=== PATIENT | male | born 1935 | race Caucasian/White ===

== ENCOUNTER 2018-03-12 06:34 | Emergency (ER) | payer MEDICARE, SELFPAY ==
[2018-03-12 06:37] VITALS: BP 157/100; PULSE 53; RESP 20; TEMP 36.6; O2SAT 97; BMI 35.6
--- NOTE | 2018-03-12 06:44 | XR_ITS ---
XR chest 2V HISTORY: ITS.REASON: anxiety ORDERING PHYSICIAN: Cortez Knight MD PATIENT AGE: 82 years COMPARISON: 12/27/2015 FINDINGS: Unremarkable cardiovascular structures. Right hemidiaphragm is slightly elevated. Lungs are clear of acute infiltrate. There is minimal nodularity along the left heart border inferiorly of questionable clinical significance. No acute bony anomalies. There are mild degenerative changes of the thoracic spine. Prior right shoulder replacement. IMPRESSION: No acute finding. Nodularity along left heart border inferiorly questioned clinical significance. Consider follow-up to confirm stability
[2018-03-12 07:00] LABS: Basophils % 0.3 % (0.1-2.0); Eosinophils # 0.1 K/mm3 (0.0-0.4); Eosinophils % 1.9 % (0.1-12.0); Hematocrit 41.2 % (42.0-52.0); Hemoglobin 13.4 g/dL (14.1-18.0); Lymphocytes # 2.1 K/mm3 (0.7-4.5); Lymphocytes % 27.4 K/mm3 (10-50); Mean Corpuscular HGB Conc 32.6 g/dL (31.8-35.4); Mean Corpuscular Volume 94.9 fl (80-94); Mean Platelet Volume 7.6 fl (7.4-10.4); Monocytes # 0.5 K/mm3 (0.1-1.0); Monocytes % 6.1 % (1.7-9.3); Neutrophils # 4.9 K/mm3 (1.8-7.8); Neutrophils % 64.3 % (37.0-80.0); Platelet Count 263 K/mm3 (142-424); Red Blood Count 4.34 M/mm3 (4.60-6.20); Red Cell Distribution Width 13.3 % (11.5-17.5); White Blood Count 7.6 K/mm3 (4.8-10.8)
[2018-03-12 07:11] LABS: Alanine Aminotransferase 23 U/L (12-78); Albumin Level 3.7 gm/dL (3.4-5.0); Alkaline Phosphatase 81 U/L (46-116); Anion Gap 14.6 mEq/L (5-15); Aspartate Amino Transferase 17 U/L (15-37); Bilirubin,Total 0.6 mg/dL (0.2-1.0); Blood Urea Nitrogen 15 mg/dL (7-18); Calcium 8.5 mg/dL (8.5-10.1); Carbon Dioxide 24 mmol/L (21.0-32.0); Chloride 105 mmol/L (98-107); Creatinine Clearance Estimated 108 mL/min (0-300); Creatinine,Serum 1.03 mg/dL (0.70-1.30); Estimated Glomerular Filt Rate 69 ml/min (>60); GFR (African American) 84 ML/MIN (>60); Globulin 3.6 gm/dl (1.3-3.2); Glucose 117 mg/dL (74-106); Potassium 3.6 mmoL/L (3.5-5.1); Sodium 140 mmol/L (136-145); Total Protein,Serum 7.3 gm/dL (6.4-8.2)
[2018-03-12 07:23] LABS: CKMB Relative Index 1.8 U/L (0-4.0); Creatine Kinase 124 U/L (39-308); Creatine Kinase MB 2.2 ng/ml (0.0-3.6); Troponin I < 0.02 ng/ml (0.00-0.06)
[2018-03-12 08:05] VITALS: BP 142/75; PULSE 55; RESP 18; O2SAT 95
--- NOTE | 2018-03-12 08:07 | HMH.EDDIZZ ---
ED Disposition Condition on Discharge: Good - Critical Care Critical Care Time: No <Cortez Knight - Last Filed: 03/12/18 08:20> Condition on Discharge: Fair - Critical Care Critical Care Time: No <Tila Michelle - Last Filed: 03/12/18 09:51> Clinical Impression: Dizziness, Bradycardia, Polypharmacy, Depression, Abdominal pain of unknown etiology, Ethmoid sinusitis, Gaseous distention of intestine determined by X-ray Disposition: Home, Self-Care Additional Instructions: 1- plenty of Gatorade. 2- follow up with Dr Paige. 3- outpatient GB US. 4- see [facility] 6th floor. 5- return for fever, vomiting, or if abdominal pain returns. 6-given copies of EKG x-ray reports and lab reports to review with Dr. paige on 1030 AM appointment today as scheduled. Prescriptions: Simethicone [Bicarsim] 80 mg PO Q6HP PRN #24 tab PRN Reason: Dyspnea Amoxicillin [Amoxicillin 500mg Cap] 500 mg PO TID #21 cap Referrals: Sulma Paige MD [Staff Physician] - Attestation: On 03/12/18, the high probability of a clinically significant, sudden or life threatening deterioration of the following system(s) required my full and direct attention, intervention and personal management. The time I documented below is in addition to time spent performing reported procedures but includes the following listed in this critical care notation. Medical Decision Making - Medical Records Medical records reviewed: Yes: I reviewed the patient's medical records. - Jose Antonio Inquiry Pt receiving controlled substance: No - Lab Data Lab results reviewed: Yes: I reviewed the patient's lab results. Result diagrams: 03/12/18 06:50 03/12/18 06:50 - Radiology Data #1 Image(s): Chest Image Reviewed: Yes I reviewed the patient's radiology image Preliminary Findings: Normal/NAD - ECG Data Tracing #1 Arrhythmias present: sinus renée Ischemic changes: non-specific ST-T wave changes <Cortez Knight - Last Filed: 03/12/18 08:20> - Jose Antonio Inquiry Pt receiving controlled substance: No Jose Antonio was queried for this patient: No - Lab Data Result diagrams: 03/12/18 06:50 03/12/18 06:50 - Radiology Data #1 Image(s): Chest, Abdomen Image Reviewed: Yes I have reviewed radiologist's interpretation Preliminary Findings: Abnormal - CT Data CT Scan: Head Time Received: 09:[address] Reviewed: Yes: I have viewed the radiologist's interpretation Preliminary Findings: Normal/NAD <Tila Michelle - Last Filed: 03/12/18 09:51> Vital Signs: 03/12/18 06:37 03/12/18 08:05 Temperature 97.8 F Temperature Source Oral Pulse Rate [Right Radial] 53 L 55 L Respiratory Rate 20 18 Blood Pressure [Right Arm] 157/100 142/75 Blood Pressure Mean [Right Arm] 119 97 Blood Pressure Source [Right Arm] Automatic Cuff Blood Pressure Position [Right Arm] Sitting 02 Sat by Pulse Oximetry 97 95 Oxygen Delivery Method Room Air - Lab Data Lab Results 03/12/18 06:50: WBC 7.6, RBC 4.34 L, Hgb 13.4 L, Hct 41.2 L, MCV 94.9 H, MCH 31.0, MCHC 32.6, RDW 13.3, Plt Count 263, MPV 7.6, Neut % (Auto) 64.3, Lymph % (Auto) 27.4, [place] % (Auto) 6.1, Eos % (Auto) 1.9, Baso % (Auto) 0.3, Neut # (Auto) 4.9, Lymph # (Auto) 2.1, [place] # (Auto) 0.5, Eos # (Auto) 0.1, Baso # (Auto) 0.0 03/12/18 06:50: Sodium 140, Potassium 3.6, Chloride 105, Carbon Dioxide 24, Anion Gap 14.6, BUN 15, Creatinine 1.03, Estimated Creat Clear 108, Estimated GFR 69, Est GFR ( Amer) 84, Glucose 117 H, Calcium 8.5, Total Bilirubin 0.6, AST 17, ALT 23, Alkaline Phosphatase 81, Total Protein 7.3, Albumin 3.7, Globulin 3.6 H, Albumin/Globulin Ratio 1.0 L 03/12/18 06:50: Total Creatine Kinase 124, CK-MB (CK-2) 2.2, CK-MB (CK-2) Rel Index 1.8, Troponin I < 0.02 03/12/18 07:56: POC Glucose 129 H 03/12/18 08:20: Urine Color Yellow, Urine Appearance Clear, Urine pH 6.5, Ur Specific [place] 1.010, Urine Protein Negative, Urine Glucose (UA) Negative, Urine Ketones Negative, Urine Bl
--- NOTE | 2018-03-12 08:11 | ED_ITS ---
ED Disposition Condition on Discharge: Good - Critical Care Critical Care Time: No <Cortez Knight - Last Filed: 03/12/18 08:20> Condition on Discharge: Fair - Critical Care Critical Care Time: No <Tila Michelle - Last Filed: 03/12/18 09:51> Clinical Impression: Dizziness, Bradycardia, Polypharmacy, Depression, Abdominal pain of unknown etiology, Ethmoid sinusitis, Gaseous distention of intestine determined by X-ray Disposition: Home, Self-Care Additional Instructions: 1- plenty of Gatorade. 2- follow up with Dr Paige. 3- outpatient GB US. 4- see [facility] 6th floor. 5- return for fever, vomiting, or if abdominal pain returns. 6-given copies of EKG x-ray reports and lab reports to review with Dr. paige on 1030 AM appointment today as scheduled. Prescriptions: Simethicone [Bicarsim] 80 mg PO Q6HP PRN #24 tab PRN Reason: Dyspnea Amoxicillin [Amoxicillin 500mg Cap] 500 mg PO TID #21 cap Referrals: Sulma Paige MD [Staff Physician] - Attestation: On 03/12/18, the high probability of a clinically significant, sudden or life threatening deterioration of the following system(s) required my full and direct attention, intervention and personal management. The time I documented below is in addition to time spent performing reported procedures but includes the following listed in this critical care notation. Medical Decision Making - Medical Records Medical records reviewed: Yes: I reviewed the patient's medical records. - Jose Antonio Inquiry Pt receiving controlled substance: No - Lab Data Lab results reviewed: Yes: I reviewed the patient's lab results. Result diagrams: 03/12/18 06:50 03/12/18 06:50 - Radiology Data #1 Image(s): Chest Image Reviewed: Yes I reviewed the patient's radiology image Preliminary Findings: Normal/NAD - ECG Data Tracing #1 Arrhythmias present: sinus renée Ischemic changes: non-specific ST-T wave changes <Cortez Knight - Last Filed: 03/12/18 08:20> - Jose Antonio Inquiry Pt receiving controlled substance: No Jose Antonio was queried for this patient: No - Lab Data Result diagrams: 03/12/18 06:50 03/12/18 06:50 - Radiology Data #1 Image(s): Chest, Abdomen Image Reviewed: Yes I have reviewed radiologist's interpretation Preliminary Findings: Abnormal - CT Data CT Scan: Head Time Received: 09:[address] Reviewed: Yes: I have viewed the radiologist's interpretation Preliminary Findings: Normal/NAD <Tila Michelle - Last Filed: 03/12/18 09:51> Vital Signs: 03/12/18 06:37 03/12/18 08:05 Temperature 97.8 F Temperature Source Oral Pulse Rate [Right Radial] 53 L 55 L Respiratory Rate 20 18 Blood Pressure [Right Arm] 157/100 142/75 Blood Pressure Mean [Right Arm] 119 97 Blood Pressure Source [Right Arm] Automatic Cuff Blood Pressure Position [Right Arm] Sitting 02 Sat by Pulse Oximetry 97 95 Oxygen Delivery Method Room Air - Lab Data Lab Results 03/12/18 06:50: WBC 7.6, RBC 4.34 L, Hgb 13.4 L, Hct 41.2 L, MCV 94.9 H, MCH 31.0, MCHC 32.6, RDW 13.3, Plt Count 263, MPV 7.6, Neut % (Auto) 64.3, Lymph % ( Auto) 27.4, Yell % (Auto) 6.1, Eos % (Auto) 1.9, Baso % (Auto) 0.3, Neut # (Auto ) 4.9, Lymph # (Auto) 2.1, Yell # (Auto) 0.5, Eos # (Auto) 0.1, Baso # (Auto) 0.0 03/12/18 06:50: Sodium 140, Potassium 3.6, Chloride 105, Carbon Dioxide 24, Anion Gap 14.6, BUN 15, Cr
[2018-03-12 08:15] LABS: POC Glucose,Bedside 129 (70-110)
[2018-03-12 08:28] LABS: Appearance,Urine CLEAR (Clear); Bilirubin,Urine Negative (Negative); Blood, Urine Negative (Negative); Color,Urine YELLOW (Yellow); Glucose,Urine (UA) Negative (Negative); Ketones,Urine Negative (Negative); Leukocyte Esterase,Urine Negative (Negative); Microscopic, Urine URINE MICROSCOPIC (MICROSCOPIC); Nitrate,Urine Negative (Negative); PH,Urine 6.5 (5.0-8.5); Protein,Urine Negative (Negative); Urobilinogen,Urine 0.2 EU/dl (0.2)
--- NOTE | 2018-03-12 08:44 | CT_ITS ---
CT head/brain wo con HISTORY: Dizziness ITS.REASON: dizziness ORDERING PHYSICIAN: Cortez Knight MD PATIENT AGE: 82 years COMPARISON: 01/07/2016 TECHNIQUE: Axial images obtained without contrast. Brain and bone windows reviewed. All CT scans at the facility use one or more dose reduction, viz: automated exposure control; ma/kV adjustment per patient size (including targeted exams where dose is matched to indication; i.e. head); or iterative reconstruction technique. FINDINGS: No midline shift, mass effect, intracranial hemorrhage, hydrocephalus, or extra-axial fluid collection is evident. There is generalized atrophy. The calvarium has an unremarkable appearance. No mastoid effusion. Mucosal thickening involves the ethmoid sinuses.. IMPRESSION: 1. No acute intracranial finding. 2. Ethmoid sinus disease
[2018-03-12 08:46] LABS: Bacteria,Urine Trace /lpf
--- NOTE | 2018-03-12 09:00 | XR_ITS ---
XR abdomen min 2V HISTORY: ITS.REASON: pain ORDERING PHYSICIAN: Cortez Knight MD PATIENT AGE: 82 years COMPARISON: None FINDINGS: Bowel gas pattern is nonspecific. There are gas-filled loops of small and large bowel. There is an air-fluid level of the small bowel in the mid abdominal region. Nonspecific. No free air evident. Postsurgical changes are present involving the lumbar spine. There are degenerative changes of the hips. IMPRESSION: Nonspecific bowel gas pattern with gas-filled loops of small and large bowel. The small bowel does not appear distended. There are a few air-fluid levels in the small bowel.
--- NOTE | 2018-03-12 09:11 | PC.NURSE ---
Pt to CT
[2018-03-12 09:49] LABS: Occult Blood,Stool Negative (Negative)
[2018-03-12 09:55] VITALS: BP 100/51; PULSE 64; RESP 20; TEMP 36.6; O2SAT 98
== END 2018-03-12 09:55 | disposition home or self-care (01) ==
PROVIDERS: Emergency Medicine; Emergency Provider Emergency Medicine; Family Provider Family Medicine
DX: J32.2 Chronic ethmoidal sinusitis (principal); K63.89 Other specified diseases of intestine; F32.9 Major depressive disorder, single episode, unspecified; I10 Essential (primary) hypertension; Z88.7 Allergy status to serum and vaccine; E11.9 Type 2 diabetes mellitus without complications; Z79.84 Long term (current) use of oral hypoglycemic drugs
CPT/HCPCS: 70450; 71046; 74019; 80053; 81001; 82272; 82550; 82553; 82962; 84484; 85025; 93005; 99284; G0328

== ENCOUNTER 2018-05-08 08:00 | Outpatient (RCR) | payer MEDICARE, SELFPAY | END 2018-05-08 11:34 | disposition home or self-care (01) | LOC: OT 08:00 | PROVIDERS: Family Provider Family Medicine; Visit Provider Orthopaedic Surgery | DX: Z97.11 Presence of artificial right arm (complete) (partial) (principal); M19.019 Primary osteoarthritis, unspecified shoulder; M19.011 Primary osteoarthritis, right shoulder; M75.101 Unspecified rotator cuff tear or rupture of right shoulder, not specified as traumatic | CPT/HCPCS: 97110; 97166 ==

== ENCOUNTER 2019-01-21 09:00 | Outpatient (RCR) | payer MEDICARE, SELFPAY | END 2019-01-21 16:00 | disposition home or self-care (01) | LOC: PT 09:00 | PROVIDERS: Visit Provider Family Medicine | DX: R26.89 Other abnormalities of gait and mobility (principal) | CPT/HCPCS: 97110; 97112; 97116; 97163 ==

== ENCOUNTER 2020-01-16 09:33 | Emergency (ER) | payer MEDICARE, SELFPAY ==
[2020-01-16 09:34] VITALS: BP 145/71; PULSE 67; RESP 19; TEMP 36.8; O2SAT 96; BMI 34.0
[2020-01-16 09:57] VITALS: BP 123/75; PULSE 70; O2SAT 95
--- NOTE | 2020-01-16 10:23 | HMH.EDWNDL ---
ED Disposition Clinical Impression: Finger laceration Qualifiers: Encounter type: initial encounter Finger: middle finger Damage to nail status: without damage Foreign body presence: without foreign body Laterality: left Qualified Code(s): S61.213A - Laceration without foreign body of left middle finger without damage to nail, initial encounter Disposition: Home, Self-Care Condition on Discharge: Good Instructions: DI for Laceration Repair Referrals: Natan Washington [Primary Care Provider] - 3 days - Critical Care Critical Care Time: No Attestation: On 01/16/20, the high probability of a clinically significant, sudden or life threatening deterioration of the following system(s) required my full and direct attention, intervention and personal management. The time I documented below is in addition to time spent performing reported procedures but includes the following listed in this critical care notation. Medical Decision Making - Medical Records Medical records reviewed: Yes: I reviewed the patient's medical records. - Jose Antonio Inquiry Pt receiving controlled substance: No Vital Signs: 01/16/20 09:34 01/16/20 09:57 Temperature 98.3 F Temperature Source Oral Pulse Rate [Radial] 67 70 Respiratory Rate 19 Blood Pressure [Right Arm] 145/71 H 123/75 Blood Pressure Mean [Right Arm] 95 91 Blood Pressure Source [Right Arm] Automatic Cuff Automatic Cuff Blood Pressure Position [Right Arm] Sitting Sitting 02 Sat by Pulse Oximetry 96 95 Oxygen Delivery Method Room Air Room Air Medical Decision Narrative: Laceration with no tendon involvement, no foreign body. Repaired as below. Discharged home to follow-up outpatient with primary care provider for wound check and suture removal. Wound/Laceration HPI - General Chief Complaint: Wound/Laceration Stated Complaint: [id number] lac to middle finger,left hand Time Seen by Provider: 01/16/20 10:03 Mode of Arrival: Ambulatory Source of Information: Patient Limitations: No Limitations Description of Symptoms (Recalled from ER Triage Doc. by RN): Cut left middl finger - History of Present Illness HPI narrative: This is an 84-year-old male ambidextrous who presents to the emergency department for evaluation of laceration on the palmar surface of the left long finger occurred just prior to arrival. He was using a tool at home and accidentally caught his finger in the tool. He has not had a recent tetanus update, but has this listed as an allergy. He does not complain of any decreased mobility that finger. - Related Data Home Medications Medication Instructions Recorded Confirmed furosemide 20 mg tablet 20 mg PO DAILY PRN 90 Days tab 01/31/18 10/17/19 Tamsulosin HCl [Flomax 0.4mg 0.4 mg PO HS 03/12/18 10/17/19 capsule] buspirone 5 mg tablet 5 mg PO DAILY 30 Days #90 04/08/18 10/17/19 Sitagliptin Phosphate [Januvia 100 mg PO DAILY 09/14/18 10/17/19 100mg tablet] atorvastatin 40 mg tablet 20 mg PO ONCE 90 Days #45 tab 12/12/18 10/17/19 gabapentin 800 mg tablet 800 mg PO BID 90 Days #180 tab 12/12/18 10/17/19 glipizide 5 mg tablet, extended 5 mg PO DAILY 90 Days #90 tab 12/12/18 10/17/19 release 24 hr potassium chloride 20 mEq 1 tab PO DAILY 90 Days #90 tab 12/12/18 10/17/19 tablet,extended release(part/cryst) Allergies Allergy/AdvReac Type Severity Reaction Status Date / Time tetanus and diphtheria Allergy Intermediate I-HIVES Verified 10/17/19 08:21 toxoids [TETANUS & DIPHTHERIA TOXOIDS] [facility] History - Hepatitis A Screen Drug use history?: No High risk sexual behaviors?: No History of sexually transmitted infection?: No Currently employed?: No Childcare worker?: No Do you have indoor plumbing?: Yes Do you have electricity?: Yes Attestation statement:: This patient has been screened for Hepatitis A risk factors. I have reviewed the patient's past medical history: Yes Medical History: Reports:: Anxiety, Depr
[2020-01-16 10:37] VITALS: BP 120/85; PULSE 85; RESP 20; TEMP 36.8; O2SAT 98
== END 2020-01-16 10:50 | disposition home or self-care (01) ==
PROVIDERS: Emergency Provider Emergency Medicine; PCP Family Medicine
DX: S61.213A Laceration without foreign body of left middle finger without damage to nail, initial encounter (principal); W26.9XXA Contact with unspecified sharp object(s), initial encounter; Y92.019 Unspecified place in single-family (private) house as the place of occurrence of the external cause; E11.9 Type 2 diabetes mellitus without complications; F41.8 Other specified anxiety disorders; E78.5 Hyperlipidemia, unspecified; I10 Essential (primary) hypertension; K21.9 Gastro-esophageal reflux disease without esophagitis; Z79.899 Other long term (current) drug therapy; Z88.7 Allergy status to serum and vaccine
CPT/HCPCS: 12001; 96372; 99282

== ENCOUNTER 2020-02-02 08:35 | Emergency (ER) | payer MEDICARE, SELFPAY ==
[2020-02-02 08:37] VITALS: BP 133/87; PULSE 87; RESP 18; TEMP 36.8; O2SAT 100; BMI 33.9
[2020-02-02 08:49] VITALS: BP 130/87; PULSE 80; RESP 20; TEMP 36.8; O2SAT 98
== END 2020-02-02 08:51 | disposition home or self-care (01) ==
PROVIDERS: Emergency Provider Family Medicine; PCP Family Medicine
DX: S61.213D Laceration without foreign body of left middle finger without damage to nail, subsequent encounter (principal)
CPT/HCPCS: 99281

== ENCOUNTER 2020-02-07 12:20 | Emergency (ER) | payer MEDICARE, SELFPAY ==
[2020-02-07 12:30] VITALS: BP 125/67; PULSE 66; RESP 18; TEMP 36.7; O2SAT 96; BMI 34.4
--- NOTE | 2020-02-07 12:42 | HMH.EDGENADL ---
ED Disposition Clinical Impression: Forehead laceration Qualifiers: Encounter type: initial encounter Qualified Code(s): S01.81XA - Laceration without foreign body of other part of head, initial encounter Disposition: Home, Self-Care Condition on Discharge: Good Instructions: DI for Laceration Repair, DI for Closed Head Injury Additional Instructions: Additional instructions for FACIAL LACERATION: Clean the wound daily with soap and water. You may shower. Apply a thin film of antibiotic ointment such as neosporin or triple antibiotic after showering. Avoid submerging the wound, no swimming. See your primary care physician or return to the [facility] in 5 days for suture removal. The [facility] is open 1 PM to 9 PM 7 days a week. Return if any signs of infection including increasing pain, pus drainage, swelling, redness, red streaks, or fever. Additional instructions for HEAD INJURY: See your physician as soon as possible for further evaluation. Return immediately if severe headache, vomiting, problems with vision or speech, numbness or weakness of the extremities, or severe neck pain. Referrals: Natan Washington [Primary Care Provider] - - Critical Care Critical Care Time: No Attestation: On 02/07/20, the high probability of a clinically significant, sudden or life threatening deterioration of the following system(s) required my full and direct attention, intervention and personal management. The time I documented below is in addition to time spent performing reported procedures but includes the following listed in this critical care notation. Medical Decision Making - Jose Antonio Inquiry Pt receiving controlled substance: No Vital Signs: 02/07/20 12:30 Temperature 98.1 F Temperature Source Oral Pulse Rate [Left Radial] 66 Respiratory Rate 18 Blood Pressure [Left Arm] 125/67 Blood Pressure Mean [Left Arm] 86 Blood Pressure Source [Left Arm] Automatic Cuff Blood Pressure Position [Left Arm] Sitting 02 Sat by Pulse Oximetry 96 Oxygen Delivery Method Room Air Orders (Tests/Meds): ED MEDICATIONS Discontinued Medications Generic Name Dose Route Start Last Admin Trade Name Freq PRN Reason Stop Dose Admin Lidocaine/Epinephrine 10 ml 02/07/20 12:52 02/07/20 13:02 Lidocaine 2% W/Epi 1:100,000 20ml Vial IJ 02/07/20 12:53 5 cc ONCE ONE Administration Neomycin/Polymyxin/Bacitracin 1 each 02/07/20 12:55 02/07/20 13:28 Neosporin Ointment 0.9gm Udp TP 02/07/20 12:56 1 each ONCE ONE Administration Tetanus/Diphtheria Toxoids 0.5 ml 02/07/20 13:31 02/07/20 13:44 Tenivac 0.5ml Syringe IM 02/07/20 13:32 0.5 ml .ONCE ONE Administration Medical Decision Narrative: Discussed tetanus immunization and prophylaxis with patient, son, and pharmacist Chirag. On further discussion, the patient says the last time he got a tetanus immunization, the doctor told him it was good for 10 years. His son thinks that this was 10 or more years ago. From this history, it sounds as if he has received tetanus toxoid without difficulty. His son would really like him to get tetanus immunization. The patient is agreeable to tetanus diphtheria immunization. I discussed this with Chirag who thinks this is appropriate. General Adult HPI - General Stated complaint: ao fell and cut head elbow and arm Time Seen by Provider: 02/07/20 12:42 Mode of Arrival: Ambulatory Limitations: No Limitations Description of Symptoms (Recalled from ER Triage Doc. by RN): Pt reports he was working on a mower was using pipe wrench lost his balance r/t the way he was pulling on the tool causing him to fall. Pt reports he hit his head on the work bench. Pt has an approx 1 inch laceration to R side of forehead, skin tear to R elbow and R forearm. Pt denies LOC. - History of Present Illness HPI narrative: The patient fell when his pipe wrench slipped and hit his head on a drill press and fell to the grou
--- NOTE | 2020-02-07 13:03 | PC.NURSE ---
at bedside suturing.
--- NOTE | 2020-02-07 13:30 | PC.NURSE ---
Dr Cooley speaking with Chirag in pharmacy at this time.
[2020-02-07 14:32] VITALS: BP 118/50; PULSE 66; RESP 16; TEMP 36.7; O2SAT 95
== END 2020-02-07 14:33 | disposition home or self-care (01) ==
PROVIDERS: Emergency Provider Emergency Medicine; PCP Family Medicine
DX: S01.81XA Laceration without foreign body of other part of head, initial encounter (principal); Z23 Encounter for immunization; W01.10XA Fall on same level from slipping, tripping and stumbling with subsequent striking against unspecified object, initial encounter; Y92.89 Other specified places as the place of occurrence of the external cause; S50.311A Abrasion of right elbow, initial encounter; S50.811A Abrasion of right forearm, initial encounter; F41.8 Other specified anxiety disorders; K21.9 Gastro-esophageal reflux disease without esophagitis; E11.9 Type 2 diabetes mellitus without complications; I10 Essential (primary) hypertension; E78.5 Hyperlipidemia, unspecified; Z87.442 Personal history of urinary calculi
CPT/HCPCS: 12013; 90471; 90714; 99281

== ENCOUNTER 2020-04-11 06:46 | Emergency (ER) | payer MEDICARE, SELFPAY ==
[2020-04-11] VITALS (8 sets, daily range): BP systolic 108–147; BP diastolic 59–93; PULSE 51–58; RESP 16–18; TEMP 36.6–36.8; O2SAT 93–98; BMI 34.0
--- NOTE | 2020-04-11 06:42 | ECG_ITS ---
APPROVED REPORT Exam: Resting ECG HR:52 bpm ECG Measurements Heart Rate 52 AXES WV 252 P 74 QRSd 132 QRS 7 QT 442 T 6 QTc 411 <Conclusion> Sinus bradycardia with 1st degree AV block Left bundle branch block Abnormal ECG Electronically signed by : Talon Ray, 04/12/2020 09:06:03
--- NOTE | 2020-04-11 06:57 | XR_ITS ---
PROCEDURE: XR CHEST 2V CLINICAL HISTORY: chest pain and pain down both arms COMPARISON: CXR1 CHEST-PORTABLE from 02/21/2013 CXR1 CHEST-PORTABLE from 12/27/2015 CXR2V XR chest 2V from 03/12/2018 CT ANGIO CHEST from 07/30/2019 FINDINGS: The cardiomediastinal silhouette and pulmonary vascularity are within normal limits. The lungs are clear without infiltrates, suspicious nodules, or pleural effusions. There are calcified hilar nodes bilaterally. No acute bony abnormalities. 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 IMPRESSION: No acute findings. Dictated by: Dr. Jens Benavides MD 04/11/2020 07:[address] Jens Benavides MD in [place] 04/11/2020 07:54
[2020-04-11 07:10] LABS: Basophils # 0.1 K/mm3 (0-0.2); Basophils % 0.6 % (0.1-2.0); Eosinophils # 0.2 K/mm3 (0.0-0.4); Eosinophils % 2.2 % (0.1-12.0); Hematocrit 39.2 % (42.0-52.0); Hemoglobin 13.8 g/dL (14.1-18.0); Mean Corpuscular HGB Conc 35.1 g/dL (31.8-35.4); Mean Corpuscular Hemoglobin 32.7 pg (27.0-31.2); Mean Corpuscular Volume 93.1 fl (80-94); Mean Platelet Volume 7.5 fl (7.4-10.4); Monocytes # 0.5 K/mm3 (0.1-1.0); Monocytes % 6.2 % (1.7-9.3); Neutrophils # 4.8 K/mm3 (1.8-7.8); Platelet Count 233 K/mm3 (142-424); Red Blood Count 4.22 M/mm3 (4.60-6.20); Red Cell Distribution Width 14.8 % (11.5-17.5); White Blood Count 8.6 K/mm3 (4.8-10.8)
--- NOTE | 2020-04-11 07:10 | PC.NURSE ---
pt to xray per wheelchair
[2020-04-11 07:15] LABS: Anion Gap 18.5 mEq/L (5-15); Blood Urea Nitrogen 36 mg/dl (9-20); Calcium 9.6 mg/dl (8.4-10.2); Carbon Dioxide 23 mmol/L (22.0-30.0); Chloride 102 mmol/L (98-107); Creatinine Clearance Estimated 79 mL/min (50-200); Estimated Glomerular Filt Rate 53 ml/min (>60); GFR (African American) 64 ML/MIN (>60); Glucose 133 mg/dl (74-100); Potassium 4.5 mmoL/L (3.5-5.1); Sodium 139 mmol/L (136-145)
--- NOTE | 2020-04-11 07:22 | PC.NURSE ---
family at bedside
--- NOTE | 2020-04-11 07:26 | HMH.EDCP ---
ED Disposition Clinical Impression: Atypical chest pain, Renal insufficiency Disposition: Home, Self-Care Condition on Discharge: Good Instructions: DI for Atypical Chest Pain Additional Instructions: see card in am for follow up Referrals: Natan Washington [Primary Care Provider] - - Critical Care Critical Care Time: No Attestation: On 04/11/20, the high probability of a clinically significant, sudden or life threatening deterioration of the following system(s) required my full and direct attention, intervention and personal management. The time I documented below is in addition to time spent performing reported procedures but includes the following listed in this critical care notation. Medical Decision Making - Medical Records Medical records reviewed: Yes: I reviewed the patient's medical records. - Jose Antonio Inquiry Pt receiving controlled substance: No Vital Signs: 04/11/20 06:48 04/11/20 06:57 04/11/20 07:03 Temperature 98.3 F Temperature Source Oral Pulse Rate [Left Radial] 51 L 52 L 58 L Respiratory Rate 16 Blood Pressure [Right Arm] 143/93 H 140/72 108/63 L Blood Pressure Mean [Right Arm] 109 94 78 Blood Pressure Source [Right Arm] Automatic Cuff Blood Pressure Position [Right Arm] Sitting Sitting Sitting 02 Sat by Pulse Oximetry 98 Oxygen Delivery Method Room Air 04/11/20 07:22 04/11/20 07:53 04/11/20 08:38 Temperature Temperature Source Pulse Rate [Left Radial] 52 L 53 L 51 L Respiratory Rate 18 Blood Pressure [Right Arm] 132/61 120/61 147/71 H Blood Pressure Mean [Right Arm] 84 80 96 Blood Pressure Source [Right Arm] Automatic Cuff Blood Pressure Position [Right Arm] Sitting Sitting Supine 02 Sat by Pulse Oximetry 96 96 97 Oxygen Delivery Method Room Air Room Air Room Air 04/11/20 09:09 Temperature Temperature Source Pulse Rate [Left Radial] 52 L Respiratory Rate 18 Blood Pressure [Right Arm] 117/59 L Blood Pressure Mean [Right Arm] 78 Blood Pressure Source [Right Arm] Automatic Cuff Blood Pressure Position [Right Arm] Supine 02 Sat by Pulse Oximetry 93 L Oxygen Delivery Method Room Air - Lab Data Lab results reviewed: Yes: I reviewed the patient's lab results. Lab Results 04/11/20 06:50: WBC 8.6, RBC 4.22 L, Hgb 13.8 L, Hct 39.2 L, MCV 93.1, MCH 32.7 H, MCHC 35.1, RDW 14.8, Plt Count 233, MPV 7.5, Neut % (Auto) 56.0, Lymph % (Auto) 35.0, [place] % (Auto) 6.2, Eos % (Auto) 2.2, Baso % (Auto) 0.6, Neut # (Auto) 4.8, Lymph # (Auto) 3.0, [place] # (Auto) 0.5, Eos # (Auto) 0.2, Baso # (Auto) 0.1 04/11/20 06:50: Sodium 139, Potassium 4.5, Chloride 102, Carbon Dioxide 23, Anion Gap 18.5 H, BUN 36 H, Creatinine 1.30 H, Estimated Creat Clear 79, Estimated GFR 53 L, Est GFR ( Amer) 64, Glucose 133 H, Calcium 9.6, Troponin I < 0.01 04/11/20 06:50: Amylase 41, Lipase 98 04/11/20 07:50: Urine Color Yellow, Urine Appearance Clear, Urine pH 6.5, Ur Specific [place] 1.015, Urine Protein Negative, Urine Glucose (UA) Negative, Urine Ketones Negative, Urine Blood Negative, Urine Nitrate Negative, Urine Bilirubin Negative, Urine Urobilinogen 0.2, Ur Leukocyte Esterase Negative, Urine RBC None, Urine WBC Occasional, Ur Squamous Epith Cells Occasional, Urine Bacteria None Result diagrams: 04/11/20 06:50 04/11/20 06:50 Orders (Tests/Meds): ED MEDICATIONS Generic Name Dose Route Start Last Admin Trade Name Freq PRN Reason Stop Dose Admin Sodium Chloride 8 ml 04/11/20 06:57 04/11/20 07:15 Sodium Chloride 0.9% 10ml Vial IV 05/11/20 06:56 8 ml NEEDED PRN Administration dilute pepcid Discontinued Medications Generic Name Dose Route Start Last Admin Trade Name Freq PRN Reason Stop Dose Admin Aspirin 324 mg 04/11/20 06:57 04/11/20 07:09 Aspirin 81mg Chewable Tablet PO 04/11/20 06:58 324 mg ONCE ONE Administration Famotidine 20 mg 04/11/20 06:57 04/11/20 07:15 Pepcid 20mg/2ml Vial IV 04/11/20 06:58 20 mg ONCE ONE Administrati
[2020-04-11 07:27] LABS: Troponin I < 0.01 ng/ml (0.00-0.034)
--- NOTE | 2020-04-11 07:28 | CT_ITS ---
PROCEDURE: CT ABDOMEN PELVIS WO CON CLINICAL INDICATION: epigastric pain for several hours COMPARISON: CT ANGIO ABDOMEN from 07/30/2019 TECHNIQUE: Axial images obtained with sagittal and coronal reformats. All CT scans at the facility use one or more dose reduction, viz: automated exposure control, ma/kV adjustment per patient size (including targeted exams where dose is matched to indication, i.e. head), or iterative reconstruction technique. FINDINGS: Lower thorax: There is minimal postinflammatory scarring in the lingula. There is no pleural fluid. ABDOMEN: Liver: No masses or biliary dilatation. Gallbladder: Nondistended. No radio opaque stones. Pancreas: No masses or peripancreatic fluid collections. Spleen: unremarkable Adrenals: unremarkable Kidneys/ureters: The kidneys are normal size. There is a stable benign-appearing cortical cyst upper pole right kidney measuring 5.0 both 4.2 by 4.4 cm with a slightly lobulated contour. ABDOMEN & PELVIS: Stomach bowel: The stomach duodenal sweep and small bowel appear normal. There is a moderate amount scattered stool and gas seen throughout the colon. Peritoneum: No abnormal fluid collections. No obvious inflammatory changes. No free air. Lymph nodes: No enlarged lymph nodes apparent. Vasculature: No evidence of abdominal aortic aneurysm. No retroperitoneal hemorrhage evident. Bones: There are pedicle screws and metallic brackets fusing L2 and L3. There are mild multilevel degenerate changes of the lower thoracic and upper lumbar spine. There are moderate degenerative changes in both hips. PELVIS: Reproductive: unremarkable Bladder: The urinary bladder is decompressed, the prostate is normal in size. Appendix: Post appendectomy IMPRESSION: No acute abdominal or pelvic pathology identified Dictated by: Dr. Jens Benavides MD 04/11/2020 08:[address] Jens Benavides MD in [facility] 04/11/2020 08:54
[2020-04-11 07:39] LABS: Amylase 41 U/L (30-110); Lipase 98 U/L (23-300)
--- NOTE | 2020-04-11 07:43 | PC.NURSE ---
pt to restroom
[2020-04-11 07:56] LABS: Microscopic, Urine URINE MICROSCOPIC (MICROSCOPIC)
[2020-04-11 07:57] LABS: Appearance,Urine CLEAR (Clear); Bilirubin,Urine Negative (Negative); Blood, Urine Negative (Negative); Color,Urine YELLOW (Yellow); Glucose,Urine (UA) Negative (Negative); Ketones,Urine Negative (Negative); Leukocyte Esterase,Urine Negative (Negative); Nitrate,Urine Negative (Negative); PH,Urine 6.5 (5.0-8.5); Protein,Urine Negative (Negative); Specific Gravity, Urine 1.015 (1.005-1.030); Urobilinogen,Urine 0.2 EU/dl (0.2)
[2020-04-11 08:00] LABS: Squamous Epithelial Cell,Urine Occasional #/hpf (0-5); WBC,Urine Occasional #/hpf (0-3)
--- NOTE | 2020-04-11 08:02 | PC.NURSE ---
pt going to rad
--- NOTE | 2020-04-11 08:17 | PC.NURSE ---
pt back from rad
--- NOTE | 2020-04-11 08:34 | PC.NURSE ---
pt to restroom
--- NOTE | 2020-04-11 09:00 | PC.NURSE ---
family at bedside updated on plan of care.
== END 2020-04-11 09:59 | disposition home or self-care (01) ==
PROVIDERS: Emergency Provider Emergency Medicine; PCP Family Medicine
DX: R07.89 Other chest pain (principal); N28.9 Disorder of kidney and ureter, unspecified; E11.65 Type 2 diabetes mellitus with hyperglycemia; F41.8 Other specified anxiety disorders; K21.9 Gastro-esophageal reflux disease without esophagitis; E78.5 Hyperlipidemia, unspecified; I10 Essential (primary) hypertension
CPT/HCPCS: 71046; 74176; 80048; 81001; 82150; 83690; 84484; 85025; 93005; 96365; 96375; 99284

== ENCOUNTER 2020-10-07 12:53 | Emergency (ER) | payer MEDICARE, SELFPAY ==
[2020-10-07 12:56] VITALS: BP 134/47; PULSE 59; RESP 20; TEMP 37.1; O2SAT 94; BMI 34.0
--- NOTE | 2020-10-07 13:10 | XR_ITS ---
PROCEDURE: XR CHEST PORTABLE CLINICAL HISTORY: SOB Shortness of breath and fever COMPARISON: CR CXR1 CHEST-PORTABLE from 12/27/2015 CR CXR2V XR chest 2V from 03/12/[address] ANGIO CHEST from 07/30/2019 CR XR CHEST 2V from 04/11/2020 FINDINGS: The cardiomediastinal silhouette and pulmonary vascularity are within normal limits. Along the left heart border there is an area of increased soft tissue density inferiorly unchanged possibly due to a fat pad. Right hemidiaphragm is elevated. No lobar consolidation or collapse. Total right shoulder prosthesis is noted. No acute bony abnormalities. IMPRESSION: As above, no acute finding Dictated by: Jeronimo Perez MD 10/07/2020 14:31 Jeronimo Perez MD in [facility] 10/07/2020 14:31
[2020-10-07 13:32] LABS: Basophils % 0.3 % (0.1-2.0); Eosinophils # 0.1 K/mm3 (0.0-0.4); Eosinophils % 0.6 % (0.1-12.0); Hematocrit 38.5 % (42.0-52.0); Hemoglobin 12.9 g/dL (14.1-18.0); Lymphocytes # 2.3 K/mm3 (0.7-4.5); Mean Corpuscular HGB Conc 33.6 g/dL (31.8-35.4); Mean Corpuscular Hemoglobin 33.4 pg (27.0-31.2); Mean Corpuscular Volume 99.3 fl (80-94); Mean Platelet Volume 8.3 fl (7.4-10.4); Monocytes # 0.5 K/mm3 (0.1-1.0); Monocytes % 4.3 % (1.7-9.3); Neutrophils # 7.9 K/mm3 (1.8-7.8); Neutrophils % 73.8 % (37.0-80.0); Platelet Count 387 K/mm3 (142-424); Red Blood Count 3.87 M/mm3 (4.60-6.20); Red Cell Distribution Width 14.1 % (11.5-17.5); White Blood Count 10.8 K/mm3 (4.8-10.8)
[2020-10-07 13:39] LABS: Adenovirus,PCR Not Detected (NotDetected); Bordetella Pertussis Not Detected (NotDetected); Chlamydophila Pneumoniae, PCR Not Detected (NotDetected); Chloride 99 mmol/L (98-107); Coronavirus 19, PCR Not Detected (NotDetected); Coronavirus 229E Not Detected (NotDetected); Coronavirus NL63 Not Detected (NotDetected); Coronavirus OC43 Not Detected (NotDetected); Coronovirus HKU1,PCR Not Detected (NotDetected); Human Metapneumovirus Not Detected (NotDetected); Influenza A, PCR Not Detected (NotDetected); Influenza AH1, 2009 Not Detected (NotDetected); Influenza AH1, PCR Not Detected (NotDetected); Influenza AH3,PCR Not Detected (NotDetected); Influenza B, PCR Not Detected (NotDetected); Mycoplasma Pneumoniae, PCR Not Detected (NotDetected); Parainfluenza 1, PCR Not Detected (NotDetected); Parainfluenza 2, PCR Not Detected (NotDetected); Parainfluenza 3, PCR Not Detected (NotDetected); Parainfluenza 4, PCR Not Detected (NotDetected); Potassium 4.1 mmoL/L (3.5-5.1); Respiratory Syncytial Virus Not Detected (NotDetected); Rhinovirus/Enterovirus Not Detected (NotDetected); Sodium 133 mmol/L (136-145)
[2020-10-07 13:41] LABS: Alanine Aminotransferase 14 U/L (12-78); Alkaline Phosphatase 113 U/L (38-126); Aspartate Amino Transferase 16 U/L (17-59); Bilirubin,Total 0.7 mg/dl (0.2-1.3); Blood Urea Nitrogen 24 mg/dl (9-20); Creatinine Clearance Estimated 102 mL/min (50-200); Estimated Glomerular Filt Rate 72 ml/min (>60); GFR (African American) 87 ML/MIN (>60); Lactic Acid 1.8 mmol/L (0.7-2.1)
[2020-10-07 13:42] LABS: Albumin Level 3.9 g/dl (3.5-5.0); Albumin/Globulin Ratio 1.1 (1.1-1.8); Anion Gap 10.1 mEq/L (5-15); Calcium 9.4 mg/dl (8.4-10.2); Carbon Dioxide 28 mmol/L (22.0-30.0); Globulin 3.5 g/dL (1.3-3.2); Total Protein,Serum 7.4 g/dl (6.3-8.2)
[2020-10-07 13:45] VITALS: BP 122/55; PULSE 61; O2SAT 96
[2020-10-07 13:47] LABS: Glucose 401 mg/dl (74-100)
--- NOTE | 2020-10-07 13:47 | PC.NURSE ---
DR DIAZ INFORMED OF CRITICAL GLUCOSE
[2020-10-07 13:57] LABS: Troponin I < 0.01 ng/ml (0.00-0.034)
[2020-10-07 14:02] LABS: Coronavirus 19 IgG Antibody Negative (Negative); Coronavirus 19 IgM Antibody Negative (Negative)
--- NOTE | 2020-10-07 14:03 | ECG_ITS ---
APPROVED REPORT Exam: Resting ECG HR:57 bpm ECG Measurements Heart Rate 57 AXES [place] 208 P 61 QRSd 136 QRS -37 QT 426 T 93 QTc 414 Conclusion Sinus bradycardia Left axis deviation Nonspecific intraventricular block Abnormal QRS-T angle, consider primary T wave abnormality Abnormal ECG Electronically signed by : Gianni Galeano, 10/08/2020 18:07:44
[2020-10-07 14:11] LABS: Microscopic, Urine URINE MICROSCOPIC (MICROSCOPIC)
[2020-10-07 14:12] LABS: Appearance,Urine CLEAR (Clear); Bilirubin,Urine Negative (Negative); Blood, Urine Negative (Negative); Color,Urine YELLOW (Yellow); Glucose,Urine (UA) 3+ (Negative); Ketones,Urine Negative (Negative); Leukocyte Esterase,Urine Negative (Negative); Nitrate,Urine Negative (Negative); Protein,Urine Negative (Negative); Specific Gravity, Urine 1.015 (1.005-1.030); Urobilinogen,Urine 0.2 EU/dl (0.2)
[2020-10-07 14:38] VITALS: BP 148/63; PULSE 56; O2SAT 96
[2020-10-07 15:01] VITALS: BP 142/55; PULSE 57; O2SAT 97
[2020-10-07 15:31] VITALS: BP 131/47; PULSE 59; O2SAT 97
--- NOTE | 2020-10-07 15:33 | HMH.EDGENADL ---
ED Disposition Clinical Impression: Cellulitis Qualifiers: Site of cellulitis: extremity Site of cellulitis of extremity: lower extremity Laterality: right Qualified Code(s): L03.115 - Cellulitis of right lower limb Diabetes Qualifiers: Diabetes mellitus type: type 2 Diabetes mellitus intermediate insulin use: without long wall shear operator use Diabetes mellitus complication status: without complication Qualified Code(s): E11.9 - Type 2 diabetes mellitus without complications Disposition: Home, Self-Care Condition on Discharge: Fair Instructions: Cellulitis, Type 2 Diabetes Additional Instructions: We have reviewed your vital signs and they showed no acute findings; blood pressure is 148/63; oxygen saturation 96%; temperature is 98.8; chest x-ray shows no acute findings; CBC shows no acute findings; CMP is essentially normal except for blood sugar of 401; urinalysis shows 3+ glucose; Covid test is negative; flu test is also negative. You do have cellulitis of right leg; plan is to send home with antibiotic for the cellulitis on right leg; also giving insulin 6 units at this time for the elvated blood sugar; Please follow-up with your family doctor as you need to be on an alternative medication to Metformin as blood sugar appears to be high with an A1c of also relatively high Prescriptions: clindamycin HCL [Clindamycin HCl] 300 mg PO TID 10 Days #30 cap Prescription Printed Referrals: Natan Washington [Primary Care Provider] - Time of Disposition: 15:48 - Critical Care Critical Care Time: No Attestation: On 10/07/20, the high probability of a clinically significant, sudden or life threatening deterioration of the following system(s) required my full and direct attention, intervention and personal management. The time I documented below is in addition to time spent performing reported procedures but includes the following listed in this critical care notation. Medical Decision Making - Medical Records Medical records reviewed: Yes: I reviewed the patient's medical records. MR Comment: 84-year-old male here with his son with a complaint that he was not feeling well and had a temperature and wanted to be evaluated he also mentioned that he has a cellulitic area on his right buttock; He has history of diabetes but according to his son his family doctor took him off of his diabetic medication, Metformin because it was giving him adverse symptoms; currently he is not on any medication for diabetes. We have reviewed patient's vital signs and they showed no acute findings blood pressure is 148/63 oxygen saturation 96% temperature is 98.8 chest x-ray shows no acute findings CBC shows no acute findings CMP is essentially normal except for blood sugar of 401 urinalysis shows 3+ glucose Covid test is negative flu test is also negative I have really given reassurance to patient and his son; plan is to send him home with antibiotic for the cellulitis on his right leg; also giving him insulin 6 units at this time; advised to follow-up with his family doctor as soon as possible because he needs to be on an alternative medication to Metformin as his blood sugar appears to be high - Jose Antonio Inquiry Pt receiving controlled substance: No Vital Signs: 10/07/20 12:56 10/07/20 13:45 10/07/20 14:38 Temperature 98.8 F Temperature Source Oral Pulse Rate [Radial] 59 L 61 56 L Respiratory Rate 20 Blood Pressure [Right Arm] 134/47 L 122/55 L 148/63 H Blood Pressure Mean [Right Arm] 76 77 91 Blood Pressure Source [Right Arm] Automatic Cuff Automatic Cuff Blood Pressure Position [Right Arm] Sitting Sitting Sitting 02 Sat by Pulse Oximetry 94 L 96 96 Oxygen Delivery Method Room Air Room Air Room Air - Lab Data Lab results reviewed: Yes: I reviewed the patient's lab results. Lab Results 10/07/20 13:15: WBC 10.8, RBC 3.87 L, Hgb 12.9 L, Hct 38.5 L, MCV 99.3 H, MCH 33.4 H, MCHC 33.6, RDW 14.1, Plt Count 387, MPV 8.3, Neut % (Auto) 73.8, Lymph % (Auto
[2020-10-07 16:38] VITALS: BP 154/60; BP 154/80; PULSE 64; PULSE 65; RESP 20; TEMP 37.1; O2SAT 96
== END 2020-10-07 16:40 | disposition home or self-care (01) ==
PROVIDERS: Emergency Provider Emergency Medicine; PCP Family Medicine
DX: L03.115 Cellulitis of right lower limb (principal); E11.65 Type 2 diabetes mellitus with hyperglycemia; I10 Essential (primary) hypertension; E78.5 Hyperlipidemia, unspecified; K21.9 Gastro-esophageal reflux disease without esophagitis; F41.8 Other specified anxiety disorders; Z01.84 Encounter for antibody response examination; Z88.7 Allergy status to serum and vaccine
CPT/HCPCS: 71045; 80053; 81001; 83605; 84484; 85025; 86328; 87040; 87581; 87633; 87798; 93005; 96367; 96374; 99283; U0003

== ENCOUNTER 2021-01-01 09:37 | Emergency (ER) | payer MEDICARE, SELFPAY ==
[2021-01-01] VITALS (7 sets, daily range): BP systolic 118–144; BP diastolic 62–90; PULSE 72–80; RESP 18; TEMP 37.4; O2SAT 92–95; BMI 33.8
--- NOTE | 2021-01-01 10:06 | PC.NURSE ---
Dr Corbin at bedside
--- NOTE | 2021-01-01 10:08 | XR_ITS ---
PROCEDURE: XR CHEST 2V CLINICAL HISTORY: palpitation COMPARISON: CR CXR2V XR chest 2V from 03/12/[address] ANGIO CHEST from 07/30/2019 CR XR CHEST 2V from 04/11/2020 CR XR CHEST PORTABLE from 10/07/2020 FINDINGS: The cardiomediastinal silhouette and pulmonary vascularity are within normal limits. The lungs are clear without infiltrates, suspicious nodules, or pleural effusions. Slightly elevated right hemidiaphragm not significantly changed. Prior right shoulder replacement. Mild degenerative changes thoracic IMPRESSION: No acute findings. Dictated by: Jeronimo Perez MD 01/01/2021 12:47 Jeronimo Perez MD in [facility] 01/01/2021 12:47
--- NOTE | 2021-01-01 10:09 | HMH.EDGENADL ---
ED Disposition Clinical Impression: Muscular aches, Sinus congestion Headache Qualifiers: Headache type: unspecified Headache chronicity pattern: unspecified pattern Intractability: not intractable Qualified Code(s): R51.9 - Headache, unspecified Disposition: Home, Self-Care Condition on Discharge: Good Instructions: Allergic Rhinitis, DI for Sinus Headache, DI for Headache Additional Instructions: You have been evaluated for muscle aches and headaches. Take anti-inflammatories like ibuprofen. Continue taking allergy medication. Return to the hospital for Dupixent injection on Sunday, as scheduled. Statin drugs can cause muscle aches and weakness, discuss this medication with your doctor. Follow-up with your primary care doctor in 1 to 2 days for symptom recheck. Return to the emergency department for any new or worsening symptoms, chest pain, headache, vision changes, numbness or weakness in your arms or legs. Referrals: Natan Washington [Primary Care Provider] - Time of Disposition: 12:54 - Critical Care Critical Care Time: No Attestation: On 01/01/21, the high probability of a clinically significant, sudden or life threatening deterioration of the following system(s) required my full and direct attention, intervention and personal management. The time I documented below is in addition to time spent performing reported procedures but includes the following listed in this critical care notation. Medical Decision Making - Medical Records Medical records reviewed: Yes: I reviewed the patient's medical records. - Jose Antonio Inquiry Pt receiving controlled substance: No Vital Signs: 01/01/21 09:37 01/01/21 11:04 01/01/21 11:07 Temperature 99.4 F Temperature Source Oral Pulse Rate 75 76 Pulse Rate [Radial] 80 Respiratory Rate 18 Blood Pressure 124/73 Blood Pressure [Right Arm] 125/62 Blood Pressure Mean Blood Pressure Mean [Right Arm] 83 Blood Pressure Source Automatic Cuff Blood Pressure Position Sitting Blood Pressure Position [Right Arm] Sitting 02 Sat by Pulse Oximetry 93 L 95 95 Oxygen Delivery Method Room Air Room Air 01/01/21 12:58 01/01/21 13:02 01/01/21 13:06 Temperature Temperature Source Pulse Rate 72 77 76 Pulse Rate [Radial] Respiratory Rate Blood Pressure 118/79 144/70 H 119/90 Blood Pressure [Right Arm] Blood Pressure Mean 83 94 99 Blood Pressure Mean [Right Arm] Blood Pressure Source Blood Pressure Position Blood Pressure Position [Right Arm] 02 Sat by Pulse Oximetry 95 92 L 95 Oxygen Delivery Method 01/01/21 13:21 Temperature 99.4 F Temperature Source Oral Pulse Rate 76 Pulse Rate [Radial] Respiratory Rate 18 Blood Pressure 119/90 Blood Pressure [Right Arm] Blood Pressure Mean Blood Pressure Mean [Right Arm] Blood Pressure Source Automatic Cuff Blood Pressure Position Sitting Blood Pressure Position [Right Arm] 02 Sat by Pulse Oximetry Oxygen Delivery Method Room Air - Lab Data Lab Results 01/01/21 10:35: WBC 10.2, RBC 3.96 L, Hgb 12.9 L, Hct 38.7 L, MCV 97.6 H, MCH 32.7 H, MCHC 33.4, RDW 14.4, Plt Count 211, MPV 9.0, Neut % (Auto) 69.4, Lymph % (Auto) 23.3, [place] % (Auto) 5.8, Eos % (Auto) 1.2, Baso % (Auto) 0.3, Neut # (Auto) 7.1, Lymph # (Auto) 2.4, [place] # (Auto) 0.6, Eos # (Auto) 0.1, Baso # (Auto) 0.0 01/01/21 10:35: Sodium 136, Potassium 3.8, Chloride 103, Carbon Dioxide 25, Anion Gap 11.8, BUN 23 H, Creatinine 0.90, Estimated Creat Clear 100, Estimated GFR 81, Est GFR ( Amer) 98, Glucose 174 H, Calcium 9.1, Total Bilirubin 0.5, AST 20, ALT 16, Alkaline Phosphatase 86, Total Creatine Kinase 45 L, Troponin I < 0.01, C-Reactive Protein 54.4 H, Total Protein 7.0, Albumin 4.0, Globulin 3.0, Albumin/Globulin Ratio 1.3 01/01/21 10:35: NT-Pro-B Natriuret Pep 260 01/01/21 11:23: Urine Color Yellow, Urine Appearance Clear, Urine pH 5.5, Ur Specific [place] 1.010, Urine Protein Negative, Urine Glucose (UA) Negat
--- NOTE | 2021-01-01 10:10 | CT_ITS ---
Procedure: CT ANGIO NECK CLINICAL HISTORY: neck pain, headache, left hand numb COMPARISON: CT HEADWO CT head/brain wo con from 03/24/[address] ANGIO HEAD from 01/01/2021 TECHNIQUE: IV Contrast: 100ml Isovue 370 Axial images obtained with sagittal and coronal reformats. All CT scans at the facility use one or more dose reduction, viz: automated exposure control, ma/kV adjustment per patient size (including targeted exams where dose is matched to indication, i.e. head), or iterative reconstruction technique. FINDINGS: CTA neck: Unremarkable appearing aortic arch and great vessels with no ulcerating plaque or stenosis. Carotids: The right common carotid and internal carotid artery have an unremarkable appearance with no stenosis, occlusion, or dissection. Left common carotid is unremarkable. There is a mild amount of soft plaque in the left carotid bulb with shallow ulceration laterally. No dissection. The internal carotid has an otherwise unremarkable appearance. Vertebrals: Unremarkable. No stenosis or occlusion. No evidence of dissection. CTA head: Calcific plaque is present in the cavernous portions of the ICAs on both sides with no significant stenosis. There is some minimal luminal irregularity of the middle cerebral and posterior cerebral arteries consistent with atheromatous changes. No major branch occlusive change evident. No obvious aneurysm. There is asymmetric fullness of the soft tissues at the floor the mouth on the right at the mid aspect of the tongue.. Correlation with direct visualization and palpation is suggested. No intracranial enhancing lesions or AVMs apparent. No evidence of sinus thrombosis. IMPRESSION: 1. No obstructing lesions dissections or aneurysm apparent. 2. Mild atheromatous changes of the left carotid bulb with shallow ulceration with less than 25 percent stenosis. 3. Mild luminal irregularity of the intracranial vessels suggesting atheromatous changes. 4. Possible soft tissue mass along the floor the mouth/mid aspect of the tongue on the right with asymmetric soft tissue density at this region. Suggest correlation with physical exam with palpation and direct visualization. Dictated by: Jeronimo Perez MD 01/01/2021 12:34 Jeronimo Perez MD in [facility] 01/01/2021 12:34
[2021-01-01 10:49] LABS: Basophils % 0.3 % (0.1-2.0); Eosinophils # 0.1 K/mm3 (0.0-0.4); Eosinophils % 1.2 % (0.1-12.0); Hematocrit 38.7 % (42.0-52.0); Hemoglobin 12.9 g/dL (14.1-18.0); Lymphocytes # 2.4 K/mm3 (0.7-4.5); Lymphocytes % 23.3 % (10-50); Mean Corpuscular HGB Conc 33.4 g/dL (31.8-35.4); Mean Corpuscular Hemoglobin 32.7 pg (27.0-31.2); Mean Corpuscular Volume 97.6 fl (80-94); Monocytes # 0.6 K/mm3 (0.1-1.0); Monocytes % 5.8 % (1.7-9.3); Neutrophils # 7.1 K/mm3 (1.8-7.8); Neutrophils % 69.4 % (37.0-80.0); Platelet Count 211 K/mm3 (142-424); Red Blood Count 3.96 M/mm3 (4.60-6.20); Red Cell Distribution Width 14.4 % (11.5-17.5); White Blood Count 10.2 K/mm3 (4.8-10.8)
[2021-01-01 10:57] LABS: Chloride 103 mmol/L (98-107); Potassium 3.8 mmoL/L (3.5-5.1); Sodium 136 mmol/L (136-145)
[2021-01-01 11:00] LABS: Alanine Aminotransferase 16 U/L (12-78); Albumin/Globulin Ratio 1.3 (1.1-1.8); Alkaline Phosphatase 86 U/L (38-126); Anion Gap 11.8 mEq/L (5-15); Aspartate Amino Transferase 20 U/L (17-59); Bilirubin,Total 0.5 mg/dl (0.2-1.3); Blood Urea Nitrogen 23 mg/dl (9-20); Calcium 9.1 mg/dl (8.4-10.2); Carbon Dioxide 25 mmol/L (22.0-30.0); Creatine Kinase 45 U/L (55-170); Creatinine Clearance Estimated 100 mL/min (50-200); Estimated Glomerular Filt Rate 81 ml/min (>60); GFR (African American) 98 ML/MIN (>60); Glucose 174 mg/dl (74-100)
[2021-01-01 11:06] LABS: C-Reactive Protein 54.4 mg/L (0-4)
--- NOTE | 2021-01-01 11:11 | ECG_ITS ---
APPROVED REPORT Exam: Resting ECG HR:71 bpm ECG Measurements Heart Rate 71 AXES [place] 232 P 55 QRSd 140 QRS -31 QT 408 T 61 QTc 443 Conclusion Sinus rhythm with 1st degree AV block with premature atrial complexes Left axis deviation Nonspecific intraventricular block Cannot rule out Septal infarct, age undetermined Abnormal ECG Electronically signed by : Gianni Galeano, 01/02/2021 07:25:23
[2021-01-01 11:12] LABS: NT Pro Brain Natriuretic Pep. 260 pg/mL (0-450)
--- NOTE | 2021-01-01 11:14 | CT_ITS ---
PROCEDURE: CT HEAD/BRAIN WO CON CLINICAL INDICATION: ramirez Severe frequent headache COMPARISON: CT HEADWO CT head/brain wo con from 03/24/2019 TECHNIQUE: Axial images obtained. All CT scans at the facility use one or more dose reduction, viz: automated exposure control, ma/kV adjustment per patient size (including targeted exams where dose is matched to indication, i.e. head), or iterative reconstruction technique. FINDINGS: No midline shift, mass effect, intracranial hemorrhage, hydrocephalus, or extra-axial fluid collection is evident. There is generalized atrophy. The calvarium has an unremarkable appearance. No mastoid effusion. No sinus air-fluid level. IMPRESSION: No acute intracranial finding Involutional changes of Dictated by: Jeronimo Perez MD 01/01/2021 12:06 Jeronimo Perez MD in [facility] 01/01/2021 12:06
[2021-01-01 11:17] LABS: Troponin I < 0.01 ng/ml (0.00-0.034)
[2021-01-01 11:29] LABS: Microscopic, Urine URINE MICROSCOPIC (MICROSCOPIC)
[2021-01-01 11:31] LABS: Appearance,Urine CLEAR (Clear); Bilirubin,Urine Negative (Negative); Blood, Urine Negative (Negative); Color,Urine YELLOW (Yellow); Glucose,Urine (UA) Negative (Negative); Ketones,Urine Negative (Negative); Leukocyte Esterase,Urine Negative (Negative); Nitrate,Urine Negative (Negative); PH,Urine 5.5 (5.0-8.5); Protein,Urine Negative (Negative); Urobilinogen,Urine 0.2 EU/dl (0.2)
[2021-01-01 11:34] LABS: Squamous Epithelial Cell,Urine Occasional #/hpf (0-5)
== END 2021-01-01 13:23 | disposition home or self-care (01) ==
PROVIDERS: Emergency Provider Emergency Medicine; PCP Family Medicine
DX: M79.10 Myalgia, unspecified site (principal); M54.2 Cervicalgia; Z20.822 Contact with and (suspected) exposure to COVID-19; F41.8 Other specified anxiety disorders; E11.9 Type 2 diabetes mellitus without complications; K21.9 Gastro-esophageal reflux disease without esophagitis; I10 Essential (primary) hypertension; Z87.442 Personal history of urinary calculi; Z79.899 Other long term (current) drug therapy; R06.00 Dyspnea, unspecified
CPT/HCPCS: 70450; 70496; 70498; 71046; 80053; 81001; 82550; 83880; 84484; 85025; 86140; 93005; 96374; 99283; Q9967; U0003

== ENCOUNTER 2021-04-16 14:13 | Emergency (ER) | payer MEDICARE, SELFPAY ==
[2021-04-16 14:15] VITALS: BP 112/68; PULSE 87; RESP 18; TEMP 36.8; O2SAT 96; BMI 35.2
--- NOTE | 2021-04-16 14:50 | XR_ITS ---
PROCEDURE INFORMATION: Exam: XR Right Foot Exam date and time: 04/16/2021 2:50 PM Age: 85 years old Clinical indication: Pain; Foot; Right TECHNIQUE: Imaging protocol: XR Right foot. Views: 3 or more views. COMPARISON: No relevant prior exams. FINDINGS: Bones/joints: Moderate-sized calcaneal spur. Generalized osteopenia. Otherwise, unremarkable. No fractures or dislocations. Soft tissues: Normal. No swelling or abnormal density. IMPRESSION: No fractures or dislocations.
[2021-04-16 14:51] VITALS: PULSE 84; RESP 22; O2SAT 95; BMI 35.2
--- NOTE | 2021-04-16 15:44 | HMH.EDUTC ---
[facility] Disposition Clinical Impression: Cellulitis of right lower extremity Disposition: Home, Self-Care Condition on Discharge: Good Instructions: Cellulitis Additional Instructions: Rest the extremity, Elevate the extremity as tolerated while you are resting. Continue to take the oral steroids that you are already on. Start the oral antibiotics that I prescribed. Watch yourself for fever/chills and any other symptom of worsening infection. Go to the er for any concerns. Follow up with your regular doctor. GO TO THE ER FOR ANY WORSENING SYMPTOMS Prescriptions: Sulfamethoxazole/Trimethoprim [Bactrim DS tablet] 1 each PO BID 10 Days #20 tab Transmission Status: Received by [employer] [facility] Referrals: Naila Rice PA [Primary Care Provider] - Time of Disposition: 16:17 Medical Decision Making - Medical Records Medical records reviewed: No: I reviewed the patient's medical records. - Jose Antonio Inquiry Pt receiving controlled substance: No Vital Signs: 04/16/21 14:15 04/16/21 14:51 04/16/21 16:10 Temperature 98.3 F 98 F Temperature Source Oral Pulse Rate 89 Pulse Rate [Left Radial] 87 84 Respiratory Rate 18 22 22 Blood Pressure 128/65 Blood Pressure [Left Arm] 112/68 Blood Pressure Mean [Left Arm] 82 Blood Pressure Source [Left Arm] Automatic Cuff Blood Pressure Position [Left Arm] Sitting 02 Sat by Pulse Oximetry 96 95 Oxygen Delivery Method Room Air Orders (Tests/Meds): ED MEDICATIONS Discontinued Medications Generic Name Dose Route Start Last Admin Trade Name Freq PRN Reason Stop Dose Admin Ceftriaxone Sodium 1 gm 04/16/21 15:56 04/16/21 15:59 Ceftriaxone 1gm Vial IM 04/16/21 15:57 1 gm ONCE ONE Administration Protocol Lidocaine HCl 0 ml 04/16/21 15:56 04/16/21 15:59 Lidocaine 1% 5ml Pf Vial IM 04/16/21 15:57 2.5 ml ONCE ONE Administration [facility] HPI - General Stated complaint: rt foot swelling pain Time Seen by Provider: 04/16/21 15:30 Mode of Arrival: Ambulatory Source of Information: Patient Limitations: No Limitations Description of Symptoms (Recalled from Triage Doc. by RN): pt c/o waking up tues. with his R foot throbbing and painful similar to a tooth ache. the top of the pts foot is red and very minimally swollen. no injury noted. HEENT Symptoms (Recalled from RN notes): No Resp Symptoms (Recalled from RN notes): No Skin Symptoms (Recalled from RN notes): No MS Symptoms (Recalled from RN notes): Yes (R foot pain described as throbbing and similar to a tooth ache) Functional Status (Recalled from RN notes): na - History of Present Illness Provider Complaint: He c/o right foot and ankle pain for the past 5 days. He denies any known injury. He was saw by his pcp 2 days ago. He was prescribed oral steroids but he did not get to start them until this morning. He denies any redness of the foot or lower leg. He denies any fever/chills/body aches. - Related Data Home Medications Medication Instructions Recorded Confirmed furosemide 20 mg tablet 20 mg PO DAILY PRN 90 Days tab 01/31/18 10/07/20 Tamsulosin HCl [Flomax 0.4mg 0.4 mg PO HS 03/12/18 10/07/20 capsule] buspirone 5 mg tablet 5 mg PO DAILY 30 Days #90 04/08/18 10/07/20 atorvastatin 40 mg tablet 20 mg PO ONCE 90 Days #45 tab 12/12/18 10/07/20 potassium chloride 20 mEq 1 tab PO DAILY 90 Days #90 tab 12/12/18 10/07/20 tablet,extended release(part/cryst) Donepezil HCl [Aricept 10mg 5 mg PO HS 10/07/20 10/07/20 tablet] Duloxetine HCl [Cymbalta 30mg 30 mg PO DAILY 10/07/20 10/07/20 capsule] Omeprazole [Omeprazole 20mg Tab] 40 mg PO DAILY 10/07/20 10/07/20 Ranolazine [Ranexa 500mg ER tablet] 500 mg PO BID 10/07/20 10/07/20 Previous Rx's Medication Instructions Recorded clindamycin HCL [Clindamycin HCl] 300 mg PO TID 10 Days #30 cap 10/07/20 Sulfamethoxazole/Trimethoprim 1 each PO BID 10 Days #20 tab 04/16/21 [Bactrim DS tablet]
[2021-04-16 16:10] VITALS: BP 128/65; PULSE 89; RESP 22; TEMP 36.6
== END 2021-04-16 16:24 | disposition home or self-care (01) ==
LOC: ER 14:30 → UTC 14:32
PROVIDERS: Emergency Provider Nurse Practitioner Family; PCP Nurse Practitioner Family
DX: L03.115 Cellulitis of right lower limb (principal); F41.8 Other specified anxiety disorders; K21.9 Gastro-esophageal reflux disease without esophagitis; I10 Essential (primary) hypertension; E78.5 Hyperlipidemia, unspecified
CPT/HCPCS: G0463; 73630; 96372; 99202

== ENCOUNTER 2021-06-22 19:57 | Emergency (ER) | payer MEDICARE, SELFPAY ==
--- NOTE | 2021-06-22 19:52 | ECG_ITS ---
APPROVED REPORT Exam: Resting ECG HR:80 bpm ECG Measurements Heart Rate 80 AXES [place] 216 P 83 QRSd 138 QRS -35 QT 380 T 90 QTc 438 Conclusion Sinus rhythm with 1st degree AV block with premature atrial complexes Left axis deviation Nonspecific intraventricular block Cannot rule out Septal infarct, age undetermined Abnormal ECG Electronically signed by : Gianni Galeano MD 06/23/2021 17:48:47
[2021-06-22 19:57] VITALS: BP 117/71; PULSE 83; RESP 16; TEMP 37.1; O2SAT 96; BMI 38.0
--- NOTE | 2021-06-22 20:01 | XR_ITS ---
PROCEDURE INFORMATION: Exam: XR Chest Exam date and time: 06/22/2021 8:01 PM Age: 85 years old Clinical indication: Pain; Chest pressure; Additional info: Cp TECHNIQUE: Imaging protocol: XR of the chest. Views: 2 views. COMPARISON: CR XR CHEST 2V 01/01/2021 11:14 AM FINDINGS: Lungs: Mild bibasilar atelectasis. No focal consolidation. Pleural spaces: Unremarkable. No pleural effusion. No pneumothorax. Heart/Mediastinum: Unremarkable. No cardiomegaly. Bones/joints: Unremarkable. IMPRESSION: No acute cardiopulmonary disease
--- NOTE | 2021-06-22 20:06 | CT_ITS ---
PROCEDURE INFORMATION: Exam: CT Abdomen And Pelvis With Contrast Exam date and time: 06/22/2021 8:06 PM Age: 85 years old Clinical indication: Abdominal pain; Additional info: Abd pain TECHNIQUE: Imaging protocol: Computed tomography of the abdomen and pelvis with contrast. Radiation optimization: All CT scans at this facility use at least one of these dose optimization techniques: automated exposure control; mA and/or kV adjustment per patient size (includes targeted exams where dose is matched to clinical indication); or iterative reconstruction. Contrast material: ISOVUE; Contrast volume: 75 ml; Contrast route: IV; COMPARISON: CT ABDOMEN PELVIS WO CON 04/11/2020 8:04 AM FINDINGS: Lungs: Mild bibasilar atelectasis. Some calcified pulmonary nodules are seen. Liver: Normal. No mass. Gallbladder and bile ducts: Normal. No calcified stones. No ductal dilation. Pancreas: Normal. No ductal dilation. Spleen: Splenic granulomata noted. Adrenal glands: Normal. No mass. Kidneys and ureters: Right renal hypoattenuating lesion is seen with some peripheral calcifications. No significant change. No hydronephrosis. Stomach and bowel: Unremarkable. No obstruction. No mucosal thickening. Appendix: No evidence of appendicitis. Intraperitoneal space: Unremarkable. No free air. No significant fluid collection. Vasculature: Coronary artery calcifications and aortic valvular calcifications are seen. Lymph nodes: Mildly prominence mediastinal lymph nodes are seen. Some are calcified. Urinary bladder: Unremarkable as visualized. Reproductive: Mild prostatic enlargement. Bones/joints: Unremarkable. No acute fracture. Soft tissues: Unremarkable. IMPRESSION: No acute intra-abdominal pathology COMMENTS: Consistent with the [employer]'s Incidental Findings Committee white paper (J Am Pura Radiol 2018): Any incidental renal lesion less than 1 cm or classified as too small to characterize, or any incidental cystic renal lesion characterized as simple-appearing, is likely benign. No follow-up imaging is recommended for these lesions per consensus recommendations based on imaging criteria.
[2021-06-22 20:11] LABS: Basophils # 0.1 K/mm3 (0-0.2); Basophils % 0.7 % (0.1-2.0); Eosinophils # 0.3 K/mm3 (0.0-0.4); Eosinophils % 3.3 % (0.1-12.0); Hematocrit 42.7 % (42.0-52.0); Hemoglobin 14.1 g/dL (14.1-18.0); Lymphocytes % 36.7 % (10-50); Mean Corpuscular HGB Conc 32.9 g/dL (31.8-35.4); Mean Corpuscular Hemoglobin 33.1 pg (27.0-31.2); Mean Corpuscular Volume 100.5 fl (80-94); Mean Platelet Volume 8.8 fl (7.4-10.4); Monocytes # 0.4 K/mm3 (0.1-1.0); Neutrophils # 4.5 K/mm3 (1.8-7.8); Neutrophils % 54.3 % (37.0-80.0); Platelet Count 247 K/mm3 (142-424); Red Blood Count 4.25 M/mm3 (4.60-6.20); Red Cell Distribution Width 13.9 % (11.5-17.5); White Blood Count 8.2 K/mm3 (4.8-10.8)
[2021-06-22 20:19] LABS: Alanine Aminotransferase 22 U/L (12-78); Albumin Level 4.1 g/dl (3.5-5.0); Albumin/Globulin Ratio 1.3 (1.1-1.8); Alkaline Phosphatase 103 U/L (38-126); Amylase 46 U/L (30-110); Anion Gap 11.7 mEq/L (5-15); Aspartate Amino Transferase 26 U/L (17-59); Bilirubin,Total 0.3 mg/dl (0.2-1.3); Blood Urea Nitrogen 24 mg/dl (9-20); Calcium 9.4 mg/dl (8.4-10.2); Carbon Dioxide 28 mmol/L (22.0-30.0); Chloride 103 mmol/L (98-107); Creatinine Clearance Estimated 101 mL/min (50-200); Estimated Glomerular Filt Rate 71 ml/min (>60); GFR (African American) 86 ML/MIN (>60); Globulin 3.1 g/dL (1.3-3.2); Glucose 221 mg/dl (74-100); Lipase 70 U/L (23-300); Potassium 4.7 mmoL/L (3.5-5.1); Sodium 138 mmol/L (136-145); Total Protein,Serum 7.2 g/dl (6.3-8.2)
[2021-06-22 20:24] LABS: C-Reactive Protein 2.4 mg/L (0-4)
[2021-06-22 20:38] LABS: Procalcitonin 0.044 ng/mL (0.0-2.0)
[2021-06-22 20:40] LABS: Troponin I < 0.01 ng/ml (0.00-0.034)
[2021-06-22 21:00] LABS: Erythrocyte Sedimentation Rate 20 mm/hr (0-20)
--- NOTE | 2021-06-22 21:30 | HMH.EDCP ---
ED Disposition Clinical Impression: Chest pain Qualifiers: Chest pain type: precordial pain Qualified Code(s): R07.2 - Precordial pain Disposition: Home, Self-Care Condition on Discharge: Good Instructions: DI for Chest Pain Additional Instructions: see pcp and card for follow up and recheck if any problems Referrals: Stephen Chen MD [Primary Care Provider] - Aki Higuera MD [Staff Physician] - - Critical Care Critical Care Time: No Attestation: On 06/22/21, the high probability of a clinically significant, sudden or life threatening deterioration of the following system(s) required my full and direct attention, intervention and personal management. The time I documented below is in addition to time spent performing reported procedures but includes the following listed in this critical care notation. Medical Decision Making - Medical Records Medical records reviewed: Yes: I reviewed the patient's medical records. - Jose Antonio Inquiry Pt receiving controlled substance: No Vital Signs: 06/22/21 19:57 Temperature 98.7 F Temperature Source Oral Pulse Rate [Right] 83 Respiratory Rate 16 Blood Pressure [Right Arm] 117/71 Blood Pressure Mean [Right Arm] 86 02 Sat by Pulse Oximetry 96 - Lab Data Lab results reviewed: Yes: I reviewed the patient's lab results. Lab Results 06/22/21 20:02: WBC 8.2, RBC 4.25 L, Hgb 14.1, Hct 42.7, MCV 100.5 H, MCH 33.1 H, MCHC 32.9, RDW 13.9, Plt Count 247, MPV 8.8, Neut % (Auto) 54.3, Lymph % (Auto) 36.7, [place] % (Auto) 5.0, Eos % (Auto) 3.3, Baso % (Auto) 0.7, Neut # (Auto) 4.5, Lymph # (Auto) 3.0, [place] # (Auto) 0.4, Eos # (Auto) 0.3, Baso # (Auto) 0.1, ESR 20 06/22/21 20:02: Sodium 138, Potassium 4.7, Chloride 103, Carbon Dioxide 28, Anion Gap 11.7, BUN 24 H, Creatinine 1.00, Estimated Creat Clear 101, Estimated GFR 71, Est GFR ( Amer) 86, Glucose 221 H, Calcium 9.4, Total Bilirubin 0.3, AST 26, ALT 22, Alkaline Phosphatase 103, Troponin I < 0.01, C-Reactive Protein 2.4, Total Protein 7.2, Albumin 4.1, Globulin 3.1, Albumin/Globulin Ratio 1.3, Amylase 46, Procalcitonin 0.044 06/22/21 20:02: Lipase 70 Result diagrams: 06/22/21 20:02 06/22/21 20:02 Orders (Tests/Meds): ED MEDICATIONS Generic Name Dose Route Start Last Admin Trade Name Fremaciel PRN Reason Stop Dose Admin Sodium Chloride 8 ml 06/22/21 20:03 Sodium Chloride 0.9% 10ml Vial IV 07/22/21 20:02 NEEDED PRN dilute pepcid Discontinued Medications Generic Name Dose Route Start Last Admin Trade Name Freq PRN Reason Stop Dose Admin Aspirin 324 mg 06/22/21 20:05 06/22/21 20:32 Aspirin 81mg Chewable Tablet PO 06/22/21 20:06 324 mg ONCE ONE Administration Famotidine 20 mg 06/22/21 20:03 06/22/21 21:17 Famotidine 20mg/2ml Vial IV 06/22/21 20:04 Not Given ONCE ONE Sodium Chloride 1,000 mls @ 999 mls/hr 06/22/21 20:15 06/22/21 20:27 Sod Chlor 0.9% 1000ml Bag IV 06/22/21 21:15 999 mls/hr .Q1H1M RACHEL Administration Iopamidol 75 ml 06/22/21 20:46 06/22/21 20:47 Iopamidol-370 (76%);100ml Bottle IV 06/22/21 20:47 75 ml ONCE ONE Administration Metoclopramide HCl 10 mg 06/22/21 20:03 06/22/21 21:17 Metoclopramide Hcl 10mg/2ml Vial IVP 06/22/21 20:04 Not Given ONCE ONE Nitroglycerin 0.4 mg 06/22/21 20:03 06/22/21 20:27 Nitroglycerin 0.4mg Sl Tablet SL 06/22/21 20:04 0.4 mg ONCE ONE Administration Sodium Chloride 10 ml 06/22/21 20:46 06/22/21 20:47 Sodium Chloride 0.9% 10ml Syr (Rad Only) IV 06/22/21 20:47 10 ml ONCE ONE Administration ORDERS Category Date Time Status Troponin I Q3H Lab 06/22/21 23:15 Ordered Troponin I Q3H Lab 06/23/21 02:15 Ordered UA [Urinalysis and Microscopic] Stat Lab 06/22/21 20:07 Ordered - Radiology Data #1 Image(s): Chest Image Reviewed: Yes I have reviewed radiologist's interpretation Preliminary Findings: Normal/NAD - CT Data CT Scan: Abdomen, Pelvi
[2021-06-22 22:19] VITALS: BP 120/78; PULSE 80; RESP 16; TEMP 37.1; O2SAT 96
== END 2021-06-22 22:21 | disposition home or self-care (01) ==
PROVIDERS: Emergency Provider Emergency Medicine; PCP Family Medicine
DX: R07.2 Precordial pain (principal); F41.8 Other specified anxiety disorders; K21.9 Gastro-esophageal reflux disease without esophagitis; I10 Essential (primary) hypertension; E78.5 Hyperlipidemia, unspecified
CPT/HCPCS: 71046; 74177; 80053; 82150; 83690; 84145; 84484; 85025; 85651; 86140; 93005; 96365; 99283; Q9967

== ENCOUNTER → 2021-07-05 06:55 | Outpatient (CLI) | payer MEDICARE, SELFPAY ==
--- NOTE | 2021-07-05 06:56 | CA_ITS ---
APPROVED REPORT EXAM: Comprehensive 2D, Doppler, and color-flow Echocardiogram Business Operations Consultant: Taryn Chandler RVT Ht: 6 ft 0 in Wt: 292lbs BSA: 2.50 BP: 117/54 mmHg Indications: CP,SOA,STENT,GERD,MURMUR,FATIGUE,PRE-OP,HTN,HLD 2D Dimensions LVOT 2.73 cm (M/F) 1.5-2.5 LA Volume 59.20 mL LA Volume Index 23.68 mL/m2 (M/F) 16-34 M-Mode Dimensions RVDd 3.97 cm (0.9-2.6) LA Diam 5.32 cm (1.9-4.0) LVDd 5.79 cm (3.5-5.7) Ao Diam 3.77 cm (2.0-3.7) LVDs 4.23 cm (3.5-5.7) IVSd 1.07 cm (0.6-1.1) PWd 1.11 cm (0.6-1.1) EF (Teich) 51.80% FS 26.90% EDV (Teich) 165.90 mL TAPSE 1.29 (<1.7) ESV (Teich) 79.90 mL LV Diastology E Decel Time 197.00 (160-240 msec) E/A Ratio 0.8 MED E' 5.00 (< 7 cm/sec) E'/MED E' Ratio 14.16 (>14) LAT E' 5.20 (<10 cm/sec) E/LAT E' Ratio 13.62 (>14) Aortic Valve LVOT Max 132.00 (70-110 cm/s) LVOT VTI 33.45 cm AoV Peak Chance. 188.00 (50-130 cm/s) AO Peak GR. 15.00 mmHg AO Mean GR. 9.20 (<5 mmHg) AO VTI 51.97 (18-25 cm) JACQUES (VTI) 3.77 (2.5-4.5 cm2) Mitral Valve MV E Max Chance. 71.00 (40-130 cm/s) MV A Velocity 90.00 (40-130 cm/s) E/A Ratio 0.78 MV Decel. Time 197.00 (160-240 ms) MV PHT 58.00 ms Pulmonary Valve PV Peak Velocity 66.00 (50-150 cm/s) Tricuspid Valve TR P. Velocity 185.00 cm/s RAP Estimate 10.00 mmHg RVSP 23.70 mmHg Left Ventricle Left atrium is mildly enlarged, left ventricle is normal size, mild concentric left ventricular hypertrophy, visually estimated ejection fraction 55% with no regional wall motion abnormality, grade 1 diastolic dysfunction seen with tissue Doppler evidence of raise left atrial pressure. Right Ventricle Right atrium and right ventricle are mildly enlarged with normal contractility. Aortic Valve Aortic valve is thickened and calcified without Doppler evidence of significant aortic stenosis or aortic insufficiency. Mitral Valve Mitral valve leaflets are minimally thickened, there is mild mitral regurgitation. Tricuspid Valve Tricuspid valve grossly normal, there is mild tricuspid regurgitation tricuspid regurgitation jet velocity is inadequate for calculation of the right ventricular systolic pressure. Pulmonic Valve Pulmonic valve is poorly visualized. Great Vessels Aortic root is normal size. Inferior vena cava is normal size with normal inspiratory collapse. Pericardium No significant pericardial effusion noted. Conclusion 1. Mildly enlarged left atrium, normal left ventricular size, mild concentric left ventricular hypertrophy, visually estimated ejection fraction 55% with no regional wall motion abnormality, grade 1 diastolic dysfunction seen with tissue Doppler evidence of raise left atrial pressure. 2. Thickened and calcified aortic valve without significant aortic stenosis or aortic insufficiency. 3. Mild mitral and tricuspid regurgitation. 4. No significant pericardial effusion noted. 5. Inferior vena cava is normal size with normal inspiratory collapse. Electronically signed by : Shady Sanders MD 07/05/2021 20:42:43
--- NOTE | 2021-07-05 06:56 | NM_ITS ---
APPROVED REPORT Exam: Nuclear Stress Test Indication: SOB, CAD, DM, High cholesterol, Family history Patient Location: Outpatient Stress Tech: Lydia Gongora [place] Tech:Carolee Erazo, ARRT, RT (R)(N) Ht: 6 ft 4 in Wt: 291 lbs HR: 59 bpm BP: 180/75 mmHg BSA: 2.60 m2 BMI: 35.4 History: SOB, CAD, DM, High cholesterol, Family history Procedure: Patient received a 0.4 mg of intravenous Lexiscan, resting heart rate 59 bpm, resting blood pressure 180/75 mmHg, with Lexiscan maximum heart rate achived was 71 bpm which is Less than 85 % of the maximum predicted heart rate and blood pressure was 150/82 mmHg. With Lexiscan, patient denied any complaint of chest pain. Electrocardiogram Resting electrocardiogram showed sinus rhythm, with Lexiscan there is less than 1.[address] segment depression noted from the baseline EKG. The EKG portion of the Lexiscan is nondiagnostic. Cardiac Stress and Resting SPECT Images: Cardiac Stress and Resting SPECT images were obtained using technetium 99m Myoview 30.4 mCi stress and 10.26 mCi at rest. Gated SPECT for analysis of segmental wall motion and calculation of the ejection fraction also done. Cardiac stress and resting SPECT images show reversible ischemia involving the apex inferolateral and posterolateral wall, there is transient ischemic dilatation of the left ventricle seen, computer derived ejection fraction is 41% with apical and posterolateral wall moderate hypokinesis, right ventricle is normal size and contractility. Conclusion: 1. The EKG portion of the Lexiscan Myoview is nondiagnostic. 2. Scintigraphic evidence of reversible ischemia involving the apex, inferolateral and posterolateral wall, there is transient ischemic dilatation of the left ventricle seen, computer derived ejection fraction is 41% with segmental wall motion abnormality described above, right ventricle is normal size and contractility. 3. Abnormal Lexiscan Myoview study. Electronically signed by : Shady Sanders MD 07/06/2021 06:47:33
--- NOTE | 2021-07-05 06:56 | CA_ITS ---
APPROVED REPORT Exam: Pharmacologic Technologist: Lydia Gongora, Ht: 6 ft 0 in Wt: 292 lbs BSA: 2.50 m2 HR: 59 bpm BP: 180/75 mmHg Rhythm: NSR, 1 DEGREE AVB, PACS, IVCD, SLOW R WAVE PROGRESSION Medical History Medical History: Hyperlipidemia Medications: Omeprazole,,,,, Atorvastatin,,,,, Buspirone,,,,, TAMSULOSIN,,,,, DulOXETINE,,,,, DONEPEZIL,,,,, AmiTRIPTYLINE,,,,, Potassium,,,,, Furosemide,,,,, Allergies: No known drug allergies Cardiac Risk Factors: Hyperlipidemia Stress Test Details Test: LEXISCAN HR Resting HR: 59 bpm Max Heart Rate (APMHR): 137.211622 bpm Max HR Achieved: 79 bpm Target HR (85% APMHR): 116.901700 bpm % of APMHR: 57.66 Recovery HR: 66 bpm BP Resting BP: 180/75 mmHg Max BP: 180/75 mmHg Recovery BP: 135.0/73.0 mmHg ECG Resting ECG: NSR, 1 DEGREE AVB, PACS, IVCD, SLOW R WAVE PROGRESSION Clinical Exercise duration: 04:51 min Highest Stage Achieved: Stress ECG Conclusion PT HAD MILD SOA, MILD LIGHT HEADEDNESS. NO CP. OCC PVC. NO SIGNIFICANT ST-T CHANGES. UNREMARKABLE LEXISCAN STRESS. MYOVIEW IMAGES REPORTED SEPARATELY. Electronically signed by : Shady Sanders MD 07/06/2021 06:27:39
--- NOTE | 2021-07-05 09:04 | HMH.ITSHM ---
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 []LIPITOR CETIRIZINE GLUCOTROL K-DUR FLOMAX ARICEPT CYMBALTA AMITRIPTYLINE
== END ==
PROVIDERS: PCP Family Medicine; Visit Provider Urology
DX: I25.10 Atherosclerotic heart disease of native coronary artery without angina pectoris (principal); N28.9 Disorder of kidney and ureter, unspecified; R06.00 Dyspnea, unspecified; R07.2 Precordial pain
CPT/HCPCS: 78452; 93017; 93306; A9502; J2785

== ENCOUNTER 2021-08-14 14:24 | Emergency (ER) | payer MEDICARE, SELFPAY ==
[2021-08-14] VITALS (11 sets, daily range): BP systolic 94–143; BP diastolic 7–81; PULSE 73–98; RESP 18; TEMP 36.6–36.8; O2SAT 92–97; BMI 34.9
--- NOTE | 2021-08-14 14:43 | PC.NURSE ---
pt given urinal to try and provide urine specimen
[2021-08-14 15:17] LABS: Basophils # 0.1 K/mm3 (0-0.2); Basophils % 0.9 % (0.1-2.0); Eosinophils # 0.3 K/mm3 (0.0-0.4); Eosinophils % 3.3 % (0.1-12.0); Hematocrit 44.2 % (42.0-52.0); Hemoglobin 15.2 g/dL (14.1-18.0); Lymphocytes # 2.2 K/mm3 (0.7-4.5); Lymphocytes % 26.4 % (10-50); Mean Corpuscular HGB Conc 34.3 g/dL (31.8-35.4); Mean Corpuscular Hemoglobin 33.8 pg (27.0-31.2); Mean Corpuscular Volume 98.3 fl (80-94); Mean Platelet Volume 8.2 fl (7.4-10.4); Monocytes # 0.5 K/mm3 (0.1-1.0); Monocytes % 5.5 % (1.7-9.3); Neutrophils # 5.4 K/mm3 (1.8-7.8); Neutrophils % 63.9 % (37.0-80.0); Platelet Count 300 K/mm3 (142-424); Red Blood Count 4.49 M/mm3 (4.60-6.20); Red Cell Distribution Width 13.5 % (11.5-17.5); White Blood Count 8.5 K/mm3 (4.8-10.8)
[2021-08-14 15:35] LABS: Chloride 103 mmol/L (98-107); Potassium 4.2 mmoL/L (3.5-5.1); Sodium 139 mmol/L (136-145)
[2021-08-14 15:38] LABS: Anion Gap 15.2 mEq/L (5-15); Blood Urea Nitrogen 31 mg/dl (9-20); Carbon Dioxide 25 mmol/L (22.0-30.0); Creatinine Clearance Estimated 72 mL/min (50-200); Estimated Glomerular Filt Rate 48 ml/min (>60); GFR (African American) 59 ML/MIN (>60)
[2021-08-14 15:39] LABS: Calcium 9.5 mg/dl (8.4-10.2); Glucose 210 mg/dl (74-100)
[2021-08-14 15:48] LABS: Microscopic, Urine URINE MICROSCOPIC (MICROSCOPIC)
[2021-08-14 15:51] LABS: Appearance,Urine CLOUDY (Clear); Bilirubin,Urine Negative (Negative); Blood, Urine 3+ (Negative); Color,Urine YELLOW (Yellow); Glucose,Urine (UA) Negative (Negative); Ketones,Urine Negative (Negative); Leukocyte Esterase,Urine 2+ (Negative); Nitrate,Urine Negative (Negative); PH,Urine 5.5 (5.0-8.5); Protein,Urine TRACE (Negative); Specific Gravity, Urine 1.025 (1.005-1.030); Urobilinogen,Urine 0.2 EU/dl (0.2)
[2021-08-14 16:06] LABS: Bacteria,Urine 3+ /lpf; RBC,Urine 20-50 #/hpf (0-3); Squamous Epithelial Cell,Urine Occasional #/hpf (0-5); WBC,Urine 50-100 #/hpf (0-3)
--- NOTE | 2021-08-14 16:30 | CT_ITS ---
PROCEDURE INFORMATION: Exam: CT Abdomen And Pelvis Without Contrast Exam date and time: 08/14/2021 4:30 PM Age: 85 years old Clinical indication: Abdominal pain; Flank; Right; Additional info: Dysuria TECHNIQUE: Imaging protocol: Computed tomography of the abdomen and pelvis without contrast. Radiation optimization: All CT scans at this facility use at least one of these dose optimization techniques: automated exposure control; mA and/or kV adjustment per patient size (includes targeted exams where dose is matched to clinical indication); or iterative reconstruction. COMPARISON: CT ABDOMEN PELVIS W CON 06/22/2021 8:26 PM FINDINGS: Lungs: Mild dependent atelectasis in the posterior lower lungs. No focal consolidation. Calcified right basilar pulmonary granuloma. Heart: Mild cardiomegaly. Coronary artery calcifications. Very small pericardial effusion. Liver: Calcified subdiaphragmatic hepatic granuloma. No hepatomegaly. Gallbladder and bile ducts: The gallbladder is unremarkable. No calcified stones or biliary dilatation. Pancreas: Severe fatty atrophic changes in the pancreas. Some scattered pancreatic calcifications which could be vascular calcification, or sequela of prior chronic pancreatitis. No ductal dilatation. Spleen: No splenomegaly. Calcified granulomas. Adrenal glands: The adrenal glands are normal. Kidneys and ureters: A complex right upper pole renal cortical cystic lesion of approximately 5.8 cm, with nodular mural calcification and some minimal thin septation. However, this has low HU density measurement of 5, and is not significantly changed compared with prior CT of 06/22/2021. This has shown very slow progressive enlargement compared with previous studies dating back to 08/22/2018. Tiny, punctate nonobstructing left renal calculi. No hydronephrosis, hydroureter, or obstructing calcified ureteral stones. Stomach and bowel: There is diverticulosis coli, without evidence of acute diverticulitis.There is no evidence of intestinal perforation or obstruction. The stomach is normal. Appendix: No findings of appendicitis. Intraperitoneal space: There is no significant free intraperitoneal fluid. There is no free intraperitoneal air. 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 Vasculature: There is no aortic aneurysm.The vasculature demonstrates scattered mild atherosclerotic calcification. No portal venous gas. Lymph nodes: Calcified right mediastinal and hilar lymph nodes. No significantly enlarged abdominal-pelvic lymph nodes by short axis criteria. Tiny mesenteric lymph nodes, likely reactive. Urinary bladder: The bladder is nearly empty and not well evaluated. Thickened appearance of the bladder wall may be due to hypo distension, versus bladder hypertrophy or history of cystitis. No calcified stones. Reproductive: Nonspecific prostate enlargement approximate 5.5 x 4.7 x 5.1 cm, with some prostate calcifications. Slightly nodular prostate contours indenting the bladder neck. Seminal vesicles are unremarkable. Bones/joints: Chronic lumbar degenerative and surgical changes, no acute findings compared with 06/22/2021. Prominent bilateral hip arthritis. Bilateral sacroiliitis. Soft tissues: There is a tiny fatty umbilical hernia; no herniated bowel loops.There are no soft tissue masses or fluid collections. IMPRESSION: 1. Punctate nonobstructing left renal calculi. 2. No hydronephrosis, hydroureter, or obstructing calcified ureteral stones. 3. A chronic complex right renal cortical cystic mass of approximately 5.8
--- NOTE | 2021-08-14 17:24 | PC.NURSE ---
pt to CT
--- NOTE | 2021-08-14 18:44 | HMH.EDGENADL ---
ED Disposition Clinical Impression: Hematuria Qualifiers: Hematuria type: unspecified type Qualified Code(s): R31.9 - Hematuria, unspecified Disposition: Home, Self-Care Condition on Discharge: Good Instructions: DI for Urinary Tract Infection (UTI), DI for Urinary Tract Infection in Children Additional Instructions: Follow-up with your urologist this week. Return to [facility] for fever. Referrals: Stephen Chen MD [Primary Care Provider] - 3 days Time of Disposition: 18:50 - Critical Care Critical Care Time: No Attestation: On 08/14/21, the high probability of a clinically significant, sudden or life threatening deterioration of the following system(s) required my full and direct attention, intervention and personal management. The time I documented below is in addition to time spent performing reported procedures but includes the following listed in this critical care notation. Medical Decision Making - Medical Records Medical records reviewed: Yes: I reviewed the patient's medical records. - Jose Antonio Inquiry Pt receiving controlled substance: No Vital Signs: 08/14/21 14:28 08/14/21 14:33 08/14/21 14:49 Temperature 98.2 F Temperature Source Oral Pulse Rate 98 H 92 H Pulse Rate [Right Radial] 91 H Respiratory Rate 18 18 Blood Pressure 143/79 H Blood Pressure [Right Arm] 143/79 H Blood Pressure Mean Blood Pressure Mean [Right Arm] 100 Blood Pressure Source Automatic Cuff Blood Pressure Source [Right Arm] Automatic Cuff Blood Pressure Position Supine Blood Pressure Position [Right Arm] Sitting 02 Sat by Pulse Oximetry 95 94 L 94 L Oxygen Delivery Method Room Air Room Air 08/14/21 15:00 08/14/21 15:15 08/14/21 15:30 Temperature Temperature Source Pulse Rate 93 H 83 73 Pulse Rate [Right Radial] Respiratory Rate Blood Pressure Blood Pressure [Right Arm] Blood Pressure Mean Blood Pressure Mean [Right Arm] Blood Pressure Source Blood Pressure Source [Right Arm] Blood Pressure Position Blood Pressure Position [Right Arm] 02 Sat by Pulse Oximetry 94 L 95 92 L Oxygen Delivery Method 08/14/21 15:32 08/14/21 15:45 08/14/21 16:01 Temperature Temperature Source Pulse Rate 90 87 80 Pulse Rate [Right Radial] Respiratory Rate Blood Pressure 94/81 L 94/49 L Blood Pressure [Right Arm] Blood Pressure Mean 85 64 Blood Pressure Mean [Right Arm] Blood Pressure Source Blood Pressure Source [Right Arm] Blood Pressure Position Blood Pressure Position [Right Arm] 02 Sat by Pulse Oximetry 94 L 94 L 94 L Oxygen Delivery Method 08/14/21 18:21 Temperature Temperature Source Pulse Rate 79 Pulse Rate [Right Radial] Respiratory Rate 18 Blood Pressure 113/69 Blood Pressure [Right Arm] Blood Pressure Mean Blood Pressure Mean [Right Arm] Blood Pressure Source Automatic Cuff Blood Pressure Source [Right Arm] Blood Pressure Position Sitting Blood Pressure Position [Right Arm] 02 Sat by Pulse Oximetry 96 Oxygen Delivery Method Room Air - Lab Data Lab results reviewed: Yes: I reviewed the patient's lab results. Lab Results 08/14/21 15:00: WBC 8.5, RBC 4.49 L, Hgb 15.2, Hct 44.2, MCV 98.3 H, MCH 33.8 H, MCHC 34.3, RDW 13.5, Plt Count 300, MPV 8.2, Neut % (Auto) 63.9, Lymph % (Auto) 26.4, [place] % (Auto) 5.5, Eos % (Auto) 3.3, Baso % (Auto) 0.9, Neut # (Auto) 5.4, Lymph # (Auto) 2.2, [place] # (Auto) 0.5, Eos # (Auto) 0.3, Baso # (Auto) 0.1 08/14/21 15:00: Sodium 139, Potassium 4.2, Chloride 103, Carbon Dioxide 25, Anion Gap 15.2 H, BUN 31 H, Creatinine 1.40 H, Estimated Creat Clear 72, Estimated GFR 48 L, Est GFR ( Amer) 59, Glucose 210 H, Calcium 9.5 08/14/21 15:30: Urine Color Yellow, Urine Appearance Cloudy, Urine pH 5.5, Ur Specific [place] 1.025, Urine Protein Trace, Urine Glucose (UA) Negative, Urine Ketones Negative, Urine Blood 3+, Urine Nitrate Negative, Urine Bilirubin Negative, Ur
== END 2021-08-14 19:34 | disposition home or self-care (01) ==
PROVIDERS: Emergency Provider Family Medicine; PCP Family Medicine
DX: R31.9 Hematuria, unspecified (principal); R35.0 Frequency of micturition; M54.50 Low back pain, unspecified; F41.8 Other specified anxiety disorders; K21.9 Gastro-esophageal reflux disease without esophagitis; E78.5 Hyperlipidemia, unspecified; I10 Essential (primary) hypertension; Z88.7 Allergy status to serum and vaccine
CPT/HCPCS: 74176; 80048; 81001; 85025; 87086; 87088; 87186; 96365; 99283

== ENCOUNTER → 2021-09-30 13:42 | Outpatient (CLI) | payer MEDICARE, SELFPAY ==
[2021-09-30 14:37] LABS: Basophils # 0.1 K/mm3 (0-0.2); Basophils % 1.1 % (0.1-2.0); Eosinophils # 0.2 K/mm3 (0.0-0.4); Eosinophils % 2.1 % (0.1-12.0); Hematocrit 43.2 % (42.0-52.0); Hemoglobin 14.1 g/dL (14.1-18.0); Lymphocytes # 2.7 K/mm3 (0.7-4.5); Lymphocytes % 38.4 % (10-50); Mean Corpuscular HGB Conc 32.5 g/dL (31.8-35.4); Mean Corpuscular Hemoglobin 32.2 pg (27.0-31.2); Monocytes # 0.4 K/mm3 (0.1-1.0); Monocytes % 5.9 % (1.7-9.3); Neutrophils # 3.7 K/mm3 (1.8-7.8); Neutrophils % 52.5 % (37.0-80.0); Platelet Count 237 K/mm3 (142-424); Red Blood Count 4.36 M/mm3 (4.60-6.20); Red Cell Distribution Width 13.8 % (11.5-17.5)
[2021-09-30 14:54] LABS: INR 0.94 (0.9-1.1); Prothrombin Time 10.7 seconds (10.1-12.5)
[2021-09-30 15:30] LABS: Anion Gap 12.1 mEq/L (5-15); Blood Urea Nitrogen 21 mg/dl (9-20); Calcium 9.2 mg/dl (8.4-10.2); Carbon Dioxide 26 mmol/L (22.0-30.0); Chloride 103 mmol/L (98-107); Estimated Glomerular Filt Rate 81 ml/min (>60); GFR (African American) 98 ML/MIN (>60); Glucose 151 mg/dl (74-100); Potassium 4.1 mmoL/L (3.5-5.1); Sodium 137 mmol/L (136-145)
== END ==
PROVIDERS: PCP Family Medicine; Visit Provider Family Medicine
DX: Z01.818 Encounter for other preprocedural examination (principal); Z51.81 Encounter for therapeutic drug level monitoring
CPT/HCPCS: 36415; 80048; 85025; 85610

== ENCOUNTER 2022-04-11 08:28 | Emergency (ER) | payer MEDICARE, SELFPAY ==
[2022-04-11 08:29] VITALS: BP 119/63; PULSE 77; RESP 18; TEMP 37; O2SAT 95; BMI 34.4
--- NOTE | 2022-04-11 08:36 | HMH.EDGENADL ---
ED Disposition Clinical Impression: COVID-19, Hyperglycemia due to diabetes mellitus Disposition: Home, Self-Care Condition on Discharge: Good Instructions: DI for COVID-19 (Suspected or Confirmed ), DI for Hyperglycemia -- Adult Additional Instructions: follow up PCP as needed, return here for worse Referrals: Stephen Chen MD [Primary Care Provider] - - Critical Care Critical Care Time: No Attestation: On , the high probability of a clinically significant, sudden or life threatening deterioration of the following system(s) required my full and direct attention, intervention and personal management. The time I documented below is in addition to time spent performing reported procedures but includes the following listed in this critical care notation. Medical Decision Making - Medical Records Medical records reviewed: Yes: I reviewed the patient's medical records. - Jose Antonio Inquiry Pt receiving controlled substance: No Vital Signs: 04/11/22 08:29 Temperature 98.6 F Temperature Source Oral Pulse Rate [Radial] 77 Respiratory Rate 18 Blood Pressure [Left Arm] 119/63 Blood Pressure Mean [Left Arm] 81 Blood Pressure Source [Left Arm] Automatic Cuff Blood Pressure Position [Left Arm] Sitting 02 Sat by Pulse Oximetry 95 Oxygen Delivery Method Room Air - Lab Data Lab Results 04/11/22 08:44: SARS-CoV-2 (PCR) Detected A, Influenza A Untype (PCR) Not detected, Influenza Type B (PCR) Not detected 04/11/22 08:48: POC Glucose 243 H Orders (Tests/Meds): ORDERS Category Date Time Status Chest XR -- portable [XR chest portable] Stat Exams 04/11/22 09:32 Taken bedside glucose [POC Glucose,Bedside] Stat Lab 04/11/22 08:45 Ordered Medical Decision Narrative: vss, viral symptoms, type 2 dm, cxr by ca neg acure, ok with plan to covid precautions and f/u pcp as needed General Adult HPI - General Stated complaint: SOB, bodyaches, diarrhea, fever Time Seen by Provider: 04/11/22 08:43 - History of Present Illness HPI narrative: flu like symptoms, fever this am, symptoms approx 1 week Onset (ago): hour(s) Severity: moderate Quality: aching Consistency: constant Relieving factors: none Exacerbating factors: none Associated symptoms: fever/chills - Related Data Home Medications Medication Instructions Recorded Confirmed furosemide 20 mg tablet 20 mg PO DAILY PRN 90 Days tab 01/31/18 07/06/21 Tamsulosin HCl [Flomax 0.4mg 0.4 mg PO HS 03/12/18 07/06/21 capsule] atorvastatin 40 mg tablet 20 mg PO ONCE 90 Days #45 tab 12/12/18 07/06/21 Donepezil HCl [Aricept 10mg 5 mg PO HS 10/07/20 07/06/21 tablet] Duloxetine HCl [Cymbalta 30mg 30 mg PO DAILY 10/07/20 07/06/21 capsule] amitriptyline 50 mg tablet 50 mg PO HS tab 06/27/21 07/06/21 buspirone 5 mg tablet 10 mg PO DAILY 30 Days #60 tab 06/27/21 07/06/21 omeprazole 20 mg tablet,delayed 40 mg PO DAILY PRN 06/27/21 07/06/21 release potassium chloride 20 mEq 20 meq PO DAILY 06/27/21 07/06/21 tablet,extended release(part/cryst) Allergies Allergy/AdvReac Type Severity Reaction Status Date / Time tetanus and diphtheria Allergy Intermediate I-HIVES Verified 07/06/21 08:37 toxoids [TETANUS & DIPHTHERIA TOXOIDS] [facility] History - Hepatitis A Screen Attestation statement:: This patient has been screened for Hepatitis A risk factors. Medical History: Reports:: Anxiety, Coronary Artery Disease, Depression, Diabetes Mellitus Type 2, Gastroesophageal Reflux Disease(GERD), Hyperlipidemia, Hypertension, Kidney Stones, MRSA Denies:: Cancer, Diabetes Mellitus Type 1, Internal Pacemaker, Seizures Other Medical History: Reports: Arthritis Laterality Cases: Right: Arthroscopy Shoulder, Bilateral: Arthroscopy Knee Other Surgeries: Yes: No Previous Surgery, Appendectomy, Cardiac Catheterization, Colonoscopy, Other. No: Pacemaker Amputation: No Fractures: No Comment: Kidney stone surgery - Social Histor
--- NOTE | 2022-04-11 08:39 | PC.NURSE ---
DR. POLANCO AT BEDSIDE FOR EVALUATION
[2022-04-11 08:40] VITALS: BMI 34.4
--- NOTE | 2022-04-11 08:49 | PC.NURSE ---
rounded on patient and francesid swabbed the patient, per the ER Doctors order.
[2022-04-11 08:55] LABS: Influenza A, PCR Not Detected (NotDetected); Influenza B, PCR Not Detected (NotDetected)
[2022-04-11 08:56] LABS: POC Glucose,Bedside 243 (70-110)
--- NOTE | 2022-04-11 09:10 | PC.NURSE ---
ROUNDED ON PT AT THIS TIME. PT REQUESTING WATER, OK'D PER MD. WATER PROVIDED AT THIS TIME. NO FURTHER NEEDS
[2022-04-11 09:19] LABS: Coronavirus 19, PCR Detected (NotDetected)
--- NOTE | 2022-04-11 09:28 | PC.NURSE ---
ED MD AT BEDSIDE TO DISCUSS POC WITH PT
--- NOTE | 2022-04-11 09:29 | PC.NURSE ---
ER MD at speaking with patient regarding update on POC
--- NOTE | 2022-04-11 09:32 | XR_ITS ---
FINAL REPORT CLINICAL HISTORY: fever FINDINGS: A portable view of the chest was obtained. Comparison is made to a prior exam dated March 03, 2022. Cardiac and mediastinal silhouettes are within normal limits. There are low lung volumes. There are bibasilar opacities that favor atelectasis. There is no pleural effusion or pneumothorax. IMPRESSION: Low lung volumes with bibasilar opacities, favor atelectasis. Reviewed, Interpreted and Dictated by Judy Estrella MD Transcribed by Yoli Pandya Authenticated and [facility]
--- NOTE | 2022-04-11 09:33 | PC.NURSE ---
RADIOLOGY NOTIFIED OF CXR
--- NOTE | 2022-04-11 09:39 | PC.NURSE ---
XR AT BEDSIDE
--- NOTE | 2022-04-11 09:47 | PC.NURSE ---
ED MD AT BEDSIDE TO UPDATE PT ON POC
[2022-04-11 09:49] VITALS: BP 115/63; PULSE 70; RESP 18; TEMP 37.2; O2SAT 95
== END 2022-04-11 09:57 | disposition home or self-care (01) ==
PROVIDERS: Emergency Provider Emergency Medicine; PCP Family Medicine
DX: U07.1 COVID-19 (principal); B34.9 Viral infection, unspecified; R19.7 Diarrhea, unspecified; I10 Essential (primary) hypertension; I25.10 Atherosclerotic heart disease of native coronary artery without angina pectoris; E78.5 Hyperlipidemia, unspecified; K21.9 Gastro-esophageal reflux disease without esophagitis; E11.65 Type 2 diabetes mellitus with hyperglycemia; M19.90 Unspecified osteoarthritis, unspecified site; F32.A Depression, unspecified; F41.9 Anxiety disorder, unspecified; Z88.7 Allergy status to serum and vaccine; Z86.14 Personal history of Methicillin resistant Staphylococcus aureus infection; Z87.442 Personal history of urinary calculi; Z82.49 Family history of ischemic heart disease and other diseases of the circulatory system; Z83.438 Family history of other disorder of lipoprotein metabolism and other lipidemia; Z83.3 Family history of diabetes mellitus
CPT/HCPCS: 71045; 82962; 99283; C9803; U0003; U0005

== ENCOUNTER 2022-04-24 10:52 | Emergency (ER) | payer MEDICARE, SELFPAY ==
[2022-04-24 10:57] VITALS: BP 141/71; PULSE 62; RESP 18; TEMP 36.7; O2SAT 96; BMI 34.0
[2022-04-24 10:59] VITALS: BP 141/71; PULSE 62; O2SAT 95
[2022-04-24 11:01] VITALS: BP 131/70; PULSE 69; O2SAT 96
--- NOTE | 2022-04-24 11:26 | PC.NURSE ---
collected blood and sent to lab
[2022-04-24 11:31] VITALS: BP 141/79; PULSE 57; O2SAT 95
[2022-04-24 11:33] LABS: Basophils # 0.1 K/mm3 (0-0.2); Basophils % 0.9 % (0.1-2.0); Eosinophils # 0.1 K/mm3 (0.0-0.4); Eosinophils % 1.7 % (0.1-12.0); Hematocrit 40.5 % (42.0-52.0); Hemoglobin 13.1 g/dL (14.1-18.0); Lymphocytes # 1.9 K/mm3 (0.7-4.5); Lymphocytes % 24.7 % (10-50); Mean Corpuscular HGB Conc 32.4 g/dL (31.8-35.4); Mean Corpuscular Hemoglobin 33.1 pg (27.0-31.2); Mean Corpuscular Volume 102.3 fl (80-94); Mean Platelet Volume 7.9 fl (7.4-10.4); Monocytes # 0.4 K/mm3 (0.1-1.0); Monocytes % 5.3 % (1.7-9.3); Neutrophils # 5.3 K/mm3 (1.8-7.8); Neutrophils % 67.4 % (37.0-80.0); Platelet Count 310 K/mm3 (142-424); Red Blood Count 3.96 M/mm3 (4.60-6.20); Red Cell Distribution Width 14.3 % (11.5-17.5); White Blood Count 7.8 K/mm3 (4.8-10.8)
[2022-04-24 11:42] LABS: Alanine Aminotransferase 25 U/L (12-78); Albumin Level 3.8 g/dl (3.5-5.0); Albumin/Globulin Ratio 1.4 (1.1-1.8); Alkaline Phosphatase 87 U/L (38-126); Anion Gap 12.8 mEq/L (5-15); Aspartate Amino Transferase 28 U/L (17-59); Bilirubin,Total 0.4 mg/dl (0.2-1.3); Blood Urea Nitrogen 15 mg/dl (9-20); Carbon Dioxide 22 mmol/L (22.0-30.0); Chloride 109 mmol/L (98-107); Creatinine Clearance Estimated 99 mL/min (50-200); Estimated Glomerular Filt Rate 107 ml/min (>60); GFR (African American) 130 ML/MIN (>60); Globulin 2.7 g/dL (1.3-3.2); Glucose 151 mg/dl (74-100); Potassium 3.8 mmoL/L (3.5-5.1); Sodium 140 mmol/L (136-145); Total Protein,Serum 6.5 g/dl (6.3-8.2)
--- NOTE | 2022-04-24 11:58 | HMH.EDGENADL ---
ED Disposition Clinical Impression: URI (upper respiratory infection) Qualifiers: URI type: unspecified viral URI Qualified Code(s): J06.9 - Acute upper respiratory infection, unspecified Disposition: Home, Self-Care Condition on Discharge: Good Instructions: DI for Viral Upper Respiratory Infection -- Adult Referrals: Stephen Chen MD [Primary Care Provider] - - Critical Care Critical Care Time: No Attestation: On 04/24/22, the high probability of a clinically significant, sudden or life threatening deterioration of the following system(s) required my full and direct attention, intervention and personal management. The time I documented below is in addition to time spent performing reported procedures but includes the following listed in this critical care notation. Medical Decision Making - Medical Records Medical records reviewed: Yes: I reviewed the patient's medical records. - Jose Antonio Inquiry Pt receiving controlled substance: No Vital Signs: 04/24/22 10:57 04/24/22 10:59 04/24/22 11:01 Temperature 98.1 F Temperature Source Oral Pulse Rate 62 69 Pulse Rate [Left Radial] 62 Respiratory Rate 18 Blood Pressure 141/71 H 131/70 Blood Pressure [Right Arm] 141/71 H Blood Pressure Mean 112 109 Blood Pressure Mean [Right Arm] 94 Blood Pressure Source [Right Arm] Automatic Cuff Blood Pressure Position [Right Arm] Sitting 02 Sat by Pulse Oximetry 96 95 96 Oxygen Delivery Method Room Air 04/24/22 11:31 Temperature Temperature Source Pulse Rate 57 L Pulse Rate [Left Radial] Respiratory Rate Blood Pressure 141/79 H Blood Pressure [Right Arm] Blood Pressure Mean 113 Blood Pressure Mean [Right Arm] Blood Pressure Source [Right Arm] Blood Pressure Position [Right Arm] 02 Sat by Pulse Oximetry 95 Oxygen Delivery Method - Lab Data Lab Results 04/24/22 11:25: WBC 7.8, RBC 3.96 L, Hgb 13.1 L, Hct 40.5 L, MCV 102.3 H, MCH 33.1 H, MCHC 32.4, RDW 14.3, Plt Count 310, MPV 7.9, Neut % (Auto) 67.4, Lymph % (Auto) 24.7, Morrison % (Auto) 5.3, Eos % (Auto) 1.7, Baso % (Auto) 0.9, Neut # (Auto) 5.3, Lymph # (Auto) 1.9, Morrison # (Auto) 0.4, Eos # (Auto) 0.1, Baso # (Auto) 0.1 04/24/22 11:25: Sodium 140, Potassium 3.8, Chloride 109 H, Carbon Dioxide 22, Anion Gap 12.8, BUN 15, Creatinine 0.70, Estimated Creat Clear 99, Estimated GFR 107, Est GFR ( Amer) 130, Glucose 151 H, Calcium 9.0, Total Bilirubin 0.4, AST 28, ALT 25, Alkaline Phosphatase 87, Total Protein 6.5, Albumin 3.8, Globulin 2.7, Albumin/Globulin Ratio 1.4 Result diagrams: 04/24/22 11:25 04/24/22 11:25 Orders (Tests/Meds): ED MEDICATIONS Discontinued Medications Generic Name Dose Route Start Last Admin Trade Name Freq PRN Reason Stop Dose Admin Acetaminophen 500 mg 04/24/22 11:07 04/24/22 11:19 Acetaminophen 500mg Tab PO 04/24/22 11:08 500 mg ONCE ONE Administration Diphenhydramine HCl 25 mg 04/24/22 11:07 04/24/22 11:19 Diphenhydramine 25mg Capsule PO 04/24/22 11:08 25 mg ONCE ONE Administration - Reevaluation(s) Time: 12:08 Reevaluation #1: On reevaluation, patient is feeling much better. Repeat exam is benign. Patient was instructed to use Tylenol and Benadryl as needed for congestion. Needs follow-up with PCP in 40 hours. Given strict return precautions. Verbalized understanding. Medical Decision Narrative: 86-year-old male presented to the emergency department with some congestion generalized weakness myalgias. Patient saw consistent with viral syndrome. He was recently diagnosed with COVID. He is nontoxic-appearing. Hemodynamically stable. Patient be treated symptomatically. Work-up initiated. General Adult HPI - General Chief complaint: Headache Stated complaint: Bodyaches, headache, ear pain Time Seen by Provider: 04/24/22 11:00 Mode of Arrival: Ambulatory Limitations: No Limitations Description of Symptoms (Recalled from ER Triage Doc. by
[2022-04-24 12:20] VITALS: BP 146/89; PULSE 60; RESP 20; TEMP 36.7; O2SAT 96
== END 2022-04-24 12:20 | disposition home or self-care (01) ==
PROVIDERS: Emergency Provider Emergency Medicine; PCP Family Medicine
DX: J06.9 Acute upper respiratory infection, unspecified (principal); H92.09 Otalgia, unspecified ear; R09.81 Nasal congestion; R53.1 Weakness; R51.9 Headache, unspecified; Z86.16 Personal history of COVID-19; I10 Essential (primary) hypertension; I25.10 Atherosclerotic heart disease of native coronary artery without angina pectoris; K21.9 Gastro-esophageal reflux disease without esophagitis; E78.5 Hyperlipidemia, unspecified; E11.9 Type 2 diabetes mellitus without complications; M79.10 Myalgia, unspecified site; M19.90 Unspecified osteoarthritis, unspecified site; F32.A Depression, unspecified; F41.9 Anxiety disorder, unspecified; Z79.899 Other long term (current) drug therapy; Z88.7 Allergy status to serum and vaccine; Z86.14 Personal history of Methicillin resistant Staphylococcus aureus infection; Z87.442 Personal history of urinary calculi; Z82.49 Family history of ischemic heart disease and other diseases of the circulatory system; Z83.3 Family history of diabetes mellitus; Z83.438 Family history of other disorder of lipoprotein metabolism and other lipidemia
CPT/HCPCS: 80053; 85025; 99283

== ENCOUNTER → 2022-12-26 09:37 | Outpatient (CLI) | payer MEDICARE, SELFPAY ==
[2022-12-26 11:09] LABS: Chloride 102 mmol/L (98-107)
[2022-12-26 11:10] LABS: Potassium 4.6 mmoL/L (3.5-5.1); Sodium 138 mmol/L (136-145)
[2022-12-26 11:12] LABS: Alanine Aminotransferase 14 U/L (12-78); Anion Gap 13.6 mEq/L (5-15); Aspartate Amino Transferase 19 U/L (17-59); Blood Urea Nitrogen 20 mg/dl (9-20); Carbon Dioxide 27 mmol/L (22.0-30.0); Estimated Glomerular Filt Rate 107 ml/min (>60); GFR (African American) 130 ML/MIN (>60)
[2022-12-26 11:13] LABS: Albumin Level 3.8 g/dl (3.5-5.0); Albumin/Globulin Ratio 1.4 (1.1-1.8); Alkaline Phosphatase 119 U/L (38-126); Bilirubin,Total 0.6 mg/dl (0.2-1.3); Calcium 8.7 mg/dl (8.4-10.2); Chol/HDL Ratio 3.5 (1-3.5); Cholesterol 126 mg/dl (140-200); Globulin 2.8 g/dL (1.3-3.2); Glucose 155 mg/dl (74-100); HDL Cholesterol 36 mg/dl (40-60); Total Protein,Serum 6.6 g/dl (6.3-8.2); Triglycerides 113 mg/dl (30-150); VLDL Cholesterol 23 mg/dL (0-40)
[2022-12-26 11:24] LABS: Direct LDL Cholesterol 75.77 mg/dL (100-129)
[2022-12-26 12:48] LABS: Hemoglobin A1C 10.9 % (4.0-6.0)
== END ==
PROVIDERS: PCP Family Medicine; Visit Provider Family Medicine
DX: E11.9 Type 2 diabetes mellitus without complications (principal); E78.5 Hyperlipidemia, unspecified
CPT/HCPCS: 36415; 80053; 80061; 82043; 83036

== ENCOUNTER → 2023-01-09 15:53 | Outpatient (CLI) | payer MEDICARE, SELFPAY ==
--- NOTE | 2023-01-09 16:19 | XR_ITS ---
PROCEDURE INFORMATION: Exam: XR Cervical Spine Exam date and time: 01/09/2023 4:24 PM Age: 87 years old Clinical indication: Neck pain; Additional info: 644.40 TECHNIQUE: Imaging protocol: Radiologic exam of the cervical spine. Views: 4 or 5 views. COMPARISON: CT ANGIO NECK 01/01/2021 11:37 AM FINDINGS: Bones/joints: Disc space narrowing C3-C4. Soft tissues: Unremarkable. IMPRESSION: Disc space narrowing C3-C4.
== END ==
PROVIDERS: PCP Family Medicine; Visit Provider Family Medicine
DX: G44.86 Cervicogenic headache (principal)
CPT/HCPCS: 72050

== ENCOUNTER → 2023-03-28 10:09 | Outpatient (POV) | payer MEDICARE, SELFPAY | PROVIDERS: Visit Provider Specialist/Technologist | DX: Z00.00 Encounter for general adult medical examination without abnormal findings (principal) ==

== ENCOUNTER → 2023-04-05 09:49 | Outpatient (POV) | payer MEDICARE, SELFPAY | PROVIDERS: Visit Provider Specialist/Technologist | DX: Z00.00 Encounter for general adult medical examination without abnormal findings (principal) ==

== ENCOUNTER 2023-04-15 17:18 | Emergency (ER) | payer MEDICARE, SELFPAY ==
[2023-04-15 17:21] VITALS: BP 139/78; PULSE 79; RESP 20; TEMP 36.7; O2SAT 98; BMI 32.8
--- NOTE | 2023-04-15 18:20 | HMH.EDGENADL ---
Discharge Plan Disposition Patient Disposition: Home, Self-Care Prescriptions Prescriptions: New sulfamethoxazole-trimethoprim [Bactrim DS] 800-160 mg tablet 1 tab PO BID 10 Days Qty: 20 0RF cephalexin 500 mg capsule 500 mg PO QID 10 Days Qty: 40 0RF No Action atorvastatin 40 mg tablet 20 mg PO ONCE 90 Days Qty: 45 Patient Comments: TAKE 1 TABLET BY MOUTH AT BEDTIME amitriptyline 50 mg tablet 50 mg PO HS potassium chloride 20 mEq tablet,ER particles/crystals 20 meq PO DAILY furosemide 20 mg tablet 20 mg PO DAILY PRN (Reason: Edema) 90 Days buspirone 5 mg tablet 10 mg PO DAILY 30 Days Qty: 60 donepezil 5 mg tablet 5 mg PO HS duloxetine 60 mg capsule,delayed release(DR/EC) 60 mg PO DAILY tamsulosin 0.4 MG capsule 0.4 mg PO HS omeprazole 20 mg tablet,delayed release (DR/EC) 40 mg PO DAILY PRN (Reason: GERD) Referrals Follow up/Referrals: Stephen Chen MD [Primary Care Provider] - See instructions Activity Restrictions/Add. Instructions Additional Instructions/Restrictions: You have a small area of cellulitis in your anterior abdominal wall that is consistent with a bacterial infection. This seems to originate from around her umbilicus. Clinically there does not seem to be evidence of a deep space infection or intra-abdominal abscess that is communicating externally. Return with worsening symptoms specifically fever spreading redness or lack of improvement in 48 to 72 hours. Clinical Impressions Clinical Impression: Abdominal wall cellulitis Instructions Patient Instructions: DI for Laceration Repair Discharge ED Provider: Marilyn Washington General Adult HPI General Chief complaint: Wound/Laceration Stated complaint: whole in stomach nabel and r heal Time Seen by Provider: 04/15/23 18:07 Mode of Arrival: Wheelchair Source of Information: Patient Limitations: No Limitations Description of Symptoms (Recalled from ER Triage Doc. by RN): oozing fluid and redness around belly button, no recent surgery or trauma, pt also states he thinks his right heel is infected, it appears to be a callous however he does have a generalized red rash on his extremetities that he is seeing [facility] for and taking dupixent and using special soap History of Present Illness HPI narrative: 87-year-old here with multiple complaints. 1 he complains of a dry area on the right side of his heel that appears to be dry and tender. Most concerning Juaquin though he has some erythema and a little pus coming from his umbilicus. This been going on for the last few days. No fevers or chills no significant abdominal pain no injuries to this area. Denies any other symptoms Related Data Home Medications Medication Instructions Recorded Confirmed furosemide 20 mg tablet 20 mg PO DAILY PRN Edema 90 days 01/31/18 03/28/23 tamsulosin 0.4 mg capsule 0.4 mg PO HS [facility] 03/12/18 03/28/23 atorvastatin 40 mg tablet 20 mg PO ONCE Cholesterol 90 days 12/12/18 03/28/23 #45 tabs amitriptyline 50 mg tablet 50 mg PO HS 06/27/21 03/28/23 buspirone 5 mg tablet 10 mg PO DAILY Depression 30 days 06/27/21 03/28/23 #60 tabs omeprazole 20 mg tablet,delayed 40 mg PO DAILY PRN GERD 06/27/21 03/28/23 release potassium chloride 20 mEq 20 meq PO DAILY 06/27/21 03/28/23 tablet,extended release(part/cryst) donepezil 5 mg tablet 5 mg PO HS 02/14/23 03/28/23 duloxetine 60 mg capsule,delayed 60 mg PO DAILY 02/14/23 03/28/23 release Previous Rx's Medication Instructions Recorded cephalexin 500 mg capsule 500 mg PO QID 10 days #40 caps 04/15/23 sulfamethoxazole 800 1 tab PO BID 10 days #20 tabs 04/15/23 mg-trimethoprim 160 mg tablet (Bactrim DS) Allergies Allergy/AdvReac Type Severity Reaction Status Date / Time tetanus and diphtheria Allergy Intermediate I-HIVES Verified 03/28/23 11:44 toxoids [TETANUS & DIPHTHERIA TOXOIDS] PFS PFS D
[2023-04-15 18:29] VITALS: BP 123/67; PULSE 77; RESP 20; TEMP 36.7; O2SAT 98
== END 2023-04-15 18:30 | disposition home or self-care (01) ==
PROVIDERS: Emergency Provider Student in an Organized Health Care Education/Training Program; PCP Family Medicine
DX: L03.311 Cellulitis of abdominal wall (principal)
CPT/HCPCS: 99283

== ENCOUNTER → 2023-04-18 14:28 | Outpatient (CLI) | payer MEDICARE, SELFPAY ==
[2023-04-18 15:23] LABS: Basophils % 0.4 % (0.1-2.0); Eosinophils # 0.1 K/mm3 (0.0-0.4); Eosinophils % 1.4 % (0.1-12.0); Hematocrit 45.3 % (42.0-52.0); Hemoglobin 13.8 g/dL (14.1-18.0); Lymphocytes # 1.9 K/mm3 (0.7-4.5); Lymphocytes % 26.4 % (10-50); Mean Corpuscular HGB Conc 30.6 g/dL (31.8-35.4); Mean Corpuscular Hemoglobin 29.9 pg (27.0-31.2); Mean Corpuscular Volume 97.9 fl (80-94); Mean Platelet Volume 7.9 fl (7.4-10.4); Monocytes # 0.4 K/mm3 (0.1-1.0); Monocytes % 5.4 % (1.7-9.3); Neutrophils # 4.8 K/mm3 (1.8-7.8); Neutrophils % 66.4 % (37.0-80.0); Platelet Count 319 K/mm3 (142-424); Red Blood Count 4.63 M/mm3 (4.60-6.20); Red Cell Distribution Width 14.4 % (11.5-17.5); White Blood Count 7.3 K/mm3 (4.8-10.8)
[2023-04-18 16:03] LABS: Erythrocyte Sedimentation Rate 31 mm/hr (0-20)
[2023-04-18 16:04] LABS: Alanine Aminotransferase 21 U/L (12-78); Albumin Level 4.3 g/dl (3.5-5.0); Albumin/Globulin Ratio 1.4 (1.1-1.8); Alkaline Phosphatase 114 U/L (38-126); Anion Gap 17.3 mEq/L (5-15); Aspartate Amino Transferase 22 U/L (17-59); Bilirubin,Total 0.3 mg/dl (0.2-1.3); Blood Urea Nitrogen 24 mg/dl (9-20); Calcium 9.7 mg/dl (8.4-10.2); Carbon Dioxide 24 mmol/L (22.0-30.0); Chloride 103 mmol/L (98-107); Estimated Glomerular Filt Rate 58 ml/min (>60); GFR (African American) 70 ML/MIN (>60); Globulin 3.1 g/dL (1.3-3.2); Glucose 153 mg/dl (74-100); Potassium 5.3 mmoL/L (3.5-5.1); Sodium 139 mmol/L (136-145); Total Protein,Serum 7.4 g/dl (6.3-8.2)
[2023-04-18 16:09] LABS: C-Reactive Protein 5.2 mg/L (0-4)
[2023-04-18 17:11] LABS: Vitamin B12 784 pg/mL (239-931)
== END ==
PROVIDERS: PCP Family Medicine; Visit Provider Specialist
DX: R42 Dizziness and giddiness (principal); M79.10 Myalgia, unspecified site; R51.9 Headache, unspecified; D75.89 Other specified diseases of blood and blood-forming organs; E11.9 Type 2 diabetes mellitus without complications; Z79.84 Long term (current) use of oral hypoglycemic drugs
CPT/HCPCS: 36415; 80053; 82607; 82746; 85025; 85651; 86140

== ENCOUNTER → 2023-04-25 09:23 | Outpatient (CLI) | payer MEDICARE, SELFPAY ==
--- NOTE | 2023-04-25 09:29 | MR_ITS ---
FINAL REPORT CLINICAL HISTORY: Daily headache X 2 YEARS RINGING IN EARS 25 ML PROHANCE GIVEN FINDINGS: Multiplanar MR imaging of the brain was performed without and with contrast. There is mild age-appropriate atrophy. Scattered foci of increased T2 signal are seen in the cerebral white matter that have a nonspecific appearance but likely represent mild chronic ischemic/gliotic changes. There is no evidence of intracranial hemorrhage or mass. No abnormal ventricular dilatation is identified. There is no evidence of shift of the midline structures. No abnormal extra-axial fluid collection is seen. No area of abnormal restricted diffusion is identified. The posterior fossa and brainstem have an unremarkable appearance. No abnormal contrast enhancement is seen. Normal major vessel vascular flow voids are seen. IMPRESSION: Mild atrophy and chronic ischemic/gliotic changes. No acute intracranial abnormality. Reviewed, Interpreted and Dictated by Ronnie Foreman III, MD Transcribed by Adeline Chatman Authenticated and . [facility]
== END ==
PROVIDERS: PCP Family Medicine; Visit Provider Specialist
DX: R51.9 Headache, unspecified (principal)
CPT/HCPCS: 70553; A9576

== ENCOUNTER → 2023-05-16 12:45 | Outpatient (CLI) | payer MEDICARE, SELFPAY ==
--- NOTE | 2023-05-16 12:52 | XR_ITS ---
FINAL REPORT CLINICAL HISTORY: Cervical spondylosis pain , shoulders neck , back of head residential down back which causes headaches COMPARISON: 01/09/2023 FINDINGS: Images of the cervical spine were obtained including flexion and extension views. There is no acute fracture or dislocation. Vertebrae are normal in height. There is no malalignment. There is moderate disc space narrowing at C3-4. There is mild to space narrowing at C4-5 and C5-6. There is no evidence of instability on flexion or extension views. IMPRESSION: Degenerative changes with no acute bony abnormality. No evidence of instability on flexion or extension. Reviewed, Interpreted and Dictated by Mao Philip MD Transcribed by Ludmila Feldman Authenticated and [facility]
== END ==
PROVIDERS: PCP Family Medicine; Visit Provider Specialist
DX: M54.2 Cervicalgia (principal)
CPT/HCPCS: 72052

== ENCOUNTER 2023-06-16 16:50 | Inpatient (IN) | payer MEDICARE, SELFPAY ==
[2023-06-16] VITALS (7 sets, daily range): BP systolic 120–133; BP diastolic 76–88; PULSE 85–97; RESP 12–24; TEMP 36.8–37.2; O2SAT 85–96; BMI 34.0; BMI 33.0
--- NOTE | 2023-06-16 16:50 | ECG_ITS ---
APPROVED REPORT Exam: Resting ECG HR:96 bpm ECG Measurements Heart Rate 96 AXES NV 232 P 89 QRSd 132 QRS -28 QT 358 T 104 QTc 412 Conclusion SINUS RHYTHM WITH FIRST DEGREE AV BLOCK WITH OCCASIONAL SUPRAVENTRICULAR PREMATURE COMPLEXES INTRAVENTRICULAR CONDUCTION DELAY [130+ ms QRS DURATION] SEPTAL MYOCARDIAL INFARCTION , OF INDETERMINATE AGE [40+ ms Q WAVE IN V1/V2] ABNORMAL ECG UNCONFIRMED REPORT Electronically signed by : Gianni Galeano MD 06/18/2023 17:13:18
--- NOTE | 2023-06-16 17:03 | XR_ITS ---
PROCEDURE INFORMATION: Exam: XR Chest Exam date and time: 06/16/2023 5:34 PM Age: 87 years old Clinical indication: Shortness of breath; Additional info: SOA TECHNIQUE: Imaging protocol: Radiologic exam of the chest. Views: 1 view. COMPARISON: CR XR CHEST PORTABLE 04/11/2022 9:48 AM FINDINGS: Lungs: Unremarkable. No consolidation. Pleural spaces: Unremarkable. No pleural effusion. No pneumothorax. Heart/Mediastinum: Unremarkable. No cardiomegaly. Bones/joints: Right shoulder prosthesis remains in place. Moderate degenerative changes noted throughout the spine. IMPRESSION: No acute disease
[2023-06-16 17:14] LABS: Basophils % 0.3 % (0.1-2.0); Eosinophils # 0.1 K/mm3 (0.0-0.4); Hematocrit 39.8 % (42.0-52.0); Hemoglobin 12.7 g/dL (14.1-18.0); Lymphocytes # 1.9 K/mm3 (0.7-4.5); Lymphocytes % 20.5 % (10-50); Mean Corpuscular HGB Conc 31.8 g/dL (31.8-35.4); Mean Corpuscular Volume 97.5 fl (80-94); Monocytes # 0.5 K/mm3 (0.1-1.0); Monocytes % 5.5 % (1.7-9.3); Neutrophils # 6.5 K/mm3 (1.8-7.8); Neutrophils % 72.6 % (37.0-80.0); Platelet Count 312 K/mm3 (142-424); Red Blood Count 4.09 M/mm3 (4.60-6.20); Red Cell Distribution Width 15.3 % (11.5-17.5)
[2023-06-16 17:21] LABS: VBG Base Excess -2.8 mmol/L (-2.4-2.3); VBG HCO3 21.7 mmol/L (23-30); VBG Oxygen Saturation 95.6 % (50-70); VBG PCO2 34.3 mmol/L (35-51); VBG PH 7.42 mmol/L (7.31-7.41); VBG PO2 80.6 mmol/L (28-40); VBG Total CO2 22.8 mmol/L (23-27)
[2023-06-16 17:21] LABS: Alanine Aminotransferase 28 U/L (12-78); Albumin/Globulin Ratio 1.1 (1.1-1.8); Alkaline Phosphatase 109 U/L (38-126); Anion Gap 14.4 mEq/L (5-15); Aspartate Amino Transferase 28 U/L (17-59); Bilirubin,Total 0.8 mg/dl (0.2-1.3); Blood Urea Nitrogen 16 mg/dl (9-20); Carbon Dioxide 25 mmol/L (22.0-30.0); Chloride 101 mmol/L (98-107); Creatinine Clearance Estimated 97 mL/min (50-200); Estimated Glomerular Filt Rate 107 ml/min (>60); GFR (African American) 130 ML/MIN (>60); Globulin 3.5 g/dL (1.3-3.2); Glucose 186 mg/dl (74-100); Lipase 28 U/L (23-300); Potassium 4.4 mmoL/L (3.5-5.1); Sodium 136 mmol/L (136-145); Total Protein,Serum 7.5 g/dl (6.3-8.2)
--- NOTE | 2023-06-16 17:28 | HMH.EDGENADL ---
Discharge Plan Disposition Patient Disposition: Admitted Chief Complaint: Shortness of Breath/Dyspnea Prescriptions Prescriptions: No Action atorvastatin 40 mg tablet 40 mg PO ONCE 90 Days Qty: 90 Patient Comments: TAKE 1 TABLET BY MOUTH AT BEDTIME duloxetine 60 mg capsule,delayed release(DR/EC) 60 mg PO DAILY donepezil [Aricept] 5 mg tablet 5 mg PO HS acetaminophen [Tylenol Extra Strength] 500 mg tablet 500 mg PO Q6H PRN cholecalciferol (vitamin D3) 125 mcg (5,000 unit) capsule 125 mcg PO DAILY ascorbic acid (vitamin C) 500 mg capsule See Rx Instructions PO .COMPLEX Rx Instructions: orally daily; metformin 500 mg tablet 1,000 mg PO DAILY Rx Instructions: 1000mg in the am and 500mg at hs Qulipta 60 mg tablet 60 mg PO DAILY B complex-vitamin C-folic acid 5 mg tablet 1 tab PO DAILY Qty: 30 6RF magnesium chloride 64 mg tablet,delayed release (DR/EC) 128 mg PO DAILY Qty: 60 6RF folic acid 1 mg tablet 1 mg PO DAILY glipizide 5 mg tablet 5 mg PO DAILY tamsulosin 0.4 MG capsule 0.4 mg PO HS Referrals Follow up/Referrals: Stephen Chen MD [Primary Care Provider] - See instructions Clinical Impressions Clinical Impression: CHF (congestive heart failure), Increasing shortness of breath Discharge ED Provider: Otilio Macario General Adult HPI General Chief complaint: Shortness of Breath/Dyspnea Stated complaint: SOA Time Seen by Provider: 06/16/23 16:50 Mode of Arrival: Wheelchair Source of Information: Patient Limitations: No Limitations Description of Symptoms (Recalled from ER Triage Doc. by RN): pt to ed c/o shortness of breath, chest discomfort and headache that started x2 days ago. pt denies cardiac hx. History of Present Illness HPI narrative: Patient with hypertension, hyperlipidemia presenting with shortness of breath. Patient states has been short of breath since yesterday, 06/15. Was sitting down when it started. Denies any overt chest pain. Shortness of breath is made worse with exertion and speaking, but not made worse with position. He states he has been peeing more often than usual as well. Denies any overt lower extremity swelling, diaphoresis, neurologic deficits, or any other concerns. Patient states that he used to be on Lasix, but has not taken it in a couple of years. Related Data Home Medications Medication Instructions Recorded Confirmed tamsulosin 0.4 mg capsule 0.4 mg PO HS [facility] 03/12/18 05/16/23 duloxetine 60 mg capsule,delayed 60 mg PO DAILY 02/14/23 05/16/23 release acetaminophen 500 mg tablet 500 mg PO Q6H PRN 04/16/23 05/16/23 (Tylenol Extra Strength) ascorbic acid (vitamin C) 500 mg See Rx Instructions PO .COMPLEX 04/16/23 05/16/23 capsule atorvastatin 40 mg tablet 40 mg PO ONCE Cholesterol 90 days 04/16/23 05/16/23 #90 tabs cholecalciferol (vitamin D3) 125 125 mcg PO DAILY 04/16/23 05/16/23 mcg (5,000 unit) capsule donepezil 5 mg tablet (Aricept) 5 mg PO HS 04/16/23 05/16/23 atogepant 60 mg tablet (Qulipta) 60 mg PO DAILY 05/16/23 05/16/23 metformin 500 mg tablet 1,000 mg PO DAILY 05/16/23 05/16/23 folic acid 1 mg tablet 1 mg PO DAILY 06/13/23 06/13/23 glipizide 5 mg tablet 5 mg PO DAILY 06/13/23 06/13/23 Previous Rx's Medication Instructions Recorded magnesium chloride 64 mg 128 mg PO DAILY #60 tabs 05/16/23 (magnesium chloride) tablet,delayed release vitamin B complex-vitamin C-folic 1 tab PO DAILY Macrocytosis #30 05/16/23 acid 5 mg tablet tabs Allergies Allergy/AdvReac Type Severity Reaction Status Date / Time tetanus and diphtheria Allergy Intermediate I-HIVES Verified 06/13/23 11:03 toxoids [TETANUS & DIPHTHERIA TOXOIDS] [facility] Disclaimer: The information contained in this section may have been updated after the patient was seen, as this information can be updated by other users. Medical H
[2023-06-16 17:30] LABS: NT Pro Brain Natriuretic Pep. 9480 pg/mL (0-450)
[2023-06-16 17:33] LABS: Troponin I 0.02 ng/ml (0.00-0.034)
--- NOTE | 2023-06-16 18:48 | PC.NURSE ---
emptied 550 cc out of urinal
--- NOTE | 2023-06-16 19:21 | PC.NURSE ---
1909 RECEIVED PHONE REPORT FROM SEAMUS RN/ED NURSE. 87 YO MALE ADMITTING FOR CHF/SOA. TO TRANSPORT VIA W/C TO ROOM 204.
--- NOTE | 2023-06-16 19:31 | PC.NURSE ---
1929 PATIENT ARRIVED TO THE FLOOR VIA W/C. ADMITTED TO ROOM 204. NEELA PAREKH WITH PATIENT.
--- NOTE | 2023-06-16 19:32 | PC.NURSE ---
Pt arrived to floor via wheelchair @ 193
--- NOTE | 2023-06-16 20:22 | PC.NURSE ---
98$ and wallet locked in administrative personal assistant pt room. verified by pt and Chelsey Ramos RN
[2023-06-16 20:25] LABS: Lactic Acid 1.8 mmol/L (0.7-2.1)
[2023-06-16 20:38] LABS: Troponin I 0.02 ng/ml (0.00-0.034)
--- NOTE | 2023-06-16 20:59 | INFXCTL.NOTE ---
2044 DR TREJO NOTIFIED RE PATIENT'S HS MEDS. ORDER RECEIVED TO GIVE LIPITOR, METFORMIN, DONEPEZIL, AND FLOMAX TONIGHT. DIET LO NA DIET. TELEMETRY AND CONT PULSE OX. FAMILY/PCP TO FOLLOW UP IN AM.
[2023-06-17] VITALS (10 sets, daily range): BP systolic 107–133; BP diastolic 51–85; PULSE 63–100; RESP 18–20; TEMP 36.5–37.7; O2SAT 93–96; BMI 32.9
[2023-06-17 00:04] LABS: Troponin I 0.02 ng/ml (0.00-0.034)
--- NOTE | 2023-06-17 04:38 | PC.NURSE ---
HAS RESTED WELL. NO C/O SOA/CP/DISCOMFORT. BED ALARM IN USE. TELE READING SINUS ARRHYTHMIA/1ST DEGREE AVB/BBB/PACs./PVCs. VSS/AFEBRILE. 02 AT 2LNC.
[2023-06-17 07:59] LABS: Chloride 102 mmol/L (98-107); Potassium 3.8 mmoL/L (3.5-5.1); Sodium 138 mmol/L (136-145)
[2023-06-17 08:01] LABS: Blood Urea Nitrogen 17 mg/dl (9-20); Creatinine Clearance Estimated 94 mL/min (50-200); Estimated Glomerular Filt Rate 92 ml/min (>60); GFR (African American) 111 ML/MIN (>60)
[2023-06-17 08:02] LABS: Anion Gap 9.8 mEq/L (5-15); Calcium 8.4 mg/dl (8.4-10.2); Carbon Dioxide 30 mmol/L (22.0-30.0); Glucose 177 mg/dl (74-100)
[2023-06-17 09:00] LABS: NT Pro Brain Natriuretic Pep. 7480 pg/mL (0-450)
--- NOTE | 2023-06-17 09:10 | HMH.PHAINT1 ---
Pharmacy Intervention Comments: MEDICATION RECONCILIATION COMPLETED ON PATIENT USING EXTERNAL FILL HISTORY FROM PHARMACY AND LIST FROM NEUOROLOGY. PER NOTE FROM NEUROLOGY, PATIENT NO LONGER TAKING LASIX. -JEN LANGLEY, SAMEERAD
--- NOTE | 2023-06-17 14:21 | EXP.HP ---
History of Present Illness *Admission Date: 06/16/23 *Reason for visit:: Dyspnea with exertion *History of present illness: 87-year-old white male with history of coronary atherosclerosis with single-vessel stent about a year and a half ago, who before that episode had an abnormal stress test with an EF of 41% but echo with normal EF, who has been in his normal state of health living by himself in [place] until a couple days ago began to have dyspnea with some pressure type chest pain. He reported to the ER. He was found of elevated BNP, increased pulmonary markings and was given Lasix. He diuresed about 600 mils in the ER and felt much better. Admitted to hospital to work-up probable worse/new diagnosis of CHF. [facility] Disclaimer: The information contained in this section may have been updated after the patient was seen, as this information can be updated by other users. Medical History Cervicogenic headache Hearing loss High anion gap metabolic acidosis Hypertension Tinnitus of both ears Surgical History History of knee replacement History of right hip replacement Social History (Updated 06/16/23 @ 19:55 by Marcela Walter RN) Smoking Status: Never smoker alcohol intake: never substance use type: denies use current occupational status: retired Travel in the last 8 weeks: Inside the [facility] housing: house lives independently: Yes marital status: current occupational exposures/hazards: No caffeine: Yes Meds Home Medications and Allergies Home Medications Medication Instructions Recorded Confirmed Type tamsulosin 0.4 mg capsule 0.4 mg PO HS Prostate 03/12/18 06/17/23 History duloxetine 60 mg capsule,delayed 60 mg PO DAILY Mood 02/14/23 06/16/23 History release acetaminophen 500 mg tablet 500 mg PO Q6HP PRN Mild Pain 04/16/23 06/17/23 History (Tylenol Extra Strength) (Scale Score 1-4) ascorbic acid (vitamin C) 500 mg 1,000 mg PO DAILY Supplement 04/16/23 06/16/23 History capsule atorvastatin 40 mg tablet 40 mg PO DAILY Cholesterol 90 days 04/16/23 06/17/23 History #90 tabs cholecalciferol (vitamin D3) 125 125 mcg PO DAILY Supplement 04/16/23 06/16/23 History mcg (5,000 unit) capsule donepezil 5 mg tablet (Aricept) 5 mg PO HS Memory 04/16/23 06/16/23 History atogepant 60 mg tablet (Qulipta) 60 mg PO DAILY migraines 05/16/23 06/16/23 History magnesium chloride 64 mg 128 mg PO DAILY #60 tabs 05/16/23 06/16/23 Rx (magnesium chloride) tablet,delayed release metformin 500 mg tablet 1,000 mg PO DAILY Diabetes 05/16/23 06/16/23 History vitamin B complex-vitamin C-folic 1 tab PO DAILY Macrocytosis #30 05/16/23 06/16/23 Rx acid 5 mg tablet tabs folic acid 1 mg tablet 1 mg PO DAILY Supplement 06/13/23 06/16/23 History glipizide 5 mg tablet 10 mg PO DAILY Diabetes 06/13/23 06/17/23 History metformin 500 mg tablet 500 mg PO HS Diabetes 06/16/23 06/16/23 History sitagliptin phosphate 50 mg tablet 50 mg PO DAILY Diabetes 06/17/23 06/17/23 History (Januvia) New Prescriptions to Start Prescriptions: Allergies Allergy/AdvReac Type Severity Reaction Status Date / Time tetanus and diphtheria Allergy Intermediate I-HIVES Verified 06/13/23 11:03 toxoids [TETANUS & DIPHTHERIA TOXOIDS] Exam Data for Last 24 hours Vital signs and Labs for Last 24 Hours: Temp Pulse Resp BP Pulse Ox O2 Del Method O2 Flow Rate 97.7 F 100 H 18 133/85 94 L Room Air 1 06/17/23 11:08 06/17/23 12:01 06/17/23 11:08 06/17/23 11:08 06/17/23 11:08 06/17/23 13:00 06/17/23 11:08 Laboratory Results - last 24 hr 06/16/23 17:05: WBC 9.0, RBC 4.09 L, Hgb 12.7 L, Hct 39.8 L, MCV 97.5 H, MCH 31.0, MCHC 31.8, RDW 15.3, Plt Count 312, MPV 9.0, Neut % (Auto) 72.6, Lymph % (Auto) 20.5, [place] % (Auto) 5.5, Eos % (Auto) 1.0, Baso % (Auto) 0.
[2023-06-17 20:21] LABS: POC Glucose,Bedside 225 (70-110)
[2023-06-18] VITALS: BP 107/50; PULSE 88; PULSE 90; RESP 18; TEMP 37.4; O2SAT 94
[2023-06-18 04:00] VITALS: BP 148/84; PULSE 80; PULSE 88; RESP 20; TEMP 37.1; O2SAT 96; BMI 32.6
--- NOTE | 2023-06-18 05:09 | PC.NURSE ---
Patient has had a decent night. RN did again have to put 2L NC when patient was asleep would drop to 85-88 O2. With 2L would stat 92-94 on pulse ox. Patient was restless and did not get much sleep.
[2023-06-18 06:07] LABS: POC Glucose,Bedside 149 (70-110)
--- NOTE | 2023-06-18 06:08 | CA_ITS ---
APPROVED REPORT EXAM: Comprehensive 2D, Doppler, and color-flow Echocardiogram Information Security Consultant: Liliya Gan CRT Ht: 6 ft 3 in Wt: 270lbs BSA: 2.49 BP: 133/85 mmHg Indications: Chest Pain, Shortness of Breath, Hyperlipidemia, Hypertension/HDD 2D Dimensions LVOT 1.90 cm (M/F) 1.5-2.5 LA Volume 36.80 mL LA Volume Index 14.72 mL/m2 (M/F) 16-34 M-Mode Dimensions RVDd 3.27 cm (0.9-2.6) LA Diam 4.56 cm (1.9-4.0) LVDd 6.04 cm (3.5-5.7) Ao Diam 4.72 cm (2.0-3.7) LVDs 4.87 cm (3.5-5.7) IVSd 1.18 cm (0.6-1.1) PWd 1.10 cm (0.6-1.1) EF (Teich) 39.20% FS 19.40% EDV (Teich) 182.80 mL TAPSE 2.51 (<1.7) ESV (Teich) 111.20 mL LV Diastology E Decel Time 217.00 (160-240 msec) E/A Ratio 1.1 MED E' 4.10 (< 7 cm/sec) MED A' 7.10 cm/s E'/MED E' Ratio 13.78 (>14) LAT E' 6.60 (<10 cm/sec) LAT A' 9.70 cm/s E/LAT E' Ratio 8.56 (>14) Aortic Valve LVOT Max 185.00 (70-110 cm/s) LVOT VTI 37.16 cm AoV Peak Chance. 227.00 (50-130 cm/s) AO Peak GR. 20.60 mmHg AO Mean GR. 11.30 (<5 mmHg) AO VTI 50.35 (18-25 cm) JACQUES (VTI) 1.20 (2.5-4.5 cm2) Mitral Valve MV E Max Chance. 57.00 (40-130 cm/s) MV A Velocity 52.00 (40-130 cm/s) E/A Ratio 1.09 MV Decel. Time 217.00 (160-240 ms) MV PHT 63.00 ms Pulmonary Valve PV Peak Velocity 143.00 (50-150 cm/s) Tricuspid Valve TR P. Velocity 160.00 cm/s RAP Estimate 10.00 mmHg RVSP 20.20 mmHg Left Ventricle Left ventricle is mildly dilated (LVEDVi=78 ml/m2). The left ventricular systolic function is normal. The left ventricular ejection fraction is within the normal range. There is increased LV wall thickness. Segmental wall motion is difficult to estimate due to poorly visualized endocardial rodriguez. Transmitral Doppler flow pattern suggests impaired LV relaxation. LVEF is 35-40%. Right Ventricle The right ventricle is normal size. The right ventricular systolic function is normal. Atria The left atrium size is normal. The right atrium size is normal. There is no Doppler evidence of interatrial shunt. Aortic Valve The aortic valve is moderately thickened. The AV leaflets appear to have restricted motion. Moderate aortic stenosis. JACQUES by 2D planimetry is 1.3 cm???. Doppler parameters show peak velocity is 2.4 m/s. Mean AV gradient is 11 mmHg, max AV gradient is 22 mmHg. SVi=43 ml/m2. DI=0.74 (LVOT diameter measured at 1.9 cm. Mild aortic regurgitation. Mitral Valve The mitral valve is mildly thickened. No evidence of mitral valve stenosis. Mild mitral regurgitation. Tricuspid Valve The tricuspid valve leaflets are thin and pliable. Trace tricuspid regurgitation. RVSP is normal. Pulmonic Valve The pulmonary valve is normal in structure. Trace pulmonic regurgitation. Great Vessels The aortic root is normal in size. The ascending aorta is normal in size. IVC is normal in size and collapses >50% with inspiration. Pericardium Small, circumferential pericardial effusion. No echo indications of tamponade. Other Information Study Quality: Technically Difficult Conclusion This was a technically difficult study due to poor acoustic windows. Mild LV dilation with moderate reduction in LV systolic function (LVEF 35-40%). Moderately thickened aortic valve with moderate aortic stenosis (JACQUES by 2D planimetry is 1.3 cm???. Doppler parameters show peak velocity is 2.4 m/s. Mean AV gradient is 11 mmHg, max AV gradient is 22 mmHg. SVi=43 ml/m2. DI=0.74 (LVOT diameter measured at 1.9 cm). Mild AI, mild MR. Small, circumferential pericardial effusion. No echo indications of tamponade.
[2023-06-18 06:28] LABS: Basophils % 0.4 % (0.1-2.0); Eosinophils # 0.1 K/mm3 (0.0-0.4); Hematocrit 42.1 % (42.0-52.0); Hemoglobin 13.3 g/dL (14.1-18.0); Lymphocytes # 1.8 K/mm3 (0.7-4.5); Lymphocytes % 27.6 % (10-50); Mean Corpuscular HGB Conc 31.5 g/dL (31.8-35.4); Mean Corpuscular Hemoglobin 31.1 pg (27.0-31.2); Mean Corpuscular Volume 98.8 fl (80-94); Mean Platelet Volume 7.9 fl (7.4-10.4); Monocytes # 0.7 K/mm3 (0.1-1.0); Neutrophils % 59.9 % (37.0-80.0); Platelet Count 286 K/mm3 (142-424); Red Blood Count 4.26 M/mm3 (4.60-6.20); Red Cell Distribution Width 15.2 % (11.5-17.5); White Blood Count 6.6 K/mm3 (4.8-10.8)
[2023-06-18 06:31] LABS: Chloride 102 mmol/L (98-107); Potassium 4.6 mmoL/L (3.5-5.1); Sodium 137 mmol/L (136-145)
[2023-06-18 06:34] LABS: Anion Gap 13.6 mEq/L (5-15); Blood Urea Nitrogen 22 mg/dl (9-20); Calcium 8.9 mg/dl (8.4-10.2); Carbon Dioxide 26 mmol/L (22.0-30.0); Creatinine Clearance Estimated 93 mL/min (50-200); Estimated Glomerular Filt Rate 92 ml/min (>60); GFR (African American) 111 ML/MIN (>60); Glucose 159 mg/dl (74-100)
--- NOTE | 2023-06-18 06:52 | ECG_ITS ---
APPROVED REPORT Exam: Resting ECG HR:76 bpm ECG Measurements Heart Rate 76 AXES IL 224 P 80 QRSd 142 QRS -23 QT 419 T 94 QTc 449 Conclusion LEFT BUNDLE BRANCH BLOCK [120+ ms QRS DURATION, 80+ ms Q/S IN V1/V2, 85+ ms R IN I/aVL/V5/V6] ABNORMAL ECG UNCONFIRMED REPORT Electronically signed by : Gianni Galeano MD 06/18/2023 17:07:36
[2023-06-18 07:36] VITALS: BP 100/50; PULSE 82; RESP 18; TEMP 37; O2SAT 94
[2023-06-18 08:00] VITALS: PULSE 80; O2SAT 93
--- NOTE | 2023-06-18 08:29 | EXP.DC.SUM ---
General Admission date:: 06/16/23 Discharge date: 06/18/23 HPI HPI HPI: 87-year-old white male with history of coronary atherosclerosis with single-vessel stent about a year and a half ago, who before that episode had an abnormal stress test with an EF of 41% but echo with normal EF, who has been in his normal state of health living by himself in [place] until a couple days ago began to have dyspnea with some pressure type chest pain. He reported to the ER. He was found of elevated BNP, increased pulmonary markings and was given Lasix. He diuresed about 600 mils in the ER and felt much better. Admitted to hospital to work-up probable worse/new diagnosis of CHF. Hospital Course Hospital Course Hospital Course: Patient was admitted. Diuresed with 40 mg of IV Lasix x2 doses over the first 24 hours. Had a diuresis of about 3 L. [place] much better. Kidney function and electrolytes remained stable. Echocardiogram was done this morning with preliminary results of an ejection fraction of 40 to 45%. Final report pending. Diagnosis of HFrEF was made. I think patient's probably had this for a while but I think has been lost to follow-up from his director emergency department. Given patient's brisk response to Lasix I think he will do well with heart failure therapy and my plan is to discharge him home with Entresto and Farxiga in addition to his meds as noted below. I do not think he will need daily Lasix at this point. I have asked him to stop his glipizide given the addition of Farxiga and stop Januvia given the addition of Farxiga along with his metformin. Patient has a problem list history of angioedema, but in discussing this with him he has never had swelling of his lips or face or medication. He does not know where this diagnosis came from. He does not recall being on an KIKE inhibitor in the past and cannot remember the names of any, and KIKE inhibitors and does not think he has ever had swelling because of the medication. He did have nocturnal hypoxia in the hospital with O2 saturations in the mid 80s, resolved with the application of 2 L nasal cannula at night, so we will prescribe this. He wishes to follow with his previous cardiology group, in [place] and we will make an appointment with this group for follow-up. He has an appointment with his primary family practitioner this week, Dr. Chen, and I have urged him to keep this appointment. Exam Data for Last 24 hours Vital signs and Labs for Last 24 Hours: Temp Pulse Resp BP Pulse Ox O2 Del Method O2 Flow Rate 98.6 F 82 18 100/50 L 94 L Nasal Cannula 3 06/18/23 07:36 06/18/23 07:36 06/18/23 07:36 06/18/23 07:36 06/18/23 07:36 06/18/23 07:36 06/18/23 07:36 Laboratory Results - last 24 hr 06/17/23 07:00: NT-Pro-B Natriuret Pep 7480 H 06/17/23 20:04: POC Glucose 225 H 06/18/23 06:00: WBC 6.6 D, RBC 4.26 L, Hgb 13.3 L, Hct 42.1, MCV 98.8 H, MCH 31.1, MCHC 31.5 L, RDW 15.2, Plt Count 286, MPV 7.9, Neut % (Auto) 59.9, Lymph % (Auto) 27.6, [place] % (Auto) 10.0 H, Eos % (Auto) 2.0, Baso % (Auto) 0.4, Neut # (Auto) 4.0, Lymph # (Auto) 1.8, [place] # (Auto) 0.7, Eos # (Auto) 0.1, Baso # (Auto) 0.0, Sodium 137, Potassium 4.6 D, Chloride 102, Carbon Dioxide 26, Anion Gap 13.6, BUN 22 H D, Creatinine 0.80, Estimated Creat Clear 93, Estimated GFR 92, Est GFR ( Amer) 111, Glucose 159 H, Calcium 8.9 06/18/23 06:01: POC Glucose 149 H I & O for Last 24 hours: Intake & Output 06/15/23 06/16/23 06/17/23 06/18/23 11:59 11:59 11:59 11:59 Intake Total 950 / 950 1080 / 1080 Output Total 3775 / 3775 1200 / 1200 Balance -2825 / -2825 -120 / -120 Weight 270 lb 3 oz 268 lb Constitutional Constitutional: no acute distress *Routine HEENT Exam Head: Present normocephalic Eye: Present EOMI and PERRL ENT: Present mucous membranes moist *Routine Neck Exam Neck: Present supple; Absent lymphadenopathy *Routine Respiratory Exam Respiratory: Present CTA bilaterally *Routine C
--- NOTE | 2023-06-18 09:14 | CARE MANAGER ---
Patient room air saturation is 85% at rest.
--- NOTE | 2023-06-19 12:39 | CARE MANAGER ---
Spoke with patient's son. He states patient is fine. They picked up medication and are aware of follow up appointments. Denies any questions or concerns. ELLEN Higuera
== END 2023-06-18 11:08 | disposition home or self-care (01) | DRG 291 ==
LOC: ER 18:19 → 2ND 18:44
PROVIDERS: Admitting Provider Internal Medicine Adolescent Medicine; Emergency Provider Emergency Medicine; PCP Family Medicine; Visit Provider Internal Medicine Adolescent Medicine
DX: I11.0 Hypertensive heart disease with heart failure (principal); I50.21 Acute systolic (congestive) heart failure; N40.1 Benign prostatic hyperplasia with lower urinary tract symptoms; R35.1 Nocturia; Z79.899 Other long term (current) drug therapy; Z96.659 Presence of unspecified artificial knee joint; Z96.641 Presence of right artificial hip joint; Z95.5 Presence of coronary angioplasty implant and graft
CPT/HCPCS: 36415; 71045; 80048; 80053; 82803; 82962; 83605; 83690; 83880; 84484; 85025; 93005; 93306; 99285; G0378

== ENCOUNTER 2023-07-17 14:00 | Outpatient (RCR) | payer MEDICARE, SELFPAY | END 2023-08-13 15:24 | disposition home or self-care (01) | LOC: PT 14:00 | PROVIDERS: PCP Family Medicine; Visit Provider Nurse Practitioner Family | DX: M54.2 Cervicalgia (principal) | CPT/HCPCS: 20560; 97010; 97012; 97035; 97110; 97140; 97163; 97164 ==

== ENCOUNTER 2023-08-13 11:29 | Emergency (ER) | payer MEDICARE, SELFPAY ==
[2023-08-13] VITALS (7 sets, daily range): BP systolic 113–135; BP diastolic 71–98; PULSE 67–83; RESP 14–25; TEMP 36.5–36.6; O2SAT 94–97; BMI 32.4
--- NOTE | 2023-08-13 11:31 | ECG_ITS ---
APPROVED REPORT Exam: Resting ECG HR:74 bpm ECG Measurements Heart Rate 74 AXES QRSd 141 QRS -21 QT 408 T 132 QTc 435 Conclusion ATRIAL FIBRILLATION WITH ABERRANT CONDUCTION OR VENTRICULAR PREMATURE COMPLEXES LEFT BUNDLE BRANCH BLOCK [120+ ms QRS DURATION, 80+ ms Q/S IN V1/V2, 85+ ms R IN I/aVL/V5/V6] ABNORMAL ECG UNCONFIRMED REPORT Electronically signed by : Gianni Galeano MD 08/15/2023 18:28:32
--- NOTE | 2023-08-13 11:31 | HMH.EDGENADL ---
Discharge Plan Disposition Chief Complaint: Shortness of Breath/Dyspnea Prescriptions Prescriptions: New hydrochlorothiazide 25 mg tablet 25 mg PO DAILY Qty: 14 0RF No Action atorvastatin 40 mg tablet 40 mg PO DAILY 90 Days Qty: 90 Patient Comments: TAKE 1 TABLET BY MOUTH AT BEDTIME metoprolol succinate 25 mg tablet extended release 24 hr 25 mg PO DAILY duloxetine 60 mg capsule,delayed release(DR/EC) 60 mg PO DAILY donepezil [Aricept] 5 mg tablet 5 mg PO HS acetaminophen [Tylenol Extra Strength] 500 mg tablet 500 mg PO Q6HP PRN (Reason: Mild Pain (Scale Score 1-4)) cholecalciferol (vitamin D3) 125 mcg (5,000 unit) capsule 125 mcg PO DAILY ascorbic acid (vitamin C) 500 mg capsule 1,000 mg PO DAILY metformin 500 mg tablet 1,000 mg PO DAILY Qulipta 60 mg tablet 60 mg PO DAILY B complex-vitamin C-folic acid 5 mg tablet 1 tab PO DAILY Qty: 30 6RF magnesium chloride 64 mg tablet,delayed release (DR/EC) 128 mg PO DAILY Qty: 60 6RF folic acid 1 mg tablet 1 mg PO DAILY tamsulosin 0.4 MG capsule 0.4 mg PO HS metformin 500 mg Tablet 500 mg PO HS Farxiga 10 mg tablet 10 mg PO DAILY Qty: 30 3RF Entresto 24-26 mg tablet 1 tab PO BID Qty: 60 1RF Referrals Follow up/Referrals: Aki Durand DO [Staff Physician] - See instructions Aki Higuera MD [Staff Physician] - See instructions Provider,MD Ngozi [Primary Care Provider] - See instructions Activity Restrictions/Add. Instructions Additional Instructions/Restrictions: Call your family doctor to establish care for this visit to the emergency department and schedule follow-up within 48 hours to ensure improvement. If you have any worsening of your condition or any other concerning signs or symptoms, return to the emergency department or your primary care doctor for further evaluation. Dr. Durand's information is here, you can call him to establish family medicine follow-up. Dr. Higuera is a balance screwhead polisher, call him to follow-up heart failure and A-fib. Take hydrochlorothiazide daily until follow-up. Discharge ED Provider: Johnnie Cai Adult [facility] General Chief complaint: Shortness of Breath/Dyspnea Stated complaint: soa Time Seen by Provider: 08/13/23 11:31 History of Present Illness HPI narrative: The patient presents with a chief complaint of facial swelling and a sensation of eye protrusion, accompanied by general malaise and occasional mild abdominal pain. These symptoms began approximately one week ago. The patient reports the onset of diarrhea one week ago, with no presence of blood in the stool. He denies experiencing fevers or chills. The patient denies recent exposure to sick individuals and lives alone. He reports occasional phlegm production and a persistently runny nose. The patient has not tried any medications for his current symptoms. He also describes associated intermittent shortness of breath, he denies known history of CHF but per chart review has recent diagnosis and is followed by cardiology. No exacerbating or relieving factors of patient's abdominal pain. Related Data Home Medications Medication Instructions Recorded Confirmed tamsulosin 0.4 mg capsule 0.4 mg PO HS Prostate 03/12/18 08/06/23 duloxetine 60 mg capsule,delayed 60 mg PO DAILY Mood 02/14/23 08/06/23 release acetaminophen 500 mg tablet 500 mg PO Q6HP PRN Mild Pain 04/16/23 08/06/23 (Tylenol Extra Strength) (Scale Score 1-4) ascorbic acid (vitamin C) 500 mg 1,000 mg PO DAILY Supplement 04/16/23 08/06/23 capsule atorvastatin 40 mg tablet 40 mg PO DAILY Cholesterol 90 days 04/16/23 08/06/23 #90 tabs cholecalciferol (vitamin D3) 125 125 mcg PO DAILY Supplement 04/16/23 08/06/23 mcg (5,000 unit) capsule donepezil 5 mg tablet (Aricept) 5 mg PO HS Memory 04/16/23 08/06/23 atogepant 60 mg tablet (Qulipta) 60 mg PO DAILY migraines 05/16/23 08/06/23 metform
--- NOTE | 2023-08-13 11:48 | XR_ITS ---
FINAL REPORT CLINICAL HISTORY: soa FINDINGS: CHEST, 2 views COMPARISON: 04-11-22 FINDINGS: The lungs are clear. There is no evidence of effusion or other pleural disease. The mediastinum has a normal appearance. The cardiac silhouette is unremarkable. IMPRESSION: Unremarkable chest exam. Authenticated and ERN
--- NOTE | 2023-08-13 12:00 | PC.NURSE ---
PT TO XR
[2023-08-13 12:06] LABS: Basophils % 0.4 % (0.1-2.0); Coronavirus 19, PCR Not Detected (NotDetected); Eosinophils # 0.1 K/mm3 (0.0-0.4); Eosinophils % 1.8 % (0.1-12.0); Hematocrit 40.4 % (42.0-52.0); Hemoglobin 13.2 g/dL (14.1-18.0); Influenza A, PCR Not Detected (NotDetected); Influenza B, PCR Not Detected (NotDetected); Lymphocytes # 1.8 K/mm3 (0.7-4.5); Lymphocytes % 22.8 % (10-50); Mean Corpuscular HGB Conc 32.8 g/dL (31.8-35.4); Mean Corpuscular Volume 100.5 fl (80-94); Mean Platelet Volume 8.4 fl (7.4-10.4); Monocytes # 0.4 K/mm3 (0.1-1.0); Monocytes % 5.4 % (1.7-9.3); Neutrophils # 5.6 K/mm3 (1.8-7.8); Neutrophils % 69.7 % (37.0-80.0); Platelet Count 243 K/mm3 (142-424); Red Blood Count 4.01 M/mm3 (4.60-6.20); Red Cell Distribution Width 14.6 % (11.5-17.5); White Blood Count 8.1 K/mm3 (4.8-10.8)
--- NOTE | 2023-08-13 12:13 | PC.NURSE ---
pt return from radiology, pt in restroom
[2023-08-13 12:14] LABS: Alanine Aminotransferase 24 U/L (12-78); Albumin Level 4.1 g/dl (3.5-5.0); Albumin/Globulin Ratio 1.3 (1.1-1.8); Alkaline Phosphatase 90 U/L (38-126); Anion Gap 12.9 mEq/L (5-15); Aspartate Amino Transferase 27 U/L (17-59); Bilirubin,Total 0.4 mg/dl (0.2-1.3); Blood Urea Nitrogen 15 mg/dl (9-20); Calcium 8.8 mg/dl (8.4-10.2); Carbon Dioxide 26 mmol/L (22.0-30.0); Chloride 102 mmol/L (98-107); Creatinine Clearance Estimated 94 mL/min (50-200); Estimated Glomerular Filt Rate 80 ml/min (>60); GFR (African American) 97 ML/MIN (>60); Globulin 3.2 g/dL (1.3-3.2); Glucose 128 mg/dl (74-100); Potassium 3.9 mmoL/L (3.5-5.1); Sodium 137 mmol/L (136-145); Total Protein,Serum 7.3 g/dl (6.3-8.2)
--- NOTE | 2023-08-13 12:21 | PC.NURSE ---
Pt assisted back to bed from bathroom. No other needs voiced at this time. Call light within reach.
[2023-08-13 12:24] LABS: NT Pro Brain Natriuretic Pep. 4880 pg/mL (0-450)
[2023-08-13 12:30] LABS: Troponin I < 0.01 ng/ml (0.00-0.034)
--- NOTE | 2023-08-13 14:38 | PC.NURSE ---
Pt asked for staff to call son and let him know that he is being seen in ER
[2023-08-13 15:05] LABS: Troponin I < 0.01 ng/ml (0.00-0.034)
--- NOTE | 2023-08-13 16:02 | PC.NURSE ---
DR COLLINS AT BEDSIDE TO UPDATE PT
== END 2023-08-13 17:05 | disposition home or self-care (01) ==
PROVIDERS: Emergency Provider Emergency Medicine
DX: R06.02 Shortness of breath; E87.70 Fluid overload, unspecified; R60.1 Generalized edema; R10.9 Unspecified abdominal pain; R53.81 Other malaise; I11.0 Hypertensive heart disease with heart failure; I50.9 Heart failure, unspecified; I48.91 Unspecified atrial fibrillation; E11.9 Type 2 diabetes mellitus without complications; Z79.84 Long term (current) use of oral hypoglycemic drugs
CPT/HCPCS: 71046; 80053; 83880; 84484; 85025; 87636; 93005; 99284

== ENCOUNTER → 2023-10-08 13:49 | Outpatient (POV) | payer MEDICARE, SELFPAY ==
--- NOTE | 2023-10-08 14:26 | A.OFFVIS_ITS ---
HPI Data of Consult Patient: new to practice Consult date: 10/08/23 Requesting Physician: Abbey Reynolds APRN Primary Care Provider: [facility] Consult Narrative Reason for consult: Neck pain, shoulder pain, headache History of present illness: Mr. King is a 87 year old male who presents today as a new patient. He is a referral from Dr. De La Rosa's office. Today he rates his pain a 9 out of 10. Patient states his pain is all in his neck with radiating symptoms to his shoulders and increased headaches. Patient states this has been going on for more than 3 to 5 years and describes it as a constant achy sensation with pressure. Patient states he has been to several specialists including an eye doctor due to the increased eye pressure and neurology. Patient states that he has had multiple imaging of his head with no acute findings. Patient does state the pain interferes with his ability perform activities of daily living such as cooking and cleaning. Patient states he has a longstanding history of pain in his spine. He states he has had 3 back surgeries and the third 1 was due to staph infection. Patient also states that he has had his bilateral knees replaced and his right hip replaced back in 2021. Patient states he ended up spending 33 days in recovery following this hip replacement and ended up again with a staph infection. Patient states he continues to have pain at the right hip due to this. He does state a lot of his symptoms initially started when he was on a job in [place] in 1977 where he started his neck issues and they increasingly worsened over time. Patient has tried [id number] Tylenol and ibuprofen along with heat and ice and topicals with no additional relief. Patient is interested in any help we may be able to provide. Patient does state that he has had a recent x-ray imaging of his cervical spine within the last year however has not had any additional imaging. His Jose Antonio has been reviewed and is appropriate. Patient is not on any current scheduled medications. His Jose Antonio has been reviewed and is appropriate CC: Abbey Reynolds APRN [facility] Disclaimer: The information contained in this section may have been updated after the patient was seen, as this information can be updated by other users. Medical History Cervicogenic headache Episodic migraine with prominent cervicogenic component. Resolved with trial with Qulipta but most likely after physical therapy, traction, dry needling. Recurrent headaches following 3 hospital admissions due to CHF. He has history of severe NIGHAT, nocturnal hypoxemia and likely contributing factor for CHF. Cannot exclude nocturnal hypoxemia secondary to underlying sleep disordered breathing currently not using CPAP. Hearing loss High anion gap metabolic acidosis Hypertension Tinnitus of both ears Surgical History History of knee replacement History of right hip replacement Social History Smoking Status: Never smoker alcohol intake: never substance use type: denies use current occupational status: retired Travel in the last 8 weeks: Inside the [employer] housing: house lives independently: Yes marital status: current occupational exposures/hazards: No caffeine: Yes Review of Systems Review of Systems Review of systems:: pertinent systems reviewed and negative unless documented below Review of systems (narrative): Review of Systems: General: No recent weight changes, no fever, no sleep disturbances Respiratory: No cough, no shortness of air, no recurring pulmonary infections Cardiovascular/peripheral vascular: No chest pain, no palpitations, no edema, no shortness of breath Gastrointestinal: No new onset incontinence, normal bowel movements reported Genitourinary: No new onset incontinence Musculoskeletal: Neck pain, shoulder pain, headache Psychiatric: [Normal mood/affect] Neurological: [Denies weakness in extremities], [denies balance issues] Meds Home Medications and Allergies Home Medications Medication Instructions Recorded Confirmed Type tamsulosin 0.4 mg capsule 0.4 mg PO HS Prostate 03/12/18 09/20/23 History duloxetine 60 mg capsule,delayed 60 mg PO DAILY Mood 02/14/23 09/20/23 History release acetaminophen 500 mg tablet 500 mg PO Q6HP PRN Mild Pain 04/16/23 09/20/23 History (Tylenol Extra Strength) (Scale Score 1-4) ascorbic acid (vitamin C) 500 mg 1,000 mg PO DAILY Supplement 04/16/23 09/20/23 History capsule atorvastatin 40 mg tablet 40 mg PO DAILY Cholesterol 90 days 04/16/23 09/20/23 History #90 tabs cholecalciferol (vitamin D3) 125 125 mcg PO DAILY Supplement 04/16/23 09/20/23 History mcg (5,000 unit) capsule donepezil 5 mg tablet (Aricept) 5 mg PO HS Memory 04/16/23 09/20/23 History atogepant 60 mg tablet (Qulipta) 60 mg PO DAILY migraines 05/16/23 09/20/23 History magnesium chloride 64 mg 128 mg PO DAILY #60 tabs 05/16/23 09/20/23 Rx (magnesium chloride) tablet,delayed release metformin 500 mg tablet 1,000 mg PO DAILY Diabetes 05/16/23 09/20/23 History vitamin B complex-vitamin C-folic 1 tab PO DAILY Macrocytosis #30 05/16/23 09/20/23 Rx acid 5 mg tablet tabs folic acid 1 mg tablet 1 mg PO DAILY Supplement 06/13/23 09/20/23 History metformin 500 mg tablet 500 mg PO HS Diabetes 06/16/23 09/20/23 History dapagliflozin propanediol 10 mg 10 mg PO DAILY #30 tabs 06/18/23 09/20/23 Rx tablet (Farxiga) sacubitril 24 mg-valsartan 26 mg 1 tab PO BID #60 tabs 06/18/23 09/20/23 Rx tablet (Entresto) metoprolol succinate 25 mg 25 mg PO DAILY 08/06/23 09/20/23 History tablet,extended release 24 hr hydrochlorothiazide 25 mg tablet 25 mg PO DAILY #14 tabs 08/13/23 09/20/23 Rx apixaban 2.5 mg tablet (Eliquis) 2.5 mg PO ONCE 09/20/23 09/20/23 History furosemide 20 mg tablet 20 mg PO PRN 09/20/23 09/20/23 History New Prescriptions to Start Prescriptions: Allergies Allergy/AdvReac Type Severity Reaction Status Date / Time tetanus and diphtheria Allergy Intermediate I-HIVES Verified 09/20/23 08:23 toxoids [TETANUS & DIPHTHERIA TOXOIDS] Objective Narrative: Physical Exam: General: Alert and oriented x3, no acute distress, pleasant and cooperative Lungs: Respirations even and unlabored, symmetrical chest expansion Eyes: PERRL Musculoskeletal: Flexion and extension of [] [spine] somewhat guarded secondary to pain, [antalgic gait noted] Neurological: Speech clear, no gross sensory deficit Additional findings Additional findings: PROCEDURE INFORMATION: Exam: XR Cervical Spine Exam date and time: 01/09/2023 4:24 PM Age: 87 years old Clinical indication: Neck pain; Additional info: 644.86 TECHNIQUE: Imaging protocol: Radiologic exam of the cervical spine. Views: 4 or 5 views. COMPARISON: CT ANGIO NECK 01/01/2021 11:37 AM FINDINGS: Bones/joints: Disc space narrowing C3-C4. Soft tissues: Unremarkable. IMPRESSION: Disc space narrowing C3-C4. Assessment and Plan *Assessment and plan (1) Bilateral shoulder pain: Status: Acute Qualifiers: Chronicity: chronic Qualified Code(s): M25.511 - Pain in right shoulder; M25.512 - Pain in left shoulder; G89.29 - Other chronic pain Category: Medical Code(s): M25.511 - Pain in right shoulder; M25.512 - Pain in left shoulder (2) Headache: Status: Resolved Qualifiers: Headache chronicity pattern: unspecified pattern Headache type: unspecified Intractability: not intractable Qualified Code(s): R51.9 - Heada courtney, unspecified Category: Medical Code(s): R51.9 - Headache, unspecified (3) Neck pain: Status: Resolved Category: Medical Code(s): M54.2 - Cervicalgia (4) Cervical radiculopathy: Status: Acute Category: Medical Code(s): M54.12 - Radiculopathy, cervical region Plan Patient is experiencing significant pain in his neck with radiating symptoms to his shoulders and increased headaches and eye pressure. I have discussed with the patient that I would like to order MRI without contrast of his cervical spine to determine possible spinal stenosis that is causing his worsening pain. Patient is agreeable to this plan of care. I will also order the patient a compounding cream. Patient will return to clinic in 1 month for reevaluation of symptoms and plan of care. Patient has been instructed to contact the clinic with any concerns before the next appointment. Dr. Jenkins has reviewed this note and agrees with this plan of care. This note was dictated using voice recognition software and make contain errors or omissions.
[2023-10-08 15:57] VITALS: BP 141/72; PULSE 64; RESP 18; O2SAT 100; BMI 32.8
== END ==
LOC: SC.PAIN 13:50
PROVIDERS: PCP Family Medicine; Visit Provider Nurse Practitioner Family
DX: M25.511 Pain in right shoulder (principal); M25.512 Pain in left shoulder; G89.29 Other chronic pain; R51.9 Headache, unspecified; M54.12 Radiculopathy, cervical region; M54.2 Cervicalgia
CPT/HCPCS: 99202; G0463

== ENCOUNTER 2023-10-16 12:59 | Outpatient (RCR) | payer MEDICARE, SELFPAY | END 2023-12-21 15:00 | disposition home or self-care (01) | LOC: PT 12:59 | PROVIDERS: Visit Provider Internal Medicine Cardiovascular Disease | DX: R07.9 Chest pain, unspecified (principal); I25.10 Atherosclerotic heart disease of native coronary artery without angina pectoris; Z95.5 Presence of coronary angioplasty implant and graft | CPT/HCPCS: 93798 ==

== ENCOUNTER 2023-11-19 12:43 | Emergency (ER) | payer MEDICARE, SELFPAY ==
[2023-11-19 12:53] VITALS: BP 114/61; PULSE 67; RESP 20; TEMP 36.6; O2SAT 93; BMI 34.0
--- NOTE | 2023-11-19 13:00 | XR_ITS ---
FINAL REPORT CLINICAL HISTORY: fall, right hip pain COMPARISON: None FINDINGS: RIGHT HIP Two views of the right hip demonstrate no acute fracture or dislocation. Right hip arthroplasty. Chronic calcifications adjacent to the greater trochanter may represent sequela from prior injury. There is moderate degenerative changes left hip and lower lumbar spine. The visualized bony structures are well aligned. No acute soft tissue abnormality is seen. Postoperative changes in the lower lumbar spine. IMPRESSION: No acute bony abnormality. Reviewed, Interpreted and Dictated by Ronnie Foreman III, MD Transcribed by Ludmila Feldman Authenticated and [facility]
--- NOTE | 2023-11-19 13:01 | XR_ITS ---
FINAL REPORT CLINICAL HISTORY: fall, right upper leg pain COMPARISON: None FINDINGS: Two views of the right femur were obtained. Prior right hip arthroplasty. There is no acute fracture or dislocation. The joint spaces are well preserved. There is no acute soft tissue abnormality. There are chronic calcifications of the right hip. There is right knee arthroplasty. IMPRESSION: No acute abnormality identified. Reviewed, Interpreted and Dictated by Ronnie Foreman III, MD Transcribed by Ludmila Feldman Authenticated and [facility]
--- NOTE | 2023-11-19 13:06 | PC.NURSE ---
pt going to radiology at this time.
[2023-11-19 14:00] VITALS: BP 160/83; PULSE 66; RESP 20; O2SAT 98
--- NOTE | 2023-11-19 14:10 | PC.NURSE ---
PT AMBULATED TO BR WITH WALKER WITHOUT DIFFICULTY
--- NOTE | 2023-11-19 14:19 | PC.NURSE ---
JON GARCIA AT BEDSIDE
--- NOTE | 2023-11-19 14:31 | ED_ITS ---
<Statement entered by Marilyn Washington MD - 12/23/23 22:45> I was consulted by the EJREMIAS, and we discussed the complexity of the problems being addressed. I approved the treatment and management plan for this patient's care in the emergency department, thus performing a substantive portion of the medical decision making. Marilyn Washington MD, YELITZA, FACEP Discharge Plan Disposition Patient Disposition: Home, Self-Care Condition: Good Prescriptions Prescriptions: New lidocaine 5 % adhesive patch,medicated 1 patch topical DAILY Qty: 30 0RF Rx Instructions: leave on most painful area for up to 12 hrs No Action atorvastatin 40 mg tablet 40 mg PO DAILY 90 Days Qty: 90 Patient Comments: TAKE 1 TABLET BY MOUTH AT BEDTIME metoprolol succinate 25 mg tablet extended release 24 hr 25 mg PO DAILY furosemide 20 mg tablet 20 mg PO PRN Eliquis 2.5 mg tablet 2.5 mg PO ONCE duloxetine 60 mg capsule,delayed release(DR/EC) 60 mg PO DAILY donepezil [Aricept] 5 mg tablet 5 mg PO HS acetaminophen [Tylenol Extra Strength] 500 mg tablet 500 mg PO Q6HP PRN (Reason: Mild Pain (Scale Score 1-4)) cholecalciferol (vitamin D3) 125 mcg (5,000 unit) capsule 125 mcg PO DAILY ascorbic acid (vitamin C) 500 mg capsule 1,000 mg PO DAILY metformin 500 mg tablet 1,000 mg PO DAILY Qulipta 60 mg tablet 60 mg PO DAILY B complex-vitamin C-folic acid 5 mg tablet 1 tab PO DAILY Qty: 30 6RF magnesium chloride 64 mg tablet,delayed release (DR/EC) 128 mg PO DAILY Qty: 60 6RF folic acid 1 mg tablet 1 mg PO DAILY tamsulosin 0.4 MG capsule 0.4 mg PO HS metformin 500 mg Tablet 500 mg PO HS Farxiga 10 mg tablet 10 mg PO DAILY Qty: 30 3RF Entresto 24-26 mg tablet 1 tab PO BID Qty: 60 1RF hydrochlorothiazide 25 mg tablet 25 mg PO DAILY Qty: 14 0RF Referrals Follow up/Referrals: Sid Reynolds DO [Staff Physician] - See instructions Stephen Chen MD [Primary Care Provider] - See instructions Activity Restrictions/Add. Instructions Additional Instructions/Restrictions: Please call make an appointment with Dr. Reynolds of orthopedics in the a.m. Follow-up with your PCP as needed please return to the emergency department if your symptoms worsen or change as needed. Please take 1000 mg of Tylenol every 8 hours as needed alternating with 600 mg of Motrin as needed. Clinical Impressions Clinical Impression: Chronic hip pain after total replacement of right hip joint Discharge ED Provider: Matthew Ghotra General Adult HPI General Chief complaint: Extremity Injury, Lower Stated complaint: AO Pain R Hip Time Seen by Provider: 11/19/23 14:15 Mode of Arrival: Ambulatory Source of Information: Patient Limitations: Physical Limitations Description of Symptoms (Recalled from ER Triage Doc. by RN): r hip pain. fell History of Present Illness HPI narrative: Patient presents for right hip pain going on now for 2 years. He is status post total hip arthroplasty in May 2022 had a complicated postoperative course. The patient tells me that he had to have a reoperation but not prosthetic replacement for a infection . Patient has reportedly never been pain-free according to him. He has not seen an the orthopedic surgeon that operated on him in more than 6 months. Patient states that his pain is usually every day however apparently aggravated his pain this week climbing into a truck. He did not fall nor did he suffer any trauma. He has been trying to do cardiac rehab and has had an increasing pain in his right hip and has had to cancel because it is too uncomfortable for him. Related Data Home Medications Medication Instructions Recorded Confirmed tamsulosin 0.4 mg capsule 0.4 mg PO HS Prostate 03/12/18 12/04/23 duloxetine 60 mg capsule,delayed 60 mg PO DAILY Mood 02/14/23 12/04/23 release acetaminophen 500 mg tablet 500 mg PO Q6HP PRN Mild Pain 04/16/23 12/04/23 (Tylenol Extra Strength) (Scale Score 1-4) ascorbic acid (vitamin C) 500 mg 1,000 mg PO DAILY Supplement 04/16/23 12/04/23 capsule atorvastatin 40 mg tablet 40 mg PO DAILY Cholesterol 90 days 04/16/23 12/04/23 #90 tabs cholecalciferol (vitamin D3) 125 125 mcg PO DAILY Supplement 04/16/23 12/04/23 mcg (5,000 unit) capsule donepezil 5 mg tablet (Aricept) 5 mg PO HS Memory 04/16/23 12/04/23 atogepant 60 mg tablet (Qulipta) 60 mg PO DAILY migraines 05/16/23 12/04/23 metformin 500 mg tablet 1,000 mg PO DAILY Diabetes 05/16/23 12/04/23 folic acid 1 mg tablet 1 mg PO DAILY Supplement 06/13/23 12/04/23 metformin 500 mg tablet 500 mg PO HS Diabetes 06/16/23 12/04/23 metoprolol succinate 25 mg 25 mg PO DAILY 08/06/23 12/04/23 tablet,extended release 24 hr apixaban 2.5 mg tablet (Eliquis) 2.5 mg PO ONCE 09/20/23 12/04/23 furosemide 20 mg tablet 20 mg PO PRN 09/20/23 12/04/23 Previous Rx's Medication Instructions Recorded magnesium chloride 64 mg 128 mg (2 x 64 mg) PO DAILY #60 05/16/23 (magnesium chloride) tabs tablet,delayed release vitamin B complex-vitamin C-folic 1 tab PO DAILY Macrocytosis #30 05/16/23 acid 5 mg tablet tabs dapagliflozin propanediol 10 mg 10 mg PO DAILY #30 tabs 06/18/23 tablet (Farxiga) sacubitril 24 mg-valsartan 26 mg 1 tab PO BID #60 tabs 06/18/23 tablet (Entresto) hydrochlorothiazide 25 mg tablet 25 mg PO DAILY #14 tabs 08/13/23 lidocaine 5 % topical patch 1 patch topical DAILY #30 ea 11/19/23 Allergies Allergy/AdvReac Type Severity Reaction Status Date / Time tetanus and diphtheria Allergy Intermediate I-HIVES Verified 12/04/23 09:45 toxoids [TETANUS & DIPHTHERIA TOXOIDS] [facility] Disclaimer: The information contained in this section may have been updated after the patient was seen, as this information can be updated by other users. Medical History Hypertension High anion gap metabolic acidosis Cervicogenic headache Episodic migraine with prominent cervicogenic component. Symptoms resolved with trial with Qulipta, physical therapy, traction, dry needling. Recurrent headaches following 3 hospital admissions due to CHF. Hearing loss Tinnitus of both ears Surgical History History of right hip replacement History of knee replacement Family History Other Unknown family medical history Social History Smoking Status: Never smoker alcohol intake: never substance use type: denies use current occupational status: retired Travel in the last 8 weeks: None housing: house lives independently: Yes marital status: current occupational exposures/hazards: No caffeine: Yes ROS Obtained: Yes Systems reviewed as appropriate & no additional complaints except as documented Physical Exam General General appearance: alert and in no apparent distress Head Head exam: atraumatic and normal inspection Eye Eye exam: Present normal appearance, PERRL and EOMI ENT ENT exam: Present normal exam and normal oropharynx Neck Neck exam: Present normal inspection and full ROM Chest Chest inspection: Present normal inspection and symmetric chest wall rise Respiratory Respiratory exam: Present normal lung sounds bilaterally Cardiovascular Cardiovascular exam: Present regular rate, normal rhythm, normal heart sounds, +S1 and +S2 Abdominal Exam Abdominal exam: Present soft; Absent tenderness Extremities Exam Extremities exam: Present normal inspection and full ROM Neurological Exam Neurological exam: Present alert and oriented X3 Psychiatric Psychiatric exam: Present normal affect and normal mood Skin Skin exam: Present warm, dry and normal color Other Other exam information: Patient has pain to palpation at the distal end of his surgical scar on his right hip. The scar appears to be well-healed without any evidence of fluctuance edema erythema. Patient does report that he feels a pain on palpation it feels like he is being stuck and patient feels like that there is a staple still stuck in his subcutaneous tissues. I do not feel any laxity deformities of the right hip. Patient is neurovascularly intact distally. Medical Decision Making Medical Records Medical records reviewed: Yes I reviewed the patient's medical records. Jose Antonio Inquiry Pt receiving controlled substance: No Vital Signs: 11/19/23 12:53 11/19/23 14:00 11/19/23 15:39 Temperature 97.9 F 97.9 F Temperature Source Oral Oral Pulse Rate 66 68 Pulse Rate [Right] 67 Respiratory Rate 20 20 18 Blood Pressure 160/83 H 139/74 Blood Pressure [Right Arm] 114/61 Blood Pressure Mean 108 Blood Pressure Mean [Right Arm] 78 Blood Pressure Source Automatic Cuff Blood Pressure Position Sitting 02 Sat by Pulse Oximetry 93 L 98 Oxygen Delivery Method Room Air Room Air Orders (Tests/Meds): ED MEDICATIONS Discontinued Medications Generic Name Dose Route Start Last Admin Trade Name Nixon PRN Reason Stop Dose Admin Acetaminophen 1,000 mg 11/19/23 14:31 11/19/23 14:49 Acetaminophen 500mg Tab PO 11/19/23 14:32 1,000 mg ONCE ONE Administration Dexamethasone Sodium Phosphate 10 mg 11/19/23 14:31 11/19/23 14:35 Dexamethasone 4mg/Ml 5ml Mdv IV 11/19/23 14:32 Not Given ONCE ONE Dexamethasone Sodium Phosphate 10 mg 11/19/23 14:37 11/19/23 14:52 Dexamethasone 4mg/Ml 1ml Vial IM 11/19/23 14:38 10 mg ONCE ONE Administration Ketorolac Tromethamine 15 mg 11/19/23 14:31 11/19/23 14:36 Ketorolac 30mg/Ml Vial IV 11/19/23 14:32 Not Given ONCE ONE Ketorolac Tromethamine 15 mg 11/19/23 14:38 11/19/23 14:50 Ketorolac 30mg/Ml Vial IM 11/19/23 14:39 15 mg ONCE ONE Administration ORDERS Category Date Time Status Femur XR right 2 views [XR femur RT 2V] Stat Exams 11/19/23 13:01 Completed Hip XR right minimum 2 views [XR hip RT 2-3V w/pelvis] Exams 11/19/23 13:00 Completed Stat Medical Decision Narrative: In summary patient is a 87-year-old male who presents to the emergency department for evaluation of acute on chronic right hip pain. Patient is hemodynamically stable upon arrival, afebrile. Physical exam reveals tenderness to palpation along the well-healed suture line but otherwise is unremarkable and nonfocal.. Differential diagnosis includes occult fracture, nonunion, loosening of joint prostatic, infection etc. Initial workup will be conducted with radiographic imaging. Initial interventions include Toradol and acetaminophen. Initial workup reviewed by me and my informal review of his plain film hip and femur x-rays shows what appears to be normal orthopedic hardware with no acute processes, radiologist read pending.. Upon repeat evaluation has had some interval reduction in his discomfort from his initial presentation. Given this patient is ambulatory upon discharge and will follow-up with orthopedics after make an appointment in the morning. Patient verbalized understanding and agreement. Critical Care Critical Care Time Critical Care Time: No
[2023-11-19] MEDS: ACETAMINOPHEN 500MG TAB 1000 MG PO (14:49)
[2023-11-19] MEDS: KETOROLAC 30MG/ML VIAL 15 MG IM (14:50)
[2023-11-19] MEDS: DEXAMETHASONE 4MG/ML 1ML VIAL 10 MG IM (14:52)
[2023-11-19 15:39] VITALS: BP 139/74; PULSE 68; RESP 18; TEMP 36.6; O2SAT 98
== END 2023-11-19 15:40 | disposition home or self-care (01) ==
PROVIDERS: Emergency Provider Student in an Organized Health Care Education/Training Program; PCP Family Medicine
DX: M25.551 Pain in right hip (principal); Z96.641 Presence of right artificial hip joint; I10 Essential (primary) hypertension; E11.9 Type 2 diabetes mellitus without complications; E78.5 Hyperlipidemia, unspecified; I20.9 Angina pectoris, unspecified; Z79.01 Long term (current) use of anticoagulants; Z79.84 Long term (current) use of oral hypoglycemic drugs; G89.29 Other chronic pain
CPT/HCPCS: 73502; 73552; 96372; 96374; 96375; 99284

== ENCOUNTER 2023-11-29 08:11 | Outpatient (CLI) | payer MEDICARE, SELFPAY ==
--- NOTE | 2023-11-29 08:12 | MR_ITS ---
FINAL REPORT CLINICAL HISTORY: Cervicogenic headache, cervical spondylosis COMPARISON: None FINDINGS: Multiplanar MR imaging of the cervical spine was performed without contrast. On the sagittal T2-weighted images, disc degeneration is seen throughout. There are endplate changes at multiple levels. There is mild retrolisthesis of C3 on C4, C4 on C5, and C5 on C6. There is mild anterolisthesis of C6 on C7. The cervical spinal cord has an unremarkable appearance without evidence of mass, edema or syrinx. The cervicomedullary junction is normal. C2-3: There is no significant canal stenosis or neural foraminal narrowing. C3-4: Disc osteophyte complex. Severe bilateral neuroforaminal narrowing. C4-5: Disc osteophyte complex. Moderate bilateral neuroforaminal narrowing. Right paracentral disc protrusion indents the thecal sac. Mild central canal stenosis with AP diameter of the thecal sac of 8 mm. C5-6: Disc osteophyte complex. Left paracentral disc protrusion. Moderate bilateral neuroforaminal narrowing. Mild central canal stenosis with AP diameter of the thecal sac of 9 mm. C6-7: Annular disc bulge. Central disc protrusion indents the thecal sac. Mild right and moderate left neuroforaminal narrowing. Mild central canal stenosis with AP diameter of the thecal sac of 9 mm. C7-T1: Annular disc bulge. Small central disc protrusion. Mild left neuroforaminal narrowing. IMPRESSION: Multilevel degenerative disc disease as above. Disc protrusions C4-5 through C7-T1 levels with mild central canal stenosis at C4-5 through C6-7. Reviewed, Interpreted and Dictated by Ronnie Foreman III, MD Transcribed by Ludmila Feldman Authenticated and [facility]
== END 2023-11-29 23:59 ==
LOC: RAD 08:12
PROVIDERS: PCP Specialist; Visit Provider Specialist
DX: G44.86 Cervicogenic headache (principal); M47.812 Spondylosis without myelopathy or radiculopathy, cervical region
CPT/HCPCS: 72141; 76376

== ENCOUNTER 2023-12-04 10:42 | Outpatient (CLI) | payer MEDICARE, SELFPAY ==
[2023-12-04 11:32] LABS: Basophils # 0.1 K/mm3 (0-0.2); Basophils % 0.7 % (0.1-2.0); Eosinophils # 0.2 K/mm3 (0.0-0.4); Eosinophils % 2.5 % (0.1-12.0); Hematocrit 39.6 % (42.0-52.0); Hemoglobin 12.9 g/dL (14.1-18.0); Lymphocytes # 2.3 K/mm3 (0.7-4.5); Mean Corpuscular HGB Conc 32.5 g/dL (31.8-35.4); Mean Corpuscular Hemoglobin 33.3 pg (27.0-31.2); Mean Corpuscular Volume 102.5 fl (80-94); Mean Platelet Volume 8.1 fl (7.4-10.4); Monocytes # 0.5 K/mm3 (0.1-1.0); Neutrophils # 5.9 K/mm3 (1.8-7.8); Neutrophils % 65.8 % (37.0-80.0); Platelet Count 327 K/mm3 (142-424); Red Blood Count 3.86 M/mm3 (4.60-6.20); Red Cell Distribution Width 14.6 % (11.5-17.5)
[2023-12-04 12:02] LABS: C-Reactive Protein 10.1 mg/L (0-4)
[2023-12-04 12:40] LABS: Erythrocyte Sedimentation Rate 122 mm/hr (0-20)
== END 2023-12-04 23:59 ==
PROVIDERS: PCP Family Medicine; Visit Provider Orthopaedic Surgery
DX: M25.551 Pain in right hip (principal); G89.29 Other chronic pain; Z96.641 Presence of right artificial hip joint
CPT/HCPCS: 36415; 85025; 85651; 86140

== ENCOUNTER 2024-01-09 07:02 | Outpatient (CLI) | payer MEDICARE, SELFPAY | END 2024-01-09 23:59 | disposition home or self-care (01) | LOC: RAD 07:03 | PROVIDERS: PCP Family Medicine; Visit Provider Orthopaedic Surgery | DX: M25.551 Pain in right hip (principal) ==

== ENCOUNTER 2024-01-14 10:14 | Outpatient (POV) | payer MEDICARE, SELFPAY ==
[2024-01-14 10:55] VITALS: BP 141/97; PULSE 67; RESP 18; O2SAT 97; BMI 32.7
--- NOTE | 2024-01-14 12:36 | A.OFFVIS_ITS ---
[facility] Pain Management SOAP Note Subjective:: Patient is a pleasant 88-year-old male who presents today for MRI follow-up of his cervical spine. Today he rates his pain a 5 out of 10. Patient denies any new changes or injuries from the last time we met with him. He does describe his pain is all in his neck with radiating symptoms to his shoulders and his hands. He describes this as an aching, throbbing sensation with numbness and tingling. Patient does state that he has weak charge account authorizer in his hands and often cannot feel any sensations within his fingers. Patient states this is something that has been going on for years and progressively worsened. He also states he has neuropathy in his feet. Patient does state the pain interferes with his ability perform activities of daily living such as cooking and cleaning. He also states that it is affecting his sleeping. Patient states that this is constant. He states he would like to see about trying some injections. Patient feels like it is affecting his overall function. Patient has tried and failed conservative therapy. He is on gabapentin from his primary care provider. His Jose Antonio has been reviewed and is appropriate. Review of Systems: General: No recent weight changes, no fever, no sleep disturbances Respiratory: No cough, no shortness of air, no recurring pulmonary infections Cardiovascular/peripheral vascular: No chest pain, no palpitations, no edema, no shortness of breath Gastrointestinal: No new onset incontinence, normal bowel movements reported Genitourinary: No new onset incontinence Musculoskeletal: Neck pain, bilateral shoulder pain, hand pain Psychiatric: [Normal mood/affect] Neurological: [Denies weakness in extremities], [denies balance issues] Objective:: Physical Exam: General: Alert and oriented x3, no acute distress, pleasant and cooperative Lungs: Respirations even and unlabored, symmetrical chest expansion Eyes: PERRL Musculoskeletal: Flexion and extension of cervical [spine] somewhat guarded secondary to pain, [antalgic gait noted] positive Spurling's test Neurological: Speech clear, no gross sensory deficit FINDINGS: Multiplanar MR imaging of the cervical spine was performed without contrast. On the sagittal T2-weighted images, disc degeneration is seen throughout. There are endplate changes at multiple levels. There is mild retrolisthesis of C3 on C4, C4 on C5, and C5 on C6. There is mild anterolisthesis of C6 on C7. The cervical spinal cord has an unremarkable appearance without evidence of mass, edema or syrinx. The cervicomedullary junction is normal. C2-3: There is no significant canal stenosis or neural foraminal narrowing. C3-4: Disc osteophyte complex. Severe bilateral neuroforaminal narrowing. C4-5: Disc osteophyte complex. Moderate bilateral neuroforaminal narrowing. Right paracentral disc protrusion indents the thecal sac. Mild central canal stenosis with AP diameter of the thecal sac of 8 mm. C5-6: Disc osteophyte complex. Left paracentral disc protrusion. Moderate bilateral neuroforaminal narrowing. Mild central canal stenosis with AP diameter of the thecal sac of 9 mm. C6-7: Annular disc bulge. Central disc protrusion indents the thecal sac. Mild right and moderate left neuroforaminal narrowing. Mild central canal stenosis with AP diameter of the thecal sac of 9 mm. C7-T1: Annular disc bulge. Small central disc protrusion. Mild left neuroforaminal narrowing. IMPRESSION: Multilevel degenerative disc disease as above. Disc protrusions C4-5 through C7-T1 levels with mild central canal stenosis at C4-5 through C6-7. Reviewed, Interpreted and Dictated by Ronnie Foreman III, MD Transcribed by Ludmila Feldman Authenticated and [facility] Assessment:: Degenerative disc disease of cervical spine with cervical radiculopathy symptoms, shoulder pain, headache Plan:: Patient did have his MRI findings gone over during today's visit. I have also discussed with patient due to he has limited range of motion of his cervical spine and the continued pain with numbness and tingling into his hands and I do believe he would benefit from a cervical epidural steroid injection. Risk and benefits were discussed with the patient and he would like to proceed forward with this plan of care. Patient has tried and failed conservative therapy. Patient states he does not think he is on a blood thinner however is unsure. Patient does have Plavix and Eliquis in his electric tolerating. We will reach back out to him and confirm if he is taking either of this medication as well as reach out to his primary care provider for secondary verification. Patient was counseled that he would have to stop the blood thinners in order to proceed forward with the injection. Patient agrees with this plan of care. We will schedule the patient for a KENROY C6-C7 under fluoroscopy. Patient also stated he had not heard on the compounded cream. I will reach out to the pharmacy and see whether or not if we can get an update regarding this. Patient has been instructed to contact the clinic with any concerns before the next appointment. Dr. Jenkins has reviewed this note and agrees with this plan of care. This note was dictated using voice recognition software and make contain errors or omissions. [facility] Disclaimer: The information contained in this section may have been updated after the patient was seen, as this information can be updated by other users. Medical History (Updated 01/08/24 @ 07:35 by Juana Ferreira) Shortness of breath Hypertension High anion gap metabolic acidosis Cervicogenic headache Hearing loss Tinnitus of both ears Surgical History History of right hip replacement History of knee replacement Family History Other Unknown family medical history Social History Smoking Status: Never smoker alcohol intake: never substance use type: denies use current occupational status: retired Travel in the last 8 weeks: None housing: house lives independently: Yes marital status: current occupational exposures/hazards: No caffeine: Yes
== END 2024-01-14 23:59 | disposition home or self-care (01) ==
LOC: SC.PAIN 10:14
PROVIDERS: PCP Family Medicine; Visit Provider Nurse Practitioner Family
DX: M50.123 Cervical disc disorder at C6-C7 level with radiculopathy (principal); M25.519 Pain in unspecified shoulder; R51.9 Headache, unspecified
CPT/HCPCS: 99212; G0463

== ENCOUNTER 2024-03-07 10:48 | Outpatient (CLI) | payer MEDICARE, SELFPAY ==
--- NOTE | 2024-03-07 10:49 | CA_ITS ---
APPROVED REPORT EXAM: Comprehensive 2D, Doppler, and color-flow Echocardiogram Retail Sales Specialist: Maegan Chakraborty RDCS Ht: 6 ft 4 in Wt: 285lbs BSA: 2.58 BP: 136/78 mmHg Indications: SOA,,HTN 2D Dimensions LA Volume 156.90 mL LA Volume Index 60.81 mL/m2 (M/F) 16-34 M-Mode Dimensions RVDd 1.90 cm (0.9-2.6) LA Diam 5.74 cm (1.9-4.0) LVDd 7.80 cm (3.5-5.7) LVDs 6.27 cm (3.5-5.7) IVSd 1.17 cm (0.6-1.1) PWd 1.14 cm (0.6-1.1) EF (Teich) 38.90% FS 19.60% EDV (Teich) 325.70 mL ESV (Teich) 199.00 mL LV Diastology E Decel Time 283 (160-240 msec) E/A Ratio 1.3 Aortic Valve JACQUES Index 0.65 cm2/m2 AoV Peak Chance. 245.0 (50-130 cm/s) AO Peak GR. 24.10 mmHg AO Mean GR. 11.90 (<5 mmHg) AO VTI 50.6 (18-25 cm) JACQUES (VTI) 1.71 (2.5-4.5 cm2) Mitral Valve MV E Max Chance. 88.0 (40-130 cm/s) MV A Velocity 66.0 (40-130 cm/s) E/A Ratio 1.34 MV PHT 83.0 ms Left Ventricle Left ventricle is moderately dilated (LVEDVi 95 ml/m2). Left ventricular systolic function is moderate to severely decreased. There is increased LV wall thickness. There is moderate to severe global hypokinesis present. Grade 2 diastolic dysfunction. LVEF is 30%. Right Ventricle Right ventricle is mildly dilated. The right ventricular systolic function is normal. Atria Left atrium is mildly dilated. Right atrium is mildly dilated. There is no Doppler evidence of interatrial shunt. Aortic Valve The aortic valve is moderately thickened. Moderate valvular aortic stenosis. This Mild aortic regurgitation. Mitral Valve The mitral valve leaflets are mildly thickened. No evidence of mitral valve stenosis. Mild mitral regurgitation. Tricuspid Valve The tricuspid valve leaflets are thin and pliable. Trace tricuspid regurgitation. There is insufficient TR jet to estimate RVSP. Pulmonic Valve The pulmonary valve is normal in structure. Trace pulmonic regurgitation. Great Vessels The aortic root is normal in size. IVC is normal in size and collapses >50% with inspiration. Pericardium There is no pericardial effusion. Other Information Study Quality: Technically Difficult Conclusion Technically difficult study due to poor acoustic windows. Moderate to severe reduction in LV systolic function (LVEF 30%) Mild RV dilation with normal RV function. Mild biatrial dilation. Moderate (JACQUES by 2D planimetry is 1.3 cm2. Peak velocity 2.7 m/s. Mean AV gradient 12 mmHg. Max AV gradient 24 mmHg. DI=0.38. SVi= 36 ml/m2). Mild MR. Compared to prior study from 06/2023, the severity of and transaortic parameters are overall unchanged. Serial TTE evaluations are recommended. Due to technically difficult study, future TTE evaluations are recommended with ultrasound enhancing agent to better delineate the LV endocardial borders. Electronically signed by : Haydee Hawkins MD 03/10/2024 21:48:59
== END 2024-03-07 23:59 | disposition home or self-care (01) ==
LOC: RT 10:49
PROVIDERS: PCP Family Medicine; Visit Provider Specialist
DX: R06.02 Shortness of breath (principal); G47.33 Obstructive sleep apnea (adult) (pediatric); I50.42 Chronic combined systolic (congestive) and diastolic (congestive) heart failure
CPT/HCPCS: 93306

== ENCOUNTER 2024-03-22 17:26 | Emergency (ER) | payer MEDICARE, SELFPAY ==
--- NOTE | 2024-03-22 | ECG_ITS ---
APPROVED REPORT Exam: Resting ECG HR:73 bpm ECG Measurements Heart Rate 73 AXES HI 242 P 70 QRSd 139 QRS 4 QT 386 T 124 QTc 412 Conclusion INTRAVENTRICULAR CONDUCTION DELAY [130+ ms QRS DURATION] SEPTAL MYOCARDIAL INFARCTION , OF INDETERMINATE AGE [40+ ms Q WAVE IN V1/V2] ABNORMAL ECG Sinus rhythm with first-degree AV block, incomplete left bundle branch block. Electronically signed by : TASH JUNG, 03/22/2024 23:19:59
[2024-03-22 17:34] VITALS: BP 161/89; PULSE 67; RESP 18; TEMP 36.6; O2SAT 97; BMI 34.7
--- NOTE | 2024-03-22 17:41 | ED_ITS ---
Discharge Plan Disposition Patient Disposition: Home, Self-Care Chief Complaint: Chest Pain Prescriptions Prescriptions: No Action atorvastatin 40 mg tablet 40 mg PO DAILY 90 Days Qty: 90 Patient Comments: TAKE 1 TABLET BY MOUTH AT BEDTIME metoprolol succinate 25 mg tablet extended release 24 hr 25 mg PO DAILY furosemide 20 mg tablet 20 mg PO DIRECTED PRN (Reason: Fluid) Eliquis 2.5 mg tablet 2.5 mg PO ONCE clopidogrel 75 mg tablet 75 mg PO DAILY glipizide 5 mg tablet 5 mg PO DAILY duloxetine 60 mg capsule,delayed release(DR/EC) 60 mg PO DAILY donepezil [Aricept] 5 mg tablet 5 mg PO HS acetaminophen [Tylenol Extra Strength] 500 mg tablet 500 mg PO Q6HP PRN (Reason: Mild Pain (Scale Score 1-4)) cholecalciferol (vitamin D3) 125 mcg (5,000 unit) capsule 125 mcg PO DAILY ascorbic acid (vitamin C) 500 mg capsule 1,000 mg PO DAILY metformin 500 mg tablet 1,000 mg PO DAILY B complex-vitamin C-folic acid 5 mg tablet 1 tab PO DAILY Qty: 30 6RF magnesium chloride 64 mg tablet,delayed release (DR/EC) 128 mg PO DAILY Qty: 60 6RF folic acid 1 mg tablet 1 mg PO DAILY tamsulosin 0.4 MG capsule 0.4 mg PO HS lidocaine 5 % adhesive patch,medicated 1 patch topical DAILY Qty: 30 0RF Rx Instructions: leave on most painful area for up to 12 hrs dapagliflozin propanediol [Farxiga] 10 mg tablet 10 mg PO DAILY Qty: 30 3RF Entresto 24-26 mg tablet 1 tab PO BID Qty: 60 1RF hydrochlorothiazide 25 mg tablet 25 mg PO DAILY Qty: 14 0RF Referrals Follow up/Referrals: Provider,Referral, MD [Primary Care Provider] - See instructions Activity Restrictions/Add. Instructions Additional Instructions/Restrictions: At this time it was felt you are safe to be discharged home. If new or worsening symptoms please do not hesitate to return the emergency department. 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 You also have larger than normal lymph nodes in your abdomen which will need to be followed by your family doctor. Please follow-up with them within 1 to 2 weeks as you are able. Clinical Impressions Clinical Impression: Chest pain, Lymphadenopathy, mesenteric Discharge ED Provider: Antwan Brian [facility] General Chief Complaint: Chest Pain Stated Complaint: cp Time Seen by Provider: 03/22/24 17:29 Mode of Arrival: Ambulatory Source of Information: Patient Limitations: No Limitations Description of Symptoms (Recalled from ER Triage Doc. by RN): chest discomfort for the last week, History of Present Illness HPI narrative: Patient is a 88-year-old male with past medical history of coronary disease status post stenting, CHF, chronic headaches who presents emergency department for evaluation of chest pain. Onset was acute, since Sunday, substernal radiating into his left chest and left upper quadrant of his abdomen. No shortness of breath or cough. Due to persistent symptoms he presents here for continued evaluation. No vomiting reported. No other acute complaints at this time. Related Data Home Medications Medication Instructions Recorded Confirmed tamsulosin 0.4 mg capsule 0.4 mg PO HS Prostate 03/12/18 02/28/24 duloxetine 60 mg capsule,delayed 60 mg PO DAILY Mood 02/14/23 02/28/24 release acetaminophen 500 mg tablet 500 mg PO Q6HP PRN Mild Pain 04/16/23 02/28/24 (Tylenol Extra Strength) (Scale Score 1-4) ascorbic acid (vitamin C) 500 mg 1,000 mg PO DAILY Supplement 04/16/23 02/28/24 capsule atorvastatin 40 mg tablet 40 mg PO DAILY Cholesterol 90 days 04/16/23 02/28/24 #90 tabs cholecalciferol (vitamin D3) 125 125 mcg PO DAILY Supplement 04/16/23 02/28/24 mcg (5,000 unit) capsule donepezil 5 mg tablet (Aricept) 5 mg PO HS Memory 04/16/23 02/28/24 metformin 500 mg tablet 1,000 mg PO DAILY Diabetes 05/16/23 02/28/24 folic acid 1 mg tablet 1 mg PO DAILY Supplement 06/13/23 02/28/24 metoprolol succinate 25 mg 25 mg PO DAILY 08/06/23 02/28/24 tablet,extended release 24 hr apixaban 2.5 mg tablet (Eliquis) 2.5 mg PO ONCE 09/20/23 02/28/24 furosemide 20 mg tablet 20 mg PO DIRECTED PRN Fluid 09/20/23 02/28/24 clopidogrel 75 mg tablet 75 mg PO DAILY 12/27/23 02/28/24 glipizide 5 mg tablet 5 mg PO DAILY 12/27/23 02/28/24 Previous Rx's Medication Instructions Recorded magnesium chloride 64 mg 128 mg (2 x 64 mg) PO DAILY #60 05/16/23 (magnesium chloride) tabs tablet,delayed release vitamin B complex-vitamin C-folic 1 tab PO DAILY Macrocytosis #30 05/16/23 acid 5 mg tablet tabs dapagliflozin propanediol 10 mg 10 mg PO DAILY #30 tabs 06/18/23 tablet (Farxiga) sacubitril 24 mg-valsartan 26 mg 1 tab PO BID #60 tabs 06/18/23 tablet (Entresto) hydrochlorothiazide 25 mg tablet 25 mg PO DAILY #14 tabs 08/13/23 lidocaine 5 % topical patch 1 patch topical DAILY #30 ea 11/19/23 Allergies Allergy/AdvReac Type Severity Reaction Status Date / Time tetanus and diphtheria Allergy Intermediate I-HIVES Verified 02/28/24 09:48 toxoids [TETANUS & DIPHTHERIA TOXOIDS] [facility] Disclaimer: The information contained in this section may have been updated after the patient was seen, as this information can be updated by other users. Medical History Shortness of breath Hypertension High anion gap metabolic acidosis Cervicogenic headache Hearing loss Tinnitus of both ears Surgical History History of right hip replacement History of knee replacement Family History Other Unknown family medical history Social History Smoking Status: Never smoker alcohol intake: never substance use type: denies use current occupational status: retired Travel in the last 8 weeks: None housing: house lives independently: Yes marital status: current occupational exposures/hazards: No caffeine: Yes ROS Obtained: Yes Systems reviewed as appropriate & no additional complaints except as documented Physical Exam General General appearance: alert and in no apparent distress Head Head exam: atraumatic and normocephalic Eye Eye exam: Present PERRL ENT ENT exam: Present mucous membranes moist Neck Neck exam: Present normal inspection Chest Chest inspection: Present normal inspection and symmetric chest wall rise Respiratory Respiratory exam: Present normal lung sounds bilaterally; Absent respiratory distress, wheezes or stridor Cardiovascular Cardiovascular exam: Present regular rate and normal rhythm Abdominal Exam Abdominal exam: Present soft and tenderness (Left upper quadrant); Absent guarding or rebound Extremities Exam Extremities exam: Present normal inspection Neurological Exam Neurological exam: Present alert Psychiatric Psychiatric exam: Present normal affect Skin Skin exam: Present warm and dry HEART Score HEART Score HEART Score assessment performed?: Yes History (anamnesis): Moderately suspicious ECG: Non-specific disturbance Age: >65 years Risk factors: Atherosclerosis history Troponin: </= normal limit HEART Score: 6 Critical Care Critical Care Time Critical Care Time: No Medical Decision Making Jose Antonio Inquiry Pt receiving controlled substance: No Vital Signs Vital Signs: 03/22/24 17:34 03/22/24 18:00 03/22/24 18:30 Temperature 97.8 F Temperature Source Oral Pulse Rate 62 59 L Pulse Rate [Right] 67 Respiratory Rate 18 Blood Pressure 155/86 H 157/84 H Blood Pressure [Right Arm] 161/89 H Blood Pressure Mean [Right Arm] 113 Blood Pressure Source Blood Pressure Position 02 Sat by Pulse Oximetry 97 97 93 L Oxygen Delivery Method Room Air Room Air Room Air 03/22/24 21:00 Temperature 98.3 F Temperature Source Oral Pulse Rate 64 Pulse Rate [Right] Respiratory Rate 16 Blood Pressure 150/75 H Blood Pressure [Right Arm] Blood Pressure Mean [Right Arm] Blood Pressure Source Automatic Cuff Blood Pressure Position Supine 02 Sat by Pulse Oximetry 94 L Oxygen Delivery Method Room Air Lab Data Labs: Lab Results 03/22/24 17:42: WBC 8.1, RBC 4.11 L, Hgb 13.3 L, Hct 40.1 L, MCV 97.6 H, MCH 32.3 H, MCHC 33.1, RDW 14.4, Plt Count 267, MPV 8.6, Neut % (Auto) 57.9, Lymph % (Auto) 31.0, Ritchie % (Auto) 6.8, Eos % (Auto) 3.6, Baso % (Auto) 0.7, Neut # (Auto) 4.7, Lymph # (Auto) 2.5, Ritchie # (Auto) 0.6, Eos # (Auto) 0.3, Baso # (Auto) 0.1, Sodium 137, Potassium 4.9, Chloride 105, Carbon Dioxide 25, Anion Gap 11.9, BUN 28 H, Creatinine 1.00, Estimated Creat Clear 97, Estimated GFR 71, Est GFR ( Amer) 86, Glucose 174 H, Calcium 9.6, Total Bilirubin 0.6, AST 32, ALT 21, Alkaline Phosphatase 107, Troponin I < 0.01, Total Protein 7.8, Albumin 4.2, Globulin 3.6 H, Albumin/Globulin Ratio 1.2, Lipase 55 03/22/24 17:42 03/22/24 17:42 Response Orders (Tests/Meds): ED MEDICATIONS Discontinued Medications Generic Name Dose Route Start Last Admin Trade Name Freq PRN Reason Stop Dose Admin Acetaminophen 1,000 mg 03/22/24 17:49 03/22/24 18:20 Acetaminophen 1,000mg/100ml Vial IV 03/22/24 17:50 1,000 mg ONCE ONE Administration Belladonna Alkaloids 60 ml 03/22/24 17:54 03/22/24 18:20 Belladonna Alkaloids 60 Ml Ml PO 03/22/24 17:55 60 ml ONCE ONE Administration Iopamidol 100 ml 03/22/24 19:02 03/22/24 19:05 Iopamidol-370 (76%);100ml Bottle IV 03/22/24 19:03 100 ml ONCE ONE Administration Morphine Sulfate 4 mg 03/22/24 17:49 03/22/24 18:20 Morphine 4mg/Ml Syringe IV 03/22/24 17:50 4 mg ONCE ONE Administration Ondansetron HCl 4 mg 03/22/24 17:51 03/22/24 18:20 Ondansetron 4mg/2ml Vial IV 03/22/24 17:52 4 mg ONCE ONE Administration Sodium Chloride 10 ml 03/22/24 19:02 03/22/24 19:05 Sodium Chloride 0.9% 10ml Syr (Rad Only) IV 03/22/24 19:03 10 ml ONCE ONE Administration Sodium Chloride 50 ml 03/22/24 19:02 03/22/24 19:04 0.9 % Sodium Chloride 50 Ml Vial IV 03/22/24 19:03 50 ml ONCE ONE Administration ORDERS Category Date Time Status CT angio abdomen pelvis Stat Cat Scan 03/22/24 17:[address] angio chest - dissection Stat Cat Scan 03/22/24 17:49 Completed CBC w/Auto Diff [Complete Blood Count Auto Diff] Stat Lab 03/22/24 17:42 Completed CMP [Comprehensive Metabolic Panel] Stat Lab 03/22/24 17:42 Completed Lipase Stat Lab 03/22/24 17:42 Completed Trop I [Troponin I] Stat Lab 03/22/24 17:42 Completed Troponin I Q3H Lab 03/22/24 21:00 Ordered Troponin I Q3H Lab 03/23/24 00:00 Ordered ECG Data Tracing #1: ECG Narrative: Independently interpreted by me rate of 73, rhythm is irregular, sinus arrhythmia with intermittent PVCs, incomplete left bundle branch block, Sgarbossa negative, no ST elevation in anatomical contiguous leads, QTc 412. MDM Narrative Medical Decision Narrative: In summary patient is 88-year-old male with past medical history described above who presents emergency department for evaluation of chest pain radiating to his abdomen. Patient is hemodynamically stable nontoxic-appearing upon arrival, afebrile, hypertensive 161/89. Differential diagnosis includes ACS, noncardiac chest pain, GERD, aortic dissection, among others. Workup will be conducted with hematologic labs, CTA chest, abdomen, pelvis. Initial inventions include morphine, Zofran, Tylenol, GI cocktail. Initial workup reviewed by me, hematologic labs are nonactionable, no significant leukocytosis, no anemia, no CHANTAL or critical electrolyte abnormality. Initial troponin undetectably low. Lipase normal. CTA chest shows no acute pathology. CTA abdomen pelvis shows interval development of moderate lymphadenopathy scattered throughout the mesentery which will require outpatient surveillance. Given that patient's pain has been persistent and longer than 6 hours single troponin is sensitive enough for ruling out ACS. Upon repeat evaluation patient had significant resolution of symptoms and was resting comfortably in bed. 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
--- NOTE | 2024-03-22 17:49 | CT_ITS ---
PROCEDURE INFORMATION: Exam: CTA Chest With Contrast Exam date and time: 03/22/2024 6:46 PM Age: 88 years old Clinical indication: Pain; Chest pressure; Additional info: Cp rad to abdomen TECHNIQUE: Imaging protocol: Computed tomographic angiography of the chest with contrast. Exam focused on the arteries. 3D rendering (Not supervised by radiologist): MIP and/or 3D reconstructed images were created by the technologist. Radiation optimization: All CT scans at this facility use at least one of these dose optimization techniques: automated exposure control; mA and/or kV adjustment per patient size (includes targeted exams where dose is matched to clinical indication); or iterative reconstruction. Contrast material: ISOVUE; Contrast volume: 100 ml; Contrast route: INTRAVENOUS (IV); COMPARISON: CT ANGIO CHEST 07/30/2019 12:39 PM FINDINGS: Tubes, catheters and devices: Right shoulder prosthesis in place. Pulmonary arteries: Normal. No pulmonary emboli. Aorta: Unremarkable. No aortic aneurysm. No aortic dissection. Lungs: Unremarkable. No consolidation. No masses. Pleural spaces: Unremarkable. No pneumothorax. No pleural effusion. Heart: Unremarkable. No cardiomegaly. No pericardial effusion. Lymph nodes: Unremarkable. No enlarged lymph nodes. Bones/joints: Moderate degenerative changes throughout the thoracic spine. No vertebral body compression or acute fracture. Soft tissues: Unremarkable. IMPRESSION: No evidence of pulmonary embolus, aortic pathology or other acute abnormality in the chest.
--- NOTE | 2024-03-22 17:49 | CT_ITS ---
PROCEDURE INFORMATION: Exam: CTA Abdomen and Pelvis With Contrast Exam date and time: 03/22/2024 6:46 PM Age: 88 years old Clinical indication: Other: Chest pain radiating to abdomen; Additional info: Cp rad to luq and abdomen TECHNIQUE: Imaging protocol: Computed tomographic angiography of the abdomen and pelvis with contrast. Exam focused on the arteries. 3D rendering (Not supervised by radiologist): MIP and/or 3D reconstructed images were created by the technologist. Radiation optimization: All CT scans at this facility use at least one of these dose optimization techniques: automated exposure control; mA and/or kV adjustment per patient size (includes targeted exams where dose is matched to clinical indication); or iterative reconstruction. Contrast material: ISOVUE; Contrast volume: 100 ml; Contrast route: INTRAVENOUS (IV); COMPARISON: CT ANGIO ABDOMEN 07/30/2019 12:39 PM FINDINGS: Aorta: No aortic aneurysm. No aortic dissection. Celiac trunk and mesenteric arteries: No occlusion or significant stenosis. Renal arteries: No occlusion or significant stenosis. Right iliac arteries: No occlusion or significant stenosis. Left iliac arteries: No occlusion or significant stenosis. Liver: No mass. Gallbladder and biliary ducts: Unremarkable. No calcified stones. No ductal dilation. Pancreas: Partial fatty replacement of the pancreas. Pancreas is otherwise unremarkable. Spleen: Unremarkable. No splenomegaly. Adrenal glands: Unremarkable. No mass. Kidneys and ureters: Stable bilateral renal cysts, including a minimally complex 6 cm Bosniak 2 cyst in the upper pole of the right kidney. No hydronephrosis. Suspected small calyceal stone in the mid left kidney. Stomach and bowel: Unremarkable. No obstruction. No mucosal thickening. Appendix: No evidence of appendicitis. Intraperitoneal space: Unremarkable. No free air. No significant fluid collection. Lymph nodes: Small calcified right hilar and mediastinal lymph nodes. No significant intrathoracic lymphadenopathy. Interval development of moderate lymphadenopathy throughout the upper abdomen, including oxana hepatis, portacaval, periaortic mesenteric lymph nodes. Largest lymph node is a 2.5 cm mesenteric noted in the left upper quadrant. Mild bilateral iliac lymphadenopathy. Urinary bladder: Unremarkable. No mass. Reproductive: Unremarkable as visualized. Bones/joints: Right hip prosthesis in place. Soft tissues: Unremarkable. IMPRESSION: Interval development of [id number] lymphadenopathy in the abdomen and pelvis as described, with the largest lymph nodes in the mesentery of the left upper quadrant. Differential diagnosis would include acute infectious/inflammatory process such as enteritis, systemic process such as connective tissue disorder or metastatic malignancy, depending on clinical presentation.
[2024-03-22 17:58] LABS: Basophils # 0.1 K/mm3 (0-0.2); Basophils % 0.7 % (0.1-2.0); Eosinophils # 0.3 K/mm3 (0.0-0.4); Eosinophils % 3.6 % (0.1-12.0); Hematocrit 40.1 % (42.0-52.0); Hemoglobin 13.3 g/dL (14.1-18.0); Lymphocytes # 2.5 K/mm3 (0.7-4.5); Mean Corpuscular HGB Conc 33.1 g/dL (31.8-35.4); Mean Corpuscular Hemoglobin 32.3 pg (27.0-31.2); Mean Corpuscular Volume 97.6 fl (80-94); Mean Platelet Volume 8.6 fl (7.4-10.4); Monocytes # 0.6 K/mm3 (0.1-1.0); Monocytes % 6.8 % (1.7-9.3); Neutrophils # 4.7 K/mm3 (1.8-7.8); Neutrophils % 57.9 % (37.0-80.0); Platelet Count 267 K/mm3 (142-424); Red Blood Count 4.11 M/mm3 (4.60-6.20); Red Cell Distribution Width 14.4 % (11.5-17.5); White Blood Count 8.1 K/mm3 (4.8-10.8)
[2024-03-22 18:00] VITALS: BP 155/86; PULSE 62; O2SAT 97
[2024-03-22 18:09] LABS: Chloride 105 mmol/L (98-107); Sodium 137 mmol/L (136-145)
[2024-03-22 18:10] LABS: Potassium 4.9 mmoL/L (3.5-5.1)
[2024-03-22 18:12] LABS: Alanine Aminotransferase 21 U/L (12-78); Albumin Level 4.2 g/dl (3.5-5.0); Albumin/Globulin Ratio 1.2 (1.1-1.8); Alkaline Phosphatase 107 U/L (38-126); Anion Gap 11.9 mEq/L (5-15); Aspartate Amino Transferase 32 U/L (17-59); Bilirubin,Total 0.6 mg/dl (0.2-1.3); Blood Urea Nitrogen 28 mg/dl (9-20); Calcium 9.6 mg/dl (8.4-10.2); Carbon Dioxide 25 mmol/L (22.0-30.0); Creatinine Clearance Estimated 97 mL/min (50-200); Estimated Glomerular Filt Rate 71 ml/min (>60); GFR (African American) 86 ML/MIN (>60); Globulin 3.6 g/dL (1.3-3.2); Glucose 174 mg/dl (74-100); Lipase 55 U/L (23-300); Total Protein,Serum 7.8 g/dl (6.3-8.2)
[2024-03-22] MEDS: BELLADONNA ALKALOIDS 60 ML ML PO (18:20)
[2024-03-22] MEDS: MORPHINE 4MG/ML SYRINGE 4 MG IV (18:20)
[2024-03-22] MEDS: ACETAMINOPHEN 1,000MG/100ML VIAL 1000 MG IV (18:20)
[2024-03-22] MEDS: ONDANSETRON 4MG/2ML VIAL 4 MG IV (18:20)
[2024-03-22 18:30] VITALS: BP 157/84; PULSE 59; O2SAT 93
[2024-03-22 18:41] LABS: Troponin I < 0.01 ng/ml (0.00-0.034)
[2024-03-22] MEDS: 0.9 % SODIUM CHLORIDE 50 ML VIAL IV (19:04)
[2024-03-22] MEDS: IOPAMIDOL-370 (76%);100ML BOTTLE 100 ML IV (19:05)
[2024-03-22] MEDS: SODIUM CHLORIDE 0.9% 10ML SYR (RAD ONLY) 10 ML IV (19:05)
[2024-03-22 21:00] VITALS: BP 150/75; PULSE 64; RESP 16; TEMP 36.8; O2SAT 94
[2024-03-22 21:17] VITALS: BP 150/75; PULSE 64; RESP 16; TEMP 36.8; O2SAT 94
== END 2024-03-22 21:22 | disposition home or self-care (01) ==
PROVIDERS: Emergency Provider Emergency Medicine
DX: R07.9 Chest pain, unspecified (principal); R59.0 Localized enlarged lymph nodes; I49.3 Ventricular premature depolarization; I11.0 Hypertensive heart disease with heart failure; I50.9 Heart failure, unspecified
CPT/HCPCS: 71275; 74174; 80053; 83690; 84484; 85025; 93005; 96374; 96375; 99285; J0131; J2270; J2405; Q9967

== ENCOUNTER 2024-04-17 06:43 | Emergency (ER) | payer MEDICARE, SELFPAY ==
[2024-04-17 06:44] VITALS: BP 154/84; PULSE 83; RESP 18; TEMP 36.5; O2SAT 95; BMI 33.7
[2024-04-17 07:00] VITALS: BP 154/84; PULSE 66; O2SAT 95
--- NOTE | 2024-04-17 07:15 | ED_ITS ---
Discharge Plan Disposition Patient Disposition: Home, Self-Care Prescriptions Prescriptions: New dexamethasone 6 mg tablet 6 mg PO DAILY Qty: 5 0RF All Day Allergy (cetirizine) 10 mg capsule 10 mg PO DAILY 14 Days Qty: 14 0RF No Action atorvastatin 40 mg tablet 40 mg PO DAILY 90 Days Qty: 90 Patient Comments: TAKE 1 TABLET BY MOUTH AT BEDTIME metoprolol succinate 25 mg tablet extended release 24 hr 25 mg PO DAILY furosemide 20 mg tablet 20 mg PO DIRECTED PRN (Reason: Fluid) Eliquis 2.5 mg tablet 2.5 mg PO ONCE clopidogrel 75 mg tablet 75 mg PO DAILY glipizide 5 mg tablet 5 mg PO DAILY duloxetine 60 mg capsule,delayed release(DR/EC) 60 mg PO DAILY donepezil [Aricept] 5 mg tablet 5 mg PO HS acetaminophen [Tylenol Extra Strength] 500 mg tablet 500 mg PO Q6HP PRN (Reason: Mild Pain (Scale Score 1-4)) cholecalciferol (vitamin D3) 125 mcg (5,000 unit) capsule 125 mcg PO DAILY ascorbic acid (vitamin C) 500 mg capsule 1,000 mg PO DAILY metformin 500 mg tablet 1,000 mg PO DAILY B complex-vitamin C-folic acid 5 mg tablet 1 tab PO DAILY Qty: 30 6RF magnesium chloride 64 mg tablet,delayed release (DR/EC) 128 mg PO DAILY Qty: 60 6RF folic acid 1 mg tablet 1 mg PO DAILY tamsulosin 0.4 MG capsule 0.4 mg PO HS lidocaine 5 % adhesive patch,medicated 1 patch topical DAILY Qty: 30 0RF Rx Instructions: leave on most painful area for up to 12 hrs dapagliflozin propanediol [Farxiga] 10 mg tablet 10 mg PO DAILY Qty: 30 3RF Entresto 24-26 mg tablet 1 tab PO BID Qty: 60 1RF hydrochlorothiazide 25 mg tablet 25 mg PO DAILY Qty: 14 0RF Referrals Follow up/Referrals: Stephen Chen MD [Primary Care Provider] - See instructions Activity Restrictions/Add. Instructions Additional Instructions/Restrictions: Steroid (Decadron) each morning for the next 5 days with plenty of food and water. Cetirizine each morning for the next 14 days. A-fib any other concerning signs or symptoms, return to your family doctor or the emergency department for further evaluation. Clinical Impressions Clinical Impression: Urticarial rash Instructions Patient Instructions: DI for Skin Abscess Print Language Print Language: Moh[place] Discharge ED Provider: Otilio Macario General Adult HPI General Chief complaint: Skin/Abscess/Foreign Body Stated complaint: itching Time Seen by Provider: 04/17/24 07:00 Mode of Arrival: Ambulatory Source of Information: Patient Limitations: No Limitations Description of Symptoms (Recalled from ER Triage Doc. by RN): Pt presents with increased hives and itching after starting on Protonix 2 weeks ago. History of Present Illness HPI narrative: Please note that above description of symptoms, in this electronic medical record under categorization of recalled from ER triage doctor by RN are reflective of an initial nursing assessment, however, is not reflective of my full history and physical exam that was personally taken and clarified. Consequentially, this preceding description of symptoms, which may include the patient's categorized chief complaint in the EMR, do not reflect my personal clinical impression, and the ultimate description of history of present illness and patient stated complaints should be deferred to this section of the note. Unless stated otherwise or congruent with this section of the note, additional signs, symptoms, or incongruence should be interpreted as inaccurate with my clinical impression. Related Data Home Medications ?Medication ?Instructions ?Recorded ?Confirmed tamsulosin 0.4 mg capsule 0.4 mg PO HS Prostate 03/12/18 02/28/24 duloxetine 60 mg capsule,delayed 60 mg PO DAILY Mood 02/14/23 02/28/24 release acetaminophen 500 mg tablet 500 mg PO Q6HP PRN Mild Pain 04/16/23 02/28/24 (Tylenol Extra Strength) (Scale Score 1-4) ascorbic acid (vitamin C) 500 mg 1,000 mg PO DAILY Supplement 04/16/23 02/28/24 capsule atorvastatin 40 mg tablet 40 mg PO DAILY Cholesterol 90 days 04/16/23 02/28/24 #90 tabs cholecalciferol (vitamin D3) 125 125 mcg PO DAILY Supplement 04/16/23 02/28/24 mcg (5,000 unit) capsule donepezil 5 mg tablet (Aricept) 5 mg PO HS Memory 04/16/23 02/28/24 metformin 500 mg tablet 1,000 mg PO DAILY Diabetes 05/16/23 02/28/24 folic acid 1 mg tablet 1 mg PO DAILY Supplement 06/13/23 02/28/24 metoprolol succinate 25 mg 25 mg PO DAILY 08/06/23 02/28/24 tablet,extended release 24 hr apixaban 2.5 mg tablet (Eliquis) 2.5 mg PO ONCE 09/20/23 02/28/24 furosemide 20 mg tablet 20 mg PO DIRECTED PRN Fluid 09/20/23 02/28/24 clopidogrel 75 mg tablet 75 mg PO DAILY 12/27/23 02/28/24 glipizide 5 mg tablet 5 mg PO DAILY 12/27/23 02/28/24 Previous Rx's ?Medication ?Instructions ?Recorded magnesium chloride 64 mg 128 mg (2 x 64 mg) PO DAILY #60 05/16/23 (magnesium chloride) tabs tablet,delayed release vitamin B complex-vitamin C-folic 1 tab PO DAILY Macrocytosis #30 05/16/23 acid 5 mg tablet tabs dapagliflozin propanediol 10 mg 10 mg PO DAILY #30 tabs 06/18/23 tablet (Farxiga) sacubitril 24 mg-valsartan 26 mg 1 tab PO BID #60 tabs 06/18/23 tablet (Entresto) hydrochlorothiazide 25 mg tablet 25 mg PO DAILY #14 tabs 08/13/23 lidocaine 5 % topical patch 1 patch topical DAILY #30 ea 11/19/23 cetirizine 10 mg capsule (All Day 10 mg PO DAILY allergy symptoms 14 04/17/24 Allergy (cetirizine)) days #14 caps dexamethasone 6 mg tablet 6 mg PO DAILY #5 tabs 04/17/24 Allergies Allergy/AdvReac Type Severity Reaction Status Date / Time tetanus and diphtheria Allergy Intermediate I-HIVES Verified 02/28/24 09:48 toxoids [TETANUS & DIPHTHERIA TOXOIDS] [facility] Disclaimer: The information contained in this section may have been updated after the patient was seen, as this information can be updated by other users. Medical History Shortness of breath Hypertension High anion gap metabolic acidosis Cervicogenic headache Hearing loss Tinnitus of both ears Surgical History History of right hip replacement History of knee replacement Family History Other Unknown family medical history Social History Smoking Status: Never smoker alcohol intake: never substance use type: denies use current occupational status: retired Travel in the last 8 weeks: None housing: house lives independently: Yes marital status: current occupational exposures/hazards: No caffeine: Yes ROS Obtained: Yes All systems reviewed & no additional complaints except as documented Physical Exam General General appearance: alert Head Head exam: atraumatic and normocephalic Eye Eye exam: Present normal appearance, PERRL and EOMI Neck Neck exam: Present normal inspection, full ROM and trachea midline Respiratory Respiratory exam: Absent respiratory distress, wheezes, stridor, accessory muscle use or prolonged expiratory phase Cardiovascular Cardiovascular exam: Present other (Pulses equal symmetric in upper and lower extremities) Abdominal Exam Abdominal exam: Present soft; Absent distention, tenderness or pulsatile mass Extremities Exam Extremities exam: Absent edema Neurological Exam Neurological exam: Present alert, oriented X3 and CN II-XII intact; Absent motor sensory deficit Skin Skin exam: Present warm, dry, rash (Scattered urticarial rash bilateral lower extremities) and erythema; Absent diaphoresis Medical Decision Making Medical Records Medical records reviewed: Yes I reviewed the patient's medical records. Jose Antonio Inquiry Pt receiving controlled substance: No Jose Antonio was queried for this patient: No Vital Signs: 04/17/24 06:44 Temperature 97.7 F Temperature Source Oral Pulse Rate [Left] 83 Respiratory Rate 18 Blood Pressure [Right Arm] 154/84 H Blood Pressure Mean [Right Arm] 107 Blood Pressure Source [Right Arm] Automatic Cuff Blood Pressure Position [Right Arm] Sitting 02 Sat by Pulse Oximetry 95 Oxygen Delivery Method Room Air Orders (Tests/Meds): ED MEDICATIONS Discontinued Medications Generic Name Dose Route Start Last Admin Trade Name Nixon PRN Reason Stop Dose Admin Dexamethasone 10 mg 04/17/24 07:12 04/17/24 07:53 Dexamethasone 4mg Tablet PO 04/17/24 07:13 10 mg ONCE ONE Administration Loratadine 10 mg 04/17/24 07:12 04/17/24 07:51 Loratadine 10mg Tablet PO 04/17/24 07:13 10 mg ONCE ONE Administration Medical Decision Narrative: 88-year-old male history of hypertension, hyperlipidemia, mild cognitive impairment, PUD, CHF presenting with rash. Patient states that he was started on Protonix about 2 weeks ago after having upper GI bleed and being diagnosed with peptic ulcer. Has not had any dark stools or any other bleeding symptoms since that time. States that for about a week he has had a rash on his lower extremities. It is itchy, nonpainful, no other symptoms. No difficulty breathing, chest pain, shortness of breath, lightheadedness, chest pain, nausea or vomiting, no easy bruising. He is also used new soaps, but no new close, travel exposures, or otherwise. History was obtained via conversation with patient. On arrival, patient hemodynamically stable, alert, oriented x4, appropriate, GCS 15, moving all extremities spontaneously, pupils equal and reactive to light. Full physical exam performed and significant for very pleasant, well-appearing male no acute distress. He has urticarial rash bilateral lower extremities which is partially convalescent. Excoriated. Differential includes histamine mediated reaction, drug reaction, contact reaction, among others. Patient placed on continuous cardiac monitoring and continuous pulse ox with initial blood pressure 154/84, heart rate 83, saturation 95% on room air. Because patient so well-appearing, obvious urticarial rash with no systemic signs or symptoms, no further workup including lab work or imaging was deemed necessary, although it was considered.On reevaluation, patient's rash is improving after loratadine and Decadron. Given patient presentation, workup, history, this most likely represents allergic urticarial rash. Because patient at baseline without signs or symptoms of clinical decompensation, deemed appropriate for discharge. Results were relayed to patient who voiced understanding and were agreeable to outpatient management and follow up. I discussed my clinical impression with patient and answered all questions. At this time, the evidence for any other entities in the differential is insufficient to warrant any further testing or ED observation. This was explained as well. Advisory was given that persistent or worsening symptoms r equire further evaluation. I confirmed the understanding of this discussion. [employer] disclaimer Much of this encounter note is an electronic water safety instructor spoken language to printed text. Electronic water safety instructor of the spoken language may permit errors. Although I have reviewed the note, some errors may still exist. Critical Care Critical Care Time Critical Care Time: No
[2024-04-17 07:31] VITALS: BP 138/68; PULSE 70; O2SAT 93
[2024-04-17] MEDS: LORATADINE 10MG TABLET 10 MG PO (07:51)
[2024-04-17] MEDS: DEXAMETHASONE 4MG TABLET 10 MG PO (07:53)
[2024-04-17 08:00] VITALS: BP 129/73; PULSE 60; O2SAT 95
--- NOTE | 2024-04-17 08:02 | PC.NURSE ---
dr keating at bedside to reevaluate pt
[2024-04-17 08:37] VITALS: BP 129/81; PULSE 68; RESP 18; TEMP 36.6; O2SAT 95
== END 2024-04-17 08:47 | disposition home or self-care (01) ==
PROVIDERS: Emergency Provider Emergency Medicine; PCP Family Medicine
DX: L50.9 Urticaria, unspecified (principal)
CPT/HCPCS: 99283; J8540

== ENCOUNTER 2024-05-13 12:30 | Emergency (ER) | payer MEDICARE, SELFPAY ==
[2024-05-13 12:31] VITALS: BP 144/69; PULSE 95; RESP 19; TEMP 36.7; O2SAT 100; BMI 34.4
--- NOTE | 2024-05-13 12:37 | ECG_ITS ---
APPROVED REPORT Exam: Resting ECG HR:105 bpm ECG Measurements Heart Rate 105 AXES QRSd 142 QRS -6 QT 359 T 93 QTc 420 Conclusion ATRIAL FIBRILLATION WITH RAPID VENTRICULAR RESPONSE LEFT BUNDLE BRANCH BLOCK [120+ ms QRS DURATION, 80+ ms Q/S IN V1/V2, 85+ ms R IN I/aVL/V5/V6] ABNORMAL ECG Electronically signed by : Steve Licea, 05/13/2024 16:10:05
--- NOTE | 2024-05-13 12:41 | HMH.EDGENADL ---
Discharge Plan Disposition Patient Disposition: Home, Self-Care Prescriptions Prescriptions: No Action atorvastatin 40 mg tablet 40 mg PO DAILY 90 Days Qty: 90 Patient Comments: TAKE 1 TABLET BY MOUTH AT BEDTIME metoprolol succinate 25 mg tablet extended release 24 hr 25 mg PO DAILY furosemide 20 mg tablet 20 mg PO DIRECTED PRN (Reason: Fluid) Eliquis 2.5 mg tablet 2.5 mg PO ONCE clopidogrel 75 mg tablet 75 mg PO DAILY glipizide 5 mg tablet 5 mg PO DAILY duloxetine 60 mg capsule,delayed release(DR/EC) 60 mg PO DAILY donepezil [Aricept] 5 mg tablet 5 mg PO HS acetaminophen [Tylenol Extra Strength] 500 mg tablet 500 mg PO Q6HP PRN (Reason: Mild Pain (Scale Score 1-4)) cholecalciferol (vitamin D3) 125 mcg (5,000 unit) capsule 125 mcg PO DAILY ascorbic acid (vitamin C) 500 mg capsule 1,000 mg PO DAILY metformin 500 mg tablet 1,000 mg PO DAILY B complex-vitamin C-folic acid 5 mg tablet 1 tab PO DAILY Qty: 30 6RF magnesium chloride 64 mg tablet,delayed release (DR/EC) 128 mg PO DAILY Qty: 60 6RF folic acid 1 mg tablet 1 mg PO DAILY tamsulosin 0.4 MG capsule 0.4 mg PO HS lidocaine 5 % adhesive patch,medicated 1 patch topical DAILY Qty: 30 0RF Rx Instructions: leave on most painful area for up to 12 hrs dexamethasone 6 mg tablet 6 mg PO DAILY Qty: 5 0RF All Day Allergy (cetirizine) 10 mg capsule 10 mg PO DAILY 14 Days Qty: 14 0RF dapagliflozin propanediol [Farxiga] 10 mg tablet 10 mg PO DAILY Qty: 30 3RF Entresto 24-26 mg tablet 1 tab PO BID Qty: 60 1RF hydrochlorothiazide 25 mg tablet 25 mg PO DAILY Qty: 14 0RF Referrals Follow up/Referrals: Provider,Referral, MD [Primary Care Provider] - See instructions Activity Restrictions/Add. Instructions Additional Instructions/Restrictions: Stop using the skin ointment if it is causing burning and follow up with your account information clerk or PCP regarding other remedies. In the meantime, you may apply Vaseline or Aquaphor to keep it moist. Take Tylenol 1000 mg every 6 hours (4 times daily) and ibuprofen 400 mg every 6 hours (4 times daily) as needed with food and water to prevent GI upset and kidney damage. Call your family doctor to establish care for this visit to the emergency department and schedule follow-up within 48 hours to ensure improvement. If you have any worsening of your condition or any other concerning signs or symptoms, return to the emergency department or your primary care doctor for further evaluation. Clinical Impressions Clinical Impression: Headache, Chest pain Print Language Print Language: [place]uneian Discharge ED Provider: Otilio Macario General Adult HPI <Steve Licea MD - Last Filed: 05/13/24 16:29> General Chief complaint: Headache Stated complaint: soa, headache Time Seen by Provider: 05/13/24 12:35 History of Present Illness HPI narrative: Patient is a 89-year-old male with history of chronic rash, CAD, A-fib on Eliquis and Plavix, diabetes, CHF. Patient resents today for several complaints. Primarily is a headache that is diffuse in nature, primarily in the left neck radiating to the posterior left side of the head. Also reports a more severe, up to 8 out of 10, throbbing like headache behind his bilateral eyes. No numbness weakness or tingling. Does endorse some vertigo-like symptoms. he reports no blurry vision or dark spots in his vision. No pain with extraocular movements. No nausea or vomiting. Tolerating good oral intake. His secondary complaint is shortness of breath that has been worsening over the last 3 weeks. He reports some intermittent anterior chest pressure with that. Not necessarily made worse by exertion, not necessarily experiencing orthopnea. No fevers, cough, congestion. Has been compliant with his medications. Furthermore, his tertiary complaint is his chronic rash (
--- NOTE | 2024-05-13 13:22 | CT_ITS ---
FINAL REPORT TECHNIQUE: NASCET technique utilized for stenosis evaluation. CLINICAL HISTORY: HEADACHE COMPARISON: 01/01/2021 FINDINGS: RIGHT CAROTID: No significant stenosis is seen of the cervical common or internal carotid artery. LEFT CAROTID: No significant stenosis seen of the cervical common or internal carotid artery. There is minimal calcified plaque in the left carotid bifurcation without evidence of significant stenosis. VERTEBRALS: The vertebral arteries are codominant. No significant stenosis is present. IMPRESSION: No significant arterial abnormality. Reviewed, Interpreted and Dictated by Mao Philip MD Transcribed by Faustina Tucker Authenticated and [facility]
--- NOTE | 2024-05-13 13:22 | CT_ITS ---
FINAL REPORT TECHNIQUE: Multiple axial CT sections were performed from the foramen magnum to the vertex. Coronal and sagittal reformatted images were also obtained. Precontrast and postcontrast injection images were obtained. This study was performed with technique to keep radiation doses as low as reasonably achievable, (ALARA). Individualized dose reduction techniques using automated exposure control or adjustment of mA and/or kV according to the patient size were employed. CLINICAL HISTORY: HEADACHE COMPARISON: 01/01/2021 FINDINGS: CT HEAD WITH AND WITHOUT CONTRAST: There is moderate global atrophy compatible with the patient's age. There is no evidence of hemorrhage. No masses are identified. No extra-axial fluid collection is seen. The sinuses are normal. No osseous abnormality is seen on the bone window images. Postcontrast images demonstrate no abnormal enhancement. IMPRESSION: Moderate global age-appropriate atrophy. No acute intracranial abnormality is identified. Reviewed, Interpreted and Dictated by Mao Philip MD Transcribed by Faustina Tucker Authenticated and [facility]
--- NOTE | 2024-05-13 13:22 | CT_ITS ---
FINAL REPORT TECHNIQUE: The patient was injected with IV contrast. Axial images were obtained through the chest in a PE protocol. 3-D reconstruction images were also performed. Individualized dose reduction techniques using automated exposure control or adjustment of the MA and/or KV according to patient's size were employed. CLINICAL HISTORY: HEADACHE COMPARISON: 03/22/2024 FINDINGS: Mediastinal vasculature is adequately opacified. There is slight streak artifact from a right shoulder prosthesis. No pulmonary artery filling defects are identified to suggest PE. There is no aortic dissection. There is no axillary adenopathy. There is no hilar or mediastinal adenopathy. The heart size is normal. Small bilateral pleural effusions are present. Limited images of the upper abdomen reveal fatty infiltration of the liver. No suspicious infiltrate or nodule is identified. IMPRESSION: No pulmonary embolus or dissection. Small bilateral effusions. Fatty infiltration of the liver. Reviewed, Interpreted and Dictated by Mao Philip MD Transcribed by Faustina Tucker Authenticated and . [facility]
--- NOTE | 2024-05-13 13:28 | CT_ITS ---
FINAL REPORT TECHNIQUE: thin section axial CT with and without IV contrast supplemented with multiplanar 3-D reconstruction of the head. This study was performed with techniques to keep radiation doses as low as reasonably achievable, (ALARA)individualized dose reduction techniques using automated exposure control or adjustment of mA and/or kV according to the patient's size were employed. CLINICAL HISTORY: Headache COMPARISON: 01/01/2021 FINDINGS: HEAD CT: Age-appropriate atrophy is present. There is no evidence of hemorrhage. No masses are identified. No extra-axial fluid is seen. The sinuses are normal. CTA: Note is made of an absent A1 segment of the right, with a large A1 segment on the left side, which supplies both of the anterior cerebral arteries. There is no significant stenosis, aneurysm or occlusion. IMPRESSION: No acute process. Reviewed, Interpreted and Dictated by Mao Philip MD Transcribed by Faustina Tucker Authenticated and [facility]
[2024-05-13 13:44] LABS: Alanine Aminotransferase 32 U/L (12-78); Albumin Level 3.6 g/dl (3.5-5.0); Albumin/Globulin Ratio 1.2 (1.1-1.8); Alkaline Phosphatase 97 U/L (38-126); Anion Gap 12.1 mEq/L (5-15); Aspartate Amino Transferase 31 U/L (17-59); Bilirubin,Total 0.6 mg/dl (0.2-1.3); Blood Urea Nitrogen 25 mg/dl (9-20); Calcium 8.9 mg/dl (8.4-10.2); Carbon Dioxide 22 mmol/L (22.0-30.0); Chloride 111 mmol/L (98-107); Creatinine Clearance Estimated 96 mL/min (50-200); Estimated Glomerular Filt Rate 80 ml/min (>60); GFR (African American) 97 ML/MIN (>60); Glucose 177 mg/dl (74-100); Potassium 4.1 mmoL/L (3.5-5.1); Sodium 141 mmol/L (136-145); Total Protein,Serum 6.6 g/dl (6.3-8.2)
[2024-05-13 14:01] LABS: Basophils % 0.3 % (0.1-2.0); Eosinophils # 0.1 K/mm3 (0.0-0.4); Eosinophils % 2.1 % (0.1-12.0); Hematocrit 39.8 % (42.0-52.0); Hemoglobin 12.6 g/dL (14.1-18.0); INR 0.99 (0.9-1.1); Lymphocytes # 1.4 K/mm3 (0.7-4.5); Lymphocytes % 27.5 % (10-50); Mean Corpuscular HGB Conc 31.7 g/dL (31.8-35.4); Mean Corpuscular Hemoglobin 32.1 pg (27.0-31.2); Mean Corpuscular Volume 101.4 fl (80-94); Mean Platelet Volume 8.9 fl (7.4-10.4); Monocytes # 0.4 K/mm3 (0.1-1.0); Neutrophils # 3.1 K/mm3 (1.8-7.8); Neutrophils % 62.2 % (37.0-80.0); Platelet Count 327 K/mm3 (142-424); Prothrombin Time 11.1 seconds (10.1-12.5); Red Blood Count 3.93 M/mm3 (4.60-6.20); Red Cell Distribution Width 14.9 % (11.5-17.5)
[2024-05-13 14:04] LABS: Troponin I < 0.01 ng/ml (0.00-0.034)
[2024-05-13 14:31] VITALS: BP 104/85; PULSE 99; RESP 17; O2SAT 94
[2024-05-13 15:00] VITALS: BP 115/74; RESP 19
[2024-05-13 15:06] LABS: Erythrocyte Sedimentation Rate 69 mm/hr (0-20)
[2024-05-13 15:32] VITALS: BP 163/109; PULSE 89; RESP 17; O2SAT 98
--- NOTE | 2024-05-13 15:44 | PC.NURSE ---
pt was given a warm blanket
[2024-05-13 16:03] VITALS: BP 148/101; RESP 20
[2024-05-13 16:57] VITALS: BP 140/89; PULSE 91; RESP 20; TEMP 36.7; O2SAT 95
== END 2024-05-13 16:58 | disposition home or self-care (01) ==
PROVIDERS: Emergency Medicine; Emergency Provider Emergency Medicine
DX: R51.9 Headache, unspecified (principal); R06.02 Shortness of breath; R07.9 Chest pain, unspecified; R21 Rash and other nonspecific skin eruption; I11.0 Hypertensive heart disease with heart failure; I50.9 Heart failure, unspecified; E11.9 Type 2 diabetes mellitus without complications; I48.0 Paroxysmal atrial fibrillation; Z79.01 Long term (current) use of anticoagulants; Z79.84 Long term (current) use of oral hypoglycemic drugs
CPT/HCPCS: 70450; 70496; 70498; 71275; 80053; 84484; 85025; 85610; 85651; 86140; 93005; 96374; 96375; 99285; J0131; J1885; Q9967

== ENCOUNTER → 2024-09-29 18:56 | Outpatient (CLI) | payer MEDICARE, SELFPAY | LOC: SL 19:02 | PROVIDERS: PCP Family Medicine; Visit Provider Specialist | DX: G47.33 Obstructive sleep apnea (adult) (pediatric) (principal); I50.9 Heart failure, unspecified | CPT/HCPCS: 95811 ==

== ENCOUNTER 2024-10-21 02:27 | Observation (INO) | payer MEDICARE, SELFPAY ==
[2024-10-21] VITALS (13 sets, daily range): BP systolic 88–123; BP diastolic 46–80; PULSE 58–98; RESP 16–20; TEMP 36.4–37.7; O2SAT 90–97; BMI 32.8; BMI 33.3
--- NOTE | 2024-10-21 02:33 | ED_ITS ---
Discharge Plan Disposition Patient Disposition: Admitted Clinical Impressions Clinical Impression: Pneumonia, Respiratory failure, Influenza A Discharge ED Provider: Cliff Tucker General Adult HPI General Chief complaint: Shortness of Breath/Dyspnea Stated complaint: Short of breath Time Seen by Provider: 10/21/24 02:33 History of Present Illness HPI narrative: 88-year-old male with history of diabetes, mild cognitive impairment, coronary artery disease, sleep apnea presents for cough congestion shortness of breath. He reports he has felt bad for the last couple of days. He reports productive cough with dark sputum. Not aware of any fever at home. Never a smoker. Related Data Home Medications ?Medication ?Instructions ?Recorded ?Confirmed tamsulosin 0.4 mg capsule 0.4 mg PO HS Prostate 03/12/18 10/21/24 duloxetine 60 mg capsule,delayed 60 mg PO DAILY Mood 02/14/23 10/21/24 release acetaminophen 500 mg tablet 500 mg PO Q6HP PRN Mild Pain 04/16/23 10/21/24 (Tylenol Extra Strength) (Scale Score 1-4) ascorbic acid (vitamin C) 500 mg 1,000 mg PO DAILY Supplement 04/16/23 10/21/24 capsule atorvastatin 40 mg tablet 40 mg PO DAILY Cholesterol 90 days 04/16/23 10/21/24 #90 tabs cholecalciferol (vitamin D3) 125 125 mcg PO DAILY Supplement 04/16/23 10/21/24 mcg (5,000 unit) capsule donepezil 5 mg tablet (Aricept) 5 mg PO HS Memory 04/16/23 10/21/24 metformin 500 mg tablet 1,000 mg PO DAILY Diabetes 05/16/23 10/21/24 folic acid 1 mg tablet 1 mg PO DAILY Supplement 06/13/23 10/21/24 metoprolol succinate 25 mg 25 mg PO DAILY 08/06/23 10/21/24 tablet,extended release 24 hr apixaban 2.5 mg tablet (Eliquis) 2.5 mg PO ONCE 09/20/23 10/21/24 furosemide 20 mg tablet 20 mg PO DIRECTED PRN Fluid 09/20/23 10/21/24 clopidogrel 75 mg tablet 75 mg PO DAILY 12/27/23 10/21/24 glipizide 5 mg tablet 5 mg PO DAILY 12/27/23 10/21/24 Previous Rx's ?Medication ?Instructions ?Recorded magnesium chloride 64 mg 128 mg (2 x 64 mg) PO DAILY #60 05/16/23 (magnesium chloride) tabs tablet,delayed release vitamin B complex-vitamin C-folic 1 tab PO DAILY Macrocytosis #30 05/16/23 acid 5 mg tablet tabs dapagliflozin propanediol 10 mg 10 mg PO DAILY #30 tabs 06/18/23 tablet (Farxiga) sacubitril 24 mg-valsartan 26 mg 1 tab PO BID #60 tabs 06/18/23 tablet (Entresto) hydrochlorothiazide 25 mg tablet 25 mg PO DAILY #14 tabs 08/13/23 lidocaine 5 % topical patch 1 patch topical DAILY #30 ea 11/19/23 cetirizine 10 mg capsule (All Day 10 mg PO DAILY allergy symptoms 14 04/17/24 Allergy (cetirizine)) days #14 caps dexamethasone 6 mg tablet 6 mg PO DAILY #5 tabs 04/17/24 Allergies Allergy/AdvReac Type Severity Reaction Status Date / Time tetanus and diphtheria Allergy Intermediate I-HIVES Verified 05/14/24 13:26 toxoids (TETANUS & DIPHTHERIA TOXOIDS) [facility] Disclaimer: The information contained in this section may have been updated after the patient was seen, as this information can be updated by other users. Medical History Shortness of breath Hypertension High anion gap metabolic acidosis Cervicogenic headache Hearing loss Tinnitus of both ears Surgical History History of right hip replacement History of knee replacement Family History Other Unknown family medical history Social History Smoking Status: Never smoker alcohol intake: never substance use type: denies use current occupational status: retired Travel in the last 8 weeks: None housing: house lives independently: Yes marital status: current occupational exposures/hazards: No caffeine: Yes Contact w/someone who lives/traveled outside [place] past 30 days?: No Exposure to someone with infectious disease in past 14 days?: No Do you have a fever (greater than 100.4 F or 38 C)?: No Have you tested positive for COVID-19: No Exposed to someone with COVID-19 in past 14 days?: No Do you have a sore throat?: No Do you have a cough?: Yes Are you experiencing any nausea/vomitting?: Yes Do you have any diarrhea?: No Are you experiencing any unusual bleeding?: No Do you have any muscle aches/pain?: Yes Do you have any abdominal pain?: No Are you experiencing loss of taste or smell?: No Other Medical History Have you received the Flu Vaccine for this season: Yes Have you received the Pneumonia Vaccine: Yes ROS Obtained: Yes All systems reviewed & no additional complaints except as documented Physical Exam General General appearance: alert and in no apparent distress Head Head exam: atraumatic and normocephalic Eye Eye exam: Present normal appearance, PERRL and EOMI ENT ENT exam: Present normal oropharynx and normal external ear exam Neck Neck exam: Present normal inspection and full ROM Chest Chest inspection: Present normal inspection and symmetric chest wall rise; Absent tenderness Respiratory Respiratory exam: Absent normal lung sounds bilaterally (Faint wheezes bilaterally, crackles on the right) or respiratory distress Cardiovascular Cardiovascular exam: Present regular rate and normal rhythm Abdominal Exam Abdominal exam: Present soft; Absent distention, tenderness or guarding Extremities Exam Extremities exam: Present normal inspection; Absent edema or joint swelling Back Exam Back exam: Present normal inspection; Absent tenderness Neurological Exam Neurological exam: Present alert and oriented X3; Absent motor sensory deficit Psychiatric Psychiatric exam: Present normal affect and normal mood Skin Skin exam: Present warm, dry and normal color Lymphatic Lymphatic Findings: no adenopathy Medical Decision Making Medical Records Medical records reviewed: Yes I reviewed the patient's medical records. Screening: Per USPSTF and CDC recommendations, given the prevalence of disease in our region, it is our hospital?s policy to screen for HIV and viral Hepatitis for all patients aged 18 and over and those with ongoing risk factors. Jose Antonio Inquiry Pt receiving controlled substance: No Jose Antonio was queried for this patient: No Vital Signs: 10/21/24 02:27 10/21/24 03:26 10/21/24 03:30 Temperature 99.9 F H Temperature Source Oral Pulse Rate 93 H 90 Pulse Rate [Left] 98 H Respiratory Rate 20 Blood Pressure 104/67 L 101/61 L Blood Pressure [Right Arm] 116/80 Blood Pressure Mean [Right Arm] 92 02 Sat by Pulse Oximetry 97 93 L 94 L Oxygen Delivery Method Nasal Cannula Room Air Room Air Oxygen Flow Rate (LPM) 2 10/21/24 03:44 10/21/24 04:00 Temperature Temperature Source Pulse Rate 90 Pulse Rate [Left] Respiratory Rate Blood Pressure 112/76 Blood Pressure [Right Arm] Blood Pressure Mean [Right Arm] 02 Sat by Pulse Oximetry 93 L Oxygen Delivery Method Nasal Cannula Nasal Cannula Oxygen Flow Rate (LPM) 2 2 Lab Data Lab results reviewed: Yes I reviewed the patient's lab results. Lab Results 10/21/24 02:36: Chlamy pneumoniae PCR Not detected, Adenovirus (PCR) Not detected, B. pertussis DNA (PCR) Not detected, Coronavirus OC43 (PCR) Not detected, Coronavirus HKU1 (PCR) Not detected, Coronavirus 229E (PCR) Not detected, SARS-CoV-2 (PCR) Not detected 10/21/24 02:36: SARS-CoV-2 (PCR) Not detected, Coronavirus NL63 (PCR) Not detected, Human Metapneumovir PCR Not detected, Influenza A (H1) PCR Not detected, Influ A (H1N1/09) PCR Detected A, Influenza A (H3) PCR Not detected, Influenza Type A (PCR) Not detected, Influenza A Untype (PCR) Detected A, Influenza Type B (PCR) Not detected 10/21/24 02:36: Influenza Type B (PCR) Not detected, M. pneumoniae (PCR) Not detected, Parainfluenza 1 (PCR) Not detected, Parainfluenza 2 (PCR) Not detected, Parainfluenza 3 (PCR) Not detected, Parainfluenza 4 (PCR) Not detected, RSV (PCR) Not detected, Entero/Rhino (PCR) Not detected 10/21/24 02:40: WBC 6.9, RBC 3.62 L, Hgb 11.6 L, Hct 35.9 L, MCV 99.2 H, MCH 32.0 H, MCHC 32.3, RDW 14.5, Plt Count 189, MPV 10.3, Neut % (Auto) 80.1 H, Lymph % (Auto) 10.8, Wolfe % (Auto) 7.8, Eos % (Auto) 0.6, Baso % (Auto) 0.4, Neut # (Auto) 5.5, Lymph # (Auto) 0.8, Wolfe # (Auto) 0.5, Eos # (Auto) 0.0, Baso # (Auto) 0.0, Sodium 137, Potassium 4.9, Chloride 100, Carbon Dioxide 25, Anion Gap 16.9 H, BUN 25 H, Creatinine 1.00, Estimated Creat Clear 92, Estimated GFR 71, Est GFR ( Amer) 86, Glucose 220 H, Calcium 8.8, Total Bilirubin 0.5, AST 63 H, ALT 38, Alkaline Phosphatase 134 H, NT-Pro-B Natriuret Pep 6660 H, Total Protein 7.2, Albumin 4.3, Globulin 2.9, Albumin/Globulin Ratio 1.5 10/21/24 02:51: VBG pH 7.36, VBG pCO2 39.8, VBG pO2 43.8 H, VBG HCO3 21.8 L, VBG Total CO2 23.1, VBG O2 Saturation 78.1 H, VBG Base Excess -3.7 L, VBG Lactic Acid 2.0 10/21/24 02:40 10/21/24 02:40 Orders (Tests/Meds): ED MEDICATIONS Generic Name Dose Route Start Last Admin Trade Name Freq PRN Reason Stop Dose Admin Acetaminophen 650 mg 10/21/24 04:12 Acetaminophen 325mg Tab PO 11/20/24 04:11 Q4HP PRN Fever or Mild Pain (1-3) Albuterol/Ipratropium 3 ml 10/21/24 04:16 Ipratropium/Albuterol 3 Ml [facility] 11/20/24 04:15 Q4HP PRN Shortness Of Breath Atorvastatin Calcium 40 mg 10/21/24 09:00 Atorvastatin 40mg Tablet PO 11/20/24 08:59 DAILY RACHEL Azithromycin 250 mg 10/21/24 09:00 Azithromycin 250mg Tablet PO 10/31/24 08:59 DAILY RACHEL Clopidogrel Bisulfate 75 mg 10/21/24 09:00 Clopidogrel 75mg Tab PO 11/20/24 08:59 DAILY RACHEL Furosemide 20 mg 10/21/24 05:15 Furosemide 20mg Tablet PO 11/20/24 05:14 DIRECTED RACHEL Furosemide 20 mg 10/21/24 05:03 10/21/24 05:11 Furosemide 20 Mg/2 Ml Vial IV 10/21/24 05:04 20 mg ONCE ONE Administration Ceftriaxone Sodium 1 gm/ 50 mls @ 100 mls/hr 10/21/24 09:00 Sodium Chloride IV 10/31/24 08:59 Q24H [facility] Insulin Human Lispro 0 unit 10/21/24 06:00 10/21/24 05:00 Humalog 100 Units/Ml 10ml Vial (Ssi) SUBCUT 11/20/24 05:59 2 unit ACHS [facility] Administration Protocol Loratadine 10 mg 10/21/24 09:00 Loratadine 10mg Tablet PO 11/20/24 08:59 DAILY [facility] Metoprolol Succinate 25 mg 10/21/24 09:00 Metoprolol Succinate Xl 25mg Tablet PO 11/20/24 08:59 DAILY [facility] Non-Formulary Medication 2.5 mg 10/21/24 04:30 Apixaban [Eliquis] PO 11/20/24 04:29 ONCE [facility] Non-Formulary Medication 60 mg 10/21/24 09:00 Duloxetine PO 11/20/24 08:59 DAILY [facility] Non-Formulary Medication 128 mg 10/21/24 09:00 Magnesium Chloride PO 11/20/24 08:59 DAILY [facility] Non-Formulary Medication 1,000 mg 10/21/24 09:00 Ascorbic Acid (Vitamin C) PO 11/20/24 08:59 DAILY [facility] Oseltamivir Phosphate 75 mg 10/21/24 03:54 10/21/24 04:51 Oseltamivir 75mg Capsule PO 10/21/24 03:55 75 mg ONCE ONE Administration Sacubitril/Valsartan 1 each 10/21/24 09:00 Sacubitril/Valsartan 24-26mg Tablet PO 11/20/24 08:59 BID [facility] Sodium Chloride 3 ml 10/21/24 02:57 Sodium Chloride 3% 15ml Neb IH 11/20/24 02:56 ONCE PRN INDUCE SPUTUM COLLECTION Tamsulosin HCl 0.4 mg 10/21/24 21:00 Tamsulosin 0.4mg Capsule PO 11/20/24 20:59 HS [facility] Discontinued Medications Generic Name Dose Route Start Last Admin Trade Name Freq PRN Reason Stop Dose Admin Acetaminophen 1,000 mg 10/21/24 02:34 10/21/24 02:47 Acetaminophen 500mg Tab PO 10/21/24 02:35 1,000 mg ONCE ONE Administration Furosemide 20 mg 10/21/24 04:16 Furosemide 20mg Tablet PO 11/20/24 04:15 DIRECTED PRN Fluid Ceftriaxone Sodium 1 gm/ 50 mls @ 100 mls/hr 10/21/24 02:55 10/21/24 03:31 Sodium Chloride IV 10/21/24 03:24 100 mls/hr ONCE ONE Administration Azithromycin 500 mg/ Sodium 250 mls @ 250 mls/hr 10/21/24 02:56 10/21/24 03:32 Chloride IV 10/21/24 02:57 250 mls/hr ONCE ONE Administration ORDERS Category Date Time Status CXR --portable [XR chest portable] Stat Exams 10/21/24 02:34 Taken BNP [NT Pro Brain Natriuretic Pep.] Stat Lab 10/21/24 02:40 Completed Basic Metabolic Panel [facility] Lab 10/21/24 06:00 Ordered Basic Metabolic Panel [facility] Lab 10/22/24 06:00 Ordered Basic Metabolic Panel [facility] Lab 10/23/24 06:00 Ordered Basic Metabolic Panel [facility] Lab 10/24/24 06:00 Ordered Basic Metabolic Panel [facility] Lab 10/25/24 06:00 Ordered CBC w/Auto Diff [Complete Blood Count Auto Diff] Stat Lab 10/21/24 02:40 Completed CMP [Comprehensive Metabolic Panel] Stat Lab 10/21/24 02:40 Completed Complete Blood Count Auto Diff [facility] Lab 10/21/24 06:00 Ordered Complete Blood Count Auto Diff [facility] Lab 10/22/24 06:00 Ordered Complete Blood Count Auto Diff [facility] Lab 10/23/24 06:00 Ordered Complete Blood Count Auto Diff [facility] Lab 10/24/24 06:00 Ordered Complete Blood Count Auto Diff [facility] Lab 10/25/24 06:00 Ordered Full Resp Panel w/COVID ([facility]) Routine Lab 10/21/24 02:36 Completed HIV Combo Routine Lab 10/21/24 02:40 Received Hepatitis C Ab Qual. W/ RFX Routine Lab 10/21/24 02:40 Received Lactate Venous Stat Lab 10/21/24 02:51 Ordered Magnesium [facility] Lab 10/21/24 06:00 Ordered Rapid PCR Covid and Flu A/B Stat Lab 10/21/24 02:36 Completed UA [Urinalysis and Microscopic] Stat Lab 10/21/24 02:34 Ordered Blood Culture Stat Micro 10/21/24 02:40 Received Sputum Culture & Gram Stain Stat Micro 10/21/24 04:20 Received VBG [Venous Blood Gas] Stat RT 10/21/24 02:51 Completed Tissue Perfus/Sepsis Re-Eval Sepsis Re-Evaluation Performed: Yes Date Performed: 10/21/24 Time Performed: 03:03 Medical Decision Narrative: 88-year-old male with history of CHF, diabetes, coronary artery disease presents for 2 days of worsening productive cough and shortness of breath. History was obtained via interactive discussion with EMS,. On arrival, patient is afebrile with temp 99.9, hemodynamically stable, satting low 90s on room air (was high 80s at home on room air prior to EMS arrival), moving all extremities spontaneously. Full physical exam performed and significant for trace wheezes bilaterally, crackles on the right Differential includes but is not limited to pneumonia, COVID flu, heart failure. Patient was given ceftriaxone and azithromycin for empiric treatment of pneumonia. Patient was not given any fluids at this time given concern for possible volume overload in the setting of CHF. Workup initiated including CBC CMP sputum culture blood culture EKG chest x-ray BNP COVID flu swab. On re-evaluation, patient [remains afebrile, HD stable.] Laboratory workup independently interpreted by me and significant for no significant leukocytosis, no elevation in lactate, no significant electrolyte derangement. Flu test positive. Imaging independently interpreted by me and significant for right perihilar opacity. See radiology read for full review of final results. EKG independently interpreted by me and significant for sinus rhythm with left bundle branch block and first-degree AV block no significant ST changes. Interpreted at 0 235. Given patient history, exam and workup, patient's presentation most likely represents acute hypoxic respiratory failure secondary to influenza and pneumonia. Patient was admitted to the hospital for further evaluation and management.. Procedures Risk/Benefits of Procedure(s) Were Explained: Yes Critical Care Critical Care Time Critical Care Time: No
--- NOTE | 2024-10-21 02:34 | ECG_ITS ---
APPROVED REPORT Exam: Resting ECG HR:95 bpm ECG Measurements Heart Rate 95 AXES AK 248 P 81 QRSd 148 QRS -27 QT 367 T 118 QTc 420 Conclusion SINUS RHYTHM WITH FIRST DEGREE AV BLOCK LEFT BUNDLE BRANCH BLOCK [120+ ms QRS DURATION, 80+ ms Q/S IN V1/V2, 85+ ms R IN I/aVL/V5/V6] ABNORMAL ECG UNCONFIRMED REPORT Electronically signed by : PRECIOUS FRANCO, 10/21/2024 06:47:51
--- NOTE | 2024-10-21 02:34 | XR_ITS ---
PROCEDURE INFORMATION: Exam: XR Chest Exam date and time: 10/21/2024 2:47 AM Age: 88 years old Clinical indication: Cough and shortness of breath; Additional info: Cough, bu shortness of breath TECHNIQUE: Imaging protocol: Radiologic exam of the chest. Views: 1 view. COMPARISON: CT ANGIO CHEST PE PROTOCOL 05/13/2024 2:05 PM FINDINGS: Lungs: Some patchy right lung base airspace disease, atelectasis versus infiltrate. Pleural spaces: Unremarkable. No pleural effusion. No pneumothorax. Heart/Mediastinum: Moderate cardiomegaly. Bones/joints: Unremarkable. IMPRESSION: Moderate cardiomegaly. Some patchy right lung base airspace disease, atelectasis versus infiltrate.
[2024-10-21] MEDS: ACETAMINOPHEN 500MG TAB 1000 MG PO (02:47)
[2024-10-21 02:59] LABS: VBG Base Excess -3.7 mmol/L (-2.4-2.3); VBG HCO3 21.8 mmol/L (23-30); VBG Oxygen Saturation 78.1 % (50-70); VBG PCO2 39.8 mmol/L (35-51); VBG PH 7.36 mmol/L (7.31-7.41); VBG PO2 43.8 mmol/L (28-40); VBG Total CO2 23.1 mmol/L (23-27)
[2024-10-21 03:00] LABS: Coronavirus 19, PCR Not Detected (NotDetected); Influenza B, PCR Not Detected (NotDetected)
[2024-10-21 03:06] LABS: Basophils % 0.4 % (0.1-2.0); Eosinophils % 0.6 % (0.1-12.0); Hematocrit 35.9 % (42.0-52.0); Hemoglobin 11.6 g/dL (14.1-18.0); Lymphocytes # 0.8 K/mm3 (0.7-4.5); Lymphocytes % 10.8 % (10-50); Mean Corpuscular HGB Conc 32.3 g/dL (31.8-35.4); Mean Corpuscular Volume 99.2 fl (80-94); Mean Platelet Volume 10.3 fl (7.4-10.4); Monocytes # 0.5 K/mm3 (0.1-1.0); Monocytes % 7.8 % (1.7-9.3); Neutrophils # 5.5 K/mm3 (1.8-7.8); Neutrophils % 80.1 % (37.0-80.0); Platelet Count 189 K/mm3 (142-424); Red Blood Count 3.62 M/mm3 (4.60-6.20); Red Cell Distribution Width 14.5 % (11.5-17.5); White Blood Count 6.9 K/mm3 (4.8-10.8)
[2024-10-21 03:10] LABS: Alanine Aminotransferase 38 U/L (12-78); Albumin Level 4.3 g/dl (3.5-5.0); Albumin/Globulin Ratio 1.5 (1.1-1.8); Alkaline Phosphatase 134 U/L (38-126); Anion Gap 16.9 mEq/L (5-15); Aspartate Amino Transferase 63 U/L (17-59); Bilirubin,Total 0.5 mg/dl (0.2-1.3); Blood Urea Nitrogen 25 mg/dl (9-20); Calcium 8.8 mg/dl (8.4-10.2); Carbon Dioxide 25 mmol/L (22.0-30.0); Chloride 100 mmol/L (98-107); Creatinine Clearance Estimated 92 mL/min (50-200); Estimated Glomerular Filt Rate 71 ml/min (>60); GFR (African American) 86 ML/MIN (>60); Globulin 2.9 g/dL (1.3-3.2); Glucose 220 mg/dl (74-100); Potassium 4.9 mmoL/L (3.5-5.1); Sodium 137 mmol/L (136-145); Total Protein,Serum 7.2 g/dl (6.3-8.2)
[2024-10-21] MEDS: CEFTRIAXONE 1 GM 1 GM in 0.9 % SODIUM CHLORIDE 50 ML IV ×2 (03:31→20:16)
[2024-10-21] MEDS: AZITHROMYCIN 500 MG in 0.9 % SODIUM CHLORIDE 250 ML 250 MG IV (03:32)
[2024-10-21 03:45] LABS: Adenovirus,PCR Not Detected (NotDetected); Bordetella Pertussis Not Detected (NotDetected); Chlamydophila Pneumoniae, PCR Not Detected (NotDetected); Coronavirus 19, PCR Not Detected (NotDetected); Coronavirus 229E Not Detected (NotDetected); Coronavirus NL63 Not Detected (NotDetected); Coronavirus OC43 Not Detected (NotDetected); Coronovirus HKU1,PCR Not Detected (NotDetected); Human Metapneumovirus Not Detected (NotDetected); Influenza A, PCR Not Detected (NotDetected); Influenza AH1, PCR Not Detected (NotDetected); Influenza AH3,PCR Not Detected (NotDetected); Influenza B, PCR Not Detected (NotDetected); Mycoplasma Pneumoniae, PCR Not Detected (NotDetected); Parainfluenza 1, PCR Not Detected (NotDetected); Parainfluenza 2, PCR Not Detected (NotDetected); Parainfluenza 3, PCR Not Detected (NotDetected); Parainfluenza 4, PCR Not Detected (NotDetected); Respiratory Syncytial Virus Not Detected (NotDetected); Rhinovirus/Enterovirus Not Detected (NotDetected)
[2024-10-21 03:46] LABS: NT Pro Brain Natriuretic Pep. 6660 pg/mL (0-450)
[2024-10-21 03:51] LABS: Influenza A, PCR Detected (NotDetected)
--- NOTE | 2024-10-21 04:01 | PC.NURSE ---
Report called to Snow August RN
--- NOTE | 2024-10-21 04:19 | P.HP_ITS ---
History of Present Illness *Admission Date: 10/21/24 *Reason for visit:: Shortness of breath *History of present illness: The patient is an 88-year-old male with a past medical history of congestive heart failure (CHF), diabetes mellitus, coronary artery disease, BPH, mild cognitive impairment mild cognitive impairment, and obstructive sleep apnea (NIGHAT) on BiPAP who presents with two days of worsening productive cough and shortness of breath. His symptoms were initially mild but progressed to the point where he was having increased work of breathing at home with oxygen saturations in the high 80s on room air. EMS was activated, and upon arrival, he was found to have continued dyspnea with a persistent cough producing yellow sputum. He denies hemoptysis, chest pain, orthopnea, paroxysmal nocturnal dyspnea, or lower extremity swelling. Upon arrival at the emergency department, the patient was afebrile with a temperature of 99.9?F, hemodynamically stable, and saturating in the low 90s on room air. He was alert, oriented, and moving all extremities spontaneously. Physical examination revealed bilateral trace wheezes and right-sided crackles, raising concern for pneumonia versus volume overload in the setting of CHF. Initial laboratory results showed a WBC of 6.9, mild anemia (Hgb 11.6), mild renal impairment (BUN 25), and an elevated NT-proBNP of 6660, suggestive of possible CHF exacerbation. His COVID-19 PCR was negative, but influenza A PCR was detected. A chest X-ray was performed and interpreted independently, revealing right-sided infiltrates without evidence of overt pulmonary edema or cardiomegaly. Given his clinical presentation, imaging findings, and positive influenza A PCR, empiric treatment was initiated with ceftriaxone and azithromycin for possible bacterial pneumonia and Tamiflu for influenza. Given his CHF history and risk for volume overload, no IV fluids were administered at this time. Additional diagnostic testing, including sputum and blood cultures, venous blood gas (VBG), and metabolic workup, were obtained. His oxygen requirements remain stable on 2 L nasal cannula but will require close monitoring for any signs of respiratory decompensation. [facility] Disclaimer: The information contained in this section may have been updated after the patient was seen, as this information can be updated by other users. Medical History Shortness of breath Hypertension High anion gap metabolic acidosis Cervicogenic headache Hearing loss Tinnitus of both ears Surgical History History of right hip replacement History of knee replacement Family History Other Unknown family medical history Social History Smoking Status: Never smoker alcohol intake: never substance use type: denies use current occupational status: retired Travel in the last 8 weeks: None housing: house lives independently: Yes marital status: current occupational exposures/hazards: No caffeine: Yes Contact w/someone who lives/traveled outside [place] past 30 days?: No Exposure to someone with infectious disease in past 14 days?: No Do you have a fever (greater than 100.4 F or 38 C)?: No Have you tested positive for COVID-19: No Exposed to someone with COVID-19 in past 14 days?: No Do you have a sore throat?: No Do you have a cough?: Yes Are you experiencing any nausea/vomitting?: Yes Do you have any diarrhea?: No Are you experiencing any unusual bleeding?: No Do you have any muscle aches/pain?: Yes Do you have any abdominal pain?: No Are you experiencing loss of taste or smell?: No Other Medical History Have you received the Flu Vaccine for this season: Yes Have you received the Pneumonia Vaccine: Yes Review of Systems Review of Systems Review of systems (narrative): 13 point review of systems negative outside HPI Meds Home Medications and Allergies Home Medications ?Medication ?Instructions ?Recorded ?Confirmed ?Type tamsulosin 0.4 mg capsule 0.4 mg PO HS 03/12/18 10/21/24 History duloxetine 60 mg capsule,delayed 60 mg PO DAILY 02/14/23 10/21/24 History release acetaminophen 500 mg tablet 500 mg PO Q6HP PRN Mild Pain 04/16/23 10/21/24 History (Tylenol Extra Strength) (Scale Score 1-4) ascorbic acid (vitamin C) 500 mg 1,000 mg PO DAILY 04/16/23 10/21/24 History capsule atorvastatin 40 mg tablet 40 mg PO DAILY 90 days #90 tabs 04/16/23 10/21/24 History cholecalciferol (vitamin D3) 125 125 mcg PO DAILY Supplement 04/16/23 10/21/24 History mcg (5,000 unit) capsule donepezil 5 mg tablet (Aricept) 5 mg PO HS 04/16/23 10/21/24 History amiodarone 200 mg tablet 200 mg PO DAILY 10/21/24 10/21/24 History apixaban 5 mg tablet (Eliquis) 5 mg PO BID 10/21/24 10/21/24 History bumetanide 0.5 mg tablet 0.5 mg PO DAILY 10/21/24 10/21/24 History metformin 1,000 mg tablet 500 mg PO BID 10/21/24 10/21/24 History midodrine 5 mg tablet 5 mg PO TID 10/21/24 10/21/24 History spironolactone 25 mg tablet 25 mg PO DAILY 10/21/24 10/21/24 History New Prescriptions to Start Prescriptions: Allergies Allergy/AdvReac Type Severity Reaction Status Date / Time tetanus and diphtheria Allergy Intermediate I-HIVES Verified 05/14/24 13:26 toxoids (TETANUS & DIPHTHERIA TOXOIDS) Exam Data for Last 24 hours Vital signs and Labs for Last 24 Hours: Temp Pulse Resp BP Pulse Ox O2 Del Method O2 Flow Rate 99.9 F H 90 20 112/76 93 L Nasal Cannula 2 10/21/24 02:27 10/21/24 04:00 10/21/24 02:27 10/21/24 04:00 10/21/24 04:00 10/21/24 04:00 10/21/24 04:00 Laboratory Results - last 24 hr 10/21/24 02:36: SARS-CoV-2 (PCR) Not detected, Influenza A Untype (PCR) Detected A, Influenza Type B (PCR) Not detected 10/21/24 02:40: WBC 6.9, RBC 3.62 L, Hgb 11.6 L, Hct 35.9 L, MCV 99.2 H, MCH 32.0 H, MCHC 32.3, RDW 14.5, Plt Count 189, MPV 10.3, Neut % (Auto) 80.1 H, Lymph % (Auto) 10.8, Teller % (Auto) 7.8, Eos % (Auto) 0.6, Baso % (Auto) 0.4, Neut # (Auto) 5.5, Lymph # (Auto) 0.8, Teller # (Auto) 0.5, Eos # (Auto) 0.0, Baso # (Auto) 0.0, Sodium 137, Potassium 4.9, Chloride 100, Carbon Dioxide 25, Anion Gap 16.9 H, BUN 25 H, Creatinine 1.00, Estimated Creat Clear 92, Estimated GFR 71, Est GFR ( Amer) 86, Glucose 220 H, Calcium 8.8, Total Bilirubin 0.5, AST 63 H, ALT 38, Alkaline Phosphatase 134 H, NT-Pro-B Natriuret Pep 6660 H, Total Protein 7.2, Albumin 4.3, Globulin 2.9, Albumin/Globulin Ratio 1.5 10/21/24 02:51: VBG pH 7.36, VBG pCO2 39.8, VBG pO2 43.8 H, VBG HCO3 21.8 L, VBG Total CO2 23.1, VBG O2 Saturation 78.1 H, VBG Base Excess -3.7 L, VBG Lactic Acid 2.0 I & O for Last 24 hours: Intake & Output 10/18/24 10/19/24 10/20/24 10/21/24 23:59 23:59 23:59 23:59 Weight 122.47 kg Constitutional Constitutional: no acute distress *Routine HEENT Exam Head: Present normocephalic Eye: Present EOMI and PERRL ENT: Present mucous membranes moist *Routine Neck Exam Neck: Present supple; Absent lymphadenopathy *Routine Respiratory Exam Respiratory: Present wheezes (Bilateral) and crackles (Coarse crackles in right lower lobe, fine crackles in left lower lobe) *Routine Cardiovascular Exam Cardiovascular: Present RRR *Routine Abdominal Exam Abdominal: Present soft and normoactive bowel sounds; Absent tenderness *Routine Rectal Exam Rectal:: deferred *Routine Genitalia Exam Genitalia:: deferred *Routine Extremities Exam Extremities: Absent cyanosis, clubbing or edema *Routine Skin Exam Skin: Present warm; Absent rash *Routine Neurological Exam Neurological: Present alert and oriented X3 Assessment and Plan *Assessment and plan (1) Pneumonia: Status: Acute Qualifiers: Pneumonia type: due to influenza A virus Qualified Code(s): J10.00 - Influenza due to other identified influenza virus with unspecified type of pneumonia Category: Medical Code(s): J18.9 - Pneumonia, unspecified organism (2) Shortness of breath: Status: Acute Category: Medical Code(s): R06.02 - Shortness of breath (3) Generalized weakness: Status: Acute Category: Medical Code(s): R53.1 - Weakness (4) NIGHAT (obstructive sleep apnea): Problem Comment: He has history of severe NIGHAT, nocturnal hypoxemia currently on ASV and O2 at night, ([facility]?sleep center, Dr. Stephani Delgado). Status: Chronic Category: Medical Code(s): G47.33 - Obstructive sleep apnea (adult) (pediatric) (5) Diabetes mellitus: Problem Comment: Poorly controlled, most recent A1CHb >10. 9 on 12/26/2022. Likely contributing factor for nocturia Status: Chronic Qualifiers: Diabetes mellitus complication status: without complication Diabetes mellitus skilled nursing insulin use: without adjunct faculty for medical terminology use Diabetes mellitus type: type 2 Qualified Code(s): E11.9 - Type 2 diabetes mellitus without complications Category: Medical Code(s): E11.9 - Type 2 diabetes mellitus without complications (6) BPH (benign prostatic hyperplasia): Problem Comment: On Tamsulosin 0.4 mg po qhs. Status: Chronic Qualifiers: Lower urinary tract symptom detail: nocturia Lower urinary tract symptom presence: symptoms present Qualified Code(s): N40.1 - Benign prostatic hyperplasia with lower urinary tract symptoms; R35.1 - Nocturia Category: Medical Code(s): N40.0 - Benign prostatic hyperplasia without lower urinary tract symptoms (7) BMI greater than 30: Status: Chronic Category: Medical (8) Influenza: Status: Acute Category: Medical Code(s): J11.1 - Influenza due to unidentified influenza virus with other respiratory manifestations (9) Cough: Status: Acute Qualifiers: Cough type: acute Qualified Code(s): R05.1 - Acute cough Category: Medical Code(s): R05.9 - Cough, unspecified Plan MEDICAL DECISION MAKING: This 88-year-old male presents with acute worsening of cough and shortness of breath in the setting of a positive influenza A infection and right-sided pulmonary infiltrates, raising suspicion for influenza pneumonia with possible secondary bacterial pneumonia versus CHF exacerbation. His NT-proBNP is significantly elevated, which may reflect volume overload, though clinical exam and imaging do not currently indicate overt pulmonary congestion. He has been started on antiviral therapy (Tamiflu) and empiric antibiotics (ceftriaxone and azithromycin) to cover for potential bacterial superinfection. Given his CHF history, no IV fluids were administered to prevent worsening pulmonary congestion. His oxygen saturation has improved from home baseline but will require continued respiratory monitoring. He remains hemodynamically stable with no signs of sepsis, though his mild metabolic acidosis and elevated lactate suggest some degree of hypoperfusion versus ongoing infectious/inflammatory response. Influenza A Pneumonia with Possible Secondary Bacterial Pneumonia * Tamiflu (oseltamivir) 75 mg PO BID initiated for confirmed influenza A. * Empiric ceftriaxone 1 g IV q24h + azithromycin 500 mg IV daily for possible bacterial pneumonia. * Sputum and blood cultures pending; antibiotics may be adjusted based on microbiology results. * Chest X-ray findings consistent with right-sided infiltrates; continue monitoring for progression. * Full respiratory panel pending Congestive Heart Failure (NT-proBNP 6660) * No IV fluids given due to concern for volume overload. * Daily weights and strict I/Os to assess fluid balance. * Coarse crackles detected in right lower lobe, will give moderate 20 mg IV Lasix and assess * Continue home cardiac diuretic regimen Hypoxia * Patient is currently saturating low 90s on room air; continue oxygen monitoring. * Avoid excessive oxygen therapy to prevent worsening hypercapnia given history of COPD. * Repeat VBG if respiratory status declines to monitor for CO2 retention. * Detectable wheezes, DuoNebs every 4 as needed Diabetes Mellitus (Glucose 220, No DKA or HHS) * Initiate sliding scale insulin as needed for glucose control. * Before meals and at bedtime Accu-Cheks * Monitor blood glucose closely as infection may contribute to transient hyperglycemia. Mild Metabolic Acidosis (VBG pH 7.36, HCO3 21.8, Lactate 2.0) * Likely due to underlying inflammatory response from infection. * Monitor lactate and bicarbonate trends; no immediate intervention required. Mild Anemia (Hgb 11.6, Likely Chronic) * No acute intervention needed; monitor for further decline. Admission & Monitoring * Admit for continued respiratory monitoring, IV antibiotics, and antiviral therapy. * Monitor for signs of worsening respiratory failure, sepsis, or CHF exacerbation. * Reassess diuresis needs based on clinical response and volume status. * Repeat imaging if respiratory status worsens to evaluate for pneumonia progression or CHF exacerbation. Rounded on patient after nurse practitioner. Personally examined and interviewed patient. Agree with exam findings and care plan as documented.
--- NOTE | 2024-10-21 04:23 | PC.NURSE ---
pt arrived on floor by wc from er
[2024-10-21] MEDS: OSELTAMIVIR 75MG CAPSULE 75 MG PO ×3 (04:51→20:16)
[2024-10-21] MEDS: humaLOG 100 UNITS/ML 10ML VIAL (SSI) SUBCUT ×3 (05:00→16:28)
[2024-10-21 05:05] LABS: POC Glucose,Bedside 188 (70-110)
[2024-10-21] MEDS: FUROSEMIDE 20 MG/2 ML VIAL IV (05:11)
[2024-10-21 05:24] LABS: Influenza AH1, 2009 Detected (NotDetected)
--- NOTE | 2024-10-21 07:30 | PC.NURSE ---
Attempted to wean patient to room air. Patient's o2 dropped to 87% on room air. Placed on 1L NC and stating 94%.
[2024-10-21 07:52] LABS: Basophils % 0.4 % (0.1-2.0); Eosinophils % 0.2 % (0.1-12.0); Hematocrit 33.5 % (42.0-52.0); Hemoglobin 10.9 g/dL (14.1-18.0); Lymphocytes # 0.9 K/mm3 (0.7-4.5); Lymphocytes % 16.9 % (10-50); Mean Corpuscular HGB Conc 32.5 g/dL (31.8-35.4); Mean Corpuscular Hemoglobin 32.2 pg (27.0-31.2); Mean Corpuscular Volume 99.1 fl (80-94); Mean Platelet Volume 10.3 fl (7.4-10.4); Monocytes # 0.5 K/mm3 (0.1-1.0); Monocytes % 9.3 % (1.7-9.3); Neutrophils # 3.9 K/mm3 (1.8-7.8); Neutrophils % 72.8 % (37.0-80.0); Platelet Count 173 K/mm3 (142-424); Red Blood Count 3.38 M/mm3 (4.60-6.20); Red Cell Distribution Width 14.5 % (11.5-17.5); White Blood Count 5.4 K/mm3 (4.8-10.8)
[2024-10-21 07:53] LABS: Chloride 101 mmol/L (98-107); Potassium 4.2 mmoL/L (3.5-5.1); Sodium 135 mmol/L (136-145)
[2024-10-21 07:56] LABS: Anion Gap 15.2 mEq/L (5-15); Blood Urea Nitrogen 22 mg/dl (9-20); Calcium 8.5 mg/dl (8.4-10.2); Carbon Dioxide 23 mmol/L (22.0-30.0); Creatinine Clearance Estimated 93 mL/min (50-200); Estimated Glomerular Filt Rate 92 ml/min (>60); GFR (African American) 111 ML/MIN (>60); Glucose 146 mg/dl (74-100)
[2024-10-21 07:57] LABS: Magnesium 1.9 mg/dl (1.6-2.3)
[2024-10-21 08:17] LABS: HIV Combo NEGATIVE (Negative)
--- NOTE | 2024-10-21 09:09 | HMH.PHAINT1 ---
Pharmacy Intervention Comments: MEDICATION RECONCILIATION COMPLETED ON PATIENT USING EXTERNAL FILL HISTORY FROM PHARMACY, LIST FROM PCP OFFICE, AND DOLORES REPORT. -SAMEERA HOUSTOND
[2024-10-21] MEDS: APIXABAN 5MG TABLET 5 MG PO ×2 (09:25→20:16)
[2024-10-21] MEDS: AZITHROMYCIN 250MG TABLET 250 MG PO (09:25)
[2024-10-21] MEDS: DULOXETINE 30MG CAPSULE.DR 60 MG PO (09:25)
[2024-10-21] MEDS: CLOPIDOGREL 75MG TAB 75 MG PO (09:25)
[2024-10-21] MEDS: LORATADINE 10MG TABLET 10 MG PO (09:25)
[2024-10-21] MEDS: ACETAMINOPHEN 325MG TAB 650 MG PO ×2 (09:25→14:46)
[2024-10-21] MEDS: METOPROLOL SUCCINATE XL 25MG TABLET 25 MG PO (09:25)
[2024-10-21] MEDS: ASCORBIC ACID 500MG TAB 500 MG PO ×2 (09:25→20:16)
[2024-10-21] MEDS: FUROSEMIDE 20MG TABLET 20 MG PO (09:25)
[2024-10-21] MEDS: SACUBITRIL/VALSARTAN 24-26MG TABLET 1 EACH PO (09:25)
[2024-10-21 09:38] LABS: Hepatitis C Ab Qual. W/ RFX NEGATIVE (Negative)
[2024-10-21] MEDS: IPRATROPIUM/ALBUTEROL 3 ML NEB IH ×3 (09:43→23:05)
[2024-10-21 11:34] LABS: POC Glucose,Bedside 190 (70-110)
--- NOTE | 2024-10-21 13:50 | HMH.OTEV ---
OT Inpatient Evaluation Rehab OT IP Evaluation Start: 10/21/24 10:47 Freq: ONCE Status: Active Protocol: Document 10/21/24 13:44 [facility] (Rec: 10/21/24 13:49 [facility] [id number]) Rehab OT IP Assessment Subjective History Pt oriented x 3 on arrival. Pt agreeable to engage in therapy evaluation. Pt admitted on 10/21/24 due to SOB. History and physical: The patient is an 88-year-old male with a past medical history of congestive heart failure (CHF), diabetes mellitus, coronary artery disease, BPH, mild cognitive impairment mild cognitive impairment, and obstructive sleep apnea (NIGHAT) on BiPAP who presents with two days of worsening productive cough and shortness of breath. His symptoms were initially mild but progressed to the point where he was having increased work of breathing at home with oxygen saturations in the high 80s on room air. EMS was activated, and upon arrival, he was found to have continued dyspnea with a persistent cough producing yellow sputum. He denies hemoptysis, chest pain, orthopnea, paroxysmal nocturnal dyspnea, or lower extremity swelling. Upon arrival at the emergency department, the patient was afebrile with a temperature of 99.9?F, hemodynamically stable, and saturating in the low 90s on room air. He was alert, oriented, and moving all extremities spontaneously. Physical examination revealed bilateral trace wheezes and right-sided crackles, raising concern for pneumonia versus volume overload in the setting of CHF. Initial laboratory results showed a WBC of 6.9, mild anemia (Hgb 11.6), mild renal impairment (BUN 25), and an elevated NT-proBNP of 6660 , suggestive of possible CHF exacerbation. His COVID-19 PCR was negative, but influenza A PCR was detected. A chest X-ray was performed and interpreted independently, revealing right-sided infiltrates without evidence of overt pulmonary edema or cardiomegaly. Given his clinical presentation, imaging findings, and positive influenza A PCR, empiric treatment was initiated with ceftriaxone and azithromycin for possible bacterial pneumonia and Tamiflu for influenza. Given his CHF history and risk for volume overload, no IV fluids were administered at this time. Additional diagnostic testing, including sputum and blood cultures, venous blood gas ( VBG), and metabolic workup, were obtained. His oxygen requirements remain stable on 2 L nasal cannula but will require close monitoring for any signs of respiratory decompensation. Subjective I did what I needed to. Pt reports prior to being in the hospital, pt lived at home alone. Pt claims he is normally independent with all ADLs and IADLs. Pt still drives. Pt also still does all of his grocery shopping. Pt does use a rolling walker during functional transfers intermittently. Pt wears o2 at night while sleeping. Objective Patient Orientation Person,Place,Birthday Right Upper Extremity Gross ROM WFL Left Upper Extremity Gross ROM WFL Transfer Training Sit/Stand Transfer Assist Level Contact Guard/Hand Hold Chair Transfer Ability Contact Guard/Hand Hold Chair Transfer Technique Sit to/from Ambulatory Chair Transfer Assistive Devices Rolling Walker Lower Body Dressing Ability Standby Assistance Performing Toilet Hygiene Ability Standby Assistance Overall Commode/Toilet Transfer Ability Contact Guard Commode/Toilet Transfer Technique Sit to/from Ambulatory Rehab OT IP prob,goals,plan Problems Date of Evaluation: 10/21/24 Rehab Potential Rehab Potential Innapropriate for Skilled Therapy Discharge Plan OT Discharge Plan Pt appears to be his baseline with functional transfers and ADL independence. Pt can return home once he is medically stable per physician . Therapist recommends OT evaluation for environmental safety upon returning home. Eval Complexity Eval Charge Codes 42711 - Low Complexity PHYSICIAN CERTIFICATION: I certify the specified therapy services for Steve King are required, authorized, and reviewed every 30 days.
--- NOTE | 2024-10-21 15:47 | SW/DCPLANNER ---
Addendum entered by Selina Cox 10/23/24 10:28: Patient continues to refuse home health services at this time. Original Note: Therapy recommended HH at discharge. I spoke with patient regarding this and he does not want any home health or outpatient therapy services at this time. ELLEN Higuera
[2024-10-21] MEDS: ACETAMINOPHEN 325MG TAB 325 MG PO (16:13)
[2024-10-21 16:23] LABS: POC Glucose,Bedside 151 (70-110)
[2024-10-21] MEDS: MAGNESIUM SULFATE IN WATER 2 GM/50 ML PIGGYBACK IV (16:41)
--- NOTE | 2024-10-21 16:44 | HMH.PTEV ---
Physical Therapy Evaluation Rehab PT IP Evaluation Start: 10/21/24 10:48 Freq: ONCE Status: Active Protocol: Document 10/21/24 16:40 [facility] (Rec: 10/21/24 16:43 [facility] [id number]) Subjective/History History History Per H&P: The patient is an 88 -year-old male with a past medical history of congestive heart failure (CHF), diabetes mellitus, coronary artery disease, BPH, mild cognitive impairment mild cognitive impairment, and obstructive sleep apnea (NIGHAT) on BiPAP who presents with two days of worsening productive cough and shortness of breath. His symptoms were initially mild but progressed to the point where he was having increased work of breathing at home with oxygen saturations in the high 80s on room air. EMS was activated, and upon arrival, he was found to have continued dyspnea with a persistent cough producing yellow sputum. He denies hemoptysis, chest pain, orthopnea, paroxysmal nocturnal dyspnea, or lower extremity swelling. Subjective Subjective Pt reports prior to being in the hospital, pt lived at home alone. Pt claims he is normally independent with all ADLs, mobility, and IADLs. Pt still drives. Pt does use a rolling walker during functional transfers intermittently. Pt wears O2 at night while sleeping. New diagnosis of cancer in past 12 No months? Rehab PT IP Eval Objective Appearance Patient Behavior Appropriate,Cooperative Patient Orientation Person,Birthday,Situation Difficulty following instructions none Speech Pattern Clear Ambulation Patient Able to Ambulate Yes Ambulation Observation IP General Gait Pattern Observation Wide Based Gait Ambulation Distance (feet) 30 Ambulation Assistive Device Rolling Walker Ambulation Ability Supervision/Stand by,Contact Guard/Hand Hold Balance Ability to Arise Able, uses arms to help Sitting Balance Steady, safe Standing Balance Steady, wide stance Dynamic Sitting Balance Ability Normal Dynamic Standing Balance Ability Good Transfers Bed Transfer Ability Supervision/Stand by Sit to Stand Bed Transfer Ability Supervision/Stand by Sit to Stand Chair Transfer Ability Supervision/Stand by Rehab PT IP prob,goals,plan Problems Date of Evaluation: 10/21/24 Rehab Potential Rehab Potential Innapropriate for Skilled Therapy Discharge Plan PT Discharge Plan Pt safe to d/c home when deemed medically necessary d/t current level of mobility, home set-up, and family support. Pt not appropriate for skilled acute care PT at this time d/t pt?s mobility being at baseline. PT recommending PT services to address general strength and endurance. Eval Complexity Eval Charge Codes 99733 - Moderate Complexity PHYSICIAN CERTIFICATION: I certify the specified therapy services for Steve King are required, authorized, and reviewed every 30 days.
[2024-10-21] MEDS: TAMSULOSIN 0.4MG CAPSULE 0.4 MG PO (20:17)
[2024-10-21] MEDS: ATORVASTATIN 40MG TABLET 40 MG PO (20:17)
[2024-10-21] MEDS: DONEPEZIL 5MG TAB 5 MG PO (20:17)
[2024-10-21 20:32] LABS: POC Glucose,Bedside 166 (70-110)
[2024-10-22] VITALS (9 sets, daily range): BP systolic 86–109; BP diastolic 50–67; PULSE 66–88; RESP 16–20; TEMP 36.4–37.3; O2SAT 90–96; BMI 32.8
[2024-10-22] MEDS: MIDODRINE HCL 5 MG TABLET PO ×4 (00:19→20:20)
--- NOTE | 2024-10-22 02:52 | PC.NURSE ---
PT IS RESTING IN BED. TOLERATED SITTING UP IN THE CHAIR FOR A FEW HOURS AT THE BEGINNING OF THE SHIFT. LUNG SOUNDS DIMINISHED WITH RIGHT SIDED CRACKLES. ABDOMEN SOFT/NON TENDER WITH ACTIVE BOWEL SOUNDS. RASH NOTED TO BACK, LEFT SIDE OF THE CHEST AND RLE. MIDODRINE WAS ORDERED FOR PT'S LOW BP THIS SHIFT. WILL CONTINUE TO MONITOR.
[2024-10-22 04:44] LABS: POC Glucose,Bedside 200 (70-110)
[2024-10-22] MEDS: humaLOG 100 UNITS/ML 10ML VIAL (SSI) SUBCUT ×4 (05:03→20:23)
[2024-10-22] MEDS: IPRATROPIUM/ALBUTEROL 3 ML NEB IH ×4 (06:15→23:59)
[2024-10-22 06:51] LABS: Basophils % 0.2 % (0.1-2.0); Eosinophils % 0.6 % (0.1-12.0); Hematocrit 34.2 % (42.0-52.0); Lymphocytes # 1.1 K/mm3 (0.7-4.5); Lymphocytes % 20.4 % (10-50); Mean Corpuscular HGB Conc 32.2 g/dL (31.8-35.4); Mean Corpuscular Hemoglobin 31.7 pg (27.0-31.2); Mean Corpuscular Volume 98.6 fl (80-94); Mean Platelet Volume 10.1 fl (7.4-10.4); Monocytes # 0.5 K/mm3 (0.1-1.0); Monocytes % 10.1 % (1.7-9.3); Neutrophils # 3.5 K/mm3 (1.8-7.8); Neutrophils % 68.3 % (37.0-80.0); Platelet Count 201 K/mm3 (142-424); Red Blood Count 3.47 M/mm3 (4.60-6.20); Red Cell Distribution Width 14.5 % (11.5-17.5); White Blood Count 5.1 K/mm3 (4.8-10.8)
[2024-10-22 06:56] LABS: Chloride 98 mmol/L (98-107); Potassium 4.8 mmoL/L (3.5-5.1); Sodium 133 mmol/L (136-145)
[2024-10-22 06:59] LABS: Anion Gap 11.8 mEq/L (5-15); Blood Urea Nitrogen 28 mg/dl (9-20); Calcium 8.1 mg/dl (8.4-10.2); Carbon Dioxide 28 mmol/L (22.0-30.0); Creatinine Clearance Estimated 92 mL/min (50-200); Estimated Glomerular Filt Rate 80 ml/min (>60); GFR (African American) 97 ML/MIN (>60); Glucose 159 mg/dl (74-100)
[2024-10-22] MEDS: APIXABAN 5MG TABLET 5 MG PO ×2 (08:10→20:22)
[2024-10-22] MEDS: OSELTAMIVIR 75MG CAPSULE 75 MG PO ×2 (08:10→20:20)
[2024-10-22] MEDS: AZITHROMYCIN 250MG TABLET 250 MG PO (08:10)
[2024-10-22] MEDS: ACETAMINOPHEN 500MG TAB 1000 MG PO ×2 (08:10→21:58)
[2024-10-22] MEDS: LORATADINE 10MG TABLET 10 MG PO (08:10)
[2024-10-22] MEDS: ASCORBIC ACID 500MG TAB 500 MG PO ×2 (08:11→20:20)
[2024-10-22] MEDS: AMIODARONE 200MG TABLET 200 MG PO (08:11)
[2024-10-22] MEDS: DULOXETINE 30MG CAPSULE.DR 60 MG PO (08:11)
[2024-10-22] MEDS: BUMETANIDE 1 MG TABLET PO (08:11)
[2024-10-22 11:12] LABS: POC Glucose,Bedside 185 (70-110)
--- NOTE | 2024-10-22 13:56 | EXP.ACUTE.PN ---
Subjective *Date: 10/22/24 *Time: 13:56 Interval history: Patient stable on 1 L this morning. Showing some improvement. Worked with therapy yesterday, stable to discharge home, at baseline function. Denies any chest pain. Having productive cough. Afebrile overnight. No nausea or vomiting. Tolerating p.o. intake. Medical Exam Vital signs and Labs for Last 24 Hours: Vital Signs Temp Pulse Pulse Resp BP Pulse Ox O2 Del Method 10/22/24 13:00 84 10/22/24 13:00 88 10/22/24 11:00 Nasal Cannula 10/22/24 10:55 98.1 F 68 20 91/58 L 94 L Nasal Cannula 10/22/24 09:00 Nasal Cannula 10/22/24 08:00 Nasal Cannula 10/22/24 08:00 98 F 68 20 109/59 L 94 L Nasal Cannula 10/22/24 06:51 Nasal Cannula 10/22/24 06:15 75 10/22/24 06:15 76 10/22/24 06:15 91 L Nasal Cannula 10/22/24 04:30 Nasal Cannula 10/22/24 04:00 99.2 F 77 17 93/55 L 90 L Nasal Cannula 10/22/24 02:44 Nasal Cannula 10/22/24 00:39 Nasal Cannula 10/22/24 00:00 98.2 F 77 17 86/50 L 94 L Nasal Cannula 10/21/24 23:05 72 10/21/24 23:05 76 10/21/24 23:05 90 L Nasal Cannula 10/21/24 22:51 Nasal Cannula 10/21/24 20:25 Nasal Cannula 10/21/24 20:00 Nasal Cannula 10/21/24 20:00 97.5 F L 59 L 17 88/46 L 95 Room Air 10/21/24 18:56 Nasal Cannula 10/21/24 18:20 92 L Nasal Cannula 10/21/24 18:20 58 L 10/21/24 18:20 62 10/21/24 17:00 Nasal Cannula 10/21/24 16:00 98.0 F 81 18 106/70 L 92 L Nasal Cannula 10/21/24 15:00 Nasal Cannula O2 Flow Rate 10/22/24 13:00 10/22/24 13:00 10/22/24 11:00 1 10/22/24 10:55 1 10/22/24 09:00 1 10/22/24 08:00 1 10/22/24 08:00 1 10/22/24 06:51 1 10/22/24 06:15 10/22/24 06:15 10/22/24 06:15 1 10/22/24 04:30 1 10/22/24 04:00 1 10/22/24 02:44 1 10/22/24 00:39 1 10/22/24 00:00 1 10/21/24 23:05 10/21/24 23:05 10/21/24 23:05 1 10/21/24 22:51 1 10/21/24 20:25 1 10/21/24 20:00 1 10/21/24 20:00 10/21/24 18:56 1 10/21/24 18:20 1 10/21/24 18:20 10/21/24 18:20 10/21/24 17:00 1 10/21/24 16:00 1 10/21/24 15:00 1 Intake and Output 10/21/24 10/22/24 10/22/24 23:59 07:59 15:59 Intake Total 290 / 1130 45 / 285 240 / 285 Output Total 0 / 1800 1000 / 2200 1200 / 2200 Balance 290 / -670 -955 / -1915 -960 / -1915 Intake: Intake, Oral Amount 240 / 1080 240 / 240 Intake, Total IV Amount 50 / 50 45 / 45 Ceftriaxone 1 gm 1 gm In 0.9 % 45 / 45 Sodium Chloride 50 ml @ 100 mls /hr IV Q24H [facility] Rx#:[id number] Magnesium Sulfate in Water 2 gm 50 / 50 In 50 ml @ 50 mls/hr IV ONCE ONE Rx#:[id number] Output: Output, Urine Amount 0 / 1800 1000 / 2200 1200 / 2200 Other: Number of Unmeasured Voids 2 0 Weight 122.515 kg Patient Weight 10/22/24 23:59 Weight 122.515 kg Laboratory Results - last 24 hr 10/21/24 16:12: POC Glucose 151 H 10/21/24 20:23: POC Glucose 166 H 10/22/24 04:37: POC Glucose 200 H 10/22/24 05:54: WBC 5.1, RBC 3.47 L, Hgb 11.0 L, Hct 34.2 L, MCV 98.6 H, MCH 31.7 H, MCHC 32.2, RDW 14.5, Plt Count 201, MPV 10.1, Neut % (Auto) 68.3, Lymph % (Auto) 20.4, [place] % (Auto) 10.1 H, Eos % (Auto) 0.6, Baso % (Auto) 0.2, Neut # (Auto) 3.5, Lymph # (Auto) 1.1, [place] # (Auto) 0.5, Eos # (Auto) 0.0, Baso # (Auto) 0.0, Sodium 133 L, Potassium 4.8, Chloride 98, Carbon Dioxide 28, Anion Gap 11.8, BUN 28 H D, Creatinine 0.90, Estimated Creat Clear 92, Estimated GFR 80, Est GFR ( Amer) 97, Glucose 159 H, Calcium 8.1 L 10/22/24 11:04: POC Glucose 185 H I & O for Labs for Last 24 Hours: Intake & Output 10/19/24 10/20/24 10/21/24 10/22/24 23:59 23:59 23:59 23:59 Intake Total 1130 / 1130 285 / 285 Output Total 1300 / 1800 2200 / 2200 Balance -170 / -670 -1915 / -1915 Weight 123.887 kg 122.515 kg Microbiology Reports for the Last 24 Hours: Microbiology 10/21/24 04:20 Sputum - Expectorated Sputum Gram Stain - Final 10/21/24 04:20 Sputum - Expectorated Sputum Sputum Culture - Final 10/21/24 02:40 Blood Blood Culture - Preliminary NO GROWTH AFTER 24 HOURS 10/21/24 02:40 Blood Blood Culture - Preliminary NO GROWTH AFTER 24 HOURS Constitutional: Present no acute distress, obese and cooperative Head: Present atraumatic and normocephalic ENT: Present normal exam Respiratory: Present rhonchi, crackles and normal respiratory effort; Absent accessory muscle use, respiratory distress or wheezes Cardiac: Present Reg Rate and Rhythm GI: Present soft and normal bowel sounds; Absent distention or tenderness Extremities: Present normal inspection and full ROM; Absent edema Skin: Present intact and rash (Dry rash lower back consistent with eczema/dermatitis); Absent erythema Neuro: Present Grossly Intact, alert, awake, oriented x 3 and moves all extremities Assessment and Plan *Assessment and plan (1) Pneumonia: Status: Acute Qualifiers: Pneumonia type: due to influenza A virus Qualified Code(s): J10.00 - Influenza due to other identified influenza virus with unspecified type of pneumonia Category: Medical Code(s): J18.9 - Pneumonia, unspecified organism (2) Influenza: Status: Acute Category: Medical Code(s): J11.1 - Influenza due to unidentified influenza virus with other respiratory manifestations (3) Shortness of breath: Status: Acute Category: Medical Code(s): R06.02 - Shortness of breath (4) Generalized weakness: Status: Acute Category: Medical Code(s): R53.1 - Weakness (5) NIGHAT (obstructive sleep apnea): Problem Comment: He has history of severe NIGHAT, nocturnal hypoxemia currently on ASV and O2 at night, ([facility]?sleep center, Dr. Stephani Delgado). Status: Chronic Category: Medical Code(s): G47.33 - Obstructive sleep apnea (adult) (pediatric) (6) Diabetes mellitus: Problem Comment: Poorly controlled, most recent A1CHb >10. 9 on 12/26/2022. Likely contributing factor for nocturia Status: Chronic Qualifiers: Diabetes mellitus complication status: without complication Diabetes mellitus [employer] oil [employer] insulin use: without jail use Diabetes mellitus type: type 2 Qualified Code(s): E11.9 - Type 2 diabetes mellitus without complications Category: Medical Code(s): E11.9 - Type 2 diabetes mellitus without complications (7) BPH (benign prostatic hyperplasia): Problem Comment: On Tamsulosin 0.4 mg po qhs. Status: Chronic Qualifiers: Lower urinary tract symptom presence: symptoms present Lower urinary tract symptom detail: nocturia Qualified Code(s): N40.1 - Benign prostatic hyperplasia with lower urinary tract symptoms; R35.1 - Nocturia Category: Medical Code(s): N40.0 - Benign prostatic hyperplasia without lower urinary tract symptoms (8) BMI greater than 30: Status: Chronic Category: Medical (9) Cough: Status: Acute Qualifiers: Cough type: acute Qualified Code(s): R05.1 - Acute cough Category: Medical Code(s): R05.9 - Cough, unspecified Plan This 88-year-old male presents with acute worsening of cough and shortness of breath in the setting of a positive influenza A infection and right-sided pulmonary infiltrates, raising suspicion for influenza pneumonia with possible secondary bacterial pneumonia versus CHF exacerbation. His NT-proBNP is significantly elevated, which may reflect volume overload, though clinical exam and imaging do not currently indicate overt pulmonary congestion. He has been started on antiviral therapy (Tamiflu) and empiric antibiotics (ceftriaxone and azithromycin) to cover for potential bacterial superinfection. Given his CHF history, no IV fluids were administered to prevent worsening pulmonary congestion. His oxygen saturation has improved from home baseline but will require continued respiratory monitoring. He remains hemodynamically stable with no signs of sepsis, though his mild metabolic acidosis and elevated lactate suggest some degree of hypoperfusion versus ongoing infectious/inflammatory response. Showing some improvement. Continues to require inpatient management tonight, anticipate discharge tomorrow. Working with therapy. Problems addressed as follows: Influenza A Pneumonia with Possible Secondary Bacterial Pneumonia Acute hypoxia -Wean oxygen as tolerated, goal sats greater 90%. Currently on 1 L. -Continue Tamiflu 75 mg twice daily for 5 days -Continue ceftriaxone 1 g daily and azithromycin 500 mg daily for 5 days -Sputum and blood culture still pending. -Full respiratory panel was positive for H1N1 flu -DuoNebs every 4 hours as needed Congestive Heart Failure (NT-proBNP 6660) -Continue diuresis. Responding well to diuretic. - Continue amiodarone 200 mg daily, Eliquis 5 mg twice daily, Lipitor 40 mg nightly, Bumex 1 mg daily, midodrine for hypotension 5 mg 3 times a day per home regimen. Continue tamsulosin 0.4 mg nightly for BPH Continue duloxetine 60 mg daily for mood Continue donepezil 5mg nightly for memory Diabetes Mellitus (Glucose 220, No DKA or HHS) -Continue sliding scale insulin and fingersticks ACHS. -Morning glucose 159 -A1c ordered and pending Mild Anemia (Hgb 11.6, Likely Chronic) -Hemoglobin stable this morning at 11. No active signs of bleeding. Transfusion threshold hemoglobin less than 7 Full code Cardiac diet Eliquis twice daily
[2024-10-22 16:23] LABS: POC Glucose,Bedside 200 (70-110)
--- NOTE | 2024-10-22 17:05 | PC.NURSE ---
pt resting supine in bed. pt has been up to the chair numerous times this shift. ambulates with standby assistance. purewick in place. pt requiring 1LNC to maintain sats >90%. tolerating diet well. fsbs 185 @ 1100 and 200 @ 1630. pt treated with ssi per nov. BP remains soft. pt asymptomatic. pt complained of headache with morning and was given tylenol per nov. no needs at this time. call light within reach.
[2024-10-22] MEDS: CEFTRIAXONE 1 GM 1 GM in 0.9 % SODIUM CHLORIDE 50 ML IV (20:19)
[2024-10-22] MEDS: ATORVASTATIN 40MG TABLET 40 MG PO (20:20)
[2024-10-22] MEDS: DONEPEZIL 5MG TAB 5 MG PO (20:20)
[2024-10-22] MEDS: TAMSULOSIN 0.4MG CAPSULE 0.4 MG PO (20:21)
[2024-10-22 20:35] LABS: POC Glucose,Bedside 208 (70-110)
[2024-10-23] VITALS (7 sets, daily range): BP systolic 109–152; BP diastolic 56–70; PULSE 60–93; RESP 18–20; TEMP 36.5–37.1; O2SAT 85–96; BMI 32.3
--- NOTE | 2024-10-23 03:24 | PC.NURSE ---
PT HAS RESTED WELL T/O THE SHIFT. ALERT AND ORIENTED X4. LUNG SOUNDS HAVE SCATTERED RHONCHI WITH FINE CRACKLES (RT BASE). ABDOMEN SOFT/NON TENDER WITH ACTIVE BOWEL SOUNDS. VSS. PURWICK IN PLACE. O2 SATURATION HAS MAINTAINED 92-95% ON 1 L NC. WILL CONTINUE TO MONITOR.
[2024-10-23 05:18] LABS: POC Glucose,Bedside 147 (70-110)
[2024-10-23 06:19] LABS: Basophils % 0.6 % (0.1-2.0); Eosinophils # 0.1 K/mm3 (0.0-0.4); Eosinophils % 2.8 % (0.1-12.0); Hematocrit 35.8 % (42.0-52.0); Hemoglobin 11.6 g/dL (14.1-18.0); Lymphocytes # 1.2 K/mm3 (0.7-4.5); Lymphocytes % 37.3 % (10-50); Mean Corpuscular HGB Conc 32.4 g/dL (31.8-35.4); Mean Corpuscular Hemoglobin 31.9 pg (27.0-31.2); Mean Corpuscular Volume 98.4 fl (80-94); Mean Platelet Volume 9.9 fl (7.4-10.4); Monocytes # 0.4 K/mm3 (0.1-1.0); Monocytes % 13.1 % (1.7-9.3); Neutrophils # 1.5 K/mm3 (1.8-7.8); Neutrophils % 45.9 % (37.0-80.0); Platelet Count 174 K/mm3 (142-424); Red Blood Count 3.64 M/mm3 (4.60-6.20); Red Cell Distribution Width 14.3 % (11.5-17.5); White Blood Count 3.3 K/mm3 (4.8-10.8)
[2024-10-23 06:22] LABS: Chloride 102 mmol/L (98-107); Sodium 137 mmol/L (136-145)
[2024-10-23 06:23] LABS: Potassium 4.1 mmoL/L (3.5-5.1)
[2024-10-23 06:25] LABS: Anion Gap 10.1 mEq/L (5-15); Blood Urea Nitrogen 32 mg/dl (9-20); Carbon Dioxide 29 mmol/L (22.0-30.0); Creatinine Clearance Estimated 90 mL/min (50-200); Estimated Glomerular Filt Rate 92 ml/min (>60); GFR (African American) 111 ML/MIN (>60)
[2024-10-23 06:26] LABS: Calcium 8.3 mg/dl (8.4-10.2); Glucose 156 mg/dl (74-100)
[2024-10-23] MEDS: IPRATROPIUM/ALBUTEROL 3 ML NEB IH ×2 (06:46→11:06)
[2024-10-23 07:49] LABS: Hemoglobin A1C 7.6 % (4.0-6.0)
[2024-10-23] MEDS: LORATADINE 10MG TABLET 10 MG PO (08:32)
[2024-10-23] MEDS: MIDODRINE HCL 5 MG TABLET PO ×2 (08:32→12:38)
[2024-10-23] MEDS: AZITHROMYCIN 250MG TABLET 250 MG PO (08:32)
[2024-10-23] MEDS: ASCORBIC ACID 500MG TAB 500 MG PO (08:32)
[2024-10-23] MEDS: DULOXETINE 30MG CAPSULE.DR 60 MG PO (08:32)
[2024-10-23] MEDS: OSELTAMIVIR 75MG CAPSULE 75 MG PO (08:32)
[2024-10-23] MEDS: AMIODARONE 200MG TABLET 200 MG PO (08:32)
[2024-10-23] MEDS: APIXABAN 5MG TABLET 5 MG PO (08:32)
[2024-10-23] MEDS: BUMETANIDE 1 MG TABLET PO (08:32)
--- NOTE | 2024-10-23 08:47 | EXP.DC.SUM ---
General Admission date:: 10/21/24 Discharge date: 10/23/24 HPI HPI HPI: The patient is an 88-year-old male with a past medical history of congestive heart failure (CHF), diabetes mellitus, coronary artery disease, BPH, mild cognitive impairment mild cognitive impairment, and obstructive sleep apnea (NIGHAT) on BiPAP who presents with two days of worsening productive cough and shortness of breath. His symptoms were initially mild but progressed to the point where he was having increased work of breathing at home with oxygen saturations in the high 80s on room air. EMS was activated, and upon arrival, he was found to have continued dyspnea with a persistent cough producing yellow sputum. He denies hemoptysis, chest pain, orthopnea, paroxysmal nocturnal dyspnea, or lower extremity swelling. Upon arrival at the emergency department, the patient was afebrile with a temperature of 99.9?F, hemodynamically stable, and saturating in the low 90s on room air. He was alert, oriented, and moving all extremities spontaneously. Physical examination revealed bilateral trace wheezes and right-sided crackles, raising concern for pneumonia versus volume overload in the setting of CHF. Initial laboratory results showed a WBC of 6.9, mild anemia (Hgb 11.6), mild renal impairment (BUN 25), and an elevated NT-proBNP of 6660, suggestive of possible CHF exacerbation. His COVID-19 PCR was negative, but influenza A PCR was detected. A chest X-ray was performed and interpreted independently, revealing right-sided infiltrates without evidence of overt pulmonary edema or cardiomegaly. Given his clinical presentation, imaging findings, and positive influenza A PCR, empiric treatment was initiated with ceftriaxone and azithromycin for possible bacterial pneumonia and Tamiflu for influenza. Given his CHF history and risk for volume overload, no IV fluids were administered at this time. Additional diagnostic testing, including sputum and blood cultures, venous blood gas (VBG), and metabolic workup, were obtained. His oxygen requirements remain stable on 2 L nasal cannula but will require close monitoring for any signs of respiratory decompensation. Hospital Course Hospital Course Hospital Course: This 88-year-old male presents with acute worsening of cough and shortness of breath in the setting of a positive influenza A infection and right-sided pulmonary infiltrates, raising suspicion for influenza pneumonia with possible secondary bacterial pneumonia versus CHF exacerbation. His NT-proBNP is significantly elevated, which may reflect volume overload, though clinical exam and imaging do not currently indicate overt pulmonary congestion. He has been started on antiviral therapy (Tamiflu) and empiric antibiotics (ceftriaxone and azithromycin) to cover for potential bacterial superinfection. Given his CHF history, no IV fluids were administered to prevent worsening pulmonary congestion. His oxygen saturation has improved from home baseline but will require continued respiratory monitoring. He remains hemodynamically stable with no signs of sepsis, though his mild metabolic acidosis and elevated lactate suggest some degree of hypoperfusion versus ongoing infectious/inflammatory response. Patient found to be flu positive. Initiated on antibiotics and Tamiflu. Showed good response. Weaned to 1 to 2 L on day of discharge. After much discussion, patient on oxygen at baseline at home that he wears intermittently. Given his clinical stability, transition to oral therapy, stable discharge home with continued management as an outpatient. Therapy evaluated, at baseline level of function. No need for home health or placement. Discharged in stable condition. Problems addressed as follows: Influenza A Pneumonia with Possible Secondary Bacterial Pneumonia Acute hypoxia -Patient with increased oxygen requirement on presentation of 2 L. Found to be flu positive. Chest imaging showing mild patchy airspace disease. Initiated on Tamiflu twice daily 75 mg. Will continue for total of 5 days. Initiated on ceftriaxone. Showing improvement with normalization of white count. Transition to cefdinir to complete 5 days of therapy. Oxygen requirement remained stable. Room air saturation of 85% at rest on day of discharge. Continue 2 L nasal cannula continuously. Tolerating p.o. intake. Afebrile. Overall given his improvement, stable to discharge home to complete therapy. Recommend close follow-up with PCP for further management Congestive Heart Failure (NT-proBNP 6660) - Responded well to diuretic. Continue Bumex 1 mg daily at discharge. Continue amiodarone 200 mg daily, Eliquis 5 mg twice daily, Lipitor 40 mg nightly, midodrine for hypotension 5 mg 3 times a day per home regimen. Continue tamsulosin 0.4 mg nightly for BPH Continue duloxetine 60 mg daily for mood Continue donepezil 5mg nightly for memory Diabetes Mellitus (Glucose 220, No DKA or HHS) -Continue sliding scale insulin and fingersticks ACHS during admission. A1c 7.6. Except for pain age and comorbid. Continue home regimen of 500 mg metformin twice daily. Morning glucoses around 150 during admission. Mild Anemia (Hgb 11.6, Likely Chronic) -Hemoglobin stable at 11 during admission. No signs of active bleeding. No need for transfusion during admission Room air saturation of 85% at rest on morning of discharge. Recommend continuous oxygen at 2 L via nasal cannula Total time spent on discharge 32 minutes in counseling, documentation, chart review, and direct care with patient. Exam Data for Last 24 hours Vital signs and Labs for Last 24 Hours: Temp Pulse Resp BP Pulse Ox O2 Del Method O2 Flow Rate 97.7 F 76 20 109/60 L 85 L Nasal Cannula 1 10/23/24 08:00 10/23/24 08:00 10/23/24 08:00 10/23/24 08:00 10/23/24 08:39 10/23/24 08:44 10/23/24 08:44 Laboratory Results - last 24 hr 10/22/24 11:04: POC Glucose 185 H 10/22/24 16:15: POC Glucose 200 H 10/22/24 20:23: POC Glucose 208 H 10/23/24 05:10: POC Glucose 147 H 10/23/24 05:45: WBC 3.3 L D, RBC 3.64 L, Hgb 11.6 L, Hct 35.8 L, MCV 98.4 H, MCH 31.9 H, MCHC 32.4, RDW 14.3, Plt Count 174, MPV 9.9, Neut % (Auto) 45.9, Lymph % (Auto) 37.3, Andrew % (Auto) 13.1 H, Eos % (Auto) 2.8, Baso % (Auto) 0.6, Neut # (Auto) 1.5 L, Lymph # (Auto) 1.2, Andrew # (Auto) 0.4, Eos # (Auto) 0.1, Baso # (Auto) 0.0, Sodium 137, Potassium 4.1, Chloride 102, Carbon Dioxide 29, Anion Gap 10.1, BUN 32 H, Creatinine 0.80, Estimated Creat Clear 90, Estimated GFR 92, Est GFR ( Amer) 111, Glucose 156 H, Hemoglobin A1c 7.6 H, Calcium 8.3 L I & O for Last 24 hours: Intake & Output 10/20/24 10/21/24 10/22/24 10/23/24 23:59 23:59 23:59 23:59 Intake Total 1130 / 1130 285 / 285 480 / 480 Output Total 1300 / 1800 2800 / 2800 1300 / 1300 Balance -170 / -670 -2515 / -2515 -820 / -820 Weight 123.887 kg 122.515 kg 120.338 kg Microbiology Reports for the Last 24 Hours: Microbiology 10/21/24 02:40 Blood Blood Culture - Preliminary NO GROWTH AFTER 48 HOURS 10/21/24 02:40 Blood Blood Culture - Preliminary NO GROWTH AFTER 48 HOURS 10/21/24 04:20 Sputum - Expectorated Sputum Gram Stain - Final 10/21/24 04:20 Sputum - Expectorated Sputum Sputum Culture - Final Constitutional Constitutional: no acute distress, obese, chronically ill appearing and cooperative *Routine HEENT Exam Head: Present normocephalic Eye: Present EOMI and PERRL ENT: Present mucous membranes moist *Routine Neck Exam Neck: Present supple; Absent lymphadenopathy *Routine Respiratory Exam Respiratory: Present prolonged expiratory phase, wheezes and normal respiratory effort; Absent rhonchi or crackles *Routine Cardiovascular Exam Cardiovascular: Present RRR *Routine Abdominal Exam Abdominal: Present soft and normoactive bowel sounds; Absent tenderness *Routine Rectal Exam Patient deferred: visual exam *Routine Exam Patient deferred: penile exam *Routine Extremities Exam Extremities: Present edema (trace); Absent cyanosis or clubbing *Routine Skin Exam Skin: Present intact and warm; Absent rash *Routine Neurological Exam Neurological: Present alert, oriented X3 and moving all extremities; Absent altered mental status Results Data Completed and Pending Labs on day of discharge: Labs from last 24 hours 10/23/24 10/23/24 10/22/24 05:45 05:10 20:23 WBC 3.3 L D RBC 3.64 L Hgb 11.6 L Hct 35.8 L MCV 98.4 H MCH 31.9 H MCHC 32.4 RDW 14.3 Plt Count 174 MPV 9.9 Neut % (Auto) 45.9 Lymph % (Auto) 37.3 Andrew % (Auto) 13.1 H Eos % (Auto) 2.8 Baso % (Auto) 0.6 Neut # (Auto) 1.5 L Lymph # (Auto) 1.2 Andrew # (Auto) 0.4 Eos # (Auto) 0.1 Baso # (Auto) 0.0 Sodium 137 Potassium 4.1 Chloride 102 Carbon Dioxide 29 Anion Gap 10.1 BUN 32 H Creatinine 0.80 Estimated Creat Clear 90 Estimated GFR 92 Est GFR ( Amer) 111 Glucose 156 H POC Glucose 147 H 208 H Hemoglobin A1c 7.6 H Calcium 8.3 L 10/22/24 10/22/24 16:15 11:04 WBC RBC Hgb Hct MCV MCH MCHC RDW Plt Count MPV Neut % (Auto) Lymph % (Auto) Andrew % (Auto) Eos % (Auto) Baso % (Auto) Neut # (Auto) Lymph # (Auto) Andrew # (Auto) Eos # (Auto) Baso # (Auto) Sodium Potassium Chloride Carbon Dioxide Anion Gap BUN Creatinine Estimated Creat Clear Estimated GFR Est GFR ( Amer) Glucose POC Glucose 200 H 185 H Hemoglobin A1c Calcium Preliminary micro results at discharge 10/21/24 02:40 Blood Culture - Preliminary Blood NO GROWTH AFTER 48 HOURS 10/21/24 02:40 Blood Culture - Preliminary Blood NO GROWTH AFTER 48 HOURS DS: Diagnosis Discharge Diagnosis (1) Pneumonia: Status: Acute Code(s): J18.9 - Pneumonia, unspecified organism Qualifiers: Pneumonia type: due to influenza A virus Qualified Code(s): J10.00 - Influenza due to other identified influenza virus with unspecified type of pneumonia (2) Influenza: Status: Acute Code(s): J11.1 - Influenza due to unidentified influenza virus with other respiratory manifestations (3) Shortness of breath: Status: Acute Code(s): R06.02 - Shortness of breath (4) Generalized weakness: Status: Acute Code(s): R53.1 - Weakness (5) NIGHAT (obstructive sleep apnea): Status: Chronic Code(s): G47.33 - Obstructive sleep apnea (adult) (pediatric) Problem details: He has history of severe NIGHAT, nocturnal hypoxemia currently on ASV and O2 at night, ([facility]?sleep center, Dr. Stephani Delgado). 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 9 on 12/26/2022. Likely contributing factor for nocturia (7) BPH (benign prostatic hyperplasia): Status: Chronic Code(s): N40.0 - Benign prostatic hyperplasia without lower urinary tract symptoms Qualifiers: Lower urinary tract symptom detail: nocturia Lower urinary tract symptom presence: symptoms present Qualified Code(s): N40.1 - Benign prostatic hyperplasia with lower urinary tract symptoms; R35.1 - Nocturia Problem details: On Tamsulosin 0.4 mg po qhs. (8) BMI greater than 30: Status: Chronic (9) Cough: Status: Acute Code(s): R05.9 - Cough, unspecified Qualifiers: Cough type: acute Qualified Code(s): R05.1 - Acute cough Meds Home Medications and Allergies Home Medications ?Medication ?Instructions ?Recorded ?Confirmed ?Type tamsulosin 0.4 mg capsule 0.4 mg PO HS 03/12/18 10/21/24 History duloxetine 60 mg capsule,delayed 60 mg PO DAILY 02/14/23 10/21/24 History release acetaminophen 500 mg tablet 500 mg PO Q6HP PRN Mild Pain 04/16/23 10/21/24 History (Tylenol Extra Strength) (Scale Score 1-4) ascorbic acid (vitamin C) 500 mg 1,000 mg PO DAILY 04/16/23 10/21/24 History capsule atorvastatin 40 mg tablet 40 mg PO DAILY 90 days #90 tabs 04/16/23 10/21/24 History cholecalciferol (vitamin D3) 125 125 mcg PO DAILY Supplement 04/16/23 10/21/24 History mcg (5,000 unit) capsule donepezil 5 mg tablet (Aricept) 5 mg PO HS 04/16/23 10/21/24 History amiodarone 200 mg tablet 200 mg PO DAILY 10/21/24 10/21/24 History apixaban 5 mg tablet (Eliquis) 5 mg PO BID 10/21/24 10/21/24 History metformin 1,000 mg tablet 500 mg PO BID 10/21/24 10/21/24 History midodrine 5 mg tablet 5 mg PO TID 10/21/24 10/21/24 History spironolactone 25 mg tablet 25 mg PO DAILY 10/21/24 10/21/24 History azithromycin 250 mg tablet 250 mg PO DAILY 2 days #2 tabs 10/23/24 Rx bumetanide 1 mg tablet 1 mg PO DAILY 30 days #30 tabs 10/23/24 Rx cefdinir 300 mg capsule 300 mg PO BID 3 days #6 caps 10/23/24 Rx oseltamivir 75 mg capsule (Tamiflu) 75 mg PO BID 3 days #5 caps 10/23/24 Rx New Prescriptions to Start Prescriptions: Eugenio Wright bumetanide Eugenio Omer cefdinir Eugenio Omer oseltamivir [Tamiflu] Eugenio Omer Allergies Allergy/AdvReac Type Severity Reaction Status Date / Time tetanus and diphtheria Allergy Intermediate I-HIVES Verified 05/14/24 13:26 toxoids (TETANUS & DIPHTHERIA TOXOIDS) Discharge Plan Disposition Patient Disposition: Home, Self-Care Condition: Fair Follow up Plan Follow up with: Stephen Chen MD [Primary Care Provider] - 10/28/24 4:30 pm Prescriptions/Medication Reconciliation: New azithromycin 250 mg Tablet 250 mg PO DAILY 2 Days Qty: 2 0RF oseltamivir [Tamiflu] 75 mg Capsule 75 mg PO BID 3 Days Qty: 5 0RF bumetanide 1 mg Tablet 1 mg PO DAILY 30 Days Qty: 30 0RF cefdinir 300 mg capsule 300 mg PO BID 3 Days Qty: 6 0RF Continued atorvastatin 40 mg tablet 40 mg PO DAILY 90 Days Qty: 90 Patient Comments: TAKE 1 TABLET BY MOUTH AT BEDTIME duloxetine 60 mg capsule,delayed release(DR/EC) 60 mg PO DAILY donepezil [Aricept] 5 mg tablet 5 mg PO HS acetaminophen [Tylenol Extra Strength] 500 mg tablet 500 mg PO Q6HP PRN (Reason: Mild Pain (Scale Score 1-4)) cholecalciferol (vitamin D3) 125 mcg (5,000 unit) capsule 125 mcg PO DAILY ascorbic acid (vitamin C) 500 mg capsule 1,000 mg PO DAILY tamsulosin 0.4 MG capsule 0.4 mg PO HS metformin 1,000 mg tablet 500 mg PO BID amiodarone 200 mg tablet 200 mg PO DAILY midodrine 5 mg tablet 5 mg PO TID spironolactone 25 mg tablet 25 mg PO DAILY Eliquis 5 mg tablet 5 mg PO BID Discontinued bumetanide 0.5 mg tablet 0.5 mg PO DAILY Other Ambulatory Orders: Home Medical Equipment (Routine) Location: None Selected Ordered By: Eugenio Omer Problem Reconciliation Problems Reviewed?: Yes Patient Discharge Instructions ACTIVITY: Continue current activity DIET: continue same diet Patient Instructions: Pneumonia--Adult, DI for Pneumonia -- Adult, DI for Influenza -- Adult, DI for Respiratory Failure Print Language: Stateless Providers Primary Care Provider: Stephen Chen Admit Provider: Eugenio Omer Attending Provider: Eugenio Omer
[2024-10-23 10:36] LABS: POC Glucose,Bedside 214 (70-110)
[2024-10-23] MEDS: humaLOG 100 UNITS/ML 10ML VIAL (SSI) SUBCUT (10:36)
[2024-10-23] MEDS: ACETAMINOPHEN 500MG TAB 1000 MG PO (10:52)
--- NOTE | 2024-10-23 15:14 | PC.NURSE ---
Called clinic pharmacy and son about patient's d/c. Left son a message.
== END 2024-10-23 16:56 | disposition home or self-care (01) ==
LOC: ER 02:44 → 2ND 03:51
PROVIDERS: Nurse Practitioner Family; Admitting Provider Internal Medicine Adolescent Medicine; Emergency Provider Emergency Medicine; PCP Family Medicine; Visit Provider Internal Medicine Adolescent Medicine
DX: J10.00 Influenza due to other identified influenza virus with unspecified type of pneumonia (principal); R09.02 Hypoxemia; I50.9 Heart failure, unspecified; E11.9 Type 2 diabetes mellitus without complications; N40.1 Benign prostatic hyperplasia with lower urinary tract symptoms; R35.1 Nocturia; I25.10 Atherosclerotic heart disease of native coronary artery without angina pectoris; G47.33 Obstructive sleep apnea (adult) (pediatric); D64.9 Anemia, unspecified; E87.21 Acute metabolic acidosis; E66.9 Obesity, unspecified; Z68.32 Body mass index [BMI] 32.0-32.9, adult; Z79.02 Long term (current) use of antithrombotics/antiplatelets; Z79.899 Other long term (current) drug therapy; Z79.84 Long term (current) use of oral hypoglycemic drugs
CPT/HCPCS: 36415; 71045; 80048; 80053; 82803; 82962; 83036; 83735; 83880; 85025; 86803; 87040; 87070; 87205; 87389; 87633; 87636; 93005; 94640; 94760; 94761; 97162; 97165; 99285; G0378; J0456; J0696; J3475; J7050; J7620

== ENCOUNTER 2024-11-17 12:40 | Emergency (ER) | payer MEDICARE, SELFPAY ==
[2024-11-17 12:45] VITALS: BP 156/89; PULSE 86; RESP 16; TEMP 36.7; O2SAT 97; BMI 32.8
--- NOTE | 2024-11-17 14:32 | ED_ITS ---
Discharge Plan Disposition Patient Disposition: Home, Self-Care Prescriptions Prescriptions: New acyclovir 800 mg tablet 800 mg PO 5XDAY Qty: 35 0RF No Action atorvastatin 40 mg tablet 40 mg PO DAILY 90 Days Qty: 90 Patient Comments: TAKE 1 TABLET BY MOUTH AT BEDTIME duloxetine 60 mg capsule,delayed release(DR/EC) 60 mg PO DAILY donepezil [Aricept] 5 mg tablet 5 mg PO HS acetaminophen [Tylenol Extra Strength] 500 mg tablet 500 mg PO Q6HP PRN (Reason: Mild Pain (Scale Score 1-4)) cholecalciferol (vitamin D3) 125 mcg (5,000 unit) capsule 125 mcg PO DAILY ascorbic acid (vitamin C) 500 mg capsule 1,000 mg PO DAILY tamsulosin 0.4 MG capsule 0.4 mg PO HS metformin 1,000 mg tablet 500 mg PO BID amiodarone 200 mg tablet 200 mg PO DAILY midodrine 5 mg tablet 5 mg PO TID spironolactone 25 mg tablet 25 mg PO DAILY Eliquis 5 mg tablet 5 mg PO BID azithromycin 250 mg Tablet 250 mg PO DAILY 2 Days Qty: 2 0RF oseltamivir [Tamiflu] 75 mg Capsule 75 mg PO BID 3 Days Qty: 5 0RF bumetanide 1 mg Tablet 1 mg PO DAILY 30 Days Qty: 30 0RF cefdinir 300 mg capsule 300 mg PO BID 3 Days Qty: 6 0RF Referrals Follow up/Referrals: Stephen Chen MD [Primary Care Provider] - See instructions Activity Restrictions/Add. Instructions Additional Instructions/Restrictions: At this time it was felt you are safe to be discharged home. If new or worsening symptoms please do not hesitate to return the emergency department. Please take your antivirals as prescribed. For pain please take Tylenol 1000 mg and ibuprofen 800 mg every 6 hours. Please follow-up with your family doctor later this week to ensure that your shingles is stable and possibly prescribing long-term gabapentin for nerve pain. Clinical Impressions Clinical Impression: Shingles Instructions Patient Instructions: DI for Skin Abscess Print Language Print Language: Pakistani Discharge ED Provider: Antwan Brian General Adult HPI General Chief complaint: Skin/Abscess/Foreign Body Stated complaint: itchy rash Time Seen by Provider: 11/17/24 14:01 Mode of Arrival: Ambulatory Source of Information: Patient Description of Symptoms (Recalled from ER Triage Doc. by RN): Reports possible shingles on right lower abdomen. Complaint of rash that hope. History of Present Illness HPI narrative: Patient is 88-year-old male who has never had shingles before presents emergency department for evaluation of rash on his abdomen. Onset was acute over the last few days. There is a burning sensation that wraps around his flank to his back. No exposures. No other acute complaints at this time. Please note that above description of symptoms, in this electronic medical record under categorization of recalled from ER triage doctor by RN are reflective of an initial nursing assessment, however, is not reflective of my full history and physical exam that was personally taken and clarified. Consequentially, this preceding description of symptoms, which may include the p atient's categorized chief complaint in the EMR, do not reflect my personal clinical impression, and the ultimate description of history of present illness and patient stated complaints should be deferred to this section of the note. Unless stated otherwise or congruent with this section of the note, additional signs, symptoms, or incongruence should be interpreted as inaccurate with my clinical impression. Related Data Home Medications ?Medication ?Instructions ?Recorded ?Confirmed tamsulosin 0.4 mg capsule 0.4 mg PO HS 03/12/18 10/21/24 duloxetine 60 mg capsule,delayed 60 mg PO DAILY 02/14/23 10/21/24 release acetaminophen 500 mg tablet 500 mg PO Q6HP PRN Mild Pain 04/16/23 10/21/24 (Tylenol Extra Strength) (Scale Score 1-4) ascorbic acid (vitamin C) 500 mg 1,000 mg PO DAILY 04/16/23 10/21/24 capsule atorvastatin 40 mg tablet 40 mg PO DAILY 90 days #90 tabs 04/16/23 10/21/24 cholecalciferol (vitamin D3) 125 125 mcg PO DAILY Supplement 04/16/23 10/21/24 mcg (5,000 unit) capsule donepezil 5 mg tablet (Aricept) 5 mg PO HS 04/16/23 10/21/24 amiodarone 200 mg tablet 200 mg PO DAILY 10/21/24 10/21/24 apixaban 5 mg tablet (Eliquis) 5 mg PO BID 10/21/24 10/21/24 metformin 1,000 mg tablet 500 mg PO BID 10/21/24 10/21/24 midodrine 5 mg tablet 5 mg PO TID 10/21/24 10/21/24 spironolactone 25 mg tablet 25 mg PO DAILY 10/21/24 10/21/24 Previous Rx's ?Medication ?Instructions ?Recorded azithromycin 250 mg tablet 250 mg PO DAILY 2 days #2 tabs 10/23/24 bumetanide 1 mg tablet 1 mg PO DAILY 30 days #30 tabs 10/23/24 cefdinir 300 mg capsule 300 mg PO BID 3 days #6 caps 10/23/24 oseltamivir 75 mg capsule (Tamiflu) 75 mg PO BID 3 days #5 caps 10/23/24 acyclovir 800 mg tablet 800 mg PO 5XDAY shingles #35 tabs 11/17/24 Allergies Allergy/AdvReac Type Severity Reaction Status Date / Time tetanus and diphtheria Allergy Intermediate I-HIVES Verified 05/14/24 13:26 toxoids (TETANUS & DIPHTHERIA TOXOIDS) [facility] Disclaimer: The information contained in this section may have been updated after the patient was seen, as this information can be updated by other users. Medical History Shortness of breath Hypertension High anion gap metabolic acidosis Cervicogenic headache Hearing loss Tinnitus of both ears Surgical History History of right hip replacement History of knee replacement Family History Other Unknown family medical history Social History Smoking Status: Never smoker alcohol intake: never substance use type: denies use current occupational status: retired Travel in the last 8 weeks: None housing: house lives independently: Yes marital status: current occupational exposures/hazards: No caffeine: Yes Have you lived/traveled outside [place] in past 30 days?: No Contact w/someone who lives/traveled outside [place] past 30 days?: No Exposure to someone with infectious disease in past 14 days?: No Do you have a fever (greater than 100.4 F or 38 C)?: No Have you tested positive for COVID-19: No Exposed to someone with COVID-19 in past 14 days?: No Do you have a sore throat?: No Do you have a cough?: No Do you have any weakness?: No Do you have any diarrhea?: No Are you experiencing any unusual bleeding?: No Do you have any muscle aches/pain?: No Do you have any abdominal pain?: No Are you experiencing loss of taste or smell?: No Other Medical History Have you received the Flu Vaccine for this season: No Have you received the Pneumonia Vaccine: No ROS Obtained: Yes Systems reviewed as appropriate & no additional complaints except as documented Physical Exam General General appearance: alert and in no apparent distress Head Head exam: atraumatic and normocephalic Eye Eye exam: Present PERRL ENT ENT exam: Present mucous membranes moist Neck Neck exam: Present normal inspection Chest Chest inspection: Present normal inspection and symmetric chest wall rise Respiratory Respiratory exam: Present normal lung sounds bilaterally; Absent respiratory distress Cardiovascular Cardiovascular exam: Present regular rate and normal rhythm Abdominal Exam Abdominal exam: Present soft and other (Clustered vesicular rash in various stages right of midline wrapping around to his back with surrounding areas of confluent erythema.); Absent tenderness Extremities Exam Extremities exam: Present normal inspection Neurological Exam Neurological exam: Present alert and oriented X3 Psychiatric Psychiatric exam: Present normal affect Skin Skin exam: Present warm and dry Medical Decision Making Medical Records Screening: Per USPSTF and CDC recommendations, given the prevalence of disease in our region, it is our hospital?s policy to screen for HIV and viral Hepatitis for a ll patients aged 18 and over and those with ongoing risk factors. Jose Antonio Inquiry Pt receiving controlled substance: No Vital Signs: 11/17/24 12:45 Temperature 98.0 F Temperature Source Oral Pulse Rate [Radial] 86 Respiratory Rate 16 Blood Pressure [Right Arm] 156/89 H Blood Pressure Mean [Right Arm] 111 Blood Pressure Source [Right Arm] Automatic Cuff Blood Pressure Position [Right Arm] Sitting 02 Sat by Pulse Oximetry 97 Oxygen Delivery Method Room Air Medical Decision Narrative: In summary patient is 88-year-old male past medical history described above who presents emergency department for evaluation of rash. Physical exam strongly consistent with shingles. Workup with labs and imaging was considered but will be deferred given how classic appearing it is. For this acyclovir will be administered and patient will be prescribed a full course of acyclovir. He has adequate kidney function so he can take Tylenol and ibuprofen for pain control. He will follow-up with family doctor later this week to ensure stability versus healing and need for prolonged gabapentin. Critical Care Critical Care Time Critical Care Time: No
[2024-11-17] MEDS: ACYCLOVIR 400MG TAB 800 MG PO (14:45)
[2024-11-17 15:21] VITALS: BP 136/78; PULSE 78; RESP 16; TEMP 36.7; O2SAT 99
== END 2024-11-17 15:21 | disposition home or self-care (01) ==
PROVIDERS: Emergency Provider Emergency Medicine; PCP Family Medicine
DX: B02.9 Zoster without complications (principal); R21 Rash and other nonspecific skin eruption
CPT/HCPCS: 99283

== ENCOUNTER 2025-01-11 06:53 | Observation (INO) | payer MEDICARE, SELFPAY ==
[2025-01-11] VITALS (9 sets, daily range): BP systolic 111–143; BP diastolic 54–102; PULSE 60–102; RESP 16–28; TEMP 36.5–37; O2SAT 94–99; BMI 32.0; BMI 33.8
--- NOTE | 2025-01-11 06:59 | ECG_ITS ---
APPROVED REPORT Exam: Resting ECG HR:92 bpm ECG Measurements Heart Rate 92 AXES WY 243 P 70 QRSd 150 QRS -31 QT 393 T 100 QTc 442 Conclusion SINUS RHYTHM WITH FIRST DEGREE AV BLOCK WITH OCCASIONAL VENTRICULAR PREMATURE COMPLEXES LEFT AXIS DEVIATION [QRS AXIS < -30] LEFT BUNDLE BRANCH BLOCK [120+ ms QRS DURATION, 80+ ms Q/S IN V1/V2, 85+ ms R IN I/aVL/V5/V6] ABNORMAL ECG UNCONFIRMED REPORT Electronically signed by : PRECIOUS FRANCO, 01/12/2025 03:48:01
--- NOTE | 2025-01-11 07:01 | XR_ITS ---
PROCEDURE INFORMATION: Exam: XR Chest Exam date and time: 01/11/2025 7:15 AM Age: 89 years old Clinical indication: Shortness of breath; Additional info: SOB x 14 days TECHNIQUE: Imaging protocol: Radiologic exam of the chest. Views: 1 view. COMPARISON: CR XR CHEST PORTABLE 10/21/2024 2:47 AM FINDINGS: Lungs: There is mild pulmonary vascular congestion/edema. Streaky airspace opacities in lower lobes could be attributed to atelectasis versus developing pneumonia/aspiration in the appropriate clinical context. Pleural spaces: Unremarkable. No pleural effusion. No pneumothorax. Heart/Mediastinum: Cardiomegaly noted. Bones/joints: Status post right shoulder arthroplasty. IMPRESSION: 1. There is mild pulmonary vascular congestion/edema. 2. Streaky airspace opacities in lower lobes could be attributed to atelectasis versus developing pneumonia/aspiration in the appropriate clinical context.
--- OUTSIDE RECORDS SUMMARY | 2025-01-11 07:04 | XMS_ITS | Data Portability ---
Author Organization SUJIT EMMETT [facility] Address [address] [place] [address] [address] [place] [address] Care Team Providers Care Commercial Real Estate Manager Name Role Phone LEE WASHINGTON Referring Provider [phone] Assessment No assessment recorded. Plan of Treatment Reminders Order Date Submit Date Provider Last Modified By Organization Details Last Modified Time Details Appointments None recorded. Lab None recorded. Referral None recorded. Procedures None recorded. Surgeries None recorded. Imaging None recorded. Medication Orders ipratropiu m bromide 42 mcg (0.06 %) nasal spray 2020 021 [facility], [address] [place] [address], [address], 17:06:13 Patient TargetsNo targets recorded. Patient Instructions Encounter Date Encounter Id Patient Instructions Last Modified By Organization Details Last Modified Time 01/07/2021 [id number] 1. Audiogram performed in office today - 2. RX: Ipratropium Prospect nasal spray; 2 sprays in each nostril up to 3 times a day. 3. Discontinue Flonase nasal spray. 4. Recommended auto-inflating his ears on a regular basis. 5. Hearing aid evaluation recommended; son reported he ordered some hearing aids online that has yet to come in. Recommended trying those. 6. Follow up as needed. [email or web address] Not available 01/07/2021 14:49:08 terrible baselin e hearing along with chronic rhinitis and ETD; hightly recommend hearing aids and son is working on that; will start atrovent up to three times per day and work on autoinsufflating ears; will contact us if further trouble [email or web address] Not available 01/07/2021 14:51:22 Reason for Referral None Reported. Results Created Date Observation Date Name Description Value Unit Range Abnormal Flag Note LastModifiedBy Organization Detail LastModifiedTime 05/05/20 20 05/05/2020 elect romyo gram + nerve condu ction study No observ ation record ed. [email or web address] Not Available 2019 09:12:14 01/11/20 21 01/07/2021 audio gram No observ ation record ed. BARCODE Not Available 2020 09:22:02 Result Notes None recorded. 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 Procedures Surgical History Date Name Laterality Status Provider Name and Address Organization Details Recorded Time 01/08/20 21 Tympanogram completed NILSA RUBALCAVA [address]UD [address] [place], [address], [facility] 01/07/2021 14:37:28 01/08/20 Audiogram completed NILSA RUBALCAVA AUD [address] [place], [address], [facility] 01/07/2021 14:37:26 05/05/20 20 Electromyography (EMG) with Nerve Conduction Study (NCV) completed Richa Dietz (Nicky) [facility] 05/05/2020 16:02:13 Knee arthroscopy/surgery completed Re Dai [facility] 01/07/2021 13:48:20 Appendectomy completed Re Dai [facility] 01/07/2021 13:48:32 Back Surgery completed Re [facility] 01/07/2021 13:48:38 procedure on kidney completed Hayley stoddard [facility] 01/07/2021 13:55:12 procedure on shoulder completed Re [facility] 01/07/2021 13:57:17 Imaging Results Imaging Date Name Status LastModified by Organization Details LastModified Time 05/05/2020 electromyogram + nerve conduction study [email or web address] Information not available 05/06/2020 09:12:14 01/07/2021 audiogram completed [facility] Information no t available 01/10/2021 09:22:02 Procedure Notes None recorded. Medical Equipment None Reported. Allergies Allergen ID Allergen Name Allergen Category Reaction Reaction Severity Criticality Documentation Date Start Date Code Code System Note Provider Name and Address Organization Details Recorded Time 175204 Tetanus Toxoid medicatio n Not available Not available Not available 08/11/20162013 02440 UNK Comme nt: Shane ed By: Vi salazar Date: 014 4:40: 19 PM; Re Dai [facility] 13:41:33 Medications Name Sig Start Date Stop Date Status Note LastModified by Organization Details LastModified Time Flomax 0.4 mg capsule Take 1 capsule every day by oral route. active Not Available Not Available No t Available buspirone 5 mg tablet active Not Available Not Available Not Available clindamyc in HCl 300 mg capsule 01/07 completed Not Available Not Available Not Available Lasix 40 mg tablet Daily 01/07 completed Duration : 30 days;Paresh quency: daily;Al t Frequenc y: as direct.; Medicati on Descript ion: furosemi de; Dosage:1 ; Route:or al; refills: 5; Quantity :30 tablet Not Available Not Available Not Available sertralin e 100 mg tablet active Not Available Not Available Not Available prednison e 5 mg tablet TAKE 3 TABS NOW, THEN TAKE 2 TABS EVERY AM FOR 6 DAYS, THEN 1 TABLET EVERY MORNING - TAKE WITH FOOD 01/07 completed Not Available Not Available Not Available glipizide ER 5 mg tablet, extended release 24 hr 01/07 completed Not Available Not Available Not Available Glucophag e 1,000 mg tablet Two times a day 01/07 completed Duration : 30 days;Paresh quency: bid;Medi cation Descript ion: metformi n; Dosage:1 ; Route:or al; refills: 0; Quantity :60 tablet Not Available Not Available Not Available sulfameth oxazole 800 mg-trimet hoprim 160 mg tablet TAKE 1 TABLET BY MOUTH TWICE A DAY FOR 10 DAYS active Not Available Not Available No t Available omeprazol e 40 mg capsule,d elayed release TAKE 1 CAPSULE BY MOUTH EVERY DAY FOR STOMACH 01/07 completed Not Available Not Available Not Available Mobic 15 mg tablet Daily 01/07 completed Frequenc y: daily;Me dication Descript ion: meloxica m; Dosage:1 ; Route:or al; refills: 5; Quantity :30 tablet Not Available Not Available Not Available Lipitor 40 mg tablet Take 1 tablet every day by oral route. active Not Available Not Available No t Available meclizine 25 mg tablet Three times a day 01/07 completed Duration : 30 days;Paresh quency: tid;Alt Frequenc y: prn;Medi cation Descript ion: meclizin e; Dosage:1 ; Route:or al; refills: 2; Quantity :90 tablet Not Available Not Available Not Available Lasix 20 mg tablet Take 1 tablet every day by oral route. active Not Available Not Available No t Available cephalexi n 500 mg capsule TAKE 1 TABLET BY MOUTH FOUR TIMES DAILY 01/07 completed Not Available Not Available Not Available ibuprofen 400 mg tablet TAKE 1 TABLET EVERY 8 HRS NEEDED PAIN , FOR POST OP PAIN 01/07 completed Not Available Not Available Not Available Aricept 5 mg tablet Take 1 tablet every day by oral route. active Not Available Not Available No t Available mupirocin 2 % topical ointment 01/07 completed Not Available Not Available Not Available methylpre dnisolone 4 mg tablets in a dose pack 01/07 completed Not Available Not Available Not Available ipratropi um bromide 42 mcg (0.06 %) nasal spray [place] 2 sprays 3 times a day by intranas al route. 2020 active Not Available Not Available Not Avai lable ipratropi um bromide 21 mcg (0.03 %) nasal spray 01/07 completed Not Available Not Available Not Available glipizide 5 mg tablet TAKE 1 TABLET EVERY MORNING AND TAKE 1/2 TABLET IN THE EVENING 01/07 completed Not Available Not Available Not Available K-Tab 10 mEq tablet,ex tended release Two times a day 01/07 completed Duration : 10 days;Paresh quency: bid;Medi cation Descript ion: potassiu m chloride ; Route:or al; refills: 0; Quantity :60 tablet, extended release Not Available Not Available Not Available Liz-Con M20 mEq tablet,ex tended release active Not Available Not Available Not Available duloxetin e 30 mg capsule,d elayed release 01/07 completed Not Available Not Available Not Available docusate sodium 01/07 completed Medicati on Descript ion: docusate ; refills: 0 Not Available Not Available Not Available potassium chloride Daily 01/07 completed Frequenc y: daily;Me dication Descript ion: potassiu m chloride ; Dosage:1 ; refills: 5; Quantity :30 Not Available Not Available Not Available Aleve Every eight hours 01/07 completed Duration : 1 day;Freq uency: q8h;Medi cation Descript ion: naproxen ; Route:or al; refills: 0; Quantity :3 Not Available Not Available Not Available Paxil 01/07 completed Medicati on Descript ion: paroxeti ne; Route:or al; refills: 0 Not Available Not Available Not Available Cephalexi n Monohydra te 01/07 completed Medicati on Descript ion: cephalex in; Route:or al; refills: 0 Not Available Not Available Not Available multivita min 01/07 completed Medicati on Descript ion: multivit marcus; refills: 0 Not Available Not Available Not Available Ranexa 500 mg tablet,ex tended release Take 1 tablet twice a day by oral route. active Not Available Not Available No t Available Januvia 100 mg tablet 01/07 completed Not Available Not Available Not Available levocetir izine 5 mg tablet 1 TABLET IN THE EVENING ONCE A DAY FOR HAYFEVER NEEDED active Not Available Not Available No t Available K-Tab 20 mEq tablet,ex tended release Take 1 tablet every day by oral route. active Not Available Not Available No t Available Dupixent 300 mg/2 mL subcutane ous pen injector Inject by subcutan eous route. active Not Available Not Available No t Available Vitals Date Recorded Body temperature Provider Name a nd Address Organization Details Last Updated DateTime 01/07/2021 97.1 [degF] Re Dai [facility] 01/07/2021 13:40:55 Social History Question Answer Notes LastModified by Organizat ion Details LastModified Time Tobacco Smoking Status Never Smoker Re Dai null, [facility] 01/07/2021 13:48:06 What Is Your Level Of Alcohol Consumption? None [email or web address] Information not available 01/07/2021 How Much Tobacco Do You Chew? None [email or web address] Information not available 01/07/2021 Sex: Unknown Functional Status None recorded. Mental Status None recorded. Family History Relationship Description Onset Age of this Age Resolved Age Notes LastModified by Organization Details LastModified Time Brother Hearing loss [email or web address] Not av ailable 01/07/2021 13:47:40 Brother Hypertensive disorder [email or web address] Not available 01/07 13:47:51 Brother Diabetes mellitus [email or web address] Not available 01/07 13:47:59 Mother Hypertensive disorder [email or web address] Not available 01/07 13:47:51 Mother Diabetes mellitus [email or web address] Not available 01/07 13:47:59 Medical History Condition Response Depression Y Anxiety Disorder Y Arthritis Y Acid Reflux (GERD) Y Cancer Y Ulcers Y Sleep Disorder Hypertension Y Past Encounters Encounter ID Performer Location Encounter Start Date Encounter Closed Date Diagnosis/Indication Diagnosis SNOMED-CT Code Diagnosis ICD10 Code Diagnosis Note [id number] [place] [address] 12/21/2016 05:45:28 12/21/2016 05:45:28 [id number] Chaudhry (Nicky) [place] [facility] [address] [place] [address] 05/05/2020 14:34:02 05/05/2020 16:08:04 Brachial plexopathy of right upper limb 1097430719 9667040 G54.0 Cervical radiculopathy 18393709 M54.12 Diabetic p eripheral neuropathy 374625597 E11.40 Bilateral carpal tunnel syndrome 2811745085 9221737 G56.03 Ulnar neur opathy of left arm 3373105898 09350 G56.22 [id number] MD SUJIT MARTELL [facility] [address] [place] [address] 01/07/2021 13:08:53 01/07/2021 14:57:07 Dysfunction of bilateral eustachian tubes 9690584958 304255 H69.93 Sensorineu ral hearing loss of bilateral ears 710889988 H90.3 - Moderate to profound SNHL, right > left with 36% WDS on the right and 60% WDS on the left - 01/07/2021 Exposed to noise 9655547 W42.9XXA - 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 - 01/07/2021 Posterior rhinorrhea 758 07017 R09.82 Deviated nasal septum 12 8637555 J34.2 Hypertroph y of nasal turbinates 61541430 J34.3 Vasomotor rhinitis 09089 03 J30.0 - Ipratropiu m Prospect nasal spray prescribed - 01/07/2021 [id number] NILSA RUBALCAVA, [facility] [place] [facility] [address] [place] [address] 01/07/2021 14:37:10 01/07/2021 14:38:57 Sensorineural hearing loss of bilateral ears 232788267 H90.3 Otalgia 54299500 H92.03 Health Concerns Section Related Observation LastModified by Organization Detai ls LastModified Time None Recorded Concern Status LastModified by Organization Details LastModified Time None Recorded Advance Directives Directive None Recorded Payers Encounter Date Sequence Insurance Name Policy Number Policy Whitaker Covered Member ID Whitaker Member ID Guarantor Name 05/05/2020 1 [facility] (MEDICARE REPLACEMENT/ ADVANTAGE - PPO) [id number] Steve King [id number] Steve King 01/07/2021 1 [facility] (MEDICARE REPLACEMENT/ ADVANTAGE - PPO) [id number] Steve King [id number] Steve King 01/07/2021 2 [employer] (MEDICARE SUPPLEMENT) Steve King [id number] Steve King 01/07/2021 1 [employer] (MEDICARE REPLACEMENT/ ADVANTAGE - PPO) [id number] Steve King [id number] Steve King 01/07/2021 2 [employer] (MEDICARE SUPPLEMENT) Steve King [id number] Steve Bell Fernando Notes Date Note Type Note Provider Name and Address Organization Details Recorded Time 01/07/2021 text/html Steve is an 85 year old who comes in today for consultation at the request of Dr. Lee Washington for an evaluation of ears. He's accompanied by his son today. He was sent to us by his PCP for having fluid in his ears and having persistent post nasal drainage. Son reports he complains of feeling like he has fluid in his ears when he moves his head from side to side. Last 2-3 times he was seen he was told he had fluid in his ears. His son reports he is very hard of hearing. He has tried hearing aids in the past but did not find it helpful so he does not use them. He has tried 2 different pairs in the past and spent a lot of money on them but reports they could not program it to work better. He no longer has these hearing aids. 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 VIC BUSTOS MD [facility] [place], [address], [facility] 01/07/2021 14:51:59
--- OUTSIDE RECORDS SUMMARY | 2025-01-11 07:04 | XMS_ITS | Continuity of Care Document ---
Author Organization [facility]. If a dditional information is needed, contact Health Information Management at [phone] Address [address] [place] [address] Phone Care Team Providers Care Field Aide Name Role Phone Unavailable Unavailable Unavailable Unavailable Unavailable Unavailable Problems Altered behavior Onset:12-Mar-2018 Ashwin Flynn Status:Acute Functional Status Functional finding 19-Mar-2018 Functional finding 17-Mar-2018 Functional finding 17-Mar-2018 Functional finding 17-Mar-2018 Allergies and Adverse Reactions Tetanus&Diphtheria Toxoid(Al lergy) Onset: 12-Mar-2018 Reaction:Rash-Hives Medications sertraline 50 MG Oral Tablet ;50 MG ORAL Daily Start:18-Mar-2018 Comments:50 mg PO DAILY Tolterodine Tartrate ER;4 MG ORAL Daily Start:18-Mar-2018 Comments:4 mg PO DAILY celecoxib;200 MG ORAL Daily Start:18-Mar-2018 Comments:200 mg PO DAILY sitagliptin 100 mg tablet;10 0 MG ORAL Daily Start:18-Mar-2018 Comments:100 mg PO DAILY furosemide 20 mg tablet;20 M G ORAL Daily Start:18-Mar-2018 Comments:20 mg PO DAILY glyBURIDE 5 MG Oral Tablet;5 MG ORAL Daily Start:18-Mar-2018 Comments:5 mg PO DAILY simethicone 80 MG Chewable T ablet;80 MG ORAL Daily Start:18-Mar-2018 Comments:80 mg PO DAILY Glucophage;500 MG ORAL Two T imes a Day Start:18-Mar-2018 Comments:500 mg PO BID gabapentin 400 MG Oral Capsu le [Neurontin];400 MG ORAL Two Times a Day Start:18-Mar-2018 Comments:400 mg PO BID buspirone 5 mg tablet;5 MG O RAL Three Times a Day Start:18-Mar-2018 Comments:5 mg PO TID tamsulosin hydrochloride 0.4 MG Oral Capsule [Flomax];1 TAB ORAL Daily Start:18-Mar-2018 Comments:1 tab PO DAILY potassium chloride 10 MEQ Ex tended Release Oral Tablet [K-Tab];20 MEQ ORAL Daily Start:18-Mar-2018 Comments:20 mEq PO DAILY celecoxib;200 MG ORAL Daily Start:12-Mar-2018 Status:Aborted Comments:200 mg PO DAILY sertraline 25 MG Oral Tablet ;25 MG ORAL Daily Start:12-Mar-2018 Status:Aborted Comments:25 mg PO DAILY Tolterodine Tartrate ER;4 MG ORAL Daily Start:12-Mar-2018 Status:Aborted Comments:4 mg PO DAILY sitagliptin 100 mg tablet;10 0 MG ORAL Daily Start:12-Mar-2018 Status:Aborted Comments:100 mg PO DAILY glyBURIDE 5 MG Oral Tablet;5 MG ORAL Daily Start:12-Mar-2018 Status:Aborted Comments:5 mg PO DAILY amoxicillin;500 MG ORAL Thre e Times a Day Start:12-Mar-2018 Status:Aborted Comments:500 mg PO TID Bicarsim;80 MG ORAL Four Dada es a Day Start:12-Mar-2018 Status:Aborted Comments:80 mg PO QID pravastatin sodium;80 MG ORA L Daily Start:06-Sep-2015 Status:Aborted Comments:80 mg PO DAILY meclizine 25 mg chewable tab let;25 MG ORAL Daily Start:06-Sep-2015 Status:Aborted Comments:25 mg PO DAILY cephalexin;500 MG ORAL Daily Start:06-Sep-2015 Status:Aborted Comments:500 mg PO DAILY Zestril;2.5 MG ORAL Daily Start:06-Sep-2015 Status:Aborted Comments:2.5 mg PO DAILY Glucophage;500 MG ORAL Two T imes a Day Start:06-Sep-2015 Status:Aborted Comments:500 mg PO BID furosemide 20 mg tablet;20 M G ORAL Daily Start:06-Sep-2015 Status:Aborted Comments:20 mg PO DAILY tamsulosin hydrochloride 0.4 MG Oral Capsule [Flomax];1 TAB ORAL Daily Start:06-Sep-2015 Status:Aborted Comments:1 tab PO DAILY potassium chloride 10 MEQ Ex tended Release Oral Tablet [K-Tab];10 MEQ ORAL Daily Start:06-Sep-2015 Status:Aborted Comments:10 mEq PO DAILY Social History Smoking Status Never smoked tobacco Recorded: 19-Mar-2018
--- OUTSIDE RECORDS SUMMARY | 2025-01-11 07:04 | XMS_ITS | Data Portability ---
Author Organization [facility] ADMIN Address [address] [place] [phone] Assessment No assessment recorded. Plan of Treatment Reminders Order Date Submit Date Provider Last Modified By Organization Details Last Modified Time Details Appointments OV EST 15 2024 10:45A Bhumi Bonner M.D Not available Not available Not available Lab urinalysi s, dipstick [address] [facility], [address] [place] [address], [phone], 01/17/2023 12:56:48 culture, urine [address] (Lab Registration) , [address] [place] [address], [address], 11/16/2022 07:13:46 urinalysi s, microscop ic [address] [facility], [address] [place] [address], [address], 11/16/2022 07:13:46 Referral None recorded. Procedures bladder scan (PROC) [address] [facility], [address] [place] [address], [address], 11/16/2022 07:13:46 Surgeries None recorded. Imaging None recorded. Medication Orders finasteri de 5 mg tablet [address] [facility], [address] [place], [address], 12/02/2022 12:11:27 Patient TargetsNo targets recorded. Patient InstructionsNo instructions recorded. Reason for Referral None Reported. Results Created Date Observation Date Name Description Value Unit Range Abnormal Flag Note LastModifiedBy Organization Detail LastModifiedTime 11/16/19 23 11/15/2022 CULTU RE URINE W PRESU MP ID results RKM 11-16 1307 No Signi fican t Growt h at 1 Day [facility] 11-17 [address] [place] te:1 70,00 0 Colon y Count Gram Negat mingo Rods [facility] 11-17 [address] [place] te:2 >100, 000 Colon y Count Enter ococc us Not Available [facility] (Pre[facility]Op [facility]) [address] [place] [address] [place], [address], 11/17/2022 07:16:35 11/16/1911/15/2022 CULTU RE URINE W PRESU MP ID note Unles s other snyder noted testi ng perfo rmed at: [facility] [address] [place] [address] Brijesh flores MD Not Available [facility] (Pre[facility]Op [facility]) [address] [place] [address] [place], [address], 11/17/2022 07:16:35 11/16/19 23 11/15/2022 CULTU RE URINE W PRESU MP ID culur ===== ===== ===== ===== ===== ===== ===== ===== ===== ===== ===== ===== ===== ===== ===== ===== ===== ===== ===== ===== ===== ===== ===== ===== CULTU RE NO.: [id number] Exam Statu s: Final Exam Type: CULTU RE URINE W PRESU ===== ===== ===== ===== ===== ===== ===== ===== ===== ===== ===== ===== ===== ===== ===== ===== ===== ===== ===== ===== ===== ===== ===== ===== Cultu re Repor t: Organ ism #01 Citro bacte r freun dii (CITF RE) Organ ism #02 Enter ococc us faeca lis (ENTC FAA) Antib iotic s CITFR E ENTCF AA Achie vable Achie vable () () Dosag e Serum Level Urine Level mcg/m l mcg/m l Amika danelle <=8 S 007A Ampic illin >16 R 2 S Ampic illin /Sulb actam >1 6/8 R 007A Cefaz shanika >16 R 007A Cefep axel <=1 S 007A Cefta zidim e >16 R 007A Ceftr iaxon e 32 R 007A Cipro floxa danelle 2 R 007A CARBR S 007A Dapto mycin <=1 S Ertap enem <=0.2 5 S 007A Genta micin >8 R 007A Genta micin -Syn >500 R Levof loxac in 2 R <=1 S Linez olid <=1 S Merop enem <=0.5 S 007A Nitro furan toin 32 S <=16 S Penic illin G 4 S Piper acill in/Ta zobac 32/4 I 007A Strep tomyc in-Sy n <=100 0 S Tetra cycli ne >8 R >8 R Tobra mycin 4 S 007A Trime thopr im/Crum lfame 10/05 S 007A Vanco mycin 1 S RKM 11-16 1307 No Signi fican t Growt h at 1 Day [facility] 11-17 714 [place] te:1 70,00 0 Colon y Count Gram Negat mingo Rods [facility] 11-17 715 [place] te:2 >100, 000 Colon y Count Enter ococc us Not Available [facility] ([facility]Op [facility]) [address] [place] [address] [place], [address], 11/18/2022 06:54:36 11/16/19 23 11/15/2022 CULTU RE URINE W PRESU MP ID note Unles s other snyder noted testi ng perfo rmed at: [facility] [address] [place] [address] Brijesh flores MD Not Available [facility] ([facility]Op [facility]) [address] [place] [address] [place], [address], 11/18/2022 06:54:36 11/16/19 23 11/15/2022 urina lysis , micro scopi c GLUCOSE negati ve Not Available [facility] [address] [place] [address], [address], 11/15/2022 15:33:11 11/16/19 23 11/15/2022 urina lysis , micro scopi c BILIRUBIN negati ve Not Available [facility] [address] [place] [address], [address], 11/15/2022 15:33:11 11/16/19 23 11/15/2022 urina lysis , micro scopi c KETONE negati ve Not Available [facility] [address] [place] [address], [address], 11/15/2022 15:33:11 11/16/19 23 11/15/2022 urina lysis , micro scopi c SPECIFIC GRAVITY 1.025 Not Available [facility] [address] [place] [address], [address], 11/15/2022 15:33:11 11/16/19 23 11/15/2022 urina lysis , micro scopi c BLOOD Negati ve Not Available [facility] [address] [place] [address], [address], 11/15/2022 15:33:11 11/16/19 23 11/15/2022 urina lysis , micro scopi c pH 6.5 Not Available [facility] [address] [place], [address], 11/15/2022 15:33:11 11/16/19 23 11/15/2022 urina lysis , micro scopi c PROTEIN Negati ve Not Available [facility] [address] [place], [address], 11/15/2022 15:33:11 11/16/19 23 11/15/2022 urina lysis , micro scopi c UROBILINOGEN 1 Not Available [facility] [address] [place] [address], [address], 11/15/2022 15:33:11 11/16/19 23 11/15/2022 urina lysis , micro scopi c NITRITE negati ve Not Available [facility] [address] [place] [address], [address], 11/15/2022 15:33:11 11/16/19 23 11/15/2022 urina lysis , micro scopi c LEUKOCYTES Negati ve Not Available [facility] [address] [place] [address], [address], 11/15/2022 15:33:11 11/16/19 23 11/15/2022 urina lysis , micro scopi c COLOR Yellow Not Available [facility] [address] [place] [address], [address], 11/15/2022 15:33:11 11/16/19 23 11/15/2022 urina lysis , micro scopi c CHARACTER negati ve Not Available [facility] [address] [place] [address], [address], 11/15/2022 15:33:11 0311/15/2022 urina lysis , micro scopi c WBC negati ve Not Available [facility] [address] [place] [address], [address], 11/15/2022 15:33:11 11/16/19 23 11/15/2022 urina lysis , micro scopi c RBC negati ve Not Available [facility] [address] [place] [address], [address], 11/15/2022 15:33:11 11/16/19 23 11/15/2022 urina lysis , micro scopi c EP CELL negati ve Not Available [address], [address], 11/15/2022 15:33:11 11/16/19 23 11/15/2022 urina lysis , micro scopi c BACTERIA negati ve Not Available [address], [address], 11/15/2022 15:33:11 11/16/19 23 11/15/2022 urina lysis , micro scopi c YEAST negati ve Not Available [address], [address], 11/15/2022 15:33:11 11/16/19 23 11/15/2022 urina lysis , micro scopi c MUCUS negati ve Not Available [address], [address], 11/15/2022 15:33:11 11/16/19 23 11/15/2022 bladd er scan (PROC ) Calculated Residual Urine: 17ml Not Available [facility] [address] [place] [address], [address], 11/15/2022 14:44:51 01/18/20 23 01/17/2023 urina lysis , dipst ick Leukocytes (reference range) negati ve Not Available [facility] [address] [place] [address], [address], 01/17/2023 12:50:49 01/18/20 23 01/17/2023 urina lysis , dipst ick Nitrite (reference range:) negati ve Not Available [address], [address], 01/17/2023 12:50:49 01/18/20 23 01/17/2023 urina lysis , dipst ick Urobilinogen (reference range) 0.2 Not Available [address], [address], 01/17/2023 12:50:49 01/18/20 23 01/17/2023 urina lysis , dipst ick Protein (reference range) negati ve Not Available [address], [address], 01/17/2023 12:50:49 01/18/20 23 01/17/2023 urina lysis , dipst ick pH (reference range 5-8.5) 6.0 Not Available [address], [address], 01/17/2023 12:50:49 01/18/20 23 01/17/2023 urina lysis , dipst ick Blood (reference range:) negati ve Not Available [facility] [address] [place] [address], [address], 01/17/2023 12:50:49 01/18/2001/17/2023 urina lysis , dipst ick Specific [place] (reference range) 1.020 Not Available [address], [address], 01/17/2023 12:50:49 0501/17/2023 urina lysis , dipst ick Ketone (reference range) negati ve Not Available [facility] [address] [place] [address], [address], 01/17/2023 12:50:49 01/18/2001/17/2023 urina lysis , dipst ick Bilirubin (reference range) negati ve Not Available [address], [address], 01/17/2023 12:50:49 01/18/2001/17/2023 urina lysis , dipst ick Glucose (reference range) 100 Not Available [address], [address], 01/17/2023 12:50:49 01/18/2001/17/2023 urina lysis , dipst ick Color (reference range: yellow-brown ) Yellow Not Available [address], [address], 01/17/2023 12:50:49 Result Notes None recorded. Problems Name Problem SNOMED Code Status Onset Date Resolution Date Notes Provider Name and Address Organization Details Recorded Time Prostate nodule 8640877385703 09 Active 2022 SUJIT Hughes [facility] [place] 14:42:57 Urinary incontinenc e 732260381 Active 2022 SUJIT Hughes [facility] [place] 14:43:41 Benign prostatic hyperplasia 059040234 Active 2022 SUJIT Hughes [facility] [place] 14:43:58 Problem Notes None recorded. Procedures Surgical History Date Name Laterality Status Provider Name and Address Organization Details Recorded Time Prostate Surgery completed Malena GRAY [facility] [place] 11/15/2022 14:44:37 Imaging Results None recorded. Procedure Notes None recorded. Medical Equipment None Reported. Allergies Allergen ID Allergen Name Allergen Category Reaction Reaction Severity Criticality Documentation Date Start Date Code Code System Note Provider Name and Address Organization Details Recorded Time 79813 tetanus immune globulin, human medicatio n Not available Not available Not available 11/15/2022 95401 RxNorm SUJIT Hughes [facility] & [place] 3 14:42:37 07085 lisinopri l medicatio n Not available Not available Not available 11/15/2022 03412 RxNorm SUJIT Hughes [facility] & [place] 3 14:42:43 Medications Name Sig Start Date Stop Date Status Note LastModified by Organization Details LastModified Time atorvastatin 40 mg tablet active Not Available Not Available Not Available metformin 500 mg tablet active Not Available Not Available No t Available donepezil 5 mg tablet active Not Available Not Available Not Available phenazopyridin e 200 mg tablet active Not Available Not Available Not Available valsartan 80 mg tablet active Not Available Not Available No t Available clopidogrel 75 mg tablet active Not Available Not Available No t Available ciprofloxacin 500 mg tablet Take 1 tablet every 12 hours by oral route as directed for 3 days. active Not Available Not Available No t Available sulfamethoxazo le 800 mg-trimethopri m 160 mg tablet Take 1 tablet every 12 hours by oral route for 7 days. active Not Available Not Available No t Available amitriptyline 50 mg tablet active Not Available Not Available Not Available oxycodone-acet aminophen 5 mg-325 mg tablet active Not Available Not Available Not Available tamsulosin 0.4 mg capsule TAKE 2 CAPSULE ONCE DAILY active Not Available Not Available No t Available cephalexin 500 mg capsule active Not Available Not Available N ot Available pantoprazole 40 mg tablet,delayed release active Not Available Not Available Not Available metformin 1,000 mg tablet active Not Available Not Available Not Available lidocaine 5 % topical patch active Not Available Not Availabl e Not Available folic acid 1 mg tablet active Not Available Not Available No t Available hydrochlorothi azide 25 mg tablet active Not Available Not Available Not Available furosemide 20 mg tablet active Not Available Not Available No t Available gabapentin 100 mg capsule active Not Available Not Available N ot Available metoprolol succinate ER 25 mg tablet,extende d release 24 hr active Not Available Not Available Not Available levofloxacin 500 mg tablet Take 1 tablet every 24 hours by oral route for 7 days. active Not Available Not Available No t Available colchicine 0.6 mg tablet active Not Available Not Available No t Available fluticasone propionate 50 mcg/actuation nasal spray,suspensi on active Not Available Not Available Not Available dicyclomine 10 mg capsule active Not Available Not Available N ot Available finasteride 5 mg tablet Take 1 tablet every day by oral route for 90 days. 2022 active Not Available Not Available Not Avai lable glipizide 5 mg tablet active Not Available Not Available Not Available oxycodone 5 mg tablet active Not Available Not Available Not Available duloxetine 30 mg capsule,delaye d release active Not Available Not Available No t Available duloxetine 60 mg capsule,delaye d release active Not Available Not Available No t Available Januvia 50 mg tablet active Not Available Not Available Not Available Eliquis 2.5 mg tablet active Not Available Not Available Not Available Farxiga 10 mg tablet active Not Available Not Available Not Available Entresto 24 mg-26 mg tablet active Not Available Not Available Not Available Vitals Date Recorded Body height Body mass index (BMI) Body weight Body temperature Provider Name and Address Organization Details Last Updated DateTime 11/15/2022 193.04 cm 34.3 kg/m2 300190.05 g 97 [degF] Malena Ruiz [facility] [place] 11/15/2022 14:42:20 Date Recorded Body height Body mass index (BMI) Body weight Body temperature Provider Name and Address Organization Details Last Updated DateTime 01/17/2023 193.04 cm 34.3 kg/m2 743762.05 g 98 [degF] Jaycee Hammonds [facility] [place] 01/17/2023 11:15:04 Social History None recorded. Functional Status None recorded. Mental Status None recorded. Family History Nothing Reported. Medical History No medical history recorded. Past Encounters Encounter ID Performer Location Encounter Start Date Encounter Closed Date Diagnosis/Indication Diagnosis SNOMED-CT Code Diagnosis ICD10 Code Diagnosis Note [id number] Constantino Bonner M.D [facility] [address] [place] [phone] 11/15/2022 14:35:21 11/15/2022 15:19:57 Lower urinary tract symptoms due to benign prostatic hypertrophy 0550683488 9101 N40.1 will increase to bid flomaxhe has several bottleswil l start finasterid e 5mg although we thought he was on itRTC 2mo - discuss turp if n o better [id number] Constantino Bonner M.D [facility] [address] [facility] [place] [phone] 01/17/2023 11:11:03 01/17/2023 12:56:17 Recurrent urinary tract infection 999573107 N39.0 pt is doing well and will repeat ucx in 6mo Health Concerns Section Related Observation LastModified by Organization Detai ls LastModified Time None Recorded Concern Status LastModified by Organization Details LastModified Time None Recorded Advance Directives Directive None Recorded Payers Encounter Date Sequence Insurance Name Policy Number Policy Whitaker Covered Member ID Whitaker Member ID Guarantor Name 11/15/2022 1 [facility] (MEDICARE REPLACEMENT/A DVANTAGE - PPO) [id number] Steve King [id number] Steve King 01/17/2023 1 [facility] (MEDICARE REPLACEMENT/A DVANTAGE - PPO) [id number] Steve King [id number] Steve King Notes Date Note Type Note Provider Name and Address Organization Details Recorded Time 11/15/2022 text/html pt is here for q 1 hr nocturia and daytime freq and lower abd tenderness . he also has low back painhe has a slow stream hesitation.PVR volume 64he is using finasteride daily and tamsulosin dailyHe denies any gross bloody urine. he has had a you for urinary tract infection intermittently Constantino Bonner M.D [address] [place] [address], [address], [place], [address], SUJIT - ISAAC [facility] [place] 12/02/2022 12:14:05 01/17/2023 text/html pt is here for follow up UTI-he has a decent stream and has improved over the past few monthshe has q 2 hr voidingpsa 0.86no blood in the urinepbx secondary to an abnormal prostate exam showed no evidence of cancer Constantino Bonner M.D [address] [facility], [address], [place], [address], SUJIT - ISAAC [facility] [place] 01/18/2023 10:23:42
--- NOTE | 2025-01-11 07:05 | PC.NURSE ---
ROUNDED ON PT, CALL LIGHT WITHIN REACH. NO NEEDS AT THIS TIME
--- NOTE | 2025-01-11 07:06 | HMH.EDGENADL ---
Discharge Plan Disposition Patient Disposition: Admitted Chief Complaint: Shortness of Breath/Dyspnea Prescriptions Prescriptions: No Action atorvastatin 40 mg tablet 40 mg PO DAILY 90 Days Qty: 90 Patient Comments: TAKE 1 TABLET BY MOUTH AT BEDTIME duloxetine 60 mg capsule,delayed release(DR/EC) 60 mg PO DAILY donepezil [Aricept] 5 mg tablet 5 mg PO HS acetaminophen [Tylenol Extra Strength] 500 mg tablet 500 mg PO Q6HP PRN (Reason: Mild Pain (Scale Score 1-4)) cholecalciferol (vitamin D3) 125 mcg (5,000 unit) capsule 125 mcg PO DAILY ascorbic acid (vitamin C) 500 mg capsule 1,000 mg PO DAILY tamsulosin 0.4 MG capsule 0.4 mg PO HS metformin 1,000 mg tablet 500 mg PO BID amiodarone 200 mg tablet 200 mg PO DAILY midodrine 5 mg tablet 5 mg PO TID spironolactone 25 mg tablet 25 mg PO DAILY Eliquis 5 mg tablet 5 mg PO BID azithromycin 250 mg Tablet 250 mg PO DAILY 2 Days Qty: 2 0RF oseltamivir [Tamiflu] 75 mg Capsule 75 mg PO BID 3 Days Qty: 5 0RF bumetanide 1 mg Tablet 1 mg PO DAILY 30 Days Qty: 30 0RF cefdinir 300 mg capsule 300 mg PO BID 3 Days Qty: 6 0RF acyclovir 800 mg tablet 800 mg PO 5XDAY Qty: 35 0RF Referrals Follow up/Referrals: Provider,Referral, MD [Primary Care Provider] - See instructions Clinical Impressions Clinical Impression: Acute exacerbation of CHF (congestive heart failure), Diabetes, Volume overload Print Language Print Language: Stateless Discharge ED Provider: Nicolas Cantrell General Adult HPI General Chief complaint: Shortness of Breath/Dyspnea Stated complaint: SOA Time Seen by Provider: 01/11/25 07:01 Mode of Arrival: EMS Source of Information: Patient and EMS Description of Symptoms (Recalled from ER Triage Doc. by RN): PT ARRIVED BY EMS W/ C/O SOA X14 DAYS PT REPORTS NOT USING HIS AT HOME O2. DENIES PAIN/FEVER. 3L NC APPLIED BY EMS. PT A&O, RESPS EVEN AND UNLABORED, DUONEB EN ROUTE History of Present Illness HPI narrative: This is an 89-year-old male with a past medical history of congestive heart failure (CHF), diabetes mellitus, coronary artery disease, BPH, mild cognitive impairment mild cognitive impairment, and obstructive sleep apnea who presents with worsening shortness of breath for the last 2 weeks. States that he began to have substernal chest pain and progressively worsening shortness of breath 14 days ago. States that he began to have a cough today. Denies fever. Denies any weight gain. Is unsure if he takes any blood thinners or diuretics. Called EMS due to worsening shortness of breath this morning who transported to ED. Administered [address] Du[address] with improvement in wheezing per report. States that he is prescribed home oxygen but never uses it at home. Related Data Home Medications ?Medication ?Instructions ?Recorded ?Confirmed tamsulosin 0.4 mg capsule 0.4 mg PO HS 03/12/18 10/21/24 duloxetine 60 mg capsule,delayed 60 mg PO DAILY 02/14/23 10/21/24 release acetaminophen 500 mg tablet 500 mg PO Q6HP PRN Mild Pain 04/16/23 10/21/24 (Tylenol Extra Strength) (Scale Score 1-4) ascorbic acid (vitamin C) 500 mg 1,000 mg PO DAILY 04/16/23 10/21/24 capsule atorvastatin 40 mg tablet 40 mg PO DAILY 90 days #90 tabs 04/16/23 10/21/24 cholecalciferol (vitamin D3) 125 125 mcg PO DAILY Supplement 04/16/23 10/21/24 mcg (5,000 unit) capsule donepezil 5 mg tablet (Aricept) 5 mg PO HS 04/16/23 10/21/24 amiodarone 200 mg tablet 200 mg PO DAILY 10/21/24 10/21/24 apixaban 5 mg tablet (Eliquis) 5 mg PO BID 10/21/24 10/21/24 metformin 1,000 mg tablet 500 mg PO BID 10/21/24 10/21/24 midodrine 5 mg tablet 5 mg PO TID 10/21/24 10/21/24 spironolactone 25 mg tablet 25 mg PO DAILY 10/21/24 10/21/24 Previous Rx's ?Medication ?Instructions ?Recorded azithromycin 250 mg tablet 250 mg PO DAILY 2 days #2 tabs 10/23/24 bumetanide 1 mg tablet 1 mg PO DAILY 30 days #30 tabs 10/23/24 cefdinir 300 mg capsule 300 mg PO BID 3 days #6 caps 10/23/24 oseltamivir 75 mg capsule (Tamiflu) 75 mg PO BID 3 days #5 caps 10/23/24 acyclovir 800 mg tablet 800 mg PO 5XDAY shingles #35 tabs 11/17/24 Allergies Allergy/AdvReac Type Severity Reaction Status Date / Time tetanus and diphtheria Allergy Intermediate I-HIVES Verified 12/11/24 08:06 toxoids (TETANUS & DIPHTHERIA TOXOIDS) [facility] Disclaimer: The information contained in this section may have been updated after the patient was seen, as this information can be updated by other users. Medical History Shortness of breath Hypertension High anion gap metabolic acidosis Cervicogenic headache Hearing loss Tinnitus of both ears Surgical History History of right hip replacement History of knee replacement Family History Other Unknown family medical history Social History Smoking Status: Never smoker alcohol intake: never substance use type: denies use current occupational status: retired Travel in the last 8 weeks: None housing: house lives independently: Yes marital status: current occupational exposures/hazards: No caffeine: Yes Have you lived/traveled outside [place] in past 30 days?: No Contact w/someone who lives/traveled outside [place] past 30 days?: No Exposure to someone with infectious disease in past 14 days?: No Do you have a fever (greater than 100.4 F or 38 C)?: No Have you tested positive for COVID-19: No Exposed to someone with COVID-19 in past 14 days?: No Do you have a sore throat?: No Do you have a cough?: No Do you have any weakness?: No Do you have any diarrhea?: No Are you experiencing any unusual bleeding?: No Do you have any muscle aches/pain?: No Do you have any abdominal pain?: No Are you experiencing loss of taste or smell?: No Other Medical History Have you received the Flu Vaccine for this season: No Have you received the Pneumonia Vaccine: No ROS Obtained: Yes All systems reviewed & no additional complaints except as documented Physical Exam General General appearance: alert and in no apparent distress Head Head exam: atraumatic Eye Eye exam: Present normal appearance, PERRL and EOMI Neck Neck exam: Present normal inspection and full ROM Chest Chest inspection: Present symmetric chest wall rise Respiratory Respiratory exam: Present normal lung sounds bilaterally; Absent respiratory distress or wheezes Cardiovascular Cardiovascular exam: Present regular rate and normal rhythm Abdominal Exam Abdominal exam: Present soft; Absent distention Extremities Exam Extremities exam: Present normal inspection and edema (Bilateral lower extremity, 2+ to the shins) Neurological Exam Neurological exam: Present alert and oriented X3 Psychiatric Psychiatric exam: Present normal affect and normal mood Skin Skin exam: Present warm and dry Medical Decision Making Medical Records Medical records reviewed: Yes I reviewed the patient's medical records. Screening: Per USPSTF and CDC recommendations, given the prevalence of disease in our region, it is our hospital?s policy to screen for HIV and viral Hepatitis for all patients aged 18 and over and those with ongoing risk factors. MR Comment: Hospital medicine discharge summary from 10/23/2024 notable for patient's past medical history as noted above. Admission in the setting of influenza A with pneumonia and possible secondary bacterial pneumonia. Acute hypoxic respiratory failure. Noted history of congestive heart failure with NT proBNP of 6660. Responded well to diuretics. Plan to continue Bumex 1 mg daily at discharge as well as amiodarone 200 mg daily, Eliquis 5 mg twice daily, Lipitor 40 mg nightly, midodrine for hypotension 5 mg 3 times a day per home regimen. Jose Antonio Inquiry Pt receiving controlled substance: No Vital Signs: 01/11/25 07:00 01/11/25 07:30 01/11/25 08:00 Temperature 98.6 F Temperature Source Oral Pulse Rate 86 85 Pulse Rate [Apical] 82 Respiratory Rate 24 28 H 24 Blood Pressure 143/102 H 140/98 H Blood Pressure [Right Arm] 119/64 Blood Pressure Mean [Right Arm] 82 02 Sat by Pulse Oximetry 99 99 98 Oxygen Delivery Method Nasal Cannula Nasal Cannula Nasal Cannula Oxygen Flow Rate (LPM) 3 3 3 Lab Data Lab Results 01/11/25 07:05: WBC 7.9, RBC 3.68 L, Hgb 11.6 L, Hct 36.6 L, MCV 99.5 H, MCH 31.5 H, MCHC 31.7 L, RDW 14.2, Plt Count 285, MPV 9.6, Neut % (Auto) 70.8, Lymph % (Auto) 18.1, [place] % (Auto) 9.3, Eos % (Auto) 1.0, Baso % (Auto) 0.4, Neut # (Auto) 5.6, Lymph # (Auto) 1.4, [place] # (Auto) 0.7, Eos # (Auto) 0.1, Baso # (Auto) 0.0, PT 11.4, INR 1.02, Sodium 139, Potassium 4.4, Chloride 106, Carbon Dioxide 25, Anion Gap 12.4, BUN 13, Creatinine 0.80, Estimated Creat Clear 90, Estimated GFR 91, Est GFR ( Amer) 111, Glucose 223 H, Calcium 8.7, Magnesium 1.6, Total Bilirubin 0.6, AST 38, ALT 27, Alkaline Phosphatase 115, Troponin I < 0.01, NT-Pro-B Natriuret Pep 95292 H, Total Protein 6.8, Albumin 3.7, Globulin 3.1, Albumin/Globulin Ratio 1.2 01/11/25 07:07: SARS-CoV-2 (PCR) Not detected, Influenza A Untype (PCR) Not detected, Influenza Type B (PCR) Not detected 01/11/25 07:10: VBG pH 7.41, VBG pCO2 36.3, VBG pO2 50.4 H, VBG HCO3 22.5 L, VBG Total CO2 23.6, VBG O2 Saturation 84.0 H, VBG Base Excess -2.1, VBG Lactic Acid 2.5 H 01/11/25 07:05 01/11/25 07:05 Orders (Tests/Meds): ED MEDICATIONS Generic Name Dose Route Start Last Admin Trade Name Freq PRN Reason Stop Dose Admin Acetaminophen 650 mg 01/11/25 07:59 Acetaminophen 325mg Tab PO 02/10/25 07:58 Q4HP PRN Fever or Mild Pain (1-3) Discontinued Medications Generic Name Dose Route Start Last Admin Trade Name Freq PRN Reason Stop Dose Admin Bumetanide 2 mg 01/11/25 07:39 Bumetanide 1mg/4ml Vial IV 01/11/25 07:40 ONCE ONE ORDERS Category Date Time Status Consult to Case Management [CONS] Routine Cons 01/11/25 07:59 Active Chest XR -- portable [XR chest portable] Stat Exams 01/11/25 07:01 Completed POCUS Point of Care (ER Only) Stat Exams 01/11/25 07:01 Ordered BNP [NT Pro Brain Natriuretic Pep.] Stat Lab 01/11/25 07:05 Completed Basic Metabolic Panel AMLAB Lab 01/12/25 06:00 Ordered CBC w/Auto Diff [Complete Blood Count Auto Diff] Stat Lab 01/11/25 07:05 Completed CMP [Comprehensive Metabolic Panel] Stat Lab 01/11/25 07:05 Completed Magnesium Stat Lab 01/11/25 07:05 Completed PT/INR [Prothrombin Time INR] Stat Lab 01/11/25 07:05 Completed Rapid PCR Covid and Flu A/B Stat Lab 01/11/25 07:07 Completed Troponin I Q3H Lab 01/11/25 10:15 Ordered Troponin I Q3H Lab 01/11/25 13:15 Ordered Troponin I Stat Lab 01/11/25 07:05 Completed VBG [Venous Blood Gas] Stat RT 01/11/25 07:10 Completed ECG Data Tracing #1: I reviewed this ECG and interpreted as documented below: Sinus rhythm at a rate of 92 with first-degree AV block, PVC, left axis deviation, QTc 442, left bundle branch block, no STEMI by Sgarbossa criteria Medical Decision Narrative: In summary, this 89-year-old male with a history of congestive heart failure (CHF), diabetes mellitus, coronary artery disease, BPH, mild cognitive impairment mild cognitive impairment, and obstructive sleep apnea presents to the emergency department today with acute hypoxic respiratory failure and progressively worsening dyspnea for the last 14 days. On initial evaluation patient is afebrile, hemodynamically stable, no significant respiratory distress requiring 3 L nasal cannula. Differential diagnosis includes but is not limited to ACS, pulmonary embolism, pneumonia, CHF, COPD/asthma exacerbation. Based on these concerns, I ordered CBC, CMP, troponin, BNP, EKG, chest x-ray, VBG, PT/INR. ECG personally interpreted as noted above. Labs personally reviewed demonstrate unremarkable CBC, CMP, VBG with the exception of lactate of 2.5, BNP of 12,000. XR personally interpreted demonstrates signs of pulmonary vascular congestion concerning for CHF. Performed [id number] ultrasound which demonstrated severe grossly diminished LVEF and global hypokinesis. Most recent echocardiogram was from 03/07/2024 which revealed LVEF of 30%. Based on gross visualization, it appears to be less than this now. Considered CT PE, however patient's clinical presentation seems to be most consistent with CHF exacerbation. Patient was administered 2 mg of IV Bumex. Patient had no understanding of his present illness and did not know any of his medications. He was prescribed Eliquis and Bumex however did not know he was prescribed any diuretics or water pills to make him pee off fluid or any blood thinners. He stated that his son lives 2 miles away however he did not see him very often and that he lives alone managing all of his medications by himself. He was reportedly prescribed home oxygen however never uses it. Given concern for patient's ability to care for himself at home as well as his apparent new oxygen requirement at 3 L nasal cannula with significant volume overload, it was felt that he was appropriate for admission at this time. Consulted family medicine who ultimately admitted the patient to the hospital. Procedures Miscellaneous Procedure Procedure Performed: Cardiac US Limited Cardiac Ultrasound Indication: Acute hypoxic respiratory failure Identified cardiac views: -Cardiac parasternal long axis -Cardiac parasternal short axis -Cardiac apical four-chamber -Cardiac subxiphoid Findings: -Cardiac activity present -Gross wall motion globally diminished -Pericardial effusion absent -Right heart strain absent Impression: - From above -grossly diminished LVEF, severe Images were saved/were not saved to permanent archive The study was technically adequate CPT: 75528 This study was performed by nj, and I personally interpreted all images/videos. Based on my clinical judgement, these images were adequate and did not necessitate further imaging. Lung ultrasound Limited lung ultrasound A focused ultrasound exam of the pleural spaces was performed to evaluate for pneumothorax, pulmonary edema, pleural effusion and/or consolidation. The ultrasound was performed with the following indications, as noted in the H&P: Acute hypoxic respiratory failure Identified structures: Bilateral thoracic cavities were examined. Findings: Lung sliding: - Present B-lines: - Present bilaterally, diffusely Pleural effusion: - Present on left Consolidation: None Impression: - Pleural effusion left present - B-lines bilateral present Images were saved to permanent archive The study was technically adequate CPT 51416-60 This study was performed by nj, and I personally interpreted all images/videos. Based on my clinical judgement, these images were adequate and did not necessitate further imaging. Critical Care Critical Care Time Critical Care Time: No
[2025-01-11 07:15] LABS: Coronavirus 19, PCR Not Detected (NotDetected); Influenza A, PCR Not Detected (NotDetected); Influenza B, PCR Not Detected (NotDetected)
[2025-01-11 07:16] LABS: Basophils % 0.4 % (0.1-2.0); Eosinophils # 0.1 Kmm3 (0.0-0.4); Hematocrit 36.6 % (42.0-52.0); Hemoglobin 11.6 g/dL (14.1-18.0); Lymphocytes # 1.4 K/mm3 (0.7-4.5); Lymphocytes % 18.1 % (10-50); Mean Corpuscular HGB Conc 31.7 g/dL (31.8-35.4); Mean Corpuscular Hemoglobin 31.5 pg (27.0-31.2); Mean Corpuscular Volume 99.5 fl (80-94); Mean Platelet Volume 9.6 fl (7.4-10.4); Monocytes # 0.7 K/mm3 (0.1-1.0); Monocytes % 9.3 % (1.7-9.3); Neutrophils # 5.6 K/mm3 (1.8-7.8); Neutrophils % 70.8 % (37.0-80.0); Nucleated Red Blood Cells # 0 10^3/uL; Nucleated Red Blood Cells % 0 %; Platelet Count 285 K/mm3 (142-424); Red Blood Count 3.68 M/mm3 (4.60-6.20); Red Cell Distribution Width 14.2 % (11.5-17.5); Red Cell Distribution Width-SD 51.9 fL; White Blood Count 7.9 K/mm3 (4.8-10.8)
--- NOTE | 2025-01-11 07:16 | PC.NURSE ---
XR AT BEDSIDE
[2025-01-11 07:17] LABS: VBG Base Excess -2.1 mmol/L (-2.4-2.3); VBG HCO3 22.5 mmol/L (23-30); VBG PCO2 36.3 mmol/L (35-51); VBG PH 7.41 mmol/L (7.31-7.41); VBG PO2 50.4 mmol/L (28-40); VBG Total CO2 23.6 mmol/L (23-27)
[2025-01-11 07:18] LABS: Lactate Venous 2.5 mmol/L (0.4-2.0)
[2025-01-11 07:21] LABS: Albumin Level 3.7 g/dl (3.5-5.0); Chloride 106 mmol/L (98-107); Potassium 4.4 mmoL/L (3.5-5.1); Sodium 139 mmol/L (136-145)
[2025-01-11 07:24] LABS: Alanine Aminotransferase 27 U/L (12-78); Albumin/Globulin Ratio 1.2 (1.1-1.8); Alkaline Phosphatase 115 U/L (38-126); Anion Gap 12.4 mEq/L (5-15); Aspartate Amino Transferase 38 U/L (17-59); Bilirubin,Total 0.6 mg/dl (0.2-1.3); Blood Urea Nitrogen 13 mg/dl (9-20); Calcium 8.7 mg/dl (8.4-10.2); Carbon Dioxide 25 mmol/L (22.0-30.0); Creatinine Clearance Estimated 90 mL/min (50-200); Estimated Glomerular Filt Rate 91 ml/min (>60); GFR (African American) 111 ML/MIN (>60); Globulin 3.1 g/dL (1.3-3.2); Glucose 223 mg/dl (74-100); Total Protein,Serum 6.8 g/dl (6.3-8.2)
[2025-01-11 07:26] LABS: INR 1.02 (0.9-1.1); Prothrombin Time 11.4 seconds (10.1-12.5)
[2025-01-11 07:27] LABS: Magnesium 1.6 mg/dl (1.6-2.3)
[2025-01-11 07:36] LABS: NT Pro Brain Natriuretic Pep. 12000 pg/mL (0-450)
[2025-01-11 07:45] LABS: Troponin I < 0.01 ng/ml (0.00-0.034)
--- NOTE | 2025-01-11 07:50 | PC.NURSE ---
O2 DECREASED AT THIS TIME 2.5/L PER NC BY DR CHRISTENSEN
--- NOTE | 2025-01-11 07:54 | PC.NURSE ---
DR NEIL MORLEY FOR DR FLORES
--- NOTE | 2025-01-11 07:56 | PC.NURSE ---
DR CHRISTENSEN SPEAKING WITH DR TREJO
--- NOTE | 2025-01-11 07:59 | PC.NURSE ---
priscilla brice spoke with [facility] for bed placement
[2025-01-11] MEDS: BUMETANIDE 1MG/4ML VIAL 2 MG IV (08:15)
--- NOTE | 2025-01-11 08:19 | PC.NURSE ---
REPORT CALLED TO MICHEAL RN
--- NOTE | 2025-01-11 08:20 | PC.NURSE ---
DR CHRISTENSEN MADE AWARE OF SEVERE SEPSIS CRITERIA, NO NEW ORDERS. SEE MD DOCUMENTATION
--- NOTE | 2025-01-11 08:42 | PC.NURSE ---
arrived from ED by w/c
--- NOTE | 2025-01-11 09:15 | P.HP_ITS ---
History of Present Illness *Admission Date: 01/11/25 *Reason for visit:: Shortness of breath *History of present illness: Mr. King is an 89 year old patient of [facility] who sees Dr. Chen for his primary care. He has a history of CAD, CHF (HFrEF) and atrial fibrillation. He called EMS and was brought to the ER at [facility] overnight with reports increasing shortness of breath for the past 2 weeks. He does report some associated substernal chest pain and minimal bilateral leg edema. Patient states he has had two similar episodes in the past and each time they were caused by CHF. He is unsure of the medications currently takes but thinks he has been taking his medications regularly. [facility] Disclaimer: The information contained in this section may have been updated after the patient was seen, as this information can be updated by other users. 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 Diabetic neuropathy Diabetes Acquired hammertoe of right foot Acquired hammertoe of left foot Pneumonia Shortness of breath Hypertension High anion gap metabolic acidosis Cervicogenic headache Hearing loss Tinnitus of both ears Surgical History (Updated 01/11/25 @ 09:26 by Jericho Garcia MD) History of coronary artery stent placement History of appendectomy History of right hip replacement History of knee replacement Family History Other Unknown family medical history Social History Smoking Status: Unknown if ever smoked alcohol intake: never substance use type: denies use current occupational status: retired Travel in the last 8 weeks: None housing: house lives independently: Yes marital status: current occupational exposures/hazards: No caffeine: Yes Have you lived/traveled outside [place] in past 30 days?: No Contact w/someone who lives/traveled outside US past 30 days?: No Exposure to someone with infectious disease in past 14 days?: No Do you have a fever (greater than 100.4 F or 38 C)?: No Have you tested positive for COVID-19: No Exposed to someone with COVID-19 in past 14 days?: No Do you have a sore throat?: No Do you have a cough?: No Do you have any weakness?: No Do you have any diarrhea?: No Are you experiencing any unusual bleeding?: No Do you have any muscle aches/pain?: No Do you have any abdominal pain?: No Are you experiencing loss of taste or smell?: No Other Medical History Have you received the Flu Vaccine for this season: No Have you received the Pneumonia Vaccine: No Review of Systems Constitutional Constitutional: Denies chills and Denies fever(s) ENT Ears, Nose, Mouth, and Throat: Denies dizziness *Cardiovascular Cardiovascular: Reports as per HPI, Reports chest pain and Reports dyspnea *Respiratory Respiratory: Reports as per HPI and Reports dyspnea *Gastrointestinal Gastrointestinal: Denies change in bowel habits *Genitourinary Genitourinary: Denies difficulty urinating *Musculoskeletal Musculoskeletal: Denies back pain *Neurologic Neurologic: Denies dizziness Meds Home Medications and Allergies Home Medications ?Medication ?Instructions ?Recorded ?Confirmed ?Type tamsulosin 0.4 mg capsule 0.4 mg PO HS 03/12/18 10/21/24 History duloxetine 60 mg capsule,delayed 60 mg PO DAILY 02/14/23 10/21/24 History release acetaminophen 500 mg tablet 500 mg PO Q6HP PRN Mild Pain 04/16/23 10/21/24 History (Tylenol Extra Strength) (Scale Score 1-4) ascorbic acid (vitamin C) 500 mg 1,000 mg PO DAILY 04/16/23 10/21/24 History capsule atorvastatin 40 mg tablet 40 mg PO DAILY 90 days #90 tabs 04/16/23 10/21/24 History cholecalciferol (vitamin D3) 125 125 mcg PO DAILY Supplement 04/16/23 10/21/24 History mcg (5,000 unit) capsule donepezil 5 mg tablet (Aricept) 5 mg PO HS 04/16/23 10/21/24 History amiodarone 200 mg tablet 200 mg PO DAILY 10/21/24 10/21/24 History apixaban 5 mg tablet (Eliquis) 5 mg PO BID 10/21/24 10/21/24 History metformin 1,000 mg tablet 500 mg PO BID 10/21/24 10/21/24 History midodrine 5 mg tablet 5 mg PO TID 10/21/24 10/21/24 History spironolactone 25 mg tablet 25 mg PO DAILY 10/21/24 10/21/24 History bumetanide 1 mg tablet 1 mg PO DAILY 30 days #30 tabs 10/23/24 Rx cefdinir 300 mg capsule 300 mg PO BID 3 days #6 caps 10/23/24 Rx New Prescriptions to Start Prescriptions: Allergies Allergy/AdvReac Type Severity Reaction Status Date / Time tetanus and diphtheria Allergy Intermediate I-HIVES Verified 12/11/24 08:06 toxoids (TETANUS & DIPHTHERIA TOXOIDS) Exam Data for Last 24 hours Vital signs and Labs for Last 24 Hours: Temp Pulse Resp BP Pulse Ox O2 Del Method O2 Flow Rate 97.9 F 102 H 22 121/78 94 L Nasal Cannula 3 01/11/25 09:00 01/11/25 09:00 01/11/25 09:00 01/11/25 09:00 01/11/25 09:00 01/11/25 09:00 01/11/25 09:00 Laboratory Results - last 24 hr 01/11/25 07:05: WBC 7.9, RBC 3.68 L, Hgb 11.6 L, Hct 36.6 L, MCV 99.5 H, MCH 31.5 H, MCHC 31.7 L, RDW 14.2, Plt Count 285, MPV 9.6, Neut % (Auto) 70.8, Lymph % (Auto) 18.1, Whitley % (Auto) 9.3, Eos % (Auto) 1.0, Baso % (Auto) 0.4, Neut # (Auto) 5.6, Lymph # (Auto) 1.4, Whitley # (Auto) 0.7, Eos # (Auto) 0.1, Baso # (Auto) 0.0, PT 11.4, INR 1.02, Sodium 139, Potassium 4.4, Chloride 106, Carbon Dioxide 25, Anion Gap 12.4, BUN 13, Creatinine 0.80, Estimated Creat Clear 90, Estimated GFR 91, Est GFR ( Amer) 111, Glucose 223 H, Calcium 8.7, Magnesium 1.6, Total Bilirubin 0.6, AST 38, ALT 27, Alkaline Phosphatase 115, Troponin I < 0.01, NT-Pro-B Natriuret Pep 75876 H, Total Protein 6.8, Albumin 3.7, Globulin 3.1, Albumin/Globulin Ratio 1.2 01/11/25 07:07: SARS-CoV-2 (PCR) Not detected, Influenza A Untype (PCR) Not detected, Influenza Type B (PCR) Not detected 01/11/25 07:10: VBG pH 7.41, VBG pCO2 36.3, VBG pO2 50.4 H, VBG HCO3 22.5 L, VBG Total CO2 23.6, VBG O2 Saturation 84.0 H, VBG Base Excess -2.1, VBG Lactic Acid 2.5 H I & O for Last 24 hours: Intake & Output 01/08/25 01/09/25 01/10/25 01/11/25 23:59 23:59 23:59 23:59 Output Total 850 / 850 Balance -850 / -850 Weight 278 lb 1 oz Constitutional Constitutional: no acute distress Comments: conversant *Routine HEENT Exam Head: Present normocephalic Eye: Present EOMI and PERRL ENT: Present mucous membranes moist *Routine Neck Exam Neck: Present supple; Absent lymphadenopathy *Routine Respiratory Exam Respiratory: Present decreased breath sounds (in bases) *Routine Cardiovascular Exam Cardiovascular: Present RRR and murmur (systolic) *Routine Abdominal Exam Abdominal: Present soft and normoactive bowel sounds; Absent tenderness *Routine Rectal Exam Rectal:: deferred *Routine Genitalia Exam Genitalia:: deferred *Routine Extremities Exam Extremities: Present edema (bilateral legs, 1+) *Routine Skin Exam Comments: chronic changes to both legs, right more than left. Dry scaling skin with a purple discoloration *Routine Neurological Exam Neurological: Present alert and oriented X3 Comments: decreased strength and mobility of right upper extremity Assessment and Plan *Assessment and plan (1) Volume overload: Status: Acute Qualifiers: Hypervolemia type: other Qualified Code(s): E87.79 - Other fluid overload Category: Medical Code(s): E87.70 - Fluid overload, unspecified (2) Acute exacerbation of CHF (congestive heart failure): Status: Acute Qualifiers: Heart failure type: systolic Qualified Code(s): I50.23 - Acute on chronic systolic (congestive) heart failure Category: Medical Code(s): I50.9 - Heart failure, unspecified (3) HFrEF (heart failure with reduced ejection fraction): Status: Acute Category: Medical Code(s): I50.20 - Unspecified systolic (congestive) heart failure (4) Elevated brain natriuretic peptide (BNP) level: Status: Acute Category: Medical Code(s): R79.89 - Other specified abnormal findings of blood chemistry (5) Edema of both lower extremities: Status: Acute Category: Medical Code(s): R60.0 - Localized edema (6) Shortness of breath: Status: Acute Category: Medical Code(s): R06.02 - Shortness of breath (7) Hypoxia: Status: Acute Category: Medical Code(s): R09.02 - Hypoxemia (8) Chest pain: Status: Acute Category: Medical Code(s): R07.9 - Chest pain, unspecified (9) Diabetes: Status: Acute Category: Medical Code(s): E11.9 - Type 2 diabetes mellitus without complications (10) BMI greater than 30: Status: Chronic Category: Medical (11) MCI (mild cognitive impairment) with memory loss: Status: Chronic Category: Medical Code(s): G31.84 - Mild cognitive impairment of uncertain or unknown etiology (12) NIGHAT on CPAP: Status: Chronic Category: Medical Code(s): G47.33 - Obstructive sleep apnea (adult) (pediatric) Plan Patient admitted for further evaluation and management of what appears to be a CHF exacerbation. He is more comfortable now after receiving Bumex, will order echo for tomorrow morning. See orders.
[2025-01-11] MEDS: DULOXETINE 30MG CAPSULE.DR 60 MG PO (10:01)
[2025-01-11] MEDS: ENOXAPARIN 40MG/0.4ML SYRINGE 40 MG SUBCUT (10:01)
[2025-01-11] MEDS: FAMOTIDINE 20MG TABLET 20 MG PO ×2 (10:01→20:53)
[2025-01-11] MEDS: AMIODARONE 200MG TABLET 200 MG PO (10:01)
[2025-01-11] MEDS: ACETAMINOPHEN 325MG TAB 650 MG PO ×2 (10:03→15:06)
--- NOTE | 2025-01-11 10:12 | HMH.PHAINT1 ---
Pharmacy Intervention Comments: MEDICATION RECONCILIATION COMPLETE USING RECENT HOSPITAL DISCHARGE NOTE.
[2025-01-11] MEDS: humaLOG 100 UNITS/ML 10ML VIAL (SSI) SUBCUT ×3 (11:04→20:53)
[2025-01-11 11:19] LABS: Reflex Lactic Add Lactic Reflex
[2025-01-11 11:22] LABS: POC Glucose,Bedside 199 (70-110)
[2025-01-11 11:27] LABS: Troponin I < 0.01 ng/ml (0.00-0.034)
[2025-01-11 11:48] LABS: Lactic Acid Follow Up (RFLX 1) 1.4 mmol/L (0.7-2.1)
[2025-01-11 13:41] LABS: Troponin I 0.02 ng/ml (0.00-0.034)
[2025-01-11] MEDS: BUMETANIDE 1MG/4ML VIAL 1 MG IV (15:01)
[2025-01-11 15:22] LABS: POC Glucose,Bedside 152 (70-110)
--- NOTE | 2025-01-11 17:25 | PC.NURSE ---
Pt has done well since this RN assumed pt care. He remains on 2.5L nasal cannula and is tolerating well. He has ambulated to the bathroom. Diuresing well with Bumex. 2+ edema to BLE. Has c/o a headache this shift and has been medicated per nov.
[2025-01-11 20:14] LABS: POC Glucose,Bedside 170 (70-110)
[2025-01-11] MEDS: MELATONIN 5MG TABLET 5 MG PO (20:53)
[2025-01-11] MEDS: ATORVASTATIN 40MG TABLET 40 MG PO (20:53)
[2025-01-12] VITALS (7 sets, daily range): BP systolic 103–136; BP diastolic 67–88; PULSE 65–88; RESP 16–22; TEMP 36.4–36.8; O2SAT 94–99; BMI 34.1
--- NOTE | 2025-01-12 05:37 | PC.NURSE ---
Pt A&OX4. He has remained on BiPap with 3L O2 throughout the night. Diuresing well. He has remained on continuous pulse oximetry as well as tele. No complaints at this time, call light within reach.
[2025-01-12] MEDS: humaLOG 100 UNITS/ML 10ML VIAL (SSI) SUBCUT ×3 (06:01→17:40)
[2025-01-12 06:18] LABS: POC Glucose,Bedside 194 (70-110)
[2025-01-12 06:28] LABS: Chloride 102 mmol/L (98-107); Potassium 3.9 mmoL/L (3.5-5.1); Sodium 137 mmol/L (136-145)
[2025-01-12 06:31] LABS: Anion Gap 9.9 mEq/L (5-15); Blood Urea Nitrogen 17 mg/dl (9-20); Calcium 8.5 mg/dl (8.4-10.2); Carbon Dioxide 29 mmol/L (22.0-30.0); Creatinine Clearance Estimated 94 mL/min (50-200); Estimated Glomerular Filt Rate 80 ml/min (>60); GFR (African American) 97 ML/MIN (>60); Glucose 166 mg/dl (74-100)
--- NOTE | 2025-01-12 07:00 | CA_ITS ---
APPROVED REPORT EXAM: Comprehensive 2D, Doppler, and color-flow Echocardiogram with contrast Tool And [employer] Engineer: Liliya Gan CRT Ht: 6 ft 4 in Wt: 278lbs BSA: 2.55 BP: 121/78 mmHg Indications: Congestive Heart Failure, Shortness of Breath, Atrial Fibrillation, Diabetes, Peripheral Edema, CAD, stents, NIGHAT EF 30%, mod , echo 03/10/24 Echo Enhancing Agent Indication: Endocardial border delineation Agent(s) / Amount(s) Used: Definity 2 cc Comments: Definity given 2D Dimensions LA Volume 166.10 mL LA Volume Index 63.60 mL/m2 (M/F) 16-34 M-Mode Dimensions RVDd 3.42 cm (0.9-2.6) LA Diam 5.46 cm (1.9-4.0) LVDd 6.42 cm (3.5-5.7) LVDs 6.09 cm (3.5-5.7) IVSd 1.61 cm (0.6-1.1) PWd 1.27 cm (0.6-1.1) EF (Teich) 11.30% FS 5.10% EDV (Teich) 210.00 mL TAPSE 1.63 (<1.7) ESV (Teich) 186.20 mL LV Diastology E Decel Time 150 (160-240 msec) E/A Ratio 3.53 MED A' 5.10 cm/s LAT A' 3.30 cm/s Aortic Valve JACQUES Index 0.52 cm2/m2 AoV Peak Chance. 269.0 (50-130 cm/s) AI PHT 273.00 ms AO Peak GR. 29.60 mmHg AO Mean GR. 17.10 (<5 mmHg) AO VTI 55.7 (18-25 cm) JACQUES (VTI) 1.36 (2.5-4.5 cm2) Mitral Valve MV E Max Chance. 95.0 (40-130 cm/s) MV A Velocity 27.0 (40-130 cm/s) E/A Ratio 3.53 MV PHT 44.0 ms Pulmonary Valve PV Peak Velocity 177.0 (50-150 cm/s) Tricuspid Valve TR P. Velocity 308.00 cm/s RAP Estimate 10.00 mmHg RVSP 47.80 mmHg Left Ventricle The left ventricle is normal size. The left ventricular systolic function is severely reduced. There is increased LV wall thickness. There is severe global hypokinesis present. Diastolic function is indeterminate. LVEF is 20%. Right Ventricle The right ventricle is normal size. The right ventricular systolic function is normal. Atria Left atrium is moderately dilated. Right atrium is mildly dilated. There is no Doppler evidence of interatrial shunt. Aortic Valve Aortic valve is moderately thickened. Moderate aortic stenosis is present. JACQUES by continuity equation is 1.1 cm???. Peak velocity 3.5 m/s. Mean AV gradient 25 mmHg. Max AV gradient 47 mmHg. Mild aortic regurgitation. Mitral Valve The mitral valve leaflets are mildly thickened. No evidence of mitral valve stenosis. Moderate mitral regurgitation. Tricuspid Valve Tricuspid valve is grossly normal in structure and function. Trace tricuspid regurgitation. There is insufficient TR jet to estimate RVSP. Pulmonic Valve The pulmonary valve is normal in structure. Mild pulmonic regurgitation. Great Vessels The aortic root is normal in size. IVC is normal in size and collapses >50% with inspiration. Pericardium There is no pericardial effusion. Other Information Study Quality: Fair Conclusion Severe reduction in LV systolic function (LVEF 20%). Biatrial dilation. Moderate (JACQUES by continuity equation is 1.1 cm???. Peak velocity 3.5 m/s. Mean AV gradient 25 mmHg. Max AV gradient 47 mmHg). Moderate MR. Mild AI, mild PI. Electronically signed by : Haydee Hawkins MD 01/13/2025 11:42:02
[2025-01-12] MEDS: DEFINITY US ECHO CONTRAST 2ML INJ 2 MG IV (07:49)
--- NOTE | 2025-01-12 07:49 | P.PN_ITS ---
Subjective *Date: 01/12/25 *Time: 08:47 Interval history: Patient on BiPAP but answers questions appropriately and readily. He states he did not sleep much last night. He denies any pain anyplace. He denies shortness of breath. He is voiding frequently after Bumex. He is not hungry fo r breakfast this morning. He did eat well yesterday as per notes. He has diuresed 5+ liters since admission. This morning a.m. labs show normal electrolytes with a BUN of 17 and creatinine of 0.9. Preliminary echocardiogram results indicate ejection fraction of 30%. Echo completed in 03/07/2024 also revealed left ventricular ejection fraction of 30%. Exam Data for Last 24 hours Vital signs and Labs for Last 24 Hours: Temp Pulse Resp BP Pulse Ox O2 Del Method O2 Flow Rate 98.1 F 76 18 126/88 94 L BiPAP 3 01/12/25 07:36 01/12/25 07:36 01/12/25 07:36 01/12/25 07:36 01/12/25 07:36 01/12/25 07:36 01/12/25 06:39 FiO2 28 01/11/25 22:00 Laboratory Results - last 24 hr 01/11/25 10:55: Troponin I < 0.01 01/11/25 11:00: POC Glucose 199 H 01/11/25 11:30: Lactate 1.4 01/11/25 13:13: Troponin I 0.02 01/11/25 15:03: POC Glucose 152 H 01/11/25 20:06: POC Glucose 170 H 01/12/25 05:28: Sodium 137, Potassium 3.9, Chloride 102, Carbon Dioxide 29, Anion Gap 9.9, BUN 17 D, Creatinine 0.90, Estimated Creat Clear 94, Estimated GFR 80, Est GFR ( Amer) 97, Glucose 166 H D, Calcium 8.5 01/12/25 06:00: POC Glucose 194 H I & O for Last 24 hours: Intake & Output 01/09/25 01/10/25 01/11/25 01/12/25 11:59 11:59 11:59 11:59 Intake Total 1430 / 1430 Output Total 1750 / 1750 3425 / 3425 Balance -1749 / -1749 -1994 / Weight 278 lb 1 oz 280 lb 4.449 oz Constitutional Constitutional: no acute distress Comments: Remains on BiPAP which he uses nightly at home. Lying almost flat in the bed and appears comfortable with easy respiratory effort. *Routine Respiratory Exam Respiratory: Present CTA bilaterally (Anteriorly and posteriorly) *Routine Cardiovascular Exam Cardiovascular: Present RRR (Monitor showing sinus rhythm with occasional to frequent PVCs) and murmur *Routine Abdominal Exam Abdominal: Present soft and normoactive bowel sounds; Absent tenderness or distended *Routine Extremities Exam Extremities: Absent edema or calf tenderness Comments: Stasis changes noted in bilateral lower legs. Scattered dry patches in lower legs. *Routine Neurological Exam Neurological: Present alert and oriented X3 Assessment and Plan *Assessment and plan (1) Volume overload: Status: Acute Qualifiers: Hypervolemia type: other Qualified Code(s): E87.79 - Other fluid overload Category: Medical Code(s): E87.70 - Fluid overload, unspecified (2) Acute exacerbation of CHF (congestive heart failure): Status: Acute Qualifiers: Heart failure type: systolic Qualified Code(s): I50.23 - Acute on chronic systolic (congestive) heart failure Category: Medical Code(s): I50.9 - Heart failure, unspecified (3) HFrEF (heart failure with reduced ejection fraction): Status: Acute Category: Medical Code(s): I50.20 - Unspecified systolic (congestive) heart failure (4) Elevated brain natriuretic peptide (BNP) level: Status: Acute Category: Medical Code(s): R79.89 - Other specified abnormal findings of blood chemistry (5) Edema of both lower extremities: Status: Acute Category: Medical Code(s): R60.0 - Localized edema (6) Shortness of breath: Status: Acute Category: Medical Code(s): R06.02 - Shortness of breath (7) Hypoxia: Status: Acute Category: Medical Code(s): R09.02 - Hypoxemia (8) Chest pain: Status: Acute Category: Medical Code(s): R07.9 - Chest pain, unspecified (9) Diabetes: Status: Acute Category: Medical Code(s): E11.9 - Type 2 diabetes mellitus without complications (10) BMI greater than 30: Status: Chronic Category: Medical (11) MCI (mild cognitive impairment) with memory loss: Status: Chronic Category: Medical Code(s): G31.84 - Mild cognitive impairment of uncertain or unknown etiology (12) NIGHAT on CPAP: Status: Chronic Category: Medical Code(s): G47.33 - Obstructive sleep apnea (adult) (pediatric) Plan Continue with diuresis. Some of home meds ordered and spironolactone and daily p.o. Bumex and Eliquis Dr. Garcia entry - Saw patient, agree with above note. He has improved. PT to see patient today, possible discharge later today.
[2025-01-12] MEDS: BUMETANIDE 1 MG TABLET PO (09:03)
[2025-01-12] MEDS: APIXABAN 5MG TABLET 5 MG PO (09:03)
[2025-01-12] MEDS: DULOXETINE 30MG CAPSULE.DR 60 MG PO (09:03)
[2025-01-12] MEDS: AMIODARONE 200MG TABLET 200 MG PO (09:03)
[2025-01-12] MEDS: SPIRONOLACTONE 25MG TABLET 25 MG PO (09:04)
[2025-01-12] MEDS: METFORMIN 500MG TABLET 500 MG PO ×2 (09:04→17:00)
[2025-01-12] MEDS: FAMOTIDINE 20MG TABLET 20 MG PO (09:04)
--- NOTE | 2025-01-12 09:50 | HMH.OTEV ---
OT Inpatient Evaluation Rehab OT IP Evaluation Start: 01/11/25 09:43 Freq: ONCE Status: Active Protocol: Document [place]/12/25 09:23 [email or web address] (Rec: 01/12/25 09:50 [facility] [id number]) Rehab OT IP Assessment Subjective History Pt oriented x 3 on arrival. Pt agreeable to engage in therapy evaluation. Nursing present during therapy evaluation. Pt admitted on due to SOB and CHF. History and Physical: Mr. King is an 89 year old patient of [facility] who sees Dr. Chen for his primary care. He has a history of CAD, CHF (HFrEF) and atrial fibrillation. He called EMS and was brought to the ER at [facility] overnight with reports increasing shortness of breath for the past 2 weeks. He does report some associated substernal chest pain and minimal bilateral leg edema. Patient states he has had two similar episodes in the past and each time they were caused by CHF. He is unsure of the medications currently takes but thinks he has been taking his medications regularly. Subjective Prior to being in the hospital , pt reports he lives at home alone. Pt claims normally he is independent with all ADLs and IADLs. Pt does use a rolling walker during functional transfers. Pt also still drove. Pt uses oxygen at night. Objective Patient Orientation Person,Place,Birthday Right Upper Extremity Gross ROM WFL Left Upper Extremity Gross ROM WFL Bed Mobility bed mobility-scooting,bed mobility - supine/sit Assist Level Contact Guard/Hand Hold Assist Level Contact Guard/Hand Hold Chair Transfer Ability Contact Guard/Hand Hold Chair Transfer Technique Sit to/from Ambulatory Chair Transfer Assistive Devices Rolling Walker Lower Body Dressing Ability Minimal Assistance Rehab OT IP prob,goals,plan Problems Date of Evaluation: 01/12/25 OT IP Problems Bed Mobility,Transfers,Balance ,Self care,Safety Rehab Potential Rehab Potential Good Equipment Needs Assistive Devices Rolling / Wheeled Walker Plan OT intervention Plan Bed Mobility,Transfers,Balance ,Self care,Safety,Therapeutic Exercise OT Plan Frequency Daily Duration LOS Discharge Goals Bed Mobility Ability Standby Assistance Chair Transfer Ability Supervision/Stand by Chair Transfer Technique Sit to/from Ambulatory Chair Transfer Assistive Devices Rolling Walker Feeding Ability Assist with Tray Set Up Lower Body Dressing Ability Standby Assistance Upper Body Dressing Ability Standby Assistance Bathing Ability Standby Assistance Performing Toilet Hygiene Ability Standby Assistance Overall Commode/Toilet Transfer Ability Standby Assistance Decrease in Endurance Yes Discharge Plan OT Discharge Plan Pt will continue to be seen for OT services while at [facility]. Pt can return home once he is medically stable per physician. Therapist recommends OT evaluation for continued skilled services upon returning home. Eval Complexity Eval Charge Codes 46634 - Moderate Complexity PHYSICIAN CERTIFICATION: I certify the specified therapy services for Steve King are required, authorized, and reviewed every 30 days.
--- NOTE | 2025-01-12 10:38 | HMH.PTEV ---
Physical Therapy Evaluation Rehab PT IP Evaluation Start: 01/11/25 09:43 Freq: .once Status: Active Protocol: Document 01/12/25 08:50 STIV[facility] (Rec: 01/12/25 10:38 [facility] [id number]) Subjective/History History History Mr. King is an 89 year old patient with a history of CAD, CHF (HFrEF) and atrial fibrillation. Patient admitted for further evaluation and management of what appears to be a CHF exacerbation. Pt currently lives at home and is independent with all ADLs and mobility at baseline. Pt uses a RW for ambulation. Subjective Subjective Pt presents sitting at EOB for breakfast this am. He is alert and talkative and is willing to participate with PT /OT and move to a bedside chair. Pt does not c/o pain at this time. Pt moved to bedside chair to finish breakfast with call light in reach. [facility] How much help from another person do you currently need... Turning from your back to your side None while in a flat bed without using bedrails? Moving from lying on back to sitting on None the side of a flat bed without using bedrails? Moving to and from a bed to a chair ( None including a wheelchair)? Standing up from a chair using your arms None ? (e.g., wheelchair, bedside chair) Walking in hospital room? A little Climbing 3-5 steps with a railing? None Mobility Score 23 Mobility Level [facility] Mobility Calculator Mobility 7 Walk 25 feet or more Rehab PT IP Eval Objective Appearance Patient Behavior Appropriate,Cooperative Patient Orientation Person,Place,Time Difficulty following instructions none Speech Pattern Clear,Appropriate Ambulation Patient Able to Ambulate Yes Ambulation Observation IP General Gait Pattern Observation Wide Based Gait Ambulation Distance (feet) 5 Ambulation Assistive Device Rolling Walker Ambulation Ability Contact Guard/Hand Hold Balance Ability to Arise Able, uses arms to help Sitting Balance Steady, safe Standing Balance Steady, wide stance Dynamic Sitting Balance Ability Normal Dynamic Standing Balance Ability Normal Transfers Chair Transfer Ability Contact Guard/Hand Hold Sit to Stand Bed Transfer Ability Contact Guard/Hand Hold Sit to Stand Chair Transfer Ability Contact Guard/Hand Hold Rehab PT IP prob,goals,plan Problems Date of Evaluation: 01/12/25 PT IP Problems Bed Mobility,Transfers,Gait, Balance,Safety Rehab Potential Rehab Potential Good Equipment Needs Assistive Devices Rolling / Wheeled Walker Plan PT Intervention Plan Bed Mobility,Transfers,Gait, Balance,Self care,Therapeutic Exercise PT Plan Frequency Daily Duration LOS Discharge Goals Bed Transfer Ability Independent Sit to Stand Chair Transfer Ability Independent Ambulation Assistive Device Rolling Walker Ambulation Distance (feet) 50 Discharge Plan PT Discharge Plan Patient is currently most appropriate to return home once medically stable for d/c. Pt is able to ambulate near stated baseline. Skilled acute therapy is currently indicated to improve LE strength and endurance to return to PLOF with all ADLs and ambulation ability. Home health is recommended to further improve aerobic endurance. Eval Complexity Eval Charge Codes 26203 - High Complexity PHYSICIAN CERTIFICATION: I certify the specified therapy services for Steve King are required, authorized, and reviewed every 30 days.
--- NOTE | 2025-01-12 10:50 | SW/DCPLANNER ---
Addendum entered by Lydia العراقي 01/12/25 14:36: [facility] has accepted patient. Gume Paulson Original Note: Spoke with patient once medically stable for discharge if he would be interested in home health services. Patient stated that he would like to have home health services and he has no preference. I faxed patient's information to [email or web address] and will update once i hear back if [facility] can accept patient or not. Gume Paulson
[2025-01-12 11:42] LABS: POC Glucose,Bedside 215 (70-110)
--- NOTE | 2025-01-12 14:02 | PC.NURSE ---
PATIENT RA SATURATION AT REST IS 95%.
[2025-01-12 17:26] LABS: POC Glucose,Bedside 182 (70-110)
--- NOTE | 2025-01-14 10:07 | SW/DCPLANNER ---
Phoned patient x2. Left patient with name and call back number. Gume Paulson
--- NOTE | 2025-01-16 14:45 | P.DS_ITS ---
General Admission date:: 01/11/25 Discharge date: 01/12/25 HPI HPI HPI: Mr. King is an 89 year old patient of [facility] who sees Dr. Chen for his primary care. He has a history of CAD, CHF (HFrEF) and atrial fibrillation. He called EMS and was brought to the ER at [facility] overnight with reports increasing shortness of breath for the past 2 weeks. He does report some associated substernal chest pain and minimal bilateral leg edema. Patient states he has had two similar episodes in the past and each time they were caused by CHF. He is unsure of the medications currently takes but thinks he has been taking his medications regularly. Hospital Course Hospital Course Hospital Course: The patient was admitted for further evaluation and treatment of what appeared to be a CHF exacerbation. He was much more comfortable after receiving Bumex. An echo was ordered. By 01/12/2025, he had been placed on BiPAP but was able to answer questions appropriately. He continued to diurese after receiving the Bumex. He diuresed approximately 5+ liters. His preliminary echo showed an ejection fraction of 30%. An echo completed on 03/07/2024 also revealed an EF of 30%. Some of his home medications were ordered and he was continued on Spironolactone, Bumex, and Eliquis. Physical therapy saw the patient and he was stable to be discharged home. Exam Data for Last 24 hours Vital signs and Labs for Last 24 Hours: Temp Pulse Resp BP Pulse Ox O2 Del Method O2 Flow Rate 98.3 F 80 16 103/67 L 98 Nasal Cannula 2.5 01/12/25 12:00 01/12/25 16:00 01/12/25 12:00 01/12/25 12:00 01/12/25 12:00 01/12/25 16:59 01/12/25 16:59 FiO2 28 01/11/25 22:00 Narrative: Constitutional Constitutional: no acute distress Comments: conversant *Routine HEENT Exam Head: Present normocephalic Eye: Present EOMI and PERRL ENT: Present mucous membranes moist *Routine Neck Exam Neck: Present supple; Absent lymphadenopathy *Routine Respiratory Exam Respiratory: Present decreased breath sounds (in bases) *Routine Cardiovascular Exam Cardiovascular: Present RRR and murmur (systolic) *Routine Abdominal Exam Abdominal: Present soft and normoactive bowel sounds; Absent tenderness *Routine Rectal Exam Rectal:: deferred *Routine Genitalia Exam Genitalia:: deferred *Routine Extremities Exam Extremities: Present edema (bilateral legs, 1+) *Routine Skin Exam Comments: chronic changes to both legs, right more than left. Dry scaling skin with a purple discoloration *Routine Neurological Exam Neurological: Present alert and oriented X3 Comments: decreased strength and mobility of right upper extremity DS: Diagnosis Discharge Diagnosis (1) Volume overload: Status: Acute Code(s): E87.70 - Fluid overload, unspecified Qualifiers: Hypervolemia type: other Qualified Code(s): E87.79 - Other fluid overload (2) Acute exacerbation of CHF (congestive heart failure): Status: Acute Code(s): I50.9 - Heart failure, unspecified Qualifiers: Heart failure type: systolic Qualified Code(s): I50.23 - Acute on chronic systolic (congestive) heart failure (3) HFrEF (heart failure with reduced ejection fraction): Status: Acute Code(s): I50.20 - Unspecified systolic (congestive) heart failure (4) Elevated brain natriuretic peptide (BNP) level: Status: Acute Code(s): R79.89 - Other specified abnormal findings of blood chemistry (5) Edema of both lower extremities: Status: Acute Code(s): R60.0 - Localized edema (6) Shortness of breath: Status: Acute Code(s): R06.02 - Shortness of breath (7) Hypoxia: Status: Acute Code(s): R09.02 - Hypoxemia (8) Chest pain: Status: Acute Code(s): R07.9 - Chest pain, unspecified (9) Diabetes: Status: Acute Code(s): E11.9 - Type 2 diabetes mellitus without complications (10) BMI greater than 30: Status: Chronic (11) MCI (mild cognitive impairment) with memory loss: Status: Chronic Code(s): G31.84 - Mild cognitive impairment of uncertain or unknown etiology (12) NIGHAT on CPAP: Status: Chronic Code(s): G47.33 - Obstructive sleep apnea (adult) (pediatric) Meds Home Medications and Allergies Home Medications ?Medication ?Instructions ?Recorded ?Confirmed ?Type tamsulosin 0.4 mg capsule 0.4 mg PO HS 03/12/18 01/11/25 History duloxetine 60 mg capsule,delayed 60 mg PO DAILY 02/14/23 01/11/25 History release acetaminophen 500 mg tablet 500 mg PO Q6HP PRN Mild Pain 04/16/23 01/11/25 History (Tylenol Extra Strength) (Scale Score 1-4) ascorbic acid (vitamin C) 500 mg 1,000 mg PO DAILY 04/16/23 01/11/25 History capsule atorvastatin 40 mg tablet 40 mg PO DAILY 90 days #90 tabs 04/16/23 01/11/25 History cholecalciferol (vitamin D3) 125 125 mcg PO DAILY 04/16/23 01/11/25 History mcg (5,000 unit) capsule donepezil 5 mg tablet (Aricept) 5 mg PO HS 04/16/23 01/11/25 History amiodarone 200 mg tablet 200 mg PO DAILY 10/21/24 01/11/25 History apixaban 5 mg tablet (Eliquis) 5 mg PO BID 10/21/24 01/11/25 History metformin 1,000 mg tablet 500 mg PO BIDWMEAL 10/21/24 01/11/25 History midodrine 5 mg tablet 5 mg PO TID 10/21/24 01/11/25 History spironolactone 25 mg tablet 25 mg PO DAILY 10/21/24 01/11/25 History bumetanide 1 mg tablet 1 mg PO DAILY 30 days #30 tabs 10/23/24 01/11/25 Rx New Prescriptions to Start Prescriptions: Allergies Allergy/AdvReac Type Severity Reaction Status Date / Time tetanus and diphtheria Allergy Intermediate I-HIVES Verified 12/11/24 08:06 toxoids (TETANUS & DIPHTHERIA TOXOIDS) Discharge Plan Disposition Patient Disposition: Home Health Service Condition: Fair Discharge Order Discharge Orders: Discharge Order (Routine); Ordered 01/12/25 Ordered By: Jericho Garcia Follow up Plan Follow up with: Stephen Chen MD [Primary Care Provider] - 01/20/25 11:45 am Prescriptions/Medication Reconciliation: Continued atorvastatin 40 mg tablet 40 mg PO DAILY 90 Days Qty: 90 Patient Comments: TAKE 1 TABLET BY MOUTH AT BEDTIME duloxetine 60 mg capsule,delayed release(DR/EC) 60 mg PO DAILY donepezil [Aricept] 5 mg tablet 5 mg PO HS acetaminophen [Tylenol Extra Strength] 500 mg tablet 500 mg PO Q6HP PRN (Reason: Mild Pain (Scale Score 1-4)) cholecalciferol (vitamin D3) 125 mcg (5,000 unit) capsule 125 mcg PO DAILY ascorbic acid (vitamin C) 500 mg capsule 1,000 mg PO DAILY tamsulosin 0.4 MG capsule 0.4 mg PO HS metformin 1,000 mg tablet 500 mg PO BIDWMEAL amiodarone 200 mg tablet 200 mg PO DAILY midodrine 5 mg tablet 5 mg PO TID spironolactone 25 mg tablet 25 mg PO DAILY Eliquis 5 mg tablet 5 mg PO BID bumetanide 1 mg Tablet 1 mg PO DAILY 30 Days Qty: 30 0RF Problem Reconciliation Problems Reviewed?: Yes Patient Discharge Instructions ACTIVITY: Continue current activity DIET: diabetic diet, low fat, low cholesterol and low salt diet Patient Instructions: Congestive Heart Failure (Alternative Therapy), Heart Failure, Lifestyle Habits May Lower Lifetime Risk of Heart Failure in Men, Stop Light Heart Failure Print Language: Portuguese Providers Primary Care Provider: Stephen Chen Admit Provider: Jericho Garcia Attending Provider: Jericho Garcia
== END 2025-01-12 17:53 | disposition home health service (06) ==
LOC: ER 08:11 → 2ND 08:15
PROVIDERS: Admitting Provider Family Medicine; Emergency Provider Student in an Organized Health Care Education/Training Program; PCP Family Medicine; Visit Provider Family Medicine
DX: I11.0 Hypertensive heart disease with heart failure (principal); I50.23 Acute on chronic systolic (congestive) heart failure; E87.79 Other fluid overload; R79.89 Other specified abnormal findings of blood chemistry; R60.0 Localized edema; R07.9 Chest pain, unspecified; E11.9 Type 2 diabetes mellitus without complications; I25.10 Atherosclerotic heart disease of native coronary artery without angina pectoris; E11.40 Type 2 diabetes mellitus with diabetic neuropathy, unspecified; I48.91 Unspecified atrial fibrillation; E66.9 Obesity, unspecified; J96.01 Acute respiratory failure with hypoxia; N40.0 Benign prostatic hyperplasia without lower urinary tract symptoms; G31.84 Mild cognitive impairment of uncertain or unknown etiology; J90 Pleural effusion, not elsewhere classified; G47.33 Obstructive sleep apnea (adult) (pediatric); Z95.5 Presence of coronary angioplasty implant and graft; Z79.899 Other long term (current) drug therapy; Z79.84 Long term (current) use of oral hypoglycemic drugs; Z79.01 Long term (current) use of anticoagulants; Z88.7 Allergy status to serum and vaccine; Z87.442 Personal history of urinary calculi; Z68.34 Body mass index [BMI] 34.0-34.9, adult; Z60.2 Problems related to living alone
CPT/HCPCS: 36415; 71045; 80048; 80053; 82803; 82962; 83605; 83735; 83880; 84484; 85025; 85610; 87636; 93005; 93306; 94660; 97116; 97163; 97166; 97530; 99285; G0378; J1650; J1939; Q9957

== ENCOUNTER 2025-01-22 15:19 | Emergency (ER) | payer MEDICARE, SELFPAY ==
[2025-01-22] VITALS (10 sets, daily range): BP systolic 94–138; BP diastolic 64–88; PULSE 84–96; RESP 14–27; TEMP 36.6–36.9; O2SAT 94–97; BMI 32.8
--- NOTE | 2025-01-22 15:23 | ECG_ITS ---
APPROVED REPORT Exam: Resting ECG HR:89 bpm ECG Measurements Heart Rate 89 AXES FL 262 P 64 QRSd 147 QRS -20 QT 390 T 100 QTc 436 Conclusion SINUS RHYTHM WITH FIRST DEGREE AV BLOCK WITH OCCASIONAL SUPRAVENTRICULAR PREMATURE COMPLEXES LEFT BUNDLE BRANCH BLOCK [120+ ms QRS DURATION, 80+ ms Q/S IN V1/V2, 85+ ms R IN I/aVL/V5/V6] ABNORMAL ECG UNCONFIRMED REPORT Electronically signed by : PRECIOUS FRANCO, 01/25/2025 23:45:40
--- NOTE | 2025-01-22 15:24 | PC.NURSE ---
Patients FSBS is 209.
--- NOTE | 2025-01-22 15:31 | XR_ITS ---
FINAL REPORT CLINICAL HISTORY: pulm edema vs infection, new O2 requirement COMPARISON: 08/13/2023 FINDINGS: PA and lateral views of the chest were obtained. The cardiac and mediastinal silhouettes are within normal limits. New bilateral lower lobe opacities, [id number], with small pleural effusions are favored to represent pneumonia but pulmonary edema is not excluded. There is no pneumothorax. No acute osseous abnormality is identified. IMPRESSION: New bilateral opacities with small pleural effusions favor pneumonia; pulmonary edema not excluded. Reviewed, Interpreted and Dictated by Judy Estrella MD Transcribed by Ludmila Feldman Authenticated and [facility]
--- NOTE | 2025-01-22 15:32 | HMH.EDCP ---
Discharge Plan Disposition Patient Disposition: Home, Self-Care Condition: Good Prescriptions Prescriptions: No Action atorvastatin 40 mg tablet 40 mg PO DAILY 90 Days Qty: 90 Patient Comments: TAKE 1 TABLET BY MOUTH AT BEDTIME duloxetine 60 mg capsule,delayed release(DR/EC) 60 mg PO DAILY donepezil [Aricept] 5 mg tablet 5 mg PO HS acetaminophen [Tylenol Extra Strength] 500 mg tablet 500 mg PO Q6HP PRN (Reason: Mild Pain (Scale Score 1-4)) cholecalciferol (vitamin D3) 125 mcg (5,000 unit) capsule 125 mcg PO DAILY ascorbic acid (vitamin C) 500 mg capsule 1,000 mg PO DAILY tamsulosin 0.4 MG capsule 0.4 mg PO HS metformin 1,000 mg tablet 500 mg PO BIDWMEAL amiodarone 200 mg tablet 200 mg PO DAILY midodrine 5 mg tablet 5 mg PO TID spironolactone 25 mg tablet 25 mg PO DAILY Eliquis 5 mg tablet 5 mg PO BID bumetanide 1 mg Tablet 1 mg PO DAILY 30 Days Qty: 30 0RF Referrals Follow up/Referrals: Provider,Referral, MD [Referring] - See instructions Activity Restrictions/Add. Instructions Additional Instructions/Restrictions: Continue taking all of your cardiac medications to include, Bumex, spironolactone and Eliquis. Your symptoms are likely related to fluid overload as demonstrated by the swelling in your legs and fluid on the lungs and your chest x-ray. You were treated with IV Bumex today. If you require increased amount of oxygen, have significant chest pain or concerned, please return for reevaluation. Clinical Impressions Clinical Impression: Acute exacerbation of CHF (congestive heart failure) Instructions Patient Instructions: Heart Failure Print Language Print Language: Salvadorean Discharge ED Provider: Amelia Gonzalez HPI General Chief Complaint: Shortness of Breath/Dyspnea Stated Complaint: chest pain Time Seen by Provider: 01/22/25 15:21 History of Present Illness HPI narrative: Steve King is an 89 y/o male presenting with shortness of breath. Pt reports shortness of breath starting at approximately 0930 this morning. 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 He denies prior oxygen requirement. He is unable to provide reason for oxygen initiation. Pt reports having CHF and does not take diuretics. Pt denies fevers, chills, increased cough or sputum, nausea, vomiting, bowel or bladder dysfunction. Related Data Home Medications ?Medication ?Instructions ?Recorded ?Confirmed tamsulosin 0.4 mg capsule 0.4 mg PO HS 03/12/18 01/11/25 duloxetine 60 mg capsule,delayed 60 mg PO DAILY 02/14/23 01/11/25 release acetaminophen 500 mg tablet 500 mg PO Q6HP PRN Mild Pain 04/16/23 01/11/25 (Tylenol Extra Strength) (Scale Score 1-4) ascorbic acid (vitamin C) 500 mg 1,000 mg PO DAILY 04/16/23 01/11/25 capsule atorvastatin 40 mg tablet 40 mg PO DAILY 90 days #90 tabs 04/16/23 01/11/25 cholecalciferol (vitamin D3) 125 125 mcg PO DAILY 04/16/23 01/11/25 mcg (5,000 unit) capsule donepezil 5 mg tablet (Aricept) 5 mg PO HS 04/16/23 01/11/25 amiodarone 200 mg tablet 200 mg PO DAILY 10/21/24 01/11/25 apixaban 5 mg tablet (Eliquis) 5 mg PO BID 10/21/24 01/11/25 metformin 1,000 mg tablet 500 mg PO BIDWMEAL 10/21/24 01/11/25 midodrine 5 mg tablet 5 mg PO TID 10/21/24 01/11/25 spironolactone 25 mg tablet 25 mg PO DAILY 10/21/24 01/11/25 Previous Rx's ?Medication ?Instructions ?Recorded bumetanide 1 mg tablet 1 mg PO DAILY 30 days #30 tabs 10/23/24 Allergies Allergy/AdvReac Type Severity Reaction Status Date / Time tetanus and diphtheria Allergy Intermediate I-HIVES Verified 12/11/24 08:06 toxoids (TETANUS & DIPHTHERIA TOXOIDS) [facility] Disclaimer: The information contained in this section may have been updated after the patient was seen, as this information can be updated by other users. 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 Diabetic neuropathy Diabetes Acquired hammertoe of right foot Acquired hammertoe of left foot Pneumonia Shortness of breath Hypertension High anion gap metabolic acidosis Cervicogenic headache Hearing loss Tinnitus of both ears Surgical History (Updated 01/11/25 @ 09:26 by Jericho Garcia MD) History of coronary artery stent placement History of appendectomy History of right hip replacement History of knee replacement Family History Other Unknown family medical history Social History Smoking Status: Never smoker alcohol intake: never substance use type: denies use current occupational status: retired Travel in the last 8 weeks?: None housing: house lives independently: Yes marital status: current occupational exposures/hazards: No caffeine: Yes Have you lived/traveled outside [place] in past 30 days?: No Contact w/someone who lives/traveled outside [place] past 30 days?: No Exposure to someone with infectious disease in past 14 days?: No Do you have a fever (greater than 100.4 F or 38 C)?: No Have you tested positive for COVID-19?: No Exposed to someone with COVID-19 in past 14 days?: No Do you have a sore throat?: No Do you have a cough?: No Do you have any weakness?: No Do you have any diarrhea?: No Are you experiencing any unusual bleeding?: No Do you have any muscle aches/pain?: No Do you have any abdominal pain?: No Are you experiencing loss of taste or smell?: No Other Medical History Have you received the Flu Vaccine for this season: No Have you received the Pneumonia Vaccine: No ROS Obtained: Yes All systems reviewed & no additional complaints except as documented Physical Exam General General appearance: alert and in no apparent distress Head Head exam: atraumatic Eye Eye exam: Present EOMI; Absent scleral icterus ENT ENT exam: Present normal exam Neck Neck exam: Present full ROM Expanded Neck Exam Neck exam focused ED: Absent JVD Chest Chest inspection: Present normal inspection Respiratory Respiratory exam: Present normal lung sounds bilaterally and other (2L NC); Absent respiratory distress, wheezes or accessory muscle use Cardiovascular Cardiovascular exam: Present regular rate and normal rhythm Abdominal Exam Abdominal exam: Present soft; Absent distention or tenderness exam: Present deferred Extremities Exam Extremities exam: Present full ROM and edema (R>L); Absent tenderness Back Exam Back exam: Present full ROM Neurological Exam Neurological exam: Present alert and oriented X3 Psychiatric Psychiatric exam: Present normal mood Skin Skin exam: Present warm and dry HEART Score HEART Score HEART Score assessment performed?: Yes HEART Score: 4 Critical Care Critical Care Time Critical Care Time: No Medical Decision Making Medical Records Medical records reviewed: Yes I reviewed the patient's medical records. Jose Antonio Inquiry Pt receiving controlled substance: No Vital Signs Vital Signs: 01/22/25 15:30 01/22/25 15:32 01/22/25 16:28 Temperature 98 F Temperature Source Oral Pulse Rate 84 91 H Pulse Rate [Right Radial] 87 Respiratory Rate 27 H 19 23 Blood Pressure 114/82 96/69 L Blood Pressure [Right Arm] 118/88 Blood Pressure Mean Blood Pressure Mean [Right Arm] 98 Blood Pressure Source Blood Pressure Source [Right Arm] Automatic Cuff Blood Pressure Position Blood Pressure Position [Right Arm] Supine 02 Sat by Pulse Oximetry 96 97 96 Oxygen Delivery Method Room Air Oxygen Flow Rate (LPM) 01/22/25 16:30 01/22/25 16:47 01/22/25 17:00 Temperature Temperature Source Pulse Rate 90 84 87 Pulse Rate [Right Radial] Respiratory Rate 26 H 22 14 Blood Pressure 94/64 L 102/69 L 113/75 Blood Pressure [Right Arm] Blood Pressure Mean 79 84 Blood Pressure Mean [Right Arm] Blood Pressure Source Blood Pressure Source [Right Arm] Blood Pressure Position Blood Pressure Position [Right Arm] 02 Sat by Pulse Oximetry 96 Oxygen Delivery Method Oxygen Flow Rate (LPM) 01/22/25 17:31 01/22/25 18:01 01/22/25 18:31 Temperature Temperature Source Pulse Rate 86 90 94 H Pulse Rate [Right Radial] Respiratory Rate 22 26 H 24 Blood Pressure 138/87 120/80 123/88 Blood Pressure [Right Arm] Blood Pressure Mean 102 Blood Pressure Mean [Right Arm] Blood Pressure Source Blood Pressure Source [Right Arm] Blood Pressure Position Blood Pressure Position [Right Arm] 02 Sat by Pulse Oximetry 97 96 Oxygen Delivery Method Oxygen Flow Rate (LPM) 01/22/25 18:58 Temperature 98.4 F Temperature Source Oral Pulse Rate 96 H Pulse Rate [Right Radial] Respiratory Rate 16 Blood Pressure 120/85 Blood Pressure [Right Arm] Blood Pressure Mean Blood Pressure Mean [Right Arm] Blood Pressure Source Automatic Cuff Blood Pressure Source [Right Arm] Blood Pressure Position Supine Blood Pressure Position [Right Arm] 02 Sat by Pulse Oximetry Oxygen Delivery Method Nasal Cannula Oxygen Flow Rate (LPM) 2 Lab Data Lab results reviewed: Yes I reviewed the patient's lab results. Labs: Lab Results 01/22/25 15:31: VBG pH 7.41, VBG pCO2 40.3, VBG pO2 38.4, VBG HCO3 24.7, VBG Total CO2 26.0, VBG O2 Saturation 69.8, VBG Base Excess 0.0, VBG Lactic Acid 1.6 01/22/25 15:50: WBC 6.9, RBC 3.65 L, Hgb 11.6 L, Hct 36.1 L, MCV 98.9 H, MCH 31.8 H, MCHC 32.1, RDW 14.3, Plt Count 287, MPV 9.8, Neut % (Auto) 69.4, Lymph % (Auto) 19.0, [place] % (Auto) 10.0 H, Eos % (Auto) 0.9, Baso % (Auto) 0.4, Neut # (Auto) 4.8, Lymph # (Auto) 1.3, [place] # (Auto) 0.7, Eos # (Auto) 0.1, Baso # (Auto) 0.0, D-Dimer 0.81 H, Sodium 134 L, Potassium 4.5, Chloride 102, Carbon Dioxide 29, Anion Gap 7.5, BUN 24 H, Creatinine 0.90, Estimated Creat Clear 90, Estimated GFR 80, Est GFR ( Amer) 97, Glucose 188 H, Calcium 8.9, Total Bilirubin 0.6, AST 16 L, ALT 14, Alkaline Phosphatase 96, Troponin I < 0.01, Total Protein 6.8, Albumin 3.9, Globulin 2.9, Albumin/Globulin Ratio 1.3 01/22/25 15:50 01/22/25 15:50 Response Orders (Tests/Meds): ED MEDICATIONS Discontinued Medications Generic Name Dose Route Start Last Admin Trade Name Freq PRN Reason Stop Dose Admin Bumetanide 1 mg 01/22/25 16:24 01/22/25 16:33 Bumetanide 1mg/4ml Vial IV 05/08/25 16:25 1 mg ONCE ONE Administration ORDERS Category Date Time Status CXR 2 view (NOT portable) [XR chest 2V] Stat Exams 01/22/25 15:31 Completed CBC w/Auto Diff [Complete Blood Count Auto Diff] Stat Lab 01/22/25 15:50 Completed CMP [Comprehensive Metabolic Panel] Stat Lab 01/22/25 15:50 Completed D-Dimer Stat Lab 01/22/25 15:50 Completed Trop I [Troponin I] Stat Lab 01/22/25 15:50 Completed VBG [Venous Blood Gas] Stat RT 01/22/25 15:31 Completed ECG Data Tracing #1: Attestation: I reviewed this ECG and interpreted as documented below: ECG Narrative: Sinus rhythm with rate of 89. Left bundle without modified sgarbossa criteria. No QTC prolongation. No evidence of acute ischemia. MDM Narrative Medical Decision Narrative: In summary, pt is an 89 y/o male presenting with shortness of breath. Differential diagnosis includes but not limited to, CHF exacerbation, ACS, PNA, PE, viral URI, among others. Pt reports new oxygen supplementation after recent CHF exacerbation. Pt is poor historian with regards to his home medications. Per my review of the patient's chart, he is to be on Bumex, Spironolactone, Eliquis for his CHF and afib. Today, pt has sensation of shortness of breath as well as mild lower extremity pitting edema R>L. Pt is saturating appropriately on 2L NC and has no evidence of distress. Most recent echo reported EF 30% which is unchanged from approximately a year ago. Pt evaluated with labs and CXR. CXR reviewed by me and significant for increased pulmonary congestion bilaterally, no acute consolidation or large pleural effusions. Labs reviewed and VBG had no significant findings. Slightly hyponatremic at 134. Patient ultimately treated with IV Bumex as he is likely not compliant at home due to managing his medications alone and not knowing that he is on a diuretic. Patient has no new oxygen requirement above the baseline he was started on recently. Patient ultimately discharged home with advice to continue his home medications that included spironolactone, Bumex and Eliquis for his chronic medical problems and CHF. Amelia Gonzalez MD
--- OUTSIDE RECORDS SUMMARY | 2025-01-22 16:00 | XMS_ITS | Data Portability ---
Author Organization [facility] ADMIN Address [address] [place] [phone] Assessment No assessment recorded. Plan of Treatment Reminders Order Date Submit Date Provider Last Modified By Organization Details Last Modified Time Details Appointments OV EST 15 2024 10:45A Bhumi Bonner M.D Not available Not available Not available Lab urinalysi s, dipstick [address] [facility], [address] [place] [address], [phone], 01/17/2023 12:56:48 culture, urine [address] (Lab Registration) , [address] [place] [address], [address], 11/16/2022 07:13:46 urinalysi s, microscop ic [address] [facility], [address] [place] [address], [phone], 11/16/2022 07:13:46 Referral None recorded. Procedures bladder scan (PROC) [address] [facility], [address] [place] [address], [phone], 11/16/2022 07:13:46 Surgeries None recorded. Imaging None recorded. Medication Orders finasteri de 5 mg tablet [address] [facility], [address] [place], [address], 12/02/2022 12:11:27 Patient TargetsNo targets recorded. Patient InstructionsNo instructions recorded. Reason for Referral None Reported. Results Created Date Observation Date Name Description Value Unit Range Abnormal Flag Note LastModifiedBy Organization Detail LastModifiedTime 11/16/19 23 11/15/2022 CULTU RE URINE W PRESU MP ID results RKM 11-16 1307 No Signi fican t Growt h at 1 Day [facility] 11-17 [address]14 [place] te:1 70,00 0 Colon y Count Gram Negat mingo Rods [facility] 11-17 715 [place] te:2 >100, 000 Colon y Count Enter ococc us Not Available [facility] (Pre-Op Clinic) [address] [place] [address] [place], [address], 11/17/2022 07:16:35 11/16/1911/15/2022 CULTU RE URINE W PRESU MP ID note Unles s other snyder noted testi ng perfo rmed at: [facility] [address] [place] [address] Brijesh flores MD Not Available [facility] (Pre-Op Clinic) [address] [place] [address] [place], [address], 11/17/2022 07:16:35 11/16/19 23 11/15/2022 CULTU RE URINE W PRESU MP ID culur ===== ===== ===== ===== ===== ===== ===== ===== ===== ===== ===== ===== ===== ===== ===== ===== ===== ===== ===== ===== ===== ===== ===== ===== CULTU RE NO.: [id number] Exam Statu s: Final Exam Type: [...] fican t Growt h at 1 Day [facility] 11-17 714 [place] te:1 70,00 0 Colon y Count Gram Negat mingo Rods [facility] 11-17 715 [place] te:2 >100, 000 Colon y Count Enter ococc us Not Available [facility] (Pre[facility]Op [facility]) [address] [place] [address] [place], [address], 11/18/2022 06:54:36 11/16/19 23 11/15/2022 CULTU RE URINE W PRESU MP ID note Unles s other snyder noted testi ng perfo rmed at: [facility] [address] [place] [address] Brijesh flores MD Not Available [facility] (Pre[facility]Op [facility]) [address] [place] [address] [place], [address], 11/18/2022 06:54:36 11/16/19 23 11/15/2022 urina lysis , micro scopi c GLUCOSE negati ve Not Available [facility] [address] [place] [address], [phone], 11/15/2022 15:33:11 11/16/19 23 11/15/2022 urina lysis , micro scopi c BILIRUBIN negati ve Not Available [facility] [address] [place] [address], [phone], 11/15/2022 15:33:11 11/16/19 23 11/15/2022 urina lysis , micro scopi c KETONE negati ve Not Available [facility] [address] [place] [address], [address], 11/15/2022 15:33:11 11/16/19 23 11/15/2022 urina lysis , micro scopi c SPECIFIC GRAVITY 1.025 Not Available [facility] [address] [place] [address], [phone], 11/15/2022 15:33:11 11/16/19 23 11/15/2022 urina lysis , micro scopi c BLOOD Negati ve Not Available [facility] [address] [place] [address], [phone], 11/15/2022 15:33:11 11/16/19 23 11/15/2022 urina lysis , micro scopi c pH 6.5 Not Available [facility] [address] [place], [address], 11/15/2022 15:33:11 11/16/19 23 11/15/2022 urina lysis , micro scopi c PROTEIN Negati ve Not Available [facility] [address] [place], [address], 11/15/2022 15:33:11 11/16/19 23 11/15/2022 urina lysis , micro scopi c UROBILINOGEN 1 Not Available [facility] [address] [place] [address], [phone], 11/15/2022 15:33:11 11/16/19 23 11/15/2022 urina lysis , micro scopi c NITRITE negati ve Not Available [facility] [address] [place] [address], [phone], 11/15/2022 15:33:11 11/16/19 23 11/15/2022 urina lysis , micro scopi c LEUKOCYTES Negati ve Not Available [facility] [address] [place] [address], [address], 11/15/2022 15:33:11 11/16/19 23 11/15/2022 urina lysis , micro scopi c COLOR Yellow Not Available [facility] [address] [place] [address], [address], 11/15/2022 15:33:11 11/16/19 23 11/15/2022 urina lysis , micro scopi c CHARACTER negati ve Not Available [facility] [address] [place] [address], [address], 11/15/2022 15:33:11 0311/15/2022 urina lysis , micro scopi c WBC negati ve Not Available [facility] [address] [place] [address], [address], 11/15/2022 15:33:11 11/16/19 23 11/15/2022 urina lysis , micro scopi c RBC negati ve Not Available [facility] [address] [place] [address], [address], 11/15/2022 15:33:11 11/16/19 23 11/15/2022 urina lysis , micro scopi c EP CELL negati ve Not Available [address], [address], 11/15/2022 15:33:11 11/16/19 23 11/15/2022 urina lysis , micro scopi c BACTERIA negati ve Not Available [address], [address], 11/15/2022 15:33:11 11/16/19 23 11/15/2022 urina lysis , micro scopi c YEAST negati ve Not Available [address], [address], 11/15/2022 15:33:11 11/16/19 23 11/15/2022 urina lysis , micro scopi c MUCUS negati ve Not Available [address], [address], 11/15/2022 15:33:11 11/16/19 23 11/15/2022 bladd er scan (PROC ) Calculated Residual Urine: 17ml Not Available [facility] [address] [place] [address], [address], 11/15/2022 14:44:51 01/18/20 23 01/17/2023 urina lysis , dipst ick Leukocytes (reference range) negati ve Not Available [facility] [address] [place] [address], [address], 01/17/2023 12:50:49 01/18/20 23 01/17/2023 urina lysis , dipst ick Nitrite (reference range:) negati ve Not Available [address], [address], 01/17/2023 12:50:49 01/18/20 23 01/17/2023 urina lysis , dipst ick Urobilinogen (reference range) 0.2 Not Available [address], [address], 01/17/2023 12:50:49 01/18/20 23 01/17/2023 urina lysis , dipst ick Protein (reference range) negati ve Not Available [address], [address], 01/17/2023 12:50:49 01/18/20 23 01/17/2023 urina lysis , dipst ick pH (reference range 5-8.5) 6.[address], [address], 01/17/2023 12:50:49 01/18/20 23 01/17/2023 urina lysis , dipst ick Blood (reference range:) negati ve Not Available [facility] [address] [place] [address], [address], 01/17/2023 12:50:49 01/18/2001/17/2023 urina lysis , dipst ick Specific [place] (reference range) 1.020 Not Available [address], [address], 01/17/2023 12:50:49 0501/17/2023 urina lysis , dipst ick Ketone (reference range) negati ve Not Available [facility] [address] [place] [address], [address], 01/17/2023 12:50:49 01/18/2001/17/2023 urina lysis , dipst ick Bilirubin (reference range) negati ve Not Available [address], [address], 01/17/2023 12:50:49 01/18/2001/17/2023 urina lysis , dipst ick Glucose (reference range) 100 Not Available [address], [address], 01/17/2023 12:50:49 01/18/2001/17/2023 urina lysis , dipst ick Color (reference range: yellow-brown ) Yellow Not Available [address], [address], 01/17/2023 12:50:49 Result Notes None recorded. Problems Name Problem SNOMED Code Status Onset Date Resolution Date Notes Provider Name and Address Organization Details Recorded Time Prostate nodule 7203397126078 09 Active 2022 SUJIT Hughes [facility] & [place] 14:42:57 Urinary incontinenc e 420459271 Active 2022 SUJIT Hughes [facility] & [place] 14:43:41 Benign prostatic hyperplasia 223645234 Active 2022 SUJIT Hughes [facility] & [place] 14:43:58 Problem Notes None recorded. Procedures Surgical History Date Name Laterality Status Provider Name and Address Organization Details Recorded Time Prostate Surgery completed Malena GRAY [facility] & [place] 11/15/2022 14:44:37 Imaging Results None recorded. Procedure Notes None recorded. Medical Equipment None Reported. Allergies Allergen ID Allergen Name Allergen Category Reaction Reaction Severity Criticality Documentation Date Start Date Code Code System Note Provider Name and Address Organization Details Recorded Time 66576 tetanus immune globulin, human medicatio n Not available Not available Not available 11/15/2022 00091 RxNorm SUJIT Hughes [facility] & [place] 3 14:42:37 57603 lisinopri l medicatio n Not available Not available Not available 11/15/2022 19680 RxNorm SUJIT Hughes [facility] & [place] 3 14:42:43 Medications Name Sig Start Date [...] Updated DateTime 11/15/2022 193.04 cm 34.3 kg/m2 242094.05 g 97 [degF] Malena Ruiz [facility] & [place] 11/15/2022 14:42:20 Date Recorded Body height Body mass index (BMI) Body weight Body temperature Provider Name and Address Organization Details Last Updated DateTime 01/17/2023 193.04 cm 34.3 kg/m2 462083.05 g 98 [degF] Jaycee Hammonds [facility] & [place] 01/17/2023 11:15:04 Social History None recorded. Functional Status None recorded. Mental Status None recorded. Family History Nothing Reported. Medical History No medical history recorded. Past Encounters Encounter ID Performer Location Encounter Start Date Encounter Closed Date Diagnosis/Indication Diagnosis SNOMED-CT Code Diagnosis ICD10 Code Diagnosis Note [id number] Constantino Bonner M.D [facility] [address] [place] [address] 11/15/2022 14:35:21 11/15/2022 15:19:57 Lower urinary tract symptoms due to benign prostatic hypertrophy 1315397254 9101 N40.1 will increase to bid flomaxhe has several bottleswil l start finasterid e 5mg although we thought he was on itRTC 2mo - discuss turp if n o better [id number] Constantino Bonner M.D [facility] [address] [place] [address] 01/17/2023 11:11:03 01/17/2023 12:56:17 Recurrent urinary tract infection 567558112 N39.0 pt is doing well and will repeat ucx in 6mo Health Concerns Section Related Observation LastModified by Organization Detai ls LastModified Time None Recorded Concern Status LastModified by Organization Details LastModified Time None Recorded Advance Directives Directive None Recorded Payers Insurance Date Sequence Insurance Name Policy Number Policy Whitaker Covered Member ID Whitaker Member ID Guarantor Name 11/15/2022 1 [facility] OPT[facility] (MEDICARE SUPPLEMENT) Steve King [id number] Steve King 11/15/[address] [facility] [id number] Steve King [id number] Steve King 11/15/2022 1 [place] Steve King [id number] Steve King 05/22/2024 2 [facility] OPT[facility] (MEDICARE SUPPLEMENT) Steve King [id number] Steve King 05/22/[address] [facility] (MEDICARE REPLACEMENT/A DVANTAGE - PPO) [id number] Steve King [id number] Steve King Notes Date Note Type Note [...] urinary tract infection intermittently Constantino Bonner M.D [address] [place] [address], [address], [place], [address], [facility] - [place] & [place] 12/02/2022 12:14:05 01/17/2023 text/html pt is here for follow up UTI-he has a decent stream and has improved over the past few monthshe has q 2 hr voidingpsa 0.86no blood in the urinepbx secondary to an abnormal prostate exam showed no evidence of cancer Constantino Bonner M.D [address] [place] [address], [address], [place], [address], [facility] [place] & [place] 01/18/2023 10:23:42
--- OUTSIDE RECORDS SUMMARY | 2025-01-22 16:00 | XMS_ITS | Data Portability ---
Author Organization SUJIT EMMETT [facility] Address [address] [place] [address] [address] [place] [address] Care Team Providers Care [employer] Name Role Phone LEE WASHINGTON Referring Provider Assessment No assessment recorded. Plan of Treatment Reminders Order Date Submit Date Provider Last Modified By Organization Details Last Modified Time Details Appointments None recorded. Lab None recorded. Referral None recorded. Procedures None recorded. Surgeries None recorded. Imaging None recorded. Medication Orders ipratropiu m bromide 42 mcg (0.06 %) nasal spray 2020 021 [employer] [facility], [address] [place] [address], [address], 17:06:13 Patient TargetsNo targets recorded. Patient Instructions Encounter Date Encounter Id Patient Instructions Last Modified By Organization Details Last Modified Time 01/07/2021 [id number] 1. Audiogram performed in office today - 2. RX: Ipratropium Ray nasal spray; 2 sprays in each nostril up to 3 times a day. 3. Discontinue Flonase nasal spray. 4. Recommended auto-inflating his ears on a regular basis. 5. Hearing aid evaluation recommended; son reported he ordered some hearing aids online that has yet to come in. Recommended trying those. 6. Follow up as needed. [email or web address] Not available 01/07/2021 14:49:08 terrible baselin e [...] Address Organization Details Recorded Time Large prostate 238749353 Active 2014 From [employer]ated [employer];Provi adia: Ha, Constantino;St atus: Active Not Available [facility] 6 09:06:29 Problem Notes None recorded. Procedures Surgical History Date Name Laterality Status Provider Name and Address Organization Details Recorded Time 01/08/20 21 Tympanogram completed NILSA RUBALCAVA AUD [address] [place], [address], [facility] 01/07/2021 14:37:28 01/08/20 Audiogram completed NILSA RUBALCAVA AUD [address] [place], [address], [facility] 01/07/2021 14:37:26 05/05/20 20 Electromyography (EMG) with Nerve Conduction Study (NCV) completed Richa Dietz (Nicky) [facility] 05/05/2020 16:02:13 Knee arthroscopy/surgery completed Re Dai [facility] 01/07/2021 13:48:20 Appendectomy completed Re Dai [facility] 01/07/2021 13:48:32 Back Surgery completed Re [facility] 01/07/2021 13:48:38 procedure on kidney completed Hayley stoddard [facility] 01/07/2021 13:55:12 procedure on shoulder completed Re [facility] 01/07/2021 13:57:17 Imaging Results Imaging Date Name Status LastModified by Organization Details LastModified Time 05/05/2020 electromyogram + nerve conduction study [id number] Information not available 05/06/2020 09:12:14 01/07/2021 audiogram completed [facility] Information no t available 01/10/2021 09:22:02 Procedure Notes None recorded. Medical Equipment None Reported. Allergies Allergen ID Allergen Name Allergen Category Reaction Reaction Severity Criticality Documentation Date Start Date Code Code System Note Provider Name and Address Organization Details Recorded Time 090225 Tetanus Toxoid medicatio n Not available Not available Not available 08/11/20162013 52604 UNK Comme nt: Shane ed By: Vi salazar Date: 014 4:40: 19 PM; Re Dai [facility] 13:41:33 Medications Name Sig Start Date Stop [...] bromide 42 mcg (0.06 %) nasal spray Singer 2 sprays 3 times a day by [...] Updated DateTime 01/07/2021 97.1 [degF] Re Dai [facility] 01/07/2021 13:40:55 Social History Question Answer Notes LastModified by Organizat ion Details LastModified Time Tobacco Smoking Status Never Smoker Re Dai null, [place] [facility] 01/07/2021 13:48:06 What Is Your Level Of Alcohol Consumption? None [email or web address] Information not available 01/07/2021 How Much Tobacco Do You Chew? None [email or web address] Information not available 01/07/2021 Sex: Unknown Functional Status None recorded. Mental Status None recorded. Family History Relationship Description Onset Age of this Age Resolved Age Notes LastModified by Organization Details LastModified Time Brother Hearing loss [email or web address] Not av ailable 01/07/2021 13:47:40 Brother Hypertensive disorder [email or web address] Not available 01/07 13:47:51 Brother Diabetes mellitus [email or web address] Not available 01/07 13:47:59 Mother Hypertensive disorder [email or web address] Not available 01/07 13:47:51 Mother Diabetes mellitus [email or web address] Not available 01/07 13:47:59 Medical History Condition Response Depression Y Anxiety Disorder Y Arthritis Y Acid Reflux (GERD) Y Cancer Y Ulcers Y Sleep Disorder Hypertension Y Past Encounters Encounter ID Performer Location Encounter Start Date Encounter Closed Date Diagnosis/Indication Diagnosis SNOMED-CT Code Diagnosis ICD10 Code Diagnosis Note [id number] [facility] [address] 12/21/2016 05:45:28 12/21/2016 05:45:28 [id number] KASSY RENDON MD NEUROLOGY [facility] [address] [facility] [place] [address] 05/05/2020 14:34:02 05/05/2020 16:08:04 Brachial plexopathy of right upper limb 8041304491 8679617 G54.0 Cervical radiculopathy 32403268 M54.12 Diabetic p eripheral neuropathy 032749950 E11.40 Bilateral carpal tunnel syndrome 0706128732 3595286 G56.03 Ulnar neur opathy of left arm 8446720862 37497 G56.22 [id number] MD SUJIT MARTE[facility] [address] [place] [address] 01/07/2021 13:08:53 01/07/2021 14:57:07 Dysfunction of bilateral eustachian tubes 1056819091 392509 H69.93 Sensorineu ral hearing loss of bilateral ears 429742125 H90.3 - Moderate to profound SNHL, right > left with 36% WDS on the right and 60% WDS on the left - 01/07/2021 Exposed to noise 0722791 W42.9XXA - 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 - 01/07/2021 Posterior rhinorrhea 758 33974 R09.82 Deviated nasal septum 12 3281503 J34.2 Hypertroph y of nasal turbinates 52272134 J34.3 Vasomotor rhinitis 97471 03 J30.0 - Ipratropiu m Ray nasal spray prescribed - 01/07/2021 [id number] NILSA RUBALCAVA, [facility] [place] [facility] [address] [place] [address] 01/07/2021 14:37:10 01/07/2021 14:38:57 Sensorineural hearing loss of bilateral ears 728118541 H90.3 Otalgia 37819712 H92.03 Health Concerns Section Related Observation LastModified by Organization Detai ls LastModified Time None Recorded Concern Status LastModified by Organization Details LastModified Time None Recorded Advance Directives Directive None Recorded Payers Insurance Date Sequence Insurance Name Policy Number Policy Whitaker Covered Member ID Whitaker Member ID Guarantor Name 04/17/2022 2 [facility]ALTHC[facility] OPTIONS (MEDICARE SUPPLEMENT) Steve Bell Fernando [id number] Steve King 01/11/2021 1 [facility] (MEDICARE REPLACEMENT/ ADVANTAGE - PPO) [id number] Steve Bell Fernando [id number] Steve Bell Fernando Notes Date Note Type [...] work for many years. VIC BUSTOS MD [address] [place] [address], [address], [facility] 01/07/2021 14:51:59
--- OUTSIDE RECORDS SUMMARY | 2025-01-22 16:00 | XMS_ITS | Continuity of Care Document ---
Author Organization [facility]. If a dditional information is needed, contact Health Information Management at [phone] Address [address] [place] [address] Phone Care Team Providers Care Assistant Import Manager Name Role Phone Unavailable Unavailable Unavailable Unavailable Unavailable Unavailable Problems Altered behavior Onset:12-Mar-2018 [place] Rina Status:Acute Functional Status Functional finding 19-Mar-2018 Functional finding 17-Mar-2018 Functional finding 17-Mar-2018 Functional finding 17-Mar-2018 Allergies and Adverse Reactions Tetanus&Diphtheria Toxoid(Al lergy) Onset: 12-Mar-2018 Reaction:Rash-Hives Medications furosemide 20 mg tablet;20 M G ORAL Daily Start:18-Mar-2018 Comments:20 mg PO DAILY potassium chloride 10 MEQ Ex tended Release Oral Tablet [K-Tab];20 MEQ ORAL Daily Start:18-Mar-2018 Comments:20 mEq PO DAILY buspirone 5 mg tablet;5 MG O RAL Three Times a Day Start:18-Mar-2018 Comments:5 mg PO TID gabapentin 400 MG Oral Capsu le [Neurontin];400 MG ORAL Two Times a Day Start:18-Mar-2018 Comments:400 mg PO BID celecoxib;200 MG ORAL Daily Start:18-Mar-2018 Comments:200 mg PO DAILY sitagliptin 100 mg tablet;10 0 MG ORAL Daily Start:18-Mar-2018 Comments:100 mg PO DAILY Glucophage;500 MG ORAL Two T imes a Day Start:18-Mar-2018 Comments:500 mg PO BID tamsulosin hydrochloride 0.4 MG Oral Capsule [Flomax];1 TAB ORAL Daily Start:18-Mar-2018 Comments:1 tab PO DAILY glyBURIDE 5 MG Oral Tablet;5 MG ORAL Daily Start:18-Mar-2018 Comments:5 mg PO DAILY simethicone 80 MG Chewable T ablet;80 MG ORAL Daily Start:18-Mar-2018 Comments:80 mg PO DAILY sertraline 50 MG Oral Tablet ;50 MG ORAL Daily Start:18-Mar-2018 Comments:50 mg PO DAILY Tolterodine Tartrate ER;4 MG ORAL Daily Start:18-Mar-2018 Comments:4 mg PO DAILY sitagliptin 100 mg tablet;10 0 MG ORAL Daily Start:12-Mar-2018 Status:Aborted Comments:100 mg PO DAILY glyBURIDE 5 MG Oral Tablet;5 MG ORAL Daily Start:12-Mar-2018 Status:Aborted Comments:5 mg PO DAILY amoxicillin;500 MG ORAL Thre e Times a Day Start:12-Mar-2018 Status:Aborted Comments:500 mg PO TID Bicarsim;80 MG ORAL Four Dada es a Day Start:12-Mar-2018 Status:Aborted Comments:80 mg PO QID celecoxib;200 MG ORAL Daily Start:12-Mar-2018 Status:Aborted Comments:200 mg PO DAILY sertraline 25 MG Oral Tablet ;25 MG ORAL Daily Start:12-Mar-2018 Status:Aborted Comments:25 mg PO DAILY Tolterodine Tartrate ER;4 MG ORAL Daily Start:12-Mar-2018 Status:Aborted Comments:4 mg PO DAILY pravastatin sodium;80 MG ORA L Daily Start:06-Sep-2015 Status:Aborted Comments:80 mg PO DAILY meclizine 25 mg chewable tab let;25 MG ORAL Daily Start:06-Sep-2015 Status:Aborted Comments:25 mg PO DAILY cephalexin;500 MG ORAL Daily Start:06-Sep-2015 Status:Aborted Comments:500 mg PO DAILY potassium chloride 10 MEQ Ex tended Release Oral Tablet [K-Tab];10 MEQ ORAL Daily Start:06-Sep-2015 Status:Aborted Comments:10 mEq PO DAILY Glucophage;500 MG ORAL Two T imes a Day Start:06-Sep-2015 Status:Aborted Comments:500 mg PO BID Zestril;2.5 MG ORAL Daily Start:06-Sep-2015 Status:Aborted Comments:2.5 mg PO DAILY furosemide 20 mg tablet;20 M G ORAL Daily Start:06-Sep-2015 Status:Aborted Comments:20 mg PO DAILY tamsulosin hydrochloride 0.4 MG Oral Capsule [Flomax];1 TAB ORAL Daily Start:06-Sep-2015 Status:Aborted Comments:1 tab PO DAILY Social History Smoking Status Never smoked tobacco Recorded: 19-Mar-2018
[2025-01-22 16:02] LABS: Lactate Venous 1.6 mmol/L (0.4-2.0); VBG HCO3 24.7 mmol/L (23-30); VBG Oxygen Saturation 69.8 % (50-70); VBG PCO2 40.3 mmol/L (35-51); VBG PH 7.41 mmol/L (7.31-7.41); VBG PO2 38.4 mmol/L (28-40)
[2025-01-22 16:04] LABS: Basophils % 0.4 % (0.1-2.0); Eosinophils # 0.1 Kmm3 (0.0-0.4); Eosinophils % 0.9 % (0.1-12.0); Hematocrit 36.1 % (42.0-52.0); Hemoglobin 11.6 g/dL (14.1-18.0); Immature Granulocytes # 0.02 10^3uL; Immature Granulocytes % 0.3 %; Lymphocytes # 1.3 K/mm3 (0.7-4.5); Mean Corpuscular HGB Conc 32.1 g/dL (31.8-35.4); Mean Corpuscular Hemoglobin 31.8 pg (27.0-31.2); Mean Corpuscular Volume 98.9 fl (80-94); Mean Platelet Volume 9.8 fl (7.4-10.4); Monocytes # 0.7 K/mm3 (0.1-1.0); Neutrophils # 4.8 K/mm3 (1.8-7.8); Neutrophils % 69.4 % (37.0-80.0); Nucleated Red Blood Cells # 0 10^3/uL; Nucleated Red Blood Cells % 0 %; Platelet Count 287 K/mm3 (142-424); Red Blood Count 3.65 M/mm3 (4.60-6.20); Red Cell Distribution Width 14.3 % (11.5-17.5); Red Cell Distribution Width-SD 51.6 fL; White Blood Count 6.9 K/mm3 (4.8-10.8)
[2025-01-22 16:10] LABS: Alanine Aminotransferase 14 U/L (12-78); Albumin Level 3.9 g/dl (3.5-5.0); Albumin/Globulin Ratio 1.3 (1.1-1.8); Alkaline Phosphatase 96 U/L (38-126); Anion Gap 7.5 mEq/L (5-15); Aspartate Amino Transferase 16 U/L (17-59); Bilirubin,Total 0.6 mg/dl (0.2-1.3); Blood Urea Nitrogen 24 mg/dl (9-20); Calcium 8.9 mg/dl (8.4-10.2); Carbon Dioxide 29 mmol/L (22.0-30.0); Chloride 102 mmol/L (98-107); Creatinine Clearance Estimated 90 mL/min (50-200); Estimated Glomerular Filt Rate 80 ml/min (>60); GFR (African American) 97 ML/MIN (>60); Globulin 2.9 g/dL (1.3-3.2); Glucose 188 mg/dl (74-100); Potassium 4.5 mmoL/L (3.5-5.1); Sodium 134 mmol/L (136-145); Total Protein,Serum 6.8 g/dl (6.3-8.2)
[2025-01-22 16:15] LABS: D-Dimer 0.81 ug/mL (0.0-0.5)
[2025-01-22 16:27] LABS: Troponin I < 0.01 ng/ml (0.00-0.034)
[2025-01-22] MEDS: BUMETANIDE 1MG/4ML VIAL 1 MG IV (16:33)
--- NOTE | 2025-01-22 17:33 | PC.NURSE ---
rounded on patient, no needs voiced at this time.
--- NOTE | 2025-01-22 17:38 | PC.NURSE ---
Called Patients son to come pick him up and he alex that he would head this way.
--- NOTE | 2025-01-22 18:02 | PC.NURSE ---
pt rounded on empty 1000 ml of urine, no other needs at this time.
== END 2025-01-22 18:59 | disposition home or self-care (01) ==
PROVIDERS: Emergency Provider Student in an Organized Health Care Education/Training Program; PCP Family Medicine
DX: R06.02 Shortness of breath (principal); I50.9 Heart failure, unspecified; I11.0 Hypertensive heart disease with heart failure; Z79.01 Long term (current) use of anticoagulants; Z99.81 Dependence on supplemental oxygen
CPT/HCPCS: 71046; 80053; 82803; 84484; 85025; 85378; 93005; 96374; 99284; J1939

== ENCOUNTER 2025-02-14 16:58 | Observation (INO) | payer MEDICARE, SELFPAY ==
[2025-02-14 17:07] VITALS: BP 85/53; PULSE 62; RESP 18; TEMP 36.7; O2SAT 95; BMI 30.5
[2025-02-14 17:17] VITALS: BP 128/110; PULSE 69
--- NOTE | 2025-02-14 17:19 | HMH.EDGENADL ---
Discharge Plan Disposition Patient Disposition: Admitted Prescriptions Prescriptions: No Action atorvastatin 40 mg tablet 40 mg PO DAILY 90 Days Qty: 90 Patient Comments: TAKE 1 TABLET BY MOUTH AT BEDTIME cyproheptadine 4 mg tablet 4 mg PO HS Qty: 90 1RF duloxetine 60 mg capsule,delayed release(DR/EC) 60 mg PO DAILY donepezil [Aricept] 5 mg tablet 5 mg PO HS acetaminophen [Tylenol Extra Strength] 500 mg tablet 500 mg PO Q6HP PRN (Reason: Mild Pain (Scale Score 1-4)) cholecalciferol (vitamin D3) 125 mcg (5,000 unit) capsule 125 mcg PO DAILY ascorbic acid (vitamin C) 500 mg capsule 1,000 mg PO DAILY tamsulosin 0.4 MG capsule 0.4 mg PO HS metformin 1,000 mg tablet 500 mg PO BIDWMEAL amiodarone 200 mg tablet 200 mg PO DAILY midodrine 5 mg tablet 5 mg PO TID spironolactone 25 mg tablet 25 mg PO DAILY Eliquis 5 mg tablet 5 mg PO BID bumetanide 1 mg Tablet 1 mg PO DAILY 30 Days Qty: 30 0RF Referrals Follow up/Referrals: Stephen Chen MD [Primary Care Provider, Medical] - See instructions Clinical Impressions Clinical Impression: Acute pain of right hip, Effusion of right hip Print Language Print Language: Italian Discharge ED Provider: Marilyn Washington General Adult HPI <Marilyn Washington MD - Last Filed: 02/14/25 23:35> General Chief complaint: PAIN Stated complaint: right hip pain Time Seen by Provider: 02/14/25 18:29 History of Present Illness HPI narrative: Patient is a 89-year-old male history is obtained from him and his son. He is somewhat of a poor historian. States that he had a hip replaced in [address] Shad Sommer had postoperative complication and had prolonged IV antibiotics. States he never got better at that time. States he is here today with increased pain and swelling and redness over the lateral aspect of his right hip. Denies any fevers or chills or any systemic signs or symptoms of illness. Related Data Home Medications ?Medication ?Instructions ?Recorded ?Confirmed tamsulosin 0.4 mg capsule 0.4 mg PO HS 03/12/18 02/14/25 duloxetine 60 mg capsule,delayed 60 mg PO DAILY 02/14/23 02/14/25 release acetaminophen 500 mg tablet 500 mg PO Q6HP PRN Mild Pain 04/16/23 02/14/25 (Tylenol Extra Strength) (Scale Score 1-4) ascorbic acid (vitamin C) 500 mg 1,000 mg PO DAILY 04/16/23 02/14/25 capsule atorvastatin 40 mg tablet 40 mg PO DAILY 90 days #90 tabs 04/16/23 02/14/25 cholecalciferol (vitamin D3) 125 125 mcg PO DAILY 04/16/23 02/14/25 mcg (5,000 unit) capsule donepezil 5 mg tablet (Aricept) 5 mg PO HS 04/16/23 02/14/25 amiodarone 200 mg tablet 200 mg PO DAILY 10/21/24 02/04/25 apixaban 5 mg tablet (Eliquis) 5 mg PO BID 10/21/24 02/14/25 metformin 1,000 mg tablet 500 mg PO BIDWMEAL 10/21/24 02/14/25 midodrine 5 mg tablet 5 mg PO TID 10/21/24 02/14/25 spironolactone 25 mg tablet 25 mg PO DAILY 10/21/24 02/04/25 Previous Rx's ?Medication ?Instructions ?Recorded bumetanide 1 mg tablet 1 mg PO DAILY 30 days #30 tabs 10/23/24 cyproheptadine 4 mg tablet 4 mg PO HS headache #90 tabs 02/04/25 Allergies Allergy/AdvReac Type Severity Reaction Status Date / Time tetanus and diphtheria Allergy Intermediate I-HIVES Verified 02/04/25 11:48 toxoids (TETANUS & DIPHTHERIA TOXOIDS) <DES Castañeda - Last Filed: > General Mode of Arrival: Wheelchair Source of Information: Patient Description of Symptoms (Recalled from ER Triage Doc. by RN): Patient to ED in wheelchair with complaints of right him pain. Patient states that he has a knot on right him that is becoming larger and now causing increased pain radiating down his right leg. Patient states that he is ambulatory at home but today he is unable to ambulate. Patient denies fall, pain 06/26 [facility] <Marilyn Washington MD - Last Filed: 02/14/25 23:35> [facility] Medical History History of cardioversion Shingles Kidney stones Atrial fibrillation Allergic rhinitis HFrEF (heart failure with reduced ejection fraction) BMI greater than 30 BPH (benign prostatic hyperplasia) Enlarged prostate Depression CHF (congestive heart failure) Episodic migraine Initial good response to Qulipta but recurrent cervicogenic headaches. Continue Qulipta for now for episodic migraine but need further evaluation of cervicogenic component. NIGHAT (obstructive sleep apnea) He has history of severe NIGHAT, nocturnal hypoxemia currently on ASV and O2 at night, ([facility]?sleep center, Dr. Stephani Delgado). 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 (mild cognitive impairment) with memory loss Diabetic neuropathy Diabetes Acquired hammertoe of right foot Acquired hammertoe of left foot Pneumonia Shortness of breath Hypertension High anion gap metabolic acidosis Cervicogenic headache Hearing loss Tinnitus of both ears Surgical History History of coronary artery stent placement History of appendectomy History of right hip replacement History of knee replacement Family History Other Unknown family medical history Social History Smoking Status: Never smoker alcohol intake: never substance use type: denies use current occupational status: retired Travel in the last 8 weeks?: None housing: house lives independently: Yes marital status: current occupational exposures/hazards: No caffeine: Yes Have you lived/traveled outside [place] in past 30 days?: No Contact w/someone who lives/traveled outside US past 30 days?: No Exposure to someone with infectious disease in past 14 days?: No Do you have a fever (greater than 100.4 F or 38 C)?: No Have you tested positive for COVID-19?: No Exposed to someone with COVID-19 in past 14 days?: No Do you have a sore throat?: No Do you have a cough?: No Do you have any weakness?: No Do you have any diarrhea?: No Are you experiencing any unusual bleeding?: No Do you have any muscle aches/pain?: No Do you have any abdominal pain?: No Are you experiencing loss of taste or smell?: No <DES Castañeda Last Filed: > [facility] Disclaimer: The information contained in this section may have been updated after the patient was seen, as this information can be updated by other users. Other Medical History Have you received the Flu Vaccine for this season: No Have you received the Pneumonia Vaccine: Yes <Marilyn Washington MD - Last Filed: 02/14/25 23:35> ROS Obtained: Yes All systems reviewed & no additional complaints except as documented Physical Exam <Marilyn Washington MD - Last Filed: 02/14/25 23:35> General General appearance: alert Respiratory Respiratory exam: Present normal lung sounds bilaterally Cardiovascular Cardiovascular exam: Present regular rate Expanded Lower Extremity Exam Right: Leg image:  1. Large right fluctuant and erythematous mass noted overlying chronically erythematous and hypertrophic incision from old hip replacement surgery. No significant tenderness in this area Neurological Exam Neurological exam: Present alert and oriented X3 Medical Decision Making <Mariyln Washington MD - Last Filed: 02/14/25 23:35> Jose Antonio Inquiry Pt receiving controlled substance: No Vital Signs: 02/14/25 17:07 02/14/25 17:17 Temperature 98.1 F Temperature Source Oral Pulse Rate 69 Pulse Rate [Right] 62 Respiratory Rate 18 Blood Pressure 128/110 H Blood Pressure [Right Arm] 85/53 L Blood Pressure Mean [Right Arm] 63 Blood Pressure Source Automatic Cuff Blood Pressure Source [Right Arm] Automatic Cuff Blood Pressure Position [Right Arm] Sitting 02 Sat by Pulse Oximetry 95 Oxygen Delivery Method Room Air Lab Data Lab results reviewed: Yes I reviewed the patient's lab results. Lab Results 02/14/25 20:07: WBC 9.8, RBC 4.31 L, Hgb 13.6 L, Hct 40.9 L, MCV 94.9 H, MCH 31.6 H, MCHC 33.3, RDW 13.6, Plt Count 317, MPV 9.5, Neut % (Auto) 63.9, Lymph % (Auto) 25.0, [place] % (Auto) 8.9, Eos % (Auto) 1.5, Baso % (Auto) 0.5, Neut # (Auto) 6.3, Lymph # (Auto) 2.5, [place] # (Auto) 0.9, Eos # (Auto) 0.2, Baso # (Auto) 0.1, ESR 25 H, Sodium 137, Potassium 5.4 H, Chloride 94 L, Carbon Dioxide 36 H, Anion Gap 12.4, BUN 69 H, Creatinine 1.50 H, Estimated Creat Clear 56, Estimated GFR 44 L, Est GFR ( Amer) 54 L, Glucose 174 H, Lactate 1.4, Calcium 9.9, Total Bilirubin 0.4, AST 19, ALT 14, Alkaline Phosphatase 110, C-Reactive Protein 35.1 H, Total Protein 8.2, Albumin 4.3, Globulin 3.9 H, Albumin/Globulin Ratio 1.1 02/14/25 20:07 02/14/25 20:07 Orders (Tests/Meds): ED MEDICATIONS Generic Name Dose Route Start Last Admin Trade Name Freq PRN Reason Stop Dose Admin Sodium Chloride 10 ml 02/14/25 21:19 02/14/25 21:20 Sodium Chloride 0.9% 10ml Syr (Rad Only) IV 03/16/25 21:18 10 ml NEEDED PRN Administration Maintain IV Site Discontinued Medications Generic Name Dose Route Start Last Admin Trade Name Freq PRN Reason Stop Dose Admin Iopamidol 75 ml 02/14/25 21:19 02/14/25 21:20 Iopamidol-370 (76%);100ml Bottle IV 02/14/25 21:20 75 ml ONCE ONE Administration ORDERS Category Date Time Status CT pelvis w con Stat Cat Scan 02/14/25 19:02 Completed POCUS Point of Care (ER Only) Stat Exams 02/14/25 18:53 Completed CBC w/Auto Diff [Complete Blood Count Auto Diff] Stat Lab 02/14/25 20:07 Completed CMP [Comprehensive Metabolic Panel] Stat Lab 02/14/25 20:07 Completed CRP [C-Reactive Protein] Stat Lab 02/14/25 20:07 Completed ESR [Erythrocyte Sedimentation Rate] Stat Lab 02/14/25 20:07 Completed Lactic Acid Stat Lab 02/14/25 20:07 Completed Blood Culture Stat Micro 02/14/25 20:20 Received Medical Decision Narrative: 89-year-old with above history and physical who demonstrates a large and acute right-sided hip swelling that appears to be largely fluctuant. Bedside ultrasound was performed see procedure note this shows a large anechoic fluid collection with homogenous debris within it. Differential includes seroma, hematoma, abscess etc. Will get a contrasted CT scan inflammatory markers blood cultures and reassess. 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 Reassessment 956 patient remained stable no evidence of sepsis labs reviewed which show mild inflammatory marker elevations which are nonspecific. CT scan was performed I personally interpreted which shows a large nonspecific fluid collection that is surrounding the proximal aspect of the femoral prosthesis measurements are 12 x 10 x 8 cm on my assessment there is some mild rim-enhancing fluid collection differential still remains very broad and does still include possible infection in particular prosthesis infection and septic joint itself. I discussed the case with our orthopedic surgeon he does not do revisions of total hips and suggest speak with Dr. Shad Sommer and the patient the patient's family refused to be evaluated further by that physician because they do not like them. Therefore we will discuss the case with [facility] and see if they are willing to evaluate this patient further. I ultimately discussed the case with [facility] and [facility] of all of whom are on divert. Patient was unwilling to go to Dr. Shad [facility]. Ultimately I spoke to multiple providers at [facility] and they were able to put the patient on a waiting list and the patient was then admitted to hospital medicine here they believe they will be able to get the patient to [facility] tomorrow. Patient family and hospital medicine are all agreeable to this plan. <DES Castañeda - Last Filed: > Medical Records Screening: Per USPSTF and CDC recommendations, given the prevalence of disease in our region, it is our hospital?s policy to screen for HIV and viral Hepatitis for all patients aged 18 and over and those with ongoing risk factors. Vital Signs: 02/14/25 17:07 02/14/25 17:17 Temperature 98.1 F Temperature Source Oral Pulse Rate 69 Pulse Rate [Right] 62 Respiratory Rate 18 Blood Pressure 128/110 H Blood Pressure [Right Arm] 85/53 L Blood Pressure Mean [Right Arm] 63 Blood Pressure Source Automatic Cuff Blood Pressure Source [Right Arm] Automatic Cuff Blood Pressure Position [Right Arm] Sitting 02 Sat by Pulse Oximetry 95 Oxygen Delivery Method Room Air Lab Data Lab Results 02/14/25 20:07: WBC 9.8, RBC 4.31 L, Hgb 13.6 L, Hct 40.9 L, MCV 94.9 H, MCH 31.6 H, MCHC 33.3, RDW 13.6, Plt Count 317, MPV 9.5, Neut % (Auto) 63.9, Lymph % (Auto) 25.0, [place] % (Auto) 8.9, Eos % (Auto) 1.5, Baso % (Auto) 0.5, Neut # (Auto) 6.3, Lymph # (Auto) 2.5, [place] # (Auto) 0.9, Eos # (Auto) 0.2, Baso # (Auto) 0.1, ESR 25 H, Sodium 137, Potassium 5.4 H, Chloride 94 L, Carbon Dioxide 36 H, Anion Gap 12.4, BUN 69 H, Creatinine 1.50 H, Estimated Creat Clear 56, Estimated GFR 44 L, Est GFR ( Amer) 54 L, Glucose 174 H, Lactate 1.4, Calcium 9.9, Total Bilirubin 0.4, AST 19, ALT 14, Alkaline Phosphatase 110, C-Reactive Protein 35.1 H, Total Protein 8.2, Albumin 4.3, Globulin 3.9 H, Albumin/Globulin Ratio 1.1 Orders (Tests/Meds): ED MEDICATIONS Generic Name Dose Route Start Last Admin Trade Name Freq PRN Reason Stop Dose Admin Sodium Chloride 10 ml 02/14/25 21:19 02/14/25 21:20 Sodium Chloride 0.9% 10ml Syr (Rad Only) IV 03/16/25 21:18 10 ml NEEDED PRN Administration Maintain IV Site Discontinued Medications Generic Name Dose Route Start Last Admin Trade Name Freq PRN Reason Stop Dose Admin Iopamidol 75 ml 02/14/25 21:19 02/14/25 21:20 Iopamidol-370 (76%);100ml Bottle IV 02/14/25 21:20 75 ml ONCE ONE Administration ORDERS Category Date Time Status CT pelvis w con Stat Cat Scan 02/14/25 19:02 Completed POCUS Point of Care (ER Only) Stat Exams 02/14/25 18:53 Completed CBC w/Auto Diff [Complete Blood Count Auto Diff] Stat Lab 02/14/25 20:07 Completed CMP [Comprehensive Metabolic Panel] Stat Lab 02/14/25 20:07 Completed CRP [C-Reactive Protein] Stat Lab 02/14/25 20:07 Completed ESR [Erythrocyte Sedimentation Rate] Stat Lab 02/14/25 20:07 Completed Lactic Acid Stat Lab 02/14/25 20:07 Completed Blood Culture Stat Micro 02/14/25 20:20 Received Procedures <Marilyn Washington MD - Last Filed: 02/14/25 23:35> Miscellaneous Procedure Procedure Performed: Limited soft tissue ultrasound Indication: Soft tissue swelling and pain Identified structures: Location: Over the right greater trochanter region Findings: There is a large anechoic and homogenous debris fluid collection with surrounding cobblestoning measurements are greater than 10 cm x 5 cm on cursory exam Impression: Large nonspecific fluid collection overlying the right hip Images were saved to permanent archive The study was technically adequate Soft Tissue CPT Codes: CPT Neck: 99695-92 CPT Upper extremity: 32245-26 CPT Axilla: 55453-82 CPT Chest wall: 87561-46 CPT Breast: 95442-64-HB/LT (complete), 48841-23-EN/LT (limited), CPT Upper Back: 40156-51 CPT Lower Back: 07196-09 CPT Abdominal Wall: 09283-47 CPT Pelvic Wall: 19677-05 CPT Lower Extremity: 61303-20 CPT Other Soft Tissue: 66898-55 This study was performed by me, and I personally interpreted all images/videos. Based on my clinical judgement, these images were adequate and did not necessitate further imaging. Critical Care <Marilyn Washington MD - Last Filed: 02/14/25 23:35> Critical Care Time Critical Care Time: Yes Attestation: On 02/14/25, the high probability of a clinically significant, sudden or life threatening deterioration of the following system(s) required my full and direct attention, intervention and personal management. The time I documented below is in addition to time spent performing reported procedures but includes the following listed in this critical care notation. Total Time Total Critical Care Time: 35
--- NOTE | 2025-02-14 19:02 | CT_ITS ---
PROCEDURE INFORMATION: Exam: CT Pelvis With Contrast Exam date and time: 02/14/2025 9:20 PM Age: 89 years old Clinical indication: Other: Right hip large fluid collection; Additional info: Right hip large fluid collection, 24 hrs, h/o MRSA TECHNIQUE: Imaging protocol: Computed tomography of the pelvis with contrast. Radiation optimization: All CT scans at this facility use at least one of these dose optimization techniques: automated exposure control; mA and/or kV adjustment per patient size (includes targeted exams where dose is matched to clinical indication); or iterative reconstruction. Contrast material: ISOVUE; Contrast volume: 75 ml; Contrast route: IV; COMPARISON: CT ANGIO ABDOMEN PELVIS 03/22/2024 6:46 PM FINDINGS: Intestine: Visualized small and large intestine are unremarkable. Appendix: No evidence of appendicitis. Intraperitoneal space: Unremarkable. No free air. No significant fluid collection. Lymph nodes: Unremarkable. No enlarged lymph nodes. Reproductive: The prostate gland is enlarged. Urinary bladder: Normal. No mass. Bones/joints: A right total hip prosthesis is noted in anatomic alignment. There is no acute osseous finding. Moderate to severe degenerative changes of the left hip are noted. There are severe degenerative changes of the L4-L5 and L5-S1 levels. Soft tissues: There is a complex fluid collection surrounding the right hip extending cranially between the gluteus medius and minimus muscles and caudally anterior to the gluteus erlin muscle. The component posterolateral to the trochanteric region has axial dimensions of approximately 4.0 x 12.0 cm. The component between the gluteus medius and minimus muscles has axial dimensions of approximately 3.7 x 7.4 cm. There is a thickened capsule present. Subcutaneous edematous changes are noted laterally along the right hip and proximal thigh. IMPRESSION: Prominent complex fluid collection surrounding the right total hip prosthesis. Findings suggest a synovial cyst although an infectious process is not excluded and the exact etiology is undetermined. No high density material is present to suggest metal debris. No foci of air are evident. Further evaluation with aspiration is recommended.
[2025-02-14 20:19] LABS: Basophils # 0.1 K/mm3 (0-0.2); Basophils % 0.5 % (0.1-2.0); Eosinophils # 0.2 Kmm3 (0.0-0.4); Eosinophils % 1.5 % (0.1-12.0); Hematocrit 40.9 % (42.0-52.0); Hemoglobin 13.6 g/dL (14.1-18.0); Immature Granulocytes # 0.02 10^3uL; Immature Granulocytes % 0.2 %; Lymphocytes # 2.5 K/mm3 (0.7-4.5); Mean Corpuscular HGB Conc 33.3 g/dL (31.8-35.4); Mean Corpuscular Hemoglobin 31.6 pg (27.0-31.2); Mean Corpuscular Volume 94.9 fl (80-94); Mean Platelet Volume 9.5 fl (7.4-10.4); Monocytes # 0.9 K/mm3 (0.1-1.0); Monocytes % 8.9 % (1.7-9.3); Neutrophils # 6.3 K/mm3 (1.8-7.8); Neutrophils % 63.9 % (37.0-80.0); Nucleated Red Blood Cells # 0 10^3/uL; Nucleated Red Blood Cells % 0 %; Platelet Count 317 K/mm3 (142-424); Red Blood Count 4.31 M/mm3 (4.60-6.20); Red Cell Distribution Width 13.6 % (11.5-17.5); Red Cell Distribution Width-SD 47.9 fL; White Blood Count 9.8 K/mm3 (4.8-10.8)
[2025-02-14 20:25] LABS: Albumin Level 4.3 g/dl (3.5-5.0); Chloride 94 mmol/L (98-107); Sodium 137 mmol/L (136-145)
[2025-02-14 20:26] LABS: Potassium 5.4 mmoL/L (3.5-5.1)
[2025-02-14 20:28] LABS: Alanine Aminotransferase 14 U/L (12-78); Albumin/Globulin Ratio 1.1 (1.1-1.8); Alkaline Phosphatase 110 U/L (38-126); Anion Gap 12.4 mEq/L (5-15); Aspartate Amino Transferase 19 U/L (17-59); Bilirubin,Total 0.4 mg/dl (0.2-1.3); Blood Urea Nitrogen 69 mg/dl (9-20); Carbon Dioxide 36 mmol/L (22.0-30.0); Creatinine Clearance Estimated 56 mL/min (50-200); Estimated Glomerular Filt Rate 44 ml/min (>60); GFR (African American) 54 ML/MIN (>60); Globulin 3.9 g/dL (1.3-3.2); Lactic Acid 1.4 mmol/L (0.7-2.1); Total Protein,Serum 8.2 g/dl (6.3-8.2)
[2025-02-14 20:29] LABS: Calcium 9.9 mg/dl (8.4-10.2); Glucose 174 mg/dl (74-100)
[2025-02-14 20:34] LABS: C-Reactive Protein 35.1 mg/L (0-4)
[2025-02-14 21:17] LABS: Erythrocyte Sedimentation Rate 25 mm/hr (0-20)
[2025-02-14] MEDS: SODIUM CHLORIDE 0.9% 10ML SYR (RAD ONLY) 10 ML IV (21:20)
[2025-02-14] MEDS: IOPAMIDOL-370 (76%);100ML BOTTLE 75 ML IV (21:20)
--- NOTE | 2025-02-14 22:14 | PC.NURSE ---
Contacted [facility] over transfer, they stated they have a waitlist. Patient is waitlisted
--- NOTE | 2025-02-14 22:23 | PC.NURSE ---
Spoke with [facility] for transfer. they have no beds at this time.
[2025-02-15] VITALS (7 sets, daily range): BP systolic 103–121; BP diastolic 65–77; PULSE 70–88; RESP 14–20; TEMP 36.4–37; O2SAT 91–96; BMI 30.7
--- NOTE | 2025-02-15 00:25 | P.HP_ITS ---
<Statement entered by Eugenio Omer MD - 02/15/25 13:19> Rounded on patient after nurse practitioner. Personally examined and interviewed patient. Agree with exam findings and care plan as documented. Rounded on patient the morning. Appears stable. Mild right hip pain. No warmth or redness. Awaiting transfer to higher level of care for further management. Ordered CBC, CMP, magnesium, ESR and CRP for the morning in case patient does not transfer to monitor inflammation and white count. Holding on antibiotics at this time. Does not appear systemically ill History of Present Illness *Admission Date: 02/15/25 *Reason for visit:: Fluid accumulation around right hip prosthesis *History of present illness: Mr. German an 89-year-old who had his hip replaced approximately 2 years ago in [place]. Patient has developed a fluid-filled pocket to the right hip which is now enlarging.. Patient states that fluid pocket has been there but much smaller for the past 2 years. 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 Patient states his original physician Dr. Hayes that he refused to go back to be seen by him. The ER provider talked with him about that this would be the simplest thing to do but since he did not want to go and told his family that he was not going to go back to them the ER doctor has tried to have him transferred to a different point. Orthopedics was consulted here but they do not deal with hip revisions., ER provider tried [facility] and [facility] in [place] and all of them are totally on divert. The ER doctor was able to find [facility] in [facility], that is willing to accept him. The ER physician talked with the orthopedic they are on- call a [facility], that is willing to accept him once a bed is ready. The ER doctor and myself spoke with the young lady by the name of Saba, who is the automated logistics specialist.. Her phone #[phone], I personally spoke with her and she did asked that we do send a facesheet and fax to [phone]. That the soonest they had a bed after discharge is tomorrow that they would have a place for him. .Talking with the patient about any other changes he is in no pain he has not run a fever. Just that the fact that the fluid pocket is enlarging immensel the only problem he noted to me is that sometimes he goes 3's to 5 days without having a bowel movement and has been taking Duca locks and feels that it is getting ready to work. He also wears a depends he had been on 2 diuretics in the past now only on 1 and has better control of his urine. Besides that he had no other complaints Plan at this time to keep the patient comfortable monitor him for any changes and to hopefully be able to transfer him to the [facility] so that this fluid accumulation can be looked at. Please refer to CT scan results [facility] Disclaimer: The information contained in this section may have been updated after the patient was seen, as this information can be updated by other users. 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 Diabetic neuropathy Diabetes Acquired hammertoe of right foot Acquired hammertoe of left foot Pneumonia Shortness of breath Hypertension High anion gap metabolic acidosis Cervicogenic headache Hearing loss Tinnitus of both ears Surgical History History of coronary artery stent placement History of appendectomy History of right hip replacement History of knee replacement Family History Other Unknown family medical history Social History (Updated 02/15/25 @ 03:35 by Sharmin Calix RN) Smoking Status: Never smoker alcohol intake: never substance use type: denies use current occupational status: retired Travel in the last 8 weeks?: None housing: house lives independently: Yes marital status: current occupational exposures/hazards: No caffeine: Yes Have you lived/traveled outside US in past 30 days?: No Contact w/someone who lives/traveled outside US past 30 days?: No Exposure to someone with infectious disease in past 14 days?: No Do you have a fever (greater than 100.4 F or 38 C)?: No Have you tested positive for COVID-19?: No Exposed to someone with COVID-19 in past 14 days?: No Do you have a sore throat?: No Do you have a cough?: No Do you have any weakness?: No Are you experiencing any nausea/vomitting?: No Do you have any diarrhea?: No Are you experiencing any unusual bleeding?: No Do you have any muscle aches/pain?: No Do you have any abdominal pain?: No Are you experiencing loss of taste or smell?: No Other Medical History Have you received the Flu Vaccine for this season: No Have you received the Pneumonia Vaccine: Yes Review of Systems Review of Systems Review of systems:: pertinent systems reviewed and negative unless documented below Constitutional Constitutional: Reports as per HPI Eyes Eyes: Reports as per HPI ENT Ears, Nose, Mouth, and Throat: Reports as per HPI *Cardiovascular Cardiovascular: Reports as per HPI *Respiratory Respiratory: Reports as per HPI *Gastrointestinal Gastrointestinal: Reports as per HPI *Genitourinary Genitourinary: Reports as per HPI *Musculoskeletal Musculoskeletal: Reports as per HPI Comments: Right hip fluid accumulation becoming much more noticeable over the last 48 hours *Neurologic Neurologic: Reports as per HPI Psychiatric Psychiatric: Reports as per HPI Comments: Patient just refuses to go back to original surgery site where he had the hip replaced as he does not trust the provider Endocrine Endocrine: Reports as per HPI Allergic/Immunologic Allergic/Immunologic: Reports as per HPI Meds Home Medications and Allergies Home Medications ?Medication ?Instructions ?Recorded ?Confirmed ?Type tamsulosin 0.4 mg capsule 0.4 mg PO HS 03/12/18 History duloxetine 60 mg capsule,delayed 60 mg PO DAILY 02/14/25 History release acetaminophen 500 mg tablet 500 mg PO Q6HP PRN Mild Pa in 04/16/23 02/14/25 History (Tylenol Extra Strength) (Scale Score 1-4) ascorbic acid (vitamin C) 500 mg 1,000 mg PO DAILY 02/14/25 History capsule atorvastatin 40 mg tablet 40 mg PO DAILY 90 days #90 t abs 04/16/23 02/14/25 History cholecalciferol (vitamin D3) 125 125 mcg PO DAILY 03/1902/14/25 History mcg (5,000 unit) capsule donepezil 5 mg tablet (Aricept) 5 mg PO HS 04/16/23 History amiodarone 200 mg tablet 200 mg PO DAILY 10/21/2410/11 History apixaban 5 mg tablet (Eliquis) 5 mg PO BID 10/21/24 History metformin 1,000 mg tablet 500 mg PO BIDWMEAL 10/21/24 02/14/25 History midodrine 5 mg tablet 5 mg PO TID 10/21/24 5 History spironolactone 25 mg tablet 25 mg PO DAILY 10/21/24 History bumetanide 1 mg tablet 1 mg PO DAILY 30 days #30 ta bs 10/23/24 02/14/25 Rx cyproheptadine 4 mg tablet 4 mg PO HS 02/15/25 5 History New Prescriptions to Start Prescriptions: Allergies Allergy/AdvReac Type Severity Reaction Status Date / Time tetanus and diphtheria Allergy Intermediate I-HIVES Verified 02/04/25 11:48 toxoids (TETANUS & DIPHTHERIA TOXOIDS) Exam Data for Last 24 hours Vital signs and Labs for Last 24 Hours: Temp Pulse Resp BP Pulse Ox O2 Del Method 98.1 F 69 18 128/110 H 95 Room Air 02/14/25 17:07 02/14/25 17:17 02/14/25 17:07 02/14/25 17:17 02/14/25 17:07 02/14/25 17:07 Laboratory Results - last 24 hr 02/14/25 20:07: WBC 9.8, RBC 4.31 L, Hgb 13.6 L, Hct 40.9 L, MCV 94.9 H, MCH 31.6 H, MCHC 33.3, RDW 13.6, Plt Count 317, MPV 9.5, Neut % (Auto) 63.9, Lymph % (Auto) 25.0, [place] % (Auto) 8.9, Eos % (Auto) 1.5, Baso % (Auto) 0.5, Neut # (Auto) 6.3, Lymph # (Auto) 2.5, [place] # (Auto) 0.9, Eos # (Auto) 0.2, Baso # (Auto) 0.1, ESR 25 H, Sodium 137, Potassium 5.4 H, Chloride 94 L, Carbon Dioxide 36 H, Anion Gap 12.4, BUN 69 H, Creatinine 1.50 H, Estimated Creat Clear 56, Estimated GFR 44 L, Est GFR ( Amer) 54 L, Glucose 174 H, Lactate 1.4, Calcium 9.9, Total Bilirubin 0.4, AST 19, ALT 14, Alkaline Phosphatase 110, C- Reactive Protein 35.1 H, Total Protein 8.2, Albumin 4.3, Globulin 3.9 H, Albumin/Globulin Ratio 1.1 I & O for Last 24 hours: Intake & Output 02/12/25 02/13/25 02/14/25 02/15/25 05:59 05:59 05:59 05:59 Weight 251 lb Radiology Reports for the Last 24 Hours: Prominent complex fluid collection surrounding the right total hip prosthesis. Findings suggest a synovial cyst although an infectious process is not excluded and the exact etiology is undetermined. No high density material is present to suggest metal debris. No foci of air are evident. Further evaluation with aspiration is recommended Constitutional Constitutional: no acute distress Comments: Patient is not in pain he is alert and oriented his son is in the room. He is a very good historian very good talker just little hard of hearing *Routine HEENT Exam Head: Present normocephalic and atraumatic Eye: Present EOMI and PERRL ENT: Present mucous membranes moist *Routine Neck Exam Neck: Present supple *Routine Respiratory Exam Respiratory: Present CTA bilaterally, distant breath sounds, normal respiratory effort, able to speak in complete sentences and symmetric chest movement Comments: No signs of respiratory distress on room air *Routine Cardiovascular Exam Cardiovascular: Present RRR, Normal S1 and Normal S2 Comments: Distant heart tones but no signs of edema to peripheral extremities. Showing no significant signs of CHF but has a history of being on diuretics related to above with ejection fraction of 20% on last cardiac echo done a few months *Routine Abdominal Exam Abdominal: Present soft and normoactive bowel sounds Comments: No tenderness found on exam of the abdomen *Routine Rectal Exam Rectal:: deferred Comments:: Patient wears depends *Routine Genitalia Exam Genitalia:: deferred *Routine Extremities Exam Comments: No edema moves all extremities well *Routine Skin Exam Skin: Present intact, dry and warm Comments: No signs of abnormal bruising or lesions., Noting to the right hip that there is some skin color changes that appear to be chronic at the top of the greater trochanter area.. Patient is able to turn and move and move the hip without signs of pain the obvious fluid collection is present both visually and when palpating the area the skin is not warm the fluid moves freely as if quite fluid and not gel., *Routine Neurological Exam Neurological: Present alert, oriented X3, CN II-XII intact, normal reflexes, vision grossly intact, hearing grossly intact and normal speech Comments: Patient is hard of hearing but when facing him talking directly to him he hears everything well and conversational levels Routine Psychiatric Exam Psychiatric: Present normal affect, cooperative, good insight and good judgment Comments: Patient really shows no psychological deficits but he just refuses to go back to the original place of the hip replacement with the surgeon he had before H&P: Result Impressions 1. Chronic fluid accumulation around the right hip prosthesis that has suddenly increased in volume over the past few days 2. Chronic history of CHF with low ejection fraction on diuretic 3. Testing from before showing some mesenteric lymphadenopathy on a CT scan. Imaging and Cardiology CT scan - pelvis: Status: image reviewed by me Additional comments: Prominent complex fluid collection surrounding the right total hip prosthesis. Findings suggest a synovial cyst although an infectious process is not excluded and the exact etiology is undetermined. No high density material is present to suggest metal debris. No foci of air are evident. Further evaluation with aspiration is recommended Assessment and Plan *Assessment and plan (1) Effusion of right hip: Status: Acute Category: Medical Code(s): M25.451 - Effusion, right hip (2) Acute pain of right hip: Status: Acute Category: Medical Code(s): M25.551 - Pain in right hip Plan 1. With all nearby hospitals having being on divert, patient refusing transfer back to original surgery in [place] was able to get a hold of the [facility] which will accept him as soon as they have an open bed. Talking with the transport people phone [phone] with a fax number of [phone], Saba who is on the transfer center logistics told me that they would call as soon as a bed was available tomorrow. 2. Would have consider secondary plan if bed does not become available, at this time from lab work and examination the hip do not see any type of acute infection so will not start any antibiotics tonight 3. Noting the patient is on metformin with slightly elevated blood sugars will place on a diabetic diet and do AC and at bedtime fingersticks. Will have daytime provider look at home medications to see what needs to be started if patient has an extended stay here.
--- NOTE | 2025-02-15 01:07 | PC.NURSE ---
Report called to [facility] for hospital admission
[2025-02-15] MEDS: ALPRAZolam 0.25MG TABLET 0.25 MG PO (03:21)
--- NOTE | 2025-02-15 03:39 | PC.NURSE ---
Pt AOx4, pleasant. QUECHAN. 20 LAC. C/o not being able to sleep, so hospitalist ordered a low dose of xanax. Pt denies pain or any additional needs at this time. Bed is low, locked, and call light is in reach.
[2025-02-15 06:26] LABS: POC Glucose,Bedside 239 (70-110)
[2025-02-15] MEDS: SPIRONOLACTONE 25MG TABLET 25 MG PO (08:53)
[2025-02-15] MEDS: BUMETANIDE 1 MG TABLET PO (08:53)
[2025-02-15] MEDS: AMIODARONE 200MG TABLET 200 MG PO (08:53)
[2025-02-15] MEDS: DULOXETINE 30MG CAPSULE.DR 60 MG PO (09:12)
[2025-02-15 09:13] LABS: Basophils % 0.5 % (0.1-2.0); Eosinophils # 0.2 Kmm3 (0.0-0.4); Eosinophils % 1.8 % (0.1-12.0); Hematocrit 38.1 % (42.0-52.0); Hemoglobin 12.4 g/dL (14.1-18.0); Immature Granulocytes # 0.02 10^3uL; Immature Granulocytes % 0.2 %; Lymphocytes % 24.3 % (10-50); Mean Corpuscular HGB Conc 32.5 g/dL (31.8-35.4); Mean Corpuscular Hemoglobin 31.1 pg (27.0-31.2); Mean Corpuscular Volume 95.5 fl (80-94); Monocytes # 0.7 K/mm3 (0.1-1.0); Monocytes % 8.9 % (1.7-9.3); Neutrophils # 5.3 K/mm3 (1.8-7.8); Neutrophils % 64.3 % (37.0-80.0); Nucleated Red Blood Cells # 0 10^3/uL; Nucleated Red Blood Cells % 0 %; Platelet Count 310 K/mm3 (142-424); Red Blood Count 3.99 M/mm3 (4.60-6.20); Red Cell Distribution Width 13.8 % (11.5-17.5); Red Cell Distribution Width-SD 48.5 fL; White Blood Count 8.3 K/mm3 (4.8-10.8)
[2025-02-15 09:15] LABS: Chloride 98 mmol/L (98-107); Sodium 136 mmol/L (136-145)
[2025-02-15 09:16] LABS: Potassium 4.9 mmoL/L (3.5-5.1)
[2025-02-15 09:18] LABS: Blood Urea Nitrogen 56 mg/dl (9-20); Creatinine Clearance Estimated 65 mL/min (50-200); Estimated Glomerular Filt Rate 52 ml/min (>60); GFR (African American) 63 ML/MIN (>60)
[2025-02-15 09:19] LABS: Anion Gap 12.9 mEq/L (5-15); Calcium 9.3 mg/dl (8.4-10.2); Carbon Dioxide 30 mmol/L (22.0-30.0); Glucose 293 mg/dl (74-100)
[2025-02-15 09:38] LABS: Magnesium 2.5 mg/dl (1.6-2.3)
[2025-02-15 11:02] LABS: POC Glucose,Bedside 330 (70-110)
[2025-02-15] MEDS: humaLOG 100 UNITS/ML 10ML VIAL (SSI) SUBCUT ×2 (11:34→20:20)
[2025-02-15] MEDS: ACETAMINOPHEN 325MG TAB 650 MG PO ×2 (12:10→20:20)
--- NOTE | 2025-02-15 13:19 | EXP.DC.SUM ---
General Admission date:: 02/15/25 Discharge date: 02/15/25 HPI HPI HPI: Mr. German an 89-year-old who had his hip replaced approximately 2 years ago in [place]. Patient has developed a fluid-filled pocket to the right hip which is now enlarging.. Patient states that fluid pocket has been there but much smaller for the past 2 years. 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 Patient states his original physician Dr. Hayes that he refused to go back to be seen by him. The ER provider talked with him about that this would be the simplest thing to do but since he did not want to go and told his family that he was not going to go back to them the ER doctor has tried to have him transferred to a different point. Orthopedics was consulted here but they do not deal with hip revisions., ER provider tried [facility] and [facility] in [place] and all of them are totally on divert. The ER doctor was able to find [facility] in [facility], that is willing to accept him. The ER physician talked with the orthopedic they are on-call a [facility], that is willing to accept him once a bed is ready. The ER doctor and myself spoke with the young lady by the name of Saba, who is the manager residential.. Her phone #[phone], I personally spoke with her and she did asked that we do send a facesheet and fax to [phone]. That the soonest they had a bed after discharge is tomorrow that they would have a place for him. .Talking with the patient about any other changes he is in no pain he has not run a fever. Just that the fact that the fluid pocket is enlarging immensel the only problem he noted to me is that sometimes he goes 3's to 5 days without having a bowel movement and has been taking Duca locks and feels that it is getting ready to work. He also wears a depends he had been on 2 diuretics in the past now only on 1 and has better control of his urine. Besides that he had no other complaints Plan at this time to keep the patient comfortable monitor him for any changes and to hopefully be able to transfer him to the [facility] facility so that this fluid accumulation can be looked at. Please refer to CT scan results y Exam Data for Last 24 hours Vital signs and Labs for Last 24 Hours: Temp Pulse Resp BP Pulse Ox O2 Del Method 97.6 F 73 20 103/65 L 96 Room Air 02/15/25 08:00 02/15/25 08:00 02/15/25 08:00 02/15/25 08:00 02/15/25 08:00 02/15/25 12:18 Laboratory Results - last 24 hr 02/14/25 20:07: WBC 9.8, RBC 4.31 L, Hgb 13.6 L, Hct 40.9 L, MCV 94.9 H, MCH 31.6 H, MCHC 33.3, RDW 13.6, Plt Count 317, MPV 9.5, Neut % (Auto) 63.9, Lymph % (Auto) 25.0, [place] % (Auto) 8.9, Eos % (Auto) 1.5, Baso % (Auto) 0.5, Neut # (Auto) 6.3, Lymph # (Auto) 2.5, [place] # (Auto) 0.9, Eos # (Auto) 0.2, Baso # (Auto) 0.1, ESR 25 H, Sodium 137, Potassium 5.4 H, Chloride 94 L, Carbon Dioxide 36 H, Anion Gap 12.4, BUN 69 H, Creatinine 1.50 H, Estimated Creat Clear 56, Estimated GFR 44 L, Est GFR ( Amer) 54 L, Glucose 174 H, Lactate 1.4, Calcium 9.9, Total Bilirubin 0.4, AST 19, ALT 14, Alkaline Phosphatase 110, C-Reactive Protein 35.1 H, Total Protein 8.2, Albumin 4.3, Globulin 3.9 H, Albumin/Globulin Ratio 1.1 02/15/25 06:19: POC Glucose 239 H 02/15/25 08:40: WBC 8.3, RBC 3.99 L, Hgb 12.4 L, Hct 38.1 L, MCV 95.5 H, MCH 31.1, MCHC 32.5, RDW 13.8, Plt Count 310, MPV 10.0, Neut % (Auto) 64.3, Lymph % (Auto) 24.3, [place] % (Auto) 8.9, Eos % (Auto) 1.8, Baso % (Auto) 0.5, Neut # (Auto) 5.3, Lymph # (Auto) 2.0, [place] # (Auto) 0.7, Eos # (Auto) 0.2, Baso # (Auto) 0.0, Sodium 136, Potassium 4.9, Chloride 98, Carbon Dioxide 30, Anion Gap 12.9, BUN 56 H, Creatinine 1.30 H, Estimated Creat Clear 65, Estimated GFR 52 L, Est GFR ( Amer) 63, Glucose 293 H D, Calcium 9.3, Magnesium 2.5 H 02/15/25 10:40: POC Glucose 330 H* I & O for Last 24 hours: Intake & Output 02/12/25 02/13/25 02/14/25 02/15/25 23:59 23:59 23:59 23:59 Intake Total 480 / 480 Output Total 850 / 850 Balance -370 / -370 Weight 113.852 kg 114.215 kg Results Data Completed and Pending Labs on day of discharge: Labs from last 24 hours 02/15/25 02/15/25 02/15/25 10:40 08:40 06:19 WBC 8.3 RBC 3.99 L Hgb 12.4 L Hct 38.1 L MCV 95.5 H MCH 31.1 MCHC 32.5 RDW 13.8 Plt Count 310 MPV 10.0 Neut % (Auto) 64.3 Lymph % (Auto) 24.3 [place] % (Auto) 8.9 Eos % (Auto) 1.8 Baso % (Auto) 0.5 Neut # (Auto) 5.3 Lymph # (Auto) 2.0 [place] # (Auto) 0.7 Eos # (Auto) 0.2 Baso # (Auto) 0.0 ESR Sodium 136 Potassium 4.9 Chloride 98 Carbon Dioxide 30 Anion Gap 12.9 BUN 56 H Creatinine 1.30 H Estimated Creat Clear 65 Estimated GFR 52 L Est GFR ( Amer) 63 Glucose 293 H D POC Glucose 330 H* 239 H Lactate Calcium 9.3 Magnesium 2.5 H Total Bilirubin AST ALT Alkaline Phosphatase C-Reactive Protein Total Protein Albumin Globulin Albumin/Globulin Ratio 02/14/25 20:07 WBC 9.8 RBC 4.31 L Hgb 13.6 L Hct 40.9 L MCV 94.9 H MCH 31.6 H MCHC 33.3 RDW 13.6 Plt Count 317 MPV 9.5 Neut % (Auto) 63.9 Lymph % (Auto) 25.0 [place] % (Auto) 8.9 Eos % (Auto) 1.5 Baso % (Auto) 0.5 Neut # (Auto) 6.3 Lymph # (Auto) 2.5 [place] # (Auto) 0.9 Eos # (Auto) 0.2 Baso # (Auto) 0.1 ESR 25 H Sodium 137 Potassium 5.4 H Chloride 94 L Carbon Dioxide 36 H Anion Gap 12.4 BUN 69 H Creatinine 1.50 H Estimated Creat Clear 56 Estimated GFR 44 L Est GFR ( Amer) 54 L Glucose 174 H POC Glucose Lactate 1.4 Calcium 9.9 Magnesium Total Bilirubin 0.4 AST 19 ALT 14 Alkaline Phosphatase 110 C-Reactive Protein 35.1 H Total Protein 8.2 Albumin 4.3 Globulin 3.9 H Albumin/Globulin Ratio 1.1 DS: Diagnosis Discharge Diagnosis (1) Effusion of right hip: Status: Acute Code(s): M25.451 - Effusion, right hip (2) Acute pain of right hip: Status: Acute Code(s): M25.551 - Pain in right hip (3) HFrEF (heart failure with reduced ejection fraction): Status: Acute Code(s): I50.20 - Unspecified systolic (congestive) heart failure (4) Diabetes: Status: Acute Code(s): E11.9 - Type 2 diabetes mellitus without complications (5) Depression: Status: Acute Code(s): F32.A - Depression, unspecified (6) BPH (benign prostatic hyperplasia): Status: Chronic Code(s): N40.0 - Benign prostatic hyperplasia without lower urinary tract symptoms Qualifiers: Lower urinary tract symptom presence: symptoms present Lower urinary tract symptom detail: nocturia Qualified Code(s): N40.1 - Benign prostatic hyperplasia with lower urinary tract symptoms; R35.1 - Nocturia (7) MCI (mild cognitive impairment) with memory loss: Status: Chronic Code(s): G31.84 - Mild cognitive impairment of uncertain or unknown etiology (8) CHANTAL (acute kidney injury): Status: Acute Code(s): N17.9 - Acute kidney failure, unspecified Meds Home Medications and Allergies Home Medications ?Medication ?Instructions ?Recorded ?Confirmed ?Type tamsulosin 0.4 mg capsule 0.4 mg PO HS 03/12/18 02/14/25 History duloxetine 60 mg capsule,delayed 60 mg PO DAILY 02/14/23 02/14/25 History release acetaminophen 500 mg tablet 500 mg PO Q6HP PRN Mild Pain 04/16/23 02/14/25 History (Tylenol Extra Strength) (Scale Score 1-4) ascorbic acid (vitamin C) 500 mg 1,000 mg PO DAILY 04/16/23 02/14/25 History capsule atorvastatin 40 mg tablet 40 mg PO DAILY 90 days #90 tabs 04/16/23 02/14/25 History cholecalciferol (vitamin D3) 125 125 mcg PO DAILY 04/16/23 02/14/25 History mcg (5,000 unit) capsule donepezil 5 mg tablet (Aricept) 5 mg PO HS 04/16/23 02/14/25 History amiodarone 200 mg tablet 200 mg PO DAILY 10/21/24 02/15/25 History apixaban 5 mg tablet (Eliquis) 5 mg PO BID 10/21/24 02/14/25 History metformin 1,000 mg tablet 500 mg PO BIDWMEAL 10/21/24 02/14/25 History midodrine 5 mg tablet 5 mg PO TID 10/21/24 02/14/25 History spironolactone 25 mg tablet 25 mg PO DAILY 10/21/24 02/15/25 History bumetanide 1 mg tablet 1 mg PO DAILY 30 days #30 tabs 10/23/24 02/14/25 Rx cyproheptadine 4 mg tablet 4 mg PO HS 02/15/25 02/15/25 History New Prescriptions to Start Prescriptions: Allergies Allergy/AdvReac Type Severity Reaction Status Date / Time tetanus and diphtheria Allergy Intermediate I-HIVES Verified 02/04/25 11:48 toxoids (TETANUS & DIPHTHERIA TOXOIDS) Discharge Plan Disposition Patient Disposition: Xfer Short-Term Hosp Condition: Fair Follow up Plan Prescriptions/Medication Reconciliation: No Action atorvastatin 40 mg tablet 40 mg PO DAILY 90 Days Qty: 90 Patient Comments: TAKE 1 TABLET BY MOUTH AT BEDTIME duloxetine 60 mg capsule,delayed release(DR/EC) 60 mg PO DAILY donepezil [Aricept] 5 mg tablet 5 mg PO HS acetaminophen [Tylenol Extra Strength] 500 mg tablet 500 mg PO Q6HP PRN (Reason: Mild Pain (Scale Score 1-4)) cholecalciferol (vitamin D3) 125 mcg (5,000 unit) capsule 125 mcg PO DAILY ascorbic acid (vitamin C) 500 mg capsule 1,000 mg PO DAILY tamsulosin 0.4 MG capsule 0.4 mg PO HS metformin 1,000 mg tablet 500 mg PO BIDWMEAL amiodarone 200 mg tablet 200 mg PO DAILY midodrine 5 mg tablet 5 mg PO TID spironolactone 25 mg tablet 25 mg PO DAILY Eliquis 5 mg tablet 5 mg PO BID bumetanide 1 mg Tablet 1 mg PO DAILY 30 Days Qty: 30 0RF cyproheptadine 4 mg Tablet 4 mg PO HS Rx Instructions: ONE HOUR BEFORE BEDTIME Patient Discharge Instructions Print Language: Portuguese Providers Primary Care Provider: Stephen Chen Admit Provider: Eugenio Omer Attending Provider: Eugenio Omer
--- NOTE | 2025-02-15 14:59 | PC.NURSE ---
Aox 4, AUGUSTINE, up with assistance times one with walker, using urinal, bed alarm active, fsbg, 20g L AC SL, diabetic diet.
[2025-02-15 15:21] LABS: POC Glucose,Bedside 117 (70-110)
--- NOTE | 2025-02-15 19:46 | EXP.DC.SUM ---
General Admission date:: 02/14/25 Discharge date: 02/15/25 HPI HPI HPI: Mr. German an 89-year-old who had his hip replaced approximately 2 years ago in [place]. Patient has developed a fluid-filled pocket to the right hip which is now enlarging.. Patient states that fluid pocket has been there but much smaller for the past 2 years. 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 Patient states his original physician Dr. Hayes that he refused to go back to be seen by him. The ER provider talked with him about that this would be the simplest thing to do but since he did not want to go and told his family that he was not going to go back to them the ER doctor has tried to have him transferred to a different point. Orthopedics was consulted here but they do not deal with hip revisions., ER provider tried [facility] and [facility] in [place] and all of them are totally on divert. The ER doctor was able to find [facility], that is willing to accept him. The ER physician talked with the orthopedic they are on-call a [facility], that is willing to accept him once a bed is ready. The ER doctor and myself spoke with the young lady by the name of Saba, who is the logistics intern.. Her phone #[phone], I personally spoke with her and she did asked that we do send a facesheet and fax to [phone]. That the soonest they had a bed after discharge is tomorrow that they would have a place for him. .Talking with the patient about any other changes he is in no pain he has not run a fever. Just that the fact that the fluid pocket is enlarging immensel the only problem he noted to me is that sometimes he goes 3's to 5 days without having a bowel movement and has been taking Duca locks and feels that it is getting ready to work. He also wears a depends he had been on 2 diuretics in the past now only on 1 and has better control of his urine. Besides that he had no other complaints Plan at this time to keep the patient comfortable monitor him for any changes and to hopefully be able to transfer him to the [facility] so that this fluid accumulation can be looked at. Please refer to CT scan results . Patient has remained unchanged while here at the hospital. Have received phone call from [facility] accepting nurse practitioner. She is contacted logistics to be able to call back with the floor and room number Hospital Course Hospital Course Hospital Course: Patient admitted through the ER after having a sudden increase in amount of fluid to the right hip. No fever no pain labs remained stable. Patient did not want to go back to the original hospital where he had the hip surgery done did not want to see that surgical group. All hospitals in [place] were on divert [facility] was contacted and was kind enough that they were able to make the agreement to accept the patient when a bed was ready. Have just received a phone call coming in the evening that a logistics will be contacted and that they will call us back with a floor and in room number shortly I have gone and told the patient he is very happy about this and is awaiting the transfer Exam Data for Last 24 hours Vital signs and Labs for Last 24 Hours: Temp Pulse Resp BP Pulse Ox O2 Del Method 97.8 F 88 20 116/69 96 Room Air 02/15/25 16:00 02/15/25 16:00 02/15/25 16:00 02/15/25 16:00 02/15/25 16:00 02/15/25 17:55 Laboratory Results - last 24 hr 02/14/25 20:07: WBC 9.8, RBC 4.31 L, Hgb 13.6 L, Hct 40.9 L, MCV 94.9 H, MCH 31.6 H, MCHC 33.3, RDW 13.6, Plt Count 317, MPV 9.5, Neut % (Auto) 63.9, Lymph % (Auto) 25.0, [place] % (Auto) 8.9, Eos % (Auto) 1.5, Baso % (Auto) 0.5, Neut # (Auto) 6.3, Lymph # (Auto) 2.5, [place] # (Auto) 0.9, Eos # (Auto) 0.2, Baso # (Auto) 0.1, ESR 25 H, Sodium 137, Potassium 5.4 H, Chloride 94 L, Carbon Dioxide 36 H, Anion Gap 12.4, BUN 69 H, Creatinine 1.50 H, Estimated Creat Clear 56, Estimated GFR 44 L, Est GFR ( Amer) 54 L, Glucose 174 H, Lactate 1.4, Calcium 9.9, Total Bilirubin 0.4, AST 19, ALT 14, Alkaline Phosphatase 110, C-Reactive Protein 35.1 H, Total Protein 8.2, Albumin 4.3, Globulin 3.9 H, Albumin/Globulin Ratio 1.1 02/15/25 06:19: POC Glucose 239 H 02/15/25 08:40: WBC 8.3, RBC 3.99 L, Hgb 12.4 L, Hct 38.1 L, MCV 95.5 H, MCH 31.1, MCHC 32.5, RDW 13.8, Plt Count 310, MPV 10.0, Neut % (Auto) 64.3, Lymph % (Auto) 24.3, Berks % (Auto) 8.9, Eos % (Auto) 1.8, Baso % (Auto) 0.5, Neut # (Auto) 5.3, Lymph # (Auto) 2.0, Berks # (Auto) 0.7, Eos # (Auto) 0.2, Baso # (Auto) 0.0, Sodium 136, Potassium 4.9, Chloride 98, Carbon Dioxide 30, Anion Gap 12.9, BUN 56 H, Creatinine 1.30 H, Estimated Creat Clear 65, Estimated GFR 52 L, Est GFR ( Amer) 63, Glucose 293 H D, Calcium 9.3, Magnesium 2.5 H 02/15/25 10:40: POC Glucose 330 H* 02/15/25 15:11: POC Glucose 117 H I & O for Last 24 hours: Intake & Output 02/13/25 02/14/25 02/15/25 02/16/25 05:59 05:59 05:59 05:59 Intake Total 1200 / 1200 Output Total 0 / 0 1000 / 1000 Balance 0 / 0 200 / 200 Weight 251 lb 12.8 oz Constitutional Constitutional: no acute distress Comments: Alert oriented talking well very pleased that the transfer will take the *Routine Respiratory Exam Respiratory: Present normal respiratory effort, able to speak in complete sentences and symmetric chest movement *Routine Cardiovascular Exam Cardiovascular: Present RRR, Normal S1 and Normal S2 *Routine Abdominal Exam Comments: No tenderness *Routine Extremities Exam Comments: Right hip is unchanged approximately same amount of fluid into the right hip patient is able to move his leg well with no discomfort. *Routine Neurological Exam Comments: No changes from baseline patient can hear but has hearing difficulty Results Data Completed and Pending Labs on day of discharge: Labs from last 24 hours 02/15/25 02/15/25 02/15/25 15:11 10:40 08:40 WBC 8.3 RBC 3.99 L Hgb 12.4 L Hct 38.1 L MCV 95.5 H MCH 31.1 MCHC 32.5 RDW 13.8 Plt Count 310 MPV 10.0 Neut % (Auto) 64.3 Lymph % (Auto) 24.3 Berks % (Auto) 8.9 Eos % (Auto) 1.8 Baso % (Auto) 0.5 Neut # (Auto) 5.3 Lymph # (Auto) 2.0 Berks # (Auto) 0.7 Eos # (Auto) 0.2 Baso # (Auto) 0.0 ESR Sodium 136 Potassium 4.9 Chloride 98 Carbon Dioxide 30 Anion Gap 12.9 BUN 56 H Creatinine 1.30 H Estimated Creat Clear 65 Estimated GFR 52 L Est GFR ( Amer) 63 Glucose 293 H D POC Glucose 117 H 330 H* Lactate Calcium 9.3 Magnesium 2.5 H Total Bilirubin AST ALT Alkaline Phosphatase C-Reactive Protein Total Protein Albumin Globulin Albumin/Globulin Ratio 02/15/25 02/14/25 06:19 20:07 WBC 9.8 RBC 4.31 L Hgb 13.6 L Hct 40.9 L MCV 94.9 H MCH 31.6 H MCHC 33.3 RDW 13.6 Plt Count 317 MPV 9.5 Neut % (Auto) 63.9 Lymph % (Auto) 25.0 Berks % (Auto) 8.9 Eos % (Auto) 1.5 Baso % (Auto) 0.5 Neut # (Auto) 6.3 Lymph # (Auto) 2.5 Berks # (Auto) 0.9 Eos # (Auto) 0.2 Baso # (Auto) 0.1 ESR 25 H Sodium 137 Potassium 5.4 H Chloride 94 L Carbon Dioxide 36 H Anion Gap 12.4 BUN 69 H Creatinine 1.50 H Estimated Creat Clear 56 Estimated GFR 44 L Est GFR ( Amer) 54 L Glucose 174 H POC Glucose 239 H Lactate 1.4 Calcium 9.9 Magnesium Total Bilirubin 0.4 AST 19 ALT 14 Alkaline Phosphatase 110 C-Reactive Protein 35.1 H Total Protein 8.2 Albumin 4.3 Globulin 3.9 H Albumin/Globulin Ratio 1.1 Additional Comments Additional comments: There are no signs of obvious neoplasm and/or infection to the hip at this time DS: Diagnosis Discharge Diagnosis (1) Effusion of right hip: Start date: 02/15/25 Status: Acute Code(s): M25.451 - Effusion, right hip Problem details: Right hip replacement approximately 2 to 3 years ago had a significant MRSA infection taking 45 days in the hospital before release. Patient noted a small amount of fluid has always been around the appliance since then. But over the last couple weeks especially over the last 72 hours a much increase in the fluid to the point that you could feel it bulging on the right side of the hip without any significant pain no signs of warmness, Scanning shows probable synovial cyst question greater trochanter bursitis with fluid draining into open space due to, would place neoplasm or infectious process at the very low end of probability (2) Diabetes: Status: Acute Code(s): E11.9 - Type 2 diabetes mellitus without complications Qualifiers: Diabetes mellitus type: type 2 Diabetes mellitus supervisor intermediates insulin use: unspecified skilled nursing insulin use status Diabetes mellitus complication status: with other specified complication Qualified Code(s): E11.69 - Type 2 diabetes mellitus with other specified complication Problem details: Elevated blood sugar on sliding scale during this admission (3) CHANTAL (acute kidney injury): Start date: 02/15/25 Status: Acute Code(s): N17.9 - Acute kidney failure, unspecified Problem details: Moderately increased BUN and creatinine that is chronic Meds Home Medications and Allergies Home Medications ?Medication ?Instructions ?Recorded ?Confirmed ?Type tamsulosin 0.4 mg capsule 0.4 mg PO HS 03/12/18 02/14/25 History duloxetine 60 mg capsule,delayed 60 mg PO DAILY 02/14/23 02/14/25 History release acetaminophen 500 mg tablet 500 mg PO Q6HP PRN Mild Pain 04/16/23 02/14/25 History (Tylenol Extra Strength) (Scale Score 1-4) ascorbic acid (vitamin C) 500 mg 1,000 mg PO DAILY 04/16/23 02/14/25 History capsule atorvastatin 40 mg tablet 40 mg PO DAILY 90 days #90 tabs 04/16/23 02/14/25 History cholecalciferol (vitamin D3) 125 125 mcg PO DAILY 04/16/23 02/14/25 History mcg (5,000 unit) capsule donepezil 5 mg tablet (Aricept) 5 mg PO HS 04/16/23 02/14/25 History amiodarone 200 mg tablet 200 mg PO DAILY 10/21/24 02/15/25 History apixaban 5 mg tablet (Eliquis) 5 mg PO BID 10/21/24 02/14/25 History metformin 1,000 mg tablet 500 mg PO BIDWMEAL 10/21/24 02/14/25 History midodrine 5 mg tablet 5 mg PO TID 10/21/24 02/14/25 History spironolactone 25 mg tablet 25 mg PO DAILY 10/21/24 02/15/25 History bumetanide 1 mg tablet 1 mg PO DAILY 30 days #30 tabs 10/23/24 02/14/25 Rx cyproheptadine 4 mg tablet 4 mg PO HS 02/15/25 02/15/25 History New Prescriptions to Start Prescriptions: Allergies Allergy/AdvReac Type Severity Reaction Status Date / Time tetanus and diphtheria Allergy Intermediate I-HIVES Verified 02/04/25 11:48 toxoids (TETANUS & DIPHTHERIA TOXOIDS) Discharge Plan Disposition Patient Disposition: Xfer Short-Term Hosp Condition: Fair Discharge Order Discharge Orders: Discharge Order (Routine); Ordered 02/15/25 Ordered By: Jmael Decker Follow up Plan Prescriptions/Medication Reconciliation: No Action atorvastatin 40 mg tablet 40 mg PO DAILY 90 Days Qty: 90 Patient Comments: TAKE 1 TABLET BY MOUTH AT BEDTIME duloxetine 60 mg capsule,delayed release(DR/EC) 60 mg PO DAILY donepezil [Aricept] 5 mg tablet 5 mg PO HS acetaminophen [Tylenol Extra Strength] 500 mg tablet 500 mg PO Q6HP PRN (Reason: Mild Pain (Scale Score 1-4)) cholecalciferol (vitamin D3) 125 mcg (5,000 unit) capsule 125 mcg PO DAILY ascorbic acid (vitamin C) 500 mg capsule 1,000 mg PO DAILY tamsulosin 0.4 MG capsule 0.4 mg PO HS metformin 1,000 mg tablet 500 mg PO BIDWMEAL amiodarone 200 mg tablet 200 mg PO DAILY midodrine 5 mg tablet 5 mg PO TID spironolactone 25 mg tablet 25 mg PO DAILY Eliquis 5 mg tablet 5 mg PO BID bumetanide 1 mg Tablet 1 mg PO DAILY 30 Days Qty: 30 0RF cyproheptadine 4 mg Tablet 4 mg PO HS Rx Instructions: ONE HOUR BEFORE BEDTIME Problem Reconciliation Problems Reviewed?: Yes Patient Discharge Instructions ACTIVITY: Continue current activity DIET: continue same diet Stand Alone Forms: Transfer Record Print Language: Thai Providers Primary Care Provider: Stephen Chen Admit Provider: Eugenio Omer Attending Provider: Eugenio Omer
[2025-02-15 20:17] LABS: POC Glucose,Bedside 302 (70-110)
[2025-02-15] MEDS: DONEPEZIL 5MG TAB 5 MG PO (20:20)
[2025-02-15] MEDS: PANTOPRAZOLE 40MG TABLET 40 MG PO (20:20)
[2025-02-15] MEDS: TAMSULOSIN 0.4MG CAPSULE 0.4 MG PO (20:20)
== END 2025-02-15 23:20 | disposition short-term general hospital (02) ==
LOC: ER 23:35 → 2ND 02-15 00:59
PROVIDERS: Admitting Provider Internal Medicine Adolescent Medicine; Emergency Provider Student in an Organized Health Care Education/Training Program; PCP Family Medicine; Visit Provider Internal Medicine Adolescent Medicine
DX: M25.451 Effusion, right hip (principal); M25.551 Pain in right hip; N17.9 Acute kidney failure, unspecified; N40.0 Benign prostatic hyperplasia without lower urinary tract symptoms; I11.0 Hypertensive heart disease with heart failure; I50.20 Unspecified systolic (congestive) heart failure; E78.5 Hyperlipidemia, unspecified; G31.84 Mild cognitive impairment of uncertain or unknown etiology; I48.91 Unspecified atrial fibrillation; F32.A Depression, unspecified; E11.40 Type 2 diabetes mellitus with diabetic neuropathy, unspecified; E66.9 Obesity, unspecified; G89.29 Other chronic pain; I25.10 Atherosclerotic heart disease of native coronary artery without angina pectoris; H91.90 Unspecified hearing loss, unspecified ear; Z96.641 Presence of right artificial hip joint; Z79.899 Other long term (current) drug therapy; Z79.84 Long term (current) use of oral hypoglycemic drugs; Z79.01 Long term (current) use of anticoagulants; Z88.7 Allergy status to serum and vaccine; Z86.14 Personal history of Methicillin resistant Staphylococcus aureus infection; Z68.30 Body mass index [BMI] 30.0-30.9, adult; Z95.5 Presence of coronary angioplasty implant and graft; Z96.659 Presence of unspecified artificial knee joint
CPT/HCPCS: 36415; 72193; 80048; 80053; 82962; 83605; 83735; 85025; 85651; 86140; 87040; G0378; Q9967

== ENCOUNTER 2025-04-13 12:07 | Emergency (ER) | payer MEDICARE, SELFPAY ==
--- OUTSIDE RECORDS SUMMARY | 2025-02-16 00:49 | XMS_ITS | Encounter Summary ---
Author Organization [place] [address] Care Team Providers Care Analytical Technician Name Role Phone No Pcp, Per Patient Primary Care Provider Robyn arshad Reason for Visit * Auth/Cert/Inpt Specialty Diagnoses / Procedures Referred By Rebecca t Referred To Contact Diagnoses Right hip pain right hip pain Referral ID Status Reason Start Date Expiration Date Visits Re quested Visits Authorized [id number] 1 1 Encounter Details Date Type Department Care Team (Late st Contact Info) Description 02/16/2025 12:49 AM EDT - 03/08/2025 2:14 PM EDT Hospital Encounter [facility] [address] [place] [address] Sameer Ortega MD [address] [place] [address] Berenice Dallas, [address] [place] [address] Ozzie Fernandez MD [address] [place], [place] [id number] Stephen Covarrubias MD [address] [place] [address] Benign prostatic hyperplasia, unspecified whether lower urinary tract symptoms present (Primary Dx); Paroxysmal A-fib (HCC); 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); Dysphagia, unspecified type; Rash; Hyperkalemia; Environmental allergies; Type 2 diabetes mellitus with diabetic polyneuropathy, without long-term current use of insulin (HCC); Mood disorder; Major neurocognitive disorder (HCC); Dyslipidemia; NIGHAT (obstructive sleep apnea); Right hip pain; Right hip joint effusion Discharge Disposition: Long Term Facility Social History Tobacco Use Types Packs/Day Years Used Date Smoking Tobacco: Never Assessed [facility] Utilities Answer Date Recorded In the past 12 months has th e electric, gas, oil, or water company threatened to shut off services in your home? No 02/16/2025 Overall Financial Resource Strain (CARDIA) Answe r Date Recorded How hard is it for you to pa y for the very basics like food, housing, medical care, and heating? Not very hard 02/16/2025 PHQ-2 Answer Date Recorded PHQ-2 Total Score 0 02/16/2025 [employer] [employer] [facility] - Occupational Stress Questionnaire Answer Date Recorded Do you feel stress - tense, restless, nervous, or anxious, or unable to sleep at night because your mind is troubled all the time - these days? Only a little 02/16/2025 Exercise Vital Sign Answer Date Recorde d On average, how many days pe r week do you engage in moderate to strenuous exercise (like a brisk walk)? 0 days 02/16/2025 On average, how many minutes do you engage in exercise at this level? 0 min 02/16/2025 Hunger Vital Sign Answer Date Recorded Within the past 12 months, y ou worried that your food would run out before you got the money to buy more. Never true 02/17/20 25 Within the past 12 months, t he food you bought just didn't last and you didn't have money to get more. Never true 02/16/2025 [facility] IP Transportation Answer D ate Recorded In the past 12 months, has l ack of reliable transportation kept you from medical appointments, meetings, work or from getting things needed for daily living? No 02/16/2025 Sex and Gender Information Value Date Recorded Sex Assigned at Not on file Legal Sex Male 7:36 PM EDT Gender Identity Not on file Sexual Orientation Not on file documented as of this encounter Last Filed Vital Signs Vital Sign Reading Time Taken Comments Blood Pressure 112/72 03/08/2025 11:39 AM EDT Pulse 69 03/08/2025 11:39 AM EDT Temperature 36.6 C (97.8 F) 03/08/2025 11:39 AM EDT Respiratory Rate 18 03/08/2025 11:3 9 AM EDT Oxygen Saturation 95% 03/08/2025 11: 39 AM EDT Inhaled Oxygen Concentration - - Weight 124.6 kg (274 lb 11.1 oz) 03/07/2025 5:42 AM EDT Height 193 cm (6' 4 ) 02/16/2025 1:00 AM EDT Body Mass Index 33.44 02/16/2025 1:00 AM EDT documented in this encounter Functional Status * Alcohol Screening Score Answer Date of Assessment Author 0 02/16/2025 1:00 AM EDT Yovana Flores RN * Drug Screening Score Answer Date of Assessment Author 0 02/16/2025 1:00 AM EDT Yovana Flores RN * Question Answer Date of Assessment Author How often do you have a drin k containing alcohol? 0 02/16/2025 1:00 AM EDT Cameron Flores RN How many drinks containing a lcohol do you have on a typical day when you are drinking? 0 02/16/2025 1:00 AM EDT Cameron Flores RN How often do you have six or more drinks on one occasion? 0 02/16/2025 1:00 AM EDT Sadi Flores RN AUDIT-C to Determine Rows 4-10 0 02/16/2025 1:00 AM EDT Cameron Flores RN * Question Answer Date of Assessment Author Little interest or pleasure in doing things 0 02/16/2025 12:03 PM EDT Blanca Low R N Feeling down, depressed, or hopeless 0 10/2024 12:03 PM EDT Blanca Low RN PHQ-2 Total Score 0 02/16/2025 12:03 PM EDT Blanca Low RN * PHQ-9 Total Score Answer Date of Assessment Author 0 02/16/2025 12:03 PM EDT Me wolf Low RN * Suicide Severity Rating Answer Date of Assessment Author No Risk 02/16/2025 1:00 AM EDT Yovana Flores RN * [place] Suicide Severity Rating Scale (Q shift for moderate and high) Question Answer Date of Assessment Author 1. In the past month, have y ou wished you were or wished you could go to sleep and not wake up? 0 02/16/2025 1:00 AM EDT Cameron Kumar RN 2. In the past month, have y ou actually had any thoughts of killing yourself? (If no, skip to question 6) 0 02/16/2025 1:00 AM EDT Cameron Flores RN 6. Have you ever done anythi ng, started to do anything, or prepared to do anything to end your life? 0 02/16/2025 1:00 AM EDT Cameron Aguilar RN documented as of this encounter Discharge Summaries * Stephen Covarrubias MD - 03/08/2025 11:12 AM EDT Images from the original note were not included. [facility] Hospitalist Discharge Summary Patient Name: Steve King : 1935 Admit Date: 02/16/2025 Discharge Date: 03/08/2025 Admitting Physician: Sameer Ortega MD Discharging Physician: Stephen Covarrubias MD Reason for Hospitalization: Active Hospital Problems Bilateral pleural effusion Severe aortic stenosis Severe mitral regurgitation Acute pulmonary embolism without acute cor pulmonale (HCC) Chest pain, precordial Dilated cardiomyopathy (HCC) Hypotension Other chest pain Abdominal pain Troponin level elevated MSSA (methicillin susceptible Staphylococcus aureus) infection Conjunctival hyperemia of right eye *Right hip pain NIGHAT (obstructive sleep apnea) Dyslipidemia Major neurocognitive disorder (HCC) Mood disorder Type 2 diabetes mellitus with diabetic polyneuropathy, without long-term current use of insulin (HCC) Environmental allergies Hyperkalemia Rash Dysphagia 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 Medically stable but physically debilitated. Will need long-term IV antibiotics per ID. Follow-up with ID as outpatient. Labs and imaging follow-up needed: none Pending Labs Order Current Status Collection Date and Time ACID FAST BACILLI CULTURE AND SMEAR (STAIN INCLUDED) Preliminary result 02/19/2025 12:43 PM ACID FAST BACILLI CULTURE AND SMEAR (STAIN INCLUDED) Preliminary result 02/19/2025 12:43 PM ECG AND WAVEFORMS - TELEMETRY Preliminary result 03/01/2025 1:02 PM ECG AND WAVEFORMS - TELEMETRY Preliminary result 03/04/2025 7:00 AM ECG AND WAVEFORMS - TELEMETRY Preliminary result 03/07/2025 8:37 PM ECG AND WAVEFORMS - TELEMETRY Preliminary result 03/08/2025 7:39 AM FUNGUS CULTURE (NO STAIN) Preliminary result 02/22/2025 9:03 AM FUNGUS CULTURE (NO STAIN) Preliminary result 02/22/2025 9:05 AM FUNGUS CULTURE (NO STAIN) Preliminary result 02/22/2025 9:05 AM Consultants: Treatment Team: Consulting Physician: Orestes Dunbar MD Consulting Physician: Nick Elkins MD Discharge Exam: Vitals: 03/08/25 1053 BP: Pulse: 77 Resp: Temp: SpO2: Afebrile. General appearance: alert, appears stated age and cooperative ENT/MOUTH: moist mucous membranes, non tender to palpation. Neck: no stifness, no swelling Respiratory: Good air entry bilateral auscultation Cardiovascular: Regular S1-S2 Gastroentestinal: Nondistended and nontender MSK: decreased ROM in all 4 extremities Psyhiatric: alert, awake. Struggling with dementia. Correct Full Discharge Med List: Medication List START taking these medications aspirin 81 mg Tbec Dose: 81 mg Qty: 60 Tablet Refills: 0 Start: March 09, 2025 81 mg, Oral, DAILY ceFAZolin in dextrose 2 gram/100 mL Pgbk Dose: 2 g Refills: 0 Commonly known as: ANCEF 2 g, Intravenous, EVERY 8 HOURS SCHEDULED ketorolac 0.5 % Drop Dose: 1 Drop Qty: 5 mL Refills: 0 Commonly known as: ACULAR 1 Drop, Right Eye, 4 TIMES DAILY pantoprazole 40 mg Tbec Dose: 40 mg Qty: 30 Tablet Refills: 0 Start: March 09, 2025 Commonly known as: PROTONIX 40 mg, Oral, DAILY polyethylene glycol 17 gram Pwpk Dose: 17 g Qty: 30 Packet Refills: 0 Commonly known as: GLYCOLAX, MIRALAX 17 g, Oral, DAILY PRN traMADoL 50 mg Tab Dose: 50 mg Qty: 20 Tablet Refills: 0 Commonly known as: ULTRAM 50 mg, Oral, EVERY 6 HOURS PRN CHANGE how you take these medications * apixaban 5 mg Tab Dose: 2.5 mg Qty: 14 Tablet Refills: 0 Commonly known as: ELIQUIS 2.5 mg, Oral, 2 TIMES DAILY What changed: how much to take * apixaban 5 mg Tab Dose: 5 mg Qty: 60 Tablet Refills: 2 Commonly known as: ELIQUIS 5 mg, Oral, 2 TIMES DAILY What changed: You were already taking a medication with the same name, and this prescription was added. Make sure you understand how and when to take each. * This list has 2 medication(s) that are the same as other medications prescribed for you. Read thedirections carefully, and ask your doctor or other care provider to review them with you. CONTINUE taking these medications atorvastatin 40 mg Tab Dose: 40 mg Refills: 0 Commonly known as: LIPITOR calcium carbonate-vitamin D3 250 mg-3.125 mcg (125 unit) Tab Dose: 1 Tablet Refills: 0 donepeziL 5 mg Tab Dose: 5 mg Refills: 0 Commonly known as: ARICEPT DULoxetine 60 mg Cpdr Dose: 60 mg Refills: 0 Commonly known as: CYMBALTA fluticasone propionate 50 mcg/actuation Spsn Dose: 2 [place] Refills: 0 Commonly known as: FLONASE Lasix 20 mg Tab Dose: 20 mg Refills: 0 Generic drug: fUROsemide metFORMIN 500 mg Tab Dose: 500 mg Refills: 0 Commonly known as: GLUCOPHAGE polyvinyl alcohol 1.4 % Drop Dose: 1 Drop Refills: 0 Commonly known as: LIQUIFILM TEARS tamsulosin 0.4 mg Cap Dose: 0.8 mg Refills: 0 Commonly known as: FLOMAX Where to Get Your Medications These medications were sent to [facility] [place] [address] - [address] [facility] - [phone] [address] [facility] [address] apixaban 5 mg Tab aspirin 81 mg Tbec ketorolac 0.5 % Drop pantoprazole 40 mg Tbec polyethylene glycol 17 gram Pwpk traMADoL 50 mg Tab These medications were sent to [id number] [place] [address] - [address]- [phone] [facility] [place] [address] Hours: 24-hours apixaban 5 mg Tab Information about where to get these medications is not yet available Ask your nurse or doctor about these medications ceFAZolin in dextrose 2 gram/100 mL Pgbk Condition at Discharge: stable Disposition: SNF Follow-up: Jocelyne Bosch MD [address] [place] [id number] Follow up in 1 week(s) [facility]/[address] [address] Total time spent coordinating his discharge: 32 minutes. Stephen Covarrubias MD 03/08/2025 documented in this encounter Medications at Time of Discharge apixaban (ELIQUIS) 5 mg Oral Tablet Take 1 Tablet by mouth 2 times daily. 60 Tablet 2 03/08/2025 aspirin 81 mg Oral Tablet, Delayed Release (E.C.) Take 1 Tablet by mouth daily. 60 Tablet 03/09/2025 atorvastatin (LIPITOR) 40 mg Oral Tablet Take 40 mg by mouth daily. calcium carbonate-vitamin D3 250 mg-3.125 mcg (125 unit) Oral Tablet Take 1 Tablet by mouth daily. donepeziL (ARICEPT) 5 mg Oral Tablet Take 5 mg by mouth nightly. DULoxetine (CYMBALTA) 60 mg Oral Capsule, Delayed Release(E.C.) Take 60 mg by mouth daily. fluticasone propionate (FLONASE) 50 mcg/actuation Nasl [place], Suspension 2 Sprays by Nasal route 2 times daily as needed for Allergies. fUROsemide (LASIX) 20 mg Oral Tablet Take 20 mg by mouth daily. ketorolac (ACULAR) 0.5 % Opht Drops Place 1 Drop into the right eye 4 times daily. 5 mL 03/08/2025 metFORMIN (GLUCOPHAGE) 500 mg Oral Tablet Take 500 mg by mouth 2 times daily. pantoprazole (PROTONIX) 40 mg Oral Tablet, Delayed Release (E.C.) Take 1 Tablet by mouth daily. 30 Tablet 03/09/2025 polyethylene glycol (GLYCOLAX, MIRALAX) 17 gram Oral Powder in Packet Take 17 g by mouth daily as needed for Constipation. 30 Packet 03/08/2025 polyvinyl alcohol (LIQUIFILM TEARS) 1.4 % Opht Drops Place 1 Drop into both eyes as needed for Dry Eyes. tamsulosin (FLOMAX) 0.4 mg Oral Capsule Take 0.8 mg by mouth daily. traMADoL (ULTRAM) 50 mg Oral Tablet Take 1 Tablet by mouth every 6 hours as needed for Pain. 20 Tablet 03/08/2025 ceFAZolin in dextrose (ANCEF) 2 gram/100 mL IV Piggyback Inject 100 mL into the vein every 8 hours for 113 doses. 02/27/2025 04/06/2025 apixaban (ELIQUIS) 5 mg Oral Tablet Take 0.5 Tablets by mouth 2 times daily for 14 days. 14 Tablet 02/23/2025 03/09/2025 documented as of this encounter Ordered Prescriptions Prescription Sig Dispense Quantity Refills Last Filled Start Date End Date traMADoL (ULTRAM) 50 mg Oral Tablet Take 1 Tablet by mouth every 6 hours as needed for Pain. 20 Tablet 03/08/2025 apixaban (ELIQUIS) 5 mg Oral Tablet Take 1 Tablet by mouth 2 times daily. 60 Tablet 2 03/08/2025 aspirin 81 mg Oral Tablet, Delayed Release (E.C.) Take 1 Tablet by mouth daily. 60 Tablet 03/09/2025 pantoprazole (PROTONIX) 40 mg Oral Tablet, Delayed Release (E.C.) Take 1 Tablet by mouth daily. 30 Tablet 03/09/2025 polyethylene glycol (GLYCOLAX, MIRALAX) 17 gram Oral Powder in Packet Take 17 g by mouth daily as needed for Constipation. 30 Packet 03/08/2025 ketorolac (ACULAR) 0.5 % Opht Drops Place 1 Drop into the right eye 4 times daily. 5 mL 03/08/2025 ceFAZolin in dextrose (ANCEF) 2 gram/100 mL IV Piggyback Inject 100 mL into the vein every 8 hours for 113 doses. 02/27/2025 apixaban (ELIQUIS) 5 mg Oral Tablet Take 0.5 Tablets by mouth 2 times daily for 14 days. 14 Tablet 02/23/2025 5 documented in this encounter Discharge Disposition Disposition Code Departure Means Destination Comment s Long Term Facility Ambulance [facility] documented in this encounter Progress Notes * Ghada Heredia RN - 03/08/2025 12:22 PM EDT 03/08/25 1217 Ongoing Discharge Planning Evaluation Discharge to SNF Actual Discharge Plan -03/08/25 CC Final Note: Fabricio with [facility] reports they are now able to accept patient today (03/08) and can accommodate the patient's IV antibiotics. Per MD, patient is medically ready for discharge. CC met with patient at the bedside and spoke to patient's son over telephone. Patient and son remain in agreement with [facility] at discharge. Post acute placement consent completed, faxed to HIM, and placed in chart. Last documented BM on 03/07/25. Preferred Pharmacy: [facility] [place], [place]. Ambulance transportation set up with [facility] at 1330. Voicemail left for Fabricio with [facility] to notify of picker/puller time. Nurse and Charge Nurse updated. CC to sign off, but remain available should further discharge needs arise. Final Note Referral to SEP Care Management (SEP patients only) No Discharge Round Completed Yes Post Acute Facility [facility] Post Acute Form Completed Yes DME at Discharge None Transportation at Discharge Ambulance Date Expected 03/08/25 Time Expected 1330 Confirmed Discharge Transportation Plan? Yes [facility]AR Completed Not Applicable Patient Aware and Agrees with DC Plan Yes Primary Caregiver/Legal Decision Maker aware and agree with Discharge Plan Yes Name of Family member notified son Family Member Notified Relationship to Patient Legal Next of Kin Does family and/or caregiver verbalize readiness, willingness, and ability to provide or support patient's self-management activities as appropriate? Not applicable. Patient not returning home at discharge MD Aware of Plan Yes RN Notified of Plan Yes * Rigoberto Restrepo PTA - 03/08/2025 11:51 AM EDT 03/08/25 1150 PT Subjective Note Type Follow Up Treatment Attempt Patient Room/Unit 435 PT Subjective Comments #1 Patient reporting just getting up to chair with CHIEF SUPPLY CHAIN OFFICER and wants to rest. Possible discharge today. Discussed concern regarding wound VAC with RN and charge account identification clerk. Others Present/Assisting CHIEF SUPPLY CHAIN OFFICER Therapy delay reason Patient/family request therapist return at later time;Other (comment) * Ghada Heredia RN - 03/08/2025 9:57 AM EDT 03/08/25 0936 Ongoing Discharge Planning Evaluation Actual Discharge Plan -03/08/25 CC Update: Per ID's note, patient will need IV cefazolin 2g q8h through 04/05/25. Patient already has a PICC. In addition, patient has a Prevena wound vac that was placed in surgery. CC spoke to Fabricio with [facility] who reports precert was approved; however they arenot able to accommodate patient's doses of IV antibiotics today (03/08). Casinity Chat sent to MD to notify. MD to send discharge prescriptions to [facility] preferred pharmacy of [place], [place] today in anticipation of discharge tomorrow (03/09). Last documented BM on 03/07/25. Post acute placement consent needs to be completed--- will be assigned to CC Discharge Tech. Patient will likely need ambulance transportation at discharge. CC to follow. ADDENDUM: Fabricio with [facility] is now reporting that they can accept patient today and that they are able to accommodate the patient's IV antibiotics. Casinity Chat sent to MD, Charge Nurse, and Nurse to notify. * Rigoberto Restrepo PTA - 03/07/2025 2:32 PM EDT 03/07/25 1429 PT Subjective Note Type Treatment/Progress Patient Room/Unit 435 PT Subjective Comments #1 Patient pleasant and agreeable to therapy. Reports he needs to use the bathroom. Discharge Information This progress note will serve as the discharge summary if no further therapy is provided prior to the patient being discharged from the hospital. Admitting Diagnosis Right hip pain s/p Right hip I&D with head liner exchange/ wound vac 02/22 WBAT/ posterior approach. Code Chest pain 03/02, found to have PE Pain Screening PT/OT Patient Currently in Pain Yes Pain Rating 5 Pain Location Hip Pain Orientation Right Pain Intervention(s) Repositioned;Rest;Ambulation/Increased activity Cognition Orientation Intact Arousal Normal Safety Awareness Impaired Safety Awareness Impairment Minimal Impairments: Needs up to 25% input/direction from therapist in order to identify safety issues and maintain safety. Affect/Ability to cope Normal Command Following Normal Memory Intact Communication Impaired Hearing EMMONAK Vision vision deficits in right eye Precautions Therapy Precautions Yes Total Hip Replacement Posterior hip precautions Weight Bearing Status Right lower extremity;Weight bearing as tolerated Precaution Info Given Weight bearing;To use call light to request assistance with all mobility Other precautions Fall risk Observation Presentation Patient seated in chair Observation IV;Telemetry;Oxygen - nasal cannula;External urinary catheter;Wound vac Additional Comments Wound VAC battery ; concern for wound. Notified RN and MD. Bed Mobility Additional Comments Sitting in chair. Left in chair. Transfers Sit to Stand Minimal assistance;With verbal cues Stand to Sit Minimal assistance;With verbal cues Additional Comments Sit to stand x3 trials. To/from chair. Cueing for hand placement and technique. Gait Gait Minimal assistance;With verbal cues Gait Distance (Feet) 65 Feet Assistive Device 2 Wheel walker Pattern Antalgic;Slow rick;Flexed posture;Wide base of support Weight Bearing Status Weight bearing as tolerated Additional Comments Requiring numerous standing rest breaks. Cueing for proximity to , safety andtechnique. Functional Status Score (FSS-ICU) Is the patient currently in ICU? No PT/OT Mobility Documentation PT/OT Mobility Score 6 AM PAC: How much help from another person does the patient currently need... turning from your back to your side while in a flat bed without using bedrails? 3 moving from lying on your back to sitting on the side of a flat bed without using bedrails? 3 moving to and from a bed to a chair? 3 standing up from a chair using your arms (e.g. wheelchair, or bedside chair)? 3 need to walk in hospital room? 3 climbing 3-5 steps with a railing? 1 AM PAC: BASIC MOBILITY SCORING AM PAC Moblity Raw Score 16 AM PAC Mobility CMS 0-100% Functional Percentage 47.12 AM PAC Mobility CMS G Code Modifier CK Balance Sitting Balance 4+/5 moves/returns trunkal midpoint 1-2 inches in multiple planes Standing Balance 2/5 indep, requires both UE support Education Education To use call light to request assistance with all mobility;Patient/Family Education;Role of Therapy;Safety with mobility;Cues for proper technique;Discharge planning;Up with assistance only;Safe and proper technique with transfers;Safe and proper technique with gait pattern;Educated on benefits of mobility, upright positioning, and getting out of bed;Precautions Patient Safety Patient Safety Patient left in chair with needs in reach;Chair/personal alarm activated Assessment Assessment Decreased gait;Decreased functional mobility;Decreased balance;Decreased ADL status;Decreased activity tolerance ;Decreased endurance;Decreased self-care transfers;Decreased high-level ADLs;Decreased coordination;Decreased Right Lower Extremity ROM;Decreased RightLower Extremity strength Prognosis Good;With continued PT s/p acute discharge Progress Progressing toward goals Rationale for Skilled Therapy Fall Risk;Balance Deficits;Not safe with independent transfers;Not safe ambulating independently;Requires multi- disciplinary team;Able to make measurable improvements;Decreased endurance and tolerance to activity;Needs intensive therapy;Requires physical assistance with ADLs Plan Treatment/Interventions Continue with current plan of care PT Frequency Daily Recommendation PT Recommendation Moderate frequency, moderate intensity five days a week therapy recommended. Time In / Time Out [id number] IP PT Treatment Minutes 25 The total time spent caring for this patient included but was not limited to medical record review;hands-on treatment;communication and education with patient and/or family/caregiver;communication with nursing and/or care coordination/social work regarding patient status and discharge planning * Stephen Covarrubias MD - 03/07/2025 2:31 PM EDT [facility] Progress Note Name: Steve King ADDRESS: [address] [place] [id number] : 1935 AGE: 89 y.o. HPI: 89 y.o., male patient admitted for Right hip pain [M25.551] SUBJECTIVE: Patient seen Sitting up in his chair Reports that the no ketorolac drops are helping better than the artificial tears RN and physical therapist brought to my attention that his wound VAC battery might have OBJECTIVE: I personally reviewed this patient???s laboratories results: CBC: Lab Results Component Value Date WBC 6.2 03/06/2025 RBC 2.95 (L) 03/06/2025 HGB 8.9 (L) 03/06/2025 HCT 28.3 (L) 03/06/2025 MCV 95.9 03/06/2025 MCHC 31.4 03/06/2025 RDW 14.4 03/06/2025 MPV 9.1 03/06/2025 BMP: Lab Results Component Value Date NA 134 (L) 03/02/2025 K 4.2 03/02/2025 CL 101 03/02/2025 CO2 23 03/02/2025 BUN 15 03/02/2025 CREATININE 0.86 03/02/2025 CALCIUM 8.0 (L) 03/02/2025 GLU 78 03/02/2025 RADIOGRAPHIC DATA REVIEWED BY ME: No results found. Results for orders placed during the hospital encounter of 02/16/25 EK EKG [address] [facility] Test Date: 2025-03-01 Pat Name: STEVE KING Department: DEPID Room: [facility] Gender: Male Nitrating Acid Mixer: : 1935 Requested By: STACIA Parson Order Number: [id number] Reading MD: David Mar Measurements Intervals Davin Rate: 75 P: 70 WI: 263 QRS: -29 QRSD: 138 T: 128 QT: 440 QTc: 491 Interpretive Statements SINUS RHYTHM WITH FIRST DEGREE AV BLOCK WITH OCCASIONAL SUPRAVENTRICULAR PREMATURE COMPLEXES BORDERLINE LEFT AXIS DEVIATION LBBB Electronically Signed On 03-01-2025 10:17:38 EDT by David Mar PHYSICAL EXAM: BP 106/57 (BP Location: Left arm, Patient Position: Sitting) Pulse 71 Temp 97.7 ??F (36.5 ??C) (Oral) Resp 16 Ht 6' 4 (1.93 m) Wt 274 lb 11.1 oz (124.6 kg) SpO2 97% BMI 33.44 kg/m?? GENERAL APPEARANCE: not in any distress, appears comfortable. PSYCHIATRIC: Awake. Cooperative. HEENT: No redness of the right eye. No purulent discharge right eye NECK: supple, no lymph node palpated LUNGS: Good entry bilateral auscultation HEART: Regular sinus ABDOMEN: Nondistended EXTREMITIES: Surgical scar on right thigh with some mild redness surrounding the dressing, pulses present and equal bilaterally SKIN: Wound VAC dressing on the right hip, IV site is clean w/o signs of infection NEURO: no tremors ASSESSMENT/PLAN: Active Hospital Problems Diagnosis *Right hip pain Bilateral pleural effusion Severe aortic stenosis Severe mitral regurgitation Acute pulmonary embolism without acute cor pulmonale ([facility]) Chest pain, precordial Dilated cardiomyopathy ([facility]) Hypotension Other chest pain Abdominal pain Troponin level elevated MSSA (methicillin susceptible Staphylococcus aureus) infection Conjunctival hyperemia of right eye NIGHAT (obstructive sleep apnea) Dyslipidemia Major neurocognitive disorder ([facility]) Mood disorder Type 2 diabetes mellitus with diabetic polyneuropathy, without long-term current use of insulin ([facility]) Environmental allergies Hyperkalemia Rash Dysphagia 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 Ketorolac ophthalmic drop to continue Acute PE Continue Eliquis H&H has been stable Continue to monitor for bleeding Bilateral pleural effusion Monitor respiratory status incentive spirometry Out of bed to chair Acute on chronic combined systolic and diastolic CHF EF at 20% Not a candidate for BB or KIKE inhibitor due to hypotension Continue midodrine Chronic hypotension Seems chronic The patient's blood pressure cannot tolerate BB or KIKE inhibitor Continue midodrine Monitor BP closely Pulmonary hypertension No dyspnea Monitor respiratory status Incentive spirometry Right hip infection with MSSA IV antibiotics for 6 weeks End of IV antibiotic course is set for 04/05/2025 Continue IV antibiotics Needs long-term IV antibiotics per ID Atherosclerotic heart disease Continue aspirin Continue statin Paroxysmal atrial fibrillation Not a candidate for beta-cedric or rate control agent due to hypotension Continue Eliquis Morbid obesity Obstructive sleep apnea CPAP at night recommended Physical deconditioning Fall precautions Continue physical therapy Out of bed to chair DVT prophylaxis D/C planning: When stable This note was completed using voice recognition technology. Despite this securities underwriter's best efforts, it may still contain unintended errors. Please contact us if any questions. Stephen Covarrubias MD03/07/2025 2:31 PM * Ghada Heredia RN - 03/07/2025 2:02 PM EDT 03/07/25 1400 Ongoing Discharge Planning Evaluation Actual Discharge Plan -03/07/25 CC Update: Per previous CC note, precert is pending for [facility]. Voicemail left for Fabricio with [facility]. CC awaiting call back. Post acute placement to be completed once precert determination has been made. Transportation pending level of mobility at [facility] emergency department. CC to follow. * Stephen Covarrubias MD - 03/06/2025 4:54 PM EDT [facility] Progress Note Name: Steve King ADDRESS: [address] [place] [address] : 1935 AGE: 89 y.o. HPI: 89 y.o., male patient admitted for Right hip pain [M25.551] SUBJECTIVE: Patient seen Complains of eye pain No drainage from his eyes No chest pain No fever OBJECTIVE: I personally reviewed this patient???s laboratories results: CBC: Lab Results Component Value Date WBC 6.2 03/06/2025 RBC 2.95 (L) 03/06/2025 HGB 8.9 (L) 03/06/2025 HCT 28.3 (L) 03/06/2025 MCV 95.9 03/06/2025 MCHC 31.4 03/06/2025 RDW 14.4 03/06/2025 MPV 9.1 03/06/2025 BMP: Lab Results Component Value Date NA 134 (L) 03/02/2025 K 4.2 03/02/2025 CL 101 03/02/2025 CO2 23 03/02/2025 BUN 15 03/02/2025 CREATININE 0.86 03/02/2025 CALCIUM 8.0 (L) 03/02/2025 GLU 78 03/02/2025 RADIOGRAPHIC DATA REVIEWED BY ME: No results found. Results for orders placed during the hospital encounter of 02/16/25 EK EKG [address] [facility] Test Date: 2025-03-01 Pat Name: STEVE KING Department: DEPID Room: W37 Gender: Male Nitrating Acid Mixer: : 1935 Requested By: STACIA Parson Order Number: [id number] Reading MD: David Mar Measurements Intervals Davin Rate: 75 P: 70 WI: 263 QRS: -29 QRSD: 138 T: 128 QT: 440 QTc: 491 Interpretive Statements SINUS RHYTHM WITH FIRST DEGREE AV BLOCK WITH OCCASIONAL SUPRAVENTRICULAR PREMATURE COMPLEXES BORDERLINE LEFT AXIS DEVIATION LBBB Electronically Signed On 03-01-2025 10:17:38 EDT by David Mar PHYSICAL EXAM: BP 111/65 (BP Location: Right arm, Patient Position: Sitting) Pulse 84 Temp 97.5 ??F (36.4 ??C)(Oral) Resp 18 Ht 6' 4 (1.93 m) Wt 274 lb 14.6 oz (124.7 kg) SpO2 100% BMI 33.46 kg/m?? GENERAL APPEARANCE: not in any distress, appears comfortable. PSYCHIATRIC: Alert, awake HEENT: head atraumatic, normocephalic NECK: supple, no lymph node palpated LUNGS: Good air entry bilateral HEART: Regular S1-S2 ABDOMEN: Nondistended and nontender EXTREMITIES: Wound VAC on right hip area, pulses present and equal bilaterally SKIN: Some redness around the wound VAC dressing, IV site is clean w/o signs of infection NEURO: no tremors ASSESSMENT/PLAN: Active Hospital Problems Diagnosis *Right hip pain Bilateral pleural effusion Severe aortic stenosis Severe mitral regurgitation Acute pulmonary embolism without acute cor pulmonale (HCC) Chest pain, precordial Dilated cardiomyopathy (HCC) Hypotension Other chest pain Abdominal pain Troponin level elevated MSSA (methicillin susceptible Staphylococcus aureus) infection Conjunctival hyperemia of right eye NIGHAT (obstructive sleep apnea) Dyslipidemia Major neurocognitive disorder (HCC) Mood disorder Type 2 diabetes mellitus with diabetic polyneuropathy, without long-term current use of insulin (HCC) Environmental allergies Hyperkalemia Rash Dysphagia 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 Physical exam is unremarkable No redness No purulent discharge Will try ketorolac drops The artificial tears did not help Discontinue artificial tears Acute PE Continue Eliquis H&H stable with a hemoglobin at 8.9 Bilateral pleural effusion Monitor respiratory status Incentive spirometry Currently out of bed Acute on chronic combined systolic and diastolic CHF EF at 20% Not a candidate for BB or KIKE inhibitor due to hypotension Midodrine to continue today Seems compensated Chronic hypotension Continue midodrine The patient's blood pressure cannot tolerate BB or KIKE inhibitor Pulmonary hypertension Out of bed to chair Mental respiratory status Right hip infection with MSSA IV antibiotics for 6 weeks End of IV antibiotic course is set for 04/05/2025 IV antibiotics to continue Discussed with ID Atherosclerotic heart disease Continue medical management Aspirin Statin Paroxysmal atrial fibrillation Not a candidate for beta-cedric or rate control agent due to hypotension Eliquis to continue today Morbid obesity Obstructive sleep apnea CPAP at night Physical deconditioning Out of bed to chair Physical therapy DVT prophylaxis D/C planning: awaiting placement This note was completed using voice recognition technology. Despite this securities underwriter's best efforts, it may still contain unintended errors. Please contact us if any questions. Stephen Covarrubias MD03/06/2025 4:54 PM * Blanca Low RN - 03/06/2025 3:20 PM EDT 03/06/25 1517 Ongoing Discharge Planning Evaluation Actual Discharge Plan 03-06-2025 Discharge update: CC spoke with Fabricio [phone] from [facility]-he is still waiting on insurance precert. Fabricio hopes to have authorization later this afternoon. Ifprecert comes in, they will have a bed available on Sunday, March 07 after 3:00pm. MATTHEW/DANIA to contact Fabricio [phone] Sunday morning. MATTHEW continues to follow. * Tawny Bal PTA - 03/06/2025 2:14 PM EDT 03/06/25 1410 PT Subjective Note Type Treatment/Progress Patient Room/Unit 435 PT Subjective Comments #1 Pt pleasant and agreeable to therapy (Upon further observation pt kellen was improperly fit, not catching any urine. Pt sitting in hisown urine and required nela care upon standing.) Discharge Information This progress note will serve as the discharge summary if no further therapy is provided prior to the patient being discharged from the hospital. Pain Screening PT/OT Patient Currently in Pain Yes Pain Rating Patient unable to rate pain Pain Location Hip Pain Orientation Right Pain Intervention(s) Ambulation/Increased activity;Repositioned Cognition Orientation Intact Arousal Normal Safety Awareness Normal Affect/Ability to cope Normal Command Following Normal Memory Intact Communication Impaired Hearing EMMONAK Vision R eye continues to give him pain Precautions Therapy Precautions Yes Total Hip Replacement Posterior hip precautions Weight Bearing Status Right lower extremity;Weight bearing as tolerated Precaution Info Given Yes;Weight bearing;To use call light to request assistance with all mobility Observation Presentation Patient resting in bed Observation IV;Telemetry;Oxygen - nasal cannula;External urinary catheter;Wound vac Vitals VSS Bed Mobility Rolling Stand by assist Supine to Sit Stand by assist Transfers Sit to Stand Minimal assistance;With verbal cues Stand to Sit Stand by assistance;With verbal cues Ventilator Mobility Patient mobilized on ventilator No Gait Gait Contact guard assist Gait Distance (Feet) 60 Feet Assistive Device 2 Wheel walker Pattern Antalgic;Slow rick;Flexed posture;Wide base of support Weight Bearing Status Weight bearing as tolerated Functional Status Score (FSS-ICU) Is the patient currently in ICU? No PT/OT Mobility Documentation PT/OT Mobility Score 6 AM PAC: How much help from another person does the patient currently need... turning from your back to your side while in a flat bed without using bedrails? 3 moving from lying on your back to sitting on the side of a flat bed without using bedrails? 3 moving to and from a bed to a chair? 3 standing up from a chair using your arms (e.g. wheelchair, or bedside chair)? 3 need to walk in hospital room? 3 climbing 3-5 steps with a railing? 2 AM PAC: BASIC MOBILITY SCORING AM PAC Moblity Raw Score 17 AM PAC Mobility CMS 0-100% Functional Percentage 43.83 AM PAC Mobility CMS G Code Modifier CK Balance Sitting Balance 4+/5 moves/returns trunkal midpoint 1-2 inches in multiple planes Standing Balance 2/5 indep, requires both UE support Exercise Exercise No Education Education To use call light to request assistance with all mobility;Patient/Family Education;Role of Therapy;Safety with mobility;Cues for proper technique;Discharge planning;Up with assistance only;Safe and proper technique with transfers;Safe and proper technique with gait pattern;Educated on benefits of mobility, upright positioning, and getting out of bed;Precautions Patient Safety Patient Safety Patient left in chair with needs in reach;Chair/personal alarm activated Continuous Passive Motion CPM No Assessment Assessment Decreased gait;Decreased functional mobility;Decreased balance;Decreased ADL status;Decreased activity tolerance ;Decreased endurance;Decreased self-care transfers;Decreased high-level ADLs;Decreased coordination Prognosis Good;With continued PT s/p acute discharge Progress Slow progress toward goals Rationale for Skilled Therapy Fall Risk;Balance Deficits;Not safe with independent transfers;Not safe ambulating independently;Requires multi- disciplinary team;Able to make measurable improvements;Decreased endurance and tolerance to activity Plan Treatment/Interventions Continue with current plan of care PT Frequency Daily Recommendation PT Recommendation Moderate frequency, moderate intensity five days a week therapy recommended. Time In / Time Out 1240/1303 IP PT Treatment Minutes 23 The total time spent caring for this patient included but was not limited to medical record review;hands-on treatment;communication and education with patient and/or family/caregiver;assessment of the patient's progress since the last session;clinical judgement necessary for treatment planning for next session * Nick Elkins MD - 03/06/2025 10:31 AM EDT [facility] Infectious Diseases Progress Note Date of Admission: 02/16/2025 Primary Care Physician: No Pcp, Per Patient Antibiotics: Current Antibiotics - IV Cefazolin Subjective: Afebrile, on 2L NC. Sitting up to chair. C/o eye ongoing eye pain, no vision changes. Tolerating abx well. Allergies Allergen Reactions Tetanus Vaccines And Toxoid Swelling Pt also states blisters with swelling Patient Vitals for the past 24 hrs: BP Temp Temp src Pulse Resp SpO2 Weight 03/06/25 0728 92/77 97.5 ??F (36.4 ??C) Oral 85 18 95 % -- 03/06/25 0610 96/57 97.3 ??F (36.3 ??C) Oral 73 18 95 % -- 03/06/25 0509 -- -- -- 71 -- -- -- 03/06/25 0459 -- -- -- -- -- -- 274 lb 14.6 oz (124.7 kg) 03/06/25 0304 -- -- -- 68 -- -- -- 03/05/25 2353 109/57 97.6 ??F (36.4 ??C) Oral 74 18 96 % -- 03/05/25 2311 -- -- -- 65 -- -- -- 03/05/25 2116 97/61 97.7 ??F (36.5 ??C) Oral 76 18 98 % -- 03/05/25 1711 -- -- -- 66 -- -- -- 03/05/25 1631 117/71 97.4 ??F (36.3 ??C) Oral 98 18 100 % -- 03/05/25 1307 -- -- -- 71 -- -- -- 03/05/25 1148 111/61 97.4 ??F (36.3 ??C) Oral 71 18 94 % -- 03/05/25 1121 -- -- -- 71 -- -- -- Weight: 274 lb 14.6 oz (124.7 kg) Physical Exam: General Appearance: Alert, cooperative, no distress Head: Normocephalic Eyes: conjunctiva/corneas clear Nose: Nares normal, septum midline, mucosa normal, no drainage Mouth: mucosa moist Lungs: Good AE B/L, respirations unlabored Heart: Regular rate and rhythm, S1 and S2 normal, +murmur Abdomen: Soft, non-tender, bowel sounds active Extremities: surgical incision to right hip with Prevena vac in place, no edema Skin: no rashes or lesions Neurologic: Grossly normal Line: +PIV Active LDAs PICC Line Duration PICC Single Lumen 02/26/25 Right Basilic 8 days Drain Duration External Urinary Catheter Male Purewick -- days Wound Duration Incision/Wound Closed Surgical Thigh Proximal;Right 12 days Incision/Wound MASD Gluteal cleft Bilateral;Mid extending to bilateral inner buttock 4 days Medications Prior to Admission Medication Sig Dispense Refill Last Dose/Taking [DISCONTINUED] apixaban (ELIQUIS) 5 mg Oral Tablet Take 5 mg by mouth 2 times daily. Taking atorvastatin (LIPITOR) 40 mg Oral Tablet Take 40 mg by mouth daily. Taking calcium carbonate-vitamin D3 250 mg-3.125 mcg (125 unit) Oral Tablet Take 1 Tablet by mouth daily. Taking donepeziL (ARICEPT) 5 mg Oral Tablet Take 5 mg by mouth nightly. Taking DULoxetine (CYMBALTA) 60 mg Oral Capsule, Delayed Release(E.C.) Take 60 mg by mouth daily. Taking fluticasone propionate (FLONASE) 50 mcg/actuation Nasl [place], Suspension 2 Sprays by Nasal route 2 times daily as needed for Allergies. Taking fUROsemide (LASIX) 20 mg Oral Tablet Take 20 mg by mouth daily. Taking metFORMIN (GLUCOPHAGE) 500 mg Oral Tablet Take 500 mg by mouth 2 times daily. Taking polyvinyl alcohol (LIQUIFILM TEARS) 1.4 % Opht Drops Place 1 Drop into both eyes as needed for Dry Eyes. Taking tamsulosin (FLOMAX) 0.4 mg Oral Capsule Take 0.8 mg by mouth daily. Taking Current Facility-Administered Medications Medication Dose Route Frequency Provider Last Rate Last Admin acetaminophen (TYLENOL) tablet 650 mg 650 mg Oral Q4H PRN Berenice Dallas, DO 650 mg at 03/01/25 0806 alteplase (ACTIVASE) injection 1 mg 1 mg Intercatheter PRN Katie Viera APRN aluminum & magnesium hydroxide-simethicone 200-200-20 mg/5 mL suspension 30 mL 30 mL Oral Q4H PRN Mason Jacome DO 30 mL at 03/01/25 0908 apixaban (ELIQUIS) tablet 10 mg 10 mg Oral BID Ida Henson MD 10 mg at 03/06/25 0934 Followed by [START ON 03/09/2025] apixaban (ELIQUIS) tablet 5 mg 5 mg Oral BID Ida Henson MD aspirin EC tablet 81 mg 81 mg Oral Daily Ricarda Velasquez APRN 81 mg at 03/06/25 0934 atorvastatin (LIPITOR) tablet 40 mg 40 mg Oral Daily Litzy Sepulveda APRN 40 mg at 03/06/25 0935 bisacodyL (DULCOLAX) EC tablet 10 mg 10 mg Oral BID Mason Jacome DO 10 mg at 03/04/254 Or bisacodyL (DULCOLAX) suppository 10 mg 10 mg Rectal BID Mason Jacome DO 10 mg at 03/04/25 1710 calcium carbonate-vitamin D 500 mg-5 mcg (200 unit) per tablet 1 Tablet 1 Tablet Oral Daily Litzy Sepulveda APRN 1 Tablet at 03/06/25 0934 ceFAZolin (ANCEF) IVPB 2 g 2 g Intravenous 3 times per day Nick Elkins MD Stopped at03/06/25 0653 dextrose 50 % solution 25 mL 25 mL Intravenous PRN Berenice Dallas DO 25 mL at 03/02/25 1239 docusate sodium (COLACE) capsule 100 mg 100 mg Oral BID Mason Jacome DO 100 mg at 03/06/25 0934 donepeziL (ARICEPT) tablet 5 mg 5 mg Oral Nightly Litzy Sepulveda APRN 5 mg at 03/05/252128 DULoxetine (CYMBALTA) capsule 60 mg 60 mg Oral Daily Litzy Sepulveda APRN 60 mg at 03/06/25 0934 fluticasone propionate (FLONASE) 50 mcg/actuation nasal spray 2 [place] 2 [place] Nasal BID PRN Litzy Sepulveda APRN glucagon (GLUCAGEN) injection 1 mg 1 mg Intramuscular PRN Berenice Dallas DO And sterile water injection 1 mL 1 mL Injection PRN Berenice Dallas DO insulin aspart U-100 (NovoLOG) injection 1-15 Units 1-15 Units Subcutaneous QID Berenice Dallas DO 3 Units at 03/05/252128 insulin glargine U-100 (LANTUS) injection 8 Units 8 Units Subcutaneous BID (Insulin) Ozzie Fernandez MD 8 Units at 03/06/25 0628 magnesium hydroxide (MILK OF MAGNESIA) 400 mg/5 mL suspension 30 mL 30 mL Oral Daily Mason Jacome DO 30 mL at 03/04/25 0906 melatonin tablet 5-10 mg 5-10 mg Oral Nightly PRN Taryn Camilo APRN 5 mg at 03/05/252127 miconazole (MICATIN) 2 % powder Topical BID Ozzie Fernandez MD Given at 03/06/25 0900 midodrine (PROAMATINE) tablet 7.5 mg 7.5 mg Oral TID WM Ozzie Fernandez MD 7.5 mg at 03/06/25 0934 oxyCODONE (ROXICODONE) immediate release tablet 5-10 mg 5-10 mg Oral Q3H PRN Mason Jacome DO 10mg at 03/05/252127 pantoprazole (PROTONIX) tablet 40 mg 40 mg Oral Daily Ozzie Fernandez MD 40 mg at 03/06/25 0934 polyethylene glycol (GLYCOLAX, MIRALAX) packet 17 g 17 g Oral Daily Sameer Ortega MD 17 g at 03/05/25 0938 polyvinyl alcohol (LIQUIFILM TEARS) 1.4 % ophthalmic solution 1 Drop 1 Drop Both Eyes Q6H PRN Stephen Covarrubias MD 1 Drop at 03/06/25 0619 senna (SENOKOT) tablet 17.2 mg 17.2 mg Oral BID Sameer Ortega MD 17.2 mg at 03/04/25 2114 sodium chloride 0.9 % 250 mL IV bolus Intravenous PRN Ozzie Fernandez MD Stopped at 03/02/25 1731 sodium chloride 0.9% IV line flush 20-50 mL 20-50 mL Intravenous PRN Katie Viera APRN Stopped at 03/02/25 0757 sodium chloride 0.9% IV line flush 20-50 mL 20-50 mL Intravenous PRN Sameer Ortega MD Stopped at 02/25/25 1453 sodium chloride 0.9% syringe 10 mL 10 mL Intravenous 3 times per day Katie Viera APRN 10 mLat 03/06/25 0618 sodium chloride 0.9% syringe Intravenous 2 times per day David Mar MD 10 mL at 03/06/25 0934 sodium chloride 0.9% syringe Intravenous PRN David Mar MD sodium chloride 0.9% syringe Intravenous PRN Katie Viera EVS MANAGER 10 mL at 03/06/25 0619 tamsulosin (FLOMAX) capsule 0.4 mg 0.4 mg Oral Daily Ozzie Fernandez MD 0.4 mg at 03/06/25 0900 Immunization History Administered Date(s) Administered Influenza Vaccine Trivalent Adjuvanted PF 08/06/2020 Moderna SARS-CoV-2 Vaccine 12+ Yrs (Light blue border) 11/18/2020, 06/09/2021 Moderna SARS-CoV-2 Vaccine 12+ Yrs Spikevax 08/24/2023 Quadrivalent Influenza High Dose 06/24/2021 Labs: Lab Results Component Value Date WBC 6.2 03/06/2025 HGB 8.9 (L) 03/06/2025 HCT 28.3 (L) 03/06/2025 MCV 95.9 03/06/2025 PLT 373 (H) 03/06/2025 Lab Results Component Value Date GLU 78 03/02/2025 NA 134 (L) 03/02/2025 K 4.2 03/02/2025 CO2 23 03/02/2025 CL 101 03/02/2025 BUN 15 03/02/2025 CREATININE 0.86 03/02/2025 Results for orders placed or performed during the hospital encounter of 02/16/25 (from the past 2 weeks) ANAEROBIC CULTURE (NO STAIN) Collection Time: 02/22/25 9:03 AM Specimen: Hip, Right; Tissue Result Value Ref Range Culture No anaerobic growth at 5 days. WOUND CULTURE (STAIN INCLUDED) Collection Time: 02/22/25 9:03 AM Specimen: Hip, Right; Tissue Result Value Ref Range Culture No growth at 94 hours. Stain Moderate RBCs Stain Rare WBCs Stain No organisms seen FUNGUS CULTURE (NO STAIN) Collection Time: 02/22/25 9:03 AM Specimen: Hip, Right; Tissue Result Value Ref Range Culture No growth of fungus at 5 days. ANAEROBIC CULTURE (NO STAIN) Collection Time: 02/22/25 9:05 AM Specimen: Hip, Right; Tissue Result Value Ref Range Culture No anaerobic growth at 5 days. WOUND CULTURE (STAIN INCLUDED) Collection Time: 02/22/25 9:05 AM Specimen: Hip, Right; Tissue Result Value Ref Range Culture No growth at 94 hours. Stain Few RBCs Stain No WBCs seen Stain No organisms seen FUNGUS CULTURE (NO STAIN) Collection Time: 02/22/25 9:05 AM Specimen: Hip, Right; Tissue Result Value Ref Range Culture No growth of fungus at 5 days. ANAEROBIC CULTURE (NO STAIN) Collection Time: 02/22/25 9:05 AM Specimen: Hip, Right; Tissue Result Value Ref Range Culture No anaerobic growth at 5 days. WOUND CULTURE (STAIN INCLUDED) Collection Time: 02/22/25 9:05 AM Specimen: Hip, Right; Tissue Result Value Ref Range Culture No growth at 94 hours. Stain Few RBCs Stain No WBCs seen Stain No organisms seen FUNGUS CULTURE (NO STAIN) Collection Time: 02/22/25 9:05 AM Specimen: Hip, Right; Tissue Result Value Ref Range Culture No growth of fungus at 5 days. BLOOD CULTURE (NO STAIN) Collection Time: 02/23/25 2:55 PM Specimen: Blood, Venous Result Value Ref Range Culture Result No Growth at 120 hours. BLOOD CULTURE (NO STAIN) Collection Time: 02/23/25 4:06 PM Specimen: Blood, Venous Result Value Ref Range Culture Result No Growth at 120 hours. BLOOD CULTURE (NO STAIN) Collection Time: 03/01/25 9:59 AM Specimen: Blood, Venous Result Value Ref Range Culture Result No Growth at 96 hours. BLOOD CULTURE (NO STAIN) Collection Time: 03/01/25 10:09 AM Specimen: Blood, Venous Result Value Ref Range Culture Result No Growth at 96 hours. STAPHYLOCOCCUS AUREUS SCREEN Collection Time: 03/01/25 10:29 AM Specimen: Nares; Swab Result Value Ref Range Staph aureus PCR Detected (A) Not Detected MRSA PCR Not Detected Not Detected Lab Results Component Value Date SEDRATE 50 (H) 02/23/2025 Lab Results Component Value Date CRP 44.49 (H) 03/01/2025 Assessment # Right hip prosthetic joint infection Important to note he had a right total hip replacement on May 2022 at an outside hospital. Per review of medical records he had a staph auris infection and he was treated with 6 weeks of IV cefazolin and oral rifampin until August 2022. Unclear if he had oral suppressive therapy after completing this course. Was not able to find any evidence of this in the records. Patient has been complaining of uncomfortable sensation around his right hip. On 02/18 he had an right hip MRI which showed findings concerning for a right hip abscess. On 02/19/2025 had a hip aspirationwith 294 RBC 56,000 TNC (84% segmented cells). Culture grew MSSA. So on 02/22/2025 he underwent for right hip arthrotomy with extensive debridement head and liner exchange for infection. IntraOp cultures were obtained. 02/19 Synovasure was positive as expected # Episode of Rapid Response on 03/01/25: seems to be related to PE as below. Procal negative, not consistent with a new pneumonia. # Eye Pain // Blurry Vision: unclear reason. # New Diagnosed PE in LLL # Bilateral Pleural Effusions with adjacent compressive atelectasis: as mentioned does not seem to be due to pneumonia. # Prior history of MRSA versus MSSA infection # PAF # T2DM # NIGHAT # Heart failure Plan - Continue IV Cefazolin x 6 weeks from 02/22 - 04/05/25. May need to consider suppressive dose after. - Avoided rifampin due to apixaban - Remove PICC once IV ABX completed - Discussed with Hospitalist would recommend inpatient/outpatient optho eval - Monitor CBC, CMP, ESR and CRP Infectious Disease Disposition Perspective - Medically Ready for Discharge: Yes to rehab Timeframe for follow-up: 3-4 weeks To be arranged: By my office at discharge Medication recommendations: IV antibiotic treatment No pending issues from Infectious Disease standpoint. Please call with any questions.ID will sign off. Note done with contribution of Katie Viera NP who assisted as a scribe. I personally saw and examined the patient. Findings on this note were reviewed, edited and modifiedby myself as pertinent. Laboratory and Imaging Findings were reviewed by myself. Nick Mandujano MD * Kalyn Cortez, OT - 03/05/2025 2:53 PM EDT 03/05/25 1443 OT Subjective Note Type Treatment/Progress Patient Room/Unit 435 OT Subjective Comments #1 I have been sitting here for 45 minutes waiting to have help going to the bathroom. Discharge Information This progress note will serve as the discharge summary if no further therapy is provided prior to the patient being discharged from the hospital. Admitting Diagnosis Right hip pain s/p Right hip I&D with head liner exchange/ wound vac 02/22 WBAT/ posterior approach. Code Chest pain 03/02, found to have PE Precautions Therapy Precautions Yes Total Hip Replacement Posterior hip precautions Weight Bearing Status Right lower extremity;Weight bearing as tolerated Precaution Info Given Yes;Weight bearing;To use call light to request assistance with all mobility Cognition Orientation Intact Arousal Normal Safety Awareness Normal Affect/Ability to cope Normal Command Following Normal Memory Intact Communication Impaired Hearing EMMONAK Vision reports having scratched R eye Pain Screening PT/OT Patient Currently in Pain Yes Pain Rating Patient unable to rate pain Pain Location Hip Pain Orientation Right Pain Intervention(s) Ambulation/Increased activity;Repositioned Observation Presentation Patient seated in chair Observation IV;Telemetry;Oxygen - nasal cannula;External urinary catheter;Wound vac Vitals no signs of vital distress ADL Interventions Where Assessed Sitting on toilet/bedside commode Toileting External catheter;Total;Posterior nela care (ext cath removed for mobility; required total A for posterior hygiene) Bed Mobility Additional Comments UIC Transfers Sit to Stand Minimal assistance;With verbal cues;Walker Stand to Sit Contact guard assistance Ventilator Mobility Patient mobilized on ventilator No Functional Transfers Toilet Transfers Contact guard assist Additional Comments to/from 3:1 BSc placed over commode. Pt would benefit from harsh BSC d/t hips rubbing and wound vac in place. OT Gait Gait Contact guard assist Assistive Device 2 Wheel walker Weight Bearing Status Weight bearing as tolerated Balance Sitting Balance 4+/5 moves/returns trunkal midpoint 1-2 inches in multiple planes Standing Balance 2/5 indep, requires both UE support PT/OT Mobility Documentation PT/OT Mobility Score 6 Exercise Exercise No Functional Status Score (FSS-ICU) Is the patient currently in ICU? No AM PAC: How much help from another person does the patient currently need... putting on and taking off regular lower body clothing? 2 bathing (including washing, rinsing, drying)? 2 toileting, which includes using toilet, bedpan or urinal? 1 putting on and taking off regular upper body clothing? 3 taking care of personal grooming such as brushing teeth? 3 eating meals? 3 AM PAC DAILY ACTIVITY SCORING Daily Activity Raw Score 14 AM PAC Daily Activity CMS 0-100% Functional Percentage 59.67 AM PAC Daily Activity CMS G Code Modifier CK Education Education To use call light to request assistance with all mobility;Patient/Family Education;Role of Therapy;Safety with mobility;Cues for proper technique;Discharge planning;Up with assistance only;Safe and proper technique with transfers;Safe and proper technique with gait pattern;Educated on benefits of mobility, upright positioning, and getting out of bed;Precautions Patient Safety Patient left in chair with needs in reach;Chair/personal alarm activated Assessment Assessment Decreased ADL status;Decreased UE strength;Decreased Safe judgement during ADL;Decreasedself-care transfers;Decreased high-level ADLs Progress Progressing toward goals Rationale for Skilled Therapy Fall Risk;Balance Deficits;Not safe with independent transfers;Not safe ambulating independently;Requires physical assistance with ADLs;Needs intensive therapy;Requires multi-disciplinary team;Able to make measurable improvements Additional Goals Additional Goals ADLs: CGA UB, Mod a LB with AE to adhere to hip precautions (not addressed this session) Additionals Goals 2 ADL/functional transfers: SBA (not met; continue goal) Additional Goals 3 Met/ new goal: Bed mobility: Mod I (not addressed d/t pt UIC) Plan Treatment Interventions ADL retraining;Functional transfer training;UE strengthening/ROM;Patient/Family training;Equipment eval/education;Continued evaluation Recommendation OT Recommendation Moderate frequency, moderate intensity five days a week therapy recommended. Time In / Time Out [id number] IP OT Individual Treatment Minutes 26 The total time spent caring for this patient included but was not limited to medical record review;hands-on treatment;communication and education with patient and/or family/caregiver;clinical judgement necessary for treatment planning for next session * Tawny Bal PTA - 03/05/2025 12:02 PM EDT 03/05/25 1156 PT Subjective Note Type Treatment/Progress Patient Room/Unit 435 PT Subjective Comments #1 Pt pleasant and agreeable to therapy Discharge Information This progress note will serve as the discharge summary if no further therapy is provided prior to the patient being discharged from the hospital. Admitting Diagnosis Right hip pain s/p Right hip I&D with head liner exchange/ wound vac 02/22 WBAT/ posterior approach. Code Chest pain 03/02, found to have PE Pain Screening PT/OT Patient Currently in Pain Yes Pain Rating Patient unable to rate pain Pain Location Hip Pain Orientation Right Pain Intervention(s) Repositioned;Rest;Emotional support Cognition Orientation Intact Arousal Normal Safety Awareness Normal Affect/Ability to cope Normal Command Following Normal Memory Intact Communication Impaired Hearing EMMONAK Vision vision deficits in right eye, feeling better Precautions Therapy Precautions Yes Total Hip Replacement Posterior hip precautions Weight Bearing Status Right lower extremity;Weight bearing as tolerated Precaution Info Given Yes;Weight bearing;To use call light to request assistance with all mobility Observation Presentation Patient resting in bed Observation IV;Telemetry;Oxygen - nasal cannula;External urinary catheter Vitals SpO2 98% on 2L O2, desat to 89% with getting to chair Bed Mobility Rolling Stand by assist Supine to Sit Stand by assist Additional Comments Pt did not have ABD donned upon arrival into room Transfers Sit to Stand Minimal assistance;With verbal cues Stand to Sit Contact guard assistance;Stand by assistance;With verbal cues Bed to/from chair Contact guard assist;Stand by assist;With verbal cues Gait Gait Contact guard assist Gait Distance (Feet) 6 Feet Assistive Device 2 Wheel walker Pattern Antalgic;Slow rick Functional Status Score (FSS-ICU) Is the patient currently in ICU? No PT/OT Mobility Documentation PT/OT Mobility Score 6 AM PAC: How much help from another person does the patient currently need... turning from your back to your side while in a flat bed without using bedrails? 3 moving from lying on your back to sitting on the side of a flat bed without using bedrails? 3 moving to and from a bed to a chair? 3 standing up from a chair using your arms (e.g. wheelchair, or bedside chair)? 3 need to walk in hospital room? 3 climbing 3-5 steps with a railing? 2 AM PAC: BASIC MOBILITY SCORING AM PAC Moblity Raw Score 17 AM PAC Mobility CMS 0-100% Functional Percentage 43.83 AM [facility] Mobility CMS G Code Modifier CK Balance Sitting Balance 4+/5 moves/returns trunkal midpoint 1-2 inches in multiple planes Standing Balance 2/5 indep, requires both UE support Exercise Exercise No Education Education To use call light to request assistance with all mobility;Patient/Family Education;Role of Therapy;Safety with mobility;Cues for proper technique;Discharge planning;Up with assistance only;Safe and proper technique with transfers;Safe and proper technique with gait pattern;Educated on benefits of mobility, upright positioning, and getting out of bed Patient Safety Patient Safety Patient left in chair with needs in reach;Chair/personal alarm activated;Nursing notified of status Continuous Passive Motion CPM No Assessment Assessment Decreased gait;Decreased functional mobility;Decreased balance;Decreased ADL status;Decreased activity tolerance ;Decreased endurance;Decreased self-care transfers;Decreased high-level ADLs;Decreased coordination Prognosis Good;With continued PT s/p acute discharge Progress Slow progress toward goals Rationale for Skilled Therapy Fall Risk;Balance Deficits;Not safe with independent transfers;Not safe ambulating independently;Requires multi- disciplinary team;Able to make measurable improvements;Decreased endurance and tolerance to activity Plan Treatment/Interventions Continue with current plan of care PT Frequency Daily Recommendation PT Recommendation Moderate frequency, moderate intensity five days a week therapy recommended. Time In / Time Out 1132/1155 IP PT Treatment Minutes 23 The total time spent caring for this patient included but was not limited to medical record review;hands-on treatment;communication and education with patient and/or family/caregiver;assessment of the patient's progress since the last session;clinical judgement necessary for treatment planning for next session Updated PT note needed in next 24hrs? Request addressed by PT * Stephen Covarrubias MD - 03/05/2025 9:24 AM EDT [facility] Progress Note Name: Steve King ADDRESS: [address] [place] [id number] : 1935 AGE: 89 y.o. HPI: 89 y.o., male patient admitted for Right hip pain [M25.551] SUBJECTIVE: Patient seen examined at bedside Complaining of dry eyes No chest pain Afebrile OBJECTIVE: I personally reviewed this patient???s laboratories results: CBC: Lab Results Component Value Date WBC 6.3 03/04/2025 RBC 2.92 (L) 03/04/2025 HGB 9.1 (L) 03/04/2025 HCT 28.5 (L) 03/04/2025 MCV 97.6 03/04/2025 MCHC 31.9 03/04/2025 RDW 14.4 03/04/2025 MPV 9.0 03/04/2025 BMP: Lab Results Component Value Date NA 134 (L) 03/02/2025 K 4.2 03/02/2025 CL 101 03/02/2025 CO2 23 03/02/2025 BUN 15 03/02/2025 CREATININE 0.86 03/02/2025 CALCIUM 8.0 (L) 03/02/2025 GLU 78 03/02/2025 RADIOGRAPHIC DATA REVIEWED BY ME: No results found. Results for orders placed during the hospital encounter of 02/16/25 EK EKG [address] [facility] Test Date: 2025-03-01 Pat Name: STEVE KING Department: DEPID Room: [facility] Gender: Male Nitrating Acid Mixer: : 1935 Requested By: STACIA Parson Order Number: [id number] Reading MD: David Mar Measurements Intervals Davin Rate: 75 P: 70 WI: 263 QRS: -29 QRSD: 138 T: 128 QT: 440 QTc: 491 Interpretive Statements SINUS RHYTHM WITH FIRST DEGREE AV BLOCK WITH OCCASIONAL SUPRAVENTRICULAR PREMATURE COMPLEXES BORDERLINE LEFT AXIS DEVIATION LBBB Electronically Signed On 03-01-2025 10:17:38 EDT by David Mar PHYSICAL EXAM: BP 109/68 (BP Location: Right arm, Patient Position: Semi Fowlers) Pulse 69 Temp 97.4 ??F (36.3??C) (Oral) Resp 18 Ht 6' 4 (1.93 m) Wt 275 lb 5.7 oz (124.9 kg) SpO2 95% BMI 33.52 kg/m?? GENERAL APPEARANCE: not in any distress, appears comfortable. PSYCHIATRIC: Alert and awake. Pleasant HEENT: head atraumatic, normocephalic NECK: supple, no lymph node palpated LUNGS: Good air entry bilateral auscultation HEART: Rate is controlled ABDOMEN: Morbidly obese EXTREMITIES: no gross deformities, no edema, pulses present and equal bilaterally SKIN: Chronic skin changes NEURO: no tremors ASSESSMENT/PLAN : Active Hospital Problems Diagnosis *Right hip pain Bilateral pleural effusion Severe aortic stenosis Severe mitral regurgitation Acute pulmonary embolism without acute cor pulmonale (HCC) Chest pain, precordial Dilated cardiomyopathy (HCC) Hypotension Other chest pain Abdominal pain Troponin level elevated MSSA (methicillin susceptible Staphylococcus aureus) infection Conjunctival hyperemia of right eye NIGHAT (obstructive sleep apnea) Dyslipidemia Major neurocognitive disorder (HCC) Mood disorder Type 2 diabetes mellitus with diabetic polyneuropathy, without long-term current use of insulin (HCC) Environmental allergies Hyperkalemia Rash Dysphagia 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) Paroxysmal A-fib (HCC) BPH (benign prostatic hyperplasia) Xerophthalmia Artificial tears See orders Acute PE Eliquis to continue today H&H reviewed today shows stable hemoglobin at 9.1 Bilateral pleural effusion Monitor respiratory status Incentive spirometry Currently out of bed Acute on chronic combined systolic and diastolic CHF EF at 20% Not a candidate for BB or KIKE inhibitor due to hypotension Midodrine to continue today Seems compensated Chronic hypotension Midodrine to continue today The patient's blood pressure cannot tolerate BB or KIKE inhibitor Pulmonary hypertension Continue out of bed to chair Continue to monitor respiratory status Right hip infection with MSSA IV antibiotics for 6 weeks End of IV antibiotic course is set for 04/05/2025 Continue IV antibiotics Atherosclerotic heart disease Medical management Continue statin Continue aspirin Paroxysmal atrial fibrillation Not a candidate for beta-cedric or rate control agent due to hypotension Continue Eliquis Rate is currently controlled Morbid obesity Obstructive sleep apnea CPAP at night? Continue to monitor closely Physical deconditioning Physical therapy as tolerated Out of bed to chair DVT prophylaxis: Eliquis D/C planning: Awaiting placement This note was completed using voice recognition technology. Despite this securities underwriter's best efforts, it may still contain unintended errors. Please contact us if any questions. Stephen Covarrubias MD03/05/2025 9:24 AM * Blanca Low RN - 03/04/2025 3:16 PM EDT 03/04/25 1514 Ongoing Discharge Planning Evaluation Actual Discharge Plan 03-04-2025 [place] update: CC sent updated clincials to [facility] [email or web address] states that they will not have a bed available until Sunday, March 07. CC notified MD and continues to follow. * Stephen Covarrubias MD - 03/04/2025 3:11 PM EDT [facility] Progress Note Name: Steve King ADDRESS: [address] [place] [address] [facility] [place] [id number] [facility] 1935 AGE: 89 y.o. HPI: 89 y.o., male patient admitted for Right hip pain [M25.551] SUBJECTIVE: Patient seen examined at bedside Afebrile Sitting up in his chair Currently having lunch OBJECTIVE: I personally reviewed this patient???s laboratories results: CBC: Lab Results Component Value Date WBC 6.3 03/04/2025 RBC 2.92 (L) 03/04/2025 HGB 9.1 (L) 03/04/2025 HCT 28.5 (L) 03/04/2025 MCV 97.6 03/04/2025 MCHC 31.9 03/04/2025 RDW 14.4 03/04/2025 MPV 9.0 03/04/2025 BMP: Lab Results Component Value Date NA 134 (L) 03/02/2025 K 4.2 03/02/2025 CL 101 03/02/2025 CO2 23 03/02/2025 BUN 15 03/02/2025 CREATININE 0.86 03/02/2025 CALCIUM 8.0 (L) 03/02/2025 GLU 78 03/02/2025 RADIOGRAPHIC DATA REVIEWED BY ME: No results found. Results for orders placed during the hospital encounter of 02/16/25 EK EKG 12 LEAD Impression [facility] Test Date: 2025-03-01 Pat Name: STEVE KING Department: DEPID Room: W370 Gender: Male Nitrating Acid Mixer: : 1935 Requested By: STACIA Parson Order Number: [id number] Reading MD: David Mar Measurements Intervals Davin Rate: 75 P: 70 WI: 263 QRS: -29 QRSD: 138 T: 128 QT: 440 QTc: 491 Interpretive Statements SINUS RHYTHM WITH FIRST DEGREE AV BLOCK WITH OCCASIONAL SUPRAVENTRICULAR PREMATURE COMPLEXES BORDERLINE LEFT AXIS DEVIATION LBBB Electronically Signed On 03-01-2025 10:17:38 EDT by David Mar PHYSICAL EXAM: BP 114/54 (BP Location: Right arm) Pulse 74 Temp 97.4 ??F (36.3 ??C) (Oral) Resp 16 Ht 6' 4 (1.93 m) Wt 274 lb 7.6 oz (124.5 kg) SpO2 100% BMI 33.41 kg/m?? GENERAL APPEARANCE: not in any distress, appears comfortable. PSYCHIATRIC: Alert and awake. Pleasant HEENT: head atraumatic, normocephalic NECK: supple, no lymph node palpated LUNGS: No rales or crackles HEART: Rate is controlled ABDOMEN: No tenderness EXTREMITIES: No pitting edema of his lower extremities, pulses present and equal bilaterally SKIN: no rash, no redness, IV site is clean w/o signs of infection NEURO: no tremors ASSESSMENT/PLAN : Active Hospital Problems Diagnosis *Right hip pain Bilateral pleural effusion Severe aortic stenosis Severe mitral regurgitation Acute pulmonary embolism without acute cor pulmonale ([facility]) Chest pain, precordial Dilated cardiomyopathy ([facility]) Hypotension Other chest pain Abdominal pain Troponin level elevated MSSA (methicillin susceptible Staphylococcus aureus) infection Conjunctival hyperemia of right eye NIGHAT (obstructive sleep apnea) Dyslipidemia Major neurocognitive disorder ([facility]) Mood disorder Type 2 diabetes mellitus with diabetic polyneuropathy, without long-term current use of insulin ([facility]) Environmental allergies Hyperkalemia Rash Dysphagia 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) ([facility]) Paroxysmal A-fib ([facility]) BPH (benign prostatic hyperplasia) Acute PE Continue Eliquis Labs reviewed today shows a stable hemoglobin at 9.1 Continue to monitor for bleeding Bilateral pleural effusion Continue to monitor respiratory status Incentive spirometry Out of bed to chair Acute on chronic combined systolic and diastolic CHF EF at 20% Not a candidate for BB or KIKE inhibitor due to hypotension Continue midodrine No signs of acute decompensation at this time Chronic hypotension Continue midodrine The patient's blood pressure cannot tolerate BB or KIKE inhibitor Pulmonary hypertension Monitor respiratory status Out of bed to chair when possible Incentive spirometry Right hip infection with MSSA IV antibiotics for 6 weeks End of IV antibiotic course is set for 04/05/2025 Atherosclerotic heart disease Medical management Continue statin Continue aspirin Paroxysmal atrial fibrillation Not a candidate for beta-cedric or rate control agent due to hypotension Rate is controlled Continue Eliquis Continue daily Morbid obesity Obstructive sleep apnea Continue to monitor respiratory status Physical deconditioning Continue follow-up with precautions Awaiting placement Out of bed to chair D/C planning: Awaiting placement This note was completed using voice recognition technology. Despite this securities underwriter's best efforts, it may still contain unintended errors. Please contact us if any questions. Stephen Covarrubias MD03/04/2025 3:11 PM * Ida Henson MD - 03/04/2025 2:07 PM EDT Images from the original note were not included. PULMONARY MEDICINE PROGRESS NOTE Length of stay: LOS: 12 days Subjective/Interval history: pt feels well, OOB to chair , no cough , talking , and no chest pain awaiting bed placement Infusions MV Settings: MECHANICAL VENTILATION (last filed) SUPPLEMENTAL O2 & NIV (last filed) O2 Device: Nasal cannula O2 Flow Rate (L/min): 2 lpm Active LDAs PICC Line Duration PICC Single Lumen 02/26/25 Right Basilic 6 days Drain Duration External Urinary Catheter Male Purewick -- days Wound Duration Incision/Wound Closed Surgical Thigh Proximal;Right Incision/Wound MASD Gluteal cleft Bilateral;Mid extending to bilateral inner buttock 10 days 2 days Current Meds apixaban 10 mg Oral BID Followed by [START ON 03/09/2025] apixaban 5 mg Oral BID aspirin 81 mg Oral Daily atorvastatin 40 mg Oral Daily bisacodyL 10 mg Oral BID Or bisacodyL 10 mg Rectal BID calcium carbonate-vitamin D 1 Tablet Oral Daily WM ceFAZolin 1 g Intravenous 3 times per day docusate sodium 100 mg Oral BID donepeziL 5 mg Oral Nightly DULoxetine 60 mg Oral Daily insulin aspart U-100 1-15 Units Subcutaneous QID WM insulin glargine 8 Units Subcutaneous BID (Insulin) magnesium hydroxide 30 mL Oral Daily miconazole Topical BID midodrine 7.5 mg Oral TID WM pantoprazole 40 mg Oral Daily polyethylene glycol 17 g Oral Daily senna 17.2 mg Oral BID sodium chloride 0.9% 10 mL Intravenous 3 times per day sodium chloride 0.9% Intravenous 2 times per day tamsulosin 0.4 mg Oral Daily PRN Meds acetaminophen, alteplase, aluminum & magnesium hydroxide-simethicone, dextrose, fluticasone propionate, glucagon AND sterile water, melatonin, oxyCODONE, polyvinyl alcohol, sodium chloride 0.9 % 250 mL IV bolus, sodium chloride 0.9%, sodium chloride 0.9%, sodium chloride 0.9%, sodium chloride 0.9% Past Medical, Family and Social histories were reviewed and are unchanged . Exam: Vitals: 03/04/25 1301 BP: Pulse: 74 Resp: Temp: SpO2: Temp (24hrs), Av.3 ??F (36.3 ??C), Min:97.1 ??F (36.2 ??C), Max:97.7 ??F (36.5 ??C) & BP Min: 100/67 Max: 114/54 Intake/Output Summary (Last 24 hours) at 03/04/2025 1407 Last data filed at 03/04/2025 0607 Gross per 24 hour Intake -- Output 1300 ml Net -1300 ml Wt Readings from Last 2 Encounters: 03/04/25 274 lb 7.6 oz (124.5 kg) Admit weight: Weight: 251 lb 12.3 oz (114.2 kg) General appearance: Chronically ill-appearing, Obese in no acute distress, while on O2 supplementation. Head: normocephalic and atraumatic Eyes: pupils equal round and reactive to light and sclera anicteric ENT: mucous membranes moist, oral hygiene is good Neck/Lymphatic: supple, no adenopathy, and no thyromegaly Respiratory System: decrease BS bases Cardiovascular: irregular , + murmer Gastrointestinal: soft, nontender, nondistended, no mass, and no rigidity or gross organomegaly Musculoskeletal: no cyanosis or edema Neurological: neuro : focal limitations of movement of right upper ext . Dermatological: Incision/Wound Closed Surgical Thigh Proximal;Right Incision/Wound MASD Gluteal cleft Bilateral;Mid extending to bilateral inner buttock per nursing Medications: Scheduled Meds: apixaban 10 mg Oral BID Followed by [START ON 03/09/2025] apixaban 5 mg Oral BID aspirin 81 mg Oral Daily atorvastatin 40 mg Oral Daily bisacodyL 10 mg Oral BID Or bisacodyL 10 mg Rectal BID calcium carbonate-vitamin D 1 Tablet Oral Daily WM ceFAZolin 1 g Intravenous 3 times per day docusate sodium 100 mg Oral BID donepeziL 5 mg Oral Nightly DULoxetine 60 mg Oral Daily insulin aspart U-100 1-15 Units Subcutaneous QID WM insulin glargine 8 Units Subcutaneous BID (Insulin) magnesium hydroxide 30 mL Oral Daily miconazole Topical BID midodrine 7.5 mg Oral TID WM pantoprazole 40 mg Oral Daily polyethylene glycol 17 g Oral Daily senna 17.2 mg Oral BID sodium chloride 0.9% 10 mL Intravenous 3 times per day sodium chloride 0.9% Intravenous 2 times per day tamsulosin 0.4 mg Oral Daily Labs: ABGs: No results for input(s): PH , PCO2 , PO2 , HCO3 , O2SAT in the last 72 hours. CBC: Recent Labs 03/02/25 0618 03/04/25 0609 WBC 9.5 6.3 HGB 9.3* 9.1* HCT 29.0* 28.5* MCV 97.3 97.6 PLT 280 322 BMP: Recent Labs 03/02/2518 NA 134* K 4.2 CL 101 CO2 23 BUN 15 CREATININE 0.86 LIVER PROFILE: No results for input(s): AST , ALT , LIPASE , AMYLASE , BILIDIR , BILITOT , ALKPHOS in the last 72 hours. Invalid input(s): ALB PT/INR: No results for input(s): PROTIME , INR in the last 72 hours. APTT: No results for input(s): APTT in the last 72 hours. UA:No results for input(s): NITRITE , COLORU , PHUR , LABCAST , WBCUA , RBCUA , MUCUS , TRICHOMONAS , YEAST , BACTERIA , CLARITYU , SPECGRAV , LEUKOCYTESUR , UROBILINOGEN , BILIRUBINUR , BLOODU , GLUCOSEU , KETONESU , AMORPHOUS in the last 72 hours. ECHO: No results found for this or any previous visit. Most recent Imaging: [facility] LOWER EXTREMITY VENOUS BILATERAL Conclusions * No evidence of deep vein thrombosis identified in the bilateral lower extremities. * No evidence of superficial thrombosis identified in the bilateral lower extremities. Assessment: Right hip pain [M25.551] Active Hospital Problems Diagnosis *Right hip pain Bilateral pleural effusion Severe aortic stenosis Severe mitral regurgitation Acute pulmonary embolism without acute cor pulmonale (HCC) Chest pain, precordial Dilated cardiomyopathy (HCC) Hypotension Other chest pain Abdominal pain Troponin level elevated MSSA (methicillin susceptible Staphylococcus aureus) infection Conjunctival hyperemia of right eye NIGHAT (obstructive sleep apnea) Dyslipidemia Major neurocognitive disorder (HCC) Mood disorder Type 2 diabetes mellitus with diabetic polyneuropathy, without long-term current use of insulin (HCC) Environmental allergies Hyperkalemia Rash Dysphagia 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 Shortness of breath is multifactorial secondary to 1. New left lower pulmonary artery subsegmental pulmonary emboli No DVT in lower extremities low oxygen : sat > 90% , comfortable : stable 2. Bilateral pleural effusions 3. Severe congestive mixed systolic/diastolic heart failure I do believe that the patient's EF 20% is overestimated 4. Severe valvular heart disease with severe aortic stenosis and severe MR 5. Pulmonary hypertension most likely in my opinion related to group 2 rather to group 4 also group III nighat Right hip infection with MSSA. Code Status: DNR Plan: Patient was seen and evaluated during rounds were led by me. Pt's condition and multiple complex problems and diagnoses were discussed. plan was formulated as mentioned above and further emphasized below. also I discussed my plan with pt eliquis : 10 mg p.o. x 7 days and then 5 mg p.o. twice daily this is for DVT prophylaxis not only for atrial fibrillation... Note that the patient was on Eliquis for atrial fibrillation at 2.5 twice daily and despite that he had clot thus I will continue the dose of 5 mg bid recommend optimization of cardiac fx pulm [id number] will be signing off please call if needed thanks kandi Discussed with RN, RT. Care team Ida Henson MD Pulmonary and Critical Care Medicine level 2 Disclaimer- This note was completed using voice recognition software. Despite my review, it may still contain unintended errors, typos etc. Please do not hesitate to contact me through hospital paging service with questions. * Sabine Aj, OT - 03/04/2025 1:47 PM EDT 03/04/25 1342 OT Subjective Note Type Chart Review;Treatment/Progress Patient Room/Unit 435 OT Subjective Comments #1 Patient in bed, agreeable, pleasant Discharge Information This progress note will serve as the discharge summary if no further therapy is provided prior to the patient being discharged from the hospital. Admitting Diagnosis Right hip pain s/p Right hip I&D with head liner exchange/ wound vac 02/22 WBAT/ posterior approach. Code Chest pain 03/02, found to have PE Precautions Therapy Precautions Yes Total Hip Replacement Posterior hip precautions Weight Bearing Status Right lower extremity;Weight bearing as tolerated Precaution Info Given Yes;Weight bearing;To use call light to request assistance with all mobility Cognition Orientation Intact Arousal Normal Safety Awareness Normal Affect/Ability to cope Normal Command Following Normal Memory Intact Communication Impaired Hearing EMMONAK Vision vision deficits in right eye, feeling better Pain Screening PT/OT Patient Currently in Pain Yes Pain Rating Patient unable to rate pain Pain Location Hip Pain Orientation Right Pain Intervention(s) Repositioned;Rest Observation Presentation Patient resting in bed Posture tall endomorphic elderly male Observation IV;Telemetry;Bed alarm;Oxygen - nasal cannula;External urinary catheter Vitals SpO2 98% on 2L O2, desat to 89% with getting to chair Bed Mobility Rolling Contact guard assist Supine to Sit Contact guard assist Additional Comments removed hip abd pillow Transfers Sit to Stand Minimal assistance;With raised bed height;Walker Stand to Sit Minimal assistance Bed to/from chair Minimal assistance;Contact guard assist;Walker Additional Comments elevated bed height to adhere to posterior precautions, STS x4 Gait Gait Minimal assistance Gait Distance (Feet) 4 Feet Assistive Device 2 Wheel walker Pattern Antalgic;Slow rick Balance Sitting Balance 4+/5 moves/returns trunkal midpoint 1-2 inches in multiple planes Standing Balance 2/5 indep, requires both UE support PT/OT Mobility Documentation PT/OT Mobility Score 6 ADL Interventions Where Assessed Edge of bed;Chair Feeding Assistance Set up;Drink from cup/straw LE Dressing Assistance Total Toileting External catheter AM PAC: How much help from another person does the patient currently need... putting on and taking off regular lower body clothing? 2 bathing (including washing, rinsing, drying)? 2 toileting, which includes using toilet, bedpan or urinal? 1 putting on and taking off regular upper body clothing? 3 taking care of personal grooming such as brushing teeth? 3 eating meals? 3 AM PAC DAILY ACTIVITY SCORING Daily Activity Raw Score 14 AM PAC Daily Activity CMS 0-100% Functional Percentage 59.67 AM PAC Daily Activity CMS G Code Modifier CK Education Education To use call light to request assistance with all mobility;Patient/Family Education;Role of Therapy;Safety with mobility;Cues for proper technique;Discharge planning;Up with assistance only;Precautions;Safe and proper posture/positioning;Safe and proper technique with transfers;Safe and proper technique with gait pattern;Educated on benefits of mobility, upright positioning, and getting out of bed Patient Safety Patient left in chair with needs in reach;Chair/personal alarm activated Assessment Assessment Decreased ADL status;Decreased UE strength;Decreased Safe judgement during ADL;Decreasedself-care transfers;Decreased high-level ADLs Rationale for Skilled Therapy Fall Risk;Balance Deficits;Not safe with independent transfers;Not safe ambulating independently;Requires physical assistance with ADLs;Needs intensive therapy;Requires multi-disciplinary team;Able to make measurable improvements Additional Goals Additional Goals ADLs: CGA UB, Mod a LB with AE to adhere to hip precautions Additionals Goals 2 ADL/functional transfers: SBA Additional Goals 3 Met/ new goal: Bed mobility: Mod I Recommendation OT Recommendation Moderate frequency, moderate intensity five days a week therapy recommended. Time In / Time Out [phone] IP OT Individual Treatment Minutes 25 The total time spent caring for this patient included but was not limited to medical record review;hands-on treatment;communication and education with patient and/or family/caregiver;assessment of the patient's progress since the last session;clinical judgement necessary for treatment planning for next session;communication with nursing and/or care coordination/social work regarding patient status and discharge planning * Ida Henson MD - 03/03/2025 1:56 PM EDT Images from the original note were not included. PULMONARY MEDICINE PROGRESS NOTE Length of stay: LOS: 11 days Subjective/Interval history: Temperature is 97.7, recent blood pressure 117/63, saturation 98% on 2 L/min nasal cannula Initiated on apixaban. Infusions MV Settings: MECHANICAL VENTILATION (last filed) SUPPLEMENTAL O2 & NIV (last filed) O2 Device: Nasal cannula O2 Flow Rate (L/min): 2 lpm Active LDAs PICC Line Duration PICC Single Lumen 02/26/25 Right Basilic 5 days Drain Duration External Urinary Catheter Male Purewick -- days Wound Duration Incision/Wound Closed Surgical Thigh Proximal;Right 9 days Incision/Wound MASD Gluteal cleft Bilateral;Mid extending to bilateral inner buttock 1 day Current Meds apixaban 10 mg Oral BID Followed by [START ON 03/09/2025] apixaban 5 mg Oral BID aspirin 81 mg Oral Daily atorvastatin 40 mg Oral Daily bisacodyL 10 mg Oral BID Or bisacodyL 10 mg Rectal BID calcium carbonate-vitamin D 1 Tablet Oral Daily WM ceFAZolin 1 g Intravenous 3 times per day docusate sodium 100 mg Oral BID donepeziL 5 mg Oral Nightly DULoxetine 60 mg Oral Daily insulin aspart U-100 1-15 Units Subcutaneous QID WM insulin glargine 8 Units Subcutaneous BID (Insulin) magnesium hydroxide 30 mL Oral Daily miconazole Topical BID midodrine 7.5 mg Oral TID WM pantoprazole 40 mg Oral Daily polyethylene glycol 17 g Oral Daily senna 17.2 mg Oral BID sodium chloride 0.9% 10 mL Intravenous 3 times per day sodium chloride 0.9% Intravenous 2 times per day tamsulosin 0.4 mg Oral Daily tobramycin-dexamethasone Right Eye TID PRN Meds acetaminophen, alteplase, aluminum & magnesium hydroxide-simethicone, dextrose, fluticasone propionate, glucagon AND sterile water, melatonin, oxyCODONE, polyvinyl alcohol, sodium chloride 0.9 % 250 mL IV bolus, sodium chloride 0.9%, sodium chloride 0.9%, sodium chloride 0.9%, sodium chloride 0.9% Past Medical, Family and Social histories were reviewed and are unchanged . Exam: Vitals: 03/03/25 1251 BP: Pulse: 83 Resp: Temp: SpO2: Temp (24hrs), Av.7 ??F (36.5 ??C), Min:97.2 ??F (36.2 ??C), Max:98 ??F (36.7 ??C) & BP Min: 70/46 Max: 117/63 Intake/Output Summary (Last 24 hours) at 03/03/2025 1356 Last data filed at 03/03/2025 0838 Gross per 24 hour Intake 1320.24 ml Output 1450 ml Net -129.76 ml Wt Readings from Last 2 Encounters: 03/03/25 273 lb 2.4 oz (123.9 kg) Admit weight: Weight: 251 lb 12.3 oz (114.2 kg) General appearance: Chronically ill-appearing, Overweight in no acute distress while on O2 supplementation. Head: normocephalic and atraumatic Eyes: pupils equal round and reactive to light and sclera anicteric ENT: mucous membranes moist, oral hygiene is good Neck/Lymphatic: supple, no adenopathy, and no thyromegaly Respiratory System: decreased breath sounds in the bases few rhonchi's noted no wheezing, Cardiovascular: Irregular with positive systolic murmur at the apex and also diastolic murmur at the right sternal border Gastrointestinal: soft, nontender, nondistended, no mass, and no rigidity or gross organomegaly Musculoskeletal: +1 edema Neurological: Alert, non-focal and following simple commands Dermatological: Normal Medications: Scheduled Meds: apixaban 10 mg Oral BID Followed by [START ON 03/09/2025] apixaban 5 mg Oral BID aspirin 81 mg Oral Daily atorvastatin 40 mg Oral Daily bisacodyL 10 mg Oral BID Or bisacodyL 10 mg Rectal BID calcium carbonate-vitamin D 1 Tablet Oral Daily WM ceFAZolin 1 g Intravenous 3 times per day docusate sodium 100 mg Oral BID donepeziL 5 mg Oral Nightly DULoxetine 60 mg Oral Daily insulin aspart U-100 1-15 Units Subcutaneous QID WM insulin glargine 8 Units Subcutaneous BID (Insulin) magnesium hydroxide 30 mL Oral Daily miconazole Topical BID midodrine 7.5 mg Oral TID WM pantoprazole 40 mg Oral Daily polyethylene glycol 17 g Oral Daily senna 17.2 mg Oral BID sodium chloride 0.9% 10 mL Intravenous 3 times per day sodium chloride 0.9% Intravenous 2 times per day tamsulosin 0.4 mg Oral Daily tobramycin-dexamethasone Right Eye TID Labs: ABGs: No results for input(s): PH , PCO2 , PO2 , HCO3 , O2SAT in the last 72 hours. CBC: Recent Labs 02/28/25 1700 03/01/25 0931 03/02/25 0618 WBC -- 7.7 9.5 HGB 9.7* 11.6* 9.3* HCT 30.5* 35.5* 29.0* MCV -- 95.9 97.3 PLT -- 252 280 BMP: Recent Labs 03/01/25 0931 03/02/25 0618 NA 136 134* K 4.2 4.2 CL 102 101 CO2 23 23 PHOS 2.5 -- BUN 15 15 CREATININE 0.84 0.86 LIVER PROFILE: Recent Labs 03/01/25 0931 AST 15 ALT <5 BILIDIR <0.2 ALKPHOS 99 PT/INR: Recent Labs 03/01/25 0931 INR 1.33* APTT: No results for input(s): APTT in the last 72 hours. UA:No results for input(s): NITRITE , COLORU , PHUR , LABCAST , WBCUA , RBCUA , MUCUS , TRICHOMONAS , YEAST , BACTERIA , CLARITYU , SPECGRAV , LEUKOCYTESUR , UROBILINOGEN , BILIRUBINUR , BLOODU , GLUCOSEU , KETONESU , AMORPHOUS in the last 72 hours. ECHO: No results found for this or any previous visit. Most recent Imaging: [facility] LOWER EXTREMITY VENOUS BILATERAL Conclusions * No evidence of deep vein thrombosis identified in the bilateral lower extremities. * No evidence of superficial thrombosis identified in the bilateral lower extremities. CT scan of the chest was reviewed Ultrasound lower extremities no DVT Assessment: Right hip pain [M25.551] Active Hospital Problems Diagnosis *Right hip pain Bilateral pleural effusion Severe aortic stenosis Severe mitral regurgitation Acute pulmonary embolism without acute cor pulmonale (HCC) Chest pain, precordial Dilated cardiomyopathy (HCC) Hypotension Other chest pain Abdominal pain Troponin level elevated MSSA (methicillin susceptible Staphylococcus aureus) infection Conjunctival hyperemia of right eye NIGHAT (obstructive sleep apnea) Dyslipidemia Major neurocognitive disorder (HCC) Mood disorder Type 2 diabetes mellitus with diabetic polyneuropathy, without long-term current use of insulin (HCC) Environmental allergies Hyperkalemia Rash Dysphagia 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 Shortness of breath is multifactorial secondary to 1. New left lower pulmonary artery subsegmental pulmonary emboli No DVT in lower extremities 2. Bilateral pleural effusions 3. Severe congestive mixed systolic/diastolic heart failure I do believe that the patient's EF 20% is overestimated 4. Severe valvular heart disease with severe aortic stenosis and severe MR 5. Pulmonary hypertension most likely in my opinion related to group 2 rather to group 4 also group III nighat Right hip infection with MSSA. Code Status: DNR Plan: Continue Eliquis at this time patient is on 10 mg p.o. x 7 days and then 5 mg p.o. twice daily thisis for DVT prophylaxis not only for atrial fibrillation... Note that the patient was on Eliquis foratrial fibrillation at 2.5 twice daily and despite that he had clot thus I will continue the dose of 5 mg Maximize management for valvular heart disease defer to cardiology I do believe that the patient's heart failure is a pressing issue no need for thoracentesis at thistime Management of current infection MSSA per infectious disease and primary team Disposition Perspective - Medically Ready for Discharge: Appropriate from pulmonary standpoint withcontinuation of Eliquis anticipate 0-1 days Ready when / if?: Condition improved Defer to primary team about disposition and appropriate placement Discussed with RN, RT. Care team Ida Henson MD Pulmonary and Critical Care Medicine Level 3 Disclaimer- This note was completed using voice recognition software. Despite my review, it may still contain unintended errors, typos etc. Please do not hesitate to contact me through hospital paging service with questions. * Kathe Trevizo, PT - 03/03/2025 1:21 PM EDT 03/03/25 1314 PT Subjective Note Type Treatment/Progress Patient Room/Unit 435 PT Subjective Comments #1 Pt is agreeable to PT. Wants to walk. Others Present/Assisting brother and son are present visiting. Discharge Information This progress note will serve as the discharge summary if no further therapy is provided prior to the patient being discharged from the hospital. Pain Screening PT/OT Patient Currently in Pain Yes Additional Comments right hip Cognition Orientation Intact Arousal Normal Safety Awareness Normal Affect/Ability to cope Normal Command Following Normal Memory Intact Communication Intact Hearing EMMONAK Vision vision deficits in right eye--States they think it may be scratched Precautions Total Hip Replacement Posterior hip precautions Weight Bearing Status Weight bearing as tolerated Observation Presentation Patient resting in bed Posture tall stature, flexed posture. relies heavily on RW for postural support. Observation Bed alarm;Oxygen - nasal cannula;External urinary catheter;Wound vac Vitals Spo2 98% on 2LPM. removed NC during bed exercises to see if it would be needed for exertion.Pt maintained Spo2 >92% throughout ther ex. Does demonstrate SOB with min exertion. Bed Mobility Rolling Stand by assist Supine to Sit Stand by assist;Head of bed elevated;With bed rails Transfers Sit to Stand Minimal assistance;With verbal cues Stand to Sit Minimal assistance;With verbal cues Gait Gait Minimal assistance Gait Distance (Feet) 30 Feet Assistive Device 2 Wheel walker Pattern Antalgic;Slow rick;Decreased stance time R;Step to Weight Bearing Status Weight bearing as tolerated Additional Comments VCs for walker proximity, posture. Fatigues very quickly. Vitals Spo2 94% on RA after gait, but appears winded. replaced canula to aid with recovery. PT/OT Mobility Documentation PT/OT Mobility Score 6 AM PAC: How much help from another person does the patient currently need... turning from your back to your side while in a flat bed without using bedrails? 3 moving from lying on your back to sitting on the side of a flat bed without using bedrails? 3 moving to and from a bed to a chair? 3 standing up from a chair using your arms (e.g. wheelchair, or bedside chair)? 3 need to walk in hospital room? 3 climbing 3-5 steps with a railing? 2 AM PAC: BASIC MOBILITY SCORING AM PAC Moblity Raw Score 17 AM PAC Mobility CMS 0-100% Functional Percentage 43.83 AM PAC Mobility CMS G Code Modifier CK Balance Sitting Balance 4+/5 moves/returns trunkal midpoint 1-2 inches in multiple planes Standing Balance 2/5 indep, requires both UE support Exercise Exercise Yes Additional Comments ther ex performed bilat for premobility muscle activation and ROM. Supine Supine Ankle Pumps 10 Supine Quad Sets 10 Supine Hip Abduction 10 Education Education Role of Therapy;Safety with mobility;Cues for proper technique;Discharge planning;Up withassistance only Patient Safety Patient Safety Patient left in chair with needs in reach;Chair/personal alarm activated;Nursing notified of status Assessment Progress Slow progress toward goals Additional Comments recent PE caused slight setback with activity tolerance. Very motivated. Plan Treatment/Interventions Continue with current plan of care PT Frequency Daily Recommendation PT Recommendation Moderate frequency, moderate intensity five days a week therapy recommended. Time In / Time Out [id number] IP PT Treatment Minutes 34 (15 TE, 18 FA) The total time spent caring for this patient included but was not limited to medical record review;hands-on treatment;communication and education with patient and/or family/caregiver;communication with nursing and/or care coordination/social work regarding patient status and discharge planning;asses sment of the patient's progress since the last session * Stephen Covarrubias MD - 03/03/2025 9:16 AM EDT [facility] Progress Note Name: Steve King ADDRESS: [address] [place] [id number] : 1935 AGE: 89 y.o. HPI: 89 y.o., male patient admitted for Right hip pain [M25.551] SUBJECTIVE: Patient seen examined at bedside Was sleeping when I entered his room Easily arousable No acute complaints Denies any chest pain No palpitations No cough No SOB No abdominal pain No nausea No vomiting OBJECTIVE: I personally reviewed this patient???s laboratories results: CBC: Lab Results Component Value Date WBC 9.5 03/02/2025 RBC 2.98 (L) 03/02/2025 HGB 9.3 (L) 03/02/2025 HCT 29.0 (L) 03/02/2025 MCV 97.3 03/02/2025 MCHC 32.1 03/02/2025 RDW 14.6 03/02/2025 MPV 8.5 (L) 03/02/2025 BMP: Lab Results Component Value Date NA 134 (L) 03/02/2025 K 4.2 03/02/2025 CL 101 03/02/2025 CO2 23 03/02/2025 BUN 15 03/02/2025 CREATININE 0.86 03/02/2025 CALCIUM 8.0 (L) 03/02/2025 GLU 78 03/02/2025 RADIOGRAPHIC DATA REVIEWED BY ME: [facility] US LOWER EXTREMITY VENOUS BILATERAL Result Date: 03/02/2025 Conclusions * No evidence of deep vein thrombosis identified in the bilateral lower extremities. * No evidence of superficial thrombosis identified in the bilateral lower extremities. Results for orders placed during the hospital encounter of 02/16/25 EK EKG [address] 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 GENERAL APPEARANCE: not in any distress, appears comfortable. Morbidly obese PSYCHIATRIC: alert and oriented x 4 (time, place, person and situation), normal affect, stable mood. HEENT: head atraumatic, normocephalic NECK: supple, no lymph node palpated LUNGS: clear breath sounds bilaterally, no rales, no wheezes HEART: Regular S1-S2 ABDOMEN: Morbidly obese but nontender. No organomegaly palpated, no rebound, no guarding : Not examined EXTREMITIES: No pitting edema of the lower extremities, pulses present and equal bilaterally SKIN: No new rash, IV site is clean w/o signs of infection NEURO: No tremors ASSESSMENT/PLAN: Active Hospital Problems Diagnosis *Right hip pain Bilateral pleural effusion Severe aortic stenosis Severe mitral regurgitation Acute pulmonary embolism without acute cor pulmonale ([facility]) Chest pain, precordial Dilated cardiomyopathy ([facility]) Hypotension Other chest pain Abdominal pain Troponin level elevated MSSA (methicillin susceptible Staphylococcus aureus) infection Conjunctival hyperemia of right eye NIGHAT (obstructive sleep apnea) Dyslipidemia Major neurocognitive disorder ([facility]) Mood disorder Type 2 diabetes mellitus with diabetic polyneuropathy, without long-term current use of insulin ([facility]) Environmental allergies Hyperkalemia Rash Dysphagia 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) Paroxysmal A-fib (HCC) BPH (benign prostatic hyperplasia) Acute PE Eliquis Monitor for bleeding Bilateral pleural effusion Currently not in any respiratory distress No respiratory symptoms Acute on chronic combined systolic and diastolic CHF EF at 20% Followed by cardiology BP is low Therefore cannot tolerate beta-cedric or KIKE inhibitor On midodrine for hypotension Chronic hypotension Stable on midodrine Continue midodrine Cannot tolerate BB or KIKE inhibitor Pulmonary hypertension Monitor respiratory status Right hip infection with MSSA IV antibiotic Case discussed with ID Atherosclerotic heart disease Medical management Aspirin Statin Paroxysmal atrial fibrillation Not a candidate for beta-cedric or rate control agent due to hypotension Continue Eliquis Rate is controlled Morbid obesity Obstructive sleep apnea Monitor respiratory status Physical deconditioning Fall precautions Needs placement D/C planning: Needs placement This note was completed using voice recognition technology. Despite this securities underwriter's best efforts, it may still contain unintended errors. Please contact us if any questions. Stephen Covarrubias MD03/03/2025 9:16 AM * Quinten Perez MD - 03/03/2025 9:15 AM EDT Heart & Vascular Progress Note PATIENT: Steve Villarreal Cardiology following for: chest pain Subjective: Still with abd pain No chest pain or dyspnea Objective: Vitals: 03/03/25 0838 BP: 112/67 Pulse: 74 Resp: 18 Temp: 97.2 ??F (36.2 ??C) SpO2: 100% I/O 24 hours: Intake/Output Summary (Last 24 hours) at 03/03/2025 0915 Last data filed at 03/03/2025 0618 Gross per 24 hour Intake 1620.24 ml Output 850 ml Net 770.24 ml Physical Exam: Pt in no distress. Neck supple Heart - S1, S2 reg rate/rhythm, no M/R/G. Lungs - clear Chest wall - nontender Abd - soft, NT Extremities- + cady LE edema Neuro - Alert and oriented Mood and affect appropriate Medication: apixaban 10 mg Oral BID Followed by [START ON 03/09/2025] apixaban 5 mg Oral BID aspirin 81 mg Oral Daily atorvastatin 40 mg Oral Daily bisacodyL 10 mg Oral BID Or bisacodyL 10 mg Rectal BID calcium carbonate-vitamin D 1 Tablet Oral Daily WM ceFAZolin 1 g Intravenous 3 times per day docusate sodium 100 mg Oral BID donepeziL 5 mg Oral Nightly DULoxetine 60 mg Oral Daily insulin aspart U-100 1-15 Units Subcutaneous QID WM insulin glargine 8 Units Subcutaneous BID (Insulin) magnesium hydroxide 30 mL Oral Daily miconazole Topical BID midodrine 7.5 mg Oral TID WM pantoprazole 40 mg Oral Daily polyethylene glycol 17 g Oral Daily senna 17.2 mg Oral BID sodium chloride 0.9% 10 mL Intravenous 3 times per day sodium chloride 0.9% Intravenous 2 times per day tamsulosin 0.4 mg Oral Daily tobramycin-dexamethasone Right Eye TID Labs & Studies: All pertinent labs & radiologic studies for the past 24 hours have been reviewed Telemetry: SR Assessment/Plan: Prothestic hip joint infection - s/p OR 02/22 - ortho S/O - per ID/primary Hypotension - on midodrine started 03/01/25 Acute PE - diagnosed 03/01 - now on eliquis ASHD - s/p remote stent + Sep 2023 ANN to LAD - code chest pain called 03/01, pain is actually LLQ of abd - trop 36-37, flat/not c/w ACS - ECG unchanged - GDMT: statin, ASA - no plans for ischemic eval at this time HFrEF VHD - 03/01/25 EF 20%, grade III DD, low flow, low gradient severe , mod MR, PASP 40 - per notes at [facility] Sep 2024, was considering valve surgery, per son- was told he is not a good candidate - No GDMT d/t hypotension- on midodrine now PAF s/p DCCV Jun 2024 - PIG1RM1-SYGc score is 5 with 6.7% annual stroke risk due to Chronic heart failure (1), Vascular Disease (1), DM (1), and Age, >75 (2). - was changed from low dose eliquis to hep gtt 03/01- now on PE dose eliquis - remains SR on tele Chronic LBBB DM - A1c 9.21 February 2025 NIGHAT intolerant to PAP rx Anemia - HGB 11.6-9.3 (baseline appears to be in 9s) Dementia - per primary DVT Prophylaxis: AC Further input from Dr. Chris Velasquez APRN, Heart and Vascular 03/03/2025 Disposition Perspective - Medically Ready for Discharge: Yes Timeframe for F/U: 1 week Cardiology Follow-up Provider Name: Dr. Bosch To be arranged: Patient to call office Medication Recommendation: as is Medication recommendation(s) as of date?: 03/03/25 Pt was seen in conjunction with a mid-level provider. Pt has no chest pain, not sob. Head atraumatic. Neck supple, no JVD CVS-s1,s2 rrr. RS- no rales or rhonchi. Abd soft Ext no edema. Alert and oriented. Plan: S/p hip surgery and infection ABx Per ID Hypotension Bp stable PE AC ASHD Med Rx. Med Rx, sees [facility] PAF SR I personally performed medical decision making in its entirety. Quinten Perez MD, [facility] * Sabine Aj OT - 03/02/2025 1:54 PM EDT 03/02/25 1354 OT Subjective Note Type Follow Up Treatment Attempt Patient Room/Unit 370 OT Subjective Comments #1 @ [facility]. Transferred to TCU for code chest pain; PE found. Heparin started 03/01 Therapy delay reason Unavailable due to tests/procedures * Aki Torre, PharmD - 03/02/2025 1:53 PM EDT Pharmacy Note - Vancomycin Vancomycin has been discontinued per ID team. Pharmacy will sign off. Aki Erazo, PharmD * Nick Elkins MD - 03/02/2025 1:27 PM EDT Images from the original note were not included. [facility] Infectious Diseases Progress Note Date of Admission: 02/16/2025 Primary Care Physician: No Pcp, Per Patient Antibiotics: Current Antibiotics - IV Cefepime - IV Vancomycin - IV Metronidazole Prior Antibiotics - IV Cefazolin Assessment # Right hip prosthetic joint infection Important to note he had a right total hip replacement on May 2022 at an outside hospital. Per review of medical records he had a staph auris infection and he was treated with 6 weeks of IV cefazolin and oral rifampin until August 2022. Unclear if he had oral suppressive therapy after completing this course. Was not able to find any evidence of this in the records. Patient has been complaining of uncomfortable sensation around his right hip. On 02/18 he had an right hip MRI which showed findings concerning for a right hip abscess. On 02/19/2025 had a hip aspirationwith 294 RBC 56,000 TNC (84% segmented cells). Culture grew MSSA. So on 02/22/2025 he underwent for right hip arthrotomy with extensive debridement head and liner exchange for infection. IntraOp cultures were obtained. # Episode of Rapid Response on 03/01/25: seems to be related to PE as below. Procal negative, not consistent with a new pneumonia. # New Diagnosed PE in LLL # Bilateral Pleural Effusions with adjacent compressive atelectasis: as mentioned does not seem to be due to pneumonia. 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 May need to consider suppressive dose after. - Avoided rifampin due to apixaban - Follow-up Synovasure from 02/19 - Remove PICC once IV ABX completed - Cardiology and IR consulted. Follow up on their recommendations - Monitor CBC, CMP, ESR and CRP - ID will continue to follow peripherally while admitted Subjective: We had already signed off on this patient on 02/27/2025. However we were called to reevaluate the patient since he had a rapid response episode on 03/01/2025 in which he was having left upper quadrant pain, systolic blood pressure was in the 80s. There was concern for possible sepsis. Antibiotics were broadened. Chest x- ray was done which showed increased pulmonary vascularity and possible infiltrat e or atelectasis in left lower lung. CTA pulm was done which found left lower lobe pulmonary emboliand bilateral pleural effusions. There was also atelectasis versus infection. Physical Exam General Appearance: Alert, cooperative, no distress Head: Normocephalic, without obvious abnormality, atraumatic Eyes: conjunctiva/corneas clear Nose: Nares normal, septum midline, mucosa normal, no drainage Mouth: mucosa moist Lungs: Good AE B/L, respirations unlabored Heart: Regular rate and rhythm, S1 and S2 normal Abdomen: Soft, non-tender, bowel sounds active Extremities: surgical incision to right hip with Prevena vac in place, no edema Skin: no rashes or lesions Neurologic: Grossly normal Line: +PIV Active LDAs PICC Line Duration PICC Single Lumen 02/26/25 Right Basilic 4 days PIV Line Duration Peripheral IV 03/02/25 0218 Left Upper arm <1 day Drain Duration External Urinary Catheter Male Purewick -- days Wound Duration Incision/Wound Closed Surgical Thigh Proximal;Right 8 days Incision/Wound MASD Gluteal cleft Bilateral;Mid extending to bilateral inner buttock <1 day Vitals Patient Vitals for the past 24 hrs: BP Temp Temp src Pulse Resp SpO2 Weight 03/02/25 1137 117/62 97.7 ??F (36.5 ??C) Oral 78 17 94 % -- 03/02/25 0747 (!) 89/63 98.4 ??F (36.9 ??C) Oral 80 17 97 % -- 03/02/25 0618 -- -- -- -- -- -- 285 lb 3.2 oz (129.4 kg) 03/02/25 0547 -- -- -- 73 -- -- -- 03/02/25 0504 96/50 97.6 ??F (36.4 ??C) Oral 80 16 97 % -- 03/02/25 0335 -- -- -- 79 -- -- -- 03/02/25 0129 -- -- -- 80 -- -- -- 03/01/25 2347 106/65 97 ??F (36.1 ??C) Oral 87 16 -- -- 03/01/25 2340 -- -- -- 85 -- -- -- 03/01/252057 99/65 97.9 ??F (36.6 ??C) Oral 79 16 100 % -- 03/01/25 1707 93/78 97.5 ??F (36.4 ??C) Oral 80 16 100 % -- 03/01/25 1542 93/60 -- -- -- -- -- -- Oxygenation Oxygen Therapy Flowsheet Row Most Recent Value Oxygen Therapy SpO2 94 % Pulse Oximeter Location Left hand Reason for titration Wean Patient Position/Status Resting Awake O2 Device Nasal cannula O2 Flow Rate (L/min) 2 lpm FiO2 (%) -- [RA] Mask Type Full mask Mask Size Medium Assistive Devices Flowsheet Row Most Recent Value Assistive Devices Assistive Devices Eyeglasses Rx DME At Home Flowsheet Row Most Recent Value DME Used at Home Walker, Rollator, Oxygen Weight Weight: 285 lb 3.2 oz (129.4 kg) Intake/Output past 24 hours Intake/Output Summary (Last 24 hours) at 03/02/2025 1327 Last data filed at 03/02/2025 1054 Gross per 24 hour Intake 300 ml Output 1600 ml Net -1300 ml Intake/Output throughout Admission Net IO Since Admission: 2,389.6 mL [03/02/25 1327] Allergies Allergies Allergen Reactions Tetanus Vaccines And Toxoid Swelling Pt also states blisters with swelling Current Outpatient Medications Medication Instructions apixaban (ELIQUIS) 2.5 mg, Oral, 2 TIMES DAILY atorvastatin (LIPITOR) 40 mg, DAILY calcium carbonate-vitamin D3 250 mg-3.125 mcg (125 unit) Oral Tablet 1 Tablet, DAILY ceFAZolin in dextrose (ANCEF) 2 gram/100 mL IV Piggyback 2 g, Intravenous, EVERY 8 HOURS SCHEDULED donepeziL (ARICEPT) 5 mg, NIGHTLY DULoxetine (CYMBALTA) 60 mg, DAILY fluticasone propionate (FLONASE) 50 mcg/actuation Nasl [place], Suspension 2 Sprays, 2 TIMES DAILY PRN fUROsemide (LASIX) 20 mg, DAILY metFORMIN (GLUCOPHAGE) 500 mg, 2 TIMES DAILY polyvinyl alcohol (LIQUIFILM TEARS) 1.4 % Opht Drops 1 Drop, PRN tamsulosin (FLOMAX) 0.8 mg, DAILY Current Facility-Administered Medications Medication Dose Route Frequency Provider Last Rate Last Admin acetaminophen (TYLENOL) tablet 650 mg 650 mg Oral Q4H PRN Berenice Dallas DO 650 mg at 03/01/25 0806 alteplase (ACTIVASE) injection 1 mg 1 mg Intercatheter PRN Katie Viera, EVS MANAGER aluminum & magnesium hydroxide-simethicone 200-200-20 mg/5 mL suspension 30 mL 30 mL Oral Q4H PRN Mason Jacome DO 30 mL at 03/01/25 0908 apixaban (ELIQUIS) tablet 10 mg 10 mg Oral BID Ida Henson MD 10 mg at 03/02/25 1301 Followed by [START ON 03/09/2025] apixaban (ELIQUIS) tablet 5 mg 5 mg Oral BID Ida Henson MD aspirin EC tablet 81 mg 81 mg Oral Daily Ricarda Velasquez APRN 81 mg at 03/02/25 1235 atorvastatin (LIPITOR) tablet 40 mg 40 mg Oral Daily Litzy Sepulveda APRN 40 mg at 03/02/25 0846 bisacodyL (DULCOLAX) EC tablet 10 mg 10 mg Oral BID Mason Jacome DO 10 mg at 03/01/252101 Or bisacodyL (DULCOLAX) suppository 10 mg 10 mg Rectal BID Mason Jacoem DO 10 mg at 02/24/252034 calcium carbonate-vitamin D 500 mg-5 mcg (200 unit) per tablet 1 Tablet 1 Tablet Oral Daily Litzy Sepulveda APRN 1 Tablet at 03/02/25 0846 ceFEPIme (MAXIPIME) 1 g/50 mL IVPB 1 g Intravenous 3 times per day Stacia Shrestha MD Stopped at 03/02/25 1301 dextrose 50 % solution 25 mL 25 mL Intravenous PRN Berenice Dallas, DO 25 mL at 03/02/25 1239 docusate sodium (COLACE) capsule 100 mg 100 mg Oral BID Mason Jacome DO 100 mg at 03/02/25 0846 donepeziL (ARICEPT) tablet 5 mg 5 mg Oral Nightly Litzy Sepulveda APRN 5 mg at 03/01/25 2345 DULoxetine (CYMBALTA) capsule 60 mg 60 mg Oral Daily Litzy Sepulveda APRN 60 mg at 03/02/25 0845 fluticasone propionate (FLONASE) 50 mcg/actuation nasal spray 2 Rising [place] 2 [place] Nasal BID PRN Litzy Sepulveda APRN glucagon (GLUCAGEN) injection 1 mg 1 mg Intramuscular PRN Berenice Dallas, DO And sterile water injection 1 mL 1 mL Injection PRN Berenice Dallas, DO insulin aspart U-100 (NovoLOG) injection 1-15 Units 1-15 Units Subcutaneous QID Berenice Dallas DO 2 Units at 02/28/25 2122 insulin glargine U-100 (LANTUS) injection 8 Units 8 Units Subcutaneous BID (Insulin) Ozzie Fernandez MD magnesium hydroxide (MILK OF MAGNESIA) 400 mg/5 mL suspension 30 mL 30 mL Oral Daily Mason Jacome DO 30 mL at 02/24/25 0826 melatonin tablet 5-10 mg 5-10 mg Oral Nightly PRN Taryn Camilo APRN 10 mg at 03/01/25 0254 metroNIDAZOLE (FLAGYL) IVPB 500 mg 500 mg Intravenous 3 times per day Stacia Shrestha MD Stopped at 03/02/25 1337 miconazole (MICATIN) 2 % powder Topical BID Ozzie Fernandez MD Given at 03/02/25 0851 midodrine (PROAMATINE) tablet 7.5 mg 7.5 mg Oral TID Ozzie Fernandez MD 7.5 mg at 03/02/25 1235 mupirocin (BACTROBAN) 2 % ointment Nasal BID Katie Viera APRN Given at 03/02/25 0846 oxyCODONE (ROXICODONE) immediate release tablet 5-10 mg 5-10 mg Oral Q3H PRN Mason Jacome DO 10mg at 03/02/25 0655 pantoprazole (PROTONIX) tablet 40 mg 40 mg Oral Daily Ozzie Fernandez MD 40 mg at 03/02/25 0848 polyethylene glycol (GLYCOLAX, MIRALAX) packet 17 g 17 g Oral Daily Sameer Ortega MD 17 g at 03/02/25 0844 polyvinyl alcohol (LIQUIFILM TEARS) 1.4 % ophthalmic solution 1 Drop 1 Drop Both Eyes PRN Litzy Sepulveda APRN 1 Drop at 02/23/25 2122 senna (SENOKOT) tablet 17.2 mg 17.2 mg Oral BID Sameer Ortega MD 17.2 mg at 03/02/25 0846 sodium chloride 0.9% IV line flush 20-50 mL 20-50 mL Intravenous PRN Katie Viera APRN 150 mL/hr at 03/02/25 0504 20 mL at 03/02/25 0504 sodium chloride 0.9% IV line flush 20-50 mL 20-50 mL Intravenous PRN Sameer Ortega MD Stopped at 02/25/25 1453 sodium chloride 0.9% syringe 10 mL 10 mL Intravenous 3 times per day Katie Viera APRN 10 mLat 03/02/25 1235 sodium chloride 0.9% syringe Intravenous 2 times per day David Mar MD 10 mL at 03/02/25 0848 sodium chloride 0.9% syringe Intravenous PRN David Mar MD sodium chloride 0.9% syringe Intravenous PRN Katie Viera APRN tamsulosin (FLOMAX) capsule 0.4 mg 0.4 mg Oral Daily Ozzie Fernandez MD 0.4 mg at 03/02/25 0846 tobramycin-dexamethasone (TOBRADEX) ophthalmic ointment Right Eye TID Ozzie Fernandez MD Given at 03/02/25 1239 vancomycin in sodium chloride 0.9% premix IVPB 1,750 mg 1,750 mg Intravenous Q18H Stacia Shrestha MD Stopped at 03/02/25 0746 Immunization History Administered Date(s) Administered Influenza Vaccine Trivalent Adjuvanted PF 08/06/2020 Moderna SARS-CoV-2 Vaccine 12+ Yrs (Light blue border) 11/18/2020, 06/09/2021 Moderna SARS-CoV-2 Vaccine 12+ Yrs Spikevax 08/24/2023 Quadrivalent Influenza High Dose 06/24/2021 Labs: Lab Results Component Value Date WBC 9.5 03/02/2025 HGB 9.3 (L) 03/02/2025 HCT 29.0 (L) 03/02/2025 MCV 97.3 03/02/2025 PLT 280 03/02/2025 Lab Results Component Value Date GLU 78 03/02/2025 NA 134 (L) 03/02/2025 K 4.2 03/02/2025 CO2 23 03/02/2025 CL 101 03/02/2025 BUN 15 03/02/2025 CREATININE 0.86 03/02/2025 Results for orders placed or performed during the hospital encounter of 02/16/25 (from the past 2 weeks) WOUND CULTURE (STAIN INCLUDED) Collection Time: 02/19/25 12:43 PM Specimen: Hip, Right; Aspirate Result Value Ref Range Culture Positive Growth (A) Culture Moderate growth of Staphylococcus aureus PBP2a test Negative Stain Moderate WBCs Stain No organisms seen Susceptibility Staphylococcus aureus - SUSCEPTIBILITY RESULT* Ampicillin Cefazolin Ceftaroline Ceftriaxone Chloramphenicol <=8 Susceptible ug/mL Ciprofloxacin >2 Resistant ug/mL Clindamycin <=0.25 Susceptible ug/mL Daptomycin Erythromycin <=0.25 Susceptible ug/mL Gentamicin 4 Susceptible ug/mL Gentamicin synergy Levofloxacin >4 Resistant ug/mL Linezolid Moxifloxacin 2 Resistant ug/mL Nitrofurantoin Oxacillin <=0.25 Susceptible ug/mL Penicillin Rifampin <=1 Susceptible ug/mL Streptomycin synergy Synercid Tetracycline <=2 Susceptible ug/mL Tigecycline Trimethoprim/Sulfamethoxazole <=0.5/9.5 Susceptible ug/mL Vancomycin 1 Susceptible ug/mL * Rifampin and Gentamicin should not be used alone for antimicrobial therapy. For methicillin resistant staphylococci, ciprofloxacin should also not be used alone. ANAEROBIC CULTURE (NO STAIN) Collection Time: 02/19/25 12:43 PM Specimen: Hip, Right; Aspirate Result Value Ref Range Culture No anaerobic growth at 5 days. FUNGUS STAIN (STAIN ONLY) Collection Time: 02/19/25 12:43 PM Specimen: Hip, Right; Aspirate Result Value Ref Range Fungal Stain No yeast or fungal elements seen. No yeast or fungal elements seen. ACID FAST BACILLI CULTURE AND SMEAR (STAIN INCLUDED) Collection Time: 02/19/25 12:43 PM Specimen: Hip, Right; Aspirate Result Value Ref Range AFB Stain SEE NOTE AFB Culture SEE NOTE ANAEROBIC CULTURE (NO STAIN) Collection Time: 02/22/25 9:03 AM Specimen: Hip, Right; Tissue Result Value Ref Range Culture No anaerobic growth at 5 days. WOUND CULTURE (STAIN INCLUDED) Collection Time: 02/22/25 9:03 AM Specimen: Hip, Right; Tissue Result Value Ref Range Culture No growth at 94 hours. Stain Moderate RBCs Stain Rare WBCs Stain No organisms seen FUNGUS CULTURE (NO STAIN) Collection Time: 02/22/25 9:03 AM Specimen: Hip, Right; Tissue Result Value Ref Range Culture No growth of fungus at 5 days. ANAEROBIC CULTURE (NO STAIN) Collection Time: 02/22/25 9:05 AM Specimen: Hip, Right; Tissue Result Value Ref Range Culture No anaerobic growth at 5 days. WOUND CULTURE (STAIN INCLUDED) Collection Time: 02/22/25 9:05 AM Specimen: Hip, Right; Tissue Result Value Ref Range Culture No growth at 94 hours. Stain Few RBCs Stain No WBCs seen Stain No organisms seen FUNGUS CULTURE (NO STAIN) Collection Time: 02/22/25 9:05 AM Specimen: Hip, Right; Tissue Result Value Ref Range Culture No growth of fungus at 5 days. ANAEROBIC CULTURE (NO STAIN) Collection Time: 02/22/25 9:05 AM Specimen: Hip, Right; Tissue Result Value Ref Range Culture No anaerobic growth at 5 days. WOUND CULTURE (STAIN INCLUDED) Collection Time: 02/22/25 9:05 AM Specimen: Hip, Right; Tissue Result Value Ref Range Culture No growth at 94 hours. Stain Few RBCs Stain No WBCs seen Stain No organisms seen FUNGUS CULTURE (NO STAIN) Collection Time: 02/22/25 9:05 AM Specimen: Hip, Right; Tissue Result Value Ref Range Culture No growth of fungus at 5 days. BLOOD CULTURE (NO STAIN) Collection Time: 02/23/25 2:55 PM Specimen: Blood, Venous Result Value Ref Range Culture Result No Growth at 120 hours. BLOOD CULTURE (NO STAIN) Collection Time: 02/23/25 4:06 PM Specimen: Blood, Venous Result Value Ref Range Culture Result No Growth at 120 hours. BLOOD CULTURE (NO STAIN) Collection Time: 03/01/25 9:59 AM Specimen: Blood, Venous Result Value Ref Range Culture Result No Growth at 24 hours. BLOOD CULTURE (NO STAIN) Collection Time: 03/01/25 10:09 AM Specimen: Blood, Venous Result Value Ref Range Culture Result No Growth at 24 hours. STAPHYLOCOCCUS AUREUS SCREEN Collection Time: 03/01/25 10:29 AM Specimen: Nares; Swab Result Value Ref Range Staph aureus PCR Detected (A) Not Detected MRSA PCR Not Detected Not Detected Lab Results Component Value Date SEDRATE 50 (H) 02/23/2025 Lab Results Component Value Date CRP 44.49 (H) 03/01/2025 EC ECHOCARDIOGRAM LIMITED W CONTRAST Result Date: 03/01/2025 Conclusions * Left ventricular chamber dimension is enlarged. * Left ventricular function is severely reduced with an estimated ejection fraction of 20%. * Left ventricular segmental wall motion is abnormal with paradoxical septal motion and regional variation. * The left ventricular diastolic function is consistent with grade III diastolic dysfunction / restrictive physiology (elevated left atrial pressure). * There is low flow, low gradient severe aortic valve stenosis present with a stroke volume index of 19.50 ml/m2, a peak aortic valve velocity of 307 cm/s, a mean gradient of 27 mmHg, and an aortic valve area of 0.66 cm2. Dimensionless Index 0.17. * There is moderate mitral valve regurgitation. * Right ventricular systolic function is normal. * Estimated pulmonary artery systolic pressure is [address] ANGIOGRAM PULMONARY W CONTRAST Result Date: 03/01/2025 CT PULMONARY ANGIOGRAM, 03/01/2025 4:36 PM CLINICAL HISTORY: -Chest PAin r/o PE. COMPARISON: None. TECHNIQUE: PE protocol CT angiogram of the chest using Isovue 370 IV contrast as recorded in [employer]. 2-D multiplanar reconstructions and 3-D MIP reconstructions reviewed. Dose 1 : CT DLP Total : 2203.78 mGycm DLP Spiral Max : 1641.65 mGycm Maximum CTDI Vol : 27.91 mGy FINDINGS: Adequate visualization of the pulmonary arteries to the segmental/subsegmental level. Filling defects within segmental and subsegmental pulmonary arteries left lower lobe as well as the distal left lobar pulmonary artery. Noradiologic findings to suggest heart strain. No aortic arch aneurysm. Moderate left and small rightpleural effusions. Mildly enlarged mediastinal and right hilar lymph nodes measuring up to 1.1 cm in short axis. No pneumothorax. Mild opacities posterior lower lobes and posterior right upper lobe. Coronary artery calcification: Moderate. Positive for pulmonary emboli in the left lower lobe. Bilateral pleural effusions. Atelectasis versus infection as above. Mild adenopathy which may be reactive. Direct communication to care team using [employer]. Notification included: OZZIE FERNANDEZ Approximate date and time: 03/01/2025 6:07 PMNote: Radiology results need to be interpreted within a comprehensive clinical context. If you havequestions about the radiology report, please contact the office of the ordering clinician. CT ABDOMEN PELVIS W CONTRAST Result Date: 03/01/2025 CT ABDOMEN AND PELVIS WITH CONTRAST, 03/01/2025 4:37 PM CLINICAL HISTORY: - abdominal Pain. COMPARISON: None. PROCEDURE COMMENTS: Multi-detector CT of the abdomen and pelvis with multiplanar reformatting. Isovue 370 IV contrast given as recorded in [employer], along with radiodense GI contrast. Dose 1 : CTDLP Total : 2203.78 mGycm DLP Spiral Max : 1641.65 mGycm Maximum CTDI Vol : 27.91 mGy FINDINGS: Lower chest: Bilateral pleural effusions and adjacent compressive atelectasis Liver: Normal. Gallbladder: Normal. Biliary tract: Normal for age. Pancreas: Normal. Spleen: Normal. Adrenals: Normal. Kidneys: Bilateral renal cysts. Atrophic right renal upper pole moiety Gastrointestinal tract: No acute small bowel findings.Grossly unremarkable stomach.Partially stool filled colon may reflect constipation. No CT findings to suggest acute appendicitis. Peritoneum: No pneumoperitoneum or pathologic free fluid. Mesentery and retroperitoneum: No adenopathy or aneurysm. Pelvic organs: No acute findings as visualized. Abdominal wall and diaphragm: Intact. Musculoskeletal: Multilevel lumbar postsurgical sequelae. Right hip arthroplasty with metal streak artifact limiting evaluation of adjacent structures. Right collection lateral to the right hip. Heterotopic ossification with possible fracture involving posterior aspect of the right greater trochanter. Moderate to severe left hip degenerative jointdisease. Bilateral sacroiliac degenerative joint disease. 1. Possible constipation. 2. Bilateral pleural effusions and adjacent compressive atelectasis. 3. Right hip arthroplasty with heterotopic ossification and possible fracture involving the posterior aspect of the right greater trochanter. - Note: Radiology results need to be interpreted within a compr ehensive clinical context. If you have questions about the radiology report, please contact the office of the ordering clinician. Pertinent laboratory and imaging results personally reviewed. Patient seen and examined. Nick Mandujano MD * Caroline John [facility] - 03/02/2025 12:45 PM EDT Pharmacy Consult: Heparin Sign Off Heparin discontinued. Therapy to continue with treatment dose of apixaban. Pharmacy will sign off. Please let us know if we can be of additional assistance. Thanks! Caroline John PharmD, BCPS * Ana Horton [facility] - 03/02/2025 11:37 AM EDT Pharmacy Consult- Vancomycin S: Steve King is a(n) 89 y.o. 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 Allergies: Tetanus vaccines and toxoid Day 2 of pharmacy managed vancomycin therapy. Other antimicrobials include: Cefepime (03/01-present) Metronidazole (03/01-present) ---- Cefazolin (02/23-03/01) Zosyn (02/19-02/23) Vanc (02/19-02/23) O: Most Recent Labs: Temp Min: 97 ??F (36.1 ??C) Max: 98.4 ??F (36.9 ??C) Recent Labs 02/27/25 0902 03/01/25 0931 03/02/25 0618 WBC 7.5 7.7 9.5 BUN 22 15 CREATININE 0.90 0.84 0.86 Estimated Creatinine Clearance: 74.3 mL/min (by C-G formula based on SCr of 0.86 mg/dL). Recent Labs 02/26/25 1630 03/01/25 0931 PROCLCTNIN 0.08 0.05 Recent Labs 02/26/25 1630 03/01/25 0931 LACTA 1.5 1.4 Recent Labs 02/26/25 1630 02/28/25 0516 03/01/25 0931 CRP 71.36* 42.59* 44.49* I/O last 3 completed shifts: In: 83 [P.O.:83] Out: 1600 [Urine:1600] I/O this shift: In: 300 [P.O.:300] Out: - Height: 6' 4 (193 cm) Weight: 285 lb 3.2 oz (129.4 kg) Culture & Sensitivities: Results for orders placed or performed during the hospital encounter of 02/16/25 (from the past 2 weeks) WOUND CULTURE (STAIN INCLUDED) Collection Time: 02/19/25 12:43 PM Specimen: Hip, Right; Aspirate Result Value Ref Range Culture Positive Growth (A) Culture Moderate growth of Staphylococcus aureus PBP2a test Negative Stain Moderate WBCs Stain No organisms seen Susceptibility Staphylococcus aureus - SUSCEPTIBILITY RESULT* Ampicillin Cefazolin Ceftaroline Ceftriaxone Chloramphenicol <=8 Susceptible ug/mL Ciprofloxacin >2 Resistant ug/mL Clindamycin <=0.25 Susceptible ug/mL Daptomycin Erythromycin <=0.25 Susceptible ug/mL Gentamicin 4 Susceptible ug/mL Gentamicin synergy Levofloxacin >4 Resistant ug/mL Linezolid Moxifloxacin 2 Resistant ug/mL Nitrofurantoin Oxacillin <=0.25 Susceptible ug/mL Penicillin Rifampin <=1 Susceptible ug/mL Streptomycin synergy Synercid Tetracycline <=2 Susceptible ug/mL Tigecycline Trimethoprim/Sulfamethoxazole <=0.5/9.5 Susceptible ug/mL Vancomycin 1 Susceptible ug/mL * Rifampin and Gentamicin should not be used alone for antimicrobial therapy. For methicillin resistant staphylococci, ciprofloxacin should also not be used alone. ANAEROBIC CULTURE (NO STAIN) Collection Time: 02/19/25 12:43 PM Specimen: Hip, Right; Aspirate Result Value Ref Range Culture No anaerobic growth at 5 days. FUNGUS STAIN (STAIN ONLY) Collection Time: 02/19/25 12:43 PM Specimen: Hip, Right; Aspirate Result Value Ref Range Fungal Stain No yeast or fungal elements seen. No yeast or fungal elements seen. ACID FAST BACILLI CULTURE AND SMEAR (STAIN INCLUDED) Collection Time: 02/19/25 12:43 PM Specimen: Hip, Right; Aspirate Result Value Ref Range AFB Stain SEE NOTE AFB Culture SEE NOTE ANAEROBIC CULTURE (NO STAIN) Collection Time: 02/22/25 9:03 AM Specimen: Hip, Right; Tissue Result Value Ref Range Culture No anaerobic growth at 5 days. WOUND CULTURE (STAIN INCLUDED) Collection Time: 02/22/25 9:03 AM Specimen: Hip, Right; Tissue Result Value Ref Range Culture No growth at 94 hours. Stain Moderate RBCs Stain Rare WBCs Stain No organisms seen FUNGUS CULTURE (NO STAIN) Collection Time: 02/22/25 9:03 AM Specimen: Hip, Right; Tissue Result Value Ref Range Culture No growth of fungus at 5 days. ANAEROBIC CULTURE (NO STAIN) Collection Time: 02/22/25 9:05 AM Specimen: Hip, Right; Tissue Result Value Ref Range Culture No anaerobic growth at 5 days. WOUND CULTURE (STAIN INCLUDED) Collection Time: 02/22/25 9:05 AM Specimen: Hip, Right; Tissue Result Value Ref Range Culture No growth at 94 hours. Stain Few RBCs Stain No WBCs seen Stain No organisms seen FUNGUS CULTURE (NO STAIN) Collection Time: 02/22/25 9:05 AM Specimen: Hip, Right; Tissue Result Value Ref Range Culture No growth of fungus at 5 days. ANAEROBIC CULTURE (NO STAIN) Collection Time: 02/22/25 9:05 AM Specimen: Hip, Right; Tissue Result Value Ref Range Culture No anaerobic growth at 5 days. WOUND CULTURE (STAIN INCLUDED) Collection Time: 02/22/25 9:05 AM Specimen: Hip, Right; Tissue Result Value Ref Range Culture No growth at 94 hours. Stain Few RBCs Stain No WBCs seen Stain No organisms seen FUNGUS CULTURE (NO STAIN) Collection Time: 02/22/25 9:05 AM Specimen: Hip, Right; Tissue Result Value Ref Range Culture No growth of fungus at 5 days. BLOOD CULTURE (NO STAIN) Collection Time: 02/23/25 2:55 PM Specimen: Blood, Venous Result Value Ref Range Culture Result No Growth at 120 hours. BLOOD CULTURE (NO STAIN) Collection Time: 02/23/25 4:06 PM Specimen: Blood, Venous Result Value Ref Range Culture Result No Growth at 120 hours. BLOOD CULTURE (NO STAIN) Collection Time: 03/01/25 9:59 AM Specimen: Blood, Venous Result Value Ref Range Culture Result Blood culture received for processing in the laboratory. Positives will be reported immediately. BLOOD CULTURE (NO STAIN) Collection Time: 03/01/25 10:09 AM Specimen: Blood, Venous Result Value Ref Range Culture Result Blood culture received for processing in the laboratory. Positives will be reported immediately. STAPHYLOCOCCUS AUREUS SCREEN Collection Time: 03/01/25 10:29 AM Specimen: Nares; Swab Result Value Ref Range Staph aureus PCR Detected (A) Not Detected MRSA PCR Not Detected Not Detected Patient's initial estimated kinetic parameters based on AUC kinetics: - CrCl = 80 mL/min - Based on AdjBw as BMI >30 - Ke = 0.0708 hr^-1 - Half-life = 9.79 h A/P: Physician orders and progress notes reviewed. Renal function is stable. Vancomycin therapy initiated with a 2000 mg (~18 mg/kg) loading dose, followed by a maintenance dose of 1750 mg (~ 15 mg/kg) every 18 hours. Dosing is based off of previous history from 02/21/2025 where the patient was SUBtherapeutic ([id number] mg*hr/L) on 1,500 mg q18h, and therapy was modified to 1,750 mg q18h. This dosing regimen is estimated to result in a predicted AUCss of 412 mg??hr/L; Goal AUC is 400-600. Will evaluate levels for AUC dosing on 03/03 between the 3rd and 4th dose. Pharmacy will continue to follow patient for changes in renal function, efficacy, and signs of toxicity. Thanks! Ana Horton, ErlinD * Blanca Low RN - 03/02/2025 10:45 AM EDT 03/02/25 1042 Ongoing Discharge Planning Evaluation Actual Discharge Plan 03-02-2025 Discharge update: CC sent updated clinicals to Fabricio at [place] via [employer]. CC advised Fabricio that patient will likely be ready for discharge on 03-05-2025. CC continues to follow. * Shannon Coulter RN - 03/02/2025 9:30 AM EDT Images from the original note were not included. WOUND CARE: Consulted for: alma delia, primary RN requested I assess BLE Please see LDA(s) for complete documentation and assessment. Pt admitted for: right hip pain on 02/16/2025 Hx includes: none on file Upon assessment, pt with the following: Gluteal cleft extending to bilateral inner buttock (Irritant contact dermatitis d/t incontinence)- initially area presented with extensive wet, maceration and peeling skin. After thorough exfoliationarea presents as red, pink, moist, blanchable and fragile. Recommend the use of zinc ointment (orange top) as a moisture barrier to allow for autolysis. Apply Q12H and PRN and leave open to air. Bilateral lower legs- intact, areas of pink scarring noted. Abduction pillow in place. Encourage continuation of preventative interventions such as frequent repositioning/ scheduled turns, as well as offloading bilateral heels. Patient is on a low air loss sleep surface to manage the microclimate of the skin (ensure function is on). Orders updated in [facility]. Primary nurse, Will updated. Will continue to follow along and offer support. Thanks! * Rigoberto Restrepo PTA - 03/02/2025 8:23 AM EDT 03/02/25 0823 PT Subjective Note Type Follow Up Treatment Attempt Patient Room/Unit 435 PT Subjective Comments #1 Transferred to TCU for code chest pain; PE found. Heparin started 03/01. Hypotensive this AM; awaiting meds/midodrine and will reassess this date if able. Therapy delay reason Medically not stable * Ozzie Fernandez MD - 03/02/2025 7:52 AM EDT Images from the original note were not included. [facility] Hospital Medicine Service Progress Note: [facility] Hospital Medicine Service Steve King LOS: 10 days Problems List Active Hospital Problems Diagnosis Right hip pain Hypotension Other chest pain Abdominal pain Elevated d-dimer MSSA (methicillin susceptible Staphylococcus aureus) infection Conjunctival hyperemia of right eye NIGHAT (obstructive sleep apnea) Dyslipidemia Major neurocognitive disorder ([facility]) Mood disorder Type 2 diabetes mellitus with diabetic polyneuropathy, without long-term current use of insulin ([facility]) Environmental allergies Hyperkalemia Rash Dysphagia 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) Paroxysmal A-fib (HCC) BPH (benign prostatic hyperplasia) Resolved Hospital Problems No resolved problems to display. Assessment and Plan Reason for Adm: Steve King is a(n)89 y.o. male admitted for work-up and treatment for Right hip pain [M25.551]. Handoff Completed:Yes/No: No Disposition Perspective - Medically ready for discharge: No Anticipated ready for discharge timeframe?: 2 to 3 days pending evaluation considering the patient develop pulmonary embolism Estimated Date of Discharge: 03/05/2025 Admitted on 02/16/2025: with: Right hip pain. Found to have right hip effusion. History of MEKA. Orthoand IR consulted for aspiration. MRI showing possible abscess. IR aspiration cultures positive for Staph aureus MSSA. Patient underwent washout yesterday. Currently working with PT. Antibiotics managed per ID.02/26 IR placed PICC line ID recommended IV cefazolin x 6 weeks from 02/22 - 04/05/25., Avoided rifampin due to apixaban, follow ID, patient continued to be hypotensive with drop mainly after given Lasix, started midodrine increased. Cardiology opinion requested discussed with infectious disease considering house physician suspected sepsis and adjusted IV antibiotic and his chest x-ray showed possible pneumonia to reevaluate pending culture and workup, CT c/w PE started on Heparin, dc Eliquis. pulm, cardiology following, IR consulted for possible thrombosis, patient was made DNR per son's his next of kin making decision for it. pulmonary emboli in the left lower lobe. 03/01 Code chest/abdominal pain pain called Troponin elevated 36-37 not trending D-dimer elevated will obtain CT angiogram rule in PE, venous Doppler US inprocess BNP elevated Patient on Eliquis Chest x-ray showed left lower lobe infiltrate and worsening vascularity will follow At 6.42 , CT c/w PE and Bilateral pleural effusions and adjacent compressive atelectasis.Positive for pulmonary emboli in the left lower lobe. Bilateral pleural effusions. Atelectasis versus infection as above. Mild adenopathy which may be reactive. Echo did not show restain of RV , But showed Evated Pulm BP -started on Heparin dc Eliquis 2 d ordered, Venous US of LE r/o DVT in process D/w pulm Dr Henson, debating if need Throbolysis, considering Hypotensive side and elvated Pulm HTN, will consult IR for evaluation pation in modrate to high risk Hypotensive 74/56 >>>96/50 Check CRP and procalcitonin lactic acid, no sign of sepsis Holding his Lasix for blood pressure less than 100, will change to as needed Slightly dehydrated BUN slightly elevated 24>>>22>>15 Blood loss anemia Hg on Adm 12.7>>>>9.9>> hemoglobin 9.1 ---9.8possible delusional completing IV fluid in 3 hours Stool occult blood no specimen sent, will monitor H&H, \no sign of bleed possible delusional Complete IV fluid normal saline will monitor respiratory status Add midodrine, the patient was chronic hypotension, in addition to pain current medication, Hoding Lasix, monitor, respiratory status and blood pressure, Will add hold parameter for Flomax is a dose to 0.4 Follows cardiology Right hip prosthetic joint infection Presented with right hip pain Orthopedic consulted ID consulted infected MEKA? PRN pain control; IR consulted for aspration MRI R hip showed findings concerning for a right hip abscess Was Started on antibiotics IV vancomycin and Zosyn. Ortho recommend outpatient follow-up post aspiration 02/19 patient underwent IR US guided aspiration; Culture grew MSSA. MRSA screening negative 02/23 blood culture no growth 48HR, PICC per ID discussed with ID on 02/22/2025 he underwent for right hip arthrotomy with extensive debridement head and liner exchange for infection. IR placed PICC line ID recommended IV cefazolin x 6 weeks from 02/22 - 04/05/25., Avoided rifampin due to apixaban, follow ID+ 03/01 patient became again hypotensive IVABx change by House doc with suspicion of sepsis workup in process culture was repeated switched to vancomycin and cefepime and Flagyl Discussed with ID , low suspicion of sepsis, will follow culture will de- escalate antibiotic per IDrecommendation most likely is a presentation due to the pulmonary embolism, follow culture 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) [facility] lasix will hold patient hypertensive Will obtain 2D echo to evaluate X-ray showed vascular decongestion low suspicion of pulmonary edema patient recommended right side no rales Patient became hypotensive after the Lasix-tolerance New PE on CTA of the chest, reporte in the evening 2 d Echo Ef 20 with seer ASand diastolic Dysfunction, Elvated Puln BP no restrain repoorted Cardiology opinion is appreciated Paroxysmal A-fib (HCC) HR 69 Rate controlled [employer] [employer] meds Eliquis transition on heparin after developed PE yesterday Hemoglobin 9.9>>9.3 will monitor NIGHAT (obstructive sleep apnea) CPAP at night RT Dyslipidemia [facility] Lipitor Major neurocognitive disorder (HCC) Seems at baseline 02/23 AAO, ?dementia; ?able to joint care of self? [facility] [employer] Donepazil Mood disorder [facility] Cymbalta Type 2 diabetes mellitus Uncontrolled BS 127>>>165--180 within the target BG in goal 140-180 and target continue Metformin on hold after the dye for 48 hours Lantus increased to 8 twice daily SSI, . Monitor blood sugar for hypoglycemia Environmental allergies Continue Flonase Hyperkalemia K 3.9--4.2 Resolved Dysphagia Speech eval, recs reviewed BPH (benign prostatic hyperplasia) [employer] [employer] flomax decreased from 0.8-0.4 add hold parameter Conjunctival hyperemia of right eye Patient had scratched his right eye Started ophthalmic ointment 02/27 added TobraDex for 5 days applied to the right eye considering the photophobia Advised to use eye patch complaining of photophobia, slight improvement Palliative care, discussed the CODE STATUS with the patient and his son who is the POA. I did explain to them that patient is critically ill with high morbidity and mortality ., They agreed to changehis CODE STATUS to DO NOT RESUSCITATE status, keep him DNI avoid intubation, with aggressive medical management. CODE STATUS changed to DNR on 03/02 GI Prophylaxis: proton pump inhibitor per orders VTE Prophylaxis: Qualifying Pharmacologic Prophylaxis heparin 25,000 units in 250 mL 0.45% NaCl CONTINUOUS apixaban (ELIQUIS) 5 mg Oral Tablet 2 TIMES DAILY -Disposition: Keep in TCU and less plan for thrombolysis repeated transferred to the unit, Subjective: . The patient feels much better no chest pain. No shortness of breath. Pain is controlled. Denied fever or chills. His son in the room, was updated, discussed the CODE STATUS with the patient and hisson who is the POA. I did explain to them that patient is critically ill with high morbidity and mortality ., They agreed to change his CODE STATUS to DO NOT RESUSCITATE status, keep him DNI avoid intubation, with aggressive medical management. Discussed with staff--bedside rounds with RN, care conference with charge nurse, care coordination/social service and/or pharmacist. ROS: As previously noted. Otherwise no changes except as stated above. Medications reviewed: atorvastatin 40 mg Oral Daily bisacodyL 10 mg Oral BID Or bisacodyL 10 mg Rectal BID calcium carbonate-vitamin D 1 Tablet Oral Daily WM ceFEPIme (MAXIPIME) IVPB 1 g Intravenous 3 times per day docusate sodium 100 mg Oral BID donepeziL 5 mg Oral Nightly DULoxetine 60 mg Oral Daily insulin aspart U-100 1-15 Units Subcutaneous QID WM insulin glargine 8 Units Subcutaneous BID (Insulin) magnesium hydroxide 30 mL Oral Daily metroNIDAZOLE 500 mg Intravenous 3 times per day miconazole Topical BID midodrine 7.5 mg Oral TID WM mupirocin Nasal BID pantoprazole 40 mg Oral Daily polyethylene glycol 17 g Oral Daily senna 17.2 mg Oral BID sodium chloride 0.9% 10 mL Intravenous 3 times per day sodium chloride 0.9% Intravenous 2 times per day tamsulosin 0.4 mg Oral Daily tobramycin-dexamethasone Right Eye TID vancomycin (VANCOCIN) IVPB (Orderable) 1,750 mg Intravenous Q18H heparin (porcine) acetaminophen, alteplase, aluminum & magnesium hydroxide-simethicone, dextrose, fluticasone propionate, glucagon AND sterile water, melatonin, oxyCODONE, polyvinyl alcohol, sodium chloride 0.9%, sodium chloride 0.9%, sodium chloride 0.9%, sodium chloride 0.9% Objective: Vitals: 03/02/25 0335 03/02/25 0504 03/02/25 0547 03/02/25 0618 BP: 96/50 BP Location: Right arm Patient Position: Semi Fowlers Pulse: 79 80 73 Resp: 16 Temp: 97.6 ??F (36.4 ??C) TempSrc: Oral SpO2: 97% Weight: 285 lb 3.2 oz (129.4 kg) Height: Weight: 285 lb 3.2 oz (129.4 kg) Intake/Output Summary (Last 24 hours) at 03/02/2025 0752 Last data filed at 03/02/2025 0357 Gross per 24 hour Intake 83 ml Output 1600 ml Net -1517 ml Physical Exam: Appropriate PPE was donned during this visit right conjunctiva no more congestion no discharge Constitutional: Alert and oriented to person, place, and time. No distress. Obese Cardiovascular: Normal rate and regular rhythm. Exam reveals no friction rub. No murmur heard. Pulmonary/Chest: Effort normal and breath sounds normal. No respiratory distress. There are no wheezes. Abdominal: Soft. Bowel sounds are normal. No distension. There is no tenderness. There is no rebound and no guarding. Musculoskeletal: + edema trace more on the right. PICC line in place right upper extremity Neurological: Grossly weak Skin: Skin is warm and dry. No erythema. Data reviewed: I reviewed all labs, imaging studies and current inpatient medications as of this date Labs: Laboratory data and diagnostic testing reviewed. Recent Labs 02/23/25 1455 02/23/25 1606 02/27/25 0902 02/27/25 1721 02/28/25 1700 03/01/25 0931 03/01/25 1945 03/02/25 0600 03/02/25 0618 WBC -- < > 7.5 -- -- 7.7 -- -- 9.5 HGB -- < > 9.9* < > 9.7* 11.6* -- -- 9.3* HCT -- < > 30.3* < > 30.5* 35.5* -- -- 29.0* MCV -- < > 95.6 -- -- 95.9 -- -- 97.3 PLT -- < > 266 -- -- 252 -- -- 280 NA -- < > 137 -- -- 136 -- -- 134* K -- < > 3.9 -- -- 4.2 -- -- 4.2 CL -- < > 100 -- -- 102 -- -- 101 CO2 -- < > 26 -- -- 23 -- -- 23 BUN -- < > 22 -- -- 15 -- -- 15 MG -- -- -- -- -- 2.0 -- -- -- PROT 5.8* -- -- -- -- 5.8* -- -- -- ALT 14 -- -- -- -- <5 -- -- -- AST 14 -- -- -- -- 15 -- -- -- ALKPHOS 99 -- -- -- -- 99 -- -- -- LABBILI <0.2* -- -- -- -- 0.3 -- -- -- BILIDIR <0.2 -- -- -- -- <0.2 -- -- -- INR -- -- -- -- -- 1.33* -- -- -- PTT -- -- -- -- -- 41.4* 38.8* 48.1* -- < > = values in this interval not displayed. EC ECHOCARDIOGRAM LIMITED W CONTRAST Result Date: 03/01/2025 Conclusions * Left ventricular chamber dimension is enlarged. * Left ventricular function is severely reduced with an estimated ejection fraction of 20%. * Left ventricular segmental wall motion is abnormal with paradoxical septal motion and regional variation. * The left ventricular diastolic function is consistent with grade III diastolic dysfunction / restrictive physiology (elevated left atrial pressure). * There is low flow, low gradient severe aortic valve stenosis present with a stroke volume index of 19.50 ml/m2, a peak aortic valve velocity of 307 cm/s, a mean gradient of 27 mmHg, and an aortic valve area of 0.66 cm2. Dimensionless Index 0.17. * There is moderate mitral valve regurgitation. * Right ventricular systolic function is normal. * Estimated pulmonary artery systolic pressure is [address] ANGIOGRAM PULMONARY W CONTRAST Result Date: 03/01/2025 CT PULMONARY ANGIOGRAM, 03/01/2025 4:36 PM CLINICAL HISTORY: -Chest PAin r/o PE. COMPARISON: None. TECHNIQUE: PE protocol CT angiogram of the chest using Isovue 370 IV contrast as recorded in [employer] [facility]. 2-D multiplanar reconstructions and 3-D MIP reconstructions reviewed. Dose 1 : CT DLP Total : 2203.78 mGycm DLP Spiral Max : 1641.65 mGycm Maximum CTDI Vol : 27.91 mGy FINDINGS: Adequate visualization of the pulmonary arteries to the segmental/subsegmental level. Filling defects within segmental and subsegmental pulmonary arteries left lower lobe as well as the distal left lobar pulmonary artery. Noradiologic findings to suggest heart strain. No aortic arch aneurysm. Moderate left and small rightpleural effusions. Mildly enlarged mediastinal and right hilar lymph nodes measuring up to 1.1 cm in short axis. No pneumothorax. Mild opacities posterior lower lobes and posterior right upper lobe. Coronary artery calcification: Moderate. Positive for pulmonary emboli in the left lower lobe. Bilateral pleural effusions. Atelectasis versus infection as above. Mild adenopathy which may be reactive. Direct communication to care team using [employer]. Notification included: OZZIE FERNANDEZ Approximate date and time: 03/01/2025 6:07 PMNote: Radiology results need to be interpreted within a comprehensive clinical context. If you havequestions about the radiology report, please contact the office of the ordering clinician. CT ABDOMEN PELVIS W CONTRAST Result Date: 03/01/2025 CT ABDOMEN AND PELVIS WITH CONTRAST, 03/01/2025 4:37 PM CLINICAL HISTORY: - abdominal Pain. COMPARISON: None. PROCEDURE COMMENTS: Multi-detector CT of the abdomen and pelvis with multiplanar reformatting. Isovue 370 IV contrast given as recorded in [employer] [facility], along with radiodense GI contrast. Dose 1 : CTDLP Total : 2203.78 mGycm DLP Spiral Max : 1641.65 mGycm Maximum CTDI Vol : 27.91 mGy FINDINGS: Lower chest: Bilateral pleural effusions and adjacent compressive atelectasis Liver: Normal. Gallbladder: Normal. Biliary tract: Normal for age. Pancreas: Normal. Spleen: Normal. Adrenals: Normal. Kidneys: Bilateral renal cysts. Atrophic right renal upper pole moiety Gastrointestinal tract: No acute small bowel findings.Grossly unremarkable stomach.Partially stool filled colon may reflect constipation. No CT findings to suggest acute appendicitis. Peritoneum: No pneumoperitoneum or pathologic free fluid. Mesentery and retroperitoneum: No adenopathy or aneurysm. Pelvic organs: No acute findings as visualized. Abdominal wall and diaphragm: Intact. Musculoskeletal: Multilevel lumbar postsurgical sequelae. Right hip arthroplasty with metal streak artifact limiting evaluation of adjacent structures. Right collection lateral to the right hip. Heterotopic ossification with possible fracture involving posterior aspect of the right greater trochanter. Moderate to severe left hip degenerative jointdisease. Bilateral sacroiliac degenerative joint disease. 1. Possible constipation. 2. Bilateral pleural effusions and adjacent compressive atelectasis. 3. Right hip arthroplasty with heterotopic ossification and possible fracture involving the posterior aspect of the right greater trochanter. - Note: Radiology results need to be interpreted within a compr ehensive clinical context. If you have questions about the radiology report, please contact the office of the ordering clinician. EK EKG [address] [facility] Test Date: 2025-03-01 Pat Name: STEVE KING Department: [facility] Room: W370 Gender: Male Nitrating Acid Mixer: : [id number] Requested By: STACIA Parson Order Number:[id number] Reading MD: David Mar Measurements Intervals Davin Rate: 75 P: 70 WI: 263 QRS: -29 QRSD: 138 T: 128 QT: 440 QTc: 491 Interpretive Statements SINUS RHYTHM WITH FIRST DEGREE AV BLOCK WITHOCCASIONAL SUPRAVENTRICULAR PREMATURE COMPLEXES BORDERLINE LEFT AXIS DEVIATION LBBB Electronically Signed On 03-01-2025 10:17:38 EDT by David Mar XR CHEST AP PORTABLE Result Date: 03/01/2025 XR CHEST AP PORTABLE, 03/01/2025 9:20 AM CLINICAL HISTORY: -chest pain COMPARISON: 02/26/2025 PROCEDURE COMMENTS: AP portable technique. FINDINGS: Support devices: Right PICC is well-positioned. Stableheart size with increased pulmonary vascularity/edema.. Suspected developing infiltrate or atelectasis in the left lower lung. Possible trace pleural fluid on the left.. No visible pneumothorax. Increased pulmonary vascularity/edema. Suspected developing infiltrate or atelectasis in the left lower lung. Possible trace left pleural fluid. - Note: Radiology results need to be interpreted within a comprehensive clinical context. If you have questions about the radiology report, please contactthe office of the ordering clinician. Glucose Lvl Date Value Ref Range Status 03/02/2025 78 70 - 99 mg/dL Final FSBS:No data found. This note was completed using voice recognition technology. Despite the securities underwriter's best efforts to proof read, it may still contain unintended errors. Please call with questions. * Aki Torre, PharmD - 03/02/2025 7:30 AM EDT Pharmacy Consult - Heparin S: Steve King is a(n) 89 y.o. male with diagnosis of acute PE in the left lower lobe. Allergies: Tetanus vaccines and toxoid. Pharmacy managing heparin therapy. Bleeding signs/symptoms noted: none. O: Anticoagulation therapy received prior to consult: apixaban 2.5 mg twice daily (Last dose 03/01 @0806) Was on Apixaban 5 mg bid IMAGERY INTELLIGENCE but dose was changed on 02/23 per ORTHO for half dose for 14 days and resume home dose afterwards. Most Recent Labs: Recent Labs 02/27/25 0902 02/27/25 1721 02/28/25 1700 03/01/25 0931 03/02/25 0618 WBC 7.5 -- -- 7.7 9.5 HGB 9.9* < > 9.7* 11.6* 9.3* HCT 30.3* < > 30.5* 35.5* 29.0* PLT 266 -- -- 252 280 < > = values in this interval not displayed. Recent Labs 03/01/25 0931 03/01/25 1945 03/02/25 0600 INR 1.33* -- -- HEPARINLEVEL -- 0.47 0.57 PTT 41.4* 38.8* 48.1* Recent Labs 02/27/25 0902 03/01/25 0931 03/01/25 1124 03/02/25 0618 HSCTNT -- 36* 37* -- DDIMER -- 1,096* -- -- BUN 22 15 -- 15 CREATININE 0.90 0.84 -- 0.86 Weight: 285 lb 3.2 oz (129.4 kg) Platelets are being monitored at least every 48 hours while the patient is receiving unfractionatedheparin therapy. A/P: Physician orders and progress notes reviewed. Hgb/Hct are low but stable. PTT is subtherapeutic at 48.1 seconds and anti-Xa is therapeutic at 0.57 units/mL on a rate of 1,370 units/hr. Anti-Xa remains elevated due to recent apixaban therapy, therefore, will continue to dose based on PTT until apixaban is cleared and the anti-Xa and PTT correlate. Will increase to 1,600 units/hour. Will follow pertinent lab parameters in 6 hours and adjust for goal (anti-Xa 0.3 - 0.7 unit/mL, aPTT 53 - 94 seconds). Thank you, Aki Torre, ErlinD * Bindu Sepulveda S, [facility] - 03/01/2025 7:17 PM EDT Pharmacy Consult - Heparin S: Steve King is a(n) 89 y.o. male with diagnosis of PE. Allergies: Tetanus vaccines and toxoid. PMH significant for atrial fibrillation. Pharmacy consulted for management of apixaban pharmacotherapy. Bleeding signs/symptoms noted: none. O: Anticoagulation therapy received prior to consult: apixaban 2.5 mg twice daily (Last dose 03/01 @0806) Was on Apixaban 5 mg bid IMAGERY INTELLIGENCE but dose was changed on 02/23 per ORTHO for half dose for 14 days and resume home dose afterwards. Most Recent Labs: Recent Labs 02/26/25 0745 02/27/25 0902 02/27/25 1721 02/28/25 0516 02/28/25 1700 03/01/25 0931 WBC 6.3 7.5 -- -- -- 7.7 HGB 10.4* 9.9* < > 9.1* 9.7* 11.6* HCT 31.7* 30.3* < > 27.9* 30.5* 35.5* PLT 313 266 -- -- -- 252 < > = values in this interval not displayed. Recent Labs 03/01/25 0931 INR 1.33* PTT 41.4* Recent Labs 02/26/25 0745 02/27/25 0902 03/01/25 0931 03/01/25 1124 HSCTNT -- -- 36* 37* DDIMER -- -- 1,096* -- BUN 24* 22 15 -- CREATININE 0.93 0.90 0.84 -- Weight: 251 lb 12.3 oz (114.2 kg) Recent Labs 03/01/25 0931 03/01/25 1124 HSCTNT 36* 37* A/P: Physician orders and progress notes reviewed. Will initiate therapy per low dose protocol, adjusted for age. Will obtain baseline labs as patient has received factor Xa inhibitors within last 72 hours Will hold bolus and initiate infusion at 1370 units/hour (~ 12 units/kg/hr). Pharmacy will follow pertinent lab parameters in 6 hours and adjust for goal (anti-Xa 0.3 - 0.7 unit/mL, aPTT 53 - 94 seconds). Bindu Sepulveda RPH * Antoinette Narayanan RN - 03/01/2025 12:05 PM EDT Attempted to call son Herve to get consent on CT scan with contrast and update him on father status. Left VM. Waiting harmonica maker back. * Ney Govea - 03/01/2025 11:54 AM EDT Images from the original note were not included. 03/01/25 1100 Reason for Visit Date of visit 03/01/25 Visited With Patient Visited By Gas Station Operator Referral Source Clinical Academic Affairs Specialist Reason for Visit Spiritual, emotional or social support;Pre-op visit Patient Assessment Patient Appears Calm;Pleasant;Anxious Spiritual Strengths and Coping Resources Meaning, isabella, support in sikh practices Patient Spiritual Wellbeing Appears to be coping adequately Interventions with Patient Pentecostal Interventions Prayer with patient or family Outcomes Expressed Outcomes Appreciative of visit;Appreciative of prayer/ritual Care Plan Plan for Follow-Up Gas Station Operator(s) will attempt follow-up visit(s) Ney Govea Gas Station Operator, Pastoral and Spiritual Care For non-urgent requests, please place a Pastoral Care consult in [facility]. For all urgent matters, please send an urgent [facility] Secure Chat to the Pastoral Care group at your location. Between 11pm and 7am, please use On-Call Finder to send an [facility] Secure Chat to the on-call data base design analyst. Pastoral Care office phone numbers: EDG/COV/GRT [phone], LUIS [phone], FTT [phone], DBN [phone] * Rebecca Ngo, Hand Tier - 03/01/2025 9:53 AM EDT Pharmacy PK Consult - Vancomycin AUC Dosing S: Steve King is a(n) 89 y.o. 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 Rapid response called on patient 03/01 AM for epigastric pain. Escalating ABX from cefazolin -> vancomycin/cefepime/metronidazole Patient had hip replacement ~2 years ago. He had MRSA following surgery and was treated for [address] with complex cyst surrounding the hip prosthesis. Allergies: Tetanus vaccines and toxoid Pharmacy re-consulted to manage vancomycin therapy. Pharmacy originally consulted 02/19-02/23 (d/c in the setting of negative PBP2a assay) Other antimicrobials include: IV cefepime - ordered 03/01 IV metronidazole - ordered 03/01 IV cefazolin (02/23 - 03/01) IV piperacillin-tazobactam (02/19 - 02/23) IV vancomycin (02/19 - 02/23) O: Most Recent Labs: Temp Min: 97.7 ??F (36.5 ??C) Max: 98.2 ??F (36.8 ??C) Recent Labs 02/23/25 1606 02/24/25 0513 02/25/25 0604 02/26/25 0745 02/27/25 0902 WBC 9.2 -- -- 6.3 7.5 BUN -- < > 21 24* 22 CREATININE -- < > 0.92 0.93 0.90 < > = values in this interval not displayed. Recent Labs 02/23/25 1046 VANCOAUC1 49.0 Recent Labs 02/26/25 1630 PROCLCTNIN 0.08 Recent Labs 02/26/25 1630 LACTA 1.5 Recent Labs 02/26/25 0745 02/26/25 1630 02/28/25 0516 CRP 75.55* 71.36* 42.59* I/O last 3 completed shifts: In: 2783.3 [P.O.:960; I.V.:1431.4; IV Piggyback:391.9] Out: 2150 [Urine:2150] I/O this shift: In: 83 [P.O.:83] Out: - Height: 6' 4 (193 cm) Weight: 251 lb 12.3 oz (114.2 kg) Culture & Sensitivities: (03/01) Blood culture, venous x 2: In process (02/23) Blood culture, venous x 2: NG @ 120 hours (02/22) Fungus culture, right hip x 3: NG @ 5 days (02/22) Wound culture, right hip x 3: NG @ 94 hours (02/22) Anaerobic culture, right hip x 3: NG @ 5 days (02/19) AFB Culture & smear, right hip: In process (02/19) Fungus stain, right hip: No yeast or fungal elements seen (02/19) Anaerobic culture, right hip: NG @ 5 days (02/19) Wound culture, right hip: Moderate growth of Staphylococcus aureus - PBP2a test negative Imaging & Radiology: (02/18) MRI Hip Right W WO Contrast: 1. 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 There is a large periarticular fluid collection closely associated with the posterior aspect of the joint capsule, extending into the trochanteric bursal region with extension towards the skin surface over the lateral trochanteric level. This collection demonstrates peripheral enhancement, worrisome forabscess. 2. No MRI evidence of periprosthetic osteolysis, marrow edema, or fracture. (03/01) XR Chest AP Portable: Increased pulmonary vascularity/edema. Suspected developing infiltrate or atelectasis in the left lower lung. Possible trace left pleural fluid. Patient's initial estimated kinetic parameters based on AUC kinetics: - CrCl = 80 mL/min - Based on AdjBw as BMI >30 - Ke = 0.0708 hr^-1 - Half-life = 9.79 hr ASSESSMENT AND PLAN: Physician orders and progress notes reviewed. Patient???s renal function is stable. (02/27) SCr = 0.90 mg/dL - Comparable to baseline CrCl (based on AdjBW as BMI >30) = 80.0 mL/min Will initiate vancomycin therapy with a 2,000 mg (~17.5 mg/kg) loading dose, followed by a maintenance dose of 1,750 mg (~15.3 mg/kg) every 18 hours. Dosing is based off of previous history from 02/21/2025 where the patient was SUBtherapeutic ([id number] mg*hr/L) on 1,500 mg q18h, and therapy was modified to 1,750 mg q18h. This dosing regimen is estimated to result in a predicted AUCss of 412 mg??hr/L; Goal AUC is 400-600. Will check levels on 03/03 between the 3rd and 4th dose. Pharmacy will follow patient for changes in renal function, efficacy, and signs of toxicity. Other labs: BMP ordered for the AM. Thanks, Rebecca Ngo, Hand Tier Cosigned by Feng Robin PharmTi at 03/01/2025 10:13 AM EDT Associated attestation - Feng Robin PharmD - 03/01/2025 10:13 AM EDT I have reviewed this patient and I agree with the assessment and plan as outlined below by the pharmacy services representative. Thanks, Jens Robin, Michelle PGY1 Tree And Shrub Technician * Stacia Shrestha MD - 03/01/2025 9:24 AM EDT RAPID RESPONSE NOTE Responded to code chest pain called for this patient. 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 RN reports pt complained of epigastric pain this AM. He was given Maalox for suspected gi etiology. Pt states he has pain in LUQ area. He appears comfortable, breathing on 2L, slow to respond but no grossly focal deficit. BP was noted low with SBP in 80s this AM (has been soft since last night). Afebrile. RN reports no bloody stool or significant output from Wd overnight. Labs and imaging reviewed. Wc cx + MSSA. Blcx NGTD Ecg showed sinus rhythm, no STT changes from last ecg 5DA Fsg stable CXR on my read shows possible LLL infiltrate Assessment/Outcome: Chest pain, atypical Pain is mostly in LUQ area. Ecg unchanged Obtain trops x2 creative intern Dresher labs Hypotension Suspected sepsis Already on cefazolin> escalate to vanc + cefepime + flagyl Blcx x2 VBG, LA, CRP and PCT Hold off lasix. Ok for flomax for now C/w eliquis for pAF. Hold if significant drop in h/h 1L NS bolus Monitor IO Dispo: keep in unit, but if BP remains low following IVB, transfer to ICU for pressor ### Critical care was administered to the patient for 45 minutes including review of prior charts, interpretation of labs and imaging results, and coordination of care with nurses and consultants. This time excludes procedure time. Stacia Shrestha MD * Rigoberto Restrepo PTA - 03/01/2025 9:19 AM EDT 03/01/25 0918 PT Subjective Note Type Follow Up Treatment Attempt Patient Room/Unit 370 PT Subjective Comments #1 Code chest pain ongoing. Will hold at this time. Therapy delay reason Medically not stable * Ozzie Fernandez MD - 03/01/2025 8:19 AM EDT Images from the original note were not included. [facility] Hospital Medicine Service Progress Note: [facility] Hospital Medicine Service Steve King LOS: 9 days Problems List Active Hospital Problems Diagnosis Right hip pain MSSA (methicillin susceptible Staphylococcus aureus) infection Conjunctival hyperemia of right eye NIGHAT (obstructive sleep apnea) Dyslipidemia Major neurocognitive disorder (HCC) Mood disorder Type 2 diabetes mellitus with diabetic polyneuropathy, without long-term current use of insulin (HCC) Environmental allergies Hyperkalemia Rash Dysphagia 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) Paroxysmal A-fib (HCC) BPH (benign prostatic hyperplasia) Resolved Hospital Problems No resolved problems to display. Assessment and Plan Reason for Adm: Steve King is a(n)89 y.o. male admitted for work-up and treatment for Right hip pain [M25.551]. Admitted on 02/16/2025: with: Right hip pain. Found to have right hip effusion. History of MEKA. Ortho and IR consulted for aspiration. MRI showing possible abscess. IR aspiration cultures positive for Staph aureus MSSA. Patient underwent washout yesterday. Currently working with PT. Antibiotics managed per ID.02/26 IR placed PICC line ID recommended IV cefazolin x 6 weeks from 02/22 - 04/05/25., Avoided rifampin due to apixaban, follow ID, patient continued to be hypotensive with drop mainly after given Lasix, started midodrine increased. Cardiology opinion requested discussed with infectious disease considering house physician suspected sepsis and adjusted IV antibiotic and his chest x-ray showed possible pneumonia to reevaluate pending culture and workup, CT c/w PE started on Heparin dc Eliquis 2 d ordered, consult pulm Code chest/abdominal pain pain called Troponin elevated 36-37 not trending D-dimer elevated will obtain CT angiogram rule out PE if possible rule out venous Doppler BNP elevated Patient on Eliquis Chest x-ray showed left lower lobe infiltrate and worsening vascularity will follow CT Okay to give bolus of 250 normal saline to support blood pressure patient continued hypotensive andCT consistent with pulmonary edema will transfer to ICU Unremarkable liver function test abdominal pain will check CT of the abdomen Will monitor closely -----At 6.42 pm , his CT c/w PE and Bilateral pleural effusions and adjacent compressive atelectasis.Positive for pulmonary emboli in the left lower lobe. Bilateral pleural effusions. Atelectasis versus infection as above. Mild adenopathy which may be reactive. Echo did not show restain of RV , But showed Evated Pulm BP -started on Heparin, dc Eliquis , 2 d Echo ordered, consult pulm for opinion Hypotensive 74/56 after Lasix Blood pressure in the 81/67>>>94/45---100/62>>>86/52---132/93 Check CRP and procalcitonin lactic acid, no sign of sepsis Holding his Lasix for blood pressure less than 100, will change to as needed Slightly dehydrated BUN slightly elevated 24>>>22>>15 Blood loss anemia Hg on Adm 12.7>>>>9.9>> hemoglobin 9.1 ---9.8possible delusional completing IV fluid in 3 hours Stool occult blood no specimen sent, will monitor H&H, \no sign of bleed possible delusional Complete IV fluid normal saline will monitor respiratory status Add midodrine, the patient was chronic hypotension, in addition to pain current medication, held Lasix monitor Will add hold parameter for Flomax Right hip prosthetic joint infection Presented with right hip pain Orthopedic consulted ID consulted infected MEKA? PRN pain control; IR consulted for aspration MRI R hip showed findings concerning for a right hip abscess Was Started on antibiotics IV vancomycin and Zosyn. Ortho recommend outpatient follow-up post aspiration 02/19 patient underwent IR US guided aspiration; Culture grew MSSA. MRSA screening negative 02/23 blood culture no growth 48HR, PICC per ID discussed with ID on 02/22/2025 he underwent for right hip arthrotomy with extensive debridement head and liner exchange for infection. IR placed PICC line ID recommended IV cefazolin x 6 weeks from 02/22 - 04/05/25., Avoided rifampin due to apixaban, follow ID+ 03/01 patient became again hypotensive IVABx change by House doc with suspicion of sepsis workup in process culture was repeated switched to vancomycin and cefepime and Flagyl Discussed with ID they will follow tomorrow 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) IMAGERY INTELLIGENCE lasix will hold patient hypertensive Will obtain 2D echo to evaluate X-ray showed vascular decongestion low suspicion of pulmonary edema patient recommended right side no rales Patient became hypotensive after the Lasix-tolerance New PE on CTA of the chest, reporte in the evening 2 d Echo Ef 20 with seer ASand diastolic Dysfunction, Elvated Puln BP no restrain repoorted Cardiology consulted Paroxysmal A-fib (HCC) HR 69 Rate controlled IMAGERY INTELLIGENCE meds On Eliquis per ortho decreased to 2.5 Hemoglobin 9.9 NIGHAT (obstructive sleep apnea) CPAP at night RT Dyslipidemia IMAGERY INTELLIGENCE Lipitor Major neurocognitive disorder (HCC) Seems at baseline 02/23 AAO, ?dementia; ?able to joint care of self? IMAGERY INTELLIGENCE Donepazil Mood disorder IMAGERY INTELLIGENCE Cymbalta Type 2 diabetes mellitus Uncontrolled BS 127>>>165--180 within the target BG in goal 140-180 and target continue 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 will resume for better control Start insulin basal bolus Lantus increased to 10 twice daily, HD SSI, POCT BG ACHS Environmental allergies Continue Flonase Hyperkalemia K 3.9--4.2 Resolved Rash monitor for now Dysphagia Speech eval, recs reviewed BPH (benign prostatic hyperplasia) IMAGERY INTELLIGENCE flomax decreased from 0.8-0.4 add hold parameter Conjunctival hyperemia of right eye Patient had scratched his right eye Started ophthalmic ointment 02/27 added TobraDex for 5 days applied to the right eye considering the photophobia Advised to use eye patch complaining of photophobia, slight improvement PT recom SNF DC planning in process, per ID recommendation GI Prophylaxis: proton pump inhibitor per orders VTE Prophylaxis: Qualifying Pharmacologic Prophylaxis apixaban (ELIQUIS) tablet 2.5 mg 2 TIMES DAILY apixaban (ELIQUIS) 5 mg Oral Tablet 2 TIMES DAILY Medically ready for discharge?: No In 1 to 2 days pending evaluation and improvement patient transferred to TCU after become hypotensive and having chest pain workup in process Subjective: Patient denied chest pain on my evaluation he stated have sudden abdominal pain resolved completelydenies shortness of breath. Denied fever or chills. Patient lightheaded considering the low blood pressure. He have his Lasix in the morning. Discussed with staff--bedside rounds with RN, care conference with charge nurse, care coordination/social service and/or pharmacist. ROS: As previously noted. Otherwise no changes except as stated above. Medications reviewed: apixaban 2.5 mg Oral BID atorvastatin 40 mg Oral Daily [COMPLETED] bacitracin-polymyxin b Right Eye TID bisacodyL 10 mg Oral BID Or bisacodyL 10 mg Rectal BID calcium carbonate-vitamin D 1 Tablet Oral Daily WM ceFAZolin 2 g Intravenous 3 times per day docusate sodium 100 mg Oral BID donepeziL 5 mg Oral Nightly DULoxetine 60 mg Oral Daily fUROsemide 20 mg Oral Daily insulin aspart U-100 1-15 Units Subcutaneous QID WM insulin glargine 10 Units Subcutaneous BID (Insulin) magnesium hydroxide 30 mL Oral Daily metFORMIN 500 mg Oral BID midodrine 2.5 mg Oral TID WM mupirocin Nasal BID pantoprazole 40 mg Oral Daily polyethylene glycol 17 g Oral Daily senna 17.2 mg Oral BID sodium chloride 0.9% 10 mL Intravenous 3 times per day tamsulosin 0.8 mg Oral Daily tobramycin-dexamethasone Right Eye TID sodium chloride 0.9 % 75 mL/hr at 03/01/25 0303 acetaminophen, alteplase, aluminum & magnesium hydroxide-simethicone, dextrose, fluticasone propionate, glucagon AND sterile water, melatonin, oxyCODONE, polyvinyl alcohol, sodium chloride 0.9%, sodium chloride 0.9%, sodium chloride 0.9% Objective: Vitals: 02/28/25 1500 02/28/25 2104 03/01/25 0252 03/01/25 0804 BP: (!) 86/52 96/63 106/57 (!) 132/93 BP Location: Left arm Left arm Left arm Left arm Patient Position: Sitting Semi Fowlers Semi Fowlers Pulse: 74 69 82 Resp: 14 18 Temp: 97.9 ??F (36.6 ??C) 97.9 ??F (36.6 ??C) 97.7 ??F (36.5 ??C) 98.2 ??F (36.8 ??C) TempSrc: Oral Oral Oral Oral SpO2: 93% 94% 94% 96% Weight: Height: Weight: 251 lb 12.3 oz (114.2 kg) Intake/Output Summary (Last 24 hours) at 03/01/2025 0819 Last data filed at 03/01/2025 0528 Gross per 24 hour Intake 2783.34 ml Output 2150 ml Net 633.34 ml Physical Exam: Appropriate PPE was donned during this visit Constitutional: Alert and oriented to person, place, and time. No distress. Cardiovascular: Normal rate and regular rhythm. Exam reveals no friction rub. No murmur heard. Pulmonary/Chest: Effort normal and breath sounds normal. No respiratory distress. There are no wheezes. Abdominal: Soft. Bowel sounds are normal. No distension. There is no tenderness. There is no rebound and no guarding. Musculoskeletal: Trace swelling edema. PICC line in the right upper extremity Neurological: Grossly weak Skin: Skin is warm and dry. No erythema. Data reviewed: I reviewed all labs, imaging studies and current inpatient medications as of this date Labs: Laboratory data and diagnostic testing reviewed. Recent Labs 02/23/25 1455 02/23/25 1606 02/24/25 0513 02/25/25 0604 02/26/25 0745 02/27/25 0902 02/27/25 1721 02/28/25 0516 02/28/25 1700 WBC -- 9.2 -- -- 6.3 7.5 -- -- -- HGB -- 9.9* < > 9.8* 10.4* 9.9* 9.7* 9.1* 9.7* HCT -- 30.3* < > 29.8* 31.7* 30.3* 29.3* 27.9* 30.5* MCV -- 96.2 -- -- 96.1 95.6 -- -- -- PLT -- 241 -- -- 313 266 -- -- -- NA -- -- < > 133* 138 137 -- -- -- K -- -- < > 4.5 4.3 3.9 -- -- -- CL -- -- < > 98 99 100 -- -- -- CO2 -- -- < > 25 26 26 -- -- -- BUN -- -- < > 21 24* 22 -- -- -- PROT 5.8* -- -- -- -- -- -- -- -- ALT 14 -- -- -- -- -- -- -- -- AST 14 -- -- -- -- -- -- -- -- ALKPHOS 99 -- -- -- -- -- -- -- -- LABBILI <0.2* -- -- -- -- -- -- -- -- BILIDIR <0.2 -- -- -- -- -- -- -- -- < > = values in this interval not displayed. No results found. Glucose [facility] Date Value Ref Range Status 02/27/2025 145 (H) 70 - 99 mg/dL Final FSBS:No data found. I spent 38 patientTotal critical care time caring for this patient with life threatening, unstable organ failure, including direct patient contact, management of life support systems, review of data including imaging and labs, discussions with other team members at least 38 Minutes so far today, excluding procedures. This note was completed using voice recognition technology. Despite the securities underwriter's best efforts to proof read, it may still contain unintended errors. Please call with questions. * Rigoberto Restrepo, IMAGERY INTELLIGENCE - 02/28/2025 1:32 PM EDT 02/28/25 1317 PT Subjective Note Type Treatment/Progress Patient Room/Unit 370 PT Subjective Comments #1 Patient pleasant and agreeable. Others Present/Assisting RN initially. Discharge Information This progress note will serve as the discharge summary if no further therapy is provided prior to the patient being discharged from the hospital. Admitting Diagnosis Right hip pain s/p Right hip I&D with head liner exchange/ wound vac 02/22 WBAT/ posterior approach Pain Screening PT/OT Patient Currently in Pain Yes Pain Rating 5 Pain Location Hip Pain Orientation Right Pain Intervention(s) Repositioned;Rest;Ambulation/Increased activity;Medication (see eMar) Cognition Orientation Intact Arousal Normal Safety Awareness Normal Affect/Ability to cope Normal Command Following Normal Memory Intact Communication Intact Precautions Therapy Precautions Yes Total Hip Replacement Posterior hip precautions Weight Bearing Status Weight bearing as tolerated;Right lower extremity Precaution Info Given Weight bearing;To use call light to request assistance with all mobility Other precautions Fall risk Additional Comments Reviewed precautions Observation Presentation Patient resting in bed Observation Bed alarm;IV;External urinary catheter Bed Mobility Rolling Stand by assist;Head of bed elevated;With bed rails Supine to Sit Stand by assist;Head of bed elevated;With bed rails Additional Comments Left sitting in chair. Transfers Sit to Stand Minimal assistance;With verbal cues;With raised bed height Stand to Sit Minimal assistance;With verbal cues;With raised bed height Additional Comments Sit to stand x3 trials. To/from elevated bed and chair. Cueing for hand placement and technique. Gait Gait Contact guard assist;With verbal cues Gait Distance (Feet) 65 Feet Assistive Device 2 Wheel walker Pattern Antalgic;Slow rick;Step to;Decreased stance time R;Decreased step length L;Decreased step length R Weight Bearing Status Weight bearing as tolerated Additional Comments Decreased gait speed with slight flexed posture. Decreased stance time RLE 2/2 weakness/pain. Functional Status Score (FSS-ICU) Is the patient currently in ICU? No PT/OT Mobility Documentation PT/OT Mobility Score 6 AM PAC: How much help from another person does the patient currently need... turning from your back to your side while in a flat bed without using bedrails? 3 moving from lying on your back to sitting on the side of a flat bed without using bedrails? 3 moving to and from a bed to a chair? 3 standing up from a chair using your arms (e.g. wheelchair, or bedside chair)? 3 need to walk in hospital room? 3 climbing 3-5 steps with a railing? 2 AM PAC: BASIC MOBILITY SCORING AM PAC Moblity Raw Score 17 AM PAC Mobility CMS 0-100% Functional Percentage 43.83 AM PAC Mobility CMS G Code Modifier CK Balance Sitting Balance 4+/5 moves/returns trunkal midpoint 1-2 inches in multiple planes Standing Balance 2/5 indep, requires both UE support Education Education To use call light to request assistance with all mobility;Patient/Family Education;Role of Therapy;Safety with mobility;Cues for proper technique;Discharge planning;Up with assistance only;Safe and proper technique with transfers;Safe and proper technique with gait pattern;Educated on benefits of mobility, upright positioning, and getting out of bed;Precautions;Safe and proper posture/positioning Patient Safety Patient Safety Patient left in chair with needs in reach;Chair/personal alarm activated;Nursing notified of status Assessment Assessment Decreased gait;Decreased functional mobility;Decreased balance;Decreased ADL status;Decreased activity tolerance ;Decreased endurance;Decreased self-care transfers;Decreased high-level ADLs;Decreased coordination Prognosis Good;With continued PT s/p acute discharge Progress Progressing toward goals Rationale for Skilled Therapy Fall Risk;Balance Deficits;Not safe with independent transfers;Not safe ambulating independently;Requires multi- disciplinary team;Able to make measurable improvements;Decreased endurance and tolerance to activity Plan Treatment/Interventions Continue with current plan of care PT Frequency Daily Recommendation PT Recommendation Moderate frequency, moderate intensity five days a week therapy recommended. Time In / Time Out 2819-1036 IP PT Treatment Minutes 19 The total time spent caring for this patient included but was not limited to medical record review;hands-on treatment;communication and education with patient and/or family/caregiver;communication with nursing and/or care coordination/social work regarding patient status and discharge planning * Ozzie Fernandez MD - 02/28/2025 8:55 AM EDT Images from the original note were not included. [facility] Hospital Medicine Service Progress Note: [facility] Hospital Medicine Service Steve King LOS: 8 days Problems List Active Hospital Problems Diagnosis Right hip pain MSSA (methicillin susceptible Staphylococcus aureus) infection Conjunctival hyperemia of right eye NIGHAT (obstructive sleep apnea) Dyslipidemia Major neurocognitive disorder ([facility]) Mood disorder Type 2 diabetes mellitus with diabetic polyneuropathy, without long-term current use of insulin (HCC) Environmental allergies Hyperkalemia Rash Dysphagia 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) ([facility]) Paroxysmal A-fib ([facility]) BPH (benign prostatic hyperplasia) Resolved Hospital Problems No resolved problems to display. Assessment and Plan Reason for Adm: Steve King is a(n)89 y.o. male admitted for work-up and treatment for Right hip pain [M25.551]. Admitted on 02/16/2025: with: Right hip pain. Found to have right hip effusion. History of MEKA. Ortho and IR consulted for aspiration. MRI showing possible abscess. IR aspiration cultures positive for Staph aureus MSSA. Patient underwent washout yesterday. Currently working with PT. Antibiotics managed per ID.02/26 IR placed PICC line ID recommended IV cefazolin x 6 weeks from 02/22 - 04/05/25., Avoided rifampin due to apixaban, follow ID hypotensive Blood pressure in the 81/67>>>94/45---100/62>>>86/52 Check CRP and procalcitonin lactic acid, no sign of sepsis Holding his Lasix for blood pressure less than 100, will change to as needed Slightly dehydrated BUN slightly elevated 24>>>22 Blood loss anemia Hg on Adm 12.7>>>>9.9>> hemoglobin 9.1 possible delusional completing IV fluid in 3 hours Stool occult blood no specimen sent, will monitor H&H, \no sign of bleed possible delusional Complete IV fluid normal saline will monitor respiratory status Add midodrine, the patient was chronic hypotension, in addition to pain current medication, held Lasix today monitor Right hip prosthetic joint infection Presented with right hip pain Orthopedic consulted ID consulted infected MEKA? PRN pain control; IR consulted for aspration MRI R hip showed findings concerning for a right hip abscess Was Started on antibiotics IV vancomycin and Zosyn. Ortho recommend outpatient follow-up post aspiration 02/19 patient underwent IR US guided aspiration; Culture grew MSSA. 02/23 blood culture no growth 48HR, PICC per ID discussed with ID on 02/22/2025 he underwent for right hip arthrotomy with extensive debridement head and liner exchange for infection. IR placed PICC line ID recommended IV cefazolin x 6 weeks from 02/22 - 04/05/25., Avoided rifampin due to apixaban, follow ID Paroxysmal A-fib (HCC) Rate controlled HR 71 02/28 [facility] meds On Eliquis per ortho decreased to 2.5 Hemoglobin 9.9 NIGHAT (obstructive sleep apnea) CPAP at night RT Dyslipidemia [facility] Lipitor Major neurocognitive disorder (HCC) Seems at baseline 02/23 AAO, ?dementia; ?able to joint care of self? 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 Start insulin basal bolus Lantus increased to 10 twice daily, HD SSI, POCT BG ACHS Environmental allergies Continue Flonase Hyperkalemia K 3.9 Resolved Rash monitor for now Dysphagia Speech eval, recs reviewed 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) compensated [facility] lasix BPH (benign prostatic hyperplasia) [facility] flomax Conjunctival hyperemia of right eye Patient had scratched his right eye Started ophthalmic ointment 02/27 added TobraDex for 5 days applied to the right eye considering the photophobia Advised to use eye patch complaining of photophobia, slight improvement PT recom SNF DC planning in process, per ID recommendation GI Prophylaxis: proton pump inhibitor per orders VTE Prophylaxis: Qualifying Pharmacologic Prophylaxis apixaban (ELIQUIS) tablet 2.5 mg 2 TIMES DAILY apixaban (ELIQUIS) 5 mg Oral Tablet 2 TIMES DAILY Medically ready for discharge?: No Anticipated ready for discharge timeframe?: Patient hypotensive with a drop of hemoglobin will monitor PT recommended custodial pending placement PICC line in place Subjective: \Patient sitting in the chair he feels much better. Some photosensitivity to the light. But improved. No fever or chills. Denies shortness of breath or chest pain or cough. Discussed with nurse Discussed with staff--bedside rounds with RN, care conference with charge nurse, care coordination/social service and/or pharmacist. ROS: As previously noted. Otherwise no changes except as stated above. Medications reviewed: apixaban 2.5 mg Oral BID atorvastatin 40 mg Oral Daily bacitracin-polymyxin b Right Eye TID bisacodyL 10 mg Oral BID Or bisacodyL 10 mg Rectal BID calcium carbonate-vitamin D 1 Tablet Oral Daily WM ceFAZolin 2 g Intravenous 3 times per day docusate sodium 100 mg Oral BID donepeziL 5 mg Oral Nightly DULoxetine 60 mg Oral Daily fUROsemide 20 mg Oral Daily insulin aspart U-100 1-15 Units Subcutaneous QID WM insulin glargine 10 Units Subcutaneous BID (Insulin) magnesium hydroxide 30 mL Oral Daily metFORMIN 500 mg Oral BID mupirocin Nasal BID polyethylene glycol 17 g Oral Daily senna 17.2 mg Oral BID sodium chloride 0.9% 10 mL Intravenous 3 times per day tamsulosin 0.8 mg Oral Daily tobramycin-dexamethasone Right Eye TID sodium chloride 0.9 % 75 mL/hr at 02/27/25 1724 acetaminophen, alteplase, aluminum & magnesium hydroxide-simethicone, dextrose, fluticasone propionate, glucagon AND sterile water, melatonin, oxyCODONE, polyvinyl alcohol, sodium chloride 0.9%, sodium chloride 0.9%, sodium chloride 0.9% Objective: Vitals: 02/27/25 0733 02/27/25 1402 02/27/25 1945 02/28/25 0227 BP: 95/64 94/45 100/67 100/62 BP Location: Left arm Left arm Left arm Left arm Patient Position: Semi Fowlers Sitting Semi Fowlers Semi Fowlers Pulse: 70 71 82 85 Resp: 18 18 18 18 Temp: 97.9 ??F (36.6 ??C) 97.9 ??F (36.6 ??C) 98 ??F (36.7 ??C) TempSrc: Oral Oral Oral SpO2: 100% 96% 98% 96% Weight: Height: Weight: 251 lb 12.3 oz (114.2 kg) Intake/Output Summary (Last 24 hours) at 02/28/2025 0855 Last data filed at 02/28/2025 0636 Gross per 24 hour Intake 840 ml Output 800 ml Net 40 ml Physical Exam: Appropriate PPE was donned during this visit Constitutional: Alert and oriented to person, place, and time. No distress. Cardiovascular: Normal rate and regular rhythm. Exam reveals no friction rub. No murmur heard. Pulmonary/Chest: Effort normal and breath sounds normal. No respiratory distress. There are no wheezes. Abdominal: Soft. Bowel sounds are normal. No distension. There is no tenderness. There is no rebound and no guarding. Musculoskeletal:+ edema. Neurological: Grossly weak Skin: Skin is warm and dry. No erythema. Data reviewed: I reviewed all labs, imaging studies and current inpatient medications as of this date Labs: Laboratory data and diagnostic testing reviewed. Recent Labs 02/23/25 1455 02/23/25 1606 02/24/25 0513 02/25/25 0604 02/26/25 0745 02/27/25 0902 02/27/25 1721 02/28/25 0516 WBC -- 9.2 -- -- 6.3 7.5 -- -- HGB -- 9.9* < > 9.8* 10.4* 9.9* 9.7* 9.1* HCT -- 30.3* < > 29.8* 31.7* 30.3* 29.3* 27.9* MCV -- 96.2 -- -- 96.1 95.6 -- -- PLT -- 241 -- -- 313 266 -- -- NA -- -- < > 133* 138 137 -- -- K -- -- < > 4.5 4.3 3.9 -- -- CL -- -- < > 98 99 100 -- -- CO2 -- -- < > 25 26 26 -- -- BUN -- -- < > 21 24* 22 -- -- PROT 5.8* -- -- -- -- -- -- -- ALT 14 -- -- -- -- -- -- -- AST 14 -- -- -- -- -- -- -- ALKPHOS 99 -- -- -- -- -- -- -- LABBILI <0.2* -- -- -- -- -- -- -- BILIDIR <0.2 -- -- -- -- -- -- -- < > = values in this interval not displayed. No results found. Glucose Lvl Date Value Ref Range Status 02/27/2025 145 (H) 70 - 99 mg/dL Final FSBS:No data found. This note was completed using voice recognition technology. Despite the securities underwriter's best efforts to proof read, it may still contain unintended errors. Please call with questions. * Iesha Grant BSW - 02/27/2025 3:22 PM EDT 02/27/25 1515 Ongoing Discharge Planning Evaluation Actual Discharge Plan 02/27 SW: Met with pt in room and explained multiple times that [facility] had declined him. [facility] has reviewed his clinicals and will not accept him and will not reconsider him. Pt states that he does not want to go to [facility], but that it is his second choice. Explained can look into other facility and does not have to go to [facility], but that he cannot goto [facility]. Pt continues that [facility] will only accept him for 10 days, because that is what happened in the past. Again explained each SNF stay through insurance is different and he likelydid not meet criteria for a longer stay in the past. Pt states that if he does not stay longer than10 days then it will be SW fault. Explained his insurance determines the length of stay that they will cover at a facility. Pt states he will go to [facility], but wants [facility]. * Tawny Bal PTA - 02/27/2025 2:41 PM EDT 02/27/25 1436 PT Subjective Note Type Treatment/Progress Patient Room/Unit 370 PT Subjective Comments #1 Pt agreeable to therapy Discharge Information This progress note will serve as the discharge summary if no further therapy is provided prior to the patient being discharged from the hospital. Pain Screening PT/OT Patient Currently in Pain Yes Pain Rating Patient unable to rate pain Pain Location Hip Pain Orientation Right Pain Intervention(s) Ambulation/Increased activity Cognition Orientation Intact Arousal Normal Safety Awareness Normal Affect/Ability to cope Normal Command Following Normal Memory Intact Communication Intact Precautions Therapy Precautions Yes Total Hip Replacement Posterior hip precautions Weight Bearing Status Weight bearing as tolerated Precaution Info Given Yes;Weight bearing;To use call light to request assistance with all mobility Other precautions abduction pillow Observation Presentation Patient seated in chair Observation IV;External urinary catheter;Bed alarm Vitals VSS Bed Mobility Additional Comments UIC Transfers Sit to Stand Minimal assistance Stand to Sit Contact guard assistance Bed to/from chair Contact guard assist;With verbal cues Gait Gait Contact guard assist Gait Distance (Feet) 50 Feet Assistive Device 2 Wheel walker Functional Status Score (FSS-ICU) Is the patient currently in ICU? No PT/OT Mobility Documentation PT/OT Mobility Score 6 AM PAC: How much help from another person does the patient currently need... turning from your back to your side while in a flat bed without using bedrails? 3 moving from lying on your back to sitting on the side of a flat bed without using bedrails? 3 moving to and from a bed to a chair? 3 standing up from a chair using your arms (e.g. wheelchair, or bedside chair)? 3 need to walk in hospital room? 3 climbing 3-5 steps with a railing? 2 AM PAC: BASIC MOBILITY SCORING AM PAC Moblity Raw Score 17 AM PAC Mobility CMS 0-100% Functional Percentage 43.83 AM PAC Mobility [facility] G Code Modifier CK Balance Sitting Balance 4/5 moves/returns trunkal midpoint 1-2 inches in multiple planes Standing Balance 2/5 indep, requires both UE support Exercise Exercise No Education Education To use call light to request assistance with all mobility;Patient/Family Education;Role of Therapy;Safety with mobility;Cues for proper technique;Discharge planning;Up with assistance only;Safe and proper technique with transfers;Safe and proper technique with gait pattern;Educated on benefits of mobility, upright positioning, and getting out of bed Patient Safety Patient Safety Patient left in chair with needs in reach;Chair/personal alarm activated Continuous Passive Motion CPM No Assessment Assessment Decreased gait;Decreased functional mobility;Decreased balance;Decreased ADL status;Decreased activity tolerance ;Decreased endurance;Decreased self-care transfers;Decreased high-level ADLs;Decreased coordination Prognosis Good;With continued PT s/p acute discharge Progress Progressing toward goals Rationale for Skilled Therapy Fall Risk;Balance Deficits;Not safe with independent transfers;Not safe ambulating independently;Requires multi- disciplinary team;Able to make measurable improvements;Decreased endurance and tolerance to activity Plan Treatment/Interventions Continue with current plan of care PT Frequency Daily Recommendation PT Recommendation Moderate frequency, moderate intensity five days a week therapy recommended. Time In / Time Out 1320/1340 IP PT Treatment Minutes 23 (Time added for AM chart review) The total time spent caring for this patient included but was not limited to medical record review;hands-on treatment;communication and education with patient and/or family/caregiver;assessment of the patient's progress since the last session;clinical judgement necessary for treatment planning for next session * Iesha Grant BSW - 02/27/2025 12:29 PM EDT 02/27/25 1220 Ongoing Discharge Planning Evaluation Actual Discharge Plan 02/27 SW: Met with pt in room to discuss discharge plans. Pt states that he ONLY has insurance coverage at [facility] and cannot go to another facility. Pt states that in the past his insurance only let him stay at [facility] for 10 days. Attempted to explain that pt may not have met skilled level of care at that time, but likely insurance would have covered the same amount of days at any innetwork SNF. [facility] has confirmed pt innetwork. Pt insists that the only facility he can go to is [facility]. DANIA spoke with Yoli [phone] ( ) with [facility] and they will review referral to see if able to consider. Pt will will need insurance [employer] for SNF. IV abx script received from ID and DANIA placed into pt's chart. SW continue to follow. * Katie Viera APRN - 02/27/2025 8:33 AM EDT SEP Infectious Diseases Progress Note Date of Admission: 02/16/2025 Primary Care Physician: No Pcp, Per Patient Antibiotics: IV Cefazolin Subjective: Afebrile, on RA. O/n events reviewed. Doing OK on current abx. Planning to d/c to rehab. Allergies Allergen Reactions Tetanus Vaccines And Toxoid Swelling Pt also states blisters with swelling Patient Vitals for the past 24 hrs: BP Temp Temp src Pulse Resp SpO2 02/27/25 0733 95/64 97.9 ??F (36.6 ??C) Oral 70 18 100 % 02/27/25 0603 109/67 97.8 ??F (36.6 ??C) Oral 79 18 97 % 02/26/25 1926 99/58 98.2 ??F (36.8 ??C) Oral 68 18 96 % 02/26/25 1809 95/61 -- -- -- -- -- 02/26/25 1629 (!) 85/53 -- -- -- -- -- 02/26/25 1531 (!) 81/67 97.9 ??F (36.6 ??C) Oral 71 17 96 % 02/26/25 0907 91/60 97.5 ??F (36.4 ??C) Oral 72 18 93 % Weight: 251 lb 12.3 oz (114.2 kg) Physical Exam: General Appearance: Alert, cooperative, no distress Head: Normocephalic, without obvious abnormality, atraumatic Eyes: PERRL, conjunctiva/corneas clear Nose: Nares normal, septum midline, mucosa normal, no drainage Mouth: mucosa moist Lungs: Good AE B/L, respirations unlabored Heart: Regular rate and rhythm, S1 and S2 normal Abdomen: Soft, non-tender, bowel sounds active Extremities: surgical incision to right hip with Prevena vac in place, no edema Skin: no rashes or lesions Neurologic: Grossly normal Line: +PIV Active LDAs PICC Line Duration PICC Single Lumen 02/26/25 Right Basilic <1 day Drain Duration External Urinary Catheter Male Purewick -- days Wound Duration Incision/Wound Closed Surgical Thigh Proximal;Right 4 days Medications Prior to Admission Medication Sig Dispense Refill Last Dose/Taking [DISCONTINUED] apixaban (ELIQUIS) 5 mg Oral Tablet Take 5 mg by mouth 2 times daily. Taking atorvastatin (LIPITOR) 40 mg Oral Tablet Take 40 mg by mouth daily. Taking calcium carbonate-vitamin D3 250 mg-3.125 mcg (125 unit) Oral Tablet Take 1 Tablet by mouth daily. Taking donepeziL (ARICEPT) 5 mg Oral Tablet Take 5 mg by mouth nightly. Taking DULoxetine (CYMBALTA) 60 mg Oral Capsule, Delayed Release(E.C.) Take 60 mg by mouth daily. Taking fluticasone propionate (FLONASE) 50 mcg/actuation Nasl [place], Suspension 2 Sprays by Nasal route 2 times daily as needed for Allergies. Taking fUROsemide (LASIX) 20 mg Oral Tablet Take 20 mg by mouth daily. Taking metFORMIN (GLUCOPHAGE) 500 mg Oral Tablet Take 500 mg by mouth 2 times daily. Taking polyvinyl alcohol (LIQUIFILM TEARS) 1.4 % Opht Drops Place 1 Drop into both eyes as needed for Dry Eyes. Taking tamsulosin (FLOMAX) 0.4 mg Oral Capsule Take 0.8 mg by mouth daily. Taking Current Facility-Administered Medications Medication Dose Route Frequency Provider Last Rate Last Admin 0.9 % NaCl infusion Intravenous Continuous Ozzie Fernandez MD 50 mL/hr at 02/27/25 0758 Rate Verify at 02/27/25 0758 acetaminophen (TYLENOL) tablet 650 mg 650 mg Oral Q4H PRN Berenice Dallas DO 650 mg at 02/27/25 0559 alteplase (ACTIVASE) injection 1 mg 1 mg Intercatheter PRN Katie Viera APRN aluminum & magnesium hydroxide-simethicone 200-200-20 mg/5 mL suspension 30 mL 30 mL Oral Q4H PRN Mason Jacome DO apixaban (ELIQUIS) tablet 2.5 mg 2.5 mg Oral BID Mason Jacome DO 2.5 mg at 02/27/25 0748 atorvastatin (LIPITOR) tablet 40 mg 40 mg Oral Daily Litzy Sepulveda APRN 40 mg at 02/27/25 0748 bacitracin-polymyxin b (POLYSPORIN) ophthalmic ointment Right Eye TID Ozzie Fernandez MD Given at 02/27/25 0749 bisacodyL (DULCOLAX) EC tablet 10 mg 10 mg Oral BID Mason Jacome DO 10 mg at 02/24/25 0826 Or bisacodyL (DULCOLAX) suppository 10 mg 10 mg Rectal BID Mason Jacome DO 10 mg at 02/24/252034 calcium carbonate-vitamin D 500 mg-5 mcg (200 unit) per tablet 1 Tablet 1 Tablet Oral Daily Litzy Sepulveda APRN 1 Tablet at 02/27/25 0748 ceFAZolin (ANCEF) IVPB 2 g 2 g Intravenous 3 times per day Katie Viera APRN Stopped at 02/27/25 0631 dextrose 50 % solution 25 mL 25 mL Intravenous PRN Berenice Dallas DO docusate sodium (COLACE) capsule 100 mg 100 mg Oral BID Mason Jacome DO 100 mg at 02/27/25 0748 donepeziL (ARICEPT) tablet 5 mg 5 mg Oral Nightly Litzy Sepulveda APRN 5 mg at 02/26/252053 DULoxetine (CYMBALTA) capsule 60 mg 60 mg Oral Daily Litzy Sepulveda APRN 60 mg at 02/27/25 0748 fluticasone propionate (FLONASE) 50 mcg/actuation nasal spray 2 [place] 2 [place] Nasal BID PRN Litzy Sepulveda APRN fUROsemide (LASix) tablet 20 mg 20 mg Oral Daily Ozzie eFrnandez MD 20 mg at 02/26/25 0909 glucagon (GLUCAGEN) injection 1 mg 1 mg Intramuscular PRN Berenice Dallas DO And sterile water injection 1 mL 1 mL Injection PRN Berenice Dallas DO insulin aspart U-100 (NovoLOG) injection 1-15 Units 1-15 Units Subcutaneous QID Berenice Dallas DO 3 Units at 02/27/25 0747 insulin glargine U-100 (LANTUS) injection 10 Units 10 Units Subcutaneous BID (Insulin) Berenice Dallas DO 10 Units at 02/27/25 0625 magnesium hydroxide (MILK OF MAGNESIA) 400 mg/5 mL suspension 30 mL 30 mL Oral Daily Mason Jacome DO 30 mL at 02/24/25 0826 melatonin tablet 5-10 mg 5-10 mg Oral Nightly PRN Taryn Camilo APRN 10 mg at 02/26/25 0109 metFORMIN (GLUCOPHAGE) tablet 500 mg 500 mg Oral BID Ozzie Fernandez MD 500 mg at 02/27/25 0748 mupirocin (BACTROBAN) 2 % ointment Nasal BID Katie Viera APRN Given at 02/27/25 0748 oxyCODONE (ROXICODONE) immediate release tablet 5-10 mg 5-10 mg Oral Q3H PRN Mason Jacome DO 10mg at 02/24/25 0827 polyethylene glycol (GLYCOLAX, MIRALAX) packet 17 g 17 g Oral Daily Sameer Ortega MD 17 g at 02/27/25 0747 polyvinyl alcohol (LIQUIFILM TEARS) 1.4 % ophthalmic solution 1 Drop 1 Drop Both Eyes PRN Litzy Sepulveda APRN 1 Drop at 02/23/25 2122 senna (SENOKOT) tablet 17.2 mg 17.2 mg Oral BID Sameer Ortega MD 17.2 mg at 02/27/25 0748 sodium chloride 0.9% IV line flush 20-50 mL 20-50 mL Intravenous PRN Katie Viera APRN sodium chloride 0.9% IV line flush 20-50 mL 20-50 mL Intravenous PRN Sameer Ortega MD Stopped at 02/25/25 1453 sodium chloride 0.9% syringe 10 mL 10 mL Intravenous 3 times per day Katie Viera APRN 10 mLat 02/26/25 1300 sodium chloride 0.9% syringe Intravenous PRN Katie Viera APRN tamsulosin (FLOMAX) capsule 0.8 mg 0.8 mg Oral Daily Litzy Sepulveda APRN 0.8 mg at 02/27/25 0748 Immunization History Administered Date(s) Administered Influenza Vaccine Trivalent Adjuvanted PF 08/06/2020 Moderna SARS-CoV-2 Vaccine 12+ Yrs (Light blue border) 11/18/2020, 06/09/2021 Moderna SARS-CoV-2 Vaccine 12+ Yrs Spikevax 08/24/2023 Quadrivalent Influenza High Dose 06/24/2021 Labs: Lab Results Component Value Date WBC 6.3 02/26/2025 HGB 10.4 (L) 02/26/2025 HCT 31.7 (L) 02/26/2025 MCV 96.1 02/26/2025 PLT 313 02/26/2025 Lab Results Component Value Date GLU 127 (H) 02/26/2025 NA 138 02/26/2025 K 4.3 02/26/2025 CO2 26 02/26/2025 CL 99 02/26/2025 BUN 24 (H) 02/26/2025 CREATININE 0.93 02/26/2025 Results for orders placed or performed during the hospital encounter of 02/16/25 (from the past 2 weeks) WOUND CULTURE (STAIN INCLUDED) Collection Time: 02/19/25 12:43 PM Specimen: Hip, Right; Aspirate Result Value Ref Range Culture Positive Growth (A) Culture Moderate growth of Staphylococcus aureus PBP2a test Negative Stain Moderate WBCs Stain No organisms seen Susceptibility Staphylococcus aureus - SUSCEPTIBILITY RESULT* Ampicillin Cefazolin Ceftaroline Ceftriaxone Chloramphenicol <=8 Susceptible ug/mL Ciprofloxacin >2 Resistant ug/mL Clindamycin <=0.25 Susceptible ug/mL Daptomycin Erythromycin <=0.25 Susceptible ug/mL Gentamicin 4 Susceptible ug/mL Gentamicin synergy Levofloxacin >4 Resistant ug/mL Linezolid Moxifloxacin 2 Resistant ug/mL Nitrofurantoin Oxacillin <=0.25 Susceptible ug/mL Penicillin Rifampin <=1 Susceptible ug/mL Streptomycin synergy Synercid Tetracycline <=2 Susceptible ug/mL Tigecycline Trimethoprim/Sulfamethoxazole <=0.5/9.5 Susceptible ug/mL Vancomycin 1 Susceptible ug/mL * Rifampin and Gentamicin should not be used alone for antimicrobial therapy. For methicillin resistant staphylococci, ciprofloxacin should also not be used alone. ANAEROBIC CULTURE (NO STAIN) Collection Time: 02/19/25 12:43 PM Specimen: Hip, Right; Aspirate Result Value Ref Range Culture No anaerobic growth at 5 days. FUNGUS STAIN (STAIN ONLY) Collection Time: 02/19/25 12:43 PM Specimen: Hip, Right; Aspirate Result Value Ref Range Fungal Stain No yeast or fungal elements seen. No yeast or fungal elements seen. ACID FAST BACILLI CULTURE AND SMEAR (STAIN INCLUDED) Collection Time: 02/19/25 12:43 PM Specimen: Hip, Right; Aspirate Result Value Ref Range AFB Stain SEE NOTE AFB Culture SEE NOTE ANAEROBIC CULTURE (NO STAIN) Collection Time: 02/22/25 9:03 AM Specimen: Hip, Right; Tissue Result Value Ref Range Culture No anaerobic growth to date. WOUND CULTURE (STAIN INCLUDED) Collection Time: 02/22/25 9:03 AM Specimen: Hip, Right; Tissue Result Value Ref Range Culture No growth at 94 hours. Stain Moderate RBCs Stain Rare WBCs Stain No organisms seen ANAEROBIC CULTURE (NO STAIN) Collection Time: 02/22/25 9:05 AM Specimen: Hip, Right; Tissue Result Value Ref Range Culture No anaerobic growth to date. WOUND CULTURE (STAIN INCLUDED) Collection Time: 02/22/25 9:05 AM Specimen: Hip, Right; Tissue Result Value Ref Range Culture No growth at 94 hours. Stain Few RBCs Stain No WBCs seen Stain No organisms seen ANAEROBIC CULTURE (NO STAIN) Collection Time: 02/22/25 9:05 AM Specimen: Hip, Right; Tissue Result Value Ref Range Culture No anaerobic growth to date. WOUND CULTURE (STAIN INCLUDED) Collection Time: 02/22/25 9:05 AM Specimen: Hip, Right; Tissue Result Value Ref Range Culture No growth at 94 hours. Stain Few RBCs Stain No WBCs seen Stain No organisms seen BLOOD CULTURE (NO STAIN) Collection Time: 02/23/25 2:55 PM Specimen: Blood, Venous Result Value Ref Range Culture Result No Growth at 72 hours. BLOOD CULTURE (NO STAIN) Collection Time: 02/23/25 4:06 PM Specimen: Blood, Venous Result Value Ref Range Culture Result No Growth at 72 hours. 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 C/b Staph aureus infection and was treated with 6 weeks of IV cefazolin and rifampin until August 2022. 02/18 Right hip MRI showed a large periarticular fluid collection closely associated with the posterior aspect of the joint capsule, extending into the trochanteric bursal region with extension towardsthe skin surface over the lateral trochanteric level, this collection demonstrates peripheral enhancement, worrisome for abscess. 02/19/25 S/p right hip aspiration. Cell count showing 294 RBC, 56K TNC (84% segs). Cultures +growth of MSSA AFB Cx pending Synovasure pending 02/22 S/p OR for right hip arthrotomy with extensive debridement and head and liner exchange for infection Operative cultures NGTD Hx of MRSA infection in back? - per patient report PAF On Eliquis T2DM NIGHAT Heart failure Plan: Continue IV Cefazolin to complete 6 weeks from date of surgery (02/22- 04/05/25). Would avoid Rifmapindue to drug-drug interactions. Scripts provided. Abx med rec completed. Obtain weekly CBC w/ diff, CMP, ESR, and CRP while on antibiotics Routine PICC care D/c PICC when antibiotics complete Monitor fever/BP curve, I/O's, serum electrolytes, WBC & platelet trend, Liver and renal function Discussed with patient. Case reviewed, patient seen with Dr. Rodriguez Infectious Disease Disposition Perspective - Medically Ready for Discharge: Yes, to rehab when set up Timeframe for follow-up: 3-4 weeks To be arranged: By my office at discharge Medication recommendations: IV antibiotic treatment No pending issues from Infectious Disease standpoint. Please call with any questions. ID will sign off. Katie Viera APRN Cosigned by Nick Elkins MD at 02/27/2025 12:09 PM EDT Associated attestation - Nick Elkins MD - 02/27/2025 12:09 PM EDT Physical Exam: General Appearance: Alert, cooperative, no distress Head: Normocephalic, without obvious abnormality, atraumatic Eyes: conjunctiva/corneas clear Nose: Nares normal, septum midline, mucosa normal, no drainage Mouth: mucosa moist Lungs: Good AE B/L, respirations unlabored Heart: Regular rate and rhythm, S1 and S2 normal Abdomen: Soft, non-tender, bowel sounds active Extremities: surgical incision to right hip with Prevena vac in place, no edema Skin: no rashes or lesions Neurologic: Grossly normal Line: +PIV Assessment # Right hip prosthetic joint infection Important to note he had a right total hip replacement on May 2022 at an outside hospital. Per review of medical records he had a staph auris infection and he was treated with 6 weeks of IV cefazolin and oral rifampin until August 2022. Unclear if he had oral suppressive therapy after completing this course. Was not able to find any evidence of this in the records. Patient has been complaining of uncomfortable sensation around his right hip. On 02/18 he had an right hip MRI which showed findings concerning for a right hip abscess. On 02/19/2025 had a hip aspirationwith 294 RBC 56,000 TNC (84% segmented cells). Culture grew MSSA. So on 02/22/2025 he underwent for right hip arthrotomy with extensive debridement head and liner exchange for infection. IntraOp cultures were obtained. # Prior history of MRSA versus MSSA infection # PAF # T2DM # NIGHAT # Heart failure Plan - Continue IV cefazolin x 6 weeks from 02/22 - 04/05/25. May need to consider suppressive dose after. - Avoided rifampin due to apixaban - Follow-up Synovasure from 02/19 - Remove PICC once IV ABX completed - Monitor CBC, CMP, ESR and CRP - ID will continue to follow in office - ID will sign off. If any new events please call us back. Pertinent laboratory and imaging results personally reviewed. Patient seen and examined with Katie Viera APRN. Reviewed documentation per EVS MANAGER. Nick Mandujano MD * Ozzie Fernandez MD - 02/27/2025 8:25 AM EDT Images from the original note were not included. [facility] Hospital Medicine Service Progress Note: [facility] Hospital Medicine Service Steve King LOS: 7 days Problems List Active Hospital Problems Diagnosis Right hip pain MSSA (methicillin susceptible Staphylococcus aureus) infection Conjunctival hyperemia of right eye NIGHAT (obstructive sleep apnea) Dyslipidemia Major neurocognitive disorder (HCC) Mood disorder Type 2 diabetes mellitus with diabetic polyneuropathy, without long-term current use of insulin (HCC) Environmental allergies Hyperkalemia Rash Dysphagia 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) ([facility]) Paroxysmal A-fib ([facility]) BPH (benign prostatic hyperplasia) Resolved Hospital Problems No resolved problems to display. Assessment and Plan Reason for Adm: Steve King is a(n)89 y.o. male admitted for work-up and treatment for Right hip pain [M25.551]. Admitted on 02/16/2025: with: Right hip pain. Found to have right hip effusion. History of MEKA. Ortho and IR consulted for aspiration. MRI showing possible abscess. IR aspiration cultures positive for Staph aureus MSSA. Patient underwent washout yesterday. Currently working with PT. Antibiotics managed per ID. PICC line was order considering culture to 48 hours negative, Hypotensive Blood pressure in the 81/67>>>94/45 Check CRP and procalcitonin lactic acid, no sign of sepsis Holding his Lasix for blood pressure less than 100, will change to as needed Slightly dehydrated BUN slightly elevated 24>>>22 Blood loss anemia Hg on Adm 12.7>>>>9.9 Will check stool occult blood, will monitor H&H, on IV fluid normal saline will monitor respiratory status Right hip prosthetic joint infection Presented with right hip pain Orthopedic consulted ID consulted infected MEKA? PRN pain control; IR consulted for aspration MRI R hip showed findings concerning for a right hip abscess Was Started on antibiotics IV vancomycin and Zosyn. Ortho recommend outpatient follow-up post aspiration 02/19 patient underwent IR US guided aspiration; Culture grew MSSA. 02/23 blood culture no growth 48HR, PICC per ID discussed with ID on 02/22/2025 he underwent for right hip arthrotomy with extensive debridement head and liner exchange for infection. 12 IR placed PICC line ID recommended IV cefazolin x 6 weeks from 02/22 - 04/05/25., Avoided rifampin due to apixaban, follow ID Paroxysmal A-fib (HCC) Rate controlled HR 71 02/27 [facility] meds On Eliquis per ortho decreased to 2.5 Hemoglobin 9.9 NIGHAT (obstructive sleep apnea) CPAP at night RT Dyslipidemia [facility] Lipitor Major neurocognitive disorder (HCC) Seems at baseline 02/23 AAO, ?dementia; ?able to joint care of self? 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 Start insulin basal bolus Lantus increased to 10 twice daily, HD SSI, POCT BG ACHS Environmental allergies Continue Flonase Hyperkalemia K 3.9 Resolved Rash monitor for now Dysphagia Speech tae gray reviewed 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) compensated [facility] lasix BPH (benign prostatic hyperplasia) [facility] flomax Conjunctival hyperemia of right eye Patient had scratched his right eye Started ophthalmic ointment 02/27 added TobraDex for 5 days applied to the right eye considering the photophobia Advised to use eye patch complaining of photophobia, slight improvement PT recom SNF DC planning in process, per ID recommendation VTE Prophylaxis: Qualifying Pharmacologic Prophylaxis apixaban (ELIQUIS) tablet 2.5 mg 2 TIMES DAILY apixaban (ELIQUIS) 5 mg Oral Tablet 2 TIMES DAILY Medically ready for discharge?: No Anticipated ready for discharge timeframe?: Patient blood pressure is low will continue IV fluid hold on Lasix, plus PT recommended SNF DC planning in process possible Sunday Subjective: Patient complaining again of photophobia in the right eye, being lightheaded when he stands up. Blood pressure on the low side, will start IV fluid again. Patient is specific about the facility like to go to discussed with pillowcase sewer DC planning in process Discussed with staff--bedside rounds with RN, care conference with charge nurse, care coordination/social service and/or pharmacist. ROS: As previously noted. Otherwise no changes except as stated above. Medications reviewed: apixaban 2.5 mg Oral BID atorvastatin 40 mg Oral Daily bacitracin-polymyxin b Right Eye TID bisacodyL 10 mg Oral BID Or bisacodyL 10 mg Rectal BID calcium carbonate-vitamin D 1 Tablet Oral Daily WM ceFAZolin 2 g Intravenous 3 times per day docusate sodium 100 mg Oral BID donepeziL 5 mg Oral Nightly DULoxetine 60 mg Oral Daily fUROsemide 20 mg Oral Daily insulin aspart U-100 1-15 Units Subcutaneous QID WM insulin glargine 10 Units Subcutaneous BID (Insulin) magnesium hydroxide 30 mL Oral Daily metFORMIN 500 mg Oral BID mupirocin Nasal BID polyethylene glycol 17 g Oral Daily senna 17.2 mg Oral BID sodium chloride 0.9% 10 mL Intravenous 3 times per day tamsulosin 0.8 mg Oral Daily sodium chloride 0.9 % 50 mL/hr at 02/27/25 0758 acetaminophen, alteplase, aluminum & magnesium hydroxide-simethicone, dextrose, fluticasone propionate, glucagon AND sterile water, melatonin, oxyCODONE, polyvinyl alcohol, sodium chloride 0.9%, sodium chloride 0.9%, sodium chloride 0.9% Objective: Vitals: 02/26/25 1809 02/26/25 1926 02/27/25 0603 02/27/25 0733 BP: 95/61 99/58 109/67 95/64 BP Location: Left arm Left arm Left arm Patient Position: Semi Fowlers Semi Fowlers Semi Fowlers Pulse: 68 79 70 Resp: 18 18 18 Temp: 98.2 ??F (36.8 ??C) 97.8 ??F (36.6 ??C) 97.9 ??F (36.6 ??C) TempSrc: Oral Oral Oral SpO2: 96% 97% 100% Weight: Height: Weight: 251 lb 12.3 oz (114.2 kg) Intake/Output Summary (Last 24 hours) at 02/27/2025 0825 Last data filed at 02/27/2025 0758 Gross per 24 hour Intake 1784.91 ml Output 1500 ml Net 284.91 ml Physical Exam: Appropriate PPE was donned during this visit Constitutional: Alert and oriented to person, place, and time. No distress. Obese Cardiovascular: Normal rate and regular rhythm. Exam reveals no friction rub. No murmur heard. Patient still have some congestion in his right conjunctiva but been stable compared to yesterday was photosensitivity no sign of corneal abrasion or scarring. Pulmonary/Chest: Effort normal and breath sounds normal. No respiratory distress. There are no wheezes. Abdominal: Soft. Bowel sounds are normal. No distension. There is no tenderness. There is no rebound and no guarding. Musculoskeletal: No edema. Wound VAC right hip. In place Neurological: Grossly weak Skin: Skin is warm and dry. No erythema. Data reviewed: I reviewed all labs, imaging studies and current inpatient medications as of this date Labs: Laboratory data and diagnostic testing reviewed. Recent Labs 02/21/25 0602 02/23/25 0540 02/23/25 1455 02/23/25 1606 02/24/25 0513 02/25/25 0604 02/26/25 0745 WBC 5.6 -- -- 9.2 -- -- 6.3 HGB 11.1* < > -- 9.9* 9.6* 9.8* 10.4* HCT 33.8* < > -- 30.3* 29.7* 29.8* 31.7* MCV 94.7 -- -- 96.2 -- -- 96.1 PLT 209 -- -- 241 -- -- 313 NA 134* < > -- -- 134* 133* 138 K 4.2 < > -- -- 4.2 4.5 4.3 CL 100 < > -- -- 100 98 99 CO2 23 < > -- -- 23 25 26 BUN 25* < > -- -- 24* 21 24* PROT -- -- 5.8* -- -- -- -- ALT -- -- 14 -- -- -- -- AST -- -- 14 -- -- -- -- ALKPHOS -- -- 99 -- -- -- -- LABBILI -- -- <0.2* -- -- -- -- BILIDIR -- -- <0.2 -- -- -- -- < > = values in this interval not displayed. XR CHEST AP PORTABLE Result Date: 02/26/2025 XR CHEST AP PORTABLE, 02/26/2025 11:22 AM CLINICAL HISTORY: -PICC line placement and location COMPARISON: None. PROCEDURE COMMENTS: AP portable technique. FINDINGS: Support devices: Right-sided PICC line is present, projecting to the proximal SVC. No pneumothorax. Mild atelectasis at the right base.Cardiomegaly is present. Uncomplicated appearing right-sided PICC line. - Note: Radiology results need to be interpreted within a comprehensive clinical context. If you have questions about the radiology report, please contact the office of the ordering clinician. Glucose l Date Value Ref Range Status 02/26/2025 127 (H) 70 - 99 mg/dL Final FSBS:No data found. This note was completed using voice recognition technology. Despite the securities underwriter's best efforts to proof read, it may still contain unintended errors. Please call with questions. * Diego Kalyn, OT - 02/26/2025 1:26 PM EDT 02/26/25 1322 OT Subjective Note Type Treatment/Progress Patient Room/Unit 370 OT Subjective Comments #1 Pt agreed to exiting bed Discharge Information This progress note will serve as the discharge summary if no further therapy is provided prior to the patient being discharged from the hospital. Admitting Diagnosis Right hip pain s/p Right hip I&D with head liner exchange/ wound vac 02/22 WBAT/ posterior approach Precautions Therapy Precautions Yes Total Hip Replacement Posterior hip precautions Weight Bearing Status Weight bearing as tolerated Precaution Info Given Yes;Weight bearing;To use call light to request assistance with all mobility Other precautions abduction pillow Cognition Orientation Intact Arousal Normal Safety Awareness Normal Affect/Ability to cope Normal Command Following Normal Memory Intact Communication Intact Pain Screening PT/OT Patient Currently in Pain Yes Pain Rating Patient unable to rate pain Pain Location Hip Pain Orientation Right Pain Intervention(s) Ambulation/Increased activity;Repositioned Observation Presentation Patient resting in bed Observation IV;External urinary catheter;Bed alarm Vitals no signs of vital distress ADL Interventions Where Assessed Edge of bed LE Dressing Assistance Total;Don/doff L sock;Don/doff R sock Toileting External catheter Bed Mobility Rolling Supervision;Head of bed elevated;With bed rails Supine to Sit Supervision;Head of bed elevated;With bed rails Transfers Sit to Stand Contact guard assist;With verbal cues;Walker Stand to Sit Contact guard assistance;Walker Bed to/from chair Contact guard assist;Walker OT Gait Gait Contact guard assist Gait Distance (Feet) 5 Feet Assistive Device 2 Wheel walker Balance Sitting Balance 4/5 moves/returns trunkal midpoint 1-2 inches in multiple planes Standing Balance 2/5 indep, requires both UE support PT/OT Mobility Documentation PT/OT Mobility Score 6 Exercise Exercise No Functional Status Score (FSS-ICU) Is the patient currently in ICU? No AM PAC: How much help from another person does the patient currently need... putting on and taking off regular lower body clothing? 2 bathing (including washing, rinsing, drying)? 2 toileting, which includes using toilet, bedpan or urinal? 2 putting on and taking off regular upper body clothing? 3 taking care of personal grooming such as brushing teeth? 3 eating meals? 3 AM PAC DAILY ACTIVITY SCORING Daily Activity Raw Score 15 AM PAC Daily Activity CMS 0-100% Functional Percentage 56.46 AM PAC Daily Activity CMS G Code Modifier CK Education Education To use call light to request assistance with all mobility;Patient/Family Education;Role of Therapy;Safety with mobility;Cues for proper technique;Discharge planning;Up with assistance only;Safe and proper technique with transfers;Safe and proper technique with gait pattern;Educated on benefits of mobility, upright positioning, and getting out of bed Patient Safety Patient left in chair with needs in reach;Chair/personal alarm activated Assessment Assessment Decreased ADL status;Decreased UE strength;Decreased Safe judgement during ADL;Decreasedself-care transfers;Decreased high-level ADLs Rationale for Skilled Therapy Fall Risk;Balance Deficits;Not safe with independent transfers;Not safe ambulating independently;Requires multi- disciplinary team;Able to make measurable improvements;Decreased endurance and tolerance to activity Additional Goals Additional Goals ADLs: CGA UB, Mod a LB with AE to adhere to hip precautions (not met) Additionals Goals 2 ADL/functional transfers: SBA (not met) Additional Goals 3 Bed mobility: SPV (met but continue for carryover) Plan Treatment Interventions ADL retraining;Functional transfer training;UE strengthening/ROM;Patient/Family training;Equipment eval/education;Continued evaluation Recommendation OT Recommendation Moderate frequency, moderate intensity five days a week therapy recommended. Time In / Time Out [id number] IP OT Individual Treatment Minutes 17 The total time spent caring for this patient included but was not limited to medical record review;hands-on treatment;communication and education with patient and/or family/caregiver;assessment of the patient's progress since the last session;clinical judgement necessary for treatment planning for next session * Tawny Bal PTA - 02/26/2025 12:33 PM EDT 02/26/25 1225 PT Subjective Note Type Treatment/Progress Patient Room/Unit 370 PT Subjective Comments #1 Pt pleasant and agreeable to therap Discharge Information This progress note will serve as the discharge summary if no further therapy is provided prior to the patient being discharged from the hospital. Pain Screening PT/OT Patient Currently in Pain Yes Pain Rating Patient unable to rate pain Pain Location Hip Pain Orientation Right Pain Intervention(s) Repositioned;Ambulation/Increased activity;Emotional support Cognition Orientation Intact Arousal Normal Safety Awareness Normal Affect/Ability to cope Normal Command Following Normal Memory Intact Communication Intact Vision Pt with R eye infection, wearing a nighttime sleep mask over eye due to sensitivity Precautions Therapy Precautions Yes Total Hip Replacement Posterior hip precautions Weight Bearing Status Weight bearing as tolerated Precaution Info Given Yes;Weight bearing;To use call light to request assistance with all mobility Other precautions abduction pillow Bed Mobility Rolling Stand by assist Supine to Sit Stand by assist Transfers Sit to Stand Minimal assistance;Contact guard assist Stand to Sit Contact guard assistance Bed to/from chair Contact guard assist Gait Gait Contact guard assist Gait Distance (Feet) 50 Feet Assistive Device 2 Wheel walker Pattern Antalgic;Slow rick;Step to;Shuffle Weight Bearing Status Weight bearing as tolerated Vitals VSS Functional Status Score (FSS-ICU) Is the patient currently in ICU? No PT/OT Mobility Documentation PT/OT Mobility Score 6 AM PAC: How much help from another person does the patient currently need... turning from your back to your side while in a flat bed without using bedrails? 3 moving from lying on your back to sitting on the side of a flat bed without using bedrails? 3 moving to and from a bed to a chair? 3 standing up from a chair using your arms (e.g. wheelchair, or bedside chair)? 3 need to walk in hospital room? 3 climbing 3-5 steps with a railing? 2 AM PAC: BASIC MOBILITY SCORING AM PAC Moblity Raw Score 17 AM PAC Mobility CMS 0-100% Functional Percentage 43.83 AM PAC Mobility [facility] G Code Modifier CK Balance Sitting Balance 4/5 moves/returns trunkal midpoint 1-2 inches in multiple planes Standing Balance 2/5 indep, requires both UE support Exercise Exercise No Education Education To use call light to request assistance with all mobility;Patient/Family Education;Role of Therapy;Safety with mobility;Cues for proper technique;Discharge planning;Up with assistance only;Safe and proper technique with transfers;Safe and proper technique with gait pattern;Educated on benefits of mobility, upright positioning, and getting out of bed Patient Safety Patient Safety Patient left in chair with needs in reach;Chair/personal alarm activated Continuous Passive Motion CPM No Assessment Assessment Decreased gait;Decreased functional mobility;Decreased balance;Decreased ADL status;Decreased activity tolerance ;Decreased endurance;Decreased self-care transfers;Decreased high-level ADLs;Decreased coordination Prognosis Good;With continued PT s/p acute discharge Progress Progressing toward goals Rationale for Skilled Therapy Fall Risk;Balance Deficits;Not safe with independent transfers;Not safe ambulating independently;Requires multi- disciplinary team;Able to make measurable improvements;Decreased endurance and tolerance to activity Plan Treatment/Interventions Continue with current plan of care PT Frequency Daily Recommendation PT Recommendation Moderate frequency, moderate intensity five days a week therapy recommended. Time In / Time Out [id number] IP PT Treatment Minutes 38 The total time spent caring for this patient included but was not limited to medical record review;hands-on treatment;communication and education with patient and/or family/caregiver;assessment of the patient's progress since the last session;clinical judgement necessary for treatment planning for next session * Iesha Grant BSW - 02/26/2025 11:20 AM EDT This note was not released electronically to the patient for the following reason(s): the note contains a sensitive social service issue 02/26/25 1114 Ongoing Discharge Planning Evaluation Actual Discharge Plan 02/26 SW: Pt requesting 1. [facility], 2. [facility]. SW also spoke with son and he reports that he wants pt to go to [facility] in case pt needs buttermaker helper care, but does not want pt to know that he wants [facility]. Son wants to do whatever pt wants. Referral sent to [facility] and await response. Next choice of [facility] requesting updated clinicals faxed to [phone] and SW will send. * Ozzie Fernandez MD - 02/26/2025 8:34 AM EDT Images from the original note were not included. [facility] Progress Note: [facility] Steve King LOS: 6 days Problems List Active Hospital Problems Diagnosis Right hip pain MSSA (methicillin susceptible Staphylococcus aureus) infection Conjunctival hyperemia of right eye NIGHAT (obstructive sleep apnea) Dyslipidemia Major neurocognitive disorder (HCC) Mood disorder Type 2 diabetes mellitus with diabetic polyneuropathy, without long-term current use of insulin (HCC) Environmental allergies Hyperkalemia Rash Dysphagia 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) Paroxysmal A-fib (HCC) BPH (benign prostatic hyperplasia) Resolved Hospital Problems No resolved problems to display. Assessment and Plan Reason for Adm: Steve King is a(n)89 y.o. male admitted for work-up and treatment for Right hip pain [M25.551]. Admitted on 02/16/2025: with: Right hip pain. Found to have right hip effusion. History of MEKA. Ortho and IR consulted for aspiration. MRI showing possible abscess. IR aspiration cultures positive for Staph aureus MSSA. Patient underwent washout yesterday. Currently working with PT. Antibiotics managed per ID. PICC line was order considering culture to 48 hours negative, Hypotensive Blood pressure in the 81/67 Check CRP and procalcitonin lactic acid, no sign of sepsis Held his Lasix for blood pressure less than 100 Slightly dehydrated BUN slightly elevated 24 Will start on IV fluid normal saline 1 L Right hip prosthetic joint infection Presented with right hip pain Orthopedic consulted ID consulted infected MEKA? PRN pain control; IR consulted for aspration MRI R hip showed findings concerning for a right hip abscess Was Started on antibiotics IV vancomycin and Zosyn. Ortho recommend outpatient follow-up post aspiration 02/19 patient underwent IR US guided aspiration; Culture grew MSSA. 02/23 blood culture no growth 48HR, PICC per ID discussed with ID on 02/22/2025 he underwent for right hip arthrotomy with extensive debridement head and liner exchange for infection. Broad antibiotic switched to cefazolin per ID Paroxysmal A-fib (HCC) Rate controlled 02/23 [facility] meds On Eliquis per ortho decreased to 2.5 NIGHAT (obstructive sleep apnea) CPAP at night RT Dyslipidemia [facility] Lipitor Major neurocognitive disorder (HCC) Seems at baseline 02/23 AAO, ?dementia; ?able to joint care of self? 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 Start insulin basal bolus Lantus increased to 10 twice daily, HD SSI, POCT BG ACHS Environmental allergies Continue Flonase Hyperkalemia Resolved Rash monitor for now Dysphagia Speech eval, recs reviewed 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) compensated [facility] lasix BPH (benign prostatic hyperplasia) [facility] flomax Conjunctival hyperemia of right eye Patient had scratched his right eye Started ophthalmic ointment Advised to use eye patch complaining of photophobia, slight improvement PT recom SNF DC planning in process, per ID recommendation GI Prophylaxis: proton pump inhibitor per orders VTE Prophylaxis: Qualifying Pharmacologic Prophylaxis apixaban (ELIQUIS) tablet 2.5 mg 2 TIMES DAILY apixaban (ELIQUIS) 5 mg Oral Tablet 2 TIMES DAILY Medically ready for discharge?: No Anticipated ready for discharge timeframe?: In 1 to 2 days pending PICC line placement and custodial placement for physical therapy and to complete IV antibiotic and wound care Subjective: Patient sitting in the chair look comfortable. His right eye feels much better and less photosensitivity or pain. Less pain in his right hip. Wound VAC in place, plan for PICC line Discussed with staff--bedside rounds with RN, care conference with charge nurse, care coordination/social service and/or pharmacist. ROS: As previously noted. Otherwise no changes except as stated above. Medications reviewed: apixaban 2.5 mg Oral BID atorvastatin 40 mg Oral Daily bacitracin-polymyxin b Right Eye TID bisacodyL 10 mg Oral BID Or bisacodyL 10 mg Rectal BID calcium carbonate-vitamin D 1 Tablet Oral Daily WM ceFAZolin 2 g Intravenous 3 times per day docusate sodium 100 mg Oral BID donepeziL 5 mg Oral Nightly DULoxetine 60 mg Oral Daily fUROsemide 20 mg Oral Daily insulin aspart U-100 1-15 Units Subcutaneous QID WM insulin glargine 10 Units Subcutaneous BID (Insulin) magnesium hydroxide 30 mL Oral Daily metFORMIN 500 mg Oral BID mupirocin Nasal 2 times per day polyethylene glycol 17 g Oral Daily senna 17.2 mg Oral BID tamsulosin 0.8 mg Oral Daily acetaminophen, aluminum & magnesium hydroxide-simethicone, dextrose, fluticasone propionate, glucagon AND sterile water, melatonin, oxyCODONE, polyvinyl alcohol, sodium chloride 0.9% Objective: Vitals: 02/25/25 0810 02/25/25 1456 02/25/25 2136 02/26/25 0616 BP: 100/56 106/65 96/60 95/65 BP Location: Left arm Right arm Left arm Left arm Patient Position: Sitting Sitting Semi Fowlers Pulse: 76 81 76 Resp: 16 18 18 Temp: 98.8 ??F (37.1 ??C) 98.4 ??F (36.9 ??C) 98.2 ??F (36.8 ??C) TempSrc: Oral Oral Oral SpO2: 92% 95% 96% Weight: Height: Weight: 251 lb 12.3 oz (114.2 kg) Intake/Output Summary (Last 24 hours) at 02/26/2025 0834 Last data filed at 02/26/2025 0557 Gross per 24 hour Intake -- Output 3950 ml Net -3950 ml Physical Exam: Appropriate PPE was donned during this visit Constitutional: Alert and oriented to person, place, and time. No distress. Much less congestion ofhis right conjunctiva obese Cardiovascular: Normal rate and regular rhythm. Exam reveals no friction rub. No murmur heard. Pulmonary/Chest: Effort normal and breath sounds normal. No respiratory distress. There are no wheezes. Abdominal: Soft. Bowel sounds are normal. No distension. There is no tenderness. There is no rebound and no guarding. Musculoskeletal: No edema. Wound VAC right hip area Neurological: Grossly weak Skin: Skin is warm and dry. No erythema. Data reviewed: I reviewed all labs, imaging studies and current inpatient medications as of this date Labs: Laboratory data and diagnostic testing reviewed. Recent Labs 02/19/25 0901 02/20/25 0624 02/20/25 0624 02/21/25 0602 02/23/25 0540 02/23/25 1455 02/23/25 1606 02/24/25 0513 02/25/25 0604 WBC -- 8.5 -- 5.6 -- -- 9.2 -- -- HGB -- 11.0* < > 11.1* 10.0* -- 9.9* 9.6* 9.8* HCT -- 33.2* < > 33.8* 31.0* -- 30.3* 29.7* 29.8* MCV -- 94.3 -- 94.7 -- -- 96.2 -- -- PLT -- 217 -- 209 -- -- 241 -- -- NA -- 133* < > 134* 133* -- -- 134* 133* K -- 4.2 < > 4.2 4.8 -- -- 4.2 4.5 CL -- 99 < > 100 99 -- -- 100 98 CO2 -- 24 < > 23 24 -- -- 23 25 BUN -- 29* < > 25* 20 -- -- 24* 21 PROT -- -- -- -- -- 5.8* -- -- -- ALT -- -- -- -- -- 14 -- -- -- AST -- -- -- -- -- 14 -- -- -- ALKPHOS -- -- -- -- -- 99 -- -- -- LABBILI -- -- -- -- -- <0.2* -- -- -- BILIDIR -- -- -- -- -- <0.2 -- -- -- INR 1.14 -- -- -- -- -- -- -- -- < > = values in this interval not displayed. No results found. Glucose Lvl Date Value Ref Range Status 02/25/2025 191 (H) 70 - 99 mg/dL Final FSBS:No data found. This note was completed using voice recognition technology. Despite the securities underwriter's best efforts to proof read, it may still contain unintended errors. Please call with questions. * Tawny Bal PTA - 02/25/2025 2:57 PM EDT 02/25/25 1451 PT Subjective Note Type Treatment/Progress Patient Room/Unit 370 PT Subjective Comments #1 Pt agreeable to therapy, states that his R eye has been hurting him. Uponassessment of R eye it presented as inflammed and irritated. Nurisng present and aware Discharge Information This progress note will serve as the discharge summary if no further therapy is provided prior to the patient being discharged from the hospital. Pain Screening PT/OT Patient Currently in Pain Yes Pain Rating Patient unable to rate pain Pain Location Hip Pain Orientation Right Pain Intervention(s) Repositioned;Ambulation/Increased activity;Emotional support Cognition Orientation Intact Arousal Normal Safety Awareness Impaired Safety Awareness Impairment Minimal Impairments: Needs up to 25% input/direction from therapist in order to identify safety issues and maintain safety. Affect/Ability to cope Normal Command Following Impaired Command following impairment Minimal Impairments: Needs up to 25% input/direction from therapist inorder to follow single step commands. Memory Impaired Memory impairment Decreased recall of prior level of function Communication Impaired Hearing EMMONAK, Left ear best/ Right ear deaf Vision R eye infection Additional comments EMMONAK; limited exam due to hyperfixation on BM at this time Precautions Therapy Precautions Yes Total Hip Replacement Posterior hip precautions Weight Bearing Status Weight bearing as tolerated Precaution Info Given To use call light to request assistance with all mobility Other precautions abduction Observation Presentation Patient seated in chair Observation Bed alarm;IV;External urinary catheter Vitals VSS Bed Mobility Additional Comments UIC Transfers Sit to Stand Minimal assistance Stand to Sit Contact guard assistance Bed to/from chair Contact guard assist Gait Gait Contact guard assist Gait Distance (Feet) 30 Feet Assistive Device 2 Wheel walker Pattern Antalgic;Slow rick;Step to;Shuffle;Flexed posture Weight Bearing Status Weight bearing as tolerated Vitals VSS Functional Status Score (FSS-ICU) Is the patient currently in ICU? No PT/OT Mobility Documentation PT/OT Mobility Score 6 AM PAC: How much help from another person does the patient currently need... turning from your back to your side while in a flat bed without using bedrails? 3 moving from lying on your back to sitting on the side of a flat bed without using bedrails? 3 moving to and from a bed to a chair? 3 standing up from a chair using your arms (e.g. wheelchair, or bedside chair)? 3 need to walk in hospital room? 3 climbing 3-5 steps with a railing? 2 AM PAC: BASIC MOBILITY SCORING AM PAC Moblity Raw Score 17 AM PAC Mobility CMS 0-100% Functional Percentage 43.83 AM PAC Mobility CMS G Code Modifier CK Balance Sitting Balance 4/5 moves/returns trunkal midpoint 1-2 inches in multiple planes Standing Balance 2/5 indep, requires both UE support Exercise Exercise No Education Education To use call light to request assistance with all mobility;Patient/Family Education;Role of Therapy;Safety with mobility;Cues for proper technique;Discharge planning;Up with assistance only;Safe and proper technique with transfers;Safe and proper technique with gait pattern;Educated on benefits of mobility, upright positioning, and getting out of bed Patient Safety Patient Safety Patient left in chair with needs in reach;Chair/personal alarm activated Continuous Passive Motion CPM No Assessment Assessment Decreased gait;Decreased functional mobility;Decreased balance;Decreased ADL status;Decreased activity tolerance ;Decreased endurance;Decreased self-care transfers;Decreased high-level ADLs;Decreased coordination Prognosis Good;With continued PT s/p acute discharge Progress Progressing toward goals Rationale for Skilled Therapy Fall Risk;Balance Deficits;Not safe with independent transfers;Not safe ambulating independently;Requires multi- disciplinary team;Able to make measurable improvements;Decreased endurance and tolerance to activity Plan Treatment/Interventions Continue with current plan of care PT Frequency Daily Recommendation PT Recommendation Moderate frequency, moderate intensity five days a week therapy recommended. Time In / Time Out 1403/1420 IP PT Treatment Minutes 23 (Time added for AM chart review) The total time spent caring for this patient included but was not limited to medical record review;hands-on treatment;communication and education with patient and/or family/caregiver;assessment of the patient's progress since the last session;clinical judgement necessary for treatment planning for next session * Iesha Grant BSW - 02/25/2025 1:57 PM EDT 02/25/25 5296 Ongoing Discharge Planning Evaluation Actual Discharge Plan 02/25 SW: Spoke with Fabricio [phone] with [facility] level of care to advise of expected discharge date. Also faxed clinicals. Fabricio lemos bed availability. Will need insurance [employer]. SW continue to follow. * Ozzie Fernandez MD - 02/25/2025 8:13 AM EDT Images from the original note were not included. [facility] Progress Note: [facility] Steve King LOS: 5 days Problems List Active Hospital Problems Diagnosis Right hip pain MSSA (methicillin susceptible Staphylococcus aureus) infection Conjunctival hyperemia of right eye NIGHAT (obstructive sleep apnea) Dyslipidemia Major neurocognitive disorder (HCC) Mood disorder Type 2 diabetes mellitus with diabetic polyneuropathy, without long-term current use of insulin (HCC) Environmental allergies Hyperkalemia Rash Dysphagia 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) Paroxysmal A-fib (HCC) BPH (benign prostatic hyperplasia) Resolved Hospital Problems No resolved problems to display. Assessment and Plan Reason for Adm: Steve King is a(n)89 y.o. male admitted for work-up and treatment for Right hip pain [M25.551]. . Admitted on 02/16/2025: with: Right hip pain. Found to have right hip effusion. History of MEKA. Ortho and IR consulted for aspiration. MRI showing possible abscess. IR aspiration cultures positive for Staph aureus MSSA. Patient underwent washout yesterday. Currently working with PT. Antibiotics managed per ID. Right hip prosthetic joint infection Presented with right hip pain Orthopedic consulted ID consulted infected MEKA? PRN pain control; IR consulted for aspration MRI R hip showed findings concerning for a right hip abscess Was Started on antibiotics IV vancomycin and Zosyn. Ortho recommend outpatient follow-up post aspiration 02/19 patient underwent IR US guided aspiration; Culture grew MSSA. 02/23 blood culture no growth 24 HR on 02/22/2025 he underwent for right hip arthrotomy with extensive debridement head and liner exchange for infection. Broad antibiotic switched to cefazolin per ID Paroxysmal A-fib (HCC) Rate controlled 02/23 [facility] meds On Eliquis per ortho decreased to 2.5 NIGHAT (obstructive sleep apnea) CPAP at night RT Dyslipidemia [facility] Lipitor Major neurocognitive disorder (HCC) Seems at baseline 02/23 AAO, ?dementia; ?able to joint care of self? 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 Start insulin basal bolus Lantus increased to 10 twice daily, HD SSI, POCT BG ACHS Environmental allergies Continue Flonase Hyperkalemia Resolved Rash monitor for now Dysphagia Speech eval, recs reviewed 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) compensated [facility]ERY [facility]TELL[facility] lasix BPH (benign prostatic hyperplasia) [facility]TELL[facility] flomax Conjunctival hyperemia of right eye Patient had scratched his right eye Started ophthalmic ointment Advised to use eye patch complaining of photophobia, slight improvement PT recom SNF DC planning in process, per ID recommendation GI Prophylaxis: none needed VTE Prophylaxis: Qualifying Pharmacologic Prophylaxis apixaban (ELIQUIS) tablet 2.5 mg 2 TIMES DAILY apixaban (ELIQUIS) 5 mg Oral Tablet 2 TIMES DAILY Medically ready for discharge?: No Anticipated ready for discharge timeframe?: 3 days pending planning Ready for discharge when / if?: In 1 to 2 days pending IV antibiotic planning and DC planning for rehab Subjective: Patient stated that he is still having some hot flashes, denied fever he feel his right eye improved but still complaining of photophobia. Explained to the patient need to use his eye patch to avoid this photosensitivity Discussed with staff--bedside rounds with RN, care conference with charge nurse, care coordination/social service and/or pharmacist. ROS: As previously noted. Otherwise no changes except as stated above. Medications reviewed: apixaban 2.5 mg Oral BID atorvastatin 40 mg Oral Daily bacitracin-polymyxin b Right Eye TID bisacodyL 10 mg Oral BID Or bisacodyL 10 mg Rectal BID calcium carbonate-vitamin D 1 Tablet Oral Daily WM ceFAZolin 2 g Intravenous 3 times per day docusate sodium 100 mg Oral BID donepeziL 5 mg Oral Nightly DULoxetine 60 mg Oral Daily fUROsemide 20 mg Oral Daily insulin aspart U-100 1-15 Units Subcutaneous QID WM insulin glargine 10 Units Subcutaneous BID (Insulin) magnesium hydroxide 30 mL Oral Daily mupirocin Nasal 2 times per day polyethylene glycol 17 g Oral Daily senna 17.2 mg Oral BID tamsulosin 0.8 mg Oral Daily acetaminophen, aluminum & magnesium hydroxide-simethicone, dextrose, fluticasone propionate, glucagon AND sterile water, oxyCODONE, polyvinyl alcohol, sodium chloride 0.9% Objective: Vitals: 02/24/255 02/25/25 0540 02/25/25 0729 02/25/25 0810 BP: 97/63 90/42 (!) 78/52 100/56 BP Location: Left arm Left arm Left arm Left arm Patient Position: Semi Fowlers Semi Fowlers Semi Fowlers Pulse: 82 84 75 Resp: 16 18 16 Temp: 98.1 ??F (36.7 ??C) 98.5 ??F (36.9 ??C) 98.8 ??F (37.1 ??C) TempSrc: Oral Oral Oral SpO2: 98% 91% 90% Weight: Height: Weight: 251 lb 12.3 oz (114.2 kg) Intake/Output Summary (Last 24 hours) at 02/25/2025 0813 Last data filed at 02/24/2025 1940 Gross per 24 hour Intake 140.57 ml Output 200 ml Net -59.43 ml Physical Exam: Appropriate PPE was donned during this visit Constitutional: Alert and oriented to person, place, and time. No distress. Obese, right conjunctiva redness decreased compared to yesterday Cardiovascular: Normal rate and regular rhythm. Exam reveals no friction rub. No murmur heard. Pulmonary/Chest: Effort normal and breath sounds normal. No respiratory distress. There are no wheezes. Abdominal: Soft. Bowel sounds are normal. No distension. There is no tenderness. There is no rebound and no guarding. Musculoskeletal: No edema. Neurological: Grossly weak Skin: Skin is warm and dry. No erythema. Data reviewed: I reviewed all labs, imaging studies and current inpatient medications as of this date Labs: Laboratory data and diagnostic testing reviewed. Recent Labs 02/19/25 0901 02/20/25 0624 02/21/25 0602 02/23/25 0540 02/23/25 1455 02/23/25 1606 02/24/25 0513 02/25/25 0604 WBC -- 8.5 5.6 -- -- 9.2 -- -- HGB -- 11.0* 11.1* 10.0* -- 9.9* 9.6* 9.8* HCT -- 33.2* 33.8* 31.0* -- 30.3* 29.7* 29.8* MCV -- 94.3 94.7 -- -- 96.2 -- -- PLT -- 217 209 -- -- 241 -- -- NA -- 133* 134* 133* -- -- 134* 133* K -- 4.2 4.2 4.8 -- -- 4.2 4.5 CL -- 99 100 99 -- -- 100 98 CO2 -- 24 23 24 -- -- 23 25 BUN -- 29* 25* 20 -- -- 24* 21 PROT -- -- -- -- 5.8* -- -- -- ALT -- -- -- -- 14 -- -- -- AST -- -- -- -- 14 -- -- -- ALKPHOS -- -- -- -- 99 -- -- -- LABBILI -- -- -- -- <0.2* -- -- -- BILIDIR -- -- -- -- <0.2 -- -- -- INR 1.14 -- -- -- -- -- -- -- No results found. Glucose Lvl Date Value Ref Range Status 02/25/2025 191 (H) 70 - 99 mg/dL Final FSBS:No data found. This note was completed using voice recognition technology. Despite the securities underwriter's best efforts to proof read, it may still contain unintended errors. Please call with questions. * Marcela Reyes, PT - 02/24/2025 2:34 PM EDT 02/24/25 1426 PT Subjective Note Type Reassessment/Re-Evaluation;Treatment/Progress Patient Room/Unit 370 PT Subjective Comments #1 Pleasant, agreeable to therapy. Discharge Information This progress note will serve as the discharge summary if no further therapy is provided prior to the patient being discharged from the hospital. Clinical Course 02/22: Right hip Incision & Drainage with head/liner exchange (Naa) Pain Screening PT/OT Patient Currently in Pain Yes Pain Rating Patient unable to rate pain Pain Intervention(s) Repositioned;Emotional support Additional Comments Says he is thrilled with how great his hip is feeling. Says his headache and R eye pain are the worst, although R eye is improving. Left pt in dark room with eye patch per his request Cognition Orientation Intact Arousal Normal Safety Awareness Impaired Safety Awareness Impairment Minimal Impairments: Needs up to 25% input/direction from therapist in order to identify safety issues and maintain safety. Affect/Ability to cope Normal Command Following Impaired Command following impairment Minimal Impairments: Needs up to 25% input/direction from therapist inorder to follow single step commands.;Minimal Impairments: Needs up to 25% input/direction from therapist in order to follow multi-step commands. Memory Impaired Memory impairment Decreased recall of precautions Communication Impaired Hearing EMMONAK, Left ear best/ Right ear deaf Vision Right eye with eye infection which is painful but improving per patient Precautions Therapy Precautions Yes Total Hip Replacement Posterior hip precautions (strict) Weight Bearing Status Weight bearing as tolerated;Right lower extremity Precaution Info Given To use call light to request assistance with all mobility;Weight bearing Other precautions abduction pillow Coord/Sensation Assessed Grossly Intact/Normal Perception Perception Grossly intact/normal Observation Presentation Patient resting in bed Observation Bed alarm;IV Vitals no evidence of vital distress Bed Mobility Supine to Sit Stand by assist Transfers Sit to Stand Contact guard assist;With raised bed height Stand to Sit Contact guard assistance Additional Comments cues for transfers in B directions for keeping RLE extended at knee/more anteriorly placed in order to abide by posterior hip precautions. Significant emphasis on posterior hip precautions with all mobility. Gait Gait Contact guard assist Gait Distance (Feet) 5 Feet Assistive Device 2 Wheel walker Pattern Slow rick;Decreased stance time R Weight Bearing Status Weight bearing as tolerated Additional Comments Max tolerance at this time, resting comfortably in chair upon PT exit Vitals no evidence of vital distress Functional Status Score (FSS-ICU) Is the patient currently in ICU? No PT/OT Mobility Documentation PT/OT Mobility Score 6 AM PAC: How much help from another person does the patient currently need... turning from your back to your side while in a flat bed without using bedrails? 3 moving from lying on your back to sitting on the side of a flat bed without using bedrails? 3 moving to and from a bed to a chair? 3 standing up from a chair using your arms (e.g. wheelchair, or bedside chair)? 3 need to walk in hospital room? 3 climbing 3-5 steps with a railing? 2 AM PAC: BASIC MOBILITY SCORING AM PAC Moblity Raw Score 17 AM PAC Mobility CMS 0-100% Functional Percentage 43.83 AM PAC Mobility CMS G Code Modifier CK Balance Sitting Balance 4/5 moves/returns trunkal midpoint 1-2 inches in multiple planes Standing Balance 2/5 indep, requires both UE support Exercise Exercise Yes Additional Comments unable to tolerate seated therex this date, but likely able to advance to next session Supine Supine Ankle Pumps x10 reps BLE Supine Quad Sets x10 reps BLE Education Education To use call light to request assistance with all mobility;Patient/Family Education;Role of Therapy;Safety with mobility;Cues for proper technique;Discharge planning;Up with assistance only;Precautions;Safe and proper posture/positioning;Safe and proper technique with transfers;Safe and proper technique with gait pattern;Educated on benefits of mobility, upright positioning, and getting out of bed;Proper use of ice;Elevation of extremity Patient Safety Patient Safety Patient left in chair with needs in reach;Nursing notified of status;Chair/personal alarm activated (abduction pillow placed in bed) Assessment Assessment Decreased gait;Decreased balance;Decreased functional mobility;Decreased ADL status;Decreased RightLower Extremity strength;Decreased Left Lower Extremity strength;Decreased activity tolerance ;Decreased endurance Prognosis Good;With continued PT s/p acute discharge Progress Progressing toward goals Rationale for Skilled Therapy Fall Risk;Balance Deficits;Not safe with independent transfers;Not safe ambulating independently Goals Patient and/or Family Goal to get better PT GOALS (Yes/No) Yes Add Goals Will Perform Supine To Sit Independently;To improve functional mobility Will Perform Sit to Stand With least restrictive assistive device;Modified independent;To improve functional mobility;Not met Will Ambulate With least restrictive assistive device;101-150 feet;With 2 wheel walker;With stand by assist;To improve functional mobility;Not met Other Goal Patient will be able to independently state posterior hip precautions in order to improve adherence/safety post-op. Goal Formulation With patient Time for Goal Achievement/Duration of Treatment 14 more days Plan Treatment/Interventions Neuromuscular re-education;Gait training;Bed mobility;ADL retraining;Balance training;Functional transfer training;LE strengthening/ROM;Increase activity tolerance ;Patient/Family training;Endurance training PT Frequency Daily Recommendation PT Recommendation Moderate frequency, moderate intensity five days a week therapy recommended. Time In / Time Out 1347/1404 IP PT Treatment Minutes 17 * Ozzie Fernandez MD - 02/24/2025 7:27 AM EDT Images from the original note were not included. [facility] Progress Note: [facility] Steve King LOS: 4 days Problems List Active Hospital Problems Diagnosis Right hip pain MSSA (methicillin susceptible Staphylococcus aureus) infection Conjunctival hyperemia of right eye NIGHAT (obstructive sleep apnea) Dyslipidemia Major neurocognitive disorder (HCC) Mood disorder Type 2 diabetes mellitus with diabetic polyneuropathy, without long-term current use of insulin (HCC) Environmental allergies Hyperkalemia Rash Dysphagia 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) Paroxysmal A-fib (HCC) BPH (benign prostatic hyperplasia) Resolved Hospital Problems No resolved problems to display. Assessment and Plan Reason for Adm: Steve King is a(n)89 y.o. male admitted for work-up and treatment for Right hip pain [M25.551]. Admitted on 02/16/2025: with: Right hip pain. Found to have right hip effusion. History of MEKA. Ortho and IR consulted for aspiration. MRI showing possible abscess. IR aspiration cultures positive for Staph aureus MSSA. Patient underwent washout yesterday. Currently working with PT. Antibiotics managed per ID. Right hip prosthetic joint infection Presented with right hip pain Orthopedic consulted ID consulted Broad antibiotic switched to cefazolin per ID ?infected MEKA? PRN pain control; IR consulted for aspration MRI R hip showed findings concerning for a right hip abscess Was Started on antibiotics IV vancomycin and Zosyn. Ortho recommend outpatient follow-up post aspiration 02/19 patient underwent IR US guided aspiration; Culture grew MSSA. 02/21 continue antibiotics. Noted plan per Ortho for possible washout on 02/22/2025 he underwent for right hip arthrotomy with extensive debridement head and liner exchange for infection. I to cefazolin Paroxysmal A-fib (HCC) Rate controlled 02/23 [facility] meds On Eliquis per ortho NIGHAT (obstructive sleep apnea) CPAP at night RT Dyslipidemia [facility] Lipitor Major neurocognitive disorder (HCC) Seems at baseline 02/23 AAO, ?dementia; ?able to joint care of self? 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 Start insulin basal bolus Lantus increased to 10 twice daily, HD SSI, POCT BG ACHS Environmental allergies Continue Flonase Hyperkalemia Resolved Rash monitor for now Dysphagia Speech eval, recs reviewed 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) ([facility]) compensated [facility] lasix BPH (benign prostatic hyperplasia) [facility] flomax Conjunctival hyperemia of right eye Patient had scratched his right eye Started ophthalmic ointment GI Prophylaxis: none needed VTE Prophylaxis: Qualifying Pharmacologic Prophylaxis apixaban (ELIQUIS) tablet 2.5 mg 2 TIMES DAILY apixaban (ELIQUIS) 5 mg Oral Tablet 2 TIMES DAILY Medically ready for discharge?: No Anticipated ready for discharge timeframe?: Into 3 days pending plan Per infectious disease continue IV antibiotic Subjective: Patient complaining of rt eye redness not improving. Pain started eye ointment. Patient have no fever or chills. Feeling weak and tired. Complaining of right hip pain. Discussed with staff--bedside rounds with RN, care conference with charge nurse, care coordination/social service and/or pharmacist. ROS: As previously noted. Otherwise no changes except as stated above. Medications reviewed: apixaban 2.5 mg Oral BID atorvastatin 40 mg Oral Daily bacitracin-polymyxin b Right Eye BID bisacodyL 10 mg Oral BID Or bisacodyL 10 mg Rectal BID calcium carbonate-vitamin D 1 Tablet Oral Daily WM ceFAZolin 2 g Intravenous 3 times per day docusate sodium 100 mg Oral BID donepeziL 5 mg Oral Nightly DULoxetine 60 mg Oral Daily fUROsemide 20 mg Oral Daily insulin aspart U-100 1-15 Units Subcutaneous QID WM insulin glargine 10 Units Subcutaneous BID (Insulin) magnesium hydroxide 30 mL Oral Daily mupirocin Nasal 2 times per day polyethylene glycol 17 g Oral Daily senna 17.2 mg Oral BID senna 2 Tablet Oral Nightly tamsulosin 0.8 mg Oral Daily acetaminophen, aluminum & magnesium hydroxide-simethicone, dextrose, fluticasone propionate, glucagon AND sterile water, oxyCODONE, polyvinyl alcohol, sodium chloride 0.9% Objective: Vitals: 02/23/25 0805 02/23/25 1423 02/23/25 2105 02/24/25 0146 BP: 102/68 93/59 105/70 98/68 BP Location: Left arm Left arm Left arm Left arm Patient Position: Semi Fowlers Sitting Semi Fowlers Semi Fowlers Pulse: 66 68 82 85 Resp: 16 16 14 16 Temp: 97.9 ??F (36.6 ??C) 97.9 ??F (36.6 ??C) 97.7 ??F (36.5 ??C) 97.9 ??F (36.6 ??C) TempSrc: Oral Oral Oral Oral SpO2: 94% 94% 95% 93% Weight: Height: Weight: 251 lb 12.3 oz (114.2 kg) Intake/Output Summary (Last 24 hours) at 02/24/2025 07 Last data filed at 02/24/2025 0655 Gross per 24 hour Intake 684.8 ml Output 1000 ml Net -315.2 ml Physical Exam: Appropriate PPE was donned during this visit Constitutional: Alert and oriented to person, place, and time. No distress. Cardiovascular: Normal rate and regular rhythm. Exam reveals no friction rub. No murmur heard. Pulmonary/Chest: Effort normal and breath sounds normal. No respiratory distress. There are no wheezes. Abdominal: Soft. Bowel sounds are normal. No distension. There is no tenderness. There is no rebound and no guarding. Musculoskeletal: No edema. Rt Hip dressing in place, wearing the support Neurological: Grossly weak, Skin: Skin is warm and dry. No erythema. Data reviewed: I reviewed all labs, imaging studies and current inpatient medications as of this date Labs: Laboratory data and diagnostic testing reviewed. Recent Labs 02/19/25 0901 02/20/25 0624 02/21/25 0602 02/23/25 0540 02/23/25 1455 02/23/25 1606 02/24/25 0513 WBC -- 8.5 5.6 -- -- 9.2 -- HGB -- 11.0* 11.1* 10.0* -- 9.9* 9.6* HCT -- 33.2* 33.8* 31.0* -- 30.3* 29.7* MCV -- 94.3 94.7 -- -- 96.2 -- PLT -- 217 209 -- -- 241 -- NA -- 133* 134* 133* -- -- 134* K -- 4.2 4.2 4.8 -- -- 4.2 CL -- 99 100 99 -- -- 100 CO2 -- 24 23 24 -- -- 23 BUN -- 29* 25* 20 -- -- 24* PROT -- -- -- -- 5.8* -- -- ALT -- -- -- -- 14 -- -- AST -- -- -- -- 14 -- -- ALKPHOS -- -- -- -- 99 -- -- LABBILI -- -- -- -- <0.2* -- -- BILIDIR -- -- -- -- <0.2 -- -- INR 1.14 -- -- -- -- -- -- No results found. Glucose Lvl Date Value Ref Range Status 02/24/2025 222 (H) 70 - 99 mg/dL Final FSBS:No data found. This note was completed using voice recognition technology. Despite the securities underwriter's best efforts to proof read, it may still contain unintended errors. Please call with questions. * Berenice Dallas DO - 02/23/2025 8:28 PM EDTAssociated Problem(s): 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 PRN pain control; Hold eliquis until aspiration hold Abx until aspiration to be resumed tomorrow a.m. 02/20 Ortho consult; discussed with Dr. Jacome IR consulted for aspration Mri R hip ordered : Noted readings 1. 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 There is a large periarticular fluid collection closely associated with the posterior aspect of the joint capsule, extending into the trochanteric bursal region with extension towards the skin surface over the lateral trochanteric level. This collection demonstrates peripheral enhancement, worrisome for abscess. Started on antibiotics IV vancomycin and Zosyn. Monitor renal function, stable 02/21 Monitor Vanco trough. Vancomycin to be dosed by pharmacy Ortho recommend outpatient follow-up post aspiration 02/19 patient underwent IR US guided aspiration; labs sent for cultures 02/20 Difficult iv access. 02/21 continue antibiotics. Noted plan per Ortho for possible washout 02/22 R hip washout today 02/23 cultures from aspiration 02/19 positive for Staph aureus. ID consulted. Antibiotics switched to cefazolin * Berenice Dallas DO - 02/23/2025 8:28 PM EDTAssociated Problem(s): Paroxysmal A-fib (HCC) Rate controlled 02/23 [facility] meds Hold Eliquis until ortho interventions * Berenice Dallas DO - 02/23/2025 8:28 PM EDTAssociated Problem(s): Major neurocognitive disorder (HCC) Seems at baseline 02/23 AAO, ?dementia; ?able to take care of self? [facility]TELLIGENCE Donepazil * Berenice Dallas DO - 02/23/2025 8:28 PM EDTAssociated Problem(s): Type 2 diabetes mellitus with diabetic polyneuropathy, without long-term curr ent use of insulin (HCC) Uncontrolled BG in goal 140-180 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 held Start insulin basal bolus Lantus increased to 10 twice daily, HD SSI, POCT BG ACHS * Berenice Dallas DO - 02/23/2025 8:28 PM EDTAssociated Problem(s): MSSA (methicillin susceptible Staphylococcus aureus) infection ID consult Broad antibiotic switched to cefazolin per ID * Berenice Dallas DO - 02/23/2025 8:28 PM EDTAssociated Problem(s): Conjunctival hyperemia of right eye Patient had scratched his right eye Started ophthalmic ointment * Iesha Grant BSW - 02/23/2025 2:57 PM EDT 02/23/25 1456 Ongoing Discharge Planning Evaluation Actual Discharge Plan 02/23 SW: Spoke with Fabricio [phone] with [facility] level of care and sent updated clinicals. Will need to advise facility when pt nearing discharge so PRECERT can be started. SW continue to follow. * Reji Huynh PharmD - 02/23/2025 2:03 PM EDT Pharmacy Consult: Vancomycin Vancomycin has been discontinued. Pharmacy will sign off at this time and follow peripherally. Please consult pharmacy if this agent is restarted and/or additional services are needed. Thanks, Mesfin Huynh, ErlinD, BCPS * Marcela Reyes, PT - 02/23/2025 1:07 PM EDT 02/23/25 1221 PT Subjective Note Type Follow Up Treatment Attempt Patient Room/Unit 370 PT Subjective Comments #1 Patient up in chair eating Therapy delay reason Patient eating * Sabine Aj OT - 02/23/2025 12:15 PM EDT 02/23/25 1204 OT Subjective Note Type Chart Review;Evaluation Patient Room/Unit 370 OT Subjective Comments #1 Patient in bed, agreeable Discharge Information Evaluation to serve as discharge summary if no further treatment provided before the facility discharge Admitting Diagnosis Right hip pain s/p Right hip I&D with head liner exchange/ wound vac 02/22 WBAT/ posterior approach Past Med Hx none on file Precautions Therapy Precautions Yes Total Hip Replacement Posterior hip precautions (abd pillow) Weight Bearing Status Right lower extremity;Weight bearing as tolerated Precaution Info Given Yes;Weight bearing;To use call light to request assistance with all mobility Home Living/Prior Function Type of Home House Home Layout One level;Ramped entrance Home Equipment 2 wheeled walker;4 wheeled walker Level of Assistance Independent with ADLs ;Independent with functional transfers;Independent with homemaking;Ambulatory in home Lives With Alone Fall History No falls in the last three months ADL Assistance Independent Homemaking Assistance Independent Cognition Orientation Intact Arousal Normal Safety Awareness Impaired Safety Awareness Impairment Minimal Impairments: Needs up to 25% input/direction from therapist in order to identify safety issues and maintain safety. Affect/Ability to cope Normal Command Following Impaired Command following impairment Minimal Impairments: Needs up to 25% input/direction from therapist inorder to follow single step commands. Memory Impaired Memory impairment Decreased recall of precautions (continue to educate) Communication Impaired Hearing EMMONAK, Left ear best/ Right ear deaf Vision Right eye with eye infection Pain Screening PT/OT Patient Currently in Pain Yes Pain Rating 4 Pain Location Hip Pain Orientation Right Pain Intervention(s) Repositioned Observation Presentation Patient resting in bed Posture tall, elderly male Observation IV;Bed alarm Vitals no s/s of vital distress UE Assessment LUE Assessment WFL RUE Assessment WFL Hand Function Gross Grasp Functional Coordination Functional Coal Washer Tender Strength WFL Coord/Sensation Assessed Grossly Intact/Normal Perception Perception Grossly intact/normal ADL Interventions Where Assessed Edge of bed;Chair Feeding Assistance Set up Toileting Setup;Independent (uses urinal) Bed Mobility Rolling Stand by assist Supine to Sit Stand by assist Transfers Sit to Stand Stand by assist Stand to Sit Stand by assistance Bed to/from chair Contact guard assist;Minimal assistance;Walker Additional Comments Bed elevated to adhere to hip precautions as patient is 6'4 OT Gait Gait Contact guard assist Gait Distance (Feet) 5 Feet Assistive Device 2 Wheel walker Pattern Slow rick Weight Bearing Status Weight bearing as tolerated Balance Sitting Balance 4/5 moves/returns trunkal midpoint 1-2 inches in multiple planes Standing Balance 2/5 indep, requires both UE support PT/OT Mobility Documentation PT/OT Mobility Score 6 Vision OT Vision Comment denied deficits AM PAC: How much help from another person does the patient currently need... putting on and taking off regular lower body clothing? 2 bathing (including washing, rinsing, drying)? 2 toileting, which includes using toilet, bedpan or urinal? 2 putting on and taking off regular upper body clothing? 3 taking care of personal grooming such as brushing teeth? 3 eating meals? 3 AM PAC DAILY ACTIVITY SCORING Daily Activity Raw Score 15 AM PAC Daily Activity CMS 0-100% Functional Percentage 56.46 AM PAC Daily Activity CMS G Code Modifier CK Education Education To use call light to request assistance with all mobility;Patient/Family Education;Role of Therapy;Safety with mobility;Cues for proper technique;Discharge planning;Up with assistance only;Precautions;Safe and proper posture/positioning;Safe and proper technique with transfers;Safe and proper technique with gait pattern;Educated on benefits of mobility, upright positioning, and getting out of bed Patient Safety Patient left in chair with needs in reach;Chair/personal alarm activated Assessment Assessment Decreased ADL status;Decreased UE strength;Decreased Safe judgement during ADL;Decreasedself-care transfers;Decreased high-level ADLs Prognosis Fair;With continued OT s/p acute discharge;24 hour supervision recommended Rationale for Skilled Therapy Fall Risk;Balance Deficits;Not safe with independent transfers;Not safe ambulating independently;Requires physical assistance with ADLs Goals Patient and/or Family Goal go to SNF Goals Yes Goal Formulation With Patient Time for Goal Achievement/Duration of Treatment 3-5 sessions Additional Goals Additional Goals ADLs: CGA UB, Mod a LB with AE to adhere to hip precautions Additionals Goals 2 ADL/functional transfers: SBA Additional Goals 3 Bed mobility: SPV Plan Treatment Interventions ADL retraining;Functional transfer training;UE strengthening/ROM;Patient/Family training;Equipment eval/education;Continued evaluation OT Frequency 2-5x/wk Recommendation OT Recommendation Moderate frequency, moderate intensity five days a week therapy recommended. Time In / Time Out [id number] IP OT Evaluation Minutes 7 IP OT Individual Treatment Minutes 23 The total time spent caring for this patient included but was not limited to medical record review;hands-on treatment;communication and education with patient and/or family/caregiver;clinical judgement necessary for treatment planning for next session;communication with nursing and/or care coordinat ion/social work regarding patient status and discharge planning * Berenice Dallas DO - 02/23/2025 11:03 AM EDTAssociated Problem(s): NIGHAT (obstructive sleep apnea) CPAP at night RT * Berenice Dallas DO - 02/23/2025 11:03 AM EDTAssociated Problem(s): Dyslipidemia [facility] Lipitor * Berenice Dallas DO - 02/23/2025 11:03 AM EDTAssociated Problem(s): Mood disorder [facility] Cymbalta * Berenice Dallas DO - 02/23/2025 11:03 AM EDTAssociated Problem(s): Environmental allergies Continue Flonase * Berenice Dallas DO - 02/23/2025 11:03 AM EDTAssociated Problem(s): Hyperkalemia Resolved * Berenice Dallas DO - 02/23/2025 11:03 AM EDTAssociated Problem(s): Rash monitor for now * Berenice Dallas DO - 02/23/2025 11:03 AM EDTAssociated Problem(s): Dysphagia Speech eval, recs reviewed * Berenice Dallas DO - 02/23/2025 11:03 AM EDTAssociated Problem(s): 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) compensated [facility]LL[facility] lasix * Berenice Dallas DO - 02/23/2025 11:03 AM EDTAssociated Problem(s): BPH (benign prostatic hyperplasia) [facility] flomax * Berenice Dallas DO - 02/23/2025 8:02 AM EDT Images from the original note were not included. PROGRESS NOTE Handoff Completed: Yes Disposition Perspective - Medically ready for discharge: No Anticipated ready for discharge timeframe?: 3 days Ready for discharge when / if?: Clinical improvement and placement Admitted on 02/16/2025: with: Right hip pain. Found to have right hip effusion. History of MEKA. Orthoand IR consulted for aspiration. MRI showing possible abscess. IR aspiration cultures positive for Staph aureus MSSA. Patient underwent washout yesterday. Currently working with PT. Antibiotics managed per ID. Estimated Date of Discharge: 02/26/2025 Assessment/Plan: Assessment & Plan 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 PRN pain control; Hold eliquis until aspiration hold Abx until aspiration to be resumed tomorrow a.m. 02/20 Ortho consult; discussed with Dr. Jacome IR consulted for aspration Mri R hip ordered : Noted readings 1. 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 There is a large periarticular fluid collection closely associated with the posterior aspect of the joint capsule, extending into the trochanteric bursal region with extension towards the skin surface over the lateral trochanteric level. This collection demonstrates peripheral enhancement, worrisome for abscess. Started on antibiotics IV vancomycin and Zosyn. Monitor renal function, stable 02/21 Monitor Vanco trough. Vancomycin to be dosed by pharmacy Ortho recommend outpatient follow-up post aspiration 02/19 patient underwent IR US guided aspiration; labs sent for cultures 02/20 Difficult iv access. 02/21 continue antibiotics. Noted plan per Ortho for possible washout 02/22 R hip washout today 02/23 cultures from aspiration 02/19 positive for Staph aureus. ID consulted. Antibiotics switched to cefazolin Paroxysmal A-fib (HCC) Rate controlled 02/23 [facility]LL[facility] meds Hold Eliquis until ortho interventions NIGHAT (obstructive sleep apnea) CPAP at night RT Dyslipidemia [facility] Lipitor Major neurocognitive disorder (HCC) Seems at baseline 02/23 AAO, ?dementia; ?able to take care of self? [facility]TELLIGENCE Donepazil Mood disorder [facility] Cymbalta Type 2 diabetes mellitus with diabetic polyneuropathy, without long-term current use of insulin (HCC) Uncontrolled BG in goal 140-180 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 held Start insulin basal bolus Lantus increased to 10 twice daily, HD SSI, POCT BG ACHS Environmental allergies Continue Flonase Hyperkalemia Resolved Rash monitor for now Dysphagia Speech eval, recs reviewed 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) compensated [facility]AGERY [facility]TELLIGENCE lasix BPH (benign prostatic hyperplasia) [facility]TE[facility] flomax MSSA (methicillin susceptible Staphylococcus aureus) infection ID consult Broad antibiotic switched to cefazolin per ID Conjunctival hyperemia of right eye Patient had scratched his right eye Started ophthalmic ointment Dispo: Continue current care Most recent EKG, telemetry tracings, Imaging, and labs independently reviewed and interpreted by bruno 02/23/2025 VTE Prophylaxis: Qualifying Pharmacologic Prophylaxis apixaban (ELIQUIS) tablet 2.5 mg 2 TIMES DAILY apixaban (ELIQUIS) 5 mg Oral Tablet 2 TIMES DAILY Active Hospital Problems Diagnosis *Right hip pain MSSA (methicillin susceptible Staphylococcus aureus) infection Conjunctival hyperemia of right eye NIGHAT (obstructive sleep apnea) Dyslipidemia Major neurocognitive disorder (HCC) Mood disorder Type 2 diabetes mellitus with diabetic polyneuropathy, without long-term current use of insulin (HCC) Environmental allergies Hyperkalemia Rash Dysphagia 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) Paroxysmal A-fib (HCC) BPH (benign prostatic hyperplasia) Subjective: Seen and examined in am. Denies fever, chills, SOB, CP, NVDC. Resting in bed, working with PT. Ambulating well reports pain well-controlled Objective: BP 93/59 (BP Location: Left arm, Patient Position: Sitting) Pulse 68 Temp 97.9 ??F (36.6 ??C) (Oral) Resp 16 Ht 6' 4 (1.93 m) Wt 251 lb 12.3 oz (114.2 kg) SpO2 94% BMI 30.65 kg/m?? I/O last 3 completed shifts: In: 1398.4 [P.O.:840; I.V.:50.5; IV Piggyback:507.9] Out: 850 [Urine:850] Weight: 251 lb 12.3 oz (114.2 kg) Constitutional: AAOx3, NAD, resting in bed Cardiovascular: RRR Pulmonary/Chest: CTAB Abdominal: Soft. NT ND Musculoskeletal: No edema. Right hip dressing CDI Neurological: Grossly normal. Skin: Skin is warm and dry. Labs: Laboratory data and diagnostic testing reviewed 02/23/25. Part of this note was dictated using voice recognition technology and may include unintended spelling errors. Berenice Dallas DO 02/23/2025 8:26 PM * Mason Jacome DO - 02/23/2025 7:43 AM EDT Images from the original note were not included. PATIENT NAME: Steve King DATE OF (age): 89 y.o. PHYSICIAN: Kwesi Jacome DO Date of Visit: 02/23/2025 S: Steve King is stable post-op There were no acute events. His pain is controlled He is tolerating PO He is voiding without issues He denies fevers, chills, nausea, vomiting, chest pain or shortness of breath, or any new complaints. O: BP 102/64 (Patient Position: Semi Fowlers) Pulse 74 Temp 98.1 ??F (36.7 ??C) (Oral) Resp 16 Ht 6' 4 (1.93 m) Wt 251 lb 12.3 oz (114.2 kg) SpO2 94% BMI 30.65 kg/m?? NAD wound vac in place Resp nonlabored Dressings with minimal saturation SILT over foot 2+ DP pulse Fires GS/TA/EHL Neg Micaela's I have reviewed all lab results. Pertinent labs as noted Hb: 10 A/P: 89 y.o. male s/p R hip I&D with modular component exchange POD# 1 Strict posterior hip precautions. High toilet seat. Abduction Pillow when in bed. WBAT RLE ID consult, appreciate recs, follow up intra op cultures, will need chronic suppression after IV course pain control tight postop glucose control/med management eliquis 2.5 BID x 14 days prior to home dose. Mason Jacome DO * Berenice Dallas DO - 02/22/2025 1:34 PM EDTAssociated Problem(s): 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 PRN pain control; Hold eliquis until aspiration hold Abx until aspiration to be resumed tomorrow a.m. 02/20 Ortho consult; discussed with Dr. Jacome IR consulted for aspration Mri R hip ordered : Noted readings 1. 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 There is a large periarticular fluid collection closely associated with the posterior aspect of the joint capsule, extending into the trochanteric bursal region with extension towards the skin surface over the lateral trochanteric level. This collection demonstrates peripheral enhancement, worrisome for abscess. Started on antibiotics IV vancomycin and Zosyn. Monitor renal function, stable 02/21 Monitor Vanco trough. Vancomycin to be dosed by pharmacy Ortho recommend outpatient follow-up post aspiration 02/19 patient underwent IR US guided aspiration; labs sent for cultures 02/20 Difficult iv access. 02/21 continue antibiotics. Noted plan per Ortho for possible washout 02/22 R hip washout today * Berenice Dallas DO - 02/22/2025 1:34 PM EDTAssociated Problem(s): Paroxysmal A-fib (HCC) Rate controlled 02/22 [facility] meds Hold Eliquis until ortho interventions * Berenice Dallas DO - 02/22/2025 1:34 PM EDTAssociated Problem(s): Major neurocognitive disorder (HCC) Seems at baseline 02/22 AAO, ?dementia; ?able to take care of self? [facility] Donepazil * Berenice Dallas DO - 02/22/2025 7:50 AM EDTAssociated Problem(s): NIGHAT (obstructive sleep apnea) CPAP at night RT * Berenice Dallas, DO - 02/22/2025 7:50 AM EDTAssociated Problem(s): Dyslipidemia [facility] Lipitor * Berenice Dallas, DO - 02/22/2025 7:50 AM EDTAssociated Problem(s): Mood disorder [facility] Cymbalta * Berenice Dallas, DO - 02/22/2025 7:50 AM EDTAssociated Problem(s): Type 2 diabetes mellitus with diabetic polyneuropathy, without long-term curr ent use of insulin (HCC) BG in goal 140-180 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 * Berenice Dallas, DO - 02/22/2025 7:50 AM EDTAssociated Problem(s): Environmental allergies Continue Flonase * Berenice Dallas, DO - 02/22/2025 7:50 AM EDTAssociated Problem(s): Hyperkalemia Resolved * Berenice Dallas, DO - 02/22/2025 7:50 AM EDTAssociated Problem(s): Rash monitor for now * Berenice Dallas DO - 02/22/2025 7:50 AM EDTAssociated Problem(s): Dysphagia Speech eval, recs reviewed * Berenice Dallas DO - 02/22/2025 7:50 AM EDTAssociated Problem(s): 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) compensated [facility] lasix * Berenice Dallas DO - 02/22/2025 7:50 AM EDTAssociated Problem(s): BPH (benign prostatic hyperplasia) [facility] flomax * Berenice Dallas DO - 02/22/2025 7:50 AM EDT Images from the original note were not included. 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 PRN pain control; Hold eliquis until aspiration hold Abx until aspiration to be resumed tomorrow a.m. 02/20 Ortho consult; discussed with Dr. Jacome IR consulted for aspration Mri R hip ordered : Noted readings 1. 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 There is a large periarticular fluid collection closely associated with the posterior aspect of the joint capsule, extending into the trochanteric bursal region with extension towards the skin surface over the lateral trochanteric level. This collection demonstrates peripheral enhancement, worrisome for abscess. Started on antibiotics IV vancomycin and Zosyn. Monitor renal function, stable 6/7 Monitor Vanco trough. Vancomycin to be dosed by pharmacy Ortho recommend outpatient follow-up post aspiration 02/19 patient underwent IR US guided aspiration; labs sent for cultures 02/20 Difficult iv access. 02/21 continue antibiotics. Noted plan per Ortho for possible washout 02/22 R hip washout today Paroxysmal A-fib (HCC) Rate controlled 02/22 [facility] meds Hold Eliquis until ortho interventions NIGHAT (obstructive sleep apnea) CPAP at night RT Dyslipidemia [facility] Lipitor Major neurocognitive disorder (HCC) Seems at baseline 02/22 AAO, ?dementia; ?able to take care of self? 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 Environmental allergies Continue Flonase Hyperkalemia Resolved Rash monitor for now Dysphagia Speech evshefali recmark reviewed 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) compensated [facility] lasix BPH (benign prostatic hyperplasia) [facility] flomax Dispo: Continue current care Most recent EKG, telemetry tracings, Imaging, and labs independently reviewed and interpreted by bruno 02/22/2025 VTE Prophylaxis: Active Hospital Problems Diagnosis *Right hip pain NIGHAT (obstructive sleep apnea) Dyslipidemia Major neurocognitive disorder (HCC) Mood disorder Type 2 diabetes mellitus with diabetic polyneuropathy, without long-term current use of insulin (HCC) Environmental allergies Hyperkalemia Rash Dysphagia 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) Paroxysmal A-fib (HCC) BPH (benign prostatic hyperplasia) Subjective: Seen and examined in am. Denies fever, chills, SOB, CP, NVDC. Resting in bed. Awaiting OR this am Objective: BP 119/77 (Patient Position: Semi Fowlers) Pulse 78 Temp 97.5 ??F (36.4 ??C) (Oral) Resp 18 Ht 6' 4 (1.93 m) Wt 251 lb 12.3 oz (114.2 kg) SpO2 99% BMI 30.65 kg/m?? I/O last 3 completed shifts: In: 1427.4 [P.O.:960; I.V.:67; IV Piggyback:400.5] Out: - Weight: 251 lb 12.3 oz (114.2 kg) Constitutional: AAOx3, nad, appears stated age Cardiovascular: RRR Pulmonary/Chest: CTAB Abdominal: Soft. NT ND Musculoskeletal: No edema. Neurological: Grossly normal. Skin: Skin is warm and dry. Labs: Laboratory data and diagnostic testing reviewed 02/22/25. Part of this note was dictated using voice recognition technology and may include unintended spelling errors. Berenice Dallas DO 02/22/2025 7:50 AM * Mason Jacome DO - 02/22/2025 7:47 AM EDT Progress note Name: Steve King PCP: No Pcp, Per Patient Chief Complaint: R hip pain s/p MEKA ([place] May 2022) HPI: No interval changes cultures growing staph Antibiotics: zosyn/ vanco Past Medical History No past medical history on file. Surgical History No past surgical history on file. Social History family history is not on file. Prior to Admission medications Medication Sig Start Date End Date Last Dose Authorizing Provider apixaban (ELIQUIS) 5 mg Oral Tablet Take 5 mg by mouth 2 times daily. Taking Provider, Historical atorvastatin (LIPITOR) 40 mg Oral Tablet Take 40 mg by mouth daily. Taking Provider, Historical calcium carbonate-vitamin D3 250 mg-3.125 mcg (125 unit) Oral Tablet Take 1 Tablet by mouth daily. Taking Provider, Historical donepeziL (ARICEPT) 5 mg Oral Tablet Take 5 mg by mouth nightly. Taking Provider, Historical DULoxetine (CYMBALTA) 60 mg Oral Capsule, Delayed Release(E.C.) Take 60 mg by mouth daily. Taking Provider, Historical fluticasone propionate (FLONASE) 50 mcg/actuation Nasl [place], Suspension 2 Sprays by Nasal route 2 times daily as needed for Allergies. Taking Provider, Historical fUROsemide (LASIX) 20 mg Oral Tablet Take 20 mg by mouth daily. Taking Provider, Historical metFORMIN (GLUCOPHAGE) 500 mg Oral Tablet Take 500 mg by mouth 2 times daily. Taking Provider, Historical polyvinyl alcohol (LIQUIFILM TEARS) 1.4 % Opht Drops Place 1 Drop into both eyes as needed for Dry Eyes. Taking Provider, Historical tamsulosin (FLOMAX) 0.4 mg Oral Capsule Take 0.8 mg by mouth daily. Taking Provider, Historical Allergies Allergies Allergen Reactions Tetanus Vaccines And Toxoid Swelling Pt also states blisters with swelling ROS Physical Examination: Vitals: 02/22/25 0501 BP: 119/77 Pulse: 78 Resp: 18 Temp: 97.5 ??F (36.4 ??C) SpO2: 99% Physical Exam Posterolateral incision with sinus tract or dehiscence/ drainage some erythema over the incision decent hip flexion strength. Able to SLR NVI in R foot with palpable pulses Imaging: X ray images of the R hip were reviewed and interpreted by me today and are significant for: XR HIP RIGHT AP LATERAL W AP PELVIS, 02/16/2025 2:13 PM CLINICAL HISTORY: -hip pain s/p MEKA COMPARISON: None. PROCEDURE COMMENTS: AP view of the pelvis with AP and frog-leg views of the hip. FINDINGS: Patient status post a total right hip replacement. Prosthetic component intact. Mild degenerative changes left hip. No definite pelvic fractures identified. Joint spaces overall well-maintained for age. No periostitis. IMPRESSION: No acute abnormality of the hip or pelvis. MRI R hip: IMPRESSION: 1. 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 There is a large periarticular fluid collection closely associated with the posterior aspect of the joint capsule, extending into the trochanteric bursal region with extension towards the skin surface over the lateral trochanteric level. This collection demonstrates peripheral enhancement, worrisome for abscess. 2. No MRI evidence of periprosthetic osteolysis, marrow edema, or fracture. Labs: elevated inflammatory markers elevated synovial WBC and PMN % MDM: Imaging reviewed Labs reviewed - esr 67 - crp 30 -metal ions WNL -hip aspiration - cx ngtd, cc 57k, 84% segs, synovasure pending, MSIS > 6 likely infected Nonsurgical vs surgical discussion Assessment: 89 year old male s/p R MEKA May 2022 with concerns for PJI. Plan: NPO IVF Plan for extensive debridement and modular component exchange with abx suppression today cell count pmn % concerning, labs elevated, MRI shows fluid collection in joint. Implants: depuy. 60 cup. 10 HO stem +1.5 head. neutral liner Given his age, low demand, I am concerned he would not tolerate a 2 stage procedure, or explant well. Plan would be likely extensive debridement with modular component exchange. OK for DVT prophylaxis today 02/20 - may consider OR Sunday AM for R hip I&D with head liner exchange. * Aki Torre, PharmD - 02/22/2025 7:36 AM EDT Pharmacy Consult - Vancomycin S: Steve King is a(n) 89 y.o. 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 Scheduled for total hip arthroplasty with revision this morning. Patient had hip replacement ~2 years ago. He had MRSA following surgery and was treated for [address] with complex cyst surrounding the hip prosthesis. Allergies: Tetanus vaccines and toxoid Day 4 of pharmacy managed vancomycin therapy. Other antimicrobials include: Piperacillin/tazobactam (02/19- ) O: Most Recent Labs: Temp Min: 97.5 ??F (36.4 ??C) Max: 97.8 ??F (36.6 ??C) Recent Labs 02/19/25 0701 02/20/25 0624 02/21/25 0602 WBC 11.6* 8.5 5.6 BUN 31* 29* 25* CREATININE 0.98 0.92 0.86 Estimated Creatinine Clearance: 74.3 mL/min (by C-G formula based on SCr of 0.86 mg/dL). Recent Labs 02/21/25 0602 02/21/25 1212 VANCOAUC1 23.9 -- VANCOAUC2 -- 15.5 Recent Labs 02/16/25 1049 CRP 30.18* I/O last 3 completed shifts: In: 1427.4 [P.O.:960; I.V.:67; IV Piggyback:400.5] Out: - No intake/output data recorded. Height: 6' 4 (193 cm) Weight: 251 lb 12.3 oz (114.2 kg) Culture & Sensitivities: Results for orders placed or performed during the hospital encounter of 02/16/25 (from the past 2 weeks) WOUND CULTURE (STAIN INCLUDED) Collection Time: 02/19/25 12:43 PM Specimen: Hip, Right; Aspirate Result Value Ref Range Culture Positive Growth (A) Culture Moderate growth of Staphylococcus aureus PBP2a test Negative Stain Moderate WBCs Stain No organisms seen ANAEROBIC CULTURE (NO STAIN) Collection Time: 02/19/25 12:43 PM Specimen: Hip, Right; Aspirate Result Value Ref Range Culture Culture in progress. FUNGUS STAIN (STAIN ONLY) Collection Time: 02/19/25 12:43 PM Specimen: Hip, Right; Aspirate Result Value Ref Range Fungal Stain No yeast or fungal elements seen. No yeast or fungal elements seen. ACID FAST BACILLI CULTURE AND SMEAR (STAIN INCLUDED) Collection Time: 02/19/25 12:43 PM Specimen: Hip, Right; Aspirate Result Value Ref Range AFB Stain SEE NOTE AFB Culture SEE NOTE A/P: Physician orders and progress notes reviewed. Patient's renal function is stable. See previous pharmacy consult notes for complete vancomycin dosing history. Patient is currently receiving vancomycin 1,750 mg every 18 hours. This dosing regimen is expected to result in the following kinetic parameters: - Peakss = 30.73 mcg/mL - Troughss = 9.99 mcg/mL - AUCss = 448 mg??hr/L; goal AUC 400-600 Will continue vancomycin 1,750 mg every 18 hours and plan to assess AUC concentrations tomorrow. Based on culture growing Staph aureus with a negative PBP2a assay could consider deescalating antibiotics to cefazolin if not concerned for other sources of infection. Pharmacy will continue to follow patient for changes in renal function, efficacy, and signs of toxicity. Other labs: BMP daily Thank you, Aki Torre PharmD * Aki Trore, PharmD - 02/21/2025 1:13 PM EDT Pharmacy Consult - Vancomycin S: Steve King is a(n) 89 y.o. male with diagnosis of possible hip infection. Patient had hip replacement ~2 years ago. He had MRSA following surgery and was treated for 6 weeks with IV antibiotics. CT with complex cyst surrounding the hip prosthesis. Allergies: Tetanus vaccines and toxoid Day 3 of pharmacy managed vancomycin therapy. Other antimicrobials include: Piperacillin/tazobactam (6/5- ) O: Most Recent Labs: Temp Min: 97.4 ??F (36.3 ??C) Max: 97.8 ??F (36.6 ??C) Recent Labs 02/19/25 0701 02/20/25 0624 02/21/25 06 WBC 11.6* 8.5 5.6 BUN 31* 29* 25* CREATININE 0.98 0.92 0.86 Estimated Creatinine Clearance: 74.3 mL/min (by C-G formula based on SCr of 0.86 mg/dL). Recent Labs 02/21/25 0602 02/21/25 1212 VANCOAUC1 23.9 -- VANCOAUC2 -- 15.5 Recent Labs 02/16/25 1049 CRP 30.18* I/O last 3 completed shifts: In: 2044 [P.O.:1195; IV Piggyback:849] Out: - I/O this shift: In: 360 [P.O.:360] Out: - Height: 6' 4 (193 cm) Weight: 251 lb 12.3 oz (114.2 kg) Culture & Sensitivities: Results for orders placed or performed during the hospital encounter of 02/16/25 (from the past 2 weeks) WOUND CULTURE (STAIN INCLUDED) Collection Time: 02/19/25 12:43 PM Specimen: Hip, Right; Aspirate Result Value Ref Range Culture Positive Growth (A) Culture Moderate growth of Staphylococcus aureus Stain Moderate WBCs Stain No organisms seen ANAEROBIC CULTURE (NO STAIN) Collection Time: 02/19/25 12:43 PM Specimen: Hip, Right; Aspirate Result Value Ref Range Culture Culture in progress. FUNGUS STAIN (STAIN ONLY) Collection Time: 02/19/25 12:43 PM Specimen: Hip, Right; Aspirate Result Value Ref Range Fungal Stain No yeast or fungal elements seen. No yeast or fungal elements seen. A/P: Physician orders and progress notes reviewed. Patient's renal function is stable. Initiated vancomycin therapy with a loading dose of 2,000 mg (~18 mg/kg), followed by a maintenancedose of 1,500 mg (~13 mg/kg) every 18 hours. Patient's measured first concentration collected prior to the 4th dose resulted as 23.9 mcg/mL (02/21 602). Patient's measured second concentration collected prior to the 4th dose resulted as 15.5 mcg/mL (02/21 1212). Prior dose was administered on 02/21 at 02:39. Patient's calculated kinetic parameters based off these concentrations at approximately steady state: - Ke = 0.0702 hr^-1 - Half-life = 9.9 hr - Cmax = 26.34 mcg/mL - Cmin = 8.56 mcg/mL - AUCss = 384 mg??hr/L Will modify patient's vancomycin therapy to 1,750 mg (~15 mg/kg) every 18 hours. This new dosing regimen is estimated to result in: - Peakss = 30.73 mcg/mL - Troughss = 9.99 mcg/mL - AUCss = 448 mg??hr/L; goal AUC 400-600 Will evaluate levels for AUC dosing on 02/23 between the 3rd and 4th dose of this new regimen. Pharmacy will continue to follow patient for changes in renal function, efficacy, and signs of toxicity. Other labs: as ordered. Thank you, Aki Torre, PharmD * Berenice Dallas DO - 02/21/2025 12:27 PM EDTAssociated Problem(s): 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 PRN pain control; Hold eliquis until aspiration hold Abx until aspiration to be resumed tomorrow a.m. 02/20 Ortho consult; discussed with Dr. Jacome IR consulted for aspration Mri R hip ordered : Noted readings 1. 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 There is a large periarticular fluid collection closely associated with the posterior aspect of the joint capsule, extending into the trochanteric bursal region with extension towards the skin surface over the lateral trochanteric level. This collection demonstrates peripheral enhancement, worrisome for abscess. Started on antibiotics IV vancomycin and Zosyn. Monitor renal function, stable 02/21 Monitor Vanco trough. Vancomycin to be dosed by pharmacy Ortho recommend outpatient follow-up post aspiration 02/19 patient underwent IR US guided aspiration; labs sent for cultures 02/20 Difficult iv access. 02/21 continue antibiotics. Noted plan per Ortho for possible washout * Berenice Dallas, DO - 02/21/2025 12:27 PM EDTAssociated Problem(s): Paroxysmal A-fib (HCC) Rate controlled 6/ [facility] meds Hold Eliquis until ortho interventions * Berenice Dallas DO - 02/21/2025 12:27 PM EDTAssociated Problem(s): NIGHAT (obstructive sleep apnea) CPAP at night RT * Berenice Dallas DO - 02/21/2025 12:27 PM EDTAssociated Problem(s): Dyslipidemia [facility] Lipitor * Berenice Dallas DO - 02/21/2025 12:27 PM EDTAssociated Problem(s): Major neurocognitive disorder (HCC) Seems at baseline 02/21 AAO, ?dementia; ?able to take care of self? 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 * Berenice Dallas DO - 02/21/2025 12:27 PM EDTAssociated Problem(s): Environmental allergies Continue Flonase * Berenice Dallas DO - 02/21/2025 12:27 PM EDTAssociated Problem(s): Hyperkalemia Resolved * Berenice Dallas DO - 02/21/2025 12:27 PM EDTAssociated Problem(s): Rash monitor for now * Berenice Dallas DO - 02/21/2025 12:27 PM EDTAssociated Problem(s): Dysphagia Speech eval, recs reviewed * Berenice Dallas DO - 02/21/2025 12:27 PM EDTAssociated Problem(s): 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) compensated [facility] lasix * Berenice Dallas DO - 02/21/2025 12:27 PM EDTAssociated Problem(s): BPH (benign prostatic hyperplasia) [facility] flomax * Berenice Dallas DO - 02/21/2025 8:25 AM EDT Images from the original note were not included. 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 PRN pain control; Hold eliquis until aspiration hold Abx until aspiration to be resumed tomorrow a.m. 02/20 Ortho consult; discussed with Dr. Jacome IR consulted for aspration Mri R hip ordered : Noted readings 1. 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 There is a large periarticular fluid collection closely associated with the posterior aspect of the joint capsule, extending into the trochanteric bursal region with extension towards the skin surface over the lateral trochanteric level. This collection demonstrates peripheral enhancement, worrisome for abscess. Started on antibiotics IV vancomycin and Zosyn. Monitor renal function, stable 02/21 Monitor Vanco trough. Vancomycin to be dosed by pharmacy Ortho recommend outpatient follow-up post aspiration 02/19 patient underwent IR US guided aspiration; labs sent for cultures 02/20 Difficult iv access. 02/21 continue antibiotics. Noted plan per Ortho for possible washout Paroxysmal A-fib (HCC) Rate controlled 02/21 [facility] meds Hold Eliquis until ortho interventions NIGHAT (obstructive sleep apnea) CPAP at night RT Dyslipidemia [facility] Lipitor Major neurocognitive disorder (HCC) Seems at baseline 02/21 AAO, ?dementia; ?able to take care of self? 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 Environmental allergies Continue Flonase Hyperkalemia Resolved Rash monitor for now Dysphagia Speech eval, recs reviewed 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) compensated [facility] lasix BPH (benign prostatic hyperplasia) [facility] flomax Dispo: Continue current care Most recent EKG, telemetry tracings, Imaging, and labs independently reviewed and interpreted by bruno 02/21/2025 VTE Prophylaxis: Qualifying Pharmacologic Prophylaxis apixaban (ELIQUIS) tablet 5 mg 2 TIMES DAILY Active Hospital Problems Diagnosis *Right hip pain NIGHAT (obstructive sleep apnea) Dyslipidemia Major neurocognitive disorder (HCC) Mood disorder Type 2 diabetes mellitus with diabetic polyneuropathy, without long-term current use of insulin (HCC) Environmental allergies Hyperkalemia Rash Dysphagia 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) ([facility]) Paroxysmal A-fib (HCC) BPH (benign prostatic hyperplasia) Subjective: Seen and examined in am. Denies fever, chills, SOB, CP, NVDC. Discussed antibiotics and Ortho plan for washout. Objective: BP 96/68 (BP Location: Left arm, Patient Position: Supine) Pulse 76 Temp 97.5 ??F (36.4 ??C) (Oral) Resp 18 Ht 6' 4 (1.93 m) Wt 251 lb 12.3 oz (114.2 kg) SpO2 96% BMI 30.65 kg/m?? I/O last 3 completed shifts: In: 2043 [P.O.:1195; IV Piggyback:849] Out: - Weight: 251 lb 12.3 oz (114.2 kg) Constitutional: AAOx3, NAD, resting in bed Cardiovascular: RRR Pulmonary/Chest: CTAB Abdominal: Soft. NT ND Musculoskeletal: No edema. Hip aspiration site CDI Neurological: Grossly normal. Skin: Skin is warm and dry. Labs: Laboratory data and diagnostic testing reviewed 02/21/25. Part of this note was dictated using voice recognition technology and may include unintended spelling errors. Berenice Dallas DO 02/21/2025 12:25 PM * Berenice Dallas DO - 02/20/2025 10:12 PM EDTAssociated Problem(s): 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 PRN pain control; Hold eliquis until aspiration hold Abx until aspiration to be resumed tomorrow a.m. 02/20 Ortho consult; discussed with Dr. Jacome IR consulted for aspration Mri R hip ordered : Noted readings 1. 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 There is a large periarticular fluid collection closely associated with the posterior aspect of the joint capsule, extending into the trochanteric bursal region with extension towards the skin surface over the lateral trochanteric level. This collection demonstrates peripheral enhancement, worrisome for abscess. Started on antibiotics IV vancomycin and Zosyn. Monitor renal function, Vanco trough. Vancomycin cristopher dosed by pharmacy Ortho recommend outpatient follow-up post aspiration 02/19 patient underwent IR US guided aspiration; labs sent for sultures 02/20 Difficult iv access. * Berenice Dallas DO - 02/20/2025 10:12 PM EDTAssociated Problem(s): Major neurocognitive disorder (HCC) Seems at baseline 02/20 AAO, ?dementia; ?able to take care of self? 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 * Berenice Dallas, DO - 02/20/2025 10:12 PM EDTAssociated Problem(s): Paroxysmal A-fib (HCC) Rate controlled 02/20 [facility] meds Hold Eliquis until ortho interventions * Berenice Dallas, DO - 02/20/2025 2:03 PM EDTAssociated Problem(s): BPH (benign prostatic hyperplasia) [facility] flomax * Berenice Dallas DO - 02/20/2025 2:03 PM EDTAssociated Problem(s): NIGHAT (obstructive sleep apnea) CPAP at night RT * Berenice Dallas DO - 02/20/2025 2:03 PM EDTAssociated Problem(s): Dyslipidemia [facility] Lipitor * Berenice Dallas DO - 02/20/2025 2:03 PM EDTAssociated Problem(s): Mood disorder [facility] Cymbalta * Berenice Dallas DO - 02/20/2025 2:03 PM EDTAssociated Problem(s): Environmental allergies Continue Flonase * Berenice Dallas DO - 02/20/2025 2:03 PM EDTAssociated Problem(s): Hyperkalemia Resolved * Berenice Dallas DO - 02/20/2025 2:03 PM EDTAssociated Problem(s): Rash monitor for now * Berenice Dallas DO - 02/20/2025 2:03 PM EDTAssociated Problem(s): Dysphagia Speech eval, recs reviewed * Berenice Dallas DO - 02/20/2025 2:03 PM EDTAssociated Problem(s): 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) compensated [facility] lasix * Shelley Floyd, IMAGERY INTELLIGENCE - 02/20/2025 1:47 PM EDT 02/20/25 1215 PT Subjective Note Type Treatment/Progress Patient Room/Unit TCU;4N PT Subjective Comments #1 pt eating lunch at this time. agreeable to therapy when finished. Returned at 111pm pt reports has taken a walk like last time with aide while therapy gone and is happy to take another. pt hoping to build strength walking multiple times this weekend with nsg/aide staff. Others Present/Assisting pt states Sx going back in Sun/Sunday.on hip Discharge Information This progress note will serve as the discharge summary if no further therapy is provided prior to the patient being discharged from the hospital. Clinical Course spoke with nsg previous to mobility. Pain Screening PT/OT Patient Currently in Pain No Cognition Orientation Intact Additional comments L Ear best. R ear deaf per pt Observation Posture tall elderly male Observation Telemetry;Bed alarm Additional Comments eye infection per nsg. new and being treated. Bed Mobility Rolling Stand by assist Supine to Sit Stand by assist;Head of bed elevated Additional Comments increased time and effort. Transfers Sit to Stand Stand by assist;Contact guard assist;With raised bed height Stand to Sit Stand by assistance;Contact guard assistance Gait Gait Contact guard assist Gait Distance (Feet) 140 Feet Assistive Device 2 Wheel walker Pattern Slow rick;Flexed posture Additional Comments mild instability. Gait=15min AM PAC: How much help from another person does the patient currently need... turning from your back to your side while in a flat bed without using bedrails? 3 moving from lying on your back to sitting on the side of a flat bed without using bedrails? 3 moving to and from a bed to a chair? 3 standing up from a chair using your arms (e.g. wheelchair, or bedside chair)? 3 need to walk in hospital room? 3 climbing 3-5 steps with a railing? 2 AM PAC: BASIC MOBILITY SCORING AM [facility] Moblity Raw Score 17 AM [facility] Mobility [facility] 0-100% Functional Percentage 43.83 AM [facility] Mobility [facility] G Code Modifier CK Balance Sitting Balance 4/5 moves/returns trunkal midpoint 1-2 inches in multiple planes Standing Balance 2/5 indep, requires both UE support Exercise Exercise Yes Additional Comments supine BLe ther ex x 10 reps AP,Knee flex/ext, ABD/ADD, SLR Ther ex=15min Education Education Patient/Family Education;To use call light to request assistance with all mobility;Role of Therapy;Safety with mobility;Discharge planning;Cues for proper technique;Up with assistance only;Precautions Patient Safety Patient Safety Patient left in chair with needs in reach;Chair/personal alarm activated;Nursing notified of status Assessment Assessment Decreased gait;Decreased functional mobility;Decreased balance;Decreased ADL status;Decreased activity tolerance ;Decreased self-care transfers;Decreased high-level ADLs Prognosis Fair;Good;With continued PT s/p acute discharge Progress Progressing toward goals Plan Treatment/Interventions Gait training;Bed mobility;Balance training;ADL retraining;Functional transfer training;LE strengthening/ROM;Increase activity tolerance Recommendation PT Recommendation Moderate frequency, moderate intensity five days a week therapy recommended. (not safe to amb alone. states was indep prev to Sx) Time In / Time Out 111/141 IP PT Treatment Minutes 30 The total time spent caring for this patient included but was not limited to medical record review;hands-on treatment;communication and education with patient and/or family/caregiver;clinical judgement necessary for treatment planning for next session;communication with nursing and/or care coordinat ion/social work regarding patient status and discharge planning * Sandoval Steiner RP - 02/20/2025 12:14 PM EDT S: Steve King is a(n) 89 y.o. male with diagnosis of possible hip infection. Patient had Hip replacement about 2 years ago. He had MRSA following surgery and was treated for 6 weeks with IV Abx. CT with complex cyst surrounding the hip prosthesis. Allergies: Tetanus vaccines and toxoid Day 2 of pharmacy managed vancomycin therapy. Other antimicrobials include piperacillin/tazobactam. O: Most Recent Labs: Temp Min: 97.4 ??F (36.3 ??C) Max: 99.7 ??F (37.6 ??C) Recent Labs 02/16/25 0358 02/19/25 0701 02/20/25 0624 WBC 7.5 11.6* 8.5 BUN 52* 31* 29* CREATININE 1.08 0.98 0.92 Estimated Creatinine Clearance: 69.5 mL/min (by C-G formula based on SCr of 0.92 mg/dL). Recent Labs 02/16/25 1049 CRP 30.18* No intake/output data recorded. No intake/output data recorded. Height: 6' 4 (193 cm) Weight: 251 lb 12.3 oz (114.2 kg) Culture & Sensitivities: Results for orders placed or performed during the hospital encounter of 02/16/25 (from the past 2 weeks) WOUND CULTURE (STAIN INCLUDED) Collection Time: 02/19/25 12:43 PM Specimen: Hip, Right; Aspirate Result Value Ref Range Stain Moderate WBCs Stain No organisms seen A/P: Physician orders and progress notes reviewed. Patient's renal function is slightly improving. Initiated vancomycin therapy with a 2000 mg loading dose then 1500 mg every 18 hours. This dosing regimen is estimated to result in a predicted AUCss of 429 mg??hr/L; Goal AUC is 400-600. Will check levels on 02/21 between the 3rd and 4th dose. Pharmacy will follow patient for changes in renal function, efficacy, and signs of toxicity. Other labs: BMP on 02/21. Sandoval Erazo, PharmTi * Blanca Low RN - 02/20/2025 11:06 AM EDT 02/20/25 1059 Ongoing Discharge Planning Evaluation Actual Discharge Plan 02-20-2025 Discharge update: CC spoke with Fabricio [phone] from [place]- they continue to follow for medical stability. [facility] clinical[facility] and will arrange transport at discharge. * Berenice Dallas DO - 02/20/2025 8:13 AM EDT Images from the original note were not included. 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 PRN pain control; Hold eliquis until aspiration hold Abx until aspiration to be resumed tomorrow a.m. 02/20 Ortho consult; discussed with Dr. Jacome IR consulted for aspration Mri R hip ordered : Noted readings 1. 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 There is a large periarticular fluid collection closely associated with the posterior aspect of the joint capsule, extending into the trochanteric bursal region with extension towards the skin surface over the lateral trochanteric level. This collection demonstrates peripheral enhancement, worrisome for abscess. Started on antibiotics IV vancomycin and Zosyn. Monitor renal function, Vanco trough. Vancomycin cristopher dosed by pharmacy Ortho recommend outpatient follow-up post aspiration 02/19 patient underwent IR US guided aspiration; labs sent for sultures 02/20 Difficult iv access. Paroxysmal A-fib (HCC) Rate controlled 02/20 [facility] meds Hold Eliquis until ortho interventions NIGHAT (obstructive sleep apnea) CPAP at night RT Dyslipidemia [facility] Lipitor Major neurocognitive disorder (HCC) Seems at baseline 02/20 AAO, ?dementia; ?able to take care of self? 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 Environmental allergies Continue Flonase Hyperkalemia Resolved Rash monitor for now Dysphagia Speech isaac recmark reviewed 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) compensated [facility] lasix BPH (benign prostatic hyperplasia) [facility] flomax Dispo: Continue current care Most recent EKG, telemetry tracings, Imaging, and labs independently reviewed and interpreted by bruno 02/20/2025 VTE Prophylaxis: Qualifying Pharmacologic Prophylaxis apixaban (ELIQUIS) tablet 5 mg 2 TIMES DAILY Active Hospital Problems Diagnosis *Right hip pain NIGHAT (obstructive sleep apnea) Dyslipidemia Major neurocognitive disorder (HCC) Mood disorder Type 2 diabetes mellitus with diabetic polyneuropathy, without long-term current use of insulin (HCC) Environmental allergies Hyperkalemia Rash Dysphagia 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) Paroxysmal A-fib (HCC) BPH (benign prostatic hyperplasia) Subjective: Seen and examined in am. Denies fever, chills, SOB, CP, NVDC. discussed Abx and placement Objective: BP 93/69 (BP Location: Right arm, Patient Position: Semi Fowlers) Pulse 72 Temp 97.6 ??F (36.4 ??C) (Oral) Resp 18 Ht 6' 4 (1.93 m) Wt 251 lb 12.3 oz (114.2 kg) SpO2 98% BMI 30.65 kg/m?? I/O last 3 completed shifts: In: 955 [P.O.:955] Out: - Weight: 251 lb 12.3 oz (114.2 kg) Constitutional: AAOx2, nad, resting in bed Cardiovascular: RRR Pulmonary/Chest: CTAB Abdominal: Soft. NT ND Musculoskeletal: No edema. Neurological: Grossly normal. Skin: Skin is warm and dry. Labs: Laboratory data and diagnostic testing reviewed 02/20/25. Part of this note was dictated using voice recognition technology and may include unintended spelling errors. Berenice Dallas DO 02/20/2025 10:10 PM * Berenice Dallas DO - 02/19/2025 7:26 PM EDTAssociated Problem(s): 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 PRN pain control; Hold eliquis until aspiration hold Abx until aspiration to be resumed tomorrow a.m. 02/20 Ortho consult; discussed with Dr. Jacome IR consulted for aspration Mri R hip ordered : Noted readings 1. 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 There is a large periarticular fluid collection closely associated with the posterior aspect of the joint capsule, extending into the trochanteric bursal region with extension towards the skin surface over the lateral trochanteric level. This collection demonstrates peripheral enhancement, worrisome for abscess. Started on antibiotics IV vancomycin and Zosyn. Monitor renal function, Vanco trough. Vancomycin cristopher dosed by pharmacy Ortho recommend outpatient follow-up post aspiration 02/19 patient underwent IR US guided aspiration * Berenice Dallas DO - 02/19/2025 7:26 PM EDTAssociated Problem(s): Major neurocognitive disorder (HCC) Seems at baseline AAO, ?dementia; ?able to take care of self? [facility] Donepazil * Berenice Dallas DO - 02/19/2025 7:26 PM EDTAssociated Problem(s): Paroxysmal A-fib (HCC) Rate controlled [facility] meds Hold Eliquis until ortho interventions * Ayad Fitzgerald RN - 02/19/2025 5:07 PM EDT Redness and hardness noticed on LAC PIV site. Pt denied pain. PIV removed, dressing applied. Small Ice pack placed on site. * Sandoval Steiner [facility] - 02/19/2025 2:31 PM EDT S: Steve King is a(n) 89 y.o. male with diagnosis of possible hip infection. Patient had Hip replacement about 2 years ago. He had MRSA following surgery and was treated for 6 weeks with IV Abx. CT with complex cyst surrounding the hip prosthesis. Allergies: Tetanus vaccines and toxoid Pharmacy consulted to manage vancomycin therapy. Other antimicrobials include piperacillin/tazobactam. O: Most Recent Labs: Temp Min: 97.4 ??F (36.3 ??C) Max: 98.1 ??F (36.7 ??C) Recent Labs 02/16/25 0358 02/19/25 0701 WBC 7.5 11.6* BUN 52* 31* CREATININE 1.08 0.98 Recent Labs 02/16/25 1049 CRP 30.18* I/O last 3 completed shifts: In: 840 [P.O.:840] Out: - No intake/output data recorded. Height: 6' 4 (193 cm) Weight: 251 lb 12.3 oz (114.2 kg) Culture & Sensitivities: No results found for this visit on 02/16/25 (from the past 2 weeks). Patient's initial estimated kinetic parameters based on AUC kinetics: - CrCl = 65.2 mL/min - Ke = 0.0585 hr^-1 - Half-life = 11.85 hr A/P: Physician orders and progress notes reviewed. S/p right hip bursa aspiration today. Patient???s renal function is stable. Will initiate vancomycin therapy with a 2000 mg loading dose then 1500 mg every 18 hours. This dosing regimen is estimated to result in a predicted AUCss of 429 mg??hr/L; Goal AUC is 400-600. Will check levels on 02/21 between the 3rd and 4th dose. Pharmacy will follow patient for changes in renal function, efficacy, and signs of toxicity. Other labs: BMP on 02/20. Sandoval Erazo, Michelle * Amanda Jones PA-C - 02/19/2025 9:12 AM EDT Images from the original note were not included. Reviewed patient's MRI imaging with Dr. Jericho Marrufo: 1. 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 There is a large periarticular fluid collection closely associated with the posterior aspect of the joint capsule, extending into the trochanteric bursal region with extension towards the skin surface over the lateral trochanteric level. This collection demonstrates peripheral enhancement, worrisome for abscess. 2. No MRI evidence of periprosthetic osteolysis, marrow edema, or fracture. Per Dr. Marrufo, can attempt US guided aspiration today around 1130. INR ordered. Plts: 237 On Home Eliquis. Has not had since admission. Orders per Dr. Jacome for: aerobic anaerobic culture, afb fungal culture cell count gram stain Synovlesvia Jones PA-C * Berenice Dallas DO - 02/19/2025 8:32 AM EDTAssociated Problem(s): NIGHAT (obstructive sleep apnea) CPAP at night RT * Berenice Dallas, DO - 02/19/2025 8:32 AM EDTAssociated Problem(s): Dyslipidemia [facility] Lipitor * Berenice Dallas DO - 02/19/2025 8:32 AM EDTAssociated Problem(s): Mood disorder [facility] Cymbalta * Berenice Dallas, DO - 02/19/2025 8:32 AM EDTAssociated Problem(s): Type 2 diabetes mellitus with diabetic polyneuropathy, without long-term curr ent use of insulin (HCC) Check A1C in am. 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 * Berenice Dallas, DO - 02/19/2025 8:32 AM EDTAssociated Problem(s): Environmental allergies Continue Flonase * Berenice Dallas DO - 02/19/2025 8:32 AM EDTAssociated Problem(s): Hyperkalemia Resolved * Berenice Dallas, DO - 02/19/2025 8:32 AM EDTAssociated Problem(s): Rash monitor for now * Berenice Dallas DO - 02/19/2025 8:32 AM EDTAssociated Problem(s): Dysphagia Speech eval, recs reviewed * Berenice Dallas DO - 02/19/2025 8:32 AM EDTAssociated Problem(s): 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) compensated [facility] lasix * Berenice Dallas DO - 02/19/2025 8:32 AM EDTAssociated Problem(s): BPH (benign prostatic hyperplasia) [facility] flomax * Berenice Dallas DO - 02/19/2025 8:31 AM EDT Images from the original note were not included. 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 PRN pain control; Hold eliquis until aspiration hold Abx until aspiration to be resumed tomorrow a.m. 02/20 Ortho consult; discussed with Dr. Jacome IR consulted for aspration Mri R hip ordered : Noted readings 1. 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 There is a large periarticular fluid collection closely associated with the posterior aspect of the joint capsule, extending into the trochanteric bursal region with extension towards the skin surface over the lateral trochanteric level. This collection demonstrates peripheral enhancement, worrisome for abscess. Started on antibiotics IV vancomycin and Zosyn. Monitor renal function, Vanco trough. Vancomycin cristopher dosed by pharmacy Ortho recommend outpatient follow-up post aspiration 02/19 patient underwent IR US guided aspiration NIGHAT (obstructive sleep apnea) CPAP at night RT Dyslipidemia [facility] Lipitor Major neurocognitive disorder (HCC) Seems at baseline AAO, ?dementia; ?able to take care of self? [facility] Donepazil Mood disorder [facility] Cymbalta Type 2 diabetes mellitus with diabetic polyneuropathy, without long-term current use of insulin (HCC) Check A1C in am. 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 Environmental allergies Continue Flonase Hyperkalemia Resolved Rash monitor for now Dysphagia Speech eval, recs reviewed 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) compensated [facility] lasix Paroxysmal A-fib (HCC) Rate controlled [facility] meds Hold Eliquis until ortho interventions BPH (benign prostatic hyperplasia) [facility] flomax Dispo: Continue current care Most recent EKG, telemetry tracings, Imaging, and labs independently reviewed and interpreted by bruno 02/19/2025 VTE Prophylaxis: Active Hospital Problems Diagnosis *Right hip pain NIGHAT (obstructive sleep apnea) Dyslipidemia Major neurocognitive disorder (HCC) Mood disorder Type 2 diabetes mellitus with diabetic polyneuropathy, without long-term current use of insulin (HCC) Environmental allergies Hyperkalemia Rash Dysphagia 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) Paroxysmal A-fib (HCC) BPH (benign prostatic hyperplasia) Subjective: Seen and examined in am. Denies fever, chills, SOB, CP, NVDC. Discussed IR aspiration planned for today. Discussed placement. Objective: BP 90/59 (BP Location: Right arm, Patient Position: Sitting) Pulse 71 Temp 98.1 ??F (36.7 ??C) (Oral) Resp 20 Ht 6' 4 (1.93 m) Wt 251 lb 12.3 oz (114.2 kg) SpO2 95% BMI 30.65 kg/m?? I/O last 3 completed shifts: In: 840 [P.O.:840] Out: - Weight: 251 lb 12.3 oz (114.2 kg) Constitutional: AAOx3, NAD, resting in chair, mild confusion Cardiovascular: RRR Pulmonary/Chest: CTAB Abdominal: Soft. NT ND Musculoskeletal: No edema. Right hip edema Neurological: Grossly normal. Skin: Skin is warm and dry. Labs: Laboratory data and diagnostic testing reviewed 02/19/25. Part of this note was dictated using voice recognition technology and may include unintended spelling errors. 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 PRN pain control; Hold eliquis until aspiration hold Abx until aspiration Ortho consult; discussed with Dr. Jacome IR consulted for aspration Mri R hip ordered * Shelley Floyd PTA - 02/18/2025 2:07 PM EDT 02/18/25 1254 PT Subjective Note Type Treatment/Progress Patient Room/Unit TCU;4N PT Subjective Comments #1 pt agreeable requests toilet. Discharge Information This progress note will serve as the discharge summary if no further therapy is provided prior to the patient being discharged from the hospital. Clinical Course spoke with jamee previous to arrival Pain Screening PT/OT Patient Currently in Pain No Cognition Orientation Intact Additional comments EMMONAK; had lg BM during therapy and states feels significantly better Observation Presentation Patient seated in chair Posture tall slexed elderly male Observation Telemetry;Bed alarm Bed Mobility Additional Comments in BSREcliner upon arrival Transfers Sit to Stand Stand by assist;Contact guard assist Stand to Sit Stand by assistance;Contact guard assistance Additional Comments indep with pericare.pt states needs to get BUE in proper positioning due to chronic issues. Gait Gait Contact guard assist;Stand by assist Gait Distance (Feet) 140 Feet (and 10 ft to bathroom initially sitting on reg toilet.) Assistive Device 2 Wheel walker Pattern Slow rick;Flexed posture Additional Comments significant improvement in mobility. AM PAC: How much help from another person does the patient currently need... turning from your back to your side while in a flat bed without using bedrails? 3 moving from lying on your back to sitting on the side of a flat bed without using bedrails? 3 moving to and from a bed to a chair? 3 standing up from a chair using your arms (e.g. wheelchair, or bedside chair)? 3 need to walk in hospital room? 3 climbing 3-5 steps with a railing? 2 AM PAC: BASIC MOBILITY SCORING AM PAC Moblity Raw Score 17 AM PAC Mobility CMS 0-100% Functional Percentage 43.83 AM PAC Mobility CMS G Code Modifier CK Balance Sitting Balance 4+/5 moves/returns trunkal midpoint 1-2 inches in multiple planes Standing Balance 2/5 indep, requires both UE support Exercise Exercise Yes Additional Comments seated BLe ther ex x 10 reps long sit position. AP,ABD/ADD, SLR,LAQ Education Education Patient/Family Education;To use call light to request assistance with all mobility;Role of Therapy;Safety with mobility;Discharge planning;Cues for proper technique;Up with assistance only;Precautions Patient Safety Patient Safety Patient left in chair with needs in reach;Chair/personal alarm activated;Nursing notified of status (nsg in room addressing pt needs.) Assessment Assessment Decreased gait;Decreased functional mobility;Decreased balance;Decreased ADL status;Decreased activity tolerance ;Decreased self-care transfers;Decreased high-level ADLs Prognosis Fair;Good;With continued PT s/p acute discharge Progress Progressing toward goals Rationale for Skilled Therapy Fall Risk;Balance Deficits;Not safe with independent transfers;Not safe ambulating independently Plan Treatment/Interventions Gait training;Bed mobility;Balance training;ADL retraining;Functional transfer training;LE strengthening/ROM;Increase activity tolerance Recommendation PT Recommendation Moderate frequency, moderate intensity five days a week therapy recommended. (relayed mobility progression to CC) Time In / Time Out 1254/112 IP PT Treatment Minutes 18 The total time spent caring for this patient included but was not limited to medical record review;hands-on treatment;communication and education with patient and/or family/caregiver;clinical judgement necessary for treatment planning for next session;communication with nursing and/or care coordinat ion/social work regarding patient status and discharge planning * Blanca Low RN - 02/18/2025 11:28 AM EDT 02/18/25 1127 Ongoing Discharge Planning Evaluation Actual Discharge Plan 02-18-2025 Discharge update: pt's son is requesting SNF at [place]. CC sentreferral via [employer], awaiting response. CC continues to follow. * Berenice Dallas DO - 02/18/2025 11:09 AM EDTAssociated Problem(s): NIGHAT (obstructive sleep apnea) CPAP at night RT * Berenice Dallas DO - 02/18/2025 11:09 AM EDTAssociated Problem(s): Dyslipidemia CEDRICK Lipitor * Berenice Dallas DO - 02/18/2025 11:09 AM EDTAssociated Problem(s): Major neurocognitive disorder (HCC) AAO, ?dementia; ?able to take care of self? [facility] Donepazil * Berenice Dallas DO - 02/18/2025 11:09 AM EDTAssociated Problem(s): Mood disorder [facility] Cymbalta * Berenice Dallas DO - 02/18/2025 11:09 AM EDTAssociated Problem(s): Type 2 diabetes mellitus with diabetic polyneuropathy, without long-term curr ent use of insulin (HCC) Check A1C in am. 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 * Berenice Dallas DO - 02/18/2025 11:09 AM EDTAssociated Problem(s): Environmental allergies Continue Flonase * Berenice Dallas DO - 02/18/2025 11:09 AM EDTAssociated Problem(s): Hyperkalemia Resolved * Berenice Dallas DO - 02/18/2025 11:09 AM EDTAssociated Problem(s): Rash monitor for now * Berenice Dallas DO - 02/18/2025 11:09 AM EDTAssociated Problem(s): Dysphagia Speech eval, recs reviewed * Berenice Dallas DO - 02/18/2025 11:09 AM EDTAssociated Problem(s): 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) compensated [facility] lasix * Berenice Dallas DO - 02/18/2025 11:09 AM EDTAssociated Problem(s): Paroxysmal A-fib (HCC) [facility] meds Hold Eliquis until ortho interventions * Berenice Dallas DO - 02/18/2025 11:09 AM EDTAssociated Problem(s): BPH (benign prostatic hyperplasia) [facility] flomax * Berenice Dallas DO - 02/18/2025 11:09 AM EDT PROGRESS NOTE Handoff Completed: Yes Disposition Perspective - Medically ready for discharge: No Anticipated ready for discharge timeframe?: 2-3 days Ready for discharge when / if?: aspiration, placement Admitted on 02/16/2025: with: Estimated Date of Discharge: 02/20/2025 Assessment/Plan: Assessment & Plan 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 PRN pain control; Hold eliquis until aspiration hold Abx until aspiration Ortho consult; discussed with Dr. Jacome IR consulted for aspration Mri R hip ordered NIGHAT (obstructive sleep apnea) CPAP at night RT Dyslipidemia [facility] Lipitor Major neurocognitive disorder (HCC) AAO, ?dementia; ?able to take care of self? [facility] Donepazil Mood disorder [facility] Cymbalta Type 2 diabetes mellitus with diabetic polyneuropathy, without long-term current use of insulin (HCC) Check A1C in am. 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 Environmental allergies Continue Flonase Hyperkalemia Resolved Rash monitor for now Dysphagia Speech isaac, recs reviewed 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) compensated IMAGERY INTELLIGENCE lasix Paroxysmal A-fib (HCC) IMAGERY INTELLIGENCE meds Hold Eliquis until ortho interventions BPH (benign prostatic hyperplasia) IMAGERY INTELLIGENCE flomax Dispo: Continue current care Most recent EKG, telemetry tracings, Imaging, and labs independently reviewed and interpreted by bruno 02/18/2025 VTE Prophylaxis: Active Hospital Problems Diagnosis *Right hip pain NIGHAT (obstructive sleep apnea) Dyslipidemia Major neurocognitive disorder (HCC) Mood disorder Type 2 diabetes mellitus with diabetic polyneuropathy, without long-term current use of insulin (HCC) Environmental allergies Hyperkalemia Rash Dysphagia 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) Paroxysmal A-fib (HCC) BPH (benign prostatic hyperplasia) Subjective: Seen and examined in am. Denies fever, chills, SOB, CP, NVDC. Discussed aspiration, MRI, placement.patient prefers home. Objective: BP 90/66 (BP Location: Right arm, Patient Position: Semi Fowlers) Pulse 77 Temp 97.4 ??F (36.3 ??C) (Oral) Resp 18 Ht 6' 4 (1.93 m) Wt 251 lb 12.3 oz (114.2 kg) SpO2 97% BMI 30.65 kg/m?? I/O last 3 completed shifts: In: 1080 [P.O.:1080] Out: - Weight: 251 lb 12.3 oz (114.2 kg) Constitutional: AAOx3, nad, mild cognitive deficit? Cardiovascular: RRR Pulmonary/Chest: CTAB Abdominal: Soft. NT ND Musculoskeletal: No edema. R hip effusion seems superficial Neurological: Grossly normal. Skin: Skin is warm and dry. Labs: Laboratory data and diagnostic testing reviewed 02/18/25. Part of this note was dictated using voice recognition technology and may include unintended spelling errors. 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 PRN pain control; hold Abx until aspiration Ortho consult; discussed * Berenice Dallas DO - 02/17/2025 7:05 PM EDTAssociated Problem(s): NIGHAT (obstructive sleep apnea) CPAP at night RT * Berenice Dallas DO - 02/17/2025 7:05 PM EDTAssociated Problem(s): Dyslipidemia IMAGERY INTELLIGENCE Lipitor * Berenice Dallas DO - 02/17/2025 7:05 PM EDTAssociated Problem(s): Major neurocognitive disorder (HCC) AAO, ?dementia; ?able to take care of self? IMAGERY INTELLIGENCE Donepazil * Berenice Dallas DO - 02/17/2025 7:05 PM EDTAssociated Problem(s): Mood disorder IMAGERY INTELLIGENCE Cymbalta * Berenice Dallas DO - 02/17/2025 7:05 PM EDTAssociated Problem(s): Type 2 diabetes mellitus with diabetic polyneuropathy, without long-term curr ent use of insulin (HCC) Check A1C in am. 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 * Berenice Dallas DO - 02/17/2025 7:05 PM EDTAssociated Problem(s): Hyperkalemia Resolved * Berenice Dallas DO - 02/17/2025 7:05 PM EDTAssociated Problem(s): Rash monitor for now * Berenice Dallas DO - 02/17/2025 7:05 PM EDTAssociated Problem(s): Dysphagia Speech eval, recs reviewed * Berenice Dallas DO - 02/17/2025 7:05 PM EDTAssociated Problem(s): 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) compensated IMAGERY INTELLIGENCE lasix * Berenice Dallas DO - 02/17/2025 7:05 PM EDTAssociated Problem(s): Paroxysmal A-fib (HCC) IMAGERY INTELLIGENCE meds Hold Eliquis until ortho interventions * Berenice Dallas DO - 02/17/2025 7:05 PM EDTAssociated Problem(s): BPH (benign prostatic hyperplasia) IMAGERY INTELLIGENCE flomax * Tita Marmolejo, Clerical Staff - 02/17/2025 3:05 PM EDT 02/17/2025: Discharge retail planning manager met with Patient to provide a Repisodic list for Long Term Facility at the direction of the Front Desk Lead. Patient plan to review list and contact their CC with their choices. Contact information provided to patient/family on how to reach team if they have any questions. Patient also wanted me to send the list to his son. List sent electronically. Will follow for facility selection. * Tita Marmolejo, Clerical Staff - 02/17/2025 2:45 PM EDT Followed up with patient on their request for additional information on Advance Directives. SHARON * Kayla Phillips, PT - 02/17/2025 12:22 PM EDT 02/17/25 1213 PT Subjective Note Type Evaluation Patient Room/Unit 459 PT Subjective Comments #1 pt hyperfixated on attempting to have a BM; nurse present to assist pt into the shower as he has been digitally removing his stool from his rectum. Discharge Information Evaluation to serve as discharge summary if no further treatment provided before the facility discharge Admitting Diagnosis R hip pain Past Med Hx PMH reviewed Pain Screening Additional Comments trying to have a BM Cognition Orientation Intact Arousal Normal Safety Awareness Impaired Safety Awareness Impairment Severe Impairments: Needs >75% input/direction from therapist in order to identify and maintain safety issues and maintain overall safety. Affect/Ability to cope Impaired Communication Impaired Additional comments EMMONAK; limited exam due to hyperfixation on BM at this time Precautions Therapy Precautions Yes Precaution Info Given Yes;To use call light to request assistance with all mobility Home Living/Prior Function Additional Comments pt lives alone; limited history at this time Coord/Sensation Assessed Grossly Intact/Normal Perception Perception Grossly intact/normal Observation Presentation Patient seated edge of bed Posture tall endomorphic elderly male Observation Telemetry;Bed alarm Vitals no signs of vital distress Bed Mobility Additional Comments seated EOB Transfers Sit to Stand Contact guard assist Stand to Sit Contact guard assistance Gait Gait Contact guard assist Gait Distance (Feet) 10 Feet Assistive Device 2 Wheel walker Pattern WFL Additional Comments just to commode in bathroom to have a BM; pt having trouble with constipation and manually attempting to remove; nurse present to get pt into the shower after using commode as he has stool on his hands and body Vitals no signs of vital distress Functional Status Score (FSS-ICU) Is the patient currently in ICU? No PT/OT Mobility Documentation PT/OT Mobility Score 6 AM PAC: How much help from another person does the patient currently need... turning from your back to your side while in a flat bed without using bedrails? 3 moving from lying on your back to sitting on the side of a flat bed without using bedrails? 3 moving to and from a bed to a chair? 3 standing up from a chair using your arms (e.g. wheelchair, or bedside chair)? 3 need to walk in hospital room? 3 climbing 3-5 steps with a railing? 2 AM PAC: BASIC MOBILITY SCORING AM PAC Moblity Raw Score 17 AM PAC Mobility CMS 0-100% Functional Percentage 43.83 AM PAC Mobility CMS G Code Modifier CK Balance Sitting Balance 5/5 moves/returns trunkal midpoint in all planes > 2 inches Standing Balance 2/5 indep, requires both UE support Education Education Patient/Family Education;To use call light to request assistance with all mobility;Role of Therapy;Safety with mobility;Discharge planning;Cues for proper technique;Up with assistance only;Precautions Patient Safety Patient Safety Other (comment);Nursing notified of status (left with nurse in bathroom to finish up issues with constipation and getting a shower) Assessment Assessment Decreased gait;Decreased functional mobility;Decreased balance;Decreased ADL status;Decreased activity tolerance ;Decreased self-care transfers;Decreased high-level ADLs Prognosis Fair Rationale for Skilled Therapy Fall Risk;Balance Deficits;Not safe with independent transfers;Not safe ambulating independently Goals Patient and/or Family Goal to have a BM PT GOALS (Yes/No) Yes Add Goals Will Perform Sit to Stand Modified independent Will Ambulate With least restrictive assistive device;101-150 feet;With stand by assist;To improve functional mobility Goal Formulation With patient Time for Goal Achievement/Duration of Treatment 14 days Plan Treatment/Interventions Gait training;Bed mobility;Balance training;ADL retraining;Functional transfer training;LE strengthening/ROM;Increase activity tolerance PT Frequency 3-5x/week Recommendation PT Recommendation Moderate frequency, moderate intensity five days a week therapy recommended. Additional PT discharge information based on limited assessment at this time due to having a BM, rec SNF. May do better when pt is not attempting to digitally remove stool from rectum. Time In / Time Out 1155/1211 IP PT Evaluation Minutes 8 IP PT Treatment Minutes 8 The total time spent caring for this patient included but was not limited to medical record review;hands-on treatment;communication and education with patient and/or family/caregiver;clinical judgement necessary for treatment planning for next session;communication with nursing and/or care coordinat ion/social work regarding patient status and discharge planning * Berenice Dallas DO - 02/17/2025 8:50 AM EDTAssociated Problem(s): Environmental allergies Continue Flonase * Berenice Dallas DO - 02/17/2025 8:50 AM EDT PROGRESS NOTE Handoff Completed: Yes Disposition Perspective - Medically ready for discharge: No Anticipated ready for discharge timeframe?: 1-2 days Ready for discharge when / if?: clinical improvement, placement Admitted on 02/16/2025: with: Estimated Date of Discharge: 02/18/2025 Assessment/Plan: Assessment & Plan 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 PRN pain control; hold Abx until aspiration Ortho consult; discussed NIGHAT (obstructive sleep apnea) CPAP at night RT Dyslipidemia IMAGERY INTELLIGENCE Lipitor Major neurocognitive disorder (HCC) AAO, ?dementia; ?able to take care of self? IMAGERY INTELLIGENCE Donepazil Mood disorder IMAGERY INTELLIGENCE Cymbalta Type 2 diabetes mellitus with diabetic polyneuropathy, without long-term current use of insulin (HCC) Check A1C in am. 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 Environmental allergies Continue Flonase Hyperkalemia Resolved Rash monitor for now Dysphagia Speech eval, recs reviewed 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) compensated IMAGERY INTELLIGENCE lasix Paroxysmal A-fib (HCC) IMAGERY INTELLIGENCE meds Hold Eliquis until ortho interventions BPH (benign prostatic hyperplasia) IMAGERY INTELLIGENCE flomax Dispo: Continue current care Most recent EKG, telemetry tracings, Imaging, and labs independently reviewed and interpreted by bruno 02/17/2025 VTE Prophylaxis: Active Hospital Problems Diagnosis *Right hip pain NIGHAT (obstructive sleep apnea) Dyslipidemia Major neurocognitive disorder (HCC) Mood disorder Type 2 diabetes mellitus with diabetic polyneuropathy, without long-term current use of insulin (HCC) Environmental allergies Hyperkalemia Rash Dysphagia 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) Paroxysmal A-fib (HCC) BPH (benign prostatic hyperplasia) Subjective: Seen and examined in am. Denies fever, chills, SOB, CP, NVDC. Discussed ortho plan for R hip aspiration. Objective: BP 112/82 (BP Location: Right arm, Patient Position: Semi Fowlers) Pulse 87 Temp 97.6 ??F (36.4??C) (Oral) Resp 17 Ht 6' 4 (1.93 m) Wt 251 lb 12.3 oz (114.2 kg) SpO2 95% BMI 30.65 kg/m?? I/O last 3 completed shifts: In: 720 [P.O.:720] Out: 1 [Urine:1] Weight: 251 lb 12.3 oz (114.2 kg) Constitutional: AAOx3, appears stated age, resting in bed Cardiovascular: RRR Pulmonary/Chest: CTAB Abdominal: Soft. NT ND Musculoskeletal: No edema. R hip ttp Neurological: Grossly normal. Skin: Skin is warm and dry. Labs: Laboratory data and diagnostic testing reviewed 02/17/25. Part of this note was dictated using voice recognition technology and may include unintended spelling errors. Berenice Dallas DO 02/17/2025 8:50 AM * Blanca Low RN - 02/16/2025 12:28 PM EDT 02/16/25 1211 Discharge Planning Evaluation Completed by CC/SW Yes Referral Source Chart review Does patient meet high risk triggers? Age over 80;Change in baseline mobility;Active with services prior to admission IP Mental Health Referral Pending No Who you interviewed In person interview with patient Mental Status Alert and oriented Decision Maker Patient Who does pt identify as their caregiver/support person who will be their active partner in the dc planning process Pt identified caregiver/support person for dc planning process Caregiver Name son: Herve King Caregiver Does patient need data modeling architect? No Activities of Daily Living Prior to Admission Independent with ADLS;Independent with Homemaking;Needs assistance with mobility DME Used at Home Walker;Rollator;Oxygen Walker type 2 wheel;4 wheel Is portable tank at hospital? No (Oxygen only used at night) Patient's Living Arrangments Prior to Admission? Private Residence Alone Support Systems Children;Family Members Is PCP listed on facesheet correct? No Who does patient report as PCP? Dr Choi Quality of Support System Adequate Follow Up Assigned To: Referral not needed concern identified and addressed by Front Desk Lead APS/CPS Report Made No Anticipated post-acute care needs Home with OP Follow Up Discussed discharge plans with Patient/Family/Caregiver/Support Person Yes, Discussed with patient Discussed discharge plans with Care Team at [facility] Yes, with nurse in attendance;Yes, with doctor in attendance Patient's goals for recovery Return to Prior Level of Functioning Actual Discharge Plan 02-16-2025 Initial screen complete: CC met with patient to discuss discharge plan. Patient states that he lives alone and his plan is to return home at discharge. Patient has a walker, rollator and oxygen at night. Pt's PCP is Dr Choi and he utilizes [facility] CC awaiting ortho consult and PT eval to further assist with discharge planning. * Evonne Marrufo CCC-POLITICAL CONSULTANT - 02/16/2025 11:35 AM EDT 02/16/25 1135 Clinical Swallow Evaluation (CSE) Patient Seen Today? Attempted Note Type Evaluation Attempt Therapy delay reason Unavailable due to tests/procedures (NPO d/t ortho consult) * Mason Killian, PT - 02/16/2025 11:25 AM EDT 02/16/25 1124 PT Subjective Note Type Chart Review Patient Room/Unit 459 PT Subjective Comments #1 patient at this time is awaiting ortho consult for unknown R hip pain,. please consult PT when more information is available and we know what weight bearing status * Sameer Ortega MD - 02/16/2025 9:49 AM EDTAssociated Problem(s): Right hip pain Source of pain is unclear. Has had poor result since original surgery. He has had some workup done with imaging and fluid aspiration in the past but I don't have any records on any of that at this time. Will try to get old records. Ask Ortho to see. Check ESR and CRP. Will need aspiration * Sameer Ortega MD - 02/16/2025 9:49 AM EDTAssociated Problem(s): NIGHAT (obstructive sleep apnea) CPAP at hs * Sameer Ortega MD - 02/16/2025 9:49 AM EDTAssociated Problem(s): Dyslipidemia statin * Sameer Ortega MD - 02/16/2025 9:49 AM EDTAssociated Problem(s): Major neurocognitive disorder (HCC) pt oriented but has no idea about his meds or medical issues. He lives alone but he tells me his family would prefer he be in an ECF * Sameer Ortega MD - 02/16/2025 9:49 AM EDTAssociated Problem(s): Mood disorder Continue SNRI * Sameer Ortega MD - 02/16/2025 9:49 AM EDTAssociated Problem(s): Type 2 diabetes mellitus with diabetic polyneuropathy, without long-term current use of insulin (HCC) Check A1C in am. Hold metformin * Sameer Ortega MD - 02/16/2025 9:49 AM EDTAssociated Problem(s): Environmental allergies Continue Flonase * Sameer Ortega MD - 02/16/2025 9:49 AM EDTAssociated Problem(s): Hyperkalemia Mild recheck in am tomorrow. Hold metformin for now * Sameer Ortega MD - 02/16/2025 9:49 AM EDTAssociated Problem(s): Rash Offer topical steroids * Sameer Ortega MD - 02/16/2025 9:49 AM EDTAssociated Problem(s): Dysphagia Ask POLITICAL CONSULTANT to see. This was mentioned to the RN after I had lef the room. He has some trouble swallowing about once a day. * Sameer Ortega MD - 02/16/2025 9:49 AM EDTAssociated Problem(s): 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) Appears compensated. No plans to address specifically * Sameer Ortega MD - 02/16/2025 9:49 AM EDTAssociated Problem(s): Paroxysmal A- fib (HCC) Bal[facility]ir [facility]> has been on amio in the past but not clear he is taking that now. On tele and presentlyin sinus rhythm * Sameer Ortega MD - 02/16/2025 9:49 AM EDTAssociated Problem(s): BPH (benign prostatic hyperplasia) Continue Flomax documented in this encounter H&P Notes * Sameer Ortega MD - 02/16/2025 8:37 AM EDT Images from the original note were not included. [facility] History and Physical Name: Steve King ADDRESS: : 1935 AGE: 89 y.o. Admitting Physician: Sameer Ortega MD PCP:No primary care provider on file. Date of Admit: 02/16/2025 SUBJECTIVE Chief Complaint: right hip pain History of Present Illness:back in in May he had a hip operation. He has had nothing but trouble since then. About 6 mos after the surgery he got a knot there. It was about 2cm in thickness and 15-20 cm in length. It wasn't painful at first but became painful int he ;last 6-8 mos. Int he last couple days it got worse and he was not able to walk. He is walking with a walker. He got his sone to take him to the ED. The area has been red for 3 years - no color change since th eoperation. He has been taking apap for a while. He has been favoring his left leg for mobility. Opn Sat his right hgip gave out. He caught himself with the walker but strained the left hip so it had been hiurting butis better today. Has aspiration of his hip about a year ago No past medical history on file. No past surgical history on file. Medications Prior to Admission Medication Sig Dispense Refill Last Dose/Taking apixaban (ELIQUIS) 5 mg Oral Tablet Take 5 mg by mouth 2 times daily. Taking atorvastatin (LIPITOR) 40 mg Oral Tablet Take 40 mg by mouth daily. Taking calcium carbonate-vitamin D3 250 mg-3.125 mcg (125 unit) Oral Tablet Take 1 Tablet by mouth daily. Taking donepeziL (ARICEPT) 5 mg Oral Tablet Take 5 mg by mouth nightly. Taking DULoxetine (CYMBALTA) 60 mg Oral Capsule, Delayed Release(E.C.) Take 60 mg by mouth daily. Taking fluticasone propionate (FLONASE) 50 mcg/actuation Nasl [place], Suspension 2 Sprays by Nasal route 2 times daily as needed for Allergies. Taking fUROsemide (LASIX) 20 mg Oral Tablet Take 20 mg by mouth daily. Taking metFORMIN (GLUCOPHAGE) 500 mg Oral Tablet Take 500 mg by mouth 2 times daily. Taking polyvinyl alcohol (LIQUIFILM TEARS) 1.4 % Opht Drops Place 1 Drop into both eyes as needed for Dry Eyes. Taking tamsulosin (FLOMAX) 0.4 mg Oral Capsule Take 0.8 mg by mouth daily. Taking Allergies Allergen Reactions Tetanus Vaccines And Toxoid Swelling Pt also states blisters with swelling Travel Screening No screening recorded since 02/15/25 0049 Travel History Travel since 01/16/25 No documented travel since 01/16/25 Social History Socioeconomic History Marital status: Unknown No Tob or EtOH Fam Hx: Mom at 92 from natural causes Dad from cerebral hemorrhage at 55 Review of Systems: Review of Systems Constitutional: Negative for chills and fever. HENT: Negative for congestion and sore throat. Eyes: Negative for blurred vision and double vision. Respiratory: Negative for cough and shortness of breath. Cardiovascular: Negative for chest pain and palpitations. Gastrointestinal: Negative for diarrhea and vomiting. Genitourinary: Negative for dysuria and hematuria. Musculoskeletal: Negative for joint pain and myalgias. Except as noted in hpi Skin: Negative for itching and rash. Neurological: Positive for headaches (cervicogenic). Negative for tingling, sensory change and focal weakness. Endo/Heme/Allergies: Positive for environmental allergies (uses Flonase). Does not bruise/bleed easily. OBJECTIVE: Physical Exam: Patient Vitals for the past 24 hrs: BP Temp Temp src Pulse Resp SpO2 Height Weight 02/16/25 0518 -- -- -- 73 -- -- -- -- 02/16/25 0344 -- -- -- 73 -- -- -- -- 02/16/25 0306 98/56 98.1 ??F (36.7 ??C) Oral 72 18 98 % -- -- 02/16/25 0300 -- -- -- 70 -- -- -- -- 02/16/25 0100 102/63 98.3 ??F (36.8 ??C) Oral 74 18 100 % 6' 4 (1.93 m) 251 lb 12.3 oz (114.2 kg) Weight: 251 lb 12.3 oz (114.2 kg) Physical Exam Constitutional: General: He is not in acute distress. Appearance: Normal appearance. He is not ill-appearing or toxic-appearing. HENT: Head: Normocephalic and atraumatic. Right Ear: External ear normal. Left Ear: External ear normal. Mouth/Throat: Mouth: Mucous membranes are moist. Pharynx: Oropharynx is clear. Eyes: Extraocular Movements: Extraocular movements intact. Conjunctiva/sclera: Conjunctivae normal. Pupils: Pupils are equal, round, and reactive to light. Cardiovascular: Rate and Rhythm: Normal rate and regular rhythm. Pulses: Normal pulses. Heart sounds: Normal heart sounds. No murmur heard. Pulmonary: Effort: Pulmonary effort is normal. Breath sounds: Normal breath sounds. Abdominal: General: Abdomen is flat. Bowel sounds are normal. There is no distension. Palpations: Abdomen is soft. There is no mass. Tenderness: There is no abdominal tenderness. Musculoskeletal: General: Swelling (right hip with large fluctuant nodule overlyuing the lateral hip under the old incision. there are point of tenderness) present. Cervical back: Normal range of motion. Right lower leg: No edema. Left lower leg: No edema. Skin: General: Skin is warm and dry. Findings: Rash (erythematous, scaly, fairly well defined polymorphic rash on the RLE) present. No erythema. Neurological: General: No focal deficit present. Mental Status: He is alert and oriented to person, place, and time. Psychiatric: Mood and Affect: Mood normal. Judgment: Judgment normal. Labs: CBC: Lab Results Component Value Date WBC 7.5 02/16/2025 RBC 4.04 (L) 02/16/2025 HGB 12.7 (L) 02/16/2025 HCT 39.4 (L) 02/16/2025 MCV 97.5 02/16/2025 MCHC 32.2 02/16/2025 RDW 13.8 02/16/2025 MPV 9.6 02/16/2025 BMP: Lab Results Component Value Date NA 133 (L) 02/16/2025 K 5.1 (H) 02/16/2025 CL 96 (L) 02/16/2025 CO2 22 02/16/2025 BUN 52 (H) 02/16/2025 CREATININE 1.08 02/16/2025 CALCIUM 9.2 02/16/2025 GLU 211 (H) 02/16/2025 Hepatic: No results found for: ALKPHOS , ALT , AST , PROT , LABBILI , BILIDIR , IBILI , LABALBU No results found for: AMYLASE , LIPASE U/A:No results found for: SPECGRAV , UAPROTEIN , BLOODU , NITRITE , LEUKOCYTESUR , WBCUA , RBCUA Coagulation: No results found for: PT , INR , APTT Cardiac markers: No results found for: CKMB , MYOGLOBIN ABGs:No results found for: PH , PCO2 , PO2 , HCO3 , TCO2 , BASEEXCESS , O2SAT , INSPIREDO2 , SPECIMENTYPE Radiology: No results found. No results found for this or any previous visit. Assessment: Assessment & Plan Right hip pain Source of pain is unclear. Has had poor result since original surgery. He has had some workup done with imaging and fluid aspiration in the past but I don't have any records on any of that at this time. Will try to get old records. Ask Ortho to see. Check ESR and CRP. Will need aspiration NIGHAT (obstructive sleep apnea) CPAP at hs Dyslipidemia statin Major neurocognitive disorder (HCC) pt oriented but has no idea about his meds or medical issues. He lives alone but he tells me his family would prefer he be in an ECF Mood disorder Continue SNRI Type 2 diabetes mellitus with diabetic polyneuropathy, without long-term current use of insulin (HCC) Check A1C in am. Hold metformin Environmental allergies Continue Flonase Hyperkalemia Mild recheck in am tomorrow. Hold metformin for now Rash Offer topical steroids Dysphagia Ask POLITICAL CONSULTANT to see. This was mentioned to the RN after I had lef the room. He has some trouble swallowing about once a day. 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) Appears compensated. No plans to address specifically Paroxysmal A-fib (HCC) [facility]> has been on amio in the past but not clear he is taking that now. On tele and presentlyin sinus rhythm BPH (benign prostatic hyperplasia) Continue Flomax Sameer Ortega MD 02/16/2025 8:37 AM Addn: records obtained from [facility]. Patient had Hip replacement about 2 years ago. He had MRSA following surgery; it sounds like he was treated for 6 weeks with IV Abx. CT with complex cyst surrounding the hip prosthesis Has h/o HFmrEF, afib, BPH and other issues. Note addended above D/w Ortho this am as well documented in this encounter Procedure Notes * Jocelynn Hodges RN - 02/26/2025 10:49 AM EDTAssociated Order(s): BEDSIDE PICC INSERTION (PICC TEAM RN) Procedure(s): BEDSIDE PICC INSERTION (PICC TEAM RN) Procedure was performed by Sulma Andrew RN VAT. Patient was informed of risks and benefit of procedure and verbal consent was given. Ultrasound interrogation performed of the right basilic vein. It is shown to be patent and compressible. This was documented with a permanent image. The catheter was placed using all elements of maximal sterile barrier technique as well as all elements of sterile ultrasound technique. Following sterile skin preparation and local anesthesia under ultrasound guidance the vein was punctured. This allowed guide wire and introducer sheath insertion.Guidewire was removed and verified by second individual. Through the introducer sheath a PICC was inserted. Unable to get tip confirmation with sammie due to patient history of afib. CXR ordered for tip confirmation prior to releasing line. Catheter was cut to _43___ cm with internal measurement at _43__ cm. Catheter aspirated and flushed freely. The catheter was secured to the skin surface. Sterile CHG dressing was applied. Patient tolerated the procedure well. * Mason Jacome DO - 02/22/2025 10:08 AM EDT Images from the original note were not included. Hip DAIR PREOPERATIVE DIAGNOSIS: right hip prosthetic joint infection. POSTOPERATIVE DIAGNOSIS: Same PROCEDURES PERFORMED: right hip arthrotomy with extensive debridement and head and liner exchange for infection (CPT 77001 - 22 modifier for increased complexity) right hip surgical scar revision right hip placement of negative pressure wound dressing ANESTHESIA: General anesthesia ANTIBIOTIC: On scheduled antibiotics, DOSING PER NURSING CHART SURGEON: Mason Jacome DO Landscape Photographer: leon lamb. Needed for reduction, limb manipulation, tissue retraction, and wound closure as indicated. IMPLANTS: Implant Name Model No. Serial No. Lot No. Director Of Rooms LRB No. Used Action ALTRX +4 10D [id number] Right 1 Implanted HEAD FEMORAL CERAMIC TS DELTA 08/30 40MM +1.5 - [id number] J&J:DEPUY:DEPUY ORTHOPAEDICS Right 1 Implanted SPECIMENS: Deep hip#1,#2,#3 COMPLICATIONS: None POSTOPERATIVE CONDITION: Stable to PACU. ESTIMATED BLOOD LOSS: 200 cc * No blood loss amount entered * HISTORY OF PRESENT ILLNESS: The patient is a 89 y.o. male who developed right hip prosthetic joint infection. He is 89 years old, we did discuss both 2 stage exchange as well as debridement with implant retention and modular component exchange with postop chronic suppression. I think given his age there is severe morbidity and risk for bony destruction with 2 stage exchange so we did elect for implant retention and chronic suppression. The patient was consented for the above-noted procedure andagreed to proceed. All questions were answered. The patient was seen in the pre-operative holding area, the operative extremity was marked. Appropriate pre-operative antibiotics were given. RISKS OF SURGERY: I had an extensive conversation with the patient and/or family regarding the risks, benefits, potential complication and reasonable expectations of the planned procedure. Informed verbal consent was given under no distress. We had ample opportunities for questions regarding the usual outcomes. Risks specifically discussed, but not limited to the following, include possible: bleeding, blood clots,anesthesia complications, nerve and blood vessel injury, chronic infection additional procedures oramputation, instability, limb length discrepancy, hardware breakage or failure (if used), need for additional surgery, and post-operative stiffness. In addition, in rare cases the patient may have loss of a limb or even . No guarantee of any particular results were given. The patient understands that in some cases surgery can make them worse. The patient and family desired that we proceed atthe soonest possible time with the operation and expressed clear understanding. DETAILS OF PROCEDURE: The patient was taken back to operating room, anesthetic was induced and the patient was positioned . All bony prominences were appropriately padded. The extremity was sterilelyprepped and double-draped as described by [facility] division. A formal time-out was performed before the start of the case, verifying the appropriate surgical site, procedure, antibiotic administration. I first made a small rent and introduced the suction device to evacuate much of the infected tissue. I sharply incised the prior incision down to the IT band. At this time I revised the scar in the following way: I made two parallel incisions around the scar, developed a deep tissue plane sharply, and excised the previous scar. I then used the freshened edges of the tissue to revise the scar at the end of the case. We then split the IT band and gluteus max fibers proximally to expose the bursa deep. The inflamed/infected trochanteric bursa was excised. The scarred external rotators were released with Bovie electrocautery and an L-shaped capsulotomy was made along the superior neck along the trunion and released off the back of the femur. The corner of the capsulotomy was tagged for later repair. The hip wasgently dislocated. A Chamorro elevator was used to break the Gallagher taper and remove the femoral head. Retractors were placed to expose the socket. Intracapsular scar tissue was debrided circumferentially. Osteotomes was placed at the interface between the polyethylene liner and acetabular cup to help lo osen it. Small curved osteotomes were used to remove the liner its entirety. The acetabular cup and femoral stem were checked and no signs of loosening. I then sharply debridedskin, subcutaneous tissue, muscle, fascia that appeared devitalized or infected. Several deep samples were sent for culture and pathology. We then soaked the wound with dilute Betadine for 3 minutes.This was then irrigated out with a Pulsavac stone grader. We then irrigated with 1 L of biasurge solution through the wound. Finally we irrigated 3 L of normal saline through the wound. Drapes and gloves were then changed. A new acetabular liner was placed and impacted in place. Given the revision surgery we did elect for a +4 10 degree liner which I dialed posterior inferior. A new femoral head size 40 mm +1.5 was then impacted into place. The hip was gently reduced. It was stable throughout range of motion. The limb lengths were grossly equal. I then repaired the capsule with #5 fiber wire. The IT band was repaired with 1 Vicryl. Subcutaneous tissue was closed with 2-0 PDS. Skin was closed with roger. A Prevena negative pressure wound dressing was applied to good suction. The patient was returned to PACU in stable condition with good perfusion of the operative extremity. There were no identified interoperative complications. At the end of the case the instrument count was correct. A modifier 22 code was justified for this case as there was increased complexity and risk associated with this case compared to a standard hip arthrotomy procedure. In addition to the hip arthrotomy I spent approximately 45 minutes debriding soft tissue to eradicate infection. In addition I also remove the head and liner replacing it with new components. Revising this hardware carries additional risk with the procedure and adds to the operative time thus justifying an increased complexity modifier. Strict posterior hip precautions WBAT RLE Hip abduction pillow in bed Resume half dose eliquis POD1 until POD14 ID consult, appreciate recs, will plan for penitentiary oral suppression Mason [facility] DO [facility] Office: [phone], [phone] * Amanda Jones PA-C - 02/19/2025 1:00 PM EDT Images from the original note were not included. Dr. Marrufo performed right hip bursa aspiration. 150 cc bloody/meza joint fluid removed. Full dictation under imaging- chart review. Patient tolerated procedure well. Nothing more per IR at this time. Plan per Dr. Naa carlos et al. Amanda Jones PA-C documented in this encounter Consult Notes * Ida Henson MD - 03/02/2025 4:55 PM EDTAssociated Order(s): IP CONSULT TO PULMONOLOGY Images from the original note were not included. INITIAL CONSULT 03/02/2025 Ida Henson MD HISTORY OF PRESENT ILLNESS Chief Complaint: Right hip pain Reason for consult: PE, discussed with IR and DR Fernandez Present Illness 89 y.o. male with multiple medical problems including but not limited to right hip pain admitted on02/16 and found to have a right hip effusion with a history of MEKA, MRI showed possible abscess IR aspirated culture was positive for MSSA, antibiotic management per ID. With a goal of cefazolin x 6 weeks. Obviously patient had worsening shortness of breath a CT scan of the chest showed pulmonary emboli in the left lower lobe subsegmental with elevated BNP slightly elevated troponin, paradoxical movement of the septum (in presence of bundle branch block) with the patient's EF of 20% and elevated pulmonary artery pressure (previously 25% with no pulmonary artery pressure) In addition to shortness of breath pulmonary were consulted for our opinion as well as management in addition for patient was pulmonary emboli and pleural effusion At present patient is on 2 L nasal cannula saturation 95% afebrile temperature is 97.7 with a creatinine of 0.86 and hemoglobin of 9.3 and white blood cells of 9.5 No nausea vomiting diarrhea, pending studies for lower extremity duplex By evaluating patient Family pulmonary history: Non-contributory History reviewed. No pertinent past medical history. Past Surgical History: Procedure Laterality Date BEDSIDE PICC INSERTION (PICC TEAM RN) 02/26/2025 TOTAL HIP ARTHROPLASTY Right 02/22/2025 Right hip Incision & Drainage with head/liner exchange; Surgeon: Mason Jacome DO; Location:[facility] MAIN OR; Service: Orthopedics Allergies Allergen Reactions Tetanus Vaccines And Toxoid Swelling Pt also states blisters with swelling Current Meds apixaban 10 mg Oral BID Followed by [START ON 03/09/2025] apixaban 5 mg Oral BID aspirin 81 mg Oral Daily atorvastatin 40 mg Oral Daily bisacodyL 10 mg Oral BID Or bisacodyL 10 mg Rectal BID calcium carbonate-vitamin D 1 Tablet Oral Daily WM ceFAZolin 1 g Intravenous 3 times per day docusate sodium 100 mg Oral BID donepeziL 5 mg Oral Nightly DULoxetine 60 mg Oral Daily insulin aspart U-100 1-15 Units Subcutaneous QID WM insulin glargine 8 Units Subcutaneous BID (Insulin) magnesium hydroxide 30 mL Oral Daily miconazole Topical BID midodrine 7.5 mg Oral TID WM mupirocin Nasal BID pantoprazole 40 mg Oral Daily polyethylene glycol 17 g Oral Daily senna 17.2 mg Oral BID sodium chloride 0.9% 10 mL Intravenous 3 times per day sodium chloride 0.9% Intravenous 2 times per day tamsulosin 0.4 mg Oral Daily tobramycin-dexamethasone Right Eye TID PRN Meds acetaminophen, alteplase, aluminum & magnesium hydroxide-simethicone, dextrose, fluticasone propionate, glucagon AND sterile water, melatonin, oxyCODONE, polyvinyl alcohol, sodium chloride 0.9 % 250 mL IV bolus, sodium chloride 0.9%, sodium chloride 0.9%, sodium chloride 0.9%, sodium chloride 0.9% Infusions Family history No family history on file. Social History Steve Review of Systems Review of systems including general/constitutional, visual, auditory, cardiovascular, respiratory, endocrine, hematologic, GI, , neurological, musculoskeletal and psychiatric was negative with the exception of the positives mentioned in the HPI EXAMINATION VS BP: 90/53 Temp: 97.7 ??F (36.5 ??C) SpO2: 95 % HR: 78 Resp: 17 O2 Device: Nasal cannula O2 Flow Rate (L/min): 2 lpm Weight at Admission: 02/16/2025 251 lb 12.3 oz (114.2 kg) Wt Readings from Last 2 Encounters: 03/02/25 285 lb 3.2 oz (129.4 kg) I/Os Intake/Output Summary (Last 24 hours) at 03/02/2025 1655 Last data filed at 03/02/2025 1537 Gross per 24 hour Intake 600 ml Output 2100 ml Net -1500 ml General appearance: Chronically ill-appearing, Overweight in no acute distress, while on O2 supplementation. Head: normocephalic and atraumatic Eyes: pupils equal round and reactive to light and sclera anicteric ENT: mucous membranes moist, oral hygiene is good Neck/Lymphatic: supple, no adenopathy, and no thyromegaly Respiratory System: Decreased breath sounds in the bases few rhonchi from the bases Cardiovascular: Irregular positive systolic murmur at the apex as well as at the right border sternal Gastrointestinal: soft, nontender, nondistended, no mass, and no rigidity or gross organomegaly Musculoskeletal: +1/2 edema Neurological: Alert, non-focal and following simple commands Dermatological: Normal DATA REVIEWED I have personally reviewed the following data: Lab Results Component Value Date/Time GLU 78 03/02/2025 06:18 AM BUN 15 03/02/2025 06:18 AM CREATININE 0.86 03/02/2025 06:18 AM NA 134 (L) 03/02/2025 06:18 AM K 4.2 03/02/2025 06:18 AM CL 101 03/02/2025 06:18 AM CO2 23 03/02/2025 06:18 AM CALCIUM 8.0 (L) 03/02/2025 06:18 AM MG 2.0 03/01/2025 09:31 AM PHOS 2.5 03/01/2025 09:31 AM Recent Labs 02/27/25 0902 02/27/25 1721 02/28/25 1700 03/01/25 0931 03/02/25 0618 WBC 7.5 -- -- 7.7 9.5 HGB 9.9* < > 9.7* 11.6* 9.3* HCT 30.3* < > 30.5* 35.5* 29.0* PLT 266 -- -- 252 280 < > = values in this interval not displayed. Results for orders placed or performed during the hospital encounter of 02/16/25 (from the past 2 weeks) WOUND CULTURE (STAIN INCLUDED) Collection Time: 02/19/25 12:43 PM Specimen: Hip, Right; Aspirate Result Value Ref Range Culture Positive Growth (A) Culture Moderate growth of Staphylococcus aureus PBP2a test Negative Stain Moderate WBCs Stain No organisms seen Susceptibility Staphylococcus aureus - SUSCEPTIBILITY RESULT* Ampicillin Cefazolin Ceftaroline Ceftriaxone Chloramphenicol <=8 Susceptible ug/mL Ciprofloxacin >2 Resistant ug/mL Clindamycin <=0.25 Susceptible ug/mL Daptomycin Erythromycin <=0.25 Susceptible ug/mL Gentamicin 4 Susceptible ug/mL Gentamicin synergy Levofloxacin >4 Resistant ug/mL Linezolid Moxifloxacin 2 Resistant ug/mL Nitrofurantoin Oxacillin <=0.25 Susceptible ug/mL Penicillin Rifampin <=1 Susceptible ug/mL Streptomycin synergy Synercid Tetracycline <=2 Susceptible ug/mL Tigecycline Trimethoprim/Sulfamethoxazole <=0.5/9.5 Susceptible ug/mL Vancomycin 1 Susceptible ug/mL * Rifampin and Gentamicin should not be used alone for antimicrobial therapy. For methicillin resistant staphylococci, ciprofloxacin should also not be used alone. ANAEROBIC CULTURE (NO STAIN) Collection Time: 02/19/25 12:43 PM Specimen: Hip, Right; Aspirate Result Value Ref Range Culture No anaerobic growth at 5 days. FUNGUS STAIN (STAIN ONLY) Collection Time: 02/19/25 12:43 PM Specimen: Hip, Right; Aspirate Result Value Ref Range Fungal Stain No yeast or fungal elements seen. No yeast or fungal elements seen. ACID FAST BACILLI CULTURE AND SMEAR (STAIN INCLUDED) Collection Time: 02/19/25 12:43 PM Specimen: Hip, Right; Aspirate Result Value Ref Range AFB Stain SEE NOTE AFB Culture SEE NOTE ANAEROBIC CULTURE (NO STAIN) Collection Time: 02/22/25 9:03 AM Specimen: Hip, Right; Tissue Result Value Ref Range Culture No anaerobic growth at 5 days. WOUND CULTURE (STAIN INCLUDED) Collection Time: 02/22/25 9:03 AM Specimen: Hip, Right; Tissue Result Value Ref Range Culture No growth at 94 hours. Stain Moderate RBCs Stain Rare WBCs Stain No organisms seen FUNGUS CULTURE (NO STAIN) Collection Time: 02/22/25 9:03 AM Specimen: Hip, Right; Tissue Result Value Ref Range Culture No growth of fungus at 5 days. ANAEROBIC CULTURE (NO STAIN) Collection Time: 02/22/25 9:05 AM Specimen: Hip, Right; Tissue Result Value Ref Range Culture No anaerobic growth at 5 days. WOUND CULTURE (STAIN INCLUDED) Collection Time: 02/22/25 9:05 AM Specimen: Hip, Right; Tissue Result Value Ref Range Culture No growth at 94 hours. Stain Few RBCs Stain No WBCs seen Stain No organisms seen FUNGUS CULTURE (NO STAIN) Collection Time: 02/22/25 9:05 AM Specimen: Hip, Right; Tissue Result Value Ref Range Culture No growth of fungus at 5 days. ANAEROBIC CULTURE (NO STAIN) Collection Time: 02/22/25 9:05 AM Specimen: Hip, Right; Tissue Result Value Ref Range Culture No anaerobic growth at 5 days. WOUND CULTURE (STAIN INCLUDED) Collection Time: 02/22/25 9:05 AM Specimen: Hip, Right; Tissue Result Value Ref Range Culture No growth at 94 hours. Stain Few RBCs Stain No WBCs seen Stain No organisms seen FUNGUS CULTURE (NO STAIN) Collection Time: 02/22/25 9:05 AM Specimen: Hip, Right; Tissue Result Value Ref Range Culture No growth of fungus at 5 days. BLOOD CULTURE (NO STAIN) Collection Time: 02/23/25 2:55 PM Specimen: Blood, Venous Result Value Ref Range Culture Result No Growth at 120 hours. BLOOD CULTURE (NO STAIN) Collection Time: 02/23/25 4:06 PM Specimen: Blood, Venous Result Value Ref Range Culture Result No Growth at 120 hours. BLOOD CULTURE (NO STAIN) Collection Time: 03/01/25 9:59 AM Specimen: Blood, Venous Result Value Ref Range Culture Result No Growth at 24 hours. BLOOD CULTURE (NO STAIN) Collection Time: 03/01/25 10:09 AM Specimen: Blood, Venous Result Value Ref Range Culture Result No Growth at 24 hours. STAPHYLOCOCCUS AUREUS SCREEN Collection Time: 03/01/25 10:29 AM Specimen: Nares; Swab Result Value Ref Range Staph aureus PCR Detected (A) Not Detected MRSA PCR Not Detected Not Detected Pulmonary Studies: No PFT/PSG/6MWT done recently ECHO: No results found for this or any previous visit. Imaging studies: Most recent Imaging: [facility] US LOWER EXTREMITY VENOUS BILATERAL Conclusions * No evidence of deep vein thrombosis identified in the bilateral lower extremities. * No evidence of superficial thrombosis identified in the bilateral lower extremities. [place] US LOWER EXTREMITY VENOUS BILATERAL Result Date: 03/02/2025 Conclusions * No evidence of deep vein thrombosis identified in the bilateral lower extremities. * No evidence of superficial thrombosis identified in the bilateral lower extremities. CT chest: 03/01/2025 CT PULMONARY ANGIOGRAM, 03/01/2025 4:36 PM CLINICAL HISTORY: -Chest PAin r/o PE. COMPARISON: None. FINDINGS: Adequate visualization of the pulmonary arteries to the segmental/subsegmental level. Filling defects within segmental and subsegmental pulmonary arteries left lower lobe as well as the distal left lobar pulmonary artery. No radiologic findings to suggest heart strain. No aortic arch aneurysm. Moderate left and small right pleural effusions. Mildly enlarged mediastinal and right hilar lymph nodes measuring up to 1.1 cm in short axis. No pneumothorax. Mild opacities posterior lower lobes and posterior right upper lobe. Coronary artery calcification: Moderate. IMPRESSION: Positive for pulmonary emboli in the left lower lobe. Bilateral pleural effusions. Atelectasis versus infection as above. Mild adenopathy which may be reactive. Direct communication to care team using [employer] Secure Chat. Notification included: OZZIE FERNANDEZ Approximate date and time: 03/01/2025 6:07 PM Note: Radiology results need to be interpreted within a comprehensive clinical context. If you have questions about the radiology report, please contact the office of the ordering clinician. MEDICAL DECISION MAKING Assessment: Right hip pain [M25.551] Active Hospital Problems Diagnosis *Right hip pain Hypotension Other chest pain Abdominal pain Elevated d-dimer MSSA (methicillin susceptible Staphylococcus aureus) infection Conjunctival hyperemia of right eye NIGHAT (obstructive sleep apnea) Dyslipidemia Major neurocognitive disorder (HCC) Mood disorder Type 2 diabetes mellitus with diabetic polyneuropathy, without long-term current use of insulin (HCC) Environmental allergies Hyperkalemia Rash Dysphagia 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) ([facility]) Paroxysmal A-fib (HCC) BPH (benign prostatic hyperplasia) Shortness of breath is multifactorial secondary to 1. New left lower pulmonary artery subsegmental pulmonary emboli No DVT in lower extremities 2. Bilateral pleural effusions 3. Severe congestive mixed systolic/diastolic heart failure I do believe that the patient's EF 20% is overestimated 4. Severe valvular heart disease with severe aortic stenosis and severe MR 5. Pulmonary hypertension most likely in my opinion related to group 2 rather to group 4 also group III nighat Right hip infection with MSSA. Code Status: DNR I highly recommend DO NOT RESUSCITATE DO NOT INTUBATE Plan: By evaluating patient and reviewing the data I do believe that the patient has low intermediate risk PE, consulted with IR for either continuation of anticoagulation versus proceeding with a catheterdirected thrombolytic therapy I am in favor of continuation of anticoagulation as I do believe thatthe elevation of troponin and the BNP as well as the pulmonary pressure is because patient has heart failure, severe aortic stenosis, history of severe moderate mitral regurgitation..... And these are subsegmental Pes IR agrees with the plan of anticoagulation, he was on atrial fibrillation Eliquis dosing that was changed to a loading dose/pulmonary emboli dosing Patient's will need maximization of his heart failure I do not see a need for thoracentesis at thistime I do believe the patient's will need diuresis patient will need to be evaluated by cardiology/valvular structural for maximization of management and I do believe this is the main issue with patient's condition other than current infection Discussed thoroughly with the patient as well as his son Discussed with RN, RT. Care team Thank you for the opportunity to participate in the care of your patient. Ida Henson MD Pulmonary and Critical Care Medicine 255 Disclaimer- This note was completed using voice recognition software. Despite my review, it may still contain unintended errors, typos etc. Please do not hesitate to contact me through hospital paging service with questions. * Merry Fuentes PA - 03/02/2025 12:42 PM EDTAssociated Order(s): IP CONSULT TO INTERVENTIONAL RADIOLOGY Images from the original note were not included. INTERVENTIONAL RADIOLOGY PE CONSULT HPI: Patient is a 89 y/o male s/p right hip arthrotomy with extensive debridement and head and liner exchange for infection. Per chart, patient complaining of chest pain 03/01/25. CTPA ordered and with evidence of PE of left lower lobe without RV strain. PMHx significant for DM2, Afib, CHF Dyslipidemia, and s/p Total Right Hip replacement in 2021. Spoke with Dr. Henson directly via phone regarding consult for PE. Patient hemodynamically stable at this time, and on Heparin gtt. PMH: History reviewed. No pertinent past medical history. Surg Hx: Past Surgical History: Procedure Laterality Date BEDSIDE PICC INSERTION (PICC TEAM RN) 02/26/2025 TOTAL HIP ARTHROPLASTY Right 02/22/2025 Right hip Incision & Drainage with head/liner exchange; Surgeon: Mason Jacome DO; Location:[facility] MAIN OR; Service: Orthopedics Meds: Prior to Admission medications Medication Sig Start Date End Date Last Dose Authorizing Provider apixaban (ELIQUIS) 5 mg Oral Tablet Take 0.5 Tablets by mouth 2 times daily for 14 days. 02/23/25 03/09/25 Mason Jacome DO atorvastatin (LIPITOR) 40 mg Oral Tablet Take 40 mg by mouth daily. Taking Provider, Historical calcium carbonate-vitamin D3 250 mg-3.125 mcg (125 unit) Oral Tablet Take 1 Tablet by mouth daily. Taking Provider, Historical ceFAZolin in dextrose (ANCEF) 2 gram/100 mL IV Piggyback Inject 100 mL into the vein every 8 hours for 113 doses. 02/27/25 04/06/25 Katie Viera APRN donepeziL (ARICEPT) 5 mg Oral Tablet Take 5 mg by mouth nightly. Taking Provider, Historical DULoxetine (CYMBALTA) 60 mg Oral Capsule, Delayed Release(E.C.) Take 60 mg by mouth daily. Taking Provider, Historical fluticasone propionate (FLONASE) 50 mcg/actuation Nasl [place], Suspension 2 Sprays by Nasal route 2 times daily as needed for Allergies. Taking Provider, Historical fUROsemide (LASIX) 20 mg Oral Tablet Take 20 mg by mouth daily. Taking Provider, Historical metFORMIN (GLUCOPHAGE) 500 mg Oral Tablet Take 500 mg by mouth 2 times daily. Taking Provider, Historical polyvinyl alcohol (LIQUIFILM TEARS) 1.4 % Opht Drops Place 1 Drop into both eyes as needed for Dry Eyes. Taking Provider, Historical tamsulosin (FLOMAX) 0.4 mg Oral Capsule Take 0.8 mg by mouth daily. Taking Provider, Historical Vitals: Vitals: 03/02/25 1137 BP: 117/62 Pulse: 78 Resp: 17 Temp: 97.7 ??F (36.5 ??C) SpO2: 94% CTPA: CT PULMONARY ANGIOGRAM, 03/01/2025 4:36 PM PESI (or sPESI): Class V, Very High Risk: 10.0-24.5% 30-day mortality in this group. Trop: 36 -> 37 NT pro-BNP: 4,590 Lactic acid: 1.4 RV dysfunction: No RV dysfunction per CTPA, RV systolic function normal on ECHO Echo: performed 03/01/25 IMPRESSION Conclusions * Left ventricular chamber dimension is enlarged. * Left ventricular function is severely reduced with an estimated ejection fraction of 20%. * Left ventricular segmental wall motion is abnormal with paradoxical septal motion and regional variation. * The left ventricular diastolic function is consistent with grade III diastolic dysfunction / restrictive physiology (elevated left atrial pressure). * There is low flow, low gradient severe aortic valve stenosis present with a stroke volume index of 19.50 ml/m2, a peak aortic valve velocity of 307 cm/s, a mean gradient of 27 mmHg, and an aortic valve area of 0.66 cm2. Dimensionless Index 0.17. * There is moderate mitral valve regurgitation. * Right ventricular systolic function is normal. * Estimated pulmonary artery systolic pressure is 40 mmHg. LE Doppler: Ordered per chart - not yet done Contraindication to TPA: ESC classification: Intermediate-Low Risk Assessment: 89 y.o. male with ESC Intermediate-Low Risk PE. Recommend conservative management with anticoagulation alone. Plan: Patient case and imaging reviewed with Dr. Antonio. Clot appears to be subsegmental and without evidence of RH strain on CTPA or ECHO. Hemodynamically stable per chart. IR recommending conservative treatment with anticoagulation. No plans for IR procedural intervention at this time. Should patient become hemodynamically unstable or unable to tolerate anticoagulation, please re-consult IR as needed for further evaluation. Please contact IR department with questions or concerns. Signature: Merry Fuentes PA-C 03/02/25 1:51 PM * Quinten Perez MD - 03/02/2025 8:30 AM EDTAssociated Order(s): IP CONSULT TO CARDIOLOGY Heart & Vascular Consult Note PATIENT: Steve King 12 PCP: No Pcp, Per Patient Primary Associate Professor Of Library Science: Dr. Bosch at [facility] I would like to thank Ozzie Fernandez MD for requesting me to see Steve King for cardiac consultation for chest pain. History provided by: EMR, patient HPI: Steve King is a 89 y.o. male with PMHx HFrEF, ASHD s/p remote stent + Sep 2023 ANN to LAD, NIGHAT intolerant to PAP rx, PAF s/p DCCV Jun 2024, Mod , Mod to severe MR, LBBB who presented to the hospital 02/16/25 with right hip pain. 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 Yesterday a code chest pain was called, so our team is consulted. He points to his left upper abdomen when asked where he has pains. He states it is a constant pain that he has had for a couple years. It is not reproducible or pleuritic. Pain medications help. Otherwise he denies chest pain/dyspnea, dizziness, falls or syncope. CTA Chest found PE in LLL 03/01/25 Echocardiogram: 03/01/25 EF 20%, grade III DD, low flow, low gradient severe , mod MR, PASP 40 09/2024 EF 26-30%, LVH, mod , mod to severe MR, RVSP normal Coronary angiography: 09/2023 Angiographically, the patient has severe single coronary artery atherosclerosis. There is elevated filling pressure with < 20 mmHg gradient across the aortic valve suggestive of non-significant aortic stenosis. Percutaneous intervention to the left anterior descending artery was performed for dyspnea equivalent angina. EKG SR 1st degree AVB, LBBB Family History- No family history on file. Social History- Social History Tobacco Use Smoking status: Not on file Smokeless tobacco: Not on file Substance Use Topics Alcohol use: Not on file ROS: Denies: Constitutional: fever, chills, weight loss ENT: headaches, LOC, runny nose Cardiovascular: chest pain, edema, palpitations, orthopnea, dyspnea, or syncope Per HPI Past Medical History History reviewed. No pertinent past medical history. IMAGERY INTELLIGENCE Medications: Prior to Admission medications Medication Sig Start Date End Date Last Dose Authorizing Provider apixaban (ELIQUIS) 5 mg Oral Tablet Take 0.5 Tablets by mouth 2 times daily for 14 days. 02/23/25 03/09/25 Mason Jacome DO atorvastatin (LIPITOR) 40 mg Oral Tablet Take 40 mg by mouth daily. Taking Provider, Historical calcium carbonate-vitamin D3 250 mg-3.125 mcg (125 unit) Oral Tablet Take 1 Tablet by mouth daily. Taking Provider, Historical ceFAZolin in dextrose (ANCEF) 2 gram/100 mL IV Piggyback Inject 100 mL into the vein every 8 hours for 113 doses. 02/27/25 04/06/25 Katie Viera APRN donepeziL (ARICEPT) 5 mg Oral Tablet Take 5 mg by mouth nightly. Taking Provider, Historical DULoxetine (CYMBALTA) 60 mg Oral Capsule, Delayed Release(E.C.) Take 60 mg by mouth daily. Taking Provider, Historical fluticasone propionate (FLONASE) 50 mcg/actuation Nasl [place], Suspension 2 Sprays by Nasal route 2 times daily as needed for Allergies. Taking Provider, Historical fUROsemide (LASIX) 20 mg Oral Tablet Take 20 mg by mouth daily. Taking Provider, Historical metFORMIN (GLUCOPHAGE) 500 mg Oral Tablet Take 500 mg by mouth 2 times daily. Taking Provider, Historical polyvinyl alcohol (LIQUIFILM TEARS) 1.4 % Opht Drops Place 1 Drop into both eyes as needed for Dry Eyes. Taking Provider, Historical tamsulosin (FLOMAX) 0.4 mg Oral Capsule Take 0.8 mg by mouth daily. Taking Provider, Historical Inpatient Medications: atorvastatin 40 mg Oral Daily bisacodyL 10 mg Oral BID Or bisacodyL 10 mg Rectal BID calcium carbonate-vitamin D 1 Tablet Oral Daily WM ceFEPIme (MAXIPIME) IVPB 1 g Intravenous 3 times per day docusate sodium 100 mg Oral BID donepeziL 5 mg Oral Nightly DULoxetine 60 mg Oral Daily insulin aspart U-100 1-15 Units Subcutaneous QID WM insulin glargine 8 Units Subcutaneous BID (Insulin) magnesium hydroxide 30 mL Oral Daily metroNIDAZOLE 500 mg Intravenous 3 times per day miconazole Topical BID midodrine 7.5 mg Oral TID WM mupirocin Nasal BID pantoprazole 40 mg Oral Daily polyethylene glycol 17 g Oral Daily senna 17.2 mg Oral BID sodium chloride 0.9% 10 mL Intravenous 3 times per day sodium chloride 0.9% Intravenous 2 times per day tamsulosin 0.4 mg Oral Daily tobramycin-dexamethasone Right Eye TID vancomycin (VANCOCIN) IVPB (Orderable) 1,750 mg Intravenous Q18H heparin (porcine) 1,600 Units/hr (03/02/25 0801) Past Surgical History Past Surgical History: Procedure Laterality Date BEDSIDE PICC INSERTION (PICC TEAM RN) 02/26/2025 TOTAL HIP ARTHROPLASTY Right 02/22/2025 Right hip Incision & Drainage with head/liner exchange; Surgeon: Mason Jacome DO; Location:[facility] MAIN OR; Service: Orthopedics Allergy Allergies Allergen Reactions Tetanus Vaccines And Toxoid Swelling Pt also states blisters with swelling Patient Active Problem List Diagnosis Right hip pain NIGHAT (obstructive sleep apnea) Dyslipidemia Major neurocognitive disorder (HCC) Mood disorder Type 2 diabetes mellitus with diabetic polyneuropathy, without long-term current use of insulin (HCC) Environmental allergies Hyperkalemia Rash Dysphagia 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) Paroxysmal A-fib (HCC) BPH (benign prostatic hyperplasia) Right hip joint effusion MSSA (methicillin susceptible Staphylococcus aureus) infection Conjunctival hyperemia of right eye Hypotension Other chest pain Abdominal pain Elevated d-dimer BP (!) 89/63 (BP Location: Right arm, Patient Position: Semi Fowlers) Pulse 80 Temp 98.4 ??F (36.9 ??C) (Oral) Resp 17 Ht 6' 4 (1.93 m) Wt 285 lb 3.2 oz (129.4 kg) SpO2 97% BMI 34.72 kg/m?? I/O 24 hours: Intake/Output Summary (Last 24 hours) at 03/02/2025 0830 Last data filed at 03/02/2025 0357 Gross per 24 hour Intake 83 ml Output 1600 ml Net -1517 ml Diagnostic tests The most recent cardiovascular imaging studies available in [facility] EMR were reviewed at time of consultation Heart Failure Documentation NYHA Functional Class: III ACC/AHA Stage: C Is the patient prescribed an KIKE/ARB/ARNi?: No If no: Contraindication Is the patient presribed a beta cedric?: No If no: Contraindication Is the patient prescribed an aldosterone antagonist?: No If no: Contraindication Is the patient prescribed a SGLT2 inhibitor?: No If no: Contraindication Does the patient have an ICD for primary prevention of SCD if EF < 35%?: No If no: GDMT still being optimized Does the patient have ONCOLOGY TRANSPLANT NETWORK MANAGER?: No If no: GDMT still being optimized Has the patient completed Cardiac Rehab for Heart Failure?: No If no: Not a Candidate If not a candidate: Other Are there Advanced Care Planning (ACP) documents on file?: No If no, was ACP discussed with the patient?: No Will continue to optimize GDMT and device-based therapies for HFrEF.: Last Reviewed/Updated: 03/02/25 Last Reviewed/Updated By: Eva December M, Exam: Pt lying in bed in no distress. Head: Atraumatic, normocephalic. Neck: supple Heart: S1, S2 reg rate/rhythm , + SM Lung: clear Abd: soft, nontender, +BS Ext: no edema Neuro: Alert and oriented x 3 Mood and affect: appropriate Skin: warm and dry Telemetry: SR Assessment/Plan: Prothestic hip joint infection - s/p OR 02/22 - ortho S/O - per ID/primary Hypotension - on midodrine started 03/01/25 Acute PE - diagnosed 03/01 - hep gtt ASHD - s/p remote stent + Sep 2023 ANN to LAD - code chest pain called 03/01, pain is actually LLQ of abd - trop 36-37, flat/not c/w ACS - ECG unchanged - GDMT: statin, hep gtt, start ASA HFrEF VHD - 03/01/25 EF 20%, grade III DD, low flow, low gradient severe , mod MR, PASP 40 - per notes at [facility] Sep 2024, was considering valve surgery, per son- was told he is not a good candidate - No GDMT d/t hypotension- on midodrine now PAF s/p DCCV Jun 2024 - [id number] score is 5 with 6.7% annual stroke risk due to Chronic heart failure (1), Vascular Disease (1), DM (1), and Age, >75 (2). - was changed from low dose eliquis to hep gtt 03/01 - remains SR on tele Chronic LBBB DM - A1c 9.21 February 2025 NIGHAT intolerant to PAP rx Anemia - HGB 11.6-9.3 (baseline appears to be in 9s) Dementia - per primary DVT Prophylaxis: heparin gtt Further input from Dr. Chris Velasquez APRN Heart and Vascular 03/02/2025 Disposition Perspective - Medically Ready for Discharge: No Anticipated Discharge: > 3 days Discharge when / if: pending improvement Pt was seen in conjunction with a mid-level provider. I obtained the history from the patient. I personally examined this patient. I discussed the plan with pt I placed orders in chart. Pt with above history. Rt hip pain, s/p surgery. Then cp yesterday, code called, he tells me that he had a pulled muscle in rt abd going to chest, yesterday, has had this pain off and on for 3 years. Lasted for an hour. No pain now. On exam VSS Neck no JVD CVS s1, s2 irr RS no rales or rhonchi Abd soft + BS Ext no edema EKG by my interpretation: SR, first degree AV block, IVCD Labs noted Plan. Chest and abd pain Reproducible Atypical Troponin elevation, not indicative of ACS ASHD S/p PCI Med Rx. ASA On IV heparin Acute PE on CT IV heparin Hypotension Midodrine Hip surgery. Infection Abx ID consulted. Afib CVR Severe CM Not overtly decompensated. LBBB DM Pt weak and frail Elevated risk. I personally performed medical decision making in its entirety. Quinten Perez MD, [facility] * Katie Viera APRN - 02/23/2025 9:59 AM EDTAssociated Order(s): IP CONSULT TO INFECTIOUS DISEASES SEP Infectious Diseases Consult Note Date of Admission: 02/16/2025 Date of Consultation: 02/23/2025 Consulting Physician: Katie Viera APRN Referring Physician: Sameer Ortega MD Primary Care Physician: No Pcp, Per Patient Reason for Consult: + culture HPI: Steve King is a 89 y.o. male with history of CHF, T2DM, aortic stenosis, atrial fibrillation, who was admitted on 02/15/25 for concerns of a right hip PJI. He had a right total hip replacement initially back in May 2022. He says he has had issues since then. Per care everywhere chart review,he was admitted at in July 2022 for right prosthetic hip infection. He had a washout and I&D and he had Staph aureus on cultures at that time. He was treated with 6 weeks of IV cefazolin and rifampin until August 2022.He says he noticed a knot on his right hip a few weeks ago. He was transferred here from [facility] due to concerns of fluid collection at hip site. Right hip MRI showed a large periarticular fluid collection closely associated with the posterior aspect of the joint capsule, extending into the trochanteric bursal region with extension towards the skin surface over the lateral trochanteric level, this collection demonstrates peripheral enhancement, worrisome for abscess. Labs on arrival include mild leukocytosis, inflammatory markers were elevated. On 02/19 he had a right hip aspiration which showed 294 RBC, 56K TNC (84% segs), fluid cultures +MSSA. He was taken to OR on 02/22 for right hip arthrotomy with extensive debridement and head and liner exchange for infection, operative cultures are pending. ID was consulted for antibiotic management of right hip PJI. Patient currently on IV Vancomycin and IV Zosyn. He denies fever or chills. History reviewed. No pertinent past medical history. Allergies Allergen Reactions Tetanus Vaccines And Toxoid Swelling Pt also states blisters with swelling No family history on file. Social History Socioeconomic History Marital status: Unknown Spouse name: Not on file Number of children: Not on file Years of education: Not on file Highest education level: Not on file Occupational History Not on file Tobacco Use Smoking status: Not on file Smokeless tobacco: Not on file Substance and Sexual Activity Alcohol use: Not on file Drug use: Not on file Sexual activity: Not on file Other Topics Concern Not on file Social History Narrative Not on file Social Drivers of Health Financial Resource Strain: Low Risk (02/16/2025) Overall Financial Resource Strain (CARDIA) Difficulty of Paying Living Expenses: Not very hard Food Insecurity: No Food Insecurity (02/16/2025) Hunger Vital Sign Worried About Running Out of Food in the Last Year: Never true Ran Out of Food in the Last Year: Never true Transportation Needs: No Transportation Needs (02/16/2025) [facility] IP Transportation In the past 12 months, has lack of reliable transportation kept you from medical appointments, meetings, work or from getting things needed for daily living?: No Physical Activity: Inactive (02/16/2025) Exercise Vital Sign Days of Exercise per Week: 0 days Minutes of Exercise per Session: 0 min Stress: No Stress Concern Present (02/16/2025) [employer] - Occupational Stress Questionnaire Feeling of Stress : Only a little Social Connections: Not At Risk (07/08/2024) Received from [facility] Family and Community Support If for any reason you need help with day-to-day activities such as bathing, preparing meals, shopping, managing finances, etc., do you get the help you need?: I don't need any help How often do you feel lonely or isolated from those around you?: Never Intimate Partner Violence: Not At Risk (07/08/2024) Received from [facility] Abuse Screen Feels Unsafe at Home or Work/School: no Feels Threatened by Someone: no Does Anyone Try to Keep You From Having Contact with Others or Doing Things Outside Your Home?: no Physical Signs of Abuse Present: no Housing Stability: Not At Risk (07/08/2024) Received from [facility] Housing Stability Current Living Arrangements: home Potentially Unsafe Housing Conditions: none Medications Prior to Admission Medication Sig Dispense Refill Last Dose/Taking [DISCONTINUED] apixaban (ELIQUIS) 5 mg Oral Tablet Take 5 mg by mouth 2 times daily. Taking atorvastatin (LIPITOR) 40 mg Oral Tablet Take 40 mg by mouth daily. Taking calcium carbonate-vitamin D3 250 mg-3.125 mcg (125 unit) Oral Tablet Take 1 Tablet by mouth daily. Taking donepeziL (ARICEPT) 5 mg Oral Tablet Take 5 mg by mouth nightly. Taking DULoxetine (CYMBALTA) 60 mg Oral Capsule, Delayed Release(E.C.) Take 60 mg by mouth daily. Taking fluticasone propionate (FLONASE) 50 mcg/actuation Nasl [place], Suspension 2 Sprays by Nasal route 2 times daily as needed for Allergies. Taking fUROsemide (LASIX) 20 mg Oral Tablet Take 20 mg by mouth daily. Taking metFORMIN (GLUCOPHAGE) 500 mg Oral Tablet Take 500 mg by mouth 2 times daily. Taking polyvinyl alcohol (LIQUIFILM TEARS) 1.4 % Opht Drops Place 1 Drop into both eyes as needed for Dry Eyes. Taking tamsulosin (FLOMAX) 0.4 mg Oral Capsule Take 0.8 mg by mouth daily. Taking Current Facility-Administered Medications Medication Dose Route Frequency Provider Last Rate Last Admin acetaminophen (TYLENOL) tablet 650 mg 650 mg Oral Q4H PRN Berenice Dallas DO 650 mg at 02/23/25 0822 aluminum & magnesium hydroxide-simethicone 200-200-20 mg/5 mL suspension 30 mL 30 mL Oral Q4H PRN Mason Jacome DO apixaban (ELIQUIS) tablet 2.5 mg 2.5 mg Oral BID Mason Jacome DO 2.5 mg at 02/23/25 0823 atorvastatin (LIPITOR) tablet 40 mg 40 mg Oral Daily Litzy Sepulveda APRN 40 mg at 02/23/25 0824 bacitracin-polymyxin b (POLYSPORIN) ophthalmic ointment Left Eye BID Berenice Dallas DO Given at 02/23/25 0839 [START ON 02/24/2025] bisacodyL (DULCOLAX) EC tablet 10 mg 10 mg Oral BID Mason Jacome DO Or [START ON 02/24/2025] bisacodyL (DULCOLAX) suppository 10 mg 10 mg Rectal BID Mason Jacome DO calcium carbonate-vitamin D 500 mg-5 mcg (200 unit) per tablet 1 Tablet 1 Tablet Oral Daily WM Litzy Sepulveda APRN 1 Tablet at 02/23/25 0824 dextrose 50 % solution 25 mL 25 mL Intravenous PRN Berenice Dallas DO docusate sodium (COLACE) capsule 100 mg 100 mg Oral BID Mason Jacome DO 100 mg at 02/23/25 0824 donepeziL (ARICEPT) tablet 5 mg 5 mg Oral Nightly Litzy Sepulveda APRN 5 mg at 02/22/25 214 DULoxetine (CYMBALTA) capsule 60 mg 60 mg Oral Daily Litzy Sepulveda APRN 60 mg at 02/23/25 0824 fluticasone propionate (FLONASE) 50 mcg/actuation nasal spray 2 Rising [place] 2 [place] Nasal BID PRN Litzy Sepulveda APRN fUROsemide (LASix) tablet 20 mg 20 mg Oral Daily Litzy Sepulveda APRN 20 mg at 02/23/25 0824 glucagon (GLUCAGEN) injection 1 mg 1 mg Intramuscular PRN Berenice Dallas DO And sterile water injection 1 mL 1 mL Injection PRN Berenice Dallas DO insulin aspart U-100 (NovoLOG) injection 1-15 Units 1-15 Units Subcutaneous QID WM Berenice Dallas DO 9 Units at 02/23/25 0822 insulin glargine U-100 (LANTUS) injection 10 Units 10 Units Subcutaneous QPM (Insulin) Berenice Dallas DO 10 Units at 02/22/25 2147 magnesium hydroxide (MILK OF MAGNESIA) 400 mg/5 mL suspension 30 mL 30 mL Oral Daily Mason Jacome DO mupirocin (BACTROBAN) 2 % ointment Nasal 2 times per day Mason Jacome DO Given at 02/23/25 0822 oxyCODONE (ROXICODONE) immediate release tablet 5-10 mg 5-10 mg Oral Q3H PRN Mason Jacome DO 10mg at 02/23/25 0556 piperacillin-tazobactam in dextrose (ZOSYN) IVPB 3.375 g 3.375 g Intravenous 3 times per day Berenice Dallas DO Stopped at 02/23/25 0357 polyethylene glycol (GLYCOLAX, MIRALAX) packet 17 g 17 g Oral Daily Sameer Ortega MD 17 g at 02/21/25 0909 polyvinyl alcohol (LIQUIFILM TEARS) 1.4 % ophthalmic solution 1 Drop 1 Drop Both Eyes PRN Litzy Sepulveda APRN 1 Drop at 02/22/25 2145 senna (SENOKOT) tablet 17.2 mg 17.2 mg Oral BID Sameer Ortega MD 17.2 mg at 02/23/25 0823 senna (SENOKOT) tablet 2 Tablet 2 Tablet Oral Nightly Mason Jacome DO 2 Tablet at 02/22/25 2142 sodium chloride 0.9% IV line flush 20-50 mL 20-50 mL Intravenous PRN Sameer Ortega MD 150 mL/hr at 02/23/25 0838 50 mL at 02/23/25 0838 tamsulosin (FLOMAX) capsule 0.8 mg 0.8 mg Oral Daily Litzy Sepulveda APRN 0.8 mg at 02/23/25 0823 vancomycin in sodium chloride 0.9% premix IVPB 1,750 mg 1,750 mg Intravenous Q18H Berenice Dallas DO 125 mL/hr at 02/23/25 0839 1,750 mg at 02/23/25 0839 Review of Systems: Constitutional: negative for fever, chills and night sweats, feels ill, fatigued, generally weak, +hard of hearing [employer]: Negative for headache, focal weakness, speech problems, loss of consciousness, confusion, memory loss ENT: no rhinorrhea Eyes: No drainage Resp: negative for cough, shortness of breath CVS: negative for palpitations, chest pain GI: negative for abdominal pain, nausea, vomiting, diarrhea Urinary: no dysuria, trouble voiding MSK: +R hip pain Skin: negative for bruising, jaundice, lacerations Patient Vitals for the past 24 hrs: BP Temp Temp src Pulse Resp SpO2 02/23/25 0805 102/68 97.9 ??F (36.6 ??C) Oral 66 16 94 % 02/23/25 0553 102/64 -- -- 74 16 94 % 02/23/25 0048 92/70 98.1 ??F (36.7 ??C) Oral 88 16 94 % 02/22/25 2133 112/74 98.2 ??F (36.8 ??C) Oral 72 16 95 % 02/22/25 1647 109/71 -- -- 61 16 92 % 02/22/25 1628 103/66 97.1 ??F (36.2 ??C) Forehead 62 14 91 % 02/22/25 1419 106/65 95.3 ??F (35.2 ??C) Forehead 66 12 98 % 02/22/25 1353 104/63 95.8 ??F (35.4 ??C) Forehead 65 10 98 % 02/22/25 1333 -- 96.2 ??F (35.7 ??C) Forehead 62 10 98 % 02/22/25 1328 102/68 94.5 ??F (34.7 ??C) Axillary 60 12 97 % 02/22/25 1245 115/68 96.6 ??F (35.9 ??C) Forehead 63 11 98 % 02/22/25 1230 112/69 -- -- 64 12 97 % 02/22/25 1215 105/68 -- -- 62 13 98 % 02/22/25 1200 116/64 97.2 ??F (36.2 ??C) Forehead 66 16 99 % 02/22/25 1145 104/74 -- -- 66 8 98 % 02/22/25 1130 116/68 -- -- 65 10 96 % 02/22/25 1123 -- -- -- 62 9 93 % 02/22/25 1121 -- -- -- 63 21 (!) 89 % 02/22/25 1118 -- -- -- 66 21 90 % 02/22/25 1115 107/77 -- -- 73 21 (!) 87 % 02/22/25 1110 -- -- -- 67 15 90 % 02/22/25 1100 111/79 96.8 ??F (36 ??C) Forehead 68 14 95 % 02/22/25 1055 104/87 -- -- 66 19 98 % 02/22/25 1045 91/71 96.8 ??F (36 ??C) Forehead 74 17 99 % Weight: 251 lb 12.3 oz (114.2 kg) Immunization History Administered Date(s) Administered Influenza Vaccine Trivalent Adjuvanted PF 08/06/2020 Moderna SARS-CoV-2 Vaccine 12+ Yrs (Light blue border) 11/18/2020, 06/09/2021 Moderna SARS-CoV-2 Vaccine 12+ Yrs Spikevax 08/24/2023 Quadrivalent Influenza High Dose 06/24/2021 Physical Exam: General Appearance: Alert, cooperative, no distress Head: Normocephalic, without obvious abnormality, atraumatic Eyes: PERRL, conjunctiva/corneas clear Nose: Nares normal, septum midline, mucosa normal, no drainage Mouth: mucosa moist Lungs: Good AE B/L, respirations unlabored Heart: Regular rate and rhythm, S1 and S2 normal Abdomen: Soft, non-tender, bowel sounds active Extremities: surgical incision to right hip with Prevena vac in place, no edema Skin: no rashes or lesions Neurologic: Grossly normal Line: +PIV Active LDAs PIV Line Duration Peripheral IV 02/20/25 1130 Left Forearm Ultrasound guided 3 days Peripheral IV 02/22/25 0818 Right Hand 1 day Wound Duration Incision/Wound Closed Surgical Thigh Proximal;Right 1 day Labs: Lab Results Component Value Date WBC 5.6 02/21/2025 HGB 10.0 (L) 02/23/2025 HCT 31.0 (L) 02/23/2025 MCV 94.7 02/21/2025 PLT 209 02/21/2025 Lab Results Component Value Date GLU 281 (H) 02/23/2025 NA 133 (L) 02/23/2025 K 4.8 02/23/2025 CO2 24 02/23/2025 CL 99 02/23/2025 BUN 20 02/23/2025 CREATININE 0.86 02/23/2025 Results for orders placed or performed during the hospital encounter of 02/16/25 (from the past 2 weeks) WOUND CULTURE (STAIN INCLUDED) Collection Time: 02/19/25 12:43 PM Specimen: Hip, Right; Aspirate Result Value Ref Range Culture Positive Growth (A) Culture Moderate growth of Staphylococcus aureus PBP2a test Negative Stain Moderate WBCs Stain No organisms seen Susceptibility Staphylococcus aureus - SUSCEPTIBILITY RESULT* Ampicillin Cefazolin Ceftaroline Ceftriaxone Chloramphenicol <=8 Susceptible ug/mL Ciprofloxacin >2 Resistant ug/mL Clindamycin <=0.25 Susceptible ug/mL Daptomycin Erythromycin <=0.25 Susceptible ug/mL Gentamicin 4 Susceptible ug/mL Gentamicin synergy Levofloxacin >4 Resistant ug/mL Linezolid Moxifloxacin 2 Resistant ug/mL Nitrofurantoin Oxacillin <=0.25 Susceptible ug/mL Penicillin Rifampin <=1 Susceptible ug/mL Streptomycin synergy Synercid Tetracycline <=2 Susceptible ug/mL Tigecycline Trimethoprim/Sulfamethoxazole <=0.5/9.5 Susceptible ug/mL Vancomycin 1 Susceptible ug/mL * Rifampin and Gentamicin should not be used alone for antimicrobial therapy. For methicillin resistant staphylococci, ciprofloxacin should also not be used alone. ANAEROBIC CULTURE (NO STAIN) Collection Time: 02/19/25 12:43 PM Specimen: Hip, Right; Aspirate Result Value Ref Range Culture No anaerobic growth to date. FUNGUS STAIN (STAIN ONLY) Collection Time: 02/19/25 12:43 PM Specimen: Hip, Right; Aspirate Result Value Ref Range Fungal Stain No yeast or fungal elements seen. No yeast or fungal elements seen. ACID FAST BACILLI CULTURE AND SMEAR (STAIN INCLUDED) Collection Time: 02/19/25 12:43 PM Specimen: Hip, Right; Aspirate Result Value Ref Range AFB Stain SEE NOTE AFB Culture SEE NOTE WOUND CULTURE (STAIN INCLUDED) Collection Time: 02/22/25 9:03 AM Specimen: Hip, Right; Tissue Result Value Ref Range Stain Moderate RBCs Stain Rare WBCs Stain No organisms seen WOUND CULTURE (STAIN INCLUDED) Collection Time: 02/22/25 9:05 AM Specimen: Hip, Right; Tissue Result Value Ref Range Stain Few RBCs Stain No WBCs seen Stain No organisms seen WOUND CULTURE (STAIN INCLUDED) Collection Time: 02/22/25 9:05 AM Specimen: Hip, Right; Tissue Result Value Ref Range Stain Few RBCs Stain No WBCs seen Stain No organisms seen Lab Results Component Value Date SEDRATE 67 (H) 02/16/2025 Lab Results Component Value Date CRP 30.18 (H) 02/16/2025 Assessment: Right hip prosthetic joint infection. He had a right total hip replacement initially back in May 2022 at OSH. C/b Staph aureus infection and was treated with 6 weeks of IV cefazolin and rifampin until August 2022. 02/18 Right hip MRI showed a large periarticular fluid collection closely associated with the posterior aspect of the joint capsule, extending into the trochanteric bursal region with extension towardsthe skin surface over the lateral trochanteric level, this collection demonstrates peripheral enhancement, worrisome for abscess. 02/19/25 S/p right hip aspiration. Cell count showing 294 RBC, 56K TNC (84% segs). Cultures +growth of MSSA AFB Cx pending Synovasure pending 02/22 S/p OR for right hip arthrotomy with extensive debridement and head and liner exchange for infection Operative cultures are pending Hx of MRSA infection in back? - per patient report PAF On Eliquis T2DM NIGHAT Heart failure Plan: Stop IV Vancomycin and IV Zosyn. Start IV Cefazolin. Would avoid Rifmapin at this time due to drug-drug interactions. Follow 02/19 and 02/22 aspiration and operative cultures Obtain routine blood cultures, trend ESR/CRP Do not insert permanent lines until surveillance blood cx negative for 48-72 hours. Monitor fever/BP curve, I/O's, serum electrolytes, WBC & platelet trend, Liver and renal function Thanks for consulting. Discussed with patient. ID will continue to follow Case reviewed, patient seen with Dr. Michael Viera APRN Cosigned by Nick Elkins MD at 02/23/2025 2:01 PM EDT Associated attestation - Nick Elkins MD - 02/23/2025 2:01 PM EDT Physical Exam: General Appearance: Alert, cooperative, no distress Head: Normocephalic, without obvious abnormality, atraumatic Eyes: conjunctiva/corneas clear Nose: Nares normal, septum midline, mucosa normal, no drainage Mouth: mucosa moist Lungs: Good AE B/L, respirations unlabored Heart: Regular rate and rhythm, S1 and S2 normal Abdomen: Soft, non-tender, bowel sounds active Extremities: surgical incision to right hip with Prevena vac in place, no edema Skin: no rashes or lesions Neurologic: Grossly normal Line: +PIV Assessment # Right hip prosthetic joint infection Important to note he had a right total hip replacement on May 2022 at an outside hospital. Per review of medical records he had a staph auris infection and he was treated with 6 weeks of IV cefazolin and oral rifampin until August 2022. Unclear if he had oral suppressive therapy after completing this course. Was not able to find any evidence of this in the records. Patient has been complaining of uncomfortable sensation around his right hip. On 02/18 he had an right hip MRI which showed findings concerning for a right hip abscess. On 02/19/2025 had a hip aspirationwith 294 RBC 56,000 TNC (84% segmented cells). Culture grew MSSA. So on 02/22/2025 he underwent for right hip arthrotomy with extensive debridement head and liner exchange for infection. IntraOp cultures were obtained. 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 Start IV cefazolin - Follow-up cultures from 02/19 and IntraOp cultures from 02/22 - Follow-up Synovasure from 02/19 - ID will continue to follow Pertinent laboratory and imaging results personally reviewed. Patient seen and examined with Katie Viera APRN. Reviewed documentation per EVS MANAGER. Nick Mandujano MD * Mason Jacome, - 02/20/2025 6:59 AM EDTAssociated Order(s): IP CONSULT TO ORTHOPEDIC SURGERY Images from the original note were not included. Consult Note Name: Steve King PCP: No Pcp, Per Patient Chief Complaint: R hip pain s/p MEKA (Hiro May 2022) HPI: 89 y.o. male who presents on trasnfer from [facility]. [place]. His index MEKA was yearsago by Dr. Bosch. He has never liked his hip. He only had 1 procedure on his him. He has noted swelling and pain on and off for over a year. He notes there is some redness over the incisional area. He has never had any drainage. he denies fevers or chills. He usually takes Eliquis. He has been on [facility] spectrum abx since being inpatient.. Since being in hospital he has been on antibiotics. No past medical history on file. No past surgical history on file. family history is not on file. Prior to Admission medications Medication Sig Start Date End Date Last Dose Authorizing Provider apixaban (ELIQUIS) 5 mg Oral Tablet Take 5 mg by mouth 2 times daily. Taking Provider, Historical atorvastatin (LIPITOR) 40 mg Oral Tablet Take 40 mg by mouth daily. Taking Provider, Historical calcium carbonate-vitamin D3 250 mg-3.125 mcg (125 unit) Oral Tablet Take 1 Tablet by mouth daily. Taking Provider, Historical donepeziL (ARICEPT) 5 mg Oral Tablet Take 5 mg by mouth nightly. Taking Provider, Historical DULoxetine (CYMBALTA) 60 mg Oral Capsule, Delayed Release(E.C.) Take 60 mg by mouth daily. Taking Provider, Historical fluticasone propionate (FLONASE) 50 mcg/actuation Nasl [place], Suspension 2 Sprays by Nasal route 2 times daily as needed for Allergies. Taking Provider, Historical fUROsemide (LASIX) 20 mg Oral Tablet Take 20 mg by mouth daily. Taking Provider, Historical metFORMIN (GLUCOPHAGE) 500 mg Oral Tablet Take 500 mg by mouth 2 times daily. Taking Provider, Historical polyvinyl alcohol (LIQUIFILM TEARS) 1.4 % Opht Drops Place 1 Drop into both eyes as needed for Dry Eyes. Taking Provider, Historical tamsulosin (FLOMAX) 0.4 mg Oral Capsule Take 0.8 mg by mouth daily. Taking Provider, Historical Allergies Allergen Reactions Tetanus Vaccines And Toxoid Swelling Pt also states blisters with swelling ROS Physical Examination: BP 92/66 (BP Location: Right arm, Patient Position: Sitting) Pulse 104 Temp 97.4 ??F (36.3 ??C)(Oral) Resp 20 Ht 6' 4 (1.93 m) Wt 251 lb 12.3 oz (114.2 kg) SpO2 98% BMI 30.65 kg/m?? Physical Exam Posterolateral incision with sinus tract or dehiscence/ drainage some erythema over the incision decent hip flexion strength. Able to SLR NVI in R foot with palpable pulses Imaging: X ray images of the R hip were reviewed and interpreted by me today and are significant for: XR HIP RIGHT AP LATERAL W AP PELVIS, 02/16/2025 2:13 PM CLINICAL HISTORY: -hip pain s/p MEKA COMPARISON: None. PROCEDURE COMMENTS: AP view of the pelvis with AP and frog-leg views of the hip. FINDINGS: Patient status post a total right hip replacement. Prosthetic component intact. Mild degenerative changes left hip. No definite pelvic fractures identified. Joint spaces overall well-maintained for age. No periostitis. IMPRESSION: No acute abnormality of the hip or pelvis. MRI R hip: IMPRESSION: 1. 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 There is a large periarticular fluid collection closely associated with the posterior aspect of the joint capsule, extending into the trochanteric bursal region with extension towards the skin surface over the lateral trochanteric level. This collection demonstrates peripheral enhancement, worrisome for abscess. 2. No MRI evidence of periprosthetic osteolysis, marrow edema, or fracture. Labs: elevated inflammatory markers elevated synovial WBC and PMN % MDM: Imaging reviewed Labs reviewed - esr 67 - crp 30 -metal ions WNL -hip aspiration - cx ngtd, cc 57k, 84% segs, synovasure pending, MSIS > 6 likely infected Nonsurgical vs surgical discussion Assessment: 89 year old male s/p R MEKA May 2022 Plan: Cultures likely influenced by Abx -may be false negative cell count pmn % concerning, labs elevated, MRI shows fluid collection in joint. Will wait for a-defensin and final cultures. He will likely need surgical intervention (washout) next week, pending final fluid analysis results. Need implant records / record request from OSH Given his age, low demand, I am concerned he would not tolerate a 2 stage procedure, or explant well. Plan would be likely extensive debridement with modular component exchange. OK for DVT prophylaxis today 02/20 - may consider OR Sunday AM for R hip I&D with head liner exchange. WBAT RLE with walker * Merry Fuentes PA - 02/18/2025 3:21 PM EDTAssociated Order(s): IP CONSULT TO INTERVENTIONAL RADIOLOGY Images from the original note were not included. INTERVENTIONAL RADIOLOGY CONSULT - Right Hip Aspiration Date: 02/18/2025 Time: 3:37 PM Name:Steve King :1935 Age:89 y.o. M/F: male Attending Provider: Berenice Dallas * Primary Care Physician: No Pcp, Per Patient HPI: 89 y.o. year old male with PMHx significant for DM2, Afib, Dyslipidemia, and s/p Total Right Hip replacement in 2021. Per chart - patient with chronic issues following replacement including knot overlying incision site that became painful in last 6-8mos. Patient noted to have fallen on sunday after right hip gave out. Patient noted to have large fluctuant, tender nodule over lateral hip under old incision and overlying erythematous rash. Ortho recommending R. hip aspiration per chart. Imaging including XR right hip performed. IR consulted for possible right hip aspiration. PMH: No past medical history on file. PSxHx: No past surgical history on file. Allergies: Allergies as of 02/15/2025 (Not on File) Meds: Current Facility-Administered Medications: acetaminophen (TYLENOL) tablet 650 mg, 650 mg, Oral, Q4H PRN, Berenice Dallas S, DO, 650 mgat 02/18/25 131 atorvastatin (LIPITOR) tablet 40 mg, 40 mg, Oral, Daily, Melissa Sepulvedae, EVS MANAGER, 40 mg at 02/18/25802 calcium carbonate-vitamin D 500 mg-5 mcg (200 unit) per tablet 1 Tablet, 1 Tablet, Oral, Daily WM, Litzy Sepulveda, EVS MANAGER, 1 Tablet at 02/18/25802 donepeziL (ARICEPT) tablet 5 mg, 5 mg, Oral, Nightly, Melissa Sepulvedae, EVS MANAGER, 5 mg at 02/17/252022 DULoxetine (CYMBALTA) capsule 60 mg, 60 mg, Oral, Daily, Derick, Litzy, EVS MANAGER, 60 mg at 02/18/25 08 fluticasone propionate (FLONASE) 50 mcg/actuation nasal spray 2 [place], 2 [place], Nasal, BID PRN, Melissa Sepulvedae, EVS MANAGER fUROsemide (LASix) tablet 20 mg, 20 mg, Oral, Daily, Derick Litzy, EVS MANAGER, 20 mg at 02/18/25 08 melatonin tablet 5 mg, 5 mg, Oral, Nightly PRN, Mleissa Sepulvedae, EVS MANAGER, 5 mg at 02/17/252023 oxyCODONE (ROXICODONE) immediate release tablet 5 mg, 5 mg, Oral, Q4H PRN, Berenice Dallas S, DO polyethylene glycol (GLYCOLAX, MIRALAX) packet 17 g, 17 g, Oral, Daily, Sameer Ortega MD, 17 g at 02/18/25 08 polyvinyl alcohol (LIQUIFILM TEARS) 1.4 % ophthalmic solution 1 Drop, 1 Drop, Both Eyes, PRN, Litzy Sepulveda APRN senna (SENOKOT) tablet 17.2 mg, 17.2 mg, Oral, BID, Sameer Ortega MD, 17.2 mg at 02/18/25 08 tamsulosin (FLOMAX) capsule 0.8 mg, 0.8 mg, Oral, Daily, Litzy Sepulveda APRN, 0.8 mg at 02/18/25 08 Vitals: 02/18/25 0800 BP: 100/66 Pulse: 93 Resp: 17 Temp: 97.6 ??F (36.4 ??C) SpO2: 97% Labs: Lab Results Component Value Date CREATININE 1.08 02/16/2025 BUN 52 (H) 02/16/2025 NA 133 (L) 02/16/2025 K 5.1 (H) 02/16/2025 CL 96 (L) 02/16/2025 CO2 22 02/16/2025 Lab Results Component Value Date WBC 7.5 02/16/2025 HGB 12.7 (L) 02/16/2025 HCT 39.4 (L) 02/16/2025 MCV 97.5 02/16/2025 PLT 261 02/16/2025 Imaging: XR HIP RIGHT AP LATERAL W AP PELVIS, 02/16/2025 2:13 PM FINDINGS: Patient status post a total right hip replacement. Prosthetic component intact. Mild degenerative changes left hip. No definite pelvic fractures identified. Joint spaces overall well-maintained for age. No periostitis. IMPRESSION: No acute abnormality of the hip or pelvis. Assessment/Plan: Active Hospital Problems Diagnosis *Right hip pain NIGHAT (obstructive sleep apnea) Dyslipidemia Major neurocognitive disorder ([facility]) Mood disorder Type 2 diabetes mellitus with diabetic polyneuropathy, without long-term current use of insulin ([facility]) Environmental allergies Hyperkalemia Rash Dysphagia 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) ([facility]) Paroxysmal A-fib ([facility]) BPH (benign prostatic hyperplasia) 1) Right hip pain - WBC 7.5, afebrile, VSS - XR right hip performed without evidence of fluid. No further advanced imaging available. - Per chart, fluid collection is palpable on exam and superficial in nature with overlying erythematous rash. - Reviewed with Dr. Carcamo. IR recommending US of right hip to further evaluate and if collection is confirmed to be superficial, could consider for US Guided Aspiration of fluid collection. Would not recommend right hip aspiration until fluid collection further evaluated, due to potential for introducing infection into joint space - Above recommendation relayed to Hospitalist via secure chat Please contact IR with questions or concerns. Signature: Merry Fuentes PA-C 02/18/25 3:37 PM documented in this encounter Miscellaneous Notes * [facility] - Postop Outreach - Sita Delgado PT - 03/08/2025 2:14 PM EDT Ortho/Neuro - Postop Outreach Discharge Date: 03/08/2025 Procedure Date: 02/22/2025 Spoke With: Pt was discharged to a SNF or IRF * Utilization Review Notes - Opal Lebron LPN - 03/02/2025 11:22 AM EDT Continued Stay Review TELEMETRY Admitted Observation 02/17/25 changed to Inpatient 02/20/25 Inpatient order on chart Admission for Chest Pain Atypical, Abdominal Pain, Hypotension, Right Hip Prosthetic Joint Infection, CHF, Paroxysmal Afib, 03/02/25 0747 98.4 ??F (36.9 ??C) -- 80 17 89/63 Abnormal 67 -- -- 97 % -- 2 lpm Nasal cannula -- -- -- -- HB 03/02/25 0618 -- -- -- -- -- -- -- -- -- -- -- -- -- -- -- 285 lb 3.2 oz (129.4 kg) CJ 03/02/25 0547 -- -- 73 -- -- -- -- -- -- -- -- -- -- -- -- -- QJ 03/02/25 05:04:32 97.6 ??F (36.4 ??C) -- 80 16 96/50 61 -- -- 97 % -- 2 lpm Nasal cannula -- -- -- -- JENS 03/02/25 0335 -- -- 79 -- -- -- -- -- -- -- -- -- -- -- -- -- 03/02/25 0129 -- -- 80 -- -- -- -- -- -- -- -- -- -- -- -- -- 03/01/252346 97 ??F (36.1 ??C) -- 87 16 106/65 75 -- -- -- -- -- -- -- -- -- -- JENS 03/01/252339 -- -- 85 -- -- -- -- -- -- -- -- -- -- -- -- -- 03/01/252057 97.9 ??F (36.6 ??C) -- 79 16 99/ 72 -- -- 100 % -- 2 lpm Nasal cannula -- -- -- -- 03/01/251706 97.5 ??F (36.4 ??C) -- 80 16 93/78 81 -- -- 100 % -- 2 lpm Nasal cannula -- -- -- -- 03/01/25 1542 -- -- -- -- /60 70 -- -- -- -- -- -- -- -- -- -- 03/01/25 1307 -- -- 69 -- -- -- -- -- -- -- -- -- -- -- -- -- 03/01/25 1253 -- -- -- -- -- -- -- -- -- -- 2 lpm Nasal cannula -- -- -- -- 03/01/25 1234 97.5 ??F (36.4 ??C) -- 71 18 74/56 Abnormal 62 -- -- 97 % -- -- -- -- -- -- -- 03/01/25 1234 -- -- -- -- -- -- -- -- -- -- 2 lpm Nasal cannula -- -- -- -- WM 03/01/25 1126 -- -- 77 -- -- -- -- -- -- -- -- -- -- -- -- -- MG 03/01/25 1017 -- -- -- 16 92/76 83 -- -- -- -- -- -- -- -- -- -- CG 03/01/25 09:20:27 -- -- 69 -- 93/65 74 -- -- 97 % -- 2 lpm Nasal cannula -- -- -- -- MM 03/01/25 09:08:50 -- -- -- 18 87/57 Abnormal 68 -- -- 95 % -- -- -- -- -- -- -- MM 03/01/25 0804 98.2 ??F (36.8 ??C) -- 82 18 132/93 Abnormal 113 -- -- 96 % -- -- Room Air -- -- -- -- CG 03/01/25 0252 97.7 ??F (36.5 ??C) -- 69 16 106/57 72 -- -- 94 % -- -- Room Air -- -- -- -- CT PULMONARY ANGIOGRAM, 03/01/2025 4:36 PM IMPRESSION: Positive for pulmonary emboli in the left lower lobe. Bilateral pleural effusions. Atelectasis versus infection as above. Mild adenopathy which may be reactive. NS IV 75hr stopped 03/01/25, ASA 81mg Daily, Lipitor 40mg Daily, Dulcolax 10mg BID, Calcium Carbonate Vit D Daily, Ancef IV TID stopped 03/01/25, Maxipime 1g IV TID started 03/01/25, D50 IV x1 03/02/25, Colace 100mg BID, Aricept 5mg Nightly, Cymbalta 60mg Daily, Lasix 20mg Daily stopped 03/01/25, Heparin GTT started 03/01/25 stopped 03/02/25, SSI, Accucheck QID, Lantus 10 Units SQ BID decreased to 8 Units SQ BID 03/02/25,Glucophage 500mg BID stopped 03/01/25, Flagyl IV 500mg IV TID 03/01/25, Proamatine 2.5mg TID increased to 5mg BID 03/01/25 increased to 7.5mg TID 03/01/25, Roxicodone 10mg po x1, Protonix 40mg Daily, Miralax Daily, Senokot BID, Flomax 0.8mg decreased to 0.4mg Daily 03/02/25, Vanc IV 1750mg IV q 18hrs, Cardiac Monitoring, Daily Weights, Aboots, 75 Gram Carb Diet, Consult Pulmonology, VA US Lower Extremity Venous Bilateral Ordered, PT & OT PT Recommendation -- Moderate frequency, moderate intensity five days a week therapy recommended. -EL OT Recommendation -- Moderate frequency, moderate intensity five days a week therapy recommended. -BK Additional OT discharge information -- -- Discharge Planning Support Systems Children, Family Members Patient's Living Arrangments Prior to Admission? Private Residence Alone * Plan of Care - Mason Jacome DO - 02/28/2025 8:13 AM EDT patient is pending transfer to institution closer to home stable from ortho standpoint ambulating > 50 feet ID plan: rifampin avoided 2/2 eliquis. On IV ancef x 6 weeks followed by indefinite oral suppression Posterior hip precautions/wbat with PT synovasure still pending he should follow up with his index surgeon, if able from a logistics standpoint. Mason Jacome DO [facility] Office: [phone], [phone] * Utilization Review Notes - Mitali Szymanski RN - 02/27/2025 11:06 AM EDT Admit as ip 02/20/25. Ip order in epic. Cont stay review. Sp 02/22/25 Right hip Incision & Drainagewith head/liner exchange Iv 50ml/hr, eliquis po bid, ance fiv tid Right hip prosthetic joint infection Presented with right hip pain Orthopedic consulted ID consulted infected MEKA? PRN pain control; IR consulted for aspration MRI R hip showed findings concerning for a right hip abscess Was Started on antibiotics IV vancomycin and Zosyn. Ortho recommend outpatient follow-up post aspiration 02/19 patient underwent IR US guided aspiration; Culture grew MSSA. 02/23 blood culture no growth 48HR, PICC per ID discussed with ID on 02/22/2025 he underwent for right hip arthrotomy with extensive debridement head and liner exchange for infection. Broad antibiotic switched to cefazolin per ID Dcplan- referral to [facility] * Utilization Review Notes - Mitali Szymanski RN - 02/24/2025 10:42 AM EDT Admit as ip 02/20/25. Ip order in [facility]. Cont stay review. Sp 02/22/25 Right hip Incision & Drainagewith head/liner exchange Eliquis po bid ,ancef iv tid ,oxycodone po x3 zosyn iv Wound cx rt hip Positive Growth Abnormal Moderate growth of Staphylococcus aureus Plan - Stop IV vancomycin and IV Zosyn. Start IV cefazolin - Follow-up cultures from 02/19 and IntraOp cultures from 02/22 - Follow-up Synovasure from 02/19 - ID will continue to follow Dcplan- referral sent to [facility] * Utilization Review Notes - Mercy Preciado RN - 02/20/2025 10:46 AM EDT CONT STAY REVIEW ADMITTED INPT 02/16 , CHANGED TO OBS ON 02/17, changed to inpt 02/20 Inpt ORDER ON CHART, ADMITTED TO MED/SURG FLOOR 02/20 PER ORTHO Imaging reviewed Labs reviewed - esr 67 - crp 30 -metal ions WNL -hip aspiration - cx ngtd, cc 57k, 84% segs, synovasure pending, MSIS > 6 likely infected Nonsurgical vs surgical discussion Assessment: 89 year old male s/p R MEKA May 2022 Plan: Cultures likely influenced by Abx -may be false negative cell count pmn % concerning, labs elevated, MRI shows fluid collection in joint. Will wait for a-defensin and final cultures. He will likely need surgical intervention (washout) next week, pending final fluid analysis results. Need implant records / record request from OSH Given his age, low demand, I am concerned he would not tolerate a 2 stage procedure, or explant well. Plan would be likely extensive debridement with modular component exchange. OK for DVT prophylaxis today 02/20 - may consider OR Sunday AM for R hip I&D with head liner exchange. WBAT RLE with walker Joint fluid Latest Reference Range & Units 02/19/25 12:43 Color JF Yellow, Straw [place] ! Appear JF Clear, Slightly Hazy, Hazy Turbid ! RBC JF /mcL 294 Segs JF <25 % 84 (H) Lymphs JF % 6 Macrophages JF % 10 Glucose JF 74 - 100 mg/dL 216 (H) Protein JF 6.4 - 8.3 gm/dL 5.0 (L) Crystal JF None Seen None Seen Total Nucleated Cells JF <=150 /mcL 56,894 (H) ZOSYN IV, , VANCO IV Wound cx MRI HIP 1. 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 There is a large periarticular fluid collection closely associated with the posterior aspect of the joint capsule, extending into the trochanteric bursal region with extension towards the skin surface over the lateral trochanteric level. This collection demonstrates peripheral enhancement, worrisome for abscess. 2. No MRI evidence of periprosthetic osteolysis, marrow edema, or fracture. PT Recommendation Moderate frequency, moderate intensity five days a week therapy recommended. 02-18-2025 Discharge update: pt's son is requesting SNF at [place]. CC sent referral via [employer], awaiting response. CC continues to follow * Utilization Review Notes - Mercy Preciado RN - 02/19/2025 2:43 PM EDT Images from the original note were not included. CONT STAY REVIEW ADMITTED INPT 02/16 , CHANGED TO OBS ON 02/17 OBSERVATION ORDER ON CHART, ADMITTED TO MED/SURG FLOOR 6/3 PER ORTHO Ortho plan 02/17: rec R hip aspiration No surgical plans as of now 02/18 PER MD 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 PRN pain control; Hold eliquis until aspiration hold Abx until aspiration Ortho consult; discussed with Dr. Jacome IR consulted for aspration Mri R hip ordered 02/[address] Marrufo performed right hip bursa aspiration. 150 cc bloody/meza joint fluid removed. Full dictation under imaging- chart review. Patient tolerated procedure well. Nothing more per IR at this time. Plan per Dr. Naa carlos et al. ZOSYN IV, , VANCO IV Wound cx MRI HIP 1. 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 There is a large periarticular fluid collection closely associated with the posterior aspect of the joint capsule, extending into the trochanteric bursal region with extension towards the skin surface over the lateral trochanteric level. This collection demonstrates peripheral enhancement, worrisome for abscess. 2. No MRI evidence of periprosthetic osteolysis, marrow edema, or fracture. PT Recommendation Moderate frequency, moderate intensity five days a week therapy recommended. 02-18-2025 Discharge update: pt's son is requesting SNF at [place]. CC sent referral via [employer], awaiting response. CC continues to follow * Utilization Review Notes - Mercy Preciado RN - 02/19/2025 9:50 AM EDT Images from the original note were not included. CONT STAY REVIEW ADMITTED INPT 02/16 , CHANGED TO OBS ON 02/17 OBSERVATION ORDER ON CHART, ADMITTED TO MED/SURG FLOOR 02/17 PER ORTHO Ortho plan 02/17: rec R hip aspiration No surgical plans as of now 02/18 PER MD 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 PRN pain control; Hold eliquis until aspiration hold Abx until aspiration Ortho consult; discussed with Dr. Jacome IR consulted for aspration Mri R hip ordered 02/19 PER IR 1. 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 There is a large periarticular fluid collection closely associated with the posterior aspect of the joint capsule, extending into the trochanteric bursal region with extension towards the skin surface over the lateral trochanteric level. This collection demonstrates peripheral enhancement, worrisome for abscess. 2. No MRI evidence of periprosthetic osteolysis, marrow edema, or fracture. Per Dr. Marrufo, can attempt US guided aspiration today around 1130. ZOSYN IV, , VANCO IV MRI HIP 1. 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 There is a large periarticular fluid collection closely associated with the posterior aspect of the joint capsule, extending into the trochanteric bursal region with extension towards the skin surface over the lateral trochanteric level. This collection demonstrates peripheral enhancement, worrisome for abscess. 2. No MRI evidence of periprosthetic osteolysis, marrow edema, or fracture. PT Recommendation Moderate frequency, moderate intensity five days a week therapy recommended. 02-18-2025 Discharge update: pt's son is requesting SNF at [place]. CC sent referral via [employer], awaiting response. CC continues to follow * Utilization Review Notes - Mercy Preciado RN - 02/18/2025 1:54 PM EDT Images from the original note were not included. CONT STAY REVIEW ADMITTED INPT 02/16 , CHANGED TO OBS ON 02/17 OBSERVATION ORDER ON CHART, ADMITTED TO MED/SURG FLOOR 02/17 PER ORTHO Ortho plan 02/17: rec R hip aspiration No surgical plans as of now 02/17 PER MD 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 PRN pain control; hold Abx until aspiration Ortho consult; discussed PT Recommendation Moderate frequency, moderate intensity five days a week therapy recommended. 02-18-2025 Discharge update: pt's son is requesting SNF at [place]. CC sent referral via [employer], awaiting response. CC continues to follow * Utilization Review Notes - Mercy Preciado RN - 02/18/2025 8:39 AM EDT Images from the original note were not included. ADMITTED INPT 02/16 , CHANGED TO OBS ON 02/17 OBSERVATION ORDER ON CHART, ADMITTED TO MED/SURG FLOOR 02/17 PER ORTHO Ortho plan 02/17: rec R hip aspiration No surgical plans as of now 02/17 PER MD 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 PRN pain control; hold Abx until aspiration Ortho consult; discussed PT Recommendation Moderate frequency, moderate intensity five days a week therapy recommended. 02/17/2025: Discharge retail planning manager met with Patient to provide a Repisodic list for Long Term Facility at the direction of the Front Desk Lead. Patient plan to review list and contact their CC with their choices. Contact information provided to patient/family on how to reach team if they have any questions. Patient also wanted me to send the list to his son. List sent electronically. Will follow for facility selection * Utilization Review Notes - Opal Lebron LPN - 02/17/2025 12:[address] Dia Park physician advisor/ committe member, was consulted per process. The decision wasto make the patient [observation or outpatient in bed]. Dr. Berenice Dallas attending physician is in agreement. The order was noted and Condition Code 44 was assigned. Patient and Billing office notified. * Utilization Review Notes - Opal Lebron LPN - 02/17/2025 12:09 PM EDT Admission from ER to MED SURG Admitted Inpatient 02/16/25 changed to [facility] 02/17/25 Observaton order on chart. Admission for Right Hip Pain Lipitor 40mg Daily, Calcium Carbonate Vit D Daily, Aricept 5mg Nightly, Cymbalta 60mg Daily, Lasix 20mg Daily, Melatonin 5mg po x1, Flomax 0.8mg Daily, NPO, Aboots, Consult Orthopedic Surgery, Consult PT & OT Discharge Planning Support Systems Family Members Patient's Living Arrangments Prior to Admission? Private Residence With Other(s) * Plan of Care - Sugar العراقي, ALYSSA-POLITICAL CONSULTANT - 02/17/2025 10:14 AM EDT Clinical Swallow Evaluation (CSE) Speech Pathology Clinical Swallow Evaluation completed. Pt reported to MD that he has trouble swallowing about once a day. Pt has hx recent stomach ulcers, given pantoprazole sodium for 30 days starting 12/23/24 Impression: Patient denied difficulty swallowing liquids or pills. He described sensation of choking on solidfoods occasionally resulting in cough which is productive of sputum and sometimes food. This is also associated with stomach pain. He denied acid reflux symptoms or globus sensation when swallowing. Pt found reclined in bed while eating his morning meal. Assisted him with sitting upright in bed (he did not require physical assistance, just adjustment of the bed to allow him to reposition himself). Pt demonstrated oropharyngeal swallow that was clinically functional. Noted Left facial asymmetry at rest, but symmetrical facial movement. Cranial nerve exam otherwise unremarkable. He was missing some teeth, though mastication was bilateral and efficient with complete oral clearance post swallow.He coordinated successive swallows of thin liquid by cup and straw. He self-fed at a reasonable rate. Observed post swallow belching. No aspiration symptoms or oropharyngeal dysphagia symptoms were identified. Recommendations: Regular Solids, Thin Liquids Medication administration: With thin liquids Assistance/Supervision: Independent Upright positioning 90 degrees Referrals: consider GI for frequent belching, gas, ?regurgitation of food ST POC: Complete, POLITICAL CONSULTANT will sign off This note is to serve as discharge summary if no further Speech services are provided before being discharged from the hospital. 02/17/25925 Clinical Swallow Evaluation (CSE) Patient Seen Today? Yes Note Type Evaluation Time In 925 Time Out 50 Admitting Diagnosis right hip pain Speech Therapy Related Diagnosis R13.10 Dysphagia unspecified Date of onset 02/16/25 Pertinent and Past Medical History mild cognitive impairment, DM, CHF Recent Imaging Chest none this admission Recent Imaging Head none this admission Speech Therapy Personal Protective Equipment Gloves Others Present/Assisting none Pain Scale 0-10 (Lower abdominal pain) Assistive Devices Glasses Behavior/Alertness Awake/Alert;Cooperative;Follows commands Prior level of function Independent with ADLs;Lives alone Speech/Language No impairment noted/Appears WFL Patient Positioning Upright in bed Dentition Missing teeth Pertinent allergies (tetanus vaccines and toxoid) Current Diet Regular;Thin Liquids Diet prior to admit Regular;Thin Liquids Preferred Mode of Liquid Presentation Cup & Straw Previous MBS none in EPIC Previous FEES none Baseline Vocal Quality Normal Volitional Cough Strong Secretion Managment WFL Oral And Cranial Nerve Assessment Oral Mucosa Moist, healthy CN V Trigeminal Intact facial sensation;Intact mandibular strength/ROM CN VII Facial Intact facial symmetry CN IX/X Glossopharyngeal/Vagus Intact velar elevation;Vocal quality WNL CN XII Hypoglossal Tongue protrudes midline Respiratory Respiratory status Yes Room air Appears WFL History of Intubation w/ this admit No Consistencies Assessed Consistencies Assessed Yes Ice Chips Presentation Assisted feeding;Spoon Oral WFL Pharyngeal WFL;No overt s/s of aspiration Thin Presentation Self fed;Cup;Straw;Single swallow;Sequential swallows Oral WFL Pharyngeal WFL;No overt s/s of aspiration Pureed PU4 Presentation Self Fed Oral WFL Pharyngeal WFL;No overt s/s of aspiration Regular Solid Presentation Self Fed Oral WFL Pharyngeal WFL;No overt s/s of aspiration Results/Recommendations Clincial Swallow Impression No overt s/s of aspiration noted at bedside;Swallow appears WNL/WFL Diet Recommendations Regular Solids;Thin Liquids Liquid Presentation Cup;Straw Strategies/Maneuvers Upright positioning 90 degrees Assistance/Supervision Independent Medication administration With thin liquids Results discussed with Patient;Nursing Patient and/or Family Goal none voiced Patient/Family Education Completed Yes POLITICAL CONSULTANT Recommendation No post discharge therapy recommended Frequency/Follow up Complete * Plan of Care - Mason Jacome DO - 02/17/2025 8:50 AM EDT Images from the original note were not included. Ortho plan 02/17: rec R hip aspiration No surgical plans as of now Mason Jacome DO 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 did not appear to be septicjoint. fluid can be manipulated on palpitation. not warm or red, ortho aware of admission documented in this encounter Plan of Treatment Upcoming Encounters Date Type Department Care Team (Late st Contact Info) Description 04/28/2025 3:45 PM EDT Office Visit SEP Infectious Disease EDG [address] [facility] [address] [place] [phone] Nick Elkins MD [address] [place] [address] Pending Results Name Type Priority Associated Diagnoses Date /Time ACID FAST BACILLI CULTURE AND SMEAR (STAIN INCLUDED) Microbiology Routine Benign prostatic hyperplasia, unspecified whether lower urinary tract symptoms present Paroxysmal A-fib (HCC) 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) Dysphagia, unspecified type Rash Hyperkalemia Environmental allergies Type 2 diabetes mellitus with diabetic polyneuropathy, without long-term current use of insulin (HCC) Mood disorder Major neurocognitive disorder (HCC) Dyslipidemia NIGHAT (obstructive sleep apnea) Right hip pain 02/19/2025 12:43 PM EDT ACID FAST BACILLI CULTURE AND SMEAR (STAIN INCLUDED) Microbiology Routine Benign prostatic hyperplasia, unspecified whether lower urinary tract symptoms present Paroxysmal A-fib (HCC) 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) Dysphagia, unspecified type Rash Hyperkalemia Environmental allergies Type 2 diabetes mellitus with diabetic polyneuropathy, without long-term current use of insulin (HCC) Mood disorder Major neurocognitive disorder (HCC) Dyslipidemia NIGHAT (obstructive sleep apnea) Right hip pain 02/19/2025 12:43 PM EDT ECG AND WAVEFORMS - TELEMETRY Point of Care Testing Routine 03/01/2025 1:02 PM EDT ECG AND WAVEFORMS - TELEMETRY Point of Care Testing Routine 03/04/2025 7:00 AM EDT ECG AND WAVEFORMS - TELEMETRY Point of Care Testing Routine 03/07/2025 8:37 PM EDT Scheduled Orders Name Type Priority Associated Diagnoses Orde r Schedule ACID FAST BACILLI CULTURE AND SMEAR (STAIN INCLUDED) Microbiology Routine Benign prostatic hyperplasia, unspecified whether lower urinary tract symptoms present Paroxysmal A-fib (HCC) 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) Dysphagia, unspecified type Rash Hyperkalemia Environmental allergies Type 2 diabetes mellitus with diabetic polyneuropathy, without long-term current use of insulin (HCC) Mood disorder Major neurocognitive disorder (HCC) Dyslipidemia NIGHAT (obstructive sleep apnea) Right hip pain Routine - Once for 1 Occurrences starting 02/19/2025 until 02/19/2025 documented as of this encounter Procedures Procedure Name Priority Date/Time Associated Diagnosis Comments GLUCOSE METER POC Routine 03/08/2025 8:46 AM EDT ECG AND WAVEFORMS - TELEMETRY Routine 03/08/2025 7:39 AM EDT CBC Timed 03/08/2025 6:54 AM EDT ECG AND WAVEFORMS - TELEMETRY Routine 03/07/2025 8:37 PM EDT GLUCOSE METER POC Routine 03/07/2025 8:18 PM EDT ECG AND WAVEFORMS - TELEMETRY Routine 03/07/2025 7:00 PM EDT GLUCOSE METER POC Routine 03/07/2025 5:41 PM EDT GLUCOSE METER POC Routine 03/07/2025 11:23 AM EDT GLUCOSE METER POC Routine 03/07/2025 8:15 AM EDT ECG AND WAVEFORMS - TELEMETRY Routine 03/07/2025 7:18 AM EDT GLUCOSE METER POC Routine 03/06/2025 8:48 PM EDT ECG AND WAVEFORMS - TELEMETRY Routine 03/06/2025 8:11 PM EDT GLUCOSE METER POC Routine 03/06/2025 4:26 PM EDT GLUCOSE METER POC Routine 03/06/2025 11:37 AM EDT GLUCOSE METER POC Routine 03/06/2025 7:30 AM EDT ECG AND WAVEFORMS - TELEMETRY Routine 03/06/2025 7:28 AM EDT CBC Timed 03/06/2025 6:19 AM EDT ECG AND WAVEFORMS - TELEMETRY Routine 03/06/2025 1:27 AM EDT ECG AND WAVEFORMS - TELEMETRY Routine 03/05/2025 9:42 PM EDT GLUCOSE METER POC Routine 03/05/2025 8:50 PM EDT GLUCOSE METER POC Routine 03/05/2025 4:34 PM EDT GLUCOSE METER POC Routine 03/05/2025 11:51 AM EDT GLUCOSE METER POC Routine 03/05/2025 8:45 AM EDT ECG AND WAVEFORMS - TELEMETRY Routine 03/05/2025 7:03 AM EDT GLUCOSE METER POC Routine 03/04/2025 8:35 PM EDT ECG AND WAVEFORMS - TELEMETRY Routine 03/04/2025 7:41 PM EDT GLUCOSE METER POC Routine 03/04/2025 5:11 PM EDT GLUCOSE METER POC Routine 03/04/2025 11:57 AM EDT GLUCOSE METER POC Routine 03/04/2025 8:19 AM EDT ECG AND WAVEFORMS - TELEMETRY Routine 03/04/2025 7:00 AM EDT CBC Timed 03/04/2025 6:09 AM EDT GLUCOSE METER POC Routine 03/03/2025 8:08 PM EDT ECG AND WAVEFORMS - TELEMETRY Routine 03/03/2025 7:00 PM EDT GLUCOSE METER POC Routine 03/03/2025 4:16 PM EDT GLUCOSE METER POC Routine 03/03/2025 12:22 PM EDT GLUCOSE METER POC Routine 03/03/2025 8:39 AM EDT ECG AND WAVEFORMS - TELEMETRY Routine 03/03/2025 7:21 AM EDT GLUCOSE METER POC Routine 03/02/2025 8:17 PM EDT ECG AND WAVEFORMS - TELEMETRY Routine 03/02/2025 7:14 PM EDT GLUCOSE METER POC Routine 03/02/2025 4:40 PM EDT VA US LOWER EXTREMITY VENOUS BILATERAL Routine 03/02/2025 2:12 PM EDT GLUCOSE METER POC Routine 03/02/2025 12:10 PM EDT IP CONSULT TO INTERVENTIONAL RADIOLOGY Routine 03/02/2025 12:08 PM EDT Procedure Note - Merry Fuentes PA - 03/02/2025 12:42 PM EDTThis note is in progress. Images from the original note were not included. INTERVENTIONAL RADIOLOGY PE CONSULT HPI: Patient is a 89 y/o male s/p right hip arthrotomy with extensivedebridement and head and liner exchange for infection. Per chart, patientcomplaining of chest pain 03/01/25. CTPA ordered and with evidence of PE ofleft lower lobe without RV strain. PMHx significant for DM2, Afib, CHF Dyslipidemia, and s/p Total Right Hipreplacement in 2021. Spoke with Dr. Henson directly via phone regarding consult for PE. Patienthemodynamically stable at this time, and on Heparin gtt. PMH: History reviewed. No pertinent past medical history. Surg Hx: Past Surgical History: Procedure Laterality Date BEDSIDE PICC INSERTION (PICC TEAM RN) 02/26/2025 TOTAL HIP ARTHROPLASTY Right 02/22/2025 Right hip Incision & Drainage with head/liner exchange; Surgeon: Mason Jacome DO; Location: [facility] OR; Service: Orthopedics Meds: Prior to Admission medications Medication Sig Start Date End Date Last Dose Authorizing Provider apixaban (ELIQUIS) 5 mg Oral Tablet Take 0.5 Tablets by mouth 2 timesdaily for 14 days. 02/23/25 03/09/25 Mason Jacome DO atorvastatin (LIPITOR) 40 mg Oral Tablet Take 40 mg by mouth daily.Taking Provider, Historical calcium carbonate-vitamin D3 250 mg-3.125 mcg (125 unit) Oral Tablet Take1 Tablet by mouth daily. Taking Provider, Historical ceFAZolin in dextrose (ANCEF) 2 gram/100 mL IV Piggyback Inject 100 mLinto the vein every 8 hours for 113 doses. 02/27/25 04/06/25 Katie Viera APRN donepeziL (ARICEPT) 5 mg Oral Tablet Take 5 mg by mouth nightly. TakingProvider, Historical DULoxetine (CYMBALTA) 60 mg Oral Capsule, Delayed Release(E.C.) Take 60 mgby mouth daily. Taking Provider, Historical fluticasone propionate (FLONASE) 50 mcg/actuation Nasl [place], Suspension 2Sprays by Nasal route 2 times daily as needed for Allergies. TakingProvider, Historical fUROsemide (LASIX) 20 mg Oral Tablet Take 20 mg by mouth daily. TakingProvider, Historical metFORMIN (GLUCOPHAGE) 500 mg Oral Tablet Take 500 mg by mouth 2 timesdaily. Taking Provider, Historical polyvinyl alcohol (LIQUIFILM TEARS) 1.4 % Opht Drops Place 1 Drop intoboth eyes as needed for Dry Eyes. Taking Provider, Historical tamsulosin (FLOMAX) 0.4 mg Oral Capsule Take 0.8 mg by mouth daily.Taking Provider, Historical Vitals: Vitals: 03/02/25 1137 BP: 117/62 Pulse: 78 Resp: 17 Temp: 97.7 F (36.5 C) SpO2: 94% CTPA: CT PULMONARY ANGIOGRAM, 03/01/2025 4:36 PM PESI (or sPESI): Class V, Very High Risk: 10.0-24.5% 30-day mortality inthis group. Trop: 36 -> 37 NT pro-BNP: 4,590 Lactic acid: 1.4 RV dysfunction: No RV dysfunction per CTPA, RV systolic function normal onECHO Echo: performed 03/01/25 IMPRESSION Conclusions * Left ventricular chamber dimension is enlarged. * Left ventricular function is severely reduced with an estimatedejection fraction of 20%. * Left ventricular segmental wall motion is abnormal with paradoxicalseptal motion and regional variation. * The left ventricular diastolic function is consistent with grade III diastolic dysfunction / restrictive physiology (elevated left atrial pressure). * There is low flow, low gradient severe aortic valve stenosis presentwith a stroke volume index of 19.50 ml/m2, a peak aortic valve velocity of307 cm/s, a mean gradient of 27 mmHg, and an aortic valve area of 0.66 cm2. Dimensionless Index 0.17. * There is moderate mitral valve regurgitation. * Right ventricular systolic function is normal. * Estimated pulmonary artery systolic pressure is 40 mmHg. LE Doppler: Ordered per chart - not yet done Contraindication to TPA: ESC classification: Intermediate-Low Risk Assessment: 89 y.o. male with ESC Intermediate-Low Risk PE. Recommend conservative management with anticoagulation alone. Plan: Patient case and imaging reviewed with Dr. Antonio. Clot appears to besubsegmental and without evidence of RH strain on CTPA or ECHO.Hemodynamically stable per chart. IR recommending conservative treatmentwith anticoagulation. No plans for IR procedural intervention at this time. Should patient become hemodynamically unstable or unable to tolerateanticoagulation, please re-consult IR as needed for further evaluation. Please contact IR department with questions or concerns. Signature: Merry Fuentes PA-C 03/02/25 1:51 PM GLUCOSE METER POC Routine 03/02/2025 7:51 AM EDT ECG AND WAVEFORMS - TELEMETRY Routine 03/02/2025 7:32 AM EDT CBC WITH DIFF Routine 03/02/2025 6:18 AM EDT BASIC METABOLIC PANEL Routine 03/02/2025 6:18 AM EDT HEPARIN ANTI-XA, UNF Early AM 03/02/2025 6:00 AM EDT EXTRA TUBES PANEL Routine 03/02/2025 6:00 AM EDT EXTRA MINT GREEN LI Routine 03/02/2025 6:00 AM EDT EXTRA LAVENDER Routine 03/02/2025 6:00 AM EDT PARTIAL THROMBOPLASTIN TIME Early AM 03/02/2025 6:00 AM EDT GLUCOSE METER POC Routine 03/01/2025 9:27 PM EDT HEPARIN ANTI-XA, UNF STAT 03/01/2025 7:45 PM EDT PARTIAL THROMBOPLASTIN TIME STAT 03/01/2025 7:45 PM EDT ECG AND WAVEFORMS - TELEMETRY Routine 03/01/2025 7:00 PM EDT IP CONSULT TO PULMONOLOGY Routine 03/01/2025 6:46 PM EDT Procedure Note - Ida Henson MD - 03/02/2025 4:55 PM EDTThis note is in progress. Images from the original note were not included. INITIAL CONSULT 03/02/2025 dIa Henson MD HISTORY OF PRESENT ILLNESS Chief Complaint: Right hip pain Reason for consult: PE, discussed with IR and DR Fernandez Present Illness 89 y.o. male with multiple medical problems including but not limited toright hip pain admitted on 02/16 and found to have a right hip effusion witha history of MEKA, MRI showed possible abscess IR aspirated culture waspositive for MSSA, antibiotic management per ID. With a goal of cefazolinx 6 weeks. Obviously patient had worsening shortness of breath a CT scan of the chestshowed pulmonary emboli in the left lower lobe subsegmental with elevatedBNP slightly elevated troponin, paradoxical movement of the septum (inpresence of bundle branch block) with the patient's EF of 20% and elevatedpulmonary artery pressure (previously 25% with no pulmonary arterypressure) In addition to shortness of breath pulmonary were consulted for ouropinion as well as management in addition for patient was pulmonary emboliand pleural effusion At present patient is on 2 L nasal cannula saturation 95% afebriletemperature is 97.7 with a creatinine of 0.86 and hemoglobin of 9.3 andwhite blood cells of 9.5 No nausea vomiting diarrhea, pending studies for lower extremity duplex By evaluating patient Family pulmonary history: Non-contributory History reviewed. No pertinent past medical history. Past Surgical History: Procedure Laterality Date BEDSIDE PICC INSERTION (PICC TEAM RN) 02/26/2025 TOTAL HIP ARTHROPLASTY Right 02/22/2025 Right hip Incision & Drainage with head/liner exchange; Surgeon: Mason Jacome DO; Location: [facility] OR; Service: Orthopedics Allergies Allergen Reactions Tetanus Vaccines And Toxoid Swelling Pt also states blisters with swelling Current Meds apixaban 10 mg Oral BID Followed by [START ON 03/09/2025] apixaban 5 mg Oral BID aspirin 81 mg Oral Daily atorvastatin 40 mg Oral Daily bisacodyL 10 mg Oral BID Or bisacodyL 10 mg Rectal BID calcium carbonate-vitamin D 1 Tablet Oral Daily WM ceFAZolin 1 g Intravenous 3 times per day docusate sodium 100 mg Oral BID donepeziL 5 mg Oral Nightly DULoxetine 60 mg Oral Daily insulin aspart U-100 1-15 Units Subcutaneous QID WM insulin glargine 8 Units Subcutaneous BID (Insulin) magnesium hydroxide 30 mL Oral Daily miconazole Topical BID midodrine 7.5 mg Oral TID WM mupirocin Nasal BID pantoprazole 40 mg Oral Daily polyethylene glycol 17 g Oral Daily senna 17.2 mg Oral BID sodium chloride 0.9% 10 mL Intravenous 3 times per day sodium chloride 0.9% Intravenous 2 times per day tamsulosin 0.4 mg Oral Daily tobramycin-dexamethasone Right Eye TID PRN Meds acetaminophen, alteplase, aluminum & magnesiumhydroxide-simethicone, dextrose, fluticasone propionate, glucagon ANDsterile water, melatonin, oxyCODONE, polyvinyl alcohol, sodium chloride0.9 % 250 mL IV bolus, sodium chloride 0.9%, sodium chloride 0.9%, sodiumchloride 0.9%, sodium chloride 0.9% Infusions Family history No family history on file. Social History Steve Review of Systems Review of systems including general/constitutional, visual, auditory,cardiovascular, respiratory, endocrine, hematologic, GI, , neurological,musculoskeletal and psychiatric was negative with the exception of thepositives mentioned in the HPI EXAMINATION VS BP: 90/53 Temp: 97.7 F (36.5 C) SpO2: 95 % HR: 78 Resp: 17 O2 Device: Nasal cannula O2 Flow Rate (L/min): 2 lpm Weight at Admission: 02/16/2025 251 lb 12.3 oz (114.2 kg) Wt Readings from Last 2 Encounters: 03/02/25 285 lb 3.2 oz (129.4 kg) I/Os Intake/Output Summary (Last 24 hours) at 03/02/2025 1655 Last data filed at 03/02/2025 1537 Gross per 24 hour Intake 600 ml Output 2100 ml Net -1500 ml General appearance: Chronically ill-appearing, Overweight in no acutedistress, while on O2 supplementation. Head: normocephalic and atraumatic Eyes: pupils equal round and reactive to light and sclera anicteric ENT: mucous membranes moist, oral hygiene is good Neck/Lymphatic: supple, no adenopathy, and no thyromegaly Respiratory System: Decreased breath sounds in the bases few rhonchi fromthe bases Cardiovascular: Irregular positive systolic murmur at the apex as well asat the right border sternal Gastrointestinal: soft, nontender, nondistended, no mass, and no rigidityor gross organomegaly Musculoskeletal: +1/2 edema Neurological: Alert, non-focal and following simple commands Dermatological: Normal DATA REVIEWED I have personally reviewed the following data: Lab Results Component Value Date/Time GLU 78 03/02/2025 06:18 AM BUN 15 03/02/2025 06:18 AM CREATININE 0.86 03/02/2025 06:18 AM NA 134 (L) 03/02/2025 06:18 AM K 4.2 03/02/2025 06:18 AM CL 101 03/02/2025 06:18 AM CO2 23 03/02/2025 06:18 AM CALCIUM 8.0 (L) 03/02/2025 06:18 AM MG 2.0 03/01/2025 09:31 AM PHOS 2.5 03/01/2025 09:31 AM Recent Labs 02/27/25 0902 02/27/25 1721 02/28/25 1700 03/01/25 0931 03/02/25 0618 WBC 7.5 -- -- 7.7 9.5 HGB 9.9* < > 9.7* 11.6* 9.3* HCT 30.3* < > 30.5* 35.5* 29.0* PLT 266 -- -- 252 280 < > = values in this interval not displayed. Results for orders placed or performed during the hospital encounter of02/16/25 (from the past 2 weeks) WOUND CULTURE (STAIN INCLUDED) Collection Time: 02/19/25 12:43 PM Specimen: Hip, Right; Aspirate Result Value Ref Range Culture Positive Growth (A) Culture Moderate growth of Staphylococcus aureus PBP2a test Negative Stain Moderate WBCs Stain No organisms seen Susceptibility Staphylococcus aureus - SUSCEPTIBILITY RESULT* Ampicillin Cefazolin Ceftaroline Ceftriaxone Chloramphenicol <=8 Susceptible ug/mL Ciprofloxacin >2 Resistant ug/mL Clindamycin <=0.25 Susceptible ug/mL Daptomycin Erythromycin <=0.25 Susceptible ug/mL Gentamicin 4 Susceptible ug/mL Gentamicin synergy Levofloxacin >4 Resistant ug/mL Linezolid Moxifloxacin 2 Resistant ug/mL Nitrofurantoin Oxacillin <=0.25 Susceptible ug/mL Penicillin Rifampin <=1 Susceptible ug/mL Streptomycin synergy Synercid Tetracycline <=2 Susceptible ug/mL Tigecycline Trimethoprim/Sulfamethoxazole <=0.5/9.5 Susceptible ug/mL Vancomycin 1 Susceptible ug/mL * Rifampin and Gentamicin should not be used alone for antimicrobialtherapy. For methicillin resistant staphylococci, ciprofloxacin shouldalso not be used alone. ANAEROBIC CULTURE (NO STAIN) Collection Time: 02/19/25 12:43 PM Specimen: Hip, Right; Aspirate Result Value Ref Range Culture No anaerobic growth at 5 days. FUNGUS STAIN (STAIN ONLY) Collection Time: 02/19/25 12:43 PM Specimen: Hip, Right; Aspirate Result Value Ref Range Fungal Stain No yeast or fungal elements seen. No yeast or fungalelements seen. ACID FAST BACILLI CULTURE AND SMEAR (STAIN INCLUDED) Collection Time: 02/19/25 12:43 PM Specimen: Hip, Right; Aspirate Result Value Ref Range AFB Stain SEE NOTE AFB Culture SEE NOTE ANAEROBIC CULTURE (NO STAIN) Collection Time: 02/22/25 9:03 AM Specimen: Hip, Right; Tissue Result Value Ref Range Culture No anaerobic growth at 5 days. WOUND CULTURE (STAIN INCLUDED) Collection Time: 02/22/25 9:03 AM Specimen: Hip, Right; Tissue Result Value Ref Range Culture No growth at 94 hours. Stain Moderate RBCs Stain Rare WBCs Stain No organisms seen FUNGUS CULTURE (NO STAIN) Collection Time: 02/22/25 9:03 AM Specimen: Hip, Right; Tissue Result Value Ref Range Culture No growth of fungus at 5 days. ANAEROBIC CULTURE (NO STAIN) Collection Time: 02/22/25 9:05 AM Specimen: Hip, Right; Tissue Result Value Ref Range Culture No anaerobic growth at 5 days. WOUND CULTURE (STAIN INCLUDED) Collection Time: 02/22/25 9:05 AM Specimen: Hip, Right; Tissue Result Value Ref Range Culture No growth at 94 hours. Stain Few RBCs Stain No WBCs seen Stain No organisms seen FUNGUS CULTURE (NO STAIN) Collection Time: 02/22/25 9:05 AM Specimen: Hip, Right; Tissue Result Value Ref Range Culture No growth of fungus at 5 days. ANAEROBIC CULTURE (NO STAIN) Collection Time: 02/22/25 9:05 AM Specimen: Hip, Right; Tissue Result Value Ref Range Culture No anaerobic growth at 5 days. WOUND CULTURE (STAIN INCLUDED) Collection Time: 02/22/25 9:05 AM Specimen: Hip, Right; Tissue Result Value Ref Range Culture No growth at 94 hours. Stain Few RBCs Stain No WBCs seen Stain No organisms seen FUNGUS CULTURE (NO STAIN) Collection Time: 02/22/25 9:05 AM Specimen: Hip, Right; Tissue Result Value Ref Range Culture No growth of fungus at 5 days. BLOOD CULTURE (NO STAIN) Collection Time: 02/23/25 2:55 PM Specimen: Blood, Venous Result Value Ref Range Culture Result No Growth at 120 hours. BLOOD CULTURE (NO STAIN) Collection Time: 02/23/25 4:06 PM Specimen: Blood, Venous Result Value Ref Range Culture Result No Growth at 120 hours. BLOOD CULTURE (NO STAIN) Collection Time: 03/01/25 9:59 AM Specimen: Blood, Venous Result Value Ref Range Culture Result No Growth at 24 hours. BLOOD CULTURE (NO STAIN) Collection Time: 03/01/25 10:09 AM Specimen: Blood, Venous Result Value Ref Range Culture Result No Growth at 24 hours. STAPHYLOCOCCUS AUREUS SCREEN Collection Time: 03/01/25 10:29 AM Specimen: Nares; Swab Result Value Ref Range Staph aureus PCR Detected (A) Not Detected MRSA PCR Not Detected Not Detected Pulmonary Studies: No PFT/PSG/6MWT done recently ECHO: No results found for this or any previous visit. Imaging studies: Most recent Imaging: [facility] LOWER EXTREMITY VENOUS BILATERAL Conclusions * No evidence of deep vein thrombosis identified in the bilaterallower extremities. * No evidence of superficial thrombosis identified in the bilaterallower extremities. [facility] LOWER EXTREMITY VENOUS BILATERAL Result Date: 03/02/2025 Conclusions * No evidence of deep vein thrombosis identified in thebilateral lower extremities. * No evidence of superficial thrombosisidentified in the bilateral lower extremities. CT chest: 03/01/2025 CT PULMONARY ANGIOGRAM, 03/01/2025 4:36 PM CLINICAL HISTORY: -Chest PAin r/o PE. COMPARISON: None. FINDINGS: Adequate visualization of the pulmonary arteries to the segmental/subsegmental level. Filling defects within segmental and subsegmental pulmonary arteries leftlower lobe as well as the distal left lobar pulmonary artery. No radiologicfindings to suggest heart strain. No aortic arch aneurysm. Moderate left and small right pleural effusions. Mildly enlargedmediastinal and right hilar lymph nodes measuring up to 1.1 cm in short axis. No pneumothorax. Mild opacities posterior lower lobes and posterior rightupper lobe. Coronary artery calcification: Moderate. IMPRESSION: Positive for pulmonary emboli in the left lower lobe. Bilateral pleural effusions. Atelectasis versus infection as above. Mild adenopathy which may be reactive. Direct communication to care team using [employer] Secure Chat. Notification included: OZZIE FERNANDEZ Approximate date and time: 03/01/2025 6:07 PM Note: Radiology results need to be interpreted within a comprehensiveclinical context. If you have questions about the radiology report, please contactthe office of the ordering clinician. MEDICAL DECISION MAKING Assessment: Right hip pain [M25.551] Active Hospital Problems Diagnosis *Right hip pain Hypotension Other chest pain Abdominal pain Elevated d-dimer MSSA (methicillin susceptible Staphylococcus aureus) infection Conjunctival hyperemia of right eye NIGHAT (obstructive sleep apnea) Dyslipidemia Major neurocognitive disorder (HCC) Mood disorder Type 2 diabetes mellitus with diabetic polyneuropathy, without long-termcurrent use of insulin (HCC) Environmental allergies Hyperkalemia Rash Dysphagia 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) Paroxysmal A-fib (HCC) BPH (benign prostatic hyperplasia) Shortness of breath is multifactorial secondary to 1. New left lower pulmonary artery subsegmental pulmonary emboli No DVT in lower extremities 2. Bilateral pleural effusions 3. Severe congestive mixed systolic/diastolic heart failure I do believethat the patient's EF 20% is overestimated 4. Severe valvular heart disease with severe aortic stenosis and severeMR 5. Pulmonary hypertension most likely in my opinion related to group 2rather to group 4 also group III nighat Right hip infection with MSSA. Code Status: DNR I highly recommend DO NOT RESUSCITATE DO NOT INTUBATE Plan: By evaluating patient and reviewing the data I do believe that the patienthas low intermediate risk PE, consulted with IR for either continuation ofanticoagulation versus proceeding with a catheter directed thrombolytictherapy I am in favor of continuation of anticoagulation as I do believethat the elevation of troponin and the BNP as well as the pulmonarypressure is because patient has heart failure, severe aortic stenosis,history of severe moderate mitral regurgitation..... And these aresubsegmental Pes IR agrees with the plan of anticoagulation, he was on atrial fibrillationEliquis dosing that was changed to a loading dose/pulmonary embolidosing Patient's will need maximization of his heart failure I do not see a needfor thoracentesis at this time I do believe the patient's will needdiuresis patient will need to be evaluated by cardiology/valvularstructural for maximization of management and I do believe this is themain issue with patient's condition other than current infection Discussed thoroughly with the patient as well as his son Discussed with RN, RT. Care team Thank you for the opportunity to participate in the care of yourpatient. Ida Henson MD Pulmonary and Critical Care Medicine 615 Disclaimer- This note was completed using voice recognition software.Despite my review, it may still contain unintended errors, typos etc.Please do not hesitate to contact me through hospital EZ-Appsing service withquestions. IP CONSULT TO PHARMACY Routine 03/01/2025 6:38 PM EDT GLUCOSE METER POC Routine 03/01/2025 5:[address] ABDOMEN PELVIS W CONTRAST LM 03/01/2025 4:[address] ANGIOGRAM PULMONARY W CONTRAST LM 03/01/2025 4:36 PM EDT IP CONSULT TO WOUND CARE Routine 03/01/2025 3:56 PM EDT EC ECHOCARDIOGRAM LIMITED W CONTRAST Routine 03/01/2025 3:20 PM EDT GLUCOSE METER POC Routine 03/01/2025 1:49 PM EDT ECG AND WAVEFORMS - TELEMETRY Routine 03/01/2025 1:02 PM EDT TROPONIN-T HIGH SENSITIVITY 2HR Timed 03/01/2025 11:24 AM EDT IP CONSULT TO CARDIOLOGY Routine 03/01/2025 10:35 AM EDT Procedure Note - Quinten Perez MD - 03/02/2025 8:30 AM EDTThis note is in progress. Heart & Vascular Consult Note PATIENT: Steve King 12 PCP: No Pcp, Per Patient Primary Associate Professor Of Library Science: Dr. Bosch at [facility] I would like to thank Ozzie Fernandez MD for requesting me to see Lisa for cardiac consultation for chest pain. History provided by: EMR, patient HPI: Steve King is a 89 y.o. male with PMHx HFrEF, ASHD s/p remote stent +Sep 2023 ANN to LAD, NIGHAT intolerant to PAP rx, PAF s/p DCCV Jun 2024, ModAS, Mod to severe MR, LBBB who presented to the hospital 02/16/25 with righthip pain. 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 Yesterday a code chest pain was called, so our team is consulted. Hepoints to his left upper abdomen when asked where he has pains. He statesit is a constant pain that he has had for a couple years. It is notreproducible or pleuritic. Pain medications help. Otherwise he denieschest pain/dyspnea, dizziness, falls or syncope. CTA Chest found PE in LLL 03/01/25 Echocardiogram: 03/01/25 EF 20%, grade III DD, low flow, low gradientsevere , mod MR, PASP 40 09/2024 EF 26-30%, LVH, mod , mod to severe MR, RVSP normal Coronary angiography: 09/2023 Angiographically, the patient has severesingle coronary artery atherosclerosis. There is elevated filling pressure with < 20 mmHg gradient across the aortic valvesuggestive of non-significant aortic stenosis. Percutaneous interventionto the left anterior descending artery was performed for dyspneaequivalent angina. EKG SR 1st degree AVB, LBBB Family History- No family history on file. Social History- Social History Tobacco Use Smoking status: Not on file Smokeless tobacco: Not on file Substance Use Topics Alcohol use: Not on file ROS: Denies: Constitutional: fever, chills, weight loss ENT: headaches, LOC, runny nose Cardiovascular: chest pain, edema, palpitations, orthopnea, dyspnea, orsyncope Per HPI Past Medical History History reviewed. No pertinent past medical history. IMAGERY INTELLIGENCE Medications: Prior to Admission medications Medication Sig Start Date End Date Last Dose Authorizing Provider apixaban (ELIQUIS) 5 mg Oral Tablet Take 0.5 Tablets by mouth 2 timesdaily for 14 days. 02/23/25 03/09/25 Mason Jacome DO atorvastatin (LIPITOR) 40 mg Oral Tablet Take 40 mg by mouth daily.Taking Provider, Historical calcium carbonate-vitamin D3 250 mg-3.125 mcg (125 unit) Oral Tablet Take1 Tablet by mouth daily. Taking Provider, Historical ceFAZolin in dextrose (ANCEF) 2 gram/100 mL IV Piggyback Inject 100 mLinto the vein every 8 hours for 113 doses. 02/27/25 04/06/25 Katie Viera APRN donepeziL (ARICEPT) 5 mg Oral Tablet Take 5 mg by mouth nightly. TakingProvider, Historical DULoxetine (CYMBALTA) 60 mg Oral Capsule, Delayed Release(E.C.) Take 60 mgby mouth daily. Taking Provider, Historical fluticasone propionate (FLONASE) 50 mcg/actuation Nasl [place], Suspension 2Sprays by Nasal route 2 times daily as needed for Allergies. TakingProvider, Historical fUROsemide (LASIX) 20 mg Oral Tablet Take 20 mg by mouth daily. TakingProvider, Historical metFORMIN (GLUCOPHAGE) 500 mg Oral Tablet Take 500 mg by mouth 2 timesdaily. Taking Provider, Historical polyvinyl alcohol (LIQUIFILM TEARS) 1.4 % Opht Drops Place 1 Drop intoboth eyes as needed for Dry Eyes. Taking Provider, Historical tamsulosin (FLOMAX) 0.4 mg Oral Capsule Take 0.8 mg by mouth daily.Taking Provider, Historical Inpatient Medications: atorvastatin 40 mg Oral Daily bisacodyL 10 mg Oral BID Or bisacodyL 10 mg Rectal BID calcium carbonate-vitamin D 1 Tablet Oral Daily WM ceFEPIme (MAXIPIME) IVPB 1 g Intravenous 3 times per day docusate sodium 100 mg Oral BID donepeziL 5 mg Oral Nightly DULoxetine 60 mg Oral Daily insulin aspart U-100 1-15 Units Subcutaneous QID WM insulin glargine 8 Units Subcutaneous BID (Insulin) magnesium hydroxide 30 mL Oral Daily metroNIDAZOLE 500 mg Intravenous 3 times per day miconazole Topical BID midodrine 7.5 mg Oral TID WM mupirocin Nasal BID pantoprazole 40 mg Oral Daily polyethylene glycol 17 g Oral Daily senna 17.2 mg Oral BID sodium chloride 0.9% 10 mL Intravenous 3 times per day sodium chloride 0.9% Intravenous 2 times per day tamsulosin 0.4 mg Oral Daily tobramycin-dexamethasone Right Eye TID vancomycin (VANCOCIN) IVPB (Orderable) 1,750 mg Intravenous Q18H heparin (porcine) 1,600 Units/hr (03/02/25 0801) Past Surgical History Past Surgical History: Procedure Laterality Date BEDSIDE PICC INSERTION (PICC TEAM RN) 02/26/2025 TOTAL HIP ARTHROPLASTY Right 02/22/2025 Right hip Incision & Drainage with head/liner exchange; Surgeon: Mason Jacome DO; Location: [facility] MAIN OR; Service: Orthopedics Allergy Allergies Allergen Reactions Tetanus Vaccines And Toxoid Swelling Pt also states blisters with swelling Patient Active Problem List Diagnosis Right hip pain NIGHAT (obstructive sleep apnea) Dyslipidemia Major neurocognitive disorder (HCC) Mood disorder Type 2 diabetes mellitus with diabetic polyneuropathy, without long-termcurrent use of insulin (HCC) Environmental allergies Hyperkalemia Rash Dysphagia 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) Paroxysmal A-fib (HCC) BPH (benign prostatic hyperplasia) Right hip joint effusion MSSA (methicillin susceptible Staphylococcus aureus) infection Conjunctival hyperemia of right eye Hypotension Other chest pain Abdominal pain Elevated d-dimer BP (!) 89/63 (BP Location: Right arm, Patient Position: Semi Fowlers) Pulse 80 Temp 98.4 F (36.9 C) (Oral) Resp 17 Ht 6' 4 (1.93 m) Wt 285 lb 3.2 oz (129.4 kg) SpO2 97% BMI 34.72 kg/m I/O 24 hours: Intake/Output Summary (Last 24 hours) at 03/02/2025 0830 Last data filed at 03/02/2025 0357 Gross per 24 hour Intake 83 ml Output 1600 ml Net -1517 ml Diagnostic tests The most recent cardiovascular imaging studies available in [facility] EMR werereviewed at time of consultation Heart Failure Documentation NYHA Functional Class: III ACC/AHA Stage: C Is the patient prescribed an KIKE/ARB/ARNi?: No If no: Contraindication Is the patient presribed a beta cedric?: No If no: Contraindication Is the patient prescribed an aldosterone antagonist?: No If no: Contraindication Is the patient prescribed a SGLT2 inhibitor?: No If no: Contraindication Does the patient have an ICD for primary prevention of SCD if EF < 35%?:No If no: GDMT still being optimized Does the patient have ONCOLOGY TRANSPLANT NETWORK MANAGER?: No If no: GDMT still being optimized Has the patient completed Cardiac Rehab for Heart Failure?: No If no: Not a Candidate If not a candidate: Other Are there Advanced Care Planning (ACP) documents on file?: No If no, was ACP discussed with the patient?: No Will continue to optimize GDMT and device-based therapies for HFrEF.: Last Reviewed/Updated: 03/02/25 Last Reviewed/Updated By: Ricarda Velasquez,EVS MANAGER Exam: Pt lying in bed in no distress. Head: Atraumatic, normocephalic. Neck: supple Heart: S1, S2 reg rate/rhythm , + SM Lung: clear Abd: soft, nontender, +BS Ext: no edema Neuro: Alert and oriented x 3 Mood and affect: appropriate Skin: warm and dry Telemetry: SR Assessment/Plan: Prothestic hip joint infection - s/p OR 02/22 - ortho S/O - per ID/primary Hypotension - on midodrine started 03/01/25 Acute PE - diagnosed 03/01 - hep gtt ASHD - s/p remote stent + Sep 2023 ANN to LAD - code chest pain called 03/01, pain is actually LLQ of abd - trop 36-37, flat/not c/w ACS - ECG unchanged - GDMT: statin, hep gtt, start ASA HFrEF VHD - 03/01/25 EF 20%, grade III DD, low flow, low gradient severe , mod MR,PASP 40 - per notes at [facility] Sep 2024, was considering valve surgery, person- was told he is not a good candidate - No GDMT d/t hypotension- on midodrine now PAF s/p DCCV Jun 2024 - [id number] score is 5 with 6.7% annual stroke risk due to Chronicheart failure (1), Vascular Disease (1), DM (1), and Age, >75 (2). - was changed from low dose eliquis to hep gtt 03/01 - remains SR on tele Chronic LBBB DM - A1c 9.21 February 2025 NIGHAT intolerant to PAP rx Anemia - HGB 11.6-9.3 (baseline appears to be in 9s) Dementia - per primary DVT Prophylaxis: heparin gtt Further input from Dr. Chris Velasquez, EVS MANAGER Heart and Vascular 03/02/2025 Disposition Perspective - Medically Ready for Discharge: No Anticipated Discharge: > 3 days Discharge when / if: pending improvement Pt was seen in conjunction with a mid-level provider. I obtained the history from the patient. I personally examined this patient. I discussed the plan with pt I placed orders in chart. Pt with above history. Rt hip pain, s/p surgery. Then cp yesterday, code called, he tells me thathe had a pulled muscle in rt abd going to lf chest, yesterday, has hadthis pain off and on for 3 years. Lasted for an hour. No pain now. On exam VSS Neck no JVD CVS s1, s2 irr RS no rales or rhonchi Abd soft + BS Ext no edema EKG by my interpretation: SR, first degree AV block, IVCD Labs noted Plan. Chest and abd pain Reproducible Atypical Troponin elevation, not indicative of ACS ASHD S/p PCI Med Rx. ASA On IV heparin Acute PE on CT IV heparin Hypotension Midodrine Hip surgery. Infection Abx ID consulted. Afib CVR Severe CM Not overtly decompensated. LBBB DM Pt weak and frail Elevated risk. I personally performed medical decision making in its entirety. Quinten Perez MD, [facility] ECG AND WAVEFORMS - TELEMETRY Routine 03/01/2025 10:33 AM EDT STAPHYLOCOCCUS AUREUS SCREEN Routine 03/01/2025 10:29 AM EDT BLOOD CULTURE (NO STAIN) Routine 03/01/2025 10:09 AM EDT BLOOD CULTURE (NO STAIN) Routine 03/01/2025 9:59 AM EDT BLOOD GAS, VENOUS Routine 03/01/2025 9:38 AM EDT TROPONIN-T HIGH SENSITIVITY BASELINE W/ REFLEX STAT 03/01/2025 9:31 AM EDT EXTRA TUBES PANEL Routine 03/01/2025 9:31 AM EDT EXTRA LAVENDER Routine 03/01/2025 9:31 AM EDT CBC STAT 03/01/2025 9:31 AM EDT PROCALCITONIN STAT 03/01/2025 9:31 AM EDT PARTIAL THROMBOPLASTIN TIME STAT 03/01/2025 9:31 AM EDT PT / INR STAT 03/01/2025 9:31 AM EDT D-DIMER Routine 03/01/2025 9:31 AM EDT C-REACTIVE PROTEIN STAT 03/01/2025 9:31 AM EDT PHOSPHORUS LEVEL STAT 03/01/2025 9:31 AM EDT NT PROBNP STAT 03/01/2025 9:31 AM EDT MAGNESIUM LEVEL STAT 03/01/2025 9:31 AM EDT LACTIC ACID STAT 03/01/2025 9:31 AM EDT HEPATIC FUNCTION PANEL Add-On 03/01/2025 9:31 AM EDT BASIC METABOLIC PANEL STAT 03/01/2025 9:31 AM EDT IP CONSULT TO PHARMACY STAT 03/01/2025 9:22 AM EDT GLUCOSE METER POC Routine 03/01/2025 9:21 AM EDT XR CHEST AP PORTABLE STAT 03/01/2025 9:20 AM EDT EK EKG 12 LEAD STAT 03/01/2025 9:16 AM EDT GLUCOSE METER POC Routine 03/01/2025 8:20 AM EDT GLUCOSE METER POC Routine 02/28/2025 9:12 PM EDT GLUCOSE METER POC Routine 02/28/2025 6:07 PM EDT HEMOGLOBIN AND HEMATOCRIT Timed 02/28/2025 5:00 PM EDT GLUCOSE METER POC Routine 02/28/2025 1:08 PM EDT GLUCOSE METER POC Routine 02/28/2025 10:47 AM EDT HEMOGLOBIN AND HEMATOCRIT Timed 02/28/2025 5:16 AM EDT C-REACTIVE PROTEIN Routine 02/28/2025 5:16 AM EDT GLUCOSE METER POC Routine 02/27/2025 9:12 PM EDT HEMOGLOBIN AND HEMATOCRIT Timed 02/27/2025 5:21 PM EDT GLUCOSE METER POC Routine 02/27/2025 4:52 PM EDT GLUCOSE METER POC Routine 02/27/2025 11:27 AM EDT CBC WITH DIFF Routine 02/27/2025 9:02 AM EDT BASIC METABOLIC PANEL Routine 02/27/2025 9:02 AM EDT GLUCOSE METER POC Routine 02/27/2025 7:32 AM EDT GLUCOSE METER POC Routine 02/26/2025 9:30 PM EDT GLUCOSE METER POC Routine 02/26/2025 4:37 PM EDT PROCALCITONIN Routine 02/26/2025 4:30 PM EDT C-REACTIVE PROTEIN Routine 02/26/2025 4:30 PM EDT LACTIC ACID Routine 02/26/2025 4:30 PM EDT GLUCOSE METER POC Routine 02/26/2025 12:16 PM EDT XR CHEST AP PORTABLE STAT 02/26/2025 11:22 AM EDT BEDSIDE PICC INSERTION (PICC TEAM RN) Routine 02/26/2025 10:49 AM EDT GLUCOSE METER POC Routine 02/26/2025 8:49 AM EDT EXTRA TUBES PANEL Routine 02/26/2025 7:45 AM EDT EXTRA LAVENDER Routine 02/26/2025 7:45 AM EDT CBC WITH DIFF Add-On 02/26/2025 7:45 AM EDT C-REACTIVE PROTEIN Routine 02/26/2025 7:45 AM EDT BASIC METABOLIC PANEL Add-On 02/26/2025 7:45 AM EDT GLUCOSE METER POC Routine 02/25/2025 9:24 PM EDT GLUCOSE METER POC Routine 02/25/2025 5:45 PM EDT GLUCOSE METER POC Routine 02/25/2025 12:06 PM EDT GLUCOSE METER POC Routine 02/25/2025 11:55 AM EDT GLUCOSE METER POC Routine 02/25/2025 7:28 AM EDT HEMOGLOBIN AND HEMATOCRIT Early AM 02/25/2025 6:04 AM EDT BASIC METABOLIC PANEL Early AM 02/25/2025 6:04 AM EDT GLUCOSE METER POC Routine 02/24/2025 10:11 PM EDT GLUCOSE METER POC Routine 02/24/2025 5:27 PM EDT GLUCOSE METER POC Routine 02/24/2025 12:35 PM EDT GLUCOSE METER POC Routine 02/24/2025 8:14 AM EDT HEMOGLOBIN AND HEMATOCRIT Early AM 02/24/2025 5:13 AM EDT BASIC METABOLIC PANEL Early AM 02/24/2025 5:13 AM EDT GLUCOSE METER POC Routine 02/23/2025 9:29 PM EDT GLUCOSE METER POC Routine 02/23/2025 8:17 PM EDT GLUCOSE METER POC Routine 02/23/2025 5:00 PM EDT EXTRA TUBES PANEL Routine 02/23/2025 4:06 PM EDT EXTRA MINT GREEN LI Routine 02/23/2025 4:06 PM EDT BLOOD CULTURE (NO STAIN) Routine 02/23/2025 4:06 PM EDT SEDIMENTATION RATE AUTOMATED Routine 02/23/2025 4:06 PM EDT CBC WITH DIFF Routine 02/23/2025 4:06 PM EDT BLOOD CULTURE (NO STAIN) Routine 02/23/2025 2:55 PM EDT C-REACTIVE PROTEIN Routine 02/23/2025 2:55 PM EDT HEPATIC FUNCTION PANEL Routine 02/23/2025 2:55 PM EDT GLUCOSE METER POC Routine 02/23/2025 11:37 AM EDT VANCOMYCIN LEVEL AUC1 Timed 02/23/2025 10:46 AM EDT GLUCOSE METER POC Routine 02/23/2025 8:03 AM EDT HEMOGLOBIN AND HEMATOCRIT Early AM 02/23/2025 5:40 AM EDT BASIC METABOLIC PANEL Early AM 02/23/2025 5:40 AM EDT GLUCOSE METER POC Routine 02/22/2025 9:02 PM EDT GLUCOSE METER POC Routine 02/22/2025 5:04 PM EDT GLUCOSE METER POC Routine 02/22/2025 1:38 PM EDT IP CONSULT TO CARE COORDINATION Routine 02/22/2025 1:27 PM EDT IP CONSULT TO SOCIAL WORK Routine 02/22/2025 1:27 PM EDT HEMOGLOBIN A1C Routine 02/22/2025 12:05 PM EDT XR PELVIS STAT 02/22/2025 11:20 AM EDT GLUCOSE METER POC Routine 02/22/2025 10:48 AM EDT IP CONSULT TO INFECTIOUS DISEASES Routine 02/22/2025 10:15 AM EDT Procedure Note - Katie Viera APRN - 02/23/2025 9:59 AM EDTThis note is in progress. [facility] Infectious Diseases Consult Note Date of Admission: 02/16/2025 Date of Consultation: 02/23/2025 Consulting Physician: Katie Viera APRN Referring Physician: Sameer Ortega MD Primary Care Physician: No Pcp, Per Patient Reason for Consult: + culture HPI: Steve King is a 89 y.o. male with history of CHF, T2DM, aorticstenosis, atrial fibrillation, who was admitted on 02/15/25 for concerns ofa right hip PJI. He had a right total hip replacement initially back inSeptember 2021. He says he has had issues since then. Per care everywherechart review, he was admitted at in July 2022 for right prosthetichip infection. He had a washout and I&D and he had Staph aureus oncultures at that time. He was treated with 6 weeks of IV cefazolin andrifampin until August 2022.He says he noticed a knot on his right hip afew weeks ago. He was transferred here from [facility] to concerns of fluid collection at hip site. Right hip MRI showed alarge periarticular fluid collection closely associated with the posterioraspect of the joint capsule, extending into the trochanteric bursal regionwith extension towards the skin surface over the lateral trochantericlevel, this collection demonstrates peripheral enhancement, worrisome forabscess. Labs on arrival include mild leukocytosis, inflammatory markers wereelevated. On 02/19 he had a right hip aspiration which showed 294 RBC, 56KTNC (84% segs), fluid cultures +MSSA. He was taken to OR on 02/22 for righthip arthrotomy with extensive debridement and head and liner exchange forinfection, operative cultures are pending. ID was consulted for antibioticmanagement of right hip PJI. Patient currently on IV Vancomycin and IVZosyn. He denies fever or chills. History reviewed. No pertinent past medical history. Allergies Allergen Reactions Tetanus Vaccines And Toxoid Swelling Pt also states blisters with swelling No family history on file. Social History Socioeconomic History Marital status: Unknown Spouse name: Not on file Number of children: Not on file Years of education: Not on file Highest education level: Not on file Occupational History Not on file Tobacco Use Smoking status: Not on file Smokeless tobacco: Not on file Substance and Sexual Activity Alcohol use: Not on file Drug use: Not on file Sexual activity: Not on file Other Topics Concern Not on file Social History Narrative Not on file Social Drivers of Health Financial Resource Strain: Low Risk (02/16/2025) Overall Financial Resource Strain (CARDIA) Difficulty of Paying Living Expenses: Not very hard Food Insecurity: No Food Insecurity (02/16/2025) Hunger Vital Sign Worried About Running Out of Food in the Last Year: Never true Ran Out of Food in the Last Year: Never true Transportation Needs: No Transportation Needs (02/16/2025) [facility] IP Transportation In the past 12 months, has lack of reliable transportation kept you frommedical appointments, meetings, work or from getting things needed fordaily living?: No Physical Activity: Inactive (02/16/2025) Exercise Vital Sign Days of Exercise per Week: 0 days Minutes of Exercise per Session: 0 min Stress: No Stress Concern Present (02/16/2025) [employer] - Occupational StressQuestionnaire Feeling of Stress : Only a little Social Connections: Not At Risk (07/08/2024) Received from [facility] Family and Community Support If for any reason you need help with day-to-day activities such asbathing, preparing meals, shopping, managing finances, etc., do you getthe help you need?: I don't need any help How often do you feel lonely or isolated from those around you?: Never Intimate Partner Violence: Not At Risk (07/08/2024) Received from [facility] Abuse Screen Feels Unsafe at Home or Work/School: no Feels Threatened by Someone: no Does Anyone Try to Keep You From Having Contact with Others or DoingThings Outside Your Home?: no Physical Signs of Abuse Present: no Housing Stability: Not At Risk (07/08/2024) Received from [facility] Housing Stability Current Living Arrangements: home Potentially Unsafe Housing Conditions: none Medications Prior to Admission Medication Sig Dispense Refill Last Dose/Taking [DISCONTINUED] apixaban (ELIQUIS) 5 mg Oral Tablet Take 5 mg by mouth 2times daily. Taking atorvastatin (LIPITOR) 40 mg Oral Tablet Take 40 mg by mouth daily.Taking calcium carbonate-vitamin D3 250 mg-3.125 mcg (125 unit) Oral Tablet Take1 Tablet by mouth daily. Taking donepeziL (ARICEPT) 5 mg Oral Tablet Take 5 mg by mouth nightly. Taking DULoxetine (CYMBALTA) 60 mg Oral Capsule, Delayed Release(E.C.) Take 60mg by mouth daily. Taking fluticasone propionate (FLONASE) 50 mcg/actuation Nasl [place], Suspension2 Sprays by Nasal route 2 times daily as needed for Allergies. Taking fUROsemide (LASIX) 20 mg Oral Tablet Take 20 mg by mouth daily. Taking metFORMIN (GLUCOPHAGE) 500 mg Oral Tablet Take 500 mg by mouth 2 timesdaily. Taking polyvinyl alcohol (LIQUIFILM TEARS) 1.4 % Opht Drops Place 1 Drop intoboth eyes as needed for Dry Eyes. Taking tamsulosin (FLOMAX) 0.4 mg Oral Capsule Take 0.8 mg by mouth daily.Taking Current Facility-Administered Medications Medication Dose Route Frequency Provider Last Rate Last Admin acetaminophen (TYLENOL) tablet 650 mg 650 mg Oral Q4H PRN Berenice Dallas DO 650 mg at 02/23/25 0822 aluminum & magnesium hydroxide-simethicone 200-200-20 mg/5 mL [id number] mL 30 mL Oral Q4H PRN Mason Jacome DO apixaban (ELIQUIS) tablet 2.5 mg 2.5 mg Oral BID Mason Jacome DO2.5 mg at 02/23/25 0823 atorvastatin (LIPITOR) tablet 40 mg 40 mg Oral Daily Litzy Sepulveda APRN 40 mg at 02/23/25 0824 bacitracin-polymyxin b (POLYSPORIN) ophthalmic ointment Left Eye BIDBoyalBerenice levy DO Given at 02/23/25 0839 [START ON 02/24/2025] bisacodyL (DULCOLAX) EC tablet 10 mg 10 mg Oral BIDMason Jacome DO Or [START ON 02/24/2025] bisacodyL (DULCOLAX) suppository 10 mg 10 mg RectalBID Mason Jacome DO calcium carbonate-vitamin D 500 mg-5 mcg (200 unit) per tablet 1 Tablet1 Tablet Oral Daily Litzy Sepulveda APRN 1 Tablet at 02/23/25 0824 dextrose 50 % solution 25 mL 25 mL Intravenous PRN Berenice Dallas DO docusate sodium (COLACE) capsule 100 mg 100 mg Oral BID Mason Jacome DO 100 mg at 02/23/25 0824 donepeziL (ARICEPT) tablet 5 mg 5 mg Oral Nightly Litzy Sepulveda APRN5 mg at 02/22/252142 DULoxetine (CYMBALTA) capsule 60 mg 60 mg Oral Daily Litzy Sepulveda APRN 60 mg at 02/23/25 0824 fluticasone propionate (FLONASE) 50 mcg/actuation nasal spray 2 [place] 2Spray Nasal BID PRN Litzy Sepulveda APRN fUROsemide (LASix) tablet 20 mg 20 mg Oral Daily Litzy Sepulveda APRN20 mg at 02/23/25 0824 glucagon (GLUCAGEN) injection 1 mg 1 mg Intramuscular PRN Berenice Dallas DO And sterile water injection 1 mL 1 mL Injection PRN Leonard Dallas DO insulin aspart U-100 (NovoLOG) injection 1-15 Units 1-15 UnitsSubcutaneous QID Berenice Dallas DO 9 Units at 822 insulin glargine U-100 (LANTUS) injection 10 Units 10 Units SubcutaneousQPM (Insulin) Berenice Dallas DO 10 Units at 02/22/252146 magnesium hydroxide (MILK OF MAGNESIA) 400 mg/5 mL suspension 30 mL 30mL Oral Daily Mason Jacome DO mupirocin (BACTROBAN) 2 % ointment Nasal 2 times per day Mason Jacome DO Given at 02/23/25 0822 oxyCODONE (ROXICODONE) immediate release tablet 5-10 mg 5-10 mg Oral Q3HPRN Mason Jacome DO 10 mg at 02/23/25 0556 piperacillin-tazobactam in dextrose (ZOSYN) IVPB 3.375 g 3.375 gIntravenous 3 times per day Berenice Dallas DO Stopped at02/23/25 0357 polyethylene glycol (GLYCOLAX, MIRALAX) packet 17 g 17 g Oral DailySameer Ortega MD 17 g at 02/21/25 0909 polyvinyl alcohol (LIQUIFILM TEARS) 1.4 % ophthalmic solution 1 Drop 1Drop Both Eyes PRN Litzy Sepulveda APRN 1 Drop at 02/22/25 2145 senna (SENOKOT) tablet 17.2 mg 17.2 mg Oral BID Sameer Ortega MD 17.2mg at 02/23/25 0823 senna (SENOKOT) tablet 2 Tablet 2 Tablet Oral Nightly Mason Jacome DO 2 Tablet at 02/22/25 2142 sodium chloride 0.9% IV line flush 20-50 mL 20-50 mL Intravenous PRNBSameer gale MD 150 mL/hr at 02/23/25 0838 50 mL at 02/23/25 0838 tamsulosin (FLOMAX) capsule 0.8 mg 0.8 mg Oral Daily Litzy Sepulveda APRN 0.8 mg at 02/23/25 0823 vancomycin in sodium chloride 0.9% premix IVPB 1,750 mg 1,750 mgIntravenous Q18H Berenice Dallas DO 125 mL/hr at 02/23/25 60238,750 mg at 02/23/25 0839 Review of Systems: Constitutional: negative for fever, chills and night sweats, feels ill,fatigued, generally weak, +hard of hearing [employer] WORK[employer]: Negative for headache, focal weakness, speech problems, loss ofconsciousness, confusion, memory loss ENT: no rhinorrhea Eyes: No drainage Resp: negative for cough, shortness of breath CVS: negative for palpitations, chest pain GI: negative for abdominal pain, nausea, vomiting, diarrhea Urinary: no dysuria, trouble voiding MSK: +R hip pain Skin: negative for bruising, jaundice, lacerations Patient Vitals for the past 24 hrs: BP Temp Temp src Pulse Resp SpO2 02/23/25 0805 102/68 97.9 F (36.6 C) Oral 66 16 94 % 02/23/25 0553 102/64 -- -- 74 16 94 % 02/23/25 0048 92/70 98.1 F (36.7 C) Oral 88 16 94 % 02/22/25 2133 112/74 98.2 F (36.8 C) Oral 72 16 95 % 02/22/25 1647 109/71 -- -- 61 16 92 % 02/22/25 1628 103/66 97.1 F (36.2 C) Forehead 62 14 91 % 02/22/25 1419 106/65 95.3 F (35.2 C) Forehead 66 12 98 % 02/22/25 1353 104/63 95.8 F (35.4 C) Forehead 65 10 98 % 02/22/25 1333 -- 96.2 F (35.7 C) Forehead 62 10 98 % 02/22/25 1328 102/68 94.5 F (34.7 C) Axillary 60 12 97 % 02/22/25 1245 115/68 96.6 F (35.9 C) Forehead 63 11 98 % 02/22/25 1230 112/69 -- -- 64 12 97 % 02/22/25 1215 105/68 -- -- 62 13 98 % 02/22/25 1200 116/64 97.2 F (36.2 C) Forehead 66 16 99 % 02/22/25 1145 104/74 -- -- 66 8 98 % 02/22/25 1130 116/68 -- -- 65 10 96 % 02/22/25 1123 -- -- -- 62 9 93 % 02/22/25 1121 -- -- -- 63 21 (!) 89 % 02/22/25 1118 -- -- -- 66 21 90 % 02/22/25 1115 107/77 -- -- 73 21 (!) 87 % 02/22/25 1110 -- -- -- 67 15 90 % 02/22/25 1100 111/79 96.8 F (36 C) Forehead 68 14 95 % 02/22/25 1055 104/87 -- -- 66 19 98 % 02/22/25 1045 91/71 96.8 F (36 C) Forehead 74 17 99 % Weight: 251 lb 12.3 oz (114.2 kg) Immunization History Administered Date(s) Administered Influenza Vaccine Trivalent Adjuvanted PF 08/06/2020 Moderna SARS-CoV-2 Vaccine 12+ Yrs (Light blue border) 11/18/2020,06/09/2021 Moderna SARS-CoV-2 Vaccine 12+ Yrs Spikevax 08/24/2023 Quadrivalent Influenza High Dose 06/24/2021 Physical Exam: General Appearance: Alert, cooperative, no distress Head: Normocephalic, without obvious abnormality, atraumatic Eyes: PERRL, conjunctiva/corneas clear Nose: Nares normal, septum midline, mucosa normal, no drainage Mouth: mucosa moist Lungs: Good AE B/L, respirations unlabored Heart: Regular rate and rhythm, S1 and S2 normal Abdomen: Soft, non-tender, bowel sounds active Extremities: surgical incision to right hip with Prevena vac in place, noedema Skin: no rashes or lesions Neurologic: Grossly normal Line: +PIV Active LDAs PIV Line Duration Peripheral IV 02/20/25 1130 Left Forearm Ultrasound guided 3 days Peripheral IV 02/22/25 0818 Right Hand 1 day Wound Duration Incision/Wound Closed Surgical Thigh Proximal;Right 1 day Labs: Lab Results Component Value Date WBC 5.6 02/21/2025 HGB 10.0 (L) 02/23/2025 HCT 31.0 (L) 02/23/2025 MCV 94.7 02/21/2025 PLT 209 02/21/2025 Lab Results Component Value Date GLU 281 (H) 02/23/2025 NA 133 (L) 02/23/2025 K 4.8 02/23/2025 CO2 24 02/23/2025 CL 99 02/23/2025 BUN 20 02/23/2025 CREATININE 0.86 02/23/2025 Results for orders placed or performed during the hospital encounter of02/16/25 (from the past 2 weeks) WOUND CULTURE (STAIN INCLUDED) Collection Time: 02/19/25 12:43 PM Specimen: Hip, Right; Aspirate Result Value Ref Range Culture Positive Growth (A) Culture Moderate growth of Staphylococcus aureus PBP2a test Negative Stain Moderate WBCs Stain No organisms seen Susceptibility Staphylococcus aureus - SUSCEPTIBILITY RESULT* Ampicillin Cefazolin Ceftaroline Ceftriaxone Chloramphenicol <=8 Susceptible ug/mL Ciprofloxacin >2 Resistant ug/mL Clindamycin <=0.25 Susceptible ug/mL Daptomycin Erythromycin <=0.25 Susceptible ug/mL Gentamicin 4 Susceptible ug/mL Gentamicin synergy Levofloxacin >4 Resistant ug/mL Linezolid Moxifloxacin 2 Resistant ug/mL Nitrofurantoin Oxacillin <=0.25 Susceptible ug/mL Penicillin Rifampin <=1 Susceptible ug/mL Streptomycin synergy Synercid Tetracycline <=2 Susceptible ug/mL Tigecycline Trimethoprim/Sulfamethoxazole <=0.5/9.5 Susceptible ug/mL Vancomycin 1 Susceptible ug/mL * Rifampin and Gentamicin should not be used alone for antimicrobialtherapy. For methicillin resistant staphylococci, ciprofloxacin shouldalso not be used alone. ANAEROBIC CULTURE (NO STAIN) Collection Time: 02/19/25 12:43 PM Specimen: Hip, Right; Aspirate Result Value Ref Range Culture No anaerobic growth to date. FUNGUS STAIN (STAIN ONLY) Collection Time: 02/19/25 12:43 PM Specimen: Hip, Right; Aspirate Result Value Ref Range Fungal Stain No yeast or fungal elements seen. No yeast or fungalelements seen. ACID FAST BACILLI CULTURE AND SMEAR (STAIN INCLUDED) Collection Time: 02/19/25 12:43 PM Specimen: Hip, Right; Aspirate Result Value Ref Range AFB Stain SEE NOTE AFB Culture SEE NOTE WOUND CULTURE (STAIN INCLUDED) Collection Time: 02/22/25 9:03 AM Specimen: Hip, Right; Tissue Result Value Ref Range Stain Moderate RBCs Stain Rare WBCs Stain No organisms seen WOUND CULTURE (STAIN INCLUDED) Collection Time: 02/22/25 9:05 AM Specimen: Hip, Right; Tissue Result Value Ref Range Stain Few RBCs Stain No WBCs seen Stain No organisms seen WOUND CULTURE (STAIN INCLUDED) Collection Time: 02/22/25 9:05 AM Specimen: Hip, Right; Tissue Result Value Ref Range Stain Few RBCs Stain No WBCs seen Stain No organisms seen Lab Results Component Value Date SEDRATE 67 (H) 02/16/2025 Lab Results Component Value Date CRP 30.18 (H) 02/16/2025 Assessment: Right hip prosthetic joint infection. [facility] C/b Staph aureus infection and was treated with 6 weeks of IVcefazolin and rifampin until August 2022. 02/18 Right hip MRI showed a large periarticular fluid collection closelyassociated with the posterior aspect of the joint capsule, extending intothe trochanteric bursal region with extension towards the skin surfaceover the lateral trochanteric level, this collection demonstratesperipheral enhancement, worrisome for abscess. 02/19/25 S/p right hip aspiration. Cell count showing 294 RBC, 56K TNC (84%segs). Cultures +growth of MSSA AFB Cx pending Synovasure pending 02/22 S/p OR for right hip arthrotomy with extensive debridement and headand liner exchange for infection Operative cultures are pending Hx of MRSA infection in back? - per patient report PAF On Eliquis T2DM NIGHAT Heart failure Plan: Stop IV Vancomycin and IV Zosyn. Start IV Cefazolin. Would avoid Rifmapinat this time due to drug-drug interactions. Follow 02/19 and 02/22 aspiration and operative cultures Obtain routine blood cultures, trend ESR/CRP Do not insert permanent lines until surveillance blood cx negative [id number] hours. Monitor fever/BP curve, I/O's, serum electrolytes, WBC & platelet trend,Liver and renal function Thanks for consulting. Discussed with patient. ID will continue to follow Case reviewed, patient seen with Dr. Michael Viera, LEESA FUNGUS CULTURE (NO STAIN) Routine 02/22/2025 9:05 AM EDT Right hip joint effusion FUNGUS CULTURE (NO STAIN) Routine 02/22/2025 9:05 AM EDT Right hip joint effusion WOUND CULTURE (STAIN INCLUDED) Routine 02/22/2025 9:05 AM EDT Right hip joint effusion WOUND CULTURE (STAIN INCLUDED) Routine 02/22/2025 9:05 AM EDT Right hip joint effusion ANAEROBIC CULTURE (NO STAIN) Routine 02/22/2025 9:05 AM EDT Right hip joint effusion ANAEROBIC CULTURE (NO STAIN) Routine 02/22/2025 9:05 AM EDT Right hip joint effusion FUNGUS CULTURE (NO STAIN) Routine 02/22/2025 9:03 AM EDT Right hip joint effusion WOUND CULTURE (STAIN INCLUDED) Routine 02/22/2025 9:03 AM EDT Right hip joint effusion ANAEROBIC CULTURE (NO STAIN) Routine 02/22/2025 9:03 AM EDT Right hip joint effusion WI I&D PELVIS/HIP JT AREA DEEP ABSCESS/HEMATOMA 02/22/2025 8:23 AM EDT Right hip joint effusion Special Needs posterior, regular table, lat, anterior specials tray, long femoral elevator retractor, osteotomes to remove old poly, 9 liters NACL, antiseptic irrigation (bactisure or similar) GLUCOSE METER POC Routine 02/22/2025 7:58 AM EDT EK EKG 12 LEAD STAT 02/22/2025 7:55 AM EDT BB HISTORY CHECK Timed 02/22/2025 6:19 AM EDT EXTRA TUBES PANEL Routine 02/22/2025 6:19 AM EDT EXTRA MINT GREEN LI Routine 02/22/2025 6:19 AM EDT EXTRA LAVENDER Routine 02/22/2025 6:19 AM EDT ABORH Timed 02/22/2025 6:19 AM EDT ANTIBODY SCREEN IGG Timed 02/22/2025 6:19 AM EDT TYPE AND SCREEN Timed 02/22/2025 6:19 AM EDT VANCOMYCIN LEVEL AUC2 Timed 02/21/2025 12:12 PM EDT VANCOMYCIN LEVEL AUC1 Timed 02/21/2025 6:02 AM EDT CBC Early AM 02/21/2025 6:02 AM EDT BASIC METABOLIC PANEL Early AM 02/21/2025 6:02 AM EDT GLUCOSE METER POC Routine 02/20/2025 12:14 PM EDT ADMIT Routine 02/20/2025 11:03 AM EDT CBC Early AM 02/20/2025 6:24 AM EDT BASIC METABOLIC PANEL Early AM 02/20/2025 6:24 AM EDT US GUIDED NEEDLE PLACEMENT-FNA LM 02/19/2025 1:21 PM EDT PJI DETECTION (SYNOVASURE)-REF LAB Routine 02/19/2025 12:43 PM EDT FUNGUS STAIN (STAIN ONLY) Routine 02/19/2025 12:43 PM EDT JOINT FLUID DIFFERENTIAL Routine 02/19/2025 12:43 PM EDT PROTEIN JOINT FLUID Routine 02/19/2025 12:43 PM EDT GLUCOSE JOINT FLUID Routine 02/19/2025 12:43 PM EDT GLUCOSE JOINT FLUID Routine 02/19/2025 12:43 PM EDT ACID FAST BACILLI CULTURE AND SMEAR (STAIN INCLUDED) Routine 02/19/2025 12:43 PM EDT Benign prostatic hyperplasia, unspecified whether lower urinary tract symptoms present Paroxysmal A-fib (HCC) 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) Dysphagia, unspecified type Rash Hyperkalemia Environmental allergies Type 2 diabetes mellitus with diabetic polyneuropathy, without long-term current use of insulin (HCC) Mood disorder Major neurocognitive disorder (HCC) Dyslipidemia NIGHAT (obstructive sleep apnea) Right hip pain WOUND CULTURE (STAIN INCLUDED) Routine 02/19/2025 12:43 PM EDT ANAEROBIC CULTURE (NO STAIN) Routine 02/19/2025 12:43 PM EDT JOINT FLUID CRYSTALS Routine 02/19/2025 12:43 PM EDT JOINT FLUID CELL COUNT Routine 02/19/2025 12:43 PM EDT IP CONSULT TO PHARMACY Routine 02/19/2025 9:32 AM EDT PT / INR STAT 02/19/2025 9:01 AM EDT CBC Early AM 02/19/2025 7:01 AM EDT BASIC METABOLIC PANEL Early AM 02/19/2025 7:01 AM EDT MRI HIP RIGHT W WO CONTRAST LM 02/18/2025 6:37 PM EDT XR EYE BILATERAL FOREIGN BODY LM 02/18/2025 5:50 PM EDT IP CONSULT TO INTERVENTIONAL RADIOLOGY Routine 02/18/2025 3:08 PM EDT Procedure Note - Merry Fuentes PA - 02/18/2025 3:21 PM EDTThis note is in progress. Images from the original note were not included. INTERVENTIONAL RADIOLOGY CONSULT - Right Hip Aspiration Date: 02/18/2025 Time: 3:37 PM Name:Steve King :1935 Age:89 y.o. M/F: male Attending Provider: Berenice Dallas * Primary Care Physician: No Pcp, Per Patient HPI: 89 y.o. year old male with PMHx significant for DM2, Afib,Dyslipidemia, and s/p Total Right Hip replacement in 2021. Per chart -patient with chronic issues following replacement including knot overlying incision site that became painful in last 6-8mos. Patient notedto have fallen on sunday after right hip gave out. Patient noted to havelarge fluctuant, tender nodule over lateral hip under old incision andoverlying erythematous rash. Ortho recommending R. hip aspiration perchart. Imaging including XR right hip performed. IR consulted for possibleright hip aspiration. PMH: No past medical history on file. PSxHx: No past surgical history on file. Allergies: Allergies as of 02/15/2025 (Not on File) Meds: Current Facility-Administered Medications: acetaminophen (TYLENOL) tablet 650 mg, 650 mg, Oral, Q4H PRN,Berenice Dallas S, DO, 650 mg at 02/18/25 1312 atorvastatin (LIPITOR) tablet 40 mg, 40 mg, Oral, Daily, Derick, Litzy,EVS MANAGER, 40 mg at 02/18/25 08 calcium carbonate-vitamin D 500 mg-5 mcg (200 unit) per tablet 1 Tablet,1 Tablet, Oral, Daily WM, Derick, Litzy, EVS MANAGER, 1 Tablet at 803 donepeziL (ARICEPT) tablet 5 mg, 5 mg, Oral, Nightly, Derick, Litzy,EVS MANAGER, 5 mg at 02/17/252022 DULoxetine (CYMBALTA) capsule 60 mg, 60 mg, Oral, Daily, Sepulveda, Litzy,EVS MANAGER, 60 mg at 02/18/25 08 fluticasone propionate (FLONASE) 50 mcg/actuation nasal spray 2 [place], 2Spray, Nasal, BID PRN, Ana Sepulvedaodie, EVS MANAGER fUROsemide (LASix) tablet 20 mg, 20 mg, Oral, Daily, Sepulveda, Litzy,EVS MANAGER, 20 mg at 02/18/25 08 melatonin tablet 5 mg, 5 mg, Oral, Nightly PRN, Derick, Litzy, EVS MANAGER, 5mg at 02/17/252023 oxyCODONE (ROXICODONE) immediate release tablet 5 mg, 5 mg, Oral, Q4HPRN, Berenice Dallas S, DO polyethylene glycol (GLYCOLAX, MIRALAX) packet 17 g, 17 g, Oral, Daily,Sameer Ortega MD, 17 g at 02/18/25 08 polyvinyl alcohol (LIQUIFILM TEARS) 1.4 % ophthalmic solution 1 Drop, 1Drop, Both Eyes, PRN, Litzy Sepulveda APRN senna (SENOKOT) tablet 17.2 mg, 17.2 mg, Oral, BID, Sameer Ortega MD,17.2 mg at 02/18/25 08 tamsulosin (FLOMAX) capsule 0.8 mg, 0.8 mg, Oral, Daily, Litzy Sepulveda APRN, 0.8 mg at 02/18/25 08 Vitals: 02/18/25 0800 BP: 100/66 Pulse: 93 Resp: 17 Temp: 97.6 F (36.4 C) SpO2: 97% Labs: Lab Results Component Value Date CREATININE 1.08 02/16/2025 BUN 52 (H) 02/16/2025 NA 133 (L) 02/16/2025 K 5.1 (H) 02/16/2025 CL 96 (L) 02/16/2025 CO2 22 02/16/2025 Lab Results Component Value Date WBC 7.5 02/16/2025 HGB 12.7 (L) 02/16/2025 HCT 39.4 (L) 02/16/2025 MCV 97.5 02/16/2025 PLT 261 02/16/2025 Imaging: XR HIP RIGHT AP LATERAL W AP PELVIS, 02/16/2025 2:13 PM FINDINGS: Patient status post a total right hip replacement. Prosthetic componentintact. Mild degenerative changes left hip. No definite pelvic fracturesidentified. Joint spaces overall well-maintained for age. No periostitis. IMPRESSION: No acute abnormality of the hip or pelvis. Assessment/Plan: Active Hospital Problems Diagnosis *Right hip pain NIGHAT (obstructive sleep apnea) Dyslipidemia Major neurocognitive disorder ([facility]) Mood disorder Type 2 diabetes mellitus with diabetic polyneuropathy, without long-termcurrent use of insulin ([facility]) Environmental allergies Hyperkalemia Rash Dysphagia 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) ([facility]) Paroxysmal A-fib ([facility]) BPH (benign prostatic hyperplasia) 1) Right hip pain - WBC 7.5, afebrile, VSS - XR right hip performed without evidence of fluid. No further advancedimaging available. - Per chart, fluid collection is palpable on exam and superficial innature with overlying erythematous rash. - Reviewed with Dr. Carcamo. IR recommending US of right hip to furtherevaluate and if collection is confirmed to be superficial, could considerfor US Guided Aspiration of fluid collection. Would not recommend righthip aspiration until fluid collection further evaluated, due to potentialfor introducing infection into joint space - Above recommendation relayed to Hospitalist via secure chat Please contact IR with questions or concerns. Signature: Merry Fuentes PA-C 02/18/25 3:37 PM ADMIT Routine 02/17/2025 12:16 PM EDT ADMIT Routine 02/17/2025 12:07 PM EDT XR FEMUR RIGHT AP AND LATERAL STAT 02/16/2025 2:13 PM EDT XR HIP RIGHT AP LATERAL W AP PELVIS STAT 02/16/2025 2:13 PM EDT CHROMIUM - REF LAB Routine 02/16/2025 10:49 AM EDT COBALT - REF LAB Routine 02/16/2025 10:49 AM EDT SEDIMENTATION RATE AUTOMATED Routine 02/16/2025 10:49 AM EDT C-REACTIVE PROTEIN Routine 02/16/2025 10:49 AM EDT THYROID STIMULATING HORMONE Routine 02/16/2025 10:49 AM EDT ECG AND WAVEFORMS - TELEMETRY Routine 02/16/2025 7:55 AM EDT CBC Routine 02/16/2025 3:58 AM EDT BASIC METABOLIC PANEL Routine 02/16/2025 3:58 AM EDT IP CONSULT TO ORTHOPEDIC SURGERY Routine 02/16/2025 2:13 AM EDT Procedure Note - Mason Jacome DO - 02/20/2025 6:59 AM EDTThis note is in progress. Images from the original note were not included. Consult Note Name: Steve King PCP: No Pcp, Per Patient Chief Complaint: R hip pain s/p MEKA (Hiro May 2022) HPI: 89 y.o. male who presents on trasnfer from [facility]. [place]. His index MEKA was years ago by Dr. Bosch. He has never liked hiship. He only had 1 procedure on his him. He has noted swelling and pain onand off for over a year. He notes there is some redness over theincisional area. He has never had any drainage. he denies fevers orchills. He usually takes Eliquis. He has been on broad spectrum abx sincebeing inpatient.. Since being in hospital he has been on antibiotics. No past medical history on file. No past surgical history on file. family history is not on file. Prior to Admission medications Medication Sig Start Date End Date Last Dose Authorizing Provider apixaban (ELIQUIS) 5 mg Oral Tablet Take 5 mg by mouth 2 times daily.Taking Provider, Historical atorvastatin (LIPITOR) 40 mg Oral Tablet Take 40 mg by mouth daily.Taking Provider, Historical calcium carbonate-vitamin D3 250 mg-3.125 mcg (125 unit) Oral Tablet Take1 Tablet by mouth daily. Taking Provider, Historical donepeziL (ARICEPT) 5 mg Oral Tablet Take 5 mg by mouth nightly. TakingProvider, Historical DULoxetine (CYMBALTA) 60 mg Oral Capsule, Delayed Release(E.C.) Take 60 mgby mouth daily. Taking Provider, Historical fluticasone propionate (FLONASE) 50 mcg/actuation Nasl [place], Suspension 2Sprays by Nasal route 2 times daily as needed for Allergies. TakingProvider, Historical fUROsemide (LASIX) 20 mg Oral Tablet Take 20 mg by mouth daily. TakingProvider, Historical metFORMIN (GLUCOPHAGE) 500 mg Oral Tablet Take 500 mg by mouth 2 timesdaily. Taking Provider, Historical polyvinyl alcohol (LIQUIFILM TEARS) 1.4 % Opht Drops Place 1 Drop intoboth eyes as needed for Dry Eyes. Taking Provider, Historical tamsulosin (FLOMAX) 0.4 mg Oral Capsule Take 0.8 mg by mouth daily.Taking Provider, Historical Allergies Allergen Reactions Tetanus Vaccines And Toxoid Swelling Pt also states blisters with swelling ROS Physical Examination: BP 92/66 (BP Location: Right arm, Patient Position: Sitting) Pulse 104 Temp 97.4 F (36.3 C) (Oral) Resp 20 Ht 6' 4 (1.93 m) Wt 251lb 12.3 oz (114.2 kg) SpO2 98% BMI 30.65 kg/m Physical Exam Posterolateral incision with sinus tract or dehiscence/ drainage some erythema over the incision decent hip flexion strength. Able to SLR NVI in R foot with palpable pulses Imaging: X ray images of the R hip were reviewed and interpreted by me today andare significant for: XR HIP RIGHT AP LATERAL W AP PELVIS, 02/16/2025 2:13 PM CLINICAL HISTORY: -hip pain s/p MEKA COMPARISON: None. PROCEDURE COMMENTS: AP view of the pelvis with AP and frog-leg views ofthe hip. FINDINGS: Patient status post a total right hip replacement. Prosthetic componentintact. Mild degenerative changes left hip. No definite pelvic fracturesidentified. Joint spaces overall well-maintained for age. No periostitis. IMPRESSION: No acute abnormality of the hip or pelvis. MRI R hip: IMPRESSION: 1. 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 There is alarge periarticular fluid collection closely associated with the posterioraspect of the joint capsule, extending into the trochanteric bursal region withextension towards the skin surface over the lateral trochanteric level. Thiscollection demonstrates peripheral enhancement, worrisome for abscess. 2. No MRI evidence of periprosthetic osteolysis, marrow edema, orfracture. Labs: elevated inflammatory markers elevated synovial WBC and PMN % MDM: Imaging reviewed Labs reviewed - esr 67 - crp 30 -metal ions WNL -hip aspiration - cx ngtd, cc 57k, 84% segs, synovasure pending, MSIS > 6likely infected Nonsurgical vs surgical discussion Assessment: 89 year old male s/p R MEKA May 2022 Plan: Cultures likely influenced by Abx -may be false negative cell count pmn % concerning, labs elevated, MRI shows fluid collection injoint. Will wait for a-defensin and final cultures. He will likely need surgical intervention (washout) next week, pendingfinal fluid analysis results. Need implant records / record request from OSH Given his age, low demand, I am concerned he would not tolerate a 2 stageprocedure, or explant well. Plan would be likely extensive debridement with modular componentexchange. OK for DVT prophylaxis today 02/20 - may consider OR Sunday AM for R hip I&Dwith head liner exchange. WBAT RLE with walker ADMIT Routine 02/16/2025 2:12 AM EDT ECG AND WAVEFORMS - TELEMETRY Routine 02/16/2025 1:00 AM EDT documented in this encounter Results * (ABNORMAL) GLUCOSE METER POC (03/08/2025 8:46 AM EDT) [facility] Glucose Meter POC 163(H) 70 - 100 mg/dL 03/08/2025 8:48 AM EDT [facility] Sample Type Capillary 03/08/2025 8:48 AM EDT [facility] Patient Status Non-Critical Patient 03/08/2025 8:48 AM EDT [facility] Blood BLOOD SPECIMEN / Unknown 03/08/2025 8:46 AM EDT 03/08/2025 8:48 AM EDT us Stephen Covarrubias MD POINT OF CARE TEST ORDERABLE S Final Result Performing Organization Address City/[facility]/ZIP Co de Phone Number [facility] [address] [phone] * ECG AND WAVEFORMS - TELEMETRY (03/08/2025 7:39 AM EDT) [facility] ECG INTERPRET Sinus Rhythm w/ First Degree AVB [facility] 03/08/2025 7:39 AM EDT Narrative [facility] - 03/08/2025 7:42 AM EDT 1ST DEGREE HB//ROUTINE//AC WI 0.25 QRS 0.13 RR 0.74 QT 0.48 QTc 0.56 See Clinical Report link for waveform capture us Unknown Provider POINT OF CARE CARDIOLOGY Final Result Performing Organization Address City/[facility]/ZIP Co de Phone Number [facility] [address] [place] [address] * (ABNORMAL) CBC (03/08/2025 6:54 AM EDT) WBC 7.0 3.7 - 10.3 x10(3)/mcL 03/08/2025 7:02 AM EDT [facility] RBC 2.95(L) 4.60 - 6.10 x10(6)/mcL 03/08/2025 7:02 AM EDT [facility] Hgb 9.1(L) 13.7 - 17.5 g/dL 03/08/2025 7:02 AM EDT [facility] Hct 28.9(L) 40.0 - 51.0 % 03/08/2025 7:02 AM EDT [facility] MCV 98.0 80.0 - 100.0 fL 03/08/2025 7:02 AM EDT [facility] MCH 30.8 26.0 - 34.0 pg 03/08/2025 7:02 AM EDT [facility] MCHC 31.5 30.7 - 35.5 g/dL 03/08/2025 7:02 AM EDT [facility] RDW 14.7 <=14.9 % 03/08/2025 7:02 AM EDT [facility] Platelet 365 155 - 369 x10(3)/mcL 03/08/2025 7:02 AM EDT [facility] MPV 8.8 8.8 - 12.5 fL 03/08/2025 7:02 AM EDT [facility] Blood VENOUS STRUCTURE / Unknown Collection / Unknown 03/08/2025 6:54 AM EDT 03/08/2025 7:00 AM EDT us Ozzie Fernandez MD HEMATOLOGY ORDERABLES Final Resu lt [facility] [address] [place] [address] * (ABNORMAL) GLUCOSE METER POC (03/07/2025 8:18 PM EDT) Glucose Meter POC 212(H) 70 - 100 mg/dL 03/07/2025 8:20 PM EDT [facility] Sample Type Capillary 03/07/2025 8:20 PM EDT [facility] Patient Status Non-Critical Patient 03/07/2025 8:20 PM EDT [facility] Blood BLOOD SPECIMEN / Unknown 03/07/2025 8:18 PM EDT 03/07/2025 8:20 PM EDT us Stephen Covarrubias MD POINT OF CARE TEST ORDERABLE S Final Result Performing Organization Address City/[facility]/ZIP Co de Phone Number [facility] [address] [place] [address] * ECG AND WAVEFORMS - TELEMETRY (03/07/2025 7:00 PM EDT) ECG INTERPRET NSR [facility] 03/07/2025 7:00 PM EDT Narrative [facility] - 03/07/2025 9:09 PM EDT Routine 1900/1st AVB/IVCD/qj WI 0.26 QRS 0.12 RR 0.76 QT 0.41 QTc 0.47 See Clinical Report link for waveform capture us Unknown Provider POINT OF CARE CARDIOLOGY Final Result Performing Organization Address [facility] Co de Phone Number [facility] [address] [place] [phone] * (ABNORMAL) GLUCOSE METER POC (03/07/2025 5:41 PM EDT) Glucose Meter POC 169(H) 70 - 100 mg/dL 03/07/2025 5:43 PM EDT [facility] Sample Type Capillary 03/07/2025 5:43 PM EDT [facility] Patient Status Non-Critical Patient 03/07/2025 5:43 PM EDT [facility] Blood BLOOD SPECIMEN / Unknown 03/07/2025 5:41 PM EDT 03/07/2025 5:43 PM EDT us Stephen Covarrubias MD POINT OF CARE TEST ORDERABLE S Final Result Performing Organization Address City/[facility]/ZIP Co de Phone Number [facility] [address] [place] [address] * (ABNORMAL) GLUCOSE METER POC (03/07/2025 11:23 AM EDT) Glucose Meter POC 146(H) 70 - 100 mg/dL 03/07/2025 11:25 AM EDT [facility] Sample Type Capillary 03/07/2025 11:25 AM EDT [facility] Patient Status Non-Critical Patient 03/07/2025 11:25 AM EDT [facility] Blood BLOOD SPECIMEN / Unknown 03/07/2025 11:23 AM EDT 03/07/2025 11:25 AM EDT Stephen Covarrubias MD POINT OF CARE TEST ORDERABLE S Final Result Performing Organization Address [facility] de Phone Number [facility] [address] [place] [address] * (ABNORMAL) GLUCOSE METER POC (03/07/2025 8:15 AM EDT) Glucose Meter POC 127(H) 70 - 100 mg/dL 03/07/2025 8:16 AM EDT [facility] Sample Type Capillary 03/07/2025 8:16 AM EDT [facility] Patient Status Non-Critical Patient 03/07/2025 8:16 AM EDT [facility] Blood BLOOD SPECIMEN / Unknown 03/07/2025 8:15 AM EDT 03/07/2025 8:16 AM EDT us Stephen Covarrubias MD POINT OF CARE TEST ORDERABLE S Final Result Performing Organization Address [facility] Co de Phone Number [facility] [address] [place] [address] * ECG AND WAVEFORMS - TELEMETRY (03/07/2025 7:18 AM EDT) ECG INTERPRET First Degree Sinus Rhythm [facility] Comment:First degree AV w/ P VCs 03/07/2025 7:18 AM EDT Narrative [facility] - 03/07/2025 7:22 AM EDT 1ST DEGREE AV//PVC//ROUTINE//AC WI 0.28 QRS 0.15 RR 0.79 QT 0.45 QTc 0.50 See Clinical Report link for waveform capture us Unknown Provider POINT OF CARE CARDIOLOGY Final Result Performing Organization Address City/[facility]/ZIP Co de Phone Number [facility] [address] [place] [address] * (ABNORMAL) GLUCOSE METER POC (03/06/2025 8:48 PM EDT) Glucose Meter POC 216(H) 70 - 100 mg/dL 03/06/2025 8:49 PM EDT [facility] Sample Type Capillary 03/06/2025 8:49 PM EDT [facility] Patient Status Non-Critical Patient 03/06/2025 8:49 PM EDT [facility] Blood BLOOD SPECIMEN / Unknown 03/06/2025 8:48 PM EDT 03/06/2025 8:49 PM EDT us Stephen Covarrubias MD POINT OF CARE TEST ORDERABLE S Final Result Performing Organization Address City/[facility] Co de Phone Number [facility] [address] [place] [address] * ECG AND WAVEFORMS - TELEMETRY (03/06/2025 8:11 PM EDT) ECG INTERPRET NSR [facility] 03/06/2025 8:11 PM EDT Narrative [facility] - 03/06/2025 8:20 PM EDT HC/ROUTINE/FIRST DEGREE/IVCD WI 0.28 QRS 0.13 QT 0.41 See Clinical Report link for waveform capture us Unknown Provider POINT OF CARE CARDIOLOGY Final Result Performing Organization Address City/[facility]/ZIP Co de Phone Number [facility] [address] [place] [address] * (ABNORMAL) GLUCOSE METER POC (03/06/2025 4:26 PM EDT) Glucose Meter POC 171(H) 70 - 100 mg/dL 03/06/2025 4:27 PM EDT [facility] Sample Type Capillary 03/06/2025 4:27 PM EDT [facility] Patient Status Non-Critical Patient 03/06/2025 4:27 PM EDT [facility] Blood BLOOD SPECIMEN / Unknown 03/06/2025 4:26 PM EDT 03/06/2025 4:27 PM EDT Stephen Covarrubias MD POINT OF CARE TEST ORDERABLE S Final Result Performing Organization Address [facility] Co de Phone Number [facility] [address] [place], [place] [phone] * (ABNORMAL) GLUCOSE METER POC (03/06/2025 11:37 AM EDT) Glucose Meter POC 177(H) 70 - 100 mg/dL 03/06/2025 11:38 AM EDT [facility] Sample Type Venous 03/06/2025 11:38 AM EDT [facility] Patient Status Non-Critica l Patient 03/06/2025 11:38 AM EDT [facility] Blood BLOOD SPECIMEN / Unknown 03/06/2025 11:37 AM EDT 03/06/2025 11:38 AM EDT Stephen Covarrubias MD POINT OF CARE TEST ORDERABLE S Final Result Performing Organization Address City/[facility]/ZIP Co de Phone Number [facility] [address] [place] [address] * GLUCOSE METER POC (03/06/2025 7:30 AM EDT) Glucose Meter POC 96 70 - 100 mg/dL 03/06/2025 7:32 AM EDT [facility] Sample Type Capillary 03/06/2025 7:32 AM EDT [facility] Patient Status Non-Critical Patient 03/06/2025 7:32 AM EDT [facility] Blood BLOOD SPECIMEN / Unknown 03/06/2025 7:30 AM EDT 03/06/2025 7:32 AM EDT Stephen Covarrubias MD POINT OF CARE TEST ORDERABLE S Final Result Performing Organization Address [facility]/ZIP Co de Phone Number [facility] [address] [place] [address] * ECG AND WAVEFORMS - TELEMETRY (03/06/2025 7:28 AM EDT) Pathologist [facility] ECG INTERPRET NSR [facility] 03/06/2025 7:28 AM EDT Narrative [facility] - 03/06/2025 7:35 AM EDT 1ST DEGREE AV//ROUTINE//AC WI 0.25 QRS 0.16 RR 0.87 QT 0.46 QTc 0.49 See Clinical Report link for waveform capture us Unknown Provider POINT OF CARE CARDIOLOGY Final Result Performing Organization Address City/[facility]/ZIP Co de Phone Number [facility] [address] [place] [phone] * (ABNORMAL) CBC (03/06/2025 6:19 AM EDT) Pathologist [facility] WBC 6.2 3.7 - 10.3 x10(3)/mcL 03/06/2025 6:39 AM EDT [facility] RBC 2.95(L) 4.60 - 6.10 x10(6)/mcL 03/06/2025 6:39 AM EDT [facility] Hgb 8.9(L) 13.7 - 17.5 g/dL 03/06/2025 6:39 AM EDT [facility] Hct 28.3(L) 40.0 - 51.0 % 03/06/2025 6:39 AM EDT [facility] MCV 95.9 80.0 - 100.0 fL 03/06/2025 6:39 AM EDT [facility] MCH 30.2 26.0 - 34.0 pg 03/06/2025 6:39 AM EDT [facility] MCHC 31.4 30.7 - 35.5 g/dL 03/06/2025 6:39 AM EDT [facility] RDW 14.4 <=14.9 % 03/06/2025 6:39 AM EDT [facility] Platelet 373(H) 155 - 369 x10(3)/mcL 03/06/2025 6:39 AM EDT [facility] MPV 9.1 8.8 - 12.5 fL 03/06/2025 6:39 AM EDT [facility] Blood VENOUS STRUCTURE / Unknown Venipuncture / Unknown 03/06/2025 6:19 AM EDT 03/06/2025 6:33 AM EDT us Ozzie Fernandez MD HEMATOLOGY ORDERABLES Final Resu lt [facility] [address] [place] [address] * ECG AND WAVEFORMS - TELEMETRY (03/06/2025 1:27 AM EDT) ECG INTERPRET Error [facility] 03/06/2025 1:27 AM EDT Narrative [facility] - 03/06/2025 1:29 AM EDT VTACH See Clinical Report link for waveform capture us Unknown Provider POINT OF CARE CARDIOLOGY Final Result Performing Organization Address City/[facility]/ZIP Co de Phone Number [facility] [address] [place] [phone] * ECG AND WAVEFORMS - TELEMETRY (03/05/2025 9:42 PM EDT) ECG INTERPRET First Degree Sinus Rhythm [facility] 03/05/2025 9:42 PM EDT Narrative [facility] - 03/05/2025 9:46 PM EDT HC/ROUTINE/FIRST DEGREE/IVCD/PAC'S WI 0.29 QRS 0.16 QT 0.42 See Clinical Report link for waveform capture us Unknown Provider POINT OF CARE CARDIOLOGY Final Result Performing Organization Address City/[facility]/ZIP Co de Phone Number [facility] [address] [place] [phone] * (ABNORMAL) GLUCOSE METER POC (03/05/2025 8:50 PM EDT) Glucose Meter POC 218(H) 70 - 100 mg/dL 03/05/2025 8:51 PM EDT [facility] Sample Type Capillary 03/05/2025 8:51 PM EDT [facility] Patient Status Non-Critical Patient 03/05/2025 8:51 PM EDT [facility] Blood BLOOD SPECIMEN / Unknown 03/05/2025 8:50 PM EDT 03/05/2025 8:51 PM EDT us Stephen Covarrubias MD POINT OF CARE TEST ORDERABLE S Final Result Performing Organization Address [facility] Co de Phone Number [facility] [address] [place] [address] * (ABNORMAL) GLUCOSE METER POC (03/05/2025 4:34 PM EDT) Glucose Meter POC 163(H) 70 - 100 mg/dL 03/05/2025 4:35 PM EDT [facility] Sample Type Capillary 03/05/2025 4:35 PM EDT [facility] Patient Status Non-Critical Patient 03/05/2025 4:35 PM EDT [facility] Blood BLOOD SPECIMEN / Unknown 03/05/2025 4:34 PM EDT 03/05/2025 4:35 PM EDT Stephen Covarrubias MD POINT OF CARE TEST ORDERABLE S Final Result Performing Organization Address City/[facility] Co de Phone Number [facility] [address] [place] [address] * (ABNORMAL) GLUCOSE METER POC (03/05/2025 11:51 AM EDT) Glucose Meter POC 153(H) 70 - 100 mg/dL 03/05/2025 11:53 AM EDT [facility] Sample Type Capillary 03/05/2025 11:53 AM EDT [facility] Patient Status Non-Critical Patient 03/05/2025 11:53 AM EDT [facility] Blood BLOOD SPECIMEN / Unknown 03/05/2025 11:51 AM EDT 03/05/2025 11:53 AM EDT Stephen Covarrubias MD POINT OF CARE TEST ORDERABLE S Final Result Performing Organization Address [facility]/ZIP Co de Phone Number [facility] [address] [place] [address] * (ABNORMAL) GLUCOSE METER POC (03/05/2025 8:45 AM EDT) Glucose Meter POC 108(H) 70 - 100 mg/dL 03/05/2025 8:47 AM EDT [facility] Sample Type Capillary 03/05/2025 8:47 AM EDT [facility] Patient Status Non-Critical Patient 03/05/2025 8:47 AM EDT [facility] Blood BLOOD SPECIMEN / Unknown 03/05/2025 8:45 AM EDT 03/05/2025 8:47 AM EDT Stephen Covarrubias MD POINT OF CARE TEST ORDERABLE S Final Result Performing Organization Address [facility] Co de Phone Number [facility] [address] [place] [address] * ECG AND WAVEFORMS - TELEMETRY (03/05/2025 7:03 AM EDT) ECG INTERPRET First degree Sinus with IVCD [facility] 03/05/2025 7:03 AM EDT Narrative [facility] - 03/05/2025 8:18 AM EDT AM ROUTINE/SR/PVC/IVCD WI 0.26 QRS 0.19 RR 0.92 QT 0.49 QTc 0.51 See Clinical Report link for waveform capture us Unknown Provider POINT OF CARE CARDIOLOGY Final Result Performing Organization Address City/[facility]/ZIP Co de Phone Number [facility] [address] [place] [address] * (ABNORMAL) GLUCOSE METER POC (03/04/2025 8:35 PM EDT) Glucose Meter POC 164(H) 70 - 100 mg/dL 03/04/2025 8:37 PM EDT [facility] Sample Type Capillary 03/04/2025 8:37 PM EDT [facility] Patient Status Non-Critical Patient 03/04/2025 8:37 PM EDT [facility] Blood BLOOD SPECIMEN / Unknown 03/04/2025 8:35 PM EDT 03/04/2025 8:37 PM EDT us Stephen Covarrubias MD POINT OF CARE TEST ORDERABLE S Final Result Performing Organization Address City/[facility]/ZIP Co de Phone Number [facility] [address] [place] [address] * ECG AND WAVEFORMS - TELEMETRY (03/04/2025 7:41 PM EDT) [facility] ECG INTERPRET First Degree Sinus Rhythm [facility] 03/04/2025 7:41 PM EDT Narrative [facility] - 03/04/2025 7:52 PM EDT WANDERING 1ST D AVB, IVCD, PVCs WI 0.24 QRS 0.14 QT 0.39 See Clinical Report link for waveform capture us Unknown Provider POINT OF CARE CARDIOLOGY Final Result Performing Organization Address City/[facility]/ZIP Co de Phone Number [facility] [address] [place] [address] * (ABNORMAL) GLUCOSE METER POC (03/04/2025 5:11 PM EDT) Glucose Meter POC 136(H) 70 - 100 mg/dL 03/04/2025 5:12 PM EDT [facility] Sample Type Capillary 03/04/2025 5:12 PM EDT [facility] Patient Status Non-Critical Patient 03/04/2025 5:12 PM EDT [facility] Blood BLOOD SPECIMEN / Unknown 03/04/2025 5:11 PM EDT 03/04/2025 5:12 PM EDT Stephen Covarrubias MD POINT OF CARE TEST ORDERABLE S Final Result Performing Organization Address [facility] Co de Phone Number [facility] [address] [place] [address] * (ABNORMAL) GLUCOSE METER POC (03/04/2025 11:57 AM EDT) Glucose Meter POC 167(H) 70 - 100 mg/dL 03/04/2025 11:59 AM EDT [facility] Sample Type Capillary 03/04/2025 11:59 AM EDT [facility] Patient Status Non-Critical Patient 03/04/2025 11:59 AM EDT [facility] Blood BLOOD SPECIMEN / Unknown 03/04/2025 11:57 AM EDT 03/04/2025 11:59 AM EDT Stephen Covarrubias MD POINT OF CARE TEST ORDERABLE S Final Result Performing Organization Address [facility] de Phone Number [facility] [address] [place] [address] * (ABNORMAL) GLUCOSE METER POC (03/04/2025 8:19 AM EDT) Glucose Meter POC 116(H) 70 - 100 mg/dL 03/04/2025 8:21 AM EDT [facility] Sample Type Capillary 03/04/2025 8:21 AM EDT [facility] Patient Status Non-Critical Patient 03/04/2025 8:21 AM EDT [facility] Blood BLOOD SPECIMEN / Unknown 03/04/2025 8:19 AM EDT 03/04/2025 8:21 AM EDT us Stephen Covarrubias MD POINT OF CARE TEST ORDERABLE S Final Result [facility] [address] [place] [address] * (ABNORMAL) CBC (03/04/2025 6:09 AM EDT) WBC 6.3 3.7 - 10.3 x10(3)/mcL 03/04/2025 6:22 AM EDT [facility] RBC 2.92(L) 4.60 - 6.10 x10(6)/mcL 03/04/2025 6:22 AM EDT [facility] Hgb 9.1(L) 13.7 - 17.5 g/dL 03/04/2025 6:22 AM EDT [facility] Hct 28.5(L) 40.0 - 51.0 % 03/04/2025 6:22 AM EDT [facility] MCV 97.6 80.0 - 100.0 fL 03/04/2025 6:22 AM EDT [facility] MCH 31.2 26.0 - 34.0 pg 03/04/2025 6:22 AM EDT [facility] MCHC 31.9 30.7 - 35.5 g/dL 03/04/2025 6:22 AM EDT [facility] RDW 14.4 <=14.9 % 03/04/2025 6:22 AM EDT [facility] Platelet 322 155 - 369 x10(3)/mcL 03/04/2025 6:22 AM EDT [facility] MPV 9.0 8.8 - 12.5 fL 03/04/2025 6:22 AM EDT [facility] Blood VENOUS BLOOD / Unknown Venipuncture / Unknown 03/04/2025 6:09 AM EDT 03/04/2025 6:20 AM EDT us Ozzie Fernandez MD HEMATOLOGY ORDERABLES Final Resu lt [facility] [address] [place] [address] * (ABNORMAL) GLUCOSE METER POC (03/03/2025 8:08 PM EDT) Glucose Meter POC 198(H) 70 - 100 mg/dL 03/03/2025 8:09 PM EDT [facility] Sample Type Capillary 03/03/2025 8:09 PM EDT [facility] Patient Status Non-Critical Patient 03/03/2025 8:09 PM EDT [facility] Blood BLOOD SPECIMEN / Unknown 03/03/2025 8:08 PM EDT 03/03/2025 8:09 PM EDT us Ozzie Fernandez MD POINT OF CARE TEST ORDERABLES Fi nal Result Performing Organization Address City/[facility]/ZIP Co de Phone Number [facility] [address] [place] [address] * ECG AND WAVEFORMS - TELEMETRY (03/03/2025 7:00 PM EDT) [facility] ECG INTERPRET First degree Sinus with IVCD [facility] 03/03/2025 7:00 PM EDT Narrative [facility] - 03/03/2025 7:34 PM EDT ROUTINE W/ PVC, PAC, IVCD (LZ) WI 0.24 QRS 0.16 RR 0.77 QT 0.41 QTc 0.46 See Clinical Report link for waveform capture us Unknown Provider POINT OF CARE CARDIOLOGY Final Result [facility] [address] [place] [address] * (ABNORMAL) GLUCOSE METER POC (03/03/2025 4:16 PM EDT) Glucose Meter POC 125(H) 70 - 100 mg/dL 03/03/2025 4:18 PM EDT [facility] Sample Type Capillary 03/03/2025 4:18 PM EDT [facility] Patient Status Non-Critical Patient 03/03/2025 4:18 PM EDT [facility] Blood BLOOD SPECIMEN / Unknown 03/03/2025 4:16 PM EDT 03/03/2025 4:18 PM EDT us Ozzie Fernandez MD POINT OF CARE TEST ORDERABLES Fi nal Result Performing Organization Address City/[facility]/ZIP Co de Phone Number [facility] [address] [place] [address] * (ABNORMAL) GLUCOSE METER POC (03/03/2025 12:22 PM EDT) Glucose Meter POC 132(H) 70 - 100 mg/dL 03/03/2025 12:29 PM EDT [facility] Sample Type Capillary 03/03/2025 12:29 PM EDT [facility] Patient Status Non-Critical Patient 03/03/2025 12:29 PM EDT [facility] Blood BLOOD SPECIMEN / Unknown 03/03/2025 12:22 PM EDT 03/03/2025 12:29 PM EDT us Ozzie Fernandez MD POINT OF CARE TEST ORDERABLES Fi nal Result Performing Organization Address [facility] de Phone Number [facility] [address] [place] [address] * GLUCOSE METER POC (03/03/2025 8:39 AM EDT) Glucose Meter POC 94 70 - 100 mg/dL 03/03/2025 8:41 AM EDT [facility] Sample Type Capillary 03/03/2025 8:41 AM EDT [facility] Patient Status Non-Critical Patient 03/03/2025 8:41 AM EDT [facility] Blood BLOOD SPECIMEN / Unknown 03/03/2025 8:39 AM EDT 03/03/2025 8:41 AM EDT us Ozzie Fernandez MD POINT OF CARE TEST ORDERABLES Fi nal Result Performing Organization Address City/[facility]/ZIP Co de Phone Number [facility] [address] [place] [address] * ECG AND WAVEFORMS - TELEMETRY (03/03/2025 7:21 AM EDT) ECG INTERPRET Sinus Rhythm w/ First Degree AVB [facility] 03/03/2025 7:21 AM EDT Narrative [facility] - 03/03/2025 7:30 AM EDT 1STD EGREE/IVCD/ROUTINE/AK WI 0.26 QRS 0.14 RR 0.79 QT 0.43 QTc 0.48 See Clinical Report link for waveform capture us Unknown Provider POINT OF CARE CARDIOLOGY Final Result Performing Organization Address City/[facility]/ZIP Co de Phone Number [facility] [address] [place] [id number] * (ABNORMAL) GLUCOSE METER POC (03/02/2025 8:17 PM EDT) [facility] Glucose Meter POC 171(H) 70 - 100 mg/dL 03/02/2025 8:19 PM EDT [facility] Sample Type Capillary 03/02/2025 8:19 PM EDT [facility] Patient Status Non-Critical Patient 03/02/2025 8:19 PM EDT [facility] Blood BLOOD SPECIMEN / Unknown 03/02/2025 8:17 PM EDT 03/02/2025 8:19 PM EDT us Ozzie Fernandez MD POINT OF CARE TEST ORDERABLES Fi nal Result [facility] [address] [place] [address] * ECG AND WAVEFORMS - TELEMETRY (03/02/2025 7:14 PM EDT) ECG INTERPRET Sinus Rhythm w/ First Degree AVB [facility] 03/02/2025 7:14 PM EDT Narrative [facility] - 03/02/2025 7:54 PM EDT SA/ROUTINE/AM WI 0.25 QRS 0.11 QT 0.42 See Clinical Report link for waveform capture us Unknown Provider POINT OF CARE CARDIOLOGY Final Result Performing Organization Address City/[facility]/ZIP Co de Phone Number [facility] [address] [place] [address] * (ABNORMAL) GLUCOSE METER POC (03/02/2025 4:40 PM EDT) Glucose Meter POC 135(H) 70 - 100 mg/dL 03/02/2025 4:41 PM EDT [facility] Sample Type Capillary 03/02/2025 4:41 PM EDT [facility] Patient Status Non-Critical Patient 03/02/2025 4:41 PM EDT [facility] Blood BLOOD SPECIMEN / Unknown 03/02/2025 4:40 PM EDT 03/02/2025 4:41 PM EDT Ozzie Fernandez MD POINT OF CARE TEST ORDERABLES Fi nal Result Performing Organization Address City/[facility]/ZIP Co de Phone Number [facility] [address] [place] [address] * [place] US LOWER EXTREMITY VENOUS BILATERAL (03/02/2025 2:12 PM EDT) Anatomical Region Laterality Modality Vascular, Leg Vascular Imaging 03/02/2025 1:42 PM EDT Impressions 03/02/2025 2:33 PM EDT Conclusions * No evidence of deep vein thrombosis identified in the bilateral lower extremities. * No evidence of superficial thrombosis identified in the bilateral lower extremities. Narrative Procedure Note Moiz Carcamo MD - 03/02/2025 IMPRESSION Conclusions * No evidence of deep vein thrombosis identified in the bilaterallower extremities. * No evidence of superficial thrombosis identified in the bilaterallower extremities. Ozzie Fernandez MD IMG VASCULAR ORDERABLES Final Re sult * GLUCOSE METER POC (03/02/2025 12:10 PM EDT) Glucose Meter POC 76 70 - 100 mg/dL 03/02/2025 12:11 PM EDT [facility] Sample Type Capillary 03/02/2025 12:11 PM EDT [facility] Patient Status Non-Critical Patient 03/02/2025 12:11 PM EDT [facility] Blood BLOOD SPECIMEN / Unknown 03/02/2025 12:10 PM EDT 03/02/2025 12:11 PM EDT Ozzie Fernandez MD POINT OF CARE TEST ORDERABLES Fi nal Result Performing Organization Address [facility] Co de Phone Number [facility] [address] [place] [address] * GLUCOSE METER POC (03/02/2025 7:51 AM EDT) Glucose Meter POC 71 70 - 100 mg/dL 03/02/2025 7:52 AM EDT [facility] Sample Type Capillary 03/02/2025 7:52 AM EDT [facility] Patient Status Non-Critical Patient 03/02/2025 7:52 AM EDT [facility] Blood BLOOD SPECIMEN / Unknown 03/02/2025 7:51 AM EDT 03/02/2025 7:52 AM EDT Ozzie Fernandez MD POINT OF CARE TEST ORDERABLES Fi nal Result Performing Organization Address [facility] Co de Phone Number [facility] [address] [place] [address] * ECG AND WAVEFORMS - TELEMETRY (03/02/2025 7:32 AM EDT) ECG INTERPRET Sinus Arrythmia [facility] 03/02/2025 7:32 AM EDT Narrative [facility] - 03/02/2025 7:39 AM EDT EH - ROUTINE; IVCD, 1st DEG WI 0.27 QRS 0.14 RR 0.76 QT 0.42 QTc 0.48 See Clinical Report link for waveform capture Unknown Provider POINT OF CARE CARDIOLOGY Final Result [facility] [address] [place] [id number] * (ABNORMAL) CBC WITH DIFF (03/02/2025 6:18 AM EDT) WBC 9.5 3.7 - 10.3 x10(3)/mcL 03/02/2025 7:02 AM EDT [facility] RBC 2.98(L) 4.60 - 6.10 x10(6)/mcL 03/02/2025 7:02 AM EDT [facility] Hgb 9.3(L) 13.7 - 17.5 g/dL 03/02/2025 7:02 AM EDT [facility] Hct 29.0(L) 40.0 - 51.0 % 03/02/2025 7:02 AM EDT [facility] MCV 97.3 80.0 - 100.0 fL 03/02/2025 7:02 AM EDT [facility] MCH 31.2 26.0 - 34.0 pg 03/02/2025 7:02 AM EDT [facility] MCHC 32.1 30.7 - 35.5 g/dL 03/02/2025 7:02 AM EDT [facility] RDW 14.6 <=14.9 % 03/02/2025 7:02 AM EDT [facility] Platelet 280 155 - 369 x10(3)/mcL 03/02/2025 7:02 AM EDT [facility] MPV 8.5(L) 8.8 - 12.5 fL 03/02/2025 7:02 AM EDT [facility] Neut Percent 81.4 % 03/02/2025 7:02 AM EDT [facility] Comment:Neutrophils equals s egs plus bands Imm Gran% 0.4 % 03/02/2025 7:02 AM EDT [facility] Comment:Automated count of m etamyelocytes, myelocytes and promyelocytes. Lymph Percent 9.8 % 03/02/2025 7:02 AM EDT [facility] [place] Percent 6.1 % 03/02/2025 7:02 AM EDT [facility] Eos Percent 2.1 % 03/02/2025 7:02 AM EDT [facility] Baso Percent 0.2 % 03/02/2025 7:02 AM EDT [facility] Neut # 7.8(H) 1.6 - 6.1 x10(3)/[facility] 03/02/2025 7:02 AM EDT [facility] Comment:Neutrophils equals s egs plus bands IMMGRAN# 0.0 0.0 - 0.1 x10(3)/[facility] 03/02/2025 7:02 AM EDT [facility] Comment:Automated count of m etamyelocytes, myelocytes and promyelocytes. An absolute IG <0.1 is reported as 0.0. Lymph # 0.9(L) 1.2 - 3.9 x10(3)/[facility] 03/02/2025 7:02 AM EDT [facility] [place] # 0.6 0.3 - 0.9 x10(3)/[facility] 03/02/2025 7:02 AM EDT [facility] Eos# 0.2 0.0 - 0.5 x10(3)/[facility] 03/02/2025 7:02 AM EDT [facility] Baso # 0.0 0.0 - 0.1 x10(3)/[facility] 03/02/2025 7:02 AM EDT [facility] Blood VENOUS BLOOD / Unknown Venipuncture / Unknown 03/02/2025 6:18 AM EDT 03/02/2025 6:25 AM EDT us Ozzie Fernandez MD HEMATOLOGY ORDERABLES Final Resu lt [facility] [address] [place] [address] * (ABNORMAL) BASIC METABOLIC PANEL (03/02/2025 6:18 AM EDT) Sodium 134(L) 136 - 145 mmol/L 03/02/2025 6:52 AM EDT [facility] Potassium 4.2 3.5 - 5.0 mmol/L 03/02/2025 6:52 AM EDT [facility] Chloride 101 98 - 107 mmol/L 03/02/2025 6:52 AM EDT [facility] Total CO2 23 22 - 29 mmol/L 03/02/2025 6:52 AM EDT [facility] Anion Gap 10 7 - 16 mmol/L 03/02/2025 6:52 AM EDT [facility] Calcium 8.0(L) 8.8 - 10.4 mg/dL 03/02/2025 6:52 AM EDT [facility] Glucose Lvl 78 70 - 99 mg/dL 03/02/2025 6:52 AM EDT [facility] BUN 15 8 - 23 mg/dL 03/02/2025 6:52 AM EDT [facility] Creatinine 0.86 0.67 - 1.30 mg/dL 03/02/2025 6:52 AM EDT [facility] eGFR (CKD-EPIcr 2020) 84 >=60 mL/min/1.7 3 m2 03/02/2025 6:52 AM EDT [facility] Comment:Estimated GFR was ca lculated using the CKD-EPIcr (2020) equation refit without race. The equation is recommended by the [employer] - [place] [employer] Task Force. Blood VENOUS BLOOD / Unknown Venipuncture / Unknown 03/02/2025 6:18 AM EDT 03/02/2025 6:25 AM EDT Ozzie Fernandez MD CHEMISTRY ORDERABLES Final Resul t Performing Organization Address City/[facility] de Phone Number [facility] [address] [place] [address] * EXTRA MINT CHARLES HURTADO (03/02/2025 6:00 AM EDT) Blood VENOUS BLOOD / Unknown Venipuncture / Unknown 03/02/2025 6:00 AM EDT 03/02/2025 6:40 AM EDT Ozzie Fernandez MD CHEMISTRY ORDERABLES Final Resul t Performing Organization Address [facility]/ZIP Co de Phone Number [facility] [address] [place] [address] * EXTRA LAVENDER (03/02/2025 6:00 AM EDT) Blood VENOUS BLOOD / Unknown Venipuncture / Unknown 03/02/2025 6:00 AM EDT 03/02/2025 6:40 AM EDT Ozzie Fernandez MD HEMATOLOGY ORDERABLES Final Resu lt Performing Organization Address [facility] Co de Phone Number [facility] [address] [place] [address] * (ABNORMAL) PARTIAL THROMBOPLASTIN TIME (03/02/2025 6:00 AM EDT) PTT 48.1(H) 25.7 - 36.8 second(s) 03/02/2025 6:45 AM EDT [facility] Comment: Therapeutic range for unfractionated heparin: 50.1 - 98.7 seconds Therapeutic range for direct thrombin inhibitors: Argatroban is 1.5 to 3 times the aPTT baseline. Lepirudin is 1.5 to 2 times the aPTT baseline. The aPTT should not exceed 100 seconds. The dosage of Argatroban should be decreased in patients with hepatic impairment. The dosage of Lepirudin should be decreased in renal insufficiency. Blood VENOUS BLOOD / Unknown Venipuncture / Unknown 03/02/2025 6:00 AM EDT 03/02/2025 6:31 AM EDT Ozzie Fernandez MD HEMATOLOGY ORDERABLES Final Resu lt Performing Organization Address City/[facility]/ZIP Co de Phone Number [facility] [address] [place] [address] * HEPARIN ANTI-XA, UNF (03/02/2025 6:00 AM EDT) Heparin Level UNF 0.57 0.30 - 0.70 IU/mL 03/02/2025 6:45 AM EDT [facility] Comment:The therapeutic rang e for heparinized patients monitored by the Heparin Lvl UF is 0.30-0.70 IU/mL. Blood VENOUS BLOOD / Unknown Venipuncture / Unknown 03/02/2025 6:00 AM EDT 03/02/2025 6:31 AM EDT us Ozzie Fernandez MD HEMATOLOGY ORDERABLES Final Resu lt Performing Organization Address [facility] de Phone Number [facility] [address] [place] [address] * GLUCOSE METER POC (03/01/2025 9:27 PM EDT) Glucose Meter POC 89 70 - 100 mg/dL 03/01/2025 9:28 PM EDT [facility] Sample Type Capillary 03/01/2025 9:28 PM EDT [facility] Patient Status Non-Critical Patient 03/01/2025 9:28 PM EDT [facility] Blood BLOOD SPECIMEN / Unknown 03/01/2025 9:27 PM EDT 03/01/2025 9:28 PM EDT Ozzie Fernandez MD POINT OF CARE TEST ORDERABLES Fi nal Result Performing Organization Address [facility] de Phone Number [facility] [address] [place] [address] * (ABNORMAL) PARTIAL THROMBOPLASTIN TIME (03/01/2025 7:45 PM EDT) PTT 38.8(H) 25.7 - 36.8 second(s) 03/01/2025 8:29 PM EDT [facility] Comment: Therapeutic range for unfractionated heparin: 50.1 - 98.7 seconds Therapeutic range for direct thrombin inhibitors: Argatroban is 1.5 to 3 times the aPTT baseline. Lepirudin is 1.5 to 2 times the aPTT baseline. The aPTT should not exceed 100 seconds. The dosage of Argatroban should be decreased in patients with hepatic impairment. The dosage of Lepirudin should be decreased in renal insufficiency. Blood VENOUS BLOOD / Unknown Venipuncture / Unknown 03/01/2025 7:45 PM EDT 03/01/2025 7:51 PM EDT Ozzie Fernandez MD HEMATOLOGY ORDERABLES Final Resu lt Performing Organization Address City/[facility]/ZIP Co de Phone Number [facility] [address] [place] [address] * HEPARIN ANTI-XA, UNF (03/01/2025 7:45 PM EDT) [facility] Heparin Level UNF 0.47 0.30 - 0.70 IU/mL 03/01/2025 8:29 PM EDT [facility] Comment:The therapeutic rang e for heparinized patients monitored by the Heparin Lvl UF is 0.30-0.70 IU/mL. Blood VENOUS BLOOD / Unknown Venipuncture / Unknown 03/01/2025 7:45 PM EDT 03/01/2025 7:51 PM EDT Result [facility] Ozzie Fernandez MD HEMATOLOGY ORDERABLES Final Resu lt Performing Organization Address City/[facility]/ZIP Co de Phone Number [facility] [address] [place] [address] * ECG AND WAVEFORMS - TELEMETRY (03/01/2025 7:00 PM EDT) [facility] ECG INTERPRET NSR [facility] 03/01/2025 7:00 PM EDT Narrative [facility] - 03/01/2025 8:58 PM EDT Routine 1900/1st AVB/IVCD/PAC/PVC//qj WI 0.27 QRS 0.17 RR 0.79 QT 0.46 QTc 0.51 See Clinical Report link for waveform capture Unknown Provider POINT OF CARE CARDIOLOGY Final Result Performing Organization Address City/[facility]/ZIP Co de Phone Number [facility] [address] [place] [address] * GLUCOSE METER POC (03/01/2025 5:10 PM EDT) Glucose Meter POC 100 70 - 100 mg/dL 03/01/2025 5:12 PM EDT [facility] Sample Type Capillary 03/01/2025 5:12 PM EDT [facility] Patient Status Non-Critical Patient 03/01/2025 5:12 PM EDT [facility] Blood BLOOD SPECIMEN / Unknown 03/01/2025 5:10 PM EDT 03/01/2025 5:12 PM EDT us Ozzie Fernandez MD POINT OF CARE TEST ORDERABLES Fi nal Result [facility] [address] [place] [address] * CT ABDOMEN PELVIS W CONTRAST (03/01/2025 4:37 PM EDT) Anatomical Region Laterality Modality Abdomen, Chest, Pelvis, Hip Comp uted Tomography 03/01/2025 4:37 PM EDT Impressions 03/01/2025 5:42 PM EDT 1. Possible constipation. 2. Bilateral pleural effusions and adjacent compressive atelectasis. 3. Right hip arthroplasty with heterotopic ossification and possible fracture involving the posterior aspect of the right greater trochanter. - Note: Radiology results need to be interpreted within a comprehensive clinical context. If you have questions about the radiology report, please contact the office of the ordering clinician. Narrative 03/01/2025 5:[address] ABDOMEN AND PELVIS WITH CONTRAST, 03/01/2025 4:37 PM CLINICAL HISTORY: -abdominal Pain. COMPARISON: None. PROCEDURE COMMENTS: Multi-detector CT of the abdomen and pelvis with multiplanar reformatting. Isovue 370 IV contrast given as recorded in EPIC, along with radiodense GI contrast. Dose 1 : CT DLP Total : 2203.78 mGycm DLP Spiral Max : 1641.65 mGycm Maximum CTDI Vol : 27.91 mGy FINDINGS: Lower chest: Bilateral pleural effusions and adjacent compressive atelectasis Liver: Normal. Gallbladder: Normal. Biliary tract: Normal for age. Pancreas: Normal. Spleen: Normal. Adrenals: Normal. Kidneys: Bilateral renal cysts. Atrophic right renal upper pole moiety Gastrointestinal tract: No acute small bowel findings.Grossly unremarkable stomach.Partially stool filled colon may reflect constipation. No CT findings to suggest acute appendicitis. Peritoneum: No pneumoperitoneum or pathologic free fluid. Mesentery and retroperitoneum: No adenopathy or aneurysm. Pelvic organs: No acute findings as visualized. Abdominal wall and diaphragm: Intact. Musculoskeletal: Multilevel lumbar postsurgical sequelae. Right hip arthroplasty with metal streak artifact limiting evaluation of adjacent structures. Right collection lateral to the right hip. Heterotopic ossification with possible fracture involving posterior aspect of the right greater trochanter. 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 Procedure Note Noe Asencio MD - 03/01/2025 CT ABDOMEN AND PELVIS WITH CONTRAST, 03/01/2025 4:37 PM CLINICAL HISTORY: -abdominal Pain. COMPARISON: None. PROCEDURE COMMENTS: Multi-detector CT of the abdomen and pelvis with multiplanar reformatting. Isovue 370 IV contrast given as recorded inEPIC, along with radiodense GI contrast. Dose 1 : CT DLP Total : 2203.78 mGycm DLP Spiral Max : 1641.65 mGycm Maximum CTDI Vol : 27.91 mGy FINDINGS: Lower chest: Bilateral pleural effusions and adjacent compressiveatelectasis Liver: Normal. Gallbladder: Normal. Biliary tract: Normal for age. Pancreas: Normal. Spleen: Normal. Adrenals: Normal. Kidneys: Bilateral renal cysts. Atrophic right renal upper pole moiety Gastrointestinal tract: No acute small bowel findings.Grosslyunremarkable stomach.Partially stool filled colon may reflect constipation. No CT findings to suggest acute appendicitis. Peritoneum: No pneumoperitoneum or pathologic free fluid. Mesentery and retroperitoneum: No adenopathy or aneurysm. Pelvic organs: No acute findings as visualized. Abdominal wall and diaphragm: Intact. Musculoskeletal: Multilevel lumbar postsurgical sequelae. Right hiparthroplasty with metal streak artifact limiting evaluation of adjacent structures.Right collection lateral to the right hip. 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 Bilateral sacroiliacdegenerative joint disease. IMPRESSION: 1. Possible constipation. 2. Bilateral pleural effusions and adjacent compressive atelectasis. 3. Right hip arthroplasty with heterotopic ossification and possiblefracture involving the posterior aspect of the right greater trochanter. - Note: Radiology results need to be interpreted within a comprehensiveclinical context. If you have questions about the radiology report, please contactthe office of the ordering clinician. us Ozzie Fernandez MD [facility] ORDERABLES Final Result * CT ANGIOGRAM PULMONARY W CONTRAST (03/01/2025 4:36 PM EDT) Anatomical Region Laterality Modality Chest Computed Tomogra phy 03/01/2025 4:36 PM EDT Impressions 03/01/2025 6:07 PM EDT Positive for pulmonary emboli in the left lower lobe. Bilateral pleural effusions. Atelectasis versus infection as above. Mild adenopathy which may be reactive. Direct communication to care team using [employer]. Notification included: OZZIE FERNANDEZ Approximate date and time: 03/01/2025 6:07 PM Note: Radiology results need to be interpreted within a comprehensive clinical context. If you have questions about the radiology report, please contact the office of the ordering clinician. Narrative 03/01/2025 6:[address] PULMONARY ANGIOGRAM, 03/01/2025 4:36 PM CLINICAL HISTORY: -Chest PAin r/o PE. COMPARISON: None. TECHNIQUE: PE protocol CT angiogram of the chest using Isovue 370 IV contrast as recorded in [employer]. 2-D multiplanar reconstructions and 3-D MIP reconstructions reviewed. Dose 1 : CT DLP Total : 2203.78 mGycm DLP Spiral Max : 1641.65 mGycm Maximum CTDI Vol : 27.91 mGy FINDINGS: Adequate visualization of the pulmonary arteries to the segmental/subsegmental level. Filling defects within segmental and subsegmental pulmonary arteries left lower lobe as well as the distal left lobar pulmonary artery. No radiologic findings to suggest heart strain. No aortic arch aneurysm. Moderate left and small right pleural effusions. Mildly enlarged mediastinal and right hilar lymph nodes measuring up to 1.1 cm in short axis. No pneumothorax. Mild opacities posterior lower lobes and posterior right upper lobe. Coronary artery calcification: Moderate. Procedure Note Polly Luevano MD - 03/01/2025 CT PULMONARY ANGIOGRAM, 03/01/2025 4:36 PM CLINICAL HISTORY: -Chest PAin r/o PE. COMPARISON: None. TECHNIQUE: PE protocol CT angiogram of the chest using Isovue 370 IVcontrast as recorded in EPIC. 2-D multiplanar reconstructions and 3-D MIP reconstructions reviewed. Dose 1 : CT DLP Total : 2203.78 mGycm DLP Spiral Max : 1641.65 mGycm Maximum CTDI Vol : 27.91 mGy FINDINGS: Adequate visualization of the pulmonary arteries to the segmental/subsegmental level. Filling defects within segmental and subsegmental pulmonary arteries leftlower lobe as well as the distal left lobar pulmonary artery. No radiologicfindings to suggest heart strain. No aortic arch aneurysm. Moderate left and small right pleural effusions. Mildly enlargedmediastinal and right hilar lymph nodes measuring up to 1.1 cm in short axis. No pneumothorax. Mild opacities posterior lower lobes and posterior rightupper lobe. Coronary artery calcification: Moderate. IMPRESSION: Positive for pulmonary emboli in the left lower lobe. Bilateral pleural effusions. Atelectasis versus infection as above. Mild adenopathy which may be reactive. Direct communication to care team using [employer]. Notification included: OZZIE FERNANDEZ Approximate date and time: 03/01/2025 6:07 PM Note: Radiology results need to be interpreted within a comprehensiveclinical context. If you have questions about the radiology report, please contactthe office of the ordering clinician. us Ozzie Fernandez MD IMG CT ORDERABLES Final Result * EC ECHOCARDIOGRAM LIMITED W CONTRAST (03/01/2025 3:20 PM EDT) AORTIC STENOSIS moderate PYRAMIS MITRAL REGURGITATION moderate PYRAMIS Ejection Fraction 20% PYRAMIS LV DIASTOLIC PLAX 6.53 cm PYRAMIS Anatomical Region Laterality Modality Electrocardiogra phy 03/01/2025 2:27 PM EDT Impressions 03/01/2025 6:12 PM EDT Conclusions * Left ventricular chamber dimension is enlarged. * Left ventricular function is severely reduced with an estimated ejection fraction of 20%. * Left ventricular segmental wall motion is abnormal with paradoxical septal motion and regional variation. * The left ventricular diastolic function is consistent with grade III diastolic dysfunction / restrictive physiology (elevated left atrial pressure). * There is low flow, low gradient severe aortic valve stenosis present with a stroke volume index of 19.50 ml/m2, a peak aortic valve velocity of 307 cm/s, a mean gradient of 27 mmHg, and an aortic valve area of 0.66 cm2. Dimensionless Index 0.17. * There is moderate mitral valve regurgitation. * Right ventricular systolic function is normal. * Estimated pulmonary artery systolic pressure is 40 mmHg. Narrative Procedure Note David Mar MD - 03/01/2025 IMPRESSION Conclusions * Left ventricular chamber dimension is enlarged. * Left ventricular function is severely reduced with an estimatedejection fraction of 20%. * Left ventricular segmental wall motion is abnormal with paradoxicalseptal motion and regional variation. * The left ventricular diastolic function is consistent with grade III diastolic dysfunction / restrictive physiology (elevated left atrial pressure). * There is low flow, low gradient severe aortic valve stenosis presentwith a stroke volume index of 19.50 ml/m2, a peak aortic valve velocity of307 cm/s, a mean gradient of 27 mmHg, and an aortic valve area of 0.66 cm2. Dimensionless Index 0.17. * There is moderate mitral valve regurgitation. * Right ventricular systolic function is normal. * Estimated pulmonary artery systolic pressure is 40 mmHg. Stacia Shrestha MD IMG ECHO ORDERABLES Final Result * GLUCOSE METER POC (03/01/2025 1:49 PM EDT) [facility] Glucose Meter POC 72 70 - 100 mg/dL 03/01/2025 1:51 PM EDT [facility] Sample Type Capillary 03/01/2025 1:51 PM EDT [facility] Patient Status Non-Critical Patient 03/01/2025 1:51 PM EDT [facility] Blood BLOOD SPECIMEN / Unknown 03/01/2025 1:49 PM EDT 03/01/2025 1:51 PM EDT Sameer Ortega MD POINT OF CARE TEST ORDERABLES Fi nal Result [facility] [address] [place] [address] * (ABNORMAL) TROPONIN-T HIGH SENSITIVITY 2HR (03/01/2025 11:24 AM EDT) [facility] ch-dUktjtpho-H 2HR 37(H) <22 ng/L 03/01/2025 11:44 AM EDT [facility] hs-cTnT 2Hr Delta from Baseline 1 <4 ng/L 03/01/2025 11:44 AM EDT [facility] Blood VENOUS BLOOD / Unknown Venipuncture / Unknown 03/01/2025 11:24 AM EDT 03/01/2025 11:26 AM EDT Narrative [facility] - 03/01/2025 11:44 AM EDT Ingestion of johny doses of biotin (>5 mg/day) taken within 8 hours of drawing blood sample can interfere with this immunoassay test. us Stacia Shrestha MD CHEMISTRY ORDERABLES Final Resul t [facility] [address] [place] [address] * ECG AND WAVEFORMS - TELEMETRY (03/01/2025 10:33 AM EDT) [facility] ECG INTERPRET NSR with PVCs [facility] 03/01/2025 10:3 3 AM EDT Narrative [facility] - 03/01/2025 11:25 AM EDT MG/ROUTINE/1 DG HB, IVCD, PACS, PVCS WI 0.27 QRS 0.14 RR 0.76 QT 0.44 QTc 0.50 See Clinical Report link for waveform capture us Unknown Provider POINT OF CARE CARDIOLOGY Final Result [facility] [address] [place] [address] * (ABNORMAL) STAPHYLOCOCCUS AUREUS SCREEN (03/01/2025 10:29 AM EDT) [facility] Staph aureus PCR Detected(A) Not Detected 03/01/2025 1:56 PM EDT [facility] [employer], [facility] MRSA PCR Not Detected Not Detected 03/01/2025 1:56 PM EDT [facility] [employer], [facility] Swab BOTH ANTERIOR NARES / Unknown 03/01/2025 10:29 AM EDT 03/01/2025 10:33 AM EDT Narrative [facility] [employer], [facility] - 03/01/2025 1:56 PM EDT MRSA target DNA sequences are not detected. SA target DNA sequence is detected. This qualitative assay is intended for the detection of Staphylococcus aureus proprietary sequences for the staphylococcal protein A (spa) gene, the gene for methicillin resistance (mecA), and the staphylococcal cassette chromosome mec (SCCmec) inserted into the SA chromosomal attB site. This assay utilizes real time PCR on the [employer] GeneXpert Infinity, and its performance has been verified by the [facility]. A negative result does not rule out the presence of the Staphylococcus aureus or Methicillin resistant Staphylococcus aureus in concentrations below the limit of detection for the assay. This assay is FDA cleared to test on nares swabs collected on patients >21 years of age. Testing on patients < 21 years of age and on umbilicus sources is not FDA approved by this methodology, but has been developed and validated by the [facility] laboratory. Detailed methodology is available upon request. us Stacia Shrestha MD MICROBIOLOGY - GENERAL ORDERABLE S Final Result Performing Organization Address City/[facility] Co de Phone Number [facility] [employer] , [address] [place], [place] [id number] * BLOOD CULTURE (NO STAIN) (03/01/2025 10:09 AM EDT) Culture Result No Growth at 120 hours. BLOOD CULTURE (NO STAIN) 03/06/2025 12:01 PM EDT [facility] [employer], [facility] Blood VENOUS BLOOD / Unknown Venipuncture / Unknown 03/01/2025 10:09 AM EDT 03/01/2025 10:13 AM EDT us Stacia Shrestha MD MICROBIOLOGY - GENERAL ORDERABLE S Final Result Performing Organization Address City/[facility] Co de Phone Number [facility] [employer] , [place] [address] * BLOOD CULTURE (NO STAIN) (03/01/2025 9:59 AM EDT) Culture Result No Growth at 120 hours. BLOOD CULTURE (NO STAIN) 03/06/2025 12:01 PM EDT [facility] [employer] Blood VENOUS BLOOD / Unknown Venipuncture / Unknown 03/01/2025 9:59 AM EDT 03/01/2025 10:13 AM EDT us Stacia Shrestha MD MICROBIOLOGY - GENERAL ORDERABLE S Final Result [facility] [place] [address] [facility] , [place] [address] * (ABNORMAL) BLOOD GAS, VENOUS (03/01/2025 9:38 AM EDT) pH Venous 7.39 7.32 - 7.42 pH 03/01/2025 10:05 AM EDT [facility] pCO2 Venous 47 41 - 51 mmHg 03/01/2025 10:05 AM EDT [facility] pO2 Venous 43(H) 25 - 40 mmHg 03/01/2025 10:05 AM EDT [facility] Comment:Interpret with cauti on. Not recommended to evaluate patient's oxygenation status. Base Excess Olaf 3.1 mmol/L 10:05 AM EDT [facility] Hco3 Venous 28.5(H) 24.0 - 28.0 mmol/L 03/01/2025 10:05 AM EDT [facility] CO2 Total Olaf 27 25 - 29 mmol/L 03/01/2025 10:05 AM EDT [facility] O2 Sat. Venous 76.2(H) 40.0 - 70.0 % 03/01/2025 10:05 AM EDT [facility] Inspired O2 2L 03/01/2025 10:05 AM EDT [facility] Blood VENOUS BLOOD / Unknown Venipuncture / Unknown 03/01/2025 9:38 AM EDT 03/01/2025 9:59 AM EDT us Stacia Shrestha MD CHEMISTRY ORDERABLES Final Resul t Performing Organization Address [facility] de Phone Number [facility] [address] [place] [address] * (ABNORMAL) HEPATIC FUNCTION PANEL (03/01/2025 9:31 AM EDT) Total Protein 5.8(L) 6.4 - 8.3 gm/dL 03/01/2025 11:12 AM EDT [facility] Albumin 2.8(L) 3.2 - 4.6 gm/dL 03/01/2025 11:12 AM EDT [facility] Bili Direct <0.2 0.0 - 0.3 mg/dL 03/01/2025 11:12 AM EDT [facility] Bili Total 0.3 0.2 - 1.4 mg/dL 03/01/2025 11:12 AM EDT [facility] AST 15 <=40 U/L 03/01/2025 11:12 AM EDT [facility] ALT <5 <=41 U/L 03/01/2025 11:12 AM EDT [facility] Alk Phos 99 40 - 129 U/L 03/01/2025 11:12 AM EDT [facility] Blood VENOUS BLOOD / Unknown Venipuncture / Unknown 03/01/2025 9:31 AM EDT 03/01/2025 9:44 AM EDT us Ozzie Fernandez MD CHEMISTRY ORDERABLES Final Resul t Performing Organization Address [facility] Co de Phone Number [facility] [address] [place] [address] * (ABNORMAL) D-DIMER (03/01/2025 9:31 AM EDT) D-Dimer 1,096(H) <=500 ng/mL FEU 03/01/2025 10:53 AM EDT [facility] Comment:This is an automated latex enhanced immunoassay for the quantitative determination of D-Dimer that may be used, in conjunction with a clinical pretest probability assessment, to exclude venous thromboembolism in patients suspected of deep venous thrombosis (DVT) and pulmonary embolism (PE). The cutoff for exclusion of DVT and PE is 500 ng/mL Fibrinogen Equivalent Units (FEU). Elevated D-Dimer levels may be associated with PE, DVT, disseminated intravascular coagulation, recent surgery, recent bleeding, , malignancy, and inflammation. Blood VENOUS BLOOD / Unknown Venipuncture / Unknown 03/01/2025 9:31 AM EDT 03/01/2025 10:44 AM EDT us Ozzie Fernandez MD HEMATOLOGY ORDERABLES Final Resu lt [facility] [address] [place] [address] * EXTRA LAVENDER (03/01/2025 9:31 AM EDT) Blood VENOUS BLOOD / Unknown Venipuncture / Unknown 03/01/2025 9:31 AM EDT 03/01/2025 9:46 AM EDT us Sameer Ortega MD HEMATOLOGY ORDERABLES Final Resu lt [facility] [address] [place] [address] * PROCALCITONIN (03/01/2025 9:31 AM EDT) Procalcitonin 0.05 <=0.49 ng/mL 03/01/2025 10:22 AM EDT [facility] Blood VENOUS BLOOD / Unknown Venipuncture / Unknown 03/01/2025 9:31 AM EDT 03/01/2025 10:01 AM EDT Narrative [facility] - 03/01/2025 10:22 AM EDT Procalcitonin <0.50 ng/mL: Procalcitonin levels below 0.50 ng/mL on the first day of ICU admission represent a low risk for progression to severe sepsis and/or septic shock Procalcitonin >=0.50 ng/mL and <=2.00 ng/mL: If the procalcitonin measurement is performed shortly after the systemic infection process has started (usually less than 6 hours), this value may still be low. As various non-infectious conditions are known to induce procalcitonin as well, procalcitonin levels between 0.50 ng/mL and 2.00 ng/mL should be reviewed carefully to take into account the specific clinical background and condition(s) of the patient. Procalcitonin >2.00 ng/mL: Procalcitonin levels above 2.00 ng/mL on the first day of ICU admission represent a high risk for progression to severe sepsis and/or septic shock. us Stacia Shrestha MD CHEMISTRY ORDERABLES Final Resul t Performing Organization Address City/[facility] Co de Phone Number [facility] [address] [place] [id number] * (ABNORMAL) C-REACTIVE PROTEIN (03/01/2025 9:31 AM EDT) CRP 44.49(H) <=5.00 mg/L 03/01/2025 2:05 PM EDT [facility] Blood VENOUS BLOOD / Unknown Venipuncture / Unknown 03/01/2025 9:31 AM EDT 03/01/2025 10:37 AM EDT us Stacia Shrestha MD CHEMISTRY ORDERABLES Final Resul t Performing Organization Address City/[facility] Co de Phone Number [facility] [address] [place] [address] , [address] [place], [place] [id number] * LACTIC ACID (03/01/2025 9:31 AM EDT) Lactic Acid 1.4 0.5 - 1.9 mmol/L 03/01/2025 10:05 AM EDT [facility] Blood VENOUS BLOOD / Unknown Venipuncture / Unknown 03/01/2025 9:31 AM EDT 03/01/2025 9:45 AM EDT us Stacia Shrestha MD CHEMISTRY ORDERABLES Final Resul t Performing Organization Address [facility] de Phone Number [facility] [address] [place] [address] * (ABNORMAL) PARTIAL THROMBOPLASTIN TIME (03/01/2025 9:31 AM EDT) PTT 41.4(H) 25.7 - 36.8 second(s) 03/01/2025 9:59 AM EDT [facility] Comment: Therapeutic range for unfractionated heparin: 50.1 - 98.7 seconds Therapeutic range for direct thrombin inhibitors: Argatroban is 1.5 to 3 times the aPTT baseline. Lepirudin is 1.5 to 2 times the aPTT baseline. The aPTT should not exceed 100 seconds. The dosage of Argatroban should be decreased in patients with hepatic impairment. The dosage of Lepirudin should be decreased in renal insufficiency. Blood VENOUS BLOOD / Unknown Venipuncture / Unknown 03/01/2025 9:31 AM EDT 03/01/2025 9:44 AM EDT Stacia Shrestha MD HEMATOLOGY ORDERABLES Final Resu lt Performing Organization Address [facility] de Phone Number [facility] [address] [place] [address] * (ABNORMAL) PT / INR (03/01/2025 9:31 AM EDT) PT 15.4(H) 10.5 - 13.6 second(s) 03/01/2025 9:59 AM EDT [facility] INR 1.33(H) 0.91 - 1.18 (ratio) 03/01/2025 9:59 AM EDT [facility] Comment: Level of Therapy Indications Target INR Range Standard Dose Treatment and prophylaxis of venous 2.0 - 3.0 thrombosis, pulmonary embolism High Dose High risk patients with mechanical 2.5 - 3.5 heart valves Blood VENOUS BLOOD / Unknown Venipuncture / Unknown 03/01/2025 9:31 AM EDT 03/01/2025 9:44 AM EDT us Stacia Shrestha MD HEMATOLOGY ORDERABLES Final Resu lt Performing Organization Address [facility] Co de Phone Number [facility] [address] [place], [place] [id number] * (ABNORMAL) TROPONIN-T HIGH SENSITIVITY BASELINE W/ REFLEX (03/01/2025 9:31 AM EDT) gy-dHddtknrj-G 36(H) <22 ng/L 03/01/2025 10:18 AM EDT [facility] Blood VENOUS BLOOD / Unknown Venipuncture / Unknown 03/01/2025 9:31 AM EDT 03/01/2025 9:44 AM EDT Narrative [facility] - 03/01/2025 10:18 AM EDT Ingestion of johny doses of biotin (>5 mg/day) taken within 8 hours of drawing blood sample can interfere with this immunoassay test. us Stacia Shrestha MD CHEMISTRY ORDERABLES Final Resul t Performing Organization Address [facility] de Phone Number [facility] [address] [place] [address] * PHOSPHORUS LEVEL (03/01/2025 9:31 AM EDT) Phosphorus 2.5 2.5 - 4.5 mg/dL 03/01/2025 10:18 AM EDT [facility] Blood VENOUS BLOOD / Unknown Venipuncture / Unknown 03/01/2025 9:31 AM EDT 03/01/2025 9:44 AM EDT us Stacia Shrestha MD CHEMISTRY ORDERABLES Final Resul t Performing Organization Address [facility] de Phone Number [facility] [address] [place] [address] * MAGNESIUM LEVEL (03/01/2025 9:31 AM EDT) Magnesium 2.0 1.6 - 2.4 mg/dL 03/01/2025 10:18 AM EDT [facility] Blood VENOUS BLOOD / Unknown Venipuncture / Unknown 03/01/2025 9:31 AM EDT 03/01/2025 9:44 AM EDT Stacia Shrestha MD CHEMISTRY ORDERABLES Final Resul t Performing Organization Address [facility] de Phone Number [facility] [address] [place] [address] * (ABNORMAL) NT PROBNP (03/01/2025 9:31 AM EDT) NT Pro-BNP 4,590(H) <=852 pg/mL 03/01/2025 10:18 AM EDT [facility] Blood VENOUS BLOOD / Unknown Venipuncture / Unknown 03/01/2025 9:31 AM EDT 03/01/2025 9:44 AM EDT Narrative [facility] - 03/01/2025 10:18 AM EDT An NT pro-BNP level less than 300 pg/mL in any patient, regardless of age, effectively rules out acute CHF with a 99% negative predictive value. Ingestion of johny doses of biotin (>5 mg/day) taken within 8 hours of drawing blood sample can interfere with this immunoassay test. Stacia Shrestha MD CHEMISTRY ORDERABLES Final Resul t Performing Organization Address [facility] de Phone Number [facility] [address] [place] [address] * (ABNORMAL) BASIC METABOLIC PANEL (03/01/2025 9:31 AM EDT) Sodium 136 136 - 145 mmol/L 03/01/2025 10:18 AM EDT [facility] Potassium 4.2 3.5 - 5.0 mmol/L 03/01/2025 10:18 AM EDT [facility] Chloride 102 98 - 107 mmol/L 03/01/2025 10:18 AM EDT [facility] Total CO2 23 22 - 29 mmol/L 03/01/2025 10:18 AM EDT [facility] Anion Gap 11 7 - 16 mmol/L 03/01/2025 10:18 AM EDT [facility] Calcium 8.1(L) 8.8 - 10.4 mg/dL 03/01/2025 10:18 AM EDT [facility] Glucose Lvl 81 70 - 99 mg/dL 03/01/2025 10:18 AM EDT [facility] BUN 15 8 - 23 mg/dL 03/01/2025 10:18 AM EDT [facility] Creatinine 0.84 0.67 - 1.30 mg/dL 03/01/2025 10:18 AM EDT [facility] eGFR (CKD-EPIcr 2020) 84 >=60 mL/min/1.7 3 m2 03/01/2025 10:18 AM EDT [facility] Comment:Estimated GFR was ca lculated using the CKD-EPIcr (2020) equation refit without race. The equation is recommended by the [employer] - [place] [employer] Task Force. Blood VENOUS BLOOD / Unknown Venipuncture / Unknown 03/01/2025 9:31 AM EDT 03/01/2025 9:44 AM EDT us Stacia Shrestha MD CHEMISTRY ORDERABLES Final Resul t [facility] [address] [place] [address] * (ABNORMAL) CBC (03/01/2025 9:31 AM EDT) WBC 7.7 3.7 - 10.3 x10(3)/mcL 03/01/2025 9:50 AM EDT [facility] RBC 3.70(L) 4.60 - 6.10 x10(6)/mcL 03/01/2025 9:50 AM EDT [facility] Hgb 11.6(L) 13.7 - 17.5 g/dL 03/01/2025 9:50 AM EDT [facility] Hct 35.5(L) 40.0 - 51.0 % 03/01/2025 9:50 AM EDT [facility] MCV 95.9 80.0 - 100.0 fL 03/01/2025 9:50 AM EDT [facility] MCH 31.4 26.0 - 34.0 pg 03/01/2025 9:50 AM EDT [facility] MCHC 32.7 30.7 - 35.5 g/dL 03/01/2025 9:50 AM EDT [facility] RDW 14.6 <=14.9 % 03/01/2025 9:50 AM EDT [facility] Platelet 252 155 - 369 x10(3)/mcL 03/01/2025 9:50 AM EDT [facility] MPV 9.0 8.8 - 12.5 fL 03/01/2025 9:50 AM EDT [facility] Blood VENOUS BLOOD / Unknown Venipuncture / Unknown 03/01/2025 9:31 AM EDT 03/01/2025 9:44 AM EDT Stacia Shrestha MD HEMATOLOGY ORDERABLES Final Resu lt Performing Organization Address City/[facility]/ZIP Co de Phone Number [facility] [address] [place] [address] * GLUCOSE METER POC (03/01/2025 9:21 AM EDT) [facility] Glucose Meter POC 83 70 - 100 mg/dL 03/01/2025 9:22 AM EDT [facility] Sample Type Capillary 03/01/2025 9:22 AM EDT [facility] Patient Status Non-Critical Patient 03/01/2025 9:22 AM EDT [facility] Blood BLOOD SPECIMEN / Unknown 03/01/2025 9:21 AM EDT 03/01/2025 9:22 AM EDT Sameer Ortega MD POINT OF CARE TEST ORDERABLES Fi nal Result Performing Organization Address City/[facility]/ZIP Co de Phone Number [facility] [address] [place] [address] * XR CHEST AP PORTABLE (03/01/2025 9:20 AM EDT) Anatomical Region Laterality Modality Chest Radiographic Юлия ging 03/01/2025 9:20 AM EDT Impressions 03/01/2025 9:37 AM EDT Increased pulmonary vascularity/edema. Suspected developing infiltrate or atelectasis in the left lower lung. Possible trace left pleural fluid. - Note: Radiology results need to be interpreted within a comprehensive clinical context. If you have questions about the radiology report, please contact the office of the ordering clinician. Narrative 03/01/2025 9:37 AM EDT XR CHEST AP PORTABLE, 03/01/2025 9:20 AM CLINICAL HISTORY: -chest pain COMPARISON: 02/26/2025 PROCEDURE COMMENTS: AP portable technique. FINDINGS: Support devices: Right PICC is well-positioned. Stable heart size with increased pulmonary vascularity/edema.. Suspected developing infiltrate or atelectasis in the left lower lung. Possible trace pleural fluid on the left.. No visible pneumothorax. Procedure Note Aris Hickey MD - 03/01/2025 XR CHEST AP PORTABLE, 03/01/2025 9:20 AM CLINICAL HISTORY: -chest pain COMPARISON: 02/26/2025 PROCEDURE COMMENTS: AP portable technique. FINDINGS: Support devices: Right PICC is well-positioned. Stable heart size with increased pulmonary vascularity/edema.. Suspected developing infiltrate or atelectasis in the left lower lung. Possibletrace pleural fluid on the left.. No visible pneumothorax. IMPRESSION: Increased pulmonary vascularity/edema. Suspected developing infiltrateor atelectasis in the left lower lung. Possible trace left pleural fluid. - Note: Radiology results need to be interpreted within a comprehensiveclinical context. If you have questions about the radiology report, please contactthe office of the ordering clinician. us Stacia Shrestha MD IMG DIAGNOSTIC IMAGING ORDERABLE S Final Result * EK EKG 12 LEAD (03/01/2025 9:16 AM EDT) Anatomical Region Laterality Modality Electrocardiogra phy 03/01/2025 9:10 AM EDT Impressions 03/01/2025 10:17 AM EDT [facility] Test Date: 2025-03-01 Pat Name: STEVE KING Department: DEPID Room: W370 Gender: Male Nitrating Acid Mixer: : 1935 Requested By: STACIA Parson Order Number: [id number] Reading : David Mar Measurements Intervals Davin Rate: 75 P: 70 WI: 263 QRS: -29 QRSD: 138 T: 128 QT: 440 QTc: 491 Interpretive Statements SINUS RHYTHM WITH FIRST DEGREE AV BLOCK WITH OCCASIONAL SUPRAVENTRICULAR PREMATURE COMPLEXES BORDERLINE LEFT AXIS DEVIATION LBBB Electronically Signed On 03-01-2025 10:17:38 EDT by David Mar Narrative Procedure Note David Mar MD - 03/01/[address] [facility] Test Date: 2025-03-01 Pat Name: STEVE KING Department: DEPID Room: [facility] Gender: Male Nitrating Acid Mixer: : 1935 Requested By: STACIA Parson Order Number: [id number] Reading MD: David Mar Measurements Intervals Davin Rate: 75 P: 70 WI: 263 QRS: -29 QRSD: 138 T: 128 QT: 440 QTc: 491 Interpretive Statements SINUS RHYTHM WITH FIRST DEGREE AV BLOCK WITH OCCASIONAL SUPRAVENTRICULAR PREMATURE COMPLEXES BORDERLINE LEFT AXIS DEVIATION LBBB Electronically Signed On 03-01-2025 10:17:38 EDT by David Mar us Stacia Shrestha MD IMG ECG ORDERABLES Final Result * GLUCOSE METER POC (03/01/2025 8:20 AM EDT) [facility] Glucose Meter POC 85 70 - 100 mg/dL 03/01/2025 8:21 AM EDT [facility] Sample Type Capillary 03/01/2025 8:21 AM EDT [facility] Patient Status Non-Critical Patient 03/01/2025 8:21 AM EDT [facility] Blood BLOOD SPECIMEN / Unknown 03/01/2025 8:20 AM EDT 03/01/2025 8:21 AM EDT Sameer Ortega MD POINT OF CARE TEST ORDERABLES Fi nal Result Performing Organization Address City/[facility] Co de Phone Number [facility] [address] [place] [address] * (ABNORMAL) GLUCOSE METER POC (02/28/2025 9:12 PM EDT) Glucose Meter POC 180(H) 70 - 100 mg/dL 02/28/2025 9:26 PM EDT [facility] Sample Type Capillary 02/28/2025 9:26 PM EDT [facility] Patient Status Non-Critical Patient 02/28/2025 9:26 PM EDT [facility] Blood BLOOD SPECIMEN / Unknown 02/28/2025 9:12 PM EDT 02/28/2025 9:26 PM EDT us Sameer Ortega MD POINT OF CARE TEST ORDERABLES Fi nal Result Performing Organization Address [facility] Co de Phone Number [facility] [address] [place] [address] * (ABNORMAL) GLUCOSE METER POC (02/28/2025 6:07 PM EDT) Glucose Meter POC 185(H) 70 - 100 mg/dL 02/28/2025 6:09 PM EDT [facility] Sample Type Capillary 02/28/2025 6:09 PM EDT [facility] Patient Status Non-Critical Patient 02/28/2025 6:09 PM EDT [facility] Blood BLOOD SPECIMEN / Unknown 02/28/2025 6:07 PM EDT 02/28/2025 6:09 PM EDT us Sameer Ortega MD POINT OF CARE TEST ORDERABLES Fi nal Result Performing Organization Address [facility] Co de Phone Number [facility] [address] [place] [address] * (ABNORMAL) HEMOGLOBIN AND HEMATOCRIT (02/28/2025 5:00 PM EDT) Hgb 9.7(L) 13.7 - 17.5 g/dL 02/28/2025 5:08 PM EDT [facility] Hct 30.5(L) 40.0 - 51.0 % 02/28/2025 5:08 PM EDT [facility] Blood VENOUS BLOOD / Unknown Venipuncture / Unknown 02/28/2025 5:00 PM EDT 02/28/2025 5:06 PM EDT us Ozzie Fernandez MD HEMATOLOGY ORDERABLES Final Resu lt Performing Organization Address City/[facility]/ZIP Co de Phone Number [facility] [address] [place] [address] * (ABNORMAL) GLUCOSE METER POC (02/28/2025 1:08 PM EDT) Glucose Meter POC 109(H) 70 - 100 mg/dL 02/28/2025 1:10 PM EDT [facility] Sample Type Capillary 02/28/2025 1:10 PM EDT [facility] Patient Status Non-Critical Patient 02/28/2025 1:10 PM EDT [facility] Blood BLOOD SPECIMEN / Unknown 02/28/2025 1:08 PM EDT 02/28/2025 1:10 PM EDT us Sameer Ortega MD POINT OF CARE TEST ORDERABLES Fi nal Result Performing Organization Address [facility] Co de Phone Number [facility] [address] [place] [address] * GLUCOSE METER POC (02/28/2025 10:47 AM EDT) Glucose Meter POC 99 70 - 100 mg/dL 02/28/2025 10:49 AM EDT [facility] Sample Type Capillary 02/28/2025 10:49 AM EDT [facility] Patient Status Non-Critical Patient 02/28/2025 10:49 AM EDT [facility] Blood BLOOD SPECIMEN / Unknown 02/28/2025 10:47 AM EDT 02/28/2025 10:49 AM EDT Sameer Ortega MD POINT OF CARE TEST ORDERABLES Fi nal Result Performing Organization Address [facility] de Phone Number [facility] [address] [place], [place] [id number] * (ABNORMAL) HEMOGLOBIN AND HEMATOCRIT (02/28/2025 5:16 AM EDT) Hgb 9.1(L) 13.7 - 17.5 g/dL 02/28/2025 5:29 AM EDT [facility] Hct 27.9(L) 40.0 - 51.0 % 02/28/2025 5:29 AM EDT [facility] Blood VENOUS STRUCTURE / Unknown Venipuncture / Unknown 02/28/2025 5:16 AM EDT 02/28/2025 5:27 AM EDT Ozzie Fernandez MD HEMATOLOGY ORDERABLES Final Resu lt Performing Organization Address [facility] de Phone Number [facility] [address] [place] [address] * (ABNORMAL) C-REACTIVE PROTEIN (02/28/2025 5:16 AM EDT) [facility] CRP 42.59(H) <=5.00 mg/L 02/28/2025 9:31 AM EDT [facility] Blood VENOUS STRUCTURE / Unknown Venipuncture / Unknown 02/28/2025 5:16 AM EDT 02/28/2025 5:27 AM EDT Mason Jacome DO CHEMISTRY ORDERABLES Final Res ult Performing Organization Address [facility] de Phone Number [facility] [address] [place] [address] , [place] [address] * (ABNORMAL) GLUCOSE METER POC (02/27/2025 9:12 PM EDT) [facility] Glucose Meter POC 196(H) 70 - 100 mg/dL 02/27/2025 9:14 PM EDT [facility] Sample Type Capillary 02/27/2025 9:14 PM EDT [facility] Patient Status Non-Critical Patient 02/27/2025 9:14 PM EDT [facility] Blood BLOOD SPECIMEN / Unknown 02/27/2025 9:12 PM EDT 02/27/2025 9:14 PM EDT Sameer Ortega MD POINT OF CARE TEST ORDERABLES Fi nal Result Performing Organization Address [facility] de Phone Number [facility] [address] [place] [address] * (ABNORMAL) HEMOGLOBIN AND HEMATOCRIT (02/27/2025 5:21 PM EDT) Hgb 9.7(L) 13.7 - 17.5 g/dL 02/27/2025 5:30 PM EDT [facility] Hct 29.3(L) 40.0 - 51.0 % 02/27/2025 5:30 PM EDT [facility] Blood VENOUS BLOOD / Unknown Venipuncture / Unknown 02/27/2025 5:21 PM EDT 02/27/2025 5:28 PM EDT Ozzie Fernandez MD HEMATOLOGY ORDERABLES Final Resu lt Performing Organization Address [facility] de Phone Number [facility] [address] [place] [address] * (ABNORMAL) GLUCOSE METER POC (02/27/2025 4:52 PM EDT) Glucose Meter POC 165(H) 70 - 100 mg/dL 02/27/2025 4:53 PM EDT [facility] Sample Type Capillary 02/27/2025 4:53 PM EDT [facility] Patient Status Non-Critical Patient 02/27/2025 4:53 PM EDT [facility] Blood BLOOD SPECIMEN / Unknown 02/27/2025 4:52 PM EDT 02/27/2025 4:53 PM EDT us Sameer Ortega MD POINT OF CARE TEST ORDERABLES Fi nal Result Performing Organization Address [facility] de Phone Number [facility] [address] [place] [address] * (ABNORMAL) GLUCOSE METER POC (02/27/2025 11:27 AM EDT) [facility] Glucose Meter POC 130(H) 70 - 100 mg/dL 02/27/2025 11:28 AM EDT [facility] Sample Type Capillary 02/27/2025 11:28 AM EDT [facility] Patient Status Non-Critical Patient 02/27/2025 11:28 AM EDT [facility] Blood BLOOD SPECIMEN / Unknown 02/27/2025 11:27 AM EDT 02/27/2025 11:28 AM EDT us Sameer Ortega MD POINT OF CARE TEST ORDERABLES Fi nal Result Performing Organization Address [facility] de Phone Number [facility] [address] [place] [address] * (ABNORMAL) CBC WITH DIFF (02/27/2025 9:02 AM EDT) [facility] WBC 7.5 3.7 - 10.3 x10(3)/mcL 02/27/2025 9:07 AM EDT [facility] RBC 3.17(L) 4.60 - 6.10 x10(6)/mcL 02/27/2025 9:07 AM EDT [facility] Hgb 9.9(L) 13.7 - 17.5 g/dL 02/27/2025 9:07 AM EDT [facility] Hct 30.3(L) 40.0 - 51.0 % 02/27/2025 9:07 AM EDT [facility] MCV 95.6 80.0 - 100.0 fL 02/27/2025 9:07 AM EDT [facility] MCH 31.2 26.0 - 34.0 pg 02/27/2025 9:07 AM EDT [facility] MCHC 32.7 30.7 - 35.5 g/dL 02/27/2025 9:07 AM EDT [facility] RDW 14.6 <=14.9 % 02/27/2025 9:07 AM EDT [facility] Platelet 266 155 - 369 x10(3)/[facility] 02/27/2025 9:07 AM EDT [facility] MPV 8.5(L) 8.8 - 12.5 fL 02/27/2025 9:07 AM EDT [facility] Neut Percent 67.8 % 02/27/2025 9:07 AM EDT [facility] Comment:Neutrophils equals s egs plus bands Imm Gran% 0.5 % 02/27/2025 9:07 AM EDT [facility] Comment:Automated count of m etamyelocytes, myelocytes and promyelocytes. Lymph Percent 19.5 % 02/27/2025 9:07 AM EDT [facility] [place] Percent 8.3 % 02/27/2025 9:07 AM EDT [facility] Eos Percent 3.6 % 02/27/2025 9:07 AM EDT [facility] Baso Percent 0.3 % 02/27/2025 9:07 AM EDT [facility] Neut # 5.1 1.6 - 6.1 x10(3)/[facility] 02/27/2025 9:07 AM EDT [facility] Comment:Neutrophils equals s egs plus bands IMMGRAN# 0.0 0.0 - 0.1 x10(3)/[facility] 02/27/2025 9:07 AM EDT [facility] Comment:Automated count of m etamyelocytes, myelocytes and promyelocytes. An absolute IG <0.1 is reported as 0.0. Lymph # 1.5 1.2 - 3.9 x10(3)/mcL 02/27/2025 9:07 AM EDT [facility] [place] # 0.6 0.3 - 0.9 x10(3)/[facility] 02/27/2025 9:07 AM EDT [facility] Eos# 0.3 0.0 - 0.5 x10(3)/[facility] 02/27/2025 9:07 AM EDT [facility] Baso # 0.0 0.0 - 0.1 x10(3)/mcL 02/27/2025 9:07 AM EDT [facility] Blood VENOUS BLOOD / Unknown Venipuncture / Unknown 02/27/2025 9:02 AM EDT 02/27/2025 9:04 AM EDT us Ozzie Fernandez MD HEMATOLOGY ORDERABLES Final Resu lt [facility] [address] [place] [address] * (ABNORMAL) BASIC METABOLIC PANEL (02/27/2025 9:02 AM EDT) Sodium 137 136 - 145 mmol/L 02/27/2025 9:24 AM EDT [facility] Potassium 3.9 3.5 - 5.0 mmol/L 02/27/2025 9:24 AM EDT [facility] Chloride 100 98 - 107 mmol/L 02/27/2025 9:24 AM EDT [facility] Total CO2 26 22 - 29 mmol/L 02/27/2025 9:24 AM EDT [facility] Anion Gap 11 7 - 16 mmol/L 02/27/2025 9:24 AM EDT [facility] Calcium 8.6(L) 8.8 - 10.4 mg/dL 02/27/2025 9:24 AM EDT [facility] Glucose Lvl 145(H) 70 - 99 mg/dL 02/27/2025 9:24 AM EDT [facility] BUN 22 8 - 23 mg/dL 02/27/2025 9:24 AM EDT [facility] Creatinine 0.90 0.67 - 1.30 mg/dL 02/27/2025 9:24 AM EDT [facility] eGFR (CKD-EPIcr 2020) 83 >=60 mL/min/1.7 3 m2 02/27/2025 9:24 AM EDT [facility] Comment:Estimated GFR was ca lculated using the CKD-EPIcr (2020) equation refit without race. The equation is recommended by the [employer] - [employer] [employer] Task Force. Blood VENOUS BLOOD / Unknown Venipuncture / Unknown 02/27/2025 9:02 AM EDT 02/27/2025 9:04 AM EDT Ozzie Fernandez MD CHEMISTRY ORDERABLES Final Resul t Performing Organization Address [facility] de Phone Number [facility] [address] [place] [address] * (ABNORMAL) GLUCOSE METER POC (02/27/2025 7:32 AM EDT) Glucose Meter POC 168(H) 70 - 100 mg/dL 02/27/2025 7:34 AM EDT [facility] Sample Type Capillary 02/27/2025 7:34 AM EDT [facility] Patient Status Non-Critical Patient 02/27/2025 7:34 AM EDT [facility] Blood BLOOD SPECIMEN / Unknown 02/27/2025 7:32 AM EDT 02/27/2025 7:34 AM EDT Sameer Ortega MD POINT OF CARE TEST ORDERABLES Fi nal Result Performing Organization Address [facility] de Phone Number [facility] [address] [place] [address] * (ABNORMAL) GLUCOSE METER POC (02/26/2025 9:30 PM EDT) Glucose Meter POC 169(H) 70 - 100 mg/dL 02/26/2025 9:31 PM EDT [facility] Sample Type Capillary 02/26/2025 9:31 PM EDT [facility] Patient Status Non-Critical Patient 02/26/2025 9:31 PM EDT [facility] Blood BLOOD SPECIMEN / Unknown 02/26/2025 9:30 PM EDT 02/26/2025 9:31 PM EDT Sameer Ortega MD POINT OF CARE TEST ORDERABLES Fi nal Result Performing Organization Address [facility] Co de Phone Number [facility] [address] [place] [address] * (ABNORMAL) GLUCOSE METER POC (02/26/2025 4:37 PM EDT) Glucose Meter POC 158(H) 70 - 100 mg/dL 02/26/2025 4:39 PM EDT [facility] Sample Type Capillary 02/26/2025 4:39 PM EDT [facility] Patient Status Non-Critical Patient 02/26/2025 4:39 PM EDT [facility] Blood BLOOD SPECIMEN / Unknown 02/26/2025 4:37 PM EDT 02/26/2025 4:39 PM EDT Sameer Ortega MD POINT OF CARE TEST ORDERABLES Fi nal Result Performing Organization Address [facility] de Phone Number [facility] [address] [place] [address] * LACTIC ACID (02/26/2025 4:30 PM EDT) [facility] Lactic Acid 1.5 0.5 - 1.9 mmol/L 02/26/2025 5:00 PM EDT [facility] Blood VENOUS BLOOD / Unknown Venipuncture / Unknown 02/26/2025 4:30 PM EDT 02/26/2025 4:40 PM EDT Ozzie Fernandez MD CHEMISTRY ORDERABLES Final Resul t Performing Organization Address [facility] Co de Phone Number [facility] [address] [place] [address] * (ABNORMAL) C-REACTIVE PROTEIN (02/26/2025 4:30 PM EDT) CRP 71.36(H) <=5.00 mg/L 02/26/2025 7:37 PM EDT [facility] Blood VENOUS BLOOD / Unknown Venipuncture / Unknown 02/26/2025 4:30 PM EDT 02/26/2025 4:40 PM EDT Ozzie Fernandez MD CHEMISTRY ORDERABLES Final Resul t Performing Organization Address City/[facility]/ZIP Co de Phone Number [facility] [employer] [facility] [address] [facility], [place] [address] * PROCALCITONIN (02/26/2025 4:30 PM EDT) Pathologist [facility] Procalcitonin 0.08 <=0.49 ng/mL 02/26/2025 5:08 PM EDT [facility] Blood VENOUS BLOOD / Unknown Venipuncture / Unknown 02/26/2025 4:30 PM EDT 02/26/2025 4:40 PM EDT Narrative [facility] - 02/26/2025 5:08 PM EDT Procalcitonin <0.50 ng/mL: Procalcitonin levels below 0.50 ng/mL on the first day of ICU admission represent a low risk for progression to severe sepsis and/or septic shock Procalcitonin >=0.50 ng/mL and <=2.00 ng/mL: If the procalcitonin measurement is performed shortly after the systemic infection process has started (usually less than 6 hours), this value may still be low. As various non-infectious conditions are known to induce procalcitonin as well, procalcitonin levels between 0.50 ng/mL and 2.00 ng/mL should be reviewed carefully to take into account the specific clinical background and condition(s) of the patient. Procalcitonin >2.00 ng/mL: Procalcitonin levels above 2.00 ng/mL on the first day of ICU admission represent a high risk for progression to severe sepsis and/or septic shock. Ozzie Fernandez MD CHEMISTRY ORDERABLES Final Resul t Performing Organization Address [facility] Co de Phone Number [facility] [address] [place] [address] * (ABNORMAL) GLUCOSE METER POC (02/26/2025 12:16 PM EDT) Glucose Meter POC 136(H) 70 - 100 mg/dL 02/26/2025 12:17 PM EDT [facility] Sample Type Capillary 02/26/2025 12:17 PM EDT [facility] Patient Status Non-Critical Patient 02/26/2025 12:17 PM EDT [facility] Blood BLOOD SPECIMEN / Unknown 02/26/2025 12:16 PM EDT 02/26/2025 12:17 PM EDT Sameer Ortega MD POINT OF CARE TEST ORDERABLES Fi nal Result [facility] [address] [place] [address] * XR CHEST AP PORTABLE (02/26/2025 11:22 AM EDT) Anatomical Region Laterality Modality Chest Radiographic Юлия ging 02/26/2025 11:2 2 AM EDT Impressions 02/26/2025 11:24 AM EDT Uncomplicated appearing right-sided PICC line. - Note: Radiology results need to be interpreted within a comprehensive clinical context. If you have questions about the radiology report, please contact the office of the ordering clinician. Narrative 02/26/2025 11:24 AM EDT XR CHEST AP PORTABLE, 02/26/2025 11:22 AM CLINICAL HISTORY: -PICC line placement and location COMPARISON: None. PROCEDURE COMMENTS: AP portable technique. FINDINGS: Support devices: Right-sided PICC line is present, projecting to the proximal SVC. No pneumothorax. Mild atelectasis at the right base. Cardiomegaly is present. Procedure Note Rigoberto Zuñiga MD - 02/26/2025 XR CHEST AP PORTABLE, 02/26/2025 11:22 AM CLINICAL HISTORY: -PICC line placement and location COMPARISON: None. PROCEDURE COMMENTS: AP portable technique. FINDINGS: Support devices: Right-sided PICC line is present, projecting to theproximal SVC. No pneumothorax. Mild atelectasis at the right base. Cardiomegaly ispresent. IMPRESSION: Uncomplicated appearing right-sided PICC line. - Note: Radiology results need to be interpreted within a comprehensiveclinical context. If you have questions about the radiology report, please contactthe office of the ordering clinician. Sameer Ortega MD IMG DIAGNOSTIC IMAGING ORDERABLE S Final Result * BEDSIDE PICC INSERTION (PICC TEAM RN) (02/26/2025 10:49 AM EDT) Narrative [facility] - 02/26/2025 10:49 AM EDT Jocelynn Hodges RN 02/26/2025 11:08 AM Procedure was performed by Sulma Andrew RN VAT. Patient was informed of risks and benefit of procedure and verbal consent was given. Ultrasound interrogation performed of the right basilic vein. It is shown to be patent and compressible. This was documented with a permanent image. The catheter was placed using all elements of maximal sterile barrier technique as well as all elements of sterile ultrasound technique. Following sterile skin preparation and local anesthesia under ultrasound guidance the vein was punctured. This allowed guide wire and introducer sheath insertion. Guidewire was removed and verified by second individual. Through the introducer sheath a PICC was inserted. Unable to get tip confirmation with sammie due to patient history of afib. CXR ordered for tip confirmation prior to releasing line. Catheter was cut to _43___ cm with internal measurement at _43__ cm. Catheter aspirated and flushed freely. The catheter was secured to the skin surface. Sterile CHG dressing was applied. Patient tolerated the procedure well. Katie Viera APRN PROCEDURE/MINOR SURGICAL ORDERABLES Final Result [facility] [address] [place] [address] * (ABNORMAL) GLUCOSE METER POC (02/26/2025 8:49 AM EDT) [facility] Glucose Meter POC 121(H) 70 - 100 mg/dL 02/26/2025 8:51 AM EDT [facility] Sample Type Capillary 02/26/2025 8:51 AM EDT [facility] Patient Status Non-Critical Patient 02/26/2025 8:51 AM EDT [facility] Blood BLOOD SPECIMEN / Unknown 02/26/2025 8:49 AM EDT 02/26/2025 8:51 AM EDT us Sameer Ortega MD POINT OF CARE TEST ORDERABLES Fi nal Result [facility] [address] [place] [address] * (ABNORMAL) CBC WITH DIFF (02/26/2025 7:45 AM EDT) WBC 6.3 3.7 - 10.3 x10(3)/mcL 02/26/2025 9:13 AM EDT [facility] RBC 3.30(L) 4.60 - 6.10 x10(6)/mcL 02/26/2025 9:13 AM EDT [facility] Hgb 10.4(L) 13.7 - 17.5 g/dL 02/26/2025 9:13 AM EDT [facility] Hct 31.7(L) 40.0 - 51.0 % 02/26/2025 9:13 AM EDT [facility] MCV 96.1 80.0 - 100.0 fL 02/26/2025 9:13 AM EDT [facility] MCH 31.5 26.0 - 34.0 pg 02/26/2025 9:13 AM EDT [facility] MCHC 32.8 30.7 - 35.5 g/dL 02/26/2025 9:13 AM EDT [facility] RDW 14.5 <=14.9 % 02/26/2025 9:13 AM EDT [facility] Platelet 313 155 - 369 x10(3)/mcL 02/26/2025 9:13 AM EDT [facility] MPV 10.1 8.8 - 12.5 fL 02/26/2025 9:13 AM EDT [facility] Neut Percent 63.9 % 02/26/2025 9:13 AM EDT [facility] Comment:Neutrophils equals s egs plus bands Imm Gran% 0.6 % 02/26/2025 9:13 AM EDT [facility] Comment:Automated count of m etamyelocytes, myelocytes and promyelocytes. Lymph Percent 21.1 % 02/26/2025 9:13 AM EDT [facility] [place] Percent 10.1 % 02/26/2025 9:13 AM EDT [facility] Eos Percent 3.8 % 02/26/2025 9:13 AM EDT [facility] Baso Percent 0.5 % 02/26/2025 9:13 AM EDT [facility] Neut # 4.0 1.6 - 6.1 x10(3)/[facility] 02/26/2025 9:13 AM EDT [facility] Comment:Neutrophils equals s egs plus bands IMMGRAN# 0.0 0.0 - 0.1 x10(3)/[facility] 02/26/2025 9:13 AM EDT [facility] Comment:Automated count of m etamyelocytes, myelocytes and promyelocytes. An absolute IG <0.1 is reported as 0.0. Lymph # 1.3 1.2 - 3.9 x10(3)/[facility] 02/26/2025 9:13 AM EDT [facility] [place] # 0.6 0.3 - 0.9 x10(3)/[facility] 02/26/2025 9:13 AM EDT [facility] Eos# 0.2 0.0 - 0.5 x10(3)/[facility] 02/26/2025 9:13 AM EDT [facility] Baso # 0.0 0.0 - 0.1 x10(3)/[facility] 02/26/2025 9:13 AM EDT [facility] Blood VENOUS BLOOD / Unknown Venipuncture / Unknown 02/26/2025 7:45 AM EDT 02/26/2025 7:57 AM EDT us Ozzie Fernandez MD HEMATOLOGY ORDERABLES Final Resu lt [facility] [address] [place] [address] * (ABNORMAL) BASIC METABOLIC PANEL (02/26/2025 7:45 AM EDT) [facility] Sodium 138 136 - 145 mmol/L 02/26/2025 2:25 PM EDT [facility] Potassium 4.3 3.5 - 5.0 mmol/L 02/26/2025 2:25 PM EDT [facility] Chloride 99 98 - 107 mmol/L 02/26/2025 2:25 PM EDT [facility] Total CO2 26 22 - 29 mmol/L 02/26/2025 2:25 PM EDT [facility] Anion Gap 13 7 - 16 mmol/L 02/26/2025 2:25 PM EDT [facility] Calcium 8.9 8.8 - 10.4 mg/dL 02/26/2025 2:25 PM EDT [facility] Glucose Lvl 127(H) 70 - 99 mg/dL 02/26/2025 2:25 PM EDT [facility] BUN 24(H) 8 - 23 mg/dL 02/26/2025 2:25 PM EDT [facility] Creatinine 0.93 0.67 - 1.30 mg/dL 02/26/2025 2:25 PM EDT [facility] eGFR (CKD-EPIcr 2020) 79 >=60 mL/min/1.7 3 m2 02/26/2025 2:25 PM EDT [facility] Comment:Estimated GFR was ca lculated using the CKD-EPIcr (2020) equation refit without race. The equation is recommended by the [employer] - [place] [employer] Task Force. Blood VENOUS BLOOD / Unknown Venipuncture / Unknown 02/26/2025 7:45 AM EDT 02/26/2025 7:56 AM EDT us Ozzie Fernandez MD CHEMISTRY ORDERABLES Final Resul t [facility] [facility] , [address] [place] [id number] * EXTRA LAVENDER (02/26/2025 7:45 AM EDT) Blood VENOUS BLOOD / Unknown Venipuncture / Unknown 02/26/2025 7:45 AM EDT 02/26/2025 7:57 AM EDT Sameer Ortega MD HEMATOLOGY ORDERABLES Final Resu lt [facility] [address] [place] [address] * (ABNORMAL) C-REACTIVE PROTEIN (02/26/2025 7:45 AM EDT) CRP 75.55(H) <=5.00 mg/L 02/26/2025 9:59 AM EDT [facility] Blood VENOUS BLOOD / Unknown Venipuncture / Unknown 02/26/2025 7:45 AM EDT 02/26/2025 7:56 AM EDT Mason Jacome DO CHEMISTRY ORDERABLES Final Res ult Performing Organization Address City/[facility]/ZIP Co de Phone Number [facility] [address] [place] [address], [place] [address] * (ABNORMAL) GLUCOSE METER POC (02/25/2025 9:24 PM EDT) Glucose Meter POC 236(H) 70 - 100 mg/dL 02/25/2025 9:26 PM EDT [facility] Sample Type Capillary 02/25/2025 9:26 PM EDT [facility] Patient Status Non-Critical Patient 02/25/2025 9:26 PM EDT [facility] Blood BLOOD SPECIMEN / Unknown 02/25/2025 9:24 PM EDT 02/25/2025 9:26 PM EDT Sameer Ortega MD POINT OF CARE TEST ORDERABLES Fi nal Result [facility] [address] [place] [address] * (ABNORMAL) GLUCOSE METER POC (02/25/2025 5:45 PM EDT) Glucose Meter POC 142(H) 70 - 100 mg/dL 02/25/2025 5:46 PM EDT [facility] Sample Type Capillary 02/25/2025 5:46 PM EDT [facility] Patient Status Non-Critical Patient 02/25/2025 5:46 PM EDT [facility] Blood BLOOD SPECIMEN / Unknown 02/25/2025 5:45 PM EDT 02/25/2025 5:46 PM EDT us Sameer Ortega MD POINT OF CARE TEST ORDERABLES Fi nal Result Performing Organization Address [facility] Co de Phone Number [facility] [address] [place] [address] * GLUCOSE METER POC (02/25/2025 12:06 PM EDT) Glucose Meter POC 97 70 - 100 mg/dL 02/25/2025 12:07 PM EDT [facility] Sample Type Capillary 02/25/2025 12:07 PM EDT [facility] Patient Status Non-Critical Patient 02/25/2025 12:07 PM EDT [facility] Blood BLOOD SPECIMEN / Unknown 02/25/2025 12:06 PM EDT 02/25/2025 12:07 PM EDT us Sameer Ortega MD POINT OF CARE TEST ORDERABLES Fi nal Result Performing Organization Address [facility] de Phone Number [facility] [address] [place] [address] * (ABNORMAL) GLUCOSE METER POC (02/25/2025 11:55 AM EDT) Glucose Meter POC 101(H) 70 - 100 mg/dL 02/25/2025 11:56 AM EDT [facility] Sample Type Capillary 02/25/2025 11:56 AM EDT [facility] Patient Status Non-Critical Patient 02/25/2025 11:56 AM EDT [facility] Blood BLOOD SPECIMEN / Unknown 02/25/2025 11:55 AM EDT 02/25/2025 11:56 AM EDT us Sameer Ortega MD POINT OF CARE TEST ORDERABLES Fi nal Result Performing Organization Address [facility] de Phone Number [facility] [address] [place] [address] * (ABNORMAL) GLUCOSE METER POC (02/25/2025 7:28 AM EDT) Glucose Meter POC 165(H) 70 - 100 mg/dL 02/25/2025 7:30 AM EDT [facility] Sample Type Capillary 02/25/2025 7:30 AM EDT [facility] Patient Status Non-Critical Patient 02/25/2025 7:30 AM EDT [facility] Blood BLOOD SPECIMEN / Unknown 02/25/2025 7:28 AM EDT 02/25/2025 7:30 AM EDT Sameer Ortega MD POINT OF CARE TEST ORDERABLES Fi nal Result Performing Organization Address [facility] de Phone Number [facility] [address] [place] [address] * (ABNORMAL) HEMOGLOBIN AND HEMATOCRIT (02/25/2025 6:04 AM EDT) Hgb 9.8(L) 13.7 - 17.5 g/dL 02/25/2025 6:58 AM EDT [facility] Hct 29.8(L) 40.0 - 51.0 % 02/25/2025 6:58 AM EDT [facility] Blood VENOUS BLOOD / Unknown Venipuncture / Unknown 02/25/2025 6:04 AM EDT 02/25/2025 6:54 AM EDT Mason Jacome DO HEMATOLOGY ORDERABLES Final Re sult Performing Organization Address [facility] Co de Phone Number [facility] [address] [place] [address] * (ABNORMAL) BASIC METABOLIC PANEL (02/25/2025 6:04 AM EDT) Sodium 133(L) 136 - 145 mmol/L 02/25/2025 7:15 AM EDT [facility] Potassium 4.5 3.5 - 5.0 mmol/L 02/25/2025 7:15 AM EDT [facility] Chloride 98 98 - 107 mmol/L 02/25/2025 7:15 AM EDT [facility] Total CO2 25 22 - 29 mmol/L 02/25/2025 7:15 AM EDT [facility] Anion Gap 10 7 - 16 mmol/L 02/25/2025 7:15 AM EDT [facility] Calcium 8.6(L) 8.8 - 10.4 mg/dL 02/25/2025 7:15 AM EDT [facility] Glucose Lvl 191(H) 70 - 99 mg/dL 02/25/2025 7:15 AM EDT [facility] BUN 21 8 - 23 mg/dL 02/25/2025 7:15 AM EDT [facility] Creatinine 0.92 0.67 - 1.30 mg/dL 02/25/2025 7:15 AM EDT [facility] eGFR (CKD-EPIcr 2020) 81 >=60 mL/min/1.7 3 m2 02/25/2025 7:15 AM EDT [facility] Comment:Estimated GFR was ca lculated using the CKD-EPIcr (2020) equation refit without race. The equation is recommended by the [employer] - [place] [employer] Neph[employer] Task Force. Blood VENOUS BLOOD / Unknown Venipuncture / Unknown 02/25/2025 6:04 AM EDT 02/25/2025 6:54 AM EDT us Berenice Dallas DO CHEMISTRY ORDERABLES Final Result [facility] [address] [place] [address] * (ABNORMAL) GLUCOSE METER POC (02/24/2025 10:11 PM EDT) [facility] Glucose Meter POC 225(H) 70 - 100 mg/dL 02/24/2025 10:12 PM EDT [facility] Sample Type Capillary 02/24/2025 10:12 PM EDT [facility] Patient Status Non-Critical Patient 02/24/2025 10:12 PM EDT [facility] Blood BLOOD SPECIMEN / Unknown 02/24/2025 10:11 PM EDT 02/24/2025 10:12 PM EDT Sameer Ortega MD POINT OF CARE TEST ORDERABLES Fi nal Result Performing Organization Address [facility] de Phone Number [facility] [address] [place] [address] * (ABNORMAL) GLUCOSE METER POC (02/24/2025 5:27 PM EDT) Glucose Meter POC 144(H) 70 - 100 mg/dL 02/24/2025 5:28 PM EDT [facility] Sample Type Capillary 02/24/2025 5:28 PM EDT [facility] Patient Status Non-Critical Patient 02/24/2025 5:28 PM EDT [facility] Blood BLOOD SPECIMEN / Unknown 02/24/2025 5:27 PM EDT 02/24/2025 5:28 PM EDT us Sameer Ortega MD POINT OF CARE TEST ORDERABLES Fi nal Result Performing Organization Address [facility] de Phone Number [facility] [address] [place] [address] * (ABNORMAL) GLUCOSE METER POC (02/24/2025 12:35 PM EDT) Glucose Meter POC 148(H) 70 - 100 mg/dL 02/24/2025 12:36 PM EDT [facility] Sample Type Capillary 02/24/2025 12:36 PM EDT [facility] Patient Status Non-Critical Patient 02/24/2025 12:36 PM EDT [facility] Blood BLOOD SPECIMEN / Unknown 02/24/2025 12:35 PM EDT 02/24/2025 12:36 PM EDT Sameer Ortega MD POINT OF CARE TEST ORDERABLES Fi nal Result Performing Organization Address [facility] de Phone Number [facility] [address] [place] [address] * (ABNORMAL) GLUCOSE METER POC (02/24/2025 8:14 AM EDT) Glucose Meter POC 173(H) 70 - 100 mg/dL 02/24/2025 8:16 AM EDT [facility] Sample Type Capillary 02/24/2025 8:16 AM EDT [facility] Patient Status Non-Critical Patient 02/24/2025 8:16 AM EDT [facility] Blood BLOOD SPECIMEN / Unknown 02/24/2025 8:14 AM EDT 02/24/2025 8:16 AM EDT Sameer Ortega MD POINT OF CARE TEST ORDERABLES Fi nal Result Performing Organization Address [facility] de Phone Number [facility] [address] [place] [address] * (ABNORMAL) HEMOGLOBIN AND HEMATOCRIT (02/24/2025 5:13 AM EDT) Hgb 9.6(L) 13.7 - 17.5 g/dL 02/24/2025 5:43 AM EDT [facility] Hct 29.7(L) 40.0 - 51.0 % 02/24/2025 5:43 AM EDT [facility] Blood VENOUS BLOOD / Unknown Venipuncture / Unknown 02/24/2025 5:13 AM EDT 02/24/2025 5:41 AM EDT Mason Jacome DO HEMATOLOGY ORDERABLES Final Re sult Performing Organization Address [facility] Co de Phone Number [facility] [address] [place] [address] * (ABNORMAL) BASIC METABOLIC PANEL (02/24/2025 5:13 AM EDT) Sodium 134(L) 136 - 145 mmol/L 02/24/2025 6:02 AM EDT [facility] Potassium 4.2 3.5 - 5.0 mmol/L 02/24/2025 6:02 AM EDT [facility] Chloride 100 98 - 107 mmol/L 02/24/2025 6:02 AM EDT [facility] Total CO2 23 22 - 29 mmol/L 02/24/2025 6:02 AM EDT [facility] Anion Gap 11 7 - 16 mmol/L 02/24/2025 6:02 AM EDT [facility] Calcium 8.5(L) 8.8 - 10.4 mg/dL 02/24/2025 6:02 AM EDT [facility] Glucose Lvl 222(H) 70 - 99 mg/dL 02/24/2025 6:02 AM EDT [facility] BUN 24(H) 8 - 23 mg/dL 02/24/2025 6:02 AM EDT [facility] Creatinine 1.09 0.67 - 1.30 mg/dL 02/24/2025 6:02 AM EDT [facility] eGFR (CKD-EPIcr 2020) 66 >=60 mL/min/1.7 3 m2 02/24/2025 6:02 AM EDT [facility] Comment:Estimated GFR was ca lculated using the CKD-EPIcr (2020) equation refit without race. The equation is recommended by the [employer] Kid[employer] - [place] [employer] Neph[employer] Task Force. Blood VENOUS BLOOD / Unknown Venipuncture / Unknown 02/24/2025 5:13 AM EDT 02/24/2025 5:41 AM EDT us Berenice Dallas DO CHEMISTRY ORDERABLES Final Result [facility] [address] [place] [address] * (ABNORMAL) GLUCOSE METER POC (02/23/2025 9:29 PM EDT) Glucose Meter POC 256(H) 70 - 100 mg/dL 02/23/2025 9:31 PM EDT [facility] Sample Type Capillary 02/23/2025 9:31 PM EDT [facility] Patient Status Non-Critical Patient 02/23/2025 9:31 PM EDT [facility] Blood BLOOD SPECIMEN / Unknown 02/23/2025 9:29 PM EDT 02/23/2025 9:31 PM EDT us Sameer Ortega MD POINT OF CARE TEST ORDERABLES Fi nal Result Performing Organization Address [facility] de Phone Number [facility] [address] [place] [address] * (ABNORMAL) GLUCOSE METER POC (02/23/2025 8:17 PM EDT) Glucose Meter POC 224(H) 70 - 100 mg/dL 02/23/2025 8:18 PM EDT [facility] Sample Type Capillary 02/23/2025 8:18 PM EDT [facility] Patient Status Non-Critical Patient 02/23/2025 8:18 PM EDT [facility] Blood BLOOD SPECIMEN / Unknown 02/23/2025 8:17 PM EDT 02/23/2025 8:18 PM EDT us Sameer Ortega MD POINT OF CARE TEST ORDERABLES Fi nal Result Performing Organization Address [facility] de Phone Number [facility] [address] [place] [address] * (ABNORMAL) GLUCOSE METER POC (02/23/2025 5:00 PM EDT) Glucose Meter POC 175(H) 70 - 100 mg/dL 02/23/2025 5:02 PM EDT [facility] Sample Type Capillary 02/23/2025 5:02 PM EDT [facility] Patient Status Non-Critical Patient 02/23/2025 5:02 PM EDT [facility] Blood BLOOD SPECIMEN / Unknown 02/23/2025 5:00 PM EDT 02/23/2025 5:02 PM EDT Sameer Ortega MD POINT OF CARE TEST ORDERABLES Fi nal Result Performing Organization Address [facility] de Phone Number [facility] [address] [place] [address] * EXTRA MINT CHARLES HURTADO (02/23/2025 4:06 PM EDT) Blood VENOUS BLOOD / Unknown Venipuncture / Unknown 02/23/2025 4:06 PM EDT 02/23/2025 4:13 PM EDT Sameer Ortega MD CHEMISTRY ORDERABLES Final Resul t Performing Organization Address [facility] Phone Number [facility] [address] [place] [address] * (ABNORMAL) SEDIMENTATION RATE AUTOMATED (02/23/2025 4:06 PM EDT) Sed Rate 50(H) 0 - 20 mm/hr 02/23/2025 4:20 PM EDT [facility] Blood VENOUS BLOOD / Unknown Venipuncture / Unknown 02/23/2025 4:06 PM EDT 02/23/2025 4:12 PM EDT Katie Viera APRN HEMATOLOGY ORDERABLES Fin al Result Performing Organization Address [facility] de Phone Number [facility] [address] [place] [address] * (ABNORMAL) CBC WITH DIFF (02/23/2025 4:06 PM EDT) WBC 9.2 3.7 - 10.3 x10(3)/mcL 02/23/2025 4:20 PM EDT [facility] RBC 3.15(L) 4.60 - 6.10 x10(6)/mcL 02/23/2025 4:20 PM EDT [facility] Hgb 9.9(L) 13.7 - 17.5 g/dL 02/23/2025 4:20 PM EDT [facility] Hct 30.3(L) 40.0 - 51.0 % 02/23/2025 4:20 PM EDT [facility] MCV 96.2 80.0 - 100.0 fL 02/23/2025 4:20 PM EDT [facility] MCH 31.4 26.0 - 34.0 pg 02/23/2025 4:20 PM EDT [facility] MCHC 32.7 30.7 - 35.5 g/dL 02/23/2025 4:20 PM EDT [facility] RDW 14.1 <=14.9 % 02/23/2025 4:20 PM EDT [facility] Platelet 241 155 - 369 x10(3)/mcL 02/23/2025 4:20 PM EDT [facility] MPV 9.0 8.8 - 12.5 fL 02/23/2025 4:20 PM EDT [facility] Neut Percent 70.8 % 02/23/2025 4:20 PM EDT [facility] Comment:Neutrophils equals s egs plus bands Imm Gran% 0.8 % 02/23/2025 4:20 PM EDT [facility] Comment:Automated count of m etamyelocytes, myelocytes and promyelocytes. Lymph Percent 17.3 % 02/23/2025 4:20 PM EDT [facility] [place] Percent 7.5 % 02/23/2025 4:20 PM EDT [facility] Eos Percent 3.3 % 02/23/2025 4:20 PM EDT [facility] Baso Percent 0.3 % 02/23/2025 4:20 PM EDT [facility] Neut # 6.5(H) 1.6 - 6.1 x10(3)/mcL 02/23/2025 4:20 PM EDT [facility] Comment:Neutrophils equals s egs plus bands IMMGRAN# 0.1 0.0 - 0.1 x10(3)/mcL 02/23/2025 4:20 PM EDT [facility] Comment:Automated count of m etamyelocytes, myelocytes and promyelocytes. An absolute IG <0.1 is reported as 0.0. Lymph # 1.6 1.2 - 3.9 x10(3)/mcL 02/23/2025 4:20 PM EDT [facility] [place] # 0.7 0.3 - 0.9 x10(3)/mcL 02/23/2025 4:20 PM EDT [facility] Eos# 0.3 0.0 - 0.5 x10(3)/mcL 02/23/2025 4:20 PM EDT [facility] Baso # 0.0 0.0 - 0.1 x10(3)/mcL 02/23/2025 4:20 PM EDT [facility] Blood VENOUS BLOOD / Unknown Venipuncture / Unknown 02/23/2025 4:06 PM EDT 02/23/2025 4:12 PM EDT us Katie Viera EVS MANAGER HEMATOLOGY ORDERABLES Fin al Result Performing Organization Address City/[facility]/ZIP Co de Phone Number [facility] [address] [place] [address] * BLOOD CULTURE (NO STAIN) (02/23/2025 4:06 PM EDT) Culture Result No Growth at 120 hours. BLOOD CULTURE (NO STAIN) 02/28/2025 9:00 PM EDT [facility] Blood VENOUS BLOOD / Unknown Venipuncture / Unknown 02/23/2025 4:06 PM EDT 02/23/2025 4:14 PM EDT Katie Viera APRN MICROBIOLOGY - GENERAL OR DERABLES Final Result [facility] [address] [place] [address] , [facility] [place] [address] * (ABNORMAL) HEPATIC FUNCTION PANEL (02/23/2025 2:55 PM EDT) Total Protein 5.8(L) 6.4 - 8.3 gm/dL 02/23/2025 3:27 PM EDT [facility] Albumin 3.2 3.2 - 4.6 gm/dL 02/23/2025 3:27 PM EDT [facility] Bili Direct <0.2 0.0 - 0.3 mg/dL 02/23/2025 3:27 PM EDT [facility] Bili Total <0.2(L) 0.2 - 1.4 mg/dL 02/23/2025 3:27 PM EDT [facility] AST 14 <=40 U/L 02/23/2025 3:27 PM EDT [facility] ALT 14 <=41 U/L 02/23/2025 3:27 PM EDT [facility] Alk Phos 99 40 - 129 U/L 02/23/2025 3:27 PM EDT [facility] Blood VENOUS BLOOD / Unknown Venipuncture / Unknown 02/23/2025 2:55 PM EDT 02/23/2025 3:03 PM EDT Katie Viera EVS MANAGER CHEMISTRY ORDERABLES Marixa l Result Performing Organization Address City/[facility]/ZIP Co de Phone Number [facility] [address] [place] [address] * (ABNORMAL) C-REACTIVE PROTEIN (02/23/2025 2:55 PM EDT) [facility] CRP 38.10(H) <=5.00 mg/L 02/23/2025 6:40 PM EDT [facility] Blood VENOUS BLOOD / Unknown Venipuncture / Unknown 02/23/2025 2:55 PM EDT 02/23/2025 3:02 PM EDT Katie Yoselin Viera EVS MANAGER CHEMISTRY ORDERABLES Marixa l Result [facility] [address] [facility] , [place] [address] * BLOOD CULTURE (NO STAIN) (02/23/2025 2:55 PM EDT) Pathologist [facility] Culture Result No Growth at 120 hours. BLOOD CULTURE (NO STAIN) 02/28/2025 9:00 PM EDT [facility] Blood VENOUS BLOOD / Unknown Venipuncture / Unknown 02/23/2025 2:55 PM EDT 02/23/2025 3:03 PM EDT Katie Viera EVS MANAGER MICROBIOLOGY - GENERAL OR DERABLES Final Result Performing Organization Address City/[facility]/ZIP Co de Phone Number [facility] [address] [facility] , [address] [place] [id number] * (ABNORMAL) GLUCOSE METER POC (02/23/2025 11:37 AM EDT) Glucose Meter POC 257(H) 70 - 100 mg/dL 02/23/2025 11:39 AM EDT [facility] Sample Type Capillary 02/23/2025 11:39 AM EDT [facility] Patient Status Non-Critical Patient 02/23/2025 11:39 AM EDT [facility] Blood BLOOD SPECIMEN / Unknown 02/23/2025 11:37 AM EDT 02/23/2025 11:39 AM EDT Sameer Ortega MD POINT OF CARE TEST ORDERABLES Fi nal Result Performing Organization Address [facility] Co de Phone Number [facility] [address] [place] [address] * VANCOMYCIN LEVEL AUC1 (02/23/2025 10:46 AM EDT) [facility] Vancomycin AUC1 49.0 mcg/mL 11:22 AM EDT [facility] Blood VENOUS BLOOD / Unknown Venipuncture / Unknown 02/23/2025 10:46 AM EDT 02/23/2025 11:02 AM EDT Berenice Dallas DO CHEMISTRY ORDERABLES Final Result Performing Organization Address City/[facility] Co de Phone Number [facility] [address] [place] [address] * (ABNORMAL) GLUCOSE METER POC (02/23/2025 8:03 AM EDT) Glucose Meter POC 257(H) 70 - 100 mg/dL 02/23/2025 8:05 AM EDT [facility] Sample Type Capillary 02/23/2025 8:05 AM EDT [facility] Patient Status Non-Critical Patient 02/23/2025 8:05 AM EDT [facility] Blood BLOOD SPECIMEN / Unknown 02/23/2025 8:03 AM EDT 02/23/2025 8:05 AM EDT Sameer Ortega MD POINT OF CARE TEST ORDERABLES Fi nal Result Performing Organization Address [facility]/ZIP Co de Phone Number [facility] [address] [place] [address] * (ABNORMAL) HEMOGLOBIN AND HEMATOCRIT (02/23/2025 5:40 AM EDT) Pathologist [facility] Hgb 10.0(L) 13.7 - 17.5 g/dL 02/23/2025 6:05 AM EDT [facility] Hct 31.0(L) 40.0 - 51.0 % 02/23/2025 6:05 AM EDT [facility] Blood VENOUS BLOOD / Unknown Venipuncture / Unknown 02/23/2025 5:40 AM EDT 02/23/2025 6:00 AM EDT Mason Jacome DO HEMATOLOGY ORDERABLES Final Re sult Performing Organization Address City/[facility]/ZIP Co de Phone Number [facility] [address] [place] [address] * (ABNORMAL) BASIC METABOLIC PANEL (02/23/2025 5:40 AM EDT) Sodium 133(L) 136 - 145 mmol/L 02/23/2025 6:24 AM EDT [facility] Potassium 4.8 3.5 - 5.0 mmol/L 02/23/2025 6:24 AM EDT [facility] Chloride 99 98 - 107 mmol/L 02/23/2025 6:24 AM EDT [facility] Total CO2 24 22 - 29 mmol/L 02/23/2025 6:24 AM EDT [facility] Anion Gap 10 7 - 16 mmol/L 02/23/2025 6:24 AM EDT [facility] Calcium 8.4(L) 8.8 - 10.4 mg/dL 02/23/2025 6:24 AM EDT [facility] Glucose Lvl 281(H) 70 - 99 mg/dL 02/23/2025 6:24 AM EDT [facility] BUN 20 8 - 23 mg/dL 02/23/2025 6:24 AM EDT [facility] Creatinine 0.86 0.67 - 1.30 mg/dL 02/23/2025 6:24 AM EDT [facility] eGFR (CKD-EPIcr 2020) 84 >=60 mL/min/1.7 3 m2 02/23/2025 6:24 AM EDT [facility] Comment:Estimated GFR was ca lculated using the CKD-EPIcr (2020) equation refit without race. The equation is recommended by the [employer] - [employer] [employer] Task Force. Blood VENOUS BLOOD / Unknown Venipuncture / Unknown 02/23/2025 5:40 AM EDT 02/23/2025 6:00 AM EDT Berenice Dallas DO CHEMISTRY ORDERABLES Final Result [facility] [address] [place], [place] [id number] * (ABNORMAL) GLUCOSE METER POC (02/22/2025 9:02 PM EDT) [facility] Glucose Meter POC 334(H) 70 - 100 mg/dL 02/22/2025 9:03 PM EDT [facility] Sample Type Capillary 02/22/2025 9:03 PM EDT [facility] Patient Status Non-Critical Patient 02/22/2025 9:03 PM EDT [facility] Blood BLOOD SPECIMEN / Unknown 02/22/2025 9:02 PM EDT 02/22/2025 9:03 PM EDT us Sameer Ortega MD POINT OF CARE TEST ORDERABLES Fi nal Result [facility] [address] [place] [address] * (ABNORMAL) GLUCOSE METER POC (02/22/2025 5:04 PM EDT) Glucose Meter POC 228(H) 70 - 100 mg/dL 02/22/2025 5:05 PM EDT [facility] Sample Type Capillary 02/22/2025 5:05 PM EDT [facility] Patient Status Non-Critical Patient 02/22/2025 5:05 PM EDT [facility] Blood BLOOD SPECIMEN / Unknown 02/22/2025 5:04 PM EDT 02/22/2025 5:05 PM EDT us Sameer Ortega MD POINT OF CARE TEST ORDERABLES Fi nal Result Performing Organization Address City/[facility]/ZIP Co de Phone Number [facility] [address] [place] [address] * (ABNORMAL) GLUCOSE METER POC (02/22/2025 1:38 PM EDT) Glucose Meter POC 327(H) 70 - 100 mg/dL 02/22/2025 1:40 PM EDT [facility] Sample Type Capillary 02/22/2025 1:40 PM EDT [facility] Patient Status Non-Critical Patient 02/22/2025 1:40 PM EDT [facility] Blood BLOOD SPECIMEN / Unknown 02/22/2025 1:38 PM EDT 02/22/2025 1:40 PM EDT us Sameer Ortega MD POINT OF CARE TEST ORDERABLES Fi nal Result [facility] [address] [place] [address] * (ABNORMAL) HEMOGLOBIN A1C (02/22/2025 12:05 PM EDT) Hgb A1C 9.7(H) 4.2 - 5.6 % 02/22/2025 1:41 PM EDT [facility] [place]. Avg Glucose 232 mg/dL 02/22/2025 1:41 PM EDT [facility] Blood VENOUS BLOOD / Unknown Venipuncture / Unknown 02/22/2025 12:05 PM EDT 02/22/2025 12:09 PM EDT Narrative [facility] [place] - 02/22/2025 1:41 PM EDT REFERENCE RANGE: Normal: 4.0-5.6% Pre-diabetes: 5.7-6.4% Provisional diagnosis of diabetes: >6.4% Hgb F>10% and anything which shortens red cell survival, such as hemolytic anemia, or unstable hemoglobin variants such as HbSS, HbSC, or HbCC, will lower the HbA1c value associated with a given level of glycemic control. us Serafin Morejon MD CHEMISTRY ORDERABLES Marixa camara Result [facility] [place] [address] [place] [address] , [place] [address] * XR PELVIS (02/22/2025 11:20 AM EDT) Anatomical Region Laterality Modality Pelvis Radiographic Юлия ging 02/22/2025 11:2 0 AM EDT Impressions 02/22/2025 11:42 AM EDT Postsurgical changes of right hip arthroplasty. - Note: Radiology results need to be interpreted within a comprehensive clinical context. If you have questions about the radiology report, please contact the office of the ordering clinician. Narrative 02/22/2025 11:42 AM EDT XR PELVIS 02/22/2025 11:20 AM CLINICAL HISTORY: -post op hip surgery COMPARISON: 02/16/2025 PROCEDURE COMMENTS: AP view of the pelvis. FINDINGS: Postsurgical changes of right hip arthroplasty. Moderate to advanced left hip osteoarthritis partially visualized. No evidence of periprosthetic fracture or hardware complication to the extent visualized. Procedure Note Brandon Huynh MD - 02/22/2025 XR PELVIS 02/22/2025 11:20 AM CLINICAL HISTORY: -post op hip surgery COMPARISON: 02/16/2025 PROCEDURE COMMENTS: AP view of the pelvis. FINDINGS: Postsurgical changes of right hip arthroplasty. Moderate toadvanced left hip osteoarthritis partially visualized. No evidence ofperiprosthetic fracture or hardware complication to the extent visualized. IMPRESSION: Postsurgical changes of right hip arthroplasty. - Note: Radiology results need to be interpreted within a comprehensiveclinical context. If you have questions about the radiology report, please contactthe office of the ordering clinician. us Mason Jacome DO [facility] ORDERAB LES Final Result * (ABNORMAL) GLUCOSE METER POC (02/22/2025 10:48 AM EDT) Glucose Meter POC 342(H) 70 - 100 mg/dL 02/22/2025 10:51 AM EDT [facility] Sample Type Capillary 02/22/2025 10:51 AM EDT [facility] Patient Status Non-Critical Patient 02/22/2025 10:51 AM EDT [facility] Blood BLOOD SPECIMEN / Unknown 02/22/2025 10:48 AM EDT 02/22/2025 10:51 AM EDT us Sameer Ortega MD POINT OF CARE TEST ORDERABLES Fi nal Result [facility] [address] [place] [address] * FUNGUS CULTURE (NO STAIN) (02/22/2025 9:05 AM EDT) Culture No growth of fungus at 4 weeks. 03/23/2025 10:21 AM EDT [facility] [employer], [facility] Tissue RIGHT HIP REGION STRUCTURE / Unknown 02/22/2025 9:05 AM EDT 02/22/2025 9:26 AM EDT us Mason Jacome DO MICROBIOLOGY - GENERAL ORDERAB LES Final Result Performing Organization Address City/[facility]/ZIP Co de Phone Number [facility] [employer] [address] [facility] , [place] [address] * WOUND CULTURE (STAIN INCLUDED) (02/22/2025 9:05 AM EDT) Culture No growth at 94 hours. 02/26/2025 4:03 PM EDT [facility] Stain Few RBCs 02/26/2025 4:03 PM EDT [facility] Stain No WBCs seen 02/26/2025 4:03 PM EDT [facility] Stain No organisms seen 02/26/2025 4:03 PM EDT [facility] [employer] Tissue RIGHT HIP REGION STRUCTURE / Unknown 02/22/2025 9:05 AM EDT 02/22/2025 9:26 AM EDT [facility] MICROBIOLOGY - GENERAL ORDERAB LES Final Result Performing Organization Address [facility] Co de Phone Number [facility], [facility] [address] , [place] [address] * ANAEROBIC CULTURE (NO STAIN) (02/22/2025 9:05 AM EDT) Culture No anaerobic growth at 5 days. 02/27/2025 10:53 AM EDT [facility] [employer] Tissue RIGHT HIP REGION STRUCTURE / Unknown 02/22/2025 9:05 AM EDT 02/22/2025 9:26 AM EDT [facility] MICROBIOLOGY - GENERAL ORDERAB LES Final Result Performing Organization Address City/[facility]/ZIP Co de Phone Number [facility], [facility] [address] [facility] , [place] [address] * FUNGUS CULTURE (NO STAIN) (02/22/2025 9:05 AM EDT) Culture No growth of fungus at 4 weeks. 03/23/2025 10:21 AM EDT [facility] [employer] Tissue RIGHT HIP REGION STRUCTURE / Unknown 02/22/2025 9:05 AM EDT 02/22/2025 9:27 AM EDT Mason Jacome DO MICROBIOLOGY - GENERAL ORDERAB LES Final Result Performing Organization Address [facility] Co de Phone Number [facility], [facility] [address] [facility] , [place] [address] * WOUND CULTURE (STAIN INCLUDED) (02/22/2025 9:05 AM EDT) Culture No growth at 94 hours. 02/26/2025 1:55 PM EDT [facility] Stain Few RBCs 02/26/2025 1:55 PM EDT [facility] Stain No WBCs seen 02/26/2025 1:55 PM EDT [facility] Stain No organisms seen 02/26/2025 1:55 PM EDT [facility] Tissue RIGHT HIP REGION STRUCTURE / Unknown 02/22/2025 9:05 AM EDT 02/22/2025 9:26 AM EDT Mason Jacome DO MICROBIOLOGY - GENERAL ORDERAB LES Final Result Performing Organization Address [facility] de Phone Number [facility], [facility] [address] [place] [place] [address] * ANAEROBIC CULTURE (NO STAIN) (02/22/2025 9:05 AM EDT) Culture No anaerobic growth at 5 days. 02/27/2025 10:53 AM EDT [facility] [employer] Tissue RIGHT HIP REGION STRUCTURE / Unknown 02/22/2025 9:05 AM EDT 02/22/2025 9:26 AM EDT Maosn Jacome DO MICROBIOLOGY - GENERAL ORDERAB LES Final Result Performing Organization Address [facility] Co de Phone Number [facility], [facility] [address] [facility] , [place] [address] * FUNGUS CULTURE (NO STAIN) (02/22/2025 9:03 AM EDT) Culture No growth of fungus at 4 weeks. 03/23/2025 10:21 AM EDT [facility] Tissue RIGHT HIP REGION STRUCTURE / Unknown 02/22/2025 9:03 AM EDT 02/22/2025 9:26 AM EDT Maosn Jacome DO MICROBIOLOGY - GENERAL ORDERAB LES Final Result Performing Organization Address City/[facility]/ZIP Co de Phone Number [facility], [employer] [address] [facility] , [place] [address] * WOUND CULTURE (STAIN INCLUDED) (02/22/2025 9:03 AM EDT) Culture No growth at 94 hours. 02/26/2025 4:03 PM EDT [facility] Stain Moderate RBCs 02/26/2025 4:03 PM EDT [facility] Stain Rare WBCs 02/26/2025 4:03 PM EDT [facility] Stain No organisms seen 02/26/2025 4:03 PM EDT [facility] Tissue RIGHT HIP REGION STRUCTURE / Unknown 02/22/2025 9:03 AM EDT 02/22/2025 9:26 AM EDT Mason Jacome DO MICROBIOLOGY - GENERAL ORDERAB LES Final Result Performing Organization Address City/[facility]/ZIP Co de Phone Number [facility], [facility] [address] [facility] , [place] [address] * ANAEROBIC CULTURE (NO STAIN) (02/22/2025 9:03 AM EDT) Culture No anaerobic growth at 5 days. 02/27/2025 10:53 AM EDT [facility] [employer] Tissue RIGHT HIP REGION STRUCTURE / Unknown 02/22/2025 9:03 AM EDT 02/22/2025 9:26 AM EDT Mason Jacome DO MICROBIOLOGY - GENERAL ORDERAB LES Final Result [facility], [facility] [address] [facility], [address] [place], [place] [id number] * (ABNORMAL) GLUCOSE METER POC (02/22/2025 7:58 AM EDT) [facility] Glucose Meter POC 300(H) 70 - 100 mg/dL 02/22/2025 8:00 AM EDT [facility] Sample Type Capillary 02/22/2025 8:00 AM EDT [facility] Patient Status Non-Critical Patient 02/22/2025 8:00 AM EDT [facility] Blood BLOOD SPECIMEN / Unknown 02/22/2025 7:58 AM EDT 02/22/2025 8:00 AM EDT Sameer Ortega MD POINT OF CARE TEST ORDERABLES Fi nal Result Performing Organization Address City/[facility]/ZIP Co de Phone Number [facility] [address] [place] [id number] * EK EKG 12 LEAD (02/22/2025 7:55 AM EDT) Anatomical Region Laterality Modality Electrocardiogra phy 02/22/2025 8:09 AM EDT Impressions 02/22/2025 3:[address] [facility] Test Date: 2025-02-22 Pat Name: STEVE KING Department: DEPID Room: [facility] Gender: Male Nitrating Acid Mixer: Tacos : 1935 Requested By: SERAFIN STRAUSS Order Number: [id number] Reading MD: Danny Yi Measurements Intervals Davin Rate: 77 P: 71 WI: 275 QRS: -32 QRSD: 155 T: 121 QT: 435 QTc: 492 Interpretive Statements SINUS RHYTHM WITH FIRST DEGREE AV BLOCK AND PREMATURE VENTRICULAR COMPLEXES LEFT AXIS DEVIATION LEFT BUNDLE BRANCH BLOCK Electronically Signed On 02-22-2025 15:21:34 EDT by Danny Yi Narrative Procedure Note Danny Yi MD - 02/22/[address] [facility] Test Date: 2025-02-22 Pat Name: STEVE KING Department: DEPID Room: W370 Gender: Male Nitrating Acid Mixer: Tacos : 1935 Requested By: SERAFIN STRAUSS Order Number: [id number] Reading MD: Danny Yi Measurements Intervals Davin Rate: 77 P: 71 WI: 275 QRS: -32 QRSD: 155 T: 121 QT: 435 QTc: 492 Interpretive Statements SINUS RHYTHM WITH FIRST DEGREE AV BLOCK AND PREMATURE VENTRICULARCOMPLEXES LEFT AXIS DEVIATION LEFT BUNDLE BRANCH BLOCK Electronically Signed On 02-22-2025 15:21:34 EDT by Danny Yi us Serafin Morejon MD IMG ECG ORDERABLES Final Result * EXTRA MINT GREEN LI (02/22/2025 6:19 AM EDT) Blood VENOUS BLOOD / Unknown Venipuncture / Unknown 02/22/2025 6:19 AM EDT 02/22/2025 6:57 AM EDT Sameer Ortega MD CHEMISTRY ORDERABLES Final Resul t Performing Organization Address [facility] Co de Phone Number [facility] [address] [place] [address] * EXTRA LAVENDER (02/22/2025 6:19 AM EDT) Blood VENOUS BLOOD / Unknown Venipuncture / Unknown 02/22/2025 6:19 AM EDT 02/22/2025 6:56 AM EDT Sameer Ortega MD HEMATOLOGY ORDERABLES Final Resu lt Performing Organization Address City/[facility]/ZIP Co de Phone Number [facility] [address] [place] [address] * BB HISTORY CHECK (02/22/2025 6:19 AM EDT) BB HISTORY CHECK (1) No Previous History 02/22/2025 7:10 AM EDT [facility] Blood VENOUS BLOOD / Unknown Venipuncture / Unknown 02/22/2025 6:19 AM EDT 02/22/2025 6:55 AM EDT [facility] Final Re sult Performing Organization Address [facility] Co de Phone Number [facility] [address] [place] [address] * ANTIBODY SCREEN IGG (02/22/2025 6:19 AM EDT) ABSC IgG Int Negative 02/22/2025 8:01 AM EDT [facility] Blood VENOUS BLOOD / Unknown Venipuncture / Unknown 02/22/2025 6:19 AM EDT 02/22/2025 6:55 AM EDT [facility] ORDERABLES Final Re sult Performing Organization Address [facility] de Phone Number [facility] [address] [place] [address] * ABORH (02/22/2025 6:19 AM EDT) ABORH Int O POS 02/22/2025 8:0 1 AM EDT [facility] Blood VENOUS BLOOD / Unknown Venipuncture / Unknown 02/22/2025 6:19 AM EDT 02/22/2025 6:55 AM EDT [facility] BLOOD BANK ORDERABLES Final Re sult Performing Organization Address City/[facility] Co de Phone Number [facility] [address] [place] [address] * VANCOMYCIN LEVEL AUC2 (02/21/2025 12:12 PM EDT) Vancomycin AUC2 15.5 mcg/mL 12:44 PM EDT [facility] Blood VENOUS BLOOD / Unknown Venipuncture / Unknown 02/21/2025 12:12 PM EDT 02/21/2025 12:21 PM EDT Berenice Dallas DO CHEMISTRY ORDERABLES Final Result Performing Organization Address [facility] Co de Phone Number [facility] [address] [place] [address] * VANCOMYCIN LEVEL AUC1 (02/21/2025 6:02 AM EDT) Pathologist [facility] Vancomycin AUC1 23.9 mcg/mL 6:28 AM EDT [facility] Blood VENOUS BLOOD / Unknown Venipuncture / Unknown 02/21/2025 6:02 AM EDT 02/21/2025 6:04 AM EDT Berenice Mark Burt CHEMISTRY ORDERABLES Final Result Performing Organization Address [facility] de Phone Number [facility] [address] [place] [address] * (ABNORMAL) BASIC METABOLIC PANEL (02/21/2025 6:02 AM EDT) Pathologist [facility] Sodium 134(L) 136 - 145 mmol/L 02/21/2025 6:28 AM EDT [facility] Potassium 4.2 3.5 - 5.0 mmol/L 02/21/2025 6:28 AM EDT [facility] Chloride 100 98 - 107 mmol/L 02/21/2025 6:28 AM EDT [facility] Total CO2 23 22 - 29 mmol/L 02/21/2025 6:28 AM EDT [facility] Anion Gap 11 7 - 16 mmol/L 02/21/2025 6:28 AM EDT [facility] Calcium 8.6(L) 8.8 - 10.4 mg/dL 02/21/2025 6:28 AM EDT [facility] Glucose Lvl 317(H) 70 - 99 mg/dL 02/21/2025 6:28 AM EDT [facility] BUN 25(H) 8 - 23 mg/dL 02/21/2025 6:28 AM EDT [facility] Creatinine 0.86 0.67 - 1.30 mg/dL 02/21/2025 6:28 AM EDT [facility] eGFR (CKD-EPIcr 2020) 84 >=60 mL/min/1.7 3 m2 02/21/2025 6:28 AM EDT [facility] Comment:Estimated GFR was ca lculated using the CKD-EPIcr (2020) equation refit without race. The equation is recommended by the National Kid[employer] - [place] [employer] Neph[employer] Task Force. Blood VENOUS BLOOD / Unknown Venipuncture / Unknown 02/21/2025 6:02 AM EDT 02/21/2025 6:04 AM EDT Berenice Dallas DO CHEMISTRY ORDERABLES Final Result [facility] [address] [place] [address] * (ABNORMAL) CBC (02/21/2025 6:02 AM EDT) WBC 5.6 3.7 - 10.3 x10(3)/mcL 02/21/2025 6:09 AM EDT [facility] RBC 3.57(L) 4.60 - 6.10 x10(6)/mcL 02/21/2025 6:09 AM EDT [facility] Hgb 11.1(L) 13.7 - 17.5 g/dL 02/21/2025 6:09 AM EDT [facility] Hct 33.8(L) 40.0 - 51.0 % 02/21/2025 6:09 AM EDT [facility] MCV 94.7 80.0 - 100.0 fL 02/21/2025 6:09 AM EDT [facility] MCH 31.1 26.0 - 34.0 pg 02/21/2025 6:09 AM EDT [facility] MCHC 32.8 30.7 - 35.5 g/dL 02/21/2025 6:09 AM EDT [facility] RDW 13.7 <=14.9 % 02/21/2025 6:09 AM EDT [facility] Platelet 209 155 - 369 x10(3)/mcL 02/21/2025 6:09 AM EDT [facility] MPV 10.0 8.8 - 12.5 fL 02/21/2025 6:09 AM EDT [facility] Blood VENOUS BLOOD / Unknown Venipuncture / Unknown 02/21/2025 6:02 AM EDT 02/21/2025 6:04 AM EDT Berenice Dallas DO HEMATOLOGY ORDERABLE S Final Result Performing Organization Address [facility] Co de Phone Number [facility] [address] [place] [address] * (ABNORMAL) GLUCOSE METER POC (02/20/2025 12:14 PM EDT) Glucose Meter POC 303(H) 70 - 100 mg/dL 02/20/2025 12:16 PM EDT [facility] Sample Type Capillary 02/20/2025 12:16 PM EDT [facility] Patient Status Non-Critical Patient 02/20/2025 12:16 PM EDT [facility] Blood BLOOD SPECIMEN / Unknown 02/20/2025 12:14 PM EDT 02/20/2025 12:16 PM EDT Sameer Ortega MD POINT OF CARE TEST ORDERABLES Fi nal Result Performing Organization Address City/[facility]/ZIP Co de Phone Number [facility] [address] [place] [address] * (ABNORMAL) BASIC METABOLIC PANEL (02/20/2025 6:24 AM EDT) Sodium 133(L) 136 - 145 mmol/L 02/20/2025 7:17 AM EDT [facility] Potassium 4.2 3.5 - 5.0 mmol/L 02/20/2025 7:17 AM EDT [facility] Chloride 99 98 - 107 mmol/L 02/20/2025 7:17 AM EDT [facility] Total CO2 24 22 - 29 mmol/L 02/20/2025 7:17 AM EDT [facility] Anion Gap 10 7 - 16 mmol/L 02/20/2025 7:17 AM EDT [facility] Calcium 8.6(L) 8.8 - 10.4 mg/dL 02/20/2025 7:17 AM EDT [facility] Glucose Lvl 290(H) 70 - 99 mg/dL 02/20/2025 7:17 AM EDT [facility] BUN 29(H) 8 - 23 mg/dL 02/20/2025 7:17 AM EDT [facility] Creatinine 0.92 0.67 - 1.30 mg/dL 02/20/2025 7:17 AM EDT [facility] eGFR (CKD-EPIcr 2020) 81 >=60 mL/min/1.7 3 m2 02/20/2025 7:17 AM EDT [facility] Comment:Estimated GFR was ca lculated using the CKD-EPIcr (2020) equation refit without race. The equation is recommended by the [employer] Kid[employer] - [place] [employer] Neph[employer] Task Force. Blood VENOUS BLOOD / Unknown Venipuncture / Unknown 02/20/2025 6:24 AM EDT 02/20/2025 6:53 AM EDT Berenice Dallas DO CHEMISTRY ORDERABLES Final Result [facility] [address] [id number] * (ABNORMAL) CBC (02/20/2025 6:24 AM EDT) WBC 8.5 3.7 - 10.3 x10(3)/mcL 02/20/2025 6:58 AM EDT [facility] RBC 3.52(L) 4.60 - 6.10 x10(6)/mcL 02/20/2025 6:58 AM EDT [facility] Hgb 11.0(L) 13.7 - 17.5 g/dL 02/20/2025 6:58 AM EDT [facility] Hct 33.2(L) 40.0 - 51.0 % 02/20/2025 6:58 AM EDT [facility] MCV 94.3 80.0 - 100.0 fL 02/20/2025 6:58 AM EDT [facility] MCH 31.3 26.0 - 34.0 pg 02/20/2025 6:58 AM EDT [facility] MCHC 33.1 30.7 - 35.5 g/dL 02/20/2025 6:58 AM EDT [facility] RDW 14.2 <=14.9 % 02/20/2025 6:58 AM EDT [facility] Platelet 217 155 - 369 x10(3)/mcL 02/20/2025 6:58 AM EDT [facility] MPV 10.0 8.8 - 12.5 fL 02/20/2025 6:58 AM EDT [facility] Blood VENOUS BLOOD / Unknown Venipuncture / Unknown 02/20/2025 6:24 AM EDT 02/20/2025 6:53 AM EDT us Berenice Dallas DO HEMATOLOGY ORDERABLE S Final Result Performing Organization Address City/State/[facility] Co de Phone Number [facility] [address] [place] [address] * US GUIDED NEEDLE PLACEMENT-FNA (02/19/2025 1:21 PM EDT) Anatomical Region Laterality Modality Ultrasound 02/19/2025 1:21 PM EDT Impressions 02/19/2025 2:36 PM EDT Ultrasound-guided aspiration right hip joint/bursal effusion. Narrative 02/19/2025 2:36 PM EDT US GUIDED NEEDLE PLACEMENT-FNA 02/19/2025 1:21 PM HISTORY: -right hip bursa collection- requested aspiration. COMPARISON: MRI right hip with and without contrast 02/18/2025. PROCEDURE: Written informed consent obtained. Procedure performed by Jericho Marrufo M.D. Conscious sedation not utilized. Ultrasound imaging demonstrates irregular crescentic fluid collection posterior lateral to right hip joint corresponding to abnormality on recent MRI. Overlying skin prepped and draped usual sterile manner. Local anesthesia 1% lidocaine. 18-gauge Chiba needle introduced to the collection under direct ultrasound visualization. 150 mL of turbid meza viscous fluid returned, sample sent in sterile syringe and red top tube for requested labs. Follow-up ultrasound imaging demonstrates near complete resolution of collection. Procedure Note Jericho Marrufo MD - 02/19/2025 US GUIDED NEEDLE PLACEMENT-FNA 02/19/2025 1:21 PM HISTORY: -right hip bursa collection- requested aspiration. COMPARISON: MRI right hip with and without contrast 02/18/2025. PROCEDURE: Written informed consent obtained. Procedure performed by Jericho Cruz Conscious sedation not utilized. Ultrasound imaging demonstratesirregular crescentic fluid collection posterior lateral to right hip jointcorresponding to abnormality on recent MRI. Overlying skin prepped and draped usualsterile manner. Local anesthesia 1% lidocaine. 18-gauge Chiba needle introduced tothe collection under direct ultrasound visualization. 150 mL of turbid tanviscous fluid returned, sample sent in sterile syringe and red top tube forrequested labs. Follow-up ultrasound imaging demonstrates near complete resolutionof collection. IMPRESSION: Ultrasound-guided aspiration right hip joint/bursal effusion. Amanda Jones PA-C IMG US ORDERABLES Final R esult * (ABNORMAL) JOINT FLUID DIFFERENTIAL (02/19/2025 12:43 PM EDT) Segs JF 84(H) <25 % 02/19/2025 4:46 PM EDT [facility] Lymphs JF 6 % 02/19/2025 4:46 PM EDT [facility] Macrophages JF 10 % 02/19/2025 4:46 PM EDT [facility] Body Fluid RIGHT HIP REGION STRUCTURE / Unknown 02/19/2025 12:43 PM EDT 02/19/2025 3:21 PM EDT Mason Jacome DO BODY FLUIDS AND STOOLS ORDERAB LES Final Result [facility] [address] [place] [address] * JOINT FLUID CRYSTALS (02/19/2025 12:43 PM EDT) Crystal JF None Seen None Seen 02/19/2025 4:37 PM EDT [facility] [employer] Body Fluid RIGHT HIP REGION STRUCTURE / Unknown 02/19/2025 12:43 PM EDT 02/19/2025 3:21 PM EDT [facility] BODY FLUIDS AND STOOLS ORDERAB LES Final Result Performing Organization Address [facility] de Phone Number [facility] [place] [address] [place] [address] , [place] [address] * (ABNORMAL) PROTEIN JOINT FLUID (02/19/2025 12:43 PM EDT) [facility] Protein JF 5.0(L) 6.4 - 8.3 gm/dL 02/19/2025 4:35 PM EDT [facility] [employer] Body Fluid RIGHT HIP REGION STRUCTURE / Unknown 02/19/2025 12:43 PM EDT 02/19/2025 3:21 PM EDT Narrative [facility] [place] - 02/19/2025 4:35 PM EDT A reference interval for this test has not been established for body fluid specimens. The reference range listed reflects normal concentration of this analyte in blood. [facility] BODY FLUIDS AND STOOLS ORDERAB LES Final Result Performing Organization Address [facility] Co de Phone Number [facility] [place] [address] [place] [address] , [place] [address] * (ABNORMAL) GLUCOSE JOINT FLUID (02/19/2025 12:43 PM EDT) Glucose JF 216(H) 74 - 100 mg/dL 02/19/2025 4:39 PM EDT PREFERRED LAB [facility] Body Fluid RIGHT HIP REGION STRUCTURE / Unknown 02/19/2025 12:43 PM EDT 02/19/2025 3:21 PM EDT Narrative PREFERRED LAB [facility] - 02/19/2025 4:39 PM EDT A reference interval for this test has not been established for body fluid specimens. The reference range listed reflects normal concentration of this analyte in blood. Mason Jacome DO BODY FLUIDS AND STOOLS ORDERAB LES Final Result Performing Organization Address [facility]/ZIP Co de Phone Number [facility] [address] [facility], [place] [address] * PJI DETECTION (SYNOVASURE)-REF LAB (02/19/2025 12:43 PM EDT) [facility] See Scanned Image 03/05/2025 8:56 AM EDT [facility] Body Fluid SYNOVIAL MEMBRANE / Unknown 02/19/2025 12:43 PM EDT 02/19/2025 3:21 PM EDT Narrative EXTERNAL LAB - 03/05/2025 8:56 AM EDT [phone] [id number] us Mason Jacome DO IMMUNOLOGY ORDERABLES Final Re sult Performing Organization Address [facility] Co de Phone Number EXTERNAL LAB See Scanned Report [facility] [address] [place] [address] * (ABNORMAL) JOINT FLUID CELL COUNT (02/19/2025 12:43 PM EDT) Pathologist [facility] Color JF Abbey(A) Yellow, Straw 02/19/2025 4:43 PM EDT [facility] Appear JF Turbid(A) Clear, Slightly Hazy, Hazy 02/19/2025 4:43 PM EDT [facility] RBC JF 294 /mcL 02/19/2025 4:43 PM EDT [facility] Total Nucleated Cells JF 56,894(H) <=150 /mcL 02/19/2025 4:43 PM EDT [facility] Body Fluid RIGHT HIP REGION STRUCTURE / Unknown 02/19/2025 12:43 PM EDT 02/19/2025 3:21 PM EDT [facility] BODY FLUIDS AND STOOLS ORDERAB LES Final Result Performing Organization Address [facility] de Phone Number [facility] [employer] [address] [facility] , [place] [address] * FUNGUS STAIN (STAIN ONLY) (02/19/2025 12:43 PM EDT) Fungal Stain No yeast or fungal elements seen. No yeast or fungal elements seen. 02/20/2025 3:41 PM EDT [facility] [employer] Aspirate RIGHT HIP REGION STRUCTURE / Unknown 02/19/2025 12:43 PM EDT 02/19/2025 1:01 PM EDT [facility] MICROBIOLOGY - GENERAL ORDERAB LES Final Result Performing Organization Address [facility] de Phone Number [facility] [employer] [employer] [address] [facility] , [place] [address] * ANAEROBIC CULTURE (NO STAIN) (02/19/2025 12:43 PM EDT) Culture No anaerobic growth at 5 days. 02/24/2025 7:41 AM EDT [facility] [employer] Aspirate RIGHT HIP REGION STRUCTURE / Unknown 02/19/2025 12:43 PM EDT 02/19/2025 1:01 PM EDT [facility] MICROBIOLOGY - GENERAL ORDERAB LES Final Result Performing Organization Address [facility] de Phone Number [facility] [employer] [address] [facility] , [place] [address] * (ABNORMAL) WOUND CULTURE (STAIN INCLUDED) (02/19/2025 12:43 PM EDT) Culture Positive Growth(A) 02/23/2025 2:53 PM EDT [facility] [employer], [employer] Culture Moderate growth of Staphylococcus aureus SUSCEPTIB ILITY RESULT 02/23/2025 2:53 PM EDT [facility] [employer], [facility] Comment:PBP2a: a rapid assay that aids in identifying MRSA by detecting the protein that confers resistance to methicillin. A negative result does not exclude methicillin resistance due to other mechanisms. PBP2a test Negative 02/23/2025 2:53 PM EDT [facility] [employer], [facility] Stain Moderate WBCs 02/23/2025 2:53 PM EDT [facility] [employer], [facility] Stain No organisms seen 025 2:53 PM EDT [facility] [employer], [facility] Aspirate RIGHT HIP REGION STRUCTURE / Unknown 02/19/2025 12:43 PM EDT 02/19/2025 1:01 PM EDT Narrative Organism Antibiotic Method Susceptibility Staphylococcus aureus Ampicillin SUSCEPTIBILITY RESU LT Staphylococcus aureus Cefazolin SUSCEPTIBILITY RESU LT Staphylococcus aureus Ceftaroline SUSCEPTIBILITY RESU LT Staphylococcus aureus Ceftriaxone SUSCEPTIBILITY RESU LT Staphylococcus aureus Chloramphenicol SUSCEPTIBILITY R ESULT <=8 ug/mL: Susceptible Staphylococcus aureus Ciprofloxacin SUSCEPTIBILITY RES ULT >2 ug/mL: Resistant Staphylococcus aureus Clindamycin SUSCEPTIBILITY RESU LT <=0.25 ug/mL: Susceptible Staphylococcus aureus Daptomycin SUSCEPTIBILITY RESU LT Staphylococcus aureus Erythromycin SUSCEPTIBILITY RESU LT <=0.25 ug/mL: Susceptible Staphylococcus aureus Gentamicin SUSCEPTIBILITY RESU LT 4 ug/mL: Susceptible Staphylococcus aureus Gentamicin synergy SUSCEPTIBILIT Y RESULT Staphylococcus aureus Levofloxacin SUSCEPTIBILITY RESU LT >4 ug/mL: Resistant Staphylococcus aureus Linezolid SUSCEPTIBILITY RESU LT Staphylococcus aureus Moxifloxacin SUSCEPTIBILITY RESU LT 2 ug/mL: Resistant Staphylococcus aureus Nitrofurantoin SUSCEPTIBILITY RE SULT Staphylococcus aureus Oxacillin SUSCEPTIBILITY RESU LT <=0.25 ug/mL: Susceptible Staphylococcus aureus Penicillin SUSCEPTIBILITY RESU LT Staphylococcus aureus Rifampin SUSCEPTIBILITY RESU LT <=1 ug/mL: Susceptible Staphylococcus aureus Streptomycin synergy SUSCEPTIBIL ITY RESULT Staphylococcus aureus Synercid SUSCEPTIBILITY RESU LT Staphylococcus aureus Tetracycline SUSCEPTIBILITY RESU LT <=2 ug/mL: Susceptible Staphylococcus aureus Tigecycline SUSCEPTIBILITY RESU LT Staphylococcus aureus Trimethoprim/Sulfa meth oxazole SUSCEPTIBILITY RESULT <=0.5/9.5 ug/mL: Susceptible Staphylococcus aureus Vancomycin SUSCEPTIBILITY RESU LT 1 ug/mL: Susceptible Comment:Rifampin and Gentami danelle should not be used alone for antimicrobial therapy. For methicillin resistant staphylococci, ciprofloxacin should also not be used alone. Mason Jacome DO MICROBIOLOGY - GENERAL ORDERAB LES Final Result Performing Organization Address City/[facility]/ZIP Co de Phone Number [facility] [address] [facility] , [address] [place] [phone] * PT / INR (02/19/2025 9:01 AM EDT) PT 13.2 10.5 - 13.6 second(s) 02/19/2025 9:15 AM EDT [facility] INR 1.14 0.91 - 1.18 (ratio) 02/19/2025 9:15 AM EDT [facility] Comment: Level of Therapy Indications Target INR Range Standard Dose Treatment and prophylaxis of venous 2.0 - 3.0 thrombosis, pulmonary embolism High Dose High risk patients with mechanical 2.5 - 3.5 heart valves Blood VENOUS BLOOD / Unknown Venipuncture / Unknown 02/19/2025 9:01 AM EDT 02/19/2025 9:05 AM EDT Amanda Jones PA-C HEMATOLOGY ORDERABLES Fin al Result Performing Organization Address City/[facility] Co de Phone Number [facility] [address] [place] [phone] * (ABNORMAL) BASIC METABOLIC PANEL (02/19/2025 7:01 AM EDT) Sodium 133(L) 136 - 145 mmol/L 02/19/2025 7:58 AM EDT [facility] Potassium 4.6 3.5 - 5.0 mmol/L 02/19/2025 7:58 AM EDT [facility] Chloride 97(L) 98 - 107 mmol/L 02/19/2025 7:58 AM EDT [facility] Total CO2 23 22 - 29 mmol/L 02/19/2025 7:58 AM EDT [facility] Anion Gap 13 7 - 16 mmol/L 02/19/2025 7:58 AM EDT [facility] Calcium 8.9 8.8 - 10.4 mg/dL 02/19/2025 7:58 AM EDT [facility] Glucose Lvl 273(H) 70 - 99 mg/dL 02/19/2025 7:58 AM EDT [facility] BUN 31(H) 8 - 23 mg/dL 02/19/2025 7:58 AM EDT [facility] Creatinine 0.98 0.67 - 1.30 mg/dL 02/19/2025 7:58 AM EDT [facility] eGFR (CKD-EPIcr 2020) 75 >=60 mL/min/1.7 3 m2 02/19/2025 7:58 AM EDT [facility] Comment:Estimated GFR was ca lculated using the CKD-EPIcr (2020) equation refit without race. The equation is recommended by the National Kidney Foundation - [place] [employer]ph[employer] Task Force. Blood VENOUS BLOOD / Unknown Venipuncture / Unknown 02/19/2025 7:01 AM EDT 02/19/2025 7:37 AM EDT Berenice Dallas DO CHEMISTRY ORDERABLES Final Result [facility] [address] [place], [place] [phone] * (ABNORMAL) CBC (02/19/2025 7:01 AM EDT) WBC 11.6(H) 3.7 - 10.3 x10(3)/mcL 02/19/2025 7:40 AM EDT [facility] RBC 3.97(L) 4.60 - 6.10 x10(6)/mcL 02/19/2025 7:40 AM EDT [facility] Hgb 12.4(L) 13.7 - 17.5 g/dL 02/19/2025 7:40 AM EDT [facility] Hct 37.9(L) 40.0 - 51.0 % 02/19/2025 7:40 AM EDT [facility] MCV 95.5 80.0 - 100.0 fL 02/19/2025 7:40 AM EDT [facility] MCH 31.2 26.0 - 34.0 pg 02/19/2025 7:40 AM EDT [facility] MCHC 32.7 30.7 - 35.5 g/dL 02/19/2025 7:40 AM EDT [facility] RDW 14.1 <=14.9 % 02/19/2025 7:40 AM EDT [facility] Platelet 237 155 - 369 x10(3)/mcL 02/19/2025 7:40 AM EDT [facility] MPV 9.9 8.8 - 12.5 fL 02/19/2025 7:40 AM EDT [facility] Blood VENOUS BLOOD / Unknown Venipuncture / Unknown 02/19/2025 7:01 AM EDT 02/19/2025 7:37 AM EDT Berenice Dallas DO HEMATOLOGY ORDERABLE S Final Result Performing Organization Address City/State/[facility] Co de Phone Number [facility] [address] [place], [place] [phone] * MRI HIP RIGHT W WO CONTRAST (02/18/2025 6:37 PM EDT) Anatomical Region Laterality Modality Hip, Acetabulum, Hip Joint Magne tic Resonance 02/18/2025 6:37 PM EDT Impressions 02/18/2025 7:25 PM EDT 1. 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 There is a large periarticular fluid collection closely associated with the posterior aspect of the joint capsule, extending into the trochanteric bursal region with extension towards the skin surface over the lateral trochanteric level. This collection demonstrates peripheral enhancement, worrisome for abscess. 2. No MRI evidence of periprosthetic osteolysis, marrow edema, or fracture. - Note: Radiology results need to be interpreted within a comprehensive clinical context. If you have questions about the radiology report, please contact the office of the ordering clinician. . Narrative 02/18/2025 7:25 PM EDT MRI HIP RIGHT W WO CONTRAST, 02/18/2025 6:37 PM CLINICAL HISTORY: -MEKA, effusion. COMPARISON: X-ray February 16, 2025 PROCEDURE COMMENTS: Multiplanar, multiecho MR performed per protocol. Gadolinium contrast administered as recorded in EPIC. FINDINGS: RIGHT HIP: There are postsurgical changes of a total right hip arthroplasty. There is a large periarticular fluid collection closely associated with the posterior aspect of the joint capsule, extending into the trochanteric bursal region with extension towards the skin surface over the lateral trochanteric level. This collection demonstrates peripheral enhancement, worrisome for abscess. The dominant collection posterior and lateral to the trochanteric femur measures 13 x 6 x 10 cm (transverse by AP by craniocaudal). There is no significant distention of the anterior capsule. There is no MRI evidence of periprosthetic osteolysis, marrow edema, or fracture. OSSEOUS STRUCTURES AND OTHER ARTICULATIONS: Moderate left hip osteoarthritic changes. Moderate pubic symphysis in [id number] bilateral sacroiliac osteoarthritis. No pelvic fracture. No marrow replacing process. OTHER SOFT TISSUES: Gluteal tendons, hamstring tendons, and hip flexors, adductors are intact. No soft tissue mass lesion. Procedure Note Elia Lechuga MD - 02/18/2025 MRI HIP RIGHT W WO CONTRAST, 02/18/2025 6:37 PM CLINICAL HISTORY: -MEKA, effusion. COMPARISON: X-ray February 16, 2025 PROCEDURE COMMENTS: Multiplanar, multiecho MR performed per protocol.Gadolinium contrast administered as recorded in EPIC. FINDINGS: RIGHT HIP: There are postsurgical changes of a total right hiparthroplasty. There is a large periarticular fluid collection closely associated withthe posterior aspect of the joint capsule, extending into the trochantericbursal region with extension towards the skin surface over the lateraltrochanteric level. This collection demonstrates peripheral enhancement, worrisomefor abscess. The dominant collection posterior and lateral to the trochantericfemur measures 13 x 6 x 10 cm (transverse by AP by craniocaudal). There is no significant distention of the anterior capsule. There is no MRI evidenceof periprosthetic osteolysis, marrow edema, or fracture. OSSEOUS STRUCTURES AND OTHER ARTICULATIONS: Moderate left hiposteoarthritic changes. Moderate pubic symphysis in ltru-fs-[id number] bilateralsacroiliac osteoarthritis. No pelvic fracture. No marrow replacing process. OTHER SOFT TISSUES: Gluteal tendons, hamstring tendons, and hip flexors, adductors are intact. No soft tissue mass lesion. IMPRESSION: 1. 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 There is alarge periarticular fluid collection closely associated with the posterioraspect of the joint capsule, extending into the trochanteric bursal region withextension towards the skin surface over the lateral trochanteric level. Thiscollection demonstrates peripheral enhancement, worrisome for abscess. 2. No MRI evidence of periprosthetic osteolysis, marrow edema, orfracture. - Note: Radiology results need to be interpreted within a comprehensiveclinical context. If you have questions about the radiology report, please contactthe office of the ordering clinician. . us Berenice Dallas DO IMG MRI ORDERABLES F inal Result * XR EYE BILATERAL FOREIGN BODY (02/18/2025 5:50 PM EDT) Anatomical Region Laterality Modality Radiographic Юлия ging 02/18/2025 5:50 PM EDT Impressions 02/18/2025 5:53 PM EDT No radiopaque orbital foreign body. - Note: Radiology results need to be interpreted within a comprehensive clinical context. If you have questions about the radiology report, please contact the office of the ordering clinician. Narrative 02/18/2025 5:53 PM EDT BILATERAL ORBITS FOR FOREIGN BODY, 02/18/2025 5:50 PM CLINICAL HISTORY: -MRI ordered. Prior orbital foreign body exposure. COMPARISON: None. PROCEDURE COMMENTS: Minimum of 2 views of the orbits to evaluate for foreign body. FINDINGS: No orbital foreign body. Sinuses and mastoids are clear. Orbital structures unremarkable. Procedure Note Elia Lechuga MD - 02/18/2025 BILATERAL ORBITS FOR FOREIGN BODY, 02/18/2025 5:50 PM CLINICAL HISTORY: -MRI ordered. Prior orbital foreign body exposure. COMPARISON: None. PROCEDURE COMMENTS: Minimum of 2 views of the orbits to evaluate forforeign body. FINDINGS: No orbital foreign body. Sinuses and mastoids are clear.Orbital structures unremarkable. IMPRESSION: No radiopaque orbital foreign body. - Note: Radiology results need to be interpreted within a comprehensiveclinical context. If you have questions about the radiology report, please contactthe office of the ordering clinician. us Berenice Dallas DO IMG DIAGNOSTIC IMAGI NG ORDERABLES Final Result * XR FEMUR RIGHT AP AND LATERAL (02/16/2025 2:13 PM EDT) Anatomical Region Laterality Modality Thigh Radiographic Юлия ging 02/16/2025 2:13 PM EDT Impressions 02/16/2025 2:16 PM EDT No acute bony abnormality. - Note: Radiology results need to be interpreted within a comprehensive clinical context. If you have questions about the radiology report, please contact the office of the ordering clinician. Narrative 02/16/2025 2:16 PM EDT XR FEMUR RIGHT AP AND LATERAL, 02/16/2025 2:13 PM CLINICAL HISTORY: -pain s/p MEKA COMPARISON: 02/16/2025 PROCEDURE COMMENTS: XR FEMUR RIGHT AP AND LATERAL FINDINGS: Right hip and knee arthroplasties. No acute fracture, dislocation, embedded foreign body, or significant soft tissue abnormality. Procedure Note Noe Asencio MD - 02/16/2025 XR FEMUR RIGHT AP AND LATERAL, 02/16/2025 2:13 PM CLINICAL HISTORY: -pain s/p MEKA COMPARISON: 02/16/2025 PROCEDURE COMMENTS: XR FEMUR RIGHT AP AND LATERAL FINDINGS: Right hip and knee arthroplasties. No acute fracture, dislocation, embedded foreign body, or significantsoft tissue abnormality. IMPRESSION: No acute bony abnormality. - Note: Radiology results need to be interpreted within a comprehensiveclinical context. If you have questions about the radiology report, please contactthe office of the ordering clinician. Mason Jacome DO IMG DIAGNOSTIC IMAGING ORDERAB LES Final Result * XR HIP RIGHT AP LATERAL W AP PELVIS (02/16/2025 2:13 PM EDT) Anatomical Region Laterality Modality Hip Radiographic Юлия ging 02/16/2025 2:13 PM EDT Impressions 02/16/2025 2:24 PM EDT No acute abnormality of the hip or pelvis. - Note: Radiology results need to be interpreted within a comprehensive clinical context. If you have questions about the radiology report, please contact the office of the ordering clinician. Narrative 02/16/2025 2:24 PM EDT XR HIP RIGHT AP LATERAL W AP PELVIS, 02/16/2025 2:13 PM CLINICAL HISTORY: -hip pain s/p MEKA COMPARISON: None. PROCEDURE COMMENTS: AP view of the pelvis with AP and frog-leg views of the hip. FINDINGS: Patient status post a total right hip replacement. Prosthetic component intact. Mild degenerative changes left hip. No definite pelvic fractures identified. Joint spaces overall well-maintained for age. No periostitis. Procedure Note Antwan Gusman III, MD - 02/16/2025 XR HIP RIGHT AP LATERAL W AP PELVIS, 02/16/2025 2:13 PM CLINICAL HISTORY: -hip pain s/p MEKA COMPARISON: None. PROCEDURE COMMENTS: AP view of the pelvis with AP and frog-leg views ofthe hip. FINDINGS: Patient status post a total right hip replacement. Prosthetic componentintact. Mild degenerative changes left hip. No definite pelvic fracturesidentified. Joint spaces overall well-maintained for age. No periostitis. IMPRESSION: No acute abnormality of the hip or pelvis. - Note: Radiology results need to be interpreted within a comprehensiveclinical context. If you have questions about the radiology report, please contactthe office of the ordering clinician. Mason Jacome DO [facility] DIAGNOSTIC IMAGING ORDERAB LES Final Result * CHROMIUM - REF LAB (02/16/2025 10:49 AM EDT) Chromium <1.0 <=5.0 ug/L 02/17/2025 7:34 PM EDT [facility] Comment: INTERPRETIVE INFORMATION: Chromium, Serum Elevated results may be due to skin or collection-related contamination, including the use of a noncertified metal-free collection/transport tube. If contamination concerns exist due to elevated levels of serum chromium, confirmation with a second specimen collected in a certified metal-free tube is recommended. Serum chromium levels can be significantly higher in patients with idwev-ka-enhnv total hip replacement implants than in control patients without metal implants. Serum chromium levels may be increased in asymptomatic patients with iumdj-qt-ecqhd prosthetics and should be considered in the context of the overall clinical scenario. Whole blood is the specimen type recommended by the U.S. Food and Drug Administration for assessing the risks of qiljp-wq-xpaey hip implants in symptomatic patients. Symptoms associated with chromium toxicity vary based on route of exposure and dose, and may include dermatitis, impairment of pulmonary function, gastroenteritis, hepatic necrosis, bleeding, and acute tubular necrosis. This test was developed and its performance characteristics determined by [facility]. It has not been cleared or approved by the [place] Food and Drug Administration. This test was performed in a CLIA certified laboratory and is intended for clinical purposes. Performed By: [facility] [address] [place] [address] Vertical Lathe Operator: Orestes Felipe MD, PhD CLIA Number: [id number] Blood VENOUS BLOOD / Unknown Venipuncture / Unknown 02/16/2025 10:49 AM EDT 02/16/2025 11:09 AM EDT [facility] Jacome CHEMISTRY ORDERABLES Final Res ult [facility] [address] [place] [address] * COBALT - REF LAB (02/16/2025 10:49 AM EDT) Stanton <1.0 <=1.0 ug/L 02/17/2025 7:34 PM EDT [facility] Comment: INTERPRETIVE INFORMATION: Stanton, Serum or Plasma Elevated results may be due to skin or collection-related contamination, including the use of a noncertified metal-free collection/transport tube. If contamination concerns exist due to elevated levels of serum/plasma cobalt, confirmation with a second specimen collected in a certified metal-free tube is recommended. Serum cobalt levels can be used in the assessment of occupational exposure or toxic ingestion. Symptoms associated with cobalt toxicity vary based on route of exposure, and may include cardiomyopathy, allergic dermatitis, pulmonary fibrosis, cough, and dyspnea. Serum cobalt levels can be significantly higher in patients with wylto-sb-likio total hip replacement implants than in control patients without metal implants. Serum cobalt levels may be increased in asymptomatic patients with mhwir-fb-frzsi prosthetics and should be considered in the context of the overall clinical scenario. Whole blood is the specimen type recommended by the U.S. Food and Drug Administration for assessing the risks of vqybg-xp-llked hip implants in symptomatic patients. This test was developed and its performance characteristics determined by [facility]. It has not been cleared or approved by the US Food and Drug Administration. This test was performed in a CLIA certified laboratory and is intended for clinical purposes. Performed By: [facility] [address] [place] [address] Vertical Lathe Operator: Orestes Felipe MD, PhD CLIA Number: [id number] Blood VENOUS BLOOD / Unknown Venipuncture / Unknown 02/16/2025 10:49 AM EDT 02/16/2025 11:09 AM EDT Mason Jacome DO CHEMISTRY ORDERABLES Final Res ult Performing Organization Address [facility]/ZIP Co de Phone Number [employer] [facility] [address] [place] [address] * THYROID STIMULATING HORMONE (02/16/2025 10:49 AM EDT) TSH 1.940 0.270 - 4.200 mcIU/mL 02/16/2025 5:39 PM EDT [facility] [place] Blood VENOUS BLOOD / Unknown Venipuncture / Unknown 02/16/2025 10:49 AM EDT 02/16/2025 11:09 AM EDT Narrative [facility] - 02/16/2025 5:39 PM EDT Ingestion of johny doses of biotin (>5 mg/day) taken within 8 hours of drawing blood sample can interfere with this immunoassay test. Sameer Ortega MD CHEMISTRY ORDERABLES Final Resul t [facility] [address] [facility] , [place] [address] * (ABNORMAL) C-REACTIVE PROTEIN (02/16/2025 10:49 AM EDT) CRP 30.18(H) <=5.00 mg/L 02/16/2025 5:39 PM EDT [facility] Blood VENOUS BLOOD / Unknown Venipuncture / Unknown 02/16/2025 10:49 AM EDT 02/16/2025 11:09 AM EDT Sameer Ortega MD CHEMISTRY ORDERABLES Final Resul t Performing Organization Address [facility] Co de Phone Number [facility] [address] [facility], [place] [address] * (ABNORMAL) SEDIMENTATION RATE AUTOMATED (02/16/2025 10:49 AM EDT) Pathologist [facility] Sed Rate 67(H) 0 - 20 mm/hr 02/16/2025 11:15 AM EDT [facility] Blood VENOUS BLOOD / Unknown Venipuncture / Unknown 02/16/2025 10:49 AM EDT 02/16/2025 11:09 AM EDT Sameer Ortega MD HEMATOLOGY ORDERABLES Final Resu lt Performing Organization Address [facility] de Phone Number [facility] [address] [place], [place] [phone] * ECG AND WAVEFORMS - TELEMETRY (02/16/2025 7:55 AM EDT) [facility] ECG INTERPRET First Degree Sinus Rhythm [facility] 02/16/2025 7:55 AM EDT Narrative [facility] - 02/16/2025 9:04 AM EDT [facility] [id number] [place] 0.27 QRS 0.16 QT 0.46 See Clinical Report link for waveform capture us Unknown Provider POINT OF CARE CARDIOLOGY Final Result Performing Organization Address [facility] Co de Phone Number [facility] [address] [place] [address] * (ABNORMAL) BASIC METABOLIC PANEL (02/16/2025 3:58 AM EDT) Pathologist [facility] Sodium 133(L) 136 - 145 mmol/L 02/16/2025 4:49 AM EDT [facility] Potassium 5.1(H) 3.5 - 5.0 mmol/L 02/16/2025 4:49 AM EDT [facility] Comment:Hemolysis detected b y analyzer. Hemolysis at this level may increase the potassium concentration > 0.1 mmol/L. Recommend recollection if clinically indicated. Chloride 96(L) 98 - 107 mmol/L 02/16/2025 4:49 AM EDT [facility] Total CO2 22 22 - 29 mmol/L 02/16/2025 4:49 AM EDT [facility] Anion Gap 15 7 - 16 mmol/L 02/16/2025 4:49 AM EDT [facility] Calcium 9.2 8.8 - 10.4 mg/dL 02/16/2025 4:49 AM EDT [facility] Glucose Lvl 211(H) 70 - 99 mg/dL 02/16/2025 4:49 AM EDT [facility] BUN 52(H) 8 - 23 mg/dL 02/16/2025 4:49 AM EDT [facility] Creatinine 1.08 0.67 - 1.30 mg/dL 02/16/2025 4:49 AM EDT [facility] eGFR (CKD-EPIcr 2020) 66 >=60 mL/min/1. 73 m2 02/16/2025 4:49 AM EDT [facility] Comment:Estimated GFR was ca lculated using the CKD-EPIcr (2020) equation refit without race. The equation is recommended by the [employer] - [place] [employer]ph[employer] Task Force. Blood VENOUS BLOOD / Unknown Venipuncture / Unknown 02/16/2025 3:58 AM EDT 02/16/2025 4:27 AM EDT us Litzy Sepulveda EVS MANAGER CHEMISTRY ORDERABLES Final Re sult [facility] [address] [place] [address] * (ABNORMAL) CBC (02/16/2025 3:58 AM EDT) WBC 7.5 3.7 - 10.3 x10(3)/mcL 02/16/2025 4:31 AM EDT [facility] RBC 4.04(L) 4.60 - 6.10 x10(6)/mcL 02/16/2025 4:31 AM EDT [facility] Hgb 12.7(L) 13.7 - 17.5 g/dL 02/16/2025 4:31 AM EDT [facility] Hct 39.4(L) 40.0 - 51.0 % 02/16/2025 4:31 AM EDT [facility] MCV 97.5 80.0 - 100.0 fL 02/16/2025 4:31 AM EDT [facility] MCH 31.4 26.0 - 34.0 pg 02/16/2025 4:31 AM EDT [facility] MCHC 32.2 30.7 - 35.5 g/dL 02/16/2025 4:31 AM EDT [facility] RDW 13.8 <=14.9 % 02/16/2025 4:31 AM EDT [facility] Platelet 261 155 - 369 x10(3)/mcL 02/16/2025 4:31 AM EDT [facility] MPV 9.6 8.8 - 12.5 fL 02/16/2025 4:31 AM EDT [facility] Blood VENOUS BLOOD / Unknown Venipuncture / Unknown 02/16/2025 3:58 AM EDT 02/16/2025 4:26 AM EDT us Litzy Sepulveda EVS MANAGER HEMATOLOGY ORDERABLES Final R esult [facility] [address] [place], [place] [id number] * ECG AND WAVEFORMS - TELEMETRY (02/16/2025 1:00 AM EDT) ECG INTERPRET First Degree Sinus Rhythm [facility] 02/16/2025 1:00 AM EDT Narrative [facility] - 02/16/2025 3:44 AM EDT Admission/1st AVB/IVCD/PVC/qj [place] 0.27 QRS 0.15 RR 0.86 QT 0.45 QTc 0.48 See Clinical Report link for waveform capture us Unknown Provider POINT OF CARE CARDIOLOGY Final Result Performing Organization Address City/State/[facility] Co de Phone Number [facility] [address] [place] [address] documented in this encounter Visit Diagnoses Diagnosis Right hip pain- Primary Pain in joint, pelvic region and thigh Benign prostatic hyperplasia, unspecified whether lower urinary tract symptoms present Paroxysmal A-fib (HCC) Atrial fibrillation 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) Dysphagia, unspecified type Rash Rash and other nonspecific skin eruption Hyperkalemia Hyperpotassemia Environmental allergies Allergic rhinitis, cause unspecified Type 2 diabetes mellitus with diabetic polyneuropathy, without long-term current use of insulin (HCC) Mood disorder Unspecified episodic mood disorder Major neurocognitive disorder (HCC) Dyslipidemia Other and unspecified hyperlipidemia NIGHAT (obstructive sleep apnea) Obstructive sleep apnea (adult) (pediatric) Right hip pain Pain in joint, pelvic region and thigh Right hip joint effusion Effusion of pelvic joint NIGHAT (obstructive sleep apnea) Obstructive sleep apnea (adult) (pediatric) Dyslipidemia Other and unspecified hyperlipidemia Major neurocognitive disorder (HCC) Mood disorder Unspecified episodic mood disorder Type 2 diabetes mellitus with diabetic polyneuropathy, without long-term current use of insulin (HCC) Environmental allergies Allergic rhinitis, cause unspecified Hyperkalemia Hyperpotassemia Rash Rash and other nonspecific skin eruption Dysphagia Dysphagia, unspecified 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) Paroxysmal A-fib (HCC) Atrial fibrillation BPH (benign prostatic hyperplasia) Unspecified hyperplasia of prostate without urinary obstruction and other lower urinary tract symptoms (LUTS) MSSA (methicillin susceptible Staphylococcus aureus) infection Methicillin susceptible Staphylococcus aureus in conditions classified elsewhere and of unspecified site Conjunctival hyperemia of right eye Hyperemia of conjunctiva Hypotension Hypotension, unspecified Other chest pain Abdominal pain Abdominal pain, unspecified site Troponin level elevated Other abnormal blood chemistry Bilateral pleural effusion Unspecified pleural effusion Severe aortic stenosis Aortic valve disorders Severe mitral regurgitation Mitral valve disorders Acute pulmonary embolism without acute cor pulmonale (HCC) Chest pain, precordial Precordial pain Dilated cardiomyopathy (HCC) Other primary cardiomyopathies documented in this encounter Admitting Diagnoses Diagnosis Right hip pain Pain in joint, pelvic region and thigh documented in this encounter Administered Medications Inactive Administered Medications - up to 1 most recent administrations Medication Order MAR Action Action Date Dose Rate Site 0.9 % NaCl infusion Intravenous, at 50 mL/hr, CONTINUOUS, Starting on Vianey 02/26/25 at 1715, Until Sun02/27/25 at 1314 Rate/Dose Verify 02/27/2025 7:58 AM EDT 50 mL/hr 0.9 % NaCl infusion Intravenous, at 75 mL/hr, CONTINUOUS, Starting on Sun02/27/25 at 1830, Until Sun03/01/25 at 1428 New Bag 03/01/2025 3:03 AM EDT 75 mL/hr acetaminophen (TYLENOL) tablet 650 mg 650 mg, Oral, EVERY 4 HOURS PRN, Starting on Sun02/18/25 at 1241, Until Sun03/08/25 at 1814, Pain, Fever, Headaches, Maximum adult dose of acetaminophen is 4000 mg from all sources in 24 hours. Given 03/01/2025 8:06 AM EDT 650 mg alteplase (ACTIVASE) injection 1 mg 1 mg, Intercatheter, PRN, Starting on Vianey 02/26/25 at 1125, Until Sun03/08/25 at 1814, Clotted line, For catheter occlusion. Instill alteplase into occluded catheter and allow to dwell for 30 minutes. If catheter function not restored, continue to dwell for an additional 90 minutes (120 minutes total). May repeat x 1 for a total of 2 mg. Contact pharmacy for dose. aluminum & magnesium hydroxide-simethicone 200-200-20 mg/5 mL suspension 30 mL 30 mL, Oral, EVERY 4 HOURS PRN, Starting on Sun02/22/25 at 1327, Until Sun03/08/25 at 1814, Indigestion, Shake well., Post-op Given 03/01/2025 9:08 AM EDT 30 mL apixaban (ELIQUIS) tablet 10 mg 10 mg, Oral, 2 TIMES DAILY, 14 doses, First dose on Sun03/02/25 at 1245, Last dose on Sun03/08/25 at 2100, Please turn off heparin gtt when first dose of apixaban is given. Given 03/08/2025 10:02 AM EDT 10 mg apixaban (ELIQUIS) tablet 2.5 mg 2.5 mg, Oral, 2 TIMES DAILY, First dose on Sun02/23/25 at 0900, Until Discontinued, Resume half dose eliquis POD1 until POD14, Post-op Given 03/01/2025 8:06 AM EDT 2.5 mg apixaban (ELIQUIS) tablet 5 mg 5 mg, Oral, 2 TIMES DAILY, First dose on Sun02/19/25 at 2100, Until Discontinued Given 02/21/2025 9:09 AM EDT 5 mg apixaban (ELIQUIS) tablet 5 mg 5 mg, Oral, 2 TIMES DAILY, First dose on Sun03/09/25 at 0900, Until Discontinued aspirin EC tablet 81 mg 81 mg, Oral, DAILY, First dose on Sun03/02/25 at 1230, Until Discontinued, Do not crush or chew. Given 03/08/2025 10:02 AM EDT 81 mg atorvastatin (LIPITOR) tablet 40 mg 40 mg, Oral, DAILY, First dose on Sun02/16/25 at 0900, Until Discontinued Given 03/08/2025 10:02 AM EDT 40 mg bacitracin-polymyxin b (POLYSPORIN) ophthalmic ointment Left Eye, 2 TIMES DAILY, 14 doses, First dose on Sun02/20/25 at 1245, Last dose on Sun02/26/25 at 2100 Given 02/23/2025 8:39 AM EDT Left Eye bacitracin-polymyxin b (POLYSPORIN) ophthalmic ointment Right Eye, 2 TIMES DAILY, 7 doses, First dose (after last modification) on Sun02/23/25 at 2300, Last dose on Sun02/26/25 at 2100 Given 02/24/2025 8:27 AM EDT Right Eye bacitracin-polymyxin b (POLYSPORIN) ophthalmic ointment Right Eye, 3 TIMES DAILY, 15 doses, First dose (after last modification) on Sun02/24/25 at 1400, Last dose on Sun03/01/25 at 0900 Given 03/01/2025 9:00 AM EDT Right Eye bisacodyL (DULCOLAX) EC tablet 10 mg 10 mg, Oral, 2 TIMES DAILY, First dose on Sun02/24/25 at 0900, Until Discontinued, Start 48 hours post-op. Hold if patient has had bowel movement. Nurse may select tablet or suppository., Post-op Given During Downtime 03/04/2025 9:14 PM EDT 10 mg bisacodyL (DULCOLAX) suppository 10 mg 10 mg, Rectal, 2 TIMES DAILY, First dose on Sun02/24/25 at 0900, Until Discontinued, Start 48 hours post-op. Hold if patient has had bowel movement. Nurse may select tablet or suppository., Post-op Given 03/04/2025 5:10 PM EDT 10 mg calcium carbonate-vitamin D 500 mg-5 mcg (200 unit) per tablet 1 Tablet 1 Tablet, Oral, DAILY WITH MEAL, First dose on Sun02/16/25 at 0800, Until Discontinued, Therapeutic interchange for calcium carbonate 250 mg + D (Os-socorro 250 +D) oral Given 03/08/2025 10:02 AM EDT 1 Tablet ceFAZolin (ANCEF) IVPB 1 g 1 g, Intravenous, EVERY 8 HOURS SCHEDULED (3 times per day), 105 doses, First dose on Sun03/02/25 at 1515, Last dose on Sun04/06/25 at 0600, Administer over 30 Minutes, Reason for Therapy: Infection Documented, Indication: Bacteremia IV Started 03/05/2025 5:59 AM EDT 1 g 100 mL/hr ceFAZolin (ANCEF) IVPB 2 g 2 g, Intravenous, EVERY 8 HOURS SCHEDULED (3 times per day), 125 doses, First dose on Sun02/23/25 at 1545, Last dose on Sun04/05/25 at 2200, Administer over 30 Minutes, Reason for Therapy: Infection Documented, Indication: Skin/soft tissue IV Started 03/01/2025 6:03 AM EDT 2 g 200 mL/hr ceFAZolin (ANCEF) IVPB 2 g 2 g, Intravenous, EVERY 8 HOURS SCHEDULED (3 times per day), 96 doses, First dose (after last modification) on Sun03/05/25 at 1400, Last dose on Sun04/06/25 at 0600, Administer over 30 Minutes, Reason for Therapy: Infection Documented, Indication: Bacteremia IV Started 03/08/2025 1:22 PM EDT 2 g 200 mL/hr ceFEPIme (MAXIPIME) 1 g/50 mL IVPB 1 g, Intravenous, EVERY 8 HOURS SCHEDULED (3 times per day), 21 doses, First dose on Sun03/01/25 at 1100, Last dose on Sun03/08/25 at 1000, Administer over 4 Hours, Reason(s) for using ceFEPime in this patient (if none met, consider using cefTRIAXone, instead): Risk factors for pseudomonal infection (IV antibiotic use within previous 90 days, recent pseudomonal infection, diabetic foot infection), Reason for Therapy: Infection Suspected, Indication: Pneumonia IV Restarted 03/02/2025 11:19 AM EDT 12.5 mL/hr dextrose 50 % solution 25 mL 25 mL, Intravenous, PRN, Starting on Sun02/22/25 at 1214, Until Sun03/08/25 at 1814, Low blood sugar, If FSBS less than 70 mg/dl and patient cannot take orally, Check FSBS every 15 minutes and repeat 25 mL of D50 IV push and notify physician if FSBS less than 70 mg/dL VESICANT Given 03/02/2025 12:39 PM EDT 25 mL diphenhydrAMINE (BENADRYL) tablet 25 mg 25 mg, Oral, ONCE PRN, 1 dose, Starting on Sun02/20/25 at 2040, Until Sun02/20/25 at 2250, Sleep Given 02/20/2025 10:50 PM EDT 25 mg docusate sodium (COLACE) capsule 100 mg 100 mg, Oral, 2 TIMES DAILY, First dose on Sun02/22/25 at 2100, Until Discontinued, Do not crush or chew., Post-op Given 03/08/2025 10:02 AM EDT 100 mg donepeziL (ARICEPT) tablet 5 mg 5 mg, Oral, NIGHTLY, First dose on Sun02/16/25 at 0230, Until Discontinued Given 03/07/2025 9:54 PM EDT 5 mg DULoxetine (CYMBALTA) capsule 60 mg 60 mg, Oral, DAILY, First dose on Sun02/16/25 at 0900, Until Discontinued Given 03/08/2025 10:02 AM EDT 60 mg fentaNYL (SUBLIMAZE) injection 50 mcg 50 mcg, Intravenous, EVERY 5 MIN PRN, Starting on Sun02/22/25 at 1006, Until Sun02/22/25 at 1304, Pain, For initial pain. Maximum dose not to exceed 100 mcg., PACU Given 02/22/2025 11:10 AM EDT 50 mcg fUROsemide (LASix) tablet 20 mg 20 mg, Oral, DAILY, First dose on Sun02/16/25 at 0900, Until Discontinued, Hold for SBP less than 100 Given 03/01/2025 8:06 AM EDT 20 mg gadoterate meglumine (DOTAREM) solution 20 mL 20 mL, Intravenous, ONCE PRN, 1 dose, Starting on Sun02/18/25 at 1835, Until Sun02/18/25 at 1836, Radiology Procedure, VESICANT , MRI (Contrasts) Given 02/18/2025 6:36 PM EDT 20 mL glucagon (GLUCAGEN) injection 1 mg 1 mg, Intramuscular, PRN, Starting on Sun02/22/25 at 1214, Until Sun03/08/25 at 1814, Low blood sugar, If FSBS less than 70 mg/dl, patient cannot take orally and without IV access, If patient is without IV access, give Glucagon 1 mg Intramuscularly, insert IV and call physician. heparin 25,000 units in 250 mL 0.45% NaCl 12 Units/kg/hr 114.2 kg (13.704 mL/hr, rounded to 13.7 mL/hr), Intravenous, CONTINUOUS, Starting on Sun03/01/25 at 2100, Until Sun03/02/25 at 0725 Rate/Dose Verify 03/01/2025 11:47 PM EDT 12 Units/kg/hr 13.7 mL/hr heparin 25,000 units in 250 mL 0.45% NaCl 1,600 Units/hr (16 mL/hr), Intravenous, CONTINUOUS, Starting on Sun03/02/25 at 0730, Until Sun03/02/25 at 1244 IV Restarted 03/02/2025 11:48 AM EDT 1,600 Units/hr 16 mL/hr insulin aspart U-100 (NovoLOG) injection 1-10 Units 1-10 Units, Subcutaneous, PREPROCEDURE, 1 dose, Starting on Sun02/22/25 at 0757, Until Sun02/22/25 at 0817, Other, Pre-op Hyperglycemia Correction, 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: FSBS Correction 121-149 1 unit 150-199 2 units 200-250 4 units 251-300 6 units 301-350 8 units 351-400 10 units Greater than 400___notify anesthesiologist Waste Sort Code = ANTELMO MEREDITH 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 Do not use NPO dosing If patient receiving TPN or tube feeds. Correction insulin doses must be by at least 3 hours. Waste Sort Code = ANTELMO MEREDITH Hazardous Waste [employer] Given 03/08/2025 8:00 AM EDT 3 Units Abdominal Tissue insulin glargine U-100 (LANTUS) injection 10 Units 10 Units, Subcutaneous, EVERY EVENING (INSULIN), First dose on 02/22/25 at 1900, Until Discontinued, A blood sugar is not required prior to administering the Lantus dose. Assess the trend of blood sugars within the last 24 hours. If 2 out of 3 blood sugars are less than (<) 120, contact pharmacy to decrease the total Lantus dose by 20%. Waste Sort Code = BKC Given 02/23/2025 6:58 PM EDT 10 Units Abdominal Tissue insulin glargine U-100 (LANTUS) injection 10 Units 10 Units, Subcutaneous, 2 TIMES DAILY (INSULIN), First dose (after last modification) on Sun02/24/25 at 0700, Until Discontinued, A blood sugar is not required prior to administering the Lantus dose. Assess the trend of blood sugars within the last 24 hours. If 2 out of 3 blood sugars are less than (<) 120, contact pharmacy to decrease the total Lantus dose by 20%. Waste Sort Code = BKC Given 03/01/2025 6:02 AM EDT 10 Units Abdominal Tissue insulin glargine U-100 (LANTUS) injection 5 Units 5 Units, Subcutaneous, ONCE, 1 dose, On Sun02/23/25 at 2300, A blood sugar is not required prior to administering the Lantus dose. Assess the trend of blood sugars within the last 24 hours. If 2 out of 3 blood sugars are less than (<) 120, contact pharmacy to decrease the total Lantus dose by 20%. Waste Sort Code = BKC Given 02/23/2025 10:50 PM EDT 5 Units Right Arm insulin glargine U-100 (LANTUS) injection 8 Units 8 Units, Subcutaneous, 2 TIMES DAILY (INSULIN), First dose (after last modification) on Sun03/02/25 at 0900, Until Discontinued, A blood sugar is not required prior to administering the Lantus dose. Assess the trend of blood sugars within the last 24 hours. If 2 out of 3 blood sugars are less than (<) 120, contact pharmacy to decrease the total Lantus dose by 20%. Waste Sort Code = BKC Given 03/08/2025 6:52 AM EDT 8 Units Abdominal Tissue iopamidol (ISOVUE-300) oral contrast 30 mL 30 mL, Oral, ONCE, 1 dose, On Sun03/01/25 at 1500, Dilute 30 mL Isovue 300 in 32 ounces (950 mL) of water prior to administration. For oral administration only. DO NOT GIVE IV! Given 03/01/2025 3:09 PM EDT 30 mL iopamidoL (ISOVUE-370) 370 mg iodine /mL (76 %) injection (LOW) 100 mL 100 mL, Intravenous, ONCE PRN, 1 dose, Starting on Sun03/01/25 at 1619, Until Sun03/01/25 at 1636, Radiography/Imaging, Radiology Procedure, VESICANT , CT (Contrasts) Given 03/01/2025 4:36 PM EDT 100 mL ketorolac (ACULAR) 0.5 % ophthalmic solution 1 Drop 1 Drop, Right Eye, 4 TIMES DAILY, First dose on Sun03/06/25 at 1830, Until Discontinued Given 03/08/2025 9:00 AM EDT 1 Drop Right Eye lidocaine 10 mg/mL (1 %) injection (PF) 10 mg 10 mg (1 mL), Subcutaneous, ONCE, 1 dose, On Sun02/26/25 at 1300, Use 1% Lidocaine 1 mL intradermally and subcutaneously at insertion site for local anesthetic. Given 02/26/2025 11:26 AM EDT 10 mg Right Arm magnesium citrate solution 296 mL 296 mL, Oral, ONCE, 1 dose, On Sun03/03/25 at 1100 Started 03/03/2025 12:00 PM EDT 296 mL magnesium hydroxide (MILK OF MAGNESIA) 400 mg/5 mL suspension 30 mL 30 mL, Oral, DAILY, First dose on Sun02/23/25 at 0900, Until Discontinued, Start POD #1. Hold if patient has had bowel movement., Post-op Given 03/04/2025 9:06 AM EDT 30 mL melatonin tablet 5 mg 5 mg, Oral, NIGHTLY PRN, Starting on Sun02/16/25 at 0214, Until Sun02/20/25 at 2041, Sleep Given 02/20/2025 12:29 AM EDT 5 mg melatonin tablet 5-10 mg 5-10 mg, Oral, NIGHTLY PRN, Starting on Sun02/26/25 at 0102, Until Sun03/08/25 at 1814, Sleep Given 03/07/2025 9:55 PM EDT 5 mg metFORMIN (GLUCOPHAGE) tablet 500 mg 500 mg, Oral, 2 TIMES DAILY, First dose on Sun02/25/25 at 2100, Until Discontinued, For procedures using IV iodinated contrast: hold metformin at the time of or prior to the procedure, and for 48 hours after. Inform MD Take with food. Given 03/01/2025 8:06 AM EDT 500 mg metroNIDAZOLE (FLAGYL) IVPB 500 mg 500 mg, Intravenous, EVERY 8 HOURS SCHEDULED (3 times per day), 21 doses, First dose on Sun03/01/25 at 1400, Last dose on Sun03/08/25 at 0600, Administer over 30 Minutes, VESICANT , Reason for Therapy: Infection Suspected, Indication: Pneumonia IV Started 03/02/2025 1:07 PM EDT 500 mg 200 mL/hr miconazole (MICATIN) 2 % powder Topical, 2 TIMES DAILY, 84 doses, First dose on 03/01/25 at 2100, Last dose on 04/12/25 at 0900, Application site: Nela area Given 03/08/2025 9:00 AM EDT midodrine (PROAMATINE) tablet 2.5 mg 2.5 mg, Oral, 3 TIMES DAILY WITH MEALS, First dose on 02/28/25 at 1800, Until Discontinued Given 03/01/2025 8:06 AM EDT 2.5 mg midodrine (PROAMATINE) tablet 5 mg 5 mg, Oral, 3 TIMES DAILY WITH MEALS, First dose (after last modification) on 03/01/25 at 1200, Until Discontinued Given 03/01/2025 2:11 PM EDT 5 mg midodrine (PROAMATINE) tablet 7.5 mg 7.5 mg, Oral, 3 TIMES DAILY WITH MEALS, First dose (after last modification) on 03/01/25 at 1800, Until Discontinued Given 03/08/2025 10:02 AM EDT 7.5 mg mupirocin (BACTROBAN) 2 % ointment Nasal, EVERY 12 HOURS SCHEDULED (2 times per day), 10 doses, First dose on 02/22/25 at 2100, Last dose on Sun02/27/25 at 0900, Post-op Given 02/26/2025 9:00 AM EDT Both Nares mupirocin (BACTROBAN) 2 % ointment Nasal, 2 TIMES DAILY, 10 doses, First dose on Vianey 02/26/25 at 1300, Last dose on 03/02/25 at 2100 Given 03/02/2025 8:46 AM EDT Both Nares oxyCODONE (ROXICODONE) immediate release tablet 5 mg 5 mg, Oral, EVERY 4 HOURS PRN, Starting on Sun02/18/25 at 1241, Until 02/22/25 at 1348, Pain Unrelieved by Oral Non-Opioid Therapy Given 02/21/2025 9:26 PM EDT 5 mg oxyCODONE (ROXICODONE) immediate release tablet 5 mg 5 mg, Oral, EVERY 30 MIN PRN, 2 doses, Starting on 02/22/25 at 1006, Until 02/22/25 at 1304, Pain, When tolerating oral intake. Maximum dose not to exceed 10 mg unless otherwise directed by the Anesthesia Coordinator., PACU Given 02/22/2025 11:10 AM EDT 5 mg oxyCODONE (ROXICODONE) immediate release tablet 5-10 mg 5-10 mg, Oral, EVERY 3 HOURS PRN, Starting on 02/22/25 at 1327, Until 03/08/25 at 1814, Pain, Begin with lowest dose unless otherwise directed. Reassess pain in one hour. If pain unrelieved, remainder of dose may be given to patient., Post-op Given 03/07/2025 9:55 PM EDT 10 mg pantoprazole (PROTONIX) tablet 40 mg 40 mg, Oral, DAILY, First dose on 02/28/25 at 1700, Until Discontinued, Do not crush or chew Given 03/08/2025 9:00 AM EDT 40 mg perflutren lipid microspheres (DEFINITY) 1.3 mL in sodium chloride 0.9% 10 mL injection 10 mL, Injection, ONCE, 1 dose, On 03/01/25 at 1630, Bring vial to room temperature. Shake for 45 seconds using Vialmix apparatus. FIRST withdraw 8.7 mL of 0.9% NaCl into a 10-mL syringe. SECOND, vent the activated vial using an 18- or 20-gauge needle tip. THIRD, attach second 18- or 20-gauge needle to 10-ml syringe and insert in vial. Invert vial, and slowly withdraw 1.3 ml activated product. Do NOT inject air into vial. Gently hand agitate then administer ordered dose. VESICANT , Echo Meds Given 03/01/2025 3:08 PM EDT 2 mL piperacillin-tazobacta m in dextrose (ZOSYN) IVPB 3.375 g 3.375 g, Intravenous, EVERY 8 HOURS SCHEDULED (3 times per day), 21 doses, First dose on Vianey 02/19/25 at 1115, Last dose on Vianey 02/26/25 at 0800, Administer over 4 Hours, piperacillin-tazobacta m EXTENDED INFUSION - Administer over 4 hours VESICANT , Reason for Therapy: Infection Suspected, Indication: Skin/soft tissue Rate/Dose Verify 02/23/2025 1:58 PM EDT 12.5 mL/hr polyethylene glycol (GLYCOLAX, MIRALAX) packet 17 g 17 g, Oral, DAILY, First dose on Sun02/16/25 at 1215, Until Discontinued, Mix in 8 oz of water Given 03/07/2025 8:45 AM EDT 17 g polyvinyl alcohol (LIQUIFILM TEARS) 1.4 % ophthalmic solution 1 Drop 1 Drop, Both Eyes, PRN, Starting on Sun02/16/25 at 0214, Until Vianey 03/05/25 at 1624, Dry Eyes Given 02/23/2025 9:22 PM EDT 1 Drop Both Eyes polyvinyl alcohol (LIQUIFILM TEARS) 1.4 % ophthalmic solution 1 Drop 1 Drop, Both Eyes, EVERY 6 HOURS PRN, Starting on Sun03/05/25 at 1624, Until Sun03/06/25 at 1653, Dry Eyes Given 03/06/2025 6:19 AM EDT 1 Drop Both Eyes senna (SENOKOT) tablet 17.2 mg 17.2 mg, Oral, 2 TIMES DAILY, First dose on Sun02/16/25 at 1215, Until Discontinued Given During Downtime 03/04/2025 9:14 PM EDT 17.2 mg senna (SENOKOT) tablet 2 Tablet 2 Tablet, Oral, NIGHTLY, 2 doses, First dose on Sun02/22/25 at 2100, Last dose on Sun02/23/25 at 2100, Post-op Given 02/22/2025 9:42 PM EDT 2 Tablets sodium chloride 0.9 % 1,000 mL IV bolus Intravenous, ONCE, 1 dose, On Sun03/01/25 at 1100, at 1,935.5 mL/hr IV Started 03/01/2025 9:25 AM EDT 1935.5 mL/hr sodium chloride 0.9 % 250 mL IV bolus Intravenous, PRN, Starting on Sun03/02/25 at 1645, Until Sun03/08/25 at 1814, at 245.9 mL/hr IV Started 03/02/2025 4:30 PM EDT 245.9 mL/hr sodium chloride 0.9% IV line flush 20-50 mL 20-50 mL, Intravenous, at 150-600 mL/hr, PRN, Starting on 02/21/25 at 0237, Until Sun03/08/25 at 1814, Line Care, Flush with a minimum of 20 mL after IVPB to insure complete administration of the dose. May use the saline infusion to back flush IVPB tubing as needed. IV Restarted 02/25/2025 2:47 PM EDT 150 mL/hr sodium chloride 0.9% IV line flush 20-50 mL 20-50 mL, Intravenous, at 150-600 mL/hr, PRN, Starting on [place] 02/26/25 at 1125, Until 03/08/25 at 1814, Line Care, Flush with a minimum of 20 mL after IVPB to insure complete administration of the dose. May use the saline infusion to back flush IVPB tubing as needed. IV Restarted 03/02/2025 7:50 AM EDT 10 mL/hr sodium chloride 0.9% syringe 10 mL 10 mL, Intravenous, EVERY 8 HOURS SCHEDULED (3 times per day), First dose on [place] 02/26/25 at 1400, Until Discontinued, Saline locked lumens on central lines should be checked for blood return and flushed every 8 hours. Lumens with running IVF/drips should be checked for blood return and flushed whenever tubing is changed, a minimum of every 7 days. Given 03/08/2025 2:00 PM EDT 10 mL sodium chloride 0.9% syringe Intravenous, ONCE PRN, 1 dose, Starting on Sun02/18/25 at 1835, Until Sun02/18/25 at 1836, Line Care, Flush peripheral lines every 12 hours, central lines every 8 hours, and after IV medication, MRI (Contrasts) Given 02/18/2025 6:36 PM EDT 10 mL sodium chloride 0.9% syringe Intravenous, PRN, Starting on [place] 02/26/25 at 1125, Until 03/08/25 at 1814, Line Care, Flush with 5-10 mL saline pre/post IVP, 10 mL prior to IVPB or blood product administration, and 20 mL post blood draws for CENTRAL lines. Given 03/06/2025 6:19 AM EDT 10 mL sodium chloride 0.9% syringe Intravenous, EVERY 12 HOURS SCHEDULED (2 times per day), First dose on Sun03/01/25 at 2100, Until Discontinued, Flush with 3-5 mL saline for PERIPHERAL saline lock maintenance. Given 03/08/2025 9:00 AM EDT sodium chloride 0.9% syringe Intravenous, PRN, Starting on Sun03/01/25 at 1447, Until Sun03/08/25 at 1814, Line Care, Flush with 5-10 mL saline pre/post IVP, and 5 mL prior to IVPB or blood product administration. sodium chloride 0.9% syringe Intravenous, ONCE PRN, 1 dose, Starting on Sun03/01/25 at 1619, Until Sun03/01/25 at 1637, Line Care, Flush peripheral lines every 12 hours, central lines every 8 hours, and after IV medication, CT (Contrasts) Given 03/01/2025 4:37 PM EDT 10 mL sterile water injection 1 mL 1 mL, Injection, PRN, Starting on Sun02/22/25 at 1214, Until Sun03/08/25 at 1814, Use for drug dilution, Use to dilute and administer glucagon injection tamsulosin (FLOMAX) capsule 0.4 mg 0.4 mg, Oral, DAILY, First dose (after last modification) on Sun03/02/25 at 0900, Until Discontinued, Hold for SBP less than 100 Capsule should be swallowed whole, do not open Given 03/08/2025 10:02 AM EDT 0.4 mg tamsulosin (FLOMAX) capsule 0.8 mg 0.8 mg, Oral, DAILY, First dose on Sun02/16/25 at 0900, Until Discontinued, Capsule should be swallowed whole, do not open Given 03/01/2025 8:06 AM EDT 0.8 mg tobramycin-dexamethaso ne (TOBRADEX) ophthalmic ointment Right Eye, 3 TIMES DAILY, 15 doses, First dose on Sun02/27/25 at 1400, Last dose on Sun03/04/25 at 0900 Given 03/04/2025 9:07 AM EDT Right Eye vancomycin (VANCOCIN) 2,000 mg in sodium chloride 0.9 % 550 mL IVPB 2,000 mg, Intravenous, ONCE, 1 dose, On Sun02/19/25 at 1100, Administer over 120 Minutes, VESICANT , Reason for Therapy: Infection Suspected, Indication: Skin/soft tissue IV Restarted 02/19/2025 5:03 PM EDT 275 mL/hr vancomycin (VANCOCIN) 2,000 mg in sodium chloride 0.9 % 550 mL IVPB 2,000 mg, Intravenous, ONCE, 1 dose, On Sun03/01/25 at 1100, Administer over 120 Minutes, VESICANT , Reason for Therapy: Infection Suspected, Indication: Sepsis IV Started 03/01/2025 3:23 PM EDT 2,000 mg 275 mL/hr vancomycin in dextrose 5% (VANCOCIN) premix IVPB 1,500 mg 1,500 mg, Intravenous, EVERY 18 HOURS, 10 doses, First dose on Sun02/20/25 at 0800, Last dose on Sun02/27/25 at 0200, Administer over 120 Minutes, VESICANT , Reason for Therapy: Infection Suspected, Indication: Skin/soft tissue IV Started 02/21/2025 2:39 AM EDT 1,500 mg 150 mL/hr vancomycin in sodium chloride 0.9% premix IVPB 1,750 mg 1,750 mg, Intravenous, EVERY 18 HOURS, 8 doses, First dose (after last modification) on Sun02/21/25 at 2000, Last dose on Sun02/27/25 at 0200, Administer over 120 Minutes, VESICANT , Reason for Therapy: Infection Suspected, Indication: Skin/soft tissue IV Started 02/23/2025 8:39 AM EDT 1,750 mg 125 mL/hr vancomycin in sodium chloride 0.9% premix IVPB 1,750 mg 1,750 mg, Intravenous, EVERY 18 HOURS, 7 doses, First dose on Sun03/02/25 at 0500, Last dose on Sun03/06/25 at 1700, Administer over 120 Minutes, VESICANT , Reason for Therapy: Infection Suspected, Indication: Pneumonia IV Restarted 03/02/2025 6:22 AM EDT 125 mL/hr documented in this encounter Discontinued Medications Medication Sig Discontinue Reason Start Date End Da te apixaban (ELIQUIS) 5 mg Oral Tablet Take 5 mg by mouth 2 times daily. 02/22/2025 documented as of this encounter Historical Medications * This list may reflect changes made after this encounter. calcium carbonate-vitamin D3 250 mg-3.125 mcg (125 unit) Oral Tablet Take 1 Tablet by mouth daily. polyvinyl alcohol (LIQUIFILM TEARS) 1.4 % Opht Drops Place 1 Drop into both eyes as needed for Dry Eyes. fluticasone propionate (FLONASE) 50 mcg/actuation Nasl [place], Suspension 2 Sprays by Nasal route 2 times daily as needed for Allergies. donepeziL (ARICEPT) 5 mg Oral Tablet Take 5 mg by mouth nightly. tamsulosin (FLOMAX) 0.4 mg Oral Capsule Take 0.8 mg by mouth daily. metFORMIN (GLUCOPHAGE) 500 mg Oral Tablet Take 500 mg by mouth 2 times daily. DULoxetine (CYMBALTA) 60 mg Oral Capsule, Delayed Release(E.C.) Take 60 mg by mouth daily. atorvastatin (LIPITOR) 40 mg Oral Tablet Take 40 mg by mouth daily. fUROsemide (LASIX) 20 mg Oral Tablet Take 20 mg by mouth daily. apixaban (ELIQUIS) 5 mg Oral Tablet Take 5 mg by mouth 2 times daily. 02/22/2025 added in this encounter Active and Recently Administered Medications Times are shown in EDT. Scheduled Medication Order 03/06/2025 03/07/2025 03/08/2025 apixaban (ELIQUIS) tablet 10 mg(Linked Group 1) 10 mg, Oral, 2 TIMES DAILY, 14 doses, First dose on Sun03/02/25 at 1245, Last dose on Sun03/08/25 at 2100, Please turn off heparin gtt when first dose of apixaban is given. 0934 (Given - Provider: Tita Rhodes RN)2111 (Given - Provider: Marisol Machado RN) 0849 (Given - Provider: Blanca Powell RN)2154 (Given - Provider: Marisol Machado, ELLEN) 1002 (Given - Provider: Tita Rhodes RN) apixaban (ELIQUIS) tablet 5 mg(Linked Group 1) 5 mg, Oral, 2 TIMES DAILY, First dose on Sun03/09/25 at 0900, Until Discontinued aspirin EC tablet 81 mg 81 mg, Oral, DAILY, First dose on Sun03/02/25 at 1230, Until Discontinued, Do not crush or chew. 0934 (Given - Provider: Tita Rhodes RN) 0846 (Given - Provider: Blanca Powell RN) 1002 (Given - Provider: Tita Rhodes RN) atorvastatin (LIPITOR) tablet 40 mg 40 mg, Oral, DAILY, First dose on Sun02/16/25 at 0900, Until Discontinued 0935 (Given - Provider: Tita Rhodes RN) 0846 (Given - Provider: Blanca Powell, RN) 1002 (Given - Provider: Tita Rhodes RN) bisacodyL (DULCOLAX) EC tablet 10 mg(Linked Group 2) 10 mg, Oral, 2 TIMES DAILY, First dose on Sun02/24/25 at 0900, Until Discontinued, Start 48 hours post-op. Hold if patient has had bowel movement. Nurse may select tablet or suppository., Post-op 899 (Not Given - Provider: Tita Rhodes RN - Reason: Patient Declined - Comment: only asking for colace)2111 (Not Given - Provider: Marisol Machado RN - Reason: Patient Declined) 845 (Not Given - Provider: Blanca Powell RN - Reason: Patient Declined - Comment: patient last BM 03/06/25)2156 (Not Given - Provider: Marisol Machado RN - Reason: Patient Declined) 09 (Not Given - Provider: Ludmila Escudero RN - Reason: Patient Declined) bisacodyL (DULCOLAX) suppository 10 mg(Linked Group 2) 10 mg, Rectal, 2 TIMES DAILY, First dose on Sun02/24/25 at 0900, Until Discontinued, Start 48 hours post-op. Hold if patient has had bowel movement. Nurse may select tablet or suppository., Post-op 899 (See Alternative - Provider: Tita Rhodes RN)2111 (See Alternative - Provider: Marisol Machado RN) 845 (See Alternative - Provider: Blanca Powell RN)2156 (See Alternative - Provider: Marisol Machado RN) 0900 (See Alternative - Provider: Ludmila Escudero RN) calcium carbonate-vitamin D 500 mg-5 mcg (200 unit) per tablet 1 Tablet 1 Tablet, Oral, DAILY WITH MEAL, First dose on Sun02/16/25 at 0800, Until Discontinued, Therapeutic interchange for calcium carbonate 250 mg + D (Os-socorro 250 +D) oral 0934 (Given - Provider: Tita Rhodes RN) 0847 (Given - Provider: Blanca Powell RN) 1002 (Given - Provider: Tita Rhodes RN) ceFAZolin (ANCEF) IVPB 2 g 2 g, Intravenous, EVERY 8 HOURS SCHEDULED (3 times per day), 96 doses, First dose (after last modification) on [place] 03/05/25 at 1400, Last dose on Sun04/06/25 at 0600, Administer over 30 Minutes, Reason for Therapy: Infection Documented, Indication: Bacteremia 0623 (IV Started - Provider: Dolly Gibson RN)0653 (Stopped - Provider: Tita Rhodes RN)1528 (IV Started - Provider: Yolanda Castillo RN)1558 (Stopped - Provider: Tita Rhodes RN)2123 (IV Started - Provider: Marisol Machado, ELLEN)2124 (Rate/Dose Verify - Provider: Blanca Powell RN)2153 (Stopped - Provider: Marisol Machado RN) 0500 (IV Started - Provider: Marisol Machado, ELLEN)0530 (Stopped - Provider: Marisol Machado, RN)1455 (IV Started - Provider: Blanca Powell RN)1525 (Stopped - Provider: Blanca Powell RN)2203 (IV Started - Provider: Marisol Machado, ELLEN)2233 (Stopped - Provider: Marsiol Machado, ELLEN) 0653 (IV Started - Provider: Marisol Machado, ELLEN)0723 (IV Stopped by Other - Provider: Ludmila Escudero RN)1322 (IV Started - Provider: Tita Rhodes, ELLEN)1352 (Due: Stopped - Provider: Tita Rhodes RN)1814 (Due: Stopped) docusate sodium (COLACE) capsule 100 mg 100 mg, Oral, 2 TIMES DAILY, First dose on Sun02/22/25 at 2100, Until Discontinued, Do not crush or chew., Post-op 0934 (Given - Provider: Tita Rhodes RN)2113 (Not Given - Provider: Marisol Machado RN - Reason: Patient Declined) 0846 (Not Given - Provider: Blanca Powell RN - Reason: Patient Declined - Comment: patient last BM 03/06/25)2155 (Not Given - Provider: Marisol Machado RN - Reason: Patient Declined) 1002 (Given - Provider: Tita Rhodes RN) donepeziL (ARICEPT) tablet 5 mg 5 mg, Oral, NIGHTLY, First dose on Sun02/16/25 at 0230, Until Discontinued 2112 (Given - Provider: Marisol Machado, ELLEN) 2153 (Given - Provider: Marisol Machado, ELLEN) DULoxetine (CYMBALTA) capsule 60 mg 60 mg, Oral, DAILY, First dose on Sun02/16/25 at 0900, Until Discontinued 09 (Given - Provider: Tita Rhodes RN) 0847 (Given - Provider: Blanca Powell, RN) 1002 (Given - Provider: Tita Rhodes RN) insulin aspart U-100 (NovoLOG) injection 1-15 Units 1-15 Units, Subcutaneous, 4 TIMES DAILY WITH MEALS, First dose on Sun02/22/25 at 1215, Until Discontinued, High dose algorithm: FSBS Correction NPO/Bedtime 121-149 2 units 1 units 150-199 3 units 2 units 200-250 6 units 3 units 251-300 9 units 4 units 301-350 12 units 6 units Greater than 350__15 units call MD _8 units call MD Notify physician if FSBS less than 50 or greater than 350. Do not use NPO dosing If patient receiving TPN or tube feeds. Correction insulin doses must be by at least 3 hours. Waste Sort Code = BLACK [employer] Hazardous Waste Container 0800 (Not Given - Provider: Tita Rhodes RN - Reason: Order parameters not met)1234 (Given - Provider: Tita Rhodes RN)1800 (Given - Provider: Tita Rhodes RN)211 (Given - Provider: Marisol Machado RN) 0845 (Given - Provider: Blanca Powell RN)1207 (Given - Provider: Blanca Powell RN)182 (Given - Provider: Blanca Powell RN)2153 (Given - Provider: Marisol Machado RN) 08 (Given - Provider: Tita Rhodes RN)1300 (Due - Provider: Tita Rhodes RN) insulin glargine U-100 (LANTUS) injection 8 Units 8 Units, Subcutaneous, 2 TIMES DAILY (INSULIN), First dose (after last modification) on Sun03/02/25 at 0900, Until Discontinued, A blood sugar is not required prior to administering the Lantus dose. Assess the trend of blood sugars within the last 24 hours. If 2 out of 3 blood sugars are less than (<) 120, contact pharmacy to decrease the total Lantus dose by 20%. Waste Sort Code = BK 0628 (Given - Provider: Dolly Gibson RN)2005 (Given - Provider: Tita Rhodes RN) 06 (Given - Provider: Marisol Machado RN)1820 (Given - Provider: Blanca Powell RN) 0652 (Given - Provider: Marisol Machado RN) ketorolac (ACULAR) 0.5 % ophthalmic solution 1 Drop 1 Drop, Right Eye, 4 TIMES DAILY, First dose on Sun03/06/25 at 1830, Until Discontinued 1829 (Given - Provider: Tita Rhodes RN)2005 (Given - Provider: Tita Rhodes RN) 09 (Given - Provider: Blanca Powell RN)1210 (Given - Provider: Blanca Powell RN)171 (Given - Provider: Blanca Powell RN)2156 (Given - Provider: Marisol Machado RN) 0900 (Given - Provider: Tita Rhodes RN)1300 (Due) miconazole (MICATIN) 2 % powder Topical, 2 TIMES DAILY, 84 doses, First dose on 03/01/25 at 2100, Last dose on 04/12/25 at 0900, Application site: [place] area 899 (Given - Provider: Tita Rhodes RN)2112 (Given - Provider: Marisol Machado RN) 09 (Given - Provider: Blanca Powell RN)2155 (Given - Provider: Marisol Machado RN) 0900 (Given - Provider: Tita Rhodes RN) midodrine (PROAMATINE) tablet 7.5 mg 7.5 mg, Oral, 3 TIMES DAILY WITH MEALS, First dose (after last modification) on 03/01/25 at 1800, Until Discontinued 0934 (Given - Provider: Tita Rhodes RN)1200 (Given - Provider: Tita Rhodes RN)1800 (Not Given - Provider: Tita Rhodes RN - Reason: Order parameters not met) 0847 (Given - Provider: Blanca Powell RN)1209 (Given - Provider: Blanca Powell RN)1716 (Given - Provider: Blanca Powell RN) 1002 (Given - Provider: Tita Rhodes RN)1300 (Not Given - Provider: Tita Rhodes RN - Reason: Order parameters not met) pantoprazole (PROTONIX) tablet 40 mg 40 mg, Oral, DAILY, First dose on 02/28/25 at 1700, Until Discontinued, Do not crush or chew 0934 (Given - Provider: Tita Rhodes RN) 0849 (Given - Provider: Blanca Powell RN) 0900 (Given - Provider: Tita Rhodes RN) polyethylene glycol (GLYCOLAX, MIRALAX) packet 17 g 17 g, Oral, DAILY, First dose on 02/16/25 at 1215, Until Discontinued, Mix in 8 oz of water 0900 (Not Given - Provider: Tita Rhodes RN - Reason: Patient Declined - Comment: only asking for colace) 0845 (Given - Provider: Blanca Powell RN) 0900 (Not Given - Provider: Tita Rhodes RN - Reason: Patient Declined) senna (SENOKOT) tablet 17.2 mg 17.2 mg, Oral, 2 TIMES DAILY, First dose on 02/16/25 at 1215, Until Discontinued 0900 (Not Given - Provider: Tita Rhodes RN - Reason: Patient Declined - Comment: only asking for colace)2114 (Not Given - Provider: Marisol Machado RN - Reason: Patient Declined) 0845 (Not Given - Provider: Blanca Powell RN - Reason: Patient Declined - Comment: patient last BM 03/06/25)2155 (Not Given - Provider: Marisol Machado RN - Reason: Patient Declined) 0900 (Not Given - Provider: Tita Rhodes RN - Reason: Patient Declined) sodium chloride 0.9% syringe 10 mL 10 mL, Intravenous, EVERY 8 HOURS SCHEDULED (3 times per day), First dose on [place] 02/26/25 at 1400, Until Discontinued, Saline locked lumens on central lines should be checked for blood return and flushed every 8 hours. Lumens with running IVF/drips should be checked for blood return and flushed whenever tubing is changed, a minimum of every 7 days. 0618 (Given - Provider: Dolly Gisbon RN)1400 (Given - Provider: Tita Rhodes RN)2114 (Given - Provider: Marisol Machado RN) 0559 (Given - Provider: Marisol Machado, RN)1453 (Given - Provider: Blanca Powell RN)2200 (Not Given - Provider: Marisol Machado RN - Reason: Other - Comment: duplicate) 0652 (Given - Provider: Marisol Machado, ELLEN)1400 (Given - Provider: Tita Rhodes RN) sodium chloride 0.9% syringe Intravenous, EVERY 12 HOURS SCHEDULED (2 times per day), First dose on [place] 03/01/25 at 2100, Until Discontinued, Flush with 3-5 mL saline for PERIPHERAL saline lock maintenance. 0934 (Given - Provider: Tita Rhodes RN)2114 (Given - Provider: Marisol Machado RN) 0904 (Given - Provider: Blanca Powell, ELLEN)2200 (Given - Provider: Marisol Machado, RN) 0900 (Given - Provider: Tita Rhodes RN) tamsulosin (FLOMAX) capsule 0.4 mg 0.4 mg, Oral, DAILY, First dose (after last modification) on Sun03/02/25 at 0900, Until Discontinued, Hold for SBP less than 100 Capsule should be swallowed whole, do not open 0900 (Given - Provider: Tita Rhodes RN) 0849 (Not Given - Provider: Blanca Powell RN - Reason: Order parameters not met - Comment: SBP 94) 1002 (Given - Provider: Tita Rhodes RN) PRN Medication Order 03/06/2025 03/07/2025 03/08/2025 acetaminophen (TYLENOL) tablet 650 mg 650 mg, Oral, EVERY 4 HOURS PRN, Starting on Sun02/18/25 at 1241, Until 03/08/25 at 1814, Pain, Fever, Headaches, Maximum adult dose of acetaminophen is 4000 mg from all sources in 24 hours. alteplase (ACTIVASE) injection 1 mg 1 mg, Intercatheter, PRN, Starting on [place] 02/26/25 at 1125, Until 03/08/25 at 1814, Clotted line, For catheter occlusion. Instill alteplase into occluded catheter and allow to dwell for 30 minutes. If catheter function not restored, continue to dwell for an additional 90 minutes (120 minutes total). May repeat x 1 for a total of 2 mg. Contact pharmacy for dose. aluminum & magnesium hydroxide-simethicone 200-200-20 mg/5 mL suspension 30 mL 30 mL, Oral, EVERY 4 HOURS PRN, Starting on 02/22/25 at 1327, Until 03/08/25 at 1814, Indigestion, Shake well., Post-op dextrose 50 % solution 25 mL 25 mL, Intravenous, PRN, Starting on 02/22/25 at 1214, Until 03/08/25 at 1814, Low blood sugar, If FSBS less than 70 mg/dl and patient cannot take orally, Check FSBS every 15 minutes and repeat 25 mL of D50 IV push and notify physician if FSBS less than 70 mg/dL VESICANT fluticasone propionate (FLONASE) 50 mcg/actuation nasal spray 2 [place] 2 [place], Nasal, 2 TIMES DAILY PRN, Starting on 02/16/25 at 0214, Until 03/08/25 at 1814, Allergies glucagon (GLUCAGEN) injection 1 mg(Linked Group 3) 1 mg, Intramuscular, PRN, Starting on 02/22/25 at 1214, Until 03/08/25 at 1814, Low blood sugar, If FSBS less than 70 mg/dl, patient cannot take orally and without IV access, If patient is without IV access, give Glucagon 1 mg Intramuscularly, insert IV and call physician. melatonin tablet 5-10 mg 5-10 mg, Oral, NIGHTLY PRN, Starting on [place] 02/26/25 at 0102, Until 03/08/25 at 1814, Sleep 2118 (Given - Provider: Marisol Machado RN) 2154 (Given - Provider: Marisol Machado RN) oxyCODONE (ROXICODONE) immediate release tablet 5-10 mg 5-10 mg, Oral, EVERY 3 HOURS PRN, Starting on 02/22/25 at 1327, Until 03/08/25 at 1814, Pain, Begin with lowest dose unless otherwise directed. Reassess pain in one hour. If pain unrelieved, remainder of dose may be given to patient., Post-op 2118 (Given - Provider: Marisol Machado RN) 2154 (Given - Provider: Marisol Machado RN) polyvinyl alcohol (LIQUIFILM TEARS) 1.4 % ophthalmic solution 1 Drop (CANCELED) 1 Drop, Both Eyes, EVERY 6 HOURS PRN, Starting on [place] 03/05/25 at 1624, Until Sun03/06/25 at 1653, Dry Eyes 0619 (Given - Provider: Dolly Gibson RN) sodium chloride 0.9 % 250 mL IV bolus Intravenous, PRN, Starting on 03/02/25 at 1645, Until 03/08/25 at 1814, at 245.9 mL/hr sodium chloride 0.9% IV line flush 20-50 mL 20-50 mL, Intravenous, at 150-600 mL/hr, PRN, Starting on 02/21/25 at 0237, Until 03/08/25 at 1814, Line Care, Flush with a minimum of 20 mL after IVPB to insure complete administration of the dose. May use the saline infusion to back flush IVPB tubing as needed. sodium chloride 0.9% IV line flush 20-50 mL 20-50 mL, Intravenous, at 150-600 mL/hr, PRN, Starting on [place] 02/26/25 at 1125, Until 03/08/25 at 1814, Line Care, Flush with a minimum of 20 mL after IVPB to insure complete administration of the dose. May use the saline infusion to back flush IVPB tubing as needed. sodium chloride 0.9% syringe Intravenous, PRN, Starting on [place] 02/26/25 at 1125, Until 03/08/25 at 1814, Line Care, Flush with 5-10 mL saline pre/post IVP, 10 mL prior to IVPB or blood product administration, and 20 mL post blood draws for CENTRAL lines. 0618 (Given - Provider: Dolly Gibson, RN)06 (Given - Provider: Dolly Gibson, RN) sodium chloride 0.9% syringe Intravenous, PRN, Starting on Sun03/01/25 at 1447, Until 03/08/25 at 1814, Line Care, Flush with 5-10 mL saline pre/post IVP, and 5 mL prior to IVPB or blood product administration. sterile water injection 1 mL(Linked Group 3) 1 mL, Injection, PRN, Starting on Sun02/22/25 at 1214, Until Sun03/08/25 at 1814, Use for drug dilution, Use to dilute and administer glucagon injection Linked Groups Order Group 1: apixaban (ELIQUIS) tablet 10 mgJump to med 10 mg, Oral, 2 TIMES DAILY, 14 doses, First dose on Sun03/02/25 at 1245, Last dose on Sun03/08/25 at 2100, Please turn off heparin gtt when first dose of apixaban is given. Followed by apixaban (ELIQUIS) tablet 5 mgJump to med 5 mg, Oral, 2 TIMES DAILY, First dose on Sun03/09/25 at 0900, Until Discontinued Group 2: bisacodyL (DULCOLAX) EC tablet 10 mgJump to med 10 mg, Oral, 2 TIMES DAILY, First dose on Sun02/24/25 at 0900, Until Discontinued, Start 48 hours post-op. Hold if patient has had bowel movement. Nurse may select tablet or suppository., Post-op Or bisacodyL (DULCOLAX) suppository 10 mgJump to med 10 mg, Rectal, 2 TIMES DAILY, First dose on Sun02/24/25 at 0900, Until Discontinued, Start 48 hours post-op. Hold if patient has had bowel movement. Nurse may select tablet or suppository., Post-op Group 3: glucagon (GLUCAGEN) injection 1 mgJump to med 1 mg, Intramuscular, PRN, Starting on Sun02/22/25 at 1214, Until Sun03/08/25 at 1814, Low blood sugar, If FSBS less than 70 mg/dl, patient cannot take orally and without IV access, If patient is without IV access, give Glucagon 1 mg Intramuscularly, insert IV and call physician. And sterile water injection 1 mLJump to med 1 mL, Injection, PRN, Starting on 02/22/25 at 1214, Until 03/08/25 at 1814, Use for drug dilution, Use to dilute and administer glucagon injection documented in this encounter Orders Medications Ordered That Néstor ht Not Have Been Administered Count Last Ordered Date First Ordered Date apixaban (ELIQUIS) tablet 5 mg 1 03/02/2025 iopamidol (ISOVUE-300) oral contrast 30 mL 1 03/01/2025 sodium chloride 0.9% syringe 1 03/01/2025 alteplase (ACTIVASE) injection 1 mg 1 02/26 ceFAZolin (ANCEF) IVPB 2 g 1 02/22/2025 dimenhyDRINATE (DRAMAMINE) 1 2.5-50 mg in sodium chloride 0.9% injection 1 02/22/2025 droPERidol (INAPSINE) injection 0.625 mg 1 02/22/2025 glucagon (GLUCAGEN) injection 1 mg 1 2024 HYDROmorphone (DILAUDID) injection 0.25 mg 1 02/22/2025 lactated ringers infusion 1 02/22/2025 ondansetron (ZOFRAN) injection 4 mg 1 02/22 ondansetron (ZOFRAN-ODT) dis integrating tablet 8 mg 1 02/22/2025 ortho canal block 1 02/22/2025 promethazine (PHENERGAN) 12. 5 mg in sodium chloride 0.9% 10 mL injection 1 02/22/2025 promethazine (PHENERGAN) 6.2 5 mg in sodium chloride 0.9% 10 mL injection 1 02/22/2025 sterile water injection 1 mL 1 02/22/2025 tobramycin (NEBCIN) injection 1 02/22/2025 vancomycin (VANCOCIN) recons tituted injection 1 02/22/2025 LORazepam (ATIVAN) injection 1 mg 1 025 fluticasone propionate (FLON ASE) 50 mcg/actuation nasal spray 2 [place] 1 02/16/2025 Nursing Count Last Ordered Date First Orde red Date RUIZ CATHETER - DISCONTINUE 1 02/22/2025 PHARM VTE PROPH NON-CANDIDATE 1 02/22/2025 Consult Count Last Ordered Date First Orde red Date IP CONSULT TO INTERVENTIONAL RADIOLOGY 2 02/18/2025 IP CONSULT TO CARDIOLOGY 1 03/01/2025 IP CONSULT TO PHARMACY 3 03/01/202502/19 IP CONSULT TO PULMONOLOGY 1 03/01/2025 IP CONSULT TO WOUND CARE 1 03/01/2025 IP CONSULT TO CARE COORDINATION 1 IP CONSULT TO INFECTIOUS DISEASES 1 025 IP CONSULT TO SOCIAL WORK 1 02/22/2025 IP CONSULT TO ORTHOPEDIC SURGERY 1 02/17/20 25 OT Count Last Ordered Date First Orde red Date IP CONSULT TO OCCUPATIONAL THERAPY 1 2024 PT Count Last Ordered Date First Orde red Date IP CONSULT TO PHYSICAL THERAPY 3 02/22/2025 02/16/2025 PT PLAN OF CARE CERTIFICATION 1 02/17/2025 ONGOING PHYSICAL THERAPY PER PLAN OF CARE 1 02/16/2025 POLITICAL CONSULTANT Count Last Ordered Date First Orde red Date IP CONSULT TO SPEECH THERAPY 1 02/16/2025 ONGOING SPEECH THERAPY PER PLAN OF CARE 1 0 02/16/2025 Admission Count Last Ordered Date First Orde red Date ADMIT 4 02/20/2025 02/16/2025 Transfer Count Last Ordered Date First Orde red Date TRANSFER PATIENT 2 03/01/2025 02/16/2025 Discharge Count Last Ordered Date First Orde red Date DISCHARGE PATIENT 1 03/08/2025 documented in this encounter Care Teams Analytical Technician Relationship Specialty Start Date End Date No Pcp, Per Patient PCP - General 02/16/25 documented as of this encounter
--- OUTSIDE RECORDS SUMMARY | 2025-02-22 08:00 | XMS_ITS | Encounter Summary ---
Author Organization [place] [address] Care Team Providers Care Family Support Specialist Name Role Phone No Pcp, Per Patient Primary Care Provider Robyn arshad Reason for Visit * Auth/Cert/Inpt Specialty Diagnoses / Procedures Referred By Rebecca t Referred To Contact Diagnoses Right hip pain right hip pain Referral ID Status Reason Start Date Expiration Date Visits Re quested Visits Authorized [id number] 1 1 Encounter Details Date Type Department Care Team (Late st Contact Info) Description 02/22/2025 8:00 AM EDT - 02/22/2025 11:00 AM EDT Surgery [facility] [address] [place] [address] Mason Jacome DO [address] [place] [address] TOTAL HIP OR LEWIS ARTHROPLASTY REVISION -POSTERIOR LATERAL/ POSITION Surgery Details Date/Time Status Location OR Service Patient Class Case Class Case Type Trauma Case? 02/22/2025 8:00 AM Posted [facility] MAIN OR [facility] OR 12 Orthopedics Inpatient Semi-Urg ent - 2 Wks Panel 1 Procedure LRB Anes Op Region Wound Class Comments TOTAL HIP OR LEWIS ARTHROPLASTY REVISION -POSTERIOR LATERAL/ POSITION Right General Hip Dirty or Infected Right hip Incision & Drainage with head/liner exchange Surgeon Surgeon Role Service Panel Mason Jacome DO Primary Orthopedics 1 Special Needs posterior, regular table, lat, anterior specials tray, long femoral elevator retractor, osteotomes to remove old poly, 9 liters NACL, antiseptic irrigation (bactisure or similar) documented in this encounter Social History Tobacco Use Types Packs/Day Years Used Date Smoking Tobacco: Never Assessed [facility] Utilities Answer Date Recorded In the past 12 months has [employer], gas, oil, or water [employer] threatened to shut off services in your home? No 02/16/2025 Overall Financial Resource Strain (CARDIA) Answe r Date Recorded How hard is it for you to pa y for the very basics like food, housing, medical care, and heating? Not very hard 02/16/2025 PHQ-2 Answer Date Recorded PHQ-2 Total Score 0 02/16/2025 [facility] - Occupational Stress [...] money to get more. Never true 02/16/2025 [facility] IP Transportation Answer D ate Recorded In [...] Sign Reading Time Taken Comments Blood Pressure 111/79 02/22/2025 11:00 AM EDT Pulse 68 02/22/2025 11:00 AM EDT Temperature 36 C (96.8 F) 02/22/2025 11:00 AM EDT Respiratory Rate 14 02/22/2025 11:0 0 AM EDT Oxygen Saturation 95% 02/22/2025 11: 00 AM EDT Inhaled Oxygen Concentration - - Weight 114.2 kg (251 lb 12.3 oz) 02/16/2025 1:00 AM EDT Height 193 cm (6' 4 [...] or hopeless 0 10/2024 12:03 PM EDT Blanac Low RN PHQ-2 Total Score 0 02/16/2025 12:03 PM EDT Blanca Low RN * PHQ-9 Total Score Answer Date of Assessment Author 0 02/16/2025 12:03 PM EDT Me wolf Low RN * Suicide Severity Rating Answer Date of Assessment Author No Risk 02/16/2025 1:00 AM EDT Yovana Flores RN * [place] Suicide Severity Rating Scale (Q shift for [...] 6) 0 02/16/2025 1:00 AM EDT Cameron Flores, ELLEN 6. Have you ever done anythi ng, started to do anything, or prepared to do anything to end your life? 0 02/16/2025 1:00 AM EDT Cameron Aguilar, ELLEN documented as of this encounter Discharge Summaries * Stephen Covarrubias MD - 03/08/2025 11:12 AM EDT Images from the original note were not included. [facility] Summary Patient Name: Steve King [...] fluticasone propionate 50 mcg/actuation Spsn Dose: 2 [place] Refills: 0 Commonly known as: FLONASE Lasix [...] Your Medications These medications were sent to [facility] [place] [address] [address] [facility] [phone] [place] [address] apixaban 5 mg Tab aspirin 81 mg Tbec ketorolac 0.5 % Drop pantoprazole 40 mg Tbec polyethylene glycol 17 gram Pwpk traMADoL 50 mg Tab These medications were sent to [id number] [place] [address] [address] [facility]- [phone] [place] [phone] Hours: 24-hours apixaban 5 mg Tab Information about where to get these medications is not yet available Ask your nurse or doctor about these medications ceFAZolin in dextrose 2 gram/100 mL Pgbk Condition at Discharge: stable Disposition: SNF Follow-up: Jocelyne Bosch MD [address] [place] [address] Follow up in 1 week(s) [facility] [address] [place] [address] [address] [id number] Total time spent coordinating his discharge: 32 [...] daily. fluticasone propionate (FLONASE) 50 mcg/actuation Nasl [place], Suspension 2 Sprays by Nasal route 2 [...] daily for 14 days. 14 Tablet 02/23/2025 documented in this encounter Discharge Disposition Disposition Code Departure Means Destination Comment s [facility] documented in this encounter Progress Notes * Warning, Ghada Alberto RN - 03/08/2025 12:22 PM EDT 03/08/25 [...] Last documented BM on 03/07/25. Preferred Pharmacy: [facility] [place], [place]. Ambulance transportation set up with [facility] at 1330. Voicemail left for Fabricio with [facility] to notify of picking tech time. Nurse and Charge Nurse updated. CC to sign off, but remain available should further discharge needs arise. Final Note Referral to SEP Care Management (SEP patients only) No Discharge Round Completed Yes Post Acute Facility [facility] Post Acute Form Completed Yes DME at [...] reporting just getting up to chair with BLOCK INSPECTOR and wants to rest. Possible discharge today. Discussed concern regarding wound VAC with RN and chargemaster specialist. Others Present/Assisting BLOCK INSPECTOR Therapy delay reason Patient/family request therapist return [...] in surgery. CC spoke to Fabricio with [facility] who reports precert was approved; however they arenot able to accommodate patient's doses of IV antibiotics today (03/08). [employer] Secure Chat sent to MD to notify. MD to send discharge prescriptions to [facility] preferred pharmacy of [place], [place] today in anticipation of discharge tomorrow [...] able to accommodate the patient's IV antibiotics. [employer] Secure Chat sent to MD, Charge Nurse, and [...] Following Normal Memory Intact Communication Impaired Hearing [place] Vision vision deficits in right eye Precautions [...] standing rest breaks. Cueing for proximity to RW, safety andtechnique. Functional Status Score (FSS-ICU) Is [...] therapy recommended. Time In / Time Out [id number] IP PT Treatment Minutes 25 The total time spent caring for this patient included but was not limited to medical record review;hands-on treatment;communication and education with patient and/or family/caregiver;communication with nursing and/or care coordination/social work regarding patient status and discharge planning * Stephen Covarrubias MD - 03/07/2025 2:31 PM EDT [facility] Progress Note Name: Steve King ADDRESS: [address] [place] [id number] : 1935 AGE: 89 y.o. HPI: 87 [...] Name: STEVE KING Department: DEPID Room: 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: 1935 Requested By: STACIA Parson Order Number: [id number] Reading MD: David Mar Measurements Intervals [place] Rate: 75 P: 70 [place]: 263 QRS: -29 QRSD: 138 T: 128 [...] pulmonary embolism without acute cor pulmonale ([facility]) Chest pain, precordial Dilated cardiomyopathy ([facility]) Hypotension Other chest pain Abdominal pain Troponin level elevated MSSA (methicillin susceptible Staphylococcus aureus) infection Conjunctival hyperemia of right eye NIGHAT (obstructive sleep apnea) Dyslipidemia Major neurocognitive disorder ([facility]) Mood disorder Type 2 diabetes mellitus with diabetic polyneuropathy, without long-term current use of insulin ([facility]) Environmental allergies Hyperkalemia Rash Dysphagia 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) ([facility]) Paroxysmal A-fib ([facility]) BPH (benign prostatic hyperplasia) Right hip wound [...] completed using voice recognition technology. Despite this technical publications writer's best efforts, it may still contain unintended errors. Please contact us if any questions. Stephen Covarrubias MD03/07/2025 2:31 PM * Warning, Ghada Alberto RN - 03/07/2025 2:02 PM EDT 03/07/25 1400 Ongoing Discharge Planning Evaluation Actual Discharge Plan -03/07/25 CC Update: Per previous CC note, precert is pending for [facility]. Voicemail left for Fabricio with [facility]. CC awaiting call back. Post acute placement to be completed once precert determination has been made. Transportation pending level of mobility at dischar . CC to follow. * Stephen Covarrubias MD - 03/06/2025 4:54 PM EDT [facility] Progress Note Name: Steve King ADDRESS: [address] [place] [id number] : 1935 AGE: 89 y.o. HPI: 89 [...] of 02/16/25 EK EKG 12 LEAD Impression [facility] Test Date: 2025-03-01 Pat Name: STEVE KING Department: DEPID Room: 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: 1935 Requested By: STACIA Parson Order Number: [id number] Reading MD: David Mar Measurements Intervals [place] Rate: 75 P: 70 [place]: 263 QRS: -29 QRSD: 138 T: 128 [...] pulmonale (HCC) Chest pain, precordial Dilated cardiomyopathy ([facility]) Hypotension Other chest pain Abdominal pain Troponin level elevated MSSA (methicillin susceptible Staphylococcus aureus) infection Conjunctival hyperemia of right eye NIGHAT (obstructive sleep apnea) Dyslipidemia Major neurocognitive disorder ([facility]) Mood disorder Type 2 diabetes mellitus with diabetic polyneuropathy, without long-term current use of insulin ([facility]) Environmental allergies Hyperkalemia Rash Dysphagia 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) ([facility]) Paroxysmal A-fib ([facility]) BPH (benign prostatic hyperplasia) Right eye pain [...] completed using voice recognition technology. Despite this technical publications writer's best efforts, it may still contain unintended errors. Please contact us if any questions. Stephen Covarrubias MD03/06/2025 4:54 PM * Blanca Low RN - 03/06/2025 3:20 PM EDT 03/06/25 1517 Ongoing Discharge Planning Evaluation Actual Discharge Plan 03-06-2025 Discharge update: CC spoke with Fabricio [phone] from [facility]-he is still waiting on insurance precert. Fabricio hopes to have authorization later this afternoon. Ifprecert comes in, they will have a bed available on March 07 after 3:00pm. CC/SW to contact Fabricio [phone] Sunday morning. CC continues to follow. * Tawny Bal PTA [...] Following Normal Memory Intact Communication Impaired Hearing [place] Vision R eye continues to give him [...] Taking fluticasone propionate (FLONASE) 50 mcg/actuation Nasl [place], Suspension 2 Sprays by Nasal route 2 [...] mg 1 mg Intercatheter PRN Katie Viera, AIR QUALITY TECHNICIAN aluminum & magnesium hydroxide-simethicone 200-200-20 mg/5 mL [...] Mason Jacome DO 10 mg at 03/04/25 2114 Or bisacodyL (DULCOLAX) suppository 10 mg 10 mg Rectal BID aMson Jacome DO 10 mg at 03/04/25 1710 [...] propionate (FLONASE) 50 mcg/actuation nasal spray 2 [place] 2 [place] Nasal BID PRN Litzy Sepulveda APRN glucagon [...] Q3H PRN Mason Jacome DO 10mg at 03/05/25 2128 pantoprazole (PROTONIX) tablet 40 mg 40 mg [...] 0.9% syringe Intravenous PRN Katie Viera APRN 10 mL at 03/06/25 0619 tamsulosin (FLOMAX) [...] Following Normal Memory Intact Communication Impaired Hearing [place] Vision reports having scratched R eye Pain [...] placed over commode. Pt would benefit from [facility]SC d/t hips rubbing and wound vac [...] therapy recommended. Time In / Time Out [id number] IP OT Individual Treatment Minutes 26 The [...] Following Normal Memory Intact Communication Impaired Hearing [place] Vision vision deficits in right eye, feeling [...] Covarrubias MD - 03/05/2025 9:24 AM EDT [facility] Progress Note Name: Steve King ADDRESS: [address] [place] [phone] : 1935 AGE: 89 y.o. HPI: 87 [...] KING Department: DEPID Room: W370 Gender: Male Bore Mill Operator: : 1935 Requested By: STACIA Parson Order Number: [id number] Reading MD: David Mar Measurements Intervals [place] Rate: 75 P: 70 [place]: 263 QRS: -29 QRSD: 138 T: 128 [...] completed using voice recognition technology. Despite this technical publications writer's best efforts, it may still contain unintended errors. Please contact us if any questions. Stephen Covarrubias MD03/05/2025 9:24 AM * Blanca Low RN - 03/04/2025 3:16 PM EDT 03/04/25 1514 Ongoing Discharge Planning Evaluation Actual Discharge Plan 03-04-2025 Dishcarge update: sent updated clincials to [facility] at [facility] states that they will not have a bed available until Sunday, March 07. notified MD and continues to follow. * Stephen Covarrubias MD - 03/04/2025 3:11 PM EDT [facility] Progress Note Name: Steve iKng ADDRESS: [address] [place] [id number] : 1935 AGE: 89 y.o. HPI: 89 [...] KING Department: DEPID Room: W370 Gender: Male Bore Mill Operator: : 1935 Requested By: STACIA Parson Order Number: [id number] Reading MD: David Mar Measurements Intervals [place] Rate: 75 P: 70 [place]: 263 QRS: -29 QRSD: 138 T: 128 [...] pulmonary embolism without acute cor pulmonale ([facility]) Chest pain, precordial Dilated cardiomyopathy ([facility]) Hypotension Other chest pain Abdominal pain Troponin level elevated MSSA (methicillin susceptible Staphylococcus aureus) infection Conjunctival hyperemia of right eye NIGHAT (obstructive sleep apnea) Dyslipidemia Major neurocognitive disorder ([facility]) Mood disorder Type 2 diabetes mellitus with diabetic polyneuropathy, without long-term current use of insulin ([facility]) Environmental allergies Hyperkalemia Rash Dysphagia 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) ([facility]) Paroxysmal A-fib ([facility]) BPH (benign prostatic hyperplasia) Acute PE Continue [...] completed using voice recognition technology. Despite this technical publications writer's best efforts, it may still contain unintended [...] 97.6 PLT 280 322 BMP: Recent Labs 03/02/25 0618 NA 134* K 4.2 CL 101 CO2 [...] Following Normal Memory Intact Communication Impaired Hearing [place] Vision vision deficits in right eye, feeling [...] pulmonale (HCC) Chest pain, precordial Dilated cardiomyopathy ([facility]) Hypotension Other chest pain Abdominal pain Troponin level elevated MSSA (methicillin susceptible Staphylococcus aureus) infection Conjunctival hyperemia of right eye NIGHAT (obstructive sleep apnea) Dyslipidemia Major neurocognitive disorder ([facility]) Mood disorder Type 2 diabetes mellitus with diabetic polyneuropathy, without long-term current use of insulin (HCC) Environmental allergies Hyperkalemia Rash Dysphagia 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) ([facility]) Paroxysmal A-fib ([facility]) BPH (benign prostatic hyperplasia) No change in [...] Following Normal Memory Intact Communication Intact Hearing [place] Vision vision deficits in right eye--States they [...] therapy recommended. Time In / Time Out [id number] IP PT Treatment Minutes 34 (15 TE, 18 FA) The total time spent caring for this patient included but was not limited to medical record review;hands-on treatment;communication and education with patient and/or family/caregiver;communication with nursing and/or care coordination/social work regarding patient status and discharge planning;asses sment of the patient's progress since the last session * Stephen Covarrubias MD - 03/03/2025 9:16 AM EDT [facility] Progress Note Name: Steve King ADDRESS: [facility]note 3[facility] [place] [address] : 1935 AGE: 89 y.o. HPI: 87 [...] of 02/16/25 EK EKG 12 LEAD Impression [facility] Test Date: 2025-03-01 Pat Name: STEVE KING Department: DEPID Room: 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: 1935 Requested By: STACIA Parson Order Number: [id number] Tiffany MD: David Mar Measurements Intervals [place] Rate: 75 P: 70 [place]: 263 QRS: -29 QRSD: 138 T: 128 [...] pulmonary embolism without acute cor pulmonale ([facility]) Chest pain, precordial Dilated cardiomyopathy ([facility]) Hypotension Other chest pain Abdominal pain Troponin level elevated MSSA (methicillin susceptible Staphylococcus aureus) infection Conjunctival hyperemia of right eye NIGHAT (obstructive sleep apnea) Dyslipidemia Major neurocognitive disorder ([facility]) Mood disorder Type 2 diabetes mellitus with diabetic polyneuropathy, without long-term current use of insulin ([facility]) Environmental allergies Hyperkalemia Rash Dysphagia 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) ([facility]) Paroxysmal A-fib ([facility]) BPH (benign prostatic hyperplasia) Acute PE Eliquis [...] completed using voice recognition technology. Despite this technical publications writer's best efforts, it may still contain unintended [...] MR, PASP 40 - per notes at [facility] Sep 2024, was considering valve surgery, per son- was told he is not a good candidate - No GDMT d/t hypotension- on midodrine now PAF s/p DCCV Jun 2024 - [id number] score is 5 with 6.7% annual stroke [...] Prophylaxis: AC Further input from Dr. Chris Velasquez, [facility], Heart and Vascular 03/03/2025 Disposition Perspective - [...] AC ASHD Med Rx. Med Rx, sees [facility] SR I personally performed medical decision making in its entirety. Quinten Perez MD, [facility] * Sabine Aj OT - 03/02/2025 1:54 PM EDT 03/02/25 1354 OT Subjective Note Type Follow Up Treatment Attempt Patient Room/Unit 370 OT Subjective Comments #1 @ [facility]. Transferred to TCU for code chest pain; PE found. Heparin started 03/01 Therapy delay reason Unavailable due to tests/procedures * Aki Torre PharmD - 03/02/2025 1:53 PM EDT Pharmacy [...] -- -- -- 80 -- -- -- 03/01/252346 106/65 97 ??F (36.1 ??C) Oral 87 [...] DAILY fluticasone propionate (FLONASE) 50 mcg/actuation Nasl [place], Suspension 2 Sprays, 2 TIMES DAILY PRN fUROsemide (LASIX) 20 mg, DAILY metFORMIN (GLUCOPHAGE) 500 mg, 2 TIMES DAILY polyvinyl alcohol (LIQUIFILM TEARS) 1.4 % Opht Drops 1 Drop, PRN tamsulosin (FLOMAX) 0.8 mg, DAILY Current Facility-Administered Medications Medication Dose Route Frequency Provider Last Rate Last Admin acetaminophen (TYLENOL) tablet 650 mg 650 mg Oral Q4H PRN Berenice Dallas S, DO 650 mg at 03/01/25 0806 alteplase (ACTIVASE) injection 1 mg 1 mg Intercatheter PRN Katie Viera, AIR QUALITY TECHNICIAN aluminum & magnesium hydroxide-simethicone 200-200-20 mg/5 mL [...] WM Litzy Sepulveda APRN 1 Tablet at 03/02/25 [...] propionate (FLONASE) 50 mcg/actuation nasal spray 2 [place] 2 [place] Nasal BID PRN Sepulveda, Litzy, AIR QUALITY TECHNICIAN glucagon (GLUCAGEN) injection 1 mg 1 mg Intramuscular PRN Berenice Dallas S, DO And sterile water injection 1 mL 1 mL Injection PRN Berenice Dallas, DO insulin aspart U-100 (NovoLOG) injection 1-15 Units 1-15 Units Subcutaneous QID Berenice Dallas DO 2 Units at 02/28/252121 insulin glargine U-100 (LANTUS) injection 8 Units [...] Isovue 370 IV contrast as recorded in Instant AV. 2-D multiplanar reconstructions and 3-D MIP reconstructions [...] reactive. Direct communication to care team using [employer] Secure Chat. Notification included: OZZIE FERNANDEZ Approximate [...] examined. Nick Mandujano MD * Caroline John [facility] - 03/02/2025 12:45 PM EDT Pharmacy Consult: Heparin Sign Off Heparin discontinued. Therapy to continue with treatment dose of apixaban. Pharmacy will sign off. Please let us know if we can be of additional assistance. Thanks! Caroline John, PharmD, BCPS Electronically signed by Caroline John [facility] at 03/02/2025 12:45 PM EDT * Ana Horton [facility] - 03/02/2025 11:37 AM EDT Pharmacy Consult- [...] WBC 7.5 7.7 9.5 BUN 22 15 15 CREATININE 0.90 0.84 0.86 Estimated Creatinine [...] from 02/21/2025 where the patient was SUBtherapeutic ([id number] mg*hr/L) on 1,500 mg q18h, and therapy [...] and signs of toxicity. Thanks! Ana Horton, PharmD * Blanca Low RN - 03/02/2025 10:45 AM EDT 03/02/25 1042 Ongoing Discharge Planning Evaluation Actual Discharge Plan 03-02-2025 Discharge update: CC sent updated clinicals to Fabricio at [facility] via [facility]. CC advised Fabricio that patient will likely [...] (ensure function is on). Orders updated in [facility]. Primary nurse, Will updated. Will continue [...] from the original note were not included. [facility] Medicine Service Progress Note: [facility] Medicine Service Steve King LOS: 10 [...] mid-range ejection fraction (HFmEF) (HCC) Paroxysmal A-fib ([facility]) BPH (benign prostatic hyperplasia) Resolved Hospital Problems [...] failure with mid-range ejection fraction (HFmEF) (HCC) DRY CLEANING CHECKER lasix will hold patient hypertensive Will obtain [...] Paroxysmal A-fib (HCC) HR 69 Rate controlled DRY CLEANING CHECKER meds Eliquis transition on heparin after developed PE yesterday Hemoglobin 9.9>>9.3 will monitor NIGHAT (obstructive sleep apnea) CPAP at night RT Dyslipidemia DRY CLEANING CHECKER Lipitor Major neurocognitive disorder (HCC) Seems at baseline 02/23 AAO, ?dementia; ?able to joint care of self? DRY CLEANING CHECKER Donepazil Mood disorder DRY CLEANING CHECKER Cymbalta Type 2 diabetes mellitus Uncontrolled BS 127>>>165--180 within the target BG in goal 140-180 and target continue Metformin on hold after the dye for 48 hours Lantus increased to 8 twice daily SSI, . Monitor blood sugar for hypoglycemia Environmental allergies Continue Flonase Hyperkalemia K 3.9--4.2 Resolved Dysphagia Speech eval, recs reviewed BPH (benign prostatic hyperplasia) DRY CLEANING CHECKER flomax decreased from 0.8-0.4 add hold parameter [...] Isovue 370 IV contrast as recorded in Instant AV. 2-D multiplanar reconstructions and 3-D MIP reconstructions [...] reactive. Direct communication to care team using [employer] Secure Chat. 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 Despite the technical publications writer's best efforts to proof read, it may [...] @0806) Was on Apixaban 5 mg bid DRY CLEANING CHECKER but dose was changed on 02/23 per [...] - 94 seconds). Thank you, Aki Torre, PharmD * Bindu Sepulveda, [facility] - 03/01/2025 7:17 PM EDT Pharmacy Consult [...] @0806) Was on Apixaban 5 mg bid DRY CLEANING CHECKER but dose was changed on 02/23 per [...] him on father status. Left VM. Waiting emissions repair technician back. * Ney Govea - 03/01/2025 11:54 AM EDT Images from the original note were not included. 03/01/25 1100 Reason for Visit Date of visit 03/01/25 Visited With Patient Visited By Manager Provider Relations Referral Source Clinical Shellfish Bed Worker Reason for Visit Spiritual, emotional or social support;Pre-op visit Patient Assessment Patient Appears Calm;Pleasant;Anxious Spiritual Strengths and Coping Resources Meaning, isabella, support in latter day practices Patient Spiritual Wellbeing Appears to be coping adequately Interventions with Patient Jew Interventions Prayer with patient or family Outcomes Expressed Outcomes Appreciative of visit;Appreciative of prayer/ritual Care Plan Plan for Follow-Up Manager Provider Relations(s) will attempt follow-up visit(s) Ney Govea Manager Provider Relations, Pastoral and Spiritual Care For non-urgent requests, please place a Pastoral Care consult in [facility]. For all urgent matters, please send an urgent [facility] Secure Chat to the Pastoral Care group at your location. Between 11pm and 7am, please use On-Call Finder to send an [facility] Secure Chat to the on-call slat basket maker helper. Pastoral Care office phone numbers: EDG/COV/GRT [phone], LUIS [phone], FTT [phone], DBN [phone] * Rebecca Ngo, Ethylene Oxide Panelboard Operator - 03/01/2025 9:53 AM EDT Pharmacy PK [...] from 02/21/2025 where the patient was SUBtherapeutic (EEFlg186 mg*hr/L) on 1,500 mg q18h, and therapy was modified to 1,750 mg q18h. This dosing regimen is estimated to result in a predicted AUCss of 412 mg??hr/L; Goal AUC is 400-600. Will check levels on 03/03 between the 3rd and 4th dose. Pharmacy will follow patient for changes in renal function, efficacy, and signs of toxicity. Other labs: BMP ordered for the AM. Rebecca Erazo, Ethylene Oxide Panelboard Operator Cosigned by Feng Robin, ErlinD at 03/01/2025 10:13 AM EDT Associated attestation - Feng Robin PharmD - 03/01/2025 10:13 AM EDT I have reviewed this patient and I agree with the assessment and plan as outlined below by the pharmacy data analyst. Thanks, Jens Robin, PharmD PGY1 Paper [employer]eter * Stacia Shrestha MD - 03/01/2025 9:24 [...] LUQ area. Ecg unchanged Obtain trops x2 cafeteria monitor [place] labs Hypotension Suspected sepsis Already on cefazolin> [...] from the original note were not included. [facility] Hospital Medicine Service Progress Note: [facility] Hospital Medicine Service Steve King LOS: 9 days Problems List Active Hospital Problems Diagnosis Right hip pain MSSA (methicillin susceptible Staphylococcus aureus) infection Conjunctival hyperemia of right eye NIGHAT (obstructive sleep apnea) Dyslipidemia Major neurocognitive disorder ([facility]) Mood disorder Type 2 diabetes mellitus with diabetic polyneuropathy, without long-term current use of insulin ([facility]) Environmental allergies Hyperkalemia Rash Dysphagia 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) ([facility]) Paroxysmal A-fib ([facility]) BPH (benign prostatic hyperplasia) Resolved Hospital Problems [...] failure with mid-range ejection fraction (HFmEF) (HCC) DRY CLEANING CHECKER lasix will hold patient hypertensive Will obtain [...] Paroxysmal A-fib (HCC) HR 69 Rate controlled DRY CLEANING CHECKER meds On Eliquis per ortho decreased to 2.5 Hemoglobin 9.9 NIGHAT (obstructive sleep apnea) CPAP at night RT Dyslipidemia DRY CLEANING CHECKER Lipitor Major neurocognitive disorder (HCC) Seems at baseline 02/23 AAO, ?dementia; ?able to joint care of self? 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 Despite the technical publications writer's best efforts to proof read, it may still contain unintended errors. Please call with questions. * Rigoberto Restrepo, DRY CLEANING CHECKER - 02/28/2025 1:32 PM EDT 02/28/25 1317 [...] therapy recommended. Time In / Time Out 8510-1202 IP PT Treatment Minutes 19 The total time spent caring for this patient included but was not limited to medical record review;hands-on treatment;communication and education with patient and/or family/caregiver;communication with nursing and/or care coordination/social work regarding patient status and discharge planning * Ozzie Fernandez MD - 02/28/2025 8:55 AM EDT Images from the original note were not included. [facility] Hospital Medicine Service Progress Note: [facility] Medicine Service Steve King LOS: 8 [...] mid-range ejection fraction (HFmEF) (HCC) Paroxysmal A-fib ([facility]) BPH (benign prostatic hyperplasia) Resolved Hospital Problems [...] A-fib (HCC) Rate controlled HR 71 02/28 DRY CLEANING CHECKER meds On Eliquis per ortho decreased to 2.5 Hemoglobin 9.9 NIGHAT (obstructive sleep apnea) CPAP at night RT Dyslipidemia DRY CLEANING CHECKER Lipitor Major neurocognitive disorder (HCC) Seems at baseline 02/23 AAO, ?dementia; ?able to joint care of self? 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 Start insulin basal bolus Lantus increased to 10 twice daily, HD SSI, POCT BG ACHS Environmental allergies Continue Flonase Hyperkalemia K 3.9 Resolved Rash monitor for now Dysphagia Speech eval, recs reviewed 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) ([facility]) compensated DRY CLEANING CHECKER lasix BPH (benign prostatic hyperplasia) DRY CLEANING CHECKER flomax Conjunctival hyperemia of right eye Patient [...] drop of hemoglobin will monitor PT recommended retirement pending placement PICC line in place Subjective: [...] completed using voice recognition technology. Despite the technical publications writer's best efforts to proof read, it may [...] he does not want to go to [facility], but that it is his second choice. Explained can look into other facility and does not have to go to [facility], but that he cannot goto [facility]. Pt continues that [facility] will only accept him for 10 days, [...] facility. Pt states he will go to [facility], but wants [facility]. * Tawny Bal [...] that he ONLY has insurance coverage at [facility] and cannot go to another facility. Pt states that in the past his insurance only let him stay at [facility] for 10 days. Attempted to explain that pt may not have met skilled level of care at that time, but likely insurance would have covered the same amount of days at any innetwork SNF. [facility] has confirmed pt innetwork. Pt insists that the only facility he can go to is [facility]. DANIA spoke with Yoli [phone] ( ) with [facility] and they will review referral to see [...] Taking fluticasone propionate (FLONASE) 50 mcg/actuation Nasl [place], Suspension 2 Sprays by Nasal route 2 [...] TID Ozzie Fernandez MD Given at 02/27/25 0723 bisacodyL (DULCOLAX) EC tablet 10 mg 10 [...] mL 25 mL Intravenous PRN Berenice Dallas S, DO docusate sodium (COLACE) capsule 100 mg 100 mg Oral BID Mason Jacome DO 100 mg at 02/27/25 0748 donepeziL (ARICEPT) tablet 5 mg 5 mg Oral Nightly Litzy Sepulveda APRN 5 mg at 02/26/252053 DULoxetine (CYMBALTA) capsule 60 mg 60 mg Oral Daily Litzy Sepulveda APRN 60 mg at 02/27/25 0748 fluticasone propionate (FLONASE) 50 mcg/actuation nasal spray 2 [place] 2 [place] Nasal BID PRN Litzy Sepulveda APRN fUROsemide (LASix) tablet 20 mg 20 mg Oral Daily Ozzie Fernandez MD 20 mg at 02/26/25 0909 glucagon (GLUCAGEN) injection 1 mg 1 mg Intramuscular PRN Berenice Dallas, DO And sterile water injection 1 mL 1 mL Injection PRN Berenice Dallas, DO insulin aspart U-100 (NovoLOG) injection 1-15 Units 1-15 Units Subcutaneous QID Berenice Dallas DO 3 Units at 02/27/25 0747 insulin glargine U-100 (LANTUS) injection 10 Units 10 Units Subcutaneous BID (Insulin) Berenice Dallas, DO 10 Units at 02/27/25 0625 magnesium [...] with Katie Viera APRN. Reviewed documentation per LEESA. Nick Mandujano MD * Ozzie Fernandez MD - 02/27/2025 8:25 AM EDT Images from the original note were not included. [facility] Hospital Medicine Service Progress Note: [facility] Hospital Medicine Service Steve King LOS: 7 days Problems List Active Hospital Problems Diagnosis Right hip pain MSSA (methicillin susceptible Staphylococcus aureus) infection Conjunctival hyperemia of right eye NIGHAT (obstructive sleep apnea) Dyslipidemia Major neurocognitive disorder (HCC) Mood disorder Type 2 diabetes mellitus with diabetic polyneuropathy, without long-term current use of insulin ([facility]) Environmental allergies Hyperkalemia Rash Dysphagia 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) ([facility]) Paroxysmal A-fib ([facility]) BPH (benign prostatic hyperplasia) Resolved Hospital Problems [...] A-fib (HCC) Rate controlled HR 71 02/27 DRY CLEANING CHECKER meds On Eliquis per ortho decreased to 2.5 Hemoglobin 9.9 NIGHAT (obstructive sleep apnea) CPAP at night RT Dyslipidemia DRY CLEANING CHECKER Lipitor Major neurocognitive disorder (HCC) Seems at baseline 02/23 AAO, ?dementia; ?able to joint care of self? 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 Glucose Lvl Date Value Ref Range Status 02/26/2025 127 (H) 70 - 99 mg/dL Final FSBS:No data found. This note was completed using voice recognition technology. Despite the technical publications writer's best efforts to proof read, it may still contain unintended errors. Please call with questions. * Kalyn Cortez, OT - 02/26/2025 1:26 PM EDT 02/26/25 [...] therapy recommended. Time In / Time Out 9563-1529 IP OT Individual Treatment Minutes 17 The [...] SW: Pt requesting 1. [facility], 2. [facility]. SW also spoke with son and he reports that he wants pt to go to [facility] in case pt needs retirement care, but does not want pt to know that he wants [facility]. Son wants to do whatever pt wants. Referral sent to [facility] and await response. Next choice of [facility] requesting updated clinicals faxed to [phone] and SW will send. * Ozzie Fernandez MD - 02/26/2025 8:34 AM EDT Images from the original note were not included. [facility] Hospital Medicine Service Progress Note: [facility] Hospital Medicine Service Steve Fernando LOS: 6 days Problems List Active Hospital [...] ID Paroxysmal A-fib (HCC) Rate controlled 02/23 DRY CLEANING CHECKER meds On Eliquis per ortho decreased to 2.5 NIGHAT (obstructive sleep apnea) CPAP at night RT Dyslipidemia DRY CLEANING CHECKER Lipitor Major neurocognitive disorder (HCC) Seems at baseline 02/23 AAO, ?dementia; ?able to joint care of self? 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 Start insulin basal bolus Lantus increased to 10 twice daily, HD SSI, POCT BG ACHS Environmental allergies Continue Flonase Hyperkalemia Resolved Rash monitor for now Dysphagia Speech eval, recs reviewed 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) compensated DRY CLEANING CHECKER lasix BPH (benign prostatic hyperplasia) DRY CLEANING CHECKER flomax Conjunctival hyperemia of right eye Patient [...] 2 days pending PICC line placement and retirement placement for physical therapy and to complete [...] Pulse: 76 81 76 Resp: 16 18 Temp: 98.8 ??F (37.1 ??C) 98.4 [...] completed using voice recognition technology. Despite the technical publications writer's best efforts to proof read, it may still contain unintended errors. Please call with questions. 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 Also faxed clinicals. Fabricio lemos bed availability. Will need insurance PREC[employer]. SW continue to follow. * Ozzie Fernandez MD - 02/25/2025 8:13 AM EDT Images from the original note were not included. [facility] Hospital Medicine Service Progress Note: [facility] Hospital Medicine Service Steve Fernando LOS: 5 days Problems List Active Hospital [...] ID Paroxysmal A-fib (HCC) Rate controlled 02/23 DRY CLEANING CHECKER meds On Eliquis per ortho decreased to 2.5 NIGHAT (obstructive sleep apnea) CPAP at night RT Dyslipidemia DRY CLEANING CHECKER Lipitor Major neurocognitive disorder (HCC) Seems at baseline 02/23 AAO, ?dementia; ?able to joint care of self? 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 [facility] Hospital Medicine Service Progress Note: [facility] Hospital Medicine Service Steve Knig LOS: 4 days Problems List Active Hospital Problems Diagnosis Right hip pain MSSA (methicillin susceptible Staphylococcus aureus) infection Conjunctival hyperemia of right eye NIGHAT (obstructive sleep apnea) Dyslipidemia Major neurocognitive disorder (HCC) Mood disorder Type 2 diabetes mellitus with diabetic polyneuropathy, without long-term current use of insulin (HCC) Environmental allergies Hyperkalemia Rash Dysphagia 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) ([facility]) Paroxysmal A-fib ([facility]) BPH (benign prostatic hyperplasia) Resolved Hospital Problems [...] cefazolin Paroxysmal A-fib (HCC) Rate controlled 02/23 DRY CLEANING CHECKER meds On Eliquis per ortho NIGHAT (obstructive sleep apnea) CPAP at night RT Dyslipidemia DRY CLEANING CHECKER Lipitor Major neurocognitive disorder (HCC) Seems at baseline 02/23 AAO, ?dementia; ?able to joint care of self? 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 Despite the technical publications writer's best efforts to proof read, it may [...] Problem(s): Paroxysmal A-fib (HCC) Rate controlled 02/23 DRY CLEANING CHECKER meds Hold Eliquis until ortho interventions * Berenice Dallas DO - 02/23/2025 8:28 PM EDTAssociated Problem(s): Major neurocognitive disorder (HCC) Seems at baseline 02/23 AAO, ?dementia; ?able to take care of self? 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 Will need to advise facility when pt nearing discharge so PRECERT can be started. SW continue to follow. * Reji Huynh, ErlinD - 02/23/2025 2:03 PM EDT Pharmacy Consult: Vancomycin Vancomycin has been discontinued. Pharmacy will sign off at this time and follow peripherally. Please consult pharmacy if this agent is restarted and/or additional services are needed. 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 Time In / Time Out 7856-1765 IP OT Evaluation Minutes 7 IP OT [...] night RT * Berenice Dallas, DO - 02/23/2025 11:03 AM EDTAssociated Problem(s): Dyslipidemia DRY CLEANING CHECKER Lipitor * Berenice Dallas, DO - 02/23/2025 11:03 AM EDTAssociated Problem(s): Mood disorder DRY CLEANING CHECKER Cymbalta * Berenice Dallas, DO - 02/23/2025 11:03 AM EDTAssociated Problem(s): Environmental allergies Continue Flonase * Berenice Dallas, DO - 02/23/2025 11:03 AM EDTAssociated Problem(s): Hyperkalemia Resolved * Berenice Dallas, - 02/23/2025 11:03 AM EDTAssociated Problem(s): Rash monitor for now * Berenice Dallas DO - 02/23/2025 11:03 AM EDTAssociated Problem(s): Dysphagia Speech eval, recs reviewed * Berenice Dallas DO - 02/23/2025 11:03 AM EDTAssociated Problem(s): 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) compensated DRY CLEANING CHECKER lasix * Berenice Dallas DO - 02/23/2025 11:03 AM EDTAssociated Problem(s): BPH (benign prostatic hyperplasia) DRY CLEANING CHECKER flomax * Berenice Dallas DO - 02/23/2025 [...] cefazolin Paroxysmal A-fib (HCC) Rate controlled 02/23 DRY CLEANING CHECKER meds Hold Eliquis until ortho interventions NIGHAT (obstructive sleep apnea) CPAP at night RT Dyslipidemia DRY CLEANING CHECKER Lipitor Major neurocognitive disorder (HCC) Seems at baseline 02/23 AAO, ?dementia; ?able to take care of self? 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 insulin basal bolus Lantus increased to 10 twice daily, HD SSI, POCT BG ACHS Environmental allergies Continue Flonase Hyperkalemia Resolved Rash monitor for now Dysphagia Speech eval, recs reviewed 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) ([facility]) compensated DRY CLEANING CHECKER lasix BPH (benign prostatic hyperplasia) DRY CLEANING CHECKER flomax MSSA (methicillin susceptible Staphylococcus aureus) infection [...] Problem(s): Paroxysmal A-fib (HCC) Rate controlled 02/22 DRY CLEANING CHECKER meds Hold Eliquis until ortho interventions * Berenice Dallas DO - 02/22/2025 1:34 PM EDTAssociated Problem(s): Major neurocognitive disorder (HCC) Seems at baseline 02/22 AAO, ?dementia; ?able to take care of self? 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 * Berenice Dallas DO - 02/22/2025 7:50 AM EDTAssociated Problem(s): Environmental allergies Continue Flonase * Berenice Dallas DO - 02/22/2025 7:50 AM EDTAssociated Problem(s): Hyperkalemia Resolved * Berenice Dallas DO - 02/22/2025 7:50 AM EDTAssociated Problem(s): Rash monitor for now * Berenice Dallas DO - 02/22/2025 7:50 AM EDTAssociated Problem(s): Dysphagia Speech eval, recs reviewed * Berenice Dallas DO - 02/22/2025 7:50 AM EDTAssociated Problem(s): 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) compensated DRY CLEANING CHECKER lasix * Berenice Dallas DO - 02/22/2025 7:50 AM EDTAssociated Problem(s): BPH (benign prostatic hyperplasia) DRY CLEANING CHECKER flomax * Berenice Dallas DO - 02/22/2025 [...] today Paroxysmal A-fib (HCC) Rate controlled 02/22 DRY CLEANING CHECKER meds Hold Eliquis until ortho interventions NIGHAT (obstructive sleep apnea) CPAP at night RT Dyslipidemia DRY CLEANING CHECKER Lipitor Major neurocognitive disorder (HCC) Seems at baseline 02/22 AAO, ?dementia; ?able to take care of self? 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 Environmental allergies Continue Flonase Hyperkalemia Resolved Rash monitor for now Dysphagia Speech eval, recs reviewed 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) compensated DRY CLEANING CHECKER lasix BPH (benign prostatic hyperplasia) DRY CLEANING CHECKER flomax Dispo: Continue current care Most recent [...] Chief Complaint: R hip pain s/p MEKA (espMay 2022) HPI: No interval changes cultures growing [...] Historical fluticasone propionate (FLONASE) 50 mcg/actuation Nasl [place], Suspension 2 Sprays by Nasal route 2 [...] Other labs: BMP daily Thank you, Aki Torre, PharmD * Aki Torre, PharmD - 02/21/2025 1:13 PM EDT Pharmacy [...] 30.18* I/O last 3 completed shifts: In: 4 [P.O.:1195; IV Piggyback:849] Out: - I/O this [...] 4th dose resulted as 23.9 mcg/mL (02/21 0602). Patient's measured second concentration collected prior to [...] per Ortho for possible washout * Berenice Dallas DO - 02/21/2025 12:27 PM EDTAssociated Problem(s): Paroxysmal A-fib (HCC) Rate controlled / DRY CLEANING CHECKER meds Hold Eliquis until ortho interventions * Berenice Dallas DO - 02/21/2025 12:27 PM EDTAssociated Problem(s): NIGHAT (obstructive sleep apnea) CPAP at night RT * Berenice Dallas DO - 02/21/2025 12:27 PM EDTAssociated Problem(s): Dyslipidemia DRY CLEANING CHECKER Lipitor * Berenice Dallas DO - 02/21/2025 12:27 PM EDTAssociated Problem(s): Major neurocognitive disorder (HCC) Seems at baseline 6/ AAO, ?dementia; ?able to take care of self? 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 * Berenice Dallas, - 02/21/2025 12:27 PM EDTAssociated Problem(s): Environmental allergies Continue Flonase * Berenice Dallas DO - 02/21/2025 12:27 PM EDTAssociated Problem(s): Hyperkalemia Resolved * Berenice Dallas, DO - 02/21/2025 12:27 PM EDTAssociated Problem(s): Rash monitor for now * Berenice Dallas, DO - 02/21/2025 12:27 PM EDTAssociated Problem(s): Dysphagia Speech eval, recs reviewed * Berenice Dallas DO - 02/21/2025 12:27 PM EDTAssociated Problem(s): 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) compensated DRY CLEANING CHECKER lasix * Berenice Dallas DO - 02/21/2025 12:27 PM EDTAssociated Problem(s): BPH (benign prostatic hyperplasia) DRY CLEANING CHECKER flomax * Berenice Dallas DO - 02/21/2025 [...] washout Paroxysmal A-fib (HCC) Rate controlled 02/21 DRY CLEANING CHECKER meds Hold Eliquis until ortho interventions NIGHAT (obstructive sleep apnea) CPAP at night RT Dyslipidemia DRY CLEANING CHECKER Lipitor Major neurocognitive disorder (HCC) Seems at baseline 02/21 AAO, ?dementia; ?able to take care of self? 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 * Berenice Dallas DO - 02/20/2025 10:12 PM EDTAssociated Problem(s): Paroxysmal A-fib (HCC) Rate controlled 02/20 DRY CLEANING CHECKER meds Hold Eliquis until ortho interventions * Berenice Dallas, DO - 02/20/2025 2:03 PM EDTAssociated Problem(s): BPH (benign prostatic hyperplasia) DRY CLEANING CHECKER flomax * Berenice Dallas, DO - 02/20/2025 2:03 PM EDTAssociated Problem(s): NIGHAT (obstructive sleep apnea) CPAP at night RT * Berenice Dallas, DO - 02/20/2025 2:03 PM EDTAssociated Problem(s): Dyslipidemia DRY CLEANING CHECKER Lipitor * Berenice Dallas, DO - 02/20/2025 2:03 PM EDTAssociated Problem(s): Mood disorder DRY CLEANING CHECKER Cymbalta * Berenice Dallas, DO - 02/20/2025 2:03 PM EDTAssociated Problem(s): Environmental allergies Continue Flonase * Berenice Dallas, DO - 02/20/2025 2:03 PM EDTAssociated Problem(s): Hyperkalemia Resolved * Berenice Dallas DO - 02/20/2025 2:03 PM EDTAssociated Problem(s): Rash monitor for now * Berenice Dallas DO - 02/20/2025 2:03 PM EDTAssociated Problem(s): Dysphagia Speech eval, recs reviewed * Berenice Dallas DO - 02/20/2025 2:03 PM EDTAssociated Problem(s): 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) compensated DRY CLEANING CHECKER lasix * Everett Shelley, DRY CLEANING CHECKER - 02/20/2025 1:47 PM EDT 02/20/25 1215 [...] status and discharge planning * Sandoval Steiner RPH - 02/20/2025 12:14 PM EDT S: Steve [...] Other labs: BMP on 02/21. Sandoval Erazo, Michelle * Blanca Low RN - 02/20/2025 11:06 AM EDT 02/20/25 1059 Ongoing Discharge Planning Evaluation Actual Discharge Plan 02-20-2025 Discharge update: CC spoke with Fabricio [phone] from [facility]- they continue to follow for medical stability. CC sent updated clinicals via [facility] and will arrange transport at discharge. * [...] access. Paroxysmal A-fib (HCC) Rate controlled 02/20 DRY CLEANING CHECKER meds Hold Eliquis until ortho interventions NIGHAT (obstructive sleep apnea) CPAP at night RT Dyslipidemia DRY CLEANING CHECKER Lipitor Major neurocognitive disorder (HCC) Seems at baseline 02/20 AAO, ?dementia; ?able to take care of self? 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 DRY CLEANING CHECKER Donepazil * Berenice Dallas DO - 02/19/2025 7:26 PM EDTAssociated Problem(s): Paroxysmal A-fib (HCC) Rate controlled DRY CLEANING CHECKER meds Hold Eliquis until ortho interventions * Ayad Fitzgerald RN - 02/19/2025 5:07 PM EDT Redness and hardness noticed on LAC PIV site. Pt denied pain. PIV removed, dressing applied. Small Ice pack placed on site. * Sandoval Steiner [facility] - 02/19/2025 2:31 PM EDT S: Steve [...] toxicity. Other labs: BMP on 02/20. Sandoval Erazo PharmD Electronically signed by Sandoval Steiner [facility] at 02/19/2025 2:31 PM EDT * Amanda Jones PA-C - 02/19/2025 9:12 [...] afb fungal culture cell count gram stain Synovasure Amanda Jones PA-C * Berenice Dallas DO - 02/19/2025 8:32 AM EDTAssociated Problem(s): NIGHAT (obstructive sleep apnea) CPAP at night RT * Berenice Dallas DO - 02/19/2025 8:32 AM EDTAssociated Problem(s): Dyslipidemia DRY CLEANING CHECKER Lipitor * Berenice Dallas DO - 02/19/2025 8:32 AM EDTAssociated Problem(s): Mood disorder DRY CLEANING CHECKER Cymbalta * Berenice Dallas DO - 02/19/2025 8:32 AM EDTAssociated Problem(s): Type 2 diabetes mellitus with diabetic polyneuropathy, without long-term curr ent use of insulin (HCC) Check A1C in am. 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 * Berenice Dallas DO - 02/19/2025 8:32 AM EDTAssociated Problem(s): Environmental allergies Continue Flonase * Berenice Dallas DO - 02/19/2025 8:32 AM EDTAssociated Problem(s): Hyperkalemia Resolved * Berenice Dallas DO - 02/19/2025 8:32 AM EDTAssociated Problem(s): Rash monitor for now * Berenice Dallas DO - 02/19/2025 8:32 AM EDTAssociated Problem(s): Dysphagia Speech eval, recs reviewed * Berenice Dallas DO - 02/19/2025 8:32 AM EDTAssociated Problem(s): 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) compensated DRY CLEANING CHECKER lasix * Berenice Dallas DO - 02/19/2025 8:32 AM EDTAssociated Problem(s): BPH (benign prostatic hyperplasia) DRY CLEANING CHECKER flomax * Berenice Dallas DO - 02/19/2025 [...] sleep apnea) CPAP at night RT Dyslipidemia DRY CLEANING CHECKER Lipitor Major neurocognitive disorder (HCC) Seems at baseline AAO, ?dementia; ?able to take care of self? 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 Environmental allergies Continue Flonase Hyperkalemia Resolved Rash monitor for now Dysphagia Speech eval, recs reviewed 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) compensated DRY CLEANING CHECKER lasix Paroxysmal A-fib (HCC) Rate controlled DRY CLEANING CHECKER meds Hold Eliquis until ortho interventions BPH (benign prostatic hyperplasia) DRY CLEANING CHECKER flomax Dispo: Continue current care Most recent [...] aspration Mri R hip ordered * Shelley Floyd, CEDRICK - 02/18/2025 2:07 PM EDT 02/18/25 1254 PT Subjective Note Type Treatment/Progress Patient Room/Unit TCU;4N PT Subjective Comments #1 pt agreeable requests toilet. Discharge Information This progress note will serve as the discharge summary if no further therapy is provided prior to the patient being discharged from the hospital. Clinical Course spoke with nsfelicita previous to arrival Pain Screening PT/OT Patient Currently in Pain No Cognition Orientation Intact Additional comments [place]; had lg BM during therapy and states [...] update: pt's son is requesting SNF at [facility]. CC sentreferral via [facility], awaiting response. CC continues to follow. * Berenice Dallas DO - 02/18/2025 11:09 AM EDTAssociated Problem(s): NIGHAT (obstructive sleep apnea) CPAP at night RT * Berenice Dallas DO - 02/18/2025 11:09 AM EDTAssociated Problem(s): Dyslipidemia DRY CLEANING CHECKER Lipitor * Berenice Dallas DO - 02/18/2025 11:09 AM EDTAssociated Problem(s): Major neurocognitive disorder (HCC) AAO, ?dementia; ?able to take care of self? DRY CLEANING CHECKER Donepazil * Berenice Dallas DO - 02/18/2025 11:09 AM EDTAssociated Problem(s): Mood disorder DRY CLEANING CHECKER Cymbalta * Berenice Dallas DO - 02/18/2025 11:09 AM EDTAssociated Problem(s): Type 2 diabetes mellitus with diabetic polyneuropathy, without long-term curr ent use of insulin (HCC) Check A1C in am. 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 * Berenice Dallas DO - 02/18/2025 [...] with mid-range ejection fraction (HFmEF) (HCC) compensated DRY CLEANING CHECKER lasix * Berenice Dallas DO - 02/18/2025 11:09 AM EDTAssociated Problem(s): Paroxysmal A-fib (HCC) DRY CLEANING CHECKER meds Hold Eliquis until ortho interventions * Berenice Dallas DO - 02/18/2025 11:09 AM EDTAssociated Problem(s): BPH (benign prostatic hyperplasia) DRY CLEANING CHECKER flomax * Berenice Dallas DO - 02/18/2025 [...] sleep apnea) CPAP at night RT Dyslipidemia DRY CLEANING CHECKER Lipitor Major neurocognitive disorder (HCC) AAO, ?dementia; ?able to take care of self? 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 Environmental allergies Continue Flonase Hyperkalemia Resolved Rash monitor for now Dysphagia Speech eval, recs reviewed 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) compensated DRY CLEANING CHECKER lasix Paroxysmal A-fib (HCC) DRY CLEANING CHECKER meds Hold Eliquis until ortho interventions BPH (benign prostatic hyperplasia) DRY CLEANING CHECKER flomax Dispo: Continue current care Most recent [...] Dallas DO 02/18/2025 8:25 PM * Peggy Washington RRT - 02/17/2025 9:54 PM EDT 02/17/252153 Non-Invasive [...] - 02/17/2025 7:05 PM EDTAssociated Problem(s): Dyslipidemia DRY CLEANING CHECKER Lipitor * Berenice Dallas DO - 02/17/2025 7:05 PM EDTAssociated Problem(s): Major neurocognitive disorder (HCC) AAO, ?dementia; ?able to take care of self? DRY CLEANING CHECKER Donepazil * Berenice Dallas DO - 02/17/2025 7:05 PM EDTAssociated Problem(s): Mood disorder DRY CLEANING CHECKER Cymbalta * Berenice Dallas DO - 02/17/2025 7:05 PM EDTAssociated Problem(s): Type 2 diabetes mellitus with diabetic polyneuropathy, without long-term curr ent use of insulin (HCC) Check A1C in am. 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 * Berenice Dallas DO - 02/17/2025 7:05 PM EDTAssociated Problem(s): Hyperkalemia Resolved * Berenice Dallas DO - 02/17/2025 7:05 PM EDTAssociated Problem(s): Rash monitor for now * Berenice Dallas DO - 02/17/2025 7:05 PM EDTAssociated Problem(s): Dysphagia Speech eval, recs reviewed * Berenice Dallas DO - 02/17/2025 7:05 PM EDTAssociated Problem(s): 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) compensated DRY CLEANING CHECKER lasix * Berenice Dallas DO - 02/17/2025 7:05 PM EDTAssociated Problem(s): Paroxysmal A-fib (HCC) DRY CLEANING CHECKER meds Hold Eliquis until ortho interventions * Berenice Dallas DO - 02/17/2025 7:05 PM EDTAssociated Problem(s): BPH (benign prostatic hyperplasia) DRY CLEANING CHECKER flomax * Tita Marmolejo, Clerical Staff - 02/17/2025 3:05 PM EDT 02/17/2025: Discharge retail planning manager met with Patient to provide a Repis[facility] list for [facility] at the direction of the Paint Coating Machine Operator. Patient plan to review list and contact [...] to cope Impaired Communication Impaired Additional comments [place]; limited exam due to hyperfixation on BM [...] sleep apnea) CPAP at night RT Dyslipidemia DRY CLEANING CHECKER Lipitor Major neurocognitive disorder (HCC) AAO, ?dementia; ?able to take care of self? 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 Environmental allergies Continue Flonase Hyperkalemia Resolved Rash monitor for now Dysphagia Speech eval, recs reviewed 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) ([facility]) compensated DRY CLEANING CHECKER lasix Paroxysmal A-fib (HCC) DRY CLEANING CHECKER meds Hold Eliquis until ortho interventions BPH (benign prostatic hyperplasia) DRY CLEANING CHECKER flomax Dispo: Continue current care Most recent [...] Age over 80;Change in baseline mobility;Active with HH services prior to admission IP Mental Health Referral Pending No Who you interviewed In person interview with patient Mental Status Alert and oriented Decision Maker Patient Who does pt identify as their caregiver/support person who will be their active partner in the dc planning process Pt identified caregiver/support person for dc planning process Caregiver Name son: Herve King Caregiver Does patient need oil program compliance specialist? No Activities of Daily Living Prior to [...] not needed concern identified and addressed by Paint Coating Machine Operator APS/CPS Report Made No Anticipated post-acute care needs Home with OP Follow Up Discussed discharge plans with Patient/Family/Caregiver/Support Person Yes, Discussed with patient Discussed discharge plans with Care [facility] at [facility] Yes, with nurse in attendance;Yes, with doctor [...] PCP is Dr Choi and he utilizes [facility]. CC awaiting ortho consult and PT eval to further assist with discharge planning. * Evonne Marrufo CCC-SCALES INSPECTOR - 02/16/2025 11:35 AM EDT 02/16/25 1135 [...] 02/16/2025 9:49 AM EDTAssociated Problem(s): Dysphagia Ask SCALES INSPECTOR to see. This was mentioned to the [...] from the original note were not included. [facility] History and Physical Name: Steve King ADDRESS: [...] 3 years - no color change since eoperation. He has been taking apap for [...] Taking fluticasone propionate (FLONASE) 50 mcg/actuation Nasl [place], Suspension 2 Sprays by Nasal route 2 [...] now Rash Offer topical steroids Dysphagia Ask SCALES INSPECTOR to see. This was mentioned to the [...] 02/16/2025 8:37 AM Addn: records obtained from [facility]. Patient had Hip replacement about 2 [...] head and liner exchange for infection (CPT 50595 - 22 modifier for increased complexity) right hip surgical scar revision right hip placement of negative pressure wound dressing ANESTHESIA: General anesthesia ANTIBIOTIC: On scheduled antibiotics, DOSING PER NURSING CHART SURGEON: Mason Jacmoe DO Mica Builder: leon lamb. Needed for reduction, limb manipulation, tissue retraction, and wound closure as indicated. IMPLANTS: Implant Name Model No. Serial No. Lot No. Transition Manager LRB No. Used Action [id number] +4 10D [id number] Right 1 Implanted HEAD FEMORAL CERAMIC TS DELTA 08/30 40MM +1.5 - [id number] J&J:DEPUY:[employer] Right 1 Implanted SPECIMENS: Deep hip#1,#2,#3 [...] was sterilelyprepped and double-draped as described by [facility] division. A formal time-out was [...] was then irrigated out with a Pulsavac manager package. We then irrigated with 1 L of [...] arthrotomy procedure. In addition to the hip arthrotomyI spent approximately 45 minutes debriding soft tissue to eradicate infection. In addition I also remove the head and liner replacing it with new components. Revising this hardware carries additionalrisk with the procedure and adds to the operative time thus justifying an increased complexity modifier. Strict posterior hip precautions WBAT RLE Hip abduction pillow in bed Resume half dose eliquis POD1 until POD14 ID consult, appreciate recs, will plan for retirement oral suppression Mason Jacome DO [facility] Office: [phone], [phone] * Amanda Jones PA-C - 02/19/2025 1:00 [...] with head/liner exchange; Surgeon: Mason Jacome DO; Location:[facility]; Service: Orthopedics Allergies Allergen Reactions [...] thrombosis identified in the bilateral lower extremities. VA US LOWER EXTREMITY VENOUS BILATERAL Result Date: 03/02/2025 Conclusions * No evidence of deep vein thrombosis identified in the bilateral lower extremities. *No evidence of superficial thrombosis identified in the [...] reactive. Direct communication to care team using [employer] Secure Chat. Notification included: OZZIE FERNANDEZ Approximate [...] failure with mid-range ejection fraction (HFmEF) ([facility]) Paroxysmal A-fib ([facility]) BPH (benign prostatic hyperplasia) Shortness of breath [...] with head/liner exchange; Surgeon: Mason Jacome DO; Location:[facility]; Service: Orthopedics Meds: [...] Historical fluticasone propionate (FLONASE) 50 mcg/actuation Nasl [place], Suspension 2 Sprays by Nasal route 2 [...] IR department with questions or concerns. Signature: DES Cruz-Ray 03/02/25 1:51 PM * Quinten Perez MD - 03/02/2025 8:30 AM EDTAssociated Order(s): IP CONSULT TO CARDIOLOGY Heart & Vascular Consult Note PATIENT: Steve iKng 10 PCP: No Pcp, Per Patient Primary Decontamination Worker: Dr. Bosch at [facility] I would like to thank Ozzie [...] History reviewed. No pertinent past medical history. DRY CLEANING CHECKER Medications: Prior to Admission medications Medication Sig Start Date End Date Last Dose Authorizing Provider apixaban (ELIQUIS) 5 mg Oral Tablet Take 0.5 Tablets by mouth 2 times daily for 14 days. 02/23/25 03/09/25 Mason Jacome, atorvastatin (LIPITOR) 40 mg Oral Tablet Take [...] Historical fluticasone propionate (FLONASE) 50 mcg/actuation Nasl [place], Suspension 2 Sprays by Nasal route 2 [...] with head/liner exchange; Surgeon: Mason Jacome DO; Location:[facility] OR; Service: Orthopedics Allergy [...] mid-range ejection fraction (HFmEF) (HCC) Paroxysmal A-fib ([facility]) BPH (benign prostatic hyperplasia) Right hip joint [...] most recent cardiovascular imaging studies available in [facility] EMR were reviewed at time of consultation [...] still being optimized Does the patient have MEMBER OF CONGRESS?: No If no: GDMT still being optimized Has the patient completed Cardiac Rehab for Heart Failure?: No If no: Not a Candidate If not a candidate: Other Are there Advanced Care Planning (ACP) documents on file?: No If no, was ACP discussed with the patient?: No Will continue to optimize GDMT and device-based therapies for HFrEF.: Last Reviewed/Updated: 03/02/25 Last Reviewed/Updated By: Ricarda Velasquez APRN Exam: Pt lying in bed in no [...] MR, PASP 40 - per notes at [facility] Sep 2024, was considering valve surgery, per son- was told he is not a good candidate - No GDMT d/t hypotension- on midodrine now PAF s/p DCCV Jun 2024 - [id number] score is 5 with 6.7% annual stroke [...] gtt Further input from Dr. Chris Velasquez, [facility] 03/02/2025 Disposition Perspective - [...] abd going to lf chest, yesterday, has had this pain off [...] making in its entirety. Quinten Perez MD, [facility] * Katie Viera APRN - 02/23/2025 9:59 [...] weeks ago. He was transferred [facility] due to concerns of fluid collection at [...] true Transportation Needs: No Transportation Needs (02/16/2025) [facility] IP Transportation In the past 12 months, has lack of reliable transportation kept you from medical appointments, meetings, work or from getting things needed for daily living?: No Physical Activity: Inactive (02/16/2025) Exercise Vital Sign Days of Exercise per Week: 0 days Minutes of Exercise per Session: 0 min Stress: No Stress Concern Present (02/16/2025) [employer] [place] [employer] - Occupational Stress Questionnaire Feeling of Stress : Only a little Social Connections: Not At Risk (07/08/2024) Received from [facility] Family and Community Support If for any reason you need help with day-to-day activities such as bathing, preparing meals, shopping, managing finances, etc., do you get the help you need?: I don't need any help How often do you feel lonely or isolated from those around you?: Never Intimate Partner Violence: Not At Risk (07/08/2024) Received from [facility] Abuse Screen Feels Unsafe at Home or Work/School: no Feels Threatened by Someone: no Does Anyone Try to Keep You From Having Contact with Others or Doing Things Outside Your Home?: no Physical Signs of Abuse Present: no Housing Stability: Not At Risk (07/08/2024) Received from [facility] Housing Stability Current Living Arrangements: home [...] Taking fluticasone propionate (FLONASE) 50 mcg/actuation Nasl [place], Suspension 2 Sprays by Nasal route 2 [...] Litzy Sepulveda APRN 5 mg at 02/22/25 2143 DULoxetine (CYMBALTA) capsule 60 mg 60 mg Oral Daily Litzy Sepulveda APRN 60 mg at 02/23/25 0824 fluticasone propionate (FLONASE) 50 mcg/actuation nasal spray 2 [place] 2 [place] Nasal BID PRN Litzy Sepulveda APRN fUROsemide (LASix) tablet 20 mg 20 mg Oral Daily Litzy Sepulveda APRN 20 mg at 02/23/25 0824 glucagon (GLUCAGEN) injection 1 mg 1 mg Intramuscular PRN BoyBerenice nguyen DO And sterile water injection 1 mL [...] ill, fatigued, generally weak, +hard of hearing PLANT WORKER: Negative for headache, focal weakness, speech [...] Active LDAs PIV Line Duration Peripheral IV 06/06/25 1130 Left Forearm Ultrasound guided 3 days [...] head and liner exchange for infection. IntraOp cultur es were obtained. # Prior history of MRSA [...] with Katie Viera APRN. Reviewed documentation per AIR QUALITY TECHNICIAN. Nick Mandujano MD * Mason Jacome, DO - 02/20/2025 6:59 AM EDTAssociated Order(s): IP CONSULT TO ORTHOPEDIC SURGERY Images from the original note were not included. Consult Note Name: Steve King PCP: No Pcp, Per Patient Chief Complaint: R hip pain s/p MEKA (Hiro May 2022) HPI: 89 y.o. male who [facility]. He [place] away. [...] Historical fluticasone propionate (FLONASE) 50 mcg/actuation Nasl [place], Suspension 2 Sprays by Nasal route 2 [...] Berenice Dallas S, DO, 650 mgat 02/18/25 1312 atorvastatin (LIPITOR) tablet 40 mg, 40 mg, Oral, Daily, Litzy Sepulveda, AIR QUALITY TECHNICIAN, 40 mg at 02/18/25802 calcium carbonate-vitamin D 500 mg-5 mcg (200 unit) per tablet 1 Tablet, 1 Tablet, Oral, Daily WM, Derick, Litzy, AIR QUALITY TECHNICIAN, 1 Tablet at 02/18/25802 donepeziL (ARICEPT) tablet 5 mg, 5 mg, Oral, Nightly, Ana Sepulvedaodie, AIR QUALITY TECHNICIAN, 5 mg at 02/17/252022 DULoxetine (CYMBALTA) capsule 60 mg, 60 mg, Oral, Daily, Melissa Sepulvedae, AIR QUALITY TECHNICIAN, 60 mg at 02/18/25803 fluticasone propionate (FLONASE) 50 mcg/actuation nasal spray 2 [place], 2 [place], Nasal, BID PRN, Melissa Sepulvedae, AIR QUALITY TECHNICIAN fUROsemide (LASix) tablet 20 mg, 20 mg, Oral, Daily, Melissa Sepulvedae, AIR QUALITY TECHNICIAN, 20 mg at 02/18/25803 melatonin tablet 5 mg, 5 mg, Oral, Nightly PRN, Ana Sepulvedaodie, AIR QUALITY TECHNICIAN, 5 mg at 02/17/252023 oxyCODONE (ROXICODONE) immediate release tablet 5 mg, 5 mg, Oral, Q4H PRN, Berenice Dallas, polyethylene glycol (GLYCOLAX, MIRALAX) packet 17 g, 17 g, Oral, Daily, Sameer Ortega MD, 17 g at 02/18/25802 polyvinyl alcohol (LIQUIFILM TEARS) 1.4 % ophthalmic solution 1 Drop, 1 Drop, Both Eyes, PRN, Melissa Sepulvedae, AIR QUALITY TECHNICIAN senna (SENOKOT) tablet 17.2 mg, 17.2 mg, Oral, BID, Saemer Ortega MD, 17.2 mg at 02/18/25802 tamsulosin (FLOMAX) capsule 0.8 mg, 0.8 mg, Oral, Daily, Sepulveda, Litzy, AIR QUALITY TECHNICIAN, 0.8 mg at 02/18/25 0803 Vitals: 02/18/25 0800 BP: 100/66 Pulse: 93 [...] sleep apnea) Dyslipidemia Major neurocognitive disorder ([facility]) Mood disorder Type 2 diabetes mellitus with diabetic polyneuropathy, without long-term current use of insulin ([facility]) Environmental allergies Hyperkalemia Rash Dysphagia 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) ([facility]) Paroxysmal A-fib ([facility]) BPH (benign prostatic hyperplasia) 1) Right hip [...] IR with questions or concerns. Signature: Merry M Pangallo, PA-C 02/18/25 3:37 PM documented in this [...] -- -- -- -- -- QJ 03/02/25 0129 -- -- 80 -- -- -- -- -- -- -- -- -- -- -- -- -- Q 03/01/252346 97 ??F (36.1 ??C) -- 87 16 106/65 75 -- -- -- -- -- -- -- -- -- -- JENS 03/01/25 234 -- -- 85 -- -- -- -- -- -- -- -- -- -- -- -- -- Q 03/01/252057 97.9 ??F (36.6 ??C) -- 79 16 99/65 72 -- -- 100 % -- 2 lpm Nasal cannula -- -- -- -- JENS 03/01/25 170 97.5 ??F (36.4 ??C) -- 80 16 [...] Nasal cannula -- -- -- -- 03/01/25 1126 -- -- 77 -- -- -- -- -- -- -- -- -- -- -- -- -- MG 03/01/25 1017 -- -- -- 16 92/ 83 -- -- -- -- -- -- -- -- -- -- 03/01/25 09:20:27 -- -- 69 -- 93/65 [...] -- Room Air -- -- -- -- SH CT PULMONARY ANGIOGRAM, 03/01/2025 4:36 PM IMPRESSION: [...] from a logistics standpoint. Mason Jacome DO [facility] Office: [phone], [phone] * Utilization Review Notes - Mitali Szymanski RN - 02/27/2025 11:06 AM EDT Admit as ip 02/20/25. Ip order in [facility]. Cont stay review. Sp 02/22/25 Right [...] to cefazolin per ID Dcplan- referral to [place] * Utilization Review Notes - Mitali Szymanski RN - 02/24/2025 10:42 AM EDT Admit as ip 02/20/25. Ip order in [facility]. Cont stay review. Sp 02/22/25 Right [...] continue to follow Dcplan- referral sent to [facility] * Utilization Review Notes - [facility] [...] update: pt's son is requesting SNF at [facility]. CC sent referral via [employer], awaiting response. CC continues to follow * [...] update: pt's son is requesting SNF at [facility]. CC sent referral via [facility], awaiting response. CC continues to follow * [...] update: pt's son is requesting SNF at [facility]. CC sent referral via [employer], awaiting response. CC continues to follow * [...] update: pt's son is requesting SNF at [facility]. CC sent referral via [employer], awaiting response. CC continues to follow * [...] Patient to provide a Repisodic list for Prison Facility at the direction of the Paint Coating Machine Operator. Patient plan to review list and contact [...] MED SURG Admitted Inpatient 02/16/25 changed to [facility] 02/17/25 Observaton order on chart. Admission for [...] Other(s) * Plan of Care - Sugar العراقي CCC-SCALES INSPECTOR - 02/17/2025 10:14 AM EDT Clinical Swallow [...] gas, ?regurgitation of food ST POC: Complete, SCALES INSPECTOR will sign off This note is to serve as discharge summary if no further Speech services are provided before being discharged from the hospital. 02/17/25 0926 Clinical Swallow Evaluation (CSE) Patient Seen Today? Yes Note Type Evaluation Time In 925 Time Out 0950 Admitting Diagnosis right hip pain Speech Therapy [...] Goal none voiced Patient/Family Education Completed Yes SCALES INSPECTOR Recommendation No post discharge therapy recommended Frequency/Follow up Complete * Plan of Care - Mason Jacome DO - 02/17/2025 8:50 AM EDT Images from the original note were not included. Ortho plan 02/17: rec R hip aspiration No surgical plans as of now Mason Jacome DO [facility] Office: [phone], [phone] * Plan of Care - Litzy Sepulveda APRN - 02/15/2025 7:44 PM EDT Recvd report from [facility] - 2 years ago R hip replacement, [...] EDT Office Visit [facility] Infectious Disease [facility] [address] [place] [address] [place] [phone] Nick Elkins MD [address] [place] [address] Pending Results Name Type Priority [...] head/liner exchange; Surgeon: Mason Jacome DO; Location: [facility] OR; Service: Orthopedics Meds: [...] Historical fluticasone propionate (FLONASE) 50 mcg/actuation Nasl [place], Suspension 2Sprays by Nasal route 2 times [...] head/liner exchange; Surgeon: Mason Jacome DO; Location: [facility] OR; Service: Orthopedics Allergies [...] reactive. Direct communication to care team using [employer] Secure Chat. Notification included: OZZIE VEGARUIZ Approximate date and time: 03/01/2025 6:07 PM [...] failure with mid-range ejection fraction (HFmEF) ([facility]) Paroxysmal A-fib (HCC) BPH (benign prostatic hyperplasia) [...] to contact me through hospital paging service withquestions. IP CONSULT TO PHARMACY Routine [...] progress. Heart & Vascular Consult Note PATIENT: Stvee King 10 PCP: No Pcp, Per Patient Primary Decontamination Worker: Dr. Bosch at [facility] I would like to thank Ozzie [...] History reviewed. No pertinent past medical history. DRY CLEANING CHECKER Medications: Prior to Admission medications Medication Sig Start Date End Date Last Dose Authorizing Provider apixaban (ELIQUIS) 5 mg Oral Tablet Take 0.5 Tablets by mouth 2 timesdaily for 14 days. 02/23/25 03/09/25 Mason Jacome, atorvastatin (LIPITOR) 40 mg Oral Tablet Take 40 mg by mouth daily.Taking Provider, Historical calcium carbonate-vitamin D3 250 mg-3.125 mcg (125 unit) Oral Tablet Take1 Tablet by mouth daily. Taking Provider, Historical ceFAZolin in dextrose (ANCEF) 2 gram/100 mL IV Piggyback Inject 100 mLinto the vein every 8 hours for 113 doses. 02/27/25 04/06/25 Katie Viera, LEESA donepeziL (ARICEPT) 5 mg Oral Tablet Take 5 mg by mouth nightly. TakingProvider, Historical DULoxetine (CYMBALTA) 60 mg Oral Capsule, Delayed Release(E.C.) Take 60 mgby mouth daily. Taking Provider, Historical fluticasone propionate (FLONASE) 50 mcg/actuation Nasl [place], Suspension 2Sprays by Nasal route 2 times [...] head/liner exchange; Surgeon: Mason Jacome DO; Location: [facility]; Service: Orthopedics Allergy Allergies Allergen Reactions Tetanus Vaccines And Toxoid Swelling Pt also states blisters with swelling Patient Active Problem List Diagnosis Right hip pain NIGHAT (obstructive sleep apnea) Dyslipidemia Major neurocognitive disorder ([facility]) Mood disorder Type 2 diabetes mellitus with diabetic polyneuropathy, without long-termcurrent use of insulin ([facility]) Environmental allergies Hyperkalemia Rash Dysphagia 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) ([facility]) Paroxysmal A-fib ([facility]) BPH (benign prostatic hyperplasia) Right hip joint [...] most recent cardiovascular imaging studies available in [facility] EMR werereviewed at time of consultation Heart [...] still being optimized Does the patient have MEMBER OF CONGRESS?: No If no: GDMT still being optimized Has the patient completed Cardiac Rehab for Heart Failure?: No If no: Not a Candidate If not a candidate: Other Are there Advanced Care Planning (ACP) documents on file?: No If no, was ACP discussed with the patient?: No Will continue to optimize GDMT and device-based therapies for HFrEF.: Last Reviewed/Updated: 03/02/25 Last Reviewed/Updated By: Ricarda Velasquez,AIR QUALITY TECHNICIAN Exam: Pt lying in bed in no [...] to LAD - code chest pain called 6/15, pain is actually LLQ of abd - trop 36-37, flat/not c/w ACS - ECG unchanged - GDMT: statin, hep gtt, start ASA HFrEF VHD - 03/01/25 EF 20%, grade III DD, low flow, low gradient severe , mod MR,PASP 40 - per notes at [facility] Sep 2024, was considering valve surgery, person- was told he is not a good candidate - No GDMT d/t hypotension- on midodrine now PAF s/p DCCV Jun 2024 - [id number] score is 5 with 6.7% annual stroke [...] gtt Further input from Dr. Chris Velasquez, AIR QUALITY TECHNICIAN Heart and Vascular 03/02/2025 Disposition Perspective - [...] rt abd going to chest, yesterday, has hadthis pain off and [...] making in its entirety. Quinten Perez MD, [facility] ECG AND WAVEFORMS - TELEMETRY Routine 03/01/2025 [...] a right total hip replacement initially back inSept2021. He says he has had issues since [...] weeks ago. He was transferred here from [facility] to concerns of fluid collection at [...] true Transportation Needs: No Transportation Needs (02/16/2025) [facility] IP Transportation In the past 12 months, has lack of reliable transportation kept you frommedical appointments, meetings, work or from getting things needed fordaily living?: No Physical Activity: Inactive (02/16/2025) Exercise Vital Sign Days of Exercise per Week: 0 days Minutes of Exercise per Session: 0 min Stress: No Stress Concern Present (02/16/2025) [employer] [place] [facility] [employer] - Occupational StressQuestionnaire Feeling of Stress : Only a little Social Connections: Not At Risk (07/08/2024) Received from [facility] Family and Community Support If for any reason you need help with day-to-day activities such asbathing, preparing meals, shopping, managing finances, etc., do you getthe help you need?: I don't need any help How often do you feel lonely or isolated from those around you?: Never Intimate Partner Violence: Not At Risk (07/08/2024) Received from [facility] Abuse Screen Feels Unsafe at Home or Work/School: no Feels Threatened by Someone: no Does Anyone Try to Keep You From Having Contact with Others or DoingThings Outside Your Home?: no Physical Signs of Abuse Present: no Housing Stability: Not At Risk (07/08/2024) Received from [facility] Housing Stability Current Living Arrangements: home [...] Taking fluticasone propionate (FLONASE) 50 mcg/actuation Nasl [place], Suspension2 Sprays by Nasal route 2 times [...] aluminum & magnesium hydroxide-simethicone 200-200-20 mg/5 mL [id number] mL 30 mL Oral Q4H PRN Mason Jacome DO apixaban (ELIQUIS) tablet 2.5 mg 2.5 mg Oral BID Mason Jacome DO2.5 mg at 02/23/25 0823 atorvastatin (LIPITOR) tablet 40 mg 40 mg Oral Daily Litzy Sepulveda APRN 40 mg at 02/23/25 0824 bacitracin-polymyxin b (POLYSPORIN) ophthalmic ointment Left Eye Berenice Merchant DO Given at 02/23/25 0839 [START ON [...] 25 mL Intravenous PRN Berenice Dallas, DO docusate sodium (COLACE) capsule 100 mg 100 mg Oral BID Mason Jacome DO 100 mg at 02/23/25 0824 donepeziL (ARICEPT) tablet 5 mg 5 mg Oral Nightly Litzy Sepulveda APRN5 mg at 02/22/25 2143 DULoxetine (CYMBALTA) capsule 60 mg 60 mg Oral Daily Litzy Sepulveda APRN 60 mg at 02/23/25 0824 fluticasone propionate (FLONASE) 50 mcg/actuation nasal spray 2 [place] 2Spray Nasal BID PRN Litzy Sepulveda APRN [...] Berenice Dallas DO 10 Units at 02/22/25 214 magnesium hydroxide (MILK OF MAGNESIA) 400 mg/5 [...] Berenice Dallas DO 125 mL/hr at 02/23/25 95765,750 mg at 02/23/25 0839 Review of Systems: Constitutional: negative for fever, chills and night sweats, feels ill,fatigued, generally weak, +hard of hearing PLANT WORKER: Negative for headache, focal weakness, speech [...] [facility]b St[facility] and was [...] permanent lines until surveillance blood cx negative [id number] hours. Monitor fever/BP curve, I/O's, serum electrolytes, [...] 9:03 AM EDT Right hip joint effusion [place] I&D PELVIS/HIP JT AREA DEEP ABSCESS/HEMATOMA 02/22/2025 [...] lower urinary tract symptoms present Paroxysmal A-fib ([facility]) 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) ([facility]) Dysphagia, unspecified type Rash Hyperkalemia Environmental allergies Type 2 diabetes mellitus with diabetic polyneuropathy, without long-term current use of insulin ([facility]) Mood disorder Major neurocognitive disorder ([facility]) Dyslipidemia NIGHAT (obstructive sleep apnea) Right hip [...] 40 mg, 40 mg, Oral, Daily, Melissa Sepulvedae,AIR QUALITY TECHNICIAN, 40 mg at 02/18/25 08 calcium carbonate-vitamin D 500 mg-5 mcg (200 unit) per tablet 1 Tablet,1 Tablet, Oral, Daily WM, Sepulveda, Litzy, AIR QUALITY TECHNICIAN, 1 Tablet at donepeziL (ARICEPT) tablet 5 mg, 5 mg, Oral, Nightly, Sepulveda, Litzy,AIR QUALITY TECHNICIAN, 5 mg at 02/17/252022 DULoxetine (CYMBALTA) capsule 60 mg, 60 mg, Oral, Daily, Derick, Litzy,AIR QUALITY TECHNICIAN, 60 mg at 02/18/25803 fluticasone propionate (FLONASE) 50 mcg/actuation nasal spray 2 [place], 2Spray, Nasal, BID PRN, Melissa Sepulvedae, AIR QUALITY TECHNICIAN fUROsemide (LASix) tablet 20 mg, 20 mg, Oral, Daily, Melissa Sepulvedae,AIR QUALITY TECHNICIAN, 20 mg at 02/18/25803 melatonin tablet 5 mg, 5 mg, Oral, Nightly PRN, Derick Litzy, AIR QUALITY TECHNICIAN, 5mg at 02/17/252023 oxyCODONE (ROXICODONE) immediate release tablet 5 mg, 5 mg, Oral, Q4HPRN, Berenice Dallas S, DO polyethylene glycol (GLYCOLAX, MIRALAX) packet 17 g, 17 g, Oral, Daily,Sameer Ortega MD, 17 g at 02/18/25802 polyvinyl alcohol (LIQUIFILM TEARS) 1.4 % ophthalmic solution 1 Drop, 1Drop, Both Eyes, PRN, Melissa Sepulvedae, AIR QUALITY TECHNICIAN senna (SENOKOT) tablet 17.2 mg, 17.2 mg, Oral, BID, Sameer Ortega MD,17.2 mg at 02/18/25802 tamsulosin (FLOMAX) capsule 0.8 mg, 0.8 mg, Oral, Daily, Sepulveda, Litzy,AIR QUALITY TECHNICIAN, 0.8 mg at 02/18/25 08 Vitals: 02/18/25 [...] failure with mid-range ejection fraction (HFmEF) ([facility]) Paroxysmal A-fib ([facility]) BPH (benign prostatic hyperplasia) 1) Right hip [...] y.o. male who [facility]. [place]. His index MEKA was years ago by Dr. Waespe. He has never liked hiship. He only [...] Historical fluticasone propionate (FLONASE) 50 mcg/actuation Nasl [place], Suspension 2Sprays by Nasal route 2 times [...] GLUCOSE METER POC (03/08/2025 8:46 AM EDT) Glucose Meter POC 163(H) 70 - 100 mg/dL 03/08/2025 8:48 AM EDT [facility] Sample Type Capillary 03/08/2025 8:48 AM EDT [facility] Patient Status Non-Critical Patient 03/08/2025 8:48 AM EDT [facility] Blood BLOOD SPECIMEN / Unknown 03/08/2025 8:46 AM EDT 03/08/2025 8:48 AM EDT us Stephen Covarrubias MD POINT OF CARE TEST ORDERABLE S Final Result Performing Organization Address [facility]/ZIP Co de Phone Number [facility] [address] [place] [address] * ECG AND WAVEFORMS - TELEMETRY (03/08/2025 7:39 AM EDT) [facility] ECG INTERPRET Sinus Rhythm w/ First Degree AVB [facility] 03/08/2025 7:39 AM EDT Narrative [facility] - 03/08/2025 7:42 AM EDT 1ST DEGREE HB//ROUTINE//AC [place] 0.25 QRS 0.13 RR 0.74 QT 0.48 QTc 0.56 See Clinical Report link for waveform capture us Unknown Provider POINT OF CARE CARDIOLOGY Final Result [facility] [address] [place] [id number] * (ABNORMAL) CBC (03/08/2025 6:54 AM EDT) WBC 7.0 3.7 - 10.3 x10(3)/mcL 03/08/2025 7:02 AM EDT [facility] RBC 2.95(L) 4.60 - 6.10 x10(6)/mcL 03/08/2025 7:02 AM EDT [facility] Hgb 9.1(L) 13.7 - 17.5 g/dL 03/08/2025 7:02 AM EDT [facility] Hct 28.9(L) 40.0 - 51.0 % 03/08/2025 7:02 AM EDT [facility] MCV 98.0 80.0 - 100.0 fL 03/08/2025 7:02 AM EDT [facility] MCH 30.8 26.0 - 34.0 pg 03/08/2025 7:02 AM EDT [facility] MCHC 31.5 30.7 - 35.5 g/dL 03/08/2025 7:02 AM EDT [facility] RDW 14.7 <=14.9 % 03/08/2025 7:02 AM EDT [facility] Platelet 365 155 - 369 x10(3)/mcL 03/08/2025 7:02 AM EDT [facility] MPV 8.8 8.8 - 12.5 fL 03/08/2025 7:02 AM EDT [facility] Blood VENOUS STRUCTURE / Unknown Collection / Unknown 03/08/2025 6:54 AM EDT 03/08/2025 7:00 AM EDT us Ozzie Fernandez MD HEMATOLOGY ORDERABLES Final Resu lt [facility] [address] [place], [place] [id number] * (ABNORMAL) GLUCOSE METER POC (03/07/2025 8:18 PM EDT) [facility] Glucose Meter POC 212(H) 70 - 100 mg/dL 03/07/2025 8:20 PM EDT [facility] Sample Type Capillary 03/07/2025 8:20 PM EDT [facility] Patient Status Non-Critical Patient 03/07/2025 8:20 PM EDT [facility] Blood BLOOD SPECIMEN / Unknown 03/07/2025 8:18 PM EDT 03/07/2025 8:20 PM EDT us Stephen Covarrubias MD POINT OF CARE TEST ORDERABLE S Final Result Performing Organization Address City/[facility]/ZIP Co de Phone Number [facility] [address] [place] [address] * ECG AND WAVEFORMS - TELEMETRY (03/07/2025 7:00 PM EDT) ECG INTERPRET NSR [facility] 03/07/2025 7:00 PM EDT Narrative [facility] - 03/07/2025 9:09 PM EDT Routine 1900/ AVB/IVCD/qj [place] 0.26 QRS 0.12 RR 0.76 QT 0.41 QTc 0.47 See Clinical Report link for waveform capture us Unknown Provider POINT OF CARE CARDIOLOGY Final Result Performing Organization Address [facility] Co de Phone Number [facility] [address] [place] [phone] * (ABNORMAL) GLUCOSE METER POC (03/07/2025 5:41 PM EDT) Glucose Meter POC 169(H) 70 - 100 mg/dL 03/07/2025 5:43 PM EDT [facility] Sample Type Capillary 03/07/2025 5:43 PM EDT [facility] Patient Status Non-Critical Patient 03/07/2025 5:43 PM EDT [facility] Blood BLOOD SPECIMEN / Unknown 03/07/2025 5:41 PM EDT 03/07/2025 5:43 PM EDT Stephen Covarrubias MD POINT OF CARE TEST ORDERABLE S Final Result Performing Organization Address City/[facility]/ZIP Co de Phone Number [facility] [address] [place] [address] * (ABNORMAL) GLUCOSE METER POC (03/07/2025 11:23 AM EDT) Glucose Meter POC 146(H) 70 - 100 mg/dL 03/07/2025 11:25 AM EDT [facility] Sample Type Capillary 03/07/2025 11:25 AM EDT [facility] Patient Status Non-Critical Patient 03/07/2025 11:25 AM EDT [facility] Blood BLOOD SPECIMEN / Unknown 03/07/2025 11:23 AM EDT 03/07/2025 11:25 AM EDT Stephen Covarrubias MD POINT OF CARE TEST ORDERABLE S Final Result Performing Organization Address [facility] Co de Phone Number [facility] [address] [place] [address] * (ABNORMAL) GLUCOSE METER POC (03/07/2025 8:15 AM EDT) Glucose Meter POC 127(H) 70 - 100 mg/dL 03/07/2025 8:16 AM EDT [facility] Sample Type Capillary 03/07/2025 8:16 AM EDT [facility] Patient Status Non-Critical Patient 03/07/2025 8:16 AM EDT [facility] Blood BLOOD SPECIMEN / Unknown 03/07/2025 8:15 AM EDT 03/07/2025 8:16 AM EDT Stephen Covarrubias MD POINT OF CARE TEST ORDERABLE S Final Result Performing Organization Address [facility] Co de Phone Number [facility] [address] [place] [address] * ECG AND WAVEFORMS - TELEMETRY (03/07/2025 7:18 AM EDT) ECG INTERPRET First Degree Sinus Rhythm [facility] Comment:First degree AV w/ P VCs 03/07/2025 7:18 AM EDT Narrative [facility] - 03/07/2025 7:22 AM EDT 1ST DEGREE AV//PVC//ROUTINE//AC [place] 0.28 QRS 0.15 RR 0.79 QT 0.45 QTc 0.50 See Clinical Report link for waveform capture us Unknown Provider POINT OF CARE CARDIOLOGY Final Result Performing Organization Address City/[facility]/ZIP Co de Phone Number [facility] [address] [place] [address] * (ABNORMAL) GLUCOSE METER POC (03/06/2025 8:48 PM EDT) Glucose Meter POC 216(H) 70 - 100 mg/dL 03/06/2025 8:49 PM EDT [facility] Sample Type Capillary 03/06/2025 8:49 PM EDT [facility] Patient Status Non-Critical Patient 03/06/2025 8:49 PM EDT [facility] Blood BLOOD SPECIMEN / Unknown 03/06/2025 8:48 PM EDT 03/06/2025 8:49 PM EDT us Stephen Covarrubias MD POINT OF CARE TEST ORDERABLE S Final Result Performing Organization Address [facility] Co de Phone Number [facility] [address] [place] [address] * ECG AND WAVEFORMS - TELEMETRY (03/06/2025 8:11 PM EDT) ECG INTERPRET NSR [facility] 03/06/2025 8:11 PM EDT Narrative [facility] - 03/06/2025 8:20 PM EDT HC/ROUTINE/FIRST DEGREE/IVCD [place] 0.28 QRS 0.13 QT 0.41 See Clinical Report link for waveform capture us Unknown Provider POINT OF CARE CARDIOLOGY Final Result Performing Organization Address City/[facility]/ZIP Co de Phone Number [facility] [address] [place] [address] * (ABNORMAL) GLUCOSE METER POC (03/06/2025 4:26 PM EDT) Glucose Meter POC 171(H) 70 - 100 mg/dL 03/06/2025 4:27 PM EDT [facility] Sample Type Capillary 03/06/2025 4:27 PM EDT [facility] Patient Status Non-Critical Patient 03/06/2025 4:27 PM EDT [facility] Blood BLOOD SPECIMEN / Unknown 03/06/2025 4:26 PM EDT 03/06/2025 4:27 PM EDT us Stephen Covarrubias MD POINT OF CARE TEST ORDERABLE S Final Result Performing Organization Address [facility] Co de Phone Number [facility] [address] [place] [address] * (ABNORMAL) GLUCOSE METER POC (03/06/2025 11:37 AM EDT) Glucose Meter POC 177(H) 70 - 100 mg/dL 03/06/2025 11:38 AM EDT [facility] Sample Type Venous 03/06/2025 11:38 AM EDT [facility] Patient Status Non-Critica l Patient 03/06/2025 11:38 AM EDT [facility] Blood BLOOD SPECIMEN / Unknown 03/06/2025 11:37 AM EDT 03/06/2025 11:38 AM EDT us Stephen Covarrubias MD POINT OF CARE TEST ORDERABLE S Final Result Performing Organization Address [facility] de Phone Number [facility] [address] [place] [address] * GLUCOSE METER POC (03/06/2025 7:30 AM EDT) Glucose Meter POC 96 70 - 100 mg/dL 03/06/2025 7:32 AM EDT [facility] Sample Type Capillary 03/06/2025 7:32 AM EDT [facility] Patient Status Non-Critical Patient 03/06/2025 7:32 AM EDT [facility] Blood BLOOD SPECIMEN / Unknown 03/06/2025 7:30 AM EDT 03/06/2025 7:32 AM EDT us Stephen Covarrubias MD POINT OF CARE TEST ORDERABLE S Final Result Performing Organization Address City/[facility]/ZIP Co de Phone Number [facility] [address] [place] [address] * ECG AND WAVEFORMS - TELEMETRY (03/06/2025 7:28 AM EDT) [facility] ECG INTERPRET NSR [facility] 03/06/2025 7:28 AM EDT Narrative [facility] - 03/06/2025 7:35 AM EDT 1ST DEGREE AV//ROUTINE//AC [place] 0.25 QRS 0.16 RR 0.87 QT 0.46 QTc 0.49 See Clinical Report link for waveform capture us Unknown Provider POINT OF CARE CARDIOLOGY Final Result Performing Organization Address [facility] Co de Phone Number [facility] [address] [place] [address] * (ABNORMAL) CBC (03/06/2025 6:19 AM EDT) [facility] WBC 6.2 3.7 - 10.3 x10(3)/mcL 03/06/2025 6:39 AM EDT [facility] RBC 2.95(L) 4.60 - 6.10 x10(6)/mcL 03/06/2025 6:39 AM EDT [facility] Hgb 8.9(L) 13.7 - 17.5 g/dL 03/06/2025 6:39 AM EDT [facility] Hct 28.3(L) 40.0 - 51.0 % 03/06/2025 6:39 AM EDT [facility] MCV 95.9 80.0 - 100.0 fL 03/06/2025 6:39 AM EDT [facility] MCH 30.2 26.0 - 34.0 pg 03/06/2025 6:39 AM EDT [facility] MCHC 31.4 30.7 - 35.5 g/dL 03/06/2025 6:39 AM EDT [facility] RDW 14.4 <=14.9 % 03/06/2025 6:39 AM EDT [facility] Platelet 373(H) 155 - 369 x10(3)/mcL 03/06/2025 6:39 AM EDT [facility] MPV 9.1 8.8 - 12.5 fL 03/06/2025 6:39 AM EDT [facility] Blood VENOUS STRUCTURE / Unknown Venipuncture / Unknown 03/06/2025 6:19 AM EDT 03/06/2025 6:33 AM EDT us Ozzie Fernandez MD HEMATOLOGY ORDERABLES Final Resu lt Performing Organization Address City/[facility]/ZIP Co de Phone Number [facility] [address] [place] [address] * ECG AND WAVEFORMS - TELEMETRY (03/06/2025 1:27 AM EDT) ECG INTERPRET Error [facility] 03/06/2025 1:27 AM EDT Narrative [facility] - 03/06/2025 1:29 AM EDT VTACH See Clinical Report link for waveform capture us Unknown Provider POINT OF CARE CARDIOLOGY Final Result Performing Organization Address [facility] Co de Phone Number [facility] [address] [place] [address] * ECG AND WAVEFORMS - TELEMETRY (03/05/2025 9:42 PM EDT) ECG INTERPRET First Degree Sinus Rhythm [facility] 03/05/2025 9:42 PM EDT Narrative [facility] - 03/05/2025 9:46 PM EDT HC/ROUTINE/FIRST DEGREE/IVCD/PAC'S [place] 0.29 QRS 0.16 QT 0.42 See Clinical Report link for waveform capture us Unknown Provider POINT OF CARE CARDIOLOGY Final Result Performing Organization Address [facility] Co de Phone Number [facility] [address] [place], [place] [id number] * (ABNORMAL) GLUCOSE METER POC (03/05/2025 8:50 PM EDT) Glucose Meter POC 218(H) 70 - 100 mg/dL 03/05/2025 8:51 PM EDT [facility] Sample Type Capillary 03/05/2025 8:51 PM EDT [facility] Patient Status Non-Critical Patient 03/05/2025 8:51 PM EDT [facility] Blood BLOOD SPECIMEN / Unknown 03/05/2025 8:50 PM EDT 03/05/2025 8:51 PM EDT Stephen Covarrubias MD POINT OF CARE TEST ORDERABLE S Final Result Performing Organization Address [facility]/ZIP Co de Phone Number [facility] [address] [place] [address] * (ABNORMAL) GLUCOSE METER POC (03/05/2025 4:34 PM EDT) Glucose Meter POC 163(H) 70 - 100 mg/dL 03/05/2025 4:35 PM EDT [facility] Sample Type Capillary 03/05/2025 4:35 PM EDT [facility] Patient Status Non-Critical Patient 03/05/2025 4:35 PM EDT [facility] Blood BLOOD SPECIMEN / Unknown 03/05/2025 4:34 PM EDT 03/05/2025 4:35 PM EDT Stephen Covarrubias MD POINT OF CARE TEST ORDERABLE S Final Result Performing Organization Address City/[facility]/ZIP Co de Phone Number [facility] [address] [place] [address] * (ABNORMAL) GLUCOSE METER POC (03/05/2025 11:51 AM EDT) Glucose Meter POC 153(H) 70 - 100 mg/dL 03/05/2025 11:53 AM EDT [facility] Sample Type Capillary 03/05/2025 11:53 AM EDT [facility] Patient Status Non-Critical Patient 03/05/2025 11:53 AM EDT [facility] Blood BLOOD SPECIMEN / Unknown 03/05/2025 11:51 AM EDT 03/05/2025 11:53 AM EDT Stephen Covarrubias MD POINT OF CARE TEST ORDERABLE S Final Result Performing Organization Address City/[facility]/ZIP Co de Phone Number [facility] [address] [place] [address] * (ABNORMAL) GLUCOSE METER POC (03/05/2025 8:45 AM EDT) [facility] Glucose Meter POC 108(H) 70 - 100 mg/dL 03/05/2025 8:47 AM EDT [facility] Sample Type Capillary 03/05/2025 8:47 AM EDT [facility] Patient Status Non-Critical Patient 03/05/2025 8:47 AM EDT [facility] Blood BLOOD SPECIMEN / Unknown 03/05/2025 8:45 AM EDT 03/05/2025 8:47 AM EDT Stephen Covarrubias MD POINT OF CARE TEST ORDERABLE S Final Result Performing Organization Address [facility]/ZIP Co de Phone Number [facility] [address] [place] [address] * ECG AND WAVEFORMS - TELEMETRY (03/05/2025 7:03 AM EDT) [facility] ECG INTERPRET First degree Sinus with IVCD [facility] 03/05/2025 7:03 AM EDT Narrative [facility] - 03/05/2025 8:18 AM EDT AM ROUTINE/SR/PVC/IVCD [place] 0.26 QRS 0.19 RR 0.92 QT 0.49 QTc 0.51 See Clinical Report link for waveform capture Unknown Provider POINT OF CARE CARDIOLOGY Final Result Performing Organization Address City/[facility]/ZIP Co de Phone Number [facility] [address] [place] [id number] * (ABNORMAL) GLUCOSE METER POC (03/04/2025 8:35 PM EDT) Glucose Meter POC 164(H) 70 - 100 mg/dL 03/04/2025 8:37 PM EDT [facility] Sample Type Capillary 03/04/2025 8:37 PM EDT [facility] Patient Status Non-Critical Patient 03/04/2025 8:37 PM EDT [facility] Blood BLOOD SPECIMEN / Unknown 03/04/2025 8:35 PM EDT 03/04/2025 8:37 PM EDT Stephen Covarrubias MD POINT OF CARE TEST ORDERABLE S Final Result [facility] [address] [place] [address] * ECG AND WAVEFORMS - TELEMETRY (03/04/2025 7:41 PM EDT) [facility] ECG INTERPRET First Degree Sinus Rhythm [facility] 03/04/2025 7:41 PM EDT Narrative [facility] - 03/04/2025 7:52 PM EDT WANDERING 1ST D AVB, IVCD, PVCs [place] 0.24 QRS 0.14 QT 0.39 See Clinical Report link for waveform capture us Unknown Provider POINT OF CARE CARDIOLOGY Final Result [facility] [address] [place] [address] * (ABNORMAL) GLUCOSE METER POC (03/04/2025 5:11 PM EDT) Glucose Meter POC 136(H) 70 - 100 mg/dL 03/04/2025 5:12 PM EDT [facility] Sample Type Capillary 03/04/2025 5:12 PM EDT [facility] Patient Status Non-Critical Patient 03/04/2025 5:12 PM EDT [facility] Blood BLOOD SPECIMEN / Unknown 03/04/2025 5:11 PM EDT 03/04/2025 5:12 PM EDT us Stephen Covarrubias MD POINT OF CARE TEST ORDERABLE S Final Result Performing Organization Address [facility] Co de Phone Number [facility] [address] [place] [address] * (ABNORMAL) GLUCOSE METER POC (03/04/2025 11:57 AM EDT) Glucose Meter POC 167(H) 70 - 100 mg/dL 03/04/2025 11:59 AM EDT [facility] Sample Type Capillary 03/04/2025 11:59 AM EDT [facility] Patient Status Non-Critical Patient 03/04/2025 11:59 AM EDT [facility] Blood BLOOD SPECIMEN / Unknown 03/04/2025 11:57 AM EDT 03/04/2025 11:59 AM EDT us Stephen Covarrubias MD POINT OF CARE TEST ORDERABLE S Final Result Performing Organization Address [facility] de Phone Number [facility] [address] [place] [address] * (ABNORMAL) GLUCOSE METER POC (03/04/2025 8:19 AM EDT) [facility] Glucose Meter POC 116(H) 70 - 100 mg/dL 03/04/2025 8:21 AM EDT [facility] Sample Type Capillary 03/04/2025 8:21 AM EDT [facility] Patient Status Non-Critical Patient 03/04/2025 8:21 AM EDT [facility] Blood BLOOD SPECIMEN / Unknown 03/04/2025 8:19 AM EDT 03/04/2025 8:21 AM EDT us Stephen Covarrubias MD POINT OF CARE TEST ORDERABLE S Final Result Performing Organization Address [facility] Co de Phone Number [facility] [address] [place] [address] * (ABNORMAL) CBC (03/04/2025 6:09 AM EDT) WBC 6.3 3.7 - 10.3 x10(3)/mcL 03/04/2025 6:22 AM EDT [facility] RBC 2.92(L) 4.60 - 6.10 x10(6)/mcL 03/04/2025 6:22 AM EDT [facility] Hgb 9.1(L) 13.7 - 17.5 g/dL 03/04/2025 6:22 AM EDT [facility] Hct 28.5(L) 40.0 - 51.0 % 03/04/2025 6:22 AM EDT [facility] MCV 97.6 80.0 - 100.0 fL 03/04/2025 6:22 AM EDT [facility] MCH 31.2 26.0 - 34.0 pg 03/04/2025 6:22 AM EDT [facility] MCHC 31.9 30.7 - 35.5 g/dL 03/04/2025 6:22 AM EDT [facility] RDW 14.4 <=14.9 % 03/04/2025 6:22 AM EDT [facility] Platelet 322 155 - 369 x10(3)/mcL 03/04/2025 6:22 AM EDT [facility] MPV 9.0 8.8 - 12.5 fL 03/04/2025 6:22 AM EDT [facility] Blood VENOUS BLOOD / Unknown Venipuncture / Unknown 03/04/2025 6:09 AM EDT 03/04/2025 6:20 AM EDT us Ozzie Fernandez MD HEMATOLOGY ORDERABLES Final Resu lt [facility] [address] [place] [address] * (ABNORMAL) GLUCOSE METER POC (03/03/2025 8:08 PM EDT) [facility] Glucose Meter POC 198(H) 70 - 100 mg/dL 03/03/2025 8:09 PM EDT [facility] Sample Type Capillary 03/03/2025 8:09 PM EDT [facility] Patient Status Non-Critical Patient 03/03/2025 8:09 PM EDT [facility] Blood BLOOD SPECIMEN / Unknown 03/03/2025 8:08 PM EDT 03/03/2025 8:09 PM EDT Ozzie Fernandez MD POINT OF CARE TEST ORDERABLES Fi nal Result Performing Organization Address City/[facility] Co de Phone Number [facility] [address] [place] [phone] * ECG AND WAVEFORMS - TELEMETRY (03/03/2025 7:00 PM EDT) ECG INTERPRET First degree Sinus with IVCD [facility] 03/03/2025 7:00 PM EDT Narrative [facility] - 03/03/2025 7:34 PM EDT ROUTINE W/ PVC, PAC, IVCD (LZ) [place] 0.24 QRS 0.16 RR 0.77 QT 0.41 QTc 0.46 See Clinical Report link for waveform capture us Unknown Provider POINT OF CARE CARDIOLOGY Final Result Performing Organization Address [facility] Co de Phone Number [address] [address] * (ABNORMAL) GLUCOSE METER POC (03/03/2025 4:16 PM EDT) Glucose Meter POC 125(H) 70 - 100 mg/dL 03/03/2025 4:18 PM EDT [facility] Sample Type Capillary 03/03/2025 4:18 PM EDT [facility] Patient Status Non-Critical Patient 03/03/2025 4:18 PM EDT [facility] Blood BLOOD SPECIMEN / Unknown 03/03/2025 4:16 PM EDT 03/03/2025 4:18 PM EDT Ozzie Fernandez MD POINT OF CARE TEST ORDERABLES Fi nal Result Performing Organization Address City/[facility]/ZIP Co de Phone Number [facility] [address] [facility] [place] [address] * (ABNORMAL) GLUCOSE METER POC (03/03/2025 12:22 PM EDT) Glucose Meter POC 132(H) 70 - 100 mg/dL 03/03/2025 12:29 PM EDT [facility] Sample Type Capillary 03/03/2025 12:29 PM EDT [facility] Patient Status Non-Critical Patient 03/03/2025 12:29 PM EDT [facility] Blood BLOOD SPECIMEN / Unknown 03/03/2025 12:22 PM EDT 03/03/2025 12:29 PM EDT us Ozzie Fernandez MD POINT OF CARE TEST ORDERABLES Fi nal Result Performing Organization Address City/[facility] Co de Phone Number [facility] [address] [place] [address] * GLUCOSE METER POC (03/03/2025 8:39 AM EDT) Glucose Meter POC 94 70 - 100 mg/dL 03/03/2025 8:41 AM EDT [facility] Sample Type Capillary 03/03/2025 8:41 AM EDT [facility] Patient Status Non-Critical Patient 03/03/2025 8:41 AM EDT [facility] Blood BLOOD SPECIMEN / Unknown 03/03/2025 8:39 AM EDT 03/03/2025 8:41 AM EDT us Ozzie Fernandez MD POINT OF CARE TEST ORDERABLES Fi nal Result [facility] [address] [place] [address] * ECG AND WAVEFORMS - TELEMETRY (03/03/2025 7:21 AM EDT) ECG INTERPRET Sinus Rhythm w/ First Degree AVB [facility] 03/03/2025 7:21 AM EDT Narrative [facility] - 03/03/2025 7:30 AM EDT 1STD EGREE/IVCD/ROUTINE/AK [place] 0.26 QRS 0.14 RR 0.79 QT 0.43 QTc 0.48 See Clinical Report link for waveform capture us Unknown Provider POINT OF CARE CARDIOLOGY Final Result Performing Organization Address [facility] Co de Phone Number [facility] [address] [place] [address] * (ABNORMAL) GLUCOSE METER POC (03/02/2025 8:17 PM EDT) Glucose Meter POC 171(H) 70 - 100 mg/dL 03/02/2025 8:19 PM EDT [facility] Sample Type Capillary 03/02/2025 8:19 PM EDT [facility] Patient Status Non-Critical Patient 03/02/2025 8:19 PM EDT [facility] Blood BLOOD SPECIMEN / Unknown 03/02/2025 8:17 PM EDT 03/02/2025 8:19 PM EDT us Ozzie Fernandez MD POINT OF CARE TEST ORDERABLES Fi nal Result Performing Organization Address [facility] Co de Phone Number [facility] [address] [place] [phone] * ECG AND WAVEFORMS - TELEMETRY (03/02/2025 7:14 PM EDT) ECG INTERPRET Sinus Rhythm w/ First Degree AVB [facility] 03/02/2025 7:14 PM EDT Narrative [facility] - 03/02/2025 7:54 PM EDT SA/ROUTINE/AM [place] 0.25 QRS 0.11 QT 0.42 See Clinical Report link for waveform capture us Unknown Provider POINT OF CARE CARDIOLOGY Final Result Performing Organization Address City/[facility]/ZIP Co de Phone Number [facility] [address] [place] [address] * (ABNORMAL) GLUCOSE METER POC (03/02/2025 4:40 PM EDT) Glucose Meter POC 135(H) 70 - 100 mg/dL 03/02/2025 4:41 PM EDT [facility] Sample Type Capillary 03/02/2025 4:41 PM EDT [facility] Patient Status Non-Critical Patient 03/02/2025 4:41 PM EDT [facility] Blood BLOOD SPECIMEN / Unknown 03/02/2025 4:40 PM EDT 03/02/2025 4:41 PM EDT us Ozzie Fernandez MD POINT OF CARE TEST ORDERABLES Fi nal Result [facility] [address] [place] [address] * [facility] LOWER EXTREMITY VENOUS BILATERAL (03/02/2025 2:12 PM [...] superficial thrombosis identified in the bilaterallower extremities. us Ozzie Fernandez MD IMG VASCULAR ORDERABLES Final Re sult * GLUCOSE METER POC (03/02/2025 12:10 PM EDT) Glucose Meter POC 76 70 - 100 mg/dL 03/02/2025 12:11 PM EDT [facility] Sample Type Capillary 03/02/2025 12:11 PM EDT [facility] Patient Status Non-Critical Patient 03/02/2025 12:11 PM EDT [facility] Blood BLOOD SPECIMEN / Unknown 03/02/2025 12:10 PM EDT 03/02/2025 12:11 PM EDT Ozzie Fernandez MD POINT OF CARE TEST ORDERABLES Fi nal Result Performing Organization Address City/[facility] Co de Phone Number [facility] [address] [place] [address] * GLUCOSE METER POC (03/02/2025 7:51 AM EDT) Pathologist [facility] Glucose Meter POC 71 70 - 100 mg/dL 03/02/2025 7:52 AM EDT [facility] Sample Type Capillary 03/02/2025 7:52 AM EDT [facility] Patient Status Non-Critical Patient 03/02/2025 7:52 AM EDT [facility] Blood BLOOD SPECIMEN / Unknown 03/02/2025 7:51 AM EDT 03/02/2025 7:52 AM EDT Ozzie Fernandez MD POINT OF CARE TEST ORDERABLES Fi nal Result Performing Organization Address [facility] Co de Phone Number [facility] [address] [place] [address] * ECG AND WAVEFORMS - TELEMETRY (03/02/2025 7:32 AM EDT) [facility] ECG INTERPRET Sinus Arrythmia [facility] 03/02/2025 7:32 AM EDT Narrative [facility] - 03/02/2025 7:39 AM EDT EH - ROUTINE; IVCD, 1st DEG [place] 0.27 QRS 0.14 RR 0.76 QT 0.42 QTc 0.48 See Clinical Report link for waveform capture Unknown Provider POINT OF CARE CARDIOLOGY Final Result Performing Organization Address City/[facility] Co de Phone Number [facility] [address] [place] [address] * (ABNORMAL) CBC WITH DIFF (03/02/2025 6:18 AM EDT) WBC 9.5 3.7 - 10.3 x10(3)/mcL 03/02/2025 7:02 AM EDT [facility] RBC 2.98(L) 4.60 - 6.10 x10(6)/mcL 03/02/2025 7:02 AM EDT [facility] Hgb 9.3(L) 13.7 - 17.5 g/dL 03/02/2025 7:02 AM EDT [facility] Hct 29.0(L) 40.0 - 51.0 % 03/02/2025 7:02 AM EDT [facility] MCV 97.3 80.0 - 100.0 fL 03/02/2025 7:02 AM EDT [facility] MCH 31.2 26.0 - 34.0 pg 03/02/2025 7:02 AM EDT [facility] MCHC 32.1 30.7 - 35.5 g/dL 03/02/2025 7:02 AM EDT [facility] RDW 14.6 <=14.9 % 03/02/2025 7:02 AM EDT [facility] Platelet 280 155 - 369 x10(3)/mcL 03/02/2025 7:02 AM EDT [facility] MPV 8.5(L) 8.8 - 12.5 fL 03/02/2025 7:02 AM EDT [facility] Neut Percent 81.4 % 03/02/2025 7:02 AM EDT [facility] Comment:Neutrophils equals s egs plus bands Imm Gran% 0.4 % 03/02/2025 7:02 AM EDT [facility] Comment:Automated count of m etamyelocytes, myelocytes and promyelocytes. Lymph Percent 9.8 % 03/02/2025 7:02 AM EDT [facility] Dukes Percent 6.1 % 03/02/2025 7:02 AM EDT [facility] Eos Percent 2.1 % 03/02/2025 7:02 AM EDT [facility] Baso Percent 0.2 % 03/02/2025 7:02 AM EDT [facility] Neut # 7.8(H) 1.6 - 6.1 x10(3)/mcL 03/02/2025 7:02 AM EDT [facility] Comment:Neutrophils equals s egs plus bands IMMGRAN# 0.0 0.0 - 0.1 x10(3)/[facility] 03/02/2025 7:02 AM EDT [facility] Comment:Automated count of m etamyelocytes, myelocytes and promyelocytes. An absolute IG <0.1 is reported as 0.0. Lymph # 0.9(L) 1.2 - 3.9 x10(3)/[facility] 03/02/2025 7:02 AM EDT [facility] Dukes # 0.6 0.3 - 0.9 x10(3)/[facility] 03/02/2025 7:02 AM EDT [facility] Eos# 0.2 0.0 - 0.5 x10(3)/[facility] 03/02/2025 7:02 AM EDT [facility] Baso # 0.0 0.0 - 0.1 x10(3)/[facility] 03/02/2025 7:02 AM EDT [facility] Blood VENOUS BLOOD / Unknown Venipuncture / Unknown 03/02/2025 6:18 AM EDT 03/02/2025 6:25 AM EDT us Ozzie Fernandez MD HEMATOLOGY ORDERABLES Final Resu lt [facility] [id number] [place] [address] * (ABNORMAL) BASIC METABOLIC PANEL (03/02/2025 6:18 AM EDT) Sodium 134(L) 136 - 145 mmol/L 03/02/2025 6:52 AM EDT [facility] Potassium 4.2 3.5 - 5.0 mmol/L 03/02/2025 6:52 AM EDT [facility] Chloride 101 98 - 107 mmol/L 03/02/2025 6:52 AM EDT [facility] Total CO2 23 22 - 29 mmol/L 03/02/2025 6:52 AM EDT [facility] Anion Gap 10 7 - 16 mmol/L 03/02/2025 6:52 AM EDT [facility] Calcium 8.0(L) 8.8 - 10.4 mg/dL 03/02/2025 6:52 AM EDT [facility] [facility] Glucose Lvl 78 70 - 99 mg/dL 03/02/2025 6:52 AM EDT [facility] BUN 15 8 - 23 mg/dL 03/02/2025 6:52 AM EDT [facility] Creatinine 0.86 0.67 - 1.30 mg/dL 03/02/2025 6:52 AM EDT [facility] eGFR (CKD-EPIcr 2020) 84 >=60 mL/min/1.7 3 m2 03/02/2025 6:52 AM EDT [facility] Comment:Estimated GFR was ca lculated using the CKD-EPIcr (2020) equation refit without race. The equation is recommended by the [employer] Kid[employer] - [place] [employer] of Nephrology Task Force. Blood VENOUS BLOOD / Unknown Venipuncture / Unknown 03/02/2025 6:18 AM EDT 03/02/2025 6:25 AM EDT Ozzie Fernandez MD CHEMISTRY ORDERABLES Final Resul t Performing Organization Address City/[facility] Co de Phone Number [facility] [address] [place] [address] * EXTRA MINT GREEN LI (03/02/2025 6:00 AM EDT) Blood VENOUS BLOOD / Unknown Venipuncture / Unknown 03/02/2025 6:00 AM EDT 03/02/2025 6:40 AM EDT Ozzie Fernandez MD CHEMISTRY ORDERABLES Final Resul t Performing Organization Address City/[facility]/ZIP Co de Phone Number [facility] [address] [place] [address] * EXTRA LAVENDER (03/02/2025 6:00 AM EDT) Blood VENOUS BLOOD / Unknown Venipuncture / Unknown 03/02/2025 6:00 AM EDT 03/02/2025 6:40 AM EDT Ozzie Fernandez MD HEMATOLOGY ORDERABLES Final Resu lt Performing Organization Address [facility] de Phone Number [facility] [address] [place] [address] * (ABNORMAL) PARTIAL THROMBOPLASTIN TIME (03/02/2025 6:00 AM EDT) PTT 48.1(H) 25.7 - 36.8 second(s) 03/02/2025 6:45 AM EDT [facility] Comment: Therapeutic range for unfractionated [...] ORDERABLES Final Resu lt Performing Organization Address [facility] de Phone Number [facility] [address] [place] [address] * HEPARIN ANTI-XA, UNF (03/02/2025 6:00 AM EDT) Heparin Level UNF 0.57 0.30 - 0.70 IU/mL 03/02/2025 6:45 AM EDT [facility] Comment:The therapeutic rang e for heparinized patients monitored by the Heparin Lvl UF is 0.30-0.70 IU/mL. Blood VENOUS BLOOD / Unknown Venipuncture / Unknown 03/02/2025 6:00 AM EDT 03/02/2025 6:31 AM EDT Ozzie Fernandez MD HEMATOLOGY ORDERABLES Final Resu lt Performing Organization Address [facility] de Phone Number [facility] [address] [place] [address] * GLUCOSE METER POC (03/01/2025 9:27 PM EDT) Glucose Meter POC 89 70 - 100 mg/dL 03/01/2025 9:28 PM EDT [facility] Sample Type Capillary 03/01/2025 9:28 PM EDT [facility] Patient Status Non-Critical Patient 03/01/2025 9:28 PM EDT [facility] Blood BLOOD SPECIMEN / Unknown 03/01/2025 9:27 PM EDT 03/01/2025 9:28 PM EDT Ozzie Fernandez MD POINT OF CARE TEST ORDERABLES Fi nal Result Performing Organization Address [facility] Phone Number [facility] [address] [place] [address] * (ABNORMAL) PARTIAL THROMBOPLASTIN TIME (03/01/2025 7:45 PM EDT) PTT 38.8(H) 25.7 - 36.8 second(s) 03/01/2025 8:29 PM EDT [facility] Comment: Therapeutic range for unfractionated [...] 7:45 PM EDT 03/01/2025 7:51 PM EDT us Ozzie Fernandez MD HEMATOLOGY ORDERABLES Final Resu lt Performing Organization Address [facility] de Phone Number [facility] [address] [place] [address] * HEPARIN ANTI-XA, UNF (03/01/2025 7:45 PM EDT) [facility] Heparin Level UNF 0.47 0.30 - 0.70 IU/mL 03/01/2025 8:29 PM EDT [facility] Comment:The therapeutic rang e for heparinized patients monitored by the Heparin Lvl UF is 0.30-0.70 IU/mL. Blood VENOUS BLOOD / Unknown Venipuncture / Unknown 03/01/2025 7:45 PM EDT 03/01/2025 7:51 PM EDT us Ozzie Fernandez MD HEMATOLOGY ORDERABLES Final Resu lt [facility] [address] [place], [place] [id number] * ECG AND WAVEFORMS - TELEMETRY (03/01/2025 7:00 PM EDT) [facility] ECG INTERPRET NSR [facility] 03/01/2025 7:00 PM EDT Narrative [facility] - 03/01/2025 8:58 PM EDT Routine 1900/1st AVB/IVCD/PAC/PVC//qj [place] 0.27 QRS 0.17 RR 0.79 QT 0.46 QTc 0.51 See Clinical Report link for waveform capture us Unknown Provider POINT OF CARE CARDIOLOGY Final Result [facility] [address] [place] [id number] * GLUCOSE METER POC (03/01/2025 5:10 PM EDT) [facility] Glucose Meter POC 100 70 - 100 mg/dL 03/01/2025 5:12 PM EDT [facility] Sample Type Capillary 03/01/2025 5:12 PM EDT [facility] Patient Status Non-Critical Patient 03/01/2025 5:12 PM EDT [facility] Blood BLOOD SPECIMEN / Unknown 03/01/2025 5:10 PM EDT 03/01/2025 5:12 PM EDT us Ozzie Fernandez MD POINT OF CARE TEST ORDERABLES Fi nal Result [facility] [address] [facility] [place] [address] * CT ABDOMEN PELVIS W CONTRAST (03/01/2025 [...] please contactthe office of the ordering clinician. Ozzie Fernandez MD [facility] [place] ORDERABLES Final Result * CT ANGIOGRAM PULMONARY W CONTRAST (03/01/2025 4:36 PM EDT) Anatomical Region Laterality Modality Chest Computed Tomogra phy 03/01/2025 4:36 PM EDT Impressions 03/01/2025 6:07 PM EDT Positive for pulmonary emboli in the left lower lobe. Bilateral pleural effusions. Atelectasis versus infection as above. Mild adenopathy which may be reactive. Direct communication to care team using [employer] Secure Chat. Notification included: OZZIE FERNANDEZ Approximate [...] Isovue 370 IV contrast as recorded in Instant AV. 2-D multiplanar reconstructions and 3-D MIP reconstructions [...] using Isovue 370 IVcontrast as recorded in Instant AV. 2-D multiplanar reconstructions and 3-D MIP reconstructions [...] reactive. Direct communication to care team using [employer] Secure Chat. Notification included: OZZIE FERNANDEZ Approximate [...] GLUCOSE METER POC (03/01/2025 1:49 PM EDT) [facility] Glucose Meter POC 72 70 - 100 mg/dL 03/01/2025 1:51 PM EDT [facility] Sample Type Capillary 03/01/2025 1:51 PM EDT [facility] Patient Status Non-Critical Patient 03/01/2025 1:51 PM EDT [facility] Blood BLOOD SPECIMEN / Unknown 03/01/2025 1:49 PM EDT 03/01/2025 1:51 PM EDT Sameer Ortega MD POINT OF CARE TEST ORDERABLES Fi nal Result [facility] [address] [place] [address] * (ABNORMAL) TROPONIN-T HIGH SENSITIVITY 2HR (03/01/2025 11:24 AM EDT) [facility] qm-uBizwwflj-K 2HR 37(H) <22 ng/L 03/01/2025 11:44 AM EDT [facility] hs-cTnT 2Hr Delta from Baseline 1 <4 ng/L 03/01/2025 11:44 AM EDT [facility] Blood VENOUS BLOOD / Unknown Venipuncture / Unknown 03/01/2025 11:24 AM EDT 03/01/2025 11:26 AM EDT Narrative [facility] - 03/01/2025 11:44 AM EDT Ingestion of johny doses of biotin (>5 mg/day) taken within 8 hours of drawing blood sample can interfere with this immunoassay test. Stacia Shrestha MD CHEMISTRY ORDERABLES Final Resul t Performing Organization Address City/[facility]/ZIP Co de Phone Number [facility] [address] [place] [address] * ECG AND WAVEFORMS - TELEMETRY (03/01/2025 10:33 AM EDT) Pathologist [facility] ECG INTERPRET NSR with PVCs [facility] 03/01/2025 10:3 3 AM EDT Narrative [facility] - 03/01/2025 11:25 AM EDT MG/ROUTINE/1 DG HB, IVCD, PACS, PVCS [place] 0.27 QRS 0.14 RR 0.76 QT 0.44 QTc 0.50 See Clinical Report link for waveform capture us Unknown Provider POINT OF CARE CARDIOLOGY Final Result [facility] [address] [place] [address] * (ABNORMAL) STAPHYLOCOCCUS AUREUS SCREEN (03/01/2025 10:29 AM EDT) Staph aureus PCR Detected(A) Not Detected 03/01/2025 1:56 PM EDT [facility] MRSA PCR Not Detected Not Detected 03/01/2025 1:56 PM EDT [facility] Swab BOTH ANTERIOR NARES / Unknown 03/01/2025 10:29 AM EDT 03/01/2025 10:33 AM EDT Narrative [facility] - 03/01/2025 1:56 PM EDT MRSA target [...] assay utilizes real time PCR on the [employer] GeneXpert Infinity, and its performance has been verified by the [facility]. A negative result does not [...] has been developed and validated by the [facility] laboratory. Detailed methodology is available upon request. us Stacia Shrestha MD MICROBIOLOGY - GENERAL ORDERABLE S Final Result Performing Organization Address City/[facility]/ZIP Co de Phone Number [facility], [address] , [place] [address] * BLOOD CULTURE (NO STAIN) (03/01/2025 10:09 AM EDT) Culture Result No Growth at 120 hours. BLOOD CULTURE (NO STAIN) 03/06/2025 12:01 PM EDT [facility], [facility] Blood VENOUS BLOOD / Unknown Venipuncture / Unknown 03/01/2025 10:09 AM EDT 03/01/2025 10:13 AM EDT us Stacia Shrestha MD MICROBIOLOGY - GENERAL ORDERABLE S Final Result Performing Organization Address City/[facility]/ZIP Co de Phone Number [facility], [address] , [place] [address] * BLOOD CULTURE (NO STAIN) (03/01/2025 9:59 AM EDT) Culture Result No Growth at 120 hours. BLOOD CULTURE (NO STAIN) 03/06/2025 12:01 PM EDT [facility], [facility] Blood VENOUS BLOOD / Unknown Venipuncture / Unknown 03/01/2025 9:59 AM EDT 03/01/2025 10:13 AM EDT Stacia Shrestha MD MICROBIOLOGY - GENERAL ORDERABLE S Final Result [facility], [facility] [address] [facility] , [address] [place], [place] [id number] * (ABNORMAL) BLOOD GAS, VENOUS (03/01/2025 9:38 AM EDT) pH Venous 7.39 7.32 - 7.42 pH 03/01/2025 10:05 AM EDT [facility] pCO2 Venous 47 41 - 51 mmHg 03/01/2025 10:05 AM EDT [facility] pO2 Venous 43(H) 25 - 40 mmHg 03/01/2025 10:05 AM EDT [facility] Comment:Interpret with cauti on. Not recommended to evaluate patient's oxygenation status. Base Excess Olaf 3.1 mmol/L 10:05 AM EDT [facility] Hco3 Venous 28.5(H) 24.0 - 28.0 mmol/L 03/01/2025 10:05 AM EDT [facility] CO2 Total Olaf 27 25 - 29 mmol/L 03/01/2025 10:05 AM EDT [facility] O2 Sat. Venous 76.2(H) 40.0 - 70.0 % 03/01/2025 10:05 AM EDT [facility] Inspired O2 2L 03/01/2025 10:05 AM EDT [facility] Blood VENOUS BLOOD / Unknown Venipuncture / Unknown 03/01/2025 9:38 AM EDT 03/01/2025 9:59 AM EDT Stacia Shrestha MD CHEMISTRY ORDERABLES Final Resul t [facility] [address] [place] [address] * (ABNORMAL) HEPATIC FUNCTION PANEL (03/01/2025 9:31 AM EDT) Pathologist [facility] Total Protein 5.8(L) 6.4 - 8.3 gm/dL 03/01/2025 11:12 AM EDT [facility] Albumin 2.8(L) 3.2 - 4.6 gm/dL 03/01/2025 11:12 AM EDT [facility] Bili Direct <0.2 0.0 - 0.3 mg/dL 03/01/2025 11:12 AM EDT [facility] Bili Total 0.3 0.2 - 1.4 mg/dL 03/01/2025 11:12 AM EDT [facility] AST 15 <=40 U/L 03/01/2025 11:12 AM EDT [facility] ALT <5 <=41 U/L 03/01/2025 11:12 AM EDT [facility] Alk Phos 99 40 - 129 U/L 03/01/2025 11:12 AM EDT [facility] Blood VENOUS BLOOD / Unknown Venipuncture / Unknown 03/01/2025 9:31 AM EDT 03/01/2025 9:44 AM EDT us Ozzie Fernandez MD CHEMISTRY ORDERABLES Final Resul t [facility] [address] [place] [id number] * (ABNORMAL) D-DIMER (03/01/2025 9:31 AM EDT) [facility] D-Dimer 1,096(H) <=500 ng/mL FEU 03/01/2025 10:53 AM EDT [facility] Comment:This is an automated latex [...] ORDERABLES Final Resu lt Performing Organization Address [facility] de Phone Number [facility] [address] [place] [address] * EXTRA LAVENDER (03/01/2025 9:31 AM EDT) Blood VENOUS BLOOD / Unknown Venipuncture / Unknown 03/01/2025 9:31 AM EDT 03/01/2025 9:46 AM EDT us Sameer Ortgea MD HEMATOLOGY ORDERABLES Final Resu lt Performing Organization Address [facility] de Phone Number [facility] [address] [place] [address] * PROCALCITONIN (03/01/2025 9:31 AM EDT) Procalcitonin 0.05 <=0.49 ng/mL 03/01/2025 10:22 AM EDT [facility] Blood VENOUS BLOOD / Unknown Venipuncture / Unknown 03/01/2025 9:31 AM EDT 03/01/2025 10:01 AM EDT Narrative [facility] - 03/01/2025 10:22 AM EDT [...] ORDERABLES Final Resul t Performing Organization Address [facility] Co de Phone Number [facility] [address] [place] [address] * (ABNORMAL) C-REACTIVE PROTEIN (03/01/2025 9:31 AM EDT) CRP 44.49(H) <=5.00 mg/L 03/01/2025 2:05 PM EDT [facility] Blood VENOUS BLOOD / Unknown Venipuncture / Unknown 03/01/2025 9:31 AM EDT 03/01/2025 10:37 AM EDT us Stacia Shrestha MD CHEMISTRY ORDERABLES Final Resul t Performing Organization Address [facility] de Phone Number [facility] [address] [place] [address] , [place] [address] * LACTIC ACID (03/01/2025 9:31 AM EDT) Lactic Acid 1.4 0.5 - 1.9 mmol/L 03/01/2025 10:05 AM EDT [facility] Blood VENOUS BLOOD / Unknown Venipuncture / Unknown 03/01/2025 9:31 AM EDT 03/01/2025 9:45 AM EDT us Stacia Shrestha MD CHEMISTRY ORDERABLES Final Resul t Performing Organization Address [facility] Co de Phone Number [facility] [address] [place] [address] * (ABNORMAL) PARTIAL THROMBOPLASTIN TIME (03/01/2025 9:31 AM EDT) PTT 41.4(H) 25.7 - 36.8 second(s) 03/01/2025 9:59 AM EDT [facility] Comment: Therapeutic range for unfractionated [...] ORDERABLES Final Resu lt Performing Organization Address [facility] de Phone Number [facility] [address] [place] [address] * (ABNORMAL) PT / INR (03/01/2025 9:31 AM EDT) PT 15.4(H) 10.5 - 13.6 second(s) 03/01/2025 9:59 AM EDT [facility] INR 1.33(H) 0.91 - 1.18 (ratio) 03/01/2025 9:59 AM EDT [facility] Comment: Level of Therapy Indications Target INR Range Standard Dose Treatment and prophylaxis of venous 2.0 - 3.0 thrombosis, pulmonary embolism High Dose High risk patients with mechanical 2.5 - 3.5 heart valves Blood VENOUS BLOOD / Unknown Venipuncture / Unknown 03/01/2025 9:31 AM EDT 03/01/2025 9:44 AM EDT Stacia Shrestha MD HEMATOLOGY ORDERABLES Final Resu lt Performing Organization Address [facility] de Phone Number [facility] [address] [place] [address] * (ABNORMAL) TROPONIN-T HIGH SENSITIVITY BASELINE W/ REFLEX (03/01/2025 9:31 AM EDT) [id number]-[id number] 36(H) <22 ng/L 03/01/2025 10:18 AM EDT [facility] Blood VENOUS BLOOD / Unknown Venipuncture / Unknown 03/01/2025 9:31 AM EDT 03/01/2025 9:44 AM EDT Narrative [facility] - 03/01/2025 10:18 AM EDT Ingestion of johny doses of biotin (>5 mg/day) taken within 8 hours of drawing blood sample can interfere with this immunoassay test. us Stacia Shrestha MD CHEMISTRY ORDERABLES Final Resul t Performing Organization Address [facility] de Phone Number [facility] [address] [place] [address] * PHOSPHORUS LEVEL (03/01/2025 9:31 AM EDT) Phosphorus 2.5 2.5 - 4.5 mg/dL 03/01/2025 10:18 AM EDT [facility] Blood VENOUS BLOOD / Unknown Venipuncture / Unknown 03/01/2025 9:31 AM EDT 03/01/2025 9:44 AM EDT us Stacia Shrestha MD CHEMISTRY ORDERABLES Final Resul t Performing Organization Address City/[facility] de Phone Number [facility] [address] [place] [address] * MAGNESIUM LEVEL (03/01/2025 9:31 AM EDT) Magnesium 2.0 1.6 - 2.4 mg/dL 03/01/2025 10:18 AM EDT [facility] Blood VENOUS BLOOD / Unknown Venipuncture / Unknown 03/01/2025 9:31 AM EDT 03/01/2025 9:44 AM EDT us Stacia Shrestha MD CHEMISTRY ORDERABLES Final Resul t Performing Organization Address [facility] de Phone Number [facility] [address] [place] [address] * (ABNORMAL) NT PROBNP (03/01/2025 9:31 AM EDT) Pathologist [facility] NT Pro-BNP 4,590(H) <=852 pg/mL 03/01/2025 10:18 AM EDT [facility] Blood VENOUS BLOOD / Unknown Venipuncture / Unknown 03/01/2025 9:31 AM EDT 03/01/2025 9:44 AM EDT Narrative [facility] - 03/01/2025 10:18 AM EDT [...] ORDERABLES Final Resul t Performing Organization Address [facility] de Phone Number [facility] [address] [place] [address] * (ABNORMAL) BASIC METABOLIC PANEL (03/01/2025 9:31 AM EDT) Pathologist [facility] Sodium 136 136 - 145 mmol/L 03/01/2025 10:18 AM EDT [facility] Potassium 4.2 3.5 - 5.0 mmol/L 03/01/2025 10:18 AM EDT [facility] Chloride 102 98 - 107 mmol/L 03/01/2025 10:18 AM EDT [facility] Total CO2 23 22 - 29 mmol/L 03/01/2025 10:18 AM EDT [facility] Anion Gap 11 7 - 16 mmol/L 03/01/2025 10:18 AM EDT [facility] Calcium 8.1(L) 8.8 - 10.4 mg/dL 03/01/2025 10:18 AM EDT [facility] Glucose Lvl 81 70 - 99 mg/dL 03/01/2025 10:18 AM EDT [facility] BUN 15 8 - 23 mg/dL 03/01/2025 10:18 AM EDT [facility] Creatinine 0.84 0.67 - 1.30 mg/dL 03/01/2025 10:18 AM EDT [facility] eGFR (CKD-EPIcr 2020) 84 >=60 mL/min/1.7 3 m2 03/01/2025 10:18 AM EDT [facility] Comment:Estimated GFR was ca lculated using the CKD-EPIcr (2020) equation refit without race. The equation is recommended by the [employer] Kid[employer] - [employer] [place] [employer] of Nephrology Task Force. Blood VENOUS BLOOD / Unknown Venipuncture / Unknown 03/01/2025 9:31 AM EDT 03/01/2025 9:44 AM EDT us Stacia Shrestha MD CHEMISTRY ORDERABLES Final Resul t Performing Organization Address City/State/[facility] Co de Phone Number [facility] [address] [place] [phone] * (ABNORMAL) CBC (03/01/2025 9:31 AM EDT) WBC 7.7 3.7 - 10.3 x10(3)/mcL 03/01/2025 9:50 AM EDT [facility] RBC 3.70(L) 4.60 - 6.10 x10(6)/mcL 03/01/2025 9:50 AM EDT [facility] Hgb 11.6(L) 13.7 - 17.5 g/dL 03/01/2025 9:50 AM EDT [facility] Hct 35.5(L) 40.0 - 51.0 % 03/01/2025 9:50 AM EDT [facility] MCV 95.9 80.0 - 100.0 fL 03/01/2025 9:50 AM EDT [facility] MCH 31.4 26.0 - 34.0 pg 03/01/2025 9:50 AM EDT [facility] MCHC 32.7 30.7 - 35.5 g/dL 03/01/2025 9:50 AM EDT [facility] RDW 14.6 <=14.9 % 03/01/2025 9:50 AM EDT [facility] Platelet 252 155 - 369 x10(3)/mcL 03/01/2025 9:50 AM EDT [facility] MPV 9.0 8.8 - 12.5 fL 03/01/2025 9:50 AM EDT [facility] Blood VENOUS BLOOD / Unknown Venipuncture / Unknown 03/01/2025 9:31 AM EDT 03/01/2025 9:44 AM EDT us Stacia Shrestha MD HEMATOLOGY ORDERABLES Final Resu lt Performing Organization Address [facility] Co de Phone Number [facility] [address] [place] [address] * GLUCOSE METER POC (03/01/2025 9:21 AM EDT) [facility] Glucose Meter POC 83 70 - 100 mg/dL 03/01/2025 9:22 AM EDT [facility] Sample Type Capillary 03/01/2025 9:22 AM EDT [facility] Patient Status Non-Critical Patient 03/01/2025 9:22 AM EDT [facility] Blood BLOOD SPECIMEN / Unknown 03/01/2025 9:21 AM EDT 03/01/2025 9:22 AM EDT Sameer Ortega MD POINT OF CARE TEST ORDERABLES Fi nal Result Performing Organization Address [facility] de Phone Number [facility] [address] [place] [address] * XR CHEST AP PORTABLE (03/01/2025 9:20 [...] AM EDT Impressions 03/01/2025 10:17 AM EDT [place] [facility] Test Date: 2025-03-01 Pat Name: STEVE KING Department: DEPID Room: W370 Gender: Male [employer]: : [id number] Requested By: STACIA Parson Order Number: [id number] Reading MD: David Mar Measurements Intervals [place] Rate: 75 P: 70 [place]: 263 QRS: -29 QRSD: 138 T: 128 QT: 440 QTc: 491 Interpretive Statements SINUS RHYTHM WITH FIRST DEGREE AV BLOCK WITH OCCASIONAL SUPRAVENTRICULAR PREMATURE COMPLEXES BORDERLINE LEFT AXIS DEVIATION LBBB Electronically Signed On 03-01-2025 10:17:38 EDT by David Mar Narrative Procedure Note David Mar MD - 03/01/[address] [facility] [facility] Test Date: 2025-03-01 Pat Name: STEVE KING Department: DEPID Room: 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: 1935 Requested By: STACIA Parson Order Number: [id number] Reading MD: David Mar Measurements Intervals [place] Rate: 75 P: 70 [place]: 263 QRS: -29 QRSD: 138 T: 128 QT: 440 QTc: 491 Interpretive Statements SINUS RHYTHM WITH FIRST DEGREE AV BLOCK WITH OCCASIONAL SUPRAVENTRICULAR PREMATURE COMPLEXES BORDERLINE LEFT AXIS DEVIATION LBBB Electronically Signed On 03-01-2025 10:17:38 EDT by David Mar us Stacia Shrestha MD IMG ECG ORDERABLES Final Result * GLUCOSE METER POC (03/01/2025 8:20 AM EDT) Glucose Meter POC 85 70 - 100 mg/dL 03/01/2025 8:21 AM EDT [place] [facility] Sample Type Capillary 03/01/2025 8:21 AM EDT [facility] Patient Status Non-Critical Patient 03/01/2025 8:21 AM EDT [facility] Blood BLOOD SPECIMEN / Unknown 03/01/2025 8:20 AM EDT 03/01/2025 8:21 AM EDT us Sameer Ortega MD POINT OF CARE TEST ORDERABLES Fi nal Result [facility] [address] [place], [place] [id number] * (ABNORMAL) GLUCOSE METER POC (02/28/2025 9:12 PM EDT) Glucose Meter POC 180(H) 70 - 100 mg/dL 02/28/2025 9:26 PM EDT [facility] Sample Type Capillary 02/28/2025 9:26 PM EDT [facility] Patient Status Non-Critical Patient 02/28/2025 9:26 PM EDT [facility] Blood BLOOD SPECIMEN / Unknown 02/28/2025 9:12 PM EDT 02/28/2025 9:26 PM EDT us Sameer Ortega MD POINT OF CARE TEST ORDERABLES Fi nal Result Performing Organization Address [facility]/ZIP Co de Phone Number [facility] [address] [place] [address] * (ABNORMAL) GLUCOSE METER POC (02/28/2025 6:07 PM EDT) Glucose Meter POC 185(H) 70 - 100 mg/dL 02/28/2025 6:09 PM EDT [facility] Sample Type Capillary 02/28/2025 6:09 PM EDT [facility] Patient Status Non-Critical Patient 02/28/2025 6:09 PM EDT [facility] Blood BLOOD SPECIMEN / Unknown 02/28/2025 6:07 PM EDT 02/28/2025 6:09 PM EDT us Sameer Ortega MD POINT OF CARE TEST ORDERABLES Fi nal Result Performing Organization Address [facility]/ZIP Co de Phone Number [facility] [address] [place] [address] * (ABNORMAL) HEMOGLOBIN AND HEMATOCRIT (02/28/2025 5:00 PM EDT) Hgb 9.7(L) 13.7 - 17.5 g/dL 02/28/2025 5:08 PM EDT [facility] Hct 30.5(L) 40.0 - 51.0 % 02/28/2025 5:08 PM EDT [facility] Blood VENOUS BLOOD / Unknown Venipuncture / Unknown 02/28/2025 5:00 PM EDT 02/28/2025 5:06 PM EDT Ozzie Fernandez MD HEMATOLOGY ORDERABLES Final Resu lt Performing Organization Address City/[facility]/ZIP Co de Phone Number [facility] [address] [facility] [place] [address] * (ABNORMAL) GLUCOSE METER POC (02/28/2025 1:08 PM EDT) Glucose Meter POC 109(H) 70 - 100 mg/dL 02/28/2025 1:10 PM EDT [facility] Sample Type Capillary 02/28/2025 1:10 PM EDT [facility] Patient Status Non-Critical Patient 02/28/2025 1:10 PM EDT [facility] Blood BLOOD SPECIMEN / Unknown 02/28/2025 1:08 PM EDT 02/28/2025 1:10 PM EDT Sameer Ortega MD POINT OF CARE TEST ORDERABLES Fi nal Result Performing Organization Address [facility] Co de Phone Number [facility] [address] [place] [address] * GLUCOSE METER POC (02/28/2025 10:47 AM EDT) Glucose Meter POC 99 70 - 100 mg/dL 02/28/2025 10:49 AM EDT [facility] Sample Type Capillary 02/28/2025 10:49 AM EDT [facility] Patient Status Non-Critical Patient 02/28/2025 10:49 AM EDT [facility] Blood BLOOD SPECIMEN / Unknown 02/28/2025 10:47 AM EDT 02/28/2025 10:49 AM EDT Sameer Ortega MD POINT OF CARE TEST ORDERABLES Fi nal Result Performing Organization Address City/[facility]/ZIP Co de Phone Number [facility] [address] [place] [address] * (ABNORMAL) HEMOGLOBIN AND HEMATOCRIT (02/28/2025 5:16 AM EDT) Pathologist [facility] Hgb 9.1(L) 13.7 - 17.5 g/dL 02/28/2025 5:29 AM EDT [facility] Hct 27.9(L) 40.0 - 51.0 % 02/28/2025 5:29 AM EDT [facility] Blood VENOUS STRUCTURE / Unknown Venipuncture / Unknown 02/28/2025 5:16 AM EDT 02/28/2025 5:27 AM EDT Ozzie Fernandez MD HEMATOLOGY ORDERABLES Final Resu lt Performing Organization Address City/[facility]/ZIP Co de Phone Number [facility] [address] [place] [address] * (ABNORMAL) C-REACTIVE PROTEIN (02/28/2025 5:16 AM EDT) [facility] CRP 42.59(H) <=5.00 mg/L 02/28/2025 9:31 AM EDT [facility] Blood VENOUS STRUCTURE / Unknown Venipuncture / Unknown 02/28/2025 5:16 AM EDT 02/28/2025 5:27 AM EDT Mason Jacome DO CHEMISTRY ORDERABLES Final Res ult Performing Organization Address City/[facility]/ZIP Co de Phone Number [facility] [address] [place] [address] , [address] [place] [phone] * (ABNORMAL) GLUCOSE METER POC (02/27/2025 9:12 PM EDT) [facility] Glucose Meter POC 196(H) 70 - 100 mg/dL 02/27/2025 9:14 PM EDT [facility] Sample Type Capillary 02/27/2025 9:14 PM EDT [facility] Patient Status Non-Critical Patient 02/27/2025 9:14 PM EDT [facility] Blood BLOOD SPECIMEN / Unknown 02/27/2025 9:12 PM EDT 02/27/2025 9:14 PM EDT Sameer Ortega MD POINT OF CARE TEST ORDERABLES Fi nal Result Performing Organization Address [facility] de Phone Number [facility] [address] [place] [address] * (ABNORMAL) HEMOGLOBIN AND HEMATOCRIT (02/27/2025 5:21 PM EDT) Hgb 9.7(L) 13.7 - 17.5 g/dL 02/27/2025 5:30 PM EDT [facility] Hct 29.3(L) 40.0 - 51.0 % 02/27/2025 5:30 PM EDT [facility] Blood VENOUS BLOOD / Unknown Venipuncture / Unknown 02/27/2025 5:21 PM EDT 02/27/2025 5:28 PM EDT Ozzie Fernandez MD HEMATOLOGY ORDERABLES Final Resu lt Performing Organization Address [facility] de Phone Number [facility] [address] [place] [address] * (ABNORMAL) GLUCOSE METER POC (02/27/2025 4:52 PM EDT) [facility] Glucose Meter POC 165(H) 70 - 100 mg/dL 02/27/2025 4:53 PM EDT [facility] Sample Type Capillary 02/27/2025 4:53 PM EDT [facility] Patient Status Non-Critical Patient 02/27/2025 4:53 PM EDT [facility] Blood BLOOD SPECIMEN / Unknown 02/27/2025 4:52 PM EDT 02/27/2025 4:53 PM EDT Sameer Ortega MD POINT OF CARE TEST ORDERABLES Fi nal Result Performing Organization Address [facility] Co de Phone Number [facility] [address] [place] [address] * (ABNORMAL) GLUCOSE METER POC (02/27/2025 11:27 AM EDT) [facility] Glucose Meter POC 130(H) 70 - 100 mg/dL 02/27/2025 11:28 AM EDT [facility] Sample Type Capillary 02/27/2025 11:28 AM EDT [facility] Patient Status Non-Critical Patient 02/27/2025 11:28 AM EDT [facility] Blood BLOOD SPECIMEN / Unknown 02/27/2025 11:27 AM EDT 02/27/2025 11:28 AM EDT us Sameer Ortega MD POINT OF CARE TEST ORDERABLES Fi nal Result [facility] [address] [place] [address] * (ABNORMAL) CBC WITH DIFF (02/27/2025 9:02 AM EDT) [facility] WBC 7.5 3.7 - 10.3 x10(3)/mcL 02/27/2025 9:07 AM EDT [facility] RBC 3.17(L) 4.60 - 6.10 x10(6)/mcL 02/27/2025 9:07 AM EDT [facility] Hgb 9.9(L) 13.7 - 17.5 g/dL 02/27/2025 9:07 AM EDT [facility] Hct 30.3(L) 40.0 - 51.0 % 02/27/2025 9:07 AM EDT [facility] MCV 95.6 80.0 - 100.0 fL 02/27/2025 9:07 AM EDT [facility] MCH 31.2 26.0 - 34.0 pg 02/27/2025 9:07 AM EDT [facility] MCHC 32.7 30.7 - 35.5 g/dL 02/27/2025 9:07 AM EDT [facility] RDW 14.6 <=14.9 % 02/27/2025 9:07 AM EDT [facility] Platelet 266 155 - 369 x10(3)/mcL 02/27/2025 9:07 AM EDT [facility] MPV 8.5(L) 8.8 - 12.5 fL 02/27/2025 9:07 AM EDT [facility] Neut Percent 67.8 % 02/27/2025 9:07 AM EDT [facility] Comment:Neutrophils equals s egs plus bands Imm Gran% 0.5 % 02/27/2025 9:07 AM EDT [facility] Comment:Automated count of m etamyelocytes, myelocytes and promyelocytes. Lymph Percent 19.5 % 02/27/2025 9:07 AM EDT [facility] Dukes Percent 8.3 % 02/27/2025 9:07 AM EDT [facility] Eos Percent 3.6 % 02/27/2025 9:07 AM EDT [facility] Baso Percent 0.3 % 02/27/2025 9:07 AM EDT [facility] Neut # 5.1 1.6 - 6.1 x10(3)/[facility] 02/27/2025 9:07 AM EDT [facility] Comment:Neutrophils equals s egs plus bands IMMGRAN# 0.0 0.0 - 0.1 x10(3)/[facility] 02/27/2025 9:07 AM EDT [facility] Comment:Automated count of m etamyelocytes, myelocytes and promyelocytes. An absolute IG <0.1 is reported as 0.0. Lymph # 1.5 1.2 - 3.9 x10(3)/[facility] 02/27/2025 9:07 AM EDT [facility] Dukes # 0.6 0.3 - 0.9 x10(3)/[facility] 02/27/2025 [facility] Eos# 0.3 0.0 - 0.5 x10(3)/[facility] 02/27/2025 9:[facility] Baso # 0.0 0.0 - 0.1 x10(3)/[facility] 02/27/2025 9:07 AM [facility] Blood VENOUS BLOOD / Unknown Venipuncture / Unknown 02/27/2025 9:02 AM EDT 02/27/2025 9:04 AM EDT Ozzie Fernandez MD HEMATOLOGY ORDERABLES Final Resu lt [facility] [address] [place] [address] * (ABNORMAL) BASIC METABOLIC PANEL (02/27/2025 9:02 AM EDT) Sodium 137 136 - 145 mmol/L 02/27/2025 9:24 AM EDT [facility] Potassium 3.9 3.5 - 5.0 mmol/L 02/27/2025 9:24 AM EDT [facility] Chloride 100 98 - 107 mmol/L 02/27/2025 9:24 AM EDT [facility] Total CO2 26 22 - 29 mmol/L 02/27/2025 9:24 AM EDT [facility] Anion Gap 11 7 - 16 mmol/L 02/27/2025 9:24 AM EDT [facility] Calcium 8.6(L) 8.8 - 10.4 mg/dL 02/27/2025 9:24 AM EDT [facility] Glucose Lvl 145(H) 70 - 99 mg/dL 02/27/2025 9:24 AM EDT [facility] BUN 22 8 - 23 mg/dL 02/27/2025 9:24 AM EDT [facility] Creatinine 0.90 0.67 - 1.30 mg/dL 02/27/2025 9:24 AM EDT [facility] eGFR (CKD-EPIcr 2020) 83 >=60 mL/min/1.7 3 m2 02/27/2025 9:24 AM EDT [facility] Comment:Estimated GFR was ca lculated using the CKD-EPIcr (2020) equation refit without race. The equation is recommended by the [employer] - [employer] [place] [employer] of Nephrology Task Force. Blood VENOUS BLOOD / Unknown Venipuncture / Unknown 02/27/2025 9:02 AM EDT 02/27/2025 9:04 AM EDT us Ozzie Fernandez MD CHEMISTRY ORDERABLES Final Resul t Performing Organization Address [facility] Co de Phone Number [facility] [address] [place] [address] * (ABNORMAL) GLUCOSE METER POC (02/27/2025 7:32 AM EDT) Glucose Meter POC 168(H) 70 - 100 mg/dL 02/27/2025 7:34 AM EDT [facility] Sample Type Capillary 02/27/2025 7:34 AM EDT [facility] Patient Status Non-Critical Patient 02/27/2025 7:34 AM EDT [facility] Blood BLOOD SPECIMEN / Unknown 02/27/2025 7:32 AM EDT 02/27/2025 7:34 AM EDT Smaeer Ortega MD POINT OF CARE TEST ORDERABLES Fi nal Result Performing Organization Address [facility] de Phone Number [facility] [address] [place] [address] * (ABNORMAL) GLUCOSE METER POC (02/26/2025 9:30 PM EDT) Glucose Meter POC 169(H) 70 - 100 mg/dL 02/26/2025 9:31 PM EDT [facility] Sample Type Capillary 02/26/2025 9:31 PM EDT [facility] Patient Status Non-Critical Patient 02/26/2025 9:31 PM EDT [facility] Blood BLOOD SPECIMEN / Unknown 02/26/2025 9:30 PM EDT 02/26/2025 9:31 PM EDT us Sameer Ortega MD POINT OF CARE TEST ORDERABLES Fi nal Result Performing Organization Address [facility] Co de Phone Number [facility] [address] [place] [address] * (ABNORMAL) GLUCOSE METER POC (02/26/2025 4:37 PM EDT) Glucose Meter POC 158(H) 70 - 100 mg/dL 02/26/2025 4:39 PM EDT [facility] Sample Type Capillary 02/26/2025 4:39 PM EDT [facility] Patient Status Non-Critical Patient 02/26/2025 4:39 PM EDT [facility] Blood BLOOD SPECIMEN / Unknown 02/26/2025 4:37 PM EDT 02/26/2025 4:39 PM EDT Sameer Ortega MD POINT OF CARE TEST ORDERABLES Fi nal Result Performing Organization Address City/[facility]/ZIP Co de Phone Number [facility] [address] [place] [address] * LACTIC ACID (02/26/2025 4:30 PM EDT) Pathologist [facility] Lactic Acid 1.5 0.5 - 1.9 mmol/L 02/26/2025 5:00 PM EDT [facility] Blood VENOUS BLOOD / Unknown Venipuncture / Unknown 02/26/2025 4:30 PM EDT 02/26/2025 4:40 PM EDT us Ozzie Fernandez MD CHEMISTRY ORDERABLES Final Resul t Performing Organization Address [facility] Co de Phone Number [facility] [address] [place] [address] * (ABNORMAL) C-REACTIVE PROTEIN (02/26/2025 4:30 PM EDT) Pathologist [facility] CRP 71.36(H) <=5.00 mg/L 02/26/2025 7:37 PM EDT [facility] Blood VENOUS BLOOD / Unknown Venipuncture / Unknown 02/26/2025 4:30 PM EDT 02/26/2025 4:40 PM EDT us Ozzie Fernandez MD CHEMISTRY ORDERABLES Final Resul t Performing Organization Address City/[facility]/ZIP Co de Phone Number [facility] [address] [facility] , [place] [address] * PROCALCITONIN (02/26/2025 4:30 PM EDT) Procalcitonin 0.08 <=0.49 ng/mL 02/26/2025 5:08 PM EDT [facility] Blood VENOUS BLOOD / Unknown Venipuncture / Unknown 02/26/2025 4:30 PM EDT 02/26/2025 4:40 PM EDT Narrative [facility] - 02/26/2025 5:08 PM EDT [...] to severe sepsis and/or septic shock. us Ozzie Fernandez MD CHEMISTRY ORDERABLES Final Resul t [facility] [address] [place], [place] [id number] * (ABNORMAL) GLUCOSE METER POC (02/26/2025 12:16 PM EDT) Glucose Meter POC 136(H) 70 - 100 mg/dL 02/26/2025 12:17 PM EDT [facility] Sample Type Capillary 02/26/2025 12:17 PM EDT [facility] Patient Status Non-Critical Patient 02/26/2025 12:17 PM EDT [facility] Blood BLOOD SPECIMEN / Unknown 02/26/2025 12:16 PM EDT 02/26/2025 12:17 PM EDT us Sameer Ortega MD POINT OF CARE TEST ORDERABLES Fi nal Result [facility] [address] [place] [address] * XR CHEST AP PORTABLE (02/26/2025 11:22 [...] contactthe office of the ordering clinician. us Sameer Ortega MD IMG DIAGNOSTIC IMAGING ORDERABLE S Final Result * BEDSIDE PICC INSERTION (PICC TEAM RN) (02/26/2025 10:49 AM EDT) Narrative [facility] - 02/26/2025 10:49 AM EDT Jocelynn [...] Viera APRN PROCEDURE/MINOR SURGICAL ORDERABLES Final Result Performing Organization Address City/[facility]/ZIP Co de Phone Number [facility] [address] [place] [address] * (ABNORMAL) GLUCOSE METER POC (02/26/2025 8:49 AM EDT) [facility] Glucose Meter POC 121(H) 70 - 100 mg/dL 02/26/2025 8:51 AM EDT [facility] Sample Type Capillary 02/26/2025 8:51 AM EDT [facility] Patient Status Non-Critical Patient 02/26/2025 8:51 AM EDT [facility] Blood BLOOD SPECIMEN / Unknown 02/26/2025 8:49 AM EDT 02/26/2025 8:51 AM EDT Sameer Ortega MD POINT OF CARE TEST ORDERABLES Fi nal Result Performing Organization Address City/[facility]/ZIP Co de Phone Number [facility] [address] [place] [address] * (ABNORMAL) CBC WITH DIFF (02/26/2025 7:45 AM EDT) [facility] WBC 6.3 3.7 - 10.3 x10(3)/mcL 02/26/2025 9:13 AM EDT [facility] RBC 3.30(L) 4.60 - 6.10 x10(6)/mcL 02/26/2025 9:13 AM EDT [facility] Hgb 10.4(L) 13.7 - 17.5 g/dL 02/26/2025 9:13 AM EDT [facility] Hct 31.7(L) 40.0 - 51.0 % 02/26/2025 9:13 AM EDT [facility] MCV 96.1 80.0 - 100.0 fL 02/26/2025 9:13 AM EDT [facility] MCH 31.5 26.0 - 34.0 pg 02/26/2025 9:13 AM EDT [facility] MCHC 32.8 30.7 - 35.5 g/dL 02/26/2025 9:13 AM EDT [facility] RDW 14.5 <=14.9 % 02/26/2025 9:13 AM EDT [facility] Platelet 313 155 - 369 x10(3)/mcL 02/26/2025 9:13 AM EDT [facility] MPV 10.1 8.8 - 12.5 fL 02/26/2025 9:13 AM EDT [facility] Neut Percent 63.9 % 02/26/2025 9:13 AM EDT [facility] Comment:Neutrophils equals s egs plus bands Imm Gran% 0.6 % 02/26/2025 9:13 AM EDT [facility] Comment:Automated count of m etamyelocytes, myelocytes and promyelocytes. Lymph Percent 21.1 % 02/26/2025 9:13 AM EDT [facility] Dukes Percent 10.1 % 02/26/2025 9:13 AM EDT [facility] Eos Percent 3.8 % 02/26/2025 9:13 AM EDT [facility] Baso Percent 0.5 % 02/26/2025 9:13 AM EDT [facility] Neut # 4.0 1.6 - 6.1 x10(3)/[facility] 02/26/2025 9:13 AM EDT [facility] Comment:Neutrophils equals s egs plus bands IMMGRAN# 0.0 0.0 - 0.1 x10(3)/[facility] 02/26/2025 9:13 AM EDT [facility] Comment:Automated count of m etamyelocytes, myelocytes and promyelocytes. An absolute IG <0.1 is reported as 0.0. Lymph # 1.3 1.2 - 3.9 x10(3)/[facility] 02/26/2025 9:13 AM EDT [facility] Dukes # 0.6 0.3 - 0.9 x10(3)/[facility] 02/26/2025 9:13 AM EDT [facility] Eos# 0.2 0.0 - 0.5 x10(3)/[facility] 02/26/2025 9:13 AM EDT [facility] Baso # 0.0 0.0 - 0.1 x10(3)/[facility] 02/26/2025 9:13 AM EDT [facility] Blood VENOUS BLOOD / Unknown Venipuncture / Unknown 02/26/2025 7:45 AM EDT 02/26/2025 7:57 AM EDT us Ozzie Fernandez MD HEMATOLOGY ORDERABLES Final Resu lt [facility] [address] [place] [phone] * (ABNORMAL) BASIC METABOLIC PANEL (02/26/2025 7:45 AM EDT) Sodium 138 136 - 145 mmol/L 02/26/2025 2:25 PM EDT [facility] Potassium 4.3 3.5 - 5.0 mmol/L 02/26/2025 2:25 PM EDT [facility] Chloride 99 98 - 107 mmol/L 02/26/2025 2:25 PM EDT [facility] Total CO2 26 22 - 29 mmol/L 02/26/2025 2:25 PM EDT [facility] Anion Gap 13 7 - 16 mmol/L 02/26/2025 2:25 PM EDT [facility] Calcium 8.9 8.8 - 10.4 mg/dL 02/26/2025 2:25 PM EDT [facility] Glucose Lvl 127(H) 70 - 99 mg/dL 02/26/2025 2:25 PM EDT [facility] BUN 24(H) 8 - 23 mg/dL 02/26/2025 2:25 PM EDT [facility] Creatinine 0.93 0.67 - 1.30 mg/dL 02/26/2025 2:25 PM EDT [facility] eGFR (CKD-EPIcr 2020) 79 >=60 mL/min/1.7 3 m2 02/26/2025 2:25 PM EDT [facility] Comment:Estimated GFR was ca lculated using the CKD-EPIcr (2020) equation refit without race. The equation is recommended by the [employer] - [employer] [place] [employer] of Nephrology Task Force. Blood VENOUS BLOOD / Unknown Venipuncture / Unknown 02/26/2025 7:45 AM EDT 02/26/2025 7:56 AM EDT us Ozzie Fernandez MD CHEMISTRY ORDERABLES Final Resul t Performing Organization Address City/[facility]/ZIP Co de Phone Number [facility] [address] [facility], [address] [place] [id number] * EXTRA LAVENDER (02/26/2025 7:45 AM EDT) Blood VENOUS BLOOD / Unknown Venipuncture / Unknown 02/26/2025 7:45 AM EDT 02/26/2025 7:57 AM EDT us Sameer Ortega MD HEMATOLOGY ORDERABLES Final Resu lt [facility] [address] [place] [address] * (ABNORMAL) C-REACTIVE PROTEIN (02/26/2025 7:45 AM EDT) CRP 75.55(H) <=5.00 mg/L 02/26/2025 9:59 AM EDT [facility] Blood VENOUS BLOOD / Unknown Venipuncture / Unknown 02/26/2025 7:45 AM EDT 02/26/2025 7:56 AM EDT Mason Jacome DO CHEMISTRY ORDERABLES Final Res ult [facility] [address] [facility], [address] [place], [place] [id number] * (ABNORMAL) GLUCOSE METER POC (02/25/2025 9:24 PM EDT) Glucose Meter POC 236(H) 70 - 100 mg/dL 02/25/2025 9:26 PM EDT [facility] Sample Type Capillary 02/25/2025 9:26 PM EDT [facility] Patient Status Non-Critical Patient 02/25/2025 9:26 PM EDT [facility] Blood BLOOD SPECIMEN / Unknown 02/25/2025 9:24 PM EDT 02/25/2025 9:26 PM EDT Sameer Ortega MD POINT OF CARE TEST ORDERABLES Fi nal Result Performing Organization Address City/[facility]/ZIP Co de Phone Number [facility] [address] [place] [address] * (ABNORMAL) GLUCOSE METER POC (02/25/2025 5:45 PM EDT) Glucose Meter POC 142(H) 70 - 100 mg/dL 02/25/2025 5:46 PM EDT [facility] Sample Type Capillary 02/25/2025 5:46 PM EDT [facility] Patient Status Non-Critical Patient 02/25/2025 5:46 PM EDT [facility] Blood BLOOD SPECIMEN / Unknown 02/25/2025 5:45 PM EDT 02/25/2025 5:46 PM EDT us Sameer Ortega MD POINT OF CARE TEST ORDERABLES Fi nal Result Performing Organization Address [facility] Co de Phone Number [facility] [address] [place] [address] * GLUCOSE METER POC (02/25/2025 12:06 PM EDT) Glucose Meter POC 97 70 - 100 mg/dL 02/25/2025 12:07 PM EDT [facility] [facility] Sample Type Capillary 02/25/2025 12:07 PM EDT [facility] Patient Status Non-Critical Patient 02/25/2025 12:07 PM EDT [facility] Blood BLOOD SPECIMEN / Unknown 02/25/2025 12:06 PM EDT 02/25/2025 12:07 PM EDT us Sameer Ortega MD POINT OF CARE TEST ORDERABLES Fi nal Result Performing Organization Address [facility] de Phone Number [facility] [address] [place] [address] * (ABNORMAL) GLUCOSE METER POC (02/25/2025 11:55 AM EDT) Glucose Meter POC 101(H) 70 - 100 mg/dL 02/25/2025 11:56 AM EDT [facility] Sample Type Capillary 02/25/2025 11:56 AM EDT [facility] Patient Status Non-Critical Patient 02/25/2025 11:56 AM EDT [facility] Blood BLOOD SPECIMEN / Unknown 02/25/2025 11:55 AM EDT 02/25/2025 11:56 AM EDT us Sameer Ortega MD POINT OF CARE TEST ORDERABLES Fi nal Result Performing Organization Address City/[facility] Co de Phone Number [facility] [address] [place] [address] * (ABNORMAL) GLUCOSE METER POC (02/25/2025 7:28 AM EDT) Glucose Meter POC 165(H) 70 - 100 mg/dL 02/25/2025 7:30 AM EDT [facility] Sample Type Capillary 02/25/2025 7:30 AM EDT [facility] Patient Status Non-Critical Patient 02/25/2025 7:30 AM EDT [facility] Blood BLOOD SPECIMEN / Unknown 02/25/2025 7:28 AM EDT 02/25/2025 7:30 AM EDT Sameer Ortega MD POINT OF CARE TEST ORDERABLES Fi nal Result Performing Organization Address [facility] Co de Phone Number [facility] [address] [place] [address] * (ABNORMAL) HEMOGLOBIN AND HEMATOCRIT (02/25/2025 6:04 AM EDT) Hgb 9.8(L) 13.7 - 17.5 g/dL 02/25/2025 6:58 AM EDT [facility] Hct 29.8(L) 40.0 - 51.0 % 02/25/2025 6:58 AM EDT [facility] Blood VENOUS BLOOD / Unknown Venipuncture / Unknown 02/25/2025 6:04 AM EDT 02/25/2025 6:54 AM EDT Mason Jacome DO HEMATOLOGY ORDERABLES Final Re sult Performing Organization Address [facility] Co de Phone Number [facility] [address] [place] [address] * (ABNORMAL) BASIC METABOLIC PANEL (02/25/2025 6:04 AM EDT) Sodium 133(L) 136 - 145 mmol/L 02/25/2025 7:15 AM EDT [facility] Potassium 4.5 3.5 - 5.0 mmol/L 02/25/2025 7:15 AM EDT [facility] Chloride 98 98 - 107 mmol/L 02/25/2025 7:15 AM EDT [facility] Total CO2 25 22 - 29 mmol/L 02/25/2025 7:15 AM EDT [facility] Anion Gap 10 7 - 16 mmol/L 02/25/2025 7:15 AM EDT [facility] Calcium 8.6(L) 8.8 - 10.4 mg/dL 02/25/2025 7:15 AM EDT [facility] Glucose Lvl 191(H) 70 - 99 mg/dL 02/25/2025 7:15 AM EDT [facility] BUN 21 8 - 23 mg/dL 02/25/2025 7:15 AM EDT [facility] Creatinine 0.92 0.67 - 1.30 mg/dL 02/25/2025 7:15 AM EDT [facility] eGFR (CKD-EPIcr 2020) 81 >=60 mL/min/1.7 3 m2 02/25/2025 7:15 AM EDT [facility] Comment:Estimated GFR was ca lculated using the CKD-EPIcr (2020) equation refit without race. The equation is recommended by the [employer] Kid[employer] - [place] [employer] of Nephrology Task Force. Blood VENOUS BLOOD / Unknown Venipuncture / Unknown 02/25/2025 6:04 AM EDT 02/25/2025 6:54 AM EDT Berenice Dallas CHEMISTRY ORDERABLES Final Result [facility] [address] [place], [place] [id number] * (ABNORMAL) GLUCOSE METER POC (02/24/2025 10:11 PM EDT) [facility] Glucose Meter POC 225(H) 70 - 100 mg/dL 02/24/2025 10:12 PM EDT [facility] Sample Type Capillary 02/24/2025 10:12 PM EDT [facility] Patient Status Non-Critical Patient 02/24/2025 10:12 PM EDT [facility] Blood BLOOD SPECIMEN / Unknown 02/24/2025 10:11 PM EDT 02/24/2025 10:12 PM EDT us Sameer Ortega MD POINT OF CARE TEST ORDERABLES Fi nal Result Performing Organization Address City/[facility]/ZIP Co de Phone Number [facility] [address] [place] [address] * (ABNORMAL) GLUCOSE METER POC (02/24/2025 5:27 PM EDT) Glucose Meter POC 144(H) 70 - 100 mg/dL 02/24/2025 5:28 PM EDT [facility] Sample Type Capillary 02/24/2025 5:28 PM EDT [facility] Patient Status Non-Critical Patient 02/24/2025 5:28 PM EDT [facility] Blood BLOOD SPECIMEN / Unknown 02/24/2025 5:27 PM EDT 02/24/2025 5:28 PM EDT us Sameer Ortega MD POINT OF CARE TEST ORDERABLES Fi nal Result Performing Organization Address [facility] Co de Phone Number [facility] [address] [place] [address] * (ABNORMAL) GLUCOSE METER POC (02/24/2025 12:35 PM EDT) Glucose Meter POC 148(H) 70 - 100 mg/dL 02/24/2025 12:36 PM EDT [facility] Sample Type Capillary 02/24/2025 12:36 PM EDT [facility] Patient Status Non-Critical Patient 02/24/2025 12:36 PM EDT [facility] Blood BLOOD SPECIMEN / Unknown 02/24/2025 12:35 PM EDT 02/24/2025 12:36 PM EDT us Sameer Ortega MD POINT OF CARE TEST ORDERABLES Fi nal Result Performing Organization Address City/[facility]/ZIP Co de Phone Number [facility] [address] [place] [address] * (ABNORMAL) GLUCOSE METER POC (02/24/2025 8:14 AM EDT) Glucose Meter POC 173(H) 70 - 100 mg/dL 02/24/2025 8:16 AM EDT [facility] Sample Type Capillary 02/24/2025 8:16 AM EDT [facility] Patient Status Non-Critical Patient 02/24/2025 8:16 AM EDT [facility] Blood BLOOD SPECIMEN / Unknown 02/24/2025 8:14 AM EDT 02/24/2025 8:16 AM EDT Sameer Ortega MD POINT OF CARE TEST ORDERABLES Fi nal Result Performing Organization Address [facility]/ZIP Co de Phone Number [facility] [address] [place] [address] * (ABNORMAL) HEMOGLOBIN AND HEMATOCRIT (02/24/2025 5:13 AM EDT) [facility] Hgb 9.6(L) 13.7 - 17.5 g/dL 02/24/2025 5:43 AM EDT [facility] Hct 29.7(L) 40.0 - 51.0 % 02/24/2025 5:43 AM EDT [facility] Blood VENOUS BLOOD / Unknown Venipuncture / Unknown 02/24/2025 5:13 AM EDT 02/24/2025 5:41 AM EDT Mason Jacome DO HEMATOLOGY ORDERABLES Final Re sult Performing Organization Address City/[facility]/ZIP Co de Phone Number [facility] [address] [place] [address] * (ABNORMAL) BASIC METABOLIC PANEL (02/24/2025 5:13 AM EDT) [facility] Sodium 134(L) 136 - 145 mmol/L 02/24/2025 6:02 AM EDT [facility] Potassium 4.2 3.5 - 5.0 mmol/L 02/24/2025 6:02 AM EDT [facility] Chloride 100 98 - 107 mmol/L 02/24/2025 6:02 AM EDT [facility] Total CO2 23 22 - 29 mmol/L 02/24/2025 6:02 AM EDT [facility] Anion Gap 11 7 - 16 mmol/L 02/24/2025 6:02 AM EDT [facility] Calcium 8.5(L) 8.8 - 10.4 mg/dL 02/24/2025 6:02 AM EDT [facility] Glucose Lvl 222(H) 70 - 99 mg/dL 02/24/2025 6:02 AM EDT [facility] BUN 24(H) 8 - 23 mg/dL 02/24/2025 6:02 AM EDT [facility] Creatinine 1.09 0.67 - 1.30 mg/dL 02/24/2025 6:02 AM EDT [facility] eGFR (CKD-EPIcr 2020) 66 >=60 mL/min/1.7 3 m2 02/24/2025 6:02 AM EDT [facility] Comment:Estimated GFR was ca lculated using the CKD-EPIcr (2020) equation refit without race. The equation is recommended by the National Kidney [employer] - [place] Society of Nephrology Task Force. Blood VENOUS BLOOD / Unknown Venipuncture / Unknown 02/24/2025 5:13 AM EDT 02/24/2025 5:41 AM EDT Berenice Dallas DO CHEMISTRY ORDERABLES Final Result [facility] [address] [place] [phone] * (ABNORMAL) GLUCOSE METER POC (02/23/2025 9:29 PM EDT) [facility] Glucose Meter POC 256(H) 70 - 100 mg/dL 02/23/2025 9:31 PM EDT [facility] Sample Type Capillary 02/23/2025 9:31 PM EDT [facility] Patient Status Non-Critical Patient 02/23/2025 9:31 PM EDT [facility] Blood BLOOD SPECIMEN / Unknown 02/23/2025 9:29 PM EDT 02/23/2025 9:31 PM EDT us Sameer Ortega MD POINT OF CARE TEST ORDERABLES Fi nal Result Performing Organization Address City/[facility]/ZIP Co de Phone Number [facility] [address] [place] [address] * (ABNORMAL) GLUCOSE METER POC (02/23/2025 8:17 PM EDT) Glucose Meter POC 224(H) 70 - 100 mg/dL 02/23/2025 8:18 PM EDT [facility] Sample Type Capillary 02/23/2025 8:18 PM EDT [facility] Patient Status Non-Critical Patient 02/23/2025 8:18 PM EDT [facility] Blood BLOOD SPECIMEN / Unknown 02/23/2025 8:17 PM EDT 02/23/2025 8:18 PM EDT us Sameer Ortega MD POINT OF CARE TEST ORDERABLES Fi nal Result Performing Organization Address [facility] Co de Phone Number [facility] [address] [place] [address] * (ABNORMAL) GLUCOSE METER POC (02/23/2025 5:00 PM EDT) Glucose Meter POC 175(H) 70 - 100 mg/dL 02/23/2025 5:02 PM EDT [facility] Sample Type Capillary 02/23/2025 5:02 PM EDT [facility] Patient Status Non-Critical Patient 02/23/2025 5:02 PM EDT [facility] Blood BLOOD SPECIMEN / Unknown 02/23/2025 5:00 PM EDT 02/23/2025 5:02 PM EDT us Sameer Ortega MD POINT OF CARE TEST ORDERABLES Fi nal Result Performing Organization Address City/[facility]/ZIP Co de Phone Number [facility] [address] [place] [address] * EXTRA MINT GREEN LI (02/23/2025 4:06 PM EDT) Blood VENOUS BLOOD / Unknown Venipuncture / Unknown 02/23/2025 4:06 PM EDT 02/23/2025 4:13 PM EDT Sameer Ortega MD CHEMISTRY ORDERABLES Final Resul t Performing Organization Address [facility] de Phone Number [facility] [address] [place] [address] * (ABNORMAL) SEDIMENTATION RATE AUTOMATED (02/23/2025 4:06 PM EDT) Pathologist [facility] Sed Rate 50(H) 0 - 20 mm/hr 02/23/2025 4:20 PM EDT [facility] Blood VENOUS BLOOD / Unknown Venipuncture / Unknown 02/23/2025 4:06 PM EDT 02/23/2025 4:12 PM EDT Katie Viera APRN HEMATOLOGY ORDERABLES Fin al Result Performing Organization Address [facility] de Phone Number [facility] [address] [place] [address] * (ABNORMAL) CBC WITH DIFF (02/23/2025 4:06 PM EDT) Pathologist [facility] WBC 9.2 3.7 - 10.3 x10(3)/mcL 02/23/2025 4:20 PM EDT [facility] RBC 3.15(L) 4.60 - 6.10 x10(6)/mcL 02/23/2025 4:20 PM EDT [facility] Hgb 9.9(L) 13.7 - 17.5 g/dL 02/23/2025 4:20 PM EDT [facility] Hct 30.3(L) 40.0 - 51.0 % 02/23/2025 4:20 PM EDT [facility] MCV 96.2 80.0 - 100.0 fL 02/23/2025 4:20 PM EDT [facility] MCH 31.4 26.0 - 34.0 pg 02/23/2025 4:20 PM EDT [facility] MCHC 32.7 30.7 - 35.5 g/dL 02/23/2025 4:20 PM EDT [facility] RDW 14.1 <=14.9 % 02/23/2025 4:20 PM EDT [facility] Platelet 241 155 - 369 x10(3)/mcL 02/23/2025 4:20 PM EDT [facility] MPV 9.0 8.8 - 12.5 fL 02/23/2025 4:20 PM EDT [facility] Neut Percent 70.8 % 02/23/2025 4:20 PM EDT [facility] Comment:Neutrophils equals s egs plus bands Imm Gran% 0.8 % 02/23/2025 4:20 PM EDT [facility] Comment:Automated count of m etamyelocytes, myelocytes and promyelocytes. Lymph Percent 17.3 % 02/23/2025 4:20 PM EDT [facility] Dukes Percent 7.5 % 02/23/2025 4:20 PM EDT [facility] Eos Percent 3.3 % 02/23/2025 4:20 PM EDT [facility] Baso Percent 0.3 % 02/23/2025 4:20 PM EDT [facility] Neut # 6.5(H) 1.6 - 6.1 x10(3)/mcL 02/23/2025 4:20 PM EDT [facility] Comment:Neutrophils equals s egs plus bands IMMGRAN# 0.1 0.0 - 0.1 x10(3)/mcL 02/23/2025 4:20 PM T [facility] Comment:Automated count of m etamyelocytes, myelocytes and promyelocytes. An absolute IG <0.1 is reported as 0.0. Lymph # 1.6 1.2 - 3.9 x10(3)/mcL 02/23/2025 4:20 PM EDT [facility] Dukes # 0.7 0.3 - 0.9 x10(3)/mcL 02/23/2025 4:20 PM EDT [facility] Eos# 0.3 0.0 - 0.5 x10(3)/mcL 02/23/2025 4:20 PM EDT [facility] Baso # 0.0 0.0 - 0.1 x10(3)/mcL 02/23/2025 4:20 PM EDT [facility] Blood VENOUS BLOOD / Unknown Venipuncture / Unknown 02/23/2025 4:06 PM EDT 02/23/2025 4:12 PM EDT Katie Viera APRN HEMATOLOGY ORDERABLES Fin al Result Performing Organization Address City/[facility]/ZIP Co de Phone Number [facility] [address] [place] [phone] * BLOOD CULTURE (NO STAIN) (02/23/2025 4:06 PM EDT) Pathologist [facility] Culture Result No Growth at 120 hours. BLOOD CULTURE (NO STAIN) 02/28/2025 9:00 PM EDT [facility] Blood VENOUS BLOOD / Unknown Venipuncture / Unknown 02/23/2025 4:06 PM EDT 02/23/2025 4:14 PM EDT Katie Viera APRN MICROBIOLOGY - GENERAL OR DERABLES Final Result Performing Organization Address [facility] Co de Phone Number [facility] [address] [place] [address] , [address] [place] [phone] * (ABNORMAL) HEPATIC FUNCTION PANEL (02/23/2025 2:55 PM EDT) Total Protein 5.8(L) 6.4 - 8.3 gm/dL 02/23/2025 3:27 PM EDT [facility] Albumin 3.2 3.2 - 4.6 gm/dL 02/23/2025 3:27 PM EDT [facility] Bili Direct <0.2 0.0 - 0.3 mg/dL 02/23/2025 3:27 PM EDT [facility] Bili Total <0.2(L) 0.2 - 1.4 mg/dL 02/23/2025 3:27 PM EDT [facility] AST 14 <=40 U/L 02/23/2025 3:27 PM EDT [facility] ALT 14 <=41 U/L 02/23/2025 3:27 PM EDT [facility] Alk Phos 99 40 - 129 U/L 02/23/2025 3:27 PM EDT [facility] Blood VENOUS BLOOD / Unknown Venipuncture / Unknown 02/23/2025 2:55 PM EDT 02/23/2025 3:03 PM EDT us Katie Viera APRN CHEMISTRY ORDERABLES Marixa l Result [facility] [address] [place] [address] * (ABNORMAL) C-REACTIVE PROTEIN (02/23/2025 2:55 PM EDT) CRP 38.10(H) <=5.00 mg/L 02/23/2025 6:40 PM EDT [facility] [employer] Blood VENOUS BLOOD / Unknown Venipuncture / Unknown 02/23/2025 2:55 PM EDT 02/23/2025 3:02 PM EDT us Katie Viera APRN CHEMISTRY ORDERABLES Marixa l Result [facility] [address] [place] [address] , [place] [address] * BLOOD CULTURE (NO STAIN) (02/23/2025 2:55 PM EDT) Culture Result No Growth at 120 hours. BLOOD CULTURE (NO STAIN) 02/28/2025 9:00 PM EDT [facility] Blood VENOUS BLOOD / Unknown Venipuncture / Unknown 02/23/2025 2:55 PM EDT 02/23/2025 3:03 PM EDT us Katie N Maximiliano AIR QUALITY TECHNICIAN MICROBIOLOGY - GENERAL OR DERABLES Final Result Performing Organization Address City/[facility] Co de Phone Number [facility] [employer], [facility] [address] [facility] , [address] [place], [place] [id number] * (ABNORMAL) GLUCOSE METER POC (02/23/2025 11:37 AM EDT) Glucose Meter POC 257(H) 70 - 100 mg/dL 02/23/2025 11:39 AM EDT [facility] Sample Type Capillary 02/23/2025 11:39 AM EDT [facility] Patient Status Non-Critical Patient 02/23/2025 11:39 AM EDT [facility] Blood BLOOD SPECIMEN / Unknown 02/23/2025 11:37 AM EDT 02/23/2025 11:39 AM EDT Sameer Ortega MD POINT OF CARE TEST ORDERABLES Fi nal Result Performing Organization Address [facility] Co de Phone Number [facility] [address] [place] [address] * VANCOMYCIN LEVEL AUC1 (02/23/2025 10:46 AM EDT) Vancomycin AUC1 49.0 mcg/mL 11:22 AM EDT [facility] Blood VENOUS BLOOD / Unknown Venipuncture / Unknown 02/23/2025 10:46 AM EDT 02/23/2025 11:02 AM EDT Berenice Dallas DO CHEMISTRY ORDERABLES Final Result Performing Organization Address City/[facility] Co de Phone Number [facility] [address] [place] [address] * (ABNORMAL) GLUCOSE METER POC (02/23/2025 8:03 AM EDT) Glucose Meter POC 257(H) 70 - 100 mg/dL 02/23/2025 8:05 AM EDT [facility] Sample Type Capillary 02/23/2025 8:05 AM EDT [facility] Patient Status Non-Critical Patient 02/23/2025 8:05 AM EDT [facility] Blood BLOOD SPECIMEN / Unknown 02/23/2025 8:03 AM EDT 02/23/2025 8:05 AM EDT Sameer Ortega MD POINT OF CARE TEST ORDERABLES Fi nal Result Performing Organization Address [facility] Co de Phone Number [facility] [address] [place] [address] * (ABNORMAL) HEMOGLOBIN AND HEMATOCRIT (02/23/2025 5:40 AM EDT) Hgb 10.0(L) 13.7 - 17.5 g/dL 02/23/2025 6:05 AM EDT [facility] Hct 31.0(L) 40.0 - 51.0 % 02/23/2025 6:05 AM EDT [facility] Blood VENOUS BLOOD / Unknown Venipuncture / Unknown 02/23/2025 5:40 AM EDT 02/23/2025 6:00 AM EDT Mason Jacome DO HEMATOLOGY ORDERABLES Final Re sult Performing Organization Address [facility] de Phone Number [facility] [address] [place] [address] * (ABNORMAL) BASIC METABOLIC PANEL (02/23/2025 5:40 AM EDT) Sodium 133(L) 136 - 145 mmol/L 02/23/2025 6:24 AM EDT [facility] Potassium 4.8 3.5 - 5.0 mmol/L 02/23/2025 6:24 AM EDT [facility] Chloride 99 98 - 107 mmol/L 02/23/2025 6:24 AM EDT [facility] Total CO2 24 22 - 29 mmol/L 02/23/2025 6:24 AM EDT [facility] Anion Gap 10 7 - 16 mmol/L 02/23/2025 6:24 AM EDT [facility] Calcium 8.4(L) 8.8 - 10.4 mg/dL 02/23/2025 6:24 AM EDT [facility] Glucose Lvl 281(H) 70 - 99 mg/dL 02/23/2025 6:24 AM EDT [facility] BUN 20 8 - 23 mg/dL 02/23/2025 6:24 AM EDT [facility] Creatinine 0.86 0.67 - 1.30 mg/dL 02/23/2025 6:24 AM EDT [facility] eGFR (CKD-EPIcr 2020) 84 >=60 mL/min/1.7 3 m2 02/23/2025 6:24 AM EDT [facility] Comment:Estimated GFR was ca lculated using the CKD-EPIcr (2020) equation refit without race. The equation is recommended by the [employer] Kid[employer] - [employer] [place] [employer] of Nephrology Task Force. Blood VENOUS BLOOD / Unknown Venipuncture / Unknown 02/23/2025 5:40 AM EDT 02/23/2025 6:00 AM EDT Berenice Dallas DO CHEMISTRY ORDERABLES Final Result Performing Organization Address City/[facility] Co de Phone Number [facility] [address] [place] [address] * (ABNORMAL) GLUCOSE METER POC (02/22/2025 9:02 PM EDT) [facility] Glucose Meter POC 334(H) 70 - 100 mg/dL 02/22/2025 9:03 PM EDT [facility] Sample Type Capillary 02/22/2025 9:03 PM EDT [facility] Patient Status Non-Critical Patient 02/22/2025 9:03 PM EDT [facility] Blood BLOOD SPECIMEN / Unknown 02/22/2025 9:02 PM EDT 02/22/2025 9:03 PM EDT Sameer Ortega MD POINT OF CARE TEST ORDERABLES Fi nal Result Performing Organization Address City/[facility]/ZIP Co de Phone Number [facility] [address] [place] [address] * (ABNORMAL) GLUCOSE METER POC (02/22/2025 5:04 PM EDT) Glucose Meter POC 228(H) 70 - 100 mg/dL 02/22/2025 5:05 PM EDT [facility] Sample Type Capillary 02/22/2025 5:05 PM EDT [facility] Patient Status Non-Critical Patient 02/22/2025 5:05 PM EDT [facility] Blood BLOOD SPECIMEN / Unknown 02/22/2025 5:04 PM EDT 02/22/2025 5:05 PM EDT us Sameer Ortega MD POINT OF CARE TEST ORDERABLES Fi nal Result Performing Organization Address [facility]/ZIP Co de Phone Number [facility] [address] [place] [address] * (ABNORMAL) GLUCOSE METER POC (02/22/2025 1:38 PM EDT) Glucose Meter POC 327(H) 70 - 100 mg/dL 02/22/2025 1:40 PM EDT [facility] Sample Type Capillary 02/22/2025 1:40 PM EDT [facility] Patient Status Non-Critical Patient 02/22/2025 1:40 PM EDT [facility] Blood BLOOD SPECIMEN / Unknown 02/22/2025 1:38 PM EDT 02/22/2025 1:40 PM EDT us Sameer Ortega MD POINT OF CARE TEST ORDERABLES Fi nal Result [facility] [address] [place] [address] * (ABNORMAL) HEMOGLOBIN A1C (02/22/2025 12:05 PM EDT) Hgb A1C 9.7(H) 4.2 - 5.6 % 02/22/2025 1:41 PM EDT [facility] [employer] Est. Avg Glucose 232 mg/dL 02/22/2025 1:41 PM EDT [facility] Blood VENOUS BLOOD / Unknown Venipuncture / Unknown 02/22/2025 12:05 PM EDT 02/22/2025 12:09 PM EDT Narrative [facility] - 02/22/2025 1:41 PM EDT REFERENCE RANGE: Normal: 4.0-5.6% Pre-diabetes: 5.7-6.4% Provisional diagnosis of diabetes: >6.4% Hgb F>10% and anything which shortens red cell survival, such as hemolytic anemia, or unstable hemoglobin variants such as HbSS, HbSC, or HbCC, will lower the HbA1c value associated with a given level of glycemic control. us Serafin Morejon MD CHEMISTRY ORDERABLES Marixa l Result [facility] [address] [facility] , [place] [address] * XR PELVIS (02/22/2025 11:20 AM EDT) [...] the ordering clinician. us Mason Jacome DO IMG DIAGNOSTIC IMAGING ORDERAB LES Final Result * (ABNORMAL) GLUCOSE METER POC (02/22/2025 10:48 AM EDT) Glucose Meter POC 342(H) 70 - 100 mg/dL 02/22/2025 10:51 AM EDT [facility] Sample Type Capillary 02/22/2025 10:51 AM EDT [facility] Patient Status Non-Critical Patient 02/22/2025 10:51 AM EDT [facility] Blood BLOOD SPECIMEN / Unknown 02/22/2025 10:48 AM EDT 02/22/2025 10:51 AM EDT Sameer Ortega MD POINT OF CARE TEST ORDERABLES Fi nal Result [facility] [address] [place] [address] * FUNGUS CULTURE (NO STAIN) (02/22/2025 9:05 AM EDT) Culture No growth of fungus at 4 weeks. 03/23/2025 10:21 AM EDT [facility] Tissue RIGHT HIP REGION STRUCTURE / Unknown 02/22/2025 9:05 AM EDT 02/22/2025 9:26 AM EDT us Mason Jacome DO MICROBIOLOGY - GENERAL ORDERAB LES Final Result [facility] [address] [place] [address] [address], [place] [address] * WOUND CULTURE (STAIN INCLUDED) (02/22/2025 9:05 AM EDT) Culture No growth at 94 hours. 02/26/2025 4:03 PM EDT [facility] Stain Few RBCs 02/26/2025 4:03 PM EDT [facility] Stain No WBCs seen 02/26/2025 4:03 PM EDT [facility] Stain No organisms seen 02/26/2025 4:03 PM EDT [facility] Tissue RIGHT HIP REGION STRUCTURE / Unknown 02/22/2025 9:05 AM EDT 02/22/2025 9:26 AM EDT Mason Jacome DO MICROBIOLOGY - GENERAL ORDERAB LES Final Result Performing Organization Address City/[facility]/ZIP Co de Phone Number [facility] [employer] [employer] [address] [facility] , [place] [address] * ANAEROBIC CULTURE (NO STAIN) (02/22/2025 9:05 AM EDT) Culture No anaerobic growth at 5 days. 02/27/2025 10:53 AM EDT [facility] [employer] [employer] Tissue RIGHT HIP REGION STRUCTURE / Unknown 02/22/2025 9:05 AM EDT 02/22/2025 9:26 AM EDT Mason Jacome DO MICROBIOLOGY - GENERAL ORDERAB LES Final Result Performing Organization Address [facility] Co de Phone Number [facility] [employer] [employer] [address] [facility] [place] [address] * FUNGUS CULTURE (NO STAIN) (02/22/2025 9:05 AM EDT) Culture No growth of fungus at 4 weeks. 03/23/2025 10:21 AM EDT [facility] [employer] [employer] Tissue RIGHT HIP REGION STRUCTURE / Unknown 02/22/2025 9:05 AM EDT 02/22/2025 9:27 AM EDT Mason Jacome DO MICROBIOLOGY - GENERAL ORDERAB LES Final Result Performing Organization Address City/[facility]/ZIP Co de Phone Number [facility] [employer] [employer] [address] [facility] , [place] [address] * WOUND CULTURE (STAIN INCLUDED) (02/22/2025 9:05 AM EDT) Culture No growth at 94 hours. 02/26/2025 1:55 PM EDT [facility] Stain Few RBCs 02/26/2025 1:55 PM EDT [facility] Stain No WBCs seen 02/26/2025 1:55 PM EDT [facility] Stain No organisms seen 02/26/2025 1:55 PM EDT [facility] Tissue RIGHT HIP REGION STRUCTURE / Unknown 02/22/2025 9:05 AM EDT 02/22/2025 9:26 AM EDT Mason Jacome DO MICROBIOLOGY - GENERAL ORDERAB LES Final Result Performing Organization Address [facility] Co de Phone Number [facility] [employer], [facility] [address] [facility] , [place] [address] * ANAEROBIC CULTURE (NO STAIN) (02/22/2025 9:05 AM EDT) Culture No anaerobic growth at 5 days. 02/27/2025 10:53 AM EDT [facility] [employer] [employer] Tissue RIGHT HIP REGION STRUCTURE / Unknown 02/22/2025 9:05 AM EDT 02/22/2025 9:26 AM EDT Mason Jacome DO MICROBIOLOGY - GENERAL ORDERAB LES Final Result [facility] [employer], [facility] [address] [facility] , [place] [address] * FUNGUS CULTURE (NO STAIN) (02/22/2025 9:03 AM EDT) Culture No growth of fungus at 4 weeks. 03/23/2025 10:21 AM EDT [facility] [employer] [employer] Tissue RIGHT HIP REGION STRUCTURE / Unknown 02/22/2025 9:03 AM EDT 02/22/2025 9:26 AM EDT [facility] MICROBIOLOGY - GENERAL ORDERAB LES Final Result Performing Organization Address City/[facility]/ZIP Co de Phone Number [facility] [employer] [address] [facility] , [place] [address] * WOUND CULTURE (STAIN INCLUDED) (02/22/2025 9:03 AM EDT) Culture No growth at 94 hours. 02/26/2025 4:03 PM EDT [facility] Stain Moderate RBCs 02/26/2025 4:03 PM EDT [facility] Stain Rare WBCs 02/26/2025 4:03 PM EDT [facility] Stain No organisms seen 02/26/2025 4:03 PM EDT [facility] Tissue RIGHT HIP REGION STRUCTURE / Unknown 02/22/2025 9:03 AM EDT 02/22/2025 9:26 AM EDT Mason Jacome DO MICROBIOLOGY - GENERAL ORDERAB LES Final Result Performing Organization Address [facility] Co de Phone Number [facility] [employer] [employer] [address] [facility] , [place] [address] * ANAEROBIC CULTURE (NO STAIN) (02/22/2025 9:03 AM EDT) Culture No anaerobic growth at 5 days. 02/27/2025 10:53 AM EDT [facility] [employer] [employer] Tissue RIGHT HIP REGION STRUCTURE / Unknown 02/22/2025 9:03 AM EDT 02/22/2025 9:26 AM EDT Mason Jacome MICROBIOLOGY - GENERAL ORDERAB LES Final Result Performing Organization Address City/[facility]/ZIP Co de Phone Number [facility] [employer], [facility] [address] [facility] , [place] [address] * (ABNORMAL) GLUCOSE METER POC (02/22/2025 7:58 AM EDT) Glucose Meter POC 300(H) 70 - 100 mg/dL 02/22/2025 8:00 AM EDT [facility] Sample Type Capillary 02/22/2025 8:00 AM EDT [facility] Patient Status Non-Critical Patient 02/22/2025 8:00 AM EDT [facility] Blood BLOOD SPECIMEN / Unknown 02/22/2025 7:58 AM EDT 02/22/2025 8:00 AM EDT Sameer Ortega MD POINT OF CARE TEST ORDERABLES Fi nal Result [facility] [address] [facility] [place] [address] * EK EKG 12 LEAD (02/22/2025 7:55 AM EDT) Anatomical Region Laterality Modality Electrocardiogra phy 02/22/2025 8:09 AM EDT Impressions 02/22/2025 3:21 PM EDT [place] Test Date: 2025-02-22 Pat Name: STEVE KING Department: DEPID Room: 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Tac[place] : 1935 Requested By: SERAFIN STRAUSS Order Number: [id number] Reading : Danny Yi Measurements Intervals [place] Rate: 77 P: 71 [place]: 275 QRS: -32 QRSD: 155 T: 121 QT: 435 QTc: 492 Interpretive Statements SINUS RHYTHM WITH FIRST DEGREE AV BLOCK AND PREMATURE VENTRICULAR COMPLEXES LEFT AXIS DEVIATION LEFT BUNDLE BRANCH BLOCK Electronically Signed On 02-22-2025 15:21:34 EDT by Danny Yi Narrative Procedure Note Danny Yi MD - 02/22/[address] [place] Test Date: 2025-02-22 Pat Name: STEVE KING Department: DEPID Room: 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[place] : 1935 Requested By: SERAFIN STRAUSS Order Number: [id number] Reading MD: Danny Yi Measurements Intervals [place] Rate: 77 P: 71 [place]: 275 QRS: -32 QRSD: 155 T: 121 [...] 6:19 AM EDT 02/22/2025 6:57 AM EDT us Sameer Ortega MD CHEMISTRY ORDERABLES Final Resul t Performing Organization Address [facility] de Phone Number [facility] [address] [place] [address] * EXTRA LAVENDER (02/22/2025 6:19 AM EDT) Blood VENOUS BLOOD / Unknown Venipuncture / Unknown 02/22/2025 6:19 AM EDT 02/22/2025 6:56 AM EDT us Sameer Ortega MD HEMATOLOGY ORDERABLES Final Resu lt Performing Organization Address [facility] de Phone Number [facility] [address] [place] [address] * BB HISTORY CHECK (02/22/2025 6:19 AM EDT) BB HISTORY CHECK (1) No Previous History 02/22/2025 7:10 AM EDT [facility] Blood VENOUS BLOOD / Unknown Venipuncture / Unknown 02/22/2025 6:19 AM EDT 02/22/2025 6:55 AM EDT us Mason Jacome DO BLOOD BANK ORDERABLES Final Re sult Performing Organization Address City/[facility] Co de Phone Number [facility] [address] [place] [address] * ANTIBODY SCREEN IGG (02/22/2025 6:19 AM EDT) ABSC IgG Int Negative 02/22/2025 8:01 AM EDT [facility] Blood VENOUS BLOOD / Unknown Venipuncture / Unknown 02/22/2025 6:19 AM EDT 02/22/2025 6:55 AM EDT [facility] BLOOD BANK ORDERABLES Final Re sult [facility] [address] [place] [address] * ABORH (02/22/2025 6:19 AM EDT) Pathologist [facility] ABORH Int O POS 02/22/2025 8:0 1 AM EDT [facility] Blood VENOUS BLOOD / Unknown Venipuncture / Unknown 02/22/2025 6:19 AM EDT 02/22/2025 6:55 AM EDT [facility] Final Re sult Performing Organization Address City/[facility]/ZIP Co de Phone Number [facility] [address] [place] [address] * VANCOMYCIN LEVEL AUC2 (02/21/2025 12:12 PM EDT) Pathologist [facility] Vancomycin AUC2 15.5 mcg/mL 12:44 PM EDT [facility] Blood VENOUS BLOOD / Unknown Venipuncture / Unknown 02/21/2025 12:12 PM EDT 02/21/2025 12:21 PM EDT Berenice Dallas DO CHEMISTRY ORDERABLES Final Result [facility] [address] [place] [address] * VANCOMYCIN LEVEL AUC1 (02/21/2025 6:02 AM EDT) Pathologist [facility] Vancomycin AUC1 23.9 mcg/mL 6:28 AM EDT [facility] Blood VENOUS BLOOD / Unknown Venipuncture / Unknown 02/21/2025 6:02 AM EDT 02/21/2025 6:04 AM EDT Berenice Dallas DO CHEMISTRY ORDERABLES Final Result [facility] [address] [place] [id number] * (ABNORMAL) BASIC METABOLIC PANEL (02/21/2025 6:02 AM EDT) [facility] Sodium 134(L) 136 - 145 mmol/L 02/21/2025 6:28 AM EDT [facility] Potassium 4.2 3.5 - 5.0 mmol/L 02/21/2025 6:28 AM EDT [facility] Chloride 100 98 - 107 mmol/L 02/21/2025 6:28 AM EDT [facility] Total CO2 23 22 - 29 mmol/L 02/21/2025 6:28 AM EDT [facility] Anion Gap 11 7 - 16 mmol/L 02/21/2025 6:28 AM EDT [facility] Calcium 8.6(L) 8.8 - 10.4 mg/dL 02/21/2025 6:28 AM EDT [facility] Glucose Lvl 317(H) 70 - 99 mg/dL 02/21/2025 6:28 AM EDT [facility] BUN 25(H) 8 - 23 mg/dL 02/21/2025 6:28 AM EDT [facility] Creatinine 0.86 0.67 - 1.30 mg/dL 02/21/2025 6:28 AM EDT [facility] eGFR (CKD-EPIcr 2020) 84 >=60 mL/min/1.7 3 m2 02/21/2025 6:28 AM EDT [facility] Comment:Estimated GFR was ca lculated using the CKD-EPIcr (2020) equation refit without race. The equation is recommended by the National Kid[employer] - Citizen [place] Society of Nephrology Task Force. Blood VENOUS BLOOD / Unknown Venipuncture / Unknown 02/21/2025 6:02 AM EDT 02/21/2025 6:04 AM EDT Berenice Dallas DO CHEMISTRY ORDERABLES Final Result [facility] [address] [place] [address] * (ABNORMAL) CBC (02/21/2025 6:02 AM EDT) WBC 5.6 3.7 - 10.3 x10(3)/mcL 02/21/2025 6:09 AM EDT [facility] RBC 3.57(L) 4.60 - 6.10 x10(6)/mcL 02/21/2025 6:09 AM EDT [facility] Hgb 11.1(L) 13.7 - 17.5 g/dL 02/21/2025 6:09 AM EDT [facility] Hct 33.8(L) 40.0 - 51.0 % 02/21/2025 6:09 AM EDT [facility] MCV 94.7 80.0 - 100.0 fL 02/21/2025 6:09 AM EDT [facility] MCH 31.1 26.0 - 34.0 pg 02/21/2025 6:09 AM EDT [facility] MCHC 32.8 30.7 - 35.5 g/dL 02/21/2025 6:09 AM EDT [facility] RDW 13.7 <=14.9 % 02/21/2025 6:09 AM EDT [facility] Platelet 209 155 - 369 x10(3)/mcL 02/21/2025 6:09 AM EDT [facility] MPV 10.0 8.8 - 12.5 fL 02/21/2025 6:09 AM EDT [facility] Blood VENOUS BLOOD / Unknown Venipuncture / Unknown 02/21/2025 6:02 AM EDT 02/21/2025 6:04 AM EDT Berenice Dallas DO HEMATOLOGY ORDERABLE S Final Result Performing Organization Address City/[facility]/ZIP Co de Phone Number [facility] [address] [place] [address] * (ABNORMAL) GLUCOSE METER POC (02/20/2025 12:14 PM EDT) Glucose Meter POC 303(H) 70 - 100 mg/dL 02/20/2025 12:16 PM EDT [facility] Sample Type Capillary 02/20/2025 12:16 PM EDT [facility] Patient Status Non-Critical Patient 02/20/2025 12:16 PM EDT [facility] Blood BLOOD SPECIMEN / Unknown 02/20/2025 12:14 PM EDT 02/20/2025 12:16 PM EDT Sameer Ortega MD POINT OF CARE TEST ORDERABLES Fi nal Result [facility] [address] [place] [address] * (ABNORMAL) BASIC METABOLIC PANEL (02/20/2025 6:24 AM EDT) Sodium 133(L) 136 - 145 mmol/L 02/20/2025 7:17 AM EDT [facility] Potassium 4.2 3.5 - 5.0 mmol/L 02/20/2025 7:17 AM EDT [facility] Chloride 99 98 - 107 mmol/L 02/20/2025 7:17 AM EDT [facility] Total CO2 24 22 - 29 mmol/L 02/20/2025 7:17 AM EDT [facility] Anion Gap 10 7 - 16 mmol/L 02/20/2025 7:17 AM EDT [facility] Calcium 8.6(L) 8.8 - 10.4 mg/dL 02/20/2025 7:17 AM EDT [facility] Glucose Lvl 290(H) 70 - 99 mg/dL 02/20/2025 7:17 AM EDT [facility] BUN 29(H) 8 - 23 mg/dL 02/20/2025 7:17 AM EDT [facility] Creatinine 0.92 0.67 - 1.30 mg/dL 02/20/2025 7:17 AM EDT [facility] eGFR (CKD-EPIcr 2020) 81 >=60 mL/min/1.7 3 m2 02/20/2025 7:17 AM EDT [facility] Comment:Estimated GFR was ca lculated using the CKD-EPIcr (2020) equation refit without race. The equation is recommended by the National Kid[employer] - [place] Society of Nephrology Task Force. Blood VENOUS BLOOD / Unknown Venipuncture / Unknown 02/20/2025 6:24 AM EDT 02/20/2025 6:53 AM EDT Berenice Dallas DO CHEMISTRY ORDERABLES Final Result [facility] [address] [place] [phone] * (ABNORMAL) CBC (02/20/2025 6:24 AM EDT) WBC 8.5 3.7 - 10.3 x10(3)/mcL 02/20/2025 6:58 AM EDT [facility] RBC 3.52(L) 4.60 - 6.10 x10(6)/mcL 02/20/2025 6:58 AM EDT [facility] Hgb 11.0(L) 13.7 - 17.5 g/dL 02/20/2025 6:58 AM EDT [facility] Hct 33.2(L) 40.0 - 51.0 % 02/20/2025 6:58 AM EDT [facility] MCV 94.3 80.0 - 100.0 fL 02/20/2025 6:58 AM EDT [facility] MCH 31.3 26.0 - 34.0 pg 02/20/2025 6:58 AM EDT [facility] MCHC 33.1 30.7 - 35.5 g/dL 02/20/2025 6:58 AM EDT [facility] RDW 14.2 <=14.9 % 02/20/2025 6:58 AM EDT [facility] Platelet 217 155 - 369 x10(3)/mcL 02/20/2025 6:58 AM EDT [facility] MPV 10.0 8.8 - 12.5 fL 02/20/2025 6:58 AM EDT [facility] Blood VENOUS BLOOD / Unknown Venipuncture / Unknown 02/20/2025 6:24 AM EDT 02/20/2025 6:53 AM EDT us Berenice Venegasbernie DO HEMATOLOGY ORDERABLE S Final Result Performing Organization Address City/State/[facility] Co de Phone Number [facility] [address] [place] [address] * US GUIDED NEEDLE PLACEMENT-FNA (02/19/2025 1:21 [...] IMPRESSION: Ultrasound-guided aspiration right hip joint/bursal effusion. us Amanda Jones PA-C IMG US ORDERABLES Final R esult * (ABNORMAL) JOINT FLUID DIFFERENTIAL (02/19/2025 12:43 PM EDT) Segs JF 84(H) <25 % 02/19/2025 4:46 PM EDT [facility] Lymphs JF 6 % 02/19/2025 4:46 PM EDT [facility] Macrophages JF 10 % 02/19/2025 4:46 PM EDT [facility] Body Fluid RIGHT HIP REGION STRUCTURE / Unknown 02/19/2025 12:43 PM EDT 02/19/2025 3:21 PM EDT Mason Jacome DO BODY FLUIDS AND STOOLS ORDERAB LES Final Result [facility] [address] [place] [address] * JOINT FLUID CRYSTALS (02/19/2025 12:43 PM EDT) Crystal JF None Seen None Seen 02/19/2025 4:37 PM EDT [facility] [employer] Body Fluid RIGHT HIP REGION STRUCTURE / Unknown 02/19/2025 12:43 PM EDT 02/19/2025 3:21 PM EDT Mason Jacome BODY FLUIDS AND STOOLS ORDERAB LES Final Result Performing Organization Address [facility] Co de Phone Number [facility] [address] [facility] , [place] [address] * (ABNORMAL) PROTEIN JOINT FLUID (02/19/2025 12:43 PM EDT) Protein JF 5.0(L) 6.4 - 8.3 gm/dL 02/19/2025 4:35 PM EDT [facility] [employer] [facility] Body Fluid RIGHT HIP REGION STRUCTURE / Unknown 02/19/2025 12:43 PM EDT 02/19/2025 3:21 PM EDT Narrative PREFERRED [employer] [facility] - 02/19/2025 4:35 PM EDT A reference interval for this test has not been established for body fluid specimens. The reference range listed reflects normal concentration of this analyte in blood. [facility] BODY FLUIDS AND STOOLS ORDERAB LES Final Result Performing Organization Address [facility] Co de Phone Number [facility] [employer] [facility] [address] [facility] , [place] [address] * (ABNORMAL) GLUCOSE JOINT FLUID (02/19/2025 12:43 PM EDT) Glucose JF 216(H) 74 - 100 mg/dL 02/19/2025 4:39 PM EDT [facility]ED [facility] Body Fluid RIGHT HIP REGION STRUCTURE / Unknown 02/19/2025 12:43 PM EDT 02/19/2025 3:21 PM EDT Narrative PREFERRED [employer], [facility] - 02/19/2025 4:39 PM EDT A reference interval for this test has not been established for body fluid specimens. The reference range listed reflects normal concentration of this analyte in blood. Mason Jacome DO BODY FLUIDS AND STOOLS ORDERAB LES Final Result Performing Organization Address City/[facility]/ZIP Co de Phone Number [facility] [address] [facility] , [address] [place] [phone] * PJI DETECTION (SYNOVASURE)-REF LAB (02/19/2025 12:43 PM EDT) MISC COMMENT See Scanned Image 03/05/2025 8:56 AM EDT [facility] Body Fluid SYNOVIAL MEMBRANE / Unknown 02/19/2025 12:43 PM EDT 02/19/2025 3:21 PM EDT Narrative EXTERNAL LAB - 03/05/2025 8:56 AM EDT [phone] Mason Jacome DO IMMUNOLOGY ORDERABLES Final Re sult Performing Organization Address City/[facility]/ZIP Co de Phone Number EXTERNAL LAB See Scanned Report [facility] [address] [place] [address] * (ABNORMAL) JOINT FLUID CELL COUNT (02/19/2025 12:43 PM EDT) Pathologist [facility] Color JF Abbey(A) Yellow, Straw 02/19/2025 4:43 PM EDT [facility] Appear JF Turbid(A) Clear, Slightly Hazy, Hazy 02/19/2025 4:43 PM EDT [facility] RBC JF 294 /mcL 02/19/2025 4:43 PM EDT [facility] Total Nucleated Cells JF 56,894(H) <=150 /mcL 02/19/2025 4:43 PM EDT [facility] Body Fluid RIGHT HIP REGION STRUCTURE / Unknown 02/19/2025 12:43 PM EDT 02/19/2025 3:21 PM EDT Mason Jacome DO BODY FLUIDS AND STOOLS ORDERAB LES Final Result Performing Organization Address City/[facility]/ZIP Co de Phone Number [facility] [address] [facility] [address] [place] [address] * FUNGUS STAIN (STAIN ONLY) (02/19/2025 12:43 PM EDT) Fungal Stain No yeast or fungal elements seen. No yeast or fungal elements seen. 02/20/2025 3:41 PM EDT [facility] [employer], [employer] RIGHT HIP REGION STRUCTURE / Unknown 02/19/2025 12:43 PM EDT 02/19/2025 1:01 PM EDT [facility] MICROBIOLOGY - GENERAL ORDERAB LES Final Result Performing Organization Address City/[facility]/ZIP Co de Phone Number [facility] [employer], [facility] [address] [facility] , [place] [address] * ANAEROBIC CULTURE (NO STAIN) (02/19/2025 12:43 PM EDT) Culture No anaerobic growth at 5 days. 02/24/2025 7:41 AM EDT [facility] [employer], [employer] RIGHT HIP REGION STRUCTURE / Unknown 02/19/2025 12:43 PM EDT 02/19/2025 1:01 PM EDT [facility] MICROBIOLOGY - GENERAL ORDERAB LES Final Result Performing Organization Address City/[facility] Co de Phone Number [facility], [facility] [address] [facility] , [place] [address] * (ABNORMAL) WOUND CULTURE (STAIN INCLUDED) (02/19/2025 12:43 PM EDT) Culture Positive Growth(A) 02/23/2025 2:53 PM EDT [facility] [employer] Culture Moderate growth of Staphylococcus aureus SUSCEPTIB ILITY RESULT 02/23/2025 2:53 PM EDT [facility] [employer] Comment:PBP2a: a rapid assay that aids in identifying MRSA by detecting the protein that confers resistance to methicillin. A negative result does not exclude methicillin resistance due to other mechanisms. PBP2a test Negative 02/23/2025 2:53 PM EDT [facility] [employer] Stain Moderate WBCs 02/23/2025 2:53 PM EDT [facility] [employer] Stain No organisms seen 025 2:53 PM EDT [facility] [employer] H[employer] STRUCTURE / Unknown [...] MICROBIOLOGY - GENERAL ORDERAB LES Final Result [facility] [address], [address] [place], [place] [id number] * PT / INR (02/19/2025 9:01 AM EDT) PT 13.2 10.5 - 13.6 second(s) 02/19/2025 9:15 AM EDT [facility] INR 1.14 0.91 - 1.18 (ratio) 02/19/2025 9:15 AM EDT [facility] Comment: Level of Therapy Indications Target INR Range Standard Dose Treatment and prophylaxis of venous 2.0 - 3.0 thrombosis, pulmonary embolism High Dose High risk patients with mechanical 2.5 - 3.5 heart valves Blood VENOUS BLOOD / Unknown Venipuncture / Unknown 02/19/2025 9:01 AM EDT 02/19/2025 9:05 AM EDT us Amanda Jones PA-C HEMATOLOGY ORDERABLES Fin al Result [facility] [address] [place], [place] [id number] * (ABNORMAL) BASIC METABOLIC PANEL (02/19/2025 7:01 AM EDT) Sodium 133(L) 136 - 145 mmol/L 02/19/2025 7:58 AM EDT [facility] Potassium 4.6 3.5 - 5.0 mmol/L 02/19/2025 7:58 AM EDT [facility] Chloride 97(L) 98 - 107 mmol/L 02/19/2025 7:58 AM EDT [facility] Total CO2 23 22 - 29 mmol/L 02/19/2025 7:58 AM EDT [facility] Anion Gap 13 7 - 16 mmol/L 02/19/2025 7:58 AM EDT [facility] Calcium 8.9 8.8 - 10.4 mg/dL 02/19/2025 7:58 AM EDT [facility] Glucose Lvl 273(H) 70 - 99 mg/dL 02/19/2025 7:58 AM EDT [facility] BUN 31(H) 8 - 23 mg/dL 02/19/2025 7:58 AM EDT [facility] Creatinine 0.98 0.67 - 1.30 mg/dL 02/19/2025 7:58 AM EDT [facility] eGFR (CKD-EPIcr 2020) 75 >=60 mL/min/1.7 3 m2 02/19/2025 7:58 AM EDT [facility] Comment:Estimated GFR was ca lculated using the CKD-EPIcr (2020) equation refit without race. The equation is recommended by the National Kid[employer] - [place] [employer] of Nephrology Task Force. Blood VENOUS BLOOD / Unknown Venipuncture / Unknown 02/19/2025 7:01 AM EDT 02/19/2025 7:37 AM EDT Berenice Dallas DO CHEMISTRY ORDERABLES Final Result [facility] [address], [place] [id number] * (ABNORMAL) CBC (02/19/2025 7:01 AM EDT) WBC 11.6(H) 3.7 - 10.3 x10(3)/mcL 02/19/2025 7:40 AM EDT [facility] RBC 3.97(L) 4.60 - 6.10 x10(6)/mcL 02/19/2025 7:40 AM EDT [facility] Hgb 12.4(L) 13.7 - 17.5 g/dL 02/19/2025 7:40 AM EDT [facility] Hct 37.9(L) 40.0 - 51.0 % 02/19/2025 7:40 AM EDT [facility] MCV 95.5 80.0 - 100.0 fL 02/19/2025 7:40 AM EDT [facility] MCH 31.2 26.0 - 34.0 pg 02/19/2025 7:40 AM EDT [facility] MCHC 32.7 30.7 - 35.5 g/dL 02/19/2025 7:40 AM EDT [facility] RDW 14.1 <=14.9 % 02/19/2025 7:40 AM EDT [facility] Platelet 237 155 - 369 x10(3)/mcL 02/19/2025 7:40 AM EDT [facility] MPV 9.9 8.8 - 12.5 fL 02/19/2025 7:40 AM EDT [facility] Blood VENOUS BLOOD / Unknown Venipuncture / Unknown 02/19/2025 7:01 AM EDT 02/19/2025 7:37 AM EDT Chancy Dallas DO HEMATOLOGY ORDERABLE S Final Result [facility] [address] [place] [address] * MRI HIP RIGHT W WO CONTRAST [...] hip osteoarthritic changes. 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 No pelvic fracture. No [...] left hiposteoarthritic changes. Moderate pubic symphysis in yedr-mj-pcgqwqzb bilateralsacroiliac osteoarthritis. No pelvic fracture. No marrow [...] contactthe office of the ordering clinician. . Berenice Dallas DO IMG MRI ORDERABLES F [...] please contactthe office of the ordering clinician. Forrestrichicy Dallas DO G DIAGNOSTIC IMAGI NG ORDERABLES Final Result * [...] of the ordering clinician. Mason Jacome DO [facility] [place] ORDERAB LES Final Result * [...] of the ordering clinician. Mason Jacome DO [facility] [place] ORDERAB LES Final Result * CHROMIUM - REF LAB (02/16/2025 10:49 AM EDT) Pathologist [facility] Chromium <1.0 <=5.0 ug/L 02/17/2025 7:34 PM EDT [facility] [employer] Comment: INTERPRETIVE INFORMATION: Chromium, Serum Elevated results may be due to skin or collection-related contamination, including the use of a noncertified metal-free collection/transport tube. If contamination concerns exist due to elevated levels of serum chromium, confirmation with a second specimen collected in a certified metal-free tube is recommended. Serum chromium levels can be significantly higher in patients with okuqg-wb-wnyxl total hip replacement implants than in control patients without metal implants. Serum chromium levels may be increased in asymptomatic patients with eweey-sh-rbplu prosthetics and should be considered in the context of the overall clinical scenario. Whole blood is the specimen type recommended by the U.S. Food and Drug Administration for assessing the risks of kcmur-mv-ucjlt hip implants in symptomatic patients. Symptoms associated with chromium toxicity vary based on route of exposure and dose, and may include dermatitis, impairment of pulmonary function, gastroenteritis, hepatic necrosis, bleeding, and acute tubular necrosis. This test was developed and its performance characteristics determined by [facility]. It has not been cleared or approved by the [place] Food and Drug Administration. This test was performed in a CLIA certified laboratory and is intended for clinical purposes. Performed By: [facility] [address] [place] [id number] [address] Guard: Orestes Felipe MD, PhD CLIA Number: [id number] Blood VENOUS BLOOD / Unknown Venipuncture / Unknown 02/16/2025 10:49 AM EDT 02/16/2025 11:09 AM EDT [facility] CHEMISTRY ORDERABLES Final Res ult [facility] [address] [id number] * [place]BALT - REF LAB (02/16/2025 10:49 AM EDT) Gary <1.0 <=1.0 ug/L 02/17/2025 7:34 PM EDT [facility] Comment: INTERPRETIVE INFORMATION: Gary, Serum or Plasma Elevated results may be [...] can be significantly higher in patients with qbdak-rb-utszd total hip replacement implants than in control patients without metal implants. Serum cobalt levels may be increased in asymptomatic patients with hlilr-rp-ubeuo prosthetics and should be considered in the context of the overall clinical scenario. Whole blood is the specimen type recommended by the U.S. Food and Drug Administration for assessing the risks of ntwpc-mw-bacjg hip implants in symptomatic patients. This test was developed and its performance characteristics determined by [facility]. It has not been cleared or approved by the US Food and Drug Administration. This test was performed in a CLIA certified laboratory and is intended for clinical purposes. Performed By: [facility] [address] [place] [address] [employer] Guard: Orestes Felipe MD, PhD CLIA Number: [id number] Blood VENOUS BLOOD / Unknown Venipuncture / Unknown 02/16/2025 10:49 AM EDT 02/16/2025 11:09 AM EDT Mason Jacome DO CHEMISTRY ORDERABLES Final Res ult Performing Organization Address City/[facility]/ZIP Co de Phone Number [facility] [address] [place] [address] * THYROID STIMULATING HORMONE (02/16/2025 10:49 AM EDT) TSH 1.940 0.270 - 4.200 mcIU/mL 02/16/2025 5:39 PM EDT [facility] Blood VENOUS BLOOD / Unknown Venipuncture / Unknown 02/16/2025 10:49 AM EDT 02/16/2025 11:09 AM EDT Narrative [facility] - 02/16/2025 5:39 PM EDT Ingestion of johny doses of biotin (>5 mg/day) taken within 8 hours of drawing blood sample can interfere with this immunoassay test. Sameer Ortega MD CHEMISTRY ORDERABLES Final Resul t Performing Organization Address [facility] de Phone Number [facility] [address] [place] [address] , [place] [address] * (ABNORMAL) C-REACTIVE PROTEIN (02/16/2025 10:49 AM EDT) CRP 30.18(H) <=5.00 mg/L 02/16/2025 5:39 PM EDT [facility] Blood VENOUS BLOOD / Unknown Venipuncture / Unknown 02/16/2025 10:49 AM EDT 02/16/2025 11:09 AM EDT Sameer Ortega MD CHEMISTRY ORDERABLES Final Resul t Performing Organization Address City/[facility]/ZIP Co de Phone Number [facility] [address] [place] [address] , [place] [address] * (ABNORMAL) SEDIMENTATION RATE AUTOMATED (02/16/2025 10:49 AM EDT) [facility] Sed Rate 67(H) 0 - 20 mm/hr 02/16/2025 11:15 AM EDT [facility] Blood VENOUS BLOOD / Unknown Venipuncture / Unknown 02/16/2025 10:49 AM EDT 02/16/2025 11:09 AM EDT Sameer Ortega MD HEMATOLOGY ORDERABLES Final Resu lt Performing Organization Address City/[facility]/ZIP Co de Phone Number [facility] [address] [place] [address] * ECG AND WAVEFORMS - TELEMETRY (02/16/2025 7:55 AM EDT) [facility] ECG INTERPRET First Degree Sinus Rhythm [facility] 02/16/2025 7:55 AM EDT Narrative [facility] - 02/16/2025 9:04 AM EDT 1ST DEG [id number] [place] 0.27 QRS 0.16 QT 0.46 See Clinical Report link for waveform capture us Unknown Provider POINT OF CARE CARDIOLOGY Final Result Performing Organization Address [facility]/ZIP Co de Phone Number [facility] [address] [place] [address] * (ABNORMAL) BASIC METABOLIC PANEL (02/16/2025 3:58 AM EDT) [facility] Sodium 133(L) 136 - 145 mmol/L 02/16/2025 4:49 AM EDT [facility] Potassium 5.1(H) 3.5 - 5.0 mmol/L 02/16/2025 4:49 AM EDT [facility] Comment:Hemolysis detected b y analyzer. Hemolysis at this level may increase the potassium concentration > 0.1 mmol/L. Recommend recollection if clinically indicated. Chloride 96(L) 98 - 107 mmol/L 02/16/2025 4:49 AM EDT [facility] Total CO2 22 22 - 29 mmol/L 02/16/2025 4:49 AM EDT [facility] Anion Gap 15 7 - 16 mmol/L 02/16/2025 4:49 AM EDT [facility] Calcium 9.2 8.8 - 10.4 mg/dL 02/16/2025 4:49 AM EDT [facility] Glucose Lvl 211(H) 70 - 99 mg/dL 02/16/2025 4:49 AM EDT [facility] BUN 52(H) 8 - 23 mg/dL 02/16/2025 4:49 AM EDT [facility] Creatinine 1.08 0.67 - 1.30 mg/dL 02/16/2025 4:49 AM EDT [facility] eGFR (CKD-EPIcr 2020) 66 >=60 mL/min/1. 73 m2 02/16/2025 4:49 AM EDT [facility] Comment:Estimated GFR was ca lculated using the CKD-EPIcr (2020) equation refit without race. The equation is recommended by the National Kidney Foundation - [place] Society of Nephrology Task Force. Blood VENOUS BLOOD / Unknown Venipuncture / Unknown 02/16/2025 3:58 AM EDT 02/16/2025 4:27 AM EDT us Litzy Sepulveda AIR QUALITY TECHNICIAN CHEMISTRY ORDERABLES Final Re sult [facility] [address] [place] [address] * (ABNORMAL) CBC (02/16/2025 3:58 AM EDT) WBC 7.5 3.7 - 10.3 x10(3)/mcL 02/16/2025 4:31 AM EDT [facility] RBC 4.04(L) 4.60 - 6.10 x10(6)/mcL 02/16/2025 4:31 AM EDT [facility] Hgb 12.7(L) 13.7 - 17.5 g/dL 02/16/2025 4:31 AM EDT [facility] Hct 39.4(L) 40.0 - 51.0 % 02/16/2025 4:31 AM EDT [facility] MCV 97.5 80.0 - 100.0 fL 02/16/2025 4:31 AM EDT [facility] MCH 31.4 26.0 - 34.0 pg 02/16/2025 4:31 AM EDT [facility] MCHC 32.2 30.7 - 35.5 g/dL 02/16/2025 4:31 AM EDT [facility] RDW 13.8 <=14.9 % 02/16/2025 4:31 AM EDT [facility] Platelet 261 155 - 369 x10(3)/mcL 02/16/2025 4:31 AM EDT [facility] MPV 9.6 8.8 - 12.5 fL 02/16/2025 4:31 AM EDT [facility] Blood VENOUS BLOOD / Unknown Venipuncture / Unknown 02/16/2025 3:58 AM EDT 02/16/2025 4:26 AM EDT us Litzy Sepulveda AIR QUALITY TECHNICIAN HEMATOLOGY ORDERABLES Final R esult [facility] [address] [place] [address] * ECG AND WAVEFORMS - TELEMETRY (02/16/2025 1:00 AM EDT) ECG INTERPRET First Degree Sinus Rhythm [facility] 02/16/2025 1:00 AM EDT Narrative [facility] - 02/16/2025 3:44 AM EDT Admission/1st AVB/IVCD/PVC/qj [place] 0.27 QRS 0.15 RR 0.86 QT 0.45 QTc 0.48 See Clinical Report link for waveform capture us Unknown Provider POINT OF CARE CARDIOLOGY Final Result [facility] [address] [place] [address] documented in this encounter Visit Diagnoses Diagnosis [...] and other lower urinary tract symptoms (LUTS) Right hip joint effusion Effusion of pelvic joint documented in this encounter Admitting Diagnoses Diagnosis Right hip pain Pain in joint, pelvic region and thigh documented in this encounter Administered Medications Inactive Administered Medications - up to 1 most recent administrations Medication Order MAR Action Action Date Dose Rate Site acetaminophen (TYLENOL) tablet 650 mg 650 mg, Oral, EVERY 4 HOURS PRN, Starting on 02/18/25 at 1241, Until 03/08/25 at 1814, Pain, [...] AM EDT 10 mg apixaban (ELIQUIS) tablet 5 mg 5 [...] Given 03/08/2025 10:02 AM EDT 40 mg bisacodyL (DULCOLAX) EC tablet 10 mg 10 [...] AM EDT 1 Tablet ceFAZolin (ANCEF) IVPB 2 g 2 g, Intravenous, EVERY 8 HOURS SCHEDULED (3 times per day), 96 doses, First dose (after last modification) on Vianey 03/05/25 at 1400, Last dose on Sun04/06/25 at 0600, Administer over 30 Minutes, Reason for Therapy: Infection Documented, Indication: Bacteremia IV Started 03/08/2025 1:22 PM EDT 2 g 200 mL/hr dextrose 50 % solution 25 mL [...] Given 03/02/2025 12:39 PM EDT 25 mL docusate sodium (COLACE) capsule 100 mg 100 [...] Given 03/08/2025 10:02 AM EDT 60 mg glucagon (GLUCAGEN) injection 1 mg 1 mg, Intramuscular, PRN, Starting on Sun02/22/25 at 1214, Until Sun03/08/25 at 1814, Low blood sugar, If FSBS less than 70 mg/dl, patient cannot take orally and without IV access, If patient is without IV access, give Glucagon 1 mg Intramuscularly, insert IV and call physician. insulin aspart U-100 (NovoLOG) injection 1-15 Units [...] Code = [employer] Given 03/08/2025 8:00 AM EDT 3 Units Abdominal Tissue insulin glargine U-100 (LANTUS) injection 8 Units 8 Units, Subcutaneous, 2 TIMES DAILY (INSULIN), First dose (after last modification) on 03/02/25 at 0900, Until Discontinued, A blood sugar is not required prior to administering the Lantus dose. Assess the trend of blood sugars within the last 24 hours. If 2 out of 3 blood sugars are less than (<) 120, contact pharmacy to decrease the total Lantus dose by 20%. Waste Sort Code = [facility] Given 03/08/2025 6:52 AM EDT 8 Units Abdominal Tissue ketorolac (ACULAR) 0.5 % ophthalmic solution 1 Drop 1 Drop, Right Eye, 4 TIMES DAILY, First dose on Sun03/06/25 at 1830, Until Discontinued Given 03/08/2025 9:00 AM EDT 1 Drop Right Eye melatonin tablet 5-10 mg 5-10 mg, Oral, NIGHTLY PRN, Starting on Vianey 02/26/25 at 0102, Until Sun03/08/25 at 1814, Sleep Given 03/07/2025 9:55 PM EDT 5 mg miconazole (MICATIN) 2 % powder Topical, 2 TIMES DAILY, 84 doses, First dose on 03/01/25 at 2100, Last dose on Sun04/12/25 at 0900, Application site: [place]ela area Given 03/08/2025 9:00 AM EDT midodrine (PROAMATINE) tablet 7.5 mg 7.5 mg, Oral, 3 TIMES DAILY WITH MEALS, First dose (after last modification) on 03/01/25 at 1800, Until Discontinued Given 03/08/2025 10:02 AM EDT 7.5 mg oxyCODONE (ROXICODONE) immediate release tablet 5-10 mg 5-10 mg, Oral, EVERY 3 HOURS PRN, Starting on 02/22/25 at 1327, Until Sun03/08/25 at 1814, Pain, Begin with lowest dose unless otherwise directed. Reassess pain in one hour. If pain unrelieved, remainder of dose may be given to patient., Post-op Given 03/07/2025 9:55 PM EDT 10 mg pantoprazole (PROTONIX) tablet 40 mg 40 mg, Oral, DAILY, First dose on 02/28/25 at 1700, Until Discontinued, Do not crush or chew Given 03/08/2025 9:00 AM EDT 40 mg polyethylene glycol (GLYCOLAX, MIRALAX) packet 17 g 17 g, Oral, DAILY, First dose on Sun02/16/25 at 1215, Until Discontinued, Mix in 8 oz of water Given 03/07/2025 8:45 AM EDT 17 g senna (SENOKOT) tablet 17.2 mg 17.2 mg, Oral, 2 TIMES DAILY, First dose on Sun02/16/25 at 1215, Until Discontinued Given During Downtime 03/04/2025 9:14 PM EDT 17.2 mg sodium chloride 0.9 % 250 mL IV bolus Intravenous, PRN, Starting on 03/02/25 at 1645, Until Sun03/08/25 at 1814, at [...] (2 times per day), First dose on 03/01/25 at 2100, Until Discontinued, Flush with 3-5 mL saline for PERIPHERAL saline lock maintenance. Given 03/08/2025 9:00 AM EDT sodium chloride 0.9% syringe Intravenous, PRN, Starting on 03/01/25 at 1447, Until 03/08/25 at 1814, Line Care, Flush with 5-10 mL saline pre/post IVP, and 5 mL prior to IVPB or blood product administration. sterile water injection 1 mL 1 mL, Injection, PRN, Starting on 02/22/25 at 1214, Until 03/08/25 at 1814, Use for drug dilution, Use to dilute and administer glucagon injection tamsulosin (FLOMAX) capsule 0.4 mg 0.4 mg, Oral, DAILY, First dose (after last modification) on 03/02/25 at 0900, Until Discontinued, Hold for SBP less than 100 Capsule should be swallowed whole, do not open Given 03/08/2025 10:02 AM EDT 0.4 mg tobramycin (NEBCIN) injection INTRAPROCEDURE, Starting on 02/22/25 at 0907, Until 02/22/25 at 1254, Intra-op Given 02/22/2025 9:07 AM EDT 1,200 mg Right Hip vancomycin (VANCOCIN) reconstituted injection INTRAPROCEDURE, Starting on 02/22/25 at 0909, Until 02/22/25 at 1254, Intra-op Given 02/22/2025 9:09 AM EDT 1,000 mg Right Hip documented in this encounter Discontinued Medications Medication [...] Eyes. fluticasone propionate (FLONASE) 50 mcg/actuation Nasl [place], Suspension 2 Sprays by Nasal route 2 [...] Machado RN) 0849 (Given - Provider: Blanca Powell, ELLEN)2154 (Given - Provider: Marisol aMchado, RN) 1002 (Given - Provider: Tita Rhodes, RN) apixaban (ELIQUIS) tablet 5 mg(Linked Group 1) 5 mg, Oral, 2 TIMES DAILY, First dose on Sun03/09/25 at 0900, Until Discontinued aspirin EC tablet 81 mg 81 mg, Oral, DAILY, First dose on Sun03/02/25 at 1230, Until Discontinued, Do not crush or chew. 0934 (Given - Provider: Tita Rhodes RN) 0846 (Given - Provider: Blanca Powell, RN) 1002 (Given - Provider: Tita Rhodes, RN) atorvastatin (LIPITOR) tablet 40 mg 40 mg, Oral, DAILY, First dose on Sun02/16/25 at 0900, Until Discontinued 0935 (Given - Provider: Tita Rhodes RN) 0846 (Given - Provider: Blanca Powell, RN) 1002 (Given - Provider: Tita Rhodes, RN) bisacodyL (DULCOLAX) EC tablet 10 mg(Linked Group 2) 10 mg, Oral, 2 TIMES DAILY, First dose on Sun02/24/25 at 0900, Until Discontinued, Start 48 hours post-op. Hold if patient has had bowel movement. Nurse may select tablet or suppository., Post-op 0900 (Not Given - Provider: Tita Rhodes RN - Reason: Patient Declined - Comment: only asking for colace)2111 (Not Given - Provider: Marisol Machado RN - Reason: Patient Declined) 0846 (Not Given - Provider: Blanca Powell RN - Reason: Patient Declined - Comment: patient last BM 03/06/25)2156 (Not Given - Provider: Marisol Machado RN - Reason: Patient Declined) 0900 (Not Given - Provider: Ludmila Escudero RN - Reason: Patient Declined) bisacodyL (DULCOLAX) suppository 10 mg(Linked Group 2) 10 mg, Rectal, 2 TIMES DAILY, First dose on Sun02/24/25 at 0900, Until Discontinued, Start 48 hours post-op. Hold if patient has had bowel movement. Nurse may select tablet or suppository., Post-op 0900 (See Alternative - Provider: Tita Rhodes RN)2111 (See Alternative - Provider: Marisol Machado RN) 0846 (See Alternative - Provider: Blanca Powell RN)2156 [...] 250 +D) oral 0934 (Given - Provider: iTta Rhodes RN) 0847 (Given - Provider: Blanca Powell RN) 1002 (Given - Provider: Tita Rhodes RN) ceFAZolin (ANCEF) IVPB 2 g 2 g, Intravenous, EVERY 8 HOURS SCHEDULED (3 times per day), 96 doses, First dose (after last modification) on Vianey 03/05/25 at 1400, Last dose on Sun04/06/25 at 0600, Administer over 30 Minutes, Reason for Therapy: Infection Documented, Indication: Bacteremia 06 (IV Started - Provider: Dolly Gibson RN)0653 (Stopped - Provider: Tita Rhodes RN)1528 (IV Started - Provider: Yolanda Castillo, ELLEN)1558 (Stopped - Provider: Tita Rhodes RN)212 (IV Started - Provider: Marisol Machado RN)2123 (Rate/Dose Verify - Provider: Blanca Powell RN)2152 (Stopped - Provider: Marisol Machado RN) 0500 (IV Started - Provider: Marisol Machado RN)0530 (Stopped - Provider: Marisol Machado RN)1455 (IV Started - Provider: Blanca Powell RN)1525 (Stopped - Provider: Blanca Powell RN)2203 (IV Started - Provider: Marisol Machado RN)2233 (Stopped - Provider: Marisol Machado RN) 0653 (IV Started - Provider: Marisol Machado RN)0723 (IV Stopped by Other - Provider: Ludmila Escudero RN)1322 (IV Started - Provider: Tita Rhodes RN)1352 (Due: Stopped - Provider: Tita Rhodes RN)1814 (Due: Stopped) docusate sodium (COLACE) capsule 100 mg 100 mg, Oral, 2 TIMES DAILY, First dose on 02/22/25 at 2100, Until Discontinued, Do not crush or chew., Post-op 933 (Given - Provider: Tita Rhodes RN)2112 (Not Given - Provider: Marisol Machado RN [...] Until Discontinued 2112 (Given - Provider: Marisol Machado RN) 2153 (Given - Provider: Marisol Machado, ELLEN) DULoxetine (CYMBALTA) capsule 60 mg 60 mg, Oral, DAILY, First dose on Sun02/16/25 at 0900, Until Discontinued 933 (Given - Provider: Tita Rhodes RN) 0847 (Given - Provider: Blanca Powell RN) 1002 (Given - Provider: Tita Rhodes, RN) insulin aspart U-100 (NovoLOG) injection 1-15 [...] Rhodes RN)1800 (Given - Provider: Tita Rhodes RN)2113 (Given - Provider: Marisol Machado, ELLEN) 0845 (Given - Provider: Blanca Powell, ELLEN)1207 (Given - Provider: Blanca Powell, RN)1821 (Given - Provider: Blanca Powell RN)2154 (Given - Provider: Marisol Machado RN) 0800 (Given - Provider: Tita Rhodes RN)1300 (Due [...] dose by 20%. Waste Sort Code = [facility] 0628 (Given - Provider: Dolly Gibson RN)2005 (Given - Provider: Tita Rhodes RN) 06 (Given - Provider: Marisol Machado RN)1821 (Given - Provider: Blanca Powell RN) 0652 (Given - Provider: Marisol Machado RN) ketorolac (ACULAR) 0.5 % ophthalmic solution 1 Drop 1 Drop, Right Eye, 4 TIMES DAILY, First dose on Sun03/06/25 at 1830, Until Discontinued 1830 (Given - Provider: Tita Rhodes RN)2005 (Given - Provider: Tita Rhodes RN) 0900 (Given - Provider: Blanca Powell RN)1210 (Given - Provider: Blanca Powell RN)171 (Given - Provider: Blanca Powell RN)215 (Given - Provider: Marisol Machado RN) 0900 (Given - Provider: Tita Rhodes RN)1300 (Due) miconazole (MICATIN) 2 % powder Topical, 2 TIMES DAILY, 84 doses, First dose on 03/01/25 at 2100, Last dose on 04/12/25 at 0900, Application site: [place] area 899 (Given - Provider: Tita Rhodes RN)2112 (Given - Provider: Marisol Machado RN) 09 (Given - Provider: Blanca Powell RN)215 (Given - Provider: Marisol Machado RN) 0900 [...] 40 mg, Oral, DAILY, First dose on Sun02/28/25 at 1700, Until Discontinued, Do not crush [...] dose on 02/16/25 at 1215, Until Discontinued 09 (Not Given - Provider: Tita Rhodes RN - Reason: Patient Declined - Comment: only asking for colace)2113 (Not Given - Provider: Marisol Machado RN [...] 7 days. 0618 (Given - Provider: Dolly Gibson RN)1400 (Given - Provider: Ttia Rhodes RN)2114 (Given - Provider: Marisol Machado RN) 0559 (Given - Provider: Marisol Machado RN)1453 (Given - Provider: Blanca Powell RN)2200 (Not Given - Provider: Marisol Machado RN - Reason: Other - Comment: duplicate) 0652 (Given - Provider: Marisol Machado RN)1400 (Given - Provider: Tita Rhodes RN) sodium chloride 0.9% syringe Intravenous, EVERY 12 HOURS SCHEDULED (2 times per day), First dose on 03/01/25 at 2100, Until Discontinued, Flush with 3-5 mL saline for PERIPHERAL saline lock maintenance. 0934 (Given - Provider: Tita Rhodes RN)2114 (Given - Provider: Marisol Machado, RN) 0904 (Given - Provider: Blanca Powell, RN)2200 (Given - Provider: Marisol Machado, RN) 0900 (Given - Provider: Tita Rhodes RN) tamsulosin (FLOMAX) capsule 0.4 mg 0.4 mg, Oral, DAILY, First dose (after last modification) on 03/02/25 at 0900, Until Discontinued, Hold for SBP [...] Oral, EVERY 4 HOURS PRN, Starting on 02/18/25 at 1241, Until 03/08/25 at 1814, Pain, [...] propionate (FLONASE) 50 mcg/actuation nasal spray 2 [place] 2 [place], Nasal, 2 TIMES DAILY PRN, Starting on [...] lines. 0618 (Given - Provider: Dolly Gibson, ELLEN)0619 (Given - Provider: Dolly Gibson, ELLEN) sodium chloride 0.9% syringe Intravenous, PRN, Starting [...] med 1 mg, Intramuscular, PRN, Starting on 02/22/25 at 1214, Until Sun03/08/25 at 1814, Low blood sugar, If FSBS less than 70 mg/dl, patient cannot take orally and without IV access, If patient is without IV access, give Glucagon 1 mg Intramuscularly, insert IV and call physician. And sterile water injection 1 mLJump to med 1 mL, Injection, PRN, Starting on 02/22/25 at 1214, Until Sun03/08/25 at 1814, Use for drug dilution, Use to dilute and administer glucagon injection documented in this encounter Orders Medications Ordered That Néstor ht Not Have Been Administered Count Last Ordered Date First Ordered Date ketorolac (ACULAR) 0.5 % oph thalmic solution 1 Drop 1 03/06/2025 ceFAZolin (ANCEF) IVPB 2 g 3 03/05/2025 0 02/22/2025 polyvinyl alcohol (LIQUIFILM TEARS) 1.4 % ophthalmic solution 1 Drop 2 03/05/2025 02/16/2025 magnesium citrate solution 296 mL 1 025 apixaban (ELIQUIS) tablet 10 mg 1 apixaban (ELIQUIS) tablet 5 mg 2 03/02/2025 02/19/2025 aspirin EC tablet 81 mg 1 03/02/2025 ceFAZolin (ANCEF) IVPB 1 g 1 03/02/2025 heparin 25,000 units in 250 mL 0.45% NaCl 2 03/02/2025 03/01/2025 insulin glargine U-100 (LANT US) injection 8 Units 1 03/02/2025 sodium chloride 0.9 % 250 mL IV bolus 1 ceFEPIme (MAXIPIME) 1 g/50 mL IVPB 1 2024 iopamidol (ISOVUE-300) oral contrast 30 mL 2 03/01/2025 iopamidoL (ISOVUE-370) 370 m g iodine /mL (76 %) injection (LOW) 100 mL 1 03/01/2025 metroNIDAZOLE (FLAGYL) IVPB 500 mg 1 2024 miconazole (MICATIN) 2 % powder 1 midodrine (PROAMATINE) tablet 5 mg 1 2024 midodrine (PROAMATINE) tablet 7.5 mg 1 02/15 perflutren lipid microsphere s (DEFINITY) 1.3 mL in sodium chloride 0.9% 10 mL injection 1 03/01/2025 sodium chloride 0.9 % 1,000 mL IV bolus 1 0 03/01/2025 sodium chloride 0.9% syringe 5 03/01/2025 02/18/2025 tamsulosin (FLOMAX) capsule 0.4 mg 1 2024 vancomycin (VANCOCIN) 2,000 mg in sodium chloride 0.9 % 550 mL IVPB 2 03/01/2025 02/19/2025 vancomycin in sodium chlorid e 0.9% premix IVPB 1,750 mg 2 03/01/2025 02/21/2025 midodrine (PROAMATINE) tablet 2.5 mg 1 02/15 pantoprazole (PROTONIX) tablet 40 mg 1 02/15 0.9 % NaCl infusion 2 02/27/2025 02/27/20 tobramycin-dexamethasone (TO BRADEX) ophthalmic ointment 1 02/27/2025 alteplase (ACTIVASE) injection 1 mg 1 02/26 lidocaine 10 mg/mL (1 %) inj ection (PF) 10 mg 1 02/26/2025 melatonin tablet 5-10 mg 1 02/26/2025 mupirocin (BACTROBAN) 2 % ointment 2 202402/22/2025 sodium chloride 0.9% IV line flush 20-50 mL 2 02/26/2025 02/21/2025 sodium chloride 0.9% syringe 10 mL 1 2024 metFORMIN (GLUCOPHAGE) tablet 500 mg 1 02/15 bacitracin-polymyxin b (POLY SPORIN) ophthalmic ointment 3 02/24/2025 02/20/2025 insulin glargine U-100 (LANT US) injection 10 Units 2 02/23/2025 02/22/2025 insulin glargine U-100 (LANT US) injection 5 Units 1 02/23/2025 aluminum & magnesium hydroxi de-simethicone 200-200-20 mg/5 mL suspension 30 mL 1 02/22/2025 apixaban (ELIQUIS) tablet 2.5 mg 1 02/23/20 bisacodyL (DULCOLAX) EC tablet 10 mg 1 04/2025 bisacodyL (DULCOLAX) suppository 10 mg 1 dextrose 50 % solution 25 mL 1 02/22/2025 dimenhyDRINATE (DRAMAMINE) 1 2.5-50 mg in sodium chloride 0.9% injection 1 02/22/2025 docusate sodium (COLACE) capsule 100 mg 1 0 02/22/2025 droPERidol (INAPSINE) injection 0.625 mg 1 02/22/2025 fentaNYL (SUBLIMAZE) injection 50 mcg 1 04/2025 glucagon (GLUCAGEN) injection 1 mg 1 2024 HYDROmorphone (DILAUDID) injection 0.25 mg 1 02/22/2025 insulin aspart U-100 (NovoLO G) injection 1-10 Units 1 02/22/2025 insulin aspart U-100 (NovoLO G) injection 1-15 Units 1 02/22/2025 lactated ringers infusion 1 02/22/2025 magnesium hydroxide (MILK OF MAGNESIA) 400 mg/5 mL suspension 30 mL 1 02/22/2025 ondansetron (ZOFRAN) injection 4 mg 1 02/22 ondansetron (ZOFRAN-ODT) dis integrating tablet 8 mg 1 02/22/2025 ortho canal block 1 02/22/2025 oxyCODONE (ROXICODONE) immed iate release tablet 5 mg 2 02/22/2025 02/18/2025 oxyCODONE (ROXICODONE) immed iate release tablet 5-10 mg 1 02/22/2025 promethazine (PHENERGAN) 12. 5 mg in sodium chloride 0.9% 10 mL injection 1 02/22/2025 promethazine (PHENERGAN) 6.2 5 mg in sodium chloride 0.9% 10 mL injection 1 02/22/2025 senna (SENOKOT) tablet 2 Tablet 1 sterile water injection 1 mL 1 02/22/2025 diphenhydrAMINE (BENADRYL) tablet 25 mg 1 0 02/20/2025 piperacillin-tazobactam in d extrose (ZOSYN) IVPB 3.375 g 1 02/19/2025 vancomycin in dextrose 5% (V ANCOCIN) premix IVPB 1,500 mg 1 02/19/2025 acetaminophen (TYLENOL) tablet 650 mg 1 12/2024 gadoterate meglumine (DOTARE M) solution 20 mL 1 02/18/2025 LORazepam (ATIVAN) injection 1 mg 1 025 atorvastatin (LIPITOR) tablet 40 mg 1 02/16 calcium carbonate-vitamin D 500 mg-5 mcg (200 unit) per tablet 1 Tablet 1 02/16/2025 donepeziL (ARICEPT) tablet 5 mg 1 DULoxetine (CYMBALTA) capsule 60 mg 1 02/16 fluticasone propionate (FLON ASE) 50 mcg/actuation nasal spray 2 [place] 1 02/16/2025 fUROsemide (LASix) tablet 20 mg 1 melatonin tablet 5 mg 1 02/16/2025 polyethylene glycol (GLYCOLA X, MIRALAX) packet 17 g 1 02/16/2025 senna (SENOKOT) tablet 17.2 mg 1 02/16/2025 tamsulosin (FLOMAX) capsule 0.8 mg 1 2024 Nursing Count Last Ordered Date First Orde [...] IP CONSULT TO ORTHOPEDIC SURGERY 1 02/17/20 OT Count Last Ordered Date First Orde red Date IP CONSULT TO OCCUPATIONAL THERAPY 1 2024 PT Count Last Ordered Date First Orde red Date IP CONSULT TO PHYSICAL THERAPY 3 02/22/2025 02/16/2025 PT PLAN OF CARE CERTIFICATION 1 02/17/2025 ONGOING PHYSICAL THERAPY PER PLAN OF CARE 1 02/16/2025 SCALES INSPECTOR Count Last Ordered Date First Orde red [...] 03/08/2025 documented in this encounter Care Teams Family Support Specialist Relationship Specialty Start Date End Date No Pcp, Per Patient PCP - General 02/16/25 documented as of this encounter
--- OUTSIDE RECORDS SUMMARY | 2025-02-22 08:24 | XMS_ITS | Encounter Summary ---
Author Organization [place] [address] Care Team Providers Care Financial Service Professional Name Role Phone No Pcp, Per Patient Primary Care Provider Robyn arshad Reason for Visit * Auth/Cert/Inpt Specialty Diagnoses / Procedures Referred By Rebecca anderson Referred To Contact Diagnoses Right hip pain right hip pain Referral ID Status Reason Start Date Expiration Date Visits Re quested Visits Authorized [id number] 1 1 Encounter Details Date Type Department Care Team (Late st Contact Info) Description 02/22/2025 8:24 AM EDT Anesthesia Event [facility] [address] [id number] Serafin Morejon MD [address] [facility] [address] [place] [address] Anesthesia Record Procedure Summary Procedure Name Responsible Anesthesiologist Anesthesia Start Time Anesthesia Stop Time TOTAL HIP OR LEWIS ARTHROPLASTY REVISION -POSTERIOR LATERAL/ POSITION (Right: Hip) Serafin Morejon MD 02/22/25 0824 02/22/25 1044 Events Date Time Event Comment 02/22/2025 0756 0757 AN Equip Check 0824 An Start 0824 An Start Data 0826 Immediate Pre Anesthetic Ass es 0829 An Induction 0832 An Intubation 0833 Anesthesia Ready 0855 Time out 0858 Incision 0924 Quick Note Recruiting kedar uver - 30 cm H2O for 30 sec 0939 Quick Note Gas sensor malf unction - no change in agent level being delivered 1001 Quick Note Prompted to carline Boone - spoke to pharmacy who said stick to the way it is scheduled 1023 An Emergence 1037 An Extubation 1040 an stop data 1044 An Stop 1044 Handoff I completed my SBAR handoff to the receiving nurse which has included the followin. Identification of the patient, family, or patient surrogate 2. Identification of the responsible practitioner 3. Pertinent medical history 4. Surgical procedure and reason for procedure 5. Intraoperative anesthetic management 6. All current lines, drains and respiratory support. 7. Outstanding follow up orders (X-rays, consults etc) 8. Expectations/Plans for the early post-procedure period 9. Opportunity for questions and acknowledgement of understanding from the receiving PACU/ICU marketing team lead Meds Name Total lidocaine injection 1% 40 mg fentaNYL 50 MCG/ML INJ 50 mcg propofol (DIPRIVAN) injection 100 mg rocuronium (ZEMURON) 10 mg/mL injection 50 mg dexamethasone (DECADRON) injection 4 mg/ mL 4 mg ondansetron (ZOFRAN) injection 4 mg /2 m L 4 mg sugammadex (BRIDION) 100 mg/mL injection 230 mg lidocaine 4 % ([id number]) laryngotrac heal solution 4 mL piperacillin-tazobactam in dextrose (ZOS YN) IVPB 3.375 g 3.375 g acetaminophen (OFIRMEV)1000 mg/100 mL in fusion 1,000 mg albuterol (PROVENTIL HFA;VENTOLIN HFA) i nhaler 10 Puff tranexamic acid injection 1,000 mg lactated ringers infusion 400 mL * Agents Name O2 N2O Air Et Sevoflurane Et Desflurane * Blood No blood administrations on file. Lines, Drains, and Airways Type Details Placement Removal Peripheral IV 02/20/25; 1130; 02/15 12/09; 22; 1.75; Nexiva Diffusics; Left; Forearm; HLP RN VAT; 1; Ultrasound guided; None; 02/23/25; 0700; Other (comment) (removed by other RN); Catheter intact, Dressing applied 02/20/25 1130 by Kiko Andrew, ELLEN 02/23/25 0700 by Clau Rizzo, ELLEN Peripheral IV 02/22/25; 0818; 22; Right; Hand; [place]; 2; None; 02/26/25; 1109; Therapy completed; Catheter intact, Dressing applied, No Complications 02/22/25 0818 by Serafin Morejon MD 02/26/25 1109 by Jocelynn Hodges, ELLEN Airway Device: ETT- Cuffed; Size: 7.5 mm; Placement Date: 02/22/25; Placement Time: 08 (created via procedure documentation); Removal Date: 02/22/25; Removal Time: 1037 02/22/25 0832 by Serafin Morejon MD 02/22/25 1037 by Serafin Morejon MD Incision/Wound 02/22/25; 0901; Clos ed Surgical; Thigh; Proximal, Right; 03/08/25; 1814 02/22/25 0901 by Keenan Rainey, RN 03/08/25 181 by Discharge Provider, Automatic Incision/Wound 02/22/25; 92202/22/25 09 by Keenan Rainey, ELLEN 02/22/25 09 by Keenan Rainey, RN documented in this encounter Social History Tobacco Use Types Packs/Day Years Used Date Smoking Tobacco: Never Assessed [facility] Utilities Answer Date Recorded In [...] Date Recorded PHQ-2 Total Score 0 02/16/2025 [facility] Occup[facility] - Occupational Stress [...] money to get more. Never true 02/16/2025 [facility] IP Transportation Answer D ate Recorded [...] on file documented as of this encounter Procedure Notes * Serafin Morejon MD - 02/22/2025 8:43 AM EDTAssociated Order(s): Intraop Airway Placement Intraop Airway Placement: Date/Time: 02/22/2025 8:32 AM Induction type: IV Mask size: Standard adult Pre-Oxygenation: Standard Mask ventilation: Moderate mask ventilation Mask ventilation improved by: Jaw thrust and Chinlift Technique: Video laryngoscope Laryngoscope blade: [place]anks Blade size: 3 Grade view: I Airway type: ETT- cuffed Topical Anesthetic/Lubricant: None Intubation assist devices: Stylet 14fr Airway location: Oral Device size: 7.5mm Secured at: 23 cm Secured by: Tape Measured from: Lips Placement verified: Auscultation, End tidal CO2 and Symmetric chest wall motion Condition: Atraumatic Insertion attempts: 1 Attempt 1 by: Jean-Pierre Title: Anesthesiologist lidocaine 4 % ([id number]) laryngotracheal solution - Laryngotracheal 4 mL - 02/22/2025 8:32:00 AM: documented in this encounter OR Notes * Anesthesia Postprocedure Evaluation - Serafin Morejon MD - 02/22/2025 1:35 PM EDT Post-Anesthesia Evaluation Note Patient Name: Steve King Patient Date: February 22, 2025 Post-Anesthesia Evaluation Patient Location: PACU Post op vitals: stable Difficult airway: no Nausea controlled: yes Level of consciousness: awake and alert Post anesthesia pain: adequate analgesia Long acting local anesthetic: n/a Airway patency: patent Respiratory status: nasal canula and spontaneous ventilation Cardiovascular status: stable Hydration status: euvolemic Temperature: Normothermia Perioperative complications: NONE Vitals Value Taken Time BP 115/68 02/22/25 12:45 Resp 11 02/22/25 12:45 SpO2 98 % 02/22/25 12:45 Temp 35.9 ??C (96.6 ??F) 02/22/25 12:45 Pulse 63 02/22/25 12:45 * Anesthesia Preprocedure Evaluation - Serafin Morejon MD - 02/20/2025 2:11 PM EDT Images from the original note were not included. Pre-Anesthesia Evaluation Note Patient Name: Steve King Sex: male Patient : 1935 Age: 89 y.o. Patient Date: February 20, 2025 Procedure(s): Right hip Incision & Drainage with head/liner exchange Anesthesia Evaluation Previous anesthesia. No history of anesthetic complications: Airway Mallampati: II TM distance: >3 FB Neck ROM: full No increased risk of difficult airway Dental Pulmonary (+) Sleep apnea Physical exam: Comments: Clear to auscultation (-) no asthma Cardiovascular Comments: TTE 09/2024: EF 26 - 30%. ?? Left ventricular wall thickness is consistent with hypertrophy. ?? Moderate aortic valve stenosis is present. ?? Moderate to severe mitral valve regurgitation is present with a centrally-directed jet noted. (+)CAD/DC (ANN to LAD 09/2023): Coronary Stents CHF: LV failure Arrhythmias: atrial fibrillation Physical exam: Rhythm: regular Rate: normal Neuro/Psych (+) Psychiatric history: Peripheral neuropathy Dementia GI/Hepatic/Renal (+)Dysphagia (-) no GERD/PUD, no chronic kidney disease Endo/Other (+): Obese: Diabetes mellitus: type 2 Diabetic complications: neuropathy Anemia anticoagulation therapy (Eliquis) [employer] Additional Pre-evaluation comments Opioids History of Opioid use Acute RX : Body mass index is 30.65 kg/m??. Anesthesia Plan ASA 4 Last solid intake: The patient has not eaten within the last 8 hours. Last clear liquid intake: The patient has not had clear liquids within the last 2 hours. Anesthesia Plan: general Induction: intravenous Monitors: STD Informed consent Anesthetic plan and risks discussed with: patient. Chart Reviewed and patient examined documented in this encounter Plan of Treatment Upcoming Encounters Date Type Department Care Team (Late st Contact Info) Description 04/28/2025 3:45 PM EDT Office Visit [facility] [address] [facility] [address] [place] [address] Nick Elkins MD [address] [place] [address] documented as of this encounter Procedures Procedure Name Priority Date/Time Associated Diagnosis Comments INTRAOP AIRWAY PLACEMENT Routine 02/22/2025 8:32 AM EDT documented in this encounter Results * INTRAOP AIRWAY PLACEMENT (02/22/2025 8:32 AM EDT) Narrative [facility] - 02/22/2025 8:32 AM EDT Serafin Morejon MD 02/22/2025 8:43 AM Intraop Airway Placement: Date/Time: 02/22/2025 8:32 AM Induction type: IV Mask size: Standard adult Pre-Oxygenation: Standard Mask ventilation: Moderate mask ventilation Mask ventilation improved by: Jaw thrust and Chinlift Technique: Video laryngoscope Laryngoscope blade: [place]anks Blade size: 3 Grade view: I Airway type: ETT- cuffed Topical Anesthetic/Lubricant: None Intubation assist devices: Stylet 14fr Airway location: Oral Device size: 7.5mm Secured at: 23 cm Secured by: Tape Measured from: Lips Placement verified: Auscultation, End tidal CO2 and Symmetric chest wall motion Condition: Atraumatic Insertion attempts: 1 Attempt 1 by: Jean-Pierre Title: Anesthesiologist lidocaine 4 % ([id number]) laryngotracheal solution - Laryngotracheal 4 mL - 02/22/2025 8:32:00 AM: us Serafin Morejon MD [place] ANESTHESIA Edited Re sult - Final [facility] [address] [place], [place] [id number] documented in this encounter Visit Diagnoses Not on filedocumented in this encounter Administered Medications Inactive Administered Medications - up to 1 most recent administrations Medication Order MAR Action Action Date Dose Rate Site acetaminophen (OFIRMEV) infusion Intravenous, PRN (Anesthesia), Starting on 02/22/25 at 0914, Until 02/22/25 at 1044, Administer over 15 Minutes, Anesthesia Intra-op Given 02/22/2025 9:14 AM EDT 1,000 mg albuterol (PROVENTIL HFA;VENTOLIN HFA) inhaler Inhalation, PRN (Anesthesia), Starting on 02/22/25 at 0936, Until 02/22/25 at 1044, Anesthesia Intra-op Given 02/22/2025 9:36 AM EDT 10 Puffs dexAMETHasone (DECADRON) injection Intravenous, PRN (Anesthesia), Starting on 02/22/25 at 0840, Until 02/22/25 at 1044, Anesthesia Intra-op Given 02/22/2025 8:40 AM EDT 4 mg fentaNYL (SUBLIMAZE) injection Intravenous, PRN (Anesthesia), Starting on 02/22/25 at 0843, Until 02/22/25 at 1044, Anesthesia Intra-op Given 02/22/2025 8:43 AM EDT 50 mcg lactated ringers infusion Intravenous, CONTINUOUS PRN, Starting on 02/22/25 at 0824, Until 02/22/25 at 1044, Anesthesia Intra-op New Bag 02/22/2025 8:24 AM EDT lidocaine 1% 10 mg/mL (1 %) injection Intravenous, PRN (Anesthesia), Starting on 02/22/25 at 0828, Until 02/22/25 at 1044, Anesthesia Intra-op Given 02/22/2025 8:28 AM EDT 40 mg lidocaine HCl ([id number]) 4 % topical solution Laryngotracheal, ONCE PRN, Starting on 02/22/25 at 0832, Until 02/22/25 at 0832, Anesthesia Intra-op Given 02/22/2025 8:32 AM EDT 4 mL ondansetron (ZOFRAN) injection Intravenous, PRN (Anesthesia), Starting on 02/22/25 at 1024, Until 02/22/25 at 1044, Anesthesia Intra-op Given 02/22/2025 10:24 AM EDT 4 mg piperacillin-tazobactam in dextrose (ZOSYN) IVPB 3.375 g 3.375 g, Intravenous, EVERY 8 HOURS SCHEDULED (3 times per day), 21 doses, First dose on [place] 02/19/25 at 1115, Last dose on [place] 02/26/25 at 0800, Administer over 4 Hours, piperacillin-tazobactam EXTENDED INFUSION - Administer over 4 hours VESICANT , Reason for Therapy: Infection Suspected, Indication: Skin/soft tissue Rate/Dose Verify 02/23/2025 1:58 PM EDT 12.5 mL/hr propofoL (DIPRIVAN) injection Intravenous, PRN (Anesthesia), Starting on [place] 02/22/25 at 0829, Until [place] 02/22/25 at 1044, Anesthesia Intra-op Given 02/22/2025 10:30 AM EDT 10 mg rocuronium injection Intravenous, PRN (Anesthesia), Starting on [place] 02/22/25 at 0830, Until [place] 02/22/25 at 1044, Anesthesia Intra-op Given 02/22/2025 8:30 AM EDT 50 mg sugammadex (BRIDION) injection Intravenous, PRN (Anesthesia), Starting on [place] 02/22/25 at 1012, Until [place] 02/22/25 at 1044, Anesthesia Intra-op Given 02/22/2025 10:12 AM EDT 230 mg tranexamic acid solution Intravenous, PRN (Anesthesia), Starting on [place] 02/22/25 at 0949, Until [place] 02/22/25 at 1044, Administer over 10 Minutes, Anesthesia Intra-op Given 02/22/2025 9:49 AM EDT 1,000 mg documented in this encounter Care Teams Financial Service Professional Relationship Specialty Start Date End Date No Pcp, Per Patient PCP - General 02/16/25 documented as of this encounter
--- OUTSIDE RECORDS SUMMARY | 2025-03-17 11:00 | XMS_ITS ---
Author Organization [facility] Address [address] [facility] [address] [place] [id number] Care Team Providers Care Architectural Engineer Name Role Phone Grady Chen Unavailable [phone] Cyndi Patton Unavailable [phone] Allergies No Known Allergies REASON FOR VISIT [facility] VISIT Medications Medication SIG (Take, Route, Frequency, Duration) Notes Start Date End Date Status Calcium Carb-Cholecalciferol 250-3.125 MG-MCG 1 tablet with a meal Orally Once a day Active Hydrocortisone 1 % 1 application to rash on back./torso Externally Twice a day Active Paste Base - as directed Snow's msgic butt psste to scrotum and teofilo area Active ceFAZolin Sodium 2 GM as directed Injection every 8 hours Active Atorvastatin Calcium 40 MG 1 tablet Orally Once a day Active Cymbalta 60 MG 1 cap(s) orally once a day Active Flonase Allergy Relief 50 MCG/ACT 2 sprays (1 spray in each nostril) in each nostril Once a day As needed Active Pantoprazole Sodium 40 MG 1 tab(s) Orally Once a day Active Acetaminophen 500 MG 1-2capsule as needed Orally every 4 hours As needed Active Aspirin 81 MG 1 tablet Orally Once a day Active Polyvinyl Alcohol 1.4 % instill into right eye Ophthalmic twice a day As needed Active Calcium Carbonate Antacid 1000 MG s Orally every 8 hours Active Donepezil HCl 5 MG 1 tablet at bedtime Orally Once a day Active MiraLax 17 GM/SCOOP 1 scoop mixed with 8 ounces of fluid Orally Once a day As needed Active Furosemide 20 MG 1 tablet Orally Once a day Active Tamsulosin HCl 0.4 MG 1 capsule Orally Once a day Active traMADol HCl 50 MG 1 tablet as needed Orally every 6 hours As needed Active Eliquis 5 MG 1 tab(s) Orally Two times a day Active CPAP machine and supplies - as directed as directed Active metFORMIN HCl 500 MG 1 tablet with a ellie l Orally twice a day Active Vital Signs Blood pressure systolic 102 mm Hg 03/17/20 25 Blood pressure diastolic 69 mm Hg 025 Heart Rate 90 /min 03/17/2025 Height 73.5 in 03/17/2025 Weight 261.6 lbs 03/17/2025 BMI 34.04 kg/m2 03/17/2025 Encounters Encounter Location Date Provider Diagnosis [address] [place] [id number] 03/17/2025 Cyndi Patton CHF (congestive hear t failure) I50.9 ; Atrial fibrillation status post cardioversion I48.91 ; Chronic hypoxic respiratory failure J96.11 ; Type 2 diabetes mellitus E11.9 ; Conjunctival hyperemia, right eye H11.431 ; ASCVD (arteriosclerotic cardiovascular disease) I25.10 ; Primary osteoarthritis involving multiple joints M89.49 ; HFrEF (heart failure with reduced ejection fraction) I50.20 ; Leg edema R60.0 ; Depression F32.9 ; History of total right hip replacement Z96.641 ; Mild cognitive impairment G31.84 ; BPH (benign prostatic hyperplasia) N40.0 ; OAB (overactive bladder) N32.81 ; Hearing loss H91.90 ; PUD (peptic ulcer disease) K27.9 ; GERD (gastroesophageal reflux disease) K21.9 ; Weakness generalized R53.1 ; Surgical aftercare, musculoskeletal system Z47.89 ; Environmental allergies Z91.048 ; Dyslipidemia E78.5 and Debility R53.81 Assessments Encounter Date Diagnosis (ICD Code) Assessment Notes Treatment Notes Treatment Clinical Notes Section Notes 03/17/2025 CHF (congestive heart failure) (ICD-10 - I50.9) 03/17/2025 Atrial fibrillation status post cardioversion (ICD-10 - I48.91) 03/17/2025 Chronic hypoxic respiratory failure (ICD-10 - J96.11) continues with O2 prn continues with O2 prn 03/17/2025 Type 2 diabetes mellitus (ICD-10 - E11.9) 03/17/2025 Conjunctival hyperemia, right eye (ICD-10 - H11.431) he describes less eye discomfort; he has just seen eye MD with no new meds; he will see a retina specialist 03/17/2025 ASCVD (arteriosclerotic cardiovascular disease) (ICD-10 - I25.10) 03/17/2025 Primary osteoarthritis involving multiple joints (ICD-10 - M89.49) 03/17/2025 HFrEF (heart failure with reduced ejection fraction) (ICD-10 - I50.20) 03/17/2025 Leg edema (ICD-10 - R60.0) Will monitor; with recent ARF and hypotension will not increase; weight gain also noted Will monitor; with recent ARF and hypotension will not increase; weight gain also noted 03/17/2025 Depression (ICD-10 - F32.9) 03/17/2025 History of total right hip replacement (ICD-10 - Z96.641) 03/17/2025 Mild cognitive impairment (ICD-10 - G31.84) 03/17/2025 BPH (benign prostatic hyperplasia) (ICD-10 - N40.0) 03/17/2025 OAB (overactive bladder) (ICD-10 - N32.81) 03/17/2025 Hearing loss (ICD-10 - H91.90) 03/17/2025 PUD (peptic ulcer disease) (ICD-10 - K27.9) 03/17/2025 GERD (gastroesophageal reflux disease) (ICD-10 - K21.9) 03/17/2025 Weakness generalized (ICD-10 - R53.1) 03/17/2025 Surgical aftercare, musculoskeletal system (ICD-10 - Z47.89) to continue with PT; will complete ABX as per surgeon; PICC line with routine care 03/17/2025 Environmental allergies (ICD-10 - Z91.048) 03/17/2025 Dyslipidemia (ICD-10 - E78.5) 03/17/2025 Debility (ICD-10 - R53.81) pt has made progress with PT and will continue 03/17/2025 Other discussed care after CR discharge; son is interested in Assisted care Plan Of Treatment Medication Medication Name Sig Start Date Stop Date Notes ceFAZolin Sodium 2 GM as directed Inject ion every 8 hours Atorvastatin Calcium 40 MG 1 tablet Orally Once a day Cymbalta 60 MG 1 cap(s) orally once a day Flonase Allergy Relief 50 MCG/ACT 2 sprays (1 spray in each nostril) in each nostril Once a day Pantoprazole Sodium 40 MG 1 tab(s) Orally Once a day Acetaminophen 500 MG 1-2capsule as neede d Orally every 4 hours Aspirin 81 MG 1 tablet Orally Once a day Polyvinyl Alcohol 1.4 % instill into rig ht eye Ophthalmic twice a day Calcium Carbonate Antacid 10 00 MG s Orally every 8 hours Donepezil HCl 5 MG 1 tablet at bedtime Orally Once a day MiraLax 17 GM/SCOOP 1 scoop mixed with 8 ounces of fluid Orally Once a day Furosemide 20 MG 1 tablet Orally Once a day Tamsulosin HCl 0.4 MG 1 capsule Orally Once a day traMADol HCl 50 MG 1 tablet as needed O rally every 6 hours Treatment Notes Assessment Notes Chronic hypoxic respiratory failure cont inues with O2 prn continues with O2 prn Conjunctival hyperemia, right eye he azalia cribes less eye discomfort; he has just seen eye MD with no new meds; he will see a retina specialist Leg edema Will monitor; with r ecent ARF and hypotension will not increase; weight gain also noted Will monitor; with recent ARF and hypotension will not increase; weight gain also noted Surgical aftercare, musculoskeletal syst em to continue with PT; will complete ABX as per surgeon; PICC line with routine care Debility pt has made progress with PT and will continue Other discussed care after CR discharge; son is interested in Assisted care Next Appt Details Follow Up: 2 Weeks, Reason: Provider Name:Grady Prajapati, 04/13/2025 11:32:00 AM, [address], [address] [place] [address], [phone], Progress Notes * YAZMIN TOBARDOB:1935 (89 yo M)Acc No.[id number]:03/17/2025 Progress Notes Patient: YAZMIN GARVEY Provider: BRENNA Mccarthy :1935 A ge:89 Y S ex:Male Date:03/17/2025 Address:[address] [place], [place] [id number] Subjective: * Chief Complaints: * 1 . [facility] VISIT. * HPI: H PI: f For routine Snf visit; chart reviewed and patient examined; see ROS; phi anderson has just returned from eye appt with his son; his son voices concerns about care after discharge from CR; he describes current dirty living conditions in pt's home. * ROS: R ESPIRATORY: no S hortness of breath. n o C hest congestion.?no C ough. C ARDIOLOGY: no C hest pain. L eg edema y es. n o S hortness of breath. G ASTROENTEROLOGY: no N ausea. n o V omiting. n o D iarrhea.? M USCULOSKELETAL: Positive for c ontinues to work with PT. O PTHALMOLOGY: Positive for e ye pain is less; saw eye DR and no new meds; to see retina speciallist. * Medical History: T ype 2 diabetes, Heart murmur, Hypertension, Hyperlipidemia, Allergic rhinitis, Ulcers, Depression with anxiety, NIGHAT -CPAP, ASCVD, Osteoarthritis, Headaches, BPH, Atrial Fibrillation - s/p cardioversion - 06/2023, Valvular heart disease- severe mitral regurg and severe Aortic stenosis, HFrEF, Right hip abscess with right hip arthrotomy with extensive debridement, pulmonary emboli LLL. * Surgical History: a ppendectomy 1965, kidney stone removal 94', 04', 06', Bilateral shoulder surgery , bilateral knee replacements , Coronary stent x1 01/2021, back surgery x 3/ [place] , Right MEKA/ Dr. Bosch 05/2022, Wash-out right hip joint/ Dr. Bosch 07/2022, Coronary stent x 1/ LAD 09/2023, Right hip arthrotomy with extensive debridement and head/liner exchange due to infection 02/22/2025. * Hospitalization/Major Diagno stic Procedure: C OVID; acute on chronic HRrEF; cady leg edemal NIGHAT;T2DM;Aortic stenosis; hypotension;severe generalized weakness; at fib -05/30/2024, [facility] : right hip effusion; T2Dm, CHANTAL; await transfer to [facility] 02/14-02/15/2025, [facility] with right hip abscess; right hip arthrotomy with extensive debridemenst and head/linerexchange; acute PE, T2DM, hypotension, HFmEF, BILATERAL PLEURAL EFFUSION; severe valvular heart disease; physical debility 02/16-03/08/2025. * Family History: F ather: , diagnosed with Stroke. M other: , diagnosed with Hypertension, Diabetes. 1 brother(s) , 2 sister(s) . . 1 sister at childbirth. * Social History: C URRENT TOBACCO USE: No . C affeine: no. Marital Status: . Alcohol: no. Occupation: College degree in [employer]. 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 Past smoking status: never smoked. Recreational drug use: no. * Medications: T aking Paste Base - Paste as directed , Notes to Pharmacist: Adi dorado butt psste to scrotum and teofilo area, Taking Hydrocortisone 1 % Cream 1 application to rash on back./torso Externally Twice a day , Taking ceFAZolin Sodium 2 GM Solution Reconstituted as directed Injection every 8 hours , stop date 04/05/2025, Taking Calcium Carb-Cholecalciferol 250-3.125 MG-MCG Tablet 1 tablet with a meal Orally Once a day , Taking traMADol HCl 50 MG Tablet 1 tablet as needed Orally every 6 hours As needed, Taking Tamsulosin HCl 0.4 MG Capsule 2 capsule Orally Once a day , Taking Polyvinyl Alcohol 1.4 % Solution instill into right eye Ophthalmic twice a day As needed, Taking MiraLax 17 GM/SCOOP Powder 1 scoop mixed with 8 ounces of fluid Orally Once a day As needed, Taking Donepezil HCl 5 MG Tablet 1 tablet at bedtime Orally Once a day , Taking Aspirin 81 MG Tablet Delayed Release 1 tablet Orally Once a day , Taking Acetaminophen 500 MG Capsule 1-2capsule as needed Orally every 4 hours As needed, Taking Pantoprazole Sodium 40 MG Tablet Delayed Release 1 tab(s) Orally Once a day , Taking CPAP machine and supplies - - as directed as directed , Taking Flonase Allergy Relief 50 MCG/ACT Suspension 2 sprays (1 spray in each nostril) in each nostril Once a day As needed, Taking Eliquis 5 MG Tablet 1 tab(s) Orally Two times a day , Taking Cymbalta 60 MG Capsule Delayed Release Particles 1 cap(s) orally once a day , Taking Atorvastatin Calcium 40 MG Tablet 1 tablet Orally Once a day , Taking metFORMIN HCl 500 MG Tablet 1 tablet with a meal Orally twice a day , Discontinued Furosemide 20 MG Tablet 1 tablet Orally Once a day , Discontinued Tobramycin 0.3 % Solution 1 drop into affected eye Ophthalmic Four times a day , Discontinued Calcium Carbonate Antacid 1000 MG Tablet Chewable s Orally every 8 hours * Allergies: N .K.D.A. Objective: * Vitals: W t: 261.6, Temp: 97.8, BP: 102/69, HR: 90, O2 Sat: 98, Nurse: reviewed/recorded, Ht: 73.5, BMI:34.04. * P ast Orders: L ab:H-BMP (Order Date - 03/12/2025) (Collection Date & Time - 03/12/2025 03:15 PM) Result: gluc 209, Na 134, cl 94, gap 15.6, bun 21 Value Reference Range NA 134 L 136-145 - mmol/L K 4.6 3.5-5.1 - mmoL/L CL 94 L 98-107 - mmol/L CO2 29 22.0-30.0 - mmol/L GAP 15.6 H 5-15 - mEq/L BUN 21 H 9-20 - mg/dl CREATT 0.90 0.66-1.25 - mg/dl GFRAA 97 >60 - ML/MIN EGFR 80 >60 - ml/min GLU 209 H 74-100 - mg/dl CA 8.6 8.4-10.2 - mg/dl * Examination: G eneral Examination: General Appearance: N AD, alert, well nourished and hydrated; traveling in wheelchair returning from eye appt; son is in attendance. H EENT: S clera and conjunctiva clear bilaterally. H eart: R RR. L ungs: C TAB A&P. E xtremities: s ome leg edema. Assessment: * Assessment: 1. C onjunctival hyperemia, right eye - H11.431 (Primary) 2 . C HF (congestive heart failure) - I50.9 3 . A trial fibrillation status post cardioversion - I48.91 4 . C hronic hypoxic respiratory failure - J96.11 5 . Type 2 diabetes mellitus - E11.9 6 . A SCVD (arteriosclerotic cardiovascular disease) - I25.10 7 . P rimary osteoarthritis involving multiple joints - M89.49? 8. H FrEF (heart failure with reduced ejection fraction) - I50.20 9. L eg edema - R60.0 1 0. D epression - F32.9 1 1. H istory of total right hip replacement - Z96.641 1 2. M ild cognitive impairment - G31.84 1 3. B PH (benign prostatic hyperplasia) - N40.0 1 4. OAB (overactive bladder) - N32.81 1 5. H earing loss - H91.90 ?16. P UD (peptic ulcer disease) - K27.9 1 7. G ERD (gastroesophageal reflux disease) - K21.9 1 8. W eakness generalized - R53.1 1 9. Surgical aftercare, musculoskeletal system - Z47.89 2 0. E nvironmental allergies - Z91.048 2 1. D yslipidemia - E78.5 2 2. D ebility - R53.81 Plan: * Treatment: 2. C hronic hypoxic respiratory failure Notes: continues with O2 prn continues with O2 prn 3. A SCVD (arteriosclerotic cardiovascular disease) Continue Aspirin Tablet Delayed Release, 81 MG, 1 tablet, Orally, Once a day. 4. L eg edema Continue Furosemide Tablet, 20 MG, 1 tablet, Orally, Once a day. Notes: Will monitor; with recent ARF and hypotension will not increase; weight gain also noted Will monitor; with recent ARF and hypotension will not increase; weight gain also noted 5. D epression Continue Cymbalta Capsule Delayed Release Particles, 60 MG, 1 cap(s), orally, once a day. ? 6. M ild cognitive impairment Continue Donepezil HCl Tablet, 5 MG, 1 tablet at bedtime, Orally, Once a day. 7. B PH (benign prostatic hyperplasia) Continue Tamsulosin HCl Capsule, 0.4 MG, 1 capsule, Orally, Once a day. 8. P UD (peptic ulcer disease) Continue Calcium Carbonate Antacid Tablet Chewable, 1000 MG, s, Orally, every 8 hours; C ontinue Pantoprazole Sodium Tablet Delayed Release, 40 MG, 1 tab(s), Orally, Once a day. 9. S urgical aftercare, musculoskeletal system Continue traMADol HCl Tablet, 50 MG, 1 tablet as needed, Orally, every 6 hours As needed; C ontinue MiraLax Powder, 17 GM/SCOOP, 1 scoop mixed with 8 ounces of fluid, Orally, Once a day As needed; C ontinue Acetaminophen Capsule, 500 MG, 1-2capsule as needed, Orally, every 4 hours As needed; C ontinue ceFAZolin Sodium Solution Reconstituted, 2 GM, as directed, Injection, every 8 hours. Notes: to continue with PT; will complete ABX as per surgeon; PICC line with routine care ? 10. E nvironmental allergies Continue Flonase Allergy Relief Suspension, 50 MCG/ACT, 2 sprays (1 spray in each nostril), in each nostril, Once a day As needed. 11. D yslipidemia Continue Atorvastatin Calcium Tablet, 40 MG, 1 tablet, Orally, Once a day. 12. D ebility Notes: pt has made progress with PT and will continue 13. O thers Notes: discussed care after CR discharge; son is interested in Assisted care * Follow Up: 2 Weeks * Images: Billing Information: * Visit Code: 27343 subs. level 4. * Procedure Codes: * Electronic signature of Parul Patton APRN on 04/13/2025 at 12:16 PM EDT Sign off status: Pending * Provider: BRENNA Mccarthy Date: 03/17/2025 Generated for Emi frias/Rebeca/Can on: 04/13/2025 12:16 PM EDT History and Physical Notes * Examination Category Sub-Category Detail Notes Category Not es General Examination HEENT: Sclera and c onjunctiva clear bilaterally Heart: RRR Lungs: CTAB A&P Extremities: some leg edema General Appearance: NAD, alert, well nou rished and hydrated; traveling in wheelchair returning from eye appt; son is in attendance
--- OUTSIDE RECORDS SUMMARY | 2025-03-19 14:30 | XMS_ITS | Encounter Summary ---
Author Organization [facility] Address [address] [place] [address] Care Team Providers Care Internet Marketing Consultant Name Role Phone Stephen Chen MD Primary Care Provider Reason for Referral * Diagnostic Imaging (Routine) - Closed Specialty Diagnoses / Procedures Referred By Rebecca t Referred To Contact Cardiology Diagnoses Aortic stenosis, moderate Heart failure due to valvular disease, chronic, systolic Procedures Adult Transthoracic Echo Complete W/ Cont if Necessary Per Protocol Mandy Giron APRN [address] [address] Phone: tel: fax: [facility] [address] [place] [id number] Phone: tel: fax: Referral ID Status Reason Start Date Expiration Date Visits Re quested Visits Authorized Closed 03/19/2025 06/18/2026 1 1 * Durable Medical Equipment (Routine) - Authorized Specialty Diagnoses / Procedures Referred By Rebecca t Referred To Contact Diagnoses Central sleep apnea Procedures PAP Therapy Mandy Giron APRN [address] [place] [address] Phone: tel: fax: [facility] [address] [place] [address] Phone: tel: fax: Referral ID Status Reason Start Date Expiration Date V isits Requested Visits Authorized Authorized 03/19/2025 06/18/2026 1 1 Reason for Visit * Reason Comments Atrial Fibrillation Follow-up Encounter Details Date Type Department Care Team (Late st Contact Info) Description 03/19/2025 2:30 PM EDT Office Visit [facility] [address] [place] [phone] Mandy Giron APRN [address] [address] Acute pulmonary embolism, unspecified pulmonary embolism type, unspecified whether acute cor pulmonale present (Primary Dx); Heart failure due to valvular disease, chronic, systolic; Aortic stenosis, moderate; Central sleep apnea Social History Tobacco Use Types Packs/Day Years Used Date Smoking Tobacco: Never Passive Smoke Exposure: Never Smokeless Tobacco: Never Alcohol Use Standard Drinks/Week Comments Never 0 (1 standard drink = 0.6 oz pur e alcohol) [facility] Utilities Answer Date Recorded In the past 12 months has [employer], gas, oil, or water [employer] threatened to shut off services in your home? No 07/08/2024 AUDIT-C Answer Date Recorded Q1: How often do you have a drink containing alcohol? Never 07/08/2024 Q2: How many drinks containi ng alcohol do you have on a typical day when you are drinking? Patient does not drink Q3: How often do you have si x or more drinks on one occasion? Never 07/08/2024 Overall Financial Resource Strain (CARDIA) Answe r Date Recorded How hard is it for you to pa y for the very basics like food, housing, medical care, and heating? Not hard at all 07/08/2024 [employer] - Occupational Stress Questionnaire Answer Date Recorded Do you feel stress - tense, restless, nervous, or anxious, or unable to sleep at night because your mind is troubled all the time - these days? Not at all 07/08/2024 Exercise Vital Sign Answer Date Recorde d On average, how many days pe r week do you engage in moderate to strenuous exercise (like a brisk walk)? 0 days 07/08/2024 On average, how many minutes do you engage in exercise at this level? 0 min 07/08/2024 Hunger Vital Sign Answer Date Recorded Within the past 12 months, y ou worried that your food would run out before you got the money to buy more. Never true 07/08/20 24 Within the past 12 months, t he food you bought just didn't last and you didn't have money to get more. Never true 07/08/2024 PRAPARE - Transportation Answer Date Re corded In the past 12 months, has l ack of transportation kept you from medical appointments or from getting medications? No 06/18 In the past 12 months, has l ack of transportation kept you from meetings, work, or from getting things needed for daily living? No 07/08/2024 Abuse Screen Answer Date Recorded Feels Unsafe at Home or Work/School no 07/08/2024 Feels Threatened by Someone no 06/18 Does Anyone Try to Keep You From Having Contact with Others or Doing Things Outside Your Home? no 07/08/2024 Physical Signs of Abuse Present no 07/08/2024 Housing Stability Answer Date Recorded Current Living Arrangements home 06/18 Potentially Unsafe Housing Conditions none 07/08/2024 Family and Community Support Answer Gregg e Recorded If for any reason you need h elp with day-to-day activities such as bathing, preparing meals, shopping, managing finances, etc., do you get the help you need? I don't need any help 07/08/2024 How often do you feel lonely or isolated from those around you? Never 07/08/2024 Employment Answer Date Recorded Do you want help finding or keeping work or a job? I do not need or want help 07/08/2024 Disabilities Answer Date Recorded Difficulty Concentrating, Remembering or Making Decisions no 07/08/2024 Difficulty Managing Errands Independently no 07/08/2024 Education Answer Date Recorded Do you want help with school or training? For example, starting or completing job training or getting a high school diploma, GED or equivalent No 07/08/2024 Preferred Language Mongolian 07/08/2024 PHQ-2 Answer Date Recorded Patient Health Questionnaire-2 Score 0 07/08/2024 Sex and Gender Information Value Date Recorded Sex Assigned at Not on file Legal Sex Male 10:35 AM EDT Gender Identity Not on file Sexual Orientation Not on file documented as of this encounter Last Filed Vital Signs Vital Sign Reading Time Taken Comments Blood Pressure 108/62 03/19/2025 2:32 PM EDT Pulse 82 03/19/2025 2:32 PM EDT Temperature - - Respiratory Rate - - Oxygen Saturation 98% 03/19/2025 2:32 PM EDT Inhaled Oxygen Concentration - - Weight 119 kg (262 lb) 03/19/2025 2:32 PM EDT Height 190.5 cm (6' 3 ) 03/19/2025 2:32 PM EDT Body Mass Index 32.75 03/19/2025 2:32 PM EDT documented in this encounter Progress Notes * Mandy Giron APRN - 03/19/2025 6:35 PM EDTAssociated Problem(s): Heart failure due to valvular disease, chronic, systolic Known history of chronic systolic heart failure and to severe valve dysfunction EF in June of 2023 noted 35 - 40%. EF October 13, 2024 noted 26 to 30% EF on echo 03/01/2025 during hospitalization noted EF 20% Plan: Collaborated with Dr. Bosch and I have a message for her input Recheck echo in 2 months Office visit in 2 months Continue Carloix Noted that his blood pressure readings are low to normal and I do not suspect that he would tolerate Eliquis or metoprolol or any medication that may lower his blood pressure * Mandy Giron APRN - 03/19/2025 6:31 PM EDTAssociated Problem(s): Aortic stenosis, moderate He has a known history of moderate aortic stenosis - He has had echo 06/18/2023 - Echo 05/21/2024 - Echo 07/25/2024 - Echo September 2024 Last echo at [facility] 03/01/2025. Discharge summary reports concerning for severe aortic stenosis and severe mitral regurgitation Discussed with patient at this time that may not be a candidate for any valve procedure due to his recent infection, PICC line and long-term antibiotic and pulmonary embolism Plan: Collaborate with Dr. Bosch for input and I have sent her a message Short follow-up in 2 months and repeat the echo Continue Eliquis and Lasix * Mandy Giron APRN - 03/19/2025 6:28 PM EDTAssociated Problem(s): Acute pulmonary embolism Diagnosed with PE on 03/01/2025. CT angio pulmonary positive for pulmonary embolism left lower lobe. He is now on Eliquis 5 mg twice daily He also has a known history of atrial fibrillation. We will plan to continue Eliquis 5 mg twice daily Check labs: CBC, BMP BNP and this can be completed with his next lab drawl at the [facility] or if no other lab draws due in 1 month. * Mandy Giron APRN - 03/19/2025 2:30 PM EDT Images from the original note were not included. [facility] Provider Note Date: 03/19/2025 Name: Steve King : 1935 PCP: Stephen Chen MD Chief Complaint Patient presents with Atrial Fibrillation Follow-up Subjective History of Present Illness Steve King is a 89 y.o. male who presents today for hospital follow-up visit. Patient presents to the clinic today via wheelchair and accompanied by his helpful son Herve. They report that he has been in [facility] from February 16 to March 08, 2025. They report that he was transferred from [facility] due to having a hip infection. And during the hospital stay he developed left lower lobe pulmonary embolism, bilateral pleural effusions. He also had an echocardiogram that showed his EF was 20% and was treated for heart failure. He had an echocardiogram on 03/01/2025 for further evaluation of his known history of moderate to severe severe aortic stenosis and moderate to severe severe mitral regurgitation. There had been discussion with Dr. Bosch in the past for consideration of a mitral clip. I discussed with the patient today that he may not be a candidate at this time due to his recent pulmonary embolism and his recentinfection that required IV antibiotics. He has a known history of atrial fibrillation. He had EKG during his hospital stay and that showed a sinus rhythm first-degree AV block with PVCs and borderline left axis deviation and left bundle branch block. The patient and his son both report today that he is now at [facility] and he has a PICC line and is receiving IV antibiotics 3 times a day. The patient's son reports that the IV antibiotics will be continued for about 3 weeks. Overall he reports that he does not have any acute symptoms of chest pain or shortness of breath, edema, dizziness or syncope. There is a [facility] and it is noted that he is on Eliquis twice a day for history of PE and atrial fibrillation and Lasix 40 mg a day for CHF. Patient reports he is using his ASV device every night [facility] the [facility] but he is needing a new mask. We discussed and he is following Dr. De La Rosa is at [facility] for his centralsleep apnea and ASV device but I told him today that I would send in an order for a mask and I encouraged them to follow-up with his doctor and to have his download reviewed with his sleep specialist. They are in agreement and appreciative of the mask order. Cardiac/Sleep History 1. CHF -chronic systolic. 2. CAD --s/p 1 stent (remote) --[facility] 09/2023 [facility], ANN to LAD 2.75 x 16 Niranjan, 50%RCA 3. CSA - ASV follows with Dr. De La Rosa 4. New onset A-fib with RVR (06/26/2023) 5. Aortic stenosis -- Echocardiogram 06/16/2023-LVEF 35-40%. Moderate aortic stenosis. Mild AI and mild MR. --[facility] 09/2023 < 20 mmHg gradient across the aortic valve 5. Moderate to severe mitral regurgitation 6. Left bundle branch block Allergies Allergen Reactions Tetanus-Diphtheria Toxoids Td Hives Tetanus Immune Globulin Hives Lisinopril Unknown (See Comments) On 06/26/2023 patient says he is not sure about this allergy Current Outpatient Medications: Acetaminophen 500 MG capsule, Every 4 (Four) Hours., Disp: , Rfl: apixaban (Eliquis) 5 MG tablet tablet, Take 1 tablet by mouth 2 (Two) Times a Day., Disp: 60 tablet, Rfl: 0 aspirin 81 MG EC tablet, Take 1 tablet by mouth Daily., Disp: , Rfl: atorvastatin (LIPITOR) 40 MG tablet, Take 1 tablet by mouth Daily., Disp: , Rfl: donepezil (ARICEPT) 5 MG tablet, Take 1 tablet by mouth Every Night., Disp: , Rfl: DULoxetine (CYMBALTA) 60 MG capsule, Take 1 capsule by mouth Daily., Disp: , Rfl: fluticasone (FLONASE) 50 MCG/ACT nasal spray, Administer 1 spray into the nostril(s) as directed byprovider., Disp: , Rfl: furosemide (LASIX) 20 MG tablet, Take 2 tablets by mouth., Disp: , Rfl: metFORMIN (GLUCOPHAGE) 1000 MG tablet, Take 0.5 tablets by mouth Daily With Breakfast. (Patient taking differently: Take 1 tablet by mouth Daily With Breakfast. Takes 100 mg in AM and 500 at night), Disp: , Rfl: pantoprazole (PROTONIX) 40 MG EC tablet, Take 1 tablet by mouth Daily., Disp: , Rfl: tamsulosin (FLOMAX) 0.4 MG capsule 24 hr capsule, Take 1 capsule by mouth Daily., Disp: , Rfl: traMADol (ULTRAM) 50 MG tablet, Take 1 tablet by mouth Every 6 (Six) Hours As Needed., Disp: , Rfl: Past Medical History: Diagnosis Date A-fib Cardiomyopathy CHF (congestive heart failure) 06/26/2023 Diabetes mellitus NIGHAT (obstructive sleep apnea) Past Surgical History: Procedure Laterality Date HIP SURGERY Right 06/14/2023 KIDNEY STONE SURGERY KNEE SURGERY SHOULDER SURGERY History reviewed. No pertinent family history. Social History Socioeconomic History Marital status: Number of children: 1 Tobacco Use Smoking status: Never Passive exposure: Never Smokeless tobacco: Never Vaping Use Vaping status: Never Used Substance and Sexual Activity Alcohol use: Never Drug use: Never Sexual activity: Defer Objective Vital Signs: BP 108/62 Pulse 82 Ht 190.5 cm (75 ) Wt 119 kg (262 lb) SpO2 98% BMI 32.75 kg/m?? Estimated body mass index is 32.75 kg/m?? as calculated from the following: Height as of this encounter: 190.5 cm (75 ). Weight as of this encounter: 119 kg (262 lb). Physical Exam Constitutional: Appearance: Normal appearance. He is well-developed. He is obese. HENT: Head: Normocephalic and atraumatic. Nose: Nose normal. Mouth/Throat: Mouth: Mucous membranes are moist. Eyes: General: No scleral icterus. Pupils: Pupils are equal, round, and reactive to light. Neck: Vascular: No carotid bruit. Cardiovascular: Rate and Rhythm: Normal rate and regular rhythm. Pulses: Normal pulses. Radial pulses are 2+ on the right side and 2+ on the left side. Dorsalis pedis pulses are 2+ on the right side and 2+ on the left side. Posterior tibial pulses are 2+ on the right side and 2+ on the left side. Heart sounds: Normal heart sounds. No murmur heard. Pulmonary: Effort: Pulmonary effort is normal. Breath sounds: Normal breath sounds. No wheezing or rhonchi. Abdominal: General: Bowel sounds are normal. Musculoskeletal: Cervical back: Neck supple. Right lower leg: Right lower leg edema: trace at the ankles. Left lower leg: Left lower leg edema: trace ankles. Skin: General: Skin is warm and dry. Capillary Refill: Capillary refill takes less than 2 seconds. Coloration: Skin is not cyanotic. Nails: There is no clubbing. Neurological: General: No focal deficit present. Mental Status: He is alert. Mental status is at baseline. Motor: No weakness. Gait: Abnormal gait: in a wheel chair. Psychiatric: Mood and Affect: Mood normal. Behavior: Behavior normal. Behavior is cooperative. Cognition and Memory: Memory normal. Assessment and Plan Diagnoses and all orders for this visit: 1. Acute pulmonary embolism, unspecified pulmonary embolism type, unspecified whether acute cor pulmonale present (Primary) Assessment & Plan: Diagnosed with PE on 03/01/2025. CT angio pulmonary positive for pulmonary embolism left lower lobe. He is now on Eliquis 5 mg twice daily He also has a known history of atrial fibrillation. We will plan to continue Eliquis 5 mg twice daily Check labs: CBC, BMP BNP and this can be completed with his [facility]l [facility] or if no other lab draws due in 1 month. 2. Heart failure due to valvular disease, chronic, systolic Assessment & Plan: Known history of chronic systolic heart failure and to severe valve dysfunction EF in June of 2023 noted 35 - 40%. EF October 13, 2024 noted 26 to 30% EF on echo 03/01/2025 during hospitalization noted EF 20% Plan: Collaborated with Dr. Bosch and I have a message for her input Recheck echo in 2 months Office visit in 2 months Continue Lasix Noted that his blood pressure readings are low to normal and I do not suspect that he would tolerate Eliquis or metoprolol or any medication that may lower his blood pressure Orders: - Adult Transthoracic Echo Complete W/ Cont if Necessary Per Protocol; Future 3. Aortic stenosis, moderate Assessment & Plan: He has a known history of moderate aortic stenosis - He has had echo 06/18/2023 - Echo 05/21/2024 - Echo 07/25/2024 - Echo September 2024 Last echo at [facility] 03/01/2025. Discharge summary reports concerning for severe aortic stenosis and severe mitral regurgitation Discussed with patient at this time that may not be a candidate for any valve procedure due to his recent infection, PICC line and long-term antibiotic and pulmonary embolism Plan: Collaborate with Dr. Bosch for input and I have sent her a message Short follow-up in 2 months and repeat the echo Continue Eliquis and Lasix Orders: - Adult Transthoracic Echo Complete W/ Cont if Necessary Per Protocol; Future 4. Central sleep apnea - PAP Therapy Recommendations: Report if any new/changing symptoms immediately Follow Up Return in about 2 months (around 05/20/2025) for CHF/Valve- ECHO same day and afib . Patient was given instructions and counseling regarding his condition or for health maintenance advice. Please see specific information pulled into the AVS if appropriate. documented in this encounter Plan of Treatment Upcoming Encounters Date Type Department Care Team (Late st Contact Info) Description 04/16/2025 3:00 PM EDT Office Visit [facility] [address] [place] [phone] Mandy Giron APRN [address] [address] 05/20/2025 2:15 PM EDT Office Visit [facility] [address] [place] [address] Jocelyne Bosch MD [address] [place] [address] documented as of this encounter Results * ECHO COMPLETE W/ DOPPLER AND COLOR FLOW (04/07/2025 2:24 PM EDT) EF(MOD-bp) 26.8 % LVIDd 6.8 cm LVIDs 6.1 cm IVSd 1.22 cm LVPWd 1.25 cm FS 9.2 % IVS/LVPW 0.98 cm ESV(cubed) 230.3 ml LV Sys Vol (BSA corrected) 70.3 cm2 EDV(cubed) 307.5 ml LV Perez Vol (BSA corrected) 94.3 cm2 LV mass(C)d 396.8 grams LVOT area 4.5 cm2 LVOT diam 2.40 cm EDV(MOD-sp2) 318.0 ml EDV(MOD-sp4) 232.0 ml ESV(MOD-sp2) 219.0 ml ESV(MOD-sp4) 173.0 ml SV(MOD-sp2) 99.0 ml SV(MOD-sp4) 59.0 ml SVi(MOD-SP2) 40.2 ml/m2 SVi(MOD-SP4) 24.0 ml/m2 SVi (LVOT) 18.6 ml/m2 EF(MOD-sp2) 31.1 % EF(MOD-sp4) 25.4 % LA ESV Index (BP) 54.9 ml/m2 TR max urvashi 289.0 cm/sec SV(LVOT) 45.7 ml RVIDd 3.5 cm RV Base 4.4 cm RV Mid 4.5 cm RV Length 8.1 cm TAPSE (>1.6) 1.48 cm RV S' 12.8 cm/sec LA dimension (2D) 4.9 cm LV V1 max 52.5 cm/sec LV V1 max PG 1.10 mmHg LV V1 mean PG 1.00 mmHg LV V1 VTI 10.1 cm Ao pk urvashi 250.5 cm/sec Ao max PG 25.1 mmHg Ao mean PG 16.0 mmHg Ao V2 VTI 54.0 cm JACQUES(I,D) 0.85 cm2 Dimensionless Index 0.19 (DI) MV max PG 4.3 mmHg MV mean PG 3.0 mmHg MV V2 VTI 20.9 cm MV P1/2t 58.0 msec MVA(P1/2t) 3.8 cm2 MVA(VTI) 2.19 cm2 MV dec slope 530.0 cm/sec2 TR max PG 33.4 mmHg RVSP(TR) 41 mmHg RAP systole 8 mmHg PA V2 max 85.0 cm/sec Ao root diam 3.4 cm Sinus 3.3 cm Anatomical Region Laterality Modality Ultrasound Narrative 04/08/2025 4:41 PM EDT Left ventricular systolic function is moderately decreased. Calculated left ventricular EF = 26.8% Left ventricular ejection fraction appears to be 26 - 30%. Left ventricular diastolic function was not assessed. Severe aortic valve stenosis is present. Diminsionless index 0.19. Aortic valve maximum pressure gradient is 25 mmHg. Aortic valve mean pressure gradient is 16 mmHg. Moderate mitral valve regurgitation is present. Mild tricuspid valve stenosis is present. Calculated right ventricular systolic pressure from tricuspid regurgitation is 41 mmHg. Left Ventricle Left ventricular systolic function is moderately decreased. Calculated left ventricular EF = 26.8% Left ventricular ejection fraction appears to be 26 - 30%. Septal wall motion is abnormal, consistent with a bundle branch block. The left ventricular cavity is moderate to severely dilated. Left ventricular wall thickness is consistent with mild concentric hypertrophy. There is left ventricular global hypokinesis noted. Left ventricular diastolic function was not assessed. Right Ventricle The right ventricular cavity is mild to moderately dilated. Right ventricular wall thickness is consistent with mild hypertrophy. Mildly reduced right ventricular systolic function noted. Normal right ventricular septal motion noted. Left Atrium Left atrial volume is severely increased. Right Atrium The right atrial cavity is mildly dilated. Right atrial volume is 33 ml. The inferior vena cava is dilated. The diameter of the inferior vena cava is 2.4 cm. Partial IVC inspiratory collapse of less than 50% noted. Mitral Valve Mild mitral annular calcification is present. There is mild calcification of the mitral valve anterior and posterior leaflet(s). Moderate mitral valve regurgitation is present. No significant mitral valve stenosis is present. Tricuspid Valve The tricuspid valve is normal in structure. Mild tricuspid valve regurgitation is present. Estimated right ventricular systolic pressure from tricuspid regurgitation is mildly elevated (35-45 mmHg). Calculated right ventricular systolic pressure from tricuspid regurgitation is 41 mmHg. Mild tricuspid valve stenosis is present. Aortic Valve The aortic valve is abnormal in structure. There is moderate calcification of the aortic valve. Trace aortic valve regurgitation is present. Moderate to severe aortic valve stenosis is present. Aortic valve maximum pressure gradient is 25.1 mmHg. Aortic valve mean pressure gradient is 16.0 mmHg. Aortic valve dimensionless index is 0.19 . Pulmonic Valve The pulmonic valve is not well visualized. There is no significant pulmonic valve regurgitation present. There is no pulmonic valve stenosis present. Pericardium The pericardium is normal. There is no evidence of pericardial effusion. . Greater Vessels No dilation of the aortic root is present. No dilation of the sinuses of Valsalva is present. No dilation of the proximal aorta is present. The ascending aorta not well visualized. The aortic arch not well visualized. The descending aorta not well visualized. The pulmonary artery not well visualized. Study Quality The study is technically difficult for diagnosis. The quality of the study is limited due to patient body habituswith poor acoustic windows. Bundle branch block was observed for the duration of the procedure. Wall Scoring Score Index: 2.12 The following segments are dyskinetic: mid anteroseptal. The following segments are hypokinetic: basal anterior, basal anteroseptal, basal inferoseptal, basal inferior, basal inferolateral, basal anterolateral, mid anterior, mid inferoseptal, mid inferior, mid inferolateral, mid anterolateral, apical anterior, apical septal, apical inferior, apical lateral and apex. us Mandy Giron RUBBER EXTRUSION MACHINE OPERATOR CV ECHO ORDERABLES Marixa l Result documented in this encounter Visit Diagnoses Diagnosis Acute pulmonary embolism, unspecified pulmonary embolism type, unspecified whether acute cor pulmonale present- Primary Heart failure due to valvular disease, chronic, systolic Aortic stenosis, moderate Central sleep apnea Unspecified sleep apnea Aortic stenosis, moderate Heart failure due to valvular disease, chronic, systolic documented in this encounter Care Teams Internet Marketing Consultant Relationship Specialty Start Date End Date Stephen Chen MD [address] [place] [facility] [address] [place] [address] PCP - General Family Medicine 06/27/23 documented as of this encounter
--- OUTSIDE RECORDS SUMMARY | 2025-03-24 11:00 | XMS_ITS ---
Author Organization [facility] Address [address] [facility] [address] [facility] [address] [place] [id number] Care Team Providers Care Medical Claims Specialist Name Role Phone Grady Chen Unavailable [phone] Allergies No Known Allergies REASON FOR VISIT 3 Month Check Up, Needs Prevnar vaccine Encounters Encounter Location Date Provider Diagnosis Thai [address] [facility] [address] [place] [id number] 03/24/2025 Grady Chen Plan Of Treatment Next Appt Details Provider Name:Grady Farrell et, 04/13/2025 11:32:00 AM, [address], [address], [place], [id number], Progress Notes * YAZMIN TOBARDOB:1935 (89 yo M)Acc No.[id number]:03/24/2025 Progress Notes Patient: YAZMIN GARVEY Provider: Grady Chen M.D. :1935 A ge:89 Y S ex:Male Date:03/24/2025 Address:[id number] Subjective: * Chief Complaints: * 1 . 3 Month Check Up. 2. Needs Prevnar vaccine. * ROS: D ERMATOLOGY: no R tammy. n o H margareth. G ASTROENTEROLOGY: no N ausea. n o V omiting. n o D iarrhea.? U ROLOGY: no D ifficulty urinating. n o B lood in urine. * Medical History: T ype 2 diabetes, [...] hip effusion; T2Dm, CHANTAL; await transfer to [facility] 02/14-02/15/2025, [facility] with right hip abscess; right hip arthrotomy [...] . Alcohol: no. 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 Past smoking status: never smoked. Recreational drug use: no. * Allergies: N .K.D.A. Objective: * Vitals: * P ast Orders: L ab:H-BMP (Order [...] - mg/dl CA 8.6 8.4-10.2 - mg/dl Assessment: Plan: * Treatment: * Images: Billing Information: * Visit Code: * Procedure Codes: * Electronic signature of Grady Chen MD on 04/13/2025 at 12:13 PM EDT Sign off status: Pending * Provider: Grady Chen M.D. Date: 0 03/24/2025 Generated for Emi frias/Rebeca/Yadiitting on: 0 04/13/2025 12:13 PM EDT
--- OUTSIDE RECORDS SUMMARY | 2025-03-24 12:15 | XMS_ITS ---
Author Organization [facility] Address [address] [facility] [address] [place] [id number] Care Team Providers Care Microsoft Office Instructor Name Role Phone Grady Chen Unavailable [phone] Cyndi Patton Unavailable [phone] Allergies No Known Allergies REASON FOR VISIT [facility] VISIT Medications Medication SIG (Take, Route, Frequency, Duration) Notes Start Date End Date Status Biofreeze Cool The Pain 4 % 1 application as needed Externally Three times a day 03/26/2025 Active ceFAZolin Sodium 2 GM as directed Injection every 8 hours Active Atorvastatin Calcium 40 MG 1 tablet Orally Once a day Active Cymbalta 60 MG 1 cap(s) orally once a day Active Flonase Allergy Relief 50 MCG/ACT 2 sprays (1 spray in each nostril) in each nostril Once a day As needed Active Acetaminophen 500 MG 1-2capsule as needed Orally every 4 hours As needed Active metFORMIN HCl 500 MG 1 tablet with a ellie l Orally twice a day Active Eliquis 5 MG 1 tab(s) Orally Two times a day Active CPAP machine and supplies - as directed as directed Active Pantoprazole Sodium 40 MG 1 tab(s) Orally Once a day Active Aspirin 81 MG 1 tablet Orally Once a day Active Calcium Carbonate Antacid 1000 MG s Orally every 8 hours Active Donepezil HCl 5 MG 1 tablet at bedtime Orally Once a day Active Calcium Carb-Cholecalciferol 250-3.125 MG-MCG 1 tablet with a meal Orally Once a day Active Hydrocortisone 1 % 1 application to rash on back./torso Externally Twice a day Active MiraLax 17 GM/SCOOP 1 scoop mixed with 8 ounces of fluid Orally Once a day As needed Active Furosemide 20 MG 1 tablet Orally Once a day Active Polyvinyl Alcohol 1.4 % instill into right eye Ophthalmic twice a day As needed Active Tamsulosin HCl 0.4 MG 1 capsule Orally Once a day Active Paste Base - as directed Snow's msgic butt psste to scrotum and teofilo area Active traMADol HCl 50 MG 1 tablet as needed Orally every 6 hours As needed Active Problems Problem Type SNOMED Code ICD Code Onset Dates Problem Status W/U Status Risk Notes Problem Cervical pain (neck) (M54.2) Active confirmed Vital Signs Blood pressure systolic 110 mm Hg 03/24/20 25 Blood pressure diastolic 65 mm Hg 025 Heart Rate 76 /min 03/24/2025 Respiratory Rate 22 /min 03/24/2025 Weight 262.4 lbs 03/24/2025 Encounters Encounter Location Date Provider Diagnosis [address] [place] [id number] 03/24/2025 Cyndi Patton CHF (congestive hear t failure) [...] ; Environmental allergies Z91.048 ; Dyslipidemia E78.5 ; Debility R53.81 ; Acute neck pain M54.2 and Cervical pain (neck) M54.2 Assessments Encounter Date Diagnosis (ICD Code) Assessment Notes Treatment Notes Treatment Clinical Notes Section Notes 03/24/2025 CHF (congestive heart failure) (ICD-10 - I50.9) 03/24/2025 Atrial fibrillation status post cardioversion (ICD-10 - I48.91) 03/24/2025 Chronic hypoxic respiratory failure (ICD-10 - J96.11) continues with O2 prn continues with O2 prn 03/24/2025 Type 2 diabetes mellitus (ICD-10 - E11.9) [facility] 03/24/2025 Conjunctival hyperemia, right eye (ICD-10 - H11.431) he describes no eye discomfort, just a hole in his vision;he has just seen eye MD with no new meds; he will see a retina specialist 03/24/2025 ASCVD (arteriosclerotic cardiovascular disease) (ICD-10 - I25.10) 03/24/2025 Primary osteoarthritis involving multiple joints (ICD-10 - M89.49) 03/24/2025 HFrEF (heart failure with reduced ejection fraction) (ICD-10 - I50.20) 03/24/2025 Leg edema (ICD-10 - R60.0) Will monitor; with recent ARF and hypotension will not increase; weight gain also noted Will monitor; with recent ARF and hypotension will not increase; weight gain also noted 03/24/2025 Depression (ICD-10 - F32.9) 03/24/2025 History of total right hip replacement (ICD-10 - Z96.641) 03/24/2025 Mild cognitive impairment (ICD-10 - G31.84) 03/24/2025 BPH (benign prostatic hyperplasia) (ICD-10 - N40.0) 03/24/2025 OAB (overactive bladder) (ICD-10 - N32.81) 03/24/2025 Hearing loss (ICD-10 - H91.90) 03/24/2025 PUD (peptic ulcer disease) (ICD-10 - K27.9) 03/24/2025 GERD (gastroesophageal reflux disease) (ICD-10 - K21.9) 03/24/2025 Weakness generalized (ICD-10 - R53.1) 03/24/2025 Surgical aftercare, musculoskeletal system (ICD-10 - Z47.89) to continue with PT; will complete ABX as per surgeon; PICC line with routine care; has labs as per infectious disease MD and FU with surgeon 03/24/2025 Environmental allergies (ICD-10 - Z91.048) 03/24/2025 Dyslipidemia (ICD-10 - E78.5) 03/24/2025 Debility (ICD-10 - R53.81) pt has made progress with PT and will continue 03/24/2025 Acute neck pain (ICD-10 - M54.2) 03/24/2025 Cervical pain (neck) (ICD-10 - M54.2) Plan Of Treatment Medication Medication Name Sig Start Date Stop Date Notes Biofreeze Cool The Pain 4 % 1 applicatio n as needed Externally Three times a day 03/26/2025 ceFAZolin Sodium 2 GM as directed Inject ion every 8 hours Atorvastatin Calcium 40 MG 1 tablet Orally Once a day Cymbalta 60 MG 1 cap(s) orally once a day Flonase Allergy Relief 50 MCG/ACT 2 sprays (1 spray in each nostril) in each nostril Once a day Acetaminophen 500 MG 1-2capsule as neede d Orally every 4 hours Pantoprazole Sodium 40 MG 1 tab(s) Orally Once a day Aspirin 81 MG 1 tablet Orally Once a day Calcium Carbonate Antacid 10 00 MG s Orally every 8 hours Donepezil HCl 5 MG 1 tablet at bedtime Orally Once a day MiraLax 17 GM/SCOOP 1 scoop mixed with 8 ounces of fluid Orally Once a day Furosemide 20 MG 1 tablet Orally Once a day Polyvinyl Alcohol 1.4 % instill into rig ht eye Ophthalmic twice a day Tamsulosin HCl 0.4 MG 1 capsule Orally Once a day traMADol HCl 50 MG 1 tablet as needed O rally every 6 hours Treatment Notes Assessment Notes Chronic hypoxic respiratory failure cont inues with O2 prn continues with O2 prn Type 2 diabetes mellitus [facility] PANTERA, Gluce rna Conjunctival hyperemia, right eye he azalia cribes no eye discomfort, just a hole in his vision;he has just seen eye MD with no [...] as per surgeon; PICC line with routine care; has labs as per infectious disease MD and FU with surgeon Debility pt has made progress with PT and will continue Next Appt Details Follow Up: 2 Weeks, Reason: Provider Name:Grady Prajapati, 04/13/2025 11:32:00 AM, [address], [address], [place], [place], [id number], Progress Notes * YAZMIN TOBARDOB:1935 (89 yo M)Acc No.[id number]:03/24/2025 Progress Notes Patient: YAZMIN GARVEY Provider: BRENNA Mccarthy :1935 A ge:89 Y S ex:Male Date:03/24/2025 Address:[address] [place], [place] [address] [id number] Subjective: * Chief Complaints: * 1 . [facility] HOME VISIT. * HPI: H PI: For routine Senior Care visit; chart reviewed and patient examined; see ROS . * ROS: R ESPIRATORY: no S hortness of breath. n o C hest pain. n o?Chest congestion. n o C ough. C ARDIOLOGY: no C hest pain. L eg edema y es. n o S hortness of breath. G ASTROENTEROLOGY: Positive for s tates he is eating all he wants and is too much, constipation; they have run out ot prune juice which he says always works . n o N ausea. n o V omiting. M USCULOSKELETAL: Joint pain y es, m inimal leg pain; neck really hurts; states he has had neck problems for years. * Medical History: T ype 2 diabetes, [...] hip effusion; T2Dm, CHANTAL; await transfer to [facility] 02/14-02/15/2025, [facility] with right hip abscess; right hip arthrotomy [...] . Alcohol: no. Occupation: College degree in [employer]. 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 Past smoking status: never smoked. Recreational drug use: no. * Medications: T aking Paste Base - Paste as directed , Notes to Pharmacist: Adi dorado butt psste to scrotum and teofilo area, Taking Hydrocortisone 1 % Cream 1 application to rash on back./torso Externally Twice a day , Taking Calcium Carb-Cholecalciferol 250- 3.125 MG-MCG Tablet 1 tablet with a meal Orally Once a day , Taking CPAP machine and supplies - - as directed as directed , Taking Eliquis 5 MG Tablet 1 tab(s) Orally Two times a day , Taking metFORMIN HCl 500 MG Tablet 1 tablet with a meal Orally twice a day , Taking traMADol HCl 50 MG Tablet 1 tablet as needed Orally every 6 hours As needed, Taking Tamsulosin HCl 0.4 MG Capsule 1 capsule Orally Once a day , Taking Polyvinyl Alcohol 1.4 % Solution instill into right eye Ophthalmic twice a day As needed, Taking Furosemide 20 MG Tablet 1 tablet Orally Once a day , Taking MiraLax 17 GM/SCOOP Powder 1 scoop mixed with 8 ounces of fluid Orally Once a day As needed, Taking Donepezil HCl 5 MG Tablet 1 tablet at bedtime Orally Once a day , Taking Calcium Carbonate Antacid 1000 MG Tablet Chewable s Orally every 8 hours , Taking Aspirin 81 MG Tablet Delayed Release 1 tablet Orally Once a day , Taking Acetaminophen 500 MG Capsule 1-2capsule as needed Orally every 4 hours As needed, Taking Pantoprazole Sodium 40 MG Tablet Delayed Release 1 tab(s) Orally Once a day , Taking Flonase Allergy Relief 50 MCG/ACT Suspension 2 sprays (1 spray in each nostril) in each nostril Once a day As needed, Taking Cymbalta 60 MG Capsule Delayed Release Particles 1 cap(s) orally once a day , Taking Atorvastatin Calcium 40 MG Tablet 1 tablet Orally Once a day , Taking ceFAZolin Sodium 2 GM Solution Reconstituted as directed Injection every 8 hours * Allergies: N .K.D.A. Objective: * Vitals: W t: 262.4, Temp: 98.2, BP: 110/65, HR: 76, O2 Sat: 97%, Nurse: reviewde/recorded by sujit, RR: 22. * Examination: G eneral Examination: General Appearance: N AD, alert, pleasant; conversant. H eart: R RR. L ungs: C TAB A&P. A bdomen: b owel sounds present, soft, nontender, no organomegaly or masses, no guarding or rigidity. S kin: e rythema around the right hip surgical site. E xtremities: t race leg edema. N saeid: Paraspinal muscle spasm: p resent bilaterally. R fer of motion of neck: n ormal in all directions. L ABS: date of labs . C reatinine 1 .1. B UN?24. S odium 1 36. P otassium 4 .8. c hloride 9 6. C O2 2 6.?glucose 2 11. c alcium 9 .2. C BC-hgb/hct/wbc 9 .2/28.7/6.12; plt ct [id number]. sed rate 4 5. S GOT/SGPT 1 7/6. a lk phos 1 19. t otal bilirubin 0 .22. a lbumin 3 .5. C RP 5.4. Assessment: * Assessment: 1. C onjunctival hyperemia, [...] E78.5 2 2. D ebility - R53.81 2 3. A cute neck pain - M54.2 2 4. C ervical pain (neck) - M54.2 Plan: * Treatment: 2. C hronic hypoxic respiratory failure Notes: continues with O2 prn continues with O2 prn 3. T ype 2 diabetes mellitus Notes: C[facility] PANTERA, Glucerna 4. A SCVD (arteriosclerotic cardiovascular disease) Continue Aspirin Tablet Delayed Release, 81 MG, 1 tablet, Orally, Once a day. 5. L eg edema Continue Furosemide Tablet, 20 MG, 1 tablet, Orally, Once a day. Notes: Will monitor; with recent ARF and hypotension will not increase; weight gain also noted Will monitor; with recent ARF and hypotension will not increase; weight gain also noted 6. D epression Continue Cymbalta Capsule Delayed Release Particles, 60 MG, 1 cap(s), orally, once a day. ? 7. M ild cognitive impairment Continue Donepezil HCl Tablet, 5 MG, 1 tablet at bedtime, Orally, Once a day. 8. B PH (benign prostatic hyperplasia) Continue Tamsulosin HCl Capsule, 0.4 MG, 1 capsule, Orally, Once a day. 9. P UD (peptic ulcer disease) Continue Calcium Carbonate Antacid Tablet Chewable, 1000 MG, s, Orally, every 8 hours; C ontinue Pantoprazole Sodium Tablet Delayed Release, 40 MG, 1 tab(s), Orally, Once a day. 10. S urgical aftercare, musculoskeletal system Continue traMADol [...] as per surgeon; PICC line with routine care; has labs as per infectious disease MD and FU with surgeon 11. E nvironmental allergies Continue Flonase Allergy Relief Suspension, 50 MCG/ACT, 2 sprays (1 spray in each nostril), in each nostril, Once a day As needed. 12. D yslipidemia Continue Atorvastatin Calcium Tablet, 40 MG, 1 tablet, Orally, Once a day. 13. D ebility Notes: pt has made progress with PT and will continue 14. C ervical pain (neck) Start Biofreeze Cool The Pain Gel, 4 %, 1 application as needed, Externally, Three times a day.? * Follow Up: 2 Weeks * Images: Billing Information: * Visit Code: 13225 subs. level 4. * Procedure Codes: * Electronic signature of Parul Patton APRN on 04/13/2025 at 12:14 PM EDT Sign off status: Pending * Provider: BRENNA Mccarthy Date: 03/24/2025 Generated for Emi frias/Rebeca/Can on: 04/13/2025 12:14 PM EDT History and Physical Notes * Examination Category Sub-Category Detail Notes Category Not es General Examination Heart: RRR Lungs: CTAB A&P Abdomen: bowel sounds present , soft, nontender, no organomegaly or masses, no guarding or rigidity Extremities: trace leg edema General Appearance: NAD, alert, pleasant ; conversant Skin: erythema around the right hip surgical site Neck Paraspinal muscle spasm: present bilatera lly Range of motion of neck: normal in all d irections LABS CBC-hgb/hct/wbc 9.2/28.7/6.12; plt ct 291 000 CRP 5.4 Creatinine 1.1 SGOT/SGPT 17/6 glucose 211 Potassium 4.8 Sodium 136 BUN 24 calcium 9.2 chloride 96 CO2 26 alk phos 119 total bilirubin 0.22 albumin 3.5 date of labs 03/19/2025 sed rate 45
--- OUTSIDE RECORDS SUMMARY | 2025-03-31 15:15 | XMS_ITS | Encounter Summary ---
Author Organization [place] [address] Care Team Providers Care Weight Loss Counselor Name Role Phone No Pcp, Per Patient Primary Care Provider Robyn arshad Reason for Visit * Reason Comments Follow-up Encounter Details Date Type Department Care Team (Latest Contact Info) Description 03/31/2025 3:15 PM EDT Office Visit [facility] [address] [place] [address] [address] [place] [address] [place] [address] [place] [id number] Infection of prosthetic joint, subsequent encounter (Primary Dx); MSSA (methicillin susceptible Staphylococcus aureus) infection Social History Tobacco Use Types Packs/Day Years Used Date Smoking Tobacco: Unknown Tobacco Cessation:Counseling Given: Not Answered [facility] Utilities Answer Date Recorded In the past 12 months has [facility] electric, gas, oil, or water company threatened to shut off services in your home? No 02/16/2025 Overall Financial Resource Strain (CARDIA) Answe r Date Recorded How hard is it for you to pa y for the very basics like food, housing, medical care, and heating? Not very hard 02/16/2025 PHQ-2 Answer Date Recorded PHQ-2 Total Score 0 02/16/2025 [facility] - Occupational Stress [...] money to get more. Never true 02/16/2025 [facility] IP Transportation Answer D ate Recorded [...] Sign Reading Time Taken Comments Blood Pressure 102/68 03/31/2025 3:17 PM EDT Pulse 83 03/31/2025 3:17 PM EDT Temperature 36.5 C (97.7 F) 03/31/2025 3:17 PM EDT Respiratory Rate 18 03/31/2025 3:17 PM EDT Oxygen Saturation 87% 03/31/2025 3:17 PM EDT Inhaled Oxygen Concentration - - Weight - - Height 193 cm (6' 4 ) 03/31/2025 3:17 PM EDT Body Mass Index - - documented in this encounter Progress Notes * Nick Elkins MD - 03/31/2025 3:15 PM EDT Images from the original note were not included. [facility] Office Note Patient follow up Visit Chief Complaint: FU Right Hip Prosthetic Infection The provider educated the patient (or legal treasury representative) on the use of the ambient listening artificial intelligence tool, [employer]. They were informed that this AI tool processes the conversation to generate a clinical note with the expected benefit of improved accuracy while achieving an improved encounter experience for the patient and provider.?The provider explained that the medical information captured by the AI tool including, but not limited to, diagnoses and treatment plan would be protected in accordance with applicable privacy laws and that all diagnoses and treatment decisions would be made by the provider. The provider explained that the note generated will be reviewed bythe provider for accuracy to minimize potential errors.? The patient was given an opportunity to ask questions and opt out of proceeding with the use of the AI tool. After being informed of such information, the patient (or legal treasury representative), and each individual in attendance with the patient, verbally consented to the use of the AI tool. 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 Per review of medical records he had a staph aureus infection and he was treated with 6 [...] obtained. 02/19 Synovasure was positive as expected VISIT 03/31/25: The patient presented for follow-up of his right hip prosthetic joint infection. Hereported no fever or chills. He has been receiving intravenous antibiotics, which are scheduled to continue until 04/05/2025. The wound was examined and found to be red and indurated, although no fluid was noted. The patient mentioned that the wound has worsened since his last visit. Laboratory results show a CRP level of 12, which is slightly above the normal range of 2 to 10.5, and an ESR of 41, which is elevated beyond the normal range of 0 to 20. The white blood cell count is within normal limits. # Episode of Rapid Response on 03/01/25: [...] Heart failure Plan - Continue IV Cefazolin will extend therapy for 4 more weeks until 05/03/25 - May need to consider suppressive dose after. - Avoided rifampin due to apixaban - Remove PICC once IV ABX completed - Monitor CBC, CMP, ESR and CRP - Needs to follow with Orthopedics - Will follow up in 4 weeks. HISTORY OF PRESENT ILLNESS - SUBJECTIVE History of Present Illness The patient presents for a follow-up of a right hip prosthetic joint infection. He reports feeling well overall, with the exception of a stomach issue for which he was prescribed medication. He has been attending physical therapy sessions and can tolerate up to 4 to 12 repetitions. He is not experiencing any fevers or chills. His antibiotic treatment will continue until Sunday. A sore spot on his hip was first noticed on 03/28/2025. The soreness is intermittent and does not persist. He reports no fluid discharge from the area. MEDICAL HISTORY Allergies Allergen Reactions Tetanus Vaccines And Toxoid Swelling Pt also states blisters with swelling No past medical history on file. Past Surgical History: Procedure Laterality Date BEDSIDE PICC INSERTION (PICC TEAM RN) 02/26/2025 TOTAL HIP ARTHROPLASTY Right 02/22/2025 Right hip Incision & Drainage with head/liner exchange; Surgeon: Mason Jacome DO; Location:[facility]; Service: Orthopedics Social Drivers of Health Tobacco Use: Low Risk (03/19/2025) Received from [facility] Patient History Smoking Tobacco Use: Never Smokeless Tobacco Use: Never Passive Exposure: Never Alcohol Use: Not on file (08/02/2024) Financial Resource Strain: Low Risk (02/16/2025) Overall Financial Resource Strain (CARDIA) Difficulty of Paying Living Expenses: Not very hard Food Insecurity: No Food Insecurity (02/16/2025) Hunger Vital Sign Worried About Running Out of Food in the Last Year: Never true Ran Out of Food in the Last Year: Never true Transportation Needs: No Transportation Needs (02/16/2025) [facility] IP Transportation In the past 12 months, has lack of reliable transportation kept you from medical appointments, meetings, work or from getting things needed for daily living?: No Physical Activity: Inactive (02/16/2025) Exercise Vital Sign Days of Exercise per Week: 0 days Minutes of Exercise per Session: 0 min Stress: No Stress Concern Present (02/16/2025) [facility] - Occupational Stress Questionnaire Feeling of Stress : Only a little Social Connections: Not At Risk (07/08/2024) Received from [facility] Family and Community Support If for any reason you need help with day-to-day activities such as bathing, preparing meals, shopping, managing finances, etc., do you get the help you need?: I don't need any help How often do you feel lonely or isolated from those around you?: Never Intimate Partner Violence: Not At Risk (07/08/2024) Received from [facility] Abuse Screen Feels Unsafe at Home or Work/School: no Feels Threatened by Someone: no Does Anyone Try to Keep You From Having Contact with Others or Doing Things Outside Your Home?: no Physical Signs of Abuse Present: no Depression: Not at risk (02/16/2025) PHQ-2 PHQ-2 Score: 0 Housing Stability: Not At Risk (07/08/2024) Received from [facility] Housing Stability Current Living Arrangements: home Potentially Unsafe Housing Conditions: none Utilities: Not At Risk (02/16/2025) [facility] Utilities Threatened with loss of utilities: No Health Literacy: Not At Risk (07/08/2024) Received from [facility] Education Do you want help with school or training? For example, starting or completing job training or getting a high school diploma, GED or equivalent: No Preferred Language: Latvian No family history on file. Immunization History Administered Date(s) Administered Influenza Vaccine Trivalent Adjuvanted PF 08/06/2020 Moderna SARS-CoV-2 Vaccine 12+ Yrs (Light blue border) 11/18/2020, 06/09/2021 Moderna SARS-CoV-2 Vaccine 12+ Yrs Spikevax 08/24/2023 Quadrivalent Influenza High Dose 06/24/2021 Current Outpatient Medications: apixaban (ELIQUIS) 5 mg Oral Tablet, Take 1 Tablet by mouth 2 times daily., Disp: 60 Tablet, Rfl: 2 aspirin 81 mg Oral Tablet, Delayed Release (E.C.), Take 1 Tablet by mouth daily., Disp: 60 Tablet, Rfl: 0 atorvastatin (LIPITOR) 40 mg Oral Tablet, Take 40 mg by mouth daily., Disp: , Rfl: calcium carbonate-vitamin D3 250 mg-3.125 mcg (125 unit) Oral Tablet, Take 1 Tablet by mouth daily., Disp: , Rfl: ceFAZolin in dextrose (ANCEF) 2 gram/100 mL IV Piggyback, Inject 100 mL into the vein every 8 hoursfor 113 doses., Disp: , Rfl: donepeziL (ARICEPT) 5 mg Oral Tablet, Take 5 mg by mouth nightly., Disp: , Rfl: DULoxetine (CYMBALTA) 60 mg Oral Capsule, Delayed Release(E.C.), Take 60 mg by mouth daily., Disp: , Rfl: fluticasone propionate (FLONASE) 50 mcg/actuation Nasl [place], Suspension, 2 Sprays by Nasal route 2times daily as needed for Allergies., Disp: , Rfl: fUROsemide (LASIX) 20 mg Oral Tablet, Take 20 mg by mouth daily., Disp: , Rfl: ketorolac (ACULAR) 0.5 % Opht Drops, Place 1 Drop into the right eye 4 times daily., Disp: 5 mL, Rfl: 0 metFORMIN (GLUCOPHAGE) 500 mg Oral Tablet, Take 500 mg by mouth 2 times daily., Disp: , Rfl: pantoprazole (PROTONIX) 40 mg Oral Tablet, Delayed Release (E.C.), Take 1 Tablet by mouth daily., Disp: 30 Tablet, Rfl: 0 polyethylene glycol (GLYCOLAX, MIRALAX) 17 gram Oral Powder in Packet, Take 17 g by mouth daily as needed for Constipation., Disp: 30 Packet, Rfl: 0 polyvinyl alcohol (LIQUIFILM TEARS) 1.4 % Opht Drops, Place 1 Drop into both eyes as needed for DryEyes., Disp: , Rfl: tamsulosin (FLOMAX) 0.4 mg Oral Capsule, Take 0.8 mg by mouth daily., Disp: , Rfl: traMADoL (ULTRAM) 50 mg Oral Tablet, Take 1 Tablet by mouth every 6 hours as needed for Pain., Disp: 20 Tablet, Rfl: 0 REVIEW OF SYSTEMS As noted above. PHYSICAL EXAM - OBJECTIVE Vitals: 03/31/25 1517 BP: 102/68 Pulse: 83 Resp: 18 Temp: 97.7 ??F (36.5 ??C) SpO2: (!) 87% General Appearance: Alert, cooperative, no distress Head: Normocephalic Eyes: conjunctiva/corneas clear Nose: Nares normal Mouth: mucosa moist, teeth and gums normal Lungs: Good AE B/L, respirations unlabored Heart: Regular rate and rhythm, S1 and S2 normal, no murmur, rub or gallop Abdomen: Soft, non-tender, bowel sounds active all four quadrants, no masses or organomegaly Extremities: Extremities normal, atraumatic, no cyanosis or edema Skin: Skin color, texture, turgor normal, no rashes or lesions Neurologic: Grossly normal Wounds: Right hip wound looks red and indurated PICC Line: present Media Information Document Information Clinical Images Right Hip 03/31/2025 15:35 Attached To: Office Visit on 03/31/25 with Nick Elkins MD Source Information Nick Elkins MD Sep Infect Disease [facility] Document History Image taken with permission. LABS The following LABS were reviewed: . Labs: LABS 03/31/25 ESR - 41 CRP 12.1 (0.2 - 10.5) Hgb 9.4 Imaging: - Discussed with patient and son above diagnosis, treatment plan, educating and counseling the patient. Patient expressed understanding Nick Mandujano MD documented in this encounter Plan of Treatment Upcoming Encounters Date Type Department Care Team (Late st Contact Info) Description 04/28/2025 3:45 PM EDT Office Visit [facility] [address] [place] [phone] Nick Elkins MD [address] [place], [place] [id number] documented as of this encounter Visit Diagnoses Diagnosis Infection of prosthetic joint, subsequent encounter- Primary MSSA (methicillin susceptible Staphylococcus aureus) infection Methicillin susceptible Staphylococcus aureus in conditions classified elsewhere and of unspecified site documented in this encounter Historical Medications * This list may reflect changes made after this encounter. acetaminophen (TYLENOL) 500 mg Oral Tablet Take 500 mg by mouth every 4 hours as needed for Pain (1-2 tablets Q4H PRN). added in this encounter Care Teams Weight Loss Counselor Relationship Specialty Start Date End Date No Pcp, Per Patient PCP - General 02/16/25 documented as of this encounter
--- OUTSIDE RECORDS SUMMARY | 2025-04-07 13:30 | XMS_ITS | Encounter Summary ---
Author Organization [facility] Address [address] [place] [address] Care Team Providers Care Orchid Worker Name Role Phone Stephen Chen MD Primary Care Provider Reason for Visit * Diagnostic Imaging (Routine) - Closed Specialty Diagnoses / Procedures Referred By Contac t Referred To Contact Cardiology Diagnoses Aortic stenosis, moderate Heart failure due to valvular disease, chronic, systolic Procedures Adult Transthoracic Echo Complete W/ Cont if Necessary Per Protocol Mandy Giron, ROLLER COASTER ENGINEER [address] [place] [address] Phone: tel: fax: [facility] [address] [place] [address] Phone: tel: fax: Referral ID Status Reason Start Date Expiration Date Visits Re quested Visits Authorized [id number] Closed 03/19/2025 06/18/2026 1 1 Encounter Details Date Type Department Care Team (Latest Contact Info) Description 04/07/2025 1:30 PM EDT Ancillary Procedure [facility] [address] [place] [id number] Aortic stenosis, moderate; Heart failure due to valvular disease, chronic, systolic Social History Tobacco Use Types Packs/Day Years Used Date Smoking Tobacco: Never Passive Smoke Exposure: Never Smokeless Tobacco: Never Alcohol Use Standard Drinks/Week Comments Never 0 (1 standard drink = 0.6 oz pur e alcohol) [facility] Utilities Answer Date Recorded In the past 12 months has [employer] electric, gas, oil, or water company threatened [...] and heating? Not hard at all 07/08/2024 [facility] - Occupational Stress [...] GED or equivalent No 07/08/2024 Preferred Language Luxembourgish 07/08/2024 PHQ-2 Answer Date Recorded Patient Health Questionnaire-2 Score 0 07/08/2024 Sex and Gender Information Value Date Recorded Sex Assigned at Not on file Legal Sex Male 10:35 AM EDT Gender Identity Not on file Sexual Orientation Not on file documented as of this encounter Last Filed Vital Signs Vital Sign Reading Time Taken Comments Blood Pressure - - Pulse - - Temperature - - Respiratory Rate - - Oxygen Saturation - - Inhaled Oxygen Concentration - - Weight 119 kg (262 lb) 04/07/2025 1:37 PM EDT Height 190.5 cm (6' 3 ) 04/07/2025 1:37 PM EDT Body Mass Index 32.75 04/07/2025 1:37 PM EDT documented in this encounter Plan of Treatment Upcoming Encounters Date Type Department Care Team (Late st Contact Info) Description 04/16/2025 3:00 PM EDT Office Visit [facility] [address] [place] [phone] Mandy Giron, LEESA [address] [place] [address] 05/20/2025 2:15 PM EDT Office Visit [facility] [address] [place] [address] Jocelyne Bosch MD [address] [place] [address] documented as of this encounter Procedures Procedure Name Priority Date/Time Associated Diagnosis Comments ECHO COMPLETE W/ DOPPLER AND COLOR FLOW Routine 04/07/2025 2:24 PM EDT Aortic stenosis, moderate Heart failure due to valvular disease, chronic, systolic documented in this encounter Results * ECHO COMPLETE W/ [...] septal, apical inferior, apical lateral and apex. Mandy Tripathi Giron ROLLER COASTER ENGINEER CV ECHO ORDERABLES Marixa l Result documented in this encounter Visit Diagnoses Diagnosis Aortic stenosis, moderate Heart failure due to valvular disease, chronic, systolic documented in this encounter Care Teams Orchid Worker Relationship Specialty Start Date End Date Stephen Chen MD [address] [place] [facility] [address] [place] [address] PCP - General Family Medicine 06/27/23 documented as of this encounter
[2025-04-13] VITALS (11 sets, daily range): BP systolic 98–141; BP diastolic 60–105; PULSE 60–98; RESP 15–24; TEMP 36.6–36.9; O2SAT 92–98; BMI 34.4
--- NOTE | 2025-04-13 12:08 | ECG_ITS ---
APPROVED REPORT Exam: Resting ECG HR:88 bpm ECG Measurements Heart Rate 88 AXES QRSd 149 QRS -33 QT 398 T 114 QTc 443 Conclusion ATRIAL FIBRILLATION WITH ABERRANT CONDUCTION OR VENTRICULAR PREMATURE COMPLEXES LEFT AXIS DEVIATION [QRS AXIS < -30] LEFT BUNDLE BRANCH BLOCK [120+ ms QRS DURATION, 80+ ms Q/S IN V1/V2, 85+ ms R IN I/aVL/V5/V6] Electronically signed by : POLA QUEZADA, 04/13/2025 14:39:00
--- OUTSIDE RECORDS SUMMARY | 2025-04-13 12:12 | XMS_ITS | Continuity of Care Document ---
Author Organization [facility]. If a dditional information is needed, contact Health Information Management at [phone] Address [address] [place] [address] Phone Care Team Providers Care Highway Engineering Technician Name Role Phone Unavailable Unavailable Unavailable Unavailable Unavailable Unavailable Problems Altered behavior Onset:12-Mar-2018 Ashwin Flynn Status:Acute Functional Status Functional finding 19-Mar-2018 Functional finding 17-Mar-2018 Functional finding 17-Mar-2018 Functional finding 17-Mar-2018 Allergies and Adverse Reactions Tetanus&Diphtheria Toxoid(Al lergy) Onset: 12-Mar-2018 Reaction:Rash-Hives Medications tamsulosin hydrochloride 0.4 MG Oral Capsule [Flomax];1 TAB ORAL Daily Start:18-Mar-2018 Comments:1 tab PO DAILY furosemide 20 mg tablet;20 M [...] a Day Start:18-Mar-2018 Comments:500 mg PO BID glyBURIDE 5 MG Oral Tablet;5 MG ORAL [...] Daily Start:06-Sep-2015 Status:Aborted Comments:1 tab PO DAILY Zestril;2.5 MG ORAL Daily Start:06-Sep-2015 Status:Aborted Comments:2.5 mg PO DAILY Social History Smoking Status Never smoked tobacco Recorded: 19-Mar-2018
--- OUTSIDE RECORDS SUMMARY | 2025-04-13 12:14 | XMS_ITS | Referral Summary ---
Author Organization [employer] ([place], [place], [place], [place]) Address [address] [place] [address] Care Team Providers Care Director Agency & Strategic Partnerships Name Role Phone Stephen Chen MD Primary Care Provider [phone] Allergies Active Allergy Reactions Criticality Noted Date Comments Diphth,Pertus(Acell),Tetanu s Hives High 09/25/2023 Lisinopril 09/25/2023 Patient cannot remember Tetanus And Diphtheria Toxoids Hives High 08/06/2023 Diphtheria,Pertussis,Tetanu s Hives High 09/25/2023 Medications tamsulosin (Flomax) 0.4 mg Cap 24 hr capsule Take 1 capsule (0.4 mg total) by mouth daily. Active multivit,stress formula-zinc (b zsvodib-K-C-zinc ) Tab Take 1 tablet by mouth daily. Active metoprolol succinate (TOPROL-XL) 25 MG 24 hr tablet Take 1 tablet (25 mg total) by mouth daily. 3 Active hydroCHLOROthiaz sam (HYDRODIURIL) 25 MG tablet Take 1 tablet (25 mg total) by mouth daily. 3 Active fluticasone propionate (FLONASE) 50 mcg/actuation nasal spray 1 spray by Nasal route. Active DULoxetine (CYMBALTA) 60 MG capsule Take 1 capsule (60 mg total) by mouth daily. 3 Active donepeziL (ARICEPT) 5 MG tablet Take 1 tablet (5 mg total) by mouth daily. 3 Active dapagliflozin propanediol (Farxiga) 10 mg tablet Take 1 tablet (10 mg total) by mouth. 3 Active atorvastatin (LIPITOR) 40 MG tablet Take 1 tablet (40 mg total) by mouth daily. 3 Active atogepant (Qulipta) 60 mg Tab Take 1 tablet by mouth daily. 3 Active aspirin 81 MG EC tablet Take 1 tablet (81 mg total) by mouth daily Take aspirin for 7 days. Discontinue afterward and restart Eliquis at previous dose. 7 tablet 4 Active apixaban (Eliquis) 5 mg Tab tablet Take 1 tablet (5 mg total) by mouth 2 (two) times daily. 0 4 Active metFORMIN (GLUCOPHAGE) 1000 MG tablet Take 0.5 tablets (500 mg total) by mouth daily with breakfast HOLD for 2 days post-cath. 0 4 Active Active Problems Problem Noted Date Diagnosed Date Chest pain 09/27/2023 Typical angina 09/26/2023 09/26/2023 Transformed migraine 09/26/2023 09/26/2023 Tinnitus of both ears 09/26/2023 09/26/2023 Rhinorrhea 09/26/2023 09/26/2023 Polypharmacy 09/26/2023 09/26/2023 Obesity with body mass index 30 or greater 09/2609/26/2023 Nocturia more than twice per night 09/26/2023 09/26/2023 Neck pain 09/26/2023 09/26/2023 Macrocytosis without anemia 09/26/202309/17 Hyperglycemia due to diabetes mellitus 09/26/2023 High anion gap metabolic acidosis 09/26/2023 09/26/2023 Hematuria 09/26/2023 09/26/2023 Hearing loss 09/26/2023 09/26/2023 Generalized weakness 09/26/2023 09/26/2023 Gaseous distention of intestine determined by X- ray 09/26/2023 09/26/2023 Forehead laceration 09/26/2023 09/26/2023 Ethmoid sinusitis 09/26/2023 09/26/2023 Enlarged prostate 09/26/2023 09/26/2023 Increasing shortness of breath 09/26/2023 0 09/26/2023 Dyspnea 09/26/2023 09/26/2023 Dizziness 09/26/2023 09/26/2023 Depression 09/26/2023 09/26/2023 Constipation 09/26/2023 09/26/2023 Cervical spondylosis 09/26/2023 09/26/2023 Cellulitis of right lower extremity 09/26/2023 09/26/2023 Bradycardia 09/26/2023 09/26/2023 Body fluid retention 09/26/2023 09/26/2023 Angioedema 09/26/2023 09/26/2023 Abnormal result of cardiovascular function study 09/26/2023 09/26/2023 Abdominal wall cellulitis 09/26/20232023 Coronary artery disease invo lving [place] coronary artery of [place] heart without angina pectoris 09/26/2023 Bilateral leg edema 08/14/2023 09/26/2023 Chronic HFrEF (heart failure with reduced ejection fraction) 06/28/2023 09/26/2023 Obstructive sleep apnea syndrome 06/27/2023 09/26/2023 Hyperlipidemia 06/27/2023 09/26/2023 DM2 (diabetes mellitus, type 2) 06/27/2023 09/26/2023 Bilateral carotid artery disease 06/27/2023 09/26/2023 Overview (09/26/2023): Reportedly history of mild to moderate bilateral carotid artery disease. Data deficit Atrial fibrillation with RVR 06/26/202306/2024 Overview (09/26/2023): New onset atrial fibrillation 06/26/2023 [id number] RIMA/ECV (06/27/2023): Successful conversion to NSR Last Assessment & Plan: EKG today shows atrial fibrillation with rapid ventricular response, heart rate 103 bpm. Patient has no previous history of atrial fibrillation. There was no documentation of patient being in atrial fibrillation during recent hospitalization. Patient reports that he does not feel well today and feels weak. We discussed treating him outpatient with amiodarone and Eliquis versus ER evaluation/inpatient treatment. Patient feels like going to the hospital would be the best option for him, he lives by himself and has difficulty managing his medications. He also is having worsening symptoms. - Patient was sent to [facility] ER via wheelchair for further evaluation. Report called to ER physician. - Follow-up in [address] Bosch. Aortic stenosis, moderate 06/26/20232023 Overview (09/26/2023): Echo (06/18/2023): LVEF 35-40%. Moderate aortic stenosis with mean gradient 11 mmHg. Mild pericardial effusion without tamponade Last Assessment & Plan: Moderate aortic stenosis noted on recent echocardiogram. - Repeat echo in 1 year. Renal insufficiency 11/14/2022 09/26/2023 Prostate nodule 11/14/2022 09/26/2023 BPH (benign prostatic hyperplasia) 11/14/2022 09/26/2023 Arteriosclerosis of coronary artery 01/31/2021 09/26/2023 Overview (09/26/2023): Cardiac cath (2015): Mild luminal irregularities Cardiac cath with PCI x1 by Dr. East at [facility].. Data deficit Social History Tobacco Use Types Packs/Day Years Used Date Smoking Tobacco: Never Smokeless Tobacco: Never Tobacco Cessation:Counseling Given: Not Answered Alcohol Use Standard Drinks/Week Comments Not Currently 0 (1 standard drink = 0.6 oz pur e alcohol) PRAPARE - Transportation Answer Date Re corded In the past 12 months, has l ack of transportation kept you from medical appointments or from getting medications? No 09/26/2023 Lack of Transportation (Non-Medical) Not on file 09/26/2023 Utilities Answer Date Recorded In the past 12 months, has t he electric, gas, oil, or water company threatened to shut off services in your home? No 09/26/2023 Food Insecurity Answer Date Recorded Within the past 12 months, y ou worried that your food would run out before you got money to buy more. Never true 09/26/2023 Within the past 12 months, t he food you bought just didn't last and you didn't have money to get more. Never true 09/26/2023 Transportation Needs Answer Date Record ed In the past 12 months, has l ack of reliable transportation kept you from medical appointments, meetings, work or from getting things needed for daily living? No 09/26/2023 Financial Resource Strain Answer Date R ecorded How hard is it for you to pa y for the very basics like food, housing, medical care, and heating? Would you say it is: Not hard at all 09/26/2023 Employment Answer Date Recorded Do you want help finding or keeping work or a job? I do not need or want help 09/26/2023 Family and Community Support Answer Gregg e Recorded If for any reason you need h elp with day-to-day activities such as bathing, preparing meals, shopping, managing finances, etc., do you get the help you need? I don't need any help 09/26/2023 Feeling Lonely or Isolated 0 09/26 Educational Attainment Answer Date Estevan rded Do you speak a language other than [place] at [facility]? No 09/26/2023 Do you want help with school or training? For example, starting or completing job training or getting a high school diploma, GED or equivalent. No 09/26/2023 Physical Activity Answer Date Recorded Number of minutes of exercise per week 210 09/26/2023 Substance Use Answer Date Recorded How many times in the past y ear have you used prescription drugs for non-medical reasons? Never 09/26/2023 How many times in the past year have you used [place] legal drugs? 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 Gender Identity Not on file Sexual Orientation Not on file Last Filed Vital Signs Vital Sign Reading Time Taken Comments Blood Pressure 107/64 09/27/2023 11:53 AM EST Pulse 70 09/27/2023 11:53 AM EST Temperature 36.8 C (98.2 F) 09/27/2023 11:53 AM EST Respiratory Rate 18 09/27/2023 11:53 AM EST Oxygen Saturation 92% 09/27/2023 11:53 AM EST Inhaled Oxygen Concentration - - Weight 122.5 kg (270 lb) 09/26/2023 9:58 AM EST Height 193 cm (6' 4 ) 09/26/2023 9:58 AM EST Body Mass Index 32.87 09/26/2023 9:58 AM EST Plan of Treatment Not on file Insurance [facility] MEDIC[facility] ADVANTAGE Advance Directives For more information, please contact: [phone] * Full Code (Latest Code Status on File) Date Activated Date Inactivated Comments 09/26/2023 11:26 AM 09/27/2023 1:06 PM * Full Code Date Activated Date Inactivated Comments 09/26/2023 8:32 AM 09/26/2023 11:26 AM Care Teams Director Agency & Strategic Partnerships Relationship Specialty Start Date End Date Stephen Chen MD [address] [place] [address] PCP - General Family Medicine 09/26/23
--- OUTSIDE RECORDS SUMMARY | 2025-04-13 12:14 | XMS_ITS | Clinical Summary ---
Author Organization [facility] Address [address] [facility] [address] [place] [address] Phone Care Team Providers Care Aperture Mask Etcher Name Role Phone Ronnie Braga MD [phone] [ ] Conditions or Problems Problem Name Problem Code Onset Date Status Entry Date Provider Comment Standard Description Annotate Oxacillin susceptible staph aureus Sepsis A40.8 (ICD-10-CM) 09/26 Active 09/26 Blanca Maciel Other streptococcal sepsis MSSA Sepsis A41.01 (ICD-10-CM) 09/26 Active 09/26 Blanca Maciel Sepsis due to Methicillin susceptible Staphylococcus aureus Bullous disorder 0493086 (SNOMED CT) 09/26 Active 09/26 Blanca Maciel Bullous dermatosis Hip, right, subsequent encounter(s), 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 T84.51xD (ICD-10-CM) 09/26 Active 09/26 Blanca Maciel Infection and inflammatory reaction due to internal right hip prosthesis, subsequent encounter Cellulitis of RLE 914167441 (SNOMED CT) 09/26 Active 09/26 Blanca Maciel Cellulitis of lower limb DM Type II E11.9 (ICD-10-CM) 09/26 Active 09/26 Blanca Maciel Type 2 diabetes mellitus without complications Benign Essential Hypertension 25577437 (SNOMED CT) 09/26 Active 09/26 Blanca Maciel Benign hypertension Medications Medication Instructions Start Date Stop Date Generic Name NDC Provider AQUAPHOR OINT to skin twice a day mineral oil-hydrophil petrolat 10792746989 Gail Melvin ATORVASTATIN CALCIUM 40 MG TABS by mouth once a day atorvastatin 35686165517 Gail Villvero BENADRYL ALLERGY 25 MG TABS by mouth once a day diphenhydramine hcl 55311115795 Gail Melvin Lactobac 2-Bifido 1-S. therm 112.5 billion cell capsule by mouth once a day lactobac 2-bifido 1-s. therm Gail Ngozi CEPHALEXIN 500 MG TABS by mouth twice a day cephalexin 66645735608 Gail Melvin COLCHICINE 0.6 MG TABS by mouth twice a day colchicine 01975278716 Gail Melvin Lax Stool Softener With Senna 8.6-50 mg tablet 2 tablet by mouth once a day sennosides-docusa te sodium 99754134741 Gail Melvin DONEPEZIL HCL 5 MG TABS by mouth once a day donepezil 50910968236 Gail Melvin duloxetine 30 mg capsule, delayed rel sprinkle by mouth once a day duloxetine Gail Melvin FINASTERIDE 5 MG TABS by mouth once a day finasteride 07803318003 Gail Melvin ALLERGY SPRAY 24 HOUR 50 MCG/ACT SUSP 1 spray intranasally once a day fluticasone propionate 43525689023 Gail Melvin FUROSEMIDE 20 MG TABS by mouth once a day as needed furosemide 52896185152 Gail Melvin Glucotrol XL 2.5 mg tablet extended release 24hr 2 tablet by mouth once a day glipizide 69155619938 Gail Melvin LORATADINE 10 MG TABS by mouth once a day loratadine 20526657712 Gail Melvin METFORMIN HCL 500 MG TABS by mouth twice a day metformin 26362643655 Gail Melvin miconazole nitrate 2% aerosol powder to skin twice a day miconazole nitrate 84471158408 Gail Melvin MIRALAX 17 GM/SCOOP POWD by mouth once a day polyethylene glycol 3350 81072448869 Gail Melvin OXYCODONE HCL 5 MG TABS by mouth every six hours oxycodone 07066260128 Gail Melvin TAMSULOSIN HCL 0.4 MG CAPS by mouth once a day tamsulosin 79966261574 Gail Melvin Medications Administered No information available. Allergies, Adverse Reactions, Alerts Allergy Name Reaction Description Start Date Severity Statu s Provider DIPHTHERIA-TETANUS TOXOIDS DT Moderate Active Gail Barron ran LISINOPRIL Moderate Active Chelsie Melvin Results Date Name Value Unit Range Flag Description Clinical Lists Update: Prelo ad MEDS REVIEW Done Documenta tion of current medications (procedure) VAPE_USE Never Tobacco smok ing status ORALTOBACUSE Never Tobacco smoking status SMOK STATUS Never smoker Toba insurance account manager smoking status Plan of Care No information available. Procedures No information available. Vital Signs No information available. Immunizations No information available. Advance Directives No information available.
--- OUTSIDE RECORDS SUMMARY | 2025-04-13 12:14 | XMS_ITS | Encounter Summary ---
Author Organization Healthcare Address [address] [place] [address] Care Team Providers Care Electro Optics Engineer Name Role Phone Pcp, No Primary Care Provider Unavailabl e Encounter Details Date Type Department Care Team (Late st Contact Info) Description 10/09/2023 Community Orders Community Practice [address] [place] [address] Niki De La Rosa MD [address] [facility] [address] [place] [address] Social History Tobacco Use Types Packs/Day Years Used Date Smoking Tobacco: Never Alcohol Use Standard Drinks/Week Comments Yes 0 (1 standard drink = 0.6 oz pur e alcohol) CAGE ASSESSMENT Answer Date Recorded Cage unable to access Not on file 08/09/2022 Maximum number of drinks you had on a given occasion in the last month? 0 drinks 08/09/2022 How many alcoholic Beverages do you typically drink in a week? 0 - 7 per week 08/09/2022 Have you ever felt you should CUT down on your d rinking? 0 08/09/2022 Have you been ANNOYED by peo ple criticizing your drinking? 0 08/09/2022 Have you felt GUILTY about your drinking? 0 08/09/2022 Have you had a drink first t nicol in the morning ([employer]) to steady your nerves or to get rid of a hangover? 0 08/09/2022 CAGE Questionnaire Score 0 022 Sex and Gender Information Value Date Recorded Sex Assigned at Not on file Legal Sex Male 7:28 PM EDT Gender Identity Not on file Sexual Orientation Not on file documented as of this encounter Plan of Treatment Not on file documented as of this encounter Visit Diagnoses Not on filedocumented in this encounter Care Teams Electro Optics Engineer Relationship Specialty Start Date End Date Pcp, No [address] [place] [address] PCP - General Family Medicine 08/08/22 documented as of this encounter
--- OUTSIDE RECORDS SUMMARY | 2025-04-13 12:14 | XMS_ITS | Clinical Summary ---
Author Organization [employer] ([place], [place], [place], [place]) Address [address] [place] [address] Care Team Providers Care Layout Former Name Role Phone Stephen Chen MD Primary Care Provider [phone]- [phone] Allergies Active Allergy Reactions Criticality Noted Date Comments Diphth,Pertus(Acell),Tetanu s Hives High 09/25/2023 Lisinopril 09/25/2023 Patient cannot remember Tetanus And Diphtheria Toxoids Hives High 08/06/2023 Diphtheria,Pertussis,Tetanu s Hives High 09/25/2023 Medications tamsulosin (Flomax) 0.4 mg Cap 24 hr capsule Take 1 capsule (0.4 mg total) by mouth daily. Active multivit,stress formula-zinc (b dmfmuok-Y-Q-zinc ) Tab Take 1 tablet by mouth [...] cellulitis 09/26/20232023 Coronary artery disease invo lving [place] coronary artery of [place] heart without angina pectoris 09/26/2023 Bilateral leg [...] Overview (09/26/2023): New onset atrial fibrillation 06/26/2023 [id number] RIMA/ECV (06/27/2023): Successful conversion to NSR Last [...] worsening symptoms. - Patient was sent to [facility] ER via wheelchair for further evaluation. Report [...] with PCI x1 by Dr. East at [facility].. Data deficit Social History Tobacco Use Types [...] Do you speak a language other than Marshallese at [facility]? 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 Gender Identity Not on file Sexual Orientation [...] 09/26/2023 9:58 AM EST Plan of Treatment Health Maintenance Due Date Last Done Comments Diabetic Eye Exam 11/30/1945 Pneumococcal 50+ years (1 of 2 - PCV) 1956 Shingles Vaccine (Zoster) (1 of 2) 11/30/1987 Respiratory Syncytial Virus (RSV) Adult or (1 - 1-dose 75+ series) 2012 Hemoglobin A1C 09/26/2023 COVID-19 VACCINE (2023-2 5 season) 2024 08/24/2023, 06/10/2022, 06/09/2021, Additional history exists Falls Risk Screening 09/17/2024 Medicare Initial AWV [id number] 09/18/2024 Tobacco Cessation Counseling and Screening (12+) 09/26/2024 09/26/2023 Influenza Vaccine (#1) 2025 , 06/24/2021, 08/06/2020 DTAP/TDAP/TD VACCINES (2 - T d or Tdap) 02/06/2030 02/07/2020 Insurance [facility] MEDICARE ADVANTAGE Advance Directives For more information, please contact: [phone] * Full Code (Latest Code Status on File) Date Activated Date Inactivated Comments 09/26/2023 11:26 AM 09/27/2023 1:06 PM * Full Code Date Activated Date Inactivated Comments 09/26/2023 8:32 AM 09/26/2023 11:26 AM Care Teams Layout Former Relationship Specialty Start Date End Date Stephen Chen MD [address] [place] [id number] PCP - General Family Medicine 09/26/23
--- OUTSIDE RECORDS SUMMARY | 2025-04-13 12:14 | XMS_ITS | Clinical Summary ---
Author Organization Healthcare Address [address] [place] [address] Care Team Providers Care Data Center Engineer Name Role Phone Pcp, No Primary Care Provider Unavailabl e Allergies Active Allergy Reactions Criticality Noted Date Comments Lisinopril Unknown - Patient st ates they do not know rxn details Low 08/09/2022 Tetanus Immune Globulin Hives Medium 08/09/2022 Medications atorvastatin (Lipitor) 40 MG tablet Take 40 mg by mouth every night. 06/09/20 22 Active Probiotic Product (FLORAJEN BIFIDOBLEND PO) Take 1 capsule by mouth 1 (one) time each day. Active senna-docusate (Nela-Colace) 8.6-50 MG tablet Take 1 tablet by mouth every night. Active donepezil (Aricept) 5 MG tablet Take 5 mg by mouth every night. Active DULoxetine (Cymbalta) [address] capsule Take 30 mg by mouth 1 (one) time each day. Do not crush or chew. Active enoxaparin (Lovenox) 40 MG/0.4ML solution prefilled syringe Inject 40 mg as directed 1 (one) time each day. 0900 Active finasteride (Proscar) 5 MG tablet Take 5 mg by mouth 1 (one) time each day. Do not crush, chew, or split. Active fluticasone (Flonase) 50 MCG/ACT nasal spray Administer 1 spray into each nostril 1 (one) time each day. Shake gently. Before first use, prime pump. After use, clean tip and replace cap. Active glipiZIDE XL (Glucotrol XL) 5 MG 24 hr tablet Take 5 mg by mouth 1 (one) time each day in the morning. Do not crush, chew, or split. Active insulin aspart (NovoLOG) 100 UNIT/ML injection vial Inject under the skin 3 (three) times a day before meals. Per Sliding Scale: 200 - 250 = 2 units 251 - 300 = 4 units 301 - 350 = 6 units > 350 = 8 units and call MD Active loratadine (Claritin) 10 MG tablet Take 10 mg by mouth 1 (one) time each day. Active melatonin 3 MG tablet Take 6 mg by mouth every night. Active menthol 0.44 % - zinc oxide 20.6 % (Calmoseptine) 0.44-20.6 % ointment ointment packet Apply 1 application topically 2 (two) times a day. Active metFORMIN (Glucophage) 500 MG tablet Take 500 mg by mouth 2 (two) times a day with meals. Active miconazole (Micotin) 2 % powder Apply 1 application topically 2 (two) times a day. Active ondansetron ODT (Zofran-ODT) 4 MG disintegrating tablet Take 4 mg by mouth 3 (three) times a day. Active polyethylene glycol (Miralax) 17 GM/SCOOP powder Take 17 g by mouth 1 (one) time each day. Active potassium chloride CR (Klor-Con) 10 MEQ ER tablet Take 20 mEq by mouth 1 (one) time each day. Do not crush, chew, or split. Active rifAMPin (Rifadin) 300 MG capsule Take 600 mg by mouth 2 (two) times a day before meals. Active scopolamine (Transderm-Scop) 1 MG/3DAYS patch [address] 1 patch on the skin every 3rd (third) day. Active tamsulosin (Flomax) 0.4 MG 24 hr capsule Take 0.4 mg by mouth 1 (one) time each day. Active ceFAZolin in Sodium Chloride 2-0.9 GM/100ML-% solution Infuse 2 g into a venous catheter every 8 (eight) hours. IV Piggyback 200ml/hr Active acetaminophen (Tylenol) 500 MG tablet Take 500 mg by mouth every 4 (four) hours if needed. Active Alum & Mag Hydroxide-Simeth (MAALOX MAXIMUM STRENGTH PO) Take 30 mL by mouth every 6 (six) hours if needed. Active Artificial Saliva (BIOTENE MOISTURIZING MOUTH MT) Use in the mouth or throat. Biotene moisturizing mouth Addy - 1 spray every hour as needed Biotene mouthwash - 1 application every hour as needed Active bisacodyl (Dulcolax) 10 MG suppository Insert 10 mg into the rectum 1 (one) time each day if needed for constipation. Active docusate sodium (Colace) 100 MG capsule Take 100 mg by mouth 2 (two) times a day if needed for constipation. Active furosemide (Lasix) 20 MG tablet Take 20 mg by mouth 1 (one) time each day if needed. Active magnesium hydroxide (Milk of Magnesia) 400 MG/5ML suspension Take 30 mL by mouth 1 (one) time each day if needed for constipation. Active meclizine (Antivert) 12.5 MG tablet Take 12.5 mg by mouth every 8 (eight) hours if needed for dizziness. Active polyvinyl alcohol-povidone PF (Refresh) 1.4-0.6 % ophthalmic solution Administer 1 drop into both eyes if needed for wound care. Active oxyCODONE (Roxicodone) 5 MG immediate release tablet Take 5 mg by mouth every 4 (four) hours if needed for severe pain. Active mineral oil-hydrophilic petrolatum (Aquaphor) ointment Apply 1 application topically 2 (two) times a day if needed for diaper rash. 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 0 08/09/2022 CAGE Questionnaire Score 0 022 Sex and Gender Information Value Date Recorded Sex Assigned at Not on file Legal Sex Male 7:28 PM EDT Gender Identity Not on file Sexual Orientation Not on file Last Filed Vital Signs Vital Sign Reading Time Taken Comments Blood Pressure 107/68 08/09/2022 10:50 AM EST Pulse 78 08/09/2022 10:50 AM EST Temperature 37.1 C (98.8 F) 08/09/2022 10:50 AM EST Respiratory Rate 15 08/09/2022 10:50 AM EST Oxygen Saturation 90% 08/09/2022 10:50 AM EST Inhaled Oxygen Concentration - - Weight 122 kg (270 lb) 08/08/2022 11:29 PM EST Height 194.3 cm (6' 4.5 ) 08/08/2022 11:29 PM ES T Body Mass Index 32.44 08/08/2022 11:29 PM EST Plan of Treatment Health Maintenance Due Date Last Done Comments [facility]-Depression Screening 1937 [facility]-Medicare Annual Wellness (AWV) 1937 [facility]-Infant/Child/Adol SDOH Screenings 1937 [facility]-Obesity Intervention 11/30/1943 [facility]- SDOH Screenings 11/30/1955 [facility]-Adult SDOH Screenings 11/30/1955 [facility]-DTaP,Tdap,and Td Vaccines (1 - Tdap) 1956 [facility]-Pneumococcal Vaccine: 50+ Years (1 of 1 - PCV) 11/30/1987 [facility]-Zoster Vaccines (1 of 2) 11/30/1987 [facility]-RSV Vaccine: 60+ Years or (1 - 1-dose 75+ series) 2012 [id number] Vaccine ( - season) 2024 06/10/2022, 06/09/2021, 11/18/2020, Additional history exists [facility]-Influenza Vaccine (#1) 05/18/202506/10, 06/24/2021, 08/06/2020 HPV Vaccines Aged Out No longer eligi ble based on patient's age to complete this topic [facility]-HIB Vaccines Aged Out No longer e ligible based on patient's age to complete this topic [facility]-Hepatitis A Vaccines Aged Out No longer eligible based on patient's age to complete this topic [facility]-IPV Vaccines Aged Out No longer e ligible based on patient's age to complete this topic [facility]-Rotavirus Vaccines Aged Out No lo nger eligible based on patient's age to complete this topic Procedures Procedure Name Priority Date/Time Associated Diagnosis Comments CT OUTSIDE IMAGES 02/14/2025 9:20 PM EDT from Last 3 Months Results * CT OUTSIDE IMAGES (02/14/2025 9:20 PM EDT) Anatomical Region Laterality Modality Computed Tomogra phy 02/14/2025 9:20 PM EDT Brandon Washington MD IMG CT PROCEDURES Final Result from Last 3 Months Insurance Care Teams Data Center Engineer Relationship Specialty Start Date End Date Pcp, [place] [address] PCP - General Family Medicine 08/08/22
--- OUTSIDE RECORDS SUMMARY | 2025-04-13 12:14 | XMS_ITS | Encounter Summary ---
Author Organization Healthcare Address [address] 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 0 08/09/2022 CAGE Questionnaire Score 0 022 Sex and Gender Information Value Date Recorded Sex Assigned at Not on file Legal Sex Male 7:28 PM EDT Gender Identity Not on file Sexual Orientation Not on file documented as of this encounter Plan of Treatment Not on file documented as of this encounter Procedures Procedure Name Priority Date/Time Associated Diagnosis Comments CT OUTSIDE IMAGES 02/14/2025 9:20 PM EDT documented in this encounter Results * CT OUTSIDE IMAGES (02/14/2025 9:20 PM EDT) Anatomical Region Laterality Modality Computed Tomogra phy 02/14/2025 9:20 PM EDT us Brandon Washington MD IMG CT PROCEDURES Final Result documented in this encounter Visit Diagnoses Not on filedocumented in this encounter Care Teams Clinical Application Manager Relationship Specialty Start Date End Date Pcp, No [address] [place] [address] PCP - General Family Medicine 08/08/22 documented as of this encounter
--- OUTSIDE RECORDS SUMMARY | 2025-04-13 12:15 | XMS_ITS | Encounter Summary ---
Author Organization [facility] ([place], [place], [place], [place]) Address [address] [place] [address] Care Team Providers Care Public Health Nurse Name Role Phone Stephen Chen MD Primary Care Provider [phone] Encounter Details Date Type Department Care Team (Late st Contact Info) Description 12/11/2018 Transcribed Document [facility] [place] [facility] [address] [place] [address] ProviderMeredith MD [address] [place] [address] Social History Tobacco Use Types Packs/Day Years Used Date Smoking Tobacco: Never Assessed Sex and Gender Information Value Date Recorded Sex Assigned at Not on file 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 Gender Identity Not on file Sexual Orientation Not on file documented as of this encounter Miscellaneous Notes * Cerner Conversion Note - Historical ProviderMD - 12/11/2018 11:40 AM CDT Pre Procedure Adult Entered On: 12/11/2018 11:44 EDT Performed On: 12/11/2018 11:40 EDT by MARILUZ MANN, RN Height and Weight, Clinical Dosing Height Source : Stated Height Entry Format : Sabine Height, Feet : 6 ft(Converted to: 183 cm, 72 Inch) Height, Inches : 5 Inch(Converted to: 0 ft 5 Inch, 12.70 cm) Clinical Height : 195.58 cm Weight Source : Standing scale Weight Entry Format : Sabine Clinical Dosing Weight : 133.18 kg Weight, Pounds : 293 lb Body Surface Area (BSA) : 2.63 m2 Body Mass Index : 34.8 kg/m2 (HI) [place] Body Weight : 88 kg MARILUZ MANN RN - 12/11/2018 11:40 EDT Health Histories Smoking Status : Never (less than 100 in lifetime; none in last 30 days) Smokeless Tobacco Status : Never MARILUZ MANN RN - 12/11/2018 11:40 EDT Social History (As Of: 12/11/2018 11:44:22 EDT) Tobacco: Smoking Status Never smoker. (Last Updated: 06/21/2015 10:21:11 EDT by SADIQ VAZQUEZ RN) Alcohol: Date/Time of Last Drink: does not drink. 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 (Last Updated: 06/21/2015 10:21:33 EDT by SADIQ VAZQUEZ RN) Infectious Disease History Infectious Disease History : Chicken pox/Shingles, Measles, MRSA, Mumps Fever/Chills Last 48 Hours : No Travel To Regions with Travel Advisories : No Travel Outside [place] Within Last 30 Days : No Contact With Traveler to Advisory Region : No Tuberculosis Symptoms : None MARILUZ MANN RN - 12/11/2018 11:40 EDT Anesthesia/Transfusion History Family History of Anesthesia Reaction : No prior transfusion(s) Transfusion History : No prior anesthesia Family History of Anesthesia Reaction : None MARILUZ MANN RN - 12/11/2018 11:40 EDT Functional Assessment Living Situation : Home Patient Lives With : Child/Children Current Home Treatments : Blood glucose monitoring, CPAP MARILUZ MANN RN - 12/11/2018 11:40 EDT Psychosocial History Do You Have a History of the Following? : Depression Currently in Unsafe Situation : No Tried to Harm Yourself in the Past? : No Thoughts of Harming/Killing Yourself : No MARILUZ MANN RN - 12/11/2018 11:40 EDT Advance Directive Patient has Advance Directive *Q : No, patient refuses Advance Directive information MARILUZ MANN RN - 12/11/2018 11:40 EDT General Info Support Person/Pt Rep Name : son Herve [phone] Want Family/Rep/Phys Notified of Admit : No Emergency Contact #1 : na Emergency Contact #1 Phone Number : na Emergency Contact #1 Relationship : na Emergency Contact #2 : na Emergency Contact #2 Phone Number : na Emergency Contact #2 Relationship : na Primary Language : [place] Preferred Communication Mode : Verbal Communication Barrier : None MARILUZ MANN RN - 12/11/2018 11:40 EDT Sleep Apnea Risk Assmt BiPAP/CPAP Ordered for Home Use : Yes Hx of Obstructive Sleep Apnea Diagnosis : Yes BiPAP/CPAP Used at Home : Yes Age over 50 Years Old : Yes Gender Male : Yes MARILUZ MANN RN - 12/11/2018 11:40 EDT Naseem Scale Naseem Sensory Perception : No impairment Naseem Moisture : Rarely moist Naseem Activity : Walks frequently Naseem Mobility : No limitation Naseem Nutrition : Excellent Naseem Friction and Shear : No apparent problem Naseem Score : 23 MARILUZ MANN RN - 12/11/2018 11:40 EDT Fall Risk Scales ABCs Fall Injury Risk Identification : None MALIK Hx Falls Immediate/Within 3 Months : No Malik Secondary Diagnosis : No MALIK Use of Ambulatory Aid : None MALIK IV Therapy or IV Access : No Malik Gait/Transferring : Normal, bedrest, immobile Malik Mental Status : Oriented to own ability Malik Fall Risk Score : 0 MALIK Fall Scale Risk Level : 0-24 Low Risk Weston Fall Interventions : Bed in low position, Call device within reach, Non-slip footwear, Wheels locked MARILUZ MANN RN - 12/11/2018 11:40 EDT Valuables and Belongings Valuables and Belongings : Clothing Clothing : Common streetwear Clothing Disposition : Bedside MARILUZ MANN RN - 12/11/2018 11:40 EDT documented in this encounter Plan of Treatment Not on file documented as of this encounter Visit Diagnoses Not on filedocumented in this encounter Care Teams Public Health Nurse Relationship Specialty Start Date End Date Stephen Chen MD [address] [place] [address] PCP - General Family Medicine 09/26/23 documented as of this encounter
--- OUTSIDE RECORDS SUMMARY | 2025-04-13 12:15 | XMS_ITS | Clinical Summary ---
Author Organization [facility] Address [address] [place] [address] Care Team Providers Care Loft Rigger Name Role Phone Stephen Chen MD Primary Care Provider Allergies Active Allergy Reactions Criticality Noted Date Comments Lisinopril Unknown (See Comments) Low 08/09/2022 On 06/26/2023 patient says he is not sure about this allergy Tetanus Immune Globulin Hives Medium 08/09/2022 Tetanus-Diphtheria Toxoids Td Hives High 06/13/2023 Medications metFORMIN (GLUCOPHAGE) 1000 MG tablet Take 0.5 tablets by mouth Daily With Breakfast. 3 Active fluticasone (FLONASE) 50 MCG/ACT nasal spray Administer 1 spray into the nostril(s) as directed by provider. Active donepezil (ARICEPT) 5 MG tablet Take 1 tablet by mouth Every Night. Active DULoxetine (CYMBALTA) 60 MG capsule Take 1 capsule by mouth Daily. 4 Active tamsulosin (FLOMAX) 0.4 MG capsule 24 hr capsule Take 1 capsule by mouth Daily. Active apixaban (Eliquis) 5 MG tablet tablet Take 1 tablet by mouth 2 (Two) Times a Day. 60 tablet 5 Active Acetaminophen 500 MG capsule Every 4 (Four) Hours. Active aspirin 81 MG EC tablet Take 1 tablet by mouth Daily. 5 Active atorvastatin (LIPITOR) 40 MG tablet Take 1 tablet by mouth Daily. Active furosemide (LASIX) 20 MG tablet Take 2 tablets by mouth. Active pantoprazole (PROTONIX) 40 MG EC tablet Take 1 tablet by mouth Daily. 5 Active traMADol (ULTRAM) 50 MG tablet Take 1 tablet by mouth Every 6 (Six) Hours As Needed. 5 Active amiodarone (PACERONE) 200 MG tablet Take 1 tablet by mouth Daily. 03/19/20 25 Discontinu ed(Histori socorro Med - Therapy completed) bumetanide (BUMEX) 1 MG tablet Take 1 tablet by mouth Daily. 03/19/20 Discontinu ed(Histori socorro Med - Therapy completed) Active Problems Problem Noted Date Diagnosed Date Acute pulmonary embolism 03/19/2025 Assessment & Plan (03/19/2025 6:28 PM EDT): Diagnosed with PE on 03/01/2025. CT angio pulmonary positive for pulmonary embolism left lower lobe. He is now on Eliquis 5 mg twice daily He also has a known history of atrial fibrillation. We will plan to continue Eliquis 5 mg twice daily Check labs: CBC, BMP BNP and this can be completed with his next lab drawl at the long-term [facility] or if no other lab draws due in 1 month. Congestive heart failure due to cardiomyopathy 0 06/04/2024 Cytokine release syndrome, grade 2 05/30/2024 COVID-19 virus infection 05/22/2024 Bilateral leg edema 08/14/2023 Heart failure due to valvular disease, chronic, systolic 06/28/2023 Overview (05/24/2024): Echo (06/18/2023): LVEF 35-40%. Moderate aortic stenosis with mean gradient 11 mmHg. Echo (05-21-24): EF = 25.7%. Assessment & Plan (03/19/2025 6:35 PM EDT): Known history of chronic systolic heart failure and to severe valve dysfunction EF in June of 2023 noted 35 - 40%. EF October 13, 2024 noted 26 to 30% EF on echo 03/01/2025 during hospitalization noted EF 20% Plan: Collaborated with Dr. Bosch and I have a message for her input Recheck echo in 2 months Office visit in 2 months Continue Zakia Noted that his blood pressure readings are low to normal and I do not suspect that he would tolerate Eliquis or metoprolol or any medication that may lower his blood pressure Coronary artery disease invo lving [place] coronary artery of [place] heart 06/27/2023 Overview (06/27/2023): Cardiac cath (2014): Mild luminal irregularities Cardiac cath with PCI x1 by Dr. East at [facility].. Data deficit Assessment & Plan (02/28/2024 8:32 AM EDT): Coronary artery disease is stable. Continue current treatment regimen. Cardiac status will be reassessed in 3 months. DM2 (diabetes mellitus, type 2) 06/27/2023 BPH (benign prostatic hyperplasia) 06/27/2023 Hyperlipidemia LDL goal <70 06/27/2023 NIGHAT (obstructive sleep apnea) 06/27/2023 Assessment & Plan (02/28/2024 8:28 AM EDT): He is doing well on PAP therapy with good control and compliance. Download reviewed and interpreted today. Compliance is 100%, AHI is 3.6. -Continue PAP therapy at current settings. Bilateral carotid artery disease 06/27/2023 Overview (06/27/2023): Reportedly history of mild to moderate bilateral carotid artery disease. Data deficit LBBB (left bundle branch block) 06/27/2023 Aortic stenosis, moderate 06/26/2023 Overview (05/24/2024): Echo (06/18/2023): LVEF 35-40%. Moderate aortic stenosis with mean gradient 11 mmHg. Mild pericardial effusion without tamponade Echo (05-21-24): EF = 25.7%. Severe calcification of the aortic valve. Hemodynamics not suggestive of significant stenosis. Moderate to severe mitral valve regurgitation is present. Assessment & Plan (03/19/2025 6:31 PM EDT): He has a known history of moderate aortic stenosis - He has had echo 06/18/2023 - Echo 05/21/2024 - Echo 07/25/2024 - Echo September 2024 Last echo at [place] 03/01/2025. Discharge summary reports concerning for severe [...] 2 months and repeat the echo Continue Elihaily and Laspurnima Assessment & Plan (08/04/2024 5:52 PM EST): By dimensionless index this appears to be moderate not severe. No chest pain or indication for valve procedure at this time. Assessment & Plan (06/30/2024 5:44 PM EDT): Would like to do a dobutamine stress echo for more assessment of possible low- flow low gradient aortic stenosis. Valve does look severe on echo. Concerned that this may be the cause of his worsening heart failure. I wonder if he has GI AVMs from his aortic stenosis. Assessment & Plan (02/28/2024 8:28 AM EDT): Moderate aortic stenosis, due for echo 06/2024. -Update echo at follow up visit. Assessment & Plan (06/26/2023 3:41 PM EDT): Moderate aortic stenosis noted on recent echocardiogram. - Repeat echo in 1 year. Resolved Problems Problem Noted Date Diagnosed Date Resolved Date SOB (shortness of breath) 07/08/2024 Acute on chronic HFrEF (hear t failure with reduced ejection fraction) 05/30/2024 07/13/2024 Atrial fibrillation with RVR 06/26/2023 05/30/2024 Overview (06/28/2023): New onset atrial fibrillation 06/26/2023 [id number] RIMA/ECV (06/27/2023): Successful conversion to NSR Assessment & Plan (06/26/2023 3:40 PM EDT): EKG today shows atrial fibrillation with rapid [...] worsening symptoms. - Patient was sent to [facility] ER via wheelchair for further evaluation. Report called to ER physician. - Follow-up in [address] Bosch. Encounters Date Type Department Care Team Description 04/08/2025 Telephone [facility] [address] [phone] Jocelyne Bosch MD 04/07/2025 1:30 PM EDT Ancillary Procedure [facility] [address] [id number] Aortic stenosis, moderate; Heart failure due to valvular disease, chronic, systolic 04/07/2025 Travel 03/19/2025 2:30 PM EDT Office Visit [facility] [address] [phone] Mandy Giron, CREDIT RISK OFFICER Acute pulmonary embolism, unspecified pulmonary embolism type, unspecified whether acute cor pulmonale present (Primary Dx); Heart failure due to valvular disease, chronic, systolic; Aortic stenosis, moderate; Central sleep apnea 03/19/2025 Travel from Last 3 Months Immunizations Immunization Administration Dates Next Due COVID-19 (MODERNA) 1st,2nd,3 rd Dose Monovalent 06/09/2021,11/18/2020,10/21/2020 COVID-19 (MODERNA) BIVALENT 12+YRS 06/10/2022 FLUAD TRI 65YR+ 08/06/2020 Fluzone (or Fluarix & Flulav al for VFC) >6mos 06/10/2022 Fluzone High-Dose 65+yrs 08/24/2023,06/24/2021 Td, Not Adsorbed 02/07/2020 Family History Relation Name Status Comments Father Mother Social History Tobacco Use Types Packs/Day Years Used Date Smoking Tobacco: Never Passive Smoke Exposure: Never Smokeless Tobacco: Never Tobacco Cessation:Counseling Given: Not Answered Alcohol Use Standard Drinks/Week Comments Never 0 (1 standard drink = 0.6 oz pur e alcohol) [facility] Utilities Answer Date Recorded In [...] and heating? Not hard at all 07/08/2024 [facility] [place] [facility] Occup[facility] - Occupational Stress [...] GED or equivalent No 07/08/2024 Preferred Language Occitan 07/08/2024 PHQ-2 Answer Date Recorded Patient Health [...] Pulse 82 03/19/2025 2:32 PM EDT Temperature 36.8 C (98.3 F) 07/13/2024 10:43 AM EDT Respiratory Rate 18 07/13/2024 10:43 AM EDT Oxygen Saturation 98% 03/19/2025 2:32 PM EDT Inhaled Oxygen Concentration - - Weight 119 kg (262 lb) 04/07/2025 1:37 PM EDT Height 190.5 cm (6' 3 ) 04/07/2025 1:37 PM EDT Body Mass Index 32.75 04/07/2025 1:37 PM EDT Plan of Treatment Upcoming Encounters Date Type Department Care Team (Late st Contact Info) Description 04/16/2025 3:00 PM EDT Office Visit [facility] [place] [address] [address]N [address] [place], [place] [id number] 05/20/2025 2:15 PM EDT Office Visit [facility] [place] [address] Jocelyne Bosch MD [address] [place] [address] [place] [address] Health Maintenance Due Date Last Done Comments DIABETIC EYE EXAM 11/30/1945 DIABETIC FOOT EXAM 11/30/1945 URINE MICROALBUMIN-CREATININ E RATIO (uACR) 11/30/1945 Pneumococcal Vaccine 50+ (1 of 2 - PCV) 1956 ZOSTER VACCINE (1 of 2) 11/30/1987 RSV Vaccine - Adults (1 - 1- dose 75+ series) 2012 TDAP/TD VACCINES (1 - Tdap) 02/08/2020 02/07/2020 ANNUAL WELLNESS VISIT 06/26/2023 COVID-19 Vaccine (6 - 2023-2 5 season) 2024 08/24/2023, 06/10/2022, 06/09/2021, Additional history exists INFLUENZA VACCINE 06/17/2025 08/12/2024, , 06/10/2022, Additional history exists LIPID PANEL 07/08/2025 07/08/2024 HEMOGLOBIN A1C 08/24/2025 02/22/2025, 06/18, 05/28/2024, Additional history exists Procedures Procedure Name Priority Date/Time Associated Diagnosis Comments SCANNED - LABS 04/09/2025 SCANNED - LABS 04/09/2025 ECHO COMPLETE W/ DOPPLER AND COLOR FLOW Routine 04/07/2025 2:24 PM EDT Aortic stenosis, moderate Heart failure due to valvular disease, chronic, systolic SCANNED - LABS 03/25/2025 SCANNED - PULMONARY RESULTS 03/19/2025 SCANNED - PULMONARY RESULTS 03/18/2025 LIPID PANEL STAT 07/08/2024 10:02 AM EDT HEMOGLOBIN A1C STAT 07/08/2024 7:00 AM EDT from Last 3 Months or Most Recently Relevant to Health Maintenance Results * LABS SCANNED (04/09/2025) Only the most recent of3 resultswithin the time period is included. Mandy Giron CREDIT RISK OFFICER LAB BLOOD ORDERABLES Fi nal Result * ECHO COMPLETE W/ DOPPLER AND COLOR [...] apical inferior, apical lateral and apex. Mandy Giron APRN CV ECHO ORDERABLES Mar[place]a l Result * Pulmonary Results Scan (03/19/2025) Mandy Giron APRN PFT ORDERABLES Final R esult * Pulmonary Results Scan (03/18/2025) Mandy Giron CREDIT RISK OFFICER PFT ORDERABLES Final R esult * (ABNORMAL) Lipid Panel (07/08/2024 10:02 AM EDT) Total Cholesterol 172 0 - 200 mg/dL 07/08/2024 11:14 AM EDT [facility] Triglycerides 112 0 - 150 mg/dL 07/08/2024 11:14 AM EDT [facility] HDL Cholesterol 31(L) 40 - 60 mg/dL 07/08/2024 11:14 AM EDT [facility] LDL Cholesterol 120(H) 0 - 100 mg/dL 07/08/2024 11:14 AM EDT [facility] VLDL Cholesterol 21 5 - 40 mg/dL 07/08/2024 11:14 AM EDT [facility] LDL/HDL Ratio 3.83 07/08/2024 11:14 AM EDT [facility] Blood Venipuncture / Unknown 07/08/2024 10:02 AM EDT 07/08/2024 10:29 AM EDT [facility] - 07/08/2024 11:14 AM EDT Cholesterol Reference Ranges (U.S. Department of Health and Human Services ATP III Classifications) Desirable <200 mg/dL Borderline High 200-239 mg/dL High Risk >240 mg/dL Triglyceride Reference Ranges (U.S. Department of Health and Human Services ATP III Classifications) Normal <150 mg/dL Borderline High 150-199 mg/dL High 200-499 mg/dL Very High >500 mg/dL HDL Reference Ranges (U.S. Department of Health and Human Services ATP III Classifications) Low <40 mg/dl (major risk factor for CHD) High >60 mg/dl ('negative' risk factor for CHD) LDL Reference Ranges (U.S. Department of Health and Human Services ATP III Classifications) Optimal <100 mg/dL Near Optimal 100-129 mg/dL Borderline High 130-159 mg/dL High 160-189 mg/dL Very High >189 mg/dL us Liz Don CREDIT RISK OFFICER LAB BLOOD ORDERABLES Fi nal Result [facility]
[address] [place] [address], [place] [phone] from Last 3 Months or Most Recently Relevant to Health Maintenance Insurance [facility] [employer] PPO Advance Directives * CPR (Attempt to Resuscitate) (Latest Code Status on File) Date Activated Date Inactivated Comments 07/08/2024 5:41 AM 07/13/2024 3:49 PM Question Answer Comments Code Status (Patient has no pulse and is not breathing): CPR (Attempt to Resuscitate) Medical Interventions (Patie nt has pulse or is breathing): Full Support Level Of Support Discussed With: Patient * CPR (Attempt to Resuscitate) Date Activated Date Inactivated Comments 05/19/2024 1:21 PM 05/30/2024 3:48 PM Question Answer Comments Code Status (Patient has no pulse and is not breathing): CPR (Attempt to Resuscitate) Medical Interventions (Patie nt has pulse or is breathing): Full Support Comments: Do whatver you think is best Level Of Support Discussed With: Patient * CPR (Attempt to Resuscitate) Date Activated Date Inactivated Comments 05/18/2024 8:25 PM 05/19/2024 1:21 PM Question Answer Comments Code Status (Patient has no pulse and is not breathing): CPR (Attempt to Resuscitate) Medical Interventions (Patie nt has pulse or is breathing): Full Support Level Of Support Discussed With: Patient * CPR (Attempt to Resuscitate) Date Activated Date Inactivated Comments 06/27/2023 4:29 AM 06/28/2023 7:17 PM Question Answer Comments Code Status (Patient has no pulse and is not breathing): CPR (Attempt to Resuscitate) Medical Interventions (Patie nt has pulse or is breathing): Full Support Care Teams Loft Rigger Relationship Specialty Start Date End Date Stephen Chen MD [facility] [place] [facility] [address] [facility] [address] [place] [address] PCP - General Family Medicine 06/27/23
--- OUTSIDE RECORDS SUMMARY | 2025-04-13 12:15 | XMS_ITS | Encounter Summary ---
Author Organization [employer] ([place], [place], [place], [place]) Address [address] [place] [place] [address] Care Team Providers Care Publications Designer Name Role Phone Stephen Chen MD Primary Care Provider [phone] Encounter Details Date Type Department Care Team (Late st Contact Info) Description 12/11/2018 Transcribed Document [facility] [place] [facility] [address] [place] [id number] ProviderMeredith MD [address] [place] [id number] Social History Tobacco Use Types Packs/Day Years Used Date Smoking Tobacco: Never Assessed Sex and Gender Information Value Date Recorded Sex Assigned at Not on file Legal Sex Male 7:48 AM 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 Gender Identity Not on file Sexual Orientation Not on file documented as of this encounter Miscellaneous Notes * Cerner Conversion Note - Meredith Rocha MD - 12/11/2018 6:05 PM CDT [address] [place] [address] Patient Copy Patient Information: Name: STEVE KING Current Date: 12/11/2018 18:05:25 : 1935 Patient Address: [address] [place] [id number] Patient Attending Physician: DICKSON REBOLLEDO MD-CAR Primary Care Provider: JOSE J CARABALLO MD-[facility] Primary Care Provider Discharge Diagnosis: Weight on Admission: 293 lb, 0 oz Comment: Follow-up Instructions: With: Address: When: SEDRICK SADLER [address], [address] [place] [id number] Business (1) Within 2 to 4 weeks Discharge Instructions: Diet after Discharge: Resume usual diet as tolerated, Other: If taking metformin, hold for 2 days. Driving after Discharge: Other: No driving for 24 hours. Showering/Bathing:May shower, Other: Tomorrow Wound/Incision Care after Discharge: Keep operative site/wound site clean and dry Immunizations Documented During Stay: No Immunizations Found Heart Failure Discharge Instructions (if any): Stroke Related Discharge Instructions (if any): Warfarin Related Discharge Instructions (if any): Final Medication List: Other Medications amitriptyline (Elavil) 10 Milligram(s) Oral At Bedtime. aspirin (aspirin 81 mg oral delayed release tablet) 1 Tablet(s) Oral Every Day. Patient Instructions: New medication. Prescription sent to [facility] or may be purchased over the counter. atorvastatin (atorvastatin 40 mg oral tablet) 1 Tablet(s) Oral At Bedtime. Patient Instructions: New medication. Prescription [facility] busPIRone (BuSpar) 5 Milligram(s) Oral Every Day. donepezil (Aricept) 5 Milligram(s) Oral At Bedtime. fluticasone nasal (Flonase) [address] [employer](s) Nostrils Both Every Day. uses as needed. furosemide (Lasix 20 mg oral tablet) 1 Tablet(s) Oral Every Day. Patient Instructions: Resume on 12/12/18 gabapentin 800 Milligram(s) Oral Two Times A Day. glipiZIDE (Glucotrol) 5 Milligram(s) Oral Every Day. isosorbide mononitrate (Imdur) 30 Milligram(s) Oral Every Day. Patient Instructions: New medication. Prescription sent to [facility] metFORMIN 500 Milligram(s) Oral Two Times A Day. Patient Instructions: resume on 12/14/18 potassium chloride (Klor-Con M10) 20 Milliequivalent(s) Oral Every Day. sertraline (Zoloft) 150 Milligram(s) Oral Every Day. SITagliptin (Januvia) 100 Milligram(s) Oral Every Day. tamsulosin (Flomax 0.4 mg oral capsule) 1 Capsule(s) Oral Every Day. tolterodine (Detrol LA) 4 Milligram(s) Oral Every Day. Patient Allergies: Alcohol; tetanus toxoid; gas, diesel fuel, alcohol Medication Instructions: Take your medications faithfully. Do NOT skip medication. Do NOT stop taking medications without the direction of a physician. Carry a list of your medications with you at all times, and take this medication list with you to your first follow up visit. Report any side effects. Avoid herbal remedies unless discussed with your physician. As part of your treatment plan, your physician may have prescribed a limited course of a controlled substance. This medication may be given to help people with moderate or severe pain or for other medical conditions, but there are risks involved with treatment. Common side effects may include nausea, constipation, drowsiness, sweating, itching, dry mouth, and rash. More serious side effects may include cognitive and motor impairment, like problems with thinking, concentrating, alertness, and movement (e.g. slowed reflexes), and driving and operating heavy machinery can be dangerous. It is important for you to talk to your physician if you have these side effects or questions. These controlled substances can produce physical dependence and be habit-forming if taken for an extended period of time, which means that the body has gotten used to them and may experience withdrawal symptoms if they are abruptly stopped. Withdrawal symptoms can include runny nose, sweating, goose bumps, diarrhea, abdominal cramping, rapid heartbeat, difficulty sleeping, and nervousness. Patient education materials: Radial Site Care Introduction Refer to this sheet in the next few weeks. These instructions provide you with information about caring for yourself after your procedure. Your health care provider may also give you more specific instructions. Your treatment has been planned according to current medical practices, but problems sometimes occur. Call your health care provider if you have any problems or questions after your procedure. What can I expect after the procedure? After your procedure, it is typical to have the following: ??? Bruising at the radial site that usually fades within 1?2 weeks. ??? Blood collecting in the tissue (hematoma) that may be painful to the touch. It should usually decrease in size and tenderness within 1?2 weeks. Follow these instructions at home: ??? Take medicines only as directed by your health care provider. ??? You may shower 24?48 hours after the procedure or as directed by your health care provider. Remove the bandage (dressing) and gently wash the site with plain soap and water. Pat the area dry with a clean towel. Do not rub the site, because this may cause bleeding. ??? Do nottake baths, swim, or use a hot tub until your health care provider approves. ??? Check your insertion site every day for redness, swelling, or drainage. ??? Do notapply powder or lotion to the site. ??? Do notflex or bend the affected arm for 24 hours or as directed by your health care provider. ??? Do notpush or pull heavy objects with the affected arm for 24 hours or as directed by your health care provider. ??? Do notlift over 10 lb (4.5 kg) for 5 days after your procedure or as directed by your health care provider. ??? Ask your health care provider when it is okay to:? Return to work or school. ? Resume usual physical activities or sports. ? Resume sexual activity. ??? Do notdrive home if you are discharged the same day as the procedure. Have someone else drive you. ??? You may drive 24 hours after the procedure unless otherwise instructed by your health care provider. ??? Do notoperate machinery or power tools for 24 hours after the procedure. ??? If your procedure was done as an outpatient procedure, which means that you went home the same day as your procedure, a responsible adult should be with you for the first 24 hours after you arrive home. ??? Keep all follow-up visits as directed by your health care provider. This is important. Contact a health care provider if: ??? You have a fever. ??? You have chills. ??? You have increased bleeding from the radial site. Hold pressure on the site. Get help right away if: ??? You have unusual pain at the radial site. ??? You have redness, warmth, or swelling at the radial site. ??? You have drainage (other than a small amount of blood on the dressing) from the radial site. ??? The radial site is bleeding, and the bleeding does not stop after 30 minutes of holding steady pressure on the site. ??? Your arm or hand becomes pale, cool, tingly, or numb. This information is not intended to replace advice given to you by your health care provider. Make sure you discuss any questions you have with your health care provider. Document Released: 10/06/2011 Document Revised: 02/08/2017 Document Reviewed: 03/22/2015 ? 2017 [employer] Coronary Angiogram A coronary angiogram is an X-ray procedure that is used to examine the arteries in the heart. In this procedure, a dye (contrast dye) is injected through a long, thin tube (catheter). The catheter is inserted through the groin, wrist, or arm. The dye is injected into each artery, then X-rays are taken to show if there is a blockage in the arteries of the heart. This procedure can also show if you have valve disease or a disease of the aorta, and it can be used to check the overall function of your heart muscle. You may have a coronary angiogram if: ??? You are having chest pain, or other symptoms of angina, and you are at risk for heart disease. ??? You have an abnormal electrocardiogram (ECG) or stress test. ??? You have chest pain and heart failure. ??? You are having irregular heart rhythms. ??? You and your health care provider determine that the benefits of the test information outweigh the risks of the procedure. Let your health care provider know about: ??? Any allergies you have, including allergies to contrast dye. ??? All medicines you are taking, including vitamins, herbs, eye drops, creams, and ghjz-gat-zkhejbg medicines. ??? Any problems you or family members have had with anesthetic medicines. ??? Any blood disorders you have. ??? Any surgeries you have had. ??? History of kidney problems or kidney failure. ??? Any medical conditions you have. ??? Whether you are or may be . What are the risks? Generally, this is a safe procedure. However, problems may occur, including: ??? Infection. ??? Allergic reaction to medicines or dyes that are used. ??? Bleeding from the access site or other locations. ??? Kidney injury, especially in people with impaired kidney function. ??? Stroke (rare). ??? Heart attack (rare). ??? Damage to other structures or organs. What happens before the procedure? Staying hydratedFollow instructions from your health care provider about hydration, which may include: ??? Up to 2 hours before the procedure ? you may continue to drink clear liquids, such as water, clear fruit juice, black coffee, and plain tea. Eating and drinking restrictionsFollow instructions from your health care provider about eating and drinking, which may include: ??? 8 hours before the procedure ? stop eating heavy meals or foods such as meat, fried foods, or fatty foods. ??? 6 hours before the procedure ? stop eating light meals or foods, such as toast or cereal. ??? 2 hours before the procedure ? stop drinking clear liquids. General instructions ??? Ask your health care provider about: ? Changing or stopping your regular medicines. This is especially important if you are taking diabetes medicines or blood thinners. ? Taking medicines such as ibuprofen. These medicines can thin your blood. Do not take these medicines before your procedure if your health care provider instructs you not to, though aspirin may be recommended prior to coronary angiograms. ??? Plan to have someone take you home from the hospital or clinic. ??? You may need to have blood tests or X-rays done. What happens during the procedure? An IV tube will be inserted into one of your veins. ??? You will be given one or more of the following: ? A medicine to help you relax (sedative). ? A medicine to numb the area where the catheter will be inserted into an artery (local anesthetic). ??? To reduce your risk of infection: ? Your health care team will wash or sanitize their hands. ? Your skin will be washed with soap. ? Hair may be removed from the area where the catheter will be inserted. ??? You will be connected to a continuous ECG monitor. ??? The catheter will be inserted into an artery. The location may be in your groin, in your wrist, or in the fold of your arm (near your elbow). ??? A type of X-ray (fluoroscopy) will be used to help guide the catheter to the opening of the blood vessel that is being examined. ??? A dye will be injected into the catheter, and X-rays will be taken. The dye will help to show where any narrowing or blockages are located in the heart arteries. ??? Tell your health care provider if you have any chest pain or trouble breathing during the procedure. ??? If blockages are found, your health care provider may perform another procedure, such as inserting a coronary stent. The procedure may vary among health care providers and hospitals. What happens after the procedure? After the procedure, you will need to keep the area still for a few hours, or for as long as told by your health care provider. If the procedure is done through the groin, you will be instructed to not bend and not cross your legs. ??? The insertion site will be checked frequently. ??? The pulse in your foot or wrist will be checked frequently. ??? You may have additional blood tests, X-rays, and a test that records the electrical activity of your heart (ECG). ??? Do notdrive for 24 hours if you were given a sedative. Summary ??? A coronary angiogram is an X-ray procedure that is used to look into the arteries in the heart. ??? During the procedure, a dye (contrast dye) is injected through a long, thin tube (catheter). The catheter is inserted through the groin, wrist, or arm. ??? Tell your health care provider about any allergies you have, including allergies to contrast dye. ??? After the procedure, you will need to keep the area still for a few hours, or for as long as told by your health care provider. This information is not intended to replace advice given to you by your health care provider. Make sure you discuss any questions you have with your health care provider. Document Released: 03/09/2004 Document Revised: 06/15/2017 Document Reviewed: 06/15/2017 [employer] Patient Education ? 2017 [employer] Moderate Conscious Sedation, Adult, Care After These instructions provide you with information about caring for yourself after your procedure. Your health care provider may also give you more specific instructions. Your treatment has been planned according to current medical practices, but problems sometimes occur. Call your health care provider if you have any problems or questions after your procedure. What can I expect after the procedure? After your procedure, it is common: ??? To feel sleepy for several hours. ??? To feel clumsy and have poor balance for several hours. ??? To have poor judgment for several hours. ??? To vomit if you eat too soon. Follow these instructions at home: For at least 24 hours after the procedure: ??? Do not: ? Participate in activities where you could fall or become injured. ? Drive. ? Use heavy machinery. ? Drink alcohol. ? Take sleeping pills or medicines that cause drowsiness. ? Make important decisions or sign legal documents. ? Take care of children on your own. ??? Rest. Eating and drinking ??? Follow the diet recommended by your health care provider. ??? If you vomit: ? Drink water, juice, or soup when you can drink without vomiting. ? Make sure you have little or no nausea before eating solid foods. General instructions ??? Have a responsible adult stay with you until you are awake and alert. ??? Take cfhq-qcc-sepozcx and prescription medicines only as told by your health care provider. ??? If you smoke, do not smoke without supervision. ??? Keep all follow-up visits as told by your health care provider. This is important. Contact a health care provider if: ??? You keep feeling nauseous or you keep vomiting. ??? You feel light-headed. ??? You develop a rash. ??? You have a fever. Get help right away if: ??? You have trouble breathing. This information is not intended to replace advice given to you by your health care provider. Make sure you discuss any questions you have with your health care provider. Document Released: 06/24/2014 Document Revised: 02/05/2017 Document Reviewed: 12/23/2016 [employer] Patient Education ? 2017 [employer] CIGARETTE SMOKING: The facts are clear, cigarette smoking will shorten your life. Smoking can cause many illnesses along the way. As a healthcare provider, we recommend that you stop smoking. Assistance with quitting is available by contacting 5-189-INLW-NOW. This is a free resource providing counseling, support, and referral. Or you may contact your personal physician. 4 WAYS TO GET AHEAD OF SEPSIS SEPSIS is a MEDICAL EMERGENCY. Time matters! Infections put you and your family at risk for a life-threatening condition called sepsis. Sepsis is the body???s extreme response to an infection. It is life-threatening, and without timely treatment, sepsis can rapidly lead to tissue damage, organ failure, and . Sepsis happens when an infection you already have???in your skin, lungs, urinary tract or somewhere else???triggers a chain reaction throughout your body. 1 PREVENT INFECTIONS Take good care of chronic conditions. Talk to your doctor about getting the recommended vaccines. 2 PRACTICE GOOD HYGIENE Wash your hands frequently. Keep cuts or open sores clean and covered until they are healed. 3 KNOW THE SYMPTOMS Confusion or disorientation Shortness of breath High heart rate Fever, shivering, or feeling very cold Extreme pain or discomfort Clammy or sweaty skin 4 ACT FAST Get medical care IMMEDIATELY if you suspect sepsis or if you have an infection that???s not getting better or is getting worse. To learn more about sepsis and how to prevent infections, visit www.cdc.gov/sepsis. STROKE is an EMERGENCY [employer] ACT F.A.S.T! FACE ?? Facial droop ?? Uneven smile ARM ?? Arm numbness ?? Arm weakness SPEECH ?? Slurred speech ?? Difficulty speaking or understanding TIME ?? Call 911 and get to the hospital immediately Have the ambulance go to the nearest stroke center. STROKE Risk Factors High blood pressure High cholesterol Heart Disease Diabetes Smoking Heavy alcohol use Physical inactivity and obesity Atrial Fibrillation (irregular heartbeat) Family history of stroke Reminder: Be sure to sign up for the [employer] patient portal, which gives you 09/04 access to your medical information ??? including these discharge instructions ??? using your computer, smartphone, or tablet. Just go to [employer] to get started. Questions? Call . [facility] would like to thank you for allowing us to assist you with your healthcare needs. FERNANDO Olsen WILLIAM CECIL, (or sales service representative) have received the above patient education materials/instructions and have verbalized understanding: Patient Signature _ Date/Time Patient Hoop Driving Machine Operator Signature (if needed) Date/Time Clinician/Hospital Hoop Driving Machine Operator Signature (if needed) Date/Time Electronically signed by Interface, [facility] Conversion Paving Supervisor Cerner at 01/05/2023 10:41 AM CDT documented in this encounter Plan of Treatment Not on file documented as of this encounter Visit Diagnoses Not on filedocumented in this encounter Care Teams Publications Designer Relationship Specialty Start Date End Date Stephen Chen MD [address] [place] [id number] PCP - General Family Medicine 09/26/23 documented as of this encounter
--- OUTSIDE RECORDS SUMMARY | 2025-04-13 12:15 | XMS_ITS | Patient Health Record ---
Author Organization [facility] Address [address] [facility] [address] [place] [id number] Care Team Providers Care Crew Lead Name Role Phone GustavoGrady Unavailable [phone] Jericho Garcia Unavailable [phone] PattonCyndi sanchez Unavailable [phone] Allergies No Known Allergies Results Component Value Reference Range Notes CBC Reviewed date:04/13/2025 09:51:39 AM Interpretation: Performing Lab: Notes/Report: wbc 4.46 rbc 3.28 hgb 9.5 hct 29.6 mcv 90.2 mch 29 mchc 32.1 plt [id number] sodium 133 potassium 4.8 chloride 93 CO2 25 glucose 185 BUN/Cr 35/1.5 calcium 9 protein 6.4 albumin 3.7 bilirubin 0.45 SGOT 82 SGPT 28 alk phos 270 CMP Reviewed date:04/01/2025 11:04:05 PM Interpretation: Performing Lab: Notes/Report: CMP Reviewed date:03/25/2025 02:47:21 PM Interpretation: Performing Lab: Notes/Report: H-BMP Reviewed date:03/16/2025 09:14:04 PM Interpretation:gluc 209, Na 134, cl 94, gap 15.6, bun 21 Performing Lab: Notes/Report: NA 134 136-145 mmol/L K 4.6 3.5-5.1 mmoL/L CL 94 98-107 mmol/L CO2 29 22.0-30.0 mmol/L GAP 15.6 5-15 mEq/L BUN 21 9-20 mg/dl CREATT 0.90 0.66-1.25 mg/dl GFRAA 97 >60 ML/MIN EGFR 80 >60 ml/min GLU 209 74-100 mg/dl CA 8.6 8.4-10.2 mg/dl Urinalysis Reviewed date:06/04/2024 11:19:58 PM Interpretation: Performing Lab: Notes/Report: P-CBC With Platelet No Diffe swati Reviewed date:12/29/2024 10:07:41 PM Interpretation: Performing Lab: Notes/Report: Test performed by [facility] [address] [place] [address] [place] [address] Titus Chong MD, Electrical High Tension Tester CLIA: [id number] WBC 7.3 3.8-11.5 K/uL Red Blood Cell Count (RBC) 3.92 4.20-5.70 M/mm 3 Hemoglobin (Hgb) 12.7 13.1-17.5 gm/dL Hematocrit (HCT) 39.3 39.0-51.0 % MCV 100.3 79.0-99.0 fL MCH 32.4 26.9-35.0 pg MCHC 32.3 30.4-34.8 g/dL RDW 51.4 38.2-53.0 fL Platelet Count 319 137-397 K/cumm P-Comprehensive Metabolic Pa jason (CMP) Reviewed date:12/29/2024 10:07:41 PM Interpretation: Performing Lab: Notes/Report: Test performed by [facility] [address] [place] [address] [address] , [place] [address] Titus Chong MD, Electrical High Tension Tester CLIA: [id number] Sodium 141 135-145 mmol/L Potassium 4.8 3.5-5.3 mmol/L Chloride 104 97-108 mmol/L CO2 17 22-32 mmol/L Glucose 204 65-99 mg/dL BUN 22 8-23 mg/dL Creatinine 0.86 0.70-1.30 mg/dL Calcium 9.3 8.6-10.4 mg/dL eGFR by Creatinine 84 >59 mL/min/1.73m2 Protein 7.2 6.0-8.3 g/dL Albumin 4.1 3.5-5.3 g/dL Alkaline Phosphatase 118 40-129 IU/L ALT (SGPT) 8 <5-55 IU/L AST (SGOT) 10 <5-46 IU/L Bilirubin, Total 0.3 <0.2-1.2 mg/dL A/G Ratio 1.3 1.1-2.5 P-Hemoglobin A1C Reviewed date:12/29/2024 10:07:41 PM Interpretation: Performing Lab: Notes/Report: Test performed by [facility] [address] [place], [place] [address] [place] [address] Titus Chong MD, Electrical High Tension Tester CLIA: [id number] Hemoglobin A1C 8.0 <5.7 % The following HbA1c ranges recommended by the [place] [employer] (ADA) may be used as an aid in the diagnosis of diabetes mellitus. HbA1c Suggested Diagnosis >=6.5% Diabetic 5.7% - 6.4% Pre-Diabetic <5.7% Non-Diabetic P-PSA Reviewed date:12/29/2024 10:07:41 PM Interpretation: Performing Lab: Notes/Report: Test performed by [facility] [address] [place], [place] [address] [place] [address] Titus Chong MD, Electrical High Tension Tester CLIA: [id number] PSA 0.47 <4.00 ng/mL Please note this is an ultrasensitive PSA assay with a lower limit of detection of 0.014 ng/mL. This test is performed by the [employer] ECLIA methodology. Values obtained with different assay methods or kits cannot be directly compared. Estimated Average Glucose Reviewed date:12/29/2024 10:07:41 PM Interpretation: Performing Lab: Notes/Report: Test performed by [facility] [address] [place] [address] [place] [address] Titus Chong MD, Electrical High Tension Tester CLIA: [id number] Estimated Average Glucose (eAG) 183 Estimated Average Glucose (eAG) is calculated using the equation eAG = (28.7 x HbA1c) - 46.7 based on the guidelines established by the ADA. If the patient has certain diseases including kidney disease, sickle cell anemia, thalassemia, or is taking medications such as dapsone, erythropoietin, or iron, eAG should not be evaluated. CBC Reviewed date:04/06/2025 03:47:13 PM Interpretation: Performing Lab: Notes/Report: CXR Reviewed date:04/07/2025 03:11:54 PM Interpretation: Performing Lab: Notes/Report: Urine Culture, Routine Reviewed date:06/06/2024 08:56:45 AM Interpretation:Abnormal Performing Lab: Notes/Report: Abnormal Reason For Referral Reason chronic rash on legs Diagnosis 1 Dermatitis (L30.9) [facility] Referring Provider First Name Grady Licea Referring Provider Last Name Gustavo Referring Provider [facility] Referred Organization [facility] Referred Provider LynVane Referred Address [facility] [place] [address] [id number], Referred Provider Specialty Dermatology General Notes Myra Walker 05/06/20 24 2:09:32 PM > 07/22/2024 at 11:10am; call son Herve at [phone]; lvm with appt info Referral Priority Routine Reason Dr. Bosch in [place] for CHF; [facility] f/u Diagnosis 1 HFrEF (heart failure with reduced ejection fraction) (I50.20) [facility] Referring Provider First Name Grady Licea Referring Provider Last Name Gustavo Referring Provider [facility] Referred Provider Cardiology, . Referred Provider Specialty Cardiovascul ar Disease General Notes Myra Walker 024 8:56:44 AM > patient has an appointment with Dr. Bosch today at 10:00am Referral Priority Routine Reason patient just needs s trengthening and balance exercises Diagnosis 1 Adult general medica l examination (Z00.00) [facility] Referring Provider First Name Grady Licea Referring Provider Last Name Gustavo Referring Provider [facility] Referred Provider Physical Therapy, . Referred Provider Specialty Physical The rapist General Notes Myra Walker 2024 08:27:27 AM > faxed to [facility] Denise Lopes Brynn 02/12/2025 10:30:10 AM > refaxing; no need for cardiopulmonary rehab, just strengthening and balancing exercises Referral Priority Routine Medications Medication SIG (Take, Route, Frequency, Duration) Notes Start Date End Date Status metFORMIN HCl 500 MG 1 tablet with a ellie l Orally twice a day Active Acetaminophen 500 MG 1-2capsule as needed Orally every 4 hours As needed Active Aspirin 81 MG 1 tablet Orally Once a day Active Calcium Carbonate Antacid 1000 MG s Orally every 8 hours Active Biofreeze Cool The Pain 4 % 1 application as needed Externally Three times a day 03/26/2025 Active ceFAZolin Sodium 2 GM as directed Injection every 8 hours Active Atorvastatin Calcium 40 MG 1 tablet Orally Once a day Active Iron (Ferrous Sulfate) 325 (65 Fe) MG 1 tablet Orally every other day; Duration: 30 days 04/09/2025 Active Cymbalta 60 MG 1 cap(s) orally once a day Active GNP Vitamin C 500 MG 1 tablet Orally Onc e a day; Duration: 30 day(s) 04/09/2025 Active Flonase Allergy Relief 50 MCG/ACT 2 sprays (1 spray in each nostril) in each nostril Once a day As needed Active Pantoprazole Sodium 40 MG 1 tab(s) Orally Once a day Active MiraLax 17 GM/SCOOP 1 scoop mixed with 8 ounces of fluid Orally Once a day; Duration: 30 day(s) 04/09/2025 Active traMADol HCl 50 MG 1 tablet as needed Orally every 6 hours As needed 03/31/2025 Active Folic Acid 1 MG 1 tablet Orally Once a day; Duration: 30 day(s) 04/09/2025 Active Donepezil HCl 5 MG 1 tablet at bedtime Orally Once a day Active Eliquis 5 MG 1 tab(s) Orally Two times a day Active MiraLax 17 GM/SCOOP 1 scoop mixed with 8 ounces of fluid Orally Once a day As needed Active CPAP machine and supplies - as directed as directed Active Furosemide 20 MG 1 tablet Orally Once a day Active Calcium Carb-Cholecalciferol 250-3.125 MG-MCG 1 tablet with a meal Orally Once a day Active Polyvinyl Alcohol 1.4 % instill into right eye Ophthalmic twice a day As needed Active Hydrocortisone 1 % 1 application to rash on back./torso Externally Twice a day Active Tamsulosin HCl 0.4 MG 1 capsule Orally Once a day Active Paste Base - as directed Snow's msgic butt psste to scrotum and teofilo area Active Immunizations Vaccine Route Administration Date Status Comme nts COVID 19 Moderna Unknown 10/21/2020 Administered COVID 19 Moderna Unknown 11/18/2020 Administered COVID 19 Moderna Unknown 06/09/2021 Administered Fluzone High Dose (65yr and older) IM Intramuscular 06/24/2021 Administered Fluzone High Dose (65yr and older) Unknown 08/24/2023 Administered Fluzone High Dose (65yr and older) IM Intramuscular 08/12/2024 Administered Fluzone PF Quad (6-35 months) Unknown 06/10/2022 Administered Tetanus-DT Unknown 02/07/2020 Administered Problems Problem Type SNOMED Code ICD Code Onset Dates Problem Status W/U Status Risk Notes Problem Gastroesophageal reflux disease (908835696) GERD (gastroesophageal reflux disease) (K21.9) Active confirmed Problem 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) (I25.10) Active confirmed Problem Type 2 diabetes mellitus (97293611) Type 2 diabetes mellitus (E11.9) Active confirmed Problem Hyperlipidemia (12398902) Hyperlipidemia (E78.5) Active confirmed Problem Dyspepsia (596436718) Dyspepsia (K30) Active confirmed Problem Environmental allergy (789688808) Environmental allergies (Z91.048) Active confirmed Problem Cervicalgia (70189242) Cervicalgia (M54.2) Active confirmed Problem Mixed anxiety and depressive disorder (223493804) Depression with anxiety (F41.8) Active confirmed Problem BMI 30+ - obesity (665185071) BMI 32.0-32.9,adult (Z68.32) Active confirmed Problem Benign prostatic hyperplasia (534434581) BPH (benign prostatic hyperplasia) (N40.0) Active confirmed Problem Overactive urinary bladder (disorder) (406012817) OAB (overactive bladder) (N32.81) Active confirmed Problem Hearing loss (48697880) Hearing loss (H91.90) Active confirmed Problem Congestive heart failure (20925980) CHF (congestive heart failure) (I50.9) Active confirmed Problem Sleep disturbance (15483538) Sleep disturbance (G47.9) Active confirmed Problem Depression (355937768) Depression (F32.9) Active confirmed Problem Obese class II (884406015642653) BMI 36.0-36.9,adult (Z68.36) Active confirmed Problem New daily persistent headache (731005947892728) New daily persistent headache (G44.52) Active confirmed Problem Atresia and stenosis of aorta (686861613) Aortic stenosis (Q25.3) Active confirmed Problem Mitral regurgitation (78448804) Mitral regurgitation (I34.0) Active confirmed Problem Mild cognitive impairment (013390923) Mild cognitive impairment (G31.84) Active confirmed Problem Irritable bowel (62586214) Irritable bowel (K58.9) Active confirmed Problem Body mass index 30.00 to 34.99 (996722361711939) BMI 34.0-34.9,adult (Z68.34) Active confirmed Problem Dyslipidemia (776347603) Dyslipidemia (E78.5) Active confirmed Problem Neck pain (67499087) Cervical pain (neck) (M54.2) Active confirmed Problem Acute gout (854975932) Acute gout (M10.9) Active confirmed Problem Tinnitus (12604169) Tinnitus (H93.19) Active co nfirmed Problem Peptic ulcer disease (78092256) PUD (peptic ulcer disease) (K27.9) Active confirmed Problem Primary osteoarthritis (330753826) Primary osteoarthritis involving multiple joints (M89.49) Active confirmed Problem Atrial fibrillation (49389180) Atrial fibrillation status post cardioversion (I48.91) Active confirmed Problem Total hip replacement Prosthesis (860735173) History of total right hip replacement (Z96.641) Active confirmed Problem Systolic heart failure (703499684) HFrEF (heart failure with reduced ejection fraction) (I50.20) Active confirmed Problem Obstructive sleep apnea syndrome (97761129) NIGHAT on CPAP (G47.33) Active confirmed Problem Chronic respiratory failure (06601825) Chronic hypoxic respiratory failure (J96.11) Active confirmed Vital Signs Heart Rate 76 /min 03/24/2025 Respiratory Rate 22 /min 03/24/2025 Blood pressure diastolic 65 mm Hg 03/24/2025 Height 73.5 in 03/17/2025 Blood pressure systolic 110 mm Hg 03/24/2025 Weight 262.4 lbs 03/24/2025 BMI 34.04 kg/m2 03/17/2025 Encounters Encounter Location Date Provider Diagnosis [facility] [address] [place], [place] [id number] 05/06/2024 R Vinayak Rodrigueseet Dermatitis L30.[address] [place] [id number] [place] [id number] 06/03/2024 Cyndi Patton PUD (peptic ulcer disease) K27.9 ; Atrial fibrillation status post cardioversion I48.91 ; Type 2 diabetes mellitus E11.9 ; ASCVD (arteriosclerotic cardiovascular disease) I25.10 ; Dyslipidemia E78.5 ; New daily persistent headache G44.52 ; Primary osteoarthritis involving multiple joints M89.49 ; Nausea R11.0 ; Mild cognitive impairment G31.84 ; Hearing loss H91.90 ; Sleep disturbance G47.9 ; Depression F32.9 ; Hypotension I95.9 ; HFrEF (heart failure with reduced ejection fraction) I50.20 ; NIGHAT on CPAP G47.33 ; Weakness generalized R53.1 ; Vitamin deficiency E56.9 ; Hyperlipidemia E78.5 ; Post COVID-19 condition, 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 ; Hypoxia R09.02 ; Aortic stenosis Q25.3 ; Leg edema R60.0 and Voiding difficulty R39.198 [facility] [address] [id number] 06/19/2024 R Vinayak Chen ASCVD (arteriosclero tic cardiovascular disease) I25.10 ; HFrEF (heart failure with reduced ejection fraction) I50.20 ; Atrial fibrillation status post cardioversion I48.91 ; Type 2 diabetes mellitus E11.9 ; Dyslipidemia E78.5 ; Primary osteoarthritis involving multiple joints M89.49 ; Hyperlipidemia E78.5 and Aortic stenosis Q25.3 [facility] [address] [id number] 07/22/2024 R Vinayak Chen ASCVD (arteriosclero tic cardiovascular disease) I25.10 ; HFrEF (heart failure with reduced ejection fraction) I50.20 ; Atrial fibrillation status post cardioversion I48.91 ; Type 2 diabetes mellitus E11.9 ; Primary osteoarthritis involving multiple joints M89.49 and Aortic stenosis Q25.3 [facility] [address] [place] [id number] 08/12/2024 R Vinayak Chen Depression F32.9 ; B PH (benign prostatic hyperplasia) N40.0 and Encounter for immunization Z23 [facility] [address] [id number] 10/28/2024 R Vinayak Chen Influenzal pneumonia J11.00 ; Type 2 diabetes mellitus E11.9 ; CHF (congestive heart failure) I50.9 and Mitral regurgitation I34.0 [facility] 1210 [facility] [address] [place] [id number] 12/23/2024 Grady Chen GERD (gastroesophage al reflux disease) K21.9 ; Screening for prostate cancer Z12.5 ; Type 2 diabetes mellitus E11.9 ; ASCVD (arteriosclerotic cardiovascular disease) I25.10 ; Atrial fibrillation status post cardioversion I48.91 ; HFrEF (heart failure with reduced ejection fraction) I50.20 and Cervicalgia M54.2 [facility] [address] [place] [id number] 01/19/2025 Jericho [place] HFrEF (heart failure with reduced ejection fraction) I50.20 and Chronic hypoxic respiratory failure J96.11 [facility] [address] [place] [id number] 02/05/2025 Grady Chen Adult general medica l examination Z00.00 ; CHF (congestive heart failure) I50.9 ; Hypotension due to drugs I95.2 ; Type 2 diabetes mellitus E11.9 ; Depression F32.9 ; ASCVD (arteriosclerotic cardiovascular disease) I25.10 ; Primary osteoarthritis involving multiple joints M89.49 ; History of total right hip replacement Z96.641 ; Mild cognitive impairment G31.84 ; OAB (overactive bladder) N32.81 ; Hyperlipidemia E78.5 ; BMI 32.0-32.9,adult Z68.32 ; Aortic stenosis Q25.3 and BPH (benign prostatic hyperplasia) N40.0 [address] [place] [id number] 03/10/2025 Cyndi Patton Conjunctival hyperem ia, right eye H11.431 ; Other acute pulmonary embolism I26.99 ; Type 2 diabetes mellitus E11.9 ; ASCVD (arteriosclerotic cardiovascular disease) I25.10 ; Atrial fibrillation status post cardioversion I48.91 ; Primary osteoarthritis involving multiple joints M89.49 [...] ; GERD (gastroesophageal reflux disease) K21.9 ; Chronic hypoxic respiratory failure J96.11 ; Weakness generalized R53.1 ; Other hypotension I95.89 ; Surgical aftercare, musculoskeletal system Z47.89 ; NIGHAT on CPAP G47.33 ; Environmental allergies Z91.048 ; Dyslipidemia E78.5 and Debility R53.[address] [place] [id number] 03/17/2025 Cyndi Patton CHF (congestive hear t [...] Z91.048 ; Dyslipidemia E78.5 and Debility R53.81 [place] [address] [place] [id number] 03/24/2025 Cyndi Patton CHF (congestive hear t [...] pain M54.2 and Cervical pain (neck) M54.2 [facility] [address] [place], [place] [id number] 04/13/2025 R Vinayak Gustavo [facility] [address] [place], [place] [id number] 05/27/2024 R Vinayak Gustavo [facility] [address] [place], [place] [id number] 05/30/2024 R Vinayak Gustavo [facility] [address] [place], [place] [id number] 06/02/2024 R Vinayak Gustavo [facility] [address] [place], [place] [id number] 06/02/2024 R Vinayak Gustavo [facility] [address] [place], [place] [id number] 06/13/2024 R Vinayak Gustavo [facility] [address] [facility] [address] [place], [place] [id number] 07/08/2024 R Vinayak Gustavo [facility] [address] [place], [place] [id number] 07/14/2024 R Vinayak Gustavo [facility] [address] [place], [place] [id number] 12/16/2024 R Vinayak Gustavo Dyslipidemia E78.5 ; Type 2 diabetes mellitus E11.9 ; Atrial fibrillation status post cardioversion I48.91 and Leg edema R60.0 [facility] [address] [facility] [address] [place], [place] [id number] 12/29/2024 R Vinayak Gustavo [facility] [address] [place], [place] [id number] 01/23/2025 R Vinayak Gustavo HFrEF (heart failure with reduced ejection fraction) I50.20 ; Dyslipidemia E78.5 and Leg edema R60.0 [facility] [address] [place], [place] [id number] 01/23/2025 R Vinayak Gustavo HFrEF (heart failure with reduced ejection fraction) I50.20 ; Dyslipidemia E78.5 and Leg edema R60.0 [facility] [address] [place], [place] [id number] 02/10/2025 R Vinayak Gustavo [facility] [address] [place] [id number] 03/06/2025 R Vinayak Gustavo [facility] [address] [place], [place] [id number] 03/09/2025 R Vinayak Gustavo [facility] [address] [place] [id number] 03/12/2025 R Vinayak Gustavo [facility] [address] [place], [place] [id number] 03/12/2025 R Vinayak Gustavo [facility] [address] [place], [place] [id number] 03/13/2025 R Vinayak Gustavo [facility] [address] [place] [id number] 03/24/2025 R Vinayak Gustavo [facility] [address] [place], [place] [id number] 03/31/2025 R Vinayak Gustavo Surgical aftercare, musculoskeletal system Z47.89 [facility] [address] [place], [place] [id number] 04/06/2025 R Vinayak Gustavo [facility] [address] [place], [place] [id number] 04/07/2025 Cyndi Patton [facility] [address] [facility] [address] [place], [place] [id number] 04/08/2025 Cyndi [facility] [address] [facility] [address] [place] [id number] 04/09/2025 Cyndi Patton [facility] [address] [facility] [address] [place] [id number] 04/10/2025 Cyndi Lowond Assessments Encounter Date Diagnosis (ICD Code) Assessment Notes Treatment Notes Treatment Clinical Notes Section Notes 05/06/2024 Dermatitis (ICD-10 - L30.9) 06/03/2024 PUD (peptic ulcer disease) (ICD-10 - K27.9) 06/03/2024 Atrial fibrillation status post cardioversion (ICD-10 - I48.91) 06/19/2024 ASCVD (arteriosclerotic cardiovascular disease) (ICD-10 - I25.10) 06/19/2024 HFrEF (heart failure with reduced ejection fraction) (ICD-10 - I50.20) rashaun is wearin a life vest due to decreased EF; will continue to be followed by cardiology 07/22/2024 ASCVD (arteriosclerotic cardiovascular disease) (ICD-10 - I25.10) 08/12/2024 Depression (ICD-10 - F32.9) 10/28/2024 Type 2 diabetes mellitus (ICD-10 - E11.9) 08/12/2024 BPH (benign prostatic hyperplasia) (ICD-10 - N40.0) 10/28/2024 Influenzal pneumonia (ICD-10 - J11.00) He has completed his course of treatment and appears to be back to his baseline status. 12/16/2024 Dyslipidemia (ICD-10 - E78.5) 12/23/2024 GERD (gastroesophageal reflux disease) (ICD-10 - K21.9) 12/23/2024 Screening for prostate cancer (ICD-10 - Z12.5) 01/19/2025 HFrEF (heart failure with reduced ejection fraction) (ICD-10 - I50.20) 01/19/2025 Chronic hypoxic respiratory failure (ICD-10 - J96.11) Patient needs to use his oxygen continuously 01/23/2025 HFrEF (heart failure with reduced ejection fraction) (ICD-10 - I50.20) 01/23/2025 HFrEF (heart failure with reduced ejection fraction) (ICD-10 - I50.20) 02/05/2025 CHF (congestive heart failure) (ICD-10 - I50.9) He is scheduled to follow-up with his clinical allergist, Dr. Bosch in [place] 02/05/2025 Adult general medical examination (ICD-10 - Z00.00) Patient instructed to return to office Annually for Annual Wellness Visits to include annual screenings of Pain assessment, Functional Ability assessment, Cognitive Ability assessment, Fall Risk assessment, Depression screening and Bladder control screening. 03/10/2025 Conjunctival hyperemia, right eye (ICD-10 - H11.431) with ongoing eye pain and no improvement, ketorolac DC and milton start Tobrymycin x 5 days 03/10/2025 Other acute pulmonary embolism (ICD-10 - I26.99) LLL pt remains on Eliquis 03/17/2025 CHF (congestive heart failure) (ICD-10 - I50.9) 03/24/2025 CHF (congestive heart failure) (ICD-10 - I50.9) 03/31/2025 Surgical aftercare, musculoskeletal system (ICD-10 - Z47.89) 03/24/2025 Atrial fibrillation status post cardioversion (ICD-10 - I48.91) 03/17/2025 Atrial fibrillation status post cardioversion (ICD-10 - I48.91) 03/10/2025 Type 2 diabetes mellitus (ICD-10 - E11.9) [facility] PANTERA 01/23/2025 Dyslipidemia (ICD-10 - E78.5) 01/23/2025 Dyslipidemia (ICD-10 - E78.5) 02/05/2025 Hypotension due to drugs (ICD-10 - I95.2) He will decrease his diuretic to 1 tablet daily. 12/23/2024 Type 2 diabetes mellitus (ICD-10 - E11.9) 12/16/2024 Type 2 diabetes mellitus (ICD-10 - E11.9) 08/12/2024 Encounter for immunization (ICD-10 - Z23) 10/28/2024 CHF (congestive heart failure) (ICD-10 - I50.9) Continue follow-up with cardiology. 06/19/2024 Atrial fibrillation status post cardioversion (ICD-10 - I48.91) 07/22/2024 Atrial fibrillation status post cardioversion (ICD-10 - I48.91) 07/22/2024 HFrEF (heart failure with reduced ejection fraction) (ICD-10 - I50.20) continue to be followed by cardiology 06/03/2024 Type 2 diabetes mellitus (ICD-10 - E11.9) 06/03/2024 ASCVD (arteriosclerotic cardiovascular disease) (ICD-10 - I25.10) 07/22/2024 Type 2 diabetes mellitus (ICD-10 - E11.9) 06/19/2024 Type 2 diabetes mellitus (ICD-10 - E11.9) 10/28/2024 Mitral regurgitation (ICD-10 - I34.0) 12/23/2024 ASCVD (arteriosclerotic cardiovascular disease) (ICD-10 - I25.10) 12/16/2024 Atrial fibrillation status post cardioversion (ICD-10 - I48.91) 01/23/2025 Leg edema (ICD-10 - R60.0) 01/23/2025 Leg edema (ICD-10 - R60.0) 02/05/2025 Type 2 diabetes mellitus (ICD-10 - E11.9) 03/10/2025 ASCVD (arteriosclerotic cardiovascular disease) (ICD-10 - I25.10) 03/17/2025 Chronic hypoxic respiratory failure (ICD-10 - J96.11) continues with O2 prn continues with O2 prn 03/24/2025 Chronic hypoxic respiratory failure (ICD-10 - J96.11) continues with O2 prn continues with O2 prn 03/24/2025 Type 2 diabetes mellitus (ICD-10 - E11.9) [facility] PANTERA, Glucerna 03/17/2025 Type 2 diabetes mellitus (ICD-10 - E11.9) 03/10/2025 Atrial fibrillation status post cardioversion (ICD-10 - I48.91) 02/05/2025 Depression (ICD-10 - F32.9) 12/23/2024 Atrial fibrillation status post cardioversion (ICD-10 - I48.91) 12/16/2024 Leg edema (ICD-10 - R60.0) 07/22/2024 Primary osteoarthritis involving multiple joints (ICD-10 - M89.49) 06/19/2024 Dyslipidemia (ICD-10 - E78.5) 06/03/2024 Dyslipidemia (ICD-10 - E78.5) 06/03/2024 New daily persistent headache (ICD-10 - G44.52) 06/19/2024 Primary osteoarthritis involving multiple joints (ICD-10 - M89.49) 07/22/2024 Aortic stenosis (ICD-10 - Q25.3) 12/23/2024 HFrEF (heart failure with reduced ejection fraction) (ICD-10 - I50.20) 02/05/2025 ASCVD (arteriosclerotic cardiovascular disease) (ICD-10 - I25.10) 03/10/2025 Primary osteoarthritis involving multiple joints (ICD-10 - M89.49) 03/17/2025 Conjunctival hyperemia, right eye (ICD-10 - H11.431) he describes less eye discomfort; he has just seen eye MD with no new meds; he will see a retina specialist 03/24/2025 Conjunctival hyperemia, right eye (ICD-10 - H11.431) he describes no eye discomfort, just a hole in his vision;he has just seen eye MD with no new meds; he will see a retina specialist 03/24/2025 ASCVD (arteriosclerotic cardiovascular disease) (ICD-10 - I25.10) 03/24/2025 Primary osteoarthritis involving multiple joints (ICD-10 - M89.49) 03/17/2025 ASCVD (arteriosclerotic cardiovascular disease) (ICD-10 - I25.10) 03/10/2025 HFrEF (heart failure with reduced ejection fraction) (ICD-10 - I50.20) 02/05/2025 Primary osteoarthritis involving multiple joints (ICD-10 - M89.49) 12/23/2024 Cervicalgia (ICD-10 - M54.2) 06/19/2024 Hyperlipidemia (ICD-10 - E78.5) 06/03/2024 Primary osteoarthritis involving multiple joints (ICD-10 - M89.49) 06/19/2024 Aortic stenosis (ICD-10 - Q25.3) 06/03/2024 Nausea (ICD-10 - R11.0) 02/05/2025 History of total right hip replacement (ICD-10 - Z96.641) 03/10/2025 Leg edema (ICD-10 - R60.0) Will monitor; with recent ARF and hypotension will not increase; weight gain also noted 03/17/2025 Primary osteoarthritis involving multiple joints (ICD-10 - M89.49) 03/24/2025 HFrEF (heart failure with reduced ejection fraction) (ICD-10 - I50.20) 03/17/2025 HFrEF (heart failure with reduced ejection fraction) (ICD-10 - I50.20) 03/24/2025 Leg edema (ICD-10 - R60.0) Will monitor; with recent ARF and hypotension will not increase; weight gain also noted Will monitor; with recent ARF and hypotension will not increase; weight gain also noted 02/05/2025 Mild cognitive impairment (ICD-10 - G31.84) 03/10/2025 Depression (ICD-10 - F32.9) 06/03/2024 Mild cognitive impairment (ICD-10 - G31.84) 06/03/2024 Hearing loss (ICD-10 - H91.90) 03/10/2025 History of total right hip replacement (ICD-10 - Z96.641) 02/05/2025 OAB (overactive bladder) (ICD-10 - N32.81) 03/24/2025 Depression (ICD-10 - F32.9) 03/17/2025 Leg edema (ICD-10 - R60.0) Will monitor; with recent ARF and hypotension will not increase; weight gain also noted Will monitor; with recent ARF and hypotension will not increase; weight gain also noted 03/17/2025 Depression (ICD-10 - F32.9) 03/10/2025 Mild cognitive impairment (ICD-10 - G31.84) 03/24/2025 History of total right hip replacement (ICD-10 - Z96.641) 06/03/2024 Sleep disturbance (ICD-10 - G47.9) 02/05/2025 Hyperlipidemia (ICD-10 - E78.5) 02/05/2025 BMI 32.0-32.9,adult (ICD-10 - Z68.32) 06/03/2024 Depression (ICD-10 - F32.9) 03/24/2025 Mild cognitive impairment (ICD-10 - G31.84) 03/10/2025 BPH (benign prostatic hyperplasia) (ICD-10 - N40.0) 03/17/2025 History of total right hip replacement (ICD-10 - Z96.641) 03/24/2025 BPH (benign prostatic hyperplasia) (ICD-10 - N40.0) 03/17/2025 Mild cognitive impairment (ICD-10 - G31.84) 03/10/2025 OAB (overactive bladder) (ICD-10 - N32.81) 02/05/2025 Aortic stenosis (ICD-10 - Q25.3) 06/03/2024 Hypotension (ICD-10 - I95.9) 06/03/2024 HFrEF (heart failure with reduced ejection fraction) (ICD-10 - I50.20) currenty is wearin a life vest due to decreased EF; will continue to be followed by cardiology 02/05/2025 BPH (benign prostatic hyperplasia) (ICD-10 - N40.0) 03/10/2025 Hearing loss (ICD-10 - H91.90) 03/17/2025 BPH (benign prostatic hyperplasia) (ICD-10 - N40.0) 03/24/2025 OAB (overactive bladder) (ICD-10 - N32.81) 03/24/2025 Hearing loss (ICD-10 - H91.90) 03/17/2025 OAB (overactive bladder) (ICD-10 - N32.81) 03/10/2025 PUD (peptic ulcer disease) (ICD-10 - K27.9) 06/03/2024 NIGHAT on CPAP (ICD-10 - G47.33) 06/03/2024 Weakness generalized (ICD-10 - R53.1) working with PT 03/10/2025 GERD (gastroesophageal reflux disease) (ICD-10 - K21.9) 03/17/2025 Hearing loss (ICD-10 - H91.90) 03/24/2025 PUD (peptic ulcer disease) (ICD-10 - K27.9) 03/17/2025 PUD (peptic ulcer disease) (ICD-10 - K27.9) 03/24/2025 GERD (gastroesophageal reflux disease) (ICD-10 - K21.9) 03/10/2025 Chronic hypoxic respiratory failure (ICD-10 - J96.11) continues with O2 prn 06/03/2024 Vitamin deficiency (ICD-10 - E56.9) 06/03/2024 Hyperlipidemia (ICD-10 - E78.5) 03/17/2025 GERD (gastroesophageal reflux disease) (ICD-10 - K21.9) 03/10/2025 Weakness generalized (ICD-10 - R53.1) 03/24/2025 Weakness generalized (ICD-10 - R53.1) 03/24/2025 Surgical aftercare, musculoskeletal system (ICD-10 - Z47.89) to continue with PT; will complete ABX as per surgeon; PICC line with routine care; has labs as per infectious disease MD and FU with surgeon 03/10/2025 Other hypotension (ICD-10 - I95.89) 03/17/2025 Weakness generalized (ICD-10 - R53.1) 06/03/2024 Post COVID-19 condition, 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) 06/03/2024 Hypoxia (ICD-10 - R09.02) post COVID ; wearing O2 now; wean prn 03/17/2025 Surgical aftercare, musculoskeletal system (ICD-10 - Z47.89) to continue with PT; will complete ABX as per surgeon; PICC line with routine care 03/10/2025 Surgical aftercare, musculoskeletal system (ICD-10 - Z47.89) 03/24/2025 Environmental allergies (ICD-10 - Z91.048) 03/24/2025 Dyslipidemia (ICD-10 - E78.5) 03/10/2025 NIGHAT on CPAP (ICD-10 - G47.33) 03/17/2025 Environmental allergies (ICD-10 - Z91.048) 06/03/2024 Aortic stenosis (ICD-10 - Q25.3) 06/03/2024 Leg edema (ICD-10 - R60.0) 03/17/2025 Dyslipidemia (ICD-10 - E78.5) 03/24/2025 Debility (ICD-10 - R53.81) pt has made progress with PT and will continue 03/10/2025 Environmental allergies (ICD-10 - Z91.048) 03/10/2025 Dyslipidemia (ICD-10 - E78.5) 03/24/2025 Acute neck pain (ICD-10 - M54.2) 03/17/2025 Debility (ICD-10 - R53.81) pt has made progress with PT and will continue 06/03/2024 Voiding difficulty (ICD-10 - R39.198) 03/10/2025 Debility (ICD-10 - R53.81) pt has made progress with PT and will continue 03/24/2025 Cervical pain (neck) (ICD-10 - M54.2) 03/17/2025 Other discussed care after CR discharge; son is interested in Assisted care Plan Of Treatment Next Appt Details Provider Name:Grady Prajapati, 04/13/2025 11:32:00 AM, [address], [address], [place], [place], [id number], Insurance Providers Payer Name Payer Address Payer Phone Subscriber Number Group Number Insured Name Patient Relationship to Insured Coverage Start Date Coverage End Date [facility] [address] [address] [place] [address] [phone] [id number] YAZMIN TOBAR Self - patient is the insured Medications Administered Medication Instructions Date of Administration Dosage Notes celestone 12/27/2021 1.5 mL Medical (General) History Medical History History ICD Code Type 2 diabetes Heart murmur hypertension hyperlipidemia allergic rhinitis ulcers depression with anxiety NIGHAT -CPAP ASCVD Osteoarthritis Headaches BPH Atrial Fibrillation - s/p cardioversion - 06/2023 Valvular heart disease- severe mitral re gurg and severe Aortic stenosis HFrEF right hip abscess with right hip arthrot amanda with extensive debridement pulmonary emboli LLL Surgical History Surgery Date(Month/Year) appendectomy 1966 kidney stone removal 94', 04', 06' Bilateral shoulder surgery bilateral knee replacements Coronary stent x1 01/2021 back surgery x 3/ Arley Right MEKA/ Dr. Bosch 05/2022 Wash-out right hip joint/ Dr. Bosch 2021 Coronary stent x 1/ LAD 09/2023 Right hip arthrotomy with ex tensive debridement and head/liner exchange due to infection 02/22/2025 Hospitalization History Reason Date(Month/Year) [facility] with right hip abscess; right hip arthrotomy with extensive debridemenst and head/linerexchange; acute PE, T2DM, hypotension, HFmEF, BILATERAL PLEURAL EFFUSION; severe valvular heart disease; physical debility 02/16-03/08/2025 [facility] [place] : right hip effusion; T2 Dm, CHANTAL; await transfer to [facility] 02/14-02/15/2025 COVID; acute on chronic HRrE F; cady leg edemal NIGHAT;T2DM;Aortic stenosis; hypotension;severe generalized weakness; at fib -05/30/2024
--- OUTSIDE RECORDS SUMMARY | 2025-04-13 12:15 | XMS_ITS | Encounter Summary ---
Author Organization [employer] ([place], [place], [place], [place]) Address [address] [place] [address] Care Team Providers Care Grit Removal Operator Name Role Phone Stephen Chen MD Primary Care Provider [phone]- [phone] Encounter Details Date Type Department Care Team (Late st Contact Info) Description 12/11/2018 Transcribed Document [facility] [place] Family Medicine [address] [place] [address] ProviderMeredith MD [address] [place] [address] Social History Tobacco Use Types Packs/Day Years Used Date Smoking Tobacco: Never Assessed Sex and Gender Information Value Date Recorded Sex Assigned at Not on file Legal 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 C/O 7/10 chest pain radiating into back. NTG spray given sublinguil x1. MARILUZ MANN RN - 12/11/2018 16:43 EDT documented in this encounter Plan of Treatment Not on file documented as of this encounter Visit Diagnoses Not on filedocumented in this encounter Care Teams Grit Removal Operator Relationship Specialty Start Date End Date Stephen Chen MD [address] [place] [id number] PCP - General Family Medicine 09/26/23 documented as of this encounter
--- OUTSIDE RECORDS SUMMARY | 2025-04-13 12:15 | XMS_ITS | Encounter Summary ---
Author Organization [employer] ([place], [place], [place], [place]) Address [address] [place] [address] Care Team Providers Care Tire Bagger Name Role Phone Stephen Chen MD Primary Care Provider +1- [phone] Encounter Details Date Type Department Care Team (Late st Contact Info) Description 12/11/2018 Transcribed Document [facility] [place] [address] [place] [address] ProviderMeredith MD [address] [place] [address] Social History Tobacco Use Types Packs/Day Years Used Date Smoking Tobacco: Never Assessed Sex and Gender Information Value Date Recorded Sex Assigned at Not on file 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 MARILUZ MANN RN - 12/11/2018 16:47 EDT documented in this encounter Plan of Treatment Not on file documented as of this encounter Visit Diagnoses Not on filedocumented in this encounter Care Teams Tire Bagger Relationship Specialty Start Date End Date Stephen Chen MD [address] [place] [id number] PCP - General Family Medicine 09/26/23 documented as of this encounter
--- OUTSIDE RECORDS SUMMARY | 2025-04-13 12:15 | XMS_ITS | Encounter Summary ---
Author Organization [employer] ([place], [place], [place], [place]) Address [address] [place] [address] Care Team Providers Care Journeyman Electrician Pv Installer Name Role Phone Stephen Chen MD Primary Care Provider +1- [phone] Encounter Details Date Type Department Care Team (Late st Contact Info) Description 12/11/2018 Transcribed Document [facility] [place] [address] [place] [address] ProviderMeredith MD [address] [place] [address] Social History Tobacco Use Types Packs/Day Years Used Date Smoking Tobacco: Never Assessed Sex and Gender Information Value Date Recorded Sex Assigned at Not on file 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 REFERRING PHYSICIANS: 1. Dr. Aurora Bosch. 2. Dr. Steward. PROCEDURE: Standard left heart catheterization. TECHNIQUE: A 5/6-Macedonian sheath was placed in the right radial artery. JL3.5 diagnostic catheter was used for selective angiography of left coronary artery. The Porter catheter was used to cross into the left ventricle where pressures were measured. Pressures were recorded during pullback of the catheter into the ascending aorta. Following diagnostic catheterization, the FL3.5 guide catheter was used for IFR assessment across the proximal and mid LAD lesions. HEMODYNAMICS: Left ventricle 100/10 mmHg. Aorta 86/53 mmHg. DIAGNOSES: 1. Borderline single-vessel coronary artery disease confirmed to be non-clinically significant with IFR of 0.91. 2. Mild aortic stenosis by catheter pullback method. CORONARY ANATOMY: 1. Left main trunk: Minimally diseased. 2. LAD: Large caliber vessel which gives rise to a moderate caliber first diagonal branch and additional tiny diagonal branches before extending beyond the apex. There is calcification in the proximal midportion of the LAD. There is mild to moderate 40% to 50% narrowing present in the proximal portion of the LAD followed by an eccentric 60% narrowing in the midportion. The IFR across these lesions in total was 0.91. Minimal atherosclerosis in remaining portion of the LAD and diagonal branches. 3. Circumflex artery: Large caliber vessel, which gives rise to a large caliber bifurcating lateral branch, a small caliber posterolateral branch. There is diffuse mild atherosclerotic lesions of 40% narrowing present in the proximal midportion of the posterolateral branch. Diffuse mild atherosclerosis in remaining portion of the vessel. 4. Right coronary artery: Dominant vessel. Moderate caliber vessel which gives rise to a small caliber posterior descending artery and a small caliber posterolateral branch. Mild atherosclerosis in the right coronary artery. 5. Left ventricle: Normal left ventricular filling pressure with 15 mmHg gradient across the aortic valve. IMPRESSION: Angiographically, the patient has borderline single-vessel coronary artery disease confirmed to be nonclinically significant by IFR value of 0.91. There is mild aortic stenosis. Risk factor modification and medical management is recommended. Sy East M.D. Dict: 12/11/2018 16:07:30 Trans: 12/11/2018 21:27:10 CC1: Sy East M.D. CC2: Dr. Aurora Bosch CC3: Dr. Steward documented in this encounter Plan of Treatment Not on file documented as of this encounter Visit Diagnoses Not on filedocumented in this encounter Care Teams Journeyman Electrician Pv Installer Relationship Specialty Start Date End Date Stephen Chen MD [address] [place] [id number] PCP - General Family Medicine 09/26/23 documented as of this encounter
--- OUTSIDE RECORDS SUMMARY | 2025-04-13 12:15 | XMS_ITS | Encounter Summary ---
Author Organization [employer] ([place], [place], [place], [place]) Address [address] [place] [address] Care Team Providers Care Granulator Tender Name Role Phone Stephen Chen MD Primary Care Provider [phone]- [phone] Encounter Details Date Type Department Care Team (Late st Contact Info) Description 12/11/2018 Transcribed Document [facility] [place] [address] [place] [address] ProviderMeredith MD [address] [place] [address] Social History Tobacco Use Types Packs/Day Years Used Date Smoking Tobacco: Never Assessed Sex and Gender Information Value Date Recorded Sex Assigned at Not on file 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 ??? Take pyqa-ohh-roxykhp and prescription medicines only as told by [...] 06/24/2014 Document Revised: 02/05/2017 Document Reviewed: 12/23/2016 [employer] Interactive Patient Education ? 2017 [employer] Pulmonary Medicine Radial Site Care Introduction Refer to this [...] 02/08/2017 Document Reviewed: 03/22/2015 ? 2017 [employer] Radiology Coronary Angiogram A coronary angiogram is an [...] including vitamins, herbs, eye drops, creams, and [id number] medicines. ??? Any problems you or family [...] 03/09/2004 Document Revised: 06/15/2017 Document Reviewed: 06/15/2017 [employer] Interactive Patient Education ? 2017 [employer] documented in this encounter Plan of Treatment Not on file documented as of this encounter Visit Diagnoses Not on filedocumented in this encounter Care Teams Granulator Tender Relationship Specialty Start Date End Date Stephen Chen MD [address] [place] [id number] PCP - General Family Medicine 09/26/23 documented as of this encounter
--- OUTSIDE RECORDS SUMMARY | 2025-04-13 12:15 | XMS_ITS | Encounter Summary ---
Author Organization [employer] ([place], [place], [place], [place]) Address [address] [place] [address] Care Team Providers Care Furnace Puncher Name Role Phone Stephen Chen MD Primary Care Provider [phone]- [phone] Encounter Details Date Type Department Care Team (Late st Contact Info) Description 12/11/2018 Transcribed Document [facility] [place] Family Medicine [address] [place] [address] ProviderMeredith MD [address] [place] [address] [id number] Social History Tobacco Use Types Packs/Day Years Used Date Smoking Tobacco: Never Assessed Sex and Gender Information Value Date Recorded Sex Assigned at Not on file 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 he was seen by Dr Bosch with complaints of worsening dyspnea. He underwent a stress MPI that was abnormal suggesting anterior ischemia. An echo was also done that shows moderate . He has been scheduled for elective cardiac cath. Review of Systems Constitutional: Negative except as documented in history of present illness. Eye: Negative except as documented in history of present illness. Ear/Nose/Mouth/Throat: Negative except as documented in history of present illness. Respiratory: Negative except as documented in history of present illness. Cardiovascular: Negative except as documented in history of present illness. Gastrointestinal: Negative except as documented in history of present illness. Genitourinary: Negative except as documented in history of present illness. Hematology/Lymphatics: Negative except as documented in history of present illness. Endocrine: Negative except as documented in history of present illness. Immunologic: Negative except as documented in history of present illness. Musculoskeletal: Negative except as documented in history of present illness. Integumentary: Negative except as documented in history of present illness. Neurologic: Negative except as documented in history of present illness. Psychiatric: Negative except as documented in history of present illness. Health Status Allergies (2) Active Reaction Alcohol None Documented tetanus toxoid None Documented Home Medications (8) Active Flomax 0.4 mg oral capsule 0.4 mg = 1 Cap, Oral, Daily Flonase 1 [place], Nostrils Both, Daily Klor-Con M10 10 mEq, Oral, Daily Lasix 20 mg oral tablet 20 mg = 1 Tab, Oral, Daily meclizine 25 mg oral tablet 25 mg = 1 Tab, Oral, Daily metFORMIN 1000 mg oral tablet 1,000 mg = 1 Tab, Oral, BID Paxil 40 mg oral tablet 40 mg = 1 Tab, Oral, Daily PRAVAstatin 80 mg oral tablet 80 mg = 1 Tab, Oral, Daily Allergies: Allergic Reactions (Selected) Severity Not Documented Alcohol- No reactions were documented. Gas, diesel fuel, alcohol- Difficulty breathing and difficulty breathing. Tetanus toxoid- No reactions were documented. Current medications: (Selected) Documented Medications Documented Flomax 0.4 mg oral capsule: 1 Cap, Oral, Daily, 30 Cap, 0 Refill(s) Flonase: 1 [place], Nostrils Both, Daily, uses as needed, 0 Refill(s) Klor-Con M10: 10 mEq, Oral, Daily, 0 Refill(s) Lasix 20 mg oral tablet: 1 Tab, Oral, Daily, 30 Tab, 0 Refill(s) PRAVAstatin 80 mg oral tablet: 1 Tab, Oral, Daily, 30 Tab, 0 Refill(s) Paxil 40 mg oral tablet: 1 Tab, Oral, Daily, 30 Tab, 0 Refill(s) meclizine 25 mg oral tablet: 1 Tab, Oral, Daily, 0 Refill(s) metFORMIN 1000 mg oral tablet: 1 Tab, Oral, BID, 180 Tab, 0 Refill(s) Problem list: All Problems Allergic rhinitis / SNOMED CT 780514996 / Confirmed Hyperlipidemia / SNOMED CT 53042366 / Confirmed Hypertension / SNOMED CT 38350952 / Confirmed Peptic ulcer disease / SNOMED CT 0229067624 / Confirmed Disorder of prostate / SNOMED CT 07261784 / Confirmed Diabetes mellitus / SNOMED CT 360378734 / Confirmed Acute gout / SNOMED CT 647555618 / Confirmed Renal calculus / SNOMED CT 762658366 / Confirmed CAD - Coronary artery disease / SNOMED CT 3262189448 / Confirmed HTN - Hypertension / SNOMED CT 3048780061 / Confirmed HLD - Hyperlipidemia / SNOMED CT 938409913 / Confirmed Histories No education data available. 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 Procedure history: appendectomy. heart cath.. kidney stones removed. colonoscopy. prostate surg. right shoulder surg.. cady knee surg.. back surg x 3. staph infection after back surg.. Physical Examination General: Alert and oriented. Eye: Pupils are equal, round and reactive to light. HENT: Normocephalic. Neck: Supple, No carotid bruit, No jugular venous distention. Respiratory: Lungs are clear to auscultation, Respirations are non-labored, Breath sounds are equal. Cardiovascular: Normal rate, Regular rhythm, No murmur, No gallop, Good pulses equal in all extremities. Gastrointestinal: Soft, Non-tender, Non-distended, Normal bowel sounds. Musculoskeletal: Normal range of motion, Normal strength. Integumentary: Warm, Dry, [place]. Neurologic: Alert, Oriented. Psychiatric: Cooperative. Review / Management No qualifying data available Cardiac Markers (Current Encounter/Past 24 Hours) No Cardiac Marker Results Found (Past 24 Hours) Blood Gases (Current Encounter/Past 24 Hours) No Blood Gas Results Found (Past 24 Hours) No Radiology Results Found Results review: No qualifying data available. Impression and Plan IIMPRESSION: * Intermittent CP and lifestyle limiting dyspnea- abnormal stress MPI suggesting anterior ischemia. Nonrheumatic HD- moderate per recent ECHO * HTN * HLD PLAN; Cardiac cath with possible catheter based intervention. Risks, benefits, and alternative therapy discussed in detail. He has given verbal and written consent. Hold Metformin 48 hr post cath. Add ASA. Other CV meds pending cath. Continue other current CV meds. Electronically signed by Fransisco, [facility] Conversion Rehabilitation Tech Cerner at 01/05/2023 10:25 AM CDT documented in this encounter Plan of Treatment Not on file documented as of this encounter Visit Diagnoses Not on filedocumented in this encounter Care Teams Furnace Puncher Relationship Specialty Start Date End Date Stephen Chen MD [address] [place] [phone] PCP - General Family Medicine 09/26/23 documented as of this encounter
--- OUTSIDE RECORDS SUMMARY | 2025-04-13 12:15 | XMS_ITS | Encounter Summary ---
Author Organization [employer] ([place], [place], [place], [place]) Address [address] [place] [address] Care Team Providers Care Special Order Jeweler Name Role Phone Stephen Chen MD Primary Care Provider [phone]- [phone] Encounter Details Date Type Department Care Team (Late st Contact Info) Description 12/11/2018 Transcribed Document [facility] [place] Family Medicine [address] [place] [address] ProviderMeredith MD [address] [place] [address] Social History Tobacco Use Types Packs/Day Years Used Date Smoking Tobacco: Never Assessed Sex and Gender Information Value Date Recorded Sex Assigned at Not on file 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 Gender Identity Not on file Sexual Orientation Not on file documented as of this encounter Miscellaneous Notes * Cerner Conversion Note - Meredith ProviderMD - 12/11/2018 6:02 PM CDT Nursing Discharge Summary Entered On: 12/11/2018 18:03 EDT Performed On: 12/11/2018 18:02 EDT by MARILUZ MANN, manager agriculture Documentation Discharge Date/Time : 12/11/2018 18:45 EDT Patient Disposition, General : Discharge Discharge To : Home with ambulatory/outpatient follow-up Mode Of Departure, General Discharge : Private vehicle, Wheelchair Accompanied By, Discharge : Son IV Discontinued : Yes Personal Belongings With Patient : Yes Prescriptions Given to Patient : Electronically sent Discharge Instructions Reviewed With, Opportunity For Questions Given : Patient, Son Patient Education Completed : Yes Teaching Method : Explanation, Printed materials Teaching Evaluation : Returns demonstration, Verbalizes understanding MARILUZ MANN, ELLEN - 12/11/2018 18:02 EDT documented in this encounter Plan of Treatment Not on file documented as of this encounter Visit Diagnoses Not on filedocumented in this encounter Care Teams Special Order Jeweler Relationship Specialty Start Date End Date Stephen Chen MD [address] [place] [phone] PCP - General Family Medicine 09/26/23 documented as of this encounter
--- OUTSIDE RECORDS SUMMARY | 2025-04-13 12:15 | XMS_ITS | Encounter Summary ---
Author Organization [employer] ([place], [place], [place], [place]) Address [address] [place] [address] Care Team Providers Care Materials Inspector Name Role Phone Stephen Chen MD Primary Care Provider [phone]- [phone] Encounter Details Date Type Department Care Team (Late st Contact Info) Description 12/11/2018 Transcribed Document [facility] [place] Family Medicine [address] [place] [address] ProviderMeredith MD [address] [place] [address] Social History Tobacco Use Types Packs/Day Years Used Date Smoking Tobacco: Never Assessed Sex and Gender Information Value Date Recorded Sex Assigned at Not on file 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 Driving After Discharge : Other: No driving for 24 hours. Showering/Bathing : May shower, Other: Tomorrow Wound/Incision Care After Discharge : Keep operative site/wound site clean and dry MARILUZ MANN RN - 12/11/2018 18:03 EDT Electronically signed by Fransisco [facility] Conversion Calculation Clerk Cerner at 01/05/2023 10:33 AM CDT documented in this encounter Plan of Treatment Not on file documented as of this encounter Visit Diagnoses Not on filedocumented in this encounter Care Teams Materials Inspector Relationship Specialty Start Date End Date Stephen Chen MD [address] [place] [phone] PCP - General Family Medicine 09/26/23 documented as of this encounter
--- OUTSIDE RECORDS SUMMARY | 2025-04-13 12:16 | XMS_ITS | Encounter Summary ---
Author Organization [employer] ([place], [place], [place], [place]) Address [address] [place] [address] Care Team Providers Care Chain Mortiser Operator Name Role Phone Stephen Chen MD Primary Care Provider [phone]- [phone] Encounter Details Date Type Department Care Team (Late st Contact Info) Description 06/10/2020 Transcribed Document [facility] [place] Family Medicine [address] [place] [address] ProviderMeredith MD [address] [place] [address] Social History Tobacco Use Types Packs/Day Years Used Date Smoking Tobacco: Never Assessed Sex and Gender Information Value Date Recorded Sex Assigned at Not on file 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 Name: YAZMIN KING /Sex: 1935 Male Med Rec #: [id number] Physician: YAZMIN HUTCHISON JR, MD-PLA Financial #: [id number] Pt. Type: O Room/Bed: Admit/Disch: 06/10/20 08:45:00 - Institution: [facility] [place] IntraOp Case Attendance Entry 1 Entry 2 Entry 3 Case Attendee YAZMIN HUTCHISON JR, Matonich, April, STULL, WILMER A, SUPERINTENDENT TESTS MD-JULIUS Food Production Manager Role Performed Surgeon/Proceduralist, Scrub, First SUPERINTENDENT TESTS/Nurse Plastics Process Hand First Time In 06/10/20 09:55:00 06/10/20 09:55:00 06/10/20 09:55:00 Time Out 06/10/20 10:50:00 06/10/20 10:50:00 06/10/20 10:50:00 Procedure Carpal Tunnel Release Carpal Tunnel Release Carpal Tunnel Release Other Attendee Superficial Wound Closed By: Last Modified By: ALYSON GUARDADO, ALYSON FREDERICK RN MARX, CONNIE, RN 06/10/20 11:06:00 06/10/20 11:06:00 06/10/20 11:06:00 Entry 4 Case Attendee ALYSON GUARDADO RN Role Performed Multimedia Developer, First Time In 06/10/20 09:55:00 Time Out 06/10/20 10:50:00 Procedure Carpal Tunnel Release Other Attendee Superficial Wound Closed By: Last Modified By: ALYSON GUARDADO RN 06/10/20 11:06:00 [facility] IntraOp Case Attendance Audit 06/10/20 11:06:00 Corporate Safety Director: MARXCO Modifier: MARXCO 1 <+> Time Out 1 <*> Procedure Carpal Tunnel Release 2 <+> Time Out 2 <*> Procedure Carpal Tunnel Release 3 <+> Time Out 3 <*> Procedure Carpal Tunnel Release 4 <+> Time Out 4 <*> Procedure Carpal Tunnel Release 06/10/20 10:34:14 Corporate Safety Director: MARXCO Modifier: MARXCO <+> 1 Procedure 2 <*> Procedure Carpal Tunnel Release 3 <*> Procedure Carpal Tunnel Release 4 <*> Procedure Carpal Tunnel Release 06/10/20 10:33:06 Corporate Safety Director: MARXCO Modifier: MARXCO 2 <+> Time In 2 <*> Procedure Carpal Tunnel Release 3 <+> Time In 3 <*> Procedure Carpal Tunnel Release 4 <+> Time In 4 <*> Procedure Carpal Tunnel Release [facility] IntraOp Case Times Entry 1 Patient In Room Time 06/10/20 09:55:00 Out Room Time 06/10/20 10:50:00 Anesthesia Start Time 06/10/20 09:55:00 Stop Time 06/10/20 10:50:00 Anesthesia Ready 06/10/20 09:55:00 Surgery / Procedure Times Start Time 06/10/20 10:26:00 Stop Time 06/10/20 10:38:00 Last Modified By: ALYSON GUARDADO RN 06/10/20 11:05:54 [facility] IntraOp Case Times Audit 06/10/20 11:05:54 Corporate Safety Director: BENOITO Modifier: MARXCO <+> 1 Out Room Time <+> 1 Stop Time <+> 1 Stop Time [facility] IntraOp Cautery Entry 1 ESU Identification Cautery Type BiPolar ESU Cautery Type bipolar Comments ID Number [id number] ID Type Hospital Number Cautery Settings Bipolar Setting 20 ESU Grounding Pad Last Modified By: ALYSON GUARDADO RN 06/10/20 10:29:13 [facility] IntraOp Communication Entry 1 Communication To Family/Significant other Communication By ALYSON GUARDADO RN Date and Time 06/10/20 10:28:00 Last Modified By: ALYSON GUARDADO RN 06/10/20 10:29:27 [facility] IntraOp Counts Verification Entry 1 Procedure Carpal Tunnel Release Count Info Count Type Sponge, Sharps Counts Verification Baseline/pre-procedure Sequence Count Results Not Applicable Counts Performed By Count Performed By Ricarda Campbell, (Scrub) Food Production Manager Count Performed By ALYSON GUARDADO RN (RN) Last Modified By: ALYSON GUARDADO RN 06/10/20 10:29:46 [facility] IntraOp Counts Final Entry 1 Procedure Carpal Tunnel Release Final Count Info Count Type Sponge, Sharps Counts Verification Skin Closure/end of Sequence procedure Counts Performed By Count Performed By Ricarda Campbell, (Scrub) Food Production Manager Count Performed By ALYSON GUARDADO RN (RN) Last Modified By: ALYSON GUARDADO RN 06/10/20 10:29:56 [facility] IntraOp Departure from OR Entry 1 Integumentary Assessment Integumentary WDL Assessment WDL Transfer/Handoff Transfer to PACU Phase I Handoff Method Bedside/Face to face Post-op Transport Stretcher/Gurney Via Patient Transport ALYSON GUARDADO RN, Accompanied by WILMER RODRIGUEZ CRNA Last Modified By: ALYSON GUARDADO RN 06/10/20 10:30:52 [facility] IntraOp Dressing and Packing Entry 1 Type Dressing Location OP SITE Wound Dressing Item 4x4's, Adaptic, Webril, Coban Applied By YAZMIN HUTCHISON JR, MD-PLA Last Modified By: ALYSON GUARDADO RN 06/10/20 10:31:00 [facility] IntraOp Fire Risk Assessment Entry 1 Fire Info Surgical Site or 0- No Incision Above the Xyphoid Open O2 Source 1- Yes (Mask or Cannula) Available Ignition 1- Yes (ESU, Laser, Light Source) Fire Risk 2 Assessment Score Fire Score Fire Risk Yes Assessment Complete Fire Risk ALYSON GUARDADO RN Assessment Verified By Fire Risk 06/10/20 09:55:00 Assessment Verified Date/Time Fire Risk Standard Fire Yes Safety Precautions Followed Last Modified By: ALYSON GUARDADO RN 06/10/20 10:31:13 [facility] IntraOp General Case Reinforcing Rod Layer 1 Case Information OR OR 06 SJE Case Level 1 Room Verified Yes Wound Class I - Clean Specialty SN Hand Anesthesia Type General ASA Class 3 Diagnosis Preop Diagnosis right carpal tunnel syndrome Postop Same As Preop Yes Postop Diagnosis right carpal tunnel syndrome Last Modified By: ALYSON GUARDADO RN 06/10/20 10:31:47 [facility] IntraOp Intraoperative Assessment Entry 1 Handoff Method Bedside/Face to face Valid History / Yes Physical in Chart Preoperative Yes Checklist Reviewed/Evaluated Allergies Reviewed Yes Patient is Latex No Sensitive Isolation Not applicable Precautions Noted Level of WDL Consciousness (WDL = Alert, Oriented to Person, Place, and Time) Skin Assessment Yes Verified Present Upon IVs Arrival to OR Last Modified By: ALYSON GUARDADO RN 06/10/20 10:32:07 [facility] IntraOp Medication Admin Entry 1 Entry 2 Entry 3 Medication/Irrigant lidocaine 1% Marcaine 0.5% 10ml vial Neosporin 15Gm ointment preservative free 30m - [id number] vial - [id number] Combo Med List Time Administered Route of LOCAL LOCAL TOPCIAL Administration Dose Dose 5 5 Unit of Measure ml ml Volume QS Administered By YAZMIN HUTCHISON JR, O'NEILL JR, WILLIAM L, O'NEILL JR, WILLIAM L, MD-PLA MD-PLA MD-PLA Procedure Irrigation Irrigant Volume In Irrigant Volume Out Last Modified By: DEBBYALYSON RN MARX, CONNIE, RN MARX, CONNIE, RN 06/10/20 10:32:36 06/10/20 10:32:36 06/10/20 10:32:36 [facility] IntraOp Patient Positioning Entry 1 Procedure Carpal Tunnel Release Body Position Supine Left Arm Position Resting at side Right Arm Position Extended on hand table Left Leg Position Uncrossed, parallel Right Leg Position Uncrossed, parallel Feet Uncrossed Yes Pressure Points Yes Checked Positioning Devices Pillows, Table, Hand Device Position OPERATIVE ARM ON HAND TABLE. PT. LEFT ON STRETCHER, PILLOWS UNDER HEAD AND KNEES. Positioned By ALYSON GUARDADO RN, WILMER RODRIGUEZ CRNA, KIANNA HANEY, YAZMIN West MD-COX MONETT, [employer], Ricarda, Food Production Manager Position Verified Positioning Yes Verified by Anesthesia Positioning Yes Verified by Surgeon Last Modified By: ALYSON GUARDADO RN 06/10/20 10:33:00 [facility] IntraOp Sign In Entry 1 Patient, Site, Yes Procedure Identified Surgical Consent Yes Confirmed Relevant Surgical Yes Documents Available Surgical Site Yes Marked by person performing procedure Anesthesia Machine Yes Check Completed Medication Checks Yes Completed Allergies Yes Airway Difficult No Airway/Aspiration Risk Difficult Yes Airway/Aspiration Intervention Equipment Available Blood Loss Risk Yes Blood Loss No Intervention Equipment Prepared and Ready Blood Identifiers Not applicable Verified Per Policy Hypothermia Risk Yes Warming Measures Yes Taken Last Modified By: ALYSON GUARDADO RN 06/10/20 10:33:05 [facility] Intra Op Sign Out Entry 1 RN Confirmation Surgical Yes Procedure(s) Identified Instrument, Sponge Yes and Sharps Counts Correct/Documented Equipment Problems N/A Documented Specimen Labeled N/A Correctly Urinary Catheter N/A Documented in IView Rock Patient Yes Recovery Concerns Reviewed with Anesthesia Provider, Surgeon and RN Rock Patient Yes Management Concerns Reviewed with Anesthesia Provider, Surgeon and RN Safety Checklist Yes Elements Complete? RN Sign Out ALYSON GUARDADO RN Signature RN Sign Out 06/10/20 10:33:00 Signature Date/Time Plan of Care Outcome - Fire Risk OUTCOME STATEMENT: Goal met Patient is free from injury related to surgical fire Plan of Care Outcome - Pt Positioning OUTCOME STATEMENT: Goal met Absence of signs and symptoms of positioning injury. Plan of Care Outcome - Skin Prep OUTCOME STATEMENT: Goal met Intraoperative care is consistent with measures to prevent infection Plan of Care Outcome - Xray/Images OUTCOME STATEMENT: N/A Absence of observable signs or symptoms of radiation injury Plan of Care Outcome - Counts OUTCOME STATEMENT: Goal met Absence of signs and symptoms of injury related to extraneous objects Last Modified By: ALYSON GUARDADO RN 06/10/20 10:33:13 [facility] IntraOp Skin Prep Entry 1 Procedure Carpal Tunnel Release Prescribed Yes Pre-Surgical Prep Completed Prep Area OPSITE Intraop Prep Integumentary WDL Assessment WDL Prep Agents Betadine solution, Betadine scrub Prep by ALYSON GUARDADO RN Hair Removal Last Modified By: ALYSON GUARDADO RN 06/10/20 10:31:54 [facility] IntraOp Surgical Procedures Entry 1 Procedure Carpal Tunnel Release Additional RIGHT CARPAL TUNNEL Procedure RELEASE Description Primary Procedure Yes Primary Surgeon YAZMIN HUTCHISON JR, MD-PLA Start 06/10/20 10:26:00 Stop 06/10/20 10:38:00 Anesthesia Type General Specialty SN Hand Wound Class I - Clean Last Modified By: ALYSON GUARDADO RN 06/10/20 11:05:57 [facility] IntraOp Surgical Procedures Audit 06/10/20 11:05:57 Corporate Safety Director: PANCHOBREEO Modifier: MARXCO <+> 1 Stop [facility] IntraOp Time Out Entry 1 Procedure to be Carpal Tunnel Release Performed Time Out Time Out Pause Time 06/10/20 10:25:00 All activity Yes suspended (unless life threatening emergency) Team Verbally Correct patient Confirms Information identity, Correct side and site are marked, Consent form is present and accurate, Agreement on the procedure to be done, Correct patient position, Confirm antibiotics have been administered, Confirm the skin prep has dried, Performed in location of procedure after prepped/draped, Performed before each procedure if multiple procedures, Reconcile problems if responses among team members differ Antibiotic Yes Prophylaxis Administered Or In Progress Within the Last 60 Minutes Beta Ada N/A Administered Venous N/A Thromboembolism Prophylaxis Required Anticipated Critical Events Surgeon None expected Anesthesia Provider None expected Nursing Assures Sterility of instruments Essential Imaging N/A Labeled and Displayed Last Modified By: ALYSON GUARDADO RN 06/10/20 10:30:40 [facility] IntraOp Tourniquet Entry 1 Type Pneumatic Serial/Unit Number [id number] Setting 250 mmHg Pheumatic Yes Tourniquet Checked Per Protocol Size 18 inches Placement Upper arm, right Skin Protection - Yes Padded Under Cuff Applied By YAZMIN HUTCHISON JR, MD-PLA Removed By YAZMIN HUTCHISON JR, MD-JULIUS Times Start Time 06/10/20 10:25:00 Stop Time 06/10/20 10:36:00 Last Modified By: ALYSON GUARDADO RN 06/10/20 11:05:27 [facility] IntraOp Tourniquet Audit 06/10/20 11:05:27 Corporate Safety Director: MARXCO Modifier: MARXCO <+> 1 Stop Time 06/10/20 10:34:09 Corporate Safety Director: MARXCO Modifier: MARXCO <+> 1 Serial/Unit Number Case Comments <None> Finalized By: ALYSON GUARDADO, RN Document Signatures Signed By: ALYSON GUARDADO RN 06/10/20 11:06 documented in this encounter Plan of Treatment Not on file documented as of this encounter Visit Diagnoses Not on filedocumented in this encounter Care Teams Chain Mortiser Operator Relationship Specialty Start Date End Date Stephen Chen MD [address] [place] [phone] PCP - General Family Medicine 09/26/23 documented as of this encounter
--- OUTSIDE RECORDS SUMMARY | 2025-04-13 12:16 | XMS_ITS | Encounter Summary ---
Author Organization [facility] Address [address] [place] [address] Care Team Providers Care Bisque Placer Name Role Phone No Pcp, Per Patient Primary Care Provider Robyn arshad Reason for Visit * Reason Onset Date Comments Other 03/16/2025 Encounter Details Date Type Department Care Team (Late st Contact Info) Description 03/16/2025 [place] [address] Mason Jacome DO [address] [place] [address] Other Social History Tobacco Use Types Packs/Day Years Used Date Smoking Tobacco: Never Assessed [facility] Utilities Answer Date Recorded In the past 12 months has [employer] electric, gas, oil, or water company threatened to shut off services in your home? No 02/16/2025 Overall Financial Resource Strain (CARDIA) Answe r Date Recorded How hard is it for you to pa y for the very basics like food, housing, medical care, and heating? Not very hard 02/16/2025 PHQ-2 Answer Date Recorded PHQ-2 Total Score 0 02/16/2025 [facility] [place] [facility] [employer] - Occupational Stress [...] money to get more. Never true 02/16/2025 [facility] IP Transportation Answer D ate Recorded [...] as of this encounter Miscellaneous Notes * Telephone Encounter - Reji Calderon Ortho Tech - 03/16/2025 10:46 AM EDT called and lvm. [facility] * Telephone Encounter - Klarissa Ni - 03/16/2025 10:06 AM EDT returning our call...please return call documented in this encounter Plan of Treatment Upcoming Encounters Date Type Department Care Team (Late st Contact Info) Description 04/28/2025 3:45 PM EDT Office Visit [facility] Infectious Disease [facility] [address] [place] [address] [place] [phone] Nick lEkins MD [address] [place] [id number] documented as of this encounter Visit Diagnoses Not on filedocumented in this encounter Care Teams Bisque Placer Relationship Specialty Start Date End Date No Pcp, Per Patient PCP - General 02/16/25 documented as of this encounter
--- OUTSIDE RECORDS SUMMARY | 2025-04-13 12:16 | XMS_ITS | Data Portability ---
Author Organization [facility] ADMIN Address [address] [place] [id number] Assessment No assessment recorded. Plan of Treatment Reminders Order Date Submit Date Provider Last Modified By Organization Details Last Modified Time Details Appointments None recorded. Lab urinalysis, dipstick [address] [facility], [address] [place] [address], [id number], 12:56:48 culture, urine [address] (Lab Registration) , [address] [place] [address] [place], [address], 07:13:46 urinalysis, microscopic [address] [facility], [address] [place] [address], [phone], 07:13:46 Referral None recorded. Procedures bladder scan (PROC) [address] [facility], [address] [place] [address], [id number], 07:13:46 Surgeries None recorded. Imaging None recorded. Medication Orders finasteride 5 mg tablet [address] [facility], [address] [place], [address], 12:11:27 Patient TargetsNo targets recorded. Patient InstructionsNo instructions recorded. Reason for Referral None Reported. Results Created Date Observation Date Name Description Value Unit Range Abnormal Flag Note LastModifiedBy Organization Detail LastModifiedTime 11/16/1911/15/2022 CULTU RE URINE W PRESU MP ID results RKM 11-16 [id number] No Signi fican t Growt h at 1 Day [facility] 11-17 714 Fil[address] te:1 70,00 0 Colon y Count Gram Negat mingo Rods [facility] 11-17 715 Filion te:2 >100, 000 Colon y Count Enter ococc us Not Available [facility] (Pre-Op Clinic) [address] [place] [address] [place], [address], 11/17/2022 07:16:35 11/16/1911/15/2022 CULTU RE URINE W PRESU MP ID note Unles s other snyder noted testi ng perfo rmed at: [facility] [address] [place] [place] [address] Brijesh flores MD Not Available [facility] (Pre-Op Clinic) [address] [place] [address] [place], [address], 11/17/2022 07:16:35 11/16/19 23 11/15/2022 CULTU RE URINE W PRESU MP ID culur ===== ===== ===== ===== ===== ===== ===== ===== ===== ===== ===== ===== ===== ===== ===== ===== ===== ===== ===== ===== ===== ===== ===== ===== CULTU RE NO.: [id number] Exam Statu s: Final Exam Type: [...] fican t Growt h at 1 Day [facility] 11-17 714 Filion te:1 70,00 0 Colon y Count Gram Negat mingo Rods [facility] 11-17 715 Filion te:2 >100, 000 Colon y Count Enter ococc us Not Available [facility] (Pre-Op Clinic) [address] [place] [address] Dr, [place], [address], 11/18/2022 06:54:36 11/16/19 23 11/15/2022 CULTU RE URINE W PRESU MP ID note Unles s other snyder noted testi ng perfo rmed at: [facility] [address] [place] [address] Brijesh flores MD Not Available [facility] (Pre-Op Clinic) [address] [facility] [place], [address], 11/18/2022 06:54:36 11/16/1911/15/2022 urina lysis , micro scopi c GLUCOSE negati ve Not Available [facility] [address] [place] [address], [phone], 11/15/2022 15:33:11 11/16/19 23 11/15/2022 urina lysis , micro scopi c BILIRUBIN negati ve Not Available [facility] [address] [place] [address], [phone], 11/15/2022 15:33:11 11/16/19 23 11/15/2022 urina lysis , micro scopi c KETONE negati ve Not Available [facility] [address] [place] [address], [phone], 11/15/2022 15:33:11 11/16/19 23 11/15/2022 urina lysis , micro scopi c SPECIFIC GRAVITY 1.025 Not Available [facility] [address] [place] [address], [phone], 11/15/2022 15:33:11 11/16/19 23 11/15/2022 urina lysis , micro scopi c BLOOD Negati ve Not Available [facility] [address] [place] [address], [address], 11/15/2022 15:33:11 11/16/19 23 11/15/2022 urina lysis , micro scopi c pH 6.5 Not Available [facility] [address] [place] [address], [address], 11/15/2022 15:33:11 11/16/19 23 11/15/2022 urina lysis , micro scopi c PROTEIN Negati ve Not Available [facility] [address] [place] [address], [phone], 11/15/2022 15:33:11 11/16/19 23 11/15/2022 urina lysis , micro scopi c UROBILINOGEN 1 Not Available [facility] [address] [place] [address], [phone], 11/15/2022 15:33:11 11/16/19 23 11/15/2022 urina lysis , micro scopi c NITRITE negati ve Not Available [facility] [address] [place] [address], [phone], 11/15/2022 15:33:11 11/16/19 23 11/15/2022 urina lysis , micro scopi c LEUKOCYTES Negati ve Not Available [facility] [address] [place] [address], [phone], 11/15/2022 15:33:11 11/16/19 23 11/15/2022 urina lysis , micro scopi c COLOR Yellow Not Available [facility] [address] [place] [address], [phone], 11/15/2022 15:33:11 11/16/19 23 11/15/2022 urina lysis , micro scopi c CHARACTER negati ve Not Available [facility] [address] [place] [address], [phone], 11/15/2022 15:33:11 11/16/19 23 11/15/2022 urina lysis , micro scopi c WBC negati ve Not Available [facility] [address] [place] [address], [phone], 11/15/2022 15:33:11 11/16/19 23 11/15/2022 urina lysis , micro scopi c RBC negati ve Not Available [facility] [address] [place] [address], [address], 11/15/2022 15:33:11 11/16/19 23 11/15/2022 urina lysis , micro scopi c EP CELL negati ve Not Available [facility] [address] [place] [address], [address], 11/15/2022 15:33:11 11/16/19 23 11/15/2022 urina lysis , micro scopi c BACTERIA negati ve Not Available [facility] [address] [place] [address], [phone], 11/15/2022 15:33:11 11/16/19 23 11/15/2022 urina lysis , micro scopi c YEAST negati ve Not Available [facility] [address] [place] [address], [address], 11/15/2022 15:33:11 11/16/19 23 11/15/2022 urina lysis , micro scopi c MUCUS negati ve Not Available [facility] [address] [place] [address], [address], 11/15/2022 15:33:11 11/16/19 23 11/15/2022 bladd er scan (PROC ) Calculated Residual Urine: 17ml Not Available [facility] [address] [place] [address], [phone], 11/15/2022 14:44:51 01/18/20 23 01/17/2023 urina lysis , dipst ick Leukocytes (reference range) negati ve Not Available [address], [address], 01/17/2023 12:50:49 01/18/20 23 01/17/2023 urina lysis , dipst ick Nitrite (reference range:) negati ve Not Available [address], [address], 01/17/2023 12:50:49 01/18/20 23 01/17/2023 urina lysis , dipst ick Urobilinogen (reference range) 0.2 Not Available [address], [address], 01/17/2023 12:50:49 01/18/20 23 01/17/2023 urina lysis , dipst ick Protein (reference range) negati ve Not Available [address], [address], 01/17/2023 12:50:49 01/18/20 23 01/17/2023 urina lysis , dipst ick pH (reference range 5-8.5) 6.0 Not Available [address], [address], 01/17/2023 12:50:49 01/18/20 23 01/17/2023 urina lysis , dipst ick Blood (reference range:) negati ve Not Available [address], [address], 01/17/2023 12:50:49 01/18/20 23 01/17/2023 urina lysis , dipst ick Specific Bode (reference range) 1.020 Not Available [address], [address], 01/17/2023 12:50:49 01/18/20 23 01/17/2023 urina lysis , dipst ick Ketone (reference range) negati ve Not Available [facility] [address] [place] [address], [address], 01/17/2023 12:50:49 01/18/2001/17/2023 urina lysis , dipst ick Bilirubin (reference range) negati ve Not Available [facility] [address] [place] [address], [address], 01/17/2023 12:50:49 01/18/2001/17/2023 urina lysis , dipst ick Glucose (reference range) 100 Not Available [address], [address], 01/17/2023 12:50:49 01/18/2001/17/2023 urina lysis , dipst ick Color (reference range: yellow-brown ) Yellow Not Available [address], [address], 01/17/2023 12:50:49 Result Notes None recorded. Problems Name Problem SNOMED Code Status Onset Date Resolution Date Notes Provider Name and Address Organization Details Recorded Time Prostate nodule 0709246203446 09 Active 2022 Malena cline SUJIT Chidi GRAY [facility] [place] 3 14:42:57 Urinary incontinenc e 887855981 Active 2022 Malena cline SUJIT Chidi GRAY [facility] [place] 3 14:43:41 Benign prostatic hyperplasia 533307035 Active 2022 Malena cline SUJIT Chidi GRAY [facility] [place] 3 14:43:58 Problem Notes Documentation Provider Name and Address Organization Details Recorded Time Encounter Note : GI Consult History and Physical [facility] Name Fernando Yazmin Ray Date of Service 1500 [id number] (M) Attending CLAYTON QUIJANO Admitted [id number] Discharged Primary [facility] ANTONIA JEROME - Addendum I have personally performed a face to face evaluation on this patient. I agree with Mrs. Ryder history, physical examination, assessment and plan as documented above. My findings are as follows: 88 yo male admitted with melena and mild anemia. Plan for urgent EGD today. Remain NPO. Further recommendations to follow. Electronically signed by HASMUKH QUIJANO on 8774 Chief Complaint Melena History of Present Illness Yazmin King is a 88-year-old male with medical history of diabetes, BPH, congestive heart failure admitted for abdominal pain, nausea, vomiting, and melena. He reports he was taken off his Plavix and Xarelto about a week ago but can not remember why. Patient denies any other use of blood thinners or NSAIDs. He denies any hematochezia or hematemesis. No family history of colon cancer. Patient reports last colonoscopy 4 or [address] Hills. He reports 4 polyps removed at that time. He has never had an EGD. Vital signs were stable on admission. Hemoglobin was 12.3, hematocrit 38.3. CT did not show acute process but there were multiple enlarged lymph nodes throughout the abdomen. Reason for Consultation GI bleed Past Medical History Congestive heart failure Benign prostatic hyperplasia Diabetes mellitus Past Surgical History Placement of stent in cardiac conduit Arthroplasty of knee Esophagogastroduodenoscopy in 2023 Social History tobacco use Never Smoked, 0 yrs alcohol use No Known Use drug use No Known Use marital status 1 of 4 GI Consult History and Physical [facility] Name Yazmin King Date of Service 1500 [id number] (M) Attending CLAYTON QUIJANO Admitted [id number] Discharged Primary [facility] ANTONIA JEROME - Allergies Tetanus Toxoids - Not Specified Review of Systems Narrative Constitutional: no fever, no weight loss Skin: no rash, no subcutaneous nodules Otolaryngeal: no difficulty swallowing Cardiovascular: no chest pain, no SOB, no peripheral edema Pulmonary: no cough, no sputum production Gastrointestinal: See HPI Genitourinary: no dysuria, no hematuria Hematologic: no easy bruisability, no abnormal bleeding Musculoskeletal: no muscle pain Neurologic: no dizziness, no falls Vital Signs 0822 T 99.0 HR 86 BP 122 / 59 (L) O2Sat 96 0333 T 97.3 (L) HR 55 RR 16 BP 101 / 54 (L) O2Sat 96 2338 RR 16 Physical Exam Narrative General: Well nourished, well developed, in no acute distress Eyes: There is no scleral icterus. No conjunctiva erythema. ENT: There is no pharyngeal erythema or exudate. External ears appear normal. No nasal drainage noted. Neck: trachea is midline Respiratory: Breath sounds are clear to auscultation bilaterally. No evidence of increased work of breathing or accessory muscle use. Cardiovascular: Regular rate and rhythm. No rubs, gallops, or murmurs auscultated. Abdomen: Abdomen is soft, non-distended, and non-tender. There is no rebound tenderness or guarding noted. Bowel sounds normal. Musculoskeletal: moves all extremities without pain Peripheral Vascular/Extremities: No lower extremity edema noted. Skin is warm, no peripheral cyanosis. Skin: No jaundice. No rashes or lesions noted. Neurological: Alert and oriented x4. Appears normal in conversation. No asterixis. Psychiatric: Speech is of regular rate, rhythm, volume, and amount. Mood appears stable. Affect is full range. No evidence of acute agitation. Lab Results 1141 Bedside Testing GLUMETER 154 (H) 0400 Chemistry NA 140 K 4.0 CHLORIDE 103 CO2 27.4 AGAP 13.6 GLUC 135 (H) BUN 28 (H) CREAT 1.2 GFR Tnp CALCIUM 8.4 (L) MG 2.1 2 of 4 GI Consult History and Physical [facility] Name Yazmin King Date of Service 1500 [id number] (M) Attending CLAYTON QUIJANO Admitted [id number] Discharged Primary [facility] ANTONIA JEROME - 0400 Hematology WBC 5.4 RBCS 3.9 (L) HGB 12.3 (L) HCT 38.3 (L) MCV 98.5 MCH 31.6 (H) MCHC 32.1 RDW 13.6 PLT S 203 MPV 9.4 MANDIFF No 2011 Bedside Testing GLUMETER 165 (H) 2006 Hematology HGB 13.5 1758 Bedside Testing GLUMETER 139 (H) Imaging Results Name: YAZMIN KING Exam Date: 03/27/2024 : 1935 Age 88 years Gender: M Physician: KENIA BLANCHARD Facility: [facility] Facility HSV: Outpatient Exam: CT ABD PEL W (IV CONT ONLY) EXAM: CT ABD PEL W (IV CONT ONLY) INDICATION: Abdominal Pain COMPARISON: CT pelvis from August 07, 2019. Previous images are available. Previous report is not available. TECHNIQUE: CT of the abdomen and pelvis was performed after intravenous administration of contrast. Coronal and sagittal reformatted images were created. Dose reduction techniques include at least one of the following: automated exposure control, dose modulation, and iterative reconstruction. FINDINGS: Wooling Machine Operator Image(s): No notable abnormality seen outside the levels scanned. Tubes and Lines: None. Lung Bases/Lower Mediastinum: Moderate dependent changes. Cardiomegaly. Coronary artery calcifications. Calcified granulomas. There is a calcified lymph node adjacent to the esophagus distally. Findings suggest remote healed granulomatous disease. Liver: Unremarkable. Gallbladder: The gallbladder is visualized; no biliary dilatation seen. Legally authenticated by CAROL ANN Yen 2024-03-27 14:32:06 Spleen: There are a few splenic calcifications which suggest previous healed granulomatous disease. Adrenals: Unremarkable. Pancreas: Mild fatty replacement. There are a few scattered calcifications suggesting chronic changes. Kidneys: 4.7 cm cyst at the upper pole of the right kidney, incidental finding. Small 1 mm nonobstructing calculus at the midpole of the left kidney. Small 1.2 cm in the left kidney. No obstructive uropathy on either side. No ureteral stones are identified. Right Bosniak I benign renal cyst measuring 4.7 cm. No follow-up imaging is recommended. JACR 2018 Oct; 264-273, Management of the Incidental Renal Mass on CT, [employer] 2020; 814-848, Bosniak Classification of Cystic Renal Masses, Version 2019. Bowel: Stomach and duodenum are grossly unremarkable. Small bowel appears to be within normal limits. No bowel obstruction is appreciated. The appendix is not definitely visualized. No acute inflammatory findings surrounding the cecum. No significant stool in the colon. Pelvis: Limited evaluation of the pelvis due to marked beam hardening artifact from the right hip prosthesis. There 3 of 4 GI Consult History and Physical [facility] Name Yazmin King Date of Service 1500 [id number] (M) Attending CLAYTON QUIJANO Admitted [id number] Discharged Primary [facility] - are also leads external to the patient on the left side been further the hardening artifact. Retroperitoneum/Nodes: There are a few mildly enlarged lymph nodes in the upper abdomen and in the superior retroperitoneum. For example a lymph node to the left of the aorta on image 48 of series 2 measures 2 x 1.2 cm. Precaval lymph node is mildly enlarged and measures 2.2 x 1.2 cm. There are a few mildly prominent lymph nodes in the mesentery including mildly enlarged lymph nodes in the root of the mesentery. The largest lymph node at the root of the mesentery measures 2.6 x 1.6 cm. These areas were outside the field of view on previous examination. Peritoneal Cavity: No ascites seen. Abdominal Vessels: Atherosclerotic calcification of the aorta without aneurysmal dilatation. Peripheral Soft Tissues: No peripheral soft tissue mass seen. Osseous structures: Spinal instrumentation at L2, L3 and L4. Posterior decompression at L5. IMPRESSION: 1. No acute inflammatory process. 2. Mildly enlarged lymph nodes in the upper abdomen, superior retroperitoneum and mesentery. Follow-up CT in 3-6 months is recommended. 3. Other chronic findings, as described. Legally authenticated by CAROL ANN Yen 2024-03-27 14:32:06 Electronically signed by: Parviz Mcmanus MD 03/27/2024 03:20 PM EDT Diagnostic Results CT ABD PEL W (IV CONT ONLY) IMPRESSION: 1. No acute inflammatory process. 2. Mildly enlarged lymph nodes in the upper abdomen, superior retroperitoneum and mesentery. Follow-up CT in 3-6 months is recommended. 3. Other chronic findings, as describe Assessment/Plan Mr. King is a 88-year-old male admitted for abdominal pain, nausea and melena. Patient reports 1 episode of melena which improved his abdominal pain. Hemoglobin stable on admit at 12.3. 1.)Upper Gastrointestinal Bleed - NPO for EGD today with Dr. Aguilera - PPI BID - Fluids while NPO - Monitor Hemoglobin - Transfuse if < 7 2) Abdominal Lymphadenopathy - Follow up with GI outpatient - Repeat CT w/ contrast in 6 months Electronically signed by KHALIDA Yen APRN on 1648 I hereby attest the note that was written on this patient accurately reflects the notations made when patient was examined. Electronically signed by HASMUKH QUIJANO on 1652 4 of 4 CC'ed Logic: Ordering Provider: KHALIDA Hein marlyn SUJIT [facility] [place] 04/15/2024 13:22:11 Procedures Surgical History Date Name Laterality Status Provider Name and Address Organization Details Recorded Time Prostate Surgery completed Malena BECKETT [facility] [place] 11/15/2022 14:44:37 Imaging Results None recorded. Procedure Notes None recorded. Medical Equipment None Reported. Allergies Allergen ID Allergen Name Allergen Category Reaction Reaction Severity Criticality Documentation Date Start Date Code Code System Note Provider Name and Address Organization Details Recorded Time 92408 tetanus immune globulin, human medicatio n Not available Not available Not available 11/15/2022 79434 RxNorm SUJIT Hughes [facility] [place] 3 14:42:37 71807 lisinopri l medicatio n Not available Not available Not available 11/15/2022 00642 RxNorm SUJIT Hughes [facility] [place] 3 14:42:43 Medications Name Sig Start Date Stop Date Status Note LastModified by Organization Details LastModified Time atorvastatin 40 mg tablet active Not Available Not Available Not Available metformin 500 mg tablet active Not Available Not Available No t Available donepezil 5 mg tablet active Not Available Not Available Not Available azithromycin 250 mg tablet TAKE ONE TABLET BY MOUTH EVERY DAY FOR 2 DAYS -- FINISH ALL MEDICINE -- active Not Available Not Available No t Available phenazopyridin e 200 mg tablet active [...] active Not Available Not Available Not Available oseltamivir 75 mg capsule TAKE ONE CAPSULE BY MOUTH TWICE DAILY FOR 3 DAYS active Not Available Not Available No t Available metformin 1,000 mg tablet active Not [...] Not Available Not Available No t Available cefdinir 300 mg capsule TAKE ONE CAPSULE BY MOUTH TWICE DAILY FOR 3 DAYS -- FINISH ALL MEDICINE -- active Not Available Not Available No t [...] Updated DateTime 11/15/2022 193.04 cm 34.3 kg/m2 602627.05 g 97 [degF] Malena Ruiz [facility] [place] 11/15/2022 14:42:20 Date Recorded Body height Body mass index (BMI) Body weight Body temperature Provider Name and Address Organization Details Last Updated DateTime 01/17/2023 193.04 cm 34.3 kg/m2 739704.05 g 98 [degF] Jaycee Hammonds [facility] [place] 01/17/2023 11:15:04 Social History None recorded. Functional Status None recorded. Mental Status None recorded. Family History Nothing Reported. Medical History No medical history recorded. Past Encounters Encounter ID Performer Location Encounter Start Date Encounter Closed Date Diagnosis/Indication Diagnosis SNOMED-CT Code Diagnosis ICD10 Code Diagnosis Note [id number] Constantino Bonner M.D [facility] Proxino Henable [id number] 11/15/2022 14:35:21 11/15/2022 15:19:57 Lower urinary tract symptoms due to benign prostatic hypertrophy 5788419776 9101 N40.1 will increase to bid flomaxhe has several bottleswil l start finasterid e 5mg although we thought he was on itRTC 2mo - discuss turp if n o better [id number] Constantino Bonner M.D [facility] [employer] [id number] 01/17/2023 11:11:03 01/17/2023 12:56:17 Recurrent urinary tract infection 270199000 N39.0 pt is doing well and will repeat ucx in 6mo Health Concerns Section Related Observation LastModified by Organization Detai ls LastModified Time None Recorded Concern Status LastModified by Organization Details LastModified Time None Recorded Advance Directives Directive None Recorded Payers Insurance Date Sequence Insurance Name Policy Number Policy Whitaker Covered Member ID Whitaker Member ID Guarantor Name 11/15/2022 1 [employer] (MEDICARE SUPPLEMENT) Yazmin King [id number] Yazmin King 11/15/2022 1 [facility] [id number] Yazmin King [id number] Yazmin King 11/15/2022 1 [place] Yazmin King [id number] Yazmin King 01/25/2025 2 [employer] (MEDICARE SUPPLEMENT) Yazmin King [id number] Yazmin King 01/25/2025 1 [facility] (MEDICARE REPLACEMENT/A DVANTAGE - PPO) [id number] Yazmin King [id number] Yazmin King
--- OUTSIDE RECORDS SUMMARY | 2025-04-13 12:16 | XMS_ITS | Encounter Summary ---
Author Organization [employer] ([place], [place], [place], [place]) Address [address] [place] [address] Care Team Providers Care Hydro Plant Site Manager Name Role Phone Stephen Chen MD Primary Care Provider +1- [phone] Encounter Details Date Type Department Care Team (Late st Contact Info) Description 06/10/2020 Transcribed Document [facility] [place] [address] [place] [address] ProviderMeredith MD [address] [place] [address] [phone] Social History Tobacco Use Types Packs/Day Years Used Date Smoking Tobacco: Never Assessed Sex and Gender Information Value Date Recorded Sex Assigned at Not on file Legal 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 Name: STEVE KING /Sex: 1935 Male Med Rec #: [id number] Physician: STEVE HUTCHISON JR, MD-PLA Financial #: [id number] Pt. Type: O Room/Bed: Admit/Disch: 06/10/20 08:45:00 - 06/10/20 12:40:00 Institution: [facility] [place] PreOp Case Times Entry 1 In Preop 06/10/20 08:50:00 Ready for Holding n/a Room Patient Ready for 06/10/20 09:35:00 Surgery Patient Out of Preop 06/10/20 09:54:00 Patient Out of n/a Holding Room Last Modified By: MAGGI YU 06/10/20 14:11:03 [facility] PreOp Case Times Audit 06/10/20 14:11:03 Business Planning Analyst: [id number] Modifier: [email or web address] <+> 1 Patient Out of Preop Finalized By: MAGGI YU Document Signatures Signed By: MAGGI YU 06/10/20 14:11 documented in this encounter Plan of Treatment Not on file documented as of this encounter Visit Diagnoses Not on filedocumented in this encounter Care Teams Hydro Plant Site Manager Relationship Specialty Start Date End Date Stephen Chen MD [address] [place] [id number] PCP - General Family Medicine 09/26/23 documented as of this encounter
--- OUTSIDE RECORDS SUMMARY | 2025-04-13 12:16 | XMS_ITS | Encounter Summary ---
Author Organization [employer] ([place], [place], [place], [place]) Address [address] [place] [address] Care Team Providers Care Fiscal Services Director Name Role Phone Stephen Chen MD Primary Care Provider +1- [phone] Encounter Details Date Type Department Care Team (Late st Contact Info) Description 01/31/2021 Transcribed Document [facility] [place] Family Medicine [address] [place] [address] ProviderMeredith MD [address] [place] [address] Social History Tobacco Use Types Packs/Day Years Used Date Smoking Tobacco: Never Assessed Sex and Gender Information Value Date Recorded Sex Assigned at Not on file Legal Sex Male 7:48 AM PSYCHOLOGIST CLINICAL Gender Identity Not on file Sexual Orientation Not on file documented as of this encounter Miscellaneous Notes * Cerner Conversion Note - Meredith ProviderMD - 01/31/2021 3:13 PM CDT Stroke/Warfarin Instructions Entered On: 01/31/2021 15:13 EDT Performed On: 01/31/2021 15:13 EDT by Mauro Torrez RN Stroke/Warfarin Instructions Stroke/TIA Discharge Ins : N/A Warfarin Discharge Ins : N/A Mauro Torrez RN - 01/31/2021 15:13 EDT documented in this encounter Plan of Treatment Not on file documented as of this encounter Visit Diagnoses Not on filedocumented in this encounter Care Teams Fiscal Services Director Relationship Specialty Start Date End Date Stephen Chen MD [address] [place] [id number] PCP - General Family Medicine 09/26/23 documented as of this encounter
--- OUTSIDE RECORDS SUMMARY | 2025-04-13 12:16 | XMS_ITS | Encounter Summary ---
Author Organization [employer] ([place], [place], [place], [place]) Address [address] [place] [address] Care Team Providers Care Tobacco Acreage Measurer Name Role Phone Stephen Chen MD Primary Care Provider +1- [phone] Encounter Details Date Type Department Care Team (Late st Contact Info) Description 06/10/2020 Transcribed Document [facility] [place] [address] [place] [address] ProviderMeredith MD [address] [place] [address] [phone] Social History Tobacco Use Types Packs/Day Years Used Date Smoking Tobacco: Never Assessed Sex and Gender Information Value Date Recorded Sex Assigned at Not on file Legal Sex Male 7:48 AM PARK WARDEN Gender Identity Not on file Sexual Orientation Not on file documented as of this encounter Miscellaneous Notes * Cerner Conversion Note - Meredith ProviderMD - 06/10/2020 10:26 AM CDT [facility] Main OR PostOp Summary Primary Physician: STEVE HUTCHISON JR, MD-PLA Finalized Date/Time: 06/10/20 12:54:02 Pt. Name: STEVE KING /Sex: 1935 Male Med Rec #: [id number] Physician: STEVE HUTCHISON JR, MD-PLA Financial #: [id number] Pt. Type: O Room/Bed: Admit/Disch: 06/10/20 08:45:00 - Institution: [facility] Main OR PostOp Case Times Entry 1 In PACU II 06/10/20 11:48:00 Ready for PACU II 06/10/20 12:40:00 Discharge Discharge from PACU 06/10/20 12:40:00 II Last Modified By: DAPHNE FRIAS RN 06/10/20 12:53:57 Finalized By: DAPHNE FRIAS, RN Document Signatures Signed By: DAPHNE FRIAS RN 06/10/20 12:54 Electronically signed by [facility], [facility] Conversion Swing Type Lathe Operator Cerner at 01/05/2023 10:29 AM CDT documented in this encounter Plan of Treatment Not on file documented as of this encounter Visit Diagnoses Not on filedocumented in this encounter Care Teams Tobacco Acreage Measurer Relationship Specialty Start Date End Date Stephen Chen MD [address] [place] [phone] PCP - General Family Medicine 09/26/23 documented as of this encounter
--- OUTSIDE RECORDS SUMMARY | 2025-04-13 12:16 | XMS_ITS | Encounter Summary ---
Author Organization [employer] ([place], [place], [place], [place]) Address [address] [place] [address] Care Team Providers Care Automatic Pilot Mechanic Name Role Phone Stephen Chen MD Primary Care Provider +1- [phone] Encounter Details Date Type Department Care Team (Late st Contact Info) Description 12/11/2018 Transcribed Document [facility] [place] [address] [place] [address] ProviderMeredith MD [address] [place] [address] Social History Tobacco Use Types Packs/Day Years Used Date Smoking Tobacco: Never Assessed Sex and Gender Information Value Date Recorded Sex Assigned at Not on file Legal Sex Male 7:48 AM SLEEVE BASTER Gender Identity Not on file Sexual Orientation Not on file documented as of this encounter Miscellaneous Notes * Cerner Conversion Note - Historical ProviderMD - 12/11/2018 5:25 PM CDT Event Note Entered On: 12/11/2018 17:25 EDT Performed On: 12/11/2018 17:25 EDT by MARILUZ MANN RN Event Note Event Date/Time : 12/11/2018 17:00 EDT Description of Event : Dr East into see pt and talk to family. Pt denies Chest pain at this time. MARILUZ MANN RN - 12/11/2018 17:25 EDT documented in this encounter Plan of Treatment Not on file documented as of this encounter Visit Diagnoses Not on filedocumented in this encounter Care Teams Automatic Pilot Mechanic Relationship Specialty Start Date End Date Stephen Chen MD [address] [place] [phone] PCP - General Family Medicine 09/26/23 documented as of this encounter
--- OUTSIDE RECORDS SUMMARY | 2025-04-13 12:16 | XMS_ITS | Encounter Summary ---
Author Organization [employer] ([place], [place], [place], [place]) Address [address] [place] [address] Care Team Providers Care Gumming Machine Operator Name Role Phone Stephen Chen MD Primary Care Provider +1- [phone] Encounter Details Date Type Department Care Team (Late st Contact Info) Description 06/10/2020 Transcribed Document [facility] [place] [address] [place] [address] ProviderMeredith MD [address] [place] [address] Social History Tobacco Use Types Packs/Day Years Used Date Smoking Tobacco: Never Assessed Sex and Gender Information Value Date Recorded Sex Assigned at Not on file Legal Sex Male 7:48 AM PROPOSAL MANAGER WRITER Gender Identity Not on file Sexual Orientation Not on file documented as of this encounter Miscellaneous Notes * Cerner Conversion Note - Historical ProviderMD - 06/10/2020 9:17 AM CDT Pre Procedure Adult Entered On: 06/10/2020 9:23 EDT Performed On: 06/10/2020 9:17 EDT by Jovita Cardona Rn Height and Weight, Clinical Dosing Height Source : Measured Height Entry Format : Treadwell Height, Feet : 6 ft(Converted to: 183 cm, 72 Inch) Height, Inches : 4 Inch(Converted to: 0 ft 4 Inch, 10.16 cm) Clinical Height : 193.04 cm Weight Source : Standing scale Weight Entry Format : Treadwell Clinical Dosing Weight : 125.91 kg Weight, Pounds : 277 lb Body Surface Area (BSA) : 2.55 m2 Body Mass Index : 33.8 kg/m2 (HI) [place] Body Weight : 86 kg Jovita Cardona Rn - 06/10/2020 9:17 EDT Health Histories Smoking Status : Never (less than 100 in lifetime; none in last 30 days) Smokeless Tobacco Status : Never Jovita Cardona Rn - 06/10/2020 9:17 EDT Social History (As Of: 06/10/2020 09:23:33 EDT) Tobacco: Smoking Status Never smoker. (Last [...] by SADIQ VAZQUEZ RN) Infectious Disease History Has the patient ever been tested for COVID-19? : Yes, Patient stated results Negative Date of COVID-19 test known? : Yes Does patient have symptoms of COVID-19? : No COVID19 Screening : No Experiencing Infectious Disease Symptoms : No symptoms Physical contact outside [place] in the last 30 days : No Infectious Disease History : Chicken pox/Shingles, Measles, MRSA, Mumps Tuberculosis Symptoms : None Jovita Cardona Rn - 06/10/2020 9:17 EDT COVID19 PreProcedure Screening Is this an Emergent or Add on Procedure? : No Has patient been isolated since the test : Yes Exposed to COVID19 symptoms since test? : No Jovita Cardona Rn - 06/10/2020 9:17 EDT Anesthesia/Transfusion History Family History of Anesthesia Reaction : No prior transfusion(s) Transfusion History : No prior anesthesia Family History of Anesthesia Reaction : None Jovita Cardona Rn - 06/10/2020 9:17 EDT Functional Assessment Living Situation : Home Patient Lives With : Adult Child/Children Current Home Treatments : Blood glucose monitoring, CPAP Jovita Cardona Rn - 06/10/2020 9:17 EDT [place] Suicide Severity Rating Scale (C-SSRS) CSSRS Past Month Wish to be : No CSSRS Past Month Suicidal Thoughts : No CSSRS Lifetime Suicide Behavior : No Suicide Severity Rating Score : 0 Suicide Severity Rating : No Additional Care Required at this time Jovita Cardona Rn - 06/10/2020 9:17 EDT Psychosocial History Do You Have a History of the Following? : Depression Currently in Unsafe Situation : No Jovita Cardona Rn - 06/10/2020 9:17 EDT Advance Directive Patient has Advance Directive *Q : No, patient refuses Advance Directive information Jovita Cardona Rn - 06/10/2020 9:17 EDT General Info Support Person/Pt Rep Name : son Herve [phone] Want Family/Rep/Phys Notified of Admit : No Emergency Contact #1 : Herve King Emergency Contact #1 Emergency Contact #1 Relationship : son Emergency Contact #2 : Emergency Contact #2 Phone Number : Emergency Contact #2 Relationship : Primary Language : Zambian Preferred Communication Mode : Verbal Communication Barrier : None Copier Field Service Technician Needed : Jovita Pugh Rn - 06/10/2020 9:17 EDT Vital Measurements Temperature Source : Oral Temperature, Fahrenheit : 97.7 Deg F Clinical Temperature, C : 36.5 Deg C Heart Rate, Apical : 57 bpm (LOW) Pulse Rhythm : Regular Respiratory Rate : 18 Breaths/Min Systolic Blood Pressure : 126 mmHg Diastolic Blood Pressure : 76 mmHg Oxygen Saturation : 96 % Oxygen Therapy Mode : Room air Jovita Cardona Rn - 06/10/2020 9:17 EDT Sleep Apnea Risk Assmt BiPAP/CPAP Ordered for Home Use : Yes Hx of Obstructive Sleep Apnea Diagnosis : Yes BiPAP/CPAP Used at Home : Yes Age over 50 Years Old : Yes Gender Male : Yes Jovita Cardona Rn - 06/10/2020 9:17 EDT Naseem Scale Naseem Sensory Perception : No impairment Naseem Moisture : Rarely moist Naseem Activity : Walks frequently Naseem Mobility : Slightly limited Naseem Nutrition : Excellent Naseem Friction and Shear : No apparent problem Naseem Score : 22 Jovita Cardona Rn - 06/10/2020 9:17 EDT Pain Assessment Pain Assessment : Initial assessment Pain Scale Used : 0-10 Scale Jovita Cardona Rn - 06/10/2020 9:17 EDT Fall Risk Scales ABCs Fall Injury Risk Identification : Surgery ABC Fall Injury Risk : Moderate to high injury risk Injury Moderate to High Risk Interventions : 1:1 observation, Bed alarm on, Chair alarm on, Fall mat, Fall contract/letter per facility policy, High Risk for Fall Injury sign in place per policy, Hip protectors, Patient room close to nurses station, Personal alarm on, Specialty low bed, Supervise toileting as indicated, Toileting schedule, Transport methods appropriate to patient, Video observation in place, Visual cues in place, Wrist band (fall risk) on per policy, Fall Injury Intervention Refused MALIK Hx Falls Immediate/Within 3 Months : Yes Malik Secondary Diagnosis : Yes MALIK Use of Ambulatory Aid : Crutches/Cane/Walker MALIK IV Therapy or IV Access : Yes Malik Gait/Transferring : Normal, bedrest, immobile Malik Mental Status : Oriented to own ability MALIK Fall Scale Risk Level : 46 or > High Risk [place] Fall Interventions : Adequate lighting, Assistive devices within reach, Bed in low position, Call device within reach, Fall prevention handout/education per facility policy, Frequent orientation to call device, Frequent orientation to surroundings, Hourly comfort/safety rounds, Non-slip footwear, Personal items within reach, Reinforced to call for assistance before getting out of bed, Room free of clutter/spills, Upper side-rails up, Wheels locked, Wires/Cords secured Fall Risk Scale Calc Temp : 2 Jovita Cardona Rn - 06/10/2020 9:17 EDT Valuables and Belongings Valuables and Belongings : Clothing, Personal devices, Personal items Clothing : Common streetwear Clothing Disposition : Sent to locker Personal Device Disposition : Sent to locker Personal Devices : Glasses Personal Items : Wallet Personal Items Disposition : Sent to locker Jovita Cardona Rn - 06/10/2020 9:17 EDT Pain Scale Intensity : 0 Jovita Cardona Rn - 06/10/2020 9:17 EDT Image 4 - Images currently included in the form version of this document have not been included in the text rendition version of the form. [place] Coma [place] Best Motor Response : Obey commands Lulu Best Verbal Response : Oriented [place] Eye Opening Response : Spontaneous Lulu Coma Score : 15 Jovita Cardona Rn - 06/10/2020 9:17 EDT Electronically signed by [facility] Conversion Mycology Teacher Cerner at 01/05/2023 10:40 AM CDT documented in this encounter Plan of Treatment Not on file documented as of this encounter Visit Diagnoses Not on filedocumented in this encounter Care Teams Gumming Machine Operator Relationship Specialty Start Date End Date Stephen Chen MD [address] [place] [id number] PCP - General Family Medicine 09/26/23 documented as of this encounter
--- OUTSIDE RECORDS SUMMARY | 2025-04-13 12:16 | XMS_ITS | Encounter Summary ---
Author Organization [employer] ([place], [place], [place], [place]) Address [address] [place] [address] Care Team Providers Care Aircraft Painter Name Role Phone Stephen Chen MD Primary Care Provider +1- [phone] Encounter Details Date Type Department Care Team (Late st Contact Info) Description 06/10/2020 Transcribed Document [facility] [place] [address] [place] [address] ProviderMeredith MD [address] [place] [phone] Social History Tobacco Use Types Packs/Day Years Used Date Smoking Tobacco: Never Assessed Sex and Gender Information Value Date Recorded Sex Assigned at Not on file Legal Sex Male 7:48 AM ANIMAL PARK CODE ENFORCEMENT OFFICER Gender Identity Not on file Sexual Orientation Not on file documented as of this encounter Miscellaneous Notes * Cerner Conversion Note - Meredith ProviderMD - 06/10/2020 10:26 AM CDT [facility] Main OR PACU Summary Primary Physician: STEVE HUTCHISON JR, MD-PLA Finalized Date/Time: 06/10/20 11:54:43 Pt. Name: STEVE KING /Sex: 1935 Male Med Rec #: [id number] Physician: STEVE HUTCHISON JR, MD-PLA Financial #: [id number] Pt. Type: O Room/Bed: Admit/Disch: 06/10/20 08:45:00 - Institution: [facility] [place] PACU Case Times Entry 1 In PACU I 06/10/20 10:49:00 Ready for PACU 06/10/20 11:19:00 Discharge Discharge from PACU 06/10/20 11:45:00 I Last Modified By: Nicole Alvarez RN 06/10/20 11:04:01 [facility] Main OR PACU Case Times Audit 06/10/20 11:54:11 Jewelry Polisher: LINETTE Modifier: [email or web address] <+> 1 Discharge from PACU I [facility] Main OR PACU Acuity Entry 1 Start Time 06/10/20 11:19:00 Stop Time 06/10/20 11:45:00 Acuity Level [facility] PACU Acuity I Last Modified By: Nicole Alvarez RN 06/10/20 11:54:22 Finalized By: Nicole Alvarez, RN Document Signatures Signed By: Nicole Alvarez RN 06/10/20 11:54 documented in this encounter Plan of Treatment Not on file documented as of this encounter Visit Diagnoses Not on filedocumented in this encounter Care Teams Aircraft Painter Relationship Specialty Start Date End Date Stephen Chen MD [address] [place] [phone] PCP - General Family Medicine 09/26/23 documented as of this encounter
--- OUTSIDE RECORDS SUMMARY | 2025-04-13 12:16 | XMS_ITS | Encounter Summary ---
Author Organization [employer] ([place], [place], [place], [place]) Address [address] [place] [address] Care Team Providers Care Oil Furnace Installer Name Role Phone Stephen Chen MD Primary Care Provider +1- [phone] Encounter Details Date Type Department Care Team (Late st Contact Info) Description 06/10/2020 Transcribed Document [facility] [place] [address] [place] [address] ProviderMeredith MD [address] [place] [phone] Social History Tobacco Use Types Packs/Day Years Used Date Smoking Tobacco: Never Assessed Sex and Gender Information Value Date Recorded Sex Assigned at Not on file Legal Sex Male 7:48 AM PACKAGER HAND Gender Identity Not on file Sexual Orientation Not on file documented as of this encounter Miscellaneous Notes * Cerner Conversion Note - Meredith ProviderMD - 06/10/2020 10:41 AM CDT Patient: STEVE KING Age: 84 Years Sex: Male : 1935 *Operation Right carpal tunnel release Indication for Surgery Refractory right carpal tunnel syndrome *Preoperative Diagnosis Right carpal tunnel syndrome *Postoperative Diagnosis Right carpal tunnel syndrome *Procedure Narrative Patient was taken to the operating room on 06/10/2020 where he was first given a general anesthetic. Next his forearm, arm, and hand were prepped and draped in the normal sterile fashion. Next his arm was elevated exsanguinated with an Esmarch bandage and the tourniquet inflated to 250 mmHg. Next an incision was made in his proximal palm with a 15 blade. Next pickups and tenotomy scissors were used to dissect through the subcutaneous tissue down to the superficial palmar fascia. Next the superficial palmar fascia was split longitudinally exposing the underlying transverse carpal ligament. Next a small opening was made in the transverse carpal ligament with a Robeson blade. Next a Winston elevator was passed both proximally and distally above and below the ligament to make sure the nerve was not adherent to the underside of the ligament and to free up the soft tissue attachments above the ligament. Next the transverse carpal ligament was completely divided from its level of the superficial palmar arch in the mid palm to the distal antebrachial fascia and the forearm. Next double hook retractors were placed onto the radial cut edge of ligament and retracted upwards. In so doing I could better visualize the nerve. The nerve did not have a significant hourglass deformity. Once satisfied that the nerve was completely decompressed I then injected the skin edges with 1% lidocaine and 0.5% Marcaine. I then irrigated the wound with copious amounts of saline. I then closed the incision with a running 5-0 nylon modified horizontal mattress suture. I then released the tourniquet made sure no hematoma developed then dressed the wound with Adaptic ointment and a protective bulky soft bandage. The patient tolerated the procedure well and was sent to the discharge area in stable condition Anesthesia General *Estimated Blood Loss Minimal Technique See above. Tourniquet time: 11 minutes Date of Service Date/Time of Service SN - Proc - Start Time: 06/10/20 10:26:00 (06/10/20 10:34:14) Electronically signed by Jhon Moody Conversion Lead Neurodiagnostic Technologist Cerner at 01/05/2023 10:22 AM CDT documented in this encounter Plan of Treatment Not on file documented as of this encounter Visit Diagnoses Not on filedocumented in this encounter Care Teams Oil Furnace Installer Relationship Specialty Start Date End Date Stephen Chen MD [address] [place] [id number] PCP - General Family Medicine 09/26/23 documented as of this encounter
--- OUTSIDE RECORDS SUMMARY | 2025-04-13 12:16 | XMS_ITS | Clinical Summary ---
Author Organization [facility] [place] [address] Phone Care Team Providers Care Land Management Forester Name Role Phone No Pcp, Per Patient Primary Care Provider Unavai lable Allergies Active Allergy Reactions Criticality Noted Date Comments Tetanus Vaccines And Toxoid Swelling Medium 02/16/2025 Pt also states blisters with swelling Medications fUROsemide (LASIX) 20 mg Oral Tablet Take 20 mg by mouth daily. Active atorvastatin (LIPITOR) 40 mg Oral Tablet Take 40 mg by mouth daily. Active DULoxetine (CYMBALTA) 60 mg Oral Capsule, Delayed Release(E.C.) Take 60 mg by mouth daily. Active metFORMIN (GLUCOPHAGE) 500 mg Oral Tablet Take 500 mg by mouth 2 times daily. Active tamsulosin (FLOMAX) 0.4 mg Oral Capsule Take 0.8 mg by mouth daily. Active donepeziL (ARICEPT) 5 mg Oral Tablet Take 5 mg by mouth nightly. Active fluticasone propionate (FLONASE) 50 mcg/actuation Nasl [place], Suspension 2 Sprays by Nasal route 2 times daily as needed for Allergies. Active polyvinyl alcohol (LIQUIFILM TEARS) 1.4 % Opht Drops Place 1 Drop into both eyes as needed for Dry Eyes. Active calcium carbonate-vitam in D3 250 mg-3.125 mcg (125 unit) Oral Tablet Take 1 Tablet by mouth daily. Active ketorolac (ACULAR) 0.5 % Opht Drops Place 1 Drop into the right eye 4 times daily. 5 mL 03/08/2025 Active polyethylene glycol (GLYCOLAX, MIRALAX) 17 gram Oral Powder in Packet Take 17 g by mouth daily as needed for Constipation . 30 Packet 03/08/2025 Active pantoprazole (PROTONIX) 40 mg Oral Tablet, Delayed Release (E.C.) Take 1 Tablet by mouth daily. 30 Tablet 03/09/2025 Active aspirin 81 mg Oral Tablet, Delayed Release (E.C.) Take 1 Tablet by mouth daily. 60 Tablet 03/09/2025 Active apixaban (ELIQUIS) 5 mg Oral Tablet Take 1 Tablet by mouth 2 times daily. 60 Tablet 2 03/08/2025 Active traMADoL (ULTRAM) 50 mg Oral Tablet Take 1 Tablet by mouth every 6 hours as needed for Pain. 20 Tablet 03/08/2025 Active acetaminophen (TYLENOL) 500 mg Oral Tablet Take 500 mg by mouth every 4 hours as needed for Pain (1-2 tablets Q4H PRN). Active ceFAZolin in dextrose (ANCEF) 2 gram/100 mL IV Piggyback Inject 100 mL into the vein every 8 hours for 113 doses. 02/27/2025 04/06/20 25 Active Problems Problem Noted Date Diagnosed Date Bilateral pleural effusion 03/02/2025 Severe aortic stenosis 03/02/2025 Severe mitral regurgitation 03/02/2025 Acute pulmonary embolism without acute cor pulmo nale 03/02/2025 Chest pain, precordial 03/02/2025 Dilated cardiomyopathy 03/02/2025 Hypotension 03/01/2025 Other chest pain 03/01/2025 Abdominal pain 03/01/2025 Troponin level elevated 03/01/2025 MSSA (methicillin susceptibl e Staphylococcus aureus) infection 02/23/2025 Assessment & Plan (02/23/2025 8:28 PM EDT): ID consult Broad antibiotic switched to cefazolin per ID Conjunctival hyperemia of right eye 02/23/2025 Assessment & Plan (02/23/2025 8:28 PM EDT): Patient had scratched his right eye Started ophthalmic ointment Right hip joint effusion 02/20/2025 Right hip pain 02/16/2025 Assessment & Plan (02/23/2025 8:28 PM EDT): ?infected MEKA? PRN pain control; Hold eliquis [...] aureus. ID consulted. Antibiotics switched to cefazolin Assessment & Plan (02/22/2025 1:34 PM EDT): ?infected MEKA? PRN pain control; Hold eliquis [...] possible washout 02/22 R hip washout today Assessment & Plan (02/21/2025 12:27 PM EDT): ?infected MEKA? PRN pain control; Hold eliquis [...] Noted plan per Ortho for possible washout Assessment & Plan (02/20/2025 10:12 PM EDT): ?infected MEKA? PRN pain control; Hold eliquis [...] Zosyn. Monitor renal function, Vanco trough. Vancomycin to be dosed by pharmacy Ortho recommend outpatient follow-up post aspiration 02/19 patient underwent IR US guided aspiration; labs sent for sultures 02/20 Difficult iv access. Assessment & Plan (02/19/2025 7:26 PM EDT): ?infected MEKA? PRN pain control; Hold eliquis [...] Zosyn. Monitor renal function, Vanco trough. Vancomycin to be dosed by pharmacy Ortho recommend outpatient follow-up post aspiration 02/19 patient underwent IR US guided aspiration Assessment & Plan (02/18/2025 8:25 PM EDT): ?infected MEKA? PRN pain control; Hold eliquis until aspiration hold Abx until aspiration Ortho consult; discussed with Dr. Jacome IR consulted for aspration Mri R hip ordered Assessment & Plan (02/17/2025 7:05 PM EDT): ?infected MEKA? PRN pain control; hold Abx until aspiration Ortho consult; discussed Assessment & Plan (02/16/2025 9:49 AM EDT): Source of pain is unclear. Has had poor result since original surgery. He has had some workup done with imaging and fluid aspiration in the past but I don't have any records on any of that at this time. Will try to get old records. Ask Ortho to see. Check ESR and CRP. Will need aspiration NIGHAT (obstructive sleep apnea) 02/16/2025 Assessment & Plan (02/23/2025 11:03 AM EDT): CPAP at night RT Assessment & Plan (02/22/2025 7:50 AM EDT): CPAP at night RT Assessment & Plan (02/21/2025 12:27 PM EDT): CPAP at night RT Assessment & Plan (02/20/2025 2:03 PM EDT): CPAP at night RT Assessment & Plan (02/19/2025 8:32 AM EDT): CPAP at night RT Assessment & Plan (02/18/2025 11:09 AM EDT): CPAP at night RT Assessment & Plan (02/17/2025 7:05 PM EDT): CPAP at night RT Assessment & Plan (02/16/2025 9:49 AM EDT): CPAP at hs Dyslipidemia 02/16/2025 Assessment & Plan (02/23/2025 11:03 AM EDT): PACKING HOUSE SUPERVISOR Lipitor Assessment & Plan (02/22/2025 7:50 AM EDT): PACKING HOUSE SUPERVISOR Lipitor Assessment & Plan (02/21/2025 12:27 PM EDT): PACKING HOUSE SUPERVISOR Lipitor Assessment & Plan (02/20/2025 2:03 PM EDT): PACKING HOUSE SUPERVISOR Lipitor Assessment & Plan (02/19/2025 8:32 AM EDT): PACKING HOUSE SUPERVISOR Lipitor Assessment & Plan (02/18/2025 11:09 AM EDT): PACKING HOUSE SUPERVISOR Lipitor Assessment & Plan (02/17/2025 7:05 PM EDT): PACKING HOUSE SUPERVISOR Lipitor Assessment & Plan (02/16/2025 9:49 AM EDT): statin Major neurocognitive disorder 02/16/2025 Assessment & Plan (02/23/2025 8:28 PM EDT): Seems at baseline 02/23 AAO, ?dementia; ?able to take care of self? PACKING HOUSE SUPERVISOR Donepazil Assessment & Plan (02/22/2025 1:34 PM EDT): Seems at baseline 02/22 AAO, ?dementia; ?able to take care of self? PACKING HOUSE SUPERVISOR Donepazil Assessment & Plan (02/21/2025 12:27 PM EDT): Seems at baseline 6 AAO, ?dementia; ?able to take care of self? PACKING HOUSE SUPERVISOR Donepazil Assessment & Plan (02/20/2025 10:12 PM EDT): Seems at baseline 6/6 AAO, ?dementia; ?able to take care of self? PACKING HOUSE SUPERVISOR Donepazil Assessment & Plan (02/19/2025 7:26 PM EDT): Seems at baseline AAO, ?dementia; ?able to take care of self? PACKING HOUSE SUPERVISOR Donepazil Assessment & Plan (02/18/2025 11:09 AM EDT): AAO, ?dementia; ?able to take care of self? PACKING HOUSE SUPERVISOR Donepazil Assessment & Plan (02/17/2025 7:05 PM EDT): AAO, ?dementia; ?able to take care of self? PACKING HOUSE SUPERVISOR Donepazil Assessment & Plan (02/16/2025 9:49 AM EDT): pt oriented but has no idea about his meds or medical issues. He lives alone but he tells me his family would prefer he be in an ECF Mood disorder 02/16/2025 Assessment & Plan (02/23/2025 11:03 AM EDT): PACKING HOUSE SUPERVISOR Cymbalta Assessment & Plan (02/22/2025 7:50 AM EDT): PACKING HOUSE SUPERVISOR Cymbalta Assessment & Plan (02/21/2025 12:27 PM EDT): PACKING HOUSE SUPERVISOR Cymbalta Assessment & Plan (02/20/2025 2:03 PM EDT): PACKING HOUSE SUPERVISOR Cymbalta Assessment & Plan (02/19/2025 8:32 AM EDT): PACKING HOUSE SUPERVISOR Cymbalta Assessment & Plan (02/18/2025 11:09 AM EDT): PACKING HOUSE SUPERVISOR Cymbalta Assessment & Plan (02/17/2025 7:05 PM EDT): PACKING HOUSE SUPERVISOR Cymbalta Assessment & Plan (02/16/2025 9:49 AM EDT): Continue SNRI Type 2 diabetes mellitus wit h diabetic polyneuropathy, without long-term current use of insulin 02/16/2025 Assessment & Plan (02/23/2025 8:28 PM EDT): Uncontrolled BG in goal 140-180 Metformin captain cannery tender held Start insulin basal bolus Lantus increased to 10 twice daily, HD SSI, POCT BG ACHS Assessment & Plan (02/22/2025 7:50 AM EDT): BG in goal 140-180 Metformin captain cannery tender Assessment & Plan (02/21/2025 12:27 PM EDT): BG in goal 140-180 Metformin captain cannery tender Assessment & Plan (02/20/2025 10:12 PM EDT): BG in goal 140-180 Metformin captain cannery tender Assessment & Plan (02/19/2025 8:32 AM EDT): Check A1C in am. Metformin captain cannery tender Assessment & Plan (02/18/2025 11:09 AM EDT): Check A1C in am. Metformin captain cannery tender Assessment & Plan (02/17/2025 7:05 PM EDT): Check A1C in am. Metformin captain cannery tender Assessment & Plan (02/16/2025 9:49 AM EDT): Check A1C in am. Hold metformin Environmental allergies 02/16/2025 Assessment & Plan (02/23/2025 11:03 AM EDT): Continue Flonase Assessment & Plan (02/22/2025 7:50 AM EDT): Continue Flonase Assessment & Plan (02/21/2025 12:27 PM EDT): Continue Flonase Assessment & Plan (02/20/2025 2:03 PM EDT): Continue Flonase Assessment & Plan (02/19/2025 8:32 AM EDT): Continue Flonase Assessment & Plan (02/18/2025 11:09 AM EDT): Continue Flonase Assessment & Plan (02/17/2025 8:50 AM EDT): Continue Flonase Assessment & Plan (02/16/2025 9:49 AM EDT): Continue Flonase Hyperkalemia 02/16/2025 Assessment & Plan (02/23/2025 11:03 AM EDT): Resolved Assessment & Plan (02/22/2025 7:50 AM EDT): Resolved Assessment & Plan (02/21/2025 12:27 PM EDT): Resolved Assessment & Plan (02/20/2025 2:03 PM EDT): Resolved Assessment & Plan (02/19/2025 8:32 AM EDT): Resolved Assessment & Plan (02/18/2025 11:09 AM EDT): Resolved Assessment & Plan (02/17/2025 7:05 PM EDT): Resolved Assessment & Plan (02/16/2025 9:49 AM EDT): Mild recheck in am tomorrow. Hold metformin for now Rash 02/16/2025 Assessment & Plan (02/23/2025 11:03 AM EDT): monitor for now Assessment & Plan (02/22/2025 7:50 AM EDT): monitor for now Assessment & Plan (02/21/2025 12:27 PM EDT): monitor for now Assessment & Plan (02/20/2025 2:03 PM EDT): monitor for now Assessment & Plan (02/19/2025 8:32 AM EDT): monitor for now Assessment & Plan (02/18/2025 11:09 AM EDT): monitor for now Assessment & Plan (02/17/2025 7:05 PM EDT): monitor for now Assessment & Plan (02/16/2025 9:49 AM EDT): Offer topical steroids Dysphagia 02/16/2025 Assessment & Plan (02/23/2025 11:03 AM EDT): tae Clark reviewed Assessment & Plan (02/22/2025 7:50 AM EDT): tae Clark reviewed Assessment & Plan (02/21/2025 12:27 PM EDT): tae Clark reviewed Assessment & Plan (02/20/2025 2:03 PM EDT): tae Clark reviewed Assessment & Plan (02/19/2025 8:32 AM EDT): tae Clark reviewed Assessment & Plan (02/18/2025 11:09 AM EDT): tae Clark reviewed Assessment & Plan (02/17/2025 7:05 PM EDT): tae Clark reviewed Assessment & Plan (02/16/2025 9:49 AM EDT): Ask PICKER BOX OPERATOR to see. This was mentioned to the RN after I had lef the room. He has some trouble swallowing about once a day. 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) 02/16/2025 Assessment & Plan (02/23/2025 11:03 AM EDT): compensated PACKING HOUSE SUPERVISOR lasix Assessment & Plan (02/22/2025 7:50 AM EDT): compensated PACKING HOUSE SUPERVISOR lasix Assessment & Plan (02/21/2025 12:27 PM EDT): compensated PACKING HOUSE SUPERVISOR lasix Assessment & Plan (02/20/2025 2:03 PM EDT): compensated PACKING HOUSE SUPERVISOR lasix Assessment & Plan (02/19/2025 8:32 AM EDT): compensated PACKING HOUSE SUPERVISOR lasix Assessment & Plan (02/18/2025 11:09 AM EDT): compensated PACKING HOUSE SUPERVISOR lasix Assessment & Plan (02/17/2025 7:05 PM EDT): compensated PACKING HOUSE SUPERVISOR lasix Assessment & Plan (02/16/2025 9:49 AM EDT): Appears compensated. No plans to address specifically Paroxysmal A-fib 02/16/2025 Assessment & Plan (02/23/2025 8:28 PM EDT): Rate controlled 6/9 PACKING HOUSE SUPERVISOR meds Hold Eliquis until ortho interventions Assessment & Plan (02/22/2025 1:34 PM EDT): Rate controlled 6/ 8 PACKING HOUSE SUPERVISOR meds Hold Eliquis until ortho interventions Assessment & Plan (02/21/2025 12:27 PM EDT): Rate controlled 6/ 7 PACKING HOUSE SUPERVISOR meds Hold Eliquis until ortho interventions Assessment & Plan (02/20/2025 10:12 PM EDT): Rate controlled 6/6 PACKING HOUSE SUPERVISOR meds Hold Eliquis until ortho interventions Assessment & Plan (02/19/2025 7:26 PM EDT): Rate controlled PACKING HOUSE SUPERVISOR meds Hold Eliquis until ortho interventions Assessment & Plan (02/18/2025 11:09 AM EDT): PACKING HOUSE SUPERVISOR meds Hold Eliquis until ortho interventions Assessment & Plan (02/17/2025 7:05 PM EDT): PACKING HOUSE SUPERVISOR meds Hold Eliquis until ortho interventions Assessment & Plan (02/16/2025 9:49 AM EDT): Balbir SC> has been on amio in the past but not clear he is taking that now. On tele and presently in sinus rhythm BPH (benign prostatic hyperplasia) 02/16/2025 Assessment & Plan (02/23/2025 11:03 AM EDT): PACKING HOUSE SUPERVISOR flomax Assessment & Plan (02/22/2025 7:50 AM EDT): PACKING HOUSE SUPERVISOR flomax Assessment & Plan (02/21/2025 12:27 PM EDT): PACKING HOUSE SUPERVISOR flomax Assessment & Plan (02/20/2025 2:03 PM EDT): PACKING HOUSE SUPERVISOR flomax Assessment & Plan (02/19/2025 8:32 AM EDT): PACKING HOUSE SUPERVISOR flomax Assessment & Plan (02/18/2025 11:09 AM EDT): PACKING HOUSE SUPERVISOR flomax Assessment & Plan (02/17/2025 7:05 PM EDT): PACKING HOUSE SUPERVISOR flomax Assessment & Plan (02/16/2025 9:49 AM EDT): Continue Flomax Encounters Date Type Department Care Team Description 03/31/2025 3:15 PM EDT Office Visit [facility] Infectious Disease [place] [id number] [phone] Nick Elkins MD Infection of prosthetic joint, subsequent encounter (Primary Dx); MSSA (methicillin susceptible Staphylococcus aureus) infection 03/16/2025 Telephone [place] [id number] Mason Jacome DO Other 03/13/2025 Telephone [place] [phone] Mason Jacome DO 02/22/2025 8:24 AM EDT Anesthesia Event [facility] [address] [place] [phone] Serafin Morejon MD 02/22/2025 8:00 AM EDT - 02/22/2025 11:00 AM EDT Surgery [facility] [address] [place] [phone] Mason Jacome DO TOTAL HIP OR LEWIS ARTHROPLASTY REVISION -POSTERIOR LATERAL/ POSITION 02/20/2025 Orders Only ORTHO PROVIDER [address] [place] [address] Mason Jacome DO Right hip joint effusion (Primary Dx) 02/16/2025 12:49 AM EDT - 03/08/2025 2:14 PM EDT Hospital Encounter [facility] [address] [place] [address] Sameer Ortega MD Boyalakuntla, Dhanunjay S, DO Anjari, Tarek, MD Gaston, Richard L, MD Benign prostatic hyperplasia, unspecified whether lower urinary tract symptoms present (Primary Dx); Paroxysmal A-fib ([facility]); 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) ([facility]); Dysphagia, unspecified type; Rash; Hyperkalemia; Environmental allergies; Type 2 diabetes mellitus with diabetic polyneuropathy, without long-term current use of insulin ([facility]); Mood disorder; Major neurocognitive disorder ([facility]); Dyslipidemia; NIGHAT (obstructive sleep apnea); Right hip pain; Right hip joint effusion Discharge Disposition: Senior Living Facility from Last 3 Months Surgical History Surgery Date Site/Laterality Comments TOTAL HIP ARTHROPLASTY 02/22/2025 Hip/Right Right hip Incision & Drainage with head/liner exchange; Surgeon: Mason Jacome DO; Location: [facility] MAIN OR; Service: Orthopedics Medical devices from this surgery are in the Medical Devices section. BEDSIDE PICC INSERTION (PICC TEAM RN) 02/26/2025 Social History Tobacco Use Types Packs/Day Years Used Date Smoking Tobacco: Unknown Tobacco Cessation:Counseling Given: Not Answered [facility] Utilities Answer Date Recorded In the [...] Recorded PHQ-2 Total Score 0 02/16/2025 [facility] [place] of Occupat ional Health - Occupational Stress [...] money to get more. Never true 02/16/2025 [facility] Transportation Answer D ate Recorded In the past 12 months, has l ack of reliable transportation kept you from medical appointments, meetings, work or from getting things needed for daily living? No 02/16/2025 Sex and Gender Information Value Date Recorded Sex Assigned at Not on file Legal Sex Male 7:36 PM EDT Gender Identity Not on file Sexual Orientation Not on file Obstetrics History Last Filed Vital Signs Vital Sign Reading [...] EDT Height 193 cm (6' 4 ) 03/31/2025 3:17 PM EDT Body Mass Index 33.44 02/16/2025 1:00 AM EDT Plan of Treatment Upcoming Encounters Date Type Department Care Team (Late st Contact Info) Description 04/28/2025 3:45 PM EDT Office Visit SEP Infectious Disease [facility] [address] [place] [address] [place] [phone] Nick Elkins MD [address] [place] [address] Health Maintenance Due Date Last Done Comments Wellness Exam Medicare 1938 Kidney Health: uACR 11/30/1947 Diabetic Eye Exam 11/30/1955 Pneumococcal Vaccine 50+ (1 of 2 - PCV) 1956 Zoster (1 of 2) 11/30/1987 RSV or 60+ (1 - 1-dose 75+ series) 2012 DTaP/TDaP/Td (1 - Tdap) 02/08/2020 02/07/2020 COVID-19 Vaccine ( season) 2024 08/24/2023, 06/09/2021, 11/18/2020 Influenza Vaccine (#1) 2025 , 06/10/2022, 06/24/2021, Additional history exists Lipids 07/08/2025 07/08/2024 Hemoglobin A1c 08/24/2025 02/22/2025, 07/08/2024 Kidney Health: eGFR 03/02/2026 03/02/2025, 03/01/2025, 02/27/2025, Additional history exists Hepatitis B Vaccine Aged Out No longe r eligible based on patient's age to complete this topic Meningococcal B Vaccine Aged Out No l onger eligible based on patient's age to complete this topic Medical Devices Implanted Type Area Brokerage Purchase And Sale Clerk Device Identifier Shelf Expiration Date Model / Serial / Lot Altrx +4 10d [id number] - [id number] Implanted:Qty : 1 on 02/22/2025 by Mason Jacome DO at [facility] Right: Hip J[employer]J:DEPUY:[employer] 07/17/2025 [id number] / / [id number] Head Femoral Ceramic Ts Delta 14 40mm +1.5 - [id number] Implanted:Qty : 1 on 02/22/2025 by Mason Jacome DO at [facility] Right: Hip J[employer]:DEPUY:[employer] [id number] 10/17/2029 [id number] / / [id number] Procedures Procedure Name Priority Date/Time Associated Diagnosis [...] head/liner exchange; Surgeon: Mason Jacome DO; Location: [facility]; Service: Orthopedics Meds: Prior to Admission medications Medication Sig Start Date End Date Last Dose Authorizing Provider apixaban (ELIQUIS) 5 mg Oral Tablet Take 0.5 Tablets by mouth 2 timesdaily for 14 days. 02/23/25 03/09/25 Maosn Jacome DO atorvastatin (LIPITOR) 40 mg Oral [...] Historical fluticasone propionate (FLONASE) 50 mcg/actuation Nasl [place], Suspension 2Sprays by Nasal route 2 times [...] METABOLIC PANEL Routine 03/02/2025 6:18 AM EDT EXTRA MINT GREEN LI Routine 03/02/2025 6:00 AM EDT EXTRA LAVENDER Routine 03/02/2025 6:00 AM EDT EXTRA TUBES PANEL Routine 03/02/2025 6:00 AM EDT PARTIAL THROMBOPLASTIN TIME Early AM 03/02/2025 6:00 AM EDT HEPARIN ANTI-XA, UNF Early AM 03/02/2025 6:00 AM EDT GLUCOSE METER POC Routine 03/01/2025 9:27 PM EDT PARTIAL THROMBOPLASTIN TIME STAT 03/01/2025 7:45 PM EDT HEPARIN ANTI-XA, UNF STAT 03/01/2025 7:45 PM EDT ECG AND [...] consult: PE, discussed with IR and DR Norman Present Illness 89 y.o. male with multiple [...] head/liner exchange; Surgeon: Mason Jacome DO; Location: [facility] MAIN OR; Service: Orthopedics Allergies Allergen Reactions [...] No family history on file. Social History Yazmin Review of Systems Review of systems including [...] reactive. Direct communication to care team using Blackberry Secure Chat. Notification included: JERROD NORMAN Approximate date and time: 03/01/2025 6:07 PM [...] mid-range ejection fraction (HFmEF) (HCC) Paroxysmal A-fib ([facility]) BPH (benign prostatic hyperplasia) Shortness of breath [...] progress. Heart & Vascular Consult Note PATIENT: Yazmin King 10 PCP: No Pcp, Per Patient Primary Director Internal Audit: Dr. Bosch at [facility] I would like to thank Jerrod Norman MD for requesting me to see Lisa for cardiac consultation for chest pain. History provided by: EMR, patient HPI: Yazmin King is a 89 y.o. male with [...] History reviewed. No pertinent past medical history. PACKING HOUSE SUPERVISOR Medications: Prior to Admission medications Medication Sig [...] Historical fluticasone propionate (FLONASE) 50 mcg/actuation Nasl [place], Suspension 2Sprays by Nasal route 2 times [...] head/liner exchange; Surgeon: Mason Jacome DO; Location: [facility] MAIN OR; Service: Orthopedics Allergy Allergies Allergen [...] most recent cardiovascular imaging studies available in [facility] EMR werereviewed at time of consultation Heart [...] still being optimized Does the patient have CHAINSTITCH SEAT JOINER?: No If no: GDMT still being optimized Has the patient completed Cardiac Rehab for Heart Failure?: No If no: Not a Candidate If not a candidate: Other Are there Advanced Care Planning (ACP) documents on file?: No If no, was ACP discussed with the patient?: No Will continue to optimize GDMT and device-based therapies for HFrEF.: Last Reviewed/Updated: 03/02/25 Last Reviewed/Updated By: Eva December,CLERK SECRETARY Exam: Pt lying in bed in no [...] mod MR,PASP 40 - per notes at [facility] Sep 2024, was considering valve surgery, person- was told he is not a good candidate - No GDMT d/t hypotension- on midodrine now PAF s/p DCCV Jun 2024 - [id number] score is 5 with 6.7% annual stroke [...] gtt Further input from Dr. Chris Velasquez, CLERK SECRETARY Heart and Vascular 03/02/2025 Disposition Perspective - [...] making in its entirety. Quinten Perez MD, [facility] ECG AND WAVEFORMS - TELEMETRY Routine 03/01/2025 10:33 AM EDT STAPHYLOCOCCUS AUREUS SCREEN Routine 03/01/2025 10:29 AM EDT BLOOD CULTURE (NO STAIN) Routine 03/01/2025 10:09 AM EDT BLOOD CULTURE (NO STAIN) Routine 03/01/2025 9:59 AM EDT BLOOD GAS, VENOUS Routine 03/01/2025 9:38 AM EDT HEPATIC FUNCTION PANEL Add-On 03/01/2025 9:31 AM EDT D-DIMER Routine 03/01/2025 9:31 AM EDT EXTRA LAVENDER Routine 03/01/2025 9:31 AM EDT EXTRA TUBES PANEL Routine 03/01/2025 9:31 AM EDT PROCALCITONIN STAT 03/01/2025 9:31 AM EDT C-REACTIVE PROTEIN STAT 03/01/2025 9:31 AM EDT LACTIC ACID STAT 03/01/2025 9:31 AM EDT PARTIAL THROMBOPLASTIN TIME STAT 03/01/2025 9:31 AM EDT PT / INR STAT 03/01/2025 9:31 AM EDT TROPONIN-T HIGH SENSITIVITY BASELINE W/ REFLEX STAT 03/01/2025 9:31 AM EDT PHOSPHORUS LEVEL STAT 03/01/2025 9:31 AM EDT MAGNESIUM LEVEL STAT 03/01/2025 9:31 AM EDT NT PROBNP STAT 03/01/2025 9:31 AM EDT BASIC METABOLIC PANEL STAT 03/01/2025 9:31 AM EDT CBC STAT 03/01/2025 9:31 AM EDT IP CONSULT [...] METER POC Routine 02/26/2025 4:37 PM EDT LACTIC ACID Routine 02/26/2025 4:30 PM EDT C-REACTIVE PROTEIN Routine 02/26/2025 4:30 PM EDT PROCALCITONIN Routine 02/26/2025 4:30 PM EDT GLUCOSE METER POC Routine 02/26/2025 12:16 PM EDT XR CHEST AP PORTABLE STAT 02/26/2025 11:22 AM EDT BEDSIDE PICC INSERTION (PICC TEAM RN) Routine 02/26/2025 10:49 AM EDT GLUCOSE METER POC Routine 02/26/2025 8:49 AM EDT CBC WITH DIFF Add-On 02/26/2025 7:45 AM EDT BASIC METABOLIC PANEL Add-On 02/26/2025 7:45 AM EDT EXTRA LAVENDER Routine 02/26/2025 7:45 AM EDT EXTRA TUBES PANEL Routine 02/26/2025 7:45 AM EDT C-REACTIVE PROTEIN Routine 02/26/2025 7:45 AM EDT GLUCOSE METER POC [...] POC Routine 02/23/2025 5:00 PM EDT EXTRA MINT GREEN LI Routine 02/23/2025 4:06 PM EDT EXTRA TUBES PANEL Routine 02/23/2025 4:06 PM EDT SEDIMENTATION RATE AUTOMATED Routine 02/23/2025 4:06 PM EDT CBC WITH DIFF Routine 02/23/2025 4:06 PM EDT BLOOD CULTURE (NO STAIN) Routine 02/23/2025 4:06 PM EDT HEPATIC FUNCTION PANEL Routine 02/23/2025 2:55 PM EDT C-REACTIVE PROTEIN Routine 02/23/2025 2:55 PM EDT BLOOD CULTURE (NO STAIN) Routine 02/23/2025 2:55 PM EDT GLUCOSE METER [...] 02/22/2025 1:38 PM EDT IP CONSULT TO [employer] WORK Routine 02/22/2025 1:27 PM EDT IP CONSULT TO CARE COORDINATION Routine 02/22/2025 1:27 PM EDT HEMOGLOBIN A1C [...] Patient Reason for Consult: + culture HPI: Yazmin King is a 89 y.o. male with [...] true Transportation Needs: No Transportation Needs (02/16/2025) [facility] IP Transportation In the past 12 months, has lack of reliable transportation kept you frommedical appointments, meetings, work or from getting things needed fordaily living?: No Physical Activity: Inactive (02/16/2025) Exercise Vital Sign Days of Exercise per Week: 0 days Minutes of Exercise per Session: 0 min Stress: No Stress Concern Present (02/16/2025) [facility] [place] of Occupational Health - Occupational StressQuestionnaire Feeling of Stress : Only a little Social Connections: Not At Risk (07/08/2024) Received from [facility] Family and Community Support If for any reason you need help with day-to-day activities such asbathing, preparing meals, shopping, managing finances, etc., do you getthe help you need?: I don't need any help How often do you feel lonely or isolated from those around you?: Never Intimate Partner Violence: Not At Risk (07/08/2024) Received from [facility] Abuse Screen Feels Unsafe at Home or Work/School: no Feels Threatened by Someone: no Does Anyone Try to Keep You From Having Contact with Others or DoingThings Outside Your Home?: no Physical Signs of Abuse Present: no Housing Stability: Not At Risk (07/08/2024) Received from [facility] Housing Stability Current Living Arrangements: home Potentially [...] Taking fluticasone propionate (FLONASE) 50 mcg/actuation Nasl [place], Suspension2 Sprays by Nasal route 2 times [...] aluminum & magnesium hydroxide-simethicone 200-200-20 mg/5 mL [id number] mL 30 mL Oral Q4H PRN Mason [...] EC tablet 10 mg 10 mg Oral BIDChaMason mcdonald DO Or [START ON 02/24/2025] bisacodyL (DULCOLAX) [...] Nightly Litzy Sepulveda APRN5 mg at 02/22/25 214 DULoxetine (CYMBALTA) capsule 60 mg 60 mg Oral Daily Litzy Sepulveda APRN 60 mg at 02/23/25 0824 fluticasone propionate (FLONASE) 50 mcg/actuation nasal spray 2 [place] 2Spray Nasal BID PRN Litzy Sepulveda APRN [...] injection 10 Units 10 Units SubcutaneousQPM (Insulin) Bereince Dallas DO 10 Units at 06/08/25 2147 magnesium hydroxide (MILK OF MAGNESIA) 400 [...] Berenice Dallas DO 125 mL/hr at 02/23/25 97119,750 mg at 02/23/25 0839 Review of Systems: Constitutional: negative for fever, chills and night sweats, feels ill,fatigued, generally weak, +hard of hearing 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 C/b Staph aureus infection and was treated [...] permanent lines until surveillance blood cx negative [id number] hours. Monitor fever/BP curve, I/O's, serum electrolytes, WBC & platelet trend,Liver and renal function Thanks for consulting. Discussed with patient. ID will continue to follow Case reviewed, patient seen with Dr. Michael Viera APRN FUNGUS CULTURE (NO STAIN) Routine 02/22/2025 9:05 [...] 9:03 AM EDT Right hip joint effusion INTRAOP AIRWAY PLACEMENT Routine 02/22/2025 8:32 AM EDT FL I&D PELVIS/HIP JT AREA DEEP ABSCESS/HEMATOMA 02/22/2025 [...] HISTORY CHECK Timed 02/22/2025 6:19 AM EDT ANTIBODY SCREEN IGG Timed 02/22/2025 6:19 AM EDT ABORH Timed 02/22/2025 6:19 AM EDT TYPE AND SCREEN Timed 02/22/2025 6:19 AM EDT EXTRA MINT GREEN LI Routine 02/22/2025 6:19 AM EDT EXTRA LAVENDER Routine 02/22/2025 6:19 AM EDT EXTRA TUBES PANEL Routine 02/22/2025 6:19 AM EDT VANCOMYCIN LEVEL AUC2 Timed 02/21/2025 12:12 PM EDT VANCOMYCIN LEVEL AUC1 Timed 02/21/2025 6:02 AM EDT BASIC METABOLIC PANEL Early AM 02/21/2025 6:02 AM EDT CBC Early AM 02/21/2025 6:02 AM EDT GLUCOSE METER POC Routine 02/20/2025 12:14 PM EDT ADMIT Routine 02/20/2025 11:03 AM EDT BASIC METABOLIC PANEL Early AM 02/20/2025 6:24 AM EDT CBC Early AM 02/20/2025 6:24 AM EDT US GUIDED NEEDLE PLACEMENT-FNA LM 02/19/2025 1:21 PM EDT JOINT FLUID DIFFERENTIAL Routine 02/19/2025 12:43 PM EDT JOINT FLUID CRYSTALS Routine 02/19/2025 12:43 PM EDT PROTEIN JOINT FLUID Routine 02/19/2025 12:43 PM EDT GLUCOSE JOINT FLUID Routine 02/19/2025 12:43 PM EDT PJI DETECTION (SYNOVASURE)-REF LAB Routine 02/19/2025 12:43 PM EDT GLUCOSE JOINT FLUID Routine 02/19/2025 12:43 PM EDT JOINT FLUID CELL COUNT Routine 02/19/2025 12:43 PM EDT ACID FAST [...] NIGHAT (obstructive sleep apnea) Right hip pain FUNGUS STAIN (STAIN ONLY) Routine 02/19/2025 12:43 PM EDT ANAEROBIC CULTURE (NO STAIN) Routine 02/19/2025 12:43 PM EDT WOUND CULTURE (STAIN INCLUDED) Routine 02/19/2025 12:43 PM EDT IP CONSULT TO PHARMACY Routine 02/19/2025 9:32 AM EDT PT / INR STAT 02/19/2025 9:01 AM EDT BASIC METABOLIC PANEL Early AM 02/19/2025 7:01 AM EDT CBC Early AM 02/19/2025 7:01 AM EDT MRI [...] Hip Aspiration Date: 02/18/2025 Time: 3:37 PM Name:Yazmin King :1935 Age:89 y.o. M/F: male Attending [...] tablet 650 mg, 650 mg, Oral, Q4H PRN,Charanuntbernie, Berenice S, DO, 650 mg at 02/18/25 131 atorvastatin (LIPITOR) tablet 40 mg, 40 mg, Oral, Daily, Sepulveda, Litzy,CLERK SECRETARY, 40 mg at 02/18/25 08 calcium carbonate-vitamin D 500 mg-5 mcg (200 unit) per tablet 1 Tablet,1 Tablet, Oral, Daily WM, Sepulveda, Litzy, CLERK SECRETARY, 1 Tablet at 803 donepeziL (ARICEPT) tablet 5 mg, 5 mg, Oral, Nightly, Sepulveda, Litzy,CLERK SECRETARY, 5 mg at 02/17/252022 DULoxetine (CYMBALTA) capsule 60 mg, 60 mg, Oral, Daily, Sepulveda, Litzy,CLERK SECRETARY, 60 mg at 02/18/25 08 fluticasone propionate (FLONASE) 50 mcg/actuation nasal spray 2 [place], 2Spray, Nasal, BID PRN, Sepulveda, Litzy, CLERK SECRETARY fUROsemide (LASix) tablet 20 mg, 20 mg, Oral, Daily, Sepulveda, Litzy,CLERK SECRETARY, 20 mg at 02/18/25 08 melatonin tablet 5 mg, 5 mg, Oral, Nightly PRN, Sepulveda, Litzy, CLERK SECRETARY, 5mg at 02/17/252023 oxyCODONE (ROXICODONE) immediate release tablet 5 mg, 5 mg, Oral, Q4HPRN, Berenice Dallas S, DO polyethylene glycol (GLYCOLAX, MIRALAX) packet 17 g, 17 g, Oral, Daily,Sameer Ortega MD, 17 g at 02/18/25 08 polyvinyl alcohol (LIQUIFILM TEARS) 1.4 % ophthalmic solution 1 Drop, 1Drop, Both Eyes, PRN, Melissa Sepulvedae, CLERK SECRETARY senna (SENOKOT) tablet 17.2 mg, 17.2 mg, [...] (obstructive sleep apnea) Dyslipidemia Major neurocognitive disorder ([facility]) Mood disorder Type 2 diabetes mellitus with diabetic polyneuropathy, without long-termcurrent use of insulin ([facility]) Environmental allergies Hyperkalemia Rash Dysphagia 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) ([facility]) Paroxysmal A-fib ([facility]) BPH (benign prostatic hyperplasia) 1) Right hip [...] REF LAB Routine 02/16/2025 10:49 AM EDT THYROID STIMULATING HORMONE Routine 02/16/2025 10:49 AM EDT C-REACTIVE PROTEIN Routine 02/16/2025 10:49 AM EDT SEDIMENTATION RATE AUTOMATED Routine 02/16/2025 10:49 AM EDT ECG AND WAVEFORMS - TELEMETRY Routine 02/16/2025 7:55 AM EDT BASIC METABOLIC PANEL Routine 02/16/2025 3:58 AM EDT CBC Routine 02/16/2025 3:58 AM EDT IP CONSULT TO ORTHOPEDIC SURGERY Routine 02/16/2025 2:13 AM EDT Procedure Note - Mason Jacome, - 02/20/2025 6:59 AM EDTThis note is in progress. Images from the original note were not included. Consult Note Name: Yazmin King PCP: No Pcp, Per Patient Chief Complaint: R hip pain s/p MEKA (Hiro May 2022) HPI: 89 y.o. male who presents on trasnfer from [facility]. He [place]. His index [...] Historical fluticasone propionate (FLONASE) 50 mcg/actuation Nasl [place], Suspension 2Sprays by Nasal route 2 times [...] - TELEMETRY Routine 02/16/2025 1:00 AM EDT from Last 3 Months Results * (ABNORMAL) GLUCOSE METER POC (03/08/2025 8:46 AM EDT) Only the most recent of62 resultswithin the time period is included. Glucose Meter POC 163(H) 70 - 100 mg/dL 03/08/2025 8:48 AM EDT [facility] Sample Type Capillary 03/08/2025 8:48 AM EDT [facility] Patient Status Non-Critical Patient 03/08/2025 8:48 AM EDT [facility] Blood BLOOD SPECIMEN / Unknown 03/08/2025 8:46 AM EDT 03/08/2025 8:48 AM EDT us Stephen Covarrubias MD POINT OF CARE TEST ORDERABLE S Final Result [facility] [address] [place] [address] * ECG AND WAVEFORMS - TELEMETRY (03/08/2025 7:39 AM EDT) Only the most recent of17 resultswithin the time period is included. ECG INTERPRET Sinus Rhythm w/ First Degree AVB [facility] 03/08/2025 7:39 AM EDT Narrative [facility] - 03/08/2025 7:42 AM EDT 1ST DEGREE HB//ROUTINE//AC FL 0.25 QRS 0.13 RR 0.74 QT 0.48 QTc 0.56 See Clinical Report link for waveform capture us Unknown Provider POINT OF CARE CARDIOLOGY Final Result Performing Organization Address City/State/ZIP Co mo Phone Number [facility] [address] [place] [address] * (ABNORMAL) CBC (03/08/2025 6:54 AM EDT) Only the most recent of8 resultswithin the time period is included. WBC 7.0 3.7 - 10.3 x10(3)/mcL 03/08/2025 7:02 AM EDT [facility] RBC 2.95(L) 4.60 - 6.10 x10(6)/mcL 03/08/2025 7:02 AM EDT [facility] Hgb 9.1(L) 13.7 - 17.5 g/dL 03/08/2025 7:02 AM EDT [facility] Hct 28.9(L) 40.0 - 51.0 % 03/08/2025 7:02 AM EDT [facility] MCV 98.0 80.0 - 100.0 fL 03/08/2025 7:02 AM EDT [facility] MCH 30.8 26.0 - 34.0 pg 03/08/2025 7:02 AM EDT [facility] MCHC 31.5 30.7 - 35.5 g/dL 03/08/2025 7:02 AM EDT [facility] RDW 14.7 <=14.9 % 03/08/2025 7:02 AM EDT [facility] Platelet 365 155 - 369 x10(3)/mcL 03/08/2025 7:02 AM EDT [facility] MPV 8.8 8.8 - 12.5 fL 03/08/2025 7:02 AM EDT [facility] Blood VENOUS STRUCTURE / Unknown Collection / Unknown 03/08/2025 6:54 AM EDT 03/08/2025 7:00 AM EDT us Jerrod Norman MD HEMATOLOGY ORDERABLES Final Resu lt [facility] [address] [place] [address] * [place] US LOWER EXTREMITY VENOUS BILATERAL (03/02/2025 2:12 [...] superficial thrombosis identified in the bilaterallower extremities. Jerrod Norman MD IMG VASCULAR ORDERABLES Final Re sult * (ABNORMAL) CBC WITH DIFF (03/02/2025 6:18 AM EDT) Only the most recent of4 resultswithin the time period is included. WBC 9.5 3.7 - 10.3 x10(3)/mcL 03/02/2025 7:02 AM EDT [facility] RBC 2.98(L) 4.60 - 6.10 x10(6)/mcL 03/02/2025 7:02 AM EDT [facility] Hgb 9.3(L) 13.7 - 17.5 g/dL 03/02/2025 7:02 AM EDT [facility] Hct 29.0(L) 40.0 - 51.0 % 03/02/2025 7:02 AM EDT [facility] MCV 97.3 80.0 - 100.0 fL 03/02/2025 7:02 AM EDT [facility] MCH 31.2 26.0 - 34.0 pg 03/02/2025 7:02 AM EDT [facility] MCHC 32.1 30.7 - 35.5 g/dL 03/02/2025 7:02 AM EDT [facility] RDW 14.6 <=14.9 % 03/02/2025 7:02 AM EDT [facility] Platelet 280 155 - 369 x10(3)/[facility] 03/02/2025 7:02 AM EDT [facility] MPV 8.5(L) 8.8 - 12.5 fL 03/02/2025 7:02 AM EDT [facility] Neut Percent 81.4 % 03/02/2025 7:02 AM EDT [facility] Comment:Neutrophils equals s egs plus bands Imm Gran% 0.4 % 03/02/2025 7:02 AM EDT [facility] Comment:Automated count of m etamyelocytes, myelocytes and promyelocytes. Lymph Percent 9.8 % 03/02/2025 7:02 AM EDT [facility] Alfalfa Percent 6.1 % 03/02/2025 7:02 AM EDT [facility] Eos Percent 2.1 % 03/02/2025 7:02 AM EDT [facility] Baso Percent 0.2 % 03/02/2025 7:02 AM EDT [facility] Neut # 7.8(H) 1.6 - 6.1 x10(3)/[facility] 03/02/2025 7:02 AM T [facility] Comment:Neutrophils equals s egs plus bands IMMGRAN# 0.0 0.0 - 0.1 x10(3)/[facility] 03/02/2025 7:02 AM [facility] Comment:Automated count of m etamyelocytes, myelocytes and promyelocytes. An absolute IG <0.1 is reported as 0.0. Lymph # 0.9(L) 1.2 - 3.9 x10(3)/[facility] 03/02/2025 7:02 AM EDT [facility] Alfalfa # 0.6 0.3 - 0.9 x10(3)/[facility] 03/02/2025 [facility] Eos# 0.2 0.0 - 0.5 x10(3)/[facility] 03/02/2025 7:02 AM EDT [facility] Baso # 0.0 0.0 - 0.1 x10(3)/[facility] 03/02/2025 7:02 AM EDT [facility] Blood VENOUS BLOOD / Unknown Venipuncture / Unknown 03/02/2025 6:18 AM EDT 03/02/2025 6:25 AM EDT us Jerrod Norman MD HEMATOLOGY ORDERABLES Final Resu lt [facility] [address], [place] [id number] * (ABNORMAL) BASIC METABOLIC PANEL (03/02/2025 6:18 AM EDT) Only the most recent of11 resultswithin the time period is included. Sodium 134(L) 136 - 145 mmol/L 03/02/2025 6:52 AM EDT [facility] Potassium 4.2 3.5 - 5.0 mmol/L 03/02/2025 6:52 AM EDT [facility] Chloride 101 98 - 107 mmol/L 03/02/2025 6:52 AM EDT [facility] Total CO2 23 22 - 29 mmol/L 03/02/2025 6:52 AM EDT [facility] Anion Gap 10 7 - 16 mmol/L 03/02/2025 6:52 AM EDT [facility] Calcium 8.0(L) 8.8 - 10.4 mg/dL 03/02/2025 6:52 AM EDT [facility] Glucose Lvl 78 70 - 99 mg/dL 03/02/2025 6:52 AM EDT [facility] BUN 15 8 - 23 mg/dL 03/02/2025 6:52 AM EDT [facility] Creatinine 0.86 0.67 - 1.30 mg/dL 03/02/2025 6:52 AM EDT [facility] eGFR (CKD-EPIcr 2020) 84 >=60 mL/min/1.7 3 m2 03/02/2025 6:52 AM EDT [facility] Comment:Estimated GFR was ca lculated using the CKD-EPIcr (2020) equation refit without race. The equation is recommended by the National Kidney Foundation - [place] [employer] of Nephrology Task Force. Blood VENOUS BLOOD / Unknown Venipuncture / Unknown 03/02/2025 6:18 AM EDT 03/02/2025 6:25 AM EDT us Jerrod Norman MD CHEMISTRY ORDERABLES Final Resul t Performing Organization Address [facility] de Phone Number [facility] [address] [place] [address] * HEPARIN ANTI-XA, UNF (03/02/2025 6:00 AM EDT) Only the most recent of2 resultswithin the time period is included. Heparin Level UNF 0.57 0.30 - 0.70 IU/mL 03/02/2025 6:45 AM EDT [facility] Comment:The therapeutic rang e for heparinized patients monitored by the Heparin Lvl UF is 0.30-0.70 IU/mL. Blood VENOUS BLOOD / Unknown Venipuncture / Unknown 03/02/2025 6:00 AM EDT 03/02/2025 6:31 AM EDT us Jerrod Norman MD HEMATOLOGY ORDERABLES Final Resu lt Performing Organization Address [facility] de Phone Number [facility] [address] [place] [address] * EXTRA MINT GREEN LI (03/02/2025 6:00 AM EDT) Only the most recent of3 resultswithin the time period is included. Blood VENOUS BLOOD / Unknown Venipuncture / Unknown 03/02/2025 6:00 AM EDT 03/02/2025 6:40 AM EDT us Jerrod Norman MD CHEMISTRY ORDERABLES Final Resul t Performing Organization Address [facility] de Phone Number [facility] [address] [place] [address] * EXTRA LAVENDER (03/02/2025 6:00 AM EDT) Only the most recent of4 resultswithin the time period is included. Blood VENOUS BLOOD / Unknown Venipuncture / Unknown 03/02/2025 6:00 AM EDT 03/02/2025 6:40 AM EDT Jerrod Norman MD HEMATOLOGY ORDERABLES Final Resu lt Performing Organization Address [facility] de Phone Number [facility] [address] [place] [address] * (ABNORMAL) PARTIAL THROMBOPLASTIN TIME (03/02/2025 6:00 AM EDT) Only the most recent of3 resultswithin the time period is included. PTT 48.1(H) 25.7 - 36.8 second(s) 03/02/2025 6:45 AM EDT [facility] Comment: Therapeutic range for unfractionated heparin: [...] 6:00 AM EDT 03/02/2025 6:31 AM EDT Jerrod Norman MD HEMATOLOGY ORDERABLES Final Resu lt Performing Organization Address [facility] de Phone Number [facility] [address] [place] [address] * CT ABDOMEN PELVIS W CONTRAST (03/01/2025 [...] contactthe office of the ordering clinician. us Jerrod Norman MD IM CT ORDERABLES Final Result * CT ANGIOGRAM PULMONARY W CONTRAST (03/01/2025 4:36 PM EDT) Anatomical Region Laterality Modality Chest Computed Tomogra phy 03/01/2025 4:36 PM EDT Impressions 03/01/2025 6:07 PM EDT Positive for pulmonary emboli in the left lower lobe. Bilateral pleural effusions. Atelectasis versus infection as above. Mild adenopathy which may be reactive. Direct communication to care team using [employer]. Notification included: JERROD NORMAN Approximate date and time: 03/01/2025 6:07 PM [...] Isovue 370 IV contrast as recorded in EPIC. 2-D multiplanar reconstructions [...] using Isovue 370 IVcontrast as recorded in [employer]. 2-D multiplanar reconstructions and 3-D MIP reconstructions [...] reactive. Direct communication to care team using [employer]. Notification included: JERROD NORMAN Approximate date and time: 03/01/2025 6:07 PM Note: Radiology results need to be interpreted within a comprehensiveclinical context. If you have questions about the radiology report, please contactthe office of the ordering clinician. Jerrod Norman MD IM CT ORDERABLES Final Result * EC ECHOCARDIOGRAM [...] pulmonary artery systolic pressure is 40 mmHg. us Jaxon Shrestha MD IMG ECHO ORDERABLES Final Result * (ABNORMAL) TROPONIN-T HIGH SENSITIVITY 2HR (03/01/2025 11:24 AM EDT) [facility] bk-qCefenxuh-R 2HR 37(H) <22 ng/L 03/01/2025 11:44 AM EDT [facility] hs-cTnT 2Hr Delta from Baseline 1 <4 ng/L 03/01/2025 11:44 AM EDT [facility] Blood VENOUS BLOOD / Unknown Venipuncture / Unknown 03/01/2025 11:24 AM EDT 03/01/2025 11:26 AM EDT Narrative [facility] - 03/01/2025 11:44 AM EDT Ingestion of johny doses of biotin (>5 mg/day) taken within 8 hours of drawing blood sample can interfere with this immunoassay test. us Jaxon Shrestha MD CHEMISTRY ORDERABLES Final Resul t [facility] [address] [place] [id number] * (ABNORMAL) STAPHYLOCOCCUS AUREUS SCREEN (03/01/2025 10:29 AM EDT) [facility] Staph aureus PCR Detected(A) Not Detected 03/01/2025 1:56 PM EDT [facility] [employer], [facility] MRSA PCR Not Detected Not Detected 03/01/2025 1:56 PM EDT [facility] [employer], [facility] Swab BOTH ANTERIOR NARES / Unknown 03/01/2025 10:29 AM EDT 03/01/2025 10:33 AM EDT Narrative [employer], [facility] - 03/01/2025 1:56 PM EDT MRSA target [...] assay utilizes real time PCR on the [employer] GeneXpert Infinity, and its performance has been verified by the [facility]. A negative result does not rule [...] has been developed and validated by the [facility] laboratory. Detailed methodology is available upon request. us Jaxon Shrestha MD MICROBIOLOGY - GENERAL ORDERABLE S Final Result Performing Organization Address [facility] Co de Phone Number [employer] [address] , [place] [address] * BLOOD CULTURE (NO STAIN) (03/01/2025 10:09 AM EDT) Only the most recent of4 resultswithin the time period is included. Culture Result No Growth at 120 hours. BLOOD CULTURE (NO STAIN) 03/06/2025 12:01 PM EDT [employer] Blood VENOUS BLOOD / Unknown Venipuncture / Unknown 03/01/2025 10:09 AM EDT 03/01/2025 10:13 AM EDT Jaxon Shrestha MD MICROBIOLOGY - GENERAL ORDERABLE S Final Result Performing Organization Address [facility] Co de Phone Number [employer] [address] , [place] [address] * (ABNORMAL) BLOOD GAS, VENOUS (03/01/2025 9:38 AM EDT) pH Venous 7.39 7.32 - 7.42 pH 03/01/2025 10:05 AM EDT [facility] pCO2 Venous 47 41 - 51 mmHg 03/01/2025 10:05 AM EDT [facility] pO2 Venous 43(H) 25 - 40 mmHg 03/01/2025 10:05 AM EDT [facility] Comment:Interpret with cauti on. Not recommended to evaluate patient's oxygenation status. Base Excess Olaf 3.1 mmol/L 10:05 AM EDT [facility] Hco3 Venous 28.5(H) 24.0 - 28.0 mmol/L 03/01/2025 10:05 AM EDT [facility] CO2 Total Olaf 27 25 - 29 mmol/L 03/01/2025 10:05 AM EDT [facility] O2 Sat. Venous 76.2(H) 40.0 - 70.0 % 03/01/2025 10:05 AM EDT [facility] Inspired O2 2L 03/01/2025 10:05 AM EDT [facility] Blood VENOUS BLOOD / Unknown Venipuncture / Unknown 03/01/2025 9:38 AM EDT 03/01/2025 9:59 AM EDT Jaxon Shrestha MD CHEMISTRY ORDERABLES Final Resul t Performing Organization Address [facility] de Phone Number [facility] [address] [place] [address] * (ABNORMAL) TROPONIN-T HIGH SENSITIVITY BASELINE W/ REFLEX (03/01/2025 9:31 AM EDT) hc-gIgqkeqci-O 36(H) <22 ng/L 03/01/2025 10:18 AM EDT [facility] Blood VENOUS BLOOD / Unknown Venipuncture / Unknown 03/01/2025 9:31 AM EDT 03/01/2025 9:44 AM EDT Narrative [facility] - 03/01/2025 10:18 AM EDT Ingestion of johny doses of biotin (>5 mg/day) taken within 8 hours of drawing blood sample can interfere with this immunoassay test. us Jaxon Shrestha MD CHEMISTRY ORDERABLES Final Resul t Performing Organization Address [facility] Co de Phone Number [facility] [address] [place] [address] * PROCALCITONIN (03/01/2025 9:31 AM EDT) Only the most recent of2 resultswithin the time period is included. Procalcitonin 0.05 <=0.49 ng/mL 03/01/2025 10:22 AM EDT [facility] Blood VENOUS BLOOD / Unknown Venipuncture / Unknown 03/01/2025 9:31 AM EDT 03/01/2025 10:01 AM EDT Narrative [facility] - 03/01/2025 10:22 AM EDT Procalcitonin [...] progression to severe sepsis and/or septic shock. Jaxon Shrestha MD CHEMISTRY ORDERABLES Final Resul t [facility] [address] [place] [address] * (ABNORMAL) PT / INR (03/01/2025 9:31 AM EDT) Only the most recent of2 resultswithin the time period is included. PT 15.4(H) 10.5 - 13.6 second(s) 03/01/2025 9:59 AM EDT [facility] INR 1.33(H) 0.91 - 1.18 (ratio) 03/01/2025 9:59 AM EDT [facility] Comment: Level of Therapy Indications Target INR Range Standard Dose Treatment and prophylaxis of venous 2.0 - 3.0 thrombosis, pulmonary embolism High Dose High risk patients with mechanical 2.5 - 3.5 heart valves Blood VENOUS BLOOD / Unknown Venipuncture / Unknown 03/01/2025 9:31 AM EDT 03/01/2025 9:44 AM EDT Jaxon Shrestha MD HEMATOLOGY ORDERABLES Final Resu lt Performing Organization Address [facility] de Phone Number [facility] [address] [place] [address] * (ABNORMAL) D-DIMER (03/01/2025 9:31 AM EDT) D-Dimer 1,096(H) <=500 ng/mL FEU 03/01/2025 10:53 AM EDT [facility] Comment:This is an automated latex enhanced [...] 9:31 AM EDT 03/01/2025 10:44 AM EDT Jerrod Norman MD HEMATOLOGY ORDERABLES Final Resu lt Performing Organization Address [facility] Co de Phone Number [facility] [address] [place] [address] * (ABNORMAL) C-REACTIVE PROTEIN (03/01/2025 9:31 AM EDT) Only the most recent of6 resultswithin the time period is included. CRP 44.49(H) <=5.00 mg/L 03/01/2025 2:05 PM EDT [facility] [employer], [facility] Blood VENOUS BLOOD / Unknown Venipuncture / Unknown 03/01/2025 9:31 AM EDT 03/01/2025 10:37 AM EDT us Jaxon Shrestha MD CHEMISTRY ORDERABLES Final Resul t Performing Organization Address [facility] Co de Phone Number [facility] [employer] [address], [place] [address] * PHOSPHORUS LEVEL (03/01/2025 9:31 AM EDT) Phosphorus 2.5 2.5 - 4.5 mg/dL 03/01/2025 10:18 AM EDT [facility] Blood VENOUS BLOOD / Unknown Venipuncture / Unknown 03/01/2025 9:31 AM EDT 03/01/2025 9:44 AM EDT us Jaxon Shrestha MD CHEMISTRY ORDERABLES Final Resul t Performing Organization Address [facility] de Phone Number [facility] [address] [place] [address] * (ABNORMAL) NT PROBNP (03/01/2025 9:31 AM EDT) NT Pro-BNP 4,590(H) <=852 pg/mL 03/01/2025 10:18 AM EDT [facility] Blood VENOUS BLOOD / Unknown Venipuncture / Unknown 03/01/2025 9:31 AM EDT 03/01/2025 9:44 AM EDT Narrative [facility] - 03/01/2025 10:18 AM EDT An NT pro-BNP level less than 300 pg/mL in any patient, regardless of age, effectively rules out acute CHF with a 99% negative predictive value. Ingestion of johny doses of biotin (>5 mg/day) taken within 8 hours of drawing blood sample can interfere with this immunoassay test. us Jaxon Shrestha MD CHEMISTRY ORDERABLES Final Resul t Performing Organization Address [facility] Co de Phone Number [facility] [address] [place] [address] * MAGNESIUM LEVEL (03/01/2025 9:31 AM EDT) Pathologist [facility] Magnesium 2.0 1.6 - 2.4 mg/dL 03/01/2025 10:18 AM EDT [facility] Blood VENOUS BLOOD / Unknown Venipuncture / Unknown 03/01/2025 9:31 AM EDT 03/01/2025 9:44 AM EDT Jaxon Shrestha MD CHEMISTRY ORDERABLES Final Resul t Performing Organization Address [facility] Co de Phone Number [facility] [address] [place] [address] * LACTIC ACID (03/01/2025 9:31 AM EDT) Only the most recent of2 resultswithin the time period is included. Pathologist [facility] Lactic Acid 1.4 0.5 - 1.9 mmol/L 03/01/2025 10:05 AM EDT [facility] Blood VENOUS BLOOD / Unknown Venipuncture / Unknown 03/01/2025 9:31 AM EDT 03/01/2025 9:45 AM EDT us Jaxon Shrestha MD CHEMISTRY ORDERABLES Final Resul t Performing Organization Address [facility] Co de Phone Number [facility] [address] [place] [address] * (ABNORMAL) HEPATIC FUNCTION PANEL (03/01/2025 9:31 AM EDT) Only the most recent of2 resultswithin the time period is included. Total Protein 5.8(L) 6.4 - 8.3 gm/dL 03/01/2025 11:12 AM EDT [facility] Albumin 2.8(L) 3.2 - 4.6 gm/dL 03/01/2025 11:12 AM EDT [facility] Bili Direct <0.2 0.0 - 0.3 mg/dL 03/01/2025 11:12 AM EDT [facility] Bili Total 0.3 0.2 - 1.4 mg/dL 03/01/2025 11:12 AM EDT [facility] AST 15 <=40 U/L 03/01/2025 11:12 AM EDT [facility] ALT <5 <=41 U/L 03/01/2025 11:12 AM EDT [facility] Alk Phos 99 40 - 129 U/L 03/01/2025 11:12 AM EDT [facility] Blood VENOUS BLOOD / Unknown Venipuncture / Unknown 03/01/2025 9:31 AM EDT 03/01/2025 9:44 AM EDT us Jerrod Norman MD CHEMISTRY ORDERABLES Final Resul t [facility] [address] [id number] * XR CHEST AP PORTABLE (03/01/2025 9:20 AM EDT) Only the most recent of2 resultswithin the time period is included. Anatomical Region Laterality Modality Chest Radiographic Юлия [...] contactthe office of the ordering clinician. us Jaxon Shrestha MD IMG DIAGNOSTIC IMAGING ORDERABLE S Final Result * EK EKG 12 LEAD (03/01/2025 9:16 AM EDT) Only the most recent of2 resultswithin the time period is included. 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 Tender: : 1935 Requested By: JAXON Parson Order Number: [id number] Reading MD: David Mar Measurements Intervals [place] Rate: 75 P: 70 FL: 263 QRS: -29 QRSD: 138 T: 128 QT: 440 QTc: 491 Interpretive Statements SINUS RHYTHM WITH FIRST DEGREE AV BLOCK WITH OCCASIONAL SUPRAVENTRICULAR PREMATURE COMPLEXES BORDERLINE LEFT AXIS DEVIATION LBBB Electronically Signed On 03-01-2025 10:17:38 EDT by David Mar Narrative Procedure Note David Mar MD - 03/01/2025 IMPRESSION [place] Test Date: 2025-03-01 Pat Name: YAZMIN KING Department: DEPID Room: [facility] Gender: Male Forge Tender: : 1935 Requested By: JAXON Parson Order Number: [id number] Reading MD: David Mar Measurements Intervals [place] Rate: 75 P: 70 FL: 263 QRS: -29 QRSD: 138 T: 128 QT: 440 QTc: 491 Interpretive Statements SINUS RHYTHM WITH FIRST DEGREE AV BLOCK WITH OCCASIONAL SUPRAVENTRICULAR PREMATURE COMPLEXES BORDERLINE LEFT AXIS DEVIATION LBBB Electronically Signed On 03-01-2025 10:17:38 EDT by David Mar Jaxon Shrestha MD IMG ECG ORDERABLES Final Result * (ABNORMAL) HEMOGLOBIN AND HEMATOCRIT (02/28/2025 5:00 PM EDT) Only the most recent of6 resultswithin the time period is included. Hgb 9.7(L) 13.7 - 17.5 g/dL 02/28/2025 5:08 PM EDT [facility] Hct 30.5(L) 40.0 - 51.0 % 02/28/2025 5:08 PM EDT [facility] Blood VENOUS BLOOD / Unknown Venipuncture / Unknown 02/28/2025 5:00 PM EDT 02/28/2025 5:06 PM EDT Jerrod Norman MD HEMATOLOGY ORDERABLES Final Resu lt [facility] [address] [id number] * BEDSIDE PICC INSERTION (PICC TEAM RN) (02/26/2025 10:49 AM EDT) Narrative [facility] - 02/26/2025 10:49 AM EDT Jocelynn [...] inserted. Unable to get tip confirmation with sherserg due to patient history of afib. CXR ordered for tip confirmation prior to releasing line. Catheter was cut to _43___ cm with internal measurement at _43__ cm. Catheter aspirated and flushed freely. The catheter was secured to the skin surface. Sterile CHG dressing was applied. Patient tolerated the procedure well. Katie Viera APRN PROCEDURE/MINOR SURGICAL ORDERABLES Final Result Performing Organization Address [facility] de Phone Number [facility] [address] [place] [address] * (ABNORMAL) SEDIMENTATION RATE AUTOMATED (02/23/2025 4:06 PM EDT) Only the most recent of2 resultswithin the time period is included. Pathologist [facility] Sed Rate 50(H) 0 - 20 mm/hr 02/23/2025 4:20 PM EDT [facility] Blood VENOUS BLOOD / Unknown Venipuncture / Unknown 02/23/2025 4:06 PM EDT 02/23/2025 4:12 PM EDT Katie Viera APRN HEMATOLOGY ORDERABLES Fin al Result Performing Organization Address [facility] de Phone Number [facility] [address], [place] [id number] * VANCOMYCIN LEVEL AUC1 (02/23/2025 10:46 AM EDT) Only the most recent of2 resultswithin the time period is included. Pathologist [facility] Vancomycin AUC1 49.0 mcg/mL 11:22 AM EDT [facility] Blood VENOUS BLOOD / Unknown Venipuncture / Unknown 02/23/2025 10:46 AM EDT 02/23/2025 11:02 AM EDT Berenice Dallas DO CHEMISTRY ORDERABLES Final Result Performing Organization Address [facility] de Phone Number [facility] [address] [place] [address] * (ABNORMAL) HEMOGLOBIN A1C (02/22/2025 12:05 PM EDT) Hgb A1C 9.7(H) 4.2 - 5.6 % 02/22/2025 1:41 PM EDT [facility] Est. Avg Glucose 232 mg/dL 02/22/2025 1:41 PM EDT [facility] Blood VENOUS BLOOD / Unknown Venipuncture / Unknown 02/22/2025 12:05 PM EDT 02/22/2025 12:09 PM EDT Narrative [facility] [employer] - 02/22/2025 1:41 PM EDT REFERENCE RANGE: Normal: 4.0-5.6% Pre-diabetes: 5.7-6.4% Provisional diagnosis of diabetes: >6.4% Hgb F>10% and anything which shortens red cell survival, such as hemolytic anemia, or unstable hemoglobin variants such as HbSS, HbSC, or HbCC, will lower the HbA1c value associated with a given level of glycemic control. us Serafin Morejon MD CHEMISTRY ORDERABLES Marixa l Result [facility] [employer] [address] , [place] [address] * XR PELVIS (02/22/2025 11:20 AM EDT) [...] DIAGNOSTIC IMAGING ORDERAB LES Final Result * FUNGUS CULTURE (NO STAIN) (02/22/2025 9:05 AM EDT) Only the most recent of3 resultswithin the time period is included. Culture No growth of fungus at 4 weeks. 03/23/2025 10:21 AM EDT [facility] Tissue RIGHT HIP REGION STRUCTURE / Unknown 02/22/2025 9:05 AM EDT 02/22/2025 9:26 AM EDT us Mason Jacome DO MICROBIOLOGY - GENERAL ORDERAB LES Final Result [facility] [address] [place] [address] , [place] [address] * WOUND CULTURE (STAIN INCLUDED) (02/22/2025 9:05 AM EDT) Only the most recent of4 resultswithin the time period is included. Culture No growth at 94 hours. 02/26/2025 4:03 PM EDT [facility] Stain Few RBCs 02/26/2025 4:03 PM EDT [facility] Stain No WBCs seen 02/26/2025 4:03 PM EDT [facility] Stain No organisms seen 02/26/2025 4:03 PM EDT [facility] Tissue RIGHT HIP REGION STRUCTURE / Unknown 02/22/2025 9:05 AM EDT 02/22/2025 9:[address] [facility] MICROBIOLOGY - GENERAL ORDERAB LES Final Result Performing Organization Address [facility] de Phone Number [facility] [employer] [address] , [place] [address] * ANAEROBIC CULTURE (NO STAIN) (02/22/2025 9:05 AM EDT) Only the most recent of4 resultswithin the time period is included. Culture No anaerobic growth at 5 days. 02/27/2025 10:53 AM EDT [facility] Tissue RIGHT HIP REGION STRUCTURE / Unknown 02/22/2025 9:05 AM EDT 02/22/2025 9:26 AM EDT [facility] MICROBIOLOGY - GENERAL ORDERAB LES Final Result Performing Organization Address [facility] de Phone Number [facility] [employer] , [place] [address] * INTRAOP AIRWAY PLACEMENT (02/22/2025 8:32 AM EDT) Narrative [facility] - 02/22/2025 8:32 AM EDT Serafin [...] by: Jean-Pierre Title: Anesthesiologist lidocaine 4 % ([id number]) laryngotracheal solution - Laryngotracheal 4 mL - 02/22/2025 8:32:00 AM: Serafin Morejon MD [place] ANESTHESIA Edited Re sult - Final Performing Organization Address [facility] Co de Phone Number [facility] [address] [place] [address] * BB HISTORY CHECK (02/22/2025 6:19 AM EDT) BB HISTORY CHECK (1) No Previous History 02/22/2025 7:10 AM EDT [facility] Blood VENOUS BLOOD / Unknown Venipuncture / Unknown 02/22/2025 6:19 AM EDT 02/22/2025 6:55 AM EDT [facility] BLOOD BANK ORDERABLES Final Re sult Performing Organization Address [facility] de Phone Number [facility] [address] [place] [address] * ABORH (02/22/2025 6:19 AM EDT) Pathologist [facility] ABORH Int O POS 02/22/2025 8:0 1 AM EDT [facility] Blood VENOUS BLOOD / Unknown Venipuncture / Unknown 02/22/2025 6:19 AM EDT 02/22/2025 6:55 AM EDT [facility] BLOOD BANK ORDERABLES Final Re sult Performing Organization Address [facility] de Phone Number [facility] [address] [place] [address] * ANTIBODY SCREEN IGG (02/22/2025 6:19 AM EDT) ABSC IgG Int Negative 02/22/2025 8:01 AM EDT [facility] Blood VENOUS BLOOD / Unknown Venipuncture / Unknown 02/22/2025 6:19 AM EDT 02/22/2025 6:55 AM EDT Mason Jacome DO BLOOD BANK ORDERABLES Final Re sult Performing Organization Address [facility]/ZIP Co de Phone Number [facility] [address] [place] [address] * VANCOMYCIN LEVEL AUC2 (02/21/2025 12:12 PM EDT) Vancomycin AUC2 15.5 mcg/mL 12:44 PM EDT [facility] Blood VENOUS BLOOD / Unknown Venipuncture / Unknown 02/21/2025 12:12 PM EDT 02/21/2025 12:21 PM EDT Berenice Dallas DO CHEMISTRY ORDERABLES Final Result Performing Organization Address [facility] Co de Phone Number [facility] [address] [place] [address] * US GUIDED NEEDLE PLACEMENT-FNA (02/19/2025 1:21 [...] IMG US ORDERABLES Final R esult * PJI DETECTION (SYNOVASURE)-REF LAB (02/19/2025 12:43 PM EDT) Pathologist [facility] COMMENT See Scanned Image 03/05/2025 8:56 AM EDT [facility] Body Fluid SYNOVIAL MEMBRANE / Unknown 02/19/2025 12:43 PM EDT 02/19/2025 3:21 PM EDT Narrative EXTERNAL LAB - 03/05/2025 8:56 AM EDT [id number] Mason Jacome DO IMMUNOLOGY ORDERABLES Final Re sult EXTER[facility] LAB See Scanned Report [facility] [address] [place] [address] * FUNGUS STAIN (STAIN ONLY) (02/19/2025 12:43 PM EDT) Pathologist [facility] Fungal Stain No yeast or fungal elements seen. No yeast or fungal elements seen. 02/20/2025 3:41 PM EDT [facility] Aspirate RIGHT HIP REGION STRUCTURE / Unknown 02/19/2025 12:43 PM EDT 02/19/2025 1:01 PM EDT [facility] MICROBIOLOGY - GENERAL ORDERAB LES Final Result Performing Organization Address [facility]/ZIP Co de Phone Number [facility] [employer] [address] , [place] [address] * (ABNORMAL) JOINT FLUID DIFFERENTIAL (02/19/2025 12:43 PM EDT) Pathologist [facility] Segs JF 84(H) <25 % 02/19/2025 4:46 PM EDT [facility] Lymphs JF 6 % 02/19/2025 4:46 PM EDT [facility] Macrophages JF 10 % 02/19/2025 4:46 PM EDT [facility] Body Fluid RIGHT HIP REGION STRUCTURE / Unknown 02/19/2025 12:43 PM EDT 02/19/2025 3:21 PM EDT [facility] BODY FLUIDS AND STOOLS ORDERAB LES Final Result Performing Organization Address [facility] [place] [address] * (ABNORMAL) PROTEIN JOINT FLUID (02/19/2025 12:43 PM EDT) Protein JF 5.0(L) 6.4 - 8.3 gm/dL 02/19/2025 4:35 PM EDT [facility] [employer] Body Fluid RIGHT HIP REGION STRUCTURE / Unknown 02/19/2025 12:43 PM EDT 02/19/2025 3:21 PM EDT Narrative [facility] [employer] - 02/19/2025 4:35 PM EDT A reference interval for this test has not been established for body fluid specimens. The reference range listed reflects normal concentration of this analyte in blood. [facility] BODY FLUIDS AND STOOLS ORDERAB LES Final Result Performing Organization Address [facility]/ZIP Co de Phone Number [facility] [address] , [place] [address] * (ABNORMAL) GLUCOSE JOINT FLUID (02/19/2025 12:43 PM EDT) Glucose JF 216(H) 74 - 100 mg/dL 02/19/2025 4:39 PM EDT [facility] Body Fluid RIGHT HIP REGION STRUCTURE / Unknown 02/19/2025 12:43 PM EDT 02/19/2025 3:21 PM EDT Narrative [facility], [facility] - 02/19/2025 4:39 PM EDT A reference interval for this test has not been established for body fluid specimens. The reference range listed reflects normal concentration of this analyte in blood. [facility] BODY FLUIDS AND STOOLS ORDERAB LES Final Result Performing Organization Address [facility] de Phone Number [facility] [employer] , [place] [address] * JOINT FLUID CRYSTALS (02/19/2025 12:43 PM EDT) Pathologist [facility] Crystal JF None Seen None Seen 02/19/2025 4:37 PM EDT [facility] Body Fluid RIGHT HIP REGION STRUCTURE / Unknown 02/19/2025 12:43 PM EDT 02/19/2025 3:21 PM EDT [facility] BODY FLUIDS AND STOOLS ORDERAB LES Final Result Performing Organization Address [facility] de Phone Number [facility] [employer] , [place] [address] * (ABNORMAL) JOINT FLUID CELL COUNT (02/19/2025 12:43 PM EDT) Color JF Abbey(A) Yellow, Straw 02/19/2025 4:43 PM EDT [facility], [facility] Appear JF Turbid(A) Clear, Slightly Hazy, Hazy 02/19/2025 4:43 PM EDT [facility], [facility] RBC JF 294 /mcL 02/19/2025 4:43 PM EDT [facility] [employer] Total Nucleated Cells JF 56,894(H) <=150 /mcL 02/19/2025 4:43 PM EDT [facility] Body Fluid RIGHT HIP REGION STRUCTURE / Unknown 02/19/2025 12:43 PM EDT 02/19/2025 3:21 PM EDT us Mason Davissue DO BODY FLUIDS AND STOOLS ORDERAB LES Final Result [facility] [address] , [place] [address] * MRI HIP RIGHT W WO CONTRAST [...] hip osteoarthritic changes. Moderate pubic symphysis in uein-cy-kmyoxptb bilateral sacroiliac osteoarthritis. No pelvic fracture. No [...] left hiposteoarthritic changes. Moderate pubic symphysis in adnw-iz-hytuqpbq bilateralsacroiliac osteoarthritis. No pelvic fracture. No marrow [...] please contactthe office of the ordering clinician. Chancy Santiago Rubibernie DO G DIAGNOSTIC IMAGI NG ORDERABLES Final [...] of the ordering clinician. Mason Jacome DO [facility] DIAGNOSTIC IMAGING ORDERAB LES Final Result * [...] of the ordering clinician. Mason Jacome DO IM DIAGNOSTIC IMAGING ORDERAB LES Final Result * CHROMIUM - REF LAB (02/16/2025 10:49 AM EDT) Chromium <1.0 <=5.0 ug/L 02/17/2025 7:34 PM EDT [employer] Comment: INTERPRETIVE INFORMATION: Chromium, Serum Elevated results may be due to skin or collection-related contamination, including the use of a noncertified metal-free collection/transport tube. If contamination concerns exist due to elevated levels of serum chromium, confirmation with a second specimen collected in a certified metal-free tube is recommended. Serum chromium levels can be significantly higher in patients with uqmfp-pd-xcxck total hip replacement implants than in control patients without metal implants. Serum chromium levels may be increased in asymptomatic patients with hyyqo-wy-sjalt prosthetics and should be considered in the context of the overall clinical scenario. Whole blood is the specimen type recommended by the U.S. Food and Drug Administration for assessing the risks of hyufm-lo-bwlvo hip implants in symptomatic patients. Symptoms associated with chromium toxicity vary based on route of exposure and dose, and may include dermatitis, impairment of pulmonary function, gastroenteritis, hepatic necrosis, bleeding, and acute tubular necrosis. This test was developed and its performance characteristics determined by [facility]. It has not been cleared or approved by the US Food and Drug Administration. This test was performed in a CLIA certified laboratory and is intended for clinical purposes. Performed By: [facility] [address] [place] [address] Network Analyst: Orestes Felipe MD, PhD CLIA Number: [id number] Blood VENOUS BLOOD / Unknown Venipuncture / Unknown 02/16/2025 10:49 AM EDT 02/16/2025 11:09 AM EDT [facility] CHEMISTRY ORDERABLES Final Res ult [employer] [address] [id number] * COBALT - REF LAB (02/16/2025 10:49 AM EDT) [place] <1.0 <=1.0 ug/L 02/17/2025 7:34 PM EDT [employer] Comment: INTERPRETIVE INFORMATION: [place], Serum or Plasma Elevated results may be [...] can be significantly higher in patients with jubpv-do-vuqnv total hip replacement implants than in control patients without metal implants. Serum cobalt levels may be increased in asymptomatic patients with qwtek-mf-vzpaw prosthetics and should be considered in the context of the overall clinical scenario. Whole blood is the specimen type recommended by the U.S. Food and Drug Administration for assessing the risks of hlkkn-ml-tnjkt hip implants in symptomatic patients. This test was developed and its performance characteristics determined by [facility]. It has not been cleared or approved by the US Food and Drug Administration. This test was performed in a CLIA certified laboratory and is intended for clinical purposes. Performed By: [facility] [address] [place] [address] Network Analyst: Orestes Felipe MD, PhD CLIA Number: [id number] Blood VENOUS BLOOD / Unknown Venipuncture / Unknown 02/16/2025 10:49 AM EDT 02/16/2025 11:09 AM EDT Mason Jacome DO CHEMISTRY ORDERABLES Final Res ult [employer] [facility] [address] [place], [place] [id number] * THYROID STIMULATING HORMONE (02/16/2025 10:49 AM EDT) TSH 1.940 0.270 - 4.200 mcIU/mL 02/16/2025 5:39 PM EDT [facility] Blood VENOUS BLOOD / Unknown Venipuncture / Unknown 02/16/2025 10:49 AM EDT 02/16/2025 11:09 AM EDT Narrative [facility] [employer] - 02/16/2025 5:39 PM EDT Ingestion of johny doses of biotin (>5 mg/day) taken within 8 hours of drawing blood sample can interfere with this immunoassay test. Sameer Ortega MD CHEMISTRY ORDERABLES Final Resul t Performing Organization Address [facility] Co de Phone Number [facility] [address] , [place] [address] from Last 3 Months Insurance [employer] SUPPLEMENTAL [address] JOHANN, [facility] [place] MEDICARE PPO MR [employer] MEDICARE PPO MR Advance Directives For more information, please contact: [phone] * DNR (Latest Code Status on File) Date Activated Date Inactivated Comments 03/02/2025 12:06 PM 03/08/2025 6:14 PM * Full Code Date Activated Date Inactivated Comments 02/16/2025 2:12 AM 03/02/2025 12:06 PM 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
--- OUTSIDE RECORDS SUMMARY | 2025-04-13 12:16 | XMS_ITS | Encounter Summary ---
Author Organization [employer] ([place], [place], [place], [place]) Address [address] [place] [address] Care Team Providers Care Jig Filler Name Role Phone Stephen Chen MD Primary Care Provider [phone] Encounter Details Date Type Department Care Team (Late st Contact Info) Description 06/10/2020 Transcribed Document [facility] [place] Family Medicine [address] [place] [address] ProviderMeredith MD [address] [place] [address] Social History Tobacco Use Types Packs/Day Years Used Date Smoking Tobacco: Never Assessed Sex and Gender Information Value Date Recorded Sex Assigned at Not on file Legal 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 Gender Identity Not on file Sexual Orientation Not on file documented as of this encounter Miscellaneous Notes * Cerner Conversion Note - Meredith ProviderMD - 06/10/2020 12:33 [place] [address] STEVE KING :1935 Visit Time:06/10/2020 What to do next Your Diagnosis Carpal tunnel syndrome, unspecified upper limb, Carpal tunnel syndrome, unspecified upper limb Instructions From Your Care Team Elevate arm above the level of the heart Do not remove dressing until seen by the doctor Activity: Discharge Activity: No heavy lifting over 10 lbs Follow-Up Appointments Follow Up with STEVE HUTCHISON JR, MD-JULIUS When 06/23/2020 01:15 PM EDT Where: [address] [facility] [address]LO[address] [place] [id number] Medications What How Much When Instructions Next Dose glipiZIDE (Glucotrol 5 mg oral tablet) Oral Every Day amitriptyline (Elavil) 10 Milligram(s) Oral At Bedtime busPIRone (BuSpar) 5 Milligram(s) Oral Three Times A Day donepezil (Aricept) 5 Milligram(s) Oral At Bedtime DULoxetine (Cymbalta 60 mg oral delayed release capsule) 1 Capsule(s) Oral Every Day (do not crush or chew) furosemide (Lasix 20 mg oral tablet) 1 Tablet(s) Oral Every Day gabapentin 800 Milligram(s) Oral Two Times A Day lisinopril (Prinivil) 2.5 Milligram(s) Oral Every Day potassium chloride (Klor-Con M10) 20 Milliequivalent(s) Oral Every Day ranolazine (Ranexa 500 mg oral tablet, extended release) Oral Two Times A Day sertraline (Zoloft) 150 Milligram(s) Oral Every Day SITagliptin (Januvia 100 mg oral tablet) 1 Tablet(s) Oral Every Day SITagliptin (Januvia) 100 Milligram(s) Oral Every Day tamsulosin (Flomax 0.4 mg oral capsule) 1 Capsule(s) Oral Every Day Take your medications faithfully. Do NOT skip [...] cramping, rapid heartbeat, difficulty sleeping, and nervousness. Please dispose of unused and medications per pharmacy guidance. Education Materials Carpal Tunnel Syndrome Carpal tunnel syndrome is a condition that causes pain in your hand and arm. The carpal tunnel is a narrow area that is on the palm side of your wrist. Repeated wrist motion or certain diseases may cause swelling in the tunnel. This swelling can pinch the main nerve in the wrist (median nerve). What are the causes? This condition may be caused by: ??? Repeated wrist motions. ??? Wrist injuries. ??? Arthritis. ??? A sac of fluid (cyst) or abnormal growth (tumor) in the carpal tunnel. ??? Fluid buildup during . Sometimes the cause is not known. What increases the risk? The following factors may make you more likely to develop this condition: ??? Having a job in which you move your wrist in the same way many times. This includes jobs like being a deli cook or a service station cashier. ??? Being a woman. ??? Having other health conditions, such as: ? Diabetes. ? Obesity. ? A thyroid gland that is not active enough (hypothyroidism). ? Kidney failure. What are the signs or symptoms? Symptoms of this condition include: ??? A tingling feeling in your fingers. ??? Tingling or a loss of feeling (numbness) in your hand. ??? Pain in your entire arm. This pain may get worse when you bend your wrist and elbow for a long time. ??? Pain in your wrist that goes up your arm to your shoulder. ??? Pain that goes down into your palm or fingers. ??? A weak feeling in your hands. You may find it hard to grab and hold items. You may feel worse at night. How is this diagnosed? This condition is diagnosed with a medical history and physical exam. You may also have tests, such as: ??? Electromyogram (EMG). This test checks the signals that the nerves send to the muscles. ??? Nerve conduction study. This test checks how well signals pass through your nerves. ??? Imaging tests, such as X-rays, ultrasound, and MRI. These tests check for what might be the cause of your condition. How is this treated? This condition may be treated with: ??? Lifestyle changes. You will be asked to stop or change the activity that caused your problem. ??? Doing exercise and activities that make bones and muscles stronger (physical therapy). ??? Learning how to use your hand again (occupational therapy). ??? Medicines for pain and swelling (inflammation). You may have injections in your wrist. ??? A wrist splint. ??? Surgery. Follow these instructions at home: If you have a splint: ??? Wear the splint as told by your doctor. Remove it only as told by your doctor. ??? Loosen the splint if your fingers: ? Tingle. ? Lose feeling (become numb). ? Turn cold and blue. ??? Keep the splint clean. ??? If the splint is not waterproof: ? Do not let it get wet. ? Cover it with a watertight covering when you take a bath or a shower. Managing pain, stiffness, and swelling ??? If told, put ice on the painful area: ? If you have a removable splint, remove it as told by your doctor. ? Put ice in a plastic bag. ? Place a towel between your skin and the bag. ? Leave the ice on for 20 minutes, 2???3 times per day. General instructions ??? Take kebt-oxb-vgdpcue and prescription medicines only as told by your doctor. ??? Rest your wrist from any activity that may cause pain. If needed, talk with your boss at work about changes that can help your wrist heal. ??? Do any exercises as told by your doctor, physical therapist, or occupational therapist. ??? Keep all follow-up visits as told by your doctor. This is important. Contact a doctor if: ??? You have new symptoms. ??? Medicine does not help your pain. ??? Your symptoms get worse. Get help right away if: ??? You have very bad numbness or tingling in your wrist or hand. Summary ??? Carpal tunnel syndrome is a condition that causes pain in your hand and arm. ??? It is often caused by repeated wrist motions. ??? Lifestyle changes and medicines are used to treat this problem. Surgery may help in very bad cases. ??? Follow your doctor's instructions about wearing a splint, resting your wrist, keeping follow-up visits, and calling for help. This information is not intended to replace advice given to you by your health care provider. Make sure you discuss any questions you have with your health care provider. Document Released: 08/22/2012 Document Revised: 01/10/2019 Document Reviewed: 01/10/2019 [employer] Patient Education ?? 2020 [employer]. General Anesthesia, Adult, Care After This sheet gives you information about how to care for yourself after your procedure. Your health care provider may also give you more specific instructions. If you have problems or questions, contact your health care provider. What can I expect after the procedure? After the procedure, the following side effects are common: ??? Pain or discomfort at the IV site. ??? Nausea. ??? Vomiting. ??? Sore throat. ??? Trouble concentrating. ??? Feeling cold or chills. ??? Weak or tired. ??? Sleepiness and fatigue. ??? Soreness and body aches. These side effects can affect parts of the body that were not involved in surgery. Follow these instructions at home: For at least 24 hours after the procedure: ??? Have a responsible adult stay with you. It is important to have someone help care for you until you are awake and alert. ??? Rest as needed. ??? Do not: ? Participate in activities in which you could fall or become injured. ? Drive. ? Use heavy machinery. ? Drink alcohol. ? Take sleeping pills or medicines that cause drowsiness. ? Make important decisions or sign legal documents. ? Take care of children on your own. Eating and drinking ??? Follow any instructions from your health care provider about eating or drinking restrictions. ??? When you feel hungry, start by eating small amounts of foods that are soft and easy to digest (bland), such as toast. Gradually return to your regular diet. ??? Drink enough fluid to keep your urine pale yellow. ??? If you vomit, rehydrate by drinking water, juice, or clear broth. General instructions ??? If you have sleep apnea, surgery and certain medicines can increase your risk for breathing problems. Follow instructions from your health care provider about wearing your sleep device: ? Anytime you are sleeping, including during daytime naps. ? While taking prescription pain medicines, sleeping medicines, or medicines that make you drowsy. ??? Return to your normal activities as told by your health care provider. Ask your health care provider what activities are safe for you. ??? Take islu-agc-xauilkf and prescription medicines only as told by your health care provider. ??? If you smoke, do not smoke without supervision. ??? Keep all follow-up visits as told by your health care provider. This is important. Contact a health care provider if: ??? You have nausea or vomiting that does not get better with medicine. ??? You cannot eat or drink without vomiting. ??? You have pain that does not get better with medicine. ??? You are unable to pass urine. ??? You develop a skin rash. ??? You have a fever. ??? You have redness around your IV site that gets worse. Get help right away if: ??? You have difficulty breathing. ??? You have chest pain. ??? You have blood in your urine or stool, or you vomit blood. Summary ??? After the procedure, it is common to have a sore throat or nausea. It is also common to feel tired. ??? Have a responsible adult stay with you for the first 24 hours after general anesthesia. It is important to have someone help care for you until you are awake and alert. ??? When you feel hungry, start by eating small amounts of foods that are soft and easy to digest (bland), such as toast. Gradually return to your regular diet. ??? Drink enough fluid to keep your urine pale yellow. ??? Return to your normal activities as told by your health care provider. Ask your health care provider what activities are safe for you. This information is not intended to replace advice given to you by your health care provider. Make sure you discuss any questions you have with your health care provider. Document Released: 12/10/2001 Document Revised: 09/06/2018 Document Reviewed: 04/19/2018 Elsevier Patient Education ?? 2020 [employer] Emergency Awareness and Preventative Care STROKE is an EMERGENCY Every Minute Counts Act FAST and Check for these signs: FACE Does the face look uneven? ARM Does one arm drift down? SPEECH Does their speech sound strange? TIME Call at any sign of stroke Stroke Risk Factors Atrial Fibrillation (irregular heartbeat) Diabetes Family history of stroke Heart Disease Heavy alcohol use High Blood Pressure High Cholesterol Physical inactivity and obesity Smoking Cigarette Smoking The facts are clear, cigarette smoking will shorten your life. Smoking can cause many illnesses along the way. As a healthcare provider, we recommend that you stop smoking. Assistance with quitting is available by contacting 9-401-NSVQ-NOW. This is a free resource providing counseling, support, and referral. Or you may contact your personal physician. [employer] Suicide Prevention Lifeline: The National Suicide Prevention Lifeline is a national network of local crisis centers that provides free and confidential emotional support to people in suicidal crisis or emotional distress 24 hours a day, 7 days a week. Don't Wait! Stop a Heart Attack Before it Starts What is a heart attack? A heart attack is damage or to a part of the heart from severely decreased or lack of blood flow to the heart. Over time, arteries can become narrow from the buildup of fat and cholesterol, which is called plaque. The plaque can rupture causing a blood clot to form. When the blood clot forms, the artery can become severely narrowed or completely blocked, causing a heart attack. Heart attack is the leading cause of in the [place]. 85% of muscle damage occurs within the first 2 hours. Delay in the recognition of heart attack symptoms increases the chances of . Know the early symptoms of a heart attack: Nausea Feeling of fullness in chest Jaw Pain Pain that travels down one or both arms Fatigue/being tired Anxiety Back Pain Chest pressure, squeezing, or discomfort Shortness of breath Sweating, or a cold sweat Feeling of impending doom There are unusual signs of a heart attack, too! Women, the elderly, and diabetics may present with atypical symptoms: Fainting/dizziness Weakness Confusion Risk Factors for a Heart Attack Some heart disease risk factors, such as age and family history, cannot be changed. Others, like smoking and lack of exercise, can be changed. Smoking High Cholesterol High Blood Pressure Family History Obesity Age Gender (Males are at higher risk) Lack of Exercise Diabetes Diet Stress Excessive Alcohol Intake If you or someone you know is experiencing the signs and symptoms of a heart attack, DON???T DELAY. Call immediately and seek help. If someone collapses, perform CPR! Do not attempt to drive if you are having symptoms of heart attack. Hands-Only CPR Why Hands-Only CPR? Hands-Only CPR has been shown to be as effective as conventional CPR for cardiac arrests that occur outside of a hospital. Survival depends on immediately receiving CPR from someone nearby. How do you perform Hands-Only CPR? There are two easy steps: Call if you see a teen or adult collapse Push hard and fast in the center of the chest at a beat of 100 beats per minute. Save a life! 4 WAYS TO GET AHEAD OF SEPSIS SEPSIS is a MEDICAL EMERGENCY. Time matters! Infections put you and your family at risk for a life-threatening condition called sepsis. Sepsis is the body's extreme response to an infection. It is life-threatening, and without timely treatment, sepsis can rapidly lead to tissue damage, organ failure, and . Sepsis happens when an infection you already have-in your skin, lungs, urinary tract or somewhere else-triggers a chain reaction throughout your body. 1 [...] sepsis or if you have an infection that is not getting better or is getting worse. To learn more about sepsis and how to prevent infections, visit www.cdc.gov/sepsis. Test Results Laboratory or Other Results This Visit (last charted value for your 06/10/2020 visit) General Chemistry 06/10/2020 10:55 AM Glucose POC2: 134 mg/dL -- Normal range between ( 70 and 110 ) Device Comment 1: Device Comment 1 Patient Name:STEVE KING I have received this information and was given the opportunity to ask questions. Patient/Division Commander Name: Patient/Division Commander Signature: Relationship to Patient: Clinician/Hospital Division Commander Signature: Date: Electronically signed by [facility] [employer] Dealer Cerner at 01/05/2023 10:34 AM CDT documented in this encounter Plan of Treatment Not on file documented as of this encounter Visit Diagnoses Not on filedocumented in this encounter Care Teams Jig Filler Relationship Specialty Start Date End Date Stephen Chen MD [address] [place] [id number] PCP - General Family Medicine 09/26/23 documented as of this encounter
--- OUTSIDE RECORDS SUMMARY | 2025-04-13 12:16 | XMS_ITS | Encounter Summary ---
Author Organization [email or web address] ([place], [place], [place], [place]) Address [address] [place] [address] Care Team Providers Care Medical Doctor Nuclear Medicine Name Role Phone Stephen Chen MD Primary Care Provider [phone]- [phone] Encounter Details Date Type Department Care Team (Late st Contact Info) Description 06/10/2020 Transcribed Document [facility] [place] [address] [place] [address] ProviderMeredith MD [address] [place] [address] Social History Tobacco Use Types Packs/Day Years Used Date Smoking Tobacco: Never Assessed Sex and Gender Information Value Date Recorded Sex Assigned at Not on file 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 This includes jobs like being a jogger operator or a parking cashier. ??? Being a woman. ??? Having [...] Leave the ice on for 20 minutes, 2?3 times per day. General instructions ??? Take cpmh-wtq-ptodeix and prescription medicines only as told by [...] 08/22/2012 Document Revised: 01/10/2019 Document Reviewed: 01/10/2019 [employer] Patient Education ? 2020 [employer] General Anesthesia, Adult, Care After This sheet [...] activities are safe for you. ??? Take qarp-qii-gymnozv and prescription medicines only as told by [...] 12/10/2001 Document Revised: 09/06/2018 Document Reviewed: 04/19/2018 [employer] Patient Education ? 2020 [email or web address]. documented in this encounter Plan of Treatment Not on file documented as of this encounter Visit Diagnoses Not on filedocumented in this encounter Care Teams Medical Doctor Nuclear Medicine Relationship Specialty Start Date End Date Stephen Chen MD [address] [place] [id number] PCP - General Family Medicine 09/26/23 documented as of this encounter
--- OUTSIDE RECORDS SUMMARY | 2025-04-13 12:16 | XMS_ITS | Encounter Summary ---
Author Organization [facility] Address [address] [place] [address] Care Team Providers Care Pompom Maker Name Role Phone Stephen Flores MD Primary Care Provider Encounter Details Date Type Department Care Team (Late st Contact Info) Description 04/08/[address] [facility] CARDI[facility] [address] [place] [address] Jocelyne Bosch MD [address] [place] [address] Social History Tobacco Use Types Packs/Day Years Used Date Smoking Tobacco: Never Passive Smoke Exposure: Never Smokeless Tobacco: Never Alcohol Use Standard Drinks/Week Comments Never 0 (1 standard drink = 0.6 oz pur e alcohol) [facility] Utilities Answer Date Recorded In the past 12 months has e electric, gas, oil, or water company [...] and heating? Not hard at all 07/08/2024 [facility] [place] [facility] - Occupational Stress [...] GED or equivalent No 07/08/2024 Preferred Language Persian 07/08/2024 PHQ-2 Answer Date Recorded Patient Health Questionnaire-2 Score 0 07/08/2024 Sex and Gender Information Value Date Recorded Sex Assigned at Not on file Legal Sex Male 10:35 AM EDT Gender Identity Not on file Sexual Orientation Not on file documented as of this encounter Miscellaneous Notes * Telephone Encounter - Geovany Dooley CMA - 04/13/2025 11:16 AM EDT SPOKE WITH [facility]. PATIENT'S DAILY WEIGHT IS 288.6, YESTERDAY DAILY WEIGHT WAS 283.6. PER KARIME, PATIENT FEELS LIKE SOMETHING IS SITTING ON HIS CHEST AND SHORTNESS OF BREATH. PATIENT IS USING CPAP ALL THE TIME. INSTRUCTED KARIME WITH [facility] THAT HE NEEDS TO BE EVALUATED BY THE ER. KARIME STATED THAT SHE IS GOING TO CALL PATIENT'S SON, FATUMA, TO INFORM HIM THAT WE HAVE ADVISED PATIENT NEEDS TO BE EVALUATED BY ER AND THAT HE IS OKAY WITH PLAN. ADVISED KARIME TO CALL US BACK IF PATIENT DOES NOT GO TO ER. KARIME VERBALIZED UNDERSTANDING. * Telephone Encounter - Geovany Dooley CMA - 04/10/2025 12:47 PM EDT SPOKE WITH CHAUNCEY AT [facility]. INFORMED THAT THERE ARE NO CHANGES AT THIS TIME AND CONTINUE PLANNED. PATIENT WILL NEED TO KEEP APPOINTMENT THAT IS SCHEDULED NEXT WEEK. CHAUNCEY VERBALIZED UNDERSTANDING AND STATED SHE WOULD PASS THE MESSAGE TO KARIME. * Telephone Encounter - Geovany Dooley CMA - 04/10/2025 12:35 PM EDT DAILY WEIGHT: 267.6LB BNP ELEVATED. LEG SWELLING BETTER, LEFT LEG STILL HAS SOME SWELLING, BUT RIGHT LEG HAS HAS NO SWELLING CURRENTLY.PATIENT REPORTS SHORTNESS OF BREATH AND STATES THAT HE PREFERS WEARING PAP THERAPY VS OXYGEN BECAUSE HE FEELS LIKE HE CAN BREATHE EASIER WITH PAP THERAPY. KARIME REPORTS THAT O2 WAS 99% DURING VITALCHECK THIS MORNING. PATIENT DENIED CHEST PAIN KIDNEY FUNCTION HAS SLIGHTLY WORSENED PER KARIME. ON 04/02, GFR WAS 54 AND CREATININE WAS 1.3. ON LABS DRAWN N 04/08, BUN 35, CREATININE 1.5 AND GFR 45. LABS DRAWN ON 04/08 PER DRAWN BEFORE INCREASE LASIX DOSE WAS GIVEN ON SUNDAY AND SUNDAY. 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 CONTACTED DAY VELASCO FYI * Telephone Encounter - Geovany Dooley CMA - 04/10/2025 11:30 AM EDT CONTACTED DAY Parson REGARDING PATIENT * Telephone Encounter - Liudmila Quinn MA - 04/10/2025 10:56 AM EDT Spoke to Karime from [facility] on patient. They have faxed over lab results BNP on patient. Lab results in chart. She stated they did increase lasix to 80mg on and today. Sheis asking for a response with anything or plans. Please advise. * Telephone Encounter - Nicole Torres RegSched Rep - 04/09/2025 10:37 AM EDT FAXED ECHO RESULTS TO ARI @ [facility] ([phone]) PER HER REQUEST FOR PT FILE. * Telephone Encounter - Geovany Dooley CMA - 04/09/2025 8:53 AM EDT SPOKE WITH KARIME AT [facility]. KARIME CONFIRMED THAT THEY RECEIVED FAXED ORDERS YESTERDAY EVENING. KARIME STATED THAT SHE HAS ENTERED ORDERS INTO THEIR SYSTEM, AND IS CURRENTLY WAITING ON PHARMACY TO CONFIRM ORDER TO GIVE MEDICATION TO PATIENT. ALSO DISCUSSED APPOINTMENT WITH KARIME. PATIENT'S APPOINTMENT WAS SCHEDULED IN OUR [facility] OFFICE, BUT WE BOTH THOUGHT IT WOULD BE BETTER TO HAVE PATIENT COME TO [facility] OFFICE, DUE TO ACCESSIBILITY. RESCHEDULED APPOINTMENT TO 04/16 @ 3 PM. CONFIRMED APPOINTMENT WITH KARIME. CALLED PATIENT'S SON, FATUMA, BACK. SPOKE WITH FATUMA REGARDING APPOINTMENT AND IF IT WOULD BE EASIER TO BRING PATIENT TO [facility] OFFICE, FATUMA AGREED AND CONFIRMED THIS WAS OKAY. FATUMA ALSO HAD QUESTIONS REGARDING PATIENT'S RECENT ECHO RESULTS. INFORMED FATUMA OF ECHO RESULTS, FATUMA VERBALIZED UNDERSTANDING. PATIENT IS DUE FOR LABS TODAY AND DAILY WEIGHT CHECK TODAY. WILL CHECK IN THE MORNING REGARDING LABRESULTS AND DAILY WEIGHT. * Telephone Encounter - Kiera Rodrigez RegSched Rep - 04/08/2025 3:56 PM EDT PT SON JOSE MANUEL CALLED BACK I RELAYED MESSAGE, HE STATED HE WILL BE TAKING THE PT TO SEE MERLY SHERIDAN AN APPT TOMORROW MORNING HE WILL CHECK WITH KARIME TO VERIFY THEY RECEIVED THE ORDERS. JOSE MANUEL DID ASK IF THE PTS ECHO RESULTS WERE BACK I ADVISED HIM I WILL HAVE THE CLINICAL TEAM REACH OUT TO HIM ONCE WE RECEIVED THE RESULTS. * Telephone Encounter - Geovany Dooley CMA - 04/08/2025 3:41 PM EDT ATTEMPTED TO CALL [facility], UNABLE TO MAKE CONTACT WITH ANYONE. FAXED ORDER REQUEST TO [facility] ATTN: KARIME AND ASKED FOR THEM TO CONFIRM ORDERS ONCE RECEIVED. LVM FOR SON FATUMA TO SEE IF HE IS PLANNING ON VISITING [facility] SOON TO ASK [facility] TO GIVE US A CALL REGARDING PATIENT. * Telephone Encounter - Mandy Velasco APRN - 04/08/2025 3:14 PM EDT Give the [facility]entiary a verbal order to increase his Lasix to 80 mg total on and Sunday. Then resume Lasix 40 mg daily. Please confirm weight from penitentiary. Our office weight on 03/19 was 262. And have penitentiary call us lab results on BNP tomorrow Follow back up with the pen[facility]entiary on Sunday to see how his symptoms and weight are doing. * Telephone Encounter - Geovany Dooley CMA - 04/08/2025 2:51 PM EDT SPOKE WITH KARIME AT [facility]. PER DAY VELASCO, ECHO IS SLIGHTLY BETTER, EF HAS IMPROVED FROM 20% TO 26%. PATIENT HAS BAD VALVE, BUT WE CANNOT CONSIDER TREATMENT FOR THIS UNTIL HE IS 2 MONTHS OUT FROM PICC LINE. KARIME STATED THAT BNP LAB WAS SCHEDULED FOR A MONTH OUT FROM LAST OFFICE VISIT ON 03/19. (SCHEDULEDTO BE DRAWN ON 04/19). INSTRUCTED KARIME THAT WE WOULD LIKE PATIENT TO DO DAILY WEIGHTS. IF PATIENT GAINS MORE THAN 4 LBSOVERNIGHT OR 10 LBS WITHIN A WEEK, PLEASE GIVE US A CALL TO REPORT WEIGHT. PATIENT WAS LAST WEIGHED ON 04/05 WEIGHT: 274.8LBS LAST WEIGHT IN OFFICE WAS 262LBS ON 03/19. PER KARIME, DR. FLORES HAS SEEN LABS THAT WERE COMPLETED ON 03/26, BUT HAS NOT ADDRESSED ANEMIA. KARIME REPORTED THAT ON 03/12 HGB WAS 9.6, ON 03/26 WAS 9.4, AND 04/02 WAS 9.5. KARIME STATED THAT PATIENT IS NOT CURRENTLY TAKING ANYTHING FOR ANEMIA. INSTRUCTED KARIME TO ADD BNP TO LABS THAT ARE SET TO BE DRAWN TOMORROW. KARIME VERBALIZED UNDERSTANDING. KARIME IS REQUESTING ECHO RESULTS TO BE FAXED TO [facility] AT [phone]. KARIME STATED THAT BNP LABS SHOULD BE BACK TOMORROW AFTERNOON, IF THEY ARE SENT OUT TOMORROW MORNING. WILL CALL FOR UPDATE TOMORROW AFTERNOON REGARDING LABS, IF NOT RECEIVED. * Telephone Encounter - Caro Moya RN - 04/08/2025 2:40 PM EDT Karime from [facility] called back. 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 * Telephone Encounter - Geovany Dooley CMA - 04/08/2025 1:55 PM EDT LABS ARE BOOKED MARKED IN CHART. IT LOOKS LIKE [facility] CALLED AND STATED THAT PATIENT WAS HAVING SWELLING AND INCREASED SHORTNESS OF BREATH, BUT THERE WAS NEVER A MESSAGE PUT IN THE CHART FOR CLINICAL TEAM TO SPEAK WITH RESIDENTIAL. APPOINTMENT WAS MOVED UP FROM TO 04/07 FOR ECHO AND APPOINTMENT, BUT PROVIDER THAT PATIENTWAS SUPPOSED TO SEE YESTERDAY HAD TO LEAVE EARLY AND WAS PATIENT WAS UNABLE TO BE SEEN, BUT ECHO WAS COMPLETED. BOTH APPOINTMENTS THAT WERE SCHEDULED IN HAVE BEEN CANCELED. * Telephone Encounter - Mandy Velasco APRN - 04/08/2025 1:49 PM EDT Can you see if he got his lab work done? Also I had scheduled him a 2-month follow-up with Dr. Bosch and an echo in 2 months. But he completed an echo yesterday and has a follow-up appointment with me on 04/15/2025. Can you see who scheduled these? * Telephone Encounter - Caro Moya RN - 04/08/2025 1:24 PM EDT Karime,RN @ [facility] called in regards to pt's Echo which was done yesterday, 04/07/25. Pt had an appointment this day as well, but appointment had to be rescheduled. He was last seen by Dr. Bosch on 03/19/25 with follow up with Day Velasco APRN 04/15/25. They are wanting to know if there is any change in his treatment plan? Please advise and staff will call [phone]. documented in this encounter Plan of Treatment Upcoming Encounters Date Type Department Care Team (Late st Contact Info) Description 04/16/2025 3:00 PM EDT Office Visit [facility] C[facility] [address] [phone] Mandy Velasco, EMERGENCY MEDICINE SPECIALIST [address] [id number] 05/20/2025 2:15 PM EDT Office Visit [facility] [address] [id number] Jocelyne Bosch MD [address] [id number] documented as of this encounter Visit Diagnoses Not on filedocumented in this encounter Care Teams Pompom Maker Relationship Specialty Start Date End Date Stephen Flores MD [address] [facility] [address] [place] [address] PCP - General Family Medicine 06/27/23 documented as of this encounter
--- OUTSIDE RECORDS SUMMARY | 2025-04-13 12:16 | XMS_ITS | Encounter Summary ---
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 Name Role Phone Stephen Chen MD Primary Care Provider [phone] Encounter Details Date Type Department Care Team (Late st Contact Info) Description 01/31/2021 Transcribed Document [facility] [place] Family [place] [address] ProviderMeredith MD [address] [place] [id number] Social History Tobacco Use Types Packs/Day Years Used Date Smoking Tobacco: Never Assessed Sex and Gender Information Value Date Recorded Sex Assigned at Not on file Legal 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 Change Furosemide to 20mg as needed for fluid weight gain >3 pounds/day or >5 pounds/week. Add Lisinopril 2.5 every evening. No driving 24 hours. Rest/relax today. Follow [facility] care site instruction sheet. No heavy lifting greater [address] Follow up as Dr. Lynch for tomorrows scheduled appt. Follow-Up Appointments Follow Up with ÁNGEL LYNCH MD-[facility] When Within 1to 2 days Comments Keep tomorrows appt. Where: Medications What How Much When Instructions Next Dose ticagrelor (Brilinta (ticagrelor) 90 mg oral tablet) 1 Tablet(s) Oral Two Times A Day Duration: 30 Day(s) Refills: 11 Pickup at [facility] atorvastatin (Lipitor 40 mg oral tablet) Oral Every Day busPIRone (BuSpar) 5 Milligram(s) Oral Three Times A Day donepezil (Aricept) 5 Milligram(s) Oral At Bedtime DULoxetine (Cymbalta 60 mg oral delayed release capsule) 1 Capsule(s) Oral Every Day (do not crush or chew) dupilumab (Dupixent 300 mg/ 2 mL subcutaneous solution) 300 Milligram(s) SubCutaneous Every Two Weeks rotate injection sites furosemide (Lasix 20 mg oral tablet) 1 Tablet(s) Oral Every Day glipiZIDE (Glucotrol 5 mg oral tablet) Oral Every Day lisinopril (Prinivil) 2.5 Milligram(s) Oral Every Day potassium chloride (Klor-Con M10) 20 Milliequivalent(s) Oral Every Day ranolazine (Ranexa 500 mg oral tablet, extended release) Oral Two Times A Day tamsulosin (Flomax 0.4 mg oral capsule) 1 Capsule(s) Oral Every Day Pharmacy Information [facility] [address], [place] [id number] [phone] Take your medications faithfully. Do NOT skip [...] Please dispose of unused and medications per your retail pharmacy guidance. Allergies tetanus toxoid Immunizations This Visit No Immunizations Found Education Materials FAQ ??? Patient COVID-19 testing Why do I need a COVID-19 test in the hospital? We are testing patients as part of an overall effort to ensure the safety of our patients, staff and providers, and to limit the spread of the novel coronavirus throughout our community. What happens if I test positive for COVID-19? Any scheduled elective procedure will be postponed and treatment for the coronavirus will follow the protocol that is currently in place. If you are admitted to the hospital, we will use droplet precautions for patients who test positive for COVID-19. If I???m a patient, should I wear a mask? Yes. When you are in your room alone, you may remove your mask. When anyone enters your room, you should put your mask back on. Will I be allowed to have visitors if I am admitted to the hospital with COVID-19? As part of the standard care for COVID-19 patients, visitors will not be allowed to protect them from potential exposure to the novel coronavirus. If you have a health care support person with you during a pending test and the test comes back positive, your visitor will be asked to leave and follow up with their primary care provider. Public health may reach out to them to complete contact tracing. Will my status as COVID-19 positive be reported? Because COVID-19 is a public health threat, all positive cases are reported through the local health department and the [place] Department for Public Health. Those organizations are responsible for monitoring public health threats. What is contact tracing? The public health departments at the state and local levels use contact tracing to prevent the spread of infectious disease. They will work to identify people who have COVID-19 and their contacts who may have been exposed. What does contact tracing involve? Typically, a contact tracer will interview patients with COVID-19 to identify everyone with whom they have had close contact during the time they may have been infectious and then notify those contacts of potential exposure and refer them for testing. They may monitor the contacts for symptoms of COVID-19 and connect the contacts with services they may need during a recommended self-quarantine period. The patient???s name is not revealed to anyone during the contact tracing interviews, even if a contact asks. Who would be considered a ???close contact?? ? According to the CDC, a close contact is defined as someone who was within 6 feet of an infected person for at least 15 minutes, starting from 48 hours before the person began feeling sick until the time the patient was isolated. What can a close contact expect during this process? A contact tracer from the health department will contact that person to inform them they have been exposed to COVID-19. If that happens, the contact should self-quarantine for 14 days, starting from the last date of possible exposure, monitor their health, wear a face covering and maintain social distancing ??? at least 6 feet from others at all times. Should a close contact seek medical care? Close contacts should take their temperature twice a day, watch for COVID-19 symptoms and notify the health department if they develop symptoms. They should also notify people with whom they have had recent close contact if they become ill. They should seek medical care if symptoms worsen or become severe, including trouble breathing, persistent pain or pressure in the chest, confusion, inability to wait or stay awake, or bluish lips or face. Steps to Help Prevent the Spread of COVID-19 if You Are Sick In all cases, follow the guidance of your health care provider and local health department. Your local health department determines the length of time for quarantine and will notify you with detailed information. Monitor your symptoms. Common symptoms of COVID-19 include fever, fatigue, diarrhea/vomiting, loss of taste and smell, and cough. Trouble breathing is a more serious symptom that means you should get medical attention. If you develop emergency warning signs for COVID-19 get medical attention immediately. Emergency warning signs include*: ??? Trouble breathing ??? Persistent pain or pressure in the chest ??? New confusion or inability to arouse ??? Bluish lips or face *This list is not all inclusive. Please consult your medical provider for any other symptoms that are severe or concerning. Call 911 if you have a medical emergency. If you have a medical emergency and need to call 911, notify the cold mill operator that you have, or think you might have, COVID-19. If possible, put on a facemask before medical help arrives. Stay home except to get medical care. ??? Stay home: Most people with COVID-19 have mild illness and can recover at home without medical care. Do not leave your home, except to get medical care. Do not visit public areas. ??? Stay in touch with your doctor. Call before you get medical care. Be sure to get care if you have trouble breathing, or have any other emergency warning signs, or if you think it is an emergency. Separate yourself from other people in your home; this is known as home isolation. ??? Stay away from others: As much as possible, stay away from others. You should stay in a specific ???sick room?? if possible, and away from other people in your home. Use a separate bathroom, if available. Call ahead before visiting your doctor. ??? Call ahead: Many medical visits for routine care are being postponed or done by phone or telemedicine. If you have a medical appointment that cannot be postponed, call your doctor's office, and tell them you have or may have COVID-19. This will help the office protect themselves and other patients. If you are sick, wear a facemask in the following situations, if available. ??? If you are sick: You should wear a facemask, if available, when you are around other people (including before you enter a health care provider???s office). ??? If you are caring for others: If the person who is sick is not able to wear a facemask (for example, because it causes trouble breathing), then as their caregiver, you should wear a facemask when in the same room with them. Visitors, other than caregivers, are not recommended. Cover your coughs and sneezes. ??? Cover: Cover your mouth and nose with a tissue when you cough or sneeze. ??? Dispose: Throw used tissues into a lined trash can. ??? Wash hands: Immediately wash your hands with soap and water for at least 20 seconds. If soap and water are not available, clean your hands with an alcohol-based hand financial aid administrator that contains at least 60% alcohol. Clean your hands often. ??? Wash hands: Wash your hands often with soap and water for at least 20 seconds when visibly dirty. This is especially important after blowing your nose, coughing or sneezing, and going to the bathroom, and before eating or preparing food. ??? Hand financial aid administrator: Use an alcohol-based hand financial aid administrator with at least 60% alcohol, covering all surfaces of your hands and rubbing them together until they feel dry. ??? Avoid touching: Avoid touching your eyes, nose and mouth with unwashed hands. Avoid sharing personal household items. ??? Do not share: Do not share dishes, drinking glasses, cups, eating utensils, towels or bedding with other people in your home. ??? Wash thoroughly after use: After using these items, wash them thoroughly with soap and water or put them in the special forces engineer sergeant. Clean all high-touch surfaces every day. Clean high-touch surfaces in your isolation area (???sick room?? and bathroom) every day; let a caregiver clean and disinfect high-touch surfaces in other areas of the home. ??? Clean and disinfect: Routinely clean high-touch surfaces in your ???sick room?? and bathroom. Let someone else clean and disinfect surfaces in common areas, but not your bedroom and bathroom. ? If a caregiver or other person needs to clean and disinfect a sick person???s bedroom or bathroom, they should do so on an as-needed basis. The caregiver/other person should wear a mask and wait as long as possible after the sick person has used the bathroom. ? High-touch surfaces include phones, remote controls, counters, tabletops, doorknobs, bathroom fixtures, toilets, keyboards, tablets and bedside tables. ??? Clean and disinfect areas that may have blood, stool, or body fluids on them. ??? Household grader green meat and disinfectants: Clean the area or item with soap and water or another detergent if it is dirty. Then, use a household disinfectant. ??? Be sure to follow the instructions on the label to ensure safe and effective use of the product. Many products recommend keeping the surface wet for several minutes to ensure germs are killed. Many also recommend precautions such as wearing gloves and making sure you have good ventilation during use of the product. ??? Most EPA-registered household disinfectants should be effective. A full list of disinfectants can be found here: https://www.epa.gov/pesticide-registration/qque-j-btqghbyizuypy-wfc-sezgyzu-gi rs-cov-2 Moderate Conscious Sedation, Adult, Care After These [...] you are awake and alert. ??? Take xvsd-knk-ferqyns and prescription medicines only as told by [...] have with your health care provider. Document Revised: 08/16/2018 Document Reviewed: 12/23/2016 [employer] Patient Education ?? 2020 [employer] Coronary Angiogram With Stent, Care After This sheet gives you information about how to care for yourself after your procedure. Your health care provider may also give you more specific instructions. If you have problems or questions, contact your health care provider. What can I expect after the procedure? After the procedure, it is common to have: ??? Bruising and tenderness at the insertion site. This usually fades within 1???2 weeks. ??? A collection of blood under the skin (hematoma). This usually decreases within 1???2 weeks. Follow these instructions at home: Medicines ??? Take ohfq-qgj-tlwothd and prescription medicines only as told by your health care provider. ??? If you were prescribed an antibiotic medicine, take it as told by your health care provider. Do not stop using the antibiotic even if you start to feel better. ??? If you take medicines for diabetes, your health care provider may need to change how much you take. Ask your health care provider for specific directions about taking your diabetes medicines. ??? If you are taking blood thinners: ? Talk with your health care provider before you take any medicines that contain aspirin or NSAIDs, such as ibuprofen. These medicines increase your risk for dangerous bleeding. ? Take your medicine exactly as told, at the same time every day. ? Avoid activities that could cause injury or bruising, and follow instructions about how to prevent falls. ? Wear a medical alert bracelet or carry a card that lists what medicines you take. Eating and drinking ??? Follow instructions from your health care provider about eating or drinking restrictions. ??? Eat a heart-healthy diet that includes plenty of fresh fruits and vegetables. ??? Avoid foods that are high in salt, sugar, or saturated fat. Avoid fried foods or canned or highly processed food. ??? Drink enough fluid to keep your urine pale yellow. Alcohol use ??? Do not drink alcohol if: ? Your health care provider tells you not to. ? You are , may be , or plan to become . ??? If you drink alcohol: ? Limit how much you use to: ? 0???1 drink a day for women. ? 0???2 drinks a day for men. ? Be aware of how much alcohol is in your drink. In the [place] one drink equals one 12 oz bottle of beer (355 mL), one 5 oz glass of wine (148 mL), or one 1?? oz glass of hard liquor (44 mL). Bathing ??? Do not take baths, swim, or use a hot tub until your health care provider approves. Ask your health care provider if you may take showers. You may only be allowed to take sponge baths. ??? Gently wash the insertion site with plain soap and water. ??? Pat the area dry with a clean towel. Do not rub. This may cause bleeding. Incision care ??? Follow instructions from your health care provider about how to take care of your insertion area. Make sure you: ? Wash your hands with soap and water before and after you change your bandage (dressing). If soap and water are not available, use hand financial aid administrator. ? Change your dressing as told by your health care provider. ? Leave stitches (sutures) or adhesive strips in place. These skin closures may need to stay in place for 2 weeks or longer. If adhesive strip edges start to loosen and curl up, you may trim the loose edges. Do not remove adhesive strips completely unless your health care provider tells you to do that. ??? Do not apply powder or lotion on the insertion area. ??? Check your insertion area every day for signs of infection. Check for: ? Redness, swelling, or pain. ? Fluid or blood. ? Warmth. ? Pus or a bad smell. Activity ??? Do not drive for 24 hours if you were given a sedative during your procedure. ??? Rest as told by your health care provider. ? Avoid sitting for a long time without moving. Get up to take short walks every 1???2 hours. This is important to improve blood flow and breathing. Ask for help if you feel weak or unsteady. ??? Do not lift anything that is heavier than 10 lb (4.5 kg), or the limit that you are told, until your health care provider says that it is safe. ??? Return to your normal activities as told by your health care provider. Ask your health care provider what activities are safe for you. Lifestyle ??? Do not use any products that contain nicotine or tobacco, such as cigarettes, e-cigarettes, and chewing tobacco. If you need help quitting, ask your health care provider. ??? If needed, work with your health care provider to treat other problems, such as being overweight, or having high blood pressure or diabetes. ??? Get regular exercise. Do exercises as told by your health care provider. General instructions ??? Tell all your health care providers that you have a stent. This is especially important if you are going to get imaging studies, such as MRI. ??? Wear compression stockings as told by your health care provider. These stockings help to prevent blood clots and reduce swelling in your legs. ??? Do not strain during a bowel movement if the procedure was done through your leg. Straining may cause bleeding from the insertion site. ??? Keep all follow-up visits as directed by your health care provider. This is important. Contact a health care provider if you: ??? Have a fever. ??? Have chills. ??? Have redness, swelling, or pain around your insertion area. ??? Have fluid or blood (other than a little blood on the dressing) coming from your insertion area. ??? Notice that your insertion area feels warm to the touch. ??? Have pus or a bad smell coming from your insertion area. ??? Have more bleeding from the insertion area. Hold pressure on the area. Get help right away if: ??? You develop chest pain or shortness of breath. ??? You feel like fainting or you faint. ??? Your leg or arm becomes cool, numb, or tingly. ??? You have unusual pain. ??? Your insertion area is bleeding, and bleeding continues after 30 minutes of steadily held pressure. ??? You develop bleeding anywhere else, including from your rectum. There may be bright red blood in your urine or stool, or you may have black, tarry stool. These symptoms may represent a serious problem that is an emergency. Do not wait to see if the symptoms will go away. Get medical help right away. Call your local emergency services (911 in the [place] Do not drive yourself to the hospital. Summary ??? After this procedure, it is common to have bruising and tenderness around the catheter insertion site. This will go away in a few weeks. ??? Follow your health care provider's instructions about caring for your insertion site. Change dressing and clean the area as instructed. ??? Eat a heart-healthy diet. Limit alcohol use. Do not use tobacco or nicotine. ??? Contact a health care provider if you have fever or chills, or if you have pus or a bad smell coming from the site. ??? Get help right away if you develop chest pain, you faint, or have bleeding at the insertion site. This information is not intended to replace advice given to you by your health care provider. Make sure you discuss any questions you have with your health care provider. Document Revised: 03/24/2020 Document Reviewed: 03/24/2020 [employer] Patient Education ?? 2020 [employer] Heart-Healthy Eating Plan Heart-healthy meal planning includes: ??? Eating less unhealthy fats. ??? Eating more healthy fats. ??? Making other changes in your diet. Talk with your doctor or a diet specialist (dietitian) to create an eating plan that is right for you. What is my plan? Your doctor may recommend an eating plan that includes: ??? Total fat: % or less of total calories a day. ??? Saturated fat: % or less of total calories a day. ??? Cholesterol: less than mg a day. What are tips for following this plan? Cooking Avoid frying your food. Try to bake, boil, grill, or broil it instead. You can also reduce fat by: ??? Removing the skin from poultry. ??? Removing all visible fats from meats. ??? Steaming vegetables in water or broth. Meal planning ??? At meals, divide your plate into four equal parts: ? Fill one-half of your plate with vegetables and green salads. ? Fill one-fourth of your plate with whole grains. ? Fill one-fourth of your plate with lean protein foods. ??? Eat 4???5 servings of vegetables per day. A serving of vegetables is: ? 1 cup of raw or cooked vegetables. ? 2 cups of raw leafy greens. ??? Eat 4???5 servings of fruit per day. A serving of fruit is: ? 1 medium whole fruit. ? ?? cup of dried fruit. ? ?? cup of fresh, frozen, or canned fruit. ? ?? cup of 100% fruit juice. ??? Eat more foods that have soluble fiber. These are apples, broccoli, carrots, beans, peas, and barley. Try to get 20???30 g of fiber per day. ??? Eat 4???5 servings of nuts, legumes, and seeds per week: ? 1 serving of dried beans or legumes equals ?? cup after being cooked. ? 1 serving of nuts is ?? cup. ? 1 serving of seeds equals 1 tablespoon. General information ??? Eat more home-cooked food. Eat less restaurant, buffet, and fast food. ??? Limit or avoid alcohol. ??? Limit foods that are high in starch and sugar. ??? Avoid fried foods. ??? Lose weight if you are overweight. ??? Keep track of how much salt (sodium) you eat. This is important if you have high blood pressure. Ask your doctor to tell you more about this. ??? Try to add vegetarian meals each week. Fats ??? Choose healthy fats. These include olive oil and canola oil, flaxseeds, walnuts, almonds, and seeds. ??? Eat more omega-3 fats. These include salmon, mackerel, sardines, tuna, flaxseed oil, and ground flaxseeds. Try to eat fish at least 2 times each week. ??? Check food labels. Avoid foods with trans fats or high amounts of saturated fat. ??? Limit saturated fats. ? These are often found in animal products, such as meats, butter, and cream. ? These are also found in plant foods, such as palm oil, palm kernel oil, and coconut oil. ??? Avoid foods with partially hydrogenated oils in them. These have trans fats. Examples are stick margarine, some tub margarines, cookies, crackers, and other baked goods. What foods can I eat? Fruits All fresh, canned (in natural juice), or frozen fruits. Vegetables Fresh or frozen vegetables (raw, steamed, roasted, or grilled). Green salads. Grains Most grains. Choose whole wheat and whole grains most of the time. Rice and pasta, including brown rice and pastas made with whole wheat. Meats and other proteins Lean, well-trimmed beef, veal, pork, and henderson. Chicken and turkey without skin. All fish and shellfish. Wild duck, rabbit, pheasant, and venison. Egg whites or low-cholesterol egg substitutes. Dried beans, peas, lentils, and tofu. Seeds and most nuts. Dairy Low-fat or nonfat cheeses, including ricotta and mozzarella. Skim or 1% milk that is liquid, powdered, or evaporated. Buttermilk that is made with low-fat milk. Nonfat or low-fat yogurt. Fats and oils Non-hydrogenated (trans-free) margarines. Vegetable oils, including soybean, sesame, sunflower, olive, peanut, safflower, corn, canola, and cottonseed. Salad dressings or mayonnaise made with a vegetable oil. Beverages Mineral water. Coffee and tea. Diet carbonated beverages. Sweets and desserts Sherbet, gelatin, and fruit ice. Small amounts of dark chocolate. Limit all sweets and desserts. Seasonings and condiments All seasonings and condiments. The items listed above may not be a complete list of foods and drinks you can eat. Contact a dietitian for more options. What foods should I avoid? Fruits Canned fruit in heavy syrup. Fruit in cream or butter sauce. Fried fruit. Limit coconut. Vegetables Vegetables cooked in cheese, cream, or butter sauce. Fried vegetables. Grains Breads that are made with saturated or trans fats, oils, or whole milk. Croissants. Sweet rolls. Donuts. High-fat crackers, such as cheese crackers. Meats and other proteins Fatty meats, such as hot dogs, ribs, sausage, byers, rib-eye roast or steak. High-fat deli meats, such as salami and bologna. Caviar. Domestic duck and goose. Organ meats, such as liver. Dairy Cream, sour cream, cream cheese, and creamed cottage cheese. Whole-milk cheeses. Whole or 2% milk that is liquid, evaporated, or condensed. Whole buttermilk. Cream sauce or high-fat cheese sauce. Yogurt that is made from whole milk. Fats and oils Meat fat, or shortening. [place] butter, hydrogenated oils, palm oil, coconut oil, palm kernel oil. Solid fats and shortenings, including byers fat, salt pork, lard, and butter. Nondairy cream substitutes. Salad dressings with cheese or sour cream. Beverages Regular sodas and juice drinks with added sugar. Sweets and desserts Frosting. Pudding. Cookies. Cakes. Pies. Milk chocolate or white chocolate. Buttered syrups. Full-fat ice cream or ice cream drinks. The items listed above may not be a complete list of foods and drinks to avoid. Contact a dietitian for more information. Summary ??? Heart-healthy meal planning includes eating less unhealthy fats, eating more healthy fats, and making other changes in your diet. ??? Eat a balanced diet. This includes fruits and vegetables, low-fat or nonfat dairy, lean protein, nuts and legumes, whole grains, and heart-healthy oils and fats. This information is not intended to replace advice given to you by your health care provider. Make sure you discuss any questions you have with your health care provider. Document Revised: 11/07/2018 Document Reviewed: 10/11/2018 [employer] Patient Education ?? 2020 [employer] Radial Site Care This sheet gives you information about how to care for yourself after your procedure. Your health care provider may also give you more specific instructions. If you have problems or questions, contact your health care provider. What can I expect after the procedure? After the procedure, it is common to have: ??? Bruising and tenderness at the catheter insertion area. Follow these instructions at home: Medicines ??? Take pgst-pry-zvglckc and prescription medicines only as told by your health care provider. Insertion site care ??? Follow instructions from your health care provider about how to take care of your insertion site. Make sure you: ? Wash your hands with soap and water before you change your bandage (dressing). If soap and water are not available, use hand financial aid administrator. ? Change your dressing as told by your health care provider. ? Leave stitches (sutures), skin glue, or adhesive strips in place. These skin closures may need to stay in place for 2 weeks or longer. If adhesive strip edges start to loosen and curl up, you may trim the loose edges. Do not remove adhesive strips completely unless your health care provider tells you to do that. ??? Check your insertion site every day for signs of infection. Check for: ? Redness, swelling, or pain. ? Fluid or blood. ? Pus or a bad smell. ? Warmth. ??? Do not take baths, swim, or use a hot tub until your health care provider approves. ??? You may shower 24???48 hours after the procedure, or as directed by your health care provider. ? Remove the dressing and gently wash the site with plain soap and water. ? Pat the area dry with a clean towel. ? Do not rub the site. That could cause bleeding. ??? Do not apply powder or lotion to the site. Activity ??? For 24 hours after the procedure, or as directed by your health care provider: ? Do not flex or bend the affected arm. ? Do not push or pull heavy objects with the affected arm. ? Do not drive yourself home from the hospital or clinic. You may drive 24 hours after the procedure unless your health care provider tells you not to. ? Do not operate machinery or power tools. ??? Do not lift anything that is heavier than 10 lb (4.5 kg), or the limit that you are told, until your health care provider says that it is safe. ??? Ask your health care provider when it is okay to: ? Return to work or school. ? Resume usual physical activities or sports. ? Resume sexual activity. General instructions ??? If the catheter site starts to bleed, raise your arm and put firm pressure on the site. If the bleeding does not stop, get help right away. This is a medical emergency. ??? If you went home on the same day as your procedure, a responsible adult should be with you for the first 24 hours after you arrive home. ??? Keep all follow-up visits as told by your health care provider. This is important. Contact a health care provider if: ??? You have a fever. ??? You have redness, swelling, or yellow drainage around your insertion site. Get help right away if: ??? You have unusual pain at the radial site. ??? The catheter insertion area swells very fast. ??? The insertion area is bleeding, and the bleeding does not stop when you hold steady pressure on the area. ??? Your arm or hand becomes pale, cool, tingly, or numb. These symptoms may represent a serious problem that is an emergency. Do not wait to see if the symptoms will go away. Get medical help right away. Call your local emergency services (911 in the [place] Do not drive yourself to the hospital. Summary ??? After the procedure, it is common to have bruising and tenderness at the site. ??? Follow instructions from your health care provider about how to take care of your radial site wound. Check the wound every day for signs of infection. ??? Do not lift anything that is heavier than 10 lb (4.5 kg), or the limit that you are told, until your health care provider says that it is safe. This information is not intended to replace advice given to you by your health care provider. Make sure you discuss any questions you have with your health care provider. Document Revised: 10/09/2018 Document Reviewed: 10/09/2018 [employer] Patient Education ?? 2020 [employer] ticagrelor (una KA hans or) Brilinta (ticagrelor) What is the most important information I should know about ticagrelor? You should not use ticagrelor if you have any active bleeding or a history of bleeding in the brain. Do not use this medicine just before heart bypass surgery. Ticagrelor may cause you to bleed more easily, which can be severe or life-threatening. Call your doctor or seek emergency medical attention if you have bleeding that will not stop, black or bloody stools, red or pink urine, or if you cough up blood or vomit that looks like coffee grounds. Tell your doctor about all your current medicines and any you start or stop using. Many drugs can interact with ticagrelor. Do not stop taking ticagrelor without first talking to your doctor, even if you have signs of bleeding. Stopping ticagrelor may increase your risk of a heart attack or stroke. What is ticagrelor? Ticagrelor is used to lower your risk of heart attack, stroke, or due to a blocked artery or a prior heart attack. Ticagrelor is also used to lower your risk of blood clots if you have coronary artery disease (decreased blood flow to the heart) and have been treated with stents to open clogged arteries. Ticagrelor is also used to lower your risk of a first heart attack or stroke if you have decreased blood flow to the heart. Ticagrelor is also used to lower the risk of stroke and in adults with a blockage or decreased blood flow in an artery that supplies blood to the brain. Ticagrelor is usually given together with low-dose aspirin. Carefully follow your doctor's dosing instructions. Using too much aspirin can make ticagrelor less effective. Ticagrelor may also be used for purposes not listed in this medication guide. What should I discuss with my healthcare provider before taking ticagrelor? You should not use ticagrelor if you are allergic to it, or if you have: ?? any active bleeding; or ?? a history of bleeding in the brain (such as from a head injury). Tell your doctor if you have ever had: ?? a stroke; ?? heart problems; ?? a surgery or bleeding injury; ?? bleeding problems; ?? a stomach ulcer or colon polyps; ?? liver disease; or ?? asthma, COPD (chronic obstructive pulmonary disorder) or other breathing problem. It is not known whether this medicine will harm an unborn baby. Tell your doctor if you are or plan to become . You should not breastfeed while using ticagrelor. How should I take ticagrelor? Follow all directions on your prescription label and read all medication guides or instruction sheets. Ticagrelor is taken together with aspirin. Use these medicines exactly as directed. Do not take more aspirin than your doctor has prescribed. Taking too much aspirin can make ticagrelor less effective. Take ticagrelor at the same times each day, with or without food. If you cannot swallow a tablet whole, crush the pill and mix it with water. Stir and drink this mixture right away. Add more water to the glass, stir, and drink right away. Ticagrelor keeps your blood from coagulating (clotting) and can make it easier for you to bleed, even from a minor injury. Contact your doctor or seek emergency medical attention if you have any bleeding that will not stop. To prevent excessive bleeding, you may need to stop using ticagrelor for a short time before a surgery, medical procedure, or dental work. Any healthcare provider who treats you should know that you are taking ticagrelor. Do not stop taking ticagrelor without first talking to your doctor, even if you have signs of bleeding. Stopping the medicine could increase your risk of a heart attack or stroke. This medicine may affect medical testing for platelets in your blood and you may have false results. Tell the laboratory staff that you use ticagrelor. Store at room temperature away from moisture and heat. What happens if I miss a dose? Skip the missed dose and use your next dose at the regular time. Do not use two doses at one time. What happens if I overdose? Seek emergency medical attention or call the Poison Help line at . Overdose can cause excessive bleeding. What should I avoid while taking ticagrelor? Drinking alcohol while taking aspirin can increase your risk of stomach bleeding. Avoid activities that may increase your risk of bleeding or injury. Use extra care to prevent bleeding while shaving or brushing your teeth. While taking ticagrelor with aspirin, avoid using medicines for pain, fever, swelling, or cold/flu symptoms. They may contain ingredients similar to aspirin (such as salicylates, ibuprofen, ketoprofen, or naproxen). Taking certain products together can cause you to get too much aspirin which can increase your risk of bleeding. What are the possible side effects of ticagrelor? Get emergency medical help if you have signs of an allergic reaction: hives; difficult breathing; swelling of your face, lips, tongue, or throat. Call your doctor at once if you have: ?? slow heartbeats; ?? nosebleeds, or any bleeding that will not stop; ?? shortness of breath even with mild exertion or while lying down; ?? easy bruising, unusual bleeding, purple or red spots under your skin; ?? red, pink, or brown urine; ?? black, bloody, or tarry stools; or ?? coughing up blood or vomit that looks like coffee grounds. Common side effects may include: ?? bleeding; or ?? shortness of breath. This is not a complete list of side effects and others may occur. Call your doctor for medical advice about side effects. You may report side effects to FDA at 8-385-HFZ-9699. What other drugs will affect ticagrelor? Sometimes it is not safe to use certain medications at the same time. Some drugs can affect your blood levels of other drugs you take, which may increase side effects or make the medications less effective. Tell your doctor about all your current medicines. Many drugs can affect ticagrelor, especially: ?? antifungal medicine; ?? antiviral medicine to treat HIV or AIDS; ?? a blood thinner; ?? cholesterol medication; ?? heart or blood pressure medication; ?? opioid medication; ?? seizure medicine; or ?? tuberculosis medicine. This list is not complete and many other drugs may affect ticagrelor. This includes prescription and zahu-xqw-cqdckli medicines, vitamins, and herbal products. Not all possible drug interactions are listed here. Where can I get more information? Your pharmacist can provide more information about ticagrelor. Remember, keep this and all other medicines out of the reach of children, never share your medicines with others, and use this medication only for the indication prescribed. Every effort has been made to ensure that the information provided by [employer]') is accurate, up-to-date, and complete, but no guarantee is made to that effect. Drug information contained herein may be time sensitive. [employer] information has been compiled for use by healthcare practitioners and consumers in the [place] and therefore [employer] does not warrant that uses outside of the [place] are appropriate, unless specifically indicated otherwise. [employer] drug information does not endorse drugs, diagnose patients or recommend therapy. [employer] drug information is an informational resource designed to assist licensed healthcare practitioners in caring for their patients and/or to serve consumers viewing this service as a supplement to, and not a substitute for, the expertise, skill, knowledge and judgment of healthcare practitioners. The absence of a warning for a given drug or drug combination in no way should be construed to indicate that the drug or drug combination is safe, effective or appropriate for any given patient. [employer] does not assume any responsibility for any aspect of healthcare administered with the aid of information [employer] provides. The information contained herein is not intended to cover all possible uses, directions, precautions, warnings, drug interactions, allergic reactions, or adverse effects. If you have questions about the drugs you are taking, check with your doctor, nurse or pharmacist. Copyright 6721-8291 [employer]. Version: 5.01. Revision Date: 10/08/2020. Emergency Awareness and Preventative Care STROKE is [...] Assistance with quitting is available by contacting 7-568-MQQT-NOW. This is a free resource providing counseling, support, and referral. Or you may contact your personal physician. National Suicide Prevention Lifeline: The National Suicide Prevention [...] This Visit (last charted value for your 01/31/2021 visit) Hematology 01/31/2021 10:47 AM Hemoglobin POC: 13.9 Gram/dL -- Normal range between ( 12.0 and 17.0 ) Hematocrit POC: 41.0 % -- Normal range between ( 38.0 and 51.0 ) 01/31/2021 10:45 AM Platelet Count: 181 K/uL -- Normal range between ( 163 and 369 ) General Chemistry 01/31/2021 10:47 AM eGFR : 77 mL/min/1.73m2 eGFR NonAfrican: 64 mL/min/1.73m2 Sodium POC: 141 mmol/L -- Normal range between ( 138 and 146 ) Ca Ioniz POC: 1.27 mmol/L -- Normal range between ( 1.12 and 1.32 ) Potassium POC: 4.2 mmol/L -- Normal range between ( 3.5 and 4.9 ) Creatinine POC: 1.1 mg/dL -- Normal range between ( 0.6 and 1.3 ) BUN POC: 30 mg/dL -- Normal range between ( 8 and 26 ) CO2 POC: 25.0 mmol/L -- Normal range between ( 24.0 and 29.0 ) Chloride POC: 103 mmol/L -- Normal range between ( 98 and 109 ) Glucose POC: 129 mg/dL -- Normal range between ( 70 and 105 ) Anion Gap POC: 18.0 mmol/L -- Normal range between ( 10.0 and 20.0 ) Coagulation 01/31/2021 1:44 PM ACT POC: 252 Second(s) -- Normal range between ( 74 and 137 ) Vascular Ultrasound 01/31/2021 12:25 PM VL Vascular Access: VL Vascular Access Patient Name:STEVE TOBAR I have received and understand this information and was given the opportunity to ask questions. Patient/Cullet Crusher And Washer Name: Patient/Cullet Crusher And Washer Signature: Relationship to Patient: Clinician/Hospital Cullet Crusher And Washer Signature: Date: Electronically signed by [facility] Conversion Job Hand Cerner at 01/05/2023 12:24 PM CDT documented in this encounter Plan of Treatment Not on file documented as of this encounter Visit Diagnoses Not on filedocumented in this encounter Care Teams Carroting Machine Operator Relationship Specialty Start Date End Date Stephen Chen MD [address] [place] [id number] PCP - General Family Medicine 09/26/23 documented as of this encounter
--- OUTSIDE RECORDS SUMMARY | 2025-04-13 12:16 | XMS_ITS | Encounter Summary ---
Author Organization [employer] ([place], [place], [place], [place]) Address [address] [place] [address] Care Team Providers Care Heater Planer Operator Name Role Phone Stephen Chen MD Primary Care Provider [phone] Encounter Details Date Type Department Care Team (Late st Contact Info) Description 01/31/2021 Transcribed Document [facility] [place] [address] [place] [id number] ProviderMeredith MD [address] [place] [id number] Social History Tobacco Use Types Packs/Day Years Used Date Smoking Tobacco: Never Assessed Sex and Gender Information Value Date Recorded Sex Assigned at Not on file Legal 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 ADDITIONAL REFERRING PHYSICIAN: Dr. Dionna Washington. PROCEDURE: Standard left heart catheterization technique. A 5/6-Chinese sheath was placed in the right radial artery. JR4 diagnostic catheter was used for selective angiography of the right coronary artery and obtaining pressures in the left ventricle. CLS 3.5 guide catheter was used for selective angiography, left coronary artery, iFR assessment followed by successful percutaneous intervention. Following the procedure, radial artery sheath was removed and the access site successfully compressed using a TR band. The patient received moderate conscious sedation for the procedure including intravenous Versed and fentanyl. He was monitored for more than 1 hour without respiratory distress. HEMODYNAMICS: Left ventricle 140/10 mmHg. Aorta 125/60 mmHg. DIAGNOSES: 1. Severe single-vessel coronary artery disease in the mid LAD confirmed by iFR of 0.87 to be clinically significant. 2. 15 mmHg catheter pullback gradient across the aortic valve suggestive of mild aortic stenosis. CORONARY ANATOMY: 1. Left main trunk: Minimal atherosclerosis. 2. LAD: Moderate caliber vessel, which gives rise to a small caliber first diagonal branch, moderate caliber second diagonal branch, additional small caliber third diagonal branch before extending to the apex. There is a borderline lesion 60% in narrowing the mid LAD followed by another narrowing of 50% distally. The iFR across the mid LAD lesion was 0.87 consistent with clinically significant stenosis. Mild atherosclerosis is present in remaining portion the LAD and the diagonal branches. 3. Circumflex artery: Large caliber vessel, which gives rise to a tiny high lateral branch, moderate caliber lateral branch, and small caliber posterolateral branch. Mild atherosclerosis present circumflex artery. 4. Right coronary artery: Dominant vessel. Large caliber vessel, which gives rise to a moderate caliber posterior descending artery. 5. Left ventricle: Mildly elevated left ventricular filling pressure with 15 mmHg of gradient with catheter pullback method. IMPRESSION: Angiographically the patient has severe single vessel coronary disease confirmed by iFR assessment of 0.87, to be clinically significant in the mid LAD. There is mild aortic stenosis by suggested by catheter pullback method. Given the patient's limiting dyspnea resulting in recent ER visit, percutaneous intervention to the mid LAD was performed. PERCUTANEOUS INTERVENTION: The left coronary artery was engaged using CLS 3.5 guide catheter. The lesion was already crossed using IFR wire. Angioplasty was initially performed using a 2.25 x 12 Emerge balloon with inflation to 16 atmospheres. A 3.0 x 16 Synergy stent was then successfully deployed with inflation to 11 atmospheres. No residual stenosis. Intracoronary nitroglycerin was administered to optimize vessel sizing. No complications. The patient received initially 5 mg of verapamil and 50 units/kg of heparin via the right radial artery sheath. Additional intravenous heparin was administered for a total of 70 units/kg. ACT of greater than 220 seconds was achieved. The patient was given Cangrelor bolus and infusion in the orthodontic lab technician as well as 243 mg of aspirin and 180 mg of Brilinta. The radial artery sheath was removed and the access site successfully compressed using a TR band. /[id number] Sy East MD SSL/AQ / SSL / MODL /[id number] CC: Dr. Shantell Delgado MD Electronically signed by [facility] Conversion Hob Machine Operator Cerner at 01/05/2023 12:23 PM CDT documented in this encounter Plan of Treatment Not on file documented as of this encounter Visit Diagnoses Not on filedocumented in this encounter Care Teams Heater Planer Operator Relationship Specialty Start Date End Date Stephen Chen MD [address] [place] [id number] PCP - General Family Medicine 09/26/23 documented as of this encounter
--- OUTSIDE RECORDS SUMMARY | 2025-04-13 12:16 | XMS_ITS | Data Portability ---
Author Organization SUJIT EMMETT [facility] Address [address] [place] [address] [address] [place] [address] Care Team Providers Care Signals Analyst Name Role Phone LEE CALVILLO Referring Provider Assessment No assessment recorded. Plan of Treatment Reminders Order Date Submit Date Provider Last Modified By Organization Details Last Modified Time Details Appointments None recorded. Lab None recorded. Referral None recorded. Procedures None recorded. Surgeries None recorded. Imaging None recorded. Medication Orders ipratropiu m bromide 42 mcg (0.06 %) nasal spray 2020 021 [facility], [address] [place] [address], [address], 17:06:13 Patient TargetsNo targets recorded. Patient Instructions Encounter Date Encounter Id Patient Instructions Last Modified By Organization Details Last Modified Time 01/07/2021 [id number] 1. Audiogram performed in office today - 2. RX: Ipratropium [place] nasal spray; 2 sprays in each nostril up to 3 times a day. 3. Discontinue Flonase nasal spray. 4. Recommended auto-inflating his ears on a regular basis. 5. Hearing aid evaluation recommended; son reported he ordered some hearing aids online that has yet to come in. Recommended trying those. 6. Follow up as needed. 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 Procedures Surgical History Date Name Laterality Status Provider Name and Address Organization Details Recorded Time 01/08/20 21 Tympanogram completed NILSA RUBALCAVA AUD [address] [place], [address], [facility] 01/07/2021 14:37:28 01/08/20 21 Audiogram completed NILSA RUBALCAVA AUD [address] [place], [address], [facility] 01/07/2021 14:37:26 05/05/20 20 Electromyography (EMG) with Nerve Conduction Study (NCV) completed Richa Dietz (Nicky) [facility] 05/05/2020 16:02:13 Knee arthroscopy/surgery completed Re [facility] 01/07/2021 13:48:20 Appendectomy completed Re [facility] 01/07/2021 13:48:32 Back Surgery completed Re [facility] 01/07/2021 13:48:38 procedure on kidney completed Hayley stoddard [facility] 01/07/2021 13:55:12 procedure on shoulder completed [facility] 01/07/2021 13:57:17 Imaging Results None recorded. Procedure Notes None recorded. Medical Equipment None Reported. Allergies Allergen ID Allergen Name Allergen Category Reaction Reaction Severity Criticality Documentation Date Start Date Code Code System Note Provider Name and Address Organization Details Recorded Time 370942 Tetanus Toxoid medicatio n Not available Not available Not available 08/11/20162013 49215 UNK Comme nt: Shane ed By: Vi salazar Date: 014 4:40: 19 PM; Re Dai [facility] 13:41:33 Medications Name Sig Start Date Stop [...] bromide 42 mcg (0.06 %) nasal spray Doyle 2 sprays 3 times a day by [...] release Not Available Not Available Not Available Klor-Con M20 mEq tablet,ex tended release active Not [...] Updated DateTime 01/07/2021 97.1 [degF] Re Dai [facility] 01/07/2021 13:40:55 Social History Question Answer Notes LastModified by Organizat ion Details LastModified Time Tobacco Smoking Status Never Smoker Re Dai [facility] 01/07/2021 13:48:06 How Much Tobacco Do You Chew? None [email or web address] Information not available 01/07/2021 Sex: Unknown Functional Status Question Answer Note LastModified by Organization D etails LastModified Time What is your level of alcohol consumption? None [email or web address] Information not available 01/07/2021 Mental Status None recorded. Family History Relationship Description Onset Age of this Age Resolved Age Notes LastModified by Organization Details LastModified Time Brother Hearing loss [email or web address] Not av ailable 01/07/2021 13:47:40 Brother Hypertensive disorder [email or web address] Not available 01/07 13:47:51 Brother Diabetes mellitus [email or web address] Not available 01/07 13:47:59 Mother Hypertensive disorder [email or web address] Not available 01/07 13:47:51 Mother Diabetes mellitus [email or web address] Not available 01/07 13:47:59 Medical History Condition Response Depression Y Anxiety Disorder Y Arthritis Y Acid Reflux (GERD) Y Cancer Y Ulcers Y Sleep Disorder Hypertension Y Past Encounters Encounter ID Performer Location Encounter Start Date Encounter Closed Date Diagnosis/Indication Diagnosis SNOMED-CT Code Diagnosis ICD10 Code Diagnosis Note [id number] [facility] [address] 12/21/2016 05:45:28 12/21/2016 05:45:28 [id number] KASSY RENDON MD NEUROLOGY [facility] [address] [place] [address] 05/05/2020 14:34:02 05/05/2020 16:08:04 Brachial plexopathy of right upper limb 9769820079 1213460 G54.0 Cervical radiculopathy 33386646 M54.12 Diabetic p eripheral neuropathy 503013898 E11.40 Bilateral carpal tunnel syndrome 6302819952 3435386 G56.03 Ulnar neur opathy of left arm 3752027755 36294 G56.22 [id number] VIC BUSTOS MD [place] [facility] [address] [place] [address] 01/07/2021 13:08:53 01/07/2021 14:57:07 Dysfunction of bilateral eustachian tubes 4244671936 370260 H69.93 Sensorineu ral hearing loss of bilateral ears 865352917 H90.3 - Moderate to profound SNHL, right > left with 36% WDS on the right and 60% WDS on the left - 01/07/2021 Exposed to noise 3150391 W42.9XXA - 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 - 01/07/2021 Posterior rhinorrhea 758 52579 R09.82 Deviated nasal septum 12 9971076 J34.2 Hypertroph y of nasal turbinates 53413021 J34.3 Vasomotor rhinitis 00826 03 J30.0 - Ipratropiu m [place] nasal spray prescribed - 01/07/2021 [id number] NILSA RUBALCAVA, AUD [place] [facility] [address] [place] [address] 01/07/2021 14:37:10 01/07/2021 14:38:57 Sensorineural hearing loss of bilateral ears 331581420 H90.3 Otalgia 21805433 H92.03 Health Concerns Section Related Observation LastModified by Organization Detai ls LastModified Time None Recorded Concern Status LastModified by Organization Details LastModified Time None Recorded Advance Directives Directive None Recorded Payers Insurance Date Sequence Insurance Name Policy Number Policy Whitaker Covered Member ID Whitaker Member ID Guarantor Name 04/17/2022 2 [employer] (MEDICARE SUPPLEMENT) Steve King [id number] Steve King 01/11/2021 1 [facility] (MEDICARE REPLACEMENT/ ADVANTAGE - PPO) [id number] Steve King [id number] Steve King
--- OUTSIDE RECORDS SUMMARY | 2025-04-13 12:17 | XMS_ITS | Encounter Summary ---
Author Organization [facility] Address [address] [place] [address] Care Team Providers Care Tree Surgeon Name Role Phone Stephen Chen MD Primary Care Provider Encounter Details Date Type Department Care Team (Latest Contact Info) Description 04/07/2025 Travel Social History Tobacco Use Types Packs/Day Years Used Date Smoking Tobacco: Never Passive Smoke Exposure: Never Smokeless Tobacco: Never Alcohol Use Standard Drinks/Week Comments Never 0 (1 standard drink = 0.6 oz pur e alcohol) [facility] Utilities Answer Date Recorded In the past 12 months has Chat& ([employer]), gas, oil, or water Lessons Only threatened to shut off services in your [...] and heating? Not hard at all 07/08/2024 [facility] [place] of Occupat ional Health - Occupational Stress [...] GED or equivalent No 07/08/2024 Preferred Language Singaporean 07/08/2024 PHQ-2 Answer Date Recorded Patient Health Questionnaire-2 Score 0 07/08/2024 Sex and Gender Information Value Date Recorded Sex Assigned at Not on file Legal Sex Male 10:35 AM EDT Gender Identity Not on file Sexual Orientation Not on file documented as of this encounter Plan of Treatment Upcoming Encounters Date Type Department Care Team (Late st Contact Info) Description 04/16/2025 3:00 PM EDT Office Visit [facility] [address] [place] [address] [place] [address] Mandy Giron, LEESA [address] [place] [id number] 05/20/2025 2:15 PM EDT Office Visit [facility] [address] [place] [address] [place] [address] Jocelyne Bosch MD [address] [place] [address] documented as of this encounter Visit Diagnoses Not on filedocumented in this encounter Care Teams Tree Surgeon Relationship Specialty Start Date End Date Stephen Chen MD [address] [facility] [address] [place] [address] PCP - General Family Medicine 06/27/23 documented as of this encounter
--- OUTSIDE RECORDS SUMMARY | 2025-04-13 12:17 | XMS_ITS | Encounter Summary ---
Author Organization [employer] ([place], [place], [place], [place]) Address [address] [place] [address] Care Team Providers Care Water Resource Engineering Specialist Name Role Phone Stephen Chen MD Primary Care Provider [phone] Encounter Details Date Type Department Care Team (Late st Contact Info) Description 01/31/2021 Transcribed Document [facility] [place] [facility] [place] [address] ProviderMeredith MD [address] [place] [address] Social History Tobacco Use Types Packs/Day Years Used Date Smoking Tobacco: Never Assessed Sex and Gender Information Value Date Recorded Sex Assigned at Not on file 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 If I'm a patient, should I wear a mask? [...] through the local health department and the [place] Department for Public Health. Those organizations are [...] need during a recommended self-quarantine period. The patient's name is not revealed to anyone during the contact tracing interviews, even if a contact asks. Who would be considered a close contact ? According to the CDC, a close [...] a face covering and maintain social distancing - at least 6 feet from others at [...] and need to call 911, notify the general operator that you have, or think you [...] others. You should stay in a specific sick room if possible, and away from other people [...] (including before you enter a health care provider's office). ??? If you are caring for [...] clean your hands with an alcohol-based hand vice president global digital marketing that contains at least 60% alcohol. Clean your hands often. ??? Wash hands: Wash your hands often with soap and water for at least 20 seconds when visibly dirty. This is especially important after blowing your nose, coughing or sneezing, and going to the bathroom, and before eating or preparing food. ??? Hand vice president global digital marketing: Use an alcohol-based hand vice president global digital marketing with at least 60% alcohol, covering all [...] and water or put them in the nanny/household manager. Clean all high-touch surfaces every day. Clean high-touch surfaces in your isolation area ( sick room and bathroom) every day; let a caregiver clean and disinfect high-touch surfaces in other areas of the home. ??? Clean and disinfect: Routinely clean high-touch surfaces in your sick room and bathroom. Let someone else clean and disinfect surfaces in common areas, but not your bedroom and bathroom. ? If a caregiver or other person needs to clean and disinfect a sick person's bedroom or bathroom, they should do so [...] or body fluids on them. ??? Household catering barista and disinfectants: Clean the area or item with soap and water or another detergent if it is dirty. Then, use a household disinfectant. ?? Be sure to follow the instructions on the label to ensure safe and effective use of the product. Many products recommend keeping the surface wet for several minutes to ensure germs are killed. Many also recommend precautions such as wearing gloves and making sure you have good ventilation during use of the product. ?? Most EPA-registered household disinfectants should be effective. A full list of disinfectants can be found here: https://www.epa.gov/pesticide-registration/xqam-r-dxklmsljizbtl-gzi-evzttpw-hy rs-cov-2 Neurology Radial Site Care This sheet gives you [...] these instructions at home: Medicines ??? Take mqwt-wpk-qfpyedq and prescription medicines only as told by your health care provider. Insertion site care ??? Follow instructions from your health care provider about how to take care of your insertion site. Make sure you: ? Wash your hands with soap and water before you change your bandage (dressing). If soap and water are not available, use hand vice president global digital marketing. ? Change your dressing as told by [...] care provider approves. ??? You may shower 24?48 hours after the procedure, or as directed [...] provider. Document Revised: 10/09/2018 Document Reviewed: 10/09/2018 [employer] Patient Education ? 2020 [employer] Nutrition Heart-Healthy Eating Plan Heart-healthy meal planning includes: [...] plate with lean protein foods. ??? Eat 4?5 servings of vegetables per day. A serving of vegetables is: ? 1 cup of raw or cooked vegetables. ? 2 cups of raw leafy greens. ??? Eat 4?5 servings of fruit per day. A serving of fruit is: ? 1 medium whole fruit. ? ? cup of dried fruit. ? ? cup of fresh, frozen, or canned fruit. ? ? cup of 100% fruit juice. ??? Eat more foods that have soluble fiber. These are apples, broccoli, carrots, beans, peas, and barley. Try to get 20?30 g of fiber per day. ??? Eat 4?5 servings of nuts, legumes, and seeds per week: ? 1 serving of dried beans or legumes equals ? cup after being cooked. ? 1 serving of nuts is ? cup. ? 1 serving of seeds equals [...] Fats and oils Meat fat, or shortening. [place] butter, hydrogenated oils, palm oil, coconut oil, [...] provider. Document Revised: 11/07/2018 Document Reviewed: 10/11/2018 [employer] Patient Education ? 2020 [employer] Pharmacology Moderate Conscious Sedation, Adult, Care After These [...] you are awake and alert. ??? Take pzit-sps-mexvyhu and prescription medicines only as told by [...] provider. Document Revised: 08/16/2018 Document Reviewed: 12/23/2016 [employer] Patient Education ? 2020 [employer] Radiology Coronary Angiogram With Stent, Care After This [...] the insertion site. This usually fades within 1?2 weeks. ??? A collection of blood under the skin (hematoma). This usually decreases within 1?2 weeks. Follow these instructions at home: Medicines ??? Take lmqq-wkx-xrlwcpx and prescription medicines only as told by [...] Limit how much you use to: ? 0?1 drink a day for women. ? 0?2 drinks a day for men. ? Be aware of how much alcohol is in your drink. In the [place] one drink equals one 12 oz bottle of beer (355 mL), one 5 oz glass of wine (148 mL), or one 1? oz glass of hard liquor (44 mL). [...] and water are not available, use hand vice president global digital marketing. ? Change your dressing as told by [...] Get up to take short walks every 1?2 hours. This is important to improve blood [...] provider. Document Revised: 03/24/2020 Document Reviewed: 03/24/2020 Elsevier Patient Education ? 2019 [employer] documented in this encounter Plan of Treatment Not on file documented as of this encounter Visit Diagnoses Not on filedocumented in this encounter Care Teams Water Resource Engineering Specialist Relationship Specialty Start Date End Date Stephen Chen MD [address] [place] [address] PCP - General Family Medicine 09/26/23 documented as of this encounter
--- OUTSIDE RECORDS SUMMARY | 2025-04-13 12:17 | XMS_ITS | Encounter Summary ---
Author Organization [employer] ([place], [place], [place], [place]) Address [address] [place] [address] Care Team Providers Care Silk Opener Name Role Phone Stephen Chen MD Primary Care Provider [phone]- [phone] Encounter Details Date Type Department Care Team (Late st Contact Info) Description 01/31/2021 Transcribed Document [facility] [place] Family Medicine [facility] [place] [address] ProviderMeredith MD [address] [place] [address] Social History Tobacco Use Types Packs/Day Years Used Date Smoking Tobacco: Never Assessed Sex and Gender Information Value Date Recorded Sex Assigned at Not on file 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 Gender Identity Not on file Sexual Orientation Not on file documented as of this encounter Miscellaneous Notes * Cerner Conversion Note - Meredith Rocha MD - 01/31/2021 10:00 AM CDT Patient: STEVE KING Age: 85 years Sex: Male : 1935 Associated Diagnoses: None Author: DICKSON EAST MD-CAR Basic Information Veterinary Toxicologist: Suzi Delgado Chief Complaint Progressive shortness of air Preop clearance; hip History of Present Illness 85 year old male with history of mild CAD per [facility] 2019, HTN, HLD, DMII, has been having progressive exertional dyspnea for the last ~ 2 months. Sx associated with fatigue but not chest pain. Presented to [facility] for these sx x 2; pulmonary imaging was negative. He is planning a total hip arthroplasty with Dr. Walker at [facility] and requires cardiac clearence. Patient denies CP, SOA at rest, sensation of palpitations. He has not taken any of his PO meds today. He is not on metformin at all. Denies any allergy to contrast dye. Lexiscan Cardiolite: 12/03 -- anterior ischemia in the anteroseptal region EF 46% FC II-III; activity severely limited by orthopedic pain. Patient presents for elective LHC with Dr. Dickson East. Review of Systems Constitutional: Negative except as [...] Documented tetanus toxoid None Documented Home Medications (14) Active Aricept 5 mg, Oral, At Bedtime BuSpar 5 mg, Oral, TID Cymbalta 60 mg oral delayed release capsule 60 mg = 1 Cap, Oral, Daily Elavil 10 mg, Oral, At Bedtime Flomax 0.4 mg oral capsule 0.4 mg = 1 Cap, Oral, Daily gabapentin 800 mg, Oral, BID Glucotrol 5 mg oral tablet , Oral, Daily Januvia 100 mg, Oral, Daily Januvia 100 mg oral tablet 100 mg = 1 Tab, Oral, Daily Klor-Con M10 20 mEq, Oral, Daily Lasix 20 mg oral tablet 20 mg = 1 Tab, Oral, Daily Prinivil 2.5 mg, Oral, Daily Ranexa 500 mg oral tablet, extended release , Oral, BID Zoloft 150 mg, Oral, Daily Current medications: (Selected) Documented Medications Documented Aricept: 5 mg, Oral, At Bedtime, 0 Refill(s) BuSpar: 5 mg, Oral, TID, 0 Refill(s) Cymbalta 60 mg oral delayed release capsule: 1 Cap, Oral, Daily, (do not crush or chew), 30 Cap, 0 Refill(s) Elavil: 10 mg, Oral, At Bedtime, 0 Refill(s) Flomax 0.4 mg oral capsule: 1 Cap, Oral, Daily, 30 Cap, 0 Refill(s) Glucotrol 5 mg oral tablet: Tab, Oral, Daily, 0 Refill(s) Januvia 100 mg oral tablet: 1 Tab, Oral, Daily, 30 Tab, 0 Refill(s) Januvia: 100 mg, Oral, Daily, 0 Refill(s) Klor-Con M10: 20 mEq, Oral, Daily, 0 Refill(s) Lasix 20 mg oral tablet: 1 Tab, Oral, Daily, 30 Tab, 0 Refill(s) Prinivil: 2.5 mg, Oral, Daily, 0 Refill(s) Ranexa 500 mg oral tablet, extended release: Tab, Oral, BID, 0 Refill(s) Zoloft: 150 mg, Oral, Daily, 0 Refill(s) gabapentin: 800 mg, Oral, BID, 0 Refill(s) Problem list: All Problems CAD - Coronary artery disease / SNOMED CT 4241759097 / Confirmed HTN - Hypertension / SNOMED CT 2391550908 / Confirmed HLD - Hyperlipidemia / SNOMED CT 608582017 / Confirmed History of obstructive sleep apnea / IMO 91524683 / Confirmed Allergic rhinitis / SNOMED CT 040535583 / Confirmed Hyperlipidemia / SNOMED CT 35872779 / Confirmed Hypertension / SNOMED CT 66745596 / Confirmed Peptic ulcer disease / SNOMED CT 4834577286 / Confirmed Disorder of prostate / SNOMED CT 65968196 / Confirmed Diabetes mellitus / SNOMED CT 817326563 / Confirmed Acute gout / SNOMED CT 708794024 / Confirmed Renal calculus / SNOMED CT 395703543 / Confirmed Memory loss / SNOMED CT 2276919474 / Confirmed Peripheral neuropathy / SNOMED CT 708328074 / Confirmed Anxiety / SNOMED CT 09956984 / Confirmed Dermatitis / SNOMED CT 28112308 / Confirmed Histories No education data available. 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 Non-contributory. Procedure history: appendectomy. heart cath.. kidney stones removed. colonoscopy. prostate surg. right shoulder surg.. cady knee surg.. back surg x 3. staph infection after back surg.. cataract removed. Physical Examination VS/Measurements No qualifying data available General: Alert and oriented, No acute distress. central obesity Eye: Pupils are equal, round and reactive to light, Normal conjunctiva. HENT: Normocephalic. Neck: Supple, No jugular venous distention. Respiratory: Lungs are clear to auscultation, Respirations are non-labored, Symmetrical chest wall expansion. Cardiovascular: Normal rate, Regular rhythm, No murmur, Good pulses equal in all extremities. Gastrointestinal: Soft, Non-distended, Normal bowel sounds. Musculoskeletal: Normal range of motion, Normal strength. Integumentary: Warm, Dry, [place]. Neurologic: Alert, Oriented. Psychiatric: Cooperative, Appropriate mood & affect. Review / Management Results review: No qualifying data available. Documentation reviewed: Records from referring physician, Reviewed prior records. Impression and Plan IMPRESSION: Progressive dyspnea and fatigue in the setting of known 60% mid LAD lesion (iFR .91) by cath 2019, recent ER visit. FC II-III. Lexiscan Cardiolite: 12/03 -- anterior ischemia in the anteroseptal region EF 46% Sinus bradycardia. Hx of mild 13 mmHg gradient across AV suggestive of mild . HTN HLD DMII NIGHAT Hx carotid stenosis. PLAN; Left heart catheterization with possible catheter based intervention. Risks and benefits discussed with patient. Patient wishes to proceed. Discussed CV indications for SGLT2i/GLP1a, pt encouraged to discuss w/ primary MD. CV medication recommendations post cath. Post cath addendum: 60% mid LAD, iFR .87; 11 mmHg gradient across AV. Successful LAD ANN. Started on Brilinta 90 mg BID, will need to defer R hip surgery for > = 3 months. Deferring BB due to baseline sinus bradycardia and successful revascularization,. DC Ranexa. Maintenance of euvolemic status-3 gram Na & 2 Lilter fluid restriction. Change Furosemide to 20 mg as needed for fluid wt gain > 3 lbs/day or > 5 lb/week. Add Lisinopril 2.5 mg every evening. Echo follow-up with Dr. Deglado for mild aortic stenosis by cath pull back documented in this encounter Plan of Treatment Not on file documented as of this encounter Visit Diagnoses Not on filedocumented in this encounter Care Teams Silk Opener Relationship Specialty Start Date End Date Stephen Chen MD [address] [place] [id number] PCP - General Family Medicine 09/26/23 documented as of this encounter
--- OUTSIDE RECORDS SUMMARY | 2025-04-13 12:17 | XMS_ITS | Encounter Summary ---
Author Organization [employer] ([place], [place], [place], [place]) Address [address] [place] [address] Care Team Providers Care Cdl Service Technician Name Role Phone Stephen Chen MD Primary Care Provider [phone]- [phone] Encounter Details Date Type Department Care Team (Late st Contact Info) Description 01/31/2021 Transcribed Document [facility] [place] [facility] [place] [address] ProviderMeredith MD [address] [place] [address] Social History Tobacco Use Types Packs/Day Years Used Date Smoking Tobacco: Never Assessed Sex and Gender Information Value Date Recorded Sex Assigned at Not on file 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 Gender Identity Not on file Sexual Orientation Not on file documented as of this encounter Miscellaneous Notes * Cerner Conversion Note - Historical ProviderMD - 01/31/2021 10:32 AM CDT Pre Procedure Adult Entered On: 01/31/2021 10:44 EDT Performed On: 01/31/2021 10:32 EDT by Mauro Torrez RN Height and Weight, Clinical Dosing Height Source : Stated Height Entry Format : [place] Height, Feet : 6 ft(Converted to: 183 cm, 72 Inch) Height, Inches : 3 Inch(Converted to: 0 ft 3 Inch, 7.62 cm) Clinical Height : 190.5 cm Weight Source : Standing scale Weight Entry Format : [place] Clinical Dosing Weight : 126.36 kg Weight, Pounds : 278 lb Body Surface Area (BSA) : 2.53 m2 Body Mass Index : 34.8 kg/m2 (HI) [place] Body Weight : 83 kg Mauro Torrez RN - 01/31/2021 10:32 EDT Health Histories Smoking Status : Never (less than 100 in lifetime; none in last 30 days) Smokeless Tobacco Status : Never Implant/Device Type, Service Desk Agent and Model : none Mauro Torrez RN - 01/31/2021 10:32 EDT Social History (As Of: 01/31/2021 10:44:23 EDT) Tobacco: Smoking Status Never smoker. (Last [...] Date of COVID-19 test known? : Yes Date of COVID-19 Test : 01/28/2021 EDT Does patient have symptoms of COVID-19? : No COVID19 Screening : No Experiencing Infectious Disease Symptoms : No symptoms Physical contact outside [place] in the last 30 days : No Infectious Disease History : Chicken pox/Shingles, Measles, MRSA, Mumps Tuberculosis Symptoms : None Mauro Torrez RN - 01/31/2021 10:32 EDT COVID19 PreProcedure Screening Is this an Emergent or Add on Procedure? : No Date PreProcedure COVID-19 test known? : Yes Date of PreProcedure COVID-19 : 01/28/2021 EDT Has patient been isolated since the test : No Exposed to COVID19 symptoms since test? : No Mauro Torrez RN - 01/31/2021 10:32 EDT Anesthesia/Transfusion History Family History of Anesthesia Reaction : No prior transfusion(s) Blood Transfusion Acceptable to Patient : Yes Transfusion History : No prior anesthesia Family History of Anesthesia Reaction : None Mauro Torrez RN - 01/31/2021 10:32 EDT Functional Assessment Living Situation : Home Current Home Treatments : Blood glucose monitoring Mauro Torrez RN - 01/31/2021 10:32 EDT Rains Suicide Severity Rating Scale (C-SSRS) CSSRS Past Month Wish to be : No CSSRS Past Month Suicidal Thoughts : No CSSRS Lifetime Suicide Behavior : No Suicide Severity Rating Score : 0 Suicide Severity Rating : No Additional Care Required at this time Thoughts of Harming/Killing Others : No Mauro Torrez RN - 01/31/2021 10:32 EDT Psychosocial History Do You Have a History of the Following? : Depression Currently in Unsafe Situation : No Mauro Torrez RN - 01/31/2021 10:32 EDT Advance Directive Patient has Advance Directive *Q : No, patient refuses Advance Directive information Mauro Torrez RN - 01/31/2021 10:32 EDT General Info Support Person/Pt Rep Name : son Herve [phone] Want Family/Rep/Phys Notified of Admit : No Emergency Contact #1 : Herve Fernando Emergency Contact #1 Emergency Contact #1 Relationship : son Emergency Contact #2 : Ranjeet King Emergency Contact #2 Phone Number : [phone] Emergency Contact #2 Relationship : brother Primary Language : Egyptian Preferred Communication Mode : Verbal Communication Barrier : None Tech Writer Needed : No Mauro Torrez RN - 01/31/2021 10:32 EDT Sleep Apnea Risk Assmt BiPAP/CPAP Ordered for Home Use : Yes Hx of Obstructive Sleep Apnea Diagnosis : Yes BiPAP/CPAP Used at Home : Yes Age over 50 Years Old : Yes Gender Male : Yes Mauro Torrez RN - 01/31/2021 10:32 EDT Naseem Scale Naseem Sensory Perception : No impairment Naseem Moisture : Rarely moist Naseem Activity : Walks occasionally Naseem Mobility : Slightly limited Naseem Nutrition : Adequate Naseem Friction and Shear : No apparent problem Naseem Score : 20 Mauro Torrez RN - 01/31/2021 10:32 EDT Fall Risk Scales ABCs Fall Injury Risk Identification : Age, Bones ABC Fall Injury Risk : Moderate to high injury risk MALIK Hx Falls Immediate/Within 3 Months : No Malik Secondary Diagnosis : Yes MALIK Use of Ambulatory Aid : Bed rest/Nurse assist MALIK IV Therapy or IV Access : Yes Malik Gait/Transferring : Normal, bedrest, immobile Malik Mental Status : Oriented to own ability Malik Fall Risk Score : 35 MALIK Fall Scale Risk Level : 25-45 Medium Risk [place] Fall Interventions : Adequate lighting, Assistive devices within reach, Bed in low position, Call device within reach, Fall prevention handout/education per facility policy, Hourly comfort/safety rounds, Non-slip footwear, Personal items within reach, Reinforced to call for assistance before getting out of bed, Room free of clutter/spills, Upper side-rails up, Wheels locked, Wires/Cords secured Mauro Torrez RN - 01/31/2021 10:32 EDT Valuables and Belongings Valuables and Belongings : Clothing, Personal devices, Personal items, Assistive devices, No comfort items, No jewelry, No respiratory devices, No medications Clothing : Common streetwear Clothing Disposition : With patient Personal Device Disposition : With patient Personal Devices : Hearing aid, left, Hearing aid, right Personal Items : Cell phone, Wallet Personal Items Disposition : With patient Assistive Devices From Home : Cane Assistive Device Disposition : With family Mauro Torrez RN - 01/31/2021 10:32 EDT Lulu Coma Lulu Best Motor Response : Obey commands Lulu Best Verbal Response : Oriented Lulu Eye Opening Response : Spontaneous Lulu Coma Score : 15 Mauro Torrez RN - 01/31/2021 10:32 EDT Electronically signed by Fransisco [facility] Conversion Roustabout Supervisor Cerner at 01/05/2023 12:39 PM CDT documented in this encounter Plan of Treatment Not on file documented as of this encounter Visit Diagnoses Not on filedocumented in this encounter Care Teams Cdl Service Technician Relationship Specialty Start Date End Date Stephen Chen MD [address] [place] [id number] PCP - General Family Medicine 09/26/23 documented as of this encounter
--- OUTSIDE RECORDS SUMMARY | 2025-04-13 12:17 | XMS_ITS | Encounter Summary ---
Author Organization [facility] Address [address] [place] [address] Care Team Providers Care Science Manager Name Role Phone Stephen Chen MD Primary Care Provider Encounter Details Date Type Department Care Team (Latest Contact Info) Description 03/19/2025 Travel Social History Tobacco Use Types Packs/Day Years Used Date Smoking Tobacco: Never Passive Smoke Exposure: Never Smokeless Tobacco: Never Alcohol Use Standard Drinks/Week Comments Never 0 (1 standard drink = 0.6 oz pur e alcohol) [facility] Utilities Answer Date Recorded In the past 12 months has [employer], gas, oil, or water [employer] threatened to shut off services in your [...] and heating? Not hard at all 07/08/2024 [facility] [place] of Occupat ional Health - Occupational Stress [...] GED or equivalent No 07/08/2024 Preferred Language Ukrainian 07/08/2024 PHQ-2 Answer Date Recorded Patient Health [...] Description 04/16/2025 3:00 PM EDT Office Visit [facility] [address] [place] [address] [place] [phone] Mandy Giron, LEESA [address] [place] [address] 05/20/2025 2:15 PM EDT Office Visit [facility] [address] [place] [address] [place] [address] Jocelyne Bosch MD [address] [facility] [address] [place] [address] documented as of this encounter Visit Diagnoses Not on filedocumented in this encounter Care Teams Science Manager Relationship Specialty Start Date End Date Stephen Chen MD [address] [facility] [address] [place] [address] PCP - General Family Medicine 06/27/23 documented as of this encounter
--- OUTSIDE RECORDS SUMMARY | 2025-04-13 12:17 | XMS_ITS | Encounter Summary ---
Author Organization [employer] ([place], [place], [place], [place]) Address [address] [place] [address] Care Team Providers Care Lumber Marker Name Role Phone Stephen Chen MD Primary Care Provider +1- [phone] Encounter Details Date Type Department Care Team (Late st Contact Info) Description 01/31/2021 Transcribed Document [facility] [place] [address] ProviderMeredith MD [address] [place] [address] Social History Tobacco Use Types Packs/Day Years Used Date Smoking Tobacco: Never Assessed Sex and Gender Information Value Date Recorded Sex Assigned at Not on file 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 Gender Identity Not on file Sexual Orientation Not on file documented as of this encounter Miscellaneous Notes * Cerner Conversion Note - Meredith ProviderMD - 01/31/2021 6:53 PM CDT Nursing Discharge Summary Entered On: 01/31/2021 18:54 EDT Performed On: 01/31/2021 18:53 EDT by Mauro Torrez RN Discharge Documentation Discharge Date/Time : 01/31/2021 19:00 EDT Patient Disposition, General : Discharge Discharge To : Home with ambulatory/outpatient follow-up Mode Of Departure, General Discharge : Private vehicle Accompanied By, Discharge : Sibling IV Discontinued : Yes Personal Belongings With Patient : Yes Pt's Own Supply of Medications Returned : No Prescriptions Given to Patient : Electronically sent Medications Given to Patient : No Discharge Instructions Reviewed With, Opportunity For Questions Given : Patient, Sibling Teaching Method : Explanation, Printed materials Teaching Evaluation : Verbalizes understanding Mauro Torrez RN - 01/31/2021 18:53 EDT Electronically signed by Fransisco, [facility] Conversion Pile Driver Operator Helper Cerner at 01/05/2023 12:30 PM CDT documented in this encounter Plan of Treatment Not on file documented as of this encounter Visit Diagnoses Not on filedocumented in this encounter Care Teams Lumber Marker Relationship Specialty Start Date End Date Stephen Chen MD [address] [place] [address] PCP - General Family Medicine 09/26/23 documented as of this encounter
--- OUTSIDE RECORDS SUMMARY | 2025-04-13 12:17 | XMS_ITS | Encounter Summary ---
Author Organization [facility] Address [address] [place] [address] Care Team Providers Care Process Tech Name Role Phone No Pcp, Per Patient Primary Care Provider Robyn arshad Encounter Details Date Type Department Care Team (Late st Contact Info) Description 03/13/2025 Telephone [facility] [address] [id number] Mason Jacome DO [address] [place] [address] Social History Tobacco Use Types Packs/Day Years Used Date Smoking Tobacco: Never Assessed [facility] Utilities Answer Date Recorded In the past 12 months has [employer], gas, oil, or water company threatened to shut off services in your home? No 02/16/2025 Overall Financial Resource Strain (CARDIA) Answe r Date Recorded How hard is it for you to pa y for the very basics like food, housing, medical care, and heating? Not very hard 02/16/2025 PHQ-2 Answer Date Recorded PHQ-2 Total Score 0 02/16/2025 [facility] [place] of Occupat ional Health - Occupational Stress [...] money to get more. Never true 02/16/2025 [facility] IP Transportation Answer D ate Recorded In [...] Encounter - Reji Calderon Ortho Tech - 03/13/2025 3:09 PM EDT post op scheduled * Telephone Encounter - Reji Calderon Ortho Tech - 03/13/2025 12:39 PM EDT number for olayinka needed. Lvmtcb Steve. Needs post-op first available. * Telephone Encounter - Juana Holland, Clerical Staff - 03/13/2025 11:12 AM EDT olayinka calling to find out it pt need PO appt. they have no info on him. he still has roger. is ok for them to remove or does pt need an appt. he arrived at their facility on 03/08/25 with no instructions fax [phone] documented in this encounter Plan of Treatment Upcoming Encounters Date Type Department Care Team (Late st Contact Info) Description 04/28/2025 3:45 PM EDT Office Visit [facility] [address] [place] [phone] Nick Elkins MD [address] [place] [phone] documented as of this encounter Visit Diagnoses Not on filedocumented in this encounter Care Teams Process Tech Relationship Specialty Start Date End Date No Pcp, Per Patient PCP - General 02/16/25 documented as of this encounter
--- OUTSIDE RECORDS SUMMARY | 2025-04-13 12:17 | XMS_ITS | Encounter Summary ---
Author Organization [facility] [place] [address] Care Team Providers Care Radial Drill Press Operator For Plastic Name Role Phone No Pcp, Per Patient Primary Care Provider Robyn arshad Encounter Details Date Type Department Care Team (Late st Contact Info) Description 02/20/2025 Orders Only ORTHO PROVIDER [address] [place] [address] Mason Jacome, [address] [place] [address] Right hip joint effusion (Primary Dx) Social History Tobacco Use Types Packs/Day Years Used Date Smoking Tobacco: Never Assessed [facility] Utilities Answer Date Recorded In the past [...] Date Recorded PHQ-2 Total Score 0 02/16/2025 [facility] [place] of Occupat ional Health - Occupational Stress [...] money to get more. Never true 02/16/2025 [facility] IP Transportation Answer D ate Recorded [...] EDT Office Visit [facility] [address] [place] [phone] Nick Elkins MD [address] [place] [address] Scheduled Orders Name Type Priority Associated Diagnoses Orde r Schedule SURGICAL/PROCEDURE CASE REQUEST - [facility] Procedures Routine Right hip joint effusion Ordered: 02/20/2025 documented as of this encounter Visit Diagnoses Diagnosis Right hip joint effusion- Primary Effusion of pelvic joint documented in this encounter Care Teams Radial Drill Press Operator For Plastic Relationship Specialty Start Date End Date No Pcp, Per Patient PCP - General 02/16/25 documented as of this encounter
--- OUTSIDE RECORDS SUMMARY | 2025-04-13 12:19 | XMS_ITS | Encounter Summary ---
Author Organization [employer] ([place], [place], [place], [place]) Address [address] [place] [address] Care Team Providers Care Lithographic Photographer Apprentice Name Role Phone Stephen Chen MD Primary Care Provider +1- [phone] Encounter Details Date Type Department Care Team (Late st Contact Info) Description 01/31/2021 Transcribed Document [facility] [place] [address] [place] [address] ProviderMeredith MD [address] [place] [address] Social History Tobacco Use Types Packs/Day Years Used Date Smoking Tobacco: Never Assessed Sex and Gender Information Value Date Recorded Sex Assigned at Not on file 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 Site looks good. No s/sx's phebitis noted. Mauro Torrez RN - 01/31/2021 18:33 EDT documented in this encounter Plan of Treatment Not on file documented as of this encounter Visit Diagnoses Not on filedocumented in this encounter Care Teams Lithographic Photographer Apprentice Relationship Specialty Start Date End Date Gustavo, Stephen H, MD [address] [place] [phone] PCP - General Family Medicine 09/26/23 documented as of this encounter
--- NOTE | 2025-04-13 12:23 | CT_ITS ---
FINAL REPORT TECHNIQUE: Thin section axial images are obtained through the abdomen and pelvis after intravenous contrast. Reconstruction images were obtained from the axial data. Exam was performed using dose reduction techniques. This study was performed with techniques to keep radiation doses as low as reasonably achievable (ALARA). Individualized dose reduction techniques using automated exposure control or adjustment of mA and/or kV according to the patient's size were employed. CLINICAL HISTORY: lower abd pain/nausea/constipation COMPARISON: 08/14/2021 FINDINGS: LIVER: Homogeneous. No focal lesion. GALLBLADDER/BILIARY SYSTEM: Gallbladder is present. No gallstones. No biliary dilatation. SPLEEN: Unremarkable. PANCREAS: Unremarkable. ADRENALS: Unremarkable. KIDNEYS/URETERS/BLADDER: No hydronephrosis, renal mass, or renal stone. There is a complex cyst in the upper pole of the right kidney measuring 6.2 cm in size, with peripheral calcification and likely with a thin septation present. There is a hypodense left renal lesion that may represent a cyst. Unremarkable urinary bladder. GI TRACT: No small bowel obstruction or dilatation. The appendix is not visualized, however there are no secondary signs of appendicitis. No acute colon abnormality. PELVIC ORGANS: Several small diverticula are present in the bladder. LYMPH NODES/RETROPERITONEUM/MESENTERY: No lymphadenopathy. No abdominal aortic aneurysm. ABDOMINAL WALL: The abdominal wall is intact. FREE FLUID: A small amount of ascites is present, along with body wall anasarca that may be secondary to volume overload. BONES: No acute osseous abnormality. The previously seen fluid collections in the posterior right hip seen on the prior CT have resolved. IMPRESSION: Complex cyst in the upper pole of the right kidney 6.2 cm in size, would consider renal mass protocol CT for further evaluation. Small amount of ascites, with body wall anasarca, likely secondary to volume overload. Reviewed, Interpreted and Dictated by Judy Estrella MD Transcribed by Faustina Tucker Authenticated and [facility]
--- NOTE | 2025-04-13 12:23 | CT_ITS ---
FINAL REPORT TECHNIQUE: Axial imaging of the chest is obtained after the administration of contrast. 3-D MIP reformatted images were also obtained and reviewed per PE protocol. This study was performed with techniques to keep radiation doses as low as reasonably achievable (ALARA). Individualized dose reduction techniques using automated exposure control or adjustment of mA and/or kV according to the patient's size were employed. CLINICAL HISTORY: chest pain/SOA COMPARISON: 05/13/2024 FINDINGS: The pulmonary arteries are well filled. There is no evidence of pulmonary embolus. The exam is nondiagnostic for aortic dissection, secondary to poor contrast bolus timing. The heart is enlarged. There is no mediastinal, hilar, or axillary lymphadenopathy. Moderate bilateral pleural effusions are present, increased since the prior exam. There are bilateral lower lobe, lingular, and right middle lobe ground glass opacities, favor pulmonary edema. No acute osseous abnormality. IMPRESSION: No evidence of pulmonary embolism. Aortic dissection cannot be excluded secondary to a nondiagnostic study. Enlarged heart with moderate bilateral pleural effusions increased since the prior exam, and bilateral ground glass opacities. Favor congestive heart failure and pulmonary edema. Reviewed, Interpreted and Dictated by Judy Estrella MD Transcribed by Faustina Tucker Authenticated and [facility]
--- NOTE | 2025-04-13 12:54 | PC.NURSE ---
Multiple attempts have been made to establish an IV by RN's and Medic. They have all been unsuccessful. Beena HUGHES attempted to draw blood from his R PICC but was unsuccessful. The PICC flushes but is difficult to flush. This has all caused a delay in obtaining labs.
--- NOTE | 2025-04-13 13:00 | HMH.EDGENADL ---
Discharge Plan Disposition Patient Disposition: Xfer [facility] Prescriptions Prescriptions: No Action atorvastatin 40 mg tablet 40 mg PO DAILY 90 Days Qty: 90 Patient Comments: TAKE 1 TABLET BY MOUTH AT BEDTIME duloxetine 60 mg capsule,delayed release(DR/EC) 60 mg PO DAILY donepezil [Aricept] 5 mg tablet 5 mg PO HS acetaminophen [Tylenol Extra Strength] 500 mg tablet 500 mg PO Q6HP PRN (Reason: Mild Pain (Scale Score 1-4)) cholecalciferol (vitamin D3) 125 mcg (5,000 unit) capsule 125 mcg PO DAILY ascorbic acid (vitamin C) 500 mg capsule 1,000 mg PO DAILY tamsulosin 0.4 MG capsule 0.4 mg PO HS metformin 1,000 mg tablet 500 mg PO BIDWMEAL amiodarone 200 mg tablet 200 mg PO DAILY midodrine 5 mg tablet 5 mg PO TID spironolactone 25 mg tablet 25 mg PO DAILY Eliquis 5 mg tablet 5 mg PO BID bumetanide 1 mg Tablet 1 mg PO DAILY 30 Days Qty: 30 0RF cyproheptadine 4 mg Tablet 4 mg PO HS Rx Instructions: ONE HOUR BEFORE BEDTIME Referrals Follow up/Referrals: Provider,Referral, MD [Primary Care Provider, Medical] - See instructions Activity Restrictions/Add. Instructions Additional Instructions/Restrictions: At this time it was felt you are safe to be discharged home. If new or worsening symptoms please do not hesitate to return the emergency department. Please take your Bumex twice a day for the next 4 days and have the doctor at [facility] on you to ensure that you are making enough urine to get the excess water off of you. Please complete one of the bowel cleanout protocol severe constipatio. There was a very large cyst found in your right kidney which I do not think is causing any problems right now but someone needs to keep an eye on this and work it up for continued evaluation. Clinical Impressions Clinical Impression: Hyponatremia, Anemia, Abdominal pain, Constipation, Acute exacerbation of CHF (congestive heart failure), Bilateral pleural effusion, Complex renal cyst Instructions Patient Instructions: DI for Acute Abdominal Pain Print Language Print Language: Belarusian Discharge ED Provider: Antwan Brian General Adult HPI <Abbey Moreau, - Last Filed: 04/13/25 15:11> General Chief complaint: Abdominal Pain Stated complaint: SOA Time Seen by Provider: 04/13/25 12:14 Mode of Arrival: EMS Source of Information: Patient Limitations: Physical Limitations Description of Symptoms (Recalled from ER Triage Doc. by RN): pt c/o constipation, he states his last BM was 5d ago or longer. pt reports some abd pain and nausea. [place] reports he was SOA and had a 5lb weight gain with a hx of CHF. They placed him on 3LNC with a baseline of 2LNC. pts oxygen saturation is 96% on arrival when placed on his 2L. pt states he is no more SOA than his baseline. History of Present Illness HPI narrative: This patient is an 89-year-old male with a history of Atrial fibrillation on Eliquis, CHF, diabetes, NIGHAT, hypertension presenting to the emergency department for evaluation with concern for lower abdominal discomfort, constipation, nausea, poor appetite. EMS was called to [facility] because of a 5 pound weight gain, pressure in his chest, and shortness of breath. They increased his nasal cannula from 2-3 reportedly because of increased shortness of breath. Patient states that he thinks that he is short of breath because he feels pressure coming from his abdomen, which is distended secondary to not having bowel movement in 5 days. He denies any fever, cough, vomiting, urinary symptoms, or other concerns. Related Data Home Medications ?Medication ?Instructions ?Recorded ?Confirmed tamsulosin 0.4 mg capsule 0.4 mg PO HS 03/12/18 02/14/25 duloxetine 60 mg capsule,delayed 60 mg PO DAILY 02/14/23 02/14/25 release acetaminophen 500 mg tablet 500 mg PO Q6HP PRN Mild Pain 04/16/23 02/14/25 (Tylenol Extra Strength) (Scale Score 1-4) ascorbic acid (vitamin C) 500 mg 1,000 mg PO DAILY 04/16/23 02/14/25 capsule atorvastatin 40 mg tablet 40 mg PO DAILY 90 days #90 tabs 04/16/23 02/14/25 cholecalciferol (vitamin D3) 125 125 mcg PO DAILY 04/16/23 02/14/25 mcg (5,000 unit) capsule donepezil 5 mg tablet (Aricept) 5 mg PO HS 04/16/23 02/14/25 amiodarone 200 mg tablet 200 mg PO DAILY 10/21/24 02/15/25 apixaban 5 mg tablet (Eliquis) 5 mg PO BID 10/21/24 02/14/25 metformin 1,000 mg tablet 500 mg PO BIDWMEAL 10/21/24 02/14/25 midodrine 5 mg tablet 5 mg PO TID 10/21/24 02/14/25 spironolactone 25 mg tablet 25 mg PO DAILY 10/21/24 02/15/25 cyproheptadine 4 mg tablet 4 mg PO HS 02/15/25 02/15/25 Previous Rx's ?Medication ?Instructions ?Recorded bumetanide 1 mg tablet 1 mg PO DAILY 30 days #30 tabs 10/23/24 Allergies Allergy/AdvReac Type Severity Reaction Status Date / Time tetanus and diphtheria Allergy Intermediate I-HIVES Verified 04/13/25 12:53 toxoids (TETANUS & DIPHTHERIA TOXOIDS) [facility] <Abbey Moreau DO - Last Filed: 04/13/25 15:11> [facility] Disclaimer: The information contained in this section may have been updated after the patient was seen, as this information can be updated by other users. Medical History Acute exacerbation of CHF (congestive heart failure) Hypoxia Volume overload Acute exacerbation of CHF (congestive heart failure) Influenza A Respiratory failure Cough Influenza Onychodystrophy Lymphedema of both lower extremities Edema of both lower extremities Chest pain Headache Urticarial rash Lymphadenopathy, mesenteric Headache, cervicogenic Cervical radiculopathy Bilateral shoulder pain Generalized weakness Body fluid retention Chronic daily headache Typical angina Diabetes mellitus Pre-ulcerative calluses History of cardioversion Shingles Kidney stones Atrial fibrillation Allergic rhinitis HFrEF (heart failure with reduced ejection fraction) BMI greater than 30 BPH (benign prostatic hyperplasia) Enlarged prostate Depression CHF (congestive heart failure) Episodic migraine NIGHAT (obstructive sleep apnea) 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 Diabetic neuropathy Diabetes Acquired hammertoe of right foot Acquired hammertoe of left foot Pneumonia Shortness of breath Hypertension High anion gap metabolic acidosis Cervicogenic headache Hearing loss Tinnitus of both ears Surgical History History of coronary artery stent placement History of appendectomy History of right hip replacement History of knee replacement Family History Other Unknown family medical history Social History Smoking Status: Never smoker alcohol intake: never substance use type: denies use current occupational status: retired Travel in the last 8 weeks?: None housing: house lives independently: Yes marital status: current occupational exposures/hazards: No caffeine: Yes Have you lived/traveled outside [place] in past 30 days?: No Contact w/someone who lives/traveled outside US past 30 days?: No Exposure to someone with infectious disease in past 14 days?: No Do you have a fever (greater than 100.4 F or 38 C)?: No Have you tested positive for COVID-19?: No Exposed to someone with COVID-19 in past 14 days?: No Do you have a sore throat?: No Do you have a cough?: No Do you have any weakness?: No Do you have any diarrhea?: No Are you experiencing any unusual bleeding?: No Do you have any muscle aches/pain?: No Do you have any abdominal pain?: No Are you experiencing loss of taste or smell?: No Other Medical History Have you received the Flu Vaccine for this season: No Have you received the Pneumonia Vaccine: No <Abbey Moreau DO - Last Filed: 04/13/25 15:11> ROS Obtained: Yes All systems reviewed & no additional complaints except as documented Physical Exam <Abbey Moreau DO - Last Filed: 04/13/25 15:11> General General appearance: alert, in no apparent distress and obese Head Head exam: atraumatic and normocephalic Eye Eye exam: Present normal appearance, PERRL and EOMI ENT ENT exam: Present normal exam, normal oropharynx, mucous membranes moist and normal external ear exam Neck Neck exam: Present normal inspection, full ROM and trachea midline; Absent tenderness Chest Chest inspection: Present normal inspection and symmetric chest wall rise; Absent tenderness Respiratory Respiratory exam: Present normal lung sounds bilaterally; Absent respiratory distress, wheezes, stridor or accessory muscle use Cardiovascular Cardiovascular exam: Present regular rate and normal rhythm Abdominal Exam Abdominal exam: Present soft, distention and tenderness (Lower abdomen); Absent guarding, rebound or rigidity Extremities Exam Extremities exam: Present normal inspection, full ROM, normal capillary refill and edema (Pitting edema in the lower extremities is symmetric); Absent tenderness Back Exam Back exam: Present normal inspection and full ROM; Absent tenderness Neurological Exam Neurological exam: Present alert, oriented X3 and CN II-XII intact; Absent motor sensory deficit Psychiatric Psychiatric exam: Present normal affect and normal mood Skin Skin exam: Present warm and dry Medical Decision Making <Abbey Moreau, DO - Last Filed: 04/13/25 15:11> Medical Records Medical records reviewed: Yes I reviewed the patient's medical records. Screening: Per USPSTF and CDC recommendations, given the prevalence of disease in our region, it is our hospital?s policy to screen for HIV and viral Hepatitis for all patients aged 18 and over and those with ongoing risk factors. Jose Antonio Inquiry Pt receiving controlled substance: No Vital Signs: 04/13/25 12:18 04/13/25 12:34 04/13/25 13:30 Temperature 98 F Temperature Source Oral Pulse Rate 60 66 Pulse Rate [Left] 88 Respiratory Rate 18 22 20 Blood Pressure 121/96 H 135/90 Blood Pressure [Right Arm] 121/96 H Blood Pressure Mean 117 Blood Pressure Mean [Right Arm] 104 Blood Pressure Source [Right Arm] Automatic Cuff Blood Pressure Position [Right Arm] Sitting 02 Sat by Pulse Oximetry 96 94 L 96 Oxygen Delivery Method Nasal Cannula Oxygen Flow Rate (LPM) 2 04/13/25 14:01 04/13/25 14:31 04/13/25 15:01 Temperature Temperature Source Pulse Rate 87 79 82 Pulse Rate [Left] Respiratory Rate 19 22 22 Blood Pressure 141/105 H 113/60 125/100 H Blood Pressure [Right Arm] Blood Pressure Mean 113 77 Blood Pressure Mean [Right Arm] Blood Pressure Source [Right Arm] Blood Pressure Position [Right Arm] 02 Sat by Pulse Oximetry 97 97 98 Oxygen Delivery Method Oxygen Flow Rate (LPM) 04/13/25 15:27 04/13/25 15:30 04/13/25 16:01 Temperature Temperature Source Pulse Rate 66 88 98 H Pulse Rate [Left] Respiratory Rate 15 24 18 Blood Pressure 104/67 L 113/80 104/72 L Blood Pressure [Right Arm] Blood Pressure Mean Blood Pressure Mean [Right Arm] Blood Pressure Source [Right Arm] Blood Pressure Position [Right Arm] 02 Sat by Pulse Oximetry 98 97 92 L Oxygen Delivery Method Oxygen Flow Rate (LPM) Lab Data Lab results reviewed: Yes I reviewed the patient's lab results. Lab Results 04/13/25 13:05: WBC 6.0, RBC 3.23 L, Hgb 9.4 L, Hct 29.5 L, MCV 91.3, MCH 29.1, MCHC 31.9, RDW 15.6, Plt Count 274, MPV 10.0, Neut % (Auto) 75.9, Lymph % (Auto) 13.4, [place] % (Auto) 9.2, Eos % (Auto) 0.7, Baso % (Auto) 0.3, Neut # (Auto) 4.5, Lymph # (Auto) 0.8, [place] # (Auto) 0.6, Eos # (Auto) 0.0, Baso # (Auto) 0.0, Sodium 130 L, Potassium 4.1, Chloride 95 L, Carbon Dioxide 28, Anion Gap 11.1, BUN 26 H, Creatinine 0.90, Estimated Creat Clear 94, Estimated GFR 80, Est GFR ( Amer) 97, Glucose 179 H, Calcium 8.8, Total Bilirubin 0.5, AST 45, ALT 14, Alkaline Phosphatase 310 H, Troponin I < 0.01, NT-Pro-B Natriuret Pep 54984 H, Total Protein 6.3, Albumin 3.6, Globulin 2.7, Albumin/Globulin Ratio 1.3, Lipase 31 04/13/25 15:17: Troponin I < 0.01 04/13/25 13:05 04/13/25 13:05 Orders (Tests/Meds): ED MEDICATIONS Discontinued Medications Generic Name Dose Route Start Last Admin Trade Name Nixon PRN Reason Stop Dose Admin Bumetanide 2 mg 04/13/25 13:49 04/13/25 13:57 Bumetanide 1mg/4ml Vial IV 04/13/25 13:50 2 mg ONCE ONE Administration Iopamidol 85 ml 04/13/25 13:47 04/13/25 13:48 Iopamidol-370 (76%);100ml Bottle IV 04/13/25 13:48 85 ml ONCE ONE Administration Ondansetron HCl 4 mg 04/13/25 12:24 04/13/25 13:11 Ondansetron 4mg/2ml Vial IV 04/13/25 12:25 4 mg ONCE ONE Administration Sodium Chloride 10 ml 04/13/25 13:47 04/13/25 13:48 Sodium Chloride 0.9% 10ml Syr (Rad Only) IV 04/13/25 13:48 10 ml ONCE ONE Administration Sodium Chloride 50 ml 04/13/25 13:47 04/13/25 13:48 0.9 % Sodium Chloride 50 Ml Vial IV 04/13/25 13:48 50 ml ONCE ONE Administration ORDERS Category Date Time Status CT abdomen pelvis w con Stat Cat Scan 04/13/25 12:23 Completed CTA Chest [CT angio chest PE protocol] Stat Cat Scan 04/13/25 12:23 Completed BNP [NT Pro Brain Natriuretic Pep.] Stat Lab 04/13/25 13:05 Completed Complete Blood Count Auto Diff Stat Lab 04/13/25 13:05 Completed Comprehensive Metabolic Panel Stat Lab 04/13/25 13:05 Completed Lipase Stat Lab 04/13/25 13:05 Completed Trop I [Troponin I] Stat Lab 04/13/25 13:05 Completed Troponin I Q3H Lab 04/13/25 15:17 Completed Troponin I Q3H Lab 04/13/25 18:30 Ordered ECG Data Tracing #1: I reviewed this ECG and interpreted as documented below: Atrial fibrillation with a ventricular rate of 88 bpm. Left bundle branch block without acute STEMI ECG initial impression date: 04/13/25 ECG initial impression time: 12:13 Medical Decision Narrative: In summary, this patient is a 89-year-old male presenting to the Emergency Department for evaluation of abdominal distention, bloating, nausea, poor appetite, constipation, chest heaviness, and shortness of breath. Differential diagnoses considered include but are not limited to constipation, bowel obstruction, colitis, fecal impaction, ACS, CHF exacerbation, dysrhythmia. Ruling out the most morbid conditions drove assessment. It should be noted patient's history includes atrial fibrillation on Eliquis, NIGHAT, CHF, diabetes, hypertension which may or may not be at goal therapy. This complicates all aspects of care by increasing patient's risk for morbidity. I reviewed patient's past medical records and noted prior admission for hip effusion awaiting transfer for further evaluation of possible septic joint back in February. On exam, the patient is lying in bed in no acute distress. He has no increased work of breathing and vitals are reassuring on cardiac telemetry on his home O2. Cardiopulmonary exam is reassuring. He has some lower abdominal tenderness with abdominal distention, but no rebound, guarding, or rigidity. Workup included CBC, CMP, lipase, troponin, BNP, CTA chest, CT abdomen pelvis with IV contrast, EKG. EKG obtained is reassuring. He was given IV Zofran for symptomatic improvement of nausea. I independently interpreted CT scans prior to the radiologist read and noted bilateral pleural effusions, moderate stool burden with no obstructive process, no fecal impaction. Please see their read for final interpretation. Labs were obtained that demonstrated mild new anemia with a hemoglobin of 9.4 from most recent of 12. He also has mild acute on chronic hyponatremia with a sodium of 130 from 134. Expect this is likely dilutional in setting of volume overload related to heart failure. He was given 2 mg of IV Bumex here. On reassessment, the patient is resting comfortably on his home oxygen. CT reads pending at time of signout to oncoming provider, Dr. Brian. <Antwan Brian MD - Last Filed: 04/13/25 16:39> Vital Signs: 04/13/25 12:18 04/13/25 12:34 04/13/25 13:30 Temperature 98 F Temperature Source Oral Pulse Rate 60 66 Pulse Rate [Left] 88 Respiratory Rate 18 22 20 Blood Pressure 121/96 H 135/90 Blood Pressure [Right Arm] 121/96 H Blood Pressure Mean 117 Blood Pressure Mean [Right Arm] 104 Blood Pressure Source [Right Arm] Automatic Cuff Blood Pressure Position [Right Arm] Sitting 02 Sat by Pulse Oximetry 96 94 L 96 Oxygen Delivery Method Nasal Cannula Oxygen Flow Rate (LPM) 2 04/13/25 14:01 04/13/25 14:31 04/13/25 15:01 Temperature Temperature Source Pulse Rate 87 79 82 Pulse Rate [Left] Respiratory Rate 19 22 22 Blood Pressure 141/105 H 113/60 125/100 H Blood Pressure [Right Arm] Blood Pressure Mean 113 77 Blood Pressure Mean [Right Arm] Blood Pressure Source [Right Arm] Blood Pressure Position [Right Arm] 02 Sat by Pulse Oximetry 97 97 98 Oxygen Delivery Method Oxygen Flow Rate (LPM) 04/13/25 15:27 04/13/25 15:30 04/13/25 16:01 Temperature Temperature Source Pulse Rate 66 88 98 H Pulse Rate [Left] Respiratory Rate 15 24 18 Blood Pressure 104/67 L 113/80 104/72 L Blood Pressure [Right Arm] Blood Pressure Mean Blood Pressure Mean [Right Arm] Blood Pressure Source [Right Arm] Blood Pressure Position [Right Arm] 02 Sat by Pulse Oximetry 98 97 92 L Oxygen Delivery Method Oxygen Flow Rate (LPM) Lab Data Lab Results 04/13/25 13:05: WBC 6.0, RBC 3.23 L, Hgb 9.4 L, Hct 29.5 L, MCV 91.3, MCH 29.1, MCHC 31.9, RDW 15.6, Plt Count 274, MPV 10.0, Neut % (Auto) 75.9, Lymph % (Auto) 13.4, [place] % (Auto) 9.2, Eos % (Auto) 0.7, Baso % (Auto) 0.3, Neut # (Auto) 4.5, Lymph # (Auto) 0.8, [place] # (Auto) 0.6, Eos # (Auto) 0.0, Baso # (Auto) 0.0, Sodium 130 L, Potassium 4.1, Chloride 95 L, Carbon Dioxide 28, Anion Gap 11.1, BUN 26 H, Creatinine 0.90, Estimated Creat Clear 94, Estimated GFR 80, Est GFR ( Amer) 97, Glucose 179 H, Calcium 8.8, Total Bilirubin 0.5, AST 45, ALT 14, Alkaline Phosphatase 310 H, Troponin I < 0.01, NT-Pro-B Natriuret Pep 82870 H, Total Protein 6.3, Albumin 3.6, Globulin 2.7, Albumin/Globulin Ratio 1.3, Lipase 31 04/13/25 15:17: Troponin I < 0.01 Orders (Tests/Meds): ED MEDICATIONS Discontinued Medications Generic Name Dose Route Start Last Admin Trade Name Freq PRN Reason Stop Dose Admin Bumetanide 2 mg 04/13/25 13:49 04/13/25 13:57 Bumetanide 1mg/4ml Vial IV 04/13/25 13:50 2 mg ONCE ONE Administration Iopamidol 85 ml 04/13/25 13:47 04/13/25 13:48 Iopamidol-370 (76%);100ml Bottle IV 04/13/25 13:48 85 ml ONCE ONE Administration Ondansetron HCl 4 mg 04/13/25 12:24 04/13/25 13:11 Ondansetron 4mg/2ml Vial IV 04/13/25 12:25 4 mg ONCE ONE Administration Sodium Chloride 10 ml 04/13/25 13:47 04/13/25 13:48 Sodium Chloride 0.9% 10ml Syr (Rad Only) IV 04/13/25 13:48 10 ml ONCE ONE Administration Sodium Chloride 50 ml 04/13/25 13:47 04/13/25 13:48 0.9 % Sodium Chloride 50 Ml Vial IV 04/13/25 13:48 50 ml ONCE ONE Administration ORDERS Category Date Time Status CT abdomen pelvis w con Stat Cat Scan 04/13/25 12:23 Completed CTA Chest [CT angio chest PE protocol] Stat Cat Scan 04/13/25 12:23 Completed BNP [NT Pro Brain Natriuretic Pep.] Stat Lab 04/13/25 13:05 Completed Complete Blood Count Auto Diff Stat Lab 04/13/25 13:05 Completed Comprehensive Metabolic Panel Stat Lab 04/13/25 13:05 Completed Lipase Stat Lab 04/13/25 13:05 Completed Trop I [Troponin I] Stat Lab 04/13/25 13:05 Completed Troponin I Q3H Lab 04/13/25 15:17 Completed Troponin I Q3H Lab 04/13/25 18:30 Ordered Medical Decision Narrative: In summary, this patient is a 89-year-old male presenting to the Emergency Department for evaluation of abdominal distention, bloating, nausea, poor appetite, constipation, chest heaviness, and shortness of breath. Differential diagnoses considered include but are not limited to constipation, bowel obstruction, colitis, fecal impaction, ACS, CHF exacerbation, dysrhythmia. Ruling out the most morbid conditions drove assessment. It should be noted patient's history includes atrial fibrillation on Eliquis, NIGHAT, CHF, diabetes, hypertension which may or may not be at goal therapy. This complicates all aspects of care by increasing patient's risk for morbidity. I reviewed patient's past medical records and noted prior admission for hip effusion awaiting transfer for further evaluation of possible septic joint back in February. On exam, the patient is lying in bed in no acute distress. He has no increased work of breathing and vitals are reassuring on cardiac telemetry on his home O2. Cardiopulmonary exam is reassuring. He has some lower abdominal tenderness with abdominal distention, but no rebound, guarding, or rigidity. Workup included CBC, CMP, lipase, troponin, BNP, CTA chest, CT abdomen pelvis with IV contrast, EKG. EKG obtained is reassuring. He was given IV Zofran for symptomatic improvement of nausea. I independently interpreted CT scans prior to the radiologist read and noted bilateral pleural effusions, moderate stool burden with no obstructive process, no fecal impaction. Please see their read for final interpretation. Labs were obtained that demonstrated mild new anemia with a hemoglobin of 9.4 from most recent of 12. He also has mild acute on chronic hyponatremia with a sodium of 130 from 134. Expect this is likely dilutional in setting of volume overload related to heart failure. He was given 2 mg of IV Bumex here. On reassessment, the patient is resting comfortably on his home oxygen. CT reads pending at time of signout to oncoming provider, Dr. Brian. Antwan Brian: Upon assumption of care patient was hemodynamically stable workup thus far reviewed by me, no transfusable anemia, no significant leukocytosis, hyponatremia that is mildly worse compared to baseline no CHANTAL or critical electrolyte abnormality, initial troponin undetectably low significantly elevated BNP consistent with patient's history of heart failure. CT of abdomen pelvis has a complex cyst in the upper pole of the right kidney consider CT renal mass protocol with body wall anasarca and in the chest no evidence of pulmonary embolism, enlarged heart with moderate bilateral pleural effusions increased from prior exam. This is all consistent with patient's volume overloaded state for which he has already gotten 2 mg of Bumex here and his shortness of breath is almost certainly from his heart failure. Upon repeat evaluation patient was at his baseline oxygen requirement and he had good urine output after Bumex. He was resting comfortably in bed. I suspect all of his problems are from his volume overload. In terms of his constipation he does not have a bowel obstruction and can complete this at the snf. Critical Care <Abbey Moreau, DO - Last Filed: 04/13/25 15:11> Critical Care Time Critical Care Time: No
[2025-04-13] MEDS: ONDANSETRON 4MG/2ML VIAL 4 MG IV (13:11)
[2025-04-13 13:16] LABS: Hematocrit 29.5 % (42.0-52.0); Hemoglobin 9.4 g/dL (14.1-18.0); Immature Granulocytes % 0.5 %; Mean Corpuscular HGB Conc 31.9 g/dL (31.8-35.4); Mean Corpuscular Hemoglobin 29.1 pg (27.0-31.2); Mean Corpuscular Volume 91.3 fl (80-94); Nucleated Red Blood Cells % 0 %; Platelet Count 274 K/mm3 (142-424); Red Blood Count 3.23 M/mm3 (4.60-6.20); Red Cell Distribution Width-SD 51.9 fL; White Blood Count 6.0 K/mm3 (4.8-10.8)
[2025-04-13 13:28] LABS: Alanine Aminotransferase 14 U/L (12-78); Albumin Level 3.6 g/dl (3.5-5.0); Albumin/Globulin Ratio 1.3 (1.1-1.8); Alkaline Phosphatase 310 U/L (38-126); Anion Gap 11.1 mEq/L (5-15); Aspartate Amino Transferase 45 U/L (17-59); Bilirubin,Total 0.5 mg/dl (0.2-1.3); Blood Urea Nitrogen 26 mg/dl (9-20); Calcium 8.8 mg/dl (8.4-10.2); Carbon Dioxide 28 mmol/L (22.0-30.0); Chloride 95 mmol/L (98-107); Creatinine Clearance Estimated 94 mL/min (50-200); Creatinine,Serum 0.90 mg/dl (0.66-1.25); Estimated Glomerular Filt Rate 80 ml/min (>60); GFR (African American) 97 ML/MIN (>60); Globulin 2.7 g/dL (1.3-3.2); Glucose 179 mg/dl (74-100); Lipase 31 U/L (23-300); Potassium 4.1 mmoL/L (3.5-5.1); Sodium 130 mmol/L (136-145); Total Protein,Serum 6.3 g/dl (6.3-8.2)
[2025-04-13 13:42] LABS: NT Pro Brain Natriuretic Pep. 13700 pg/mL (0-450)
[2025-04-13 13:44] LABS: Troponin I < 0.01 ng/ml (0.00-0.034)
[2025-04-13] MEDS: SODIUM CHLORIDE 0.9% 10ML SYR (RAD ONLY) 10 ML IV (13:48)
[2025-04-13] MEDS: IOPAMIDOL-370 (76%);100ML BOTTLE 85 ML IV (13:48)
[2025-04-13] MEDS: 0.9 % SODIUM CHLORIDE 50 ML VIAL IV (13:48)
[2025-04-13] MEDS: BUMETANIDE 1MG/4ML VIAL 2 MG IV (13:57)
[2025-04-13 15:46] LABS: Troponin I < 0.01 ng/ml (0.00-0.034)
--- NOTE | 2025-04-13 15:53 | PC.NURSE ---
I called radiology and spoke with Marcela inquiring on the status of the pts scans. She is going to send the prelim for the pts chest CTA and states the abd CT is locked and being read.
--- NOTE | 2025-04-13 17:04 | PC.NURSE ---
Spoke to Octavio reyez at [facility] and gave report. Awaiting transport back to [facility].
== END 2025-04-13 17:36 ==
PROVIDERS: Emergency Medicine; Emergency Provider Emergency Medicine
DX: R10.30 Lower abdominal pain, unspecified (principal); E87.1 Hypo-osmolality and hyponatremia; I50.9 Heart failure, unspecified; J90 Pleural effusion, not elsewhere classified; D64.9 Anemia, unspecified; N28.1 Cyst of kidney, acquired; I11.0 Hypertensive heart disease with heart failure
CPT/HCPCS: 71275; 74177; 80053; 83690; 83880; 84484; 85025; 93005; 96374; 96375; 99285; J1939; J2405; Q9967